=== PATIENT | female | born 1965 | race Caucasian/White ===

== ENCOUNTER 2023-11-21 07:43 | Outpatient (CLI) | payer MEDICARE, SELFPAY ==
--- NOTE | 2023-11-21 07:30 | RT.EKG_ITS ---
APPROVED REPORT Exam: Resting ECG Reason for Exam: afib Patient Location: O HR:112 bpm ECG Measurements Heart Rate 112 AXIS DE 126 P 61 QRSd 131 QRS 1 QT 346 T 146 QTc 473 Conclusion Sinus tachycardia...rate> 99 Probable left atrial enlargement...P >50mS, <-0.10mV V1 Left bundle branch block...QRSd>120, broad/notched R
== END 2023-11-21 07:44 | disposition home or self-care (01) ==
LOC: DI.CARD 07:44
PROVIDERS: PCP Family Medicine; Visit Provider Internal Medicine Cardiovascular Disease
DX: I25.10 Atherosclerotic heart disease of native coronary artery without angina pectoris
CPT/HCPCS: 93010

== ENCOUNTER → 2023-11-21 11:15 | Outpatient (BNVA) | payer MEDICARE, SELFPAY | PROVIDERS: PCP Family Medicine; Referring Provider Family Medicine; Visit Provider Internal Medicine Cardiovascular Disease | DX: I44.7 Left bundle-branch block, unspecified (principal); Z95.2 Presence of prosthetic heart valve; I48.20 Chronic atrial fibrillation, unspecified; I25.10 Atherosclerotic heart disease of native coronary artery without angina pectoris | CPT/HCPCS: 93005; 99203 ==

== ENCOUNTER 2023-11-28 07:08 | Emergency (ER) | payer MEDICARE, SELFPAY ==
[2023-11-28] VITALS (12 sets, daily range): BP systolic 121–150; BP diastolic 29–86; PULSE 81–114; RESP 4–37; TEMP 37.2; O2SAT 86–94
--- NOTE | 2023-11-28 07:00 | DI.RAD_ITS ---
Exam(s) XR PORTABLE CHEST AP EXAM: XR PORTABLE CHEST AP CLINICAL HISTORY: sob. TECHNIQUE: 2D digital imaging was performed. COMPARISON: No exams were available for comparison FINDINGS: Single AP portable view. Mild cardiomegaly and there is an aortic valve TAVR noted. Bilateral pulmonary edema pattern is evident. No large pleural effusions. IMPRESSION: Pulmonary edema. Cardiomegaly. Aortic valve TAVR DATA REPOSITORY: RADIATION DOSE DELIVERED:
--- NOTE | 2023-11-28 07:00 | RT.EKG_ITS ---
APPROVED REPORT Exam: Resting ECG Reason for Exam: SOB Patient Location: E HR:114 bpm ECG Measurements Heart Rate 114 AXIS [place] 129 P 97 QRSd 148 QRS 75 QT 359 T -79 QTc 494 Conclusion Sinus tachycardia...rate> 99 Left atrial enlargement...P, P'>60mS, <-0.15mV V1 IVCD, consider LBBB...QRSd>120, notch/slur R I aVL V5-6 ST elevation secondary to IVCD...Multiple VCG criteria Physician: LBBB, 4-5mm discordant elevation in V2 and 1mm concordant depression in V5 (but not V1-3). Review w/ [facility], does not meet abhia criterion
[2023-11-28] MEDS: methylPREDNISolone SUCC 125 MG VIAL IVP (07:30)
[2023-11-28] MEDS: Albuterol/Ipratropium 3 ML UPD VIAL 6 ML UPD (07:30)
[2023-11-28 07:33] LABS: HCT 34.4 % (36.0-46.0); HGB 11.1 g/dL (11.2-15.7); MCH 30.2 pg (27.0-33.0); MCHC 32.3 % (32.0-36.0); MCV 94 fL (80-95); MPV 11.5 fL (8.0-11.0); Platelet Count 297 10^3/uL (130-400); RBC 3.67 10^6/uL (3.93-5.22); RDW 14.7 % (11.7-14.6); RDW-SD 51.4 fL; WBC 14.67 10^3/uL (4.4-10.8)
--- NOTE | 2023-11-28 07:35 | W.ED.GENAD ---
Discharge Plan Disposition Patient Disposition: Transfer-Acute Inpatient Care Specific Acute Inpt Facility: [facility] Condition: Serious Discharge Details Clinical Impression: Congestive heart failure, Non-ST elevation [place] (NSTEMI), Acute respiratory distress, Acute exacerbation of chronic obstructive pulmonary disease Primary Care Provider: Gaudencio Scales ED Provider: Blaze Randall Home Meds and New Rx's Prescriptions: No Action metoprolol tartrate 25 mg tablet 25 mg PO BID aspirin [Adult Low Dose Aspirin] 81 mg tablet,delayed release (DR/EC) 81 mg PO DAILY Qty: 90 4RF amlodipine 10 mg tablet 10 mg PO DAILY Qty: 90 3RF atorvastatin 40 mg tablet 40 mg PO DAILY Qty: 90 3RF baclofen 10 mg tablet 5 mg PO BID Qty: 90 3RF furosemide 20 mg tablet 20 mg PO DAILY Qty: 90 3RF ondansetron HCl 4 mg tablet 8 mg PO DAILY PRN (Reason: nausea and vomiting) Qty: 90 0RF Eliquis 5 mg tablet 5 mg PO BID levothyroxine 100 mcg tablet 100 mcg PO DAILY famotidine 40 mg tablet 40 mg PO DAILY Hold Instructions: Home Medication placed on hold at Doctor's office Fish Oil 300-500 mg capsule 1 cap PO DAILY Patient Comments: Did not disclose exact type and dose ferrous sulfate 325 mg (65 mg iron) tablet,delayed release (DR/EC) 325 mg PO DAILY Patient Comments: Patient did not disclose exact dosage multivitamin Tablet 1 tab PO DAILY cholecalciferol (vitamin D3) 25 mcg (1,000 unit) capsule 25 mcg PO DAILY isosorbide dinitrate 30 mg tablet 30 mg PO DAILY Qty: 90 3RF ranolazine 500 mg tablet extended release 12 hr 500 mg PO BID Qty: 180 3RF omeprazole 40 mg capsule,delayed release(DR/EC) 40 mg PO DAILY Qty: 60 0RF oxycodone-acetaminophen 10-325 mg tablet 1 tab PO TID MDD 30 mg PRN (Reason: pain) Qty: 84 0RF quetiapine 100 mg tablet 100 mg PO QHS Qty: 90 3RF lamotrigine 100 mg tablet 100 mg PO BID Qty: 180 3RF HPI General Date/Time Provider Initiated Documentation: 11/28/23 07:11. HPI Narrative: 57-year-old female with a past medical history of bipolar disorder, GERD, atrial fibrillation on Eliquis, COPD not oxygen dependent, chronic kidney disease, hypertension, previous coronary artery disease with stents,TAVR, who presents today for evaluation of shortness of breath. Patient states that for the last 2 days she has had mild episodes of spitting up/vomiting. She states she is only been throwing up bile. However starting last night she got notably short of breath. She has taken an occasional inhaler puff, with no improvement of her symptoms. She denies any abdominal pain, but does admit to some back pain between her shoulders. She denies any tearing or ripping sensation. She denies any chest heaviness. She states that few she feels notably short of breath is unable to take a deep breath. She denies any significant cough otherwise aside for the mild occasional cough. She denies any sputum productivity. She denies any fever. She states that this does not feel like her previous heart attack when she had her stents. No other complaints at this time. No other modifying factors. Related Data Home Medications Medication Instructions Recorded Confirmed apixaban 5 mg tablet (Eliquis) 5 mg PO BID 10/03/23 11/28/23 famotidine 40 mg tablet 40 mg PO DAILY 10/03/23 11/28/23 ferrous sulfate 325 mg (65 mg 325 mg PO DAILY 10/03/23 11/28/23 iron) tablet,delayed release levothyroxine 100 mcg tablet 100 mcg PO DAILY 10/03/23 11/28/23 multivitamin 1 tab PO DAILY 10/03/23 11/28/23 omega-3 fatty acids-fish oil 300 1 cap PO DAILY 10/03/23 11/28/23 mg-500 mg capsule (Fish Oil) cholecalciferol (vitamin D3) 25 25 mcg PO DAILY 10/04/23 11/28/23 mcg (1,000 unit) capsule isosorbide dinitrate 30 mg tablet 30 mg PO DAILY #90 tabs 10/04/23 11/28/23 ranolazine 500 mg tablet,extended 500 mg PO BID #180 tabs 10/04/23 11/28/23 release,12 hr amlodipine 10 mg tablet 10 mg PO DAILY #90 tabs 10/27/23 11/28/23 atorvastatin 40 mg tablet 40 mg PO DAILY #90 tabs 10/27/23 11/28/23 baclofen 10 mg tablet 5 mg (1/2 x 10 mg) PO BID #90 tabs 10/27/23 11/28/23 furosemide 20 mg tablet 20 mg PO DAILY #90 tabs 10/27/23 11/28/23 ondansetron HCl 4 mg tablet 8 mg (2 x 4 mg) PO DAILY PRN 10/28/23 11/28/23 nausea and vomiting #90 tabs aspirin 81 mg tablet,delayed 81 mg PO DAILY #90 tabs 11/21/23 11/28/23 release (Adult Low Dose Aspirin) lamotrigine 100 mg tablet 100 mg PO BID #180 tabs 11/21/23 11/28/23 metoprolol tartrate 25 mg tablet 25 mg PO BID 11/21/23 11/28/23 omeprazole 40 mg capsule,delayed 40 mg PO DAILY #60 caps 11/21/23 11/28/23 release oxycodone-acetaminophen 10 mg-325 1 tab PO TID PRN pain #84 tabs 11/21/23 11/28/23 mg tablet quetiapine 100 mg tablet 100 mg PO QHS #90 tabs 11/21/23 11/28/23 Previous Rx's Medication Instructions Recorded isosorbide dinitrate 30 mg tablet 30 mg PO DAILY #90 tabs 10/04/23 ranolazine 500 mg tablet,extended 500 mg PO BID #180 tabs 10/04/23 release,12 hr amlodipine 10 mg tablet 10 mg PO DAILY #90 tabs 10/27/23 atorvastatin 40 mg tablet 40 mg PO DAILY #90 tabs 10/27/23 baclofen 10 mg tablet 5 mg (1/2 x 10 mg) PO BID #90 tabs 10/27/23 furosemide 20 mg tablet 20 mg PO DAILY #90 tabs 10/27/23 ondansetron HCl 4 mg tablet 8 mg (2 x 4 mg) PO DAILY PRN 10/28/23 nausea and vomiting #90 tabs aspirin 81 mg tablet,delayed 81 mg PO DAILY #90 tabs 11/21/23 release (Adult Low Dose Aspirin) lamotrigine 100 mg tablet 100 mg PO BID #180 tabs 11/21/23 omeprazole 40 mg capsule,delayed 40 mg PO DAILY #60 caps 11/21/23 release oxycodone-acetaminophen 10 mg-325 1 tab PO TID PRN pain #84 tabs 11/21/23 mg tablet quetiapine 100 mg tablet 100 mg PO QHS #90 tabs 11/21/23 Allergies Allergy/AdvReac Type Severity Reaction Status Date / Time No Known Allergies Allergy Verified 11/28/23 07:40 General Stated Complaint: RespSymp AYE: 2 Review of Systems All systems reviewed & are unremarkable except as noted in HPI and below Exam Narrative Exam Narrative: 1.Const: Well-nourished, Well-developed, appearing stated age 2.Eyes: PERRL, no conjunctival injection, and symmetrical lids. 3.ENT: Atraumatic external nose and ears. Dry MM. Neck: Symmetric, trachea midline, No thyromegaly. 4.CVS: +S1/S2, No murmurs or gallops. Peripheral pulses 2+ and equal in all extremities. Brisk capillary refill in all extremities. 5.RESP: Labored breathing, 2-3 word sentences, notable wheezes throughout. No rhonchi that I can auscultate. 6.GI: Soft, Nontender/Nondistended, No hepatosplenomegaly. No guarding or rebound. 7.MSK: Normocephalic/Atraumatic, Extremities w/o deformity or ttp No cyanosis or clubbing, Normal movement of all extremities. Trace pitting edema. 8.Skin: Warm, Dry. No rashes or lesions. 9.Neuro: headend technician II-XII grossly intact. Sensation grossly intact, no focal neurologic deficits. 10.Psych: (AAO) x3. Appropriate mood and affect Course Vital Signs Vital signs: Vital Signs Pulse 114 H 11/28/23 07:09 Respiratory Rate 24 11/28/23 07:09 Blood Pressure 146/29 H 11/28/23 07:09 Pulse Oximetry 86 L 11/28/23 07:09 Temperature 37.2 C 11/28/23 07:34 Temperature Source Axillary 11/28/23 07:34 Pulse 113 H 11/28/23 07:30 Respiratory Rate 32 H 11/28/23 07:30 Respiratory Effort Short of Breath, Labored, Accessory Muscle Use 11/28/23 07:31 Blood Pressure 146/29 H 11/28/23 07:09 Blood Pressure Position Sitting 11/28/23 07:09 Pulse Oximetry 94 11/28/23 07:30 Oxygen Delivery Method OxyMask 11/28/23 07:09 Fraction of Inspired Oxygen (FIO2) 45 11/28/23 07:30 Medical Decision Making 57-year-old female with a past medical history of bipolar disorder, GERD, atrial fibrillation on Eliquis, COPD not oxygen dependent, chronic kidney disease, hypertension, previous coronary artery disease with stents,TAVR, who presents today for evaluation of shortness of breath. Patient states that for the last 2 days she has had mild episodes of spitting up/vomiting. She states she is only been throwing up bile. However starting last night she got notably short of breath. She has taken an occasional inhaler puff, with no improvement of her symptoms. She denies any abdominal pain, but does admit to some back pain between her shoulders. She denies any tearing or ripping sensation. She denies any chest heaviness. She states that few she feels notably short of breath is unable to take a deep breath. She denies any significant cough otherwise aside for the mild occasional cough. She denies any sputum productivity. She denies any fever. She states that this does not feel like her previous heart attack when she had her stents. No other complaints at this time. No other modifying factors. Exam demonstrates a notably tachypneic patient, mild to moderate respiratory distress, hypoxic in the 70s to 80s on room air. Diffuse wheezes throughout. Notable concern for COPD exacerbation and acute respiratory distress, however differential also includes cardiac etiology. Volume overload potentially likely based on presentation. PE unlikely given her Eliquis use. She states that she has not missed any doses. Will give breathing treatments, Solu-Medrol, get a chest x-ray, evaluate for concerning etiologies, monitor closely and reassess. 7:30 AM After brief intervention with breathing treatments and 10 L via nasal cannula patient had no improvement of her symptoms. She remained hypoxic in the mid 80s. BiPAP was started, and the patient had notable improvement with that. She is currently 95% on BiPAP at 45% and 10/5. EKG shows left bundle branch block which is not new, however the morphology appears to be atypical compared to her prior. She has [address] elevation in V2, which does not appear to fully meet Sgarbossa's criteria, but is concerning. She has concordant depression in V5, however this is not in the isolated leads of V1 through V3. With this atypical morphology, we will reach out to cardiology for further assessment of the EKG findings. Will continue to manage the patient aggressively. 7:45 AM Discussed the case with [facility] cardiology Dr. Almonte, upon review of the EKG, it is felt that it does not meet Sgarbossa criteria. 8:24 AM Chest x-ray has returned and demonstrates notable pulmonary edema, bedside POCUS was performed and shows notably diminished ejection fraction around 15 to 20%. 20 mg of IV Lasix were administered. Review of prior ejection fraction shows evidence of a 65% EF from April 2023. This appears to demonstrate notable diminishment. Troponin has returned and he is elevated at 6000. proBNP high at 7000. Concern for ACS. Rediscussed the case with [facility], they recommend transfer for intervention. Patient will be given 325 aspirin, 600 of Plavix, and will be started on heparin. Patient now describes very minimal slight right-sided chest discomfort. We will give low-dose nitro. Patient will be transferred for further management. Patient has a notable improvement of respiratory status after BiPAP administration. Oxygenation is still in the mid to high 90s. She feels much better and no longer feels respiratory distress. I have extensively reviewed the treatment plan with the patient. I have addressed all patient concerns at this time. I have also discussed the plan with the admitting physician and they agree with the current assessment and plan and have agreed to assume responsibility for the patient. All parties demonstrate verbal understanding and agreement with our assessment and plan at this time. The documentation in this chart was dictated using [employer] dictation software. Please excuse any dictation errors. At time of transfer the patient was reassessed and continued to demonstrate No signs of acute respiratory distress requiring intubation, hemodynamic instability requiring pressor support, or rapidly declining mental status. FINDINGS: Single AP portable view. Mild cardiomegaly and there is an aortic valve TAVR noted. Bilateral pulmonary edema pattern is evident. No large pleural effusions. IMPRESSION: Pulmonary edema. Cardiomegaly. Aortic valve TAVR Quality:SDOH Health Related Social Needs: No Data to Display Critical Care Time Critical Care Time Critical Care Time: Yes Total Critical Care Time: 75 Attestation: Upon my evaluation, this patient had a high probability of imminent or life-threatening deterioration, which required my direct attention, intervention, and personal management. I have personally provided 75 minutes of critical care time exclusive of time spent on separately billable procedures. Time includes review of laboratory data, radiology results, discussion with consultants, and monitoring for potential decompensation. Interventions were performed as documented. FORMERLY [facility], [facility] All Active Problems (Updated 11/28/23 @ 08:28 by Blaze Randall DO) Acute exacerbation of chronic obstructive pulmonary disease (Acute) Acute respiratory distress (Acute) Non-ST elevation [place] (NSTEMI) (Acute) Congestive heart failure (Chronic) Bipolar 1 disorder (Acute) GERD (gastroesophageal reflux disease) (Chronic) Family history of breast cancer in first degree relative (Chronic) Sister Family history of coronary artery disease in brother (Acute) Ex-smoker for more than 1 year (Acute) Bipolar disorder (Acute) Hypertension (Chronic) Iron deficiency (Acute) Hypothyroidism (Chronic) Gout (Chronic) Atrial fibrillation (Chronic) Peripheral arterial disease (Acute) Coronary artery disease (Chronic) 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 (Acute) Other cervical disc displacement at C5-C6 level (Acute) Cervicalgia (Acute) 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) use of 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 analgesic (Chronic) Atrial fibrillation, chronic (Chronic) Chronic kidney disease, stage 4 (severe) (Chronic) Essential (primary) hypertension (Chronic) Medical History Hodgkin disease Surgical History S/P TAVR (transcatheter aortic valve replacement) Social History Smoking/Tobacco Use Status: Former Tobacco Use tobacco type: cigarettes Tobacco: How many years used: 30 Smoking risk assessment performed?: Yes Alcohol Intake: never Drug use: Never Adopted: No Caregiver/Support person: No Foster care: No Housing: apartment Number of Children: 2 number of grandchildren: 8 Communication Needs: None Education Level: middle school current occupation: Disabled Pets and animals: No Sexually active: No Current gender identity: female What is your relationship status?: How often do you talk on the phone with friends or family?: three or more times per week How often do you get together with friends or relatives?: once per week Do you belong to any clubs or organized social groups?: no Panel score (0-1 are the most socially isolated patients): 1 What type of physical activity do you participate in: walking Duration: 15-30 minutes/day Frequency: 3-4 times per week Josefa/Methodist: Confucianist Special josefa needs: No Seatbelt use: always Helmet use: No (Sometimes - Never) Drive intox or ride w/intox cdl 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
[2023-11-28 07:39] LABS: BE (Venous) -6 mmol/L (-2-3); HCO3 (Venous) 21 mmol/L (23-28); O2 Sat (Venous) 77 %; TCO2 (Venous) 22 mmol/L (24-29); pCO2 (Venous) 40 mmHg (41-51); pH (Venous) 7.32 (7.31-7.41); pO2 (Venous) 45 mmHg
[2023-11-28 07:45] LABS: INR 1.1 (0.9-1.1); Prothrombin Time 10.6 sec (9.1-11.1)
--- NOTE | 2023-11-28 07:45 | RT.EKG_ITS ---
APPROVED REPORT Exam: Resting ECG Reason for Exam: sob Patient Location: E HR:96 bpm ECG Measurements Heart Rate 96 AXIS [place] 157 P 65 QRSd 144 QRS 59 QT 419 T -45 QTc 529 Conclusion Sinus rhythm...normal P axis, V-rate 60- 99 Probable left atrial enlargement...P >50mS, <-0.10mV V1 Left bundle branch block...QRSd>120, broad/notched R ST elevation secondary to IVCD...Multiple VCG criteria Physician:LBBB, no stemi, does not meet sgarbossa
[2023-11-28 07:49] LABS: Absolute Neutrophil Count 11.44 10^3/uL (1.2-6.7)
[2023-11-28 07:50] LABS: Absolute Lymphocyte Count 2.49 10^3/uL (1.2-3.4); Absolute Monocyte Count 0.73 10^3/uL (0.1-0.8); Atypical Lymphocytes % 8; Diff Comment Manual Differential; RBC Morphology Normal
[2023-11-28] MEDS: Furosemide 20 MG/2 ML VIAL IVP (07:51)
[2023-11-28 08:03] LABS: ALT 24 U/L (14-59); AST 48 U/L (15-37); Albumin 3.4 g/dL (3.4-5.0); Alkaline Phosphatase 121 U/L (46-116); Anion Gap 14.1 mmol/L (3-11); BUN 16 mg/dL (7-18); Bilirubin, Total 0.9 mg/dL (0.2-1.0); CO2 22.9 mmol/L (21.0-32.0); CREATININE 1.5 mg/dL (0.55-1.02); Calcium 9.1 mg/dL (8.5-10.1); Chloride 103 mmol/L (98-107); Estimated GFR 39.89 (mL/min/1.73m2); Glucose 156 mg/dL (74-106); Lipase < 10 U/L (16-77); NT-proBNP 7180 pg/mL (<300); Potassium 3.5 mmol/L (3.5-5.1); Sodium 140 mmol/L (136-145); Total Protein 7.7 g/dL (6.4-8.2)
[2023-11-28 08:04] LABS: Troponin I 6159 ng/L (< or =60)
[2023-11-28 08:13] LABS: COVID-19 PCR Negative (Negative); Influenza A PCR Negative (Negative); Influenza B PCR Negative (Negative); RSV PCR Negative (Negative)
[2023-11-28 08:15] LABS: Source Nasopharynx
[2023-11-28] MEDS: Aspirin 81 MG CHEW 324 MG CH (08:19)
[2023-11-28] MEDS: Clopidogrel 300 MG TAB 600 MG PO (08:19)
[2023-11-28] MEDS: Heparin in 0.45% NaCl 25,000 UNIT/250 ML BAG 0.12 UNIT IV (08:25)
[2023-11-28] MEDS: nitroGLYcerin 0.4 MG TAB SL (08:34)
--- NOTE | 2023-11-28 08:50 | DI.VRAD_ITS ---
PROCEDURE INFORMATION: Exam: XR Chest Exam date and time: 11/28/2023 7:38 AM Age: 57 years old Clinical indication: Shortness of breath; Patient HX: SOB TECHNIQUE: Imaging protocol: Radiologic exam of the chest. Views: 1 view. COMPARISON: No relevant prior studies available. FINDINGS: Lungs: Pulmonary vascular congestion. Increased interstitial markings throughout both lungs. More confluent densities at the lung bases bilaterally. Pleural spaces: Possible left pleural effusion. Heart/Mediastinum: Enlarged cardiac silhouette. Vasculature: Arterial calcifications. Bones/joints: Grossly unremarkable. IMPRESSION: Enlarged cardiac silhouette with pulmonary vascular congestion and increased pulmonary markings suggesting pulmonary edema. More confluent bibasilar opacities may represent atelectasis or infection. Follow-up as clinically warranted. Dictated and Authenticated by: Iqra Morris MD. Ordering:TEENA Thakur MD
== END 2023-11-28 09:27 | disposition short-term general hospital (02) ==
PROVIDERS: Emergency Provider Student in an Organized Health Care Education/Training Program; PCP Family Medicine
DX: I21.4 Non-ST elevation (NSTEMI) myocardial infarction (principal); I13.0 Hypertensive heart and chronic kidney disease with heart failure and stage 1 through stage 4 chronic kidney disease, or unspecified chronic kidney disease; I50.9 Heart failure, unspecified; N18.4 Chronic kidney disease, stage 4 (severe); I25.10 Atherosclerotic heart disease of native coronary artery without angina pectoris; R94.31 Abnormal electrocardiogram [ECG] [EKG]; I44.7 Left bundle-branch block, unspecified; R06.03 Acute respiratory distress; J44.1 Chronic obstructive pulmonary disease with (acute) exacerbation; Z95.2 Presence of prosthetic heart valve; Z95.5 Presence of coronary angioplasty implant and graft; Z11.52 Encounter for screening for COVID-19; Z79.82 Long term (current) use of aspirin; Z79.01 Long term (current) use of anticoagulants; I48.91 Unspecified atrial fibrillation
CPT/HCPCS: 80053; 82805; 83690; 87637; 93005; 93308; 94640; 96374; 99285; 71045; 83880; 84484; 85025; 85610; 85730; 93010; J1644; J1941; J2930; J7620

== ENCOUNTER → 2024-01-13 09:57 | Outpatient (BNVA) | payer MEDICARE, SELFPAY | PROVIDERS: PCP Family Medicine; Referring Provider Family Medicine; Visit Provider Internal Medicine Cardiovascular Disease | DX: I48.0 Paroxysmal atrial fibrillation (principal); Z95.5 Presence of coronary angioplasty implant and graft; Z95.2 Presence of prosthetic heart valve | CPT/HCPCS: 99213 ==

== ENCOUNTER → 2024-01-17 03:48 | Outpatient (CLI) | payer MEDICARE, MEDICAID, SELFPAY ==
--- NOTE | 2024-01-17 08:15 | DI.MAMMO_ITS ---
Exam(s) MAMMO SCREENING EXAM: MAMMO SCREENING CLINICAL HISTORY: screening,FAMILY H/O BREAST CA,Z12.39 TECHNIQUE: Bilateral full field digital CC and MLO mammographic images were obtained with 3D tomosyn thesis and utilizing computer aided detection (CAD). COMPARISON: Available for comparison. FINDINGS: Masses/Architectural Distortion: There is a new 1.1 cm nodule in the upper outer quadrant of the left breast. Microcalcifications: No suspicious pleomorphic-type are seen. Skin Thickening/Nipple Retraction: None. IMPRESSION: 1. New 1.1 cm nodule in the upper outer quadrant of the left breast. 2. This should be further evaluated with spot compression view. Ultrasound should also be obtained a t that time. BI-RADS Category 0 - Assessment Incomplete: Need additional imaging evaluation Breast Density - Category B - Scattered areas of fibroglandular density Breast density category C or D implies that the patient has dense breast tissue. Dense breast tissue is very common and is not abnormal but dense breast tissue can make it harder to find cancer on a ma mmogram. Also, dense breast tissue may increase their breast cancer risk. This information about the result of the mammogram report was provided to the patient to raise their awareness. Use this report when you speak with the patient about their risks for breast cancer, which includes their family hist ory. At that time, you may recommend for more screening tests (Ultrasound or MRI) as they might be us eful based on their risk. A negative radiographic report should not delay biopsy if a dominant or clinically suspicious mass is present. Up to ten percent of cancers are not identified on mammography. A negative report may reinforce clinical impression. Adenosis and dense breasts may obscure an underlying neoplasm. False positive reports average 6 to 10%. Patient will receive a letter notifying them of these results.
--- NOTE | 2024-01-17 17:27 | DI.RAD_ITS ---
Exam(s) XR CERVICAL SPINE COMP 4-5V EXAM: XR CERVICAL SPINE COMP 4-5V CLINICAL HISTORY: OTHER CERVICAL DISC DISPLACEMENT, C 6-7,M50.223. TECHNIQUE: 2D digital imaging was performed. COMPARISON: No exams were available for comparison FINDINGS: Five views. There is no evidence of fracture or listhesis. There is gradual flexion of the cervical spine. Ther e is mild disc space narrowing at C6-7 level. No cervical ribs seen. IMPRESSION: Cervical spine appears to be in gradual flexion. Mild-moderate chronic type disc space narrowing evident at the C6-7 level DATA REPOSITORY: RADIATION DOSE DELIVERED:
== END ==
PROVIDERS: PCP Family Medicine; Visit Provider Family Medicine
DX: Z12.31 Encounter for screening mammogram for malignant neoplasm of breast (principal); M50.123 Cervical disc disorder at C6-C7 level with radiculopathy
CPT/HCPCS: 77063; 77067; 72050

== ENCOUNTER 2024-01-31 05:14 | Outpatient (CLI) | payer MEDICARE, MEDICAID, SELFPAY ==
[2024-01-31 12:05] LABS: Abs Immature Grans 0.01 10^3/uL (0.0-0.06); Absolute Basophil Count 0.04 10^3/uL (0.0-0.2); Absolute Eosinophil Count 0.21 10^3/uL (0.0-0.7); Absolute Lymphocyte Count 4.01 10^3/uL (1.2-3.4); Absolute Monocyte Count 0.68 10^3/uL (0.1-0.8); Absolute Neutrophil Count 3.51 10^3/uL (1.2-6.7); Basophils % 0.5 %; Eosinophils % 2.5 %; HCT 35.1 % (36.0-46.0); HGB 11.3 g/dL (11.2-15.7); Immature Grans % 0.1 %; Lymphocytes % 47.4 %; MCH 30.1 pg (27.0-33.0); MCHC 32.2 % (32.0-36.0); MCV 94 fL (80-95); MPV 11.5 fL (8.0-11.0); Neutrophils % 41.5 %; Platelet Count 315 10^3/uL (130-400); RBC 3.75 10^6/uL (3.93-5.22); RDW 14.4 % (11.7-14.6); RDW-SD 49.6 fL; WBC 8.46 10^3/uL (4.4-10.8)
[2024-01-31 12:23] LABS: ALT 33 U/L (14-59); AST 21 U/L (15-37); Albumin 3.2 g/dL (3.4-5.0); Alkaline Phosphatase 121 U/L (46-116); Anion Gap 7.8 mmol/L (3-11); BUN 21 mg/dL (7-18); Bilirubin, Total 0.4 mg/dL (0.2-1.0); CO2 29.2 mmol/L (21.0-32.0); CREATININE 1.7 mg/dL (0.55-1.02); Calcium 8.7 mg/dL (8.5-10.1); Chloride 107 mmol/L (98-107); Estimated GFR 34.12 (mL/min/1.73m2); Glucose 110 mg/dL (74-106); PHOSPHORUS 4.9 mg/dL (2.6-4.7); Potassium 4.6 mmol/L (3.5-5.1); Sodium 144 mmol/L (136-145); TSH (W/Ref FT4) 6.02 uIU/mL (0.36-3.74); Total Protein 6.8 g/dL (6.4-8.2); Uric Acid 6.8 mg/dL (2.6-6.0)
[2024-01-31 12:44] LABS: FREE T4 0.73 ng/dL (0.76-1.46)
== END 2024-01-31 05:15 | disposition home or self-care (01) ==
LOC: LBO 05:15
PROVIDERS: PCP Family Medicine; Referring Provider Family Medicine; Visit Provider Family Medicine
DX: E03.9 Hypothyroidism, unspecified (principal); I25.10 Atherosclerotic heart disease of native coronary artery without angina pectoris; M10.9 Gout, unspecified; N18.4 Chronic kidney disease, stage 4 (severe)
CPT/HCPCS: 36415; 80053; 83735; 84100; 84439; 84443; 84550; 85025

== ENCOUNTER → 2024-02-03 00:20 | Outpatient (CLI) | payer MEDICARE, MEDICAID, SELFPAY ==
--- NOTE | 2024-02-03 | DI.MAMMO_ITS ---
Exam(s) MG MAMMO SCREEN CALL BACK UNI US BREAST LT LIMITED EXAM: MG MAMMO SCREEN CALL BACK UNI and U/S breast LT limited CLINICAL HISTORY: F/U MAMMO, R92.8,NEW 1.1 CM NODULE, UOQ LT BREAST. TECHNIQUE: Craniocaudal and mediolateral oblique Full Field Digital Mammography views of the left br east with Computer Aided Diagnosis followed by Tomosynthesis and left breast ultrasound. COMPARISON: Comparison is made with prior examinations. FINDINGS: Mammography/Tomosynthesis: Masses/Architectural Distortion: The nodular density in the upper-outer quadrant of persists on the a dditional images. Microcalcifictions: No suspicious pleomorphic-type are seen. Skin Thickening/Nipple Retraction: None. Limited left breast US: Echotexture: Normal appearance of the glandular tissue. Shadowing: No suspicious foci. Cyst: None. Solid lesions: There is a spiculated hypoechoic mass at the 1 o'clock position of the left breast 7 c m from the nipple. This corresponds to the mammographic abnormality. Sonographically benign-appeari ng lymph nodes are seen in the left axilla. Ductal dilation: None. IMPRESSION: 1. Findings suspicious for malignancy with a 9 mm mass at of the left breast 7 cm from the nipple. 2. Biopsy is recommended. 3. The findings were discussed with the patient on the date of the examination. Findings were discus sed with Dr. Scales on 02/03/2024. BI-RADS Category 5 - Highly Suggestive of Malignancy: Biopsy recommended Breast Density - Category B - Scattered areas of fibroglandular density Breast density Category C or D implies that the patient has dense breast tissue. Dense breast tissue can make it harder to find cancer on a mammogram. Dense breast tissue is also associated with an incr eased risk of breast cancer. This information about the result of the mammogram report was provided to the patient to raise their awareness. Use this report when you speak with the patient about their risks for breast cancer, which includes their family history. At that time, you may recommend additional screening tests (Ultrasoun d or MRI) as these tests may add significant information. A negative radiographic report should not delay biopsy if a dominant or clinically suspicious mass is present. Up to ten percent of cancers are not identified on mammography. A negative report may reinforce clinical impression. Adenosis and dense breasts may obscure an underlying neoplasm. False positive reports average 6 to 10%. Patient will receive a letter notifying them of these results.
== END ==
PROVIDERS: PCP Family Medicine; Visit Provider Family Medicine
DX: R92.8 Other abnormal and inconclusive findings on diagnostic imaging of breast (principal); Z12.31 Encounter for screening mammogram for malignant neoplasm of breast
CPT/HCPCS: 76642; 77063; 77067

== ENCOUNTER → 2024-02-10 01:03 | Outpatient (CLI) | payer MEDICARE, MEDICAID, SELFPAY ==
--- NOTE | 2024-02-10 | DI.US_ITS ---
Exam(s) US NEEDLE LOCAL BREAST WO RAD EXAM: US NEEDLE LOCAL BREAST WO RAD CLINICAL HISTORY: LT BREAST MASS. Right Breast. Left Breast. TECHNIQUE: Ultrasound was provided for Dr. Grayson Echeverria performing left breast biopsy. . COMPARISON: MG MG MAMMO SCREEN CALL BACK UNI from 02/03/2024 US US BREAST LT LIMITED from 02/03/2024 FINDINGS: The mass is again identified in the 1 o'clock position 6 cm from the nipple. Images show a needle e ntering into the mass. Please see procedure note for details. IMPRESSION: Successful Ultrasound-guided Breast Biopsy.
--- NOTE | 2024-02-10 12:41 | BREAST_PTH ---
PATIENT: Oksana Betancourt LOC: [facility] U#:[id number] AGE/SX: 59/F ROOM: RE02/10/[address]: Grayson Echeverria MD : [id number] BED: DIS: SPEC #: [id number] RECD: 02/10/24 13:19 STATUS: CRISTY REQ #: [id number] DOTTIE: 02/10/24 12:[address]: Grayson Echeverria DEPT: Surgical Specimen RECD BY: Carmel Moore ENTERED: 02/10/24 13:20 SP TYPE: Breast OTHR DR: Gaudencio Scales DO Tissues: 1 - BREAST BX NEEDLE Procedures: GROSS AND MICRO LEVEL 4 [id number] IPEX ESTROGEN/PROGESTERONE RECEPTOR IPEX STAIN Comments:
--- NOTE | 2024-02-10 17:55 | OPPNE_ITS ---
Date of service: 02/10/24 Time of Service: 12:45 Procedure Note Date of procedure: 02/10/24 Procedure: Left breast core needle biopsy Surgeon/Proceduralist/Physician: Grayson Echeverria Procedure Diagnosis: Left breast mass Procedure Indications: Oksana is a 58-year-old woman with a mass identified by ultrasonography in the left breast. Features were suspicious, and she was advised to undergo biopsy for tissue diagnosis Procedure Description: I met Oksaan in the ultrasound suite, and reviewed the indications for the procedure. We talked about the nature of the procedure, and I explained the risks and benefits. She had the opportunity to ask any questions, and I think she was able to understand the nature of the procedure and provide informed consent. Next, the missile tracking technician performed a limited ultrasound of the left breast identifying the lesion previously seen. I then prepped the area adjacent to the probe, and anesthetize the skin and trajectory of the local anesthetic. I then made a small skin incision with an 11 blade scalpel, and introduced a 22 mm Bard core needle biopsy device. Under the real-time guidance of the ultrasound, I advanced the needle up to the periphery of the mass. I then took 3 passes with the biopsy device obtaining 3 good core specimens. A radiopaque clip was then placed into the center of the mass. Some gentle pressure was held over the biopsy site, and a Band-Aid was used to dress the percutaneous access site. We reviewed postprocedural expectations and care of the wound.
== END ==
PROVIDERS: PCP Family Medicine; Visit Provider Surgery
DX: C50.812 Malignant neoplasm of overlapping sites of left female breast (principal); N63.20 Unspecified lump in the left breast, unspecified quadrant
CPT/HCPCS: 19083; 19084; 76942; 88305; 88360

== ENCOUNTER 2024-03-26 22:06 | Emergency (ER) | payer MEDICARE, MEDICAID, SELFPAY ==
[2024-03-26 22:21] VITALS: BP 178/76; PULSE 90; RESP 22; TEMP 37.6; O2SAT 96
--- NOTE | 2024-03-26 22:21 | ED.GENADUL_ITS ---
Discharge Plan Disposition Patient Disposition: Home Condition: Good Discharge Details Clinical Impression: Bleeding Primary Care Provider: Gaudencio Scales ED Provider: Allen Lehman [place] Meds and New Rx's Prescriptions: Continued baclofen 10 mg tablet 5 mg PO BID Qty: 90 3RF ondansetron HCl 4 mg tablet 8 mg PO DAILY PRN (Reason: nausea and vomiting) Qty: 90 0RF furosemide 20 mg tablet 20 mg PO DAILY PRN Rx Instructions: Take as needed for weight gain, SOB, volume overload losartan 25 mg tablet 25 mg PO DAILY Qty: 90 3RF oxycodone-acetaminophen 10-325 mg tablet 1 tab PO Q8H MDD 30 mg PRN (Reason: pain) Qty: 84 0RF oxycodone-acetaminophen 10-325 mg tablet 1 tab PO TID MDD 30 mg PRN (Reason: pain) Qty: 84 0RF naloxone [Narcan] 4 mg/actuation spray,non-aerosol 4 mg intranasal Q2M PRN (Reason: opioid overdose) Qty: 2 0RF Rx Instructions: spray 1 dose into ONE nostril; alternate nostrils w each dose until help arrives famotidine 40 mg tablet 40 mg PO DAILY Hold Instructions: Home Medication placed on hold at Doctor's office Fish Oil 300-500 mg capsule 1 cap PO DAILY Patient Comments: Did not disclose exact type and dose ferrous sulfate 325 mg (65 mg iron) tablet,delayed release (DR/EC) 325 mg PO DAILY Patient Comments: Patient did not disclose exact dosage multivitamin Tablet 1 tab PO DAILY cholecalciferol (vitamin D3) 25 mcg (1,000 unit) capsule 25 mcg PO DAILY quetiapine 100 mg tablet 100 mg PO QHS Qty: 90 3RF Hold Instructions: Changed by [facility] Psychiatry lamotrigine 100 mg tablet 100 mg PO BID Qty: 180 3RF clopidogrel 75 mg tablet 75 mg PO DAILY Patient Comments: Take for 12 months. Stop 11/30/2024 ipratropium-albuterol 0.5 mg-3 mg(2.5 mg base)/3 mL solution for nebulization 3 ml inhalation Q4H PRN metoprolol succinate 50 mg tablet extended release 24 hr 50 mg PO BID nitroglycerin 0.4 mg tablet, sublingual 0.4 mg sublingual Q5M PRN Rx Instructions: do not exceed 3 doses per episode atorvastatin 80 mg tablet 80 mg PO DAILY aspirin [Adult Low Dose Aspirin] 81 mg tablet,delayed release (DR/EC) 81 mg PO DAILY Qty: 90 4RF Rx Instructions: Take ASA for 1 month until 01/01/2024 then stop for 11 months, the restart after Clopidogrel is stopped. PER [facility] Cardiology discharge on 12/03/2023 Eliquis 5 mg tablet 5 mg PO BID Qty: 180 3RF levothyroxine 100 mcg tablet 100 mcg PO DAILY Qty: 90 3RF omeprazole 40 mg capsule,delayed release(DR/EC) See Rx Instructions .ROUTE .COMPLEX Qty: 90 3RF Dose Instruction: TAKE 1 CAPSULE BY MOUTH DAILY Rx Instructions: TAKE 1 CAPSULE BY MOUTH DAILY hydroxyzine HCl 25 mg tablet 25 mg PO TID PRN (Reason: anxiety) Qty: 90 3RF quetiapine 50 mg tablet 150 mg PO QHS Rx Instructions: May take up 200 mg QHS, if needed for sleep. quetiapine 25 mg tablet 12.5 mg PO DAILY PRN (Reason: anxiety) Rx Instructions: May take up to 1 full tablet Discharge Instructions Instructions: Bleeding After Surgery Additional Instructions: You were seen after continued bleeding status post-biopsy earlier today. I have placed an absorbable suture and Surgicel dressing. You may remove the dressing tomorrow. The suture will dissolve over time. Keep your other scheduled appointments. Contact the physician who did the procedure today to notify them of the continued bleeding. Return to ED for any persistent heavy bleeding, increasing pain or swelling in the breast, other concerns. HPI General Mode of arrival: ambulatory . Date/Time Provider Initiated Documentation: 03/26/24 22:21 . Limitations to Documentation: no limitations . Information obtained by: patient . HPI Narrative: Patient presents to ED with bleeding from a biopsy site of the left breast that was done at [facility] earlier today. Patient is on anticoagulation and antiplatelet medication. This was not stopped before the procedure. She has been constantly oozing and bleeding since coming home. She has been applying pressure and using various dressings for hours with continued bleeding. She now presents to ED for evaluation. Related Data Home Medications Medication Instructions Recorded Confirmed famotidine 40 mg tablet 40 mg PO DAILY 10/03/23 03/26/24 ferrous sulfate 325 mg (65 mg 325 mg PO DAILY 10/03/23 03/26/24 iron) tablet,delayed release multivitamin 1 tab PO DAILY 10/03/23 03/26/24 omega-3 fatty acids-fish oil 300 1 cap PO DAILY 10/03/23 03/26/24 mg-500 mg capsule (Fish Oil) cholecalciferol (vitamin D3) 25 25 mcg PO DAILY 10/04/23 03/26/24 mcg (1,000 unit) capsule baclofen 10 mg tablet 5 mg (1/2 x 10 mg) PO BID #90 tabs 10/27/23 03/26/24 ondansetron HCl 4 mg tablet 8 mg (2 x 4 mg) PO DAILY PRN 10/28/23 03/26/24 nausea and vomiting #90 tabs lamotrigine 100 mg tablet 100 mg PO BID #180 tabs 11/21/23 03/26/24 quetiapine 100 mg tablet 100 mg PO QHS #90 tabs 11/21/23 03/26/24 aspirin 81 mg tablet,delayed 81 mg PO DAILY #90 tabs 12/07/23 03/26/24 release (Adult Low Dose Aspirin) atorvastatin 80 mg tablet 80 mg PO DAILY 12/07/23 03/26/24 clopidogrel 75 mg tablet 75 mg PO DAILY 12/07/23 03/26/24 ipratropium 0.5 mg-albuterol 3 mg 3 ml inhalation Q4H PRN 12/07/23 03/26/24 (2.5 mg base)/3 mL nebulization soln metoprolol succinate 50 mg 50 mg PO BID 12/07/23 03/26/24 tablet,extended release 24 hr nitroglycerin 0.4 mg sublingual 0.4 mg sublingual Q5M PRN 12/07/23 03/26/24 tablet furosemide 20 mg tablet 20 mg PO DAILY PRN 12/08/23 03/26/24 losartan 25 mg tablet 25 mg PO DAILY #90 tabs 12/09/23 03/26/24 apixaban 5 mg tablet (Eliquis) 5 mg PO BID #180 tabs 12/27/23 03/26/24 levothyroxine 100 mcg tablet 100 mcg PO DAILY #90 tabs 12/27/23 03/26/24 naloxone 4 mg/actuation nasal 4 mg intranasal Q2M PRN opioid 02/14/24 03/26/24 spray (Narcan) overdose #2 ea oxycodone-acetaminophen 10 mg-325 1 tab PO Q8H PRN pain #84 tabs 02/14/24 03/26/24 mg tablet oxycodone-acetaminophen 10 mg-325 1 tab PO TID PRN pain #84 tabs 02/14/24 03/26/24 mg tablet omeprazole 40 mg capsule,delayed See Rx Instructions .Route 02/16/24 03/26/24 release .COMPLEX #90 caps hydroxyzine HCl 25 mg tablet 25 mg PO TID PRN anxiety #90 tabs 02/24/24 03/26/24 quetiapine 25 mg tablet 12.5 mg PO DAILY PRN anxiety 03/15/24 03/26/24 quetiapine 50 mg tablet 150 mg PO QHS Sleep; anxiety 03/15/24 03/26/24 Previous Rx's Medication Instructions Recorded baclofen 10 mg tablet 5 mg (1/2 x 10 mg) PO BID #90 tabs 10/27/23 ondansetron HCl 4 mg tablet 8 mg (2 x 4 mg) PO DAILY PRN 10/28/23 nausea and vomiting #90 tabs lamotrigine 100 mg tablet 100 mg PO BID #180 tabs 11/21/23 quetiapine 100 mg tablet 100 mg PO QHS #90 tabs 11/21/23 aspirin 81 mg tablet,delayed 81 mg PO DAILY #90 tabs 12/07/23 release (Adult Low Dose Aspirin) losartan 25 mg tablet 25 mg PO DAILY #90 tabs 12/09/23 apixaban 5 mg tablet (Eliquis) 5 mg PO BID #180 tabs 12/27/23 levothyroxine 100 mcg tablet 100 mcg PO DAILY #90 tabs 12/27/23 naloxone 4 mg/actuation nasal 4 mg intranasal Q2M PRN opioid 02/14/24 spray (Narcan) overdose #2 ea oxycodone-acetaminophen 10 mg-325 1 tab PO Q8H PRN pain #84 tabs 02/14/24 mg tablet oxycodone-acetaminophen 10 mg-325 1 tab PO TID PRN pain #84 tabs 02/14/24 mg tablet omeprazole 40 mg capsule,delayed See Rx Instructions .Route 02/16/24 release .COMPLEX #90 caps hydroxyzine HCl 25 mg tablet 25 mg PO TID PRN anxiety #90 tabs 02/24/24 Allergies Allergy/AdvReac Type Severity Reaction Status Date / Time No Known Allergies Allergy Verified 03/26/24 22:24 General AYE: 2 Review of Systems Narrative: Per HPI Exam Narrative Exam Narrative: Const: WDWN in NAD. VS per triage. HEENT: NC/AT. Normal facial exam. Neck: Supple. Trachea midline. Lungs: Normal respiratory effort. Neuro: A+O x 3. Normal speech, mentation, gait. Cranial nerves II - XII grossly intact. No gross motor or sensory deficit. Skin: Small stab incision with bleeding left upper lateral breast area. Procedures Laceration Laceration 1: Site: chest Side (If applicable): left Size (cm): 0.3 Description: linear Depth: simple, single layer Local anesthetic: Lidocaine 1% and with Epi Skin layer closed with: vicryl Size (cm): 5-0 Number of sutures: 1 Technique: simple, interrupted Medical Decision Making Patient presenting to ED with bleeding status post biopsy at [facility] earlier today. She is on anticoagulation and antiplatelet medication. She was told not to stop these. She has been unable to control the bleeding. She has a small stab incision left upper lateral breast. Given the amount of time that she has been applying pressure and trying to control at home we elected to anesthetize the area with 1% lidocaine with epi, placed one 5-0 Vicryl suture for bleeding control. Surgicel dressing was then applied. Bleeding did stop and was controlled. Discharged home with instructions to contact the physician who did the procedure just to make them aware. Otherwise, maintain scheduled appointments as planned. Return precautions provided. 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 (Acute) Other cervical disc displacement at C5-C6 level (Acute) Cervicalgia (Acute) 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) use of opiate analgesic (Chronic) Medical History GERD (gastroesophageal reflux disease) Hypothyroidism Peripheral arterial disease Coronary artery disease Atrial fibrillation, chronic Chronic kidney disease, stage 4 (severe) Essential (primary) hypertension Bipolar 1 disorder Malignant neoplasm of upper-outer quadrant of left breast in female, estrogen receptor negative [facility] Hodgkin disease Surgical History Coronary angioplasty status 11/28/2023 Proximal RCA,LAD LCX lesions at [facility] History of coronary artery stent placement 11/28/2023 Stent placement ostial RCA and 12/02/2023 Stent placement Distal LM at [facility] S/P TAVR (transcatheter aortic valve replacement) Social History Smoking/Tobacco Use Status: Former Tobacco Use tobacco type: cigarettes Tobacco: How many years used: 30 Smoking risk assessment performed?: Yes Alcohol Intake: never Drug use: Never Adopted: No Caregiver/Support person: No Foster care: No Housing: apartment Number of Children: 2 number of grandchildren: 8 Communication Needs: None Education Level: middle school current occupation: Disabled Pets and animals: No Sexually active: No Current gender identity: female What is your relationship status?: How often do you talk on the phone with friends or family?: three or more times per week How often do you get together with friends or relatives?: once per week Do you belong to any clubs or organized social groups?: no Panel score (0-1 are the most socially isolated patients): 1 What type of physical activity do you participate in: walking Duration: 15-30 minutes/day Frequency: 3-4 times per week Josefa/Sabianist: Sabianist Special josefa needs: No Seatbelt use: always Helmet use: No (Sometimes - Never) Drive intox or ride w/intox lokie driver: No
[2024-03-26] MEDS: Gelatin SPONGE 12-7 MM PKT 1 EACH TP (22:32)
[2024-03-26] MEDS: Cellulose,Oxidized 2X3 PKT 1 EACH MC (23:12)
== END 2024-03-26 23:11 | disposition home or self-care (01) ==
PROVIDERS: Emergency Provider Emergency Medicine; PCP Family Medicine
DX: L76.22 Postprocedural hemorrhage of skin and subcutaneous tissue following other procedure (principal); I12.9 Hypertensive chronic kidney disease with stage 1 through stage 4 chronic kidney disease, or unspecified chronic kidney disease; N18.4 Chronic kidney disease, stage 4 (severe); I25.10 Atherosclerotic heart disease of native coronary artery without angina pectoris; Z95.2 Presence of prosthetic heart valve; Z79.01 Long term (current) use of anticoagulants; Z79.82 Long term (current) use of aspirin; Z87.891 Personal history of nicotine dependence
CPT/HCPCS: 12001; 99283

== ENCOUNTER → 2024-03-30 11:22 | Outpatient (BNVA) | payer MEDICARE, MEDICAID, SELFPAY | PROVIDERS: PCP Family Medicine; Visit Provider Internal Medicine Cardiovascular Disease | DX: I25.10 Atherosclerotic heart disease of native coronary artery without angina pectoris (principal); Z95.2 Presence of prosthetic heart valve; I48.0 Paroxysmal atrial fibrillation | CPT/HCPCS: 99213 ==

== ENCOUNTER 2024-05-07 03:12 | Outpatient (RCR) | payer MEDICARE, MEDICAID, SELFPAY ==
[2024-05-07] MEDS: Normal Saline Flush 10 ML SYR IVP (11:00)
[2024-05-07 11:44] LABS: Abs Immature Grans 0.02 10^3/uL (0.0-0.06); Absolute Basophil Count 0.06 10^3/uL (0.0-0.2); Absolute Eosinophil Count 0.05 10^3/uL (0.0-0.7); Absolute Lymphocyte Count 3.75 10^3/uL (1.2-3.4); Absolute Monocyte Count 0.86 10^3/uL (0.1-0.8); Absolute Neutrophil Count 5.99 10^3/uL (1.2-6.7); Basophils % 0.6 %; Eosinophils % 0.5 %; HCT 30.7 % (36.0-46.0); HGB 9.6 g/dL (11.2-15.7); Immature Grans % 0.2 %; Lymphocytes % 34.9 %; MCH 30.3 pg (27.0-33.0); MCHC 31.3 % (32.0-36.0); MCV 97 fL (80-95); MPV 11.3 fL (8.0-11.0); Neutrophils % 55.8 %; Platelet Count 453 10^3/uL (130-400); RBC 3.17 10^6/uL (3.93-5.22); RDW 18.1 % (11.7-14.6); RDW-SD 62.5 fL; WBC 10.73 10^3/uL (4.4-10.8)
[2024-05-07 12:07] LABS: ALT 22 U/L (14-59); AST 20 U/L (15-37); Albumin 3.1 g/dL (3.4-5.0); Alkaline Phosphatase 193 U/L (46-116); Anion Gap 9.7 mmol/L (3-11); BUN 22 mg/dL (7-18); CO2 26.3 mmol/L (21.0-32.0); CREATININE 1.4 mg/dL (0.55-1.02); Calcium 9.5 mg/dL (8.5-10.1); Chloride 106 mmol/L (98-107); Estimated GFR 43.07 (mL/min/1.73m2); FREE T4 1.09 ng/dL (0.76-1.46); Glucose 104 mg/dL (74-106); Potassium 4.6 mmol/L (3.5-5.1); Sodium 142 mmol/L (136-145); TSH (W/Ref FT4) 3.99 uIU/mL (0.36-3.74)
== END 2024-05-19 23:59 | disposition home or self-care (01) ==
LOC: INF 03:12
PROVIDERS: PCP Family Medicine; Visit Provider Physician Assistant Medical
DX: C50.412 Malignant neoplasm of upper-outer quadrant of left female breast (principal); Z79.899 Other long term (current) drug therapy; Z17.1 Estrogen receptor negative status [ER-]; Z45.2 Encounter for adjustment and management of vascular access device
CPT/HCPCS: 36591; 80053; 84439; 84443; 85025

== ENCOUNTER 2024-05-29 01:42 | Outpatient (RCR) | payer MEDICARE, MEDICAID, SELFPAY ==
[2024-05-29] MEDS: Normal Saline Flush 10 ML SYR IVP (08:45)
[2024-05-29 09:25] LABS: Abs Immature Grans 0.03 10^3/uL (0.0-0.06); Absolute Basophil Count 0.04 10^3/uL (0.0-0.2); Absolute Monocyte Count 1.07 10^3/uL (0.1-0.8); Absolute Neutrophil Count 8.27 10^3/uL (1.2-6.7); Basophils % 0.3 %; Eosinophils % 0.8 %; HGB 8.1 g/dL (11.2-15.7); Immature Grans % 0.2 %; Lymphocytes % 23.6 %; MCH 31.6 pg (27.0-33.0); MCHC 32.4 % (32.0-36.0); MCV 98 fL (80-95); MPV 11.8 fL (8.0-11.0); Monocytes % 8.6 %; Neutrophils % 66.5 %; Platelet Count 396 10^3/uL (130-400); RBC 2.56 10^6/uL (3.93-5.22); RDW 19.9 % (11.7-14.6); RDW-SD 69.7 fL; WBC 12.44 10^3/uL (4.4-10.8)
[2024-05-29 09:27] LABS: Absolute Lymphocyte Count 2.94 10^3/uL (1.2-3.4)
[2024-05-29 09:58] LABS: Diff Comment Diff Reviewed; RBC Morphology Normal
[2024-05-29 10:01] LABS: ALT 27 U/L (14-59); AST 35 U/L (15-37); Albumin 2.8 g/dL (3.4-5.0); Alkaline Phosphatase 630 U/L (46-116); Anion Gap 10.9 mmol/L (3-11); BUN 13 mg/dL (7-18); Bilirubin, Total 0.29 mg/dL (0.2-1.0); CO2 25.1 mmol/L (21.0-32.0); CREATININE 1.5 mg/dL (0.55-1.02); Calcium 9.3 mg/dL (8.5-10.1); Chloride 104 mmol/L (98-107); Estimated GFR 39.65 (mL/min/1.73m2); FREE T4 1.18 ng/dL (0.76-1.46); Glucose 123 mg/dL (74-106); Potassium 4.6 mmol/L (3.5-5.1); Sodium 140 mmol/L (136-145); TSH 9.22 uIU/Ml (0.36-3.74); Total Protein 7.3 g/dL (6.4-8.2)
== END 2024-06-18 23:59 | disposition home or self-care (01) ==
LOC: INF 01:42
PROVIDERS: PCP Family Medicine; Visit Provider Physician Assistant Medical
DX: C50.412 Malignant neoplasm of upper-outer quadrant of left female breast (principal); Z17.1 Estrogen receptor negative status [ER-]; Z79.899 Other long term (current) drug therapy
CPT/HCPCS: 36591; 80053; 84439; 84443; 85025

== ENCOUNTER 2024-05-29 13:27 | Inpatient (IN) | payer MEDICARE, MEDICAID, SELFPAY ==
[2024-05-29] VITALS (80 sets, daily range): BP systolic 95–155; BP diastolic 35–91; PULSE 84–132; RESP 3–42; TEMP 36.2; O2SAT 91–98
--- NOTE | 2024-05-29 13:15 | RT.EKG_ITS ---
APPROVED REPORT Exam: Resting ECG Reason for Exam: chest pain Patient Location: E HR:127 bpm ECG Measurements Heart Rate 127 AXIS DC 110 P 100 QRSd 148 QRS 65 QT 356 T 237 QTc 518 Conclusion Sinus tachycardia...rate> 99 IVCD, consider LBBB...QRSd>120, notch/slur R I aVL V5-6 ST elevation secondary to IVCD...Multiple VCG criteria
--- NOTE | 2024-05-29 13:15 | DI.CT_ITS ---
Exam(s) CT CHEST PE CTA EXAM: CT CHEST PE CTA CLINICAL HISTORY: shortness of breath, hx of cancer. TECHNIQUE: Imaging Protocol: Axial CT angiography was performed with multi-slice acquisition and mu lti-planar reconstructions as well as axial, coronal and sagittal MIP reconstructions. CONTRAST MATERIAL: Intravenous: Omnipaque 350 Contrast volume:100 ml COMPARISON: CR,XR XR PORTABLE CHEST AP from 11/28/2023 FINDINGS: Pulmonary Arteries: No evidence of filling defect to suggest pulmonary emboli. Tracheobronchial tree: No mucous plugging. Mediastinum and Freida: No dominant adenopathy or fluid collection. Pulmonary parenchyma: Interlobular septal thickening consistent with pulmonary edema. Alveolar infil trate seen greater in the lung bases. Findings could represent edema and/or pneumonia. No consolida tion or dominant measurable mass. Pleura: Moderate size bilateral pleural effusions. No pneumothorax. Heart: The heart is not dilated. Mitral annular calcifications and coronary artery calcifications are seen. Aorta: Stent in proximal aorta. Thoracic aorta non-dilated. No dissection. Upper abdomen: No acute findings. Bones: Unremarkable for age. Tubes, Catheters, and Lines: None Soft tissues: Unremarkable. IMPRESSION: No evidence of pulmonary embolism. Bilateral pleural effusions. Interlobular septal thickening consistent with pulmonary edema. Bibasi lar alveolar edema versus pneumonia. Findings were called to Dr. Karimi of the emergency department. RADIATION DOSE DELIVERED: 74.14mGy.cm Total DLP DATA REPOSITORY: All CT scans at this facility are submitted to the National Radiology Data Registry (NRDR) Dose Index Registry (DIR) with the [employer] ([employer]). RADIATION OPTIMIZATION: All CT scans at this facility use at least one of these dose optimization te chniques: automated exposure control; mA and/or kV adjustment per patient size (includes targeted exa ms where dose is matched to clinical indication); or iterative reconstruction.
[2024-05-29] MEDS: Levalbuterol 1.25 MG/3 ML UPD VIAL UPD (13:42)
--- NOTE | 2024-05-29 13:46 | ED.GENADUL_ITS ---
Discharge Plan Disposition Condition: Stable Discharge Details Chief Complaint: SOB/SuddenOnset Clinical Impression: CHF exacerbation, COPD exacerbation, Non-ST elevation OK (NSTEMI) Primary Care Provider: Gaudencio Scales ED Provider: Juanito Karimi Magness Meds and New Rx's Prescriptions: No Action baclofen 10 mg tablet 5 mg PO BID Qty: 90 3RF losartan 25 mg tablet 25 mg PO DAILY Qty: 90 3RF naloxone [Narcan] 4 mg/actuation spray,non-aerosol 4 mg intranasal Q2M PRN (Reason: opioid overdose) Qty: 2 0RF Rx Instructions: spray 1 dose into ONE nostril; alternate nostrils w each dose until help arrives oxycodone-acetaminophen 10-325 mg tablet 1 tab PO Q8H MDD 30 mg PRN (Reason: pain) Qty: 84 0RF oxycodone-acetaminophen 10-325 mg tablet 1 tab PO Q8H MDD 30 mg PRN (Reason: pain) Qty: 84 0RF oxycodone-acetaminophen 10-325 mg tablet 1 tab PO Q8H MDD 30 mg PRN (Reason: pain) Qty: 84 0RF famotidine 40 mg tablet 40 mg PO DAILY Fish Oil 300-500 mg capsule 1 cap PO DAILY Patient Comments: Did not disclose exact type and dose ferrous sulfate 325 mg (65 mg iron) tablet,delayed release (DR/EC) 325 mg PO DAILY Patient Comments: Patient did not disclose exact dosage multivitamin Tablet 1 tab PO DAILY cholecalciferol (vitamin D3) 25 mcg (1,000 unit) capsule 25 mcg PO DAILY quetiapine 100 mg tablet 100 mg PO QHS Qty: 90 3RF lamotrigine 100 mg tablet 100 mg PO BID Qty: 180 3RF clopidogrel 75 mg tablet 75 mg PO DAILY Patient Comments: Take for 12 months. Stop 11/30/2024 ipratropium-albuterol 0.5 mg-3 mg(2.5 mg base)/3 mL solution for nebulization 3 ml inhalation Q4H PRN metoprolol succinate 50 mg tablet extended release 24 hr 50 mg PO BID nitroglycerin 0.4 mg tablet, sublingual 0.4 mg sublingual Q5M PRN Rx Instructions: do not exceed 3 doses per episode atorvastatin 80 mg tablet 80 mg PO DAILY aspirin [Adult Low Dose Aspirin] 81 mg tablet,delayed release (DR/EC) 81 mg PO DAILY Qty: 90 4RF Rx Instructions: Take ASA for 1 month until 01/01/2024 then stop for 11 months, the restart after Clopidogrel is stopped. PER [facility] Cardiology discharge on 12/03/2023 Eliquis 5 mg tablet 5 mg PO BID Qty: 180 3RF levothyroxine 100 mcg tablet 100 mcg PO DAILY Qty: 90 3RF omeprazole 40 mg capsule,delayed release(/EC) See Rx Instructions .ROUTE .COMPLEX Qty: 90 3RF Dose Instruction: TAKE 1 CAPSULE BY MOUTH DAILY Rx Instructions: TAKE 1 CAPSULE BY MOUTH DAILY quetiapine 50 mg tablet 150 mg PO QHS Rx Instructions: May take up 200 mg QHS, if needed for sleep. quetiapine 25 mg tablet 12.5 mg PO DAILY PRN (Reason: anxiety) Rx Instructions: May take up to 1 full tablet ondansetron HCl 4 mg tablet 8 mg PO DAILY PRN (Reason: nausea and vomiting) Qty: 90 0RF lidocaine HCl 2 % solution 5 ml PO BID PRN Patient Comments: TAKE 1ML TO 2ML BY MOUTH ONCE DAILY NEEDED FOR PAIN (MUST MIX WITH EQUAL PARTS BENADRYL AND MAALOX) dexamethasone 4 mg tablet 8 mg PO DAILY Patient Comments: TAKE ONE TABLET BY MOUTH EVERY DAY. TAKE ON DAYS 2-4 FOR EACH CHEMOTHERAPY CYCLE HPI General Mode of arrival: EMS . Date/Time Provider Initiated Documentation: 05/29/24 13:28 . Limitations to Documentation: no limitations . Information obtained by: patient . History of Present Illness 58 year old F presents to the emergency department with the chief complaint of dyspnea, described as moderate, and it has been constant. No relieving factors improve symptom(s), No exacerbating factors reported . Patient notes shortness of breath; denies fever/chills. Patient did receive the following treatments prior to arrival, none Related Data Home Medications ?Medication ?Instructions ?Recorded ?Confirmed famotidine 40 mg tablet 40 mg PO DAILY 10/03/23 05/29/24 ferrous sulfate 325 mg (65 mg 325 mg PO DAILY 10/03/23 05/29/24 iron) tablet,delayed release multivitamin 1 tab PO DAILY 10/03/23 05/29/24 omega-3 fatty acids-fish oil 300 1 cap PO DAILY 10/03/23 05/29/24 mg-500 mg capsule (Fish Oil) cholecalciferol (vitamin D3) 25 25 mcg PO DAILY 10/04/23 05/29/24 mcg (1,000 unit) capsule baclofen 10 mg tablet 5 mg (1/2 x 10 mg) PO BID #90 tabs 10/27/23 05/29/24 lamotrigine 100 mg tablet 100 mg PO BID #180 tabs 11/21/23 05/29/24 quetiapine 100 mg tablet 100 mg PO QHS #90 tabs 11/21/23 05/29/24 aspirin 81 mg tablet,delayed 81 mg PO DAILY #90 tabs 12/07/23 05/29/24 release (Adult Low Dose Aspirin) atorvastatin 80 mg tablet 80 mg PO DAILY 12/07/23 05/29/24 clopidogrel 75 mg tablet 75 mg PO DAILY 12/07/23 05/29/24 ipratropium 0.5 mg-albuterol 3 mg 3 ml inhalation Q4H PRN 12/07/23 05/29/24 (2.5 mg base)/3 mL nebulization soln metoprolol succinate 50 mg 50 mg PO BID 12/07/23 05/29/24 tablet,extended release 24 hr nitroglycerin 0.4 mg sublingual 0.4 mg sublingual Q5M PRN 12/07/23 05/29/24 tablet losartan 25 mg tablet 25 mg PO DAILY #90 tabs 12/09/23 05/29/24 apixaban 5 mg tablet (Eliquis) 5 mg PO BID #180 tabs 12/27/23 05/29/24 levothyroxine 100 mcg tablet 100 mcg PO DAILY #90 tabs 12/27/23 05/29/24 naloxone 4 mg/actuation nasal 4 mg intranasal Q2M PRN opioid 02/14/24 05/29/24 spray (Narcan) overdose #2 ea omeprazole 40 mg capsule,delayed See Rx Instructions .Route 02/16/24 05/29/24 release .COMPLEX #90 caps quetiapine 25 mg tablet 12.5 mg PO DAILY PRN anxiety 03/15/24 05/29/24 quetiapine 50 mg tablet 150 mg PO QHS Sleep; anxiety 03/15/24 05/29/24 oxycodone-acetaminophen 10 mg-325 1 tab PO Q8H PRN pain #84 tabs 04/12/24 04/12/24 mg tablet oxycodone-acetaminophen 10 mg-325 1 tab PO Q8H PRN pain #84 tabs 04/12/24 04/12/24 mg tablet oxycodone-acetaminophen 10 mg-325 1 tab PO Q8H PRN pain #84 tabs 04/12/24 05/29/24 mg tablet ondansetron HCl 4 mg tablet 8 mg (2 x 4 mg) PO DAILY PRN 05/22/24 05/29/24 nausea and vomiting #90 tabs dexamethasone 4 mg tablet 8 mg PO DAILY 05/29/24 05/29/24 lidocaine HCl 2 % mucosal solution 5 ml PO BID PRN 05/29/24 05/29/24 Previous Rx's ?Medication ?Instructions ?Recorded baclofen 10 mg tablet 5 mg (1/2 x 10 mg) PO BID #90 tabs 10/27/23 lamotrigine 100 mg tablet 100 mg PO BID #180 tabs 11/21/23 quetiapine 100 mg tablet 100 mg PO QHS #90 tabs 11/21/23 aspirin 81 mg tablet,delayed 81 mg PO DAILY #90 tabs 12/07/23 release (Adult Low Dose Aspirin) losartan 25 mg tablet 25 mg PO DAILY #90 tabs 12/09/23 apixaban 5 mg tablet (Eliquis) 5 mg PO BID #180 tabs 12/27/23 levothyroxine 100 mcg tablet 100 mcg PO DAILY #90 tabs 12/27/23 naloxone 4 mg/actuation nasal 4 mg intranasal Q2M PRN opioid 02/14/24 spray (Narcan) overdose #2 ea omeprazole 40 mg capsule,delayed See Rx Instructions .Route 02/16/24 release .COMPLEX #90 caps oxycodone-acetaminophen 10 mg-325 1 tab PO Q8H PRN pain #84 tabs 04/12/24 mg tablet oxycodone-acetaminophen 10 mg-325 1 tab PO Q8H PRN pain #84 tabs 04/12/24 mg tablet oxycodone-acetaminophen 10 mg-325 1 tab PO Q8H PRN pain #84 tabs 04/12/24 mg tablet ondansetron HCl 4 mg tablet 8 mg (2 x 4 mg) PO DAILY PRN 05/22/24 nausea and vomiting #90 tabs Allergies Allergy/AdvReac Type Severity Reaction Status Date / Time No Known Allergies Allergy Verified 05/29/24 14:11 General Stated Complaint: SOB/SuddenOnset AYE: 2 Review of Systems All systems reviewed & are unremarkable except as noted in HPI and below Constitutional Constitutional: Denies chills, Denies fever(s) and Denies weakness Cardiovascular Cardiovascular: Reports chest pain and Reports dyspnea Respiratory Respiratory: Denies cough and Reports dyspnea Gastrointestinal Gastrointestinal: Denies abdominal pain, Denies nausea and Denies vomiting Musculoskeletal Musculoskeletal: Denies joint swelling Neurologic Neurologic: Denies weakness Exam Const Orientation: alert HENMT Head: normal to inspection Ears: external ears normal General nose exam: external nose normal Mouth: moist mucous membranes Eyes General: appearance normal, both eyes and all related structures Neck Neck: normal visual inspection Resp Effort & Inspection: normal respiratory effort and able to speak in complete sentences Auscultation: crackles and wheezes Cardio Jugular venous pressure: no JVD Rate: regular rate GI Palpation: soft and nontender Skin General skin exam: no rashes or lesions noted Neuro General: patient alert and patient oriented x3 Extrem General: normal to inspection Psych Mental Status: mental status grossly normal Course Vital Signs Vital signs: Vital Signs Pulse 132 H 05/29/24 13:26 Respiratory Rate 36 H 05/29/24 13:26 Pulse Oximetry 92 05/29/24 13:26 Pulse 123 H 05/29/24 13:44 Respiratory Rate 42 H 05/29/24 13:44 Pulse Oximetry 93 05/29/24 13:44 Oxygen Delivery Method Bi-pap 05/29/24 13:42 Oxygen Flow Rate 15 05/29/24 13:26 Fraction of Inspired Oxygen (FIO2) 60 05/29/24 13:44 Medical Decision Making 58-year-old female with a history of breast cancer currently undergoing treatment chemotherapy, bipolar, paroxysmal A-fib coronary artery disease, who comes in from the cancer center with shortness of breath that started abruptly while she was there getting her third infusion, and also some chest tightness. She arrives after getting Benadryl and dexamethasone with the cancer clinic despite not having a rash or other signs of an allergic reaction, she states she has been feeling tired last few days. Denies any cough or fevers. She currently has no chest pain. She is tachypneic and talking in 2-3 word sentences on arrival. She has crackles at the bases bilaterally and wheezing at the apices bilaterally. Has pitting edema up to the mid tibia bilaterally no calf tenderness. Suspect CHF exacerbation I did a bedside ultrasound and she does have bilateral B-lines, could also have a component of COPD exacerbation. Will proceed with IV Lasix and another neb (go tone neb with ems) and iv solumedrol, CBC, CMP, troponin and given her breast cancer history obtain CTA of the chest to evaluate for possible PE. Given work of breathing as well will proceed with bipap initial vbg with pH 7.09 with pco over 60, after time on bipap ph now 7.3. troponin over 1000. Pt is feeling much better and is comfortable on bipap. She is already on asa and plavix as well as apixaban, will discuss with [place] [facility] [place] Patient carlos trial time off bipap as she does feel better pt doing well on 4L NC, still awaiting cards consult. She is on apixiban so have held off on heparin at this time. Still awaitin call back from cardiology, pt stable on 4L NC, pt signed out to oncoming provider pending cardiology consult and potential transfer Differential Diagnosis Differential Diagnosis: COPD, CHF, PE Medical Records Medical records reviewed: Yes I reviewed the patient's medical records. Imaging Data Radiologic Study: Attestation: I personally reviewed and interpreted this imaging study as follows: Imaging: CT Scan Radiologist's impression: Patient Name: Oksana Betancourt Unit #: [id number] Loc: ER Ordering Provider: Juanito Karimi M.D. Status: [facility] ER Primary Care Provider: Gaudencio Scales DO Date of Exam: 05/29/24 Sex: F : 1965 Age: 58 Exam(s) a CT:CT chest PE CTA Exam(s) CT CHEST PE CTA EXAM: CT CHEST PE CTA CLINICAL HISTORY: shortness of breath, hx of cancer. TECHNIQUE: Imaging Protocol: Axial CT angiography was performed with multi- slice acquisition and multi-planar reconstructions as well as axial, coronal and sagittal MIP reconstructions. CONTRAST MATERIAL: Intravenous: Omnipaque 350 Contrast volume:100 ml COMPARISON: CR,XR XR PORTABLE CHEST AP from 11/28/2023 FINDINGS: Pulmonary Arteries: No evidence of filling defect to suggest pulmonary emboli. Tracheobronchial tree: No mucous plugging. Mediastinum and Freida: No dominant adenopathy or fluid collection. Pulmonary parenchyma: Interlobular septal thickening consistent with pulmonary edema. Alveolar infiltrate seen greater in the lung bases. Findings could represent edema and/or pneumonia. No consolidation or dominant measurable mass. Pleura: Moderate size bilateral pleural effusions. No pneumothorax. Heart: The heart is not dilated. Mitral annular calcifications and coronary artery calcifications are seen. Aorta: Stent in proximal aorta. Thoracic aorta non-dilated. No dissection. Upper abdomen: No acute findings. Bones: Unremarkable for age. Tubes, Catheters, and Lines: None Soft tissues: Unremarkable. IMPRESSION: No evidence of pulmonary embolism. Bilateral pleural effusions. Interlobular septal thickening consistent with pulmonary edema. Bibasilar alveolar edema versus pneumonia. Findings were called to Dr. Karimi of the emergency department. Lab Data Lab results reviewed: Yes I reviewed the patient's lab results. ECG Data Attestation: I personally reviewed and interpreted this ECG (s) as follows: Prior ECG tracings: available for review Interpretation: sinus tach, rate of 127 lbbb, no stemi 2nd ekg sinus rate of 96 pr 125 no stemi lbbb Quality:SDOH Health Related Social Needs: No Data to Display PFSH All Active Problems (Updated 05/29/24 @ 16:57 by Juanito Karimi MD) Non-ST elevation OK (NSTEMI) (Acute) COPD exacerbation (Acute) CHF exacerbation (Acute) Bipolar II disorder (Acute) Cancer related pain (Acute) Paroxysmal atrial fibrillation (Acute) Malignant neoplasm of upper-outer quadrant of left breast in female, estrogen receptor negative (Acute 02/10/24) [facility] (Dr Lyn oncology on 02/28/[address] Fulton (surgical oncology) on 03/14/2024 Difficulty coping (Acute 03/13/24) 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; 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 current use of antipsychotic medication (Acute) Nocturnal hypoxia (Acute) Family history of breast cancer in first degree relative (Chronic) Sister Family history of coronary artery disease in brother (Acute) Ex-smoker for more than 1 year (Acute) Iron deficiency (Acute) Gout (Chronic) 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 (Acute) Other cervical disc displacement at C5-C6 level (Acute) Cervicalgia (Acute) nursing home (current) use of opiate analgesic (Chronic) Medical History (Updated 05/29/24 @ 16:57 by Juanito Karimi MD) GERD (gastroesophageal reflux disease) Hypothyroidism Peripheral arterial disease Coronary artery disease Chronic kidney disease, stage 4 (severe) Essential (primary) hypertension Bipolar 1 disorder Hodgkin disease Surgical History S/P breast biopsy, left (03/26/24) [facility] Coronary angioplasty status 11/28/2023 Proximal RCA,LAD LCX lesions at [facility] History of coronary artery stent placement 11/28/2023 Stent placement ostial RCA and 12/02/2023 Stent placement Distal LM at [facility] S/P TAVR (transcatheter aortic valve replacement) Social History Smoking/Tobacco Use Status: Former Tobacco Use tobacco type: cigarettes Tobacco: How many years used: 30 Smoking risk assessment performed?: Yes Alcohol Intake: never Drug use: Never Adopted: No Caregiver/Support person: No Foster care: No Housing: apartment Number of Children: 2 number of grandchildren: 8 Communication Needs: None Education Level: middle school current occupation: Disabled Pets and animals: No Sexually active: No Current gender identity: female What is your relationship status?: How often do you talk on the phone with friends or family?: three or more times per week How often do you get together with friends or relatives?: once per week Do you belong to any clubs or organized social groups?: no Panel score (0-1 are the most socially isolated patients): 1 What type of physical activity do you participate in: walking Duration: 15-30 minutes/day Frequency: 3-4 times per week Josefa/Mormonism: Confucianist Special josefa needs: No Seatbelt use: always Helmet use: No (Sometimes - Never) Drive intox or ride w/intox 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
[2024-05-29 13:51] LABS: BE (Venous) -11 mmol/L (-2-3); HCO3 (Venous) 19 mmol/L (23-28); O2 Sat (Venous) 77 %; TCO2 (Venous) 19 mmol/L (24-29); pO2 (Venous) 58 mmHg
[2024-05-29 13:52] LABS: Abs Immature Grans 0.07 10^3/uL (0.0-0.06); Absolute Eosinophil Count 0.06 10^3/uL (0.0-0.7); Absolute Lymphocyte Count 4.54 10^3/uL (1.2-3.4); Basophils % 0.4 %; Eosinophils % 0.4 %; HCT 27.4 % (36.0-46.0); HGB 8.3 g/dL (11.2-15.7); Immature Grans % 0.5 %; MCH 31.1 pg (27.0-33.0); MCHC 30.3 % (32.0-36.0); MCV 103 fL (80-95); MPV 11.8 fL (8.0-11.0); Neutrophils % 63.7 %; Platelet Count 414 10^3/uL (130-400); RBC 2.67 10^6/uL (3.93-5.22); RDW 20.3 % (11.7-14.6); RDW-SD 75.7 fL
[2024-05-29 13:53] LABS: pCO2 (Venous) 62 mmHg (41-51)
[2024-05-29 13:54] LABS: pH (Venous) 7.09 (7.31-7.41)
[2024-05-29 13:56] LABS: Absolute Basophil Count 0.06 10^3/uL (0.0-0.2); Absolute Monocyte Count 0.43 10^3/uL (0.1-0.8); Absolute Neutrophil Count 9.05 10^3/uL (1.2-6.7)
[2024-05-29 14:09] LABS: Anisocytosis 2+; Diff Comment RBC Morph Reviewed
[2024-05-29] MEDS: Furosemide 40 MG/4 ML VIAL IVP (14:09)
[2024-05-29] MEDS: methylPREDNISolone SUCC 125 MG VIAL IVP (14:10)
[2024-05-29 14:33] LABS: Procalcitonin 0.5 ng/mL
[2024-05-29] MEDS: Normal Saline - Diluent 50 ML VIAL IJ (14:45)
--- NOTE | 2024-05-29 14:45 | RT.EKG_ITS ---
APPROVED REPORT Exam: Resting ECG Reason for Exam: chest pain Patient Location: E HR:96 bpm ECG Measurements Heart Rate 96 AXIS NM 125 P 68 QRSd 143 QRS 56 QT 416 T 178 QTc 527 Conclusion Sinus rhythm...normal P axis, V-rate 60- 99 LVH with secondary repolarization abnormality...multi-LVH criteria, abnrm ST-T ST elevation secondary to LVH...Multiple VCG criteria
[2024-05-29] MEDS: Omnipaque 350 MG/ML 500 ML BTL-Imaging package 100 ML IJ (14:46)
[2024-05-29 14:48] LABS: ALT 30 U/L (14-59); AST 36 U/L (15-37); Albumin 2.6 g/dL (3.4-5.0); Alkaline Phosphatase 658 U/L (46-116); Anion Gap 13.7 mmol/L (3-11); BUN 13 mg/dL (7-18); Bilirubin, Total 0.32 mg/dL (0.2-1.0); CO2 21.3 mmol/L (21.0-32.0); CREATININE 1.6 mg/dL (0.55-1.02); Calcium 8.9 mg/dL (8.5-10.1); Chloride 103 mmol/L (98-107); Estimated GFR 36.69 (mL/min/1.73m2); Glucose 352 mg/dL (74-106); Magnesium 1.8 mg/dL (1.8-2.4); NT-proBNP 10236 pg/mL (<300); Potassium 4.9 mmol/L (3.5-5.1); Sodium 138 mmol/L (136-145); TSH (W/Ref FT4) 5.36 uIU/mL (0.36-3.74); Total Protein 7.1 g/dL (6.4-8.2)
[2024-05-29 14:50] LABS: Troponin I 1108 ng/L (4-51)
[2024-05-29 14:59] LABS: BE (Venous) -3 mmol/L (-2-3); HCO3 (Venous) 24 mmol/L (23-28); O2 Sat (Venous) 74 %; TCO2 (Venous) 23 mmol/L (24-29); pCO2 (Venous) 46 mmHg (41-51); pH (Venous) 7.32 (7.31-7.41); pO2 (Venous) 44 mmHg
[2024-05-29 15:12] LABS: Bilirubin Negative (Negative); Blood Trace-intact (Negative); Clarity Cloudy (Clear); Glucose Negative (Negative); Ketones Negative (Negative); Leukocyte Esterase Moderate (Negative); Nitrite Negative (Negative); Urobilinogen 0.2 mg/dL (Up to 0.2)
[2024-05-29 15:17] LABS: FREE T4 1.07 ng/dL (0.76-1.46)
[2024-05-29 15:19] LABS: Epithelial Cells Few HPF (Negative); RBC 0-2 HPF (0-2); WBC >50 HPF (0-5)
[2024-05-29 15:20] LABS: Bacteria Many HPF (Negative); C & S Indicated? Yes; Casts Negative LPF (Negative); Crystals Negative HPF (Negative); Mucus Negative (Negative)
[2024-05-29 15:25] LABS: Troponin I 963 ng/L (4-51)
[2024-05-29] MEDS: PIPERACILLIN/TAZO 4.5 GM in Normal Saline 100 ML IVPB (15:43)
[2024-05-29 16:10] LABS: COVID-19 PCR Negative (Negative); Influenza A PCR Negative (Negative); Influenza B PCR Negative (Negative); RSV PCR Negative (Negative); Source Nasopharynx
[2024-05-29 18:24] LABS: BE (Venous) 1 mmol/L (-2-3); HCO3 (Venous) 26 mmol/L (23-28); O2 Sat (Venous) 78 %; TCO2 (Venous) 25 mmol/L (24-29); pCO2 (Venous) 43 mmHg (41-51); pH (Venous) 7.39 (7.31-7.41); pO2 (Venous) 44 mmHg
[2024-05-29 19:12] LABS: Troponin I 2036 ng/L (4-51)
[2024-05-29] MEDS: Heparin 5,000 UNITS/ML VIAL 5000 UNITS IV (19:37)
[2024-05-29] MEDS: Heparin in 0.45% NaCl 25,000 UNIT/250 ML BAG 10 UNIT IV (19:39)
--- NOTE | 2024-05-29 19:54 | W.PM.HP.N ---
Date of service: 05/29/24 Time of Service: 19:54 Assessment and Plan Assessment and plan (1) Non-ST elevation SC (NSTEMI): Start date: 05/29/24 Status: Acute Assessment and plan: This is a 58-year-old lady who had an acute onset of shortness of breath and chest now with trending troponins slightly upper on heparin infusion and not short of breath after a dose of Lasix IV 40 mg and on heparin infusion being reloaded with Plavix and aspirin. She has been accepted to [facility] [place]. Genao service on cardiology when bed is available. Will update echocardiogram. She has had previous cardiac events at least twice with the last in spring 2023. She also has a TAVR for aortic stenosis. She is a full code. (2) CHF exacerbation: Start date: 05/29/24 Status: Acute Assessment and plan: Elevated BNP and positive POCUS exam at bedside with Lasix IV given in the ED and to be continued twice daily. Follow-up echocardiogram. Qualifiers: Heart failure type: diastolic Qualified Code(s): I50.33 - Acute on chronic diastolic (congestive) heart failure (3) COPD exacerbation: Start date: 05/29/24 Status: Acute Assessment and plan: Patient was a smoker up to spring 2023 when she had a cardiac event. Now she is off tobacco and does use inhalers. (4) Pneumonia: Start date: 05/29/24 Status: Acute Assessment and plan: Initiated on Zosyn in the ED and this will be continued along with doxycycline as follow-up imaging and respiratory status continues to be monitored. Qualifiers: Laterality: bilateral Lung location: lower lobe of lung Pneumonia type: due to unspecified organism Qualified Code(s): J18.9 - Pneumonia, unspecified organism (5) Hyperglycemia, drug-induced: Start date: 05/29/24 Status: Acute Assessment and plan: Patient has no history of diabetes but recently has had hyperglycemia which may be secondary to steroid use with treatment of breast cancer and insulin resistance chronically with some elevated glucose levels in the past. Patient will have glucometer measurements before meals and at bedtime with moderate dosing of short acting insulin with sliding scale. (6) Paroxysmal atrial fibrillation: Status: Chronic (7) Malignant neoplasm of upper-outer quadrant of left breast in female, estrogen receptor negative: Status: Chronic Assessment and plan: Patient was diagnosed with breast cancer in the left breast in April 2024 and has initiated on chemotherapy on her fourth infusion. She was in the infusion clinic when she became more short of breath with chest pressure and tightness. (8) Cancer related pain: Status: Chronic Assessment and plan: Patient does have chronic pain previous to her diagnosis of breast cancer continues on daily narcotics. Her back is where most of her pain is presently with decreased range of motion. (9) Bipolar II disorder: Status: Chronic Assessment and plan: Patient is on current medical therapy which will be maintained while hospitalized. History of Present Illness History of Present Illness Chief Complaint: Abrupt onset of shortness of breath with chest tightness Narrative: This is a 58-year-old female patient has a history of breast cancer now on chemotherapy in the cancer treatment center when she began to have shortness of breath but with abrupt onset of the chest tightness. She was on her third infusion. She is a full code. She recently was was evaluated at [facility] and did receive stent in the spring 2023. She is on Plavix with stenting recently and is on apixaban for paroxysmal atrial fibrillation. In the ED she was found to have CHF with POCUS revealing B-lines and patient will be fluid overloaded with increased BNP responding to IV Lasix. Her troponin was elevated and trended downward until last measurement now trending upward. Consultation with [facility] did result in acceptance by Dr. Genao for transfer to cardiology service and further evaluation and treatment of CHF the possible recatheterization with recent stenting. With the last troponin being on upward trend, reconsultation with cardiology at [facility] resulted in Dr. Lanier recommending initiation of heparin infusion, holding Eliquis and treating acute coronary syndrome. She was requiring BiPAP initially because of her CHF and CO2 retention with tachypnea but is now off BiPAP after diuresis with respiratory rate normal and repeat VBG reassuring. She has not had recurrent chest pain. She is a full code. Review of Systems Narrative: 13 point review of systems otherwise unrevealing or stable. PFSH All Active Problems (Updated 05/29/24 @ 21:01 by David Soler) Hyperglycemia, drug-induced (Acute) Pneumonia (Acute) Non-ST elevation SC (NSTEMI) (Acute) COPD exacerbation (Acute) CHF exacerbation (Acute) Bipolar II disorder (Chronic) Cancer related pain (Chronic) Paroxysmal atrial fibrillation (Chronic) Malignant neoplasm of upper-outer quadrant of left breast in female, estrogen receptor negative (Chronic 02/10/24) [facility] (Dr Lyn oncology on 02/28/[address] Fulton (surgical oncology) on 03/14/2024 Difficulty coping (Acute 03/13/24) 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; managed by 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 Coronary angioplasty status 11/28/2023 Proximal RCA,LAD LCX lesions at [facility] History of coronary artery stent placement 11/28/2023 Stent placement ostial RCA and 12/02/2023 Stent placement Distal LM at [facility] S/P TAVR (transcatheter aortic valve replacement) Social History Smoking/Tobacco Use Status: Former Tobacco Use tobacco type: cigarettes Tobacco: How many years used: 30 Smoking risk assessment performed?: Yes Alcohol Intake: never Drug use: Never Adopted: No Caregiver/Support person: No Foster care: No Housing: apartment Number of Children: 2 number of grandchildren: 8 Communication Needs: None Education Level: middle school current occupation: Disabled Pets and animals: No Sexually active: No Current gender identity: female What is your relationship status?: How often do you talk on the phone with friends or family?: three or more times per week How often do you get together with friends or relatives?: once per week Do you belong to any clubs or organized social groups?: no Panel score (0-1 are the most socially isolated patients): 1 What type of physical activity do you participate in: walking Duration: 15-30 minutes/day Frequency: 3-4 times per week Josefa/Yazidism: Pentecostalism Special josefa needs: No Seatbelt use: always Helmet use: No (Sometimes - Never) Drive intox or ride w/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 Do you feel safe at home: Yes Do you feel safe in your relationship?: Yes Meds Allergies and Home Medications Allergies Allergy/AdvReac Type Severity Reaction Status Date / Time No Known Allergies Allergy Verified 05/29/24 14:11 Home Medications ?Medication ?Instructions ?Recorded ?Confirmed ?Type famotidine 40 mg tablet 40 mg PO DAILY 10/03/23 05/29/24 History ferrous sulfate 325 mg (65 mg 325 mg PO DAILY 10/03/23 05/29/24 History iron) tablet,delayed release multivitamin 1 tab PO DAILY 10/03/23 05/29/24 History omega-3 fatty acids-fish oil 300 1 cap PO DAILY 10/03/23 05/29/24 History mg-500 mg capsule (Fish Oil) cholecalciferol (vitamin D3) 25 25 mcg PO DAILY 10/04/23 05/29/24 History mcg (1,000 unit) capsule baclofen 10 mg tablet 5 mg (1/2 x 10 mg) PO BID #90 tabs 10/27/23 05/29/24 Rx lamotrigine 100 mg tablet 100 mg PO BID #180 tabs 11/21/23 05/29/24 Rx quetiapine 100 mg tablet 100 mg PO QHS #90 tabs 11/21/23 05/29/24 Rx aspirin 81 mg tablet,delayed 81 mg PO DAILY #90 tabs 12/07/23 05/29/24 Rx release (Adult Low Dose Aspirin) atorvastatin 80 mg tablet 80 mg PO DAILY 12/07/23 05/29/24 History clopidogrel 75 mg tablet 75 mg PO DAILY 12/07/23 05/29/24 History ipratropium 0.5 mg-albuterol 3 mg 3 ml inhalation Q4H PRN 12/07/23 05/29/24 History (2.5 mg base)/3 mL nebulization soln metoprolol succinate 50 mg 50 mg PO BID 12/07/23 05/29/24 History tablet,extended release 24 hr nitroglycerin 0.4 mg sublingual 0.4 mg sublingual Q5M PRN 12/07/23 05/29/24 History tablet losartan 25 mg tablet 25 mg PO DAILY #90 tabs 12/09/23 05/29/24 Rx apixaban 5 mg tablet (Eliquis) 5 mg PO BID #180 tabs 12/27/23 05/29/24 Rx levothyroxine 100 mcg tablet 100 mcg PO DAILY #90 tabs 12/27/23 05/29/24 Rx naloxone 4 mg/actuation nasal 4 mg intranasal Q2M PRN opioid 02/14/24 05/29/24 Rx spray (Narcan) overdose #2 ea omeprazole 40 mg capsule,delayed See Rx Instructions .Route 02/16/24 05/29/24 Rx release .COMPLEX #90 caps quetiapine 25 mg tablet 12.5 mg PO DAILY PRN anxiety 03/15/24 05/29/24 History quetiapine 50 mg tablet 150 mg PO QHS Sleep; anxiety 03/15/24 05/29/24 History oxycodone-acetaminophen 10 mg-325 1 tab PO Q8H PRN pain #84 tabs 04/12/24 04/12/24 Rx mg tablet oxycodone-acetaminophen 10 mg-325 1 tab PO Q8H PRN pain #84 tabs 04/12/24 04/12/24 Rx mg tablet oxycodone-acetaminophen 10 mg-325 1 tab PO Q8H PRN pain #84 tabs 04/12/24 05/29/24 Rx mg tablet ondansetron HCl 4 mg tablet 8 mg (2 x 4 mg) PO DAILY PRN 05/22/24 05/29/24 Rx nausea and vomiting #90 tabs dexamethasone 4 mg tablet 8 mg PO DAILY 05/29/24 05/29/24 History lidocaine HCl 2 % mucosal solution 5 ml PO BID PRN 05/29/24 05/29/24 History Exam Narrative Exam Narrative: General: Obese moderate to severely and in no acute distress lying in bed comfortably with her head down and supine. She is speaking in complete sentences. She is alert and oriented to person, place and time. HEENT: Normocephalic, eyes with pupils equal and react to light symmetrically, extraocular movement intact and sclera anicteric. Oropharynx with moist mucosa. Neck: Supple without JVD. Back: Kyphotic without CVA tenderness. Lungs: Decreased aeration both bases especially over left with coarse crackles in bases without focalizing. No rhonchi. Bronchovesicular breath sounds diffusely with increased expiratory phase but no expiratory wheeze. Breast: Exam deferred. (Patient will have both reduction surgery after chemotherapy for her left breast tumor found on mammogram). Heart: Regular rate and rhythm with click this systolic and murmur auscultated that sternal border without gallop. Abdomen: Obese contour, soft nontender to palpation with no palpable hepatosplenomegaly. Bowel sounds positive all quadrants. Medical exam deferred. Extremities: Obese extremities with nonpitting edema, no cyanosis or clubbing. Fair range of motion except for decreased motion of lower back with loss of lumbar lordosis. Skin: Pale, warm and dry. Neuro: Cranial nerves II through XII intact, no focalizing motor deficits. No tremor. Psych: Flattened affect with depressed mood. No abnormal thought processes. Remote and recent memory grossly intact. Results Imaging Imaging Studies: EXAM: CT CHEST PE CTA CLINICAL HISTORY: shortness of breath, hx of cancer. TECHNIQUE: Imaging Protocol: Axial CT angiography was performed with multi-slice acquisition and multi-planar reconstructions as well as axial, coronal and sagittal MIP reconstructions. CONTRAST MATERIAL: Intravenous: Omnipaque 350 Contrast volume:100 ml COMPARISON: CR,XR XR PORTABLE CHEST AP from 11/28/2023 FINDINGS: Pulmonary Arteries: No evidence of filling defect to suggest pulmonary emboli. Tracheobronchial tree: No mucous plugging. Mediastinum and Freida: No dominant adenopathy or fluid collection. Pulmonary parenchyma: Interlobular septal thickening consistent with pulmonary edema. Alveolar infiltrate seen greater in the lung bases. Findings could represent edema and/or pneumonia. No consolidation or dominant measurable mass. Pleura: Moderate size bilateral pleural effusions. No pneumothorax. Heart: The heart is not dilated. Mitral annular calcifications and coronary artery calcifications are seen. Aorta: Stent in proximal aorta. Thoracic aorta non-dilated. No dissection. Upper abdomen: No acute findings. Bones: Unremarkable for age. Tubes, Catheters, and Lines: None Soft tissues: Unremarkable. IMPRESSION: No evidence of pulmonary embolism. Bilateral pleural effusions. Interlobular septal thickening consistent with pulmonary edema. Bibasilar alveolar edema versus pneumonia. Findings were called to Dr. Karimi of the emergency department. Labs 05/30/24 04:38 05/30/24 04:38 Labs: Laboratory Results - last 24 hr 05/29/24 05/29/24 05/29/24 13:38 14:55 15:05 WBC 14.20 H RBC 2.67 L Hgb 8.3 L Hct 27.4 L MCV 103 H D MCH 31.1 MCHC 30.3 L D RDW 20.3 H Plt Count 414 H MPV 11.8 H Immature Gran % 0.5 Neutrophils % 63.7 Lymphocytes % 32.0 Monocytes % 3.0 Eosinophils % 0.4 Basophils % 0.4 Nucleated RBC % 0.0 Absolute Neutrophils 9.05 H Absolute Lymphocytes 4.54 H Absolute Monocytes 0.43 Absolute Eosinophils 0.06 Absolute Basophils 0.06 RBC Morphology See Below Anisocytosis 2+ VBG pH 7.09 L* 7.32 VBG pCO2 62 H* 46 VBG pO2 58 44 VBG HCO3 19 L 24 VBG Total CO2 19 L 23 L VBG O2 Saturation 77 74 VBG Base Excess -11 L -3 L Sodium 138 Potassium 4.9 Chloride 103 Carbon Dioxide 21.3 Anion Gap 13.7 H BUN 13 Creatinine 1.6 H Est GFR (CKD-EPI 2020) 36.69 Glucose 352 H Calcium 8.9 Magnesium 1.8 Total Bilirubin 0.32 AST 36 ALT 30 Alkaline Phosphatase 658 H Troponin I High Sens 1108 H* 963 H* NT-Pro-B Natriuret Pep 50894 H Total Protein 7.1 Albumin 2.6 L Procalcitonin 0.5 TSH 5.36 H Free T4 1.07 Urine Color Yellow Urine Clarity Cloudy Urine pH 6.0 Ur Specific [place] 1.010 Urine Protein Negative Urine Ketones Negative Urine Blood Trace-intact H Urine Nitrite Negative Urine Bilirubin Negative Urine Urobilinogen 0.2 Ur Leukocyte Esterase Moderate H Urine RBC 0-2 Urine WBC >50 H Ur Epithelial Cells Few Urine Crystals Negative Urine Bacteria Many Urine Casts Negative Urine Mucus Negative Ur Culture Indicated? Yes Urine Glucose Negative COVID-19 Source SARS-CoV-2 (PCR) Influenza Type A (PCR) Influenza Type B (PCR) RSV (PCR) 05/29/24 05/29/24 15:24 18:20 WBC RBC Hgb Hct MCV MCH MCHC RDW Plt Count MPV Immature Gran % Neutrophils % Lymphocytes % Monocytes % Eosinophils % Basophils % Nucleated RBC % Absolute Neutrophils Absolute Lymphocytes Absolute Monocytes Absolute Eosinophils Absolute Basophils RBC Morphology Anisocytosis VBG pH 7.39 VBG pCO2 43 VBG pO2 44 VBG HCO3 26 VBG Total CO2 25 VBG O2 Saturation 78 VBG Base Excess 1 Sodium Potassium Chloride Carbon Dioxide Anion Gap BUN Creatinine Est GFR (CKD-EPI 2020) Glucose Calcium Magnesium Total Bilirubin AST ALT Alkaline Phosphatase Troponin I High Sens 2035 H* NT-Pro-B Natriuret Pep Total Protein Albumin Procalcitonin TSH Free T4 Urine Color Urine Clarity Urine pH Ur Specific [place] Urine Protein Urine Ketones Urine Blood Urine Nitrite Urine Bilirubin Urine Urobilinogen Ur Leukocyte Esterase Urine RBC Urine WBC Ur Epithelial Cells Urine Crystals Urine Bacteria Urine Casts Urine Mucus Ur Culture Indicated? Urine Glucose COVID-19 Source Nasopharynx SARS-CoV-2 (PCR) Negative Influenza Type A (PCR) Negative Influenza Type B (PCR) Negative RSV (PCR) Negative Last Vital Signs Pulse 90 05/29/24 19:31 Resp 24 05/29/24 19:40 BP 123/53 L 05/29/24 19:31 Pulse Ox 92 05/29/24 15:25 Time Spent Time spent with Patient: >75 minutes Time was spent: preparing to see the patient(eg.review tests), obtaining and/or reviewing separately otained hiistory, ordering medications,tests, procedures, referring, communicating with other health healthcare consulting manager, indepentently interpreting results, counseling the patient and care coordination
--- NOTE | 2024-05-29 19:56 | ED.PROG_ITS ---
Date of service: 05/29/24 Time of Service: 17:00 Medical Decision Making In brief, this is a 58-year-old female patient with a past medical history significant for STEMI with stenting spring 2023, COPD, CHF, bipolar, atrial fibrillation on Eliquis, and a history of cancer (breast, followed at [facility]) presenting for shortness of breath and chest pain. Workup included evidence of fluid overload and flash pulmonary edema, responsive to Lasix, as well as an elevated troponin concerning for demand ischemia versus NSTEMI. She had a negative CT pulmonary embolism CT scan. She initially had respiratory acidosis and hypoxic respiratory failure requiring BiPAP, which quickly reversed with diuresis. She was able to be weaned to 4 L/min by nasal cannula, with a subsequent VBG that noted resolution of her hypercarbia and acidosis. Her tachypnea resolved, and she remained without chest pain. On repeat troponin measurement she was initially noted to downtrend from 11 100- 900, but then increased to 2000, and for this reason I started her on a heparin bolus and drip per ACS protocol. I did discuss the patient's case with [facility] cardiology, who has accepted her for admission to their service under the care of of Dr. Wong, but unfortunately there will be no beds available at [facility] until late afternoon tomorrow. For this reason I reached out to our hospitalist service, who is graciously accepted this patient for admission for ongoing management of her heart failure exacerbation and NSTEMI. While under my care the patient remained hemodynamically appropriate, she was transferred from our department without incident. Sherron Griggs MD Medical Records Medical records reviewed: Yes I reviewed the patient's medical records. Lab Data Lab results reviewed: Yes I reviewed the patient's lab results. Quality:[facility] Health Related Social Needs: No Data to Display Sign Out Sign Out Data: Sign Out Comment: Patient with history of coronary artery disease and COPD who is undergoing treatment for breast cancer came in with acute onset shortness of breath and chest tightness. She was given Solu-Medrol and nebulizers for some wheezing in the apices but I crackles on the bases as well. Was found to have B-lines on ultrasound so was given IV Lasix 40 mg and has had over 800 cc of urinary output and improvement in symptoms. Initially required BiPAP and initial venous pH was 7.09 and improved to 7.3. She is currently off BiPAP on 4 L nasal cannula. Her initial troponin was over thousand, second was downtrending in the 900s. She is already on apixaban for A-fib and also is on Plavix and aspirin, had stents placed in spring of this year. Pending consult and potential transfer to cardiology at [facility]. Also do CTA given her breast cancer history which did not show any PEs, did show pleural effusions and question pulm edema versus infiltrate so was given a one-time dose of Zosyn Last updated by Juanito Karimi MD at 05/29/24 16:59 Discharge Plan Disposition Condition: Stable Discharge Details Chief Complaint: SOB/SuddenOnset Clinical Impression: CHF exacerbation, COPD exacerbation, Non-ST elevation [place] (NSTEMI) Primary Care Provider: Gaudencio Scales ED Provider: Sherron Griggs Home Meds and New Rx's Prescriptions: No Action baclofen 10 mg tablet 5 mg PO BID Qty: 90 3RF losartan 25 mg tablet 25 mg PO DAILY Qty: 90 3RF naloxone [Narcan] 4 mg/actuation spray,non-aerosol 4 mg intranasal Q2M PRN (Reason: opioid overdose) Qty: 2 0RF Rx Instructions: spray 1 dose into ONE nostril; alternate nostrils w each dose until help arrives oxycodone-acetaminophen 10-325 mg tablet 1 tab PO Q8H MDD 30 mg PRN (Reason: pain) Qty: 84 0RF oxycodone-acetaminophen 10-325 mg tablet 1 tab PO Q8H MDD 30 mg PRN (Reason: pain) Qty: 84 0RF oxycodone-acetaminophen 10-325 mg tablet 1 tab PO Q8H MDD 30 mg PRN (Reason: pain) Qty: 84 0RF famotidine 40 mg tablet 40 mg PO DAILY Fish Oil 300-500 mg capsule 1 cap PO DAILY Patient Comments: Did not disclose exact type and dose ferrous sulfate 325 mg (65 mg iron) tablet,delayed release (DR/EC) 325 mg PO DAILY Patient Comments: Patient did not disclose exact dosage multivitamin Tablet 1 tab PO DAILY cholecalciferol (vitamin D3) 25 mcg (1,000 unit) capsule 25 mcg PO DAILY quetiapine 100 mg tablet 100 mg PO QHS Qty: 90 3RF lamotrigine 100 mg tablet 100 mg PO BID Qty: 180 3RF clopidogrel 75 mg tablet 75 mg PO DAILY Patient Comments: Take for 12 months. Stop 11/30/2024 ipratropium-albuterol 0.5 mg-3 mg(2.5 mg base)/3 mL solution for nebulization 3 ml inhalation Q4H PRN metoprolol succinate 50 mg tablet extended release 24 hr 50 mg PO BID nitroglycerin 0.4 mg tablet, sublingual 0.4 mg sublingual Q5M PRN Rx Instructions: do not exceed 3 doses per episode atorvastatin 80 mg tablet 80 mg PO DAILY aspirin [Adult Low Dose Aspirin] 81 mg tablet,delayed release (DR/EC) 81 mg PO DAILY Qty: 90 4RF Rx Instructions: Take ASA for 1 month until 01/01/2024 then stop for 11 months, the restart after Clopidogrel is stopped. PER [facility] Cardiology discharge on 12/03/2023 Eliquis 5 mg tablet 5 mg PO BID Qty: 180 3RF levothyroxine 100 mcg tablet 100 mcg PO DAILY Qty: 90 3RF omeprazole 40 mg capsule,delayed release(DR/EC) See Rx Instructions .ROUTE .COMPLEX Qty: 90 3RF Dose Instruction: TAKE 1 CAPSULE BY MOUTH DAILY Rx Instructions: TAKE 1 CAPSULE BY MOUTH DAILY quetiapine 50 mg tablet 150 mg PO QHS Rx Instructions: May take up 200 mg QHS, if needed for sleep. quetiapine 25 mg tablet 12.5 mg PO DAILY PRN (Reason: anxiety) Rx Instructions: May take up to 1 full tablet ondansetron HCl 4 mg tablet 8 mg PO DAILY PRN (Reason: nausea and vomiting) Qty: 90 0RF lidocaine HCl 2 % solution 5 ml PO BID PRN Patient Comments: TAKE 1ML TO 2ML BY MOUTH ONCE DAILY NEEDED FOR PAIN (MUST MIX WITH EQUAL PARTS BENADRYL AND MAALOX) dexamethasone 4 mg tablet 8 mg PO DAILY Patient Comments: TAKE ONE TABLET BY MOUTH EVERY DAY. 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
--- NOTE | 2024-05-29 21:03 | W.PC.ACHO ---
Registration Status: Primary Language: Preferred Language: ED Information & Data Chief Complaint SOB/SuddenOnset 05/29/24 14:03 Chief Complaint SOB/SuddenOnset 05/29/24 13:50 Triage Note CP and SOB started 1315, Dex 05/29/24 13:26 , Benadryl, neb given at [facility] Medical / Surgical History (Last Reviewed 05/29/24 @ 20:00 by David Soler) GERD (gastroesophageal reflux disease) Hypothyroidism Peripheral arterial disease Coronary artery disease Chronic kidney disease, stage 4 (severe) Essential (primary) hypertension Bipolar 1 disorder Hodgkin disease (Last Reviewed 05/29/24 @ 20:00 by David Soler) S/P breast biopsy, left (03/26/24) Coronary angioplasty status History of coronary artery stent placement S/P TAVR (transcatheter aortic valve replacement) Most Recent Vital Signs Pulse 90 05/29/24 20:46 Pulse 92 H 05/29/24 20:50 Respiratory Rate 19 05/29/24 20:50 Respiratory Effort Short of Breath, Labored, Accessory Muscle Use 05/29/24 14:03 Respiratory Depth Shallow 05/29/24 14:03 Respiratory Pattern Tachypnea 05/29/24 14:03 Blood Pressure 125/56 L 05/29/24 20:46 Blood Pressure Mean 80 05/29/24 20:46 Pulse Oximetry 92 05/29/24 15:25 Oxygen Delivery Method Nasal Cannula 05/29/24 15:25 Oxygen Flow Rate 4 05/29/24 15:25 Fraction of Inspired Oxygen (FIO2) 50 05/29/24 14:10 Comment 4 LPM NC 05/29/24 16:01 Allergies No Known Allergies Allergy (Verified 05/29/24 14:11) Active Medications Generic Name Dose Route Start Last Admin Trade Name Freq PRN Reason Stop Dose Admin Heparin Sodium/Sodium Chloride 25,000 unit in 250 mls @ 0 mls/hr 05/29/24 19:15 05/29/24 19:39 IV 110 mls/hr INFUSION COREY 110 mls/hr Administration Protocol As Directed Iohexol 100 ml 05/29/24 15:00 05/29/24 14:46 Omnipaque 350 Mg/Ml 500 Ml Btl-Imaging Package IJ 06/28/24 23:59 100 ml DIRECTED COREY Administration Sodium Chloride 50 ml 05/29/24 14:45 05/29/24 14:45 Normal Saline - Diluent 50 Ml Vial IJ 50 ml .FOR DI USE COREY Administration IV IV Catheter Type [Right Peripheral IV Subclavian] IV Catheter Gauge [Right 18 Subclavian] Diagnostics 05/29/24 05/29/24 05/29/24 Range/Units 18:20 15:24 15:05 WBC (4.4-10.8) 10^3/uL RBC (3.93-5.22) 10^6/uL Hgb (11.2-15.7) g/dL Hct (36.0-46.0) % MCV (80-95) fL MCH (27.0-33.0) pg MCHC (32.0-36.0) % RDW (11.7-14.6) % Plt Count (130-400) 10^3/uL MPV (8.0-11.0) fL Immature Gran % % Neutrophils % % Lymphocytes % % Monocytes % % Eosinophils % % Basophils % % Nucleated RBC % (0.0-0.3) % Absolute Neutrophils (1.2-6.7) 10^3/uL Absolute Lymphocytes (1.2-3.4) 10^3/uL Absolute Monocytes (0.1-0.8) 10^3/uL Absolute Eosinophils (0.0-0.7) 10^3/uL Absolute Basophils (0.0-0.2) 10^3/uL RBC Morphology Anisocytosis VBG pH 7.39 (7.31-7.41) VBG pCO2 43 (41-51) mmHg VBG pO2 44 mmHg VBG HCO3 26 (23-28) mmol/L VBG Total CO2 25 (24-29) mmol/L VBG O2 Saturation 78 % VBG Base Excess 1 (-2-3) mmol/L Sodium (136-145) mmol/L Potassium (3.5-5.1) mmol/L Chloride (98-107) mmol/L Carbon Dioxide (21.0-32.0) mmol/L Anion Gap (3-11) mmol/L BUN (7-18) mg/dL Creatinine (0.55-1.02) mg/dL Est GFR (CKD-EPI 2020) (mL/min/1.73m2) Glucose (74-106) mg/dL Calcium (8.5-10.1) mg/dL Magnesium (1.8-2.4) mg/dL Total Bilirubin (0.2-1.0) mg/dL AST (15-37) U/L ALT (14-59) U/L Alkaline Phosphatase (46-116) U/L Troponin I High Sens 2036 H* (4-51) ng/L NT-Pro-B Natriuret Pep (<300) pg/mL Total Protein (6.4-8.2) g/dL Albumin (3.4-5.0) g/dL Procalcitonin ng/mL TSH (0.36-3.74) uIU/mL Free T4 (0.76-1.46) ng/dL Urine Color Yellow (Yellow) Urine Clarity Cloudy (Clear) Urine pH 6.0 (5-8) Ur Specific [place] 1.010 (1.005-1.025) Urine Protein Negative (Neg-Trace) mg/dL Urine Ketones Negative (Negative) mg/dL Urine Blood Trace-intact H (Negative) Urine Nitrite Negative (Negative) Urine Bilirubin Negative (Negative) Urine Urobilinogen 0.2 (Up to 0.2) mg/dL Ur Leukocyte Esterase Moderate H (Negative) Urine RBC 0-2 (0-2) HPF Urine WBC >50 H (0-5) HPF Ur Epithelial Cells Few (Negative) HPF Urine Crystals Negative (Negative) HPF Urine Bacteria Many (Negative) HPF Urine Casts Negative (Negative) LPF Urine Mucus Negative (Negative) Ur Culture Indicated? Yes Urine Glucose Negative (Negative) mg/dL COVID-19 Source Nasopharynx SARS-CoV-2 (PCR) Negative (Negative) Influenza Type A (PCR) Negative (Negative) Influenza Type B (PCR) Negative (Negative) RSV (PCR) Negative (Negative) 05/29/24 05/29/24 Range/Units 14:55 13:38 WBC 14.20 H (4.4-10.8) 10^3/uL RBC 2.67 L (3.93-5.22) 10^6/uL Hgb 8.3 L (11.2-15.7) g/dL Hct 27.4 L (36.0-46.0) % MCV 103 H D (80-95) fL MCH 31.1 (27.0-33.0) pg MCHC 30.3 L D (32.0-36.0) % RDW 20.3 H (11.7-14.6) % Plt Count 414 H (130-400) 10^3/uL MPV 11.8 H (8.0-11.0) fL Immature Gran % 0.5 % Neutrophils % 63.7 % Lymphocytes % 32.0 % Monocytes % 3.0 % Eosinophils % 0.4 % Basophils % 0.4 % Nucleated RBC % 0.0 (0.0-0.3) % Absolute Neutrophils 9.05 H (1.2-6.7) 10^3/uL Absolute Lymphocytes 4.54 H (1.2-3.4) 10^3/uL Absolute Monocytes 0.43 (0.1-0.8) 10^3/uL Absolute Eosinophils 0.06 (0.0-0.7) 10^3/uL Absolute Basophils 0.06 (0.0-0.2) 10^3/uL RBC Morphology See Below Anisocytosis 2+ VBG pH 7.32 7.09 L* (7.31-7.41) VBG pCO2 46 62 H* (41-51) mmHg VBG pO2 44 58 mmHg VBG HCO3 24 19 L (23-28) mmol/L VBG Total CO2 23 L 19 L (24-29) mmol/L VBG O2 Saturation 74 77 % VBG Base Excess -3 L -11 L (-2-3) mmol/L Sodium 138 (136-145) mmol/L Potassium 4.9 (3.5-5.1) mmol/L Chloride 103 (98-107) mmol/L Carbon Dioxide 21.3 (21.0-32.0) mmol/L Anion Gap 13.7 H (3-11) mmol/L BUN 13 (7-18) mg/dL Creatinine 1.6 H (0.55-1.02) mg/dL Est GFR (CKD-EPI 2020) 36.69 (mL/min/1.73m2) Glucose 352 H (74-106) mg/dL Calcium 8.9 (8.5-10.1) mg/dL Magnesium 1.8 (1.8-2.4) mg/dL Total Bilirubin 0.32 (0.2-1.0) mg/dL AST 36 (15-37) U/L ALT 30 (14-59) U/L Alkaline Phosphatase 658 H (46-116) U/L Troponin I High Sens 963 H* 1108 H* (4-51) ng/L NT-Pro-B Natriuret Pep 96727 H (<300) pg/mL Total Protein 7.1 (6.4-8.2) g/dL Albumin 2.6 L (3.4-5.0) g/dL Procalcitonin 0.5 ng/mL TSH 5.36 H (0.36-3.74) uIU/mL Free T4 1.07 (0.76-1.46) ng/dL Urine Color (Yellow) Urine Clarity (Clear) Urine pH (5-8) Ur Specific [place] (1.005-1.025) Urine Protein (Neg-Trace) mg/dL Urine Ketones (Negative) mg/dL Urine Blood (Negative) Urine Nitrite (Negative) Urine Bilirubin (Negative) Urine Urobilinogen (Up to 0.2) mg/dL Ur Leukocyte Esterase (Negative) Urine RBC (0-2) HPF Urine WBC (0-5) HPF Ur Epithelial Cells (Negative) HPF Urine Crystals (Negative) HPF Urine Bacteria (Negative) HPF Urine Casts (Negative) LPF Urine Mucus (Negative) Ur Culture Indicated? Urine Glucose (Negative) mg/dL COVID-19 Source SARS-CoV-2 (PCR) (Negative) Influenza Type A (PCR) (Negative) Influenza Type B (PCR) (Negative) RSV (PCR) (Negative) 05/29/24 15:20 Blood Culture - Pending Blood 05/29/24 15:05 Urine Culture - Pending Urine - Reflex from Ua 05/29/24 15:04 Blood Culture - Pending Blood Intake and Output - 24 Hour Total 05/29/24 13:16 thru 05/29/24 18:26 Intake Total 100 Output Total 1050 Balance -950 Weight 106.2 kg Intake: IV 100 Output: Urine 1050 Falls Risk Assessment History of Falls No History 05/29/24 14:03 Contributing Factors Impairments 05/29/24 14:03 Ambulatory Aids Uses ambulatory device + 05/29/24 14:03 Tubes/Lines With any additional score 05/29/24 14:03 Gait Evaluation W/any additional score 05/29/24 14:03 Cognition No cognitive impairment 05/29/24 14:03 Fall Total Score 73 05/29/24 14:03 Level of Risk High Risk 05/29/24 14:03 Problems (Last Reviewed 05/29/24 @ 20:00 by David Soler) Pneumonia (Acute) Non-ST elevation PR (NSTEMI) (Acute) COPD exacerbation (Acute) CHF exacerbation (Acute) Bipolar II disorder (Chronic) Cancer related pain (Chronic) Paroxysmal atrial fibrillation (Chronic) Malignant neoplasm of upper-outer quadrant of left breast in female, estrogen receptor negative (Chronic 02/10/24) v v v v v v v v v Sending and/or Receiving Nurses: Please use comment section below to note any information pertinent to the patient hand-off not included above. Information / Comments: SaO2 93-96% 4LNC -- didn't capture. Baseline Coags were not done Report received from:
--- NOTE | 2024-05-29 21:07 | NUR.NOTE ---
Nursing Note: Total output in ED is 3075
[2024-05-29] MEDS: Normal Saline Flush 10 ML SYR IVP (23:24)
[2024-05-29 23:30] LABS: Troponin I 3499 ng/L (4-51)
[2024-05-29] MEDS: QUEtiapine 50 MG TAB 150 MG PO (23:42)
[2024-05-29] MEDS: Atorvastatin 40 MG TAB 80 MG PO (23:43)
[2024-05-29] MEDS: lamoTRIgine 100 MG TAB PO (23:43)
[2024-05-29] MEDS: Metoprolol 25 MG TAB PO (23:43)
[2024-05-29] MEDS: Baclofen 10 MG TAB 5 MG PO (23:43)
[2024-05-29] MEDS: Normal Saline 10 ML VIAL IJ (23:44)
[2024-05-29] MEDS: methylPREDNISolone SUCC 40 MG VIAL 60 MG IVP (23:44)
[2024-05-29] MEDS: oxyCODONE 5 mg/Acetaminophen 325 mg TAB 1 TAB PO (23:57)
[2024-05-29] MEDS: Pantoprazole 40 MG TABCR PO (23:58)
[2024-05-30] VITALS (38 sets, daily range): BP systolic 95–147; BP diastolic 48–133; PULSE 70–132; RESP 3–31; TEMP 35.8–36.2; O2SAT 85–100
[2024-05-30] MEDS: Albuterol/Ipratropium 3 ML UPD VIAL UPD ×4 (00:10→18:20)
[2024-05-30] MEDS: oxyCODONE 5 MG TAB PO ×2 (00:13→09:02)
[2024-05-30] MEDS: PIPERACILLIN/TAZO 3.375 GM in Normal Saline 50 ML IVPB ×5 (00:25→23:56)
[2024-05-30] MEDS: DOXYCYCLINE 100 MG in Normal Saline 100 ML IVPB (01:00)
[2024-05-30 02:08] LABS: Troponin I 3676 ng/L (4-51)
[2024-05-30 02:28] LABS: PTT Activated > 155.0 sec (23.6-32.8)
[2024-05-30 04:45] LABS: HCT 23.4 % (36.0-46.0); MCH 31.4 pg (27.0-33.0); MCHC 32.9 % (32.0-36.0); MCV 96 fL (80-95); MPV 11.7 fL (8.0-11.0); Platelet Count 406 10^3/uL (130-400); RBC 2.45 10^6/uL (3.93-5.22); RDW-SD 67.6 fL; WBC 6.82 10^3/uL (4.4-10.8)
[2024-05-30 04:58] LABS: PTT Activated 69.7 sec (23.6-32.8)
[2024-05-30 05:08] LABS: ALT 29 U/L (14-59); AST 40 U/L (15-37); Albumin 2.4 g/dL (3.4-5.0); Alkaline Phosphatase 580 U/L (46-116); Anion Gap 10.7 mmol/L (3-11); BUN 17 mg/dL (7-18); Bilirubin, Total 0.36 mg/dL (0.2-1.0); CO2 27.3 mmol/L (21.0-32.0); CREATININE 1.4 mg/dL (0.55-1.02); Calcium 8.4 mg/dL (8.5-10.1); Chloride 103 mmol/L (98-107); Estimated GFR 43.07 (mL/min/1.73m2); Glucose 138 mg/dL (74-106); Potassium 4.1 mmol/L (3.5-5.1); Sodium 141 mmol/L (136-145); Total Protein 6.7 g/dL (6.4-8.2)
[2024-05-30 05:14] LABS: Troponin I 3969 ng/L (4-51)
[2024-05-30 05:18] LABS: HGB 7.7 g/dL (11.2-15.7); RDW 19.9 % (11.7-14.6)
[2024-05-30] MEDS: Levothyroxine 100 MCG TAB PO (05:28)
[2024-05-30] MEDS: Pantoprazole 40 MG TABCR PO (07:03)
--- NOTE | 2024-05-30 08:35 | INITIAL_ITS ---
Date of service: 05/30/24 Time of Service: 08:35 Care Management Initial Assmt Initial Assessment Reason for Hospitalization: Non-STEMI Functional Status/Living Situation Patient Presentation: Harman was lying in bed in the ICU when CM met with her. She was pleasant in interaction and agreeable to conversation. harman was admitted with an NSTEMI. She has been accepted in transfer to [facility] but there are no beds available today. Harman is also undergoing chemotherapy for breast cancer. She was receiving her fourth dose yesterday when she began to have chest pain and shortness of breath. Harman stated that she is feeling much better today. Her pain is better and her troponins are starting to come down after reaching a high of 3969 early this morning. harman does not have advanced directives and was provided with a blasnk copy by CM at her request. CM will assist with completion of the documents if needed. Town of Residence: [facility] Resides with: Alone Significant Other/Family: Out of area (son lives in [place] and daughter lives in [place]) Employment Status: Disabled (for 12 years) Instrumental Activities of Daily Living (ADLs): Independent Activities/Hobbies/SocialSupport: receives Meals on Wheels Medications Medication Management: No Issues/Barriers identified Advance Directives Advance Directives: Do you have an Advance Directive: N 08/30/23 10:20 AD On File at [facility]: N 08/30/23 10:20 Date Asked 05/25/24 05/25/24 13:48 AD Date Reviewed COLST On File at [facility] COLST Date Scanned Comment: given a copy by CM Code Status Resuscitation Status Full Code Portal Pt does not currently have a portal and education provided: No Care Team Visit Care Team Role Provider Type Gaudencio Scales DO Primary Care Provider OSTEOPATHIC DOCTOR Sherron Griggs MD Emergency Provider [facility] STAFF PHYSICIAN David Soler Admit Provider [facility] STAFF PHYSICIAN Attending Provider Discharge Potential Discharge Needs: Other (awaiting transfer to [facility]) Anticipated Barriers to Discharge: Bed availability Patient/Family Education Needs: Review discharge instructions, discuss Ask Me Three Transportation: EMS Plan: Harman was admitted with an NSmitted with an NSTEMI. She had a similar episode in the spring at which time she went to [facility] and had a stent placed. She has been accepted in transfer by , [facility] C[facility]diology. CTEMI. She had a similar episode in the spring at which time she went to [facility] and had a stent placed. She has been accepted in transfer by , [facility] Cardiology and is waiting for a bed. CM will follow and support discharge needs. PFSH All Active Problems (Updated 05/30/24 @ 10:33 by Juanpablo Porter MD) Macrocytic anemia (Acute) DVT prophylaxis (Acute) Hyperglycemia, drug-induced (Acute) Pneumonia (Acute) Non-ST elevation IN (NSTEMI) (Acute) COPD exacerbation (Acute) CHF exacerbation (Acute) Bipolar II disorder (Chronic) Cancer related pain (Chronic) Paroxysmal atrial fibrillation (Chronic) Malignant neoplasm of upper-outer quadrant of left breast in female, estrogen receptor negative (Chronic 02/10/24) [facility] (Dr Lyn oncology on 02/28/[address] Fulton (surgical oncology) on 03/14/2024 Difficulty coping (Acute 03/13/24) 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; managed by [facility] custodial current use of antipsychotic medication (Acute) Nocturnal hypoxia (Acute) Family history of breast cancer in first degree relative (Chronic) Sister Family history of coronary artery disease in brother (Acute) Ex-smoker for more than 1 year (Acute) Iron deficiency (Acute) Gout (Chronic) 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 (Acute) Other cervical disc displacement at C5-C6 level (Acute) Cervicalgia (Acute) custodial (current) use of opiate analgesic (Chronic) Medical History GERD (gastroesophageal reflux disease) Hypothyroidism Peripheral arterial disease Coronary artery disease Chronic kidney disease, stage 4 (severe) Essential (primary) hypertension Bipolar 1 disorder Hodgkin disease Surgical History S/P breast biopsy, left (03/26/24) [facility] Coronary angioplasty status 11/28/2023 Proximal RCA,LAD LCX lesions at [facility] History of coronary artery stent placement 11/28/2023 Stent placement ostial RCA and 12/02/2023 Stent placement Distal LM at [facility] S/P TAVR (transcatheter aortic valve replacement) Social History Smoking/Tobacco Use Status: Former Tobacco Use tobacco type: cigarettes Tobacco: How many years used: 30 Smoking risk assessment performed?: Yes Alcohol Intake: never Drug use: Never Adopted: No Caregiver/Support person: No Foster care: No Housing: apartment Number of Children: 2 number of grandchildren: 8 Communication Needs: None Education Level: middle school current occupation: Disabled Pets and animals: No Sexually active: No Current gender identity: female What is your relationship status?: How often do you talk on the phone with friends or family?: three or more times per week How often do you get together with friends or relatives?: once per week Do you belong to any clubs or organized social groups?: no Panel score (0-1 are the most socially isolated patients): 1 What type of physical activity do you participate in: walking Duration: 15-30 minutes/day Frequency: 3-4 times per week Josefa/Orthodox: [employer] Special josefa needs: No Seatbelt use: always Helmet use: No (Sometimes - Never) Drive intox or ride w/intox courtesy van driver: No Do you feel safe at home: Yes Do you feel safe in your relationship?: Yes SDOH(Care Management) Screening Will the Patient Participate in the Screening?: Yes Do you worry about having a steady place to live?: no Problems where you live: no known problems In the past 12 months, have you had to go without electric, gas, oil or water in your home?: no Have you or anyone in your house had to go without enough food to eat?: no Has lack of transportation kept you from medical appointments or from doing things needed for daily living?: no Has anyone in your support network made you feel unsafe for any reason?: no
[2024-05-30] MEDS: Insulin Aspart 300 UNITS/3 ML PEN SC ×4 (08:36→22:15)
[2024-05-30] MEDS: Furosemide 40 MG/4 ML VIAL IVP ×2 (08:37→17:52)
[2024-05-30] MEDS: methylPREDNISolone SUCC 40 MG VIAL 60 MG IVP (08:38)
[2024-05-30] MEDS: Baclofen 10 MG TAB 5 MG PO ×2 (08:40→20:47)
[2024-05-30] MEDS: Omega-3 Fatty Acids 1000 MG CAP PO (08:41)
[2024-05-30] MEDS: Ferrous Sulfate 325 MG TAB PO (08:42)
[2024-05-30] MEDS: Multivitamin TAB 1 TAB PO (08:42)
[2024-05-30] MEDS: Cholecalciferol (Vitamin D3) 1,000 UNIT TAB 1000 UNITS PO (08:42)
[2024-05-30] MEDS: lamoTRIgine 100 MG TAB PO ×2 (08:42→20:46)
[2024-05-30] MEDS: Losartan 25 MG TAB PO (08:43)
[2024-05-30] MEDS: Normal Saline Flush 10 ML SYR IVP ×2 (08:43→23:54)
[2024-05-30] MEDS: Metoprolol 25 MG TAB PO ×3 (08:43→23:54)
[2024-05-30] MEDS: Aspirin E.C. 81 MG TABEC PO (08:44)
[2024-05-30 09:16] LABS: PTT Activated 141.3 sec (23.6-32.8)
[2024-05-30] MEDS: Clopidogrel 75 MG TAB PO (09:34)
--- NOTE | 2024-05-30 10:10 | PGE_ITS ---
Date of Service Date of service: 05/30/24 Time of Service: 10:10 Assessment and Plan Assessment and plan (1) Non-ST elevation UT (NSTEMI): Start date: 05/29/24 Status: Acute Assessment and plan: Patient with history of known coronary artery disease presented with acute onset dyspnea found to be in acute CHF and Elevated troponins troponin levels remain elevated but seem to be plateauing at around 3900. ECG on admission shows sinus rhythm with LVH with repolarization ST abnormalities however this also could be consistent with ischemia. She had ST depression in limb leads I and aVL as well as V5 through V6. And she has loss of R waves in the anterior precordial leads along with some J-point elevation. She is currently pain-free and dyspnea has improved with diuresis. I will repeat her EKG and get a formal echocardiogram this morning looking for regional wall motion abnormalities. Continue dual antiplatelet therapy and heparin. If she develops worsening dyspnea or chest discomfort we will contact [facility] [place] to see if we can move up her transfer. She remains hemodynamically stable we will plan for transfer to Dr. Genao once a bed becomes available. Critical care time spent interviewing and examining the patient, reviewing studies, discussing case with patient's nurse and consulting physicians was 60 minutes (2) CHF exacerbation: Start date: 05/29/24 Status: Acute Assessment and plan: Continue Lasix as she still appears to be in some volume excess based on her lung exam and her POCUS of her lungs. Will obtain formal echocardiogram. Qualifiers: Heart failure type: diastolic Qualified Code(s): I50.33 - Acute on chronic diastolic (congestive) heart failure (3) COPD exacerbation: Start date: 05/29/24 Status: Acute Assessment and plan: Patient was a smoker up to spring 2023 when she had a cardiac event. Now she is off tobacco and does use inhalers. Not clear that this is a COPD exacerbation I think her primary respiratory problems or CHF plus or minus pneumonia superimposed on COPD. (4) Macrocytic anemia: Status: Acute Assessment and plan: Of note her hemoglobin has hovered around 8 g during this hospitalization where as it had been 9.6 g 3 weeks ago and was normal 4 months ago. Presumably the anemia caused by her chemotherapy although of note her platelet count is within normal limits. She carries a diagnosis of iron deficiency anemia however I see no recent labs for iron studies or B12 or folate levels. She is currently on pantoprazole for GI protection. She is getting this intravenously we will switch that to oral to reduce the IV fluid she is receiving. I will also switch her methylprednisolone from IV to oral steroids. We will check stool for occult blood and obtain iron levels and B12 and folate levels. (5) Pneumonia: Start date: 05/29/24 Status: Acute Assessment and plan: Clinically did not present like a pneumonia i.e. no fever or rigors and it sounds like her sputum production was minimal and more like her usual COPD cough. However limited ultrasound of her lungs does suggest that there may be some incipient consolidation in the right lower lobe with subpleural consolidation in addition to her CHF. However this could also just be atelectasis. Of note she did not have a leukocytosis on admission and her procalcitonin however was indeterminate at 0.5. Given her immunocompromise state from her breast cancer treatment and he would be prudent to continue with antibiotic coverage for community-acquired pneumonia until her picture becomes more clear. Thank once she has been adequately diuresed I would recommend reimaging her lungs either with ultrasound or chest x-ray although ultrasound is more sensitive for picking up pneumonia. Qualifiers: Pneumonia type: due to unspecified organism Laterality: bilateral Lung location: lower lobe of lung Qualified Code(s): J18.9 - Pneumonia, unspecified organism (6) Hyperglycemia, drug-induced: Start date: 05/29/24 Status: Acute Assessment and plan: Patient has no history of diabetes but recently has had hyperglycemia which may be secondary to steroid use with treatment of breast cancer and insulin resistance chronically with some elevated glucose levels in the past. Patient will have glucometer measurements before meals and at bedtime with moderate dosing of short acting insulin with sliding scale. (7) Paroxysmal atrial fibrillation: Status: Chronic Assessment and plan: Currently in sinus rhythm (8) Malignant neoplasm of upper-outer quadrant of left breast in female, estrogen receptor negative: Status: Chronic Assessment and plan: Patient was diagnosed with breast cancer in the left breast in April 2024 and has initiated on chemotherapy on her fourth infusion. She was in the infusion clinic when she became more short of breath with chest pressure and tightness. (9) Cancer related pain: Status: Chronic Assessment and plan: Patient does have chronic pain previous to her diagnosis of breast cancer continues on daily narcotics. Her back is where most of her pain is presently with decreased range of motion. (10) Bipolar II disorder: Status: Chronic Assessment and plan: Patient is on current medical therapy which will be maintained while hospitalized. (11) DVT prophylaxis: Status: Acute Assessment and plan: Currently on heparin drip for NSTEMI Subjective Subjective Interval history since last seen: 58 yr old female w/ breast CA currently undergoing chemotherapy, hx of CAD w/ 7 prior stents, last heart cath in November 2023, hx of TAVR who presented w/ acute dyspnea at rest along w/ tightness in her back. She ruled in for NSTEMI and was found to have CHF and questionable pneumonia. She admits to recent cough, sputum mostly white w/ some yellow tinge but no fevers or rigors. she was begun on Zosyn and doxycycline and corticosteroids for her pneumonia and DAPT and heparin for her NSTEMI. She also has COPD. For her CHF she was given lasix 40 mg IVP w/ good diuresis net negative 1400 mL last night. [facility] [place] cardiology was called last night for her NSTEMI and she has been accepted to service of Dr. Genao, pending bed availability. This morning she says that she has no chest pain. She does have chronic back pain d/t DJD and takes percocet for her back pains. Exam Narrative Exam Narrative: Oksana is sitting up in bed no acute distress. Alert and oriented x 3 Currently pain-free Neck supple no JVD no HJR Lungs with bibasilar rales no rhonchi or wheezing Heart is regular rate and rhythm no appreciable rub she does have a murmur along the aortic outflow tract consistent with a bioprosthetic aortic valve Abdomen obese soft nontender Extremities no pitting edema and no cyanosis Objective Last Vital Signs Temp 35.8 C L 05/30/24 04:25 Pulse 81 05/30/24 08:01 Resp 15 05/30/24 08:01 BP 106/56 L 05/30/24 08:01 Pulse Ox 97 05/30/24 08:01 Laboratory Results - last 24 hr 05/29/24 05/29/24 05/29/24 13:38 14:55 15:05 WBC 14.20 H RBC 2.67 L Hgb 8.3 L Hct 27.4 L MCV 103 H D MCH 31.1 MCHC 30.3 L D RDW 20.3 H Plt Count 414 H MPV 11.8 H Immature Gran % 0.5 Neutrophils % 63.7 Lymphocytes % 32.0 Monocytes % 3.0 Eosinophils % 0.4 Basophils % 0.4 Nucleated RBC % 0.0 Absolute Neutrophils 9.05 H Absolute Lymphocytes 4.54 H Absolute Monocytes 0.43 Absolute Eosinophils 0.06 Absolute Basophils 0.06 RBC Morphology See Below Anisocytosis 2+ APTT VBG pH 7.09 L* 7.32 VBG pCO2 62 H* 46 VBG pO2 58 44 VBG HCO3 19 L 24 VBG Total CO2 19 L 23 L VBG O2 Saturation 77 74 VBG Base Excess -11 L -3 L Sodium 138 Potassium 4.9 Chloride 103 Carbon Dioxide 21.3 Anion Gap 13.7 H BUN 13 Creatinine 1.6 H Est GFR (CKD-EPI 2020) 36.69 Glucose 352 H Calcium 8.9 Magnesium 1.8 Total Bilirubin 0.32 AST 36 ALT 30 Alkaline Phosphatase 658 H Troponin I High Sens 1108 H* 963 H* NT-Pro-B Natriuret Pep 56173 H Total Protein 7.1 Albumin 2.6 L Procalcitonin 0.5 TSH 5.36 H Free T4 1.07 Urine Color Yellow Urine Clarity Cloudy Urine pH 6.0 Ur Specific [place] 1.010 Urine Protein Negative Urine Ketones Negative Urine Blood Trace-intact H Urine Nitrite Negative Urine Bilirubin Negative Urine Urobilinogen 0.2 Ur Leukocyte Esterase Moderate H Urine RBC 0-2 Urine WBC >50 H Ur Epithelial Cells Few Urine Crystals Negative Urine Bacteria Many Urine Casts Negative Urine Mucus Negative Ur Culture Indicated? Yes Urine Glucose Negative COVID-19 Source SARS-CoV-2 (PCR) Influenza Type A (PCR) Influenza Type B (PCR) RSV (PCR) 05/29/24 05/29/24 05/29/24 15:24 18:20 23:04 WBC RBC Hgb Hct MCV MCH MCHC RDW Plt Count MPV Immature Gran % Neutrophils % Lymphocytes % Monocytes % Eosinophils % Basophils % Nucleated RBC % Absolute Neutrophils Absolute Lymphocytes Absolute Monocytes Absolute Eosinophils Absolute Basophils RBC Morphology Anisocytosis APTT VBG pH 7.39 VBG pCO2 43 VBG pO2 44 VBG HCO3 26 VBG Total CO2 25 VBG O2 Saturation 78 VBG Base Excess 1 Sodium Potassium Chloride Carbon Dioxide Anion Gap BUN Creatinine Est GFR (CKD-EPI 2020) Glucose Calcium Magnesium Total Bilirubin AST ALT Alkaline Phosphatase Troponin I High Sens 2036 H* 3499 H* NT-Pro-B Natriuret Pep Total Protein Albumin Procalcitonin TSH Free T4 Urine Color Urine Clarity Urine pH Ur Specific [place] Urine Protein Urine Ketones Urine Blood Urine Nitrite Urine Bilirubin Urine Urobilinogen Ur Leukocyte Esterase Urine RBC Urine WBC Ur Epithelial Cells Urine Crystals Urine Bacteria Urine Casts Urine Mucus Ur Culture Indicated? Urine Glucose COVID-19 Source Nasopharynx SARS-CoV-2 (PCR) Negative Influenza Type A (PCR) Negative Influenza Type B (PCR) Negative RSV (PCR) Negative 05/30/24 05/30/24 05/30/24 01:37 04:38 08:04 WBC 6.82 RBC 2.45 L Hgb 7.7 L Hct 23.4 L MCV 96 H D MCH 31.4 MCHC 32.9 D RDW 19.9 H Plt Count 406 H MPV 11.7 H Immature Gran % Neutrophils % Lymphocytes % Monocytes % Eosinophils % Basophils % Nucleated RBC % Absolute Neutrophils Absolute Lymphocytes Absolute Monocytes Absolute Eosinophils Absolute Basophils RBC Morphology Anisocytosis APTT > 155.0 H* 69.7 H 141.3 H* VBG pH VBG pCO2 VBG pO2 VBG HCO3 VBG Total CO2 VBG O2 Saturation VBG Base Excess Sodium 141 Potassium 4.1 Chloride 103 Carbon Dioxide 27.3 Anion Gap 10.7 BUN 17 Creatinine 1.4 H Est GFR (CKD-EPI 2020) 43.07 Glucose 138 H Calcium 8.4 L Magnesium Total Bilirubin 0.36 AST 40 H ALT 29 Alkaline Phosphatase 580 H Troponin I High Sens 3676 H* 3969 H* NT-Pro-B Natriuret Pep Total Protein 6.7 Albumin 2.4 L Procalcitonin TSH Free T4 Urine Color Urine Clarity Urine pH Ur Specific [place] Urine Protein Urine Ketones Urine Blood Urine Nitrite Urine Bilirubin Urine Urobilinogen Ur Leukocyte Esterase Urine RBC Urine WBC Ur Epithelial Cells Urine Crystals Urine Bacteria Urine Casts Urine Mucus Ur Culture Indicated? Urine Glucose COVID-19 Source SARS-CoV-2 (PCR) Influenza Type A (PCR) Influenza Type B (PCR) RSV (PCR) Reviewed Pertinent PMH: Yes Objective Narrative Objective Narrative: Bedside [id number] ultrasound of her lungs reveals bilateral B-lines pattern in the lower lung sandoval however in the right lower lung field there appears to be subpleural consolidation as well as effusion upper lung sandoval show an A-line pattern. Limited bedside echo shows normal LV systolic function in the subxiphoid and the parasternal short axis view. Formal echocardiogram will be performed by the federal appellate law clerk Time Spent with Patient Time Spent with Patient: >50 minutes Time was spent: preparing to see the patient(eg.review tests), obtaining and/or reviewing separately otained hiistory, ordering medications,tests, procedures, referring, communicating with other health hearing care professional, indepentently interpreting results, counseling the patient and care coordination
--- NOTE | 2024-05-30 10:15 | RT.EKG_ITS ---
APPROVED REPORT Exam: Resting ECG Reason for Exam: NSTEMI Patient Location: I HR:89 bpm ECG Measurements Heart Rate 89 AXIS WV 143 P 80 QRSd 139 QRS 20 QT 383 T 196 QTc 467 Conclusion Sinus rhythm...normal P axis, V-rate 50- 99 Left bundle branch block...QRSd>120, broad/notched R
[2024-05-30 10:38] LABS: Lab Add On Test DONE
[2024-05-30] MEDS: Furosemide 20 MG/2 ML VIAL IVP (10:43)
[2024-05-30] MEDS: oxyCODONE 5 MG TAB 10 MG PO ×2 (10:44→20:43)
[2024-05-30 10:46] LABS: Troponin I 3643 ng/L (4-51)
[2024-05-30 10:50] LABS: Magnesium 1.5 mg/dL (1.8-2.4)
[2024-05-30 11:04] LABS: Lab Add On Test DONE
--- NOTE | 2024-05-30 11:17 | PHACLINREV_ITS ---
Pharmacy Admission Review Admission Clinical Review Admission Pharmacy Review: Macrocytic anemia (Acute) DVT prophylaxis (Acute) Hyperglycemia, drug-induced (Acute) Pneumonia (Acute) Non-ST elevation HI (NSTEMI) (Acute) COPD exacerbation (Acute) CHF exacerbation (Acute) No Known Allergies Allergy (Verified 05/29/24 14:11) Resuscitation Status Full Code Height 5 ft 5 in Weight 106.2 kg Comments Comments/Follow Ups: Accepted for transfer to [facility] [place] Pharmacy Admission Review Renal Dosing Renal Dosing: BUN 17 mg/dL (7-18) 05/30/24 04:38 Creatinine 1.4 mg/dL (0.55-1.02) H 05/30/24 04:38 Medications needing adjustments: Reviewed (CrCl 51.68 mL/min, SCr decreased from 1.6) List of meds needing interventions: Current medications are okay Anticoagulation Anticoagulation: Hgb 7.7 g/dL (11.2-15.7) L 05/30/24 04:38 Hct 23.4 % (36.0-46.0) L 05/30/24 04:38 Plt Count 406 10^3/uL (130-400) H 05/30/24 04:38 Creatinine 1.4 mg/dL (0.55-1.02) H 05/30/24 04:38 Therapeutic Anticoagulation: Intervened (aPTT at 0804 was 141.3, I noticed that the infusion had not been paused per protocol of aPTT > 105. I called nursing to make sure they were aware of the recent level, infusion was paused at 1102 for 1 hour and then will decrease by 3mL/hr per protocol) Medications: Heparin (infusion) Opiate Usage Evaluate Pain Scale/Pains Meds: Intervened (Patient had q8h PRN order for oxycodone and Percocet. Reached out to provider who asked that the Percocet order be discontinued.) Scheduled Bowel Reg ordered if on Opiates?: No (PRN docusate/Miralax) Relevant Labs Relevant Labs: Sodium 141 mmol/L (136-145) 05/30/24 04:38 Potassium 4.1 mmol/L (3.5-5.1) 05/30/24 04:38 Chloride 103 mmol/L (98-107) 05/30/24 04:38 Magnesium 1.5 mg/dL (1.8-2.4) L 05/30/24 10:18 Electrolytes, C-Reactive P, ESR: Reviewed (Mg 1.5) DM Control DM Control: Glucose 138 mg/dL (74-106) H 05/30/24 04:38 Finger Stick Blood Glucose 164 0836 Finger Stick Blood Glucose 164 0817 Finger Stick Blood Glucose 164 0817 DM Control: Reviewed Insulin Dosing, Diabetic Medication: Has order for SS insulin Cardiac Review Cardiac Review: NT-Pro-B Natriuret Pep 21512 pg/mL (<300) H 05/29/24 13:38 Blood Pressure 112/49 1017 Troponin Date Time Blood Pressure 106/56 0801 1108 05/29/24 1338 Blood Pressure 105/50 0601 963 05/29/24 1455 Blood Pressure 116/48 0401 2036 05/29/24 1820 Blood Pressure 109/48 0202 3499 05/29/24 2304 Blood Pressure 140/66 0001 3676 05/30/24 0137 3969 05/30/24 0438 3643 05/30/24 1018 BP, HR, EF%: Reviewed (HR WNL, most recent troponin level was decreased) List meds needing interventions: Has order for furosemide IVP BID and losartan 25mg daily QTc Review QTc: Reviewed (527 from 05/29/24) List meds needing interventions: Current medications are okay IV to PO Switch IV Medications: Reviewed (furosemide and Zosyn) Home Meds Home Med List reviewed: Intervened Relevent Home Meds Not ordered & why?: Eliquis (on hold per H+P), dexamethasone (taken prior to chemotherapy), famotidine, magic mouthwash (PRN), Narcan (PRN), omeprazole (has order for pantoprazole) and ondansetron (elevated QTc) Patient recently filled citalopram but is not on home med list. Called nursing who is checking with the patient. Waiting to hear back. Current Meds Current Medication Order Review: Intervened Comments: Aspirin order was pended by overnight pharmacy due to a comment on home med list about it having been discontinued by [facility] [place]. Spoke with provider t his morning who did want the patient on it. I then verified the order. Pharmacy Antibiotic Review Relevant Labs: Relevant Labs 05/29/24 13:38 Procalcitonin 0.5 WBC 6.82 10^3/uL (4.4-10.8) 05/30/24 04:38 Procalcitonin 0.5 ng/mL 05/29/24 13:38 Temperature 35.8 C Temperature 36.2 C Microbiology 05/29/24 15:05 Urine Culture - Preliminary Urine - Reflex from Ua Gram Negative [facility] Antibiotic Activity: C/S review and IV to PO (doxycycline) Comments: Patient is on doxycycline PO and Zosyn, day 1, for suspected pneumonia. Patient has received 1 dose of IV doxycycline and order as then changed to PO. Blood cultures pending. WBC decreased from 14.2. Comments Comments/Follow Ups: Accepted for transfer to [facility] [place]
[2024-05-30 11:18] LABS: Iron 43 ug/dL (50-170); Total Iron Binding Capacity 173 ug/dL (250-450); Transferrin Sat 25 % (15-50)
[2024-05-30 11:45] LABS: Folate 10.8 ng/mL (8.6-20.0)
[2024-05-30 11:47] LABS: Vitamin B12 > 2000 pg/mL (193-986)
[2024-05-30] MEDS: Normal Saline 50 ML (12:03)
[2024-05-30 14:47] LABS: PTT Activated 95.5 sec (23.6-32.8)
--- NOTE | 2024-05-30 16:40 | CHAPLAIN ---
I had a brief visit with Oksana. She was hoping to nap. I explained my role and offered support.
[2024-05-30 17:47] LABS: PTT Activated 71.5 sec (23.6-32.8)
[2024-05-30] MEDS: MAGNESIUM SULFATE 2 GM/50 ML BAG IVINF (20:44)
[2024-05-30] MEDS: Doxycycline Hyclate 100 MG CAP PO (20:45)
[2024-05-30] MEDS: Atorvastatin 40 MG TAB 80 MG PO (20:45)
[2024-05-30] MEDS: Magnesium Gluconate 500 MG TAB PO (20:45)
[2024-05-30] MEDS: QUEtiapine 50 MG TAB 150 MG PO (20:46)
[2024-05-30 23:52] LABS: PTT Activated 45.7 sec (23.6-32.8)
[2024-05-31] VITALS (34 sets, daily range): BP systolic 96–124; BP diastolic 50–64; PULSE 64–104; RESP 2–28; O2SAT 93–97
[2024-05-31] MEDS: Heparin in 0.45% NaCl 25,000 UNIT/250 ML BAG 7 UNIT IV (00:31)
[2024-05-31] MEDS: PIPERACILLIN/TAZO 3.375 GM in Normal Saline 50 ML IVPB ×2 (06:00→11:44)
[2024-05-31] MEDS: Normal Saline Flush 10 ML SYR IVP ×3 (06:00→20:03)
[2024-05-31] MEDS: Albuterol/Ipratropium 3 ML UPD VIAL UPD ×3 (06:00→17:35)
[2024-05-31] MEDS: oxyCODONE 5 MG TAB 10 MG PO ×3 (06:00→20:41)
[2024-05-31] MEDS: Levothyroxine 100 MCG TAB PO (06:00)
[2024-05-31 09:01] LABS: Anion Gap 8.5 mmol/L (3-11); BUN 30 mg/dL (7-18); CO2 30.5 mmol/L (21.0-32.0); CREATININE 1.7 mg/dL (0.55-1.02); Calcium 8.4 mg/dL (8.5-10.1); Chloride 103 mmol/L (98-107); Estimated GFR 34.12 (mL/min/1.73m2); Glucose 139 mg/dL (74-106); Magnesium 2.2 mg/dL (1.8-2.4); Potassium 3.9 mmol/L (3.5-5.1); Sodium 142 mmol/L (136-145)
--- NOTE | 2024-05-31 09:32 | PDOC.CMPRO ---
Date of service: 05/31/24 Time of Service: 09:32 Care Management Progress Note Progress Note Text Progress Note Text: Oksana was sitting up in bed when CM met with her. She stated that she no longer has chest pain and her troponins have started to come down. Oksana does have chronic back pain which is being managed with PRN Oxycodone. [facility] [place] for transfer Tuesday, however there is still no bed available. CM will follow. Discharge Potential Discharge Needs: Other (transfer to [facility] [place]) Anticipated Barriers to Discharge: Bed availability Transportation: EMS Plan: Oksana was admitted with an NSTEMI. She had a similar episode in the spring at which time she went to [facility] [place] and had a stent placed. She has been accepted in transfer by , [facility] [place] [facility] and is waiting for a bed. CM will follow and support discharge needs. SDOH(Care Management) Screening Will the Patient Participate in the Screening?: Yes Do you worry about having a steady place to live?: no Problems where you live: no known problems In the past 12 months, have you had to go without electric, gas, oil or water in your home?: no Have you or anyone in your house had to go without enough food to eat?: no Has lack of transportation kept you from medical appointments or from doing things needed for daily living?: no Has anyone in your support network made you feel unsafe for any reason?: no
[2024-05-31] MEDS: Furosemide 40 MG/4 ML VIAL IVP ×2 (09:36→16:15)
[2024-05-31] MEDS: Multivitamin TAB 1 TAB PO (09:37)
[2024-05-31] MEDS: Clopidogrel 75 MG TAB PO (09:37)
[2024-05-31] MEDS: Losartan 25 MG TAB PO (09:37)
[2024-05-31] MEDS: lamoTRIgine 100 MG TAB PO ×2 (09:37→19:59)
[2024-05-31] MEDS: Aspirin E.C. 81 MG TABEC PO (09:37)
[2024-05-31] MEDS: predniSONE 20 MG TAB 40 MG PO (09:37)
[2024-05-31] MEDS: Cholecalciferol (Vitamin D3) 1,000 UNIT TAB 1000 UNITS PO (09:37)
[2024-05-31] MEDS: Omega-3 Fatty Acids 1000 MG CAP PO (09:37)
[2024-05-31] MEDS: Metoprolol 25 MG TAB PO ×2 (09:37→16:15)
[2024-05-31] MEDS: Doxycycline Hyclate 100 MG CAP PO ×2 (09:37→20:00)
[2024-05-31] MEDS: Magnesium Gluconate 500 MG TAB PO ×2 (09:37→20:01)
[2024-05-31] MEDS: Baclofen 10 MG TAB 5 MG PO ×2 (09:38→20:01)
[2024-05-31] MEDS: Ferrous Sulfate 325 MG TAB PO (09:38)
[2024-05-31] MEDS: Pantoprazole 40 MG TABCR PO (09:38)
[2024-05-31 10:21] LABS: Absolute Basophil Count 0.01 10^3/uL (0.0-0.2); Absolute Monocyte Count 0.44 10^3/uL (0.1-0.8); Absolute Neutrophil Count 9.04 10^3/uL (1.2-6.7); Basophils % 0.1 %; HCT 23.9 % (36.0-46.0); HGB 7.8 g/dL (11.2-15.7); Immature Grans % 0.9 %; Lymphocytes % 11.4 %; MCH 31.2 pg (27.0-33.0); MCHC 32.6 % (32.0-36.0); MCV 96 fL (80-95); MPV 12.8 fL (8.0-11.0); Monocytes % 4.1 %; Neutrophils % 83.5 %; Platelet Count 476 10^3/uL (130-400); RDW 19.9 % (11.7-14.6); WBC 10.83 10^3/uL (4.4-10.8)
--- NOTE | 2024-05-31 10:42 | DSE_ITS ---
Date of service: 05/31/24 Time of Service: 10:43 DS: Diagnosis Discharge Diagnosis (1) Non-ST elevation NM (NSTEMI): Status: Acute Asessment and Plan: Patient with symptoms of chest tightness and dyspnea and was found to have elevated troponin I level of 1108 and peaked at 3969. Patient was treated with systemic heparin drip at her apixaban was placed on hold. She was found to be in acute congestive heart failure and received IV Lasix with improvement in her symptoms of dyspnea. Patient had no further chest pain throughout her hospital stay. Initial EKG showed sinus tachycardia with a incomplete left bundle branch block with diffusely peaked T waves across the precordial leads along with upward sloping ST segments and some reciprocal ST depression in the lateral leads. EKG changes improve with resolution of her chest pain and dyspnea. She was placed on dual antiplatelet therapy with Plavix and aspirin along with systemic heparin per recommendations from [facility] cardiology. Patient was accepted to the service of Dr. Wong. No beds were available on the day of her admission nor were any beds available at [facility] the following morning. She was then transferred on 05/31/2024 in hemodynamically stable condition. Echocardiogram was performed and showed some mild hypokinesis with an LVEF of 50 to 55%. With normal RV size and function. Her bioprosthetic TAVR to be well-seated with normal function. She was found to have mild to moderate mitral regurgitation. (2) CHF exacerbation: Status: Acute Asessment and Plan: Treated with IV diuretics with improvement in her symptoms. (3) COPD exacerbation: Status: Acute Asessment and Plan: Initially treated with IV Solu-Medrol then switched to oral prednisone. Treated with bronchodilators. Patient was also empirically treated for possible pneumonia with Zosyn and doxycycline which were then switched to oral cefpodoxime to treat her UTI as well as her COPD exacerbation (4) UTI due to Klebsiella species: Status: Acute Asessment and Plan: Negative blood cultures but positive urine culture for Klebsiella initially treated with IV Zosyn and then switched to oral cefpodoxime (5) Macrocytic anemia: Status: Acute Asessment and Plan: Stable hemogram with a hemoglobin varying between 7.7 g and 8.3 g. Patient did not exhibit any signs of acute bleeding. B12 folate levels were found to be nor mal (6) Pneumonia: Status: Ruled-out (7) Hyperglycemia, drug-induced: Status: Acute Asessment and Plan: Treated with sliding scale insulin (8) Paroxysmal atrial fibrillation: Status: Chronic Asessment and Plan: Patient remained in sinus rhythm throughout her hospital course. She was kept on her metoprolol. (9) Malignant neoplasm of upper-outer quadrant of left breast in female, estrogen receptor negative: Status: Chronic (10) Cancer related pain: Status: Chronic (11) Bipolar II disorder: Status: Chronic Asessment and Plan: Patient was kept on her home medications of Seroquel and lamotrigine Discharge Plan Disposition Patient Disposition: Transfer-Acute Inpatient Care Specific Acute Inpt Facility: [facility] Condition: Stable Discharge Details Reason For Visit: Non-STEMI, Exacerbation CHF, Exacerbation COPD Admit Date/Time: 05/29/24 20:29 Admit Provider: David Soler Attending Provider: David Soler Primary Care Provider: Gaudencio Scales [facility] Hospital Course Hospital Course: 58-year-old female with history of breast cancer currently undergoing chemotherapy, bipolar disorder, PAF, coronary artery disease with previous PCI earlier this year presents from cancer center with acute dyspnea while receiving her third infusion associated with some chest tightness. Patient was treated with Benadryl and dexamethasone although she had no other signs or symptoms of an acute allergic reaction such as rash or angioedema. Patient had some recent mild cough productive of white-yellow sputum no hemoptysis. In addition to her atrial fibrillation coronary artery disease and breast cancer she also has COPD. Evaluation emergency department included routine labs including CBC CMP proBNP and serial high-sensitivity troponin I levels. As well as EKG chest CT. Labs were remarkable for a leukocytosis of 14,200 and anemia with hemoglobin 8.3 g hematocrit 27% with macrocytic changes. Troponin high levels were elevated consistent with NSTEMI with her initial troponin I level being 1108 ng/L with subsequent readings of 963 2 hours later and then later on the evening of admission with further elevations of 2036, 3499 and the following morning peak ing at 3969 before starting to decline down to 3643. Her proBNP was elevated at 10,236. ECG on arrival demonstrates sinus tachycardia rate of 127 bpm with an incomplete left bundle branch block pattern with diffusely peaked T waves across the precordial leads and upward sloping ST segments. Subsequent ECG 1-1/2 hours after the initial ECG showed her rate was down to 96 bpm sinus rhythm with LVH with repolarization ST abnormalities. Specifically there was poor R waves across the anterior precordial leads V1 through V4 still with some peaked T waves, ST segments were not quite as sharply slow but still some J-point elevation there is some reciprocal T wave inversions in [address] Also there is ST depression in V5 and V6. With the abrupt rise in her troponin levels [facility] cardiology was consulted and they recommended withholding her apixaban that she been on for her PAF. They did recommend initiation of heparin and dual antiplatelet therapy. Patient was accepted to the service of , however due to lack of bed availability she was hospitalized at [facility] overnight. Her dyspnea improved with IV Lasix she had no further chest pain. Chest CT was read as showing no pulmonary embolism but bilateral pleural effusions and bibasilar alveolar edema versus pneumonia along with interlobular septal thickening consistent with pulmonary edema. Nevertheless patient was started on IV antibiotics including doxycycline and Zosyn for possible concomitant pneumonia. However the patient never spiked any fevers and her white cell count came down overnight. Procalcitonin level was checked on admission was indeterminate at 0.5. She was kept on IV antibiotics and then later switched to oral antibiotics. Her IV Solu-Medrol was switched to oral prednisone. She was maintained on IV furosemide and heparin and dual antiplatelet therapy including Plavix and aspirin. The following morning on 05/30/2024 [facility] cardiology called for update. They were advised the patient was hemodynamically stable having no further chest pain and marked improvement in her dyspnea with treatment of her CHF. An echocardiogram was performed on 05/30/2024 and demonstrated normal LV size with low normal sys tolic function with an LVEF of 50 to 55% with septal motion abnormality consistent with IVCD. RV was of normal size and normal systolic function. Atria were normal in size and bioprosthetic aortic valve was in well-seated position with normal function. She was found to have mild to moderate mitral regurgitation. Patient was found to be anemic on admission with a hemoglobin 8.3 g which dropped down to 7.7 g but there was no evidence of active bleeding. Her leukocytosis resolved and came down to 6820. Patient remained hemodynamically stable and was transferred to [facility] cardiology on 05/31/20[address] to the service of Dr. Wong. Patient was also found to have UTI, growing Klebsiella but no bacteremia. She was treated w/ Zosyn and doxycycline empirically for pneumonia but in retrospect, her infilatrates may just be from her CHF, although her lung POCUS did show some RLL subpleural consolidation. She was switched from iv zosyn to oral cefpodoxime. Home Meds and New Rx's Prescriptions: No Action baclofen 10 mg tablet 5 mg PO BID Qty: 90 3RF losartan 25 mg tablet 25 mg PO DAILY Qty: 90 3RF naloxone [Narcan] 4 mg/actuation spray,non-aerosol 4 mg intranasal Q2M PRN (Reason: opioid overdose) Qty: 2 0RF Rx Instructions: spray 1 dose into ONE nostril; alternate nostrils w each dose until help arrives oxycodone-acetaminophen 10-325 mg tablet 1 tab PO Q8H MDD 30 mg PRN (Reason: pain) Qty: 84 0RF famotidine 40 mg tablet 40 mg PO DAILY Fish Oil 300-500 mg capsule 1 cap PO DAILY Patient Comments: Did not disclose exact type and dose ferrous sulfate 325 mg (65 mg iron) tablet,delayed release (DR/EC) 325 mg PO DAILY Patient Comments: Patient did not disclose exact dosage multivitamin Tablet 1 tab PO DAILY cholecalciferol (vitamin D3) 25 mcg (1,000 unit) capsule 25 mcg PO DAILY quetiapine 100 mg tablet 100 mg PO QHS Qty: 90 3RF lamotrigine 100 mg tablet 100 mg PO BID Qty: 180 3RF clopidogrel 75 mg tablet 75 mg PO DAILY Patient Comments: Take for 12 months. Stop 11/30/2024 ipratropium-albuterol 0.5 mg-3 mg(2.5 mg base)/3 mL solution for nebulization 3 ml inhalation Q4H PRN metoprolol succinate 50 mg tablet extended release 24 hr 50 mg PO BID nitroglycerin 0.4 mg tablet, sublingual 0.4 mg sublingual Q5M PRN Rx Instructions: do not exceed 3 doses per episode atorvastatin 80 mg tablet 80 mg PO DAILY aspirin [Adult Low Dose Aspirin] 81 mg tablet,delayed release (DR/EC) 81 mg PO DAILY Qty: 90 4RF Rx Instructions: Take ASA for 1 month until 01/01/2024 then stop for 11 months, the restart after Clopidogrel is stopped. PER [facility] Cardiology discharge on 12/03/2023 Eliquis 5 mg tablet 5 mg PO BID Qty: 180 3RF levothyroxine 100 mcg tablet 100 mcg PO DAILY Qty: 90 3RF omeprazole 40 mg capsule,delayed release(DR/EC) See Rx Instructions .ROUTE .COMPLEX Qty: 90 3RF Dose Instruction: TAKE 1 CAPSULE BY MOUTH DAILY Rx Instructions: TAKE 1 CAPSULE BY MOUTH DAILY quetiapine 50 mg tablet 150 mg PO QHS Rx Instructions: May take up 200 mg QHS, if needed for sleep. quetiapine 25 mg tablet 12.5 mg PO DAILY PRN (Reason: anxiety) Rx Instructions: May take up to 1 full tablet ondansetron HCl 4 mg tablet 8 mg PO DAILY PRN (Reason: nausea and vomiting) Qty: 90 0RF lidocaine HCl 2 % solution 5 ml PO BID PRN Patient Comments: TAKE 1ML TO 2ML BY MOUTH ONCE DAILY NEEDED FOR PAIN (MUST MIX WITH EQUAL PARTS BENADRYL AND MAALOX) dexamethasone 4 mg tablet 8 mg PO DAILY Patient Comments: TAKE ONE TABLET BY MOUTH EVERY DAY. 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 Discharge Instructions Instructions: Heart attack Activity:: Activity as Tolerated Equipment/Supplies:: No Equipment Needed Diet:: Low Sodium DS: Summary Time Spent with Patient providing and/or coordinating discharge services: Greater than 30 minutes Specific discharge activities: Interview/exam of patient, educating patient and/or family about need for transfer and alternative treatment options, coordination of transfer w/ receiving facility and discussion of case w/ accepting provider(s), completion of transfer orders and discharge summary Status at Discharge Functional status at discharge: independent ambulation Overall status at discharge: patient is progressing back to baseline Mental Status: mental status grossly normal Speech and Movement: speech and movement normal Mood: congruent mood Affect: normal affect Quality:SDOH Health Related Social Needs: No Data to Display Exam Narrative Exam Narrative: Oksana is sitting up in bed no acute distress alert and orient x 3 Lungs are clear to auscultation today. Heart is regular rate and rhythm with soft systolic murmur along the aortic outflow tract consistent with her TAVR Abdomen is obese soft and nontender Lower extremities without pitting edema Psych Mental Status: mental status grossly normal Speech and Movement: speech and movement normal Mood: congruent mood Affect: normal affect DS: Data Vitals/I&O Vitals and I&O: Vital Signs Temperature 35.8 C L 09/11/24 04:25 Temperature Source Temporal Artery Scan 05/30/24 04:25 Pulse 90 05/31/24 02:02 Pulse 92 H 05/31/24 02:02 Respiratory Rate 17 05/31/24 02:02 Respiratory Effort Short of Breath, Incrsd Work of Breathing 05/29/24 21:40 Respiratory Depth Shallow 05/29/24 21:40 Respiratory Pattern Normal 05/29/24 21:40 Blood Pressure 100/64 05/31/24 02:02 Blood Pressure Mean 76 05/31/24 02:02 Blood Pressure Position Supine 05/29/24 21:40 Pulse Oximetry 94 05/30/24 18:20 Oxygen Delivery Method Room Air 05/30/24 18:20 Oxygen Flow Rate 0 05/30/24 18:20 Fraction of Inspired Oxygen (FIO2) 50 05/29/24 14:10 Pain Level 5 05/30/24 09:02 Comment 4 LPM NC 05/29/24 16:01 Intake & Output 05/30/24 05/30/24 05/31/24 11:59 23:59 11:59 Intake Total 505.166 / 639.383 134.217 / 639.383 83.516 / 83.516 Output Total 425 / 3325 2900 / 3325 1700 / 1700 Balance 80.166 / -2685.617 -2765.783 / -2685.617 -1616.484 / -1616.484 Intake: IV 325.166 / 459.383 134.217 / 459.383 83.516 / 83.516 Oral 180 / 180 Output: Urine 425 / 3325 2900 / 3325 1700 / 1700 Other: Urine Color Yellow Pale Yellow Urine Appearance Clear Clear Clear Urine Odor Strong None Comment external female cath , change at 09:23 Voiding Methods Bedside Commode Data Completed and Pending Labs on day of discharge: Labs from last 24 hours 05/31/24 05/31/24 05/30/24 06:00 05:35 23:15 WBC Pending RBC Pending Hgb Pending Hct Pending MCV Pending MCH Pending MCHC Pending RDW Pending Plt Count Pending MPV Pending Immature Gran % Pending Neutrophils % Pending Lymphocytes % Pending Monocytes % Pending Eosinophils % Pending Basophils % Pending Absolute Neutrophils Pending Absolute Lymphocytes Pending Absolute Monocytes Pending Absolute Eosinophils Pending Absolute Basophils Pending APTT Pending 45.7 H Sodium Pending Potassium Pending Chloride Pending Carbon Dioxide Pending Anion Gap Pending BUN Pending Creatinine Pending Est GFR (CKD-EPI 2020) Pending Glucose Pending Calcium Pending Magnesium Pending Iron TIBC Transferrin % Sat Troponin I High Sens Vitamin B12 Folate Add-On Test Request 05/30/24 05/30/24 05/30/24 17:10 13:25 10:18 WBC RBC Hgb Hct MCV MCH MCHC RDW Plt Count MPV Immature Gran % Neutrophils % Lymphocytes % Monocytes % Eosinophils % Basophils % Absolute Neutrophils Absolute Lymphocytes Absolute Monocytes Absolute Eosinophils Absolute Basophils APTT 71.5 H 95.5 H* Sodium Potassium Chloride Carbon Dioxide Anion Gap BUN Creatinine Est GFR (CKD-EPI 2020) Glucose Calcium Magnesium 1.5 L Iron TIBC Transferrin % Sat Troponin I High Sens 3643 H* Vitamin B12 Folate Add-On Test Request 05/30/24 04:38 WBC RBC Hgb Hct MCV MCH MCHC RDW Plt Count MPV Immature Gran % Neutrophils % Lymphocytes % Monocytes % Eosinophils % Basophils % Absolute Neutrophils Absolute Lymphocytes Absolute Monocytes Absolute Eosinophils Absolute Basophils APTT Sodium Potassium Chloride Carbon Dioxide Anion Gap BUN Creatinine Est GFR (CKD-EPI 2020) Glucose Calcium Magnesium Iron 43 L TIBC 173 L Transferrin % Sat 25 Troponin I High Sens Vitamin B12 > 2000 H Folate 10.8 Add-On Test Request DONE Preliminary micro results at discharge 05/29/24 15:20 Blood Culture - Preliminary Blood NO GROWTH 24 HOURS 05/29/24 15:04 Blood Culture - Preliminary Blood NO GROWTH 24 HOURS PFSH All Active Problems (Updated 05/31/24 @ 12:05 by Juanpablo Porter MD) UTI due to Klebsiella species (Acute) Macrocytic anemia (Acute) DVT prophylaxis (Acute) Hyperglycemia, drug-induced (Acute) Non-ST elevation NM (NSTEMI) (Acute) COPD exacerbation (Acute) CHF exacerbation (Acute) Bipolar II disorder (Chronic) Cancer related pain (Chronic) Paroxysmal atrial fibrillation (Chronic) Malignant neoplasm of upper-outer quadrant of left breast in female, estrogen receptor negative (Chronic 02/10/24) [facility] (Dr Lyn oncology on 02/28/[address] Fulton (surgical oncology) on 03/14/2024 Difficulty coping (Acute 03/13/24) 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; managed by [facility] custodial current use of antipsychotic medication (Acute) Nocturnal hypoxia (Acute) Family history of breast cancer in first degree relative (Chronic) Sister Family history of coronary artery disease in brother (Acute) Ex-smoker for more than 1 year (Acute) Iron deficiency (Acute) Gout (Chronic) 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 (Acute) Other cervical disc displacement at C5-C6 level (Acute) Cervicalgia (Acute) 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) Medical History GERD (gastroesophageal reflux disease) Hypothyroidism Peripheral arterial disease Coronary artery disease Chronic kidney disease, stage 4 (severe) Essential (primary) hypertension Bipolar 1 disorder Hodgkin disease Surgical History S/P breast biopsy, left (03/26/24) [facility] Coronary angioplasty status 11/28/2023 Proximal RCA,LAD LCX lesions at [facility] History of coronary artery stent placement 11/28/2023 Stent placement ostial RCA and 12/02/2023 Stent placement Distal LM at [facility] S/P TAVR (transcatheter aortic valve replacement) Social History Smoking/Tobacco Use Status: Former Tobacco Use tobacco type: cigarettes Tobacco: How many years used: 30 Smoking risk assessment performed?: Yes Alcohol Intake: never Drug use: Never Adopted: No Caregiver/Support person: No Foster care: No Housing: apartment Number of Children: 2 number of grandchildren: 8 Communication Needs: None Education Level: middle school current occupation: Disabled Pets and animals: No Sexually active: No Current gender identity: female What is your relationship status?: How often do you talk on the phone with friends or family?: three or more times per week How often do you get together with friends or relatives?: once per week Do you belong to any clubs or organized social groups?: no Panel score (0-1 are the most socially isolated patients): 1 What type of physical activity do you participate in: walking Duration: 15-30 minutes/day Frequency: 3-4 times per week Josefa/Yazidism: Adventism Special josefa needs: No Seatbelt use: always Helmet use: No (Sometimes - Never) Drive intox or ride w/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
[2024-05-31 11:40] LABS: Absolute Lymphocyte Count 1.23 10^3/uL (1.2-3.4)
[2024-05-31 11:41] LABS: Diff Comment Agrees w/ Instrument; RBC Morphology Normal
[2024-05-31 11:42] LABS: PTT Activated 72.4 sec (23.6-32.8)
[2024-05-31] MEDS: Insulin Aspart 300 UNITS/3 ML PEN SC (16:58)
[2024-05-31] MEDS: Atorvastatin 40 MG TAB 80 MG PO (20:00)
[2024-05-31] MEDS: QUEtiapine 50 MG TAB 150 MG PO (20:02)
[2024-05-31 21:33] LABS: PTT Activated 85.8 sec (23.6-32.8)
[2024-05-31 23:25] LABS: Legionella Ag Detection Urine Negative (Negative)
[2024-06-01 17:48] LABS: Troponin T, 5th gen, P 313 ng/L (<=10)
[2024-06-03 17:05] LABS: Streptococcus Pneumoniae Ag, U Negative (Negative)
== END 2024-05-31 22:00 | disposition short-term general hospital (02) | DRG 280 ==
LOC: ER 17:01 → ICU 05-30 00:40
PROVIDERS: Emergency Medicine; Internal Medicine; Admitting Provider Family Medicine; Emergency Provider Emergency Medicine; PCP Family Medicine; Visit Provider Family Medicine
DX: I21.4 Non-ST elevation (NSTEMI) myocardial infarction (principal); I50.33 Acute on chronic diastolic (congestive) heart failure; J18.9 Pneumonia, unspecified organism; J44.0 Chronic obstructive pulmonary disease with (acute) lower respiratory infection; J44.1 Chronic obstructive pulmonary disease with (acute) exacerbation; F31.81 Bipolar II disorder; N39.0 Urinary tract infection, site not specified; I13.0 Hypertensive heart and chronic kidney disease with heart failure and stage 1 through stage 4 chronic kidney disease, or unspecified chronic kidney disease; D84.821 Immunodeficiency due to drugs; I48.0 Paroxysmal atrial fibrillation; Z87.891 Personal history of nicotine dependence; R73.9 Hyperglycemia, unspecified; Z17.1 Estrogen receptor negative status [ER-]; G89.3 Neoplasm related pain (acute) (chronic); D53.9 Nutritional anemia, unspecified; B96.89 Other specified bacterial agents as the cause of diseases classified elsewhere; C50.412 Malignant neoplasm of upper-outer quadrant of left female breast; T38.0X5A Adverse effect of glucocorticoids and synthetic analogues, initial encounter; Z79.891 Long term (current) use of opiate analgesic; E61.1 Iron deficiency; Z82.49 Family history of ischemic heart disease and other diseases of the circulatory system; M1A.9XX0 Chronic gout, unspecified, without tophus (tophi); K21.9 Gastro-esophageal reflux disease without esophagitis; E03.9 Hypothyroidism, unspecified; I73.9 Peripheral vascular disease, unspecified; I25.10 Atherosclerotic heart disease of native coronary artery without angina pectoris; Z95.5 Presence of coronary angioplasty implant and graft; Z85.71 Personal history of Hodgkin lymphoma; Z95.3 Presence of xenogenic heart valve; I34.0 Nonrheumatic mitral (valve) insufficiency; Z79.899 Other long term (current) drug therapy
CPT/HCPCS: 00123; 36415; 36592; 71275; 76604; 80048; 80053; 82805; 84145; 84484; 85027; 87040; 87077; 87449; 87637; 93005; 93308; 94640; 96365; 96366; 96367; 96375; 99285; 81003; 81015; 82607; 82746; 83540; 83550; 83735; 83880; 84439; 84443; 85025; 85730; 87086; 87186; 87899; 93010; 93306; 99223; 99233; 99239; J1644; J1815; J1940; J1941; J2543; J2919; J3475; J7512; J7614; J7620

== ENCOUNTER 2024-07-08 13:34 | Emergency (ER) | payer MEDICARE, MEDICAID, SELFPAY ==
[2024-07-08 13:36] VITALS: BP 98/62; PULSE 104; RESP 10; TEMP 36.6; O2SAT 95
--- NOTE | 2024-07-08 14:15 | DI.RAD_ITS ---
Exam(s) XR CHEST 2V PA LATERAL EXAM: XR CHEST 2V PA LATERAL CLINICAL HISTORY: hx breast ca, nause vomiting. TECHNIQUE: 2D digital imaging was performed. COMPARISON: CR,XR XR PORTABLE CHEST AP from 11/28/2023 FINDINGS: 2 views: Aortic valve TAVR is again noted. There is a right sided Port-A-Cath. Distal tip is in satisfactory position in the lower SVC. Heart size is normal. The mediastinum is not widened. Lungs are clear. No infiltrates nor pleural effusions. No ominous pulmonary nodules. Left-sided coronary artery stent is noted. IMPRESSION: No acute pulmonary findings.Aortic valve TAVR. Normal heart size. DATA REPOSITORY: RADIATION DOSE DELIVERED:
--- NOTE | 2024-07-08 14:15 | DI.CT_ITS ---
Exam(s) CT HEAD WO EXAM: CT HEAD WO CLINICAL HISTORY: breast ca, vomiting. TECHNIQUE: Imaging Protocol: Axial computed tomography images with coronal and sagittal reformatted images were created and reviewed COMPARISON: No exams were available for comparison FINDINGS: There are no skull fractures. No significant lytic nor blastic lesions in the skull. There is no fl uid in the visualized paranasal sinuses. There is no evidence of intracranial hemorrhage, mass effect, or shift of midline structures. There are no extra-axial fluid collections. The ventricles are not enlarged or shifted and there is no blo od within the ventricular system nor within the basal cisterns. There is symmetrical calcification in both basal ganglia. There is also an independent 2-3 mm calcif ication in the left frontal lobe without an associated mass evident. There is some asymmetry in the size of the lateral ventricles, right larger than left. This probably developmental. No significant asymmetry in the cortical sulci over the convexities. IMPRESSION: No acute intracranial findings on this noninfused CT scan of the brain. Other findings as above. RADIATION DOSE DELIVERED: 922.45mGy.cm Total DLP DATA REPOSITORY: All CT scans at this facility are submitted to the National Radiology Data Registry (NRDR) Dose Index Registry (DIR) with the [employer] (ACR). RADIATION OPTIMIZATION: All CT scans at this facility use at least one of these dose optimization te chniques: automated exposure control; mA and/or kV adjustment per patient size (includes targeted exa ms where dose is matched to clinical indication); or iterative reconstruction.
--- NOTE | 2024-07-08 14:29 | W.ED.GENAD ---
Discharge Plan Disposition Patient Disposition: Transfer-Acute Inpatient Care Specific Acute Inpt Facility: [facility] Condition: Stable Discharge Details Chief Complaint: Nausea/Vomit/Diar Clinical Impression: Transaminitis, Hyperbilirubinemia, Abdominal pain, JOHN (acute kidney injury) Primary Care Provider: Gaudencio Scales ED Provider: Zachary Peralta Home Meds and New Rx's Prescriptions: No Action baclofen 10 mg tablet 5 mg PO BID Qty: 90 3RF naloxone [Narcan] 4 mg/actuation spray,non-aerosol 4 mg intranasal Q2M PRN (Reason: opioid overdose) Qty: 2 0RF Rx Instructions: spray 1 dose into ONE nostril; alternate nostrils w each dose until help arrives oxycodone-acetaminophen 10-325 mg tablet 1 tab PO Q8H MDD 30 mg PRN (Reason: pain) Qty: 84 0RF famotidine 40 mg tablet 40 mg PO DAILY Fish Oil 300-500 mg capsule 1 cap PO DAILY Patient Comments: Did not disclose exact type and dose ferrous sulfate 325 mg (65 mg iron) tablet,delayed release (DR/EC) 325 mg PO DAILY Patient Comments: Patient did not disclose exact dosage multivitamin Tablet 1 tab PO DAILY cholecalciferol (vitamin D3) 25 mcg (1,000 unit) capsule 25 mcg PO DAILY quetiapine 100 mg tablet 100 mg PO QHS Qty: 90 3RF lamotrigine 100 mg tablet 100 mg PO BID Qty: 180 3RF clopidogrel 75 mg tablet 75 mg PO DAILY Patient Comments: Take for 12 months. Stop 11/30/2024 ipratropium-albuterol 0.5 mg-3 mg(2.5 mg base)/3 mL solution for nebulization 3 ml inhalation Q4H PRN metoprolol succinate 50 mg tablet extended release 24 hr 50 mg PO BID nitroglycerin 0.4 mg tablet, sublingual 0.4 mg sublingual Q5M PRN Rx Instructions: do not exceed 3 doses per episode atorvastatin 80 mg tablet 80 mg PO DAILY Eliquis 5 mg tablet 5 mg PO BID Qty: 180 3RF levothyroxine 100 mcg tablet 100 mcg PO DAILY Qty: 90 3RF omeprazole 40 mg capsule,delayed release(DR/EC) See Rx Instructions .ROUTE .COMPLEX Qty: 90 3RF Dose Instruction: TAKE 1 CAPSULE BY MOUTH DAILY Rx Instructions: TAKE 1 CAPSULE BY MOUTH DAILY quetiapine 50 mg tablet 150 mg PO QHS Rx Instructions: May take up 200 mg QHS, if needed for sleep. quetiapine 25 mg tablet 12.5 mg PO DAILY PRN (Reason: anxiety) Rx Instructions: May take up to 1 full tablet torsemide 20 mg tablet 20 mg PO DAILY ondansetron HCl 4 mg tablet 8 mg PO Q6H PRN (Reason: nausea and vomiting) Qty: 90 3RF lidocaine HCl 2 % solution 5 ml PO BID PRN Patient Comments: TAKE 1ML TO 2ML BY MOUTH ONCE DAILY NEEDED FOR PAIN (MUST MIX WITH EQUAL PARTS BENADRYL AND MAALOX) dexamethasone 4 mg tablet 8 mg PO DAILY Patient Comments: TAKE ONE TABLET BY MOUTH EVERY DAY. TAKE ON DAYS 2-4 FOR EACH CHEMOTHERAPY CYCLE HPI General Date/Time Provider Initiated Documentation: 07/08/24 13:58. HPI Narrative: 58-year-old female history of active breast cancer has not been on chemotherapy for several weeks, scheduled for mastectomy in upcoming weeks, presents with intractable nausea and vomiting and fatigue over the last couple of days. Denies abdominal pain or lower GI symptoms. Related Data Home Medications ?Medication ?Instructions ?Recorded ?Confirmed famotidine 40 mg tablet 40 mg PO DAILY 10/03/23 07/08/24 ferrous sulfate 325 mg (65 mg 325 mg PO DAILY 10/03/23 07/08/24 iron) tablet,delayed release multivitamin 1 tab PO DAILY 10/03/23 07/08/24 omega-3 fatty acids-fish oil 300 1 cap PO DAILY 10/03/23 07/08/24 mg-500 mg capsule (Fish Oil) cholecalciferol (vitamin D3) 25 25 mcg PO DAILY 10/04/23 07/08/24 mcg (1,000 unit) capsule baclofen 10 mg tablet 5 mg (1/2 x 10 mg) PO BID #90 tabs 10/27/23 07/08/24 lamotrigine 100 mg tablet 100 mg PO BID #180 tabs 11/21/23 07/08/24 quetiapine 100 mg tablet 100 mg PO QHS #90 tabs 11/21/23 07/08/24 atorvastatin 80 mg tablet 80 mg PO DAILY 12/07/23 07/08/24 clopidogrel 75 mg tablet 75 mg PO DAILY 12/07/23 07/08/24 ipratropium 0.5 mg-albuterol 3 mg 3 ml inhalation Q4H PRN 12/07/23 07/08/24 (2.5 mg base)/3 mL nebulization soln metoprolol succinate 50 mg 50 mg PO BID 12/07/23 07/08/24 tablet,extended release 24 hr nitroglycerin 0.4 mg sublingual 0.4 mg sublingual Q5M PRN 12/07/23 07/08/24 tablet apixaban 5 mg tablet (Eliquis) 5 mg PO BID #180 tabs 12/27/23 07/08/24 levothyroxine 100 mcg tablet 100 mcg PO DAILY #90 tabs 12/27/23 07/08/24 naloxone 4 mg/actuation nasal 4 mg intranasal Q2M PRN opioid 02/14/24 07/08/24 spray (Narcan) overdose #2 ea omeprazole 40 mg capsule,delayed See Rx Instructions .Route 02/16/24 07/08/24 release .COMPLEX #90 caps quetiapine 25 mg tablet 12.5 mg PO DAILY PRN anxiety 03/15/24 07/08/24 quetiapine 50 mg tablet 150 mg PO QHS Sleep; anxiety 03/15/24 07/08/24 dexamethasone 4 mg tablet 8 mg PO DAILY 05/29/24 07/08/24 lidocaine HCl 2 % mucosal solution 5 ml PO BID PRN 05/29/24 07/08/24 torsemide 20 mg tablet 20 mg PO DAILY 06/05/24 07/08/24 oxycodone-acetaminophen 10 mg-325 1 tab PO Q8H PRN pain #84 tabs 07/05/24 07/08/24 mg tablet ondansetron HCl 4 mg tablet 8 mg (2 x 4 mg) PO Q6H PRN nausea 07/06/24 07/08/24 and vomiting #90 tabs Previous Rx's ?Medication ?Instructions ?Recorded baclofen 10 mg tablet 5 mg (1/2 x 10 mg) PO BID #90 tabs 10/27/23 lamotrigine 100 mg tablet 100 mg PO BID #180 tabs 11/21/23 quetiapine 100 mg tablet 100 mg PO QHS #90 tabs 11/21/23 apixaban 5 mg tablet (Eliquis) 5 mg PO BID #180 tabs 12/27/23 levothyroxine 100 mcg tablet 100 mcg PO DAILY #90 tabs 12/27/23 naloxone 4 mg/actuation nasal 4 mg intranasal Q2M PRN opioid 02/14/24 spray (Narcan) overdose #2 ea omeprazole 40 mg capsule,delayed See Rx Instructions .Route 02/16/24 release .COMPLEX #90 caps oxycodone-acetaminophen 10 mg-325 1 tab PO Q8H PRN pain #84 tabs 07/05/24 mg tablet ondansetron HCl 4 mg tablet 8 mg (2 x 4 mg) PO Q6H PRN nausea 07/06/24 and vomiting #90 tabs Allergies Allergy/AdvReac Type Severity Reaction Status Date / Time No Known Allergies Allergy Verified 07/08/24 13:42 General Stated Complaint: Nausea/Vomit/Diar AYE: 3 Exam Narrative Exam Narrative: Alert interactive Dry oromucosa Pale conjunctiva Speaking full sentences no respiratory distress lungs clear bilaterally no wheeze rales or rhonchi Abdomen soft nontender nondistended Normal heart sounds no murmurs rubs or gallops, mildly tachycardic Alert cranial nerves II through XII intact 5-5 strength upper and lower extremities bilaterally no ataxia, normal speech No peripheral edema noted Course Vital Signs Vital signs: Vital Signs Temperature 36.6 C 07/08/24 13:36 Pulse 104 H 07/08/24 13:36 Respiratory Rate 10 L 07/08/24 13:36 Blood Pressure 98/62 L 07/08/24 13:36 Pulse Oximetry 95 07/08/24 13:36 Temperature 36.6 C 07/08/24 13:36 Temperature Source Oral 07/08/24 13:36 Pulse 104 H 07/08/24 13:36 Respiratory Rate 10 L 07/08/24 13:36 Blood Pressure 98/62 L 07/08/24 13:36 Blood Pressure Position Sitting 07/08/24 13:36 Pulse Oximetry 95 07/08/24 13:36 Oxygen Delivery Method Room Air 07/08/24 13:36 Oxygen Flow Rate 0 07/08/24 13:36 Pain Level 0 07/08/24 13:36 Medical Decision Making 58-year-old female history of breast cancer, no longer being treated with chemotherapy is scheduled for mastectomy in the upcoming weeks, presents with intractable nausea and vomiting over the last couple of days, dry oral mucosa. Conjunctiva, no to be tachycardic and hypotensive, abdomen soft nontender nondistended no peripheral edema, no chest pain or shortness of breath lungs clear bilaterally, consider dehydration in the setting of vomiting, consider viral enteritis versus gastritis versus foodborne illness versus colitis versus must consider cholecystitis biliary colic versus UTI must consider COVID flu lower suspicion for atypical ACS PE or aortic pathology, although no neurologic dermatology intractable vomiting and cancer patient must consider mets to the brain with intracranial edema, obtain screening labs fluid hydration imaging of brain and abdomen urinalysis close reassessment 21: 18 labs concerning for obstructive biliary process consider biliary stone versus stricture, have reached out to GI team who thinks is reasonable for her to be transferred for further GI evaluation however will need approval by hospitalist team, waiting to hear back 23: 15 in-house over read of the read CT abdomen pelvis suggesting assessing peripheral pulses given incidental vascular finding on study, patient has equal strong proximal and peripheral pulses in lower extremities; resting her to be hemodynamically stable. Patient is been accepted by internal medicine Dr. Patel at [facility]. Quality:SDOH Health Related Social Needs: No Data to Display PFSH All Active Problems (Updated 07/08/24 @ 22:18 by Zachary Peralta MD) JOHN (acute kidney injury) (Acute) Abdominal pain (Acute) Hyperbilirubinemia (Acute) Transaminitis (Acute) Nonrheumatic aortic (valve) stenosis (Acute) Cardiomyopathy, ischemic (Acute) Arteriosclerotic cardiovascular disease (ASCVD) (Acute) Infusion reaction (Acute) Triple negative breast cancer (Acute 02/10/24) UTI due to Klebsiella species (Acute) Macrocytic anemia (Acute) Hyperglycemia, drug-induced (Acute) Non-ST elevation RI (NSTEMI) (Acute) COPD exacerbation (Acute) CHF exacerbation (Acute) Bipolar II disorder (Chronic) Cancer related pain (Chronic) Paroxysmal atrial fibrillation (Chronic) Malignant neoplasm of upper-outer quadrant of left breast in female, estrogen receptor negative (Chronic 02/10/24[place] [facility] [place] [facility]/28/[address] Fulton (surgical oncology) on 03/14/2024 Difficulty coping (Acute 03/13/24) 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; 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 medication (Acute) Nocturnal hypoxia (Acute) Family history of breast cancer in first degree relative (Chronic) Sister Family history of coronary artery disease in brother (Acute) Ex-smoker for more than 1 year (Acute) Iron deficiency (Acute) Gout (Chronic) 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 (Acute) Other cervical disc displacement at C5-C6 level (Acute) Cervicalgia (Acute) retirement (current) use of opiate analgesic (Chronic) Medical History GERD (gastroesophageal reflux disease) Hypothyroidism Peripheral arterial disease Coronary artery disease Chronic kidney disease, stage 4 (severe) Essential (primary) hypertension Bipolar 1 disorder Hodgkin disease Surgical History S/P breast biopsy, left (03/26/24) [facility]ary angioplasty status 11/28/2023 Proximal RCA,LAD LCX lesions [place] [facility] History of coronary artery stent placement 11/28/2023 Stent placement ostial RCA and 12/02/2023 Stent placement Distal LM [place] [facility] S/P TAVR (transcatheter aortic valve replacement) Social History Smoking/Tobacco Use Status: Former Tobacco Use tobacco type: cigarettes Tobacco: How many years used: 30 Smoking risk assessment performed?: Yes Alcohol Intake: never Drug use: Never Substance use type: does not use Adopted: No Caregiver/Support person: No Foster care: No Housing: apartment Number of Children: 2 number of grandchildren: 8 Communication Needs: None Education Level: middle school current occupation: Disabled Pets and animals: No Sexually active: No Current gender identity: female What is your relationship status?: How often do you talk on the phone with friends or family?: three or more times per week How often do you get together with friends or relatives?: once per week Do you belong to any clubs or organized social groups?: no Panel score (0-1 are the most socially isolated patients): 1 What type of physical activity do you participate in: walking Duration: 15-30 minutes/day Frequency: 3-4 times per week Josefa/Adventist: Christianity Special josefa needs: No Seatbelt use: always Helmet use: No (Sometimes - Never) Drive intox or ride w/intox security patrol driver: No Do you feel safe at home: Yes Do you feel safe in your relationship?: Yes
[2024-07-08 15:13] LABS: BE (Venous) 2 mmol/L (-2-3); HCO3 (Venous) 27 mmol/L (23-28); O2 Sat (Venous) 32 %; TCO2 (Venous) 26 mmol/L (24-29); pCO2 (Venous) 45 mmHg (41-51); pH (Venous) 7.38 (7.31-7.41); pO2 (Venous) 23 mmHg
[2024-07-08 15:19] LABS: Abs Immature Grans 0.04 10^3/uL (0.0-0.06); Absolute Basophil Count 0.05 10^3/uL (0.0-0.2); Absolute Eosinophil Count 0.08 10^3/uL (0.0-0.7); Absolute Lymphocyte Count 2.74 10^3/uL (1.2-3.4); Absolute Monocyte Count 0.73 10^3/uL (0.1-0.8); Absolute Neutrophil Count 6.47 10^3/uL (1.2-6.7); Basophils % 0.5 %; Eosinophils % 0.8 %; HCT 28.5 % (36.0-46.0); HGB 9.2 g/dL (11.2-15.7); Immature Grans % 0.4 %; Lymphocytes % 27.1 %; MCH 30.2 pg (27.0-33.0); MCHC 32.3 % (32.0-36.0); MCV 93 fL (80-95); MPV 11.6 fL (8.0-11.0); Monocytes % 7.2 %; Platelet Count 518 10^3/uL (130-400); RBC 3.05 10^6/uL (3.93-5.22); RDW 19.5 % (11.7-14.6); RDW-SD 65.3 fL; WBC 10.11 10^3/uL (4.4-10.8)
[2024-07-08] MEDS: Normal Saline 1,000 ML 1000 ML IV ×2 (15:21→17:16)
[2024-07-08 15:25] LABS: COVID-19 PCR Negative (Negative); Influenza A PCR Negative (Negative); Influenza B PCR Negative (Negative); RSV PCR Negative (Negative)
[2024-07-08 15:33] LABS: INR 1.1 (0.9-1.1); Prothrombin Time 11.4 sec (9.1-11.1)
[2024-07-08 15:33] LABS: Source NASOPHARYNX
[2024-07-08 15:48] LABS: ALT 93 U/L (14-59); AST 172 U/L (15-37); Albumin 2.8 g/dL (3.4-5.0); Anion Gap 17.7 mmol/L (3-11); BUN 43 mg/dL (7-18); Bilirubin, Total 1.62 mg/dL (0.2-1.0); CO2 26.3 mmol/L (21.0-32.0); Calcium 10.2 mg/dL (8.5-10.1); Chloride 98 mmol/L (98-107); Estimated GFR 7.99 (mL/min/1.73m2); Glucose 111 mg/dL (74-106); Lipase 31 U/L (16-77); Magnesium 2.5 mg/dL (1.8-2.4); Potassium 3.7 mmol/L (3.5-5.1); Sodium 142 mmol/L (136-145); TSH (W/Ref FT4) 1.34 uIU/mL (0.36-3.74); Total Protein 9.6 g/dL (6.4-8.2)
[2024-07-08 15:50] LABS: PTT Activated 39.7 sec (23.6-32.8)
--- NOTE | 2024-07-08 16:00 | DI.CT_ITS ---
Exam(s) CT ABDOMEN PELVIS WO EXAM: CT ABDOMEN PELVIS WO CLINICAL HISTORY: nausea vomiting. TECHNIQUE: Imaging Protocol: Axial computed tomography images with coronal and sagittal reformatted images were created and reviewed CONTRAST MATERIAL: Intravenous: none Oral: None COMPARISON: CT CT CHEST PE CTA from 05/29/2024 FINDINGS: VISUALIZED LUNG BASES: No nodules nor pleural effusions evident. This patient has an aortic valve TA VR, as evident on chest x-ray from today. ABDOMEN: There is no ascites. LIVER: There are no obvious focal hepatic lesions evident of this noninfused study. GALLBLADDER/BILIARY: The gallbladder surgically absent. CBD diameter is slightly prominent commensur ate with post cholecystectomy status. PANCREAS: No evidence of pancreatic mass nor dilatation of the pancreatic duct. SPLEEN: Spleen is not present, possibly surgically absent although there are no clips seen. ADRENALS: Small nodules in both adrenal glands noted, both measuring approximately 1.2 x 1.0 cm. KIDNEYS:Left kidney unremarkable. Right kidney is mildly atrophic and contains a tiny punctate nonob structive lower pole calyx calculus. No hydronephrosis nor hydroureter on either side. No solid mary al masses. Urinary bladder appears unremarkable.. ABDOMINAL AORTA: Abdominal aorta is heavily calcified but not enlarged. The iliac arteries are not e nlarged. There is some mild streaking around the origin of the right common iliac artery, possibly s ignificant.. LYMPH NODES: There is no retroperitoneal nor paraaortic adenopathy. ABDOMINAL WALL: No evidence of significant anterior abdominal wall nor inguinal hernia. GI: There is no evidence of bowel obstruction, free air, nor abscess. PELVIS: LYMPH NODES: There is no intrapelvic nor inguinal adenopathy. GI: No evidence of appendicitis.Redundant sigmoid but without significant sigmoid diverticular diseas e. URINARY BLADDER: No calculi nor obvious masses evident REPRODUCTIVE: Uterus is surgically absent. There are no abnormal adnexal masses nor free fluid in th e pelvis. OSSEOUS: Nonacute appearing compression fracture of L5 vertebral body which appears to contain some v ertebroplasty cement. No other fractures. No listhesis. No significant osseous lesions. IMPRESSION: 1. The gallbladder is surgically absent. CBD diameter is slightly prominent, most probably commensur ate with post cholecystectomy status. No evidence of appendicitis nor diverticulitis. 2. Small bilateral adrenal nodules noted. These are slightly denser than typical benign adenomas. S hould undergo follow-up MRI with adrenal mass protocol in and out of phase imaging 3. The abdominal aorta is heavily calcified but not enlarged. The left common iliac artery is heavil y calcified proximally but not enlarged. There is significantly less calcification in the right comm on iliac artery. However, there is mild haziness around the origin of the right common iliac artery. Sometimes this can be seen as an indirect sign accompanying intraluminal thrombus. Please note dakota t this is a noninfused study and therefore the internal lumen of the artery cannot be assessed. Isra elation with groin pulses recommended. RADIATION DOSE DELIVERED: 1,184.32mGy.cm Total DLP DATA REPOSITORY: All CT scans at this facility are submitted to the National Radiology Data Registry (NRDR) Dose Index Registry (DIR) with the [employer] ([employer]). RADIATION OPTIMIZATION: All CT scans at this facility use at least one of these dose optimization te chniques: automated exposure control; mA and/or kV adjustment per patient size (includes targeted exa ms where dose is matched to clinical indication); or iterative reconstruction.
[2024-07-08 16:03] LABS: CREATININE 5.7 mg/dL (0.55-1.02)
[2024-07-08 16:33] LABS: Alkaline Phosphatase 4732 U/L (46-116)
[2024-07-08 16:46] LABS: Bilirubin Small (Negative); Blood Moderate (Negative); Clarity Cloudy (Clear); Glucose Negative (Negative); Ketones Negative (Negative); Leukocyte Esterase Small (Negative); Nitrite Negative (Negative); Specific Gravity >= 1.030 (1.005-1.025); pH 5.5 (5-8)
[2024-07-08 16:56] LABS: Epithelial Cells Many HPF (Negative); Other Cells Rare Transitional (Negative); WBC >50 HPF (0-5)
[2024-07-08 16:57] LABS: Bacteria Many HPF (Negative); C & S Indicated? No/Sq. Contamination; Casts 3-5 Coarse Granular LPF (Negative); Crystals Negative HPF (Negative); Mucus Negative (Negative)
[2024-07-08 17:30] VITALS: BP 130/42; PULSE 76; RESP 14; TEMP 36.6; O2SAT 96
--- NOTE | 2024-07-08 18:12 | DI.VRAD_ITS ---
PROCEDURE INFORMATION: Exam: CT Head Without Contrast Exam date and time: 07/08/2024 4:45 PM Age: 58 years old Clinical indication: Other: Breast CA, vomitting TECHNIQUE: Imaging protocol: Computed tomography of the head without contrast. Radiation optimization: All CT scans at this facility use at least one of these dose optimization techniques: automated exposure control; mA and/or kV adjustment per patient size (includes targeted exams where dose is matched to clinical indication); or iterative reconstruction. COMPARISON: CR XR CERVICAL SPINE COMP 4-5V 01/17/2024 5:18 PM FINDINGS: Brain: Normal. No hemorrhage. Unremarkable white matter. No mass effect. Cerebral ventricles: No ventriculomegaly. Paranasal sinuses: Visualized sinuses are unremarkable. No fluid levels. Mastoid air cells: Visualized mastoid air cells are well aerated. Bones: Unremarkable. No acute fracture. Soft tissues: Unremarkable. IMPRESSION: No evidence for acute intracranial abnormality. Dictated and Authenticated by: Elsa Braun MD. Ordering:LUKE Sharma MD
[2024-07-08 18:19] VITALS: BP 141/49; PULSE 83; RESP 16; TEMP 26.6; O2SAT 99
--- NOTE | 2024-07-08 18:58 | DI.VRAD_ITS ---
Addendum created by Margarita Corral MD on 07/08/2024 7:42:44 PM EDT: THIS REPORT CONTAINS FINDINGS THAT MAY BE CRITICAL TO PATIENT CARE. The findings were verbally communicated via telephone conference with Zachary Peralta at 7:42 PM EDT on 07/08/2024. The findings were acknowledged and understood. A bone scan/oncology consult could be considered. Initial report created on 07/08/2024 6:57:57 PM EDT: PROCEDURE INFORMATION: Exam: XR Chest Exam date and time: 07/08/2024 4:55 PM Age: 58 years old Clinical indication: Other: HX breast CA, nause vomiting TECHNIQUE: Imaging protocol: Radiologic exam of the chest. Views: 2 views. COMPARISON: CT CHEST PE CTA 05/29/2024 2:11 PM FINDINGS: Tubes, catheters and devices: There is a right-sided port with tip overlying the SVC. Vascular stents overlie the cardiac shadow. Lungs: There is a mild interstitial pattern to the chest. This can be seen chronically or with pulmonary edema/atypical infection. Clinical correlation recommended. Pleural spaces: No pneumothorax. Heart/Mediastinum: No cardiomegaly. The cardiomediastinal contours are unchanged. There is persistent asymmetric prominence to the right hilum. Vasculature: There are vascular calcifications. Bones/joints: There is sclerosis to the mid aspect of the left clavicle. A bony metastatic focus is not excluded. IMPRESSION: 1.There is a mild interstitial pattern to the chest. This can be seen chronically or with pulmonary edema/atypical infection. Clinical correlation recommended. 2. There is sclerosis to the mid aspect of the left clavicle. A bony metastatic focus is not excluded. 3. Other findings/details as above. If symptoms remain concerning, CT scan recommended. Dictated and Authenticated by: Margarita Corral MD. Ordering:P.DISST Fabian Sharma MD
--- NOTE | 2024-07-08 19:25 | DI.VRAD_ITS ---
Addendum created by Margarita Corral MD on 07/08/2024 7:42:22 PM EDT: THIS REPORT CONTAINS FINDINGS THAT MAY BE CRITICAL TO PATIENT CARE. The findings were verbally communicated via telephone conference with Zachary Peralta at 7:38 PM EDT on 07/08/2024. The findings were acknowledged and understood. Per the ordering clinician, the patient has right upper quadrant pain and elevated lab values concerning for an obstructive process related to the biliary tree, such as a stone or stricture. He is involving GI. An MRCP could also be considered. It should be noted that impression #7 should read Nonspecific 5 mm left pulmonary nodule, unchanged from prior examination. Comparison with older imaging studies, if available, would be beneficial. Initial report created on 07/08/2024 7:24:55 PM EDT: PROCEDURE INFORMATION: Exam: CT Abdomen And Pelvis Without Contrast Exam date and time: 07/08/2024 4:48 PM Age: 58 years old Clinical indication: Other: Nausea, vomitting, HX breast CA, TECHNIQUE: Imaging protocol: Computed tomography of the abdomen and pelvis without contrast. Radiation optimization: All CT scans at this facility use at least one of these dose optimization techniques: automated exposure control; mA and/or kV adjustment per patient size (includes targeted exams where dose is matched to clinical indication); or iterative reconstruction. COMPARISON: CT CHEST PE CTA 05/29/2024 2:11 PM FINDINGS: Limitations: Evaluation of the intra-abdominal organs and vasculature is limited secondary to the lack of IV contrast. Evaluation of the bowel is limited secondary to the lack of oral contrast. Lungs: Evaluation of the lower lungs is limited secondary to respiratory motion. There are scattered areas of atelectasis versus scarring. Series 2, image 26 demonstrates a nonspecific 5 mm left pulmonary nodule, unchanged from prior exam. Esophagus: There is gas in the distal esophagus which can be seen with reflux. There is some wall prominence to the distal esophagus which can be seen with inflammation. Liver: Grossly homogeneous. Gallbladder and biliary ducts: Cholecystectomy. The common bile duct is measuring dilated. This may be secondary to the patient's cholecystectomy status. However, correlation with lab values suggested. Pancreas: Normal. No ductal dilation. Spleen: Normal. No splenomegaly. Adrenal glands: There is a 1.8 cm nodular region in the right adrenal gland measuring 14 Hounsfield units, not fulfilling the criteria for an adenoma. There is a nodular region in the left adrenal gland measuring 1.6 cm and 21 Hounsfield units, not fulfilling the criteria for an adenoma. Kidneys and ureters: No hydronephrosis. The left kidney is atrophic. Stomach and bowel: No obstruction. Moderate amount of stool in the colon which can be seen with constipation. There is hyperdensity in the terminal ileum which may be related to ingested products but should be correlated with any concern for blood products. Appendix: No evidence of appendicitis. Intraperitoneal space: Unremarkable. No free air. No significant fluid collection. Vasculature: There are vascular calcifications. Lymph nodes: Unremarkable. No enlarged lymph nodes. Urinary bladder: Urinary bladder wall prominence. This can be seen with infection or underdistention. Reproductive: Hysterectomy changes. Bones/joints: Skeletal degenerative changes. There is a compression deformity involving vertebral body L5 with some associated hyperdensity suggestive of vertebroplasty. Soft tissues: Unremarkable. IMPRESSION: 1. Limitations as discussed above. 2. Gas in the distal esophagus which can be seen with reflux. There is some wall prominence to the distal esophagus which can be seen with inflammation/esophagitis. 3. The common bile duct is measuring dilated. This may be secondary to the patient's cholecystectomy status. However, correlation with lab values suggested. 4. Moderate amount of stool in the colon which can be seen with constipation. There is hyperdensity in the terminal ileum which may be related to ingested products but should be correlated with any concern for blood products. 5. Urinary bladder wall prominence. This can be seen with infection or underdistention. 6. Lesions in the adrenal glands which do not fulfill the criteria for adenomas. An adrenal mass protocol MRI is recommended for further evaluation. 7. 2. Nonspecific 5 mm left pulmonary nodule, unchanged from prior examination. Comparison with older imaging studies, if available, would be beneficial. Dictated and Authenticated by: Margarita Corral MD. Ordering:LUKE Sharma MD
[2024-07-08 19:59] VITALS: BP 144/52; PULSE 83; RESP 15; TEMP 36.7; O2SAT 99
[2024-07-08 21:23] VITALS: BP 145/56; PULSE 80; RESP 14; TEMP 36; O2SAT 98
[2024-07-08 23:20] VITALS: BP 145/58; PULSE 81; RESP 16; O2SAT 98
[2024-07-08] MEDS: Ondansetron 4 MG/2 ML VIAL IVP (23:20)
== END 2024-07-08 23:32 | disposition short-term general hospital (02) ==
PROVIDERS: Emergency Provider Emergency Medicine; PCP Family Medicine
DX: R11.2 Nausea with vomiting, unspecified (principal); R74.01 Elevation of levels of liver transaminase levels; E80.6 Other disorders of bilirubin metabolism; N17.9 Acute kidney failure, unspecified; R93.7 Abnormal findings on diagnostic imaging of other parts of musculoskeletal system; C50.919 Malignant neoplasm of unspecified site of unspecified female breast; I48.0 Paroxysmal atrial fibrillation; I12.9 Hypertensive chronic kidney disease with stage 1 through stage 4 chronic kidney disease, or unspecified chronic kidney disease; N18.4 Chronic kidney disease, stage 4 (severe); I25.10 Atherosclerotic heart disease of native coronary artery without angina pectoris; Z95.2 Presence of prosthetic heart valve; Z95.5 Presence of coronary angioplasty implant and graft; Z90.49 Acquired absence of other specified parts of digestive tract; Z90.710 Acquired absence of both cervix and uterus; Z79.01 Long term (current) use of anticoagulants; Z79.02 Long term (current) use of antithrombotics/antiplatelets; Z79.899 Other long term (current) drug therapy; Z87.891 Personal history of nicotine dependence
CPT/HCPCS: 80053; 82805; 82962; 83690; 86850; 86900; 86901; 87040; 87637; 96361; 96374; 99285; 70450; 71046; 74176; 81003; 81015; 83735; 84443; 85025; 85610; 85730; J2405

== ENCOUNTER 2024-07-27 12:36 | Outpatient (REF) | payer MEDICARE, MEDICAID, SELFPAY ==
--- OUTSIDE RECORDS SUMMARY | 2024-07-27 12:42 | XMS_ITS | Encounter Summary ---
Author Organization Counts Include [facility] Address [facility] [place] [address] Care Team Providers Care Nurses' Association Counselor Name Role Phone Gaudencio Scales Antoine VERGARA Primary Care Provider [phone] Encounter Details Date Type Department Care Team (Latest Contact Info) Description 07/23/2024 Travel Social History Tobacco Use Types Packs/Day Years Used Date Smoking Tobacco: Former Cigarettes 1 40 0 11/17/1981 - 11/17/2021 Passive Smoke Exposure: Past Smokeless Tobacco: Never Comments:Denies vaping Alcohol Use Standard Drinks/Week Comments Not Currently 0 (1 standard drink = 0.6 oz pur e alcohol) B1300 Health Literacy Answer Date Recor ded How often do you need to hav e someone help you when you read instructions, pamphlets, or other written material from your doctor or pharmacy? Rarely 05/29/2024 [facility] Utilities Answer Date Recorded In the past 12 months has th e electric, gas, oil, or water company threatened to shut off services in your home? No 07/09/2024 Overall Financial Resource Strain (CARDIA) Answe r Date Recorded How hard is it for you to pa y for the very basics like food, housing, medical care, and heating? Not very hard 05/29/2024 Hunger Vital Sign Answer Date Recorded Within the past 12 months, y ou worried that your food would run out before you got the money to buy more. Never true 07/09/20 24 Within the past 12 months, t he food you bought just didn't last and you didn't have money to get more. Never true 07/09/2024 PRAPARE - Transportation Answer Date Re corded In the past 12 months, has l ack of transportation kept you from medical appointments or from getting medications? No 06/20 In the past 12 months, has l ack of transportation kept you from meetings, work, or from getting things needed for daily living? No 07/09/2024 Housing Stability Vital Sign Answer Jeferson e Recorded In the last 12 months, was t here a time when you were not able to pay the mortgage or rent on time? No 11/29/2023 In the last 12 months, how many places have you lived? 2 11/29/2023 In the last 12 months, was t here a time when you did not have a steady place to sleep or slept in a intermediate (including now)? No 11/29/2023 Housing Stability Vital Sign Answer Jeferson e Recorded In the last 12 months, was t here a time when you were not able to pay the mortgage or rent on time? No 07/09/2024 In the past 12 months, how m any times have you moved where you were living? 1 07/09/2024 At any time in the past 12 m [facility], were you homeless or living in a intermediate (including now)? No 07/09/2024 IPV Inpatient Questions Answer Date Recorded Does Anyone Try to Keep You From Having Contact with Others or Doing Things Outside Your Home? no 07/09/2024 Feels Threatened by Someone no 06/20 Feels Unsafe at Home or Work/School no 07/09/2024 Physical Signs of Abuse Present no 07/09/2024 Sex and Gender Information Value Date Recorded Sex Assigned at Not on file Gender Identity Not on file Sexual Orientation Not on file documented as of this encounter Plan of Treatment Upcoming Encounters Date Type Department Care Team (Latest Contact Info) Description 07/30/2024 8:40 AM EST Hospital [place] [address] Jr Fulton MD [facility] [place] [address] 07/30/2024 8:45 AM EST [place] [phone] Jr Fulton MD [facility] [place] [address] 07/30/2024 9:20 AM EST Hospital Encounter Mammography at [place] [address] Jr Fulton MD [facility] [place] [address] 07/30/2024 10:51 AM EST Hospital Encounter [place]patient [place] [address] Jr Fulton MD [facility] [place] [address] 07/30/2024 10:51 AM EST Anesthesia Event Outpatient Surgery Center [place] [address] Megan Orona APRN [place] [address] 07/30/2024 10:51 AM EST - 07/30/2024 1:11 PM EST Surgery Outpatient Surgery Center [address] Jr Fulton MD [facility] [place] [address] MASTECTOMY PARTIAL (WRVU 10.13) 08/22/2024 2:00 PM EST Office Visit General Surgery at [place] [address] Cindy Pierce APRN [facility] [place] [address] 08/22/2024 3:00 PM EST Office Visit Hematology and Oncology at [place] [phone] Soo Lyn MD [facility] [place] [address] 08/27/2024 9:30 AM EST Scheduled View Only Radiation Oncology at [address] [phone] Rad Nurse Josr 08/27/2024 10:00 AM EST Office Visit Radiation Oncology at [address] [phone] Paradise Prado MD [facility] [place] [address] 2024 1:00 PM EDT Office Visit Cardiology at [address] [address] Ham Montenegro MD [facility] [place] [address] Scheduled Procedures Name Priority Associated Diagnoses Date/Ti me MASTECTOMY PARTIAL (WRVU 10.13) Yes BREAST CANCER 07/30/2024 10:51 AM EST BIOPSY OR EXCISION OF LYMPH NODE(S), OPEN, DEEP AXILLARY NODE(S) (WRVU 6.43) Yes BREAST CANCER 07/30/2024 10:51 AM EST INTRAOPERATIVE ID (MAPPING) SENTINEL LYMPH NODE,INCLUDES INJECTION (WRVU 2.5) Yes BREAST CANCER 07/30/2024 10:51 AM EST MODIFIER WITH NEEDLE LOC., LESION #1 Yes BREAST CANCER 07/30/2024 10:51 AM EST MODIFIER WITH NEEDLE LOC.,LESION #2 Yes BREAST CANCER 07/30/2024 10:51 AM EST MODIFIER SENTINEL NODE EXCISION Yes BREAST CANCER 07/30/2024 10:51 AM EST EXCISION LESION, BREAST W/ PREOP.MARKER (NEEDLE LOC.) (WRVU 6.69) Yes BREAST CANCER 07/30/2024 10:51 AM EST documented as of this encounter Visit Diagnoses Not on filedocumented in this encounter Care Teams Nurses' Association Counselor Relationship Specialty Start Date End Date Gaudencio Scales DO [address] [place] [address] PCP - General Family Medicine 11/28/23 documented as of this encounter
--- OUTSIDE RECORDS SUMMARY | 2024-07-27 12:42 | XMS_ITS | Encounter Summary ---
Author Organization [facility] Address [facility] [place] [address] Care Team Providers Care Branch Account Manager Name Role Phone Gaudencio Scales Primary Care Provider [phone] Encounter Details Date Type Department Care Team (Late st Contact Info) Description 07/17/2024 Notes Only General Surgery [facility] [place] [address] Jr Fulton MD [facility] [address] [place] [address] Social History Tobacco Use Types Packs/Day Years [...] from your doctor or pharmacy? Rarely 05/29/[address] [facility] Utilities Answer Date Recorded In the past 12 months has [employer], gas, oil, or water [employer] threatened to shut off services in your [...] any time in the past 12 m [facility], were you homeless or living in a [...] on file documented as of this encounter Progress Notes * Jr Fulton MD - 07/17/2024 8:52 AM EDT I called Oksana this morning to discuss treatment with her. She was admitted to the hospital for the past several days and was treated with antibiotics for an Enterococcus UTI and for an acute kidney injury. Her creatinine was back down to the 1.6 range and she was discharged yesterday. There is also a problem with an elevated alkaline phosphatase (1999) and she had an extensive workup to try to understand whether there was a bile duct obstruction. The cause of the elevated alkalinephosphatase is still unclear, but no bile duct obstruction was seen. She was also noted to have a sclerotic focus on her clavicle and so the possibility of a bone metastasis was brought up and we requested that a PET CT scan be done before she was discharged but that was not done: it is scheduled for August 06. We cancelled her surgery because of her hospitalization and are having difficulty re-scheduling herfor surgery: bilateral mastectomy and targeted and sentinel node excision. I think it would be easier and safer for her given her other comorbidities if we were to do a partial mastectomy sentinel node and targeted node excision rather than a full bilateral mastectomy. We could always do a bilateral mastectomy at some time in the future if she wants to do that for risk reduction when she is healthier. She also had an GA in November 2023 and is on Eliquis and Plavix. At this point she like to just proceed with a wire localized left partial mastectomy and wire localization of the node that was biopsy positive for cancer prior to neoadjuvant chemotherapy and do a sentinel node excision with technetium and blue dye. She knows to stop the clopidogrel 5 days prior to surgery and apixaban 2 days prior to surgery. Will do her as a same-day surgery case. documented in this encounter Plan of Treatment Upcoming Encounters Date Type Department Care Team (Latest Contact Info) Description 07/30/2024 8:40 AM EST Hospital En[place] [address] Jr Fulton MD [facility] [place] [address] 07/30/2024 8:45 AM EST Appointment [place] [address] Jr Fulton MD [facility] [place] [address] 07/30/2024 9:20 AM EST Hospital Encounter Mammography at [place] [address] Jr Fulton MD [facility] [place] [address] 07/30/2024 10:51 AM EST Hospital Encounter Outpatient Surgery Center [place] [address] Jr Fulton MD [facility] [place] [address] 07/30/2024 10:51 AM EST Anesthesia Event Out[facility] [place] [address] Megan Oron[place] [address] 07/30/2024 10:51 AM EST - 07/30/2024 1:11 PM EST Surgery Outpatient Surgery [facility] [place] [address] Jr Fulton MD [facility] [place] [address] MASTECTOMY PARTIAL (WRVU 10.13) 08/22/2024 2:00 PM EST Office Visit General Surgery at [place] [address] Cindy Pierce APRN [facility] [place] [address] 08/22/2024 3:00 PM EST Office Visit Hematology and Oncology at [address] Soo Lyn MD [facility] [place] [address] 08/27/2024 9:30 AM EST Scheduled View Only Radiation Oncology at [address] [phone] Rad NurseSt Ovalles 08/27/2024 10:00 AM EST Office Visit Radiation Oncology at [address] [phone] Paradise Prado MD [facility] [place] [address] 2024 1:00 PM EDT Office Visit Cardiology at [address] [phone] Ham Montenegro MD [facility] [place] [address] Scheduled Procedures Name Priority Associated Diagnoses Date/Ti [...] on filedocumented in this encounter Care Teams Branch Account Manager Relationship Specialty Start Date End Date Gaudencio Scales DO [address] [place] [address] PCP - General Family Medicine 11/28/23 documented as of this encounter
--- OUTSIDE RECORDS SUMMARY | 2024-07-27 12:42 | XMS_ITS | Encounter Summary ---
Author Organization [facility] Address [facility] [place] [address] Care Team Providers Care Locum Tenens Hospitalist Name Role Phone Gaudencio Scales Antoine VERGARA Primary Care Provider [phone] Reason for Visit * Diagnostic Test (Routine) - Closed Specialty Diagnoses / Procedures Referred By Radha carr Referred To Contact Radiology Diagnoses Malignant neoplasm of upper-outer quadrant of left breast in female, estrogen receptor negative Procedures NM PET CT Skull Base to Mid-thigh Sandra Ken MD [facility] [place] [address] [place] [address] Referral ID Status Reason Start Date Expiration Date V isits Requested Visits Authorized [id number] Closed Specialty Service Requested 07/13/2024 01/11/2026 1 1 Encounter Details Date Type Department Care Team (Latest Contact Info) Description 07/23/2024 10:47 AM EST - 07/23/2024 11:59 PM [facility] Hospital Encounter [place] [address] Sandra Ken MD [facility] [place] [address] Arrived Discharge Disposition: Home Social History Tobacco Use Types Packs/Day Years [...] from your doctor or pharmacy? Rarely 05/29/2024 [facility] Utilities Answer Date Recorded In the past [...] place to sleep or slept in a correction (including now)? No 11/29/2023 Housing Stability Vital Sign Answer Jeferson e Recorded In the last 12 months, was t here a time when you were not able to pay the mortgage or rent on time? No 07/09/2024 In the past 12 months, how m any times have you moved where you were living? 1 07/09/2024 At any time in the past 12 m [facility], were you homeless or living in a correction (including now)? No 07/09/2024 IPV Inpatient Questions [...] on file documented as of this encounter Medications at Time of Discharge Medication Sig Dispensed Refills Start Date End Date torsemide (Demadex) 20 mg tablet Take 1 tablet by mouth every other day. If you gain 2lbs in one day, take daily 07/16/2024 senna-docusate (Pericolace) 8.6-50 mg Tablet Take 2 tablets by mouth 2 times daily as needed for Constipation. 30 tablet 3 07/16/2024 ursodioL (Actigall) 300 mg capsule Take 1 capsule by mouth 2 times daily (with meals). 60 tablet 07/16/2024 fish oil-omega-3 fatty acids (Fish Oil) 1,000 mg capsule Take 2 g by mouth daily. diphenhydrAMINE/alumin um-magnesium hydroxide with simethicone/lidocaine (BMX) (6.67 mg-0.83 mg-13.33 mg-1.33 mg/mL) oral liquidIndications:Marlyn gnant neoplasm of upper-outer quadrant of left breast in female, estrogen receptor negative,Medication management Take 20-30 mLs by mouth every 4 hours as needed. 240 mL 3 05/11/2024 lidocaine (Xylocaine) 2 % SolutionIndications:Ma lignant neoplasm of upper-outer quadrant of left breast in female, estrogen receptor negative,Medication management Take 1-2 mLs by mouth as needed for Pain (Please addiction counselor patient on equal parts benadryl and Maalox.). 100 mL 1 05/11/2024 QUEtiapine (Seroquel) 50 mg tablet TAKE ONE TABLET BY MOUTH EVERY NIGHT IN ADDITION TO 100MG TABLET. MAY TAKE UP TO 200MG AT BEDTIME IF NEEDED FOR SLEEP 60 tablet 04/30/2024 diclofenac (Voltaren) 1 % GelIndications:Maligna nt neoplasm of upper-outer quadrant of left breast in female, estrogen receptor negative,Medication management Apply 2 g topically 2 times daily. 200 g 1 04/25/2024 multivitamin (THERAGRAN) Tablet Take 1 tablet by mouth daily. iron,carb/vit C/vit B12/folic (IRON 100 PLUS ORAL) Take by mouth. atorvastatin (Lipitor) 80 mg tablet Take 1 tablet by mouth Daily at Noon. 90 tablet 3 12/04/2023 clopidogreL (Plavix) 75 mg tablet Take 1 tablet by mouth daily. 90 tablet 3 12/04/2023 nitroGLYcerin (Nitrostat) 0.[address] 1 tablet under the tongue every 5 minutes as needed for Chest pain. 90 tablet 12 12/04/2023 ipratropium-albuteroL (Duoneb) 0.5 mg-3 mg(2.5 mg base)/3 mL Solution for Nebulization Take 0.5 mg by nebulization every 4 hours. 1 each 4 12/04/2023 metoprolol succinate XL (Toprol-XL) 50 mg ER 24 hr tablet Take 1 tablet by mouth 2 times daily. 30 tablet 12 12/04/2023 apixaban (Eliquis) 5 mg tablet Take 5 mg by mouth 2 times daily. lamoTRIgine (LaMICtal) 100 mg tablet Take 1 tablet by mouth 2 times daily. 11/21/2023 oxyCODONE-acetaminophe n (Percocet) 10-325 mg tablet Take 1 tablet by mouth every 8 hours as needed. 11/21/2023 QUEtiapine (SEROquel) 100 mg tablet Take 100 mg by mouth nightly. 11/21/2023 levothyroxine (Synthroid) 100 mcg tablet Take 100 mcg by mouth. 01/12/2006 omeprazole (PRILOSEC) 20 mg capsule 20M Capsule(s), PO, Once daily 01/12/2006 ondansetron (Zofran) 8 mg tablet Take 1 tablet by mouth every 8 hours as needed for Nausea. 60 tablet 05/11/2024 07/25/2024 documented as of this encounter Plan of Treatment Upcoming Encounters Date Type Department Care Team (Latest Contact Info) Description 07/30/2024 8:40 AM EST Hospital En[place] [phone] Jr Fulton MD [facility] [place] [address] 07/30/2024 8:45 AM EST Appointment Mammography at [address] Jr Fulton MD [facility] [place] [address] 07/30/2024 9:20 AM EST Hospital Encounter Mammography at [address] Jr Fulton MD [facility] [place] [address] 07/30/2024 10:51 AM EST Hospital Encounter Outpatient Surgery Center [address] Jr Fulton MD [facility] [place] [address] 07/30/2024 10:51 AM EST Anesthesia Event Outpatient Surgery Center [place] [address] Megan Oron[place] [address] 07/30/2024 10:51 AM EST - 07/30/2024 1:11 PM EST Surgery Outpatient Surgery Center [place] [phone] Jr Fulton MD [facility] [place] [address] MASTECTOMY PARTIAL (WRVU 10.13) 08/22/2024 2:00 PM EST Office Visit General Surgery at [address] Cindy Pierce APRN [facility] [place] [address] 08/22/2024 3:00 PM EST Office Visit Hematology [place] [phone] Soo Lyn MD [facility] [place] [address] 08/27/2024 9:30 AM EST Scheduled View Only Radiation Oncology at [address] [phone] Rad Nurse, [facility] 08/27/2024 10:00 AM EST Office Visit Radiation Oncology at [address] [phone] Paradise Prado MD [facility] [place] [address] 2024 1:00 PM EDT Office Visit Cardiology at [address] [place] [address] Ham Montenegro MD [facility] [place] [address] Scheduled Procedures Name Priority Associated Diagnoses Date/Ti [...] AM EST documented as of this encounter Procedures Procedure Name Priority Date/Time Associated Diagnosis Comments NM PET CT SKULL BASE TO MID-THIGH ([facility]) Routine 07/23/2024 12:17 PM EST Malignant neoplasm of upper-outer quadrant of left breast in female, estrogen receptor negative POC, GLUCOSE Routine 07/23/2024 10:55 AM EST documented in this encounter Results * POC, GLUCOSE (07/23/2024 10:55 AM EST) Glucometer, POC 108 65 - 199 mg/dL 07/23/2024 10:55 AM EST [facility] Comment:Supplemental ranges: <140 mg/dL before meals <180 mg/dL all other times of the day. Blood CAPILLARY BLOOD / Unknown 07/23/2024 10:55 AM EST 07/23/2024 10:56 AM EST Sandra Ken MD POINT OF CARE TEST O RDERABLES [facility] [place] [phone] documented in this encounter Visit Diagnoses Not on filedocumented in this encounter Administered Medications Inactive Administered Medications - up to 3 most recent administrations Medication Order MAR Action Action Date Dose Rate Site ALPRAZolam (Xanax) tablet 0.5 mg 0.5 mg, Oral, ONCE, 1 dose, On 07/23/24 at 1130, Radiology Protocol Medication, Routine Given 07/23/2024 11:30 AM EST 0.5 mg documented in this encounter Care Teams Locum Tenens Hospitalist Relationship Specialty Start Date End Date Gaudencio Scales DO [address] [place] [address] PCP - General Family Medicine 11/28/23 documented as of this encounter
--- OUTSIDE RECORDS SUMMARY | 2024-07-27 12:42 | XMS_ITS | Encounter Summary ---
Author Organization [facility] Address [facility] [place] [address] Care Team Providers Care Hotel Administrative Assistant Name Role Phone Gaudencio Scales Primary Care Provider [phone] Reason for Visit * Reason Onset Date Comments Medication Refill 07/25/2024 Encounter Details Date Type Department Care Team (Late st Contact Info) Description 07/25/2024 Refill Hematology [place] [phone] Soo Lyn MD [facility] [place] [address] Social History Tobacco Use Types Packs/Day Years [...] from your doctor or pharmacy? Rarely 05/29/2024 [facility] Utilities Answer Date Recorded In the past 12 months has [facility], gas, oil, or water company threatened to [...] place to sleep or slept in a chcf (including now)? No 11/29/2023 Housing Stability Vital [...] were you homeless or living in a chcf (including now)? No 07/09/2024 IPV Inpatient Questions [...] on file documented as of this encounter Miscellaneous Notes * Telephone Encounter - Paradise Contreras PA - 07/25/2024 1:42 PM EST Reviewed pt hx and recent notes, approved, please ensure proper f/u visits. Thank you for your time and help, BEE Smart-C * Telephone Encounter - Pita Yates RN - 07/25/2024 1:32 PM EST Received request via Patient for refill of Zofran. Per review of medical record, refill appears to be appropriate. Last prescribed 04/2024 Next appointment 08/[address] Lyn Script prepared and sent to provider for review, signature and escribe. documented in this encounter Plan of Treatment Upcoming Encounters Date Type Department Care Team (Latest Contact Info) Description 07/30/2024 8:40 AM EST Hospital Encounter Mammography at [place] [address] Jr Fulton MD [facility] [place] [address] 07/30/2024 8:45 AM EST Appointment Mammography at [place] [address] Jr Fulton MD [facility] [place] [address] 07/30/2024 9:20 AM EST Hospital Encounter Mammography at [address] Jr Fulton MD [facility] [place] [address] 07/30/2024 10:51 AM EST Hospital Encounter Outpatient Surgery Center [place] [phone] Jr Fulton MD [facility] [place] [address] 07/30/2024 10:51 AM EST Anesthesia Event [place] [address] Megan Oron[place] [address] 07/30/2024 10:51 AM EST - 07/30/2024 1:11 PM EST Surgery Outpatient Surgery [facility] [place] [phone] Jr Fulton MD [facility] [place] [address] MASTECTOMY PARTIAL (WRVU 10.13) 08/22/2024 2:00 PM EST Office Visit General Surgery at [place] [phone] Cindy Pierce APRN [facility] [place] [address] 08/22/2024 3:00 PM EST Office Visit Hematology [place] [address] Soo Lyn MD [facility] [place] [address] 08/27/2024 9:30 AM EST Scheduled View Only Radiation Oncology at [address] [phone] St Josr [place] 08/27/2024 10:00 AM EST Office Visit Radiation Oncology at [address] [phone] Paradise Prado MD [facility] [place] [address] 2024 1:00 PM EDT Office Visit Cardiology at [address] [place] [address] Ham Montenegro MD [facility] [place] [address] Scheduled Procedures Name Priority Associated Diagnoses Date/Ti [...] on filedocumented in this encounter Care Teams Hotel Administrative Assistant Relationship Specialty Start Date End Date Gaudencio Scales DO [address] [place] [id number] PCP - General Family Medicine 11/28/23 documented as of this encounter
--- OUTSIDE RECORDS SUMMARY | 2024-07-27 12:42 | XMS_ITS | Encounter Summary ---
Author Organization [facility] Address [facility] [place] [address] Care Team Providers Care Urban Redevelopment Specialist Name Role Phone Gaudencio Scales Antoine VERGARA Primary Care Provider [phone] Encounter Details Date Type Department Care Team (Late st Contact Info) Description 07/24/2024 11:59 PM EST Anesthesia [place] [address] Megan Oron[place] [address] Anesthesia Record Procedure Summary Procedure Name Responsible Anesthesiologist Anesthesia Start Time Anesthesia Stop Time TELEPHONE OFFICE VISIT Events No events on file. Meds * Agents No agents on file. * Blood No blood administrations on file. Lines, Drains, and Airways No LDAs on file. documented in this encounter Social History Tobacco Use Types Packs/Day Years [...] or pharmacy? Rarely 05/29/[address] [facility] Utilities Answer Date Recorded In the past [...] place to sleep or slept in a skilled nursing (including now)? No 11/29/2023 Housing Stability Vital Sign Answer Jeferson e Recorded In the last 12 months, was t here a time when you were not able to pay the mortgage or rent on time? No 07/09/2024 In the past 12 months, how m any times have you moved where you were living? 1 07/09/2024 At any time in the past 12 m [facility], were you homeless or living in a skilled nursing (including now)? No 07/09/2024 IPV Inpatient Questions [...] (Latest Contact Info) Description 07/30/2024 8:40 AM [facility] Hospital Encounter Mammography at [place] [phone] Jr Fulton MD [facility] [place] [address] 07/30/2024 8:45 AM EST Appointment Mammography at [place] [address] Jr Fulton MD [facility] [place] [address] 07/30/2024 9:20 AM EST Hospital Encounter Mammography at [place] [address] Jr Fulton MD [facility] [address] [place] [address] 07/30/2024 10:51 AM EST Hospital Encounter [facility] [place] [address] Jr Fulton MD [facility] [place] [address] 07/30/2024 10:51 AM EST Anesthesia Event [facility] [place] [address] Megan Orona [place] [address] 07/30/2024 10:51 AM EST - 07/30/2024 1:11 PM EST Surgery [facility] [place] [address] Jr Fulton MD [facility] [address] [place] [address] MASTECTOMY PARTIAL (WRVU 10.13) 08/22/2024 2:00 PM EST Office Visit General Surgery at [address] Cindy Pierce APRN [facility] [address] 08/22/2024 3:00 PM EST Office Visit Hematology [place] [address] Soo Lyn MD [facility] [place] [address] 08/27/2024 9:30 AM EST Scheduled View Only Radiation Oncology at [address] [phone] [address] [place] 08/27/2024 10:00 AM EST Office Visit Radiation Oncology at [address] [phone] Paradise Prado MD [facility] [place] [address] 2024 1:00 PM EDT Office Visit Cardiology at [address] [place] [address] Ham Montenegro MD [facility] [place] [address] Scheduled Procedures Name Priority Associated Diagnoses Date/Ti [...] on filedocumented in this encounter Care Teams Urban Redevelopment Specialist Relationship Specialty Start Date End Date Gaudencio Scales DO [address] [place] [address] PCP - General Family Medicine 11/28/23 documented as of this encounter
--- OUTSIDE RECORDS SUMMARY | 2024-07-27 12:42 | XMS_ITS | Encounter Summary ---
Author Organization [facility] Address [facility] [place] [address] Care Team Providers Care Choir Accompanist Name Role Phone Gaudencio Scales DO Primary Care Provider [phone] Encounter Details Date Type Department Care Team (Late st Contact Info) Description 07/24/2024 11:00 AM EST TH Visit (TeleHealth) Same Day at [facility] [place] [phone] Social History Tobacco Use Types Packs/Day Years [...] from your doctor or pharmacy? Rarely 05/29/2024 [facility] Utilities Answer Date Recorded In the [...] any time in the past [address] [facility], were you homeless or living in [...] 8:40 AM EST Hospital [place] [address] Jr Fulton MD [facility] [place] [address] 07/30/2024 8:45 AM EST [place] [address] Jr Fulton MD [facility] [place] [address] 07/30/2024 9:20 AM EST Hospital Encounter Mammography at [address] Jr Fulton MD [facility] [place] [address] 07/30/2024 10:51 AM EST Hospital Encounter [facility] [place] [address] Jr Fulton MD [facility] [place] [address] 07/30/2024 10:51 AM EST Anesthesia Event [facility] [place] [address] Megan [place] [address] 07/30/2024 10:51 AM EST - 07/30/2024 1:11 PM EST Surgery [facility] [place] [address] Jr Fulton MD [facility] [place] [address] MASTECTOMY PARTIAL (WRVU 10.13) 08/22/2024 2:00 PM EST Office Visit General Surgery at [place] [address] Cindy Pierce APRN [facility] [place] [address] 08/22/2024 3:00 PM EST Office Visit Hematology and Oncology at [place] [address] Soo Lyn MD [facility] [place] [address] 08/27/2024 9:30 AM EST Scheduled View Only Radiation Oncology at [address] [phone] [address] [place] 08/27/2024 10:00 AM EST Office Visit Radiation Oncology at [address] [phone] Paradise Prado MD [facility] [place] [address] 2024 1:00 PM EDT Office Visit Cardiology at [address] [place] [phone] Ham Montenegro MD [facility] [place] [address] Scheduled Procedures Name Priority Associated Diagnoses Date/Ti [...] on filedocumented in this encounter Care Teams Choir Accompanist Relationship Specialty Start Date End Date Gaudencio Scales, [address] [place] [address] PCP - General Family Medicine 11/28/23 documented as of this encounter
--- OUTSIDE RECORDS SUMMARY | 2024-07-27 12:42 | XMS_ITS | Clinical Summary ---
Author Organization [facility] Address [facility] [place] [address] Care Team Providers Care Environmental Technician Name Role Phone RachelGaudencio mendiola DO Primary Care Provider [phone] Allergies No known active allergies Medications Medication Sig Dispensed Refills Start Date End Date Status levothyroxine (Synthroid) 100 mcg tablet Take 100 mcg by mouth. 01/12/2006 Active omeprazole (PRILOSEC) 20 mg capsule 20M Capsule(s), PO, Once daily 01/12/2006 Active apixaban (Eliquis) 5 mg tablet Take 5 mg by mouth 2 times daily. Active lamoTRIgine (LaMICtal) 100 mg tablet Take 1 tablet by mouth 2 times daily. 11/21/2023 Active oxyCODONE-acetamino phen (Percocet) 10-325 mg tablet Take 1 tablet by mouth every 8 hours as needed. 11/21/2023 Active QUEtiapine (SEROquel) 100 mg tablet Take 100 mg by mouth nightly. 11/21/2023 Active atorvastatin (Lipitor) 80 mg tablet Take 1 tablet by mouth Daily at Noon. 90 tablet 3 12/04/2023 Active clopidogreL (Plavix) 75 mg tablet Take 1 tablet by mouth daily. 90 tablet 3 12/04/2023 Active nitroGLYcerin (Nitrostat) 0.[address] 1 tablet under the tongue every 5 minutes as needed for Chest pain. 90 tablet 12 12/04/2023 Active ipratropium-albuter oL (Duoneb) 0.5 mg-3 mg(2.5 mg base)/3 mL Solution for Nebulization Take 0.5 mg by nebulization every 4 hours. 1 each 4 12/04/2023 Active metoprolol succinate XL (Toprol-XL) 50 mg ER 24 hr tablet Take 1 tablet by mouth 2 times daily. 30 tablet 12 12/04/2023 Active multivitamin (THERAGRAN) Tablet Take 1 tablet by mouth daily. Active iron,carb/vit C/vit B12/folic (IRON 100 PLUS ORAL) Take by mouth. Active diclofenac (Voltaren) 1 % GelIndications:Marlyn gnant neoplasm of upper-outer quadrant of left breast in female, estrogen receptor negative,Medication management Apply 2 g topically 2 times daily. 200 g 1 04/25/2024 Active QUEtiapine (Seroquel) 50 mg tablet TAKE ONE TABLET BY MOUTH EVERY NIGHT IN ADDITION TO 100MG TABLET. MAY TAKE UP TO 200MG AT BEDTIME IF NEEDED FOR SLEEP 60 tablet 04/30/2024 Active diphenhydrAMINE/alu minum-magnesium hydroxide with simethicone/lidocai ne (BMX) (6.67 mg-0.83 mg-13.33 mg-1.33 mg/mL) oral liquidIndications:M alignant neoplasm of upper-outer quadrant of left breast in female, estrogen receptor negative,Medication management Take 20-30 mLs by mouth every 4 hours as needed. 240 mL 3 05/11/2024 Active lidocaine (Xylocaine) 2 % SolutionIndications :Malignant neoplasm of upper-outer quadrant of left breast in female, estrogen receptor negative,Medication management Take 1-2 mLs by mouth as needed for Pain (Please crisis intervention counselor patient on equal parts benadryl and Maalox.). 100 mL 1 05/11/2024 Active fish oil-omega-3 fatty acids (Fish Oil) 1,000 mg capsule Take 2 g by mouth daily. Active torsemide (Demadex) 20 mg tablet Take 1 tablet by mouth every other day. If you gain 2lbs in one day, take daily 07/16/2024 Active senna-docusate (Pericolace) 8.6-50 mg Tablet Take 2 tablets by mouth 2 times daily as needed for Constipation. 30 tablet 3 07/16/2024 Active ursodioL (Actigall) 300 mg capsule Take 1 capsule by mouth 2 times daily (with meals). 60 tablet 07/16/2024 Active ondansetron (Zofran) 8 mg tablet Take 1 tablet by mouth every 8 hours as needed for Nausea. 60 tablet 07/25/2024 Active Active Problems Problem Noted Date Diagnosed Date Severe protein-calorie malnutrition 07/10/2024 Overview (07/10/2024): Identified: less than or equal to 50% of estimated energy requirement for greater than or equal to 5 days, greater than 7.5% weight loss in 3 months, and Mild Lean Muscle Loss is consistent with Severe protein-calorie malnutrition in the setting of acute illness or injury (Navjot et al, JPEN J Parenteral Enteral Nutr. 2011; 36(3): 273-83) Abdominal pain 07/09/2024 Bilious vomiting with nausea 07/09/2024 Gastroesophageal reflux 07/09/2024 Hypothyroidism 07/09/2024 Elevated alkaline phosphatase level 07/09/2024 JONATHAN (acute kidney injury) 07/09/2024 ASCVD (arteriosclerotic cardiovascular disease) 07/02/2024 Overview (07/02/2024): Cardiac Catheterization: (11/2023) RIGHT dominance Indication: NSTE-ACS LVEDP 16 Artery Lesion Intervention LM Distal 80 3.5 x 12 [place] LAD Os 80 POBA LCx Stent patent Os 75 POBA RCA Os 90 (ISR) Prox 90 (ISR) 3.5 x 22 [place] POBA NB: RCA intervened on first day, left system on another in a staged fashion Assessment & Plan (07/02/2024 4:10 PM EDT): No angina per history. Based on position of the disease, I would suspect that the history of mantle field radiation played a large role in its development - Anti-Thrombosis: plavix 75, eliquis. - Anti- Lipemic: lipitor 80 - Anti- Anginals: GTN PRN, toprol 50 bid Cardiomyopathy, ischemic 07/02/2024 Overview (07/02/2024): 05/2024 TTE: EF 57%. Septal HK. RV nl Assessment & Plan (07/02/2024 4:10 PM EDT): No failure by history nor exam. - Diuresis: torsemide 20 - Cardioprotection: - Beta Blockade: toprol - RAASi: d/c losartan; low BP - MC Blockade: not indicated - SGLT2i: not indicated - Devices: not indicated Nonrheumatic aortic valve stenosis 07/02/2024 Overview (07/02/2024): 2021: s/p DARSHANA (Evolut) 05/2024 TTE: MG 2 mmHg, no regurgitation Assessment & Plan (07/02/2024 4:11 PM EDT): No issues per history nor exam. - plavix, eliquis - Because the valve is not mechanical, VKA is not required for this indication - Anti-biotic prophylaxis required as directed against expected bacterial rajiv of at-risk procedures. PAF (paroxysmal atrial fibrillation) 07/02/2024 Assessment & Plan (07/02/2024 4:11 PM EDT): No recent episodes - Strategy: paroxysmal rate. Continue toprol - OAC: eliquis 5 bid - Reversible Causes: none identified Malignant neoplasm of upper- outer quadrant of left breast in female, estrogen receptor negative 02/22/2024 Overview (02/22/2024): 02/10/24 bx [facility]: ER-/WY-/HER2 negative left breast IDC, grade 3, and DCIS grade 3. 01/17/24 mammogram [facility]: 1.1 cm left breast UOQ. Resolved Problems Problem Noted Date Diagnosed Date Resolved Date Acute on chronic systolic an d diastolic heart failure, NYHA class 2 05/31/2024 07/02/2024 Medication management 04/27/20242023 NSTEMI (non-ST elevated myoc ardial infarction) 11/28/2023 07/02/2024 Encounters Date Type Department Care Team Description 07/26/2024 Telephone [place] [address] Jr Fulton MD 07/25/2024 Refill Hematology [place] [address] Soo Lyn MD 07/24/2024 11:59 PM EST Anesthesia [place] [address] Megan Orona APRN 07/24/2024 11:00 AM EST TH Visit (TeleHealth) [place] [address] 07/23/2024 10:47 AM EST - 07/23/2024 11:59 PM EST Hospital Encounter [place] [address] Sandra Ken MD Arrived Discharge Disposition: Home 07/23/2024 10:47 AM EST - 07/23/2024 11:59 PM EST Hospital Encounter [place] [address] Sandra Ken MD Malignant neoplasm of upper-outer quadrant of left breast in female, estrogen receptor negative Discharge Disposition: Home 07/23/2024 Travel 07/17/2024 Orders [place] [address] Jr Fulton MD Malignant neoplasm of left breast in female, estrogen receptor negative, unspecified site of breast 07/17/2024 Notes [place] [address] Jr Fulton MD 07/11/2024 3:40 PM EDT Anesthesia Event [place] [address] Ignacia Maria MD 07/11/2024 3:35 PM EDT - 07/11/2024 4:35 PM EDT Surgery [place] [address] Davie Swenson MD UPPER EUS- ENDOSCOPIC ULTRASOUND (WRVU 3.47) 07/11/2024 3:15 PM EDT Ancillary Procedure [place] [address] 07/09/2024 12:45 AM EDT - 07/16/2024 3:33 PM EDT Hospital Encounter Hematology/Oncol ogy Unit Level 1 Wing D at [place] [phone] Srikanth Patel MD Tonzi, Erin M, MD Congiusta, Francesco G, MD JONATHAN (acute kidney injury); Malignant neoplasm of upper-outer quadrant of left breast in female, estrogen receptor negative; Cardiomyopathy, ischemic; Elevated alkaline phosphatase level; Bilious vomiting with nausea; Right upper quadrant abdominal pain Discharge Disposition: Home with VNA 07/09/2024 Travel 07/08/2024 9:00 PM EDT Ancillary Procedure Radiology Library [place] [address] Gaudencio Scales, DO 07/08/2024 8:55 PM EDT Ancillary Procedure Radiology Library [place] [address] Gaudencio Scales, DO 07/08/2024 8:50 PM EDT Ancillary Procedure Radiology Library [place] [address] Gaudencio Scales, DO 07/08/2024 Tele[place] [address] Tom Moise MD 07/02/2024 3:20 PM EDT Office Visit Cardiology at [address] [phone] Ham Montenegro MD ASCVD (arteriosclerotic cardiovascular disease); Cardiomyopathy, ischemic; Nonrheumatic aortic valve stenosis; PAF (paroxysmal atrial fibrillation) 07/02/2024 Travel 06/25/2024 Refill Psychiatry and Behavioral Health at [place] [phone], DIRECTOR OF SUPPLY CHAIN 06/22/2024 Telephone General Surgery at [place] [phone] Jr Fulton MD 06/20/2024 11:59 PM EDT Anesthesia [place] [address] Indra Gay MD 06/20/2024 3:00 PM EDT TH Visit (TeleHealth) [place] [address] 06/19/2024 Refill Psychiatry and [place] [address], DIRECTOR OF SUPPLY CHAIN 06/17/2024 11:59 PM EDT Anesthesia Event [place] [address] Megan Orona APRN 06/14/2024 Orders Only Hematology [place] [address] Tresa Zapata 06/12/2024 1:00 PM EDT Office [place] [address] Jr Fulton MD Malignant neoplasm of left breast in female, estrogen receptor negative, unspecified site of breast 06/12/2024 Orders [place] [address] Jr Fulton MD Malignant neoplasm of left breast in female, estrogen receptor negative, unspecified site of breast 06/12/2024 Telephone Radiation Oncology at [address] [address] Enriqueta Christopher 06/12/2024 Travel 06/11/2024 Travel 06/07/2024 Telephone Hematology [place] [address] Nichol Perez, RN Follow-up 06/06/2024 11:30 AM EDT TH Visit (TeleHealth) Hematology [place] [address] Fernando Clarke, [facility] Malignant neoplasm of upper-outer quadrant of left breast in female, estrogen receptor negative 06/06/2024 Multidisciplinary Ca re Committee Hematology [place] [address] Evita Sepulveda MD 06/04/2024 Telephone Cardiology at [address] [place] [phone] Renae Figueroa, RN 06/01/2024 10:00 AM EDT TH Visit (TeleHealth) Hematology [place] [address] Chelo Chan, [facility] Malignant neoplasm of upper-outer quadrant of left breast in female, estrogen receptor negative 05/31/2024 11:16 PM EDT - 06/05/2024 4:30 PM EDT Hospital Encounter Heart and Vascular Unit Level 4 [place] [phone] Rogelio Wong MD Kussaga, Frank M, MD Ramachandra, Nayana, MD Acute on chronic systolic and diastolic heart failure, NYHA class 2; NSTEMI (non-ST elevated myocardial infarction); Malignant neoplasm of upper-outer quadrant of left breast in female, estrogen receptor negative Discharge Disposition: Home with VNA 05/30/2024 12:13 PM EDT - 05/30/2024 11:59 PM EDT Hospital Encounter Mobile [place] [address] Travis Oliva MD CHF (congestive heart failure), NYHA class I, unspecified failure chronicity, combined Discharge Disposition: Home 05/29/2024 5:50 PM EDT Ancillary Procedure Radiology Library [place] [phone] Gaudencio Scales DO 05/29/2024 10:30 AM EDT Infusion Hematology Oncology at [address] [phone] Malignant neoplasm of upper-outer quadrant of left breast in female, estrogen receptor negative (Primary Dx) 05/29/2024 9:30 AM EDT Office Visit Hematology/Oncol ogy at [address] [address] Roseanna Santacruz MD Perreault, Alexandra H, VERNELL Infusion reaction, initial encounter; Malignant neoplasm of upper-outer quadrant of left breast in female, estrogen receptor negative; Triple negative breast cancer 05/29/2024 Telephone [place] [address] Lukas Lanier MD 05/29/2024 External Results Transfer [place] [phone] 05/29/2024 Notes Only Hematology/Oncol ogy at [address] [address] Noelle Cervantes, [employer]IVER 05/29/2024 Travel 05/11/2024 10:00 AM EDT TH Visit (TeleHealth) Hematology and Oncology at [place] [phone] Octavio Guzman, [facility] Malignant neoplasm of upper-outer quadrant of left breast in female, estrogen receptor negative 05/11/2024 Telephone Hematology [place] [address] Zoraida Vasquez, integrity analyst Management 05/11/2024 Orders Only Hematology and Oncology at [place] [phone] Paradise Contreras, BEE Malignant neoplasm of upper-outer quadrant of left breast in female, estrogen receptor negative; Medication management 05/08/2024 9:00 AM EDT Infusion Hematology Oncology at [address] [address] Malignant neoplasm of upper-outer quadrant of left breast in female, estrogen receptor negative 05/08/2024 Notes Only Hematology/Oncol ogy at [address] [address] Noelle Cervantes, [employer] TRUCK [employer]IVER 05/08/2024 Travel 05/08/2024 Notes Only Hematology [place] [address] [place] Contreras PA 05/04/2024 Telephone Hematology and Oncology at [place] [phone] Loren Srinivasan, [facility] Results 05/01/2024 Travel from Last 3 Months Immunizations Name Administration Dates Next Due Influenza Vaccine, Whole 08/03/2005 Pneumococcal 23-Valent Polysaccharide (Pneumovax 23) 11/08/2006 Family History Medical History Relation Comments Asthma Brother Skin Cancer Father Cancer Maternal Grandmother suspected, unsure primary Cancer Maternal Uncle suspected, unsur e primary Hypertension Mother Cancer Paternal Grandmother unsure prim iron Breast Cancer Paternal Half-Sister of joel samir at age 46 Ovarian Cancer Neg Hx Relation Status Comments Brother Father Maternal Grandmother Maternal Uncle Mother Paternal Grandmother Paternal Half-Sister Social History Tobacco Use Types Packs/Day Years [...] from your doctor or pharmacy? Rarely 05/29/2024 [facility] Utilities Answer Date Recorded In [...] any time in the past 12 m [facility], were you homeless or living in a skilled nursing (including now)? No 07/09/2024 [facility] IPV Inpatient Questions Answer Date Recorded Does [...] on file Sexual Orientation Not on file Last Filed Vital Signs Vital Sign Reading Time Taken Comments Blood Pressure 142/63 07/16/2024 7:44 AM EDT Pulse 67 07/16/2024 7:44 AM EDT Temperature 36.5 ??C (97.7 ??F) 07/16/2024 7:44 AM ED T Respiratory Rate 18 07/16/2024 7:44 AM EDT Oxygen Saturation 100% 07/16/2024 7:44 AM EDT Inhaled Oxygen Concentration - - Weight 92.8 kg (204 lb 9.4 oz) 07/16/2024 4:19 A M EDT Height 161 cm (5' 3.39) 07/16/2024 4:19 AM EDT Body Mass Index 35.8 07/16/2024 4:19 AM EDT Plan of Treatment Upcoming Encounters Date Type Department Care Team (Latest Contact Info) Description 07/30/2024 8:40 AM EST Hospital Encounter Mammography at [place] [phone] Jr Fulton MD [facility] [address] [place] [address] 07/30/2024 8:45 AM EST Appointment Mammography at [address] Jr Fulton MD [facility] [address] [place] [address] 07/30/2024 9:20 AM EST Hospital Encounter Mammography at [place] [phone] Jr Fulton MD [facility] [address] [place] [address] 07/30/2024 10:51 AM EST Hospital Encounter Outpatient Surgery Center [place] [phone] Jr Fulton MD [facility] [address] [place] [address] 07/30/2024 10:51 AM EST Anesthesia Event Outpatient Surgery Center [place] [phone] Megan Orona [place] [address] 07/30/2024 10:51 AM EST - 07/30/2024 1:11 PM EST Surgery [place] [address] Jr Fulton MD [facility] [place] [address] MASTECTOMY PARTIAL (WRVU 10.13) 08/22/2024 2:00 PM EST Office Visit [place] [phone] Cindy Pierce APRN [facility] [place] [address] 08/22/2024 3:00 PM EST Office Visit Hematology [place] [phone] Soo Lyn MD [facility] [place] [address] 08/27/2024 9:30 AM EST Scheduled View Only Radiation Oncology at [address] [phone] Rad Nurse, [facility] 08/27/2024 10:00 AM EST Office Visit Radiation Oncology at [address] [phone] [place] Prado MD [facility] [place] [address] 2024 1:00 PM EDT Office Visit Cardiology at [address] [place] [address] Ham Montenegro MD [facility] [place] [address] Scheduled Procedures Name Priority Associated Diagnoses Date/Ti [...] Yes BREAST CANCER 07/30/2024 10:51 AM EST Health Maintenance Due Date Last Done Comments CT Colonography 1963 Colonoscopy 1963 Colorectal Cancer Screening 1963 FIT DNA 1963 FIT 1963 Sigmoidoscopy (10 year) with FIT yearly 1963 Sigmoidoscopy 1963 HIV screen 12/02/1981 Hepatitis C Screening 12/02/1981 Tetanus/Diphtheria/Pertussis Vaccines (1 - Tdap) 12/02/1982 HPV test 12/02/1993 PAP Smear 12/02/1993 Breast Cancer Share Decision Needed 2003 Breast Cancer screening 2003 Pneumococcal Vaccine: At-Ris k 5-64yrs (2 of 2 - PCV) 11/08/2007 11/08/2006 Zoster vaccine (1 of 2) 12/02/2013 Covid-19 Vaccine ( - 2023-2 5 season) 2024 Influenza (Flu) vaccine (1 o f 1 - Influenza standard series) 05/20/2024 08/03/2005 Diabetes Screening (HgbA1C o r Glucose) 07/16/2027 07/16/2024, 07/15/2024, 07/14/2024, Additional history exists Medical Devices Implanted Type Area Green Chain Offbearer Device Identifier Shelf Expiration Date Model / Serial / Lot Breast Clip-03/26/2024 Implanted:Qty : 1 on 03/26/2024 by Ana Weber MD Breast Clip Left: Breast Bard - 0614 [employer] ULTRACOR BREAST TISSUE MARKER / / [id number] Description:[employer] Port Infusion 8fr Cath Power Injectable Lp 1lum Ct Ti ([id number])-[id number]/23 Implanted:Qty : 1 on 03/23/2024 by Cely Schmitt PA IMPLANTS Right: Chest Wall [employer] - CR BARD 11/16/2025 [id number] / / [id number] Procedures Procedure Name Priority Date/Time Associated Diagnosis Comments NM PET CT SKULL BASE TO MID-THIGH ([facility]) Routine 07/23/2024 12:17 PM EST Malignant neoplasm of upper-outer quadrant of left breast in female, estrogen receptor negative POC, GLUCOSE Routine 07/23/2024 10:55 AM EST SCAN, PERIPHERAL BLOOD Routine 4:36 AM EDT COMPREHENSIVE METABOLIC PANEL Routine 4:36 AM EDT CBC (WITH DIFF) Routine 07/16/2024 4:36 AM EDT COMPREHENSIVE METABOLIC PANEL Routine 3:23 AM EDT CBC (WITH DIFF) Routine 07/15/2024 3:23 AM EDT VANCOMYCIN LEVEL, RANDOM Timed 024 11:04 AM EDT COMPREHENSIVE METABOLIC PANEL Routine 12:18 AM EDT CBC (WITH DIFF) Routine 07/14/2024 12:18 AM EDT PHOSPHORUS Routine 07/14/2024 12:18 AM EDT VANCOMYCIN LEVEL, RANDOM Timed 024 4:07 PM EDT IMMUNOGLOBULINS, QUANTITATIVE Routine 12:07 PM EDT IMMUNOFIXATION ELECTROPHORESIS, SERUM Routine 07/13/2024 12:07 PM EDT IGG 4 Routine 07/13/2024 12:07 PM EDT PROTEIN, TOTAL ELECTROPHORES IS (PERFROMABLE) Routine 07/13/2024 12:07 PM EDT PEP, SERUM (PERFORMABLE) Routine 024 12:07 PM EDT IMMUNOGLOBULIN FREE LIGHT CHAINS, SERUM Routine 07/13/2024 12:07 PM EDT PROTEIN ELECTROPHORESIS, SERUM Routine 1 12:07 PM EDT C4 COMPLEMENT Routine 07/13/2024 12:07 PM EDT C3 COMPLEMENT Routine 07/13/2024 12:07 PM EDT PROTEIN, URINE ELECTROPHORES IS (PERFORMABLE) Routine 07/13/2024 11:47 AM EDT PEP, URINE RANDOM (PERFORMABLE) Routine 07/13/2024 11:47 AM EDT URINALYSIS DIPSTICK Routine 07/13/2024 11:47 AM EDT PROTEIN ELECTROPHORESIS, URINE, RANDOM Routine 07/13/2024 11:47 AM EDT PROTEIN/CREATININE RATIO, URINE Routine 07/13/2024 11:47 AM EDT U ALBUMIN/CRE RATIO Routine 07/13/2024 11:47 AM EDT COMPREHENSIVE METABOLIC PANEL Routine 4:10 AM EDT CBC (WITH DIFF) Routine 07/13/2024 4:10 AM EDT VANCOMYCIN LEVEL, RANDOM Timed 024 4:10 AM EDT PHOSPHORUS Routine 07/13/2024 4:10 AM EDT SCAN, PERIPHERAL BLOOD Routine 8:34 AM EDT CBC (WITH DIFF) Routine 07/12/2024 8:34 AM EDT COMPREHENSIVE METABOLIC PANEL Routine 4:10 AM EDT VANCOMYCIN LEVEL, RANDOM Timed 024 4:10 AM EDT PHOSPHORUS Routine 07/12/2024 4:10 AM EDT Endoscopic Us Exam, Esoph ([id number]) 07/11/2024 3:40 PM EDT Elevated LFT's UPPER EUS-ENDOSCOPIC ULTRASOUND Routine 07/11/2024 2:58 PM EDT VANCOMYCIN LEVEL, RANDOM Timed 9:20 AM EDT SCAN DOC: TELEMETRY STRIPS 07/11 7:36 AM EDT COMPREHENSIVE METABOLIC PANEL Routine 4:08 AM EDT CBC (WITH DIFF) Routine 07/11/2024 4:08 AM EDT HC PARTIAL THROMBOPLASTIN TIME Routine 1 4:08 AM EDT PROTHROMBIN TIME Routine 07/11/2024 4:08 AM EDT PHOSPHORUS Routine 07/11/2024 4:08 AM EDT SCAN DOC: TELEMETRY STRIPS 07/10 7:37 PM EDT LIVER/KIDNEY MICROSOME TYPE 1 ANTIBODY Add-On 07/10/2024 9:30 AM EDT SMOOTH MUSCLE ANTIBODY Routine 9:30 AM EDT MITOCHONDRIAL ANTIBODY, M2 Routine 07/10 9:30 AM EDT COMPREHENSIVE METABOLIC PANEL Routine 5:26 AM EDT CBC (WITH DIFF) Routine 07/10/2024 5:26 AM EDT PHOSPHORUS Routine 07/10/2024 2:15 AM EDT MRI CHOLANGIOPANCREATOGRAPHY Routine 10:28 PM EDT SCAN DOC: TELEMETRY STRIPS 07/09 7:52 PM EDT BASIC METABOLIC PANEL Routine 07/09/2024 4:10 PM EDT US ABDOMEN LIMITED Routine 07/09/2024 11:16 AM EDT US RETROPERITONEAL COMPLETE Routine 06/20 10:53 AM EDT URINALYSIS BEAKER MICROSCPIC REFLEX EXAM (MH/MELANIE) Routine 07/09/2024 9:25 AM EDT URINALYSIS MICROSCOPIC WITH REFLEX TO CULTURE Routine 07/09/2024 9:25 AM EDT UREA NITROGEN, URINE, RANDOM Routine 9:25 AM EDT CREATININE, URINE, RANDOM Routine 2023 9:25 AM EDT URINALYSIS WITH REFLEX CULTURE Routine 1 9:25 AM EDT URINE CULTURE Routine 07/09/2024 9:25 AM EDT SCAN DOC: TELEMETRY STRIPS 07/09 7:40 AM EDT GAMMA GT Routine 07/09/2024 5:02 AM EDT COMPREHENSIVE METABOLIC PANEL Routine 5:02 AM EDT CBC (WITH DIFF) Routine 07/09/2024 5:02 AM EDT SCAN DOC: TELEMETRY STRIPS 07/09 4:08 AM EDT FILM LIBRARY STORAGE ONLY CT HEAD Routine 07/08/2024 8:45 PM EDT FILM LIBRARY STORAGE ONLY CT ABDOMEN AND PELVIS Routine 07/08/2024 8:45 PM EDT FILM LIBRARY STORAGE ONLY DX CHEST Routine 07/08/2024 8:45 PM EDT SCAN DOC: TELEMETRY STRIPS 06/05 7:31 AM EDT CBC (WITH DIFF) Routine 06/05/2024 2:10 AM EDT BASIC METABOLIC PANEL Routine 06/05/2024 2:10 AM EDT MAGNESIUM Routine 06/05/2024 2:10 AM EDT SCAN DOC: TELEMETRY STRIPS 06/04 8:46 PM EDT PRO-BRAIN NATRIURETIC PEPTIDE Routine 9:38 AM EDT CBC (WITH DIFF) Routine 06/04/2024 9:38 AM EDT BASIC METABOLIC PANEL Routine 06/04/2024 9:38 AM EDT MAGNESIUM Routine 06/04/2024 9:38 AM EDT SCAN DOC: TELEMETRY STRIPS 06/04 8:39 AM EDT SCAN DOC: TELEMETRY STRIPS 06/04 8:13 AM EDT SCAN DOC: TELEMETRY STRIPS 06/03 10:54 PM EDT SCAN DOC: TELEMETRY STRIPS 06/03 7:45 AM EDT SCAN DOC: TELEMETRY STRIPS 06/03 7:31 AM EDT SCAN DOC: TELEMETRY STRIPS 06/02 11:11 PM EDT SCAN DOC: TELEMETRY STRIPS 06/02 9:30 PM EDT EKG 12-LEAD Routine 06/02/2024 4:08 PM EDT Acute on chronic systolic and diastolic heart failure, NYHA class 2 HEPARIN (UNFRACTIONATED) LEVEL Timed 0 06/02/2024 8:24 AM EDT SCAN DOC: TELEMETRY STRIPS 06/02 7:39 AM EDT SCAN DOC: TELEMETRY STRIPS 06/02 7:25 AM EDT SCAN DOC: TELEMETRY STRIPS 06/02 7:23 AM EDT SCAN DOC: TELEMETRY STRIPS 06/02 3:49 AM EDT BASIC METABOLIC PANEL Routine 06/02/2024 1:26 AM EDT CBC (WITH DIFF) Routine 06/02/2024 1:26 AM EDT HEPARIN (UNFRACTIONATED) LEVEL Timed 0 06/02/2024 1:25 AM EDT SCAN DOC: TELEMETRY STRIPS 06/01 7:12 PM EDT HEPARIN (UNFRACTIONATED) LEVEL Timed 0 06/01/2024 5:13 PM EDT TROPONIN - SINGLE STAT 06/01/2024 11:25 AM EDT HEPARIN (UNFRACTIONATED) LEVEL Timed 0 06/01/2024 11:25 AM EDT ECHO LMTD W CONTRAST W LMTD SPEC DOPP COLOR DOPP Routine 06/01/2024 9:06 AM EDT Acute on chronic systolic and diastolic heart failure, NYHA class 2 SCAN DOC: TELEMETRY STRIPS 06/01 8:19 AM EDT SCAN DOC: TELEMETRY STRIPS 06/01 7:37 AM EDT SCAN DOC: TELEMETRY STRIPS 06/01 7:28 AM EDT URINALYSIS MICROSCOPIC WITH REFLEX TO CULTURE Routine 06/01/2024 4:11 AM EDT URINALYSIS WITH REFLEX CULTURE Routine 0 06/01/2024 4:11 AM EDT URINE CULTURE Routine 06/01/2024 4:11 AM EDT TROPONIN - SINGLE STAT 06/01/2024 1:4 4 AM EDT LIPID PANEL (REFLEX DIRECT LDL) Routine 06/01/2024 1:44 AM EDT PROTHROMBIN TIME Routine 06/01/2024 1:44 AM EDT HEPATIC FUNCTION PANEL Routine 1:44 AM EDT TSH Routine 06/01/2024 1:44 AM EDT PRO-BRAIN NATRIURETIC PEPTIDE Routine 1:44 AM EDT BASIC METABOLIC PANEL Routine 06/01/2024 1:44 AM EDT CBC (WITH DIFF) Routine 06/01/2024 1:44 AM EDT XR CHEST ONE VIEW STAT 06/01/2024 1:3 6 AM EDT EKG 12-LEAD STAT 06/01/2024 12:47 AM EDT Acute on chronic systolic and diastolic heart failure, NYHA class 2 POC, GLUCOSE Routine 05/31/2024 11:57 PM EDT SCAN DOC: TELEMETRY STRIPS 05/31 11:35 PM EDT ECHO COMPLETE Routine 05/30/2024 12:59 PM EDT CHF (congestive heart failure), NYHA class I, unspecified failure chronicity, combined FILM LIBRARY STORAGE ONLY CT CHEST Routine 05/29/2024 5:47 PM EDT [facility] EXTERNAL CARDIOLOGY RESULT Routine 05/29/2024 3:55 PM EDT LAB SCAN 05/29/2024 12:00 AM EDT EXTERNAL CHEMISTRY LAB RESULTS Routine 0 05/07/2024 10:37 AM EDT EXTERNAL HEMATOLOGY LAB RESULTS Routine 05/07/2024 10:37 AM EDT LAB SCAN 05/07/2024 12:00 AM EDT from Last 3 Months Results * (ABNORMAL) NM PET CT Skull Base to Mid-thigh (07/23/2024 12:17 PM EST) Pathologist [employer] WORKSTATION ID [id number] RAD Anatomical Region Laterality Modality Positron Emissio n Tomography (PET) Impressions 07/26/2024 10:01 AM EST 1. ??The patient's primary breast carcinoma is not readily identified on the study. No FDG-avid sclerotic lesion in either clavicle. 2. ??A few avid lymph nodes in the abdomen and pelvis, such as right external iliac station and portacaval station, which are indeterminate. These may be reactive, metastatic disease is considered less likely. Recommend attention on follow-up. 3. ??Focal uptake in the distal esophagus may be inflammatory, neoplasm not excluded. If indicated, upper endoscopy can be considered. Alternatively, short-term follow-up FDG PET/CT can be considered. 4. ??A focal nodularity in the superior segment of the left lower lobe measuring 1.1 cm, persistent since at least November 2023, this may be a site of scarring. Continued attention on follow-up recommended. 5. ??Unexpected finding: FDG avidity in the right thyroid with associated small calcifications, for which follow-up with ultrasound should be considered to further assess. Thank you for letting us participate in the care of this patient. ??If you are a health care provider and have any questions regarding this report, please contact the number below. ??For patients who have questions please contact the health inpatient care manager rn that requested your imaging first. ? 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 The noncontrast CT was used for anatomic localization and photon attenuation correction of the PET scan. Blood glucose level: 108 (mg/dL) FDG dose: 13.9 mCi COMPARISON: MRCP 07/09/2024. CT of the chest 11/29/2023. FINDINGS: HEAD AND NECK: BRAIN AND EXTRA-AXIAL SPACES (WHERE INCLUDED): No abnormal uptake. ORBITS (WHERE INCLUDED): No abnormal uptake. PARANASAL SINUSES (WHERE INCLUDED): No abnormal uptake. MASTOIDS (WHERE INCLUDED): No abnormal uptake. AERODIGESTIVE TRACT: No abnormal uptake. SALIVARY GLANDS: No abnormal uptake. THYROID: FDG avidity in the right thyroid associated with calcifications, for which ultrasound is recommended to exclude underlying nodule. VASCULATURE: No abnormal uptake. Vascular calcifications in bilateral carotid bulbs. LYMPH NODES: No abnormal uptake. THORAX: LUNGS: No abnormal uptake. A nodule in the medial superior segment of the right lower lobe measuring 1.1 cm (image 79). A few small nodules such as left lower lobe (image 90), nonspecific. Paramedian curvilinear opacity in bilateral lung apices, likely scarring. PLEURA: No abnormal uptake. AIRWAYS: No abnormal uptake. MEDIASTINUM: Focal uptake in the GE junction is nonspecific, may represent inflammation or mass.. HEART AND VASCULATURE: No abnormal uptake. A right IJ chest port, tip in the right atrium. Multivessel coronary artery calcifications. Status post aortic valvular replacement. Moderate vascular calcifications of the aortic arch and great vessels. LYMPH NODES: No abnormal uptake. BREASTS/CHEST WALL: The patient's primary left breast carcinoma is not readily identified on this study. A small metallic density/calcific density is present in the left upper outer breast, which probably corresponds with biopsy marker clip. ABDOMEN AND PELVIS: LIVER: No abnormal uptake. BILIARY SYSTEM: No abnormal uptake. PANCREAS: No abnormal uptake. SPLEEN: No abnormal uptake. ADRENALS: No abnormal uptake. KIDNEYS AND URETERS: No abnormal uptake. Moderate right renal atrophy. URINARY BLADDER: No abnormal uptake. REPRODUCTIVE: No abnormal uptake. GI: No abnormal uptake. OMENTUM, MESENTERY, PERITONEUM, RETROPERITONEUM: No abnormal uptake. VASCULATURE: No abnormal uptake. Moderate vascular calcifications in the aorta and branch vessels. LYMPH NODES: FDG avid subcentimeter lymph node in the right external iliac chain measuring SUV max 6.0 (image 207). FDG avidity in the portacaval station, measuring SUV max 6.2 (image 124). MUSCULOSKELETAL: No abnormal uptake. Cement placement in L5 vertebral body. Mild fracture of the superior endplate of L5 appearing chronic. Resulting Agency Comment Unexpected Finding Procedure Note Errol Méndez MD - 07/26/2024 EXAMINATION: NM PET CT STANDARD SKULL BASE TO MID-THIGH CLINICAL HISTORY: 58F with sclerotic lesion of clavicle in setting ofbiopsy proven TNBC C50.412, Malignant neoplasm of upper-outer quadrant of left female breast- Z17.1, Estrogen receptor negative status (ER-) TECHNIQUE: Following IV injection of 76-elxukb-3-deoxyglucose (FDG) astandard uptake of approximately 60 minutes, a noncontrast CT scan followed by aPET scan were acquired from the base of the skull to mid thighs. The noncontrast CTwas used for anatomic localization and photon attenuation correction of thePET scan. Blood glucose level: 108 (mg/dL) FDG dose: 13.9 mCi COMPARISON: MRCP 07/09/2024. CT of the chest 11/29/2023. FINDINGS: HEAD AND NECK: BRAIN AND EXTRA-AXIAL SPACES (WHERE INCLUDED): No abnormal uptake. ORBITS (WHERE INCLUDED): No abnormal uptake. PARANASAL SINUSES (WHERE INCLUDED): No abnormal uptake. MASTOIDS (WHERE INCLUDED): No abnormal uptake. AERODIGESTIVE TRACT: No abnormal uptake. SALIVARY GLANDS: No abnormal uptake. THYROID: FDG avidity in the right thyroid associated with calcifications,for which ultrasound is recommended to exclude underlying nodule. VASCULATURE: No abnormal uptake. Vascular calcifications in bilateralcarotid bulbs. LYMPH NODES: No abnormal uptake. THORAX: LUNGS: No abnormal uptake. A nodule in the medial superior segment of theright lower lobe measuring 1.1 cm (image 79). A few small nodules such as leftlower lobe (image 90), nonspecific. Paramedian curvilinear opacity in bilaterallung apices, likely scarring. PLEURA: No abnormal uptake. AIRWAYS: No abnormal uptake. MEDIASTINUM: Focal uptake in the GE junction is nonspecific, mayrepresent inflammation or mass.. HEART AND VASCULATURE: No abnormal uptake. A right IJ chest port, tip inthe right atrium. Multivessel coronary artery calcifications. Status postaortic valvular replacement. Moderate vascular calcifications of the aortic archand great vessels. LYMPH NODES: No abnormal uptake. BREASTS/CHEST WALL: The patient's primary left breast carcinoma is notreadily identified on this study. A small metallic density/calcific density ispresent in the left upper outer breast, which probably corresponds with biopsymarker clip. ABDOMEN AND PELVIS: LIVER: No abnormal uptake. BILIARY SYSTEM: No abnormal uptake. PANCREAS: No abnormal uptake. SPLEEN: No abnormal uptake. ADRENALS: No abnormal uptake. KIDNEYS AND URETERS: No abnormal uptake. Moderate right renal atrophy. URINARY BLADDER: No abnormal uptake. REPRODUCTIVE: No abnormal uptake. GI: No abnormal uptake. OMENTUM, MESENTERY, PERITONEUM, RETROPERITONEUM: No abnormal uptake. VASCULATURE: No abnormal uptake. Moderate vascular calcifications in theaorta and branch vessels. LYMPH NODES: FDG avid subcentimeter lymph node in the right external iliacchain measuring SUV max 6.0 (image 207). FDG avidity in the portacavalstation, measuring SUV max 6.2 (image 124). MUSCULOSKELETAL: No abnormal uptake. Cement placement in L5 vertebral body. Mild fractureof the superior endplate of L5 appearing chronic. IMPRESSION 1. The patient's primary breast carcinoma is not readily identified onthe study. No FDG-avid sclerotic lesion in either clavicle. 2. A few avid lymph nodes in the abdomen and pelvis, such as rightexternal iliac station and portacaval station, which are indeterminate. These maybe reactive, metastatic disease is considered less likely. Recommendattention on follow-up. 3. Focal uptake in the distal esophagus may be inflammatory, neoplasmnot excluded. If indicated, upper endoscopy can be considered.Alternatively, short-term follow-up FDG PET/CT can be considered. 4. A focal nodularity in the superior segment of the left lower lobemeasuring 1.1 cm, persistent since at least November 2023, this may be a site ofscarring. Continued attention on follow-up recommended. 5. Unexpected finding: FDG avidity in the right thyroid with associatedsmall calcifications, for which follow-up with ultrasound should be consideredto further assess. Thank you for letting us participate in the care of this patient. If youare a health care provider and have any questions regarding this report,please contact the number below. For patients who have questions please contactthe health inpatient care manager rn that requested your imaging first. Electronically signed by: Errol Méndez [facility] ([phone]),at 07/26/2024 10:01 AM Sandra Ken MD IMG PET ORDERABLES * POC, GLUCOSE (07/23/2024 10:55 AM EST) Only the most recent of2 resultswithin the time period is included. Glucometer, POC 108 65 - 199 mg/dL 07/23/2024 10:55 AM EST [facility] Comment:Supplemental ranges: <140 mg/dL before meals <180 mg/dL all other times of the day. Blood CAPILLARY BLOOD / Unknown 07/23/2024 10:55 AM EST 07/23/2024 10:56 AM EST Sandra Ken MD POINT OF CARE TEST O RDERABLES Performing Organization Address City/[facility]/ZIP Co de Phone Number [facility] [place] [address] * Scan, Peripheral Blood (07/16/2024 4:36 AM EDT) Only the most recent of2 resultswithin the time period is included. [facility] RBC Morphology Abnormal 07/16/2024 5:41 AM EDT [facility] Platelet Estimate Normal Normal 07/16/2024 5:41 AM EDT [facility] Ovalocytes 1-5 /HPF 07/16/2024 5:41 AM EDT [facility] Target Cell 6-10 /HPF 07/16/2024 5:41 AM EDT [facility] Henry cells 1-5 /HPF 07/16/2024 5:41 AM EDT [facility] HJB Present 07/16/2024 5:41 AM EDT [facility] Plat, Giant <1 /HPF 07/16/2024 5:41 AM EDT [facility] Blood VENOUS BLOOD SPECIMEN / Unknown IP Care Team Draw / Unknown 07/16/2024 4:36 AM EDT 07/16/2024 4:46 AM EDT Elda Gaxiola MD HEMATOLOGY ORDERABLE S [facility] [place] [address] * (ABNORMAL) CBC (with Diff) (07/16/2024 4:36 AM EDT) Only the most recent of12 resultswithin the time period is included. White Blood Cell 9.36 4.00 - 9.50 x10(3)/mc L 07/16/2024 5:41 AM [facility] Red Blood Cell 2.92(L) 4.00 - 5.21 x10(6)/mc L 07/16/2024 5:41 AM [facility] Hemoglobin 8.8(L) 11.7 - 15.5 g/dL 07/16/2024 5:41 AM [facility] Hematocrit 27.1(L) 35.7 - 45.8 % 07/16/2024 5:41 AM [facility] Mean Cell Volume 92.8 82.6 - 94.4 fL 07/16/2024 5:41 AM [facility] Mean Cell Hemoglobin 30.1 27.1 - 32.0 pg 07/16/2024 5:41 AM [facility] Mean Cell Hemoglobin Concentration 32.5 31.7 - 35.0 g/dL 07/16/2024 5:41 AM [facility] Platelet 325 145 - 357 x10(3)/mc L 07/16/2024 5:41 AM [facility] Mean Platelet Volume 12.9 7.6 - 12.9 fL 07/16/2024 5:41 AM [facility] RDW Standard Deviation 69.4(H) 37.0 - 46.0 fL 07/16/2024 5:41 AM [facility] RDW coefficient of variation 20.4(H) 11.5 - 14.1 % 07/16/2024 5:41 AM [facility] NRBC% auto 0.0 % 07/16/2024 5:41 AM [facility] NRBC Absolute <0.01 <0.01 x10(3)/mc L 07/16/2024 5:41 AM [facility] Neutrophil % 46.0 % 07/16/2024 5:41 AM [facility] Comment:This is an appended report. These results have been appended to a previously preliminary verified report. Neutrophil Absolute (ANC) - Automated 4.30 1.70 - 6.10 x10(3)/mc L 07/16/2024 5:41 AM [facility] Comment:This is an appended report. These results have been appended to a previously preliminary verified report. Lymph % 38.5 % 07/16/2024 5:41 AM [facility] Comment:This is an appended report. These results have been appended to a previously preliminary verified report. Lymph Absolute 3.60(H) 0.90 - 3.20 x10(3)/mc L 07/16/2024 5:41 AM [facility] Comment:This is an appended report. These results have been appended to a previously preliminary verified report. Monocyte % 8.2 % 07/16/2024 5:41 AM [facility] Comment:This is an appended report. These results have been appended to a previously preliminary verified report. Monocyte Absolute 0.77 0.30 - 0.90 x10(3)/mc L 07/16/2024 5:41 AM [facility] Comment:This is an appended report. These results have been appended to a previously preliminary verified report. Eos % 6.6 % 07/16/2024 5:41 AM [facility] Comment:This is an appended report. These results have been appended to a previously preliminary verified report. Eos Absolute 0.62(H) 0.00 - 0.40 x10(3)/mc L 07/16/2024 5:41 AM [facility] Comment:This is an appended report. These results have been appended to a previously preliminary verified report. Basophil % 0.5 % 07/16/2024 5:41 AM [facility] Comment:This is an appended report. These results have been appended to a previously preliminary verified report. Baso Absolute 0.05 0.00 - 0.10 x10(3)/mc L 07/16/2024 5:41 AM EDT [facility] Comment:This is an appended report. These results have been appended to a previously preliminary verified report. Immature Gran % 0.2 % 5:41 AM EDT [facility] Comment:This is an appended report. These results have been appended to a previously preliminary verified report. Immature Gran Absolute <0.04 0.00 - 0.04 x10(3)/mc L 07/16/2024 5:41 AM EDT [facility] Comment:This is an appended report. These results have been appended to a previously preliminary verified report. Blood VENOUS BLOOD SPECIMEN / Unknown IP Care Team Draw / Unknown 07/16/2024 4:36 AM EDT 07/16/2024 4:46 AM EDT Elda Gaxiola MD HEMATOLOGY ORDERABLE S [facility] [place] [id number] * (ABNORMAL) Comprehensive metabolic panel (07/16/2024 4:36 AM EDT) Only the most recent of8 resultswithin the time period is included. Glucose 100 65 - 199 mg/dL 07/16/2024 5:29 AM EDT [facility] Comment:Glucose Concentratio n >=200 mg/dL plus symptoms is consistent with Diabetes Mellitus. Blood Urea Nitrogen 22(H) 8 - 18 mg/dL 07/16/2024 5:29 AM EDT [facility] Creatinine 1.65(H) 0.70 - 1.20 mg/dL 07/16/2024 5:29 AM EDT [facility] Sodium 140 135 - 145 mMol/L 07/16/2024 5:29 AM EDT [facility] Potassium 4.3 3.5 - 5.0 mMol/L 07/16/2024 5:29 AM EDT [facility] Chloride 101 98 - 107 mMol/L 07/16/2024 5:29 AM [facility] Carbon Dioxide 26 22 - 31 mMol/L 07/16/2024 5:29 AM [facility] Anion Gap 13 5 - 15 mMol/L 07/16/2024 5:29 AM [facility] Calcium 10.0 8.5 - 10.5 mg/dL 07/16/2024 5:29 AM [facility] Protein, Total 8.4(H) 6.1 - 8.0 g/dL 07/16/2024 5:29 AM [facility] Albumin 3.4 3.2 - 5.2 g/dL 07/16/2024 5:29 AM [facility] Aspartate Aminotransferase 207(H) <=30 unit/L 07/16/2024 5:29 AM [facility] Alanine Aminotransferase 99(H) 0 - 30 unit/L 07/16/2024 5:29 AM [facility] Alkaline Phosphatase 2,834(H) 35 - 105 unit/L 07/16/2024 5:29 AM [facility] Bilirubin, Total 1.4(H) <=1.3 mg/dL 07/16/2024 5:29 AM [facility] Est Glomerular Filtration Rate - Female 35 mL/min/1. 73 m?? 07/16/2024 5:29 AM [facility] Comment: This patient's estimated GFR was calculated using the 2020 CKD-EPI equation. The estimated GFR can vary from the measured GFR by up to 30% in the absence of rapidly changing kidney function. Assessment of the estimated GFR is not appropriate when creatinine concentrations are rapidly changing. For clinical situations in which a more precise estimate of GFR is necessary, consider alternative methods of GFR estimation such as a 24-hour urine creatinine clearance. Assignment of CKD stage 1 - 5 for patients with an eGFR near the transition point between stages may be based on clinical assessment of muscle mass and symptoms in addition to eGFR. Link: eGFR Calculator [employer] Blood VENOUS BLOOD SPECIMEN / Unknown IP Care Team Draw / Unknown 07/16/2024 4:36 AM EDT 07/16/2024 4:46 AM EDT Srikanth Patel MD CHEMISTRY ORDERABLES [facility] [place] [address] * Vancomycin Level, Random (07/14/2024 11:04 AM EDT) Only the most recent of5 resultswithin the time period is included. Vancomycin, Random 17.4 mg/L 2023 11:42 AM EDT [facility] Comment:This level is for de termination of the patient's vancomycin wrev-klaah-idi-curve (AUC) value. Contact the inpatient pharmacy for interpretation. Blood VENOUS BLOOD SPECIMEN / Unknown IP Care Team Draw / Unknown 07/14/2024 11:04 AM EDT 07/14/2024 11:10 AM EDT Elda Gaxiola MD CHEMISTRY ORDERABLES [facility] [place] [address] * Phosphorus (07/14/2024 12:18 AM EDT) Only the most recent of5 resultswithin the time period is included. Phosphorus 3.0 2.5 - 4.5 mg/dL 07/14/2024 1:00 AM EDT [facility] Blood VENOUS BLOOD SPECIMEN / Unknown IP Care Team Draw / Unknown 07/14/2024 12:18 AM EDT 07/14/2024 12:30 AM EDT Elda Gaxiola MD CHEMISTRY ORDERABLES [facility] [place] [address] * Protein, Serum Electrophoresis (07/13/2024 12:07 PM EDT) Blood VENOUS BLOOD SPECIMEN / Unknown IP Care Team Draw / Unknown 07/13/2024 12:07 PM EDT 07/13/2024 12:28 PM EDT Elda Gaxiola MD URINE ORDERABLES [facility] [place] [address] * (ABNORMAL) PEP, Serum (07/13/2024 12:07 PM EDT) Protein, Total 7.3 6.1 - 8.0 g/dL 07/17/2024 9:57 AM EDT [facility] Albumin Electrophoresis 2.96(L) 3.20 - 5.20 g/dL 07/17/2024 9:57 AM EDT [facility] Alpha 1 Globulin 0.43(H) 0.10 - 0.30 g/dL 07/17/2024 9:57 AM EDT [facility] Alpha 2 Globulin 1.56(H) 0.40 - 0.90 g/dL 07/17/2024 9:57 AM EDT [facility] Beta Globulin 0.83 0.50 - 1.00 g/dL 07/17/2024 9:57 AM EDT [facility] Gamma Globulin 1.51(H) 0.50 - 1.30 g/dL 07/17/2024 9:57 AM EDT [facility] M1 Band 07/17/2024 9:57 AM EDT [facility] Comment:Serum protein electr ophoresis shows a band that is a possible paraprotein. Immunofixation and quantitative immunoglobulin testing will be performed on this sample to verify that it is a monoclonal immunoglobulin. Blood VENOUS BLOOD SPECIMEN / Unknown IP Care Team Draw / Unknown 07/13/2024 12:07 PM EDT 07/13/2024 12:28 PM EDT Elda Gaxiola MD URINE ORDERABLES [facility] [place] [address] * (ABNORMAL) Free Light Chains, Serum (07/13/2024 12:07 PM EDT) [facility] [place] Free Light Chain 12.70(H) 0.72 - 2.75 mg/dL 07/13/2024 1:38 PM EDT [facility] Lambda Free Light Chain 7.89(H) 0.57 - 2.15 mg/dL 07/13/2024 1:38 PM EDT [facility] [place]/Lambda FLC Ratio 1.6096 0.4000 - 2.5800 07/13/2024 1:38 PM EDT [facility] Blood VENOUS BLOOD SPECIMEN / Unknown IP Care Team Draw / Unknown 07/13/2024 12:07 PM EDT 07/13/2024 12:28 PM EDT Elda Gaxiola MD CHEMISTRY ORDERABLES [facility] [place] [address] * (ABNORMAL) Immunoglobulins, Quantitative (07/13/2024 12:07 PM EDT) [facility] IgG 1,460 700 - 1,600 mg/dL 07/17/2024 12:27 PM EDT [facility] IgA 492(H) 70 - 400 mg/dL 07/17/2024 12:27 PM EDT [facility] IgM 133 40 - 230 mg/dL 07/17/2024 12:27 PM EDT [facility] Blood VENOUS BLOOD SPECIMEN / Unknown IP Care Team Draw / Unknown 07/13/2024 12:07 PM EDT 07/13/2024 12:28 PM EDT Elda Gaxiola MD CHEMISTRY ORDERABLES [facility] [place] [address] * Immunofixation Electrophoresis, Serum (07/13/2024 12:07 PM EDT) Immunofixation Interpretation, Serum IgG lambda restriction seen. Clinical significance of this finding is not clear. Suggest repeat study in 6-12 months. 07/18/2024 4:37 PM EDT [facility] Signing Pathologist JIMENEZ ROTHMAN MD 07/18/2024 4:37 PM EDT [facility] Blood VENOUS BLOOD SPECIMEN / Unknown IP Care Team Draw / Unknown 07/13/2024 12:07 PM EDT 07/13/2024 12:28 PM EDT Edla Gaxiola MD CHEMISTRY ORDERABLES Performing Organization Address City/[facility]/ZIP Co de Phone Number [facility] [address] * (ABNORMAL) IgG 4 (07/13/2024 12:07 PM EDT) IgG 4 125.8(H) 3.9 - 86.4 mg/dL 07/17/2024 9:07 AM EDT [facility] Blood VENOUS BLOOD SPECIMEN / Unknown IP Care Team Draw / Unknown 07/13/2024 12:07 PM EDT 07/13/2024 12:28 PM EDT Elda Gaxiola MD IMMUNOLOGY ORDERABLE S [facility] [address] * C3 Complement (07/13/2024 12:07 PM EDT) Complement C3 149 90 - 180 mg/dL 07/13/2024 1:01 PM EDT [facility] Blood VENOUS BLOOD SPECIMEN / Unknown IP Care Team Draw / Unknown 07/13/2024 12:07 PM EDT 07/13/2024 12:28 PM EDT Elda Gaxiola MD CHEMISTRY ORDERABLES Performing Organization Address City/[facility]/ZIP Co de Phone Number [facility] [address] * (ABNORMAL) C4 Complement (07/13/2024 12:07 PM EDT) Complement C4 73(H) 10 - 40 mg/dL 07/13/2024 1:01 PM EDT [facility] Blood VENOUS BLOOD SPECIMEN / Unknown IP Care Team Draw / Unknown 07/13/2024 12:07 PM EDT 07/13/2024 12:28 PM EDT Elda Gaxiola MD CHEMISTRY ORDERABLES Performing Organization Address [facility]/ZIP Co de Phone Number [facility] [place] [address] * Protein, Urine Electrophoresis (07/13/2024 11:47 AM EDT) Urine URINE SPECIMEN / Unknown Non Blood Collection / Unknown 07/13/2024 11:47 AM EDT 07/13/2024 3:51 PM EDT Elda Gaxiola MD URINE ORDERABLES Performing Organization Address City/[facility]/ZIP Co de Phone Number [facility] [place] [address] * (ABNORMAL) PEP, Urine Random (07/13/2024 11:47 AM EDT) Albumin, Urine Electrophoresis 23 % total 07/18/2024 2:08 PM EDT [facility] Globulin, Random Urine 77 % total 07/18/2024 2:08 PM EDT [facility] M1 Band, Urine 07/18/2024 2:08 PM EDT [facility] Comment:There is no evidence of clonal free light chains in this patient's urine sample. Protein, Urine 38(H) 0 - 12 mg/dL 07/18/2024 2:08 PM EDT [facility] Urine URINE SPECIMEN / Unknown Non Blood Collection / Unknown 07/13/2024 11:47 AM EDT 07/13/2024 3:51 PM EDT Elda Gaxiola MD URINE ORDERABLES [facility] [place] [address] * (ABNORMAL) Protein/Creatinine Ratio, urine (07/13/2024 11:47 AM EDT) Protein, Urine 38(H) 0 - 12 mg/dL 07/13/2024 4:59 PM EDT [facility] Creatinine, Urine 39 mg/dL 07/13/2024 4:59 PM EDT [facility] Protein / Creatinine Ratio, Urine 1.0 ratio 07/13/2024 4:59 PM EDT [facility] Urine URINE SPECIMEN / Unknown Non Blood Collection / Unknown 07/13/2024 11:47 AM EDT 07/13/2024 3:51 PM EDT Elda Gaxiola MD URINE ORDERABLES Performing Organization Address City/[facility]/ZIP Co de Phone Number [facility] [place] [address] * (ABNORMAL) U Albumin/Cre Ratio (07/13/2024 11:47 AM EDT) Albumin, Urine 46.2 mg/L 07/13/2024 4:59 PM EDT [facility] Creatinine, Urine 39 mg/dL 024 4:59 PM EDT [facility] Albumin / Creatinine Ratio, Urine 118(H) 0 - 29 mcg/mg Cr 07/13/2024 4:59 PM EDT [facility] Comment: Reference Ranges: ?? <30 mcg/mg: Normal ?? 30-300 mcg/mg: Moderately increased albuminuria.* ?? >300 mcg/mg: Severely increased albuminuria. ?? * ACEI or ARB recommended if diabetic; suggested if BP>130/80 without diabetes ?? ACEI or ARB strongly recommended if diabetic; recommended if BP>130/80 without diabetes ??Two of three specimens collected within a 3 to 6 month period should be abnormal before considering a patient to have albuminuria. Transient causes: exercise, fever, infection, CHF, marked hyperglycemia or hypertension. Persistent albuminuria indicates CKD and is an independent risk factor for ASCVD. ??ADA Standards of Medical Care in Diabetes-2016; KDIGO: Kidney International Supplements (2012) 2 ??[phone] Urine URINE SPECIMEN / Unknown Non Blood Collection / Unknown 07/13/2024 11:47 AM EDT 07/13/2024 3:51 PM EDT Elda Gaxiola MD URINE ORDERABLES [facility] [place] [address] * (ABNORMAL) Urinalysis Dipstick (07/13/2024 11:47 AM EDT) Glucose, Urine Dipstick Negative Negative 07/13/2024 4:03 PM EDT [facility] Protein, Urine Dipstick 30 mg/dL(A) Negative 07/13/2024 4:03 PM EDT [facility] Bilirubin, Urine Dipstick Negative Negative 07/13/2024 4:03 PM EDT [facility] Comment:Clinical correlation required for positive Urine Bilirubin results as false positive may occur with some drugs and drug related products. If a false positive is suspected a serum total bilirubin should be considered if clinically indicated. Urobilinogen, Urine Dipstick Normal Normal, 0.2 mg/dL, 1.0 mg/dL 07/13/2024 4:03 PM EDT [facility] pH, Urine (dipstick) 8.0 5.0 - 8.0 07/13/2024 4:03 PM EDT [facility] Blood, Urine Dipstick Negative Negative 07/13/2024 4:03 PM EDT [facility] Ketone, Urine Dipstick Negative Negative 07/13/2024 4:03 PM EDT [facility] Nitrite, Urine Dipstick Negative Negative 07/13/2024 4:03 PM EDT [facility] Leukocytes, Urine Dipstick Negative Negative 07/13/2024 4:03 PM EDT [facility] Specific [place] Urine Automated 1.011 1.005 - 1.030 07/13/2024 4:03 PM EDT [facility] Appearance, Urine Dipstick Clear Clear 07/13/2024 4:03 PM EDT [facility] Color, Urine Dipstick Yellow Yellow, Dark Yellow 07/13/2024 4:03 PM EDT [facility] CULTURE ADDED? 07/13/2024 4:03 PM EDT [facility] Urine URINE SPECIMEN OBTAINED BY CLEAN CATCH PROCEDURE / Unknown Non Blood Collection / Unknown 07/13/2024 11:47 AM EDT 07/13/2024 3:51 PM EDT Elda Gaxiola MD URINE ORDERABLES [facility] [place] [address] * UPPER EUS-ENDOSCOPIC ULTRASOUND (07/11/2024 2:58 PM EDT) UPPER ENDOSCOPIC ULTRASOUND [facility] Endoscopy Procedure Date: 07/11/2024 2:58 PM ? Patient Name: Oksana Betancourt ? Date of : 1965 ? Age: 58 ? Order #: [id number] ? Instrument Name: [id number] ? Procedure: ? Upper EUS Indications: ? Elevated liver enzymes Providers: ? Davie Swenson, Skylar Arceo, ? Ivno Ayers, [place] Referring MD: ? Medicines: ? Propofol per Anesthesia Complications: ? No immediate complications. Procedure: ? Pre-Anesthesia Assessment: ? - Prior to the procedure, a History ? and Physical was performed, and ? patient medications and allergies ? were reviewed. The patient is ? competent. The risks and benefits ? of the procedure and the sedation ? options and risks were discussed ? with the patient. All questions ? were answered and informed consent ? was obtained. Patient ? identification and proposed ? procedure were verified by the ? physician in the pre-procedure ? area. Mental Status Examination: ? alert and oriented. Airway ? Examination: normal oropharyngeal ? airway and neck mobility. ? Respiratory Examination: clear to ? auscultation. CV Examination: ? normal. Prophylactic Antibiotics: ? The patient does not require ? prophylactic antibiotics. Prior ? Anticoagulants: The patient has ? taken no anticoagulant or ? antiplatelet agents. ASA Grade ? Assessment: III - A patient with ? severe systemic disease. After ? reviewing the risks and benefits, ? the patient was deemed in ? satisfactory condition to undergo ? the procedure. The anesthesia plan ? was to use monitored anesthesia ? care (MAC). Immediately prior to ? administration of medications, the ? patient was re-assessed for ? adequacy to receive sedatives. The ? heart rate, respiratory rate, ? oxygen saturations, blood pressure, ? adequacy of pulmonary ventilation, ? and response to care were monitored ? throughout the procedure. The ? physical status of the patient was ? re-assessed after the procedure. ? The procedure, indications, ? benefits, risks and alternatives ? were explained to the patient. ? Specifically discussed were ? potential complications including, ? but not limited to, bleeding, ? perforation, infection, missing a ? cancer, and adverse medication ? reactions.The Endoscope was ? introduced through the and advanced ? to the. The patient tolerated the ? procedure well. ? Findings: ? ENDOSCOPIC FINDING: : ? No gross lesions were noted in the entire esophagus. ? No gross lesions were noted in the entire examined ? stomach. ? The examined duodenum was normal. ? ENDOSONOGRAPHIC FINDING: : ? There was no sign of significant endosonographic ? abnormality in the common bile duct. The maximum ? diameter of the duct was 8 mm. ? There was no sign of significant endosonographic ? abnormality in the pancreatic head, pancreatic body, ? pancreatic tail and main pancreatic duct. The ? pancreatic duct measured up to 2 mm in diameter. ? Moderate Sedation: ? Not applicable - See Anesthesia documentation Impression: ?- No gross lesions in the entire ? esophagus. ? - No gross lesions in the entire ? stomach. ? - Normal examined duodenum. ? - There was no sign of significant ? pathology in the common bile duct. ? - There was no sign of significant ? pathology in the pancreatic head, ? pancreatic body, pancreatic tail ? and main pancreatic duct. ? - No specimens collected. Recommendation: ?- Return patient to [facility] ? for ongoing care. ? - Resume previous diet. ? - Observe patient's clinical course. ? Attending Participation: ? I personally performed the entire procedure. ? Davie Swenson, 07/11/2024 4:15:39 PM Number of Addenda: 0 Note Initiated On: 07/11/2024 2:58 PM PROVATION 07/11/2024 2:58 PM EDT Unknown GENERAL SURGICAL ORD ERABLES PROVATION * Scan Doc: Telemetry Strips (07/11/2024 7:36 AM EDT) Only the most recent of23 resultswithin the time period is included. Narrative 07/11/2024 7:36 AM EDT Ordered by an unspecified provider. Scanning Provider MEDIA MGR SCAN EXT O RDR/RSLT * APTT (07/11/2024 4:08 AM EDT) Partial Thromboplastin Time 28 25 - 37 sec 07/11/2024 4:35 AM EDT [facility] Comment: The PTT is NOT appropriate for heparin monitoring. Use the Anti-Xa level for heparin monitoring (HEP UFH) or LMWH monitoring (HEP LMW). A PTT less than 37 seconds generally indicates adequate hemostasis. Blood VENOUS BLOOD SPECIMEN / Unknown IP Care Team Draw / Unknown 07/11/2024 4:08 AM EDT 07/11/2024 4:16 AM EDT Elda Gaxiola MD HEMATOLOGY ORDERABLE S Performing Organization Address City/[facility]/ZIP Co de Phone Number [facility] [address] * (ABNORMAL) Prothrombin Time (07/11/2024 4:08 AM EDT) Only the most recent of2 resultswithin the time period is included. Prothrombin Time 12.7(H) 9.4 - 12.5 sec 07/11/2024 4:35 AM EDT [facility] International Normalization Ratio 1.1 <=4.9 07/11/2024 4:35 AM EDT [facility] Comment: An INR < 2.0 indicates adequate procoagulant activity for hemostasis in most patients without underlying bleeding disorders, though the INR may not adequately reflect hemostatic capacity in patients with liver disease and synthetic impairment. The recommended target INR range for therapeutic anticoagulation is 2.0 - 3.0 for most applications, though lower and higher ranges may be appropriate depending on clinical circumstances. Blood VENOUS BLOOD SPECIMEN / Unknown IP Care Team Draw / Unknown 07/11/2024 4:08 AM EDT 07/11/2024 4:16 AM EDT Elda Gaxiola MD HEMATOLOGY ORDERABLE S Performing Organization Address City/[facility]/ZIP Co de Phone Number [facility] [address] * Liver/Kidney Microsome Type 1 Antibody (07/10/2024 9:30 AM EDT) Denise/Kid Mirco1 May <5.0 <=20.0 (Negative) U 07/14/2024 12:47 PM EDT [facility] Comment: Blood VENOUS BLOOD SPECIMEN / Unknown IP Care Team Draw / Unknown 07/10/2024 9:30 AM EDT 07/10/2024 9:38 AM EDT Narrative [facility] 07/14/2024 12:47 PM EDT Test Performed by: [place] [address] Photo Journalist: Cindy Payne Ph.D.; CLIA# [id number] Elda Gaxiola MD LAB SEND OUT ORDERAB LES Performing Organization Address [facility] de Phone Number [facility] [address] * Mitochondrial Antibody, M2 (07/10/2024 9:30 AM EDT) Mitochon Ab May <0.1 <0.1 (Negative) U 07/12/2024 5:50 PM EDT [facility] Comment: Blood VENOUS BLOOD SPECIMEN / Unknown IP Care Team Draw / Unknown 07/10/2024 9:30 AM EDT 07/10/2024 9:38 AM EDT Narrative [facility] - 07/12/2024 5:50 PM EDT Test Performed by: [place] [address] Photo Journalist: Cindy Payne Ph.D.; CLIA# [id number] Elda Gaxiola MD LAB SEND OUT ORDERAB LES Performing Organization Address City/[facility]/ZIP Co de Phone Number [facility] [address] * Smooth Muscle Antibody (07/10/2024 9:30 AM EDT) Sm Muscle Ab May Negative Negative 07/12/20 2:33 PM EDT [facility] Comment: Negative: No further testing will be performed ADDITIONAL INFORMATION This test was developed and its performance characteristics determined by [facility] in a manner consistent with CLIA requirements. This test has not been cleared or approved by the U.S. Food and Drug Administration. Blood VENOUS BLOOD SPECIMEN / Unknown IP Care Team Draw / Unknown 07/10/2024 9:30 AM EDT 07/10/2024 9:38 AM EDT Narrative [facility] - 07/12/2024 2:33 PM EDT Test Performed by: [facility] [address] [place] [address] Photo Journalist: Cindy Payne Ph.D.; CLIA# [id number] Elda Gaxiola MD LAB SEND OUT ORDERAB LES Performing Organization Address City/State/[facility] Co de Phone Number [facility] [address] * MRI Cholangiopancreatography WO Contrast (07/09/2024 10:28 PM EDT) [employer] WORKSTATION ID [id number] DH RAD Anatomical Region Laterality Modality Magnetic Resonan ce Impressions 07/10/2024 6:36 AM EDT Bile duct ectasia with CBD measuring up to [address] evident choledocholithiasis. Thank you for letting us participate in the care of this patient. ??If you are a health care provider and have any questions regarding this report, please contact the number below. ??For patients who have questions please contact the health inpatient care manager rn that requested your imaging first. ? Electronically signed by: Kristine Doyle MD, [facility] ([phone]), at 07/10/2024 6:36 AM Narrative 07/10/2024 6:36 AM EDT EXAMINATION: MRI CHOLANGIOPANCREATOGRAPHY WO CONTRAST CLINICAL HISTORY: CBD dilation, RUQ pain TECHNIQUE: Noncontrast MRCP was performed. 3D MIPS were created. COMPARISON: Abdominal ultrasound, July 09, 2024 CT abdomen pelvis, July 08, 2024 FINDINGS: Liver: Normal size and T2 signal intensity. Bile ducts: The intrahepatic ducts are mildly prominent centrally are normal in contour. CBD ectasia measuring up to 12 mm with gradual tapering distally. Normal choledocholithiasis or evidence of other obstruction. Gallbladder: Absent. Pancreas: Normal T2 signal intensity. No peripancreatic inflammation. Pancreatic duct: Normal caliber and configuration. Spleen: Absent. Adrenal glands: Subcentimeter bilateral adrenal nodules. Kidneys: Atrophic right kidney with simple upper pole cyst and trace perinephric fluid. Left upper pole renal scarring. Trace left perinephric fluid as well. No hydronephrosis. Bowel and mesentery: No abnormal bowel dilation or wall thickening. No free or loculated fluid. Lymph nodes: No enlarged nodes. Lower chest: No pleural effusion. Body wall: Paraspinal muscle atrophy with fatty replacement. Marrow signal: L1 vertebral body hemangioma. Chronic L5 compression deformity with kyphoplasty changes. Procedure Note Kristine Doyle MD - 07/10/2024 EXAMINATION: MRI CHOLANGIOPANCREATOGRAPHY WO CONTRAST CLINICAL HISTORY: CBD dilation, RUQ pain TECHNIQUE: Noncontrast MRCP was performed. 3D MIPS were created. COMPARISON: Abdominal ultrasound, July 09, 2024 CT abdomen pelvis, July 08, 2024 FINDINGS: Liver: Normal size and T2 signal intensity. Bile ducts: The intrahepatic ducts are mildly prominent centrally arenormal in contour. CBD ectasia measuring up to 12 mm with gradual taperingdistally. Normal choledocholithiasis or evidence of other obstruction. Gallbladder: Absent. Pancreas: Normal T2 signal intensity. No peripancreatic inflammation. Pancreatic duct: Normal caliber and configuration. Spleen: Absent. Adrenal glands: Subcentimeter bilateral adrenal nodules. Kidneys: Atrophic right kidney with simple upper pole cyst and traceperinephric fluid. Left upper pole renal scarring. Trace left perinephric fluid aswell. No hydronephrosis. Bowel and mesentery: No abnormal bowel dilation or wall thickening. Nofree or loculated fluid. Lymph nodes: No enlarged nodes. Lower chest: No pleural effusion. Body wall: Paraspinal muscle atrophy with fatty replacement. Marrow signal: L1 vertebral body hemangioma. Chronic L5 compressiondeformity with kyphoplasty changes. IMPRESSION Bile duct ectasia with CBD measuring up to [address] evident choledocholithiasis. Thank you for letting us participate in the care of this patient. If youare a health care provider and have any questions regarding this report,please contact the number below. For patients who have questions please contactthe health inpatient care manager rn that requested your imaging first. Electronically signed by: Kristine Doyle MD, [facility]([phone]), at 07/10/2024 6:36 AM Elda Gaxiola MD IMG MRI ORDERABLES * (ABNORMAL) Basic Metabolic Panel (07/09/2024 4:10 PM EDT) Only the most recent of5 resultswithin the time period is included. Glucose 61(L) 65 - 199 mg/dL 07/09/2024 4:48 PM EDT [facility] Comment:Glucose Concentratio n >=200 mg/dL plus symptoms is consistent with Diabetes Mellitus. Blood Urea Nitrogen 39(H) 8 - 18 mg/dL 07/09/2024 4:48 PM EDT [facility] Creatinine 3.37(H) 0.70 - 1.20 mg/dL 07/09/2024 4:48 PM EDT [facility] Sodium 142 135 - 145 mMol/L 07/09/2024 4:48 PM EDT [facility] Potassium 3.7 3.5 - 5.0 mMol/L 07/09/2024 4:48 PM EDT [facility] Chloride 100 98 - 107 mMol/L 07/09/2024 4:48 PM EDT [facility] Carbon Dioxide 23 22 - 31 mMol/L 07/09/2024 4:48 PM EDT [facility] Anion Gap 19(H) 5 - 15 mMol/L 07/09/2024 4:48 PM EDT [facility] Calcium 9.6 8.5 - 10.5 mg/dL 07/09/2024 4:48 PM EDT [facility] Est Glomerular Filtration Rate - Female 15 mL/min/1. 73 m?? 07/09/2024 4:48 PM EDT [facility] Comment: This patient's estimated GFR was calculated using the 2020 CKD-EPI equation. The estimated GFR can vary from the measured GFR by up to 30% in the absence of rapidly changing kidney function. Assessment of the estimated GFR is not appropriate when creatinine concentrations are rapidly changing. For clinical situations in which a more precise estimate of GFR is necessary, consider alternative methods of GFR estimation such as a 24-hour urine creatinine clearance. Assignment of CKD stage 1 - 5 for patients with an eGFR near the transition point between stages may be based on clinical assessment of muscle mass and symptoms in addition to eGFR. Link: eGFR Calculator [employer] Blood VENOUS BLOOD SPECIMEN / Unknown IP Care Team Draw / Unknown 07/09/2024 4:10 PM EDT 07/09/2024 4:17 PM EDT Elda Gaxiola MD CHEMISTRY ORDERABLES [facility] [address] * US Abdomen Limited (07/09/2024 11:16 AM EDT) WORKSTATION ID [id number] RAD Anatomical Region Laterality Modality Abdomen Ultrasound 07/09/2024 11:1 3 AM EDT Impressions 07/09/2024 11:53 AM EDT 1. ??Normal hepatic parenchymal echogenicity and contour. No focal hepatic lesion. 2. ??Normal directionality of portal venous flow. 3. ??Status post cholecystectomy. 4. ??Common bile duct measures 1 cm, a normal and nonspecific in finding in a setting cholecystectomy. No evidence of obstruction or choledocholithiasis. 5. ??Atrophic right kidney. I have personally reviewed the image(s) and the resident's interpretation and agree with the findings, Travis Alvarado MD at 07/09/2024 11:45 AM Electronically signed by: Travis Alvarado MD, [facility] ([phone]), at 07/09/2024 11:45 AM Thank you for letting us participate in the care of this patient. If you are a health care provider and have any questions regarding this report, please contact the number above. For patients who have questions, please contact the health inpatient care manager rn that requested your imaging first. ? Travis Alvarado, Staff Physician Electronically Signed Final Report ?? 07/09/2024 11:53 am Narrative 07/09/2024 11:53 AM EDT Abdominal ? (Signed Final 07/09/2024 11:53 am) PATIENT INFO: ID #: ? [id number] ?: ??[birth year] (58 yrs)(F) Name: ? OKSANA Schultz MEENU ? Visit Date: 07/09/2024 11:13 am PERFORMED BY: Attending: ?Jenny TINSLEY, Travis Blake Resident: ? Wilmar Shields MD Performed By: ? Breanne Reyna RDMS Referred By: ?ELDA GAXIOLA Location: ? [place] SERVICE(S) PROVIDED: UABDLIM - Abdominal Limited Survey Single ? [id number] Organ or Quadrant - [id number] INDICATIONS: transaminitis and ruq pain eval for biliary obstruction, portal vein thrombus ------ LIVER: ------ Right Lobe Length: ?? 14.2 ?? cm Echogenicity/Echotexture: ?? Normal GALLBLADDER: Focal Tenderness: ?Negative sonographic Thurston's sign Comment: ?Cholecystectomy BILIARY TRACT: Intrahepatic Ducts: ?? Normal Extrahepatic Ducts: ?? Normal Common Duct Size: ? 9.7 ? mm --------- PANCREAS: --------- Head: ?Poorly visualized due to ?Size: ?overlying bowel Tail: ?Poorly visualized due to ?Size: ?overlying bowel Body: ?Poorly visualized due to ?Size: ?overlying bowel RIGHT KIDNEY: Size (cm) ?L: ??7.5 Cortical Thickness: ?Cortical thinning Cortical Echogenicity: ?? Echogenic Hydronephrosis: ?No sonographic evidence Comment: ?Atrophic ---- IVC: ---- Normal in caliber where visualized. Procedure Note Travis Alvarado MD - 07/09/2024 Abdominal (Signed Final 07/09/2024 11:53 am) PATIENT INFO: ID #: [id number] : [birth year] (58 yrs)(F) Name: OKSANA BETANCOURT Visit Date: 07/09/2024 11:13 am PERFORMED BY: Attending: Travis Alvarado MD Resident: Wilamr Shields MD Performed By: Breanne Reyna RDMS Referred By: ELDA GAXIOLA Location: [place] SERVICE(S) PROVIDED: UABDLIM - Abdominal Limited Survey Single [id number] Organ or Quadrant - [id number] INDICATIONS: transaminitis and ruq pain eval for biliary obstruction, portal vein thrombus ------ LIVER: ------ Right Lobe Length: 14.2 cm Echogenicity/Echotexture: Normal GALLBLADDER: Focal Tenderness: Negative sonographic Thurston's sign Comment: Cholecystectomy BILIARY TRACT: Intrahepatic Ducts: Normal Extrahepatic Ducts: Normal Common Duct Size: 9.7 mm --------- PANCREAS: --------- Head: Poorly visualized due to Size: overlying bowel Tail: Poorly visualized due to Size: overlying bowel Body: Poorly visualized due to Size: overlying bowel RIGHT KIDNEY: Size (cm) L: 7.5 Cortical Thickness: Cortical thinning Cortical Echogenicity: Echogenic Hydronephrosis: No sonographic evidence Comment: Atrophic ---- IVC: ---- Normal in caliber where visualized. IMPRESSION 1. Normal hepatic parenchymal echogenicity and contour. No focal hepatic lesion. 2. Normal directionality of portal venous flow. 3. Status post cholecystectomy. 4. Common bile duct measures 1 cm, a normal and nonspecific in finding in a setting cholecystectomy. No evidence of obstruction or choledocholithiasis. 5. Atrophic right kidney. I have personally reviewed the image(s) and the resident's interpretation and agree with the findings, Travis Alvarado MD at 07/09/2024 11:45 AM Electronically signed by: Travis Alvarado MD, [facility] ([phone]), at 07/09/2024 11:45 AM Thank you for letting us participate in the care of this patient. If you are a health care provider and have any questions regarding this report, please contact the number above. For patients who have questions, please contact the health inpatient care manager rn that requested your imaging first. Travis Alvarado, Staff Physician Electronically Signed Final Report 07/09/2024 11:53 am Elda Gaxiola MD IMG US GEN ORDERABLE S * US Retroperitoneal Complete (07/09/2024 10:53 AM EDT) WORKSTATION ID [id number] RAD Anatomical Region Laterality Modality Abdomen Ultrasound 07/09/2024 10:5 1 AM EDT Impressions 07/09/2024 11:17 AM EDT 1. ??Slightly limited exam with no evidence of hydronephrosis or nephrolithiasis. 2. ??Stable mild right renal atrophy. I have personally reviewed the image(s) and the resident's interpretation and agree with the findings, Travis Alvarado MD at 07/09/2024 11:07 AM Thank you for letting us participate in the care of this patient. If you are a health care provider and have any questions regarding this report, please contact the number above. For patients who have questions, please contact the health inpatient care manager rn that requested your imaging first. ? Travis Alvarado, Staff Physician Electronically Signed Final Report ?? 07/09/2024 11:16 am Narrative 07/09/2024 11:17 AM EDT Renal ? (Signed Final 07/09/2024 11:16 am) PATIENT INFO: ID #: ? [id number] ?: ??[birth year] (58 yrs)(F) Name: ? OKSANA Schultz MEENU ? Visit Date: 07/09/2024 10:51 am PERFORMED BY: Attending: ?Jenny TINSLEY, Travis Blake Resident: ? Cornelius TINSLEY, Wilmar Kovacs Performed By: ? Breanne Reyna RDMS Referred By: ?ELDA GAXIOLA Location: ? [place] SERVICE(S) PROVIDED: URETRO - Retroperitoneal Complete - [id number] ? [id number] INDICATIONS: new jonathan, assess for obstruction COMPARISON: CT 07-08-24 RIGHT KIDNEY: Size (cm) ?L: ??5.9 Cortical Thickness: ?Cortical thinning Cortical Echogenicity: ?? Echogenic Hydronephrosis: ?No sonographic evidence Comment: ?Mildly atrophic LEFT KIDNEY: Size (cm) ?L: ??12.4 Cortical Thickness: ?Normal Cortical Echogenicity: ?? Normal Hydronephrosis: ?No sonographic evidence URINARY BLADDER: Pre-void (cm) ? L: ??5.7 ? AP: ??7.4 ? TV: ??8.5 Vol (ml): ?187.7 Comment: ?Partially distended, normal contour. Procedure Note Travis Alvarado MD - 07/09/2024 Renal (Signed Final 07/09/2024 11:16 am) PATIENT INFO: ID #: [id number] : [birth year] (58 yrs)(F) Name: OKSANA BETANCOURT Visit Date: 07/09/2024 10:51 am PERFORMED BY: Attending: Travis Alvarado MD Resident: Wilmar Shields MD Performed By: Breanne Reyna RDMS Referred By: ELDA GAXIOLA Location: [place] SERVICE(S) PROVIDED: URETRO - Retroperitoneal Complete - [id number] INDICATIONS: new jonathan, assess for obstruction COMPARISON: CT 07-08-24 RIGHT KIDNEY: Size (cm) L: 5.9 Cortical Thickness: Cortical thinning Cortical Echogenicity: Echogenic Hydronephrosis: No sonographic evidence Comment: Mildly atrophic LEFT KIDNEY: Size (cm) L: 12.4 Cortical Thickness: Normal Cortical Echogenicity: Normal Hydronephrosis: No sonographic evidence URINARY BLADDER: Pre-void (cm) L: 5.7 AP: 7.4 TV: 8.5 Vol (ml): 187.7 Comment: Partially distended, normal contour. IMPRESSION 1. Slightly limited exam with no evidence of hydronephrosis or nephrolithiasis. 2. Stable mild right renal atrophy. I have personally reviewed the image(s) and the resident's interpretation and agree with the findings, Travis Alvarado MD at 07/09/2024 11:07 AM Thank you for letting us participate in the care of this patient. If you are a health care provider and have any questions regarding this report, please contact the number above. For patients who have questions, please contact the health inpatient care manager rn that requested your imaging first. Travis Alvarado, Staff Physician Electronically Signed Final Report 07/09/2024 11:16 am Elda Gaxiola MD [facility] GEN ORDERABLE S * (ABNORMAL) Urinalysis Microscopic Reflex to Culture (07/09/2024 9:25 AM EDT) Bacteria, Urine Many(A) None /HPF 10:56 AM EDT [facility] RBC, Urine 0 0 - 4 /HPF 07/09/2024 10:56 AM EDT [facility] WBC, Urine 41(H) 0 - 5 /HPF 07/09/2024 10:56 AM EDT [facility] Squamous Epithelial Cells, Urine 1 0 - 5 /HPF 07/09/2024 10:56 AM EDT [facility] Hyaline Casts, Urine 1 0 - 2 /LPF 07/09/2024 10:56 AM EDT [facility] Granular Casts, Urine 2(H) <=0 /LPF 07/09/2024 10:56 AM EDT [facility] Comment 07/09/2024 10:56 AM EDT [facility] Comment:Interpret results wi th caution, microscopic results are from a suboptimal specimen. CULTURE ADDED? 07/09/2024 10:56 AM EDT [facility] Comment:Yes Urine URINE SPECIMEN OBTAINED BY CLEAN CATCH PROCEDURE / Unknown Non Blood Collection / Unknown 07/09/2024 9:25 AM EDT 07/09/2024 10:04 AM EDT Elda Gaxiola MD URINE ORDERABLES [facility] [place] [address] * Urinalysis Microscopic with Reflex to Culture (07/09/2024 9:25 AM EDT) Only the most recent of2 resultswithin the time period is included. CULTURE ADDED? 07/09/2024 10:56 AM EDT [facility] Urine URINE SPECIMEN OBTAINED BY CLEAN CATCH PROCEDURE / Unknown Non Blood Collection / Unknown 07/09/2024 9:25 AM EDT 07/09/2024 10:04 AM EDT Elda Gaxiola MD URINE ORDERABLES [facility] [place] [address] * Urea nitrogen, urine, random (07/09/2024 9:25 AM EDT) Urea Nitrogen, Urine 661 mg/dL 07/09/2024 11:01 AM EDT [facility] Urine URINE SPECIMEN / Unknown Non Blood Collection / Unknown 07/09/2024 9:25 AM EDT 07/09/2024 10:04 AM EDT Elda Gaxiola MD URINE ORDERABLES Performing Organization Address City/[facility]/ZIP Co de Phone Number [facility] [place] [address] * Creatinine, urine, random (07/09/2024 9:25 AM EDT) Creatinine, Urine 168 mg/dL 07/09/2024 11:01 AM EDT [facility] Urine URINE SPECIMEN / Unknown Non Blood Collection / Unknown 07/09/2024 9:25 AM EDT 07/09/2024 10:04 AM EDT Elda Gaxiola MD URINE ORDERABLES Performing Organization Address City/[facility]/ZIP Co de Phone Number [facility] [place] [address] * (ABNORMAL) Urinalysis with reflex Culture (07/09/2024 9:25 AM EDT) Only the most recent of2 resultswithin the time period is included. Glucose, Urine Dipstick Negative Negative 07/09/2024 10:56 AM [facility] Protein, Urine Dipstick 100 mg/dL(A) Negative 07/09/2024 10:56 AM [facility] Bilirubin, Urine Dipstick Negative Negative 07/09/2024 10:56 AM [facility] Comment:Clinical correlation required for positive Urine Bilirubin results as false positive may occur with some drugs and drug related products. If a false positive is suspected a serum total bilirubin should be considered if clinically indicated. Urobilinogen, Urine Dipstick Normal Normal, 0.2 mg/dL, 1.0 mg/dL 07/09/2024 10:56 AM [facility] pH, Urine (dipstick) 5.5 5.0 - 8.0 07/09/2024 10:56 AM [facility] Blood, Urine Dipstick Trace(A) Negative 07/09/2024 10:56 AM [facility] Ketone, Urine Dipstick Trace(A) Negative 07/09/2024 10:56 AM [facility] Nitrite, Urine Dipstick Negative Negative 07/09/2024 10:56 AM [facility] Leukocytes, Urine Dipstick Small(A) Negative 07/09/2024 10:56 AM [facility] Specific [place] Urine Automated 1.019 1.005 - 1.030 07/09/2024 10:56 AM [facility] Appearance, Urine Dipstick Clear Clear 07/09/2024 10:56 AM [facility] Color, Urine Dipstick Dark Yellow Yellow, Dark Yellow 07/09/2024 10:56 AM [facility] CULTURE ADDED? 07/09/2024 10:56 AM [facility] Comment:Yes Urine URINE SPECIMEN OBTAINED BY CLEAN CATCH PROCEDURE / Unknown Non Blood Collection / Unknown 07/09/2024 9:25 AM EDT 07/09/2024 10:04 AM EDT Elda Gaxiola MD URINE ORDERABLES Performing Organization Address City/[facility]/ZIP Co de Phone Number [facility] [address] * (ABNORMAL) Urine culture (07/09/2024 9:25 AM EDT) Only the most recent of2 resultswithin the time period is included. Urine Culture Greater than 100,000 cfu/ml Enterococcus faecium(A) VITEK 2 METHOD 07/11/2024 6:26 AM EDT [facility] Urine URINE SPECIMEN OBTAINED BY CLEAN CATCH PROCEDURE / Unknown Non Blood Collection / Unknown 07/09/2024 9:25 AM EDT 07/09/2024 10:04 AM EDT Narrative Organism Antibiotic Method Susceptibility Enterococcus faecium Ampicillin VITEK 2 METHOD >=32.0 ug/ml: Resistant Enterococcus faecium Ciprofloxacin VITEK 2 METHOD >=8.0 ug/ml: Resistant Enterococcus faecium Levofloxacin VITEK 2 METHOD >=8.0 ug/ml: Resistant Enterococcus faecium Nitrofurantoin VITEK 2 METHOD 64.0 ug/ml: Intermediate Enterococcus faecium Penicillin VITEK 2 METHOD >=64.0 ug/ml: Resistant Enterococcus faecium Tetracycline VITEK 2 METHOD >=16.0 ug/ml: Resistant Enterococcus faecium Vancomycin VITEK 2 METHOD <=0.5 ug/ml: Susceptible Elda Gaxiola MD MICROBIOLOGY - GENER AL ORDERABLES [facility] [place] [address] * (ABNORMAL) Gamma GT (07/09/2024 5:02 AM EDT) Gamma Glutamyl Transferase 2,038(H) 5 - 36 unit/L 07/09/2024 5:59 AM EDT [facility] Blood VENOUS BLOOD SPECIMEN / Unknown IP Care Team Draw / Unknown 07/09/2024 5:02 AM EDT 07/09/2024 5:14 AM EDT Srikanth Patel MD CHEMISTRY ORDERABLES Performing Organization Address [facility] Co de Phone Number [facility] [place] [address] * Film Library- Storage Only CT Head (07/08/2024 8:45 PM EDT) Narrative [facility] 07/08/2024 8:45 PM EDT This exam is auto-finalizing. It's purpose is for storage only. Gaudencio Scales DO IMG FILM LIBRARY ORD ERABLES Performing Organization Address [facility] de Phone Number [place], [place] * Film Library- Storage Only CT Abdomen & Pelvis (07/08/2024 8:45 PM EDT) Narrative [facility] 07/08/2024 8:45 PM EDT This exam is auto-finalizing. It's purpose is for storage only. Gaudencio Scales DO [facility] FILM LIBRARY ORD ERABLES Performing Organization Address [facility] de Phone Number [place], [place] * Film Library- Storage Only DX Chest (07/08/2024 8:45 PM EDT) Narrative [facility] 07/08/2024 8:45 PM EDT This exam is auto-finalizing. It's purpose is for storage only. Gaudencio Scales DO [facility] FILM LIBRARY ORD ERABLES Performing Organization Address [facility] de Phone Number [place], [place] * Magnesium (06/05/2024 2:10 AM EDT) Only the most recent of2 resultswithin the time period is included. Magnesium 0.87 0.69 - 1.07 mMol/L 06/05/2024 2:50 AM EDT [facility] Blood VENOUS BLOOD SPECIMEN / Unknown IP Care Team Draw / Unknown 06/05/2024 2:10 AM EDT 06/05/2024 2:17 AM EDT Arlin Jackson MD CHEMISTRY ORDERABL ES Performing Organization Address City/[facility]/ZIP Co de Phone Number [facility] [address] * (ABNORMAL) pro-Brain Natriuretic Peptide (06/04/2024 9:38 AM EDT) Only the most recent of2 resultswithin the time period is included. NT-proBNP 2,189(H) <=124 pg/mL 06/04/2024 10:34 AM EDT [facility] Blood VENOUS BLOOD SPECIMEN / Unknown IP Care Team Draw / Unknown 06/04/2024 9:38 AM EDT 06/04/2024 9:55 AM EDT Arlin Jackson MD CHEMISTRY ORDERABL ES Performing Organization Address [facility] Co de Phone Number [facility] [address] * EKG 12 Lead (06/02/2024 4:08 PM EDT) Only the most recent of2 resultswithin the time period is included. Ventricular rate 112 BPM MUSE SYSTEM Atrial Rate 112 BPM MUSE SYSTEM P-R Interval 126 ms MUSE SYSTEM QRS Duration 130 ms MUSE SYSTEM Q-T Interval 372 ms MUSE SYSTEM QTC Calculated (Bezet) 507 ms MUSE SYSTEM Calculated P [place] 62 degrees MUSE SYSTEM Calculated R [place] 10 degrees MUSE SYSTEM Calculated T [place] 171 degrees MUSE SYSTEM INTERPRETATION Sinus tachycardia Left bundle branch block Abnormal ECG When compared with ECG of 01-JUN-2024 00:47, No significant change was found Confirmed by MD Lyle, Travis ([id number]) on 06/04/2024 6:24:01 AM MUSE SYSTEM 06/02/2024 4:08 PM EDT 06/04/2024 6:24 AM EDT Ady Perkins MD ECG ORDERABLES Performing Organization Address City/[facility] Co de Phone Number MUSE SYSTEM * Heparin (unfractionated) Level (06/02/2024 8:24 AM EDT) Only the most recent of4 resultswithin the time period is included. Pathologist [facility] UF Heparin 0.58 IU/mL 06/02/2024 8:58 AM EDT [facility] Comment: Heparin (anti-Xa) levels should be determined in a plasma sample that has been drawn 6 hours after a dose change to approximate steady-state for continuous heparin infusions. Indication specific Heparin (anti-Xa) levels based on order set selection: Acute DVT or PE prevention: ? 0.3-0.7 IU/mL Thrombosis Prevention (e.g. atrial fibrillation, jasper-procedural bridging, mechanical valves): ? 0.3-0.7 IU/mL Acute Coronary Syndrome: ? 0.3-0.7 IU/mL Stroke Indications: ? 0.3-0.5 IU/mL Ultra-low intensity (select indications in cardiac surgery): ? 0.1-0.3 IU/mL Blood VENOUS BLOOD SPECIMEN / Unknown IP Care Team Draw / Unknown 06/02/2024 8:24 AM EDT 06/02/2024 8:33 AM EDT Ham Haque MD HEMATOLOGY ORDERABLE S [facility] [address] * (ABNORMAL) Troponin - Single (06/01/2024 11:25 AM EDT) Only the most recent of2 resultswithin the time period is included. [facility] Troponin-T, High Sensitivity 400(H) <=14 ng/L 06/01/2024 12:04 PM EDT [facility] Comment: This patient's troponin T concentration was determined using the Haris 5th Generation troponin T assay. According to the fourth universal definition of myocardial infarction, the term acute myocardial infarction should be used when there is acute myocardial injury with clinical evidence of acute myocardial ischemia and with detection of a rise and/or fall of cardiac troponin values with at least one value above the 99th percentile and at least one of the following: - Symptoms of myocardial ischemia; - New ischemic ECG changes; - Development of pathological Q waves; - Imaging evidence of new loss of viable myocardium or new regional wall motion ?? abnormality in a pattern consistent with an ischemic etiology; - Identification of a coronary thrombus by angiography or autopsy (not for type 2 or 3 ?? MIs) Serial measurement of troponin and the change in troponin concentration over time (delta) is crucial for the diagnosis of acute myocardial infarction. Guidance on the interpretation of the new 5th Generation Troponin T values and the delta troponin value can be found in the [facility] Test Catalog Troponin - https://one-.testcatalog.org/catalogs/565/files/32223 Reference: Fourth [place] Definition of Myocardial Infarction. Journal of the [place] College [employer] 2018;72:9093-4617 Blood VENOUS BLOOD SPECIMEN / Unknown IP Care Team Draw / Unknown 06/01/2024 11:25 AM EDT 06/01/2024 11:32 AM EDT Ady Perkins MD CHEMISTRY ORDERABLES Performing Organization Address City/State/[facility] Co de Phone Number [facility] [address] [place] [phone] * ECHO LMTD W CONTRAST W LMTD SPEC DOPP COLOR DOPP (06/01/2024 9:06 AM EDT) EF 57 HEARTLAB SYSTEM Anatomical Region Laterality Modality Cardiac Other 06/01/2024 7:13 AM EDT Narrative 06/01/2024 11:08 AM EDT [address] [place] [address] ? Echocardiogram Report Name: OKSANA BETANCOURT ? Study Date: 06/01/2024 07:13 AMBP: 128/59 mmHg ? Patient Location: ^489^A : 1965 ? Height: 165 cm ? Account: [id number] Age: 58 yrs ? Weight: 98 kg Gender: Female ?BSA: 2.0 m2 Ordering Physician: HAM HAQUE Referring Physician: MICHAEL ABEL Performed By: VICKY Anderson Reason For Study: Acute on Chronic systolic and diastolic heart failure Interpreting Fellow: Ambrose Rodriguez. Exam Location: [facility]. Interpretation Summary -Left ventricle is of normal size, wall thickness, and systolic function with an ejection fraction of 57% by Guzman's biplane. There are is regional tardykinesis as ascribed. -Right ventricle is of normal size and systolic function. -Normal bi-atrial size. -There is a bioprosthetic valve in the aortic position, known to be a TAVR implanted in 2021. It appears well seated with normal function. MG of 2 mmHg. -Compared to recent priors, there has been an oscillating degree of inferior/septal hypokinesis, which may be due to conduction delay or history of ASCVD. Overall, it appears not significantly changed between the studies. Procedure Limited - 74274. Color Doppler - 49903. Doppler - 83708. Image enhancement Optison was used for left ventricular opacification. Suboptimal quality. Left Ventricle Left ventricle is of normal size. Wall thickness is normal. Left ventricular systolic function is normal. The left ventricular ejection fraction is 57% by Guzman's biplane. There are segmental wall motion abnormalities. Right Ventricle The right ventricle is of normal size. Right ventricular systolic function is normal. Left Atrium The left atrium is normal. No abnormality of the interatrial septum is identified. Right Atrium The right atrium is normal. Aortic Valve There is a transcatheter valve in the aortic position. The peak gradient across the prosthesis is 5.1 mmHg . The mean gradient across the prosthesis is 2.2 mmHg . There appears to be no paravalvular regurgitation. There appears to be no intravalvular regurgitation. Mitral Valve The mitral valve is structurally normal. The mitral valve leaflets are thickened. There is calcification of the posterior leaflet of the mitral valve. There is mild mitral regurgitation. Tricuspid Valve The tricuspid valve is structurally and functionally normal. There is trace tricuspid regurgitation. Pulmonic Valve The pulmonic valve appears to be structurally and functionally normal. There is no pulmonic valve regurgitation. Great Arteries The diameter at the level of the sinuses of Valsalva is 1.9 cm. The maximum diameter of the proximal ascending aorta is 2.4 cm. No abnormalities of the pulmonary artery are identified. Venous Inferior vena cava is normal in size. Inferior vena cava collapse greater than 50% with respiration. Pericardium/Pleural The pericardium appears normal. Hemodynamics Left ventricular diastolic function is abnormal. There is Grade II LV diastolic dysfunction (abnormal relaxation with elevated left ventricular filling pressure). Ejection Fraction ?2D Measurements ? Volumes EF(MOD-bp): 57.5 % ?IVSd: 1.1 cm ? LAV(MOD- bp) Indexed: ?LVIDd: 3.8 cm ?LVIDs: 2.7 cm ?34.5 ml/m2 ?LVPWd: 1.1 cm ?RA A4Cs_phl: 14.7 cm2 ?RWT: 0.60 {ratio} ?EDV(MOD-bp) Indexed: ?LV mass(C)d: 138.7 grams ? 82.1 ml/m2 ?LV mass(C)dI: 67.9 grams/m2 ?ESV(MOD- bp) Indexed: ?Ao root diam: 1.9 cm ? 34.9 ml/m2 ?Ao root diam index: 0.94 ? SV(LVOT): 36.9 ml ?asc Aorta Diam: 2.4 cm ?LVOT diam: 1.7 cm ?SI(LVOT): 18.1 ml/m2 ?TAPSE_phl: 1.8 cm Doppler LV V1 VTI: 16.0 cm Ao V2 VTI: 19.7 cm Ao Max: 112.4 cm/sec Ao valve max: 5.1 mmHg Ao valve mean: 2.2 mmHg MV E max paula: 110.9 cm/sec MV A max paula: 125.3 cm/sec MV E/A: 0.88 Lat Peak E' Paula: 5.9 cm/sec E/e' (lat): 18.7 Med Peak E' Paula: 4.1 cm/sec E/e' (med): 27.3 E/e' Average: 23.0 NICO(I,D): 1.9 cm2 Dimensionless index Aov: 0.81 I ?WMSI = 1.38 ? % Normal = 63 ?Segments ??Size X - Cannot ?2 - ?4 - ?1-2 ? small Interpret ?1 - Normal ?? Hypokinetic 3 - Akinetic Dyskinetic ?? 3-5 ? moderate 5 - ? 6-14 ?large Aneurysmal ?15-16 ?? diffuse Procedure Note Ham Montenegro MD - 06/01/2024 [address] [place] [id number] Echocardiogram Report Name: OKSANA BETANCOURT Study Date: 407:13 AMBP: 128/59 mmHg [facility] 1965 Height: 165 cm Account: [id number] Age: 58 yrs Weight: 98 kg Gender: Female BSA: 2.0 m2 Ordering Physician: HAM HAQUE Referring Physician: MICHAEL ABEL Performed By: VICKY Anderson Reason For Study: Acute on Chronic systolic and diastolic heart failure Interpreting Fellow: Ambrose Rodriguez. Exam Location: [facility]. Interpretation Summary -Left ventricle is of normal size, wall thickness, and systolic functionwith an ejection fraction of 57% by Guzman's biplane. There are is regionaltardykinesis as ascribed. -Right ventricle is of normal size and systolic function. -Normal bi-atrial size. -There is a bioprosthetic valve in the aortic position, known to be aTAVR implanted in 2021. It appears well seated with normal function. MG of 2mmHg. -Compared to recent priors, there has been an oscillating degree of inferior/septal hypokinesis, which may be due to conduction delay orhistory of ASCVD. Overall, it appears not significantly changed between thestudies. Procedure Limited - 49922. Color Doppler - 54326. Doppler - 51549. Image enhancementOptison was used for left ventricular opacification. Suboptimal quality. Left Ventricle Left ventricle is of normal size. Wall thickness is normal. Leftventricular systolic function is normal. The left ventricular ejection fraction is 57%by Guzman's biplane. There are segmental wall motion abnormalities. Right Ventricle The right ventricle is of normal size. Right ventricular systolic functionis normal. Left Atrium The left atrium is normal. No abnormality of the interatrial septum isidentified. Right Atrium The right atrium is normal. Aortic Valve There is a transcatheter valve in the aortic position. The peak gradientacross the prosthesis is 5.1 mmHg . The mean gradient across the prosthesis is2.2 mmHg . There appears to be no paravalvular regurgitation. There appears to evaristo intravalvular regurgitation. Mitral Valve The mitral valve is structurally normal. The mitral valve leaflets arethickened. There is calcification of the posterior leaflet of the mitral valve. Thereis mild mitral regurgitation. Tricuspid Valve The tricuspid valve is structurally and functionally normal. There istrace tricuspid regurgitation. Pulmonic Valve The pulmonic valve appears to be structurally and functionally normal.There is no pulmonic valve regurgitation. Great Arteries The diameter at the level of the sinuses of Valsalva is 1.9 cm. Themaximum diameter of the proximal ascending aorta is 2.4 cm. No abnormalities ofthe pulmonary artery are identified. Venous Inferior vena cava is normal in size. Inferior vena cava collapse greaterthan 50% with respiration. Pericardium/Pleural The pericardium appears normal. Hemodynamics Left ventricular diastolic function is abnormal. There is Grade II LVdiastolic dysfunction (abnormal relaxation with elevated left ventricular fillingpressure). Ejection Fraction 2D Measurements Volumes EF(MOD-bp): 57.5 % IVSd: 1.1 cm LAV(MOD-bp)Indexed: LVIDd: 3.8 cm LVIDs: 2.7 cm 34.5 ml/m2 LVPWd: 1.1 cm RA A4Cs_phl: 14.7cm2 RWT: 0.60 {ratio} EDV(MOD-bp)Indexed: LV mass(C)d: 138.7 grams 82.1 ml/m2 LV mass(C)dI: 67.9 grams/m2 ESV(MOD-bp)Indexed: Ao root diam: 1.9 cm 34.9 ml/m2 Ao root diam index: 0.94 SV(LVOT): 36.9ml asc Aorta Diam: 2.4 cm LVOT diam: 1.7 cm SI(LVOT): 18.1ml/m2 TAPSE_phl: 1.8 cm Doppler LV V1 VTI: 16.0 cm Ao V2 VTI: 19.7 cm Ao Max: 112.4 cm/sec Ao valve max: 5.1 mmHg Ao valve mean: 2.2 mmHg MV E max paula: 110.9 cm/sec MV A max paula: 125.3 cm/sec MV E/A: 0.88 Lat Peak E' Paula: 5.9 cm/sec E/e' (lat): 18.7 Med Peak E' Paula: 4.1 cm/sec E/e' (med): 27.3 E/e' Average: 23.0 NICO(I,D): 1.9 cm2 Dimensionless index Aov: 0.81 I WMSI = 1.38 % Normal = 63 SegmentsSize X - Cannot 2 - 4 - 1-2small Interpret 1 - Normal Hypokinetic 3 - Akinetic Dyskinetic 3-5moderate 5 - 6-14large Aneurysmal 15-16diffuse Ham Haque MD ECHO ORDERABLES * TSH (06/01/2024 1:44 AM EDT) [facility] Thyroid Stimulating Hormone 0.60 0.27 - 4.20 mcIU/mL 06/01/2024 2:33 AM EDT [facility] Comment: Reference Interval (mcIU/mL): ?? Females: ? First Trimester: 0.23-3.88 ? Second Trimester: 0.22-3.90 ? Third Trimester: 0.44-4.66 Blood VENOUS BLOOD SPECIMEN / Unknown IP Care Team Draw / Unknown 06/01/2024 1:44 AM EDT 06/01/2024 1:56 AM EDT Ham Haque MD CHEMISTRY ORDERABLES [facility] [place] [address] * (ABNORMAL) Hepatic Function Panel (06/01/2024 1:44 AM EDT) [facility] Albumin 3.8 3.2 - 5.2 g/dL 06/01/2024 2:33 AM EDT [facility] Aspartate Aminotransferase 31(H) <=30 unit/L 06/01/2024 2:33 AM EDT [facility] Alanine Aminotransferase 24 0 - 30 unit/L 06/01/2024 2:33 AM EDT [facility] Alkaline Phosphatase 542(H) 35 - 105 unit/L 06/01/2024 2:33 AM EDT [facility] Bilirubin, Total 0.2 <=1.3 mg/dL 06/01/2024 2:33 AM EDT [facility] Bilirubin, Direct <0.2 0.0 - 0.3 mg/dL 06/01/2024 2:33 AM [facility] Protein, Total 7.1 6.1 - 8.0 g/dL 06/01/2024 2:33 AM [facility] Blood VENOUS BLOOD SPECIMEN / Unknown IP Care Team Draw / Unknown 06/01/2024 1:44 AM EDT 06/01/2024 1:56 AM EDT Ham Haque MD CHEMISTRY ORDERABLES [facility] [place] [address] * Lipid Panel (Reflex Direct LDL) (06/01/2024 1:44 AM EDT) Cholesterol, Total 158 mg/dL 06/01/2024 2:33 AM [facility] Comment: Desirable: < 200 mg/dL Borderline High: 200 - 239 mg/dL High: > or = 240 mg/dL Triglyceride 208 mg/dL 06/01/2024 2:33 AM [facility] Comment: Normal: <150 mg/dL Borderline High: 150-199 mg/dL High: 200-499 mg/dL Very High: > or =500 mg/dL HDL Cholesterol 42 mg/dL 4 2:33 AM [facility] Comment:Female: High Risk: < 50 mg/dL LDL Cholesterol 81 mg/dL 4 2:33 AM [facility] Comment: Desirable: <100 mg/dL Above Desirable: 100-129 mg/dL Borderline High: 130-159 mg/dL High: 160-189 mg/dL Very High: > or =190 mg/dL Note: LDL calculation updated to the NIH LDL formula as of 04/22/2024 Non-HDL Cholesterol 116 mg/dL 06/01/2024 2:33 AM [facility] Comment: Desirable: <130 mg/dL Above Desirable: 130-159 mg/dL Borderline High: 160-189 mg/dL High: 190-219 mg/dL Very High: > or = 220 mg/dL Blood VENOUS BLOOD SPECIMEN / Unknown IP Care Team Draw / Unknown 06/01/2024 1:44 AM EDT 06/01/2024 1:56 AM EDT [facility] - 06/01/2024 2:33 AM EDT It is important to review the results of your lipid panel with your health care provider. You can compare your lipid results to the ranges below and whether they are in the desirable range. These ranges are only meant to be used for people without known cardiac disease, history of stroke, or peripheral vascular disease (blockages in the leg arteries or diabetes). If you have one of these conditions, your desirable LDL-C (bad cholesterol) will likely be even lower. ?? ACC/AHA Guidelines (most recently Lay et al. JACC 06/22/22): * For individuals with atherosclerotic cardiovascular disease (ASCVD) or LDL >=190 mg/dL, use a high-intensity statin(40-80 mg atorvastatin or 20-40 mg rosuvastatin with goal >=50% LDL reduction) * For individuals with diabetes, age 40-75 without ASCVD, moderate-intensity statin (goal 30-49% LDL reduction); consider high intensity statin for those with increased risk. * For adults without diabetes or ASCVD, aged 40-75 with LDL 70-189 mg/dL, estimate 10 year ASCVD risk with smartphrase ??.ASCVDRISK ??or Dynamed Decisions. If 10 year risk is 7.5%-19.9% (intermediate risk), consider moderate intensity statin based on risk enhancers and patient preference. Consider coronary artery calcium test (CT)if there is concern regarding the benefit of a statin. If ten year risk is >=20%, initiate high-intensity statin. * Evaluate for secondary causes of Triglycerides >500 mg/dL or LDL >190 mg/dL. * Lifestyle modification is a critical component of ASCVD risk reduction. * If not reaching LDL goals on maximally tolerated statin, consider ezetimibe and/or a PCSK9 inhibitor: ?* Target for primary prevention: LDL<100 ?* Target for those with ASCVD or diabetes and 10-year risk >=20%: LDL<70 ?* Target for those with very high risk ASCVD: LDL<55 (Very high risk being the presence of 2 or more of: recent acute coronary syndrome, past ? myocardial infarction, ischemic stroke, symptomatic peripheral artery disease) Ham Haque MD CHEMISTRY ORDERABLES [facility] [place] [address] * XR Chest One View (06/01/2024 1:36 AM EDT) WORKSTATION ID [id number] RAD Anatomical Region Laterality Modality Chest N/A Digital Radiogra phy Impressions 06/01/2024 2:22 AM EDT No acute finding. Thank you for letting us participate in the care of this patient. ??If you are a health care provider and have any questions regarding this report, please contact the number below. ??For patients who have questions please contact the health inpatient care manager rn that requested your imaging first. ? Narrative 06/01/2024 2:22 AM EDT EXAMINATION: XR CHEST ONE VIEW CLINICAL HISTORY: acute SOB on 05/31/2024 in patient s/p chemo (pembrolizumab, docetaxel, and carboplatin on 05/29/2024. TECHNIQUE: 1 view of the chest COMPARISON: CT 11/29/2023 and radiograph 11/28/2023 FINDINGS: The lungs are clear. The amado and cardiomediastinal silhouette are without acute finding. Unchanged appearance of aortic valve. Unchanged right-sided chest port. No pleural collection or pneumothorax. Review of bone windows is unremarkable. Procedure Note Gisela Castro MD - 06/01/2024 EXAMINATION: XR CHEST ONE VIEW CLINICAL HISTORY: acute SOB on 05/31/2024 in patient s/p chemo(pembrolizumab, docetaxel, and carboplatin on 05/29/2024. TECHNIQUE: 1 view of the chest COMPARISON: CT 11/29/2023 and radiograph 11/28/2023 FINDINGS: The lungs are clear. The amado and cardiomediastinal silhouette are withoutacute finding. Unchanged appearance of aortic valve. Unchanged right-sided chestport. No pleural collection or pneumothorax. Review of bone windows is unremarkable. IMPRESSION No acute finding. Thank you for letting us participate in the care of this patient. If youare a health care provider and have any questions regarding this report,please contact the number below. For patients who have questions please contactthe health inpatient care manager rn that requested your imaging first. Electronically signed by: Gisela Castro MD, [facility]([phone]), at 06/01/2024 2:22 AM Ham Haque MD IMG DX ORDERABLES * ECHO COMPLETE (05/30/2024 12:59 PM EDT) EF 50 HEARTLAB SYSTEM Anatomical Region Laterality Modality Other 05/30/2024 9:45 AM EDT Narrative 05/30/2024 1:54 PM EDT [address] [place] [address] ? Echocardiogram Report Name: OKSANA BETANCOURT ? Study Date: 05/30/2024 09:45 AMBP: 106/56 mmHg : 1965 ? Account: [id number] Age: 58 yrs Gender: Female Ordering Physician: TRAVIS OLIVA Referring Physician: TRAVIS OLIVA Performed By: JERAMIE Reason For Study: CHF, COPD, Breast CA, Chemotherapy[facility] Location: [facility]. Interpretation Summary The left ventricle is normal in size with low normal systolic function. LVEF is 50-55% by visual estimation. The right ventricle is normal in size and function. PASP estimated at 31 mmHg. The atria are normal in size. There is a bioprosthetic visualized in the aortic position, known to be a TAVR implanted in 2021. It appears well seated with normal function. There is cxoy-vo-siakkmsm mitral regurgitation. See body of report for additional details. LV function is similar to recent prior study dated 03/06/24. Prosthetic aortic gradients are slightly less (10/6 from 15/8 mmHg) and mitral regurgitation appears slightly increased. Procedure Complete-[id number]. Suboptimal quality. This study is limited because of body habitus. This study is limited because the patient was unable to turn. There is normal sinus rhythm. Left Ventricle Left ventricle is of normal size. Wall thickness is normal. Left ventricular ejection fraction is estimated visually at 50-55%. Septal motion is consistent with an intraventricular conduction delay. Right Ventricle The right ventricle is of normal size. Right ventricular systolic function is normal. Left Atrium The left atrium is normal. No abnormality of the interatrial septum is identified. Right Atrium The right atrium is normal. Aortic Valve There is a transcatheter valve in the aortic position. The date or year of insertion is 2021. There appears to be no intravalvular regurgitation. The peak gradient across the prosthesis is 9.5 mmHg . The mean gradient across the prosthesis is 5.8 mmHg . Mitral Valve There is mitral annular calcification. The mitral valve leaflets are thickened. There is mild to moderate mitral regurgitation. Tricuspid Valve The tricuspid valve is structurally normal. There is trace tricuspid regurgitation. Great Arteries The diameter at the level of the sinuses of Valsalva is 1.9 cm. The maximum diameter of the proximal ascending aorta is 2.0 cm. Venous Inferior vena cava is normal in size. Inferior vena cava collapse greater than 50% with respiration. Pericardium/Pleural There is no pericardial effusion. Hemodynamics The peak right ventricular systolic pressure is 31.4 mmHg . The estimated right atrial pressure is 3mmHg. ? 2D Measurements ? Volumes ?IVSd: 1.00 cm ?LA Volume Index: ?LVIDd: 4.5 cm ?27.8 ml/m2 ?LVIDs: 3.6 cm ?SV(LVOT): 54.7 ml ?LVPWd: 1.0 cm ?LV Stroke Volume: 54.7 ml ?RWT: 0.45 {ratio} ?LV mass(C)d: 156.4 grams ?Ao root diam: 1.9 cm ?asc Aorta Diam: 2.0 cm ?LVOT diam: 1.9 cm ?TAPSE_phl: 1.7 cm Doppler ?3D/Strain/TomTec LV V1 VTI: 20.3 cm ?LV GLS (S3P): -8.5 % LVOT max Velocity: 91.9 cm/sec Ao V2 VTI: 34.4 cm Ao Max: 153.9 cm/sec Ao valve max: 9.5 mmHg Ao valve mean: 5.8 mmHg MV E max paula: 142.4 cm/sec MV A max paula: 161.5 cm/sec MV E/A: 0.88 MV dec time: 0.21 sec MV mean P.2 mmHg Lat Peak E' Paula: 9.6 cm/sec E/e' (lat): 14.8 NICO(I,D): 1.6 cm2 Dimensionless index Aov: 0.59 TR max paula: 266.6 cm/sec RVSP(TR): 31.4 mmHg I ?WMSI = 1.00 ? % Normal = 100 ?Segments ??Size X - Cannot ?2 - ?4 - ?1-2 ? small Interpret ?1 - Normal ?? Hypokinetic 3 - Akinetic Dyskinetic ?? 3-5 ? moderate 5 - ? 6-14 ?large Aneurysmal ?15-16 ?? diffuse Procedure Note Gillian Godoy MD - 05/30/2024 [address] [place] [id number] Echocardiogram Report Name: OKSANA BETANCOURT Study Date:05/30/2024 09:45 AMBP: 106/56 mmHg : 1965 Account: [id number] Age: 58 yrs Gender: Female Ordering Physician: TRAVIS OLIVA Referring Physician: TRAVIS OLIVA Performed By: JERAMIE Reason For Study: CHF, COPD, Breast CA, Chemotherapy, HX TAVR ([place] 2years ago) Exam Location: [facility]. Interpretation Summary The left ventricle is normal in size with low normal systolic function.LVEF is 50-55% by visual estimation. The right ventricle is normal in size and function. PASP estimated at 31mmHg. The atria are normal in size. There is a bioprosthetic visualized in the aortic position, known to be aTAVR implanted in 2021. It appears well seated with normal function. There is tkyu-ud-znllsjfl mitral regurgitation. See body of report for additional details. LV function is similar torecent prior study dated 03/06/24. Prosthetic aortic gradients are slightly less (10/6from 15/8 mmHg) and mitral regurgitation appears slightly increased. Procedure Complete-[id number]. Suboptimal quality. This study is limited because of bodyhabitus. This study is limited because the patient was unable to turn. There isnormal sinus rhythm. Left Ventricle Left ventricle is of normal size. Wall thickness is normal. Leftventricular ejection fraction is estimated visually at 50-55%. Septal motion isconsistent with an intraventricular conduction delay. Right Ventricle The right ventricle is of normal size. Right ventricular systolic functionis normal. Left Atrium The left atrium is normal. No abnormality of the interatrial septum isidentified. Right Atrium The right atrium is normal. Aortic Valve There is a transcatheter valve in the aortic position. The date or yearof insertion is 2021. There appears to be no intravalvular regurgitation. Thepeak gradient across the prosthesis is 9.5 mmHg . The mean gradient acrossthe prosthesis is 5.8 mmHg . Mitral Valve There is mitral annular calcification. The mitral valve leaflets arethickened. There is mild to moderate mitral regurgitation. Tricuspid Valve The tricuspid valve is structurally normal. There is trace tricuspid regurgitation. Great Arteries The diameter at the level of the sinuses of Valsalva is 1.9 cm. Themaximum diameter of the proximal ascending aorta is 2.0 cm. Venous Inferior vena cava is normal in size. Inferior vena cava collapse greaterthan 50% with respiration. Pericardium/Pleural There is no pericardial effusion. Hemodynamics The peak right ventricular systolic pressure is 31.4 mmHg . The estimatedright atrial pressure is 3mmHg. 2D Measurements Volumes IVSd: 1.00 cm LA VolumeIndex: LVIDd: 4.5 cm 27.8 ml/m2 LVIDs: 3.6 cm SV(LVOT): 54.7ml LVPWd: 1.0 cm LV Stroke Volume:54.7 ml RWT: 0.45 {ratio} LV mass(C)d: 156.4 grams Ao root diam: 1.9 cm asc Aorta Diam: 2.0 cm LVOT diam: 1.9 cm TAPSE_phl: 1.7 cm Doppler 3D/Strain/TomTec LV V1 VTI: 20.3 cm LV GLS (S3P): -8.5 % LVOT max Velocity: 91.9 cm/sec Ao V2 VTI: 34.4 cm Ao Max: 153.9 cm/sec Ao valve max: 9.5 mmHg Ao valve mean: 5.8 mmHg MV E max paula: 142.4 cm/sec MV A max paula: 161.5 cm/sec MV E/A: 0.88 MV dec time: 0.21 sec MV mean P.2 mmHg Lat Peak E' Paula: 9.6 cm/sec E/e' (lat): 14.8 NICO(I,D): 1.6 cm2 Dimensionless index Aov: 0.59 TR max paula: 266.6 cm/sec RVSP(TR): 31.4 mmHg I WMSI = 1.00 % Normal = 100 SegmentsSize X - Cannot 2 - 4 - 1-2small Interpret 1 - Normal Hypokinetic 3 - Akinetic Dyskinetic 3-5moderate 5 - 6-14large Aneurysmal 15-16diffuse Travis Oliva MD ECHO ORDERABLES * Film Library- Storage Only CT Chest (05/29/2024 5:47 PM EDT) Narrative [facility] - 05/29/2024 5:47 PM EDT This exam is auto-finalizing. It's purpose is for storage only. Gaudencio Scales DO G FILM LIBRARY ORD ERABLES [place], [place] * External Cardiology Result (05/29/2024 3:55 PM EDT) Anatomical Region Laterality Modality Other Historical Provider EXTERNAL CARDIOLO GY RESULT * Scan Doc: Lab (05/29/2024 12:00 AM EDT) Only the most recent of2 resultswithin the time period is included. Narrative 05/29/2024 12:00 AM EDT Ordered by an unspecified provider. Scanning Provider MEDIA MGR SCAN EXT O RDR/RSLT * (ABNORMAL) External Hematology Lab Results (05/07/2024 10:37 AM EDT) WBC - External 10.73 EXTER NAL FACILITY RBC - External 3.17 EXTER NAL FACILITY Hemoglobin - External 9.6(L) EXTERNAL FACILITY Hematocrit - External 30.7(L) EXTERNAL FACILITY Platelets - External 453 EXTERNAL FACILITY Neutr ABS (ANC) - External 5.99 EXTERNAL FACILITY 05/07/2024 10:3 7 AM EDT Historical Provider EXTERNAL LAB ORDSamir GUTIERREZ EXTERNAL FACILITY * (ABNORMAL) External Chemistry Lab Results (05/07/2024 10:37 AM EDT) Blood Urea Nitrogen - External 22(H) EXTERNAL FACILITY Creatinine - External 1.4(H) EXTERNAL FACILITY Sodium - External 142 EXTERNAL FACILITY Potassium - External 4.6 EXTERNAL FACILITY Chloride - External 106 EXTERNAL FACILITY CO2 - External 26.3 EXTER NAL FACILITY Anion Gap - External 9.7 EXTERNAL FACILITY Calcium - External 9.5 EXTERNAL FACILITY Protein, Total - External 7 EXTERNAL FACILITY Albumin - External 3.1(L) EXTERNAL FACILITY AST (SGOT) - External 20 EXTERNAL FACILITY ALT (SGPT) - External 22 EXTERNAL FACILITY Alk Phos - External 193(H) EXTERNAL FACILITY 05/07/2024 10:3 7 AM EDT Historical Provider EXTERNAL LAB ORDSamir GUTIERREZ EXTERNAL FACILITY from Last 3 Months Advance Directives Documents on File Type Date Recorded Patient Adhesive Primer Expl anation Advance Directives and Living Will 07/11/2024 9:56 AM Lizeth Menard (sist er in law) * Attempt Cardiopulmonary Resuscitation - Inpatient (Latest Code Status on File) Date Activated Date Inactivated Comments 07/09/2024 2:04 AM 07/16/2024 5:38 PM Question Answer Comments Code Status decision made by: Patient Content of discussion: Discussed possibl e CPR and intubation in case of cardiopulmonary arrest with patient. Understood explanations and agrees to full code status * Attempt Cardiopulmonary Resuscitation - Inpatient Date Activated Date Inactivated Comments 06/01/2024 12:06 AM 06/05/2024 6:36 PM Question Answer Comments Code Status decision made by: Patient Content of discussion: FULL CODE; ACLS as requir ed * Attempt Cardiopulmonary Resuscitation - Inpatient Date Activated Date Inactivated Comments 05/31/2024 11:59 PM 06/01/2024 12:06 AM Question Answer Comments Code Status decision made by: Patient Content of discussion: FULL CODE; ACLS as requir ed * Attempt Cardiopulmonary Resuscitation - Inpatient Date Activated Date Inactivated Comments 03/23/2024 1:11 PM 03/24/2024 4:34 AM Question Answer Comments Code Status decision made by: Patient Content of discussion: Full code * Attempt Cardiopulmonary Resuscitation - Inpatient Date Activated Date Inactivated Comments 11/28/2023 10:16 AM 12/04/2023 4:25 PM Question Answer Comments Code Status decision made by: Patient Care Teams Environmental Technician Relationship Specialty Start Date End Date Gaudencio Scales DO [address] [place] [address] PCP - General Family Medicine 11/28/23
--- OUTSIDE RECORDS SUMMARY | 2024-07-27 12:42 | XMS_ITS | Encounter Summary ---
Author Organization [facility] Address [facility] [place] [address] Care Team Providers Care Sheep And Wheat Farmer Name Role Phone Gaudencio Scales Primary Care Provider [phone] Encounter Details Date Type Department Care Team (Late st Contact Info) Description 07/17/2024 Orders Only General Surgery at [facility] [place] [address] Jr Fulton MD [facility] [address] [place] [address] Malignant neoplasm of left breast in female, estrogen receptor negative, unspecified site of breast Social History Tobacco Use Types Packs/Day Years [...] from your doctor or pharmacy? Rarely 05/29/2024 [facility] Utilities Answer Date Recorded In the past 12 months has [employer] electric, gas, oil, or water company threatened [...] place to sleep or slept in a senior living (including now)? No 11/29/2023 Housing Stability Vital Sign Answer Jeferson e Recorded In the last 12 months, was t here a time when you were not able to pay the mortgage or rent on time? No 07/09/2024 In the past 12 months, how m any times have you moved where you were living? 1 07/09/2024 At [facility] the [facility] were you homeless or living in a senior living (including now)? No 07/09/2024 IPV Inpatient Questions [...] 8:40 AM EST Hospital Encounter Mammography at [facility] [place] [address] Jr Fulton MD [facility] [address] [place] [address] 07/30/2024 8:45 AM EST Appointment Mammography at [address] Jr Fulton MD [facility] [place] [address] 07/30/2024 9:20 AM EST Hospital Encounter Mammography at [address] Jr Fulton MD [facility] [place] [address] 07/30/2024 10:51 AM EST Hospital Encounter [facility] [place] [address] Jr Fulton MD [facility] [place] [address] 07/30/2024 10:51 AM EST Anesthesia Event [facility] [place] [address] Megan Orona [place] [address] 07/30/2024 10:51 AM EST - 07/30/2024 1:11 PM EST Surgery Outpatient [facility] [address] Jr Fulton MD [facility] [place] [address] MASTECTOMY PARTIAL (WRVU 10.13) 08/22/2024 2:00 PM EST Office Visit General Surgery at [address] Cindy Pierce APRN [facility] [place] [address] 08/22/2024 3:00 PM EST Office Visit Hematology [place] [address] Soo Lyn MD [facility] [place] [place] [address] 08/27/2024 9:30 AM EST Scheduled View Only Radiation Oncology at [address] [phone] Rad Nurse, [facility] 08/27/2024 10:00 AM EST Office Visit Radiation Oncology at [address] [phone] Paradise Prado MD [facility] [place] [address] 2024 1:00 PM EDT Office Visit Cardiology at [address] [place] [address] Ham Montenegro MD [facility] [place] [address] Scheduled Orders Name Type Priority Associated Diagnoses Orde r Schedule Mammo Needle Localization Left Imaging Routine Malignant neoplasm of left breast in female, estrogen receptor negative, unspecified site of breast Expected: 07/30/2024, Expires: 01/15/2026 Mammo Needle Localization Left Imaging Routine Malignant neoplasm of left breast in female, estrogen receptor negative, unspecified site of breast Expected: 07/30/2024, Expires: 01/15/2026 Mammo Specimen Left Imaging Routine Malignant neoplasm of left breast in female, estrogen receptor negative, unspecified site of breast Expected: 07/30/2024, Expires: 01/15/2026 Mammo Specimen Left Imaging Routine Malignant neoplasm of left breast in female, estrogen receptor negative, unspecified site of breast Expected: 07/30/2024, Expires: 01/15/2026 Mammo [place] Node Injection Imaging Routine Malignant neoplasm of left breast in female, estrogen receptor negative, unspecified site of breast Expected: 07/30/2024, Expires: 01/15/2026 Scheduled Procedures Name Priority Associated Diagnoses Date/Ti [...] documented as of this encounter Visit Diagnoses Diagnosis Malignant neoplasm of left breast in female, estrogen receptor negative, unspecified site of breast documented in this encounter Care Teams Sheep And Wheat Farmer Relationship Specialty Start Date End Date Gaudencio Scales DO [address] [place] [id number] PCP - General Family Medicine 11/28/23 documented as of this encounter
--- OUTSIDE RECORDS SUMMARY | 2024-07-27 12:42 | XMS_ITS ---
Author Organization [facility] Address [facility] [place] [address] Care Team Providers Care Marine Tower Operator Name Role Phone Gaudencio Scales Primary Care Provider [phone] Active Problems Problem Noted Date Diagnosed Date [...] et al, JPEN J Parenteral Enteral Nutr. 2012 January; 36(3): 273-83) Abdominal pain 07/09/2024 Bilious vomiting with nausea 07/09/2024 Gastroesophageal reflux 07/09/2024 Hypothyroidism 07/09/2024 Elevated alkaline phosphatase level 07/09/2024 JOHN (acute kidney injury) 07/09/2024 ASCVD (arteriosclerotic cardiovascular disease) 07/02/2024 Overview (07/02/2024): Cardiac Catheterization: (11/2023) RIGHT dominance Indication: NSTE-ACS LVEDP 16 Artery Lesion Intervention LM Distal 80 3.5 x 12 [facility] LAD Os 80 POBA LCx Stent patent Os 75 POBA RCA Os 90 (ISR) Prox 90 (ISR) 3.5 x 22 [place] POBA NB: RCA intervened on first day, [...] negative 02/22/2024 Overview (02/22/2024): 02/10/24 bx [facility]: ER-/WA-/HER2 negative left breast IDC, grade 3, and DCIS grade 3. 01/17/24 mammogram [facility]: 1.1 cm left breast UOQ. Current Oncology Plans [facility] HEAD AND NECK CANCER - CARBOplatin / DOCEtaxeL / PEMBROLIZUMAB* Plan Start Date:03/28/2024 Plan Provider:Soo Lyn MD Linked Problems Malignant neoplasm of upper- outer quadrant of left breast in female, estrogen receptor negative Treatment Medications Current Day (Day 1 , Cycle 5 - Planned for 06/19/2024) Next Day (Day 1, Cycle 6 - Planned for 07/10/2024) CARBOplatin (Paraplatin) in 150 mL infusionDOCEtaxeL (Taxotere) in sodium chloride 0.9% 250 mL infusionDOCEtaxeL (Taxotere) Solutionpembrolizumab (Keytruda) in sodium chloride 0.9% 100 mL infusionpembrolizumab (Keytruda) Recon Soln CARBOplatin (Paraplatin) 494 mg in dextrose 5% 299.4 mL infusionDOCEtaxeL (Taxotere) 160 mg in sodium chloride 0.9% Non-PVC 258 mL infusionpembrolizumab (Keytruda) 200 mg in sodium chloride 0.9% 108 mL infusion CARBOplatin (Paraplatin) 494 mg in dextrose 5% 299.4 mL infusionDOCEtaxeL (Taxotere) 160 mg in sodium chloride 0.9% Non-PVC 258 mL infusionpembrolizumab (Keytruda) 200 mg in sodium chloride 0.9% 108 mL infusion Past Plans No past plan information found. Radiation Treatments * No radiation treatments are documented for this patient in [facility]. Treatments may have been administered in another system. Resolved Problems Problem Noted Date Diagnosed Date Resolved Date Acute on chronic systolic an d diastolic heart failure, NYHA class 2 05/31/2024 07/02/2024 Medication management 04/27/20242023 NSTEMI (non-ST elevated myoc ardial infarction) 11/28/2023 07/02/2024
--- OUTSIDE RECORDS SUMMARY | 2024-07-27 12:42 | XMS_ITS | Encounter Summary ---
Author Organization [facility] Address [facility] [place] [address] Care Team Providers Care Career Services Representative Name Role Phone Gaudencio Scales Antoine VERGARA Primary Care Provider [phone] Encounter Details Date Type Department Care Team (Late st Contact Info) Description 07/26/2024 Telephone General Surgery at [facility] [place] [phone] Jr Fulton MD [facility] [address] [place] [address] Social History Tobacco Use Types Packs/Day Years [...] from your doctor or pharmacy? Rarely 05/29/2024 [facility] Utilities Answer Date Recorded In the past 12 months has [employer], gas, oil, or water [employer] threatened to shut off services in your [...] any time in the past 12 m [facility], were you homeless or living [...] encounter Miscellaneous Notes * Telephone Encounter - Jr Fulton MD - 07/26/2024 11:53 AM EST I called Oksana today and informed her that the recent PET CT did not show any metastases in her clavicle. It did not show any other definite distant mets. Will plan to go ahead with wire loc partial mastectomy, wire loc left axillary node excision and sentinel node excision on Tuesday She is holding her anti-coagulants. documented in this encounter Plan of Treatment Upcoming Encounters Date Type Department Care Team (Latest Contact Info) Description 07/30/2024 8:40 AM EST Hospital Encounter Mammography at [place] [phone] Jr Fulton MD [facility] [place] [address] 07/30/2024 8:45 AM EST Appointment Mammography at [place] [phone] Jr Fulton MD [facility] [place] [address] 07/30/2024 9:20 AM EST Hospital Encounter Mammography at [place] [phone] Jr Fulton MD [facility] [place] [address] 07/30/2024 10:51 AM EST Hospital Encounter Outpatient [place] [phone] Jr Fulton MD [facility] [place] [address] 07/30/2024 10:51 AM EST Anesthesia Event [facility]patient [place] [address] Megan Orona [place] [address] 07/30/2024 10:51 AM EST - 07/30/2024 1:11 PM EST Surgery [facility] [place] [phone] Jr Fulton MD [facility] [place] [address] MASTECTOMY PARTIAL (WRVU 10.13) 08/22/2024 2:00 PM EST Office Visit General Surgery at [place] [phone] Cindy Pierce APRN [facility] [place] [address] 08/22/2024 3:00 PM EST Office Visit Hematology [place] [phone] Soo Lyn MD [facility] [place] [address] 08/27/2024 9:30 AM EST Scheduled View Only Radiation Oncology at [address] [phone] [address] Ovalles 08/27/2024 10:00 AM EST Office Visit Radiation Oncology at [address] [phone] Paradise Prado MD [facility] [place] [address] 2024 1:00 PM EDT Office Visit Cardiology at [address] [place] [phone] Ham Montenegro MD [facility] [place] [address] Scheduled Procedures Name Priority Associated Diagnoses Date/Ti [...] on filedocumented in this encounter Care Teams Career Services Representative Relationship Specialty Start Date End Date Gaudencio Scales DO [address] [facility] [place] [address] PCP - General Family Medicine 11/28/23 documented as of this encounter
--- OUTSIDE RECORDS SUMMARY | 2024-07-27 12:42 | XMS_ITS | Encounter Summary ---
Author Organization [facility] Address [facility] [place] [address] Care Team Providers Care Manager Analytical Name Role Phone Loyda Gaudencio Antoine VERGARA Primary Care Provider Reason for Referral * Diagnostic Test (Routine) - Closed Specialty Diagnoses / Procedures Referred By Contac t Referred To Contact Radiology Diagnoses Malignant neoplasm of upper-outer quadrant of left breast in female, estrogen receptor negative Procedures NM PET CT Skull Base to Mid-thigh Sandra Ken MD [facility] [place] [address] [place] [address] Referral ID Status Reason Start Date Expiration Date V isits Requested Visits Authorized [id number] Closed Specialty Service Requested 07/13/2024 01/11/2026 1 1 Reason for Visit * Diagnostic Test (Routine) - Closed Specialty Diagnoses / Procedures Referred By Contac t Referred To Contact Radiology Diagnoses Malignant neoplasm of upper-outer quadrant of left breast in female, estrogen receptor negative Procedures NM PET CT Skull Base to Mid-thigh Sandra Ken MD [facility] [place] [address] [place] [address] Referral ID Status Reason Start Date Expiration Date V isits Requested Visits Authorized [id number] Closed Specialty Service Requested 07/13/2024 01/11/2026 1 1 Encounter Details Date Type Department Care Team (Latest Contact Info) Description 07/23/2024 10:47 AM EST - 07/23/2024 11:59 PM [facility] Hospital Encounter Nuclear Medicine at [facility] [place] [address] Sandra Ken MD [facility] [place] [address] Malignant neoplasm of upper-outer quadrant of left breast in female, estrogen receptor negative Discharge Disposition: Home Social History Tobacco Use [...] from your doctor or pharmacy? Rarely 05/29/2024 [facility] Utilities Answer Date Recorded In the past 12 months has e electric, gas, oil, or water company [...] place to sleep or slept in a fdc (including now)? No 11/29/2023 Housing Stability Vital Sign Answer Jeferson e Recorded In the last 12 months, was t here a time when you were not able to pay the mortgage or rent on time? No 07/09/2024 In the past 12 months, how m any times have you moved where you were living? 1 07/09/2024 At any time in the past [address] [facility], were you homeless or living in a fdc (including now)? No 07/09/2024 IPV Inpatient Questions [...] by mouth as needed for Pain (Please general counselor patient on equal parts benadryl and [...] 8:40 AM EST Hospital Encounter Mammography at [place] [phone] Jr Fulton MD [facility] [place] [address] 07/30/2024 8:45 AM EST Appointment Mammography at [place] [phone] Jr Fulton MD [facility] [address] [place] [address] 07/30/2024 9:20 AM EST Hospital [place] [phone] Jr Fulton MD [facility] [place] [address] 07/30/2024 10:51 AM EST Hospital Encounter Outpatient [place] [phone] Jr Fulton MD [facility] [place] [address] 07/30/2024 10:51 AM EST Anesthesia Event Outpatient [place] [phone] Megan [place] [address] 07/30/2024 10:51 AM EST - 07/30/2024 1:11 PM EST Surgery Outpatient Surgery Center [place] [phone] Jr Fulton MD [facility] [place] [address] MASTECTOMY PARTIAL (WRVU 10.13) 08/22/2024 2:00 PM EST Office Visit General Surgery at [place] [phone] Cindy Pierce APRN [facility] [address] 08/22/2024 3:00 PM EST Office Visit Hematology and Oncology at [place] [phone] Soo Lyn MD [facility] [place] [address] 08/27/2024 9:30 AM EST Scheduled View Only Radiation Oncology at [address] [phone] [place] 08/27/2024 10:00 AM EST Office Visit Radiation Oncology at [address] [phone] Paradise Prado MD [facility] [place] [address] 2024 1:00 PM EDT Office Visit Cardiology at [address] [place] [phone] Ham Montenegro MD [facility] [address] Scheduled Procedures Name Priority Associated Diagnoses Date/Ti [...] left breast in female, estrogen receptor negative documented in this encounter Results * (ABNORMAL) NM PET CT Skull Base to Mid-thigh (07/23/2024 12:17 PM EST) WORKSTATION ID [id number] RAD Anatomical Region Laterality Modality Positron Emissio [...] who have questions please contact the health medicare interviewer that requested your imaging first. ? Narrative 07/26/2024 10:01 AM EST EXAMINATION: NM PET CT STANDARD SKULL BASE TO MID-THIGH CLINICAL HISTORY: 58F with sclerotic lesion of clavicle in setting of biopsy proven TNBC C50.412, Malignant neoplasm of upper-outer quadrant of left female breast - Z17.1, Estrogen receptor negative status (ER-) TECHNIQUE: Following IV injection of 83-gyntst-2-deoxyglucose (FDG) a standard uptake of approximately 60 [...] status (ER-) TECHNIQUE: Following IV injection of 85-lpnjkk-2-deoxyglucose (FDG) astandard uptake of approximately 60 minutes, [...] patients who have questions please contactthe health medicare interviewer that requested your imaging first. Electronically signed by: Errol Méndez [facility] ([phone]),at 07/26/2024 10:01 AM Sandra Ken MD IMG PET ORDERABLES documented in this encounter Visit Diagnoses Diagnosis Malignant neoplasm of upper-outer quadrant of left breast in female, estrogen receptor negative documented in this encounter Administered Medications Inactive Administered Medications - up to 3 most recent administrations Medication Order MAR Action Action Date Dose Rate Site fludeoxyglucose (F-18) FDG injection 0-20 mCi 0-20 mCi, Intravenous, ONCE PRN, 1 dose, Starting on Tue07/23/24 at 1115, Until Tue07/23/24 at 1100, Per Protocol, Radiology Contrast, Routine Given 07/23/2024 11:00 AM EST 13.9 mCi Right Arm documented in this encounter Care Teams Manager Analytical Relationship Specialty Start Date End Date Gaudencio cSales DO [address] [place] [address] PCP - General Family Medicine 11/28/23 documented as of this encounter
--- OUTSIDE RECORDS SUMMARY | 2024-07-27 12:43 | XMS_ITS | Encounter Summary ---
[place] [address] Care Team Providers Care Client Development Director Name Role Phone Gaudencio Scales DO Primary Care Provider [phone] Reason for Visit * Auth/Cert (Routine) Specialty Diagnoses / Procedures Referred By Radha carr Referred To Contact Diagnoses Abdominal pain Obstructive biliary process Procedures [facility] [address] [facility] Referral ID Status Reason Start Date Expiration Date Visits Re quested Visits Authorized [id number] 1 1 Encounter Details Date Type Department Care Team (Late st Contact Info) Description 07/11/2024 3:15 PM EDT Ancillary [place] [address] Social History Tobacco Use Types Packs/Day Years [...] from your doctor or pharmacy? Rarely 05/29/2024 [facility] Utilities Answer Date Recorded In the [...] place to sleep or slept in a custodial (including now)? No 11/29/2023 Housing Stability Vital Sign Answer Jeferson e Recorded In the last 12 months, was t here a time when you were not able to pay the mortgage or rent on time? No 07/09/2024 In the past 12 months, how m any times have you moved where you were living? 1 07/09/2024 At any time in the past 12 m [facility], were you homeless or living in a custodial (including now)? No 07/09/2024 IPV Inpatient Questions [...] 8:40 AM EST Hospital Encounter Mammography at [place] [address] Jr Fulton MD [facility] [place] [address] 07/30/2024 8:45 AM EST Appointment Mammography at [place] [address] Jr Fulton MD [facility] [place] [address] 07/30/2024 9:20 AM EST Hospital Encounter Mammography at [place] [address] Jr Fulton MD [facility] [address] [place] [address] 07/30/2024 10:51 AM EST Hospital Encounter Outpatient Surgery Center [place] [address] Jr Fulton MD [facility] [address] [place] [address] 07/30/2024 10:51 AM EST Anesthesia Event [facility] [place] [address] Megan Orona [place] [address] 07/30/2024 10:51 AM EST - 07/30/2024 1:11 PM EST Surgery Outpatient Surgery [facility] [place] [phone] Jr Fulton MD [facility] [place] [address] MASTECTOMY PARTIAL (WRVU 10.13) 08/22/2024 2:00 PM EST Office [place] [address] Cindy Pierce APRN [facility] [place] [address] 08/22/2024 3:00 PM EST Office Visit Hematology [place] [phone] Soo Lyn MD [facility] [place] [address] 08/27/2024 9:30 AM EST Scheduled View Only Radiation Oncology at [address] [phone] [address] [place]valles 08/27/2024 10:00 AM EST Office Visit Radiation Oncology at [address] [phone] Paradise Prado MD [facility] [place] [address] 2024 1:00 PM EDT Office Visit Cardiology at [address] [phone] Ham Montenegro MD [facility] [place] [address] Scheduled Procedures Name Priority Associated Diagnoses Date/Ti [...] Procedure Name Priority Date/Time Associated Diagnosis Comments UPPER EUS-ENDOSCOPIC ULTRASOUND Routine 07/11/2024 2:58 PM EDT documented in this encounter Results * UPPER EUS-ENDOSCOPIC ULTRASOUND (07/11/2024 2:58 PM EDT) UPPER ENDOSCOPIC ULTRASOUND [facility] Endoscopy Procedure Date: 07/11/2024 2:58 PM ? Patient Name: Oksana Betancourt ? Date of : 1965 ? Age: 58 ? Order #: [id number] ? Instrument Name: [id number] ? Procedure: ? Upper EUS Indications: ? Elevated liver enzymes Providers: ? Davie Swenson, Skylar Arceo, ? Ivon Ayers, Creative Intern Referring MD: ? Medicines: ? Propofol per [...] EDT Unknown GENERAL SURGICAL ORD ERABLES [employer]ATION documented in this encounter Visit Diagnoses Not on filedocumented in this encounter Care Teams Client Development Director Relationship Specialty Start Date End Date Gaudencio Scales DO [address] [place] [address] PCP - General Family Medicine 11/28/23 documented as of this encounter
--- OUTSIDE RECORDS SUMMARY | 2024-07-27 12:43 | XMS_ITS | Encounter Summary ---
Author Organization [facility] [place] [address] Care Team Providers Care Golf Course Designer Name Role Phone Gaudencio Scales Antoine VERGARA Primary Care Provider [phone] Reason for Visit * Auth/Cert (Routine) Specialty Diagnoses / Procedures Referred By Radha carr Referred To Contact Diagnoses Abdominal pain Obstructive biliary process Procedures EMERGENCY YUNIELI [place] [address] [place] Referral ID Status Reason Start Date Expiration Date Visits Re quested Visits Authorized [id number] 1 1 Encounter Details Date Type Department Care Team (Late st Contact Info) Description 07/11/2024 3:40 PM EDT Anesthesia [place] [address] Ignacia Maria MD [facility] DR ANESTHESIOLOGY [place] [address] Anesthesia Record Procedure Summary Procedure Name Responsible Anesthesiologist Anesthesia Start Time Anesthesia Stop Time UPPER EUS- ENDOSCOPIC ULTRASOUND (WRVU 3.47) (Trunk) Ignacia Maria MD 07/11/24 1540 07/11/24 1559 Events Date Time Event Comment 07/11/2024 1540 AN Verify 1540 Start 1540 An Start Data 1545 An Induction 1545 Anesthesia Ready 1559 an stop data 1559 Recovery or ICU Handoff Keyla ent care was transferred to the destination unit staff after review of the patient's medical history, current anesthetic/surgical status and plan, according to the Provider Handoff Checklist. 1559 Stop 1739 Meds Name Total lidocaine IV 60 mg propofoL 150 mg propofol INF 129.6 mg lactated ringers infusion 100 mL * Agents Name O2 Auxiliary Flowmeter 1 * Blood No blood administrations on file. Lines, Drains, and Airways Type Details Placement Removal Incision 03/23/24; 1423; Righ t; neck; non-laparascopic puncture (IJ access for mediport placement) 03/23/24 1423 by Grisel Christopher RN Incision 03/23/24; 1430; Righ t, upper; chest; horizontal (From mediport insertion) 03/23/24 1430 by Grisel Christopher RN Implanted Port 03/23/24; 1443; Sing le Lumen; power injectable port; infraclavicular fossa, right; superior vena cava; placement verified by x-ray; BEE Sánchez; Vaccess CT PORT LOT # [id number] 03/23/24 1443 by Grisel Christopher RN PIV 07/09/24; 0000; 20 g auge; median cubital vein (antecubital fossa), left; Outside hospital; no longer indicated, removed per policy/procedure, catheter/device intact; 07/16/24; 1440 07/09/24 0000 by Lio Wiley RN 07/16/24 1440 by Tammi Grimaldo RN PIV 07/11/24; 1455; 22 g auge; median cubital vein (antecubital fossa), right; J Rodriguez; distraction; no longer indicated, lumen/catheter not patent, removed per policy/procedure, catheter/device intact; 07/12/24; 0930 07/11/24 1455 by Tresa Rodriguez, RN 07/12/24 0930 by Kimberlee Richardson, RN documented in this encounter Social History Tobacco [...] from your doctor or pharmacy? Rarely 05/29/2024 [facility] Utilities Answer Date Recorded In the past [...] place to sleep or slept in a alf (including now)? No 11/29/2023 Housing Stability Vital Sign Answer Jeferson e Recorded In the last 12 months, was t here a time when you were not able to pay the mortgage or rent on time? No 07/09/2024 In the past 12 months, how m any times have you moved where you were living? 1 07/09/2024 At any time in the past 12 m [facility], were you homeless or living in a alf (including now)? No 07/09/2024 IPV Inpatient Questions [...] on file documented as of this encounter OR Notes * Anesthesia Postprocedure Evaluation - Ignacia Maria MD - 07/11/2024 5:39 PM EDT Department of Anesthesiology Post-procedure Note Patient: Oksana Betancourt Procedure Summary Date: 07/11/24 Room / Location: [facility] ENDO 3 / [facility] ENDOSCOPY Anesthesia Start: 1540 Anesthesia Stop: 1559 Procedure: UPPER EUS- ENDOSCOPIC ULTRASOUND (WRVU 3.47) (Trunk) Diagnosis: (Elevated LFT's) Surgeons: Davie Swenson MD Responsible Provider: Ignacia Maria MD Anesthesia Type: MAC ASA Status: 3 All Anesthesia Providers: Anesthesiologist: Ignacia Maria MD WORKERS COMPENSATION PARALEGAL: Dez Mason CRNA Vitals Value Taken Time BP 138/65 07/11/24 1700 Temp Pulse 56 07/11/24 1602 Resp 16 07/11/24 1700 SpO2 100 % 07/11/24 1716 Pain Level 0 07/11/24 1700 Vitals shown include unfiled device data. Patient Location: PACU/[facility] Level of Consciousness: Awake and Alert Pain Management: Satisfactory Analgesia PONV: None Cardiovascular Status: At Baseline and Hemodynamically Stable Respiratory Status: At Baseline and Room Air Postoperative Fluid Status: Intravascular EUvolemia Possible Anesthetic Complications: NONE apparent at time of evaluation Final Primary Anesthesia Type: MAC (The anesthetic type performed was the same as planned.) Comments: Ignacia Maria MD * Anesthesia Preprocedure Evaluation - Ignacia Maria MD - 07/11/2024 5:33 PM EDT Pre-Anesthesia Evaluation for: Oksana Betancourt a 58 y.o. female. Procedure(s): UPPER EUS- ENDOSCOPIC ULTRASOUND (WRVU 3.47) Patient Active Problem List Diagnosis Date Noted Severe protein-calorie malnutrition 07/10/2024 *Abdominal pain 07/09/2024 Bilious vomiting with nausea 07/09/2024 Gastroesophageal reflux 07/09/2024 Hypothyroidism 07/09/2024 Elevated alkaline phosphatase level 07/09/2024 JOHN (acute kidney injury) 07/09/2024 ASCVD (arteriosclerotic cardiovascular disease) 07/02/2024 Cardiomyopathy, ischemic 07/02/2024 Nonrheumatic aortic valve stenosis 07/02/2024 PAF (paroxysmal atrial fibrillation) 07/02/2024 Malignant neoplasm of upper-outer quadrant of left breast in female, estrogen receptor negative 02/22/2024 Past Medical History: Diagnosis Date CAD (coronary artery disease) Cancer COPD (chronic obstructive pulmonary disease) GERD (gastroesophageal reflux disease) Paroxysmal A-fib Past Surgical History: Procedure Laterality Date SECTION CHOLECYSTECTOMY HYSTERECTOMY IR MEDIPORT PLACEMENT 03/23/2024 IR Mediport Placement 03/23/2024 Cely Schmitt PA [facility] INTERVENTIONL RAD MAMMO US BIOPSY LEFT Left 03/26/2024 Mammo Us Biopsy Left 03/26/2024 Ana Weber MD [facility] RAD MAMMOGRAPHY SPLENECTOMY Social History Tobacco Use Smoking status: Former Current packs/day: 0.00 Average packs/day: 1 pack/day for 40.0 years (40.0 ttl pk-yrs) Types: Cigarettes Start date: 11/17/1981 Quit date: 11/17/2021 Years since quittin.6 Passive exposure: Past Smokeless tobacco: Never Tobacco comments: Denies vaping Substance Use Topics Alcohol use: Not Currently Social History Substance and Sexual Activity Drug Use Never No Known Allergies Medications: MAR and/or home medications have been reviewed. Physical Exam: Preprocedure Vitals Current as of 07/11/24 1540 BP: 131/59 Pulse: 67 Resp: 18 SpO2: 99 Temp: 36.1 ??C (97 ??F) Height: 166.4 cm (5' 5.5) (07/09/24) Weight: 92.6 kg (204 lb 3.2 oz) (07/09/24) BMI: 33.46 IBW: 58.2 kg (128 lb 4.1 oz) Last edited 07/11/24 1427 by CHANI Currently displaying vitals information from multiple entries within 180 minutes of most recent vitals. Airway Assessment: Mallampati: II TM distance: >3 FB Neck ROM: limited Cardiovascular Assessment: Rhythm: irregular Rate: normal Pulmonary Assessment: (+) wheezes Dental Assessment: Misc Assessment: IV access: Peripheral line Last Filed Perioperative Cognitive Screening None Anesthesia Plan: ASA 3 MAC, with a(n) intravenous induction 58F admitted for n/v/ and RUQ pain requiring EGD EUS. HOspital course c/b JOHN w/ UTI. PMH: -CAD: s/p CRIS x7, Pt denies any chest pain since last stents placement 2 years ago. - s/p TAVR, -PAF on Eliquis -Hodgkin's lymphoma in her 20s s/p mantle radiation therapy -breast cancer planned for upcoming prophylactic bilateral mastectomy -Cervical stenosis s/p fusion with limited neck ROM Echo 05/2024: -Left ventricle is of normal size, wall [...] appears not significantly changed between the studies. NPO appropriate. Anes hx: denies any complications Plan for MAC Region - Other Informed Consent: Anesthetic plan and risks discussed with patient. Plan discussed with WORKERS COMPENSATION PARALEGAL. Anesthesia Screening documented in this encounter Plan of Treatment Upcoming Encounters Date Type Department Care Team (Latest Contact Info) Description 07/30/2024 8:40 AM EST Hospital En[place] [address] Jr Fulton MD [facility] [place] [address] 07/30/2024 8:45 AM EST Appointment Mammography at [place] [address] Jr Fulton MD [facility] [place] [address] 07/30/2024 9:20 AM EST Hospital Encounter Mammography at [address] Jr Fulton MD [facility] [place] [address] 07/30/2024 10:51 AM EST Hospital Encounter Outpatient [place] [address] Jr Fulton MD [facility] [place] [address] 07/30/2024 10:51 AM EST Anesthesia Event Outpatient Surgery Center [place] [address] Megan [place]ron[place] [address] 07/30/2024 10:51 AM EST - 07/30/2024 1:11 PM EST Surgery Outpatient [facility] Center [address] Jr Fulton MD [facility] [place] [address] MASTECTOMY PARTIAL (WRVU 10.13) 08/22/2024 2:00 PM EST Office [place] [address] Cindy Pierce APRN [facility] [place] [address] 08/22/2024 3:00 PM EST Office Visit Hematology [place] [address] Soo Lyn MD [facility] DR MEDICAL [place] [address] 08/27/2024 9:30 AM EST Scheduled View Only Radiation Oncology at [address] [address] Rad Nurse, [facility] 08/27/2024 10:00 AM EST Office Visit Radiation Oncology at [address] [address] Paradise Prado MD [facility] DR [place]IATION [place] [address] 2024 1:00 PM EDT Office Visit Cardiology at [address] [place] [address] Ham Montenegro MD [facility] [place] [address] Scheduled Procedures Name Priority Associated Diagnoses Date/Ti [...] MAR Action Action Date Dose Rate Site lactated ringers infusion 100 mL/hr, Intravenous, CONTINUOUS, Starting on Tue07/11/24 at 1445, Until Tue07/11/24 at 1647, Endoscopy (Day of Procedure) Restarted 07/11/2024 3:40 PM EDT New Bag 07/11/2024 2:56 PM EDT 100 mL/hr 100 mL/hr lidocaine (pf) (Xylocaine) (20 mg/mL) 2% injection syringe Intravenous, PRN, Starting on Tue07/11/24 at 1545, Until Tue07/11/24 at 1559, Anesthesia Intra-op, Routine Given 07/11/2024 3:45 PM EDT 60 mg propofoL (Diprivan) (10 mg/mL) infusion Intravenous, CONTINUOUS PRN, Starting on Tue07/11/24 at 1545, Until Tue07/11/24 at 1559, Anesthesia Intra-op, Routine New Bag 07/11/2024 3:45 PM EDT 150 mcg/kg/min 64.8 mL/hr propofoL (Diprivan) 10 mg/mL bolus injection (Anesthesia) Intravenous, PRN, Starting on Tue07/11/24 at 1545, Until Tue07/11/24 at 1559, Anesthesia Intra-op Given 07/11/2024 3:48 PM EDT 50 mg Given 07/11/2024 3:45 PM EDT 100 mg documented in this encounter Care Teams Golf Course Designer Relationship Specialty Start Date End Date Gaudencio Scales DO [address] [facility] [place] [address] PCP - General Family Medicine 11/28/23 documented as of this encounter
--- OUTSIDE RECORDS SUMMARY | 2024-07-27 12:43 | XMS_ITS | Encounter Summary ---
[facility] [place] [address] Care Team Providers Care Resistor Tester Name Role Phone Gaudencio Scales Primary Care Provider [phone] Encounter Details Date Type Department Care Team (Late st Contact Info) Description 07/12/2024 11:59 PM EDT Anesthesia Event [place] [phone] Megan Orona APR[place] [address] Anesthesia Record Procedure Summary Procedure Name Responsible Anesthesiologist Anesthesia Start Time Anesthesia Stop Time MASTECTOMY, SIMPLE, COMPLETE-QUE (WRVU 15) (Bilateral: Breast) Events No events on file. Meds * [...] BEE Sánchez; Vaccess CT PORT LOT # [id number] 03/23/24 1443 by Grisel Christopher RN documented in this encounter Social History [...] from your doctor or pharmacy? Rarely 05/29/2024 [facility] Utilities Answer Date Recorded In [...] any time in the past 12 m [facility], were you homeless or living in a [...] of this encounter OR Notes * Anesthesia Preprocedure Evaluation - Megan Orona APRN - 06/20/2024 3:36 PM EDT Pre-Anesthesia Evaluation for: Oksana Betancourt a 58 y.o. female. Procedure(s): MASTECTOMY, SIMPLE, COMPLETE-QUE (WRVU 15) BIOPSY OR EXCISION OF LYMPH NODE(S), OPEN, DEEP AXILLARY NODE(S) (WRVU 6.43) INTRAOPERATIVE ID (MAPPING) SENTINEL LYMPH NODE,INCLUDES INJECTION (WRVU 2.5) EXCISION LESION, BREAST W/ PREOP.MARKER (NEEDLE LOC.) (WRVU 6.69) MODIFIER WITH NEEDLE LOC., LESION #1 Patient Active Problem List Diagnosis Date Noted Acute on chronic systolic and diastolic heart failure, NYHA class 2 05/31/2024 Medication management 04/27/2024 Malignant neoplasm of upper-outer quadrant of left breast in female, estrogen receptor negative 02/22/2024 NSTEMI (non-ST elevated myocardial infarction) 11/28/2023 No past medical history on file. Past Surgical History: Procedure Laterality Date IR MEDIPORT PLACEMENT 03/23/2024 IR Mediport Placement 03/23/2024 Cely Schmitt PA [facility] INTERVENTIONL RAD MAMMO US BIOPSY LEFT Left 03/26/2024 Mammo Us Biopsy Left 03/26/2024 Ana Weber MD [facility] RAD MAMMOGRAPHY Social History Tobacco Use Smoking status: Former Current packs/day: 0.00 Average packs/day: 1 pack/day for 40.0 years (40.0 ttl pk-yrs) Types: Cigarettes Start date: 11/17/1981 Quit date: 11/17/2021 Years since quittin.5 Smokeless tobacco: Never Substance Use Topics Alcohol use: Not Currently Social History Substance and Sexual Activity Drug Use Never No Known Allergies Medications: MAR and/or home medications have been reviewed. Physical Exam: Preprocedure Vitals Current as of 06/20/24 1536 No BP, pulse, respiration, SpO2, or temperature recorded. Height: Weight: BMI: IBW: Anesthesia Physical Exam Last Filed Perioperative Cognitive Screening None Anesthesia Plan Anesthesia Screening Note: Date and Time of Entry: 06/20/2024 3:36 PM Entered By: Megan Orona APRN Reason for Evaluation: Surgeon Request Other Reason: Cardiac history Screening Visit Type: Telephone Call Additional/Outside Records Requested? Did not request medical information from outside organization. Findings, Assessment and Plan: 58 y.o. female BMI 37 presenting for pre- anesthesia telephone consultation prior to bilateral mastectomy with Dr. Fulton 07/12/24. MEDICAL HISTORY: #left breast cancer s/p chemotherapy #CAD s/p PCI 2021, NSTEMI 11/2023 s/p angioplasty of ostial LAD and LCX lesion, stent insertion of distal LM lesion: plavix (has never used her nitroglycerin) #HFpEF: TTE 05/2024 EF 57%, torsemide daily #paroxysmal atrial fibrillation: metoprolol, eliquis #severe aortic stenosis s/p TAVR 2021 #HLD: atorvastatin #COPD: reports breathing has been stable since she was discharged from the hospital, no albuterol use in the last week #hypothyroidism: levothyroxine #GERD: well controlled on omeprazole #chronic neck pain: Percocet 10-325mg two to three times daily #bipolar disorder: Lamictal #CKD stage 3 #chronic anemia #Hodgkins lymphoma s/p XRT, s/p resection left neck base and splenectomy Oksana was hospitalized in May after developing SOB during chemotherapy infusion. Treated foracute on chronic CHF, diuresed and discharged 06/05/24. Per discharge summary, interventional cardiology was contacted and okay with patient holding DAPT now that she is 6 months out from PCI. Per note from Dr. Fulton dated 06/12/24, patient's rehanger Dr. Hargrove was contacted and also felt it was reasonable to hold clopidogrel and apixaban for surgery. Activity limited by fatigue. Able to walk short distances, go grocery shopping. Denies chest pain, palpitations, SOB, orthopnea, dizziness or syncope. States she has been weighing herself daily and weights have been stable (213lb). Denies LE edema. Has cardiology follow up 07/02/24. Social History: Tobacco Use: Former smoker, quit 2022, smoked 1ppd for 40 years Alcohol: Denies SURGICAL HISTORY: splenectomy, hysterectomy, neck surgery, cholecystectomy, left ankle surgery ANESTHETIC HISTORY: PONV 30+ years ago, none since Labs reviewed - 06/05/24 Hgb 9.0, platelet 686, creatinine 1.77, K 3.9 Cardiac catheterization 12/02/23 Conclusions: * Obstructive disease of the LM, LAD and LCX * Successful angioplasty of the ostial LAD lesion * Successful stent insertion of the distal LM lesion * Successful angioplasty of the ostial LCX lesion * See Dual Antiplatelet (DAPT) Recommendations above 06/01/24 TTE Interpretation Summary -Left ventricle is of normal [...] appears not significantly changed between the studies. Overall: Oksana Betancourt is a 58 y.o. with left breast cancer scheduled for pre-anesthesia telephone call prior to bilateral mastectomy with Dr. Fulton 07/12/24. PMH includes CAD s/p PCI most recently 11/2023, HFpEF, paroxysmal atrial fibrillation, severe aortic stenosis s/p TAVR, HLD, COPD, hypothyroidism, GERD, chronic neck pain, bipolar disorder, CKD stage 3, chronic anemia and Hodgkins lymphoma. Oksana's activity is limited due to fatigue. We discussed her comorbidities place her at elevatedrisk of complications including the risk of a major adverse cardiovascular event. She reports sincedischarge her weights have been stable and she denies concerning cardiopulmonary symptoms which is r eassuring. No additional testing recommended at this time. Cardiology is okay with Oksana stopping her plavix and eliquis prior to surgery. Breathing has been stable since hospital discharge. She wasadvised to bring her inhaler in with her on day of surgery. We discussed the risks and benefits of anesthesia. All questions answered to the patient's satisfaction. Megan Orona APRN 06/20/24 documented in this encounter Plan of Treatment Upcoming Encounters Date Type Department Care Team (Latest Contact Info) Description 07/30/2024 8:40 AM EST Hospital Encounter Mammography at [place] [phone] Jr Fulton MD [facility] [address] [place] [address] 07/30/2024 8:45 AM EST [place] [phone] Jr Fulton MD [facility] [place] [address] 07/30/2024 9:20 AM EST Hospital [place] [phone] Jr Fulton MD [facility] [place] [address] 07/30/2024 10:51 AM EST Hospital Encounter Outpatient [place] [address] Jr Fulton MD [facility] [place] [address] 07/30/2024 10:51 AM EST Anesthesia Event Outpatient [place] [phone] Megan Oron[place] [address] 07/30/2024 10:51 AM EST - 07/30/2024 1:11 PM EST Surgery [place] [address] Jr Fulton MD [facility] [place] [address] MASTECTOMY PARTIAL (WRVU 10.13) 08/22/2024 2:00 PM EST Office Visit General Surgery at [address] Cindy Pierce APRN [facility] [place] [address] 08/22/2024 3:00 PM EST Office Visit Hematology and Oncology at [place] [phone] Soo Lyn MD [facility] [place] [address] 08/27/2024 9:30 AM EST Scheduled View Only Radiation Oncology at [address] [address] [address] [facility] [place] 08/27/2024 10:00 AM EST Office Visit Radiation Oncology at [address] [address] Paradise Prado MD [facility] [place] [address] 2024 1:00 PM EDT Office Visit Cardiology at [address] [place] [phone] Ham Montenegro MD [facility] [place] [address] Scheduled Procedures Name Priority Associated Diagnoses Date/Ti [...] on filedocumented in this encounter Care Teams Resistor Tester Relationship Specialty Start Date End Date Gaudencio Scales DO [address] [place] [address] PCP - General Family Medicine 11/28/23 documented as of this encounter
--- OUTSIDE RECORDS SUMMARY | 2024-07-27 12:43 | XMS_ITS | Encounter Summary ---
Author Organization [facility] Address [facility] [place] [address] Care Team Providers Care Dry Heat Room Attendant Name Role Phone Loyda Gaudencio Antoine VERGARA Primary Care Provider [phone] Reason for Referral * Consultation (Routine) - Authorized Specialty Diagnoses / Procedures Referred By Contac t Referred To Contact Hematology and Oncology Diagnoses Malignant neoplasm of upper-outer quadrant of left breast in female, estrogen receptor negative Elevated alkaline phosphatase [place] [address] [facility] Hem Onc [address] [place] [address] Referral ID Status Reason Start Date Expiration Date Visits Requested Visits Authorized [id number] Authorized Consult, Test & Treat 07/16/2024 07/16/2025 1 1 * Consultation (Routine) - Authorized Specialty Diagnoses / Procedures Referred By Contac t Referred To Contact Gastroenterology Diagnoses Elevated alkaline phosphatase level Bilious vomiting with nausea Right upper quadrant abdominal [place] [address] [facility] Gastro [address] [place] [address] Referral ID Status Reason Start Date Expiration Date Visits Requested Visits Authorized [id number] Authorized Consult, Test & Treat 07/16/2024 07/16/2025 1 1 * Diagnostic Test (Routine) - Closed Specialty Diagnoses / Procedures Referred By Radha t Referred To Contact Radiology Diagnoses Malignant neoplasm of upper-outer quadrant of left breast in female, estrogen receptor negative Procedures NM PET CT Skull Base to Mid-thigh Sandra Ken MD [facility] [place] [address] [facility] [place] [address] Referral ID Status Reason Start Date Expiration Date V isits Requested Visits Authorized [id number] Closed Specialty Service Requested 07/13/2024 01/11/2026 1 1 * Home Health Care (Routine) - Authorized Specialty Diagnoses / Procedures Referred By Radha t Referred To Contact Diagnoses Malignant neoplasm of upper-outer quadrant of left breast in female, estrogen receptor negative Cardiomyopathy, ischemic Hepatic cirrhosis, unspecified hepatic cirrhosis type, unspecified whether ascites [place] [address] Referral ID Status Reason Start Date Expiration Date Visits Requested Visits Authorized [id number] Authorized Consult, Test & Treat 07/16/2024 01/12/2025 999 999 Reason for Visit * Auth/Cert (Routine) Specialty Diagnoses / Procedures Referred By Radha t Referred To Contact Diagnoses Abdominal pain Obstructive biliary process Procedures EMERGENCY [facility] [address] [facility] Referral ID Status Reason Start Date Expiration Date Visits Re quested Visits Authorized [id number] 1 1 Encounter Details Date Type Department Care Team (Late st Contact Info) Description 07/09/2024 12:45 AM EDT - 07/16/2024 3:33 PM EDT Hospital Encounter Hematology/Oncolog y Unit Level [address] [place] [id number] [place] [address] [place] [address] [place] [address] JONATHAN (acute kidney injury); Malignant neoplasm of upper-outer quadrant of left breast in female, estrogen receptor negative; Cardiomyopathy, ischemic; Elevated alkaline phosphatase level; Bilious vomiting with nausea; Right upper quadrant abdominal pain Discharge Disposition: Home with [facility] Social History Tobacco Use Types Packs/Day Years [...] doctor or pharmacy? Rarely 05/29/2024 [facility] Utilities Answer Date Recorded In the past 12 months has e [employer], gas, oil, or water [employer] threatened to shut off services in your [...] place to sleep or slept in a snf (including now)? No 11/29/2023 Housing Stability Vital [...] were you homeless or living in a snf (including now)? No 07/09/2024 [facility] IPV Inpatient [...] on file documented as of this encounter Last Filed Vital Signs Vital Sign Reading [...] Mass Index 35.8 07/16/2024 4:19 AM EDT documented in this encounter Discharge Summaries * Charles Berry MD - 07/16/2024 2:21 PM EDT Images from the original note were not included. Discharge Summary Patient Name: Oksana Betancourt Patient Age: 58 y.o. Language: Djiboutian Race: Choose not to Disclose Ethnicity: Choose not to Disclose Admit date: 07/09/2024 Discharge date and time: 07/16/2024 2:37 PM Attending Physician: Charles Berry MD Discharge Physician: Charles Berry MD Follow-up Recommendations for Providers: -Will require outpatient imaging of sclerotic clavicular lesion with PET-CT, as well as MRI adrenalmass protocol in & out of phase imaging for workup of small bilateral adrenal masses -Continue Ursodiol 300 mg BID with goal to uptitrate to 13-15 mg/kg total daily dose. Follow up ALPwhile on ursodiol. -Outpatient follow-up with: Oncology, Gastroenterology, Surgery Inpatient Provider Contact Information: For questions regarding this document or issues relating to this hospitalization on the Medical Service, please contact your inpatient physician through the [facility] [place] [employer] . Issues afterhours and on weekends will be handled by the Hospitalist staff on-call. Discharge Diagnoses (Hospital Problems) and Secondary Diagnoses (Chronic Problems): Active Hospital Problems Diagnosis Abdominal pain Severe protein-calorie malnutrition Bilious vomiting with nausea Gastroesophageal reflux Hypothyroidism Elevated alkaline phosphatase level JONATHAN (acute kidney injury) Cardiomyopathy, ischemic PAF (paroxysmal atrial fibrillation) ASCVD (arteriosclerotic cardiovascular disease) Nonrheumatic aortic valve stenosis Resolved Hospital Problems No resolved problems to display. Active Non-Hospital Problems Diagnosis Malignant neoplasm of upper-outer quadrant of left breast in female, estrogen receptor negative Operations/Major Procedures: Operations: Procedure(s): UPPER EUS- ENDOSCOPIC ULTRASOUND (WRVU 3.47) 07/11/2024 Other Major Procedures: NA History of Presentation: 58-year-old female with past medical history of triple-negative breast cancer with known mets to 1 axillary lymph node planned for prophylactic bilateral mastectomy, Hodgkin's lymphoma in her 20s s/pmantle radiation therapy, CAD s/p CRIS x7, aortic valve stenosis s/p replacement, hypothyroidism, and PAF on Eliquis, who presented as transfer from OSH with nausea, vomiting and RUQ pain. Patient transferred for GI evaluation and treatment of possible obstructive biliary process and JONATHAN. She reported nausea that on 07/04. Stated she had been unable to eat or drink anything since symptom onset andon 07/07, she developed RUQ pain. She described the pain as waxing and waning, nagging in qualityand rated it a 5/10 in intensity . Associated sxms included emesis ~ 10 times and fatigue. She denied diarrhea, constipation, fevers, chills hematemesis, or coffee ground emesis Hospital Course By Problem List: 58 y.o. female with PMH significant for ASCVD s/p CRIS x7, AV stenosis s/p replacement, hypothyroidism, PAF on Eliquis, hx of Hodgkin's lymphoma in her 20s s/p mantle radiation therapy, and triple negative breast cancer with known met to [address] planned for upcoming prophylactic bilateral mastectomy admitted for evaluation of RUQ pain and elevated alkaline phosphatase/GGT. Completed treatment for E. Faecium UTI. Had JONATHAN that resolved with IVF and holding torsemide. #RUQ pain #Elevated alk phos/GGT On admission, Alk phos 2558, GGT 2038. RUQUS showed CBD measuring 1 cm, no evidence of obstruction or choledocholithiasis, atrophic right kidney. MRCP with bile duct ectasia with CBD measuring up to [address] evident choledocholithiasis. EUS without significant pathology. Autoimmune labs with neg ative antimitochondrial antibody, anti-smooth muscle antibody, anti-liver/kidney microsome type 1 antibody. Patient had persistent elevations in Alk phos so was started on Ursodiol 300 mg BID. IgG4 pending. -GI follow up #JONATHAN-resolved #E faecium UTI, simple cystitis-resolved Creatinine at OSH 5.7 > 1.65 on discharge. Nephrology consulted and suspected ATN secondary to dehydration/vomiting. Retroperitoneal ultrasound without hydronephrosis. Patient completed 5 days of Vancomycin IV for E. Faecium UTI. #ASCVD with h/o W[place] and PCI #Non-rheumatic aortic valve stenosis - S/p Edd 2021 #Ischemic cardiomyopathy Continued plavix. Torsemide restarted once JONATHAN resolved. Suggest continuing every other day. Instructed to take daily if weight increases 2lbs in one day. #Bipolar disorder Continued lamictal, seroquel #Hypothyroidism Continued home synthroid #GERD Continued home PPI #PAF Home Apixaban resumed following EUS. Continued home metoprolol. #Malignant neoplasm of upper-outer quadrant of left breast in female, estrogen receptor negative - Follows with Dr. Prater #Sclerosis of mid left clavicle on CXR #Small bilateral adrenal nodules Oncology recommended follow-up of sclerotic lesion with PET/CT in outpatient setting. Also recommended MRI adrenal mass protocol in and out of phase imaging outpatient for workup of small bilateral adrenal nodules. Bilateral mastectomy with Dr. Fulton was rescheduled. Vital Signs at Discharge: BP: 142/63, Heart Rate: 67, Temp: 36.5 ??C (97.7 ??F), Resp: 18, BMI (Calculated): 35.8 Height: 161 cm (5' 3.39) (07/16/24418) Weight: 92.8 kg (204 lb 9.4 oz) (07/16/24418) Functional and Cognitive Status: Normal Important Studies and Lab Data: Labs: Recent Labs 07/16/2443507/15/2432207/14/24 0018 WBC 9.36 8.05 8.50 HGB 8.8* 8.4* 8.4* PLATELET 325 317 306 Recent Labs 07/16/2443507/15/2432207/14/24 0018 NA 140 139 138 K 4.3 3.9 3.7 CL 101 98 96* CO2 26 26 30 BUN 22* 22* 24* CREATININE 1.65* 1.80* 2.09* Recent Labs 07/16/24 0436 07/15/24 0323 07/14/24 0018 07/13/24 0410 07/12/24 0410 CALCIUM 10.0 9.6 9.3 9.5 8.9 PHOS -- -- 3.0 3.0 2.8 Recent Labs 07/16/24 0436 07/15/24 0323 07/14/24 0018 AST 207* 201* 202* ALT 99* 93* 89* ALKPHOS 2,834* 2,850* 2,893* BILITOT 1.4* 1.3 1.2 No results for input(s): TROPONINT, CK in the last 168 hours. No results for input(s): PHART, DEY9NRS, PO2ART, JOK2CZU in the last 168 hours. Pending Studies and Lab Data: SPEP, IgG4 Discharge Conditions/Prognosis: Hemodynamically stable, on room air, not in any pain Discharge to: Home Updated Allergies/ADRs: No Known Allergies Immunizations Given this Hospitalization: Immunization History Administered Date(s) Administered Influenza Vaccine, Whole 08/03/2005 Pneumococcal 23-Valent Polysaccharide (Pneumovax 23) 11/08/2006 Discharge Medications: Your Medications New Medications Dose Details senna-docusate 8.6-50 mg Tablet Commonly known as: Pericolace Take 2 tablets by mouth 2 times daily as needed for Constipation. 2 tablet Quantity: 30 tablet Refills: 3 ursodioL 300 mg capsule Commonly known as: Actigall Take 1 capsule by mouth 2 times daily (with meals). 300 mg Quantity: 60 tablet Refills: 0 Continued medications with new dosing Dose Details torsemide 20 mg tablet Commonly known as: Demadex Take 1 tablet by mouth every other day. If you gain 2lbs in one day, take daily What changed: when to take this additional instructions 20 mg Refills: 0 Continued medications, unchanged Dose Details atorvastatin 80 mg tablet Commonly known as: Lipitor Take 1 tablet by mouth Daily at Noon. 80 mg Quantity: 90 tablet Refills: 3 clopidogreL 75 mg tablet Commonly known as: Plavix Take 1 tablet by mouth daily. 75 mg Quantity: 90 tablet Refills: 3 diclofenac 1 % Gel Commonly known as: Voltaren Apply 2 g topically 2 times daily. 2 g Quantity: 200 g Refills: 1 Eliquis 5 mg tablet Take 5 mg by mouth 2 times daily. Generic drug: apixaban 5 mg Refills: 0 fish oil-omega-3 fatty acids 1,000 mg capsule Commonly known as: Fish Oil Take 2 g by mouth daily. 2 g Refills: 0 ipratropium-albuteroL 0.5 mg-3 mg(2.5 mg base)/3 mL Solution for Nebulization Commonly known as: Duoneb Take 0.5 mg by nebulization every 4 hours. 3 mL Quantity: 1 each Refills: 4 IRON 100 PLUS ORAL Take by mouth. Refills: 0 lamoTRIgine 100 mg tablet Commonly known as: LaMICtal Take 1 tablet by mouth 2 times daily. 1 tablet Refills: 0 levothyroxine 100 mcg tablet Commonly known as: Synthroid Take 100 mcg by mouth. 100 mcg Refills: 0 lidocaine 2 % Solution Commonly known as: Xylocaine Take 1-2 mLs by mouth as needed for Pain (Please drapery counselor patient on equal parts benadryl and Maalox.). 1-2 mL Quantity: 100 mL Refills: 1 zzsjetzqs-lfgubxxve-au-mag-sim [phone] mg/30 mL Suspension Take 20-30 mLs by mouth every 4 hours as needed. 20-30 mL Quantity: 240 mL Refills: 3 metoprolol succinate XL 50 mg ER 24 hr tablet Commonly known as: Toprol-XL Take 1 tablet by mouth 2 times daily. 50 mg Quantity: 30 tablet Refills: 12 multivitamin Tablet Commonly known as: THERAGRAN Take 1 tablet by mouth daily. 1 tablet Refills: 0 nitroGLYcerin 0.4 mg sublingual tablet Commonly known as: Nitrostat Place 1 tablet under the tongue every 5 minutes as needed for Chest pain. 0.4 mg Quantity: 90 tablet Refills: [address] capsule Commonly known as: PriLOSEC 20M Capsule(s), PO, Once daily Refills: 0 ondansetron 8 mg tablet Commonly known as: Zofran Take 1 tablet by mouth every 8 hours as needed for Nausea. 8 mg Quantity: 60 tablet Refills: 0 oxyCODONE-acetaminophen 10-325 mg tablet Commonly known as: Percocet Take 1 tablet by mouth every 8 hours as needed. 1 tablet Refills: 0 * QUEtiapine 100 mg tablet Commonly known as: Seroquel Take 100 mg by mouth nightly. 100 mg Refills: 0 * QUEtiapine 50 mg tablet Commonly known as: Seroquel TAKE ONE TABLET BY MOUTH EVERY NIGHT IN ADDITION TO 100MG TABLET. MAY TAKE UP TO 200MG AT BEDTIME IF NEEDED FOR SLEEP Quantity: 60 tablet Refills: 0 * This list has 2 medication(s) that are the same as other medications prescribed for you. Read thedirections carefully, and ask your doctor or other care provider to review them with you. STOPPED Medications baclofen 10 mg tablet Commonly known as: Lioresal Smoking Status at Discharge: Social History Tobacco Use Smoking Status Former Current packs/day: 0.00 Average packs/day: 1 pack/day for 40.0 years (40.0 ttl pk-yrs) Types: Cigarettes Start date: 11/17/1981 Quit date: 11/17/2021 Years since quittin.6 Passive exposure: Past Smokeless Tobacco Never Tobacco Comments Denies vaping Instructions Given to Patient at Discharge: Patient Instructions Patient Instructions on Discharge to Home Why you were hospitalized - You were admitted to [facility] on 07/09/24 for abdominal pain, nausea, and vomiting that was concerning for a possible obstruction in your abdomen. An ultrasound of your right upper abdomen did not show any gallstones that could be causing a blockage. You had an MRCP, a special type of MRI that looks at the biliary and pancreatic systems, which also did not show any blockages. An endoscopic ultrasound (EUS) did not show any acute findings inyour GI tract or nearby organs. Your alkaline phosphatase, an enzyme found in many parts of your body, including liver, bones, kidneys, and digestive system, remained elevated despite negative imaging. Therefore, you were started on Ursodiol. On admission, you were found to have a urinary tract infection. This was treated with 5 days of intravenous Vancomycin. You were seen by Hematology/Oncology, who recommend you follow with them outpatient for additional imaging given your history of cancer. You were also seen by Nephrology to monitor your kidney function and ensure your kidneys recovered appropriately. Your surgeons were informed of your admission and they rescheduled your bilateral mastectomy until you were more stable for surgery. Call your doctor or seek medical attention if you develop the following - chest pain, shortness of breath, passing out, feeling dizzy upon standing, passing out, diarrhea, constipation lasting longerthan 2 days, fevers (temperature over 100.3), chills, abdominal pain, vomiting, difficulty or discomfort when urinating, bloody or black bowel movements, or any other acute or concerning symptom. Activity level - as tolerated Diet - as tolerated Driving - no restrictions Shower/Bath - no restrictions Wound Care - NA Home Oxygen Therapy - NA Medication Changes - New Medications: Ursodiol 300 mg by mouth two times daily Stop these Medications: Medications with new dose: Other Important Instructions: Follow-up with your PCP upon discharge Follow-up with Hematology/Oncology for additional outpatient imaging Follow-up with Gastroenterology Follow-up with your surgeon, Dr. Fulton Follow-up Appointments Future Appointments Date Time Provider Department Center 07/26/2024 2:00 PM Nicole Llanes OT OT [facility] [place] [place] 07/30/2024 3:40 PM Ham Montenegro MD [facility] Cardio [facility] 08/06/2024 8:30 AM [facility] NM PET HOLD MH Nuc Med [facility] Rad 08/06/2024 9:30 AM [facility] NM PET 1 MH Nuc Med [facility] Rad 2024 1:00 PM Ham Montenegro MD [facility] Your Inpatient Medical Team at [facility] [place] [place] Name(s) of your inpatient provider(s): MD Charles Daniels MD For questions regarding issues relating to your hospitalization on the Hospital Medicine Service, please contact your inpatient physician through the [facility] [place] [place] [employer] [phone]. Issues after hours and on weekends will be handled by the Hospitalist staff on-call. Your Primary Care Provider Gaudencio Scales DO [phone] General Instructions Endoscopic Ultrasound (Oral): What to Expect At Home Your Recovery After you have an endoscopic ultrasound--a test to look for problems in the stomach, liver, gallbladder, and other organs--you will stay at the hospital or clinic for 1 to 2 hours. This will allow the medicine to wear off. You will be able to go home after your doctor or nurse checks to make sure you are not having any problems. You may have a sore throat for a day or two after the test. This care sheet gives you a general idea about what to expect after the test. How can you care for yourself at home? Activity Rest when you feel tired. You can do your normal activities when it feels okay to do so. Diet Follow your doctor's directions for eating. Unless your doctor has told you not to, drink plenty of fluids. Do not drink alcohol. Medicines Your doctor will tell you if and when you can restart your medicines. He or she will also give you instructions about taking any new medicines. If you take blood thinners, such as warfarin (Coumadin), clopidogrel (Plavix), or aspirin, be sure to talk to your doctor. He or she will tell you if and when to start taking those medicines again. Make sure that you understand exactly what your doctor wants you to do. If a biopsy was done during the test, your doctor may tell you not to take aspirin or other anti-inflammatory medicines for a few days. These include ibuprofen (Advil, Motrin) and naproxen (Aleve). If you have a sore throat the day after the procedure, use an fwwo-wiu-tgorupg spray to numb your throat. Sucking on throat lozenges and gargling with warm salt water may also help relieve your symptoms. Other instructions For your safety, do not drive or operate machinery until the medicine wears off and you can think clearly. Your doctor may tell you not to drive or operate machinery until the day after your test. Do not sign legal documents or make major decisions until the medicine wears off and you can think clearly. The anesthesia can make it hard for you to fully understand what you are agreeing to. Additional Information for Sedation Patients For patients who received sedation: You may have received medications before and/or during your procedure which effects your judgement and reaction time. Do not drive, operate machinery, drink alcoholic beverages or make important decisions for 24 hours. Be careful on stairs as you may be unsteady on your feet. You may eat a regular diet as tolerated. Do not smoke if you are alone. IV site: Slight redness or tenderness is normal, you can use a warm compress if you would like. If tenderness and/or redness increase or if foul drainage occurs, please contact your Doctor. Please call [phone] before 8pm Mon-Fri with problems, questions or concerns. If you call after 8pm or on weekends, call the Hospital at [phone] and ask to speak to the [employer] hotel front desk clerk and the scoring machine operator will contact that person for you. When should you call for help? Call 911 anytime you think you may need emergency care. For example, call if: You passed out (lost consciousness). You pass maroon or bloody stools. You have trouble breathing. Call your doctor now or seek immediate medical care if: You have pain that does not get better after you take pain medicine. You are sick to your stomach or cannot drink fluids. You have new or worse belly pain. You have blood in your stools. You have a fever. You cannot pass stools or gas. Watch closely for changes in your health, and be sure to contact your doctor if you have any problems. Where can you learn more? [facility] View your After Visit Summary and more online at [email or web address] If you would like to provide feedback about your hospital experience, please call the Office of Patient and Family Relations at . If you have received this After Visit Summary in error, please immediately return it in person to the department, or notify the [facility] Privacy Office by calling toll free at between the hours of 8AM and 5PM to arrange for our retrieval of the documents at no cost to you. Content Version: 12.2 ?? [id number] [employer]. Care instructions adapted under license by [facility]. If you have questions about a medical condition or this instruction, always ask your healthcare professional. [employer] disclaims any warranty or liability for your use of this information. Future Appointments and Orders Future Appointments and Orders Future Appointments Provider Department Dept Phone 07/30/2024 3:40 PM Ham Montenegro MD Cardiology at [place] Arrive at: [facility] [address] [phone] 08/06/2024 8:30 AM [facility] NM PET HOLD Nuclear Medicine at [facility] Arrive at: [address] [employer] [address] Area [phone] 08/06/2024 9:30 AM [facility] NM PET 1 Nuclear Medicine at [facility] Arrive at: [address] [address] Area [phone] 2024 1:00 PM Ham Montenegro MD Cardiology at [place] Arrive at: [facility] [address] [phone] Future Orders Complete By Expires NM PET CT Skull Base to Mid-thigh [NO CPT CODE Custom] 07/20/2024 (Approximate) 01/19/2025 Process Instructions: Scheduling Instructions: Comments: Questions: Where will study be performed?: [facility] Radiology To be scheduled: Ordering department to coordinate scheduling Reason for exam and clinical history: 58F with sclerotic lesion of clavicle in setting of biopsy proven TNBC Site of suspected/known cancer being imaged if not listed in the clinical information/parra questionssection: Is this for initial or subsequent treatment?: Initial (diagnosis/staging) Stat read required?: Does patient require sedation?: Initial treatment or subsequent treatment?: Referral to Gastroenterology [REF25 Custom] As directed Process Instructions: If requesting a colonoscopy please use [id number] REFERRAL TO COLONOSCOPY PROCEDURE. This referral request is for evaluation and treatment of gastrointestinal health concerns. Scheduling Instructions: Questions: My question or request is: On ursodiol for recent hospitalization for RUQ pain and elevated ALP. recheck ALP and follow. Referral to Hematology and Oncology [REF33 Custom] As directed Process Instructions: If no progress note charted, please enter Clinical details in comments. Scheduling Instructions: Questions: Referring to Hemophilia/thrombosis Clinic?: My question or request is: post hospitalization follow up. Needs MRI adrenal and PET scan. Mastectomy on hold pending results. Referral to Home Health [REF34 Custom] As directed Process Instructions: If no progress note charted, please enter Clinical details in comments. Scheduling Instructions: Comments: Please evaluate Oksana Betancourt for admission to Home Health. [address] [place] [phone] (home) Date of : 1965 Outpatient Person to contact: Patient Patient is aware of referral: yes Referring Provider Call-back Physician to follow (the person listed here will be responsible for signing ongoing orders): PCP Requested Start of Care Date: Within 2-3 days Special Instructions: RN PT I attest that I or another qualified licensed provider saw Oksana Betancourt 90 days prior to or 30 days post admission and this face to face encounter meets the necessary Home Health requirements. The face to face encounter occurred on 07/09/24. In discussion with the attending physician, it is certified that the clinical findings support thatthis patient is homebound because absences from home require considerable and taxing effort due to:Medically contraindicated due to immunosuppression and increased risk of infection. DOCUMENTATION FOR VNA SERVICES (INCLUDING THOSE PATIENTS WITH MEDICARE COVERAGE REQUIRING HOME VNA SERVICES AND/OR HOSPICE SERVICES) PATIENT'S LOCATION: Oksana Betancourt [address] [place] [phone] (home) Cell: Telephone Information: Corporate Human Resources Manager's Name: Oksana In discussion with the attending physician, it is certified that this patient is under their care and that they, or a Nurse Practitioner, Clinical Nurse specialist or Physician Sales Enablement Lead who is working directly with them, had a face to face encounter that meets the physician face to face encounter requirements with this patient on 07/09/24 The encounter with the patient was in whole, or in part, for the following medical condition, whichis the primary reason for home health care services: cirrhosis, fluid overload, cancer In discussion with the provider, it is certified that, based on their findings, the following services are medically necessary for home health services. To provide the following care/treatments with the clinical findings supporting the need for services as follows: HOME CARE ORDERS: RN ORDERS: Assess vital signs, cardiopulmonary status, nutrition, hydration, elimination -Additional Orders: Monitor medication effectiveness and management and Reinforce education regarding health issues PT ORDERS: Continue rehab for endurance, gait stability and strength with mobility and transfers. Home safety evaluation. Home exercise program if appropriate. OT ORDERS: Assess and continue rehab for managing ADLs. Home Health Aide: Assist with personal care activities, ie. dressing/bathing HOME HEALTH CARE AGENCY: [facility]. [address] [place] [id number] START OF CARE: within 24-48 hours of discharge In discussion with the attending physician, it is certified that the clinical findings support thatthis patient is homebound because absences from home require considerable and taxing effort due to:Medically contraindicated due to immunosuppression and increased risk of infection. Please note that any additional orders needs or changes will need to be obtained from this patient's PCP: DO Jagdeep NavaY [address] / [facility] [id number] . All VNA agencies which cover the area of patient's residence have been reviewed, either verbally or in writing, and patient/family have chosen the home health care agency noted. Questions: Disciplines Requested: Physical Therapy Nursing Discharge References/Attachments None documented in this encounter Discharge Instructions * Discharge Instructions* Tresa Rodriguez RN - 07/11/2024 4:02 PM EDT Endoscopic Ultrasound (Oral): What to Expect At Home Your Recovery After you have an endoscopic ultrasound--a test to look for problems in the stomach, liver, gallbladder, and other organs--you will stay at the hospital or clinic for 1 to 2 hours. This will allow the medicine to wear off. You will be able to go home after your doctor or nurse checks to make sure you are not having any problems. You may have a sore throat for a day or two after the test. This care sheet gives you a general idea about what to expect after the test. How can you care for yourself at home? Activity Rest when you feel tired. You can do your normal activities when it feels okay to do so. Diet Follow your doctor's directions for eating. Unless your doctor has told you not to, drink plenty of fluids. Do not drink alcohol. Medicines Your doctor will tell you if and when you can restart your medicines. He or she will also give you instructions about taking any new medicines. If you take blood thinners, such as warfarin (Coumadin), clopidogrel (Plavix), or aspirin, be sure to talk to your doctor. He or she will tell you if and when to start taking those medicines again. Make sure that you understand exactly what your doctor wants you to do. If a biopsy was done during the test, your doctor may tell you not to take aspirin or other anti-inflammatory medicines for a few days. These include ibuprofen (Advil, Motrin) and naproxen (Aleve). If you have a sore throat the day after the procedure, use an ednz-qia-czhqrkf spray to numb your throat. Sucking on throat lozenges and gargling with warm salt water may also help relieve your symptoms. Other instructions For your safety, do not drive or operate machinery until the medicine wears off and you can think clearly. Your doctor may tell you not to drive or operate machinery until the day after your test. Do not sign legal documents or make major decisions until the medicine wears off and you can think clearly. The anesthesia can make it hard for you to fully understand what you are agreeing to. Additional Information for Sedation Patients For patients who received sedation: You may have received medications before and/or during your procedure which effects your judgement and reaction time. Do not drive, operate machinery, drink alcoholic beverages or make important decisions for 24 hours. Be careful on stairs as you may be unsteady on your feet. You may eat a regular diet as tolerated. Do not smoke if you are alone. IV site: Slight redness or tenderness is normal, you can use a warm compress if you would like. If tenderness and/or redness increase or if foul drainage occurs, please contact your Doctor. Please call [phone] before 8pm Mon-Fri with problems, questions or concerns. If you call after 8pm or on weekends, call the Hospital at [phone] and ask to speak to the [employer] hotel front desk clerk and the scoring machine operator will contact that person for you. When should you call for help? Call [phone] anytime you think you may need emergency care. For example, call if: You passed out (lost consciousness). You pass maroon or bloody stools. You have trouble breathing. Call your doctor now or seek immediate medical care if: You have pain that does not get better after you take pain medicine. You are sick to your stomach or cannot drink fluids. You have new or worse belly pain. You have blood in your stools. You have a fever. You cannot pass stools or gas. Watch closely for changes in your health, and be sure to contact your doctor if you have any problems. Where can you learn more? [facility] View your After Visit Summary and more online at [email or web address] If you would like to provide feedback about your hospital experience, please call the Office of Patient and Family Relations at . If you have received this After Visit Summary in error, please immediately return it in person to the department, or notify the [facility] Privacy Office by calling toll free at between the hours of 8AM and 5PM to arrange for our retrieval of the documents at no cost to you. Content Version: 12.2 ?? [id number] [employer]. Care instructions adapted under license by [facility]. If you have questions about a medical condition or this instruction, always ask your healthcare professional. [employer] disclaims any warranty or liability for your use of this information. * Patient Instructions* Leidy Fong - 07/14/2024 3:06 PM EDT Patient Instructions on Discharge to Home Why you were hospitalized - You were admitted to [facility] on 07/09/24 for abdominal pain, nausea, and vomiting that was concerning for a possible obstruction in your abdomen. An ultrasound of your right upper abdomen did not show any gallstones that could be causing a blockage. You had an MRCP, a special type of MRI that looks at the biliary and pancreatic systems, which also did not show any blockages. An endoscopic ultrasound (EUS) did not show any acute findings inyour GI tract or nearby organs. Your alkaline phosphatase, an enzyme found in many parts of your body, including liver, bones, kidneys, and digestive system, remained elevated despite negative imaging. Therefore, you were started on Ursodiol. On admission, you were found to have a urinary tract infection. This was treated with 5 days of intravenous Vancomycin. You were seen by Hematology/Oncology, who recommend you follow with them outpatient for additional imaging given your history of cancer. You were also seen by Nephrology to monitor your kidney function and ensure your kidneys recovered appropriately. Your surgeons were informed of your admission and they rescheduled your bilateral mastectomy until you were more stable for surgery. Call your doctor or seek medical attention if you develop the following - chest pain, shortness of breath, passing out, feeling dizzy upon standing, passing out, diarrhea, constipation lasting longerthan 2 days, fevers (temperature over 100.3), chills, abdominal pain, vomiting, difficulty or discomfort when urinating, bloody or black bowel movements, or any other acute or concerning symptom. Activity level - as tolerated Diet - as tolerated Driving - no restrictions Shower/Bath - no restrictions Wound Care - NA Home Oxygen Therapy - NA Medication Changes - New Medications: Ursodiol 300 mg by mouth two times daily Stop these Medications: Medications with new dose: Other Important Instructions: Follow-up with your PCP upon discharge Follow-up with Hematology/Oncology for additional outpatient imaging Follow-up with Gastroenterology Follow-up with your surgeon, Dr. Fulton Follow-up Appointments Future Appointments Date Time Provider Department Center 07/26/2024 2:00 PM Nicole Llanes, OT OT [facility] [place] [place] 07/30/2024 3:40 PM Ham Montenegro MD [facility] 08/06/2024 8:30 AM [facility] NM PET HOLD MH Nuc Med [facility] Rad 08/06/2024 9:30 AM [facility] NM PET 1 MH Nuc Med [facility] Rad 2024 1:00 PM Ham Montenegro MD [facility] Your Inpatient Medical Team at [facility] [place] [place] Name(s) of your inpatient provider(s): MD Charles Daniels MD For questions regarding issues relating to your hospitalization on the Hospital Medicine Service, please contact your inpatient physician through the [facility] [place] [place] [employer] [phone]. Issues after hours and on weekends will be handled by the Hospitalist staff on-call. Your Primary Care Provider Gaudencio Scales DO [phone] documented in this encounter Medications at Time of Discharge [...] by mouth as needed for Pain (Please drapery counselor patient on equal parts benadryl and [...] 05/11/2024 07/25/2024 documented as of this encounter Progress Notes * Tammi Grimaldo RN - 07/16/2024 3:32 PM EDT Illness Severity Stable Patient Summary Reason for admission: Abdominal pain, N/V Relevant PMH: Breast cancer on chemo, CAD s/p CRIS x 7, CHF, aortic valve stenosis s/p replacement, hypothyroidism, paroxysmal A-fib on Eliquis Significant 24 hour events: 07/15 PM: A&Ox4. VSS on RA. Endorsing 7/10 neck pain, heat packs and PRN oxy given x1 with goodeffect. No BM yet, declined PRN bowel meds. Mild nausea, declined Zofran. Resting between care. 07/16 AM: Pt A&O*4. VSS on RA. PRN oxycodone given x1 for 7/10 neck/back pain. Voiding adequately. Large BM this shift. Denies nausea or SOB this shift. Discharge orders placed and ride arranged for patient. Port de-accessed and PIV removed. AVS and verbal discharge instruction given to patient. Pt left unit in stable condition via wheelchair with [facility] at 1453. Most recent weight: Weight: 92.8 kg (204 lb 9.4 oz) (07/16/24 0734) Neuro: WDL CV: WDL Telemetry: No Neurovasc: .WDL except, edema VTE Prophylaxis: anticoagulant therapy (eliquis) Pulmonary: WDL O2 Device: None (Room air) GI: WDL LBM: 07/16/24 : WDL Bladder Scan/SC: Q shift Musculoskeletal: .WDL except, mobility Pain/Location: 2 (07/16/241309) / neck (07/15/241956) Mobility Plan: IND/SBA Bed alarm sensitivity: refused Skin: .WDL except, characteristics Psych/Social: * Charles Berry MD - 07/16/2024 2:31 PM EDT Hospital Medicine - Attending Day of Discharge Documentation Discharge diagnosis Active Hospital Problems Diagnosis Abdominal pain Severe protein-calorie malnutrition Bilious vomiting with nausea Gastroesophageal reflux Hypothyroidism Elevated alkaline phosphatase level JONATHAN (acute kidney injury) Cardiomyopathy, ischemic PAF (paroxysmal atrial fibrillation) ASCVD (arteriosclerotic cardiovascular disease) Nonrheumatic aortic valve stenosis Resolved Hospital Problems No resolved problems to display. Secondary Issues Active Non-Hospital Problems Diagnosis Malignant neoplasm of upper-outer quadrant of left breast in female, estrogen receptor negative I have personally seen and examined the patient and they are ready for discharge. Select the appropriate statement that describes your involvement and care and omit the other: I spent >30 minutes (Day of Discharge Code 95636) involved in the final examination of the patient, discussion of the hospital stay, instructions for continuing care to all relevant caregivers, and preparation of discharge records, prescriptions and referral forms. Plans Discharge to home Follow-up scheduled with GI, ONC, Gen surgery Please see the Discharge Summary for complete details of any medication changes and additional plans. * Ehsan Manley RN - 07/16/2024 11:06 AM EDT Images from the original note were not included. During VAS Purposeful Rounding, an assessment of your patient's venous access was performed fby theVascular Access Service. The following tasks were performed if needed and communicated to the bedside RN Choose all that apply: [x] PIV(s) checked for patency if daily need for flush needs to be performed [x] CVAD was checked for patency if daily flush needs to be performed [x] IV tubing clamped or capped if needed [x] Visual inspection of your patient's central line dressing integrity [x] Review of indications for vascular access [x] A photo was taken of your patient's central line [x] Visual inspection of your patient's IV dressing integrity [] Other While rounding an intervention was needed and communicated to the bedside RN Choose all that apply: [] Nonocclusive IV dressing addressed [] Nonocclusive CVAD dressing (please identify type of line) [] Infusion site leaking [] IV not patent and removed [] IV not indicated [] IV placed [] IV restarted [] Implanted Port, PICC or ML dressing changed if needed (either PRN or weekly) [] Other * Ligia Lopez RN - 07/16/2024 7:23 AM EDT Patient Summary Reason for admission: Abdominal pain, N/V Relevant PMH: Breast cancer on chemo, CAD s/p CRIS x 7, CHF, aortic valve stenosis s/p replacement, hypothyroidism, paroxysmal A-fib on Eliquis Significant 24 hour events: 07/15 PM: A&Ox4. VSS on RA. Endorsing 03/28 neck pain, heat packs and PRN oxy given x1 with goodeffect. No BM yet, declined PRN bowel meds. Mild nausea, declined Zofran. Resting between care. Most recent weight: Weight: 92.8 kg (204 lb 9.4 oz) (07/16/24 2294) Action List Trend LFTs PRN MoM Discharge Plan: Monday 07/16 * Tammi Grimaldo RN - 07/15/2024 6:42 PM EDT Illness Severity Stable Patient Summary Reason for admission: Abdominal pain, N/V Relevant PMH: Breast cancer on chemo, CAD s/p CRIS x 7, CHF, aortic valve stenosis s/p replacement, hypothyroidism, paroxysmal A-fib on Eliquis Significant 24 hour events: 07/14 AM: A&Ox4. VSS on RA. OOB to bathroom independently. Pt c/o 6/10 neck pain PRN oxycodone 10mg given x1. Voiding adequate amt concentrated urine spontaneously, sample sent to nephrology per order. Endorses constipation, had previously declined scheduled miralax but accepted it today along with scheduled Pericolace, no BM yet. Resting between care. 07/14PM: VSS on RA with 7/10 pain. Pt still not having BM despite bowel medications. Scheduled medications given, no complaints or concerns at this time. 07/15 AM: Pt A&*O*4. VSS on RA. 6/10 pain to neck/back. PRN oxycodone given x1. Voiding adequately. No BM this shift. PRN milk of magnesium given without response. Pt declining suppository and enema. Magnesium citrate ordered and administered. Pt vomited 30 min after receiving dose. Zofran administered. Most recent weight: Weight: 93 kg (205 lb) (07/15/24 0443) Neuro: WDL CV: WDL Telemetry: No Neurovasc: .WDL except VTE Prophylaxis: anticoagulant therapy (eliquis) Pulmonary: WDL O2 Device: None (Room air) GI: .WDL except, GI symptoms LBM: 07/11/24 : WDL Bladder Scan/SC: Q shift Musculoskeletal: .WDL except Pain/Location: 3 (07/15/24 1345) / neck, abdomen (07/14/24 0827) Mobility Plan: IND/SBA Bed alarm sensitivity: refused Skin: .WDL except Psych/Social: Action List Trend LFTs IV vanco (last dose tonight) Arrange for transportation tomorrow PRN MoM Discharge Plan: Tomorrow * Charles Berry MD - 07/15/2024 11:06 AM EDT Images from the original note were not included. Hospital Medicine Progress Note Patient info: Name: Oksana Betancourt : 1965 PCP: Gaudencio Scales DO PCP phone number: [phone] Date of Admission: 07/09/2024 ( Hospital Day 6 days ) Attending:Charles Berry MD ID: Oksana Betancourt is a 58 y.o. female with PMH significant for ASCVD s/p CRIS x7, AV stenosis s/preplacement, hypothyroidism, PAF on Eliquis, hx of Hodgkin's lymphoma in her 20s s/p mantle radiation therapy, and triple negative breast cancer with known met to [address] planned for upcoming prophylactic bilateral mastectomy presenting as a transfer from [facility] where she presented with nausea,vomiting, and RUQ pain. 24 Hour Events/Subjective: -NAEO -last BM 3 days ago. Will try enema if prn not working today -RUQ pain 10/29 today, was 03/28 prior. States improving. -Nausea + today. Says she vomited this AM. -Asking to reschedule PET and surgery timing. -completed vancomycin -cw Ursodiol, tolerating well. May take a long time for ALP to decrease. -creatinine improving with holding torsemide. -Patient denied any chest pain, palpitations, shortness of breath, cough, diarrhea, dysuria, numbness or tingling. Objective: Vitals Last value Range last 24 hrs Temperature Temp: 36.7 ??C (98.1 ??F) Temp: [36.7 ??C (98.1 ??F)-37.1 ??C (98.7 ??F)] Heart Rate Heart Rate: 89 Heart Rate: [89] Blood Pressure BP: 140/61 BP: (140-142)/(61-62) Art Line BP BP (Arterial Line): -- MAP (NBP): [87 mmHg-88 mmHg] Respiratory Rate Resp: 18 Resp: [16-18] SpO2 SpO2: 96 % SpO2: [93 %-96 %] Oxygen Delivery Oxygen Therapy O2 Device: None (Room air) O2 Flow Rate (L/min): 3 L/min Reason for Oxygen: Patient currently on room air Intake/Output Summary (Last 24 hours) at 07/15/2024 1106 Last data filed at 07/15/2024 0944 Gross per 24 hour Intake 640 ml Output 1550 ml Net -910 ml Last Bowel Movement: 07/11/24 Patient Vitals for the past 168 hrs: Weight 07/15/24 0443 93 kg (205 lb) 07/09/24 0100 92.6 kg (204 lb 3.2 oz) Admit wt: 92.62 kg Physical Exam: Gen: in bed in NAD; alert, oriented, conversant HEENT: anicteric, EOMI intact CV: RRR, no murmurs/rubs/gallops Resp: CTAB, no crackles/wheezes/ronchi, normal work of breathing Abd: normal bowel sounds, soft, non-tender, no rebound or guarding Ext: 2+ distal pulses, no pedal edema Neuro: no focal deficits noted, moves all extremities spontaneously Skin: no rashes, lesions, or ulcerations noted Lines/Drains/Airways Lines: Implanted Port 03/23/24 1443 Single Lumen infraclavicular fossa, right (Active) Port Accessed Date 05/29/24 05/29/24 1030 Port Accessed Time 0704/17/24 0700 Access Needle 19 gauge;3/4 in length 04/17/24 0700 Pain Prevention intradermal injection 04/17/24 0700 Indication/Daily Review of Necessity Medications known to cause phlebitis (vasopressors, concentrated electrolytes, TPN, chemotherapy) 05/29/24 1030 Site Preparation/Maintenance dressing: dry and intact 05/29/24 1154 Lumen Patency/Care flushed without difficulty;blood return present 05/29/24 1154 Phlebitis 0-->no symptoms 05/29/24 1154 Infiltration 0-->no symptoms 05/29/24 1154 Site Signs/Symptoms no redness;no swelling;no warmth;no pain 03/28/24 0726 Vascular Access Port Interventions blood specimen obtained and sent to lab 04/17/24 0700 Port De-access Date 05/08/24 05/08/24 1230 Port De-Access Time 1408 04/17/24 1408 Port De-Access Indication infusion complete 05/08/24 1230 PIV 07/09/24 0000 20 gauge median cubital vein (antecubital fossa), left (Active) Indication/Daily Review of Necessity medication therapy intermittent;fluid therapy continuous 07/09/24 0900 Site Preparation/Maintenance dressing: dry and intact 07/09/24 1000 Securement catheter stabilization device, secured with 07/09/24 0900 Patency/Maintenance flushed without difficulty;alcohol impregnated cap applied 07/09/24 1000 Phlebitis 0-->no symptoms 07/09/24 1000 Infiltration 0-->no symptoms 07/09/24 1000 Labs: Recent Labs 07/15/2432207/14/248 07/13/24 0410 07/12/24 0834 07/11/24 0408 WBC 8.05 8.50 10.72* 9.66* 11.57* HGB 8.4* 8.4* 8.6* 8.6* 8.2* HCT 26.3* 25.6* 26.6* 27.3* 25.2* PLATELET 317 306 322 324 375* MCV 92.3 92.1 91.7 95.5* 92.6 Recent Labs 07/15/2432207/14/248 07/13/240 07/12/24 0410 07/11/24 0408 07/10/24 0526 07/10/24 0215 NA 139 138 141 143 142 < > -- CL 98 96* 99 102 102 < > -- CO2 26 30 29 28 25 < > -- K 3.9 3.7 3.6 3.2* 3.6 < > -- PHOS -- 3.0 3.0 2.8 2.8 -- 3.7 CALCIUM 9.6 9.3 9.5 8.9 8.9 < > -- BUN 22* 24* 21* 23* 35* < > -- CREATININE 1.80* 2.09* 2.38* 2.16* 2.84* < > -- < > = values in this interval not displayed. LFTs Recent Labs 07/15/2432207/14/248 07/13/240 07/12/24 0410 07/11/24 0408 PROT 8.2* 7.9 8.0 7.1 7.9 ALBUMIN 3.1* 3.2 3.1* 2.8* 3.0* AST 201* 202* 187* 146* 145* ALT 93* 89* 80* 65* 67* ALKPHOS 2,850* 2,893* 2,911* 2,359* 2,593* BILITOT 1.3 1.2 1.3 1.2 1.2 Endocrine Recent Labs 06/01/24 0144 04/17/24 0729 03/28/24 0724 11/28/23 1110 TSH 0.60 3.58 3.34 0.51 Microbiology: Microbiology Results (Last 30 days) Procedure Component Value Units Date/Time Urine culture [[id number]] (Abnormal) (Susceptibility) Collected: 07/09/24 09 Lab Status: Final result Specimen: Urine, Clean Catch Updated: 07/11/24 06 Urine Culture Greater than 100,000 cfu/ml Enterococcus faecium Susceptibility Enterococcus faecium VITEK 2 METHOD Ampicillin Resistant Ciprofloxacin Resistant Levofloxacin Resistant Nitrofurantoin Intermediate Penicillin Resistant Tetracycline Resistant Vancomycin Susceptible Imaging: Results for orders placed or performed during the hospital encounter of 07/09/24 US Retroperitoneal Complete (Exam End: 07/09/2024 10:53 AM) Result Value WORKSTATION ID [id number] Impression 1. Slightly limited exam with no evidence of hydronephrosis or nephrolithiasis. 2. Stable mild right renal atrophy. I have personally reviewed the image(s) and the resident's interpretation and agree with the findings, David Alvarado MD at 07/09/2024 11:07 AM Thank you for letting us participate in the care of this patient. If you are a health care provider and have any questions regarding this report, please contact the number above. For patients who have questions, please contact the health primary care coordinator that requested your imaging first. David Alvarado, Staff Physician Electronically Signed Final Report 07/09/2024 11:16 am US Abdomen Limited (Exam End: 07/09/2024 11:16 AM) Result Value WORKSTATION ID [id number] Impression 1. Normal hepatic parenchymal echogenicity and contour. [...] resident's interpretation and agree with the findings, David Alvarado MD at 07/09/2024 11:45 AM Thank you for letting us participate in the care of this patient. If you are a health care provider and have any questions regarding this report, please contact the number above. For patients who have questions, please contact the health primary care coordinator that requested your imaging first. David Alvarado, Staff Physician Electronically Signed Final Report 07/09/2024 11:53 am MRI Cholangiopancreatography WO Contrast (Exam End: 07/09/2024 10:28 PM) Result Value WORKSTATION ID [id number] Impression Bile duct ectasia with CBD measuring up to [address] evident choledocholithiasis. Thank you for letting us participate in the care of this patient. If you are a health care provider and have any questions regarding this report, please contact the number below. For patients who have questions please contact the health primary care coordinator that requested your imaging first. imaging reports: CTH: no acute intracranial abnormality CXR: mild interstitial pattern to the chest. Pulm edema vs. Atypical infection. Sclerosis to mid left clavicle. CT AP w/o: gas in the distal esophagus which can be seen with reflux. There is some wall prominenceto the distal esophagus which can be seen with inflammation/esophagitis. CBD is measuring dilated. This may be secondary to the patient's cholecystectomy status, however, correlation with lab values s uggested. Moderate amount of stool in the colon which can be seen with constipation. There is hyperdensity in the TI, which may be related to ingested products but should be correlated with any concern for blood products. Urinary bladder wall prominence. This can be seen with infection or underdistention. Lesions in the adrenal gland which do not fulfill criteria for adenomas. An adrenal mass protocol MRI is recommended for further evaluation. Nonspecifict 5 mm left pulmonary nodule, unchanged from prior examination. Comparison with older imaging studies, if available, would be beneficial. Medications Scheduled Meds: ursodioL 300 mg Oral BID WC apixaban 5 mg Oral BID multivitamin with minerals 1 tablet Oral Daily atorvastatin 80 mg Oral Daily at Noon clopidogreL 75 mg Oral Daily lamoTRIgine 100 mg Oral BID levothyroxine 100 mcg Oral QAM metoprolol succinate XL 50 mg Oral BID pantoprazole EC 40 mg Oral Daily QUEtiapine 150 mg Oral Nightly sodium chloride 0.9 % (flush) 5 mL Intravenous BID baclofen 5 mg Oral BID white petrolatum-mineral oiL Topical (Top) Daily senna-docusate 2 tablet Oral BID polyethylene glycoL (MIRALAX) oral powder 17 g Oral Daily PRN Meds:ipratropium-albuteroL, bisacodyL, ondansetron, magnesium hydroxide, sodium chloride 0.9 % (flush), lidocaine, melatonin, naloxone, oxyCODONE OR oxyCODONE, oxyCODONE, acetaminophen Assessment & Plan: Oksana Betancourt is a 58 y.o. female with PMH significant for ASCVD s/p CRIS x7, AV stenosis s/p replacement, hypothyroidism, PAF on Eliquis, hx of Hodgkin's lymphoma in her 20s s/p mantle radiation therapy, and triple negative breast cancer with known met to [address] planned for upcoming prophylactic bilateral mastectomy presenting as a transfer from [facility] where she presented with nausea, vomiting, and RUQ pain. Labs at OSH remarkable for T bili 1.62, AST 172, ALT 93, alk phos 4732 with moderately dilated CBD on CT AP, overall concerning for obstructive biliary process. Right upper quadrant ultrasound was performed here which showed CBD 1 cm, likely normal and nonspecific in the settingof prior cholecystectomy. GGT was also noted to be elevated to 2038 prompting further evaluation with MRCP as recommended by GI. MRCP showed bile duct ectasia with CBD showing up to 11 mm no evidenceof choledocholithiasis. EUS without significant pathology in the CBD or pancreas to explain alk phos/GGT elevation. There are cases of pembrolizumab induced cholestatic injury - discussed with GI whoare recommending ursodiol and obtaining IgG4 level. Role of glucocorticoids unclear so will hold off for the time being. Patient was also noted to have sclerosis to mid left clavicle on CXR at OSH. Bony mets could help to explain elevation in alk phos. Oncology has been consulted for guidance on imaging preference especially in the setting of planned upcoming mastectomy as this could record changer. Plan for further work up outpatient. Hospitalization has been relayed to surgical team and mastectomy cancelled for the time being. Working with onc on arranging PET/CT prior to mastectomy now planned for 07/30/24. OSH labs also remarkable for acute JONATHAN with BUN 43, creatinine 5.7. UA concerning for infection andpatient was started on IV Zosyn. Patient was also noted to be retaining urine on bladder ultrasoundand required straight catheterization x 1. Retroperitoneal ultrasound showed no evidence of hydronep hrosis. Creatinine improving with fluid resuscitation and treatment of UTI. Will continue to BladderScan periodically to ensure she is not retaining. Urine culture resulted with greater than 100,000 CFU per mL E faecium. Antibiotics transitioned to Vancomycin with urine cx showing susceptibility. Anticipate 5 day treatment course for simple cystitis. 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 Started on ursodiol. #RUQ pain #Elevated alk phos/GGT #Concern for checkpoint inhibitor -S/p cholecystectomy -GI consulted: -RUQUS: CBD 1 cm -MRCP: bile duct ectasia with CBD 11mm, no evidence of cholelithiasis -Mitochondrial antibody negative -smooth muscle antibody negative -Pending: liver/kidney microsome type 1 antibody, IgG4 -Zofran PRN -EUS: no significant pathology - start urosodiol 300mg BID. ---> goal will be to eventually uptitrate to 13-15mg/kg TDD #JONATHAN 2/2 ATN #E faecium UTI, simple cystitis #Urinary retention -Creatinine 5.7 at OSH -S/p IVF resuscitation with improvement -S/p IV Zosyn -RP US: no hydronephrosis -S/p straight cath x1 for retention likely 2/2 UTI -Bladder scan qshift or if changes in UO -SPEP pending, UPEP abnormal dw onc, wnl, no concern for MM. -Completed Vancomycin (07/10 -07/14) -Treatment for ATN is supportive: limit ongoing insults -If able to send a 15 cc sample to the nephrology, 97-1 by tube system we can examine under the microscope -Hold torsemide as she has evidence of hypovolemia (lightheaded, dizzy, HCO3 contraction 23-->29, net negative, dry exam) -Please avoid NSAIDs, IV contrast, nephrotoxins -Keep MAP >65 as able to -Renally dose medications as appropriate #ASCVD with h/o [place] and PCI #Non-rheumatic aortic valve stenosis - S/p Edd 2021 #Ischemic cardiomyopathy -Follows with Dr. Montenegro -C/w statin -C/w plavix -Hold torsemide #Bipolar disorder -C/w lamictal, seroquel #Hypothyroidism -C/w home synthroid #GERD -C/w home PPI #PAF -Resume home apixaban -C/w home metoprolol #Malignant neoplasm of upper-outer quadrant of left breast in female, estrogen receptor negative - Follows with Dr. Prater #Sclerosis of mid left clavicle on CXR #Small bilateral adrenal nodules -Hold home percocet -C/w home baclofen -Oxycodone scale, PRN tylenol -Onc consulted, follow up sclerotic lesion outpatient. -MRI adrenal mass protocol in & out of phase imaging outpatient for work up of small bilateral adrenal nodules -Gen surg notified of admission; mastectomy delayed for time being #Severe protein calorie malnutrition -Daily MVT #Routine Diet: Regular diet DVT Prophylaxis: DOAC SCD GI Prophylaxis: PPI Code Status: Attempt Cardiopulmonary Resuscitation - Inpatient Dispo: Pending clinical course Charles Berry MD [facility] Medicine 07/15/24 11:06 AM IPI Certification I certify that I am a [facility] credentialed attending provider with admitting privileges and that the patient meets or has met medical necessity to require an inpatient IPI level of care meeting a minimumof two midnights or is on the [facility] inpatient only procedure list (status C) due to: acute kidney injury necessitating close monitoring of fluid balance such as intravenous fluids and/or titration of medication to achieve optimal effect and minimize the chance of immediate or severe side effects and E. Faecium UTI requiring IV Vancomycin due to antibiotic resistance pattern. * Gaudencio Emerson MD - 07/15/2024 9:27 AM EDT Hypertension/Nephrology Inpatient Follow-up Oksana Betancourt [id number] 1965 ID: 58 y.o. old female seen for JONATHAN. Interval History: Uneventful night. No complaints this AM. NAD, normal respiratory effort, no edema. VSS, Cr continues to improve with stable electrolytes and volume status. BP stable. Avoid NSAIDS. Will sign off. Please call if we can be of further assistance. * Valeri Bah RN - 07/14/2024 6:55 PM EDT Patient Summary Reason for admission: Abdominal pain, N/V Relevant PMH: Breast cancer on chemo, CAD s/p CRIS x 7, CHF, aortic valve stenosis s/p replacement, hypothyroidism, paroxysmal A-fib on Eliquis Significant 24 hour events: 07/14 AM: A&Ox4. VSS on RA. OOB to bathroom independently. Pt c/o 02/26 neck pain PRN oxycodone 10mg given x1. Voiding adequate amt concentrated urine spontaneously, sample sent to nephrology per order. Endorses constipation, had previously declined scheduled miralax but accepted it today along with scheduled Pericolace, no BM yet. Resting between care. Action List Trend LFTs IV vanco (last dose tonight) Arrange for transportation tomorrow PRN MoM * Gaudencio Emerson MD - 07/14/2024 2:48 PM EDT Hypertension/Nephrology Inpatient Follow-up Oksana Betancourt [id number] 1965 ID: 58 y.o. old female seen for JONATHAN. Interval History: Uneventful night. NAD, normal respiratory effort, no edema. VSS, Cr improved today. Continue to hold diuretics. Course consistent with ATN. * Charles Berry MD - 07/14/2024 11:17 AM EDT Images from the original note were not included. Hospital Medicine Progress Note Patient info: Name: Oksana Betancourt : 1965 PCP: Gaudencio Scales DO PCP phone number: [phone] Date of Admission: 07/09/2024 ( Hospital Day 5 days ) Attending:Charles Berry MD ID: Oksana Betancourt is a 58 y.o. female with PMH significant for ASCVD s/p CRIS x7, AV stenosis s/preplacement, hypothyroidism, PAF on Eliquis, hx of Hodgkin's lymphoma in her 20s s/p mantle radiation therapy, and triple negative breast cancer with known met to [address] planned for upcoming prophylactic bilateral mastectomy presenting as a transfer from [facility] where she presented with nausea,vomiting, and RUQ pain. 24 Hour Events/Subjective: -NAEO -last BM 2 days ago. Will try prns and follow -RUQ pain 2/10 today, was 7/10 prior. States improving. -Nausea resolved -Start Ursodiol per GI. -nephro consult reviewed. Increased [place] and [place] FLC noted, will dw onc. -creatinine improved with holding torsemide. -Patient denied any chest pain, palpitations, shortness of breath, cough, diarrhea, dysuria, numbness or tingling. Objective: Vitals Last value Range last 24 hrs Temperature Temp: 36.6 ??C (97.9 ??F) Temp: [36.6 ??C (97.9 ??F)] Heart Rate Heart Rate: 88 Heart Rate: [88] Blood Pressure BP: 135/65 BP: (124-135)/(60-70) Art Line BP BP (Arterial Line): -- MAP (NBP): [81 mmHg-91 mmHg] Respiratory Rate Resp: 19 Resp: [16-19] SpO2 SpO2: 94 % SpO2: [94 %-97 %] Oxygen Delivery Oxygen Therapy O2 Device: None (Room air) O2 Flow Rate (L/min): 3 L/min Reason for Oxygen: Patient currently on room air Intake/Output Summary (Last 24 hours) at 07/14/2024 1117 Last data filed at 07/13/20242032 Gross per 24 hour Intake -- Output 1300 ml Net -1300 ml Last Bowel Movement: 07/11/24 Patient Vitals for the past 168 hrs: Weight 07/09/24 0100 92.6 kg (204 lb 3.2 oz) Admit wt: 92.62 kg Physical Exam: Gen: in bed in NAD; alert, oriented, conversant HEENT: anicteric, EOMI intact CV: RRR, no murmurs/rubs/gallops Resp: CTAB, no crackles/wheezes/ronchi, normal work of breathing Abd: normal bowel sounds, soft, non-tender, no rebound or guarding Ext: 2+ distal pulses, no pedal edema Neuro: no focal deficits noted, moves all extremities spontaneously Skin: no rashes, lesions, or ulcerations noted Lines/Drains/Airways Lines: Implanted Port 03/23/24 1443 Single Lumen infraclavicular fossa, right (Active) Port Accessed Date 05/29/24 05/29/24 1030 Port Accessed Time 72904/17/24 0700 Access Needle 19 gauge;3/4 in length 04/17/24 07 Pain Prevention intradermal injection 04/17/24 0700 Indication/Daily Review of Necessity Medications known to cause phlebitis (vasopressors, concentrated electrolytes, TPN, chemotherapy) 05/29/24 1030 Site Preparation/Maintenance dressing: dry and intact 05/29/24 1154 Lumen Patency/Care flushed without difficulty;blood return present 05/29/24 1154 Phlebitis 0-->no symptoms 05/29/24 1154 Infiltration 0-->no symptoms 05/29/24 1154 Site Signs/Symptoms no redness;no swelling;no warmth;no pain 03/28/24 0726 Vascular Access Port Interventions blood specimen obtained and sent to lab 04/17/24 0700 Port De-access Date 05/08/24 05/08/24 1230 Port De-Access Time 1408 04/17/24 1408 Port De-Access Indication infusion complete 05/08/24 1230 PIV 07/09/24 0000 20 gauge median cubital vein (antecubital fossa), left (Active) Indication/Daily Review of Necessity medication therapy intermittent;fluid therapy continuous 07/09/24 09 Site Preparation/Maintenance dressing: dry and intact 07/09/24 1000 Securement catheter stabilization device, secured with 07/09/24899 Patency/Maintenance flushed without difficulty;alcohol impregnated cap applied 07/09/24 1000 Phlebitis 0-->no symptoms 07/09/24 1000 Infiltration 0-->no symptoms 07/09/24 1000 Labs: Recent Labs 07/14/241707/13/240 07/12/24 0834 07/11/24 0408 07/10/24 0526 WBC 8.50 10.72* 9.66* 11.57* 10.15* HGB 8.4* 8.6* 8.6* 8.2* 8.1* HCT 25.6* 26.6* 27.3* 25.2* 24.5* PLATELET 306 322 324 375* 412* MCV 92.1 91.7 95.5* 92.6 92.1 Recent Labs 07/14/241707/13/240 07/12/240 07/11/24 0408 07/10/24 0526 07/10/24 0215 NA 138 141 143 142 142 -- CL 96* 99 102 102 102 -- CO2 30 29 28 25 25 -- K 3.7 3.6 3.2* 3.6 3.7 -- PHOS 3.0 3.0 2.8 2.8 -- 3.7 CALCIUM 9.3 9.5 8.9 8.9 9.0 -- BUN 24* 21* 23* 35* 39* -- CREATININE 2.09* 2.38* 2.16* 2.84* 3.12* -- LFTs Recent Labs 07/14/241707/13/240 07/12/240 07/11/24 0408 07/10/24 0526 PROT 7.9 8.0 7.1 7.9 7.5 ALBUMIN 3.2 3.1* 2.8* 3.0* 3.2 AST 202* 187* 146* 145* 124* ALT 89* 80* 65* 67* 58* ALKPHOS 2,893* 2,911* 2,359* 2,593* 2,487* BILITOT 1.2 1.3 1.2 1.2 1.2 Endocrine Recent Labs 06/01/24 0144 04/17/24 0729 03/28/24 0724 11/28/23 1110 TSH 0.60 3.58 3.34 0.51 Microbiology: Microbiology Results (Last 30 days) Procedure Component Value Units Date/Time Urine culture [[id number]] (Abnormal) (Susceptibility) Collected: 07/09/24 09 Lab Status: Final result Specimen: Urine, Clean Catch Updated: 07/11/24625 Urine Culture Greater than 100,000 cfu/ml Enterococcus faecium Susceptibility Enterococcus faecium VITEK 2 METHOD Ampicillin Resistant Ciprofloxacin Resistant Levofloxacin Resistant Nitrofurantoin Intermediate Penicillin Resistant Tetracycline Resistant Vancomycin Susceptible Imaging: Results for orders placed or performed during the hospital encounter of 07/09/24 US Retroperitoneal Complete (Exam End: 07/09/2024 10:53 AM) Result Value WORKSTATION ID [id number] Impression 1. Slightly limited exam with no evidence of hydronephrosis or nephrolithiasis. 2. Stable mild right renal atrophy. I have personally reviewed the image(s) and the resident's interpretation and agree with the findings, David Alvarado MD at 07/09/2024 11:07 AM Thank you for letting us participate in the care of this patient. If you are a health care provider and have any questions regarding this report, please contact the number above. For patients who have questions, please contact the health primary care coordinator that requested your imaging first. David Alvarado, Staff Physician Electronically Signed Final Report 07/09/2024 11:16 am US Abdomen Limited (Exam End: 07/09/2024 11:16 AM) Result Value WORKSTATION ID [id number] Impression 1. Normal hepatic parenchymal echogenicity and contour. [...] resident's interpretation and agree with the findings, David Alvarado MD at 07/09/2024 11:45 AM Thank you for letting us participate in the care of this patient. If you are a health care provider and have any questions regarding this report, please contact the number above. For patients who have questions, please contact the health primary care coordinator that requested your imaging first. David Alvarado, Staff Physician Electronically Signed Final Report 07/09/2024 11:53 am MRI Cholangiopancreatography WO Contrast (Exam End: 07/09/2024 10:28 PM) Result Value WORKSTATION ID [id number] Impression Bile duct ectasia with CBD measuring up to [address] evident choledocholithiasis. Thank you for letting us participate in the care of this patient. If you are a health care provider and have any questions regarding this report, please contact the number below. For patients who have questions please contact the health primary care coordinator that requested your imaging first. imaging reports: CTH: no acute intracranial abnormality CXR: mild interstitial pattern to the chest. Pulm edema vs. Atypical infection. Sclerosis to mid left clavicle. CT AP w/o: gas in the distal esophagus which can be seen with reflux. There is some wall prominenceto the distal esophagus which can be seen with inflammation/esophagitis. CBD is measuring dilated. This may be secondary to the patient's cholecystectomy status, however, correlation with lab values s uggested. Moderate amount of stool in the colon which can be seen with constipation. There is hyperdensity in the TI, which may be related to ingested products but should be correlated with any concern for blood products. Urinary bladder wall prominence. This can be seen with infection or underdistention. Lesions in the adrenal gland which do not fulfill criteria for adenomas. An adrenal mass protocol MRI is recommended for further evaluation. Nonspecifict 5 mm left pulmonary nodule, unchanged from prior examination. Comparison with older imaging studies, if available, would be beneficial. Medications Scheduled Meds: ursodioL 300 mg Oral BID WC apixaban 5 mg Oral BID multivitamin with minerals 1 tablet Oral Daily atorvastatin 80 mg Oral Daily at Noon clopidogreL 75 mg Oral Daily lamoTRIgine 100 mg Oral BID levothyroxine 100 mcg Oral QAM metoprolol succinate XL 50 mg Oral BID pantoprazole EC 40 mg Oral Daily QUEtiapine 150 mg Oral Nightly sodium chloride 0.9 % (flush) 5 mL Intravenous BID baclofen 5 mg Oral BID white petrolatum-mineral oiL Topical (Top) Daily senna-docusate 2 tablet Oral BID polyethylene glycoL (MIRALAX) oral powder 17 g Oral Daily PRN Meds:ipratropium-albuteroL, vancomycin- intermittent dosing per levels, bisacodyL, ondansetron,magnesium hydroxide, sodium chloride 0.9 % (flush), lidocaine, melatonin, naloxone, oxyCODONE OR oxyCODONE, oxyCODONE, acetaminophen Assessment & Plan: Oksana Betancourt is a 58 y.o. female with PMH significant for ASCVD s/p CRIS x7, AV stenosis s/p replacement, hypothyroidism, PAF on Eliquis, hx of Hodgkin's lymphoma in her 20s s/p mantle radiation therapy, and triple negative breast cancer with known met to [address] planned for upcoming prophylactic bilateral mastectomy presenting as a transfer from [facility] where she presented with nausea, vomiting, and RUQ pain. Labs at OSH remarkable for T bili 1.62, AST 172, ALT 93, alk phos 4732 with moderately dilated CBD on CT AP, overall concerning for obstructive biliary process. Right upper quadrant ultrasound was performed here which showed CBD 1 cm, likely normal and nonspecific in the settingof prior cholecystectomy. GGT was also noted to be elevated to 2038 prompting further evaluation with MRCP as recommended by GI. MRCP showed bile duct ectasia with CBD showing up to 11 mm no evidenceof choledocholithiasis. EUS without significant pathology in the CBD or pancreas to explain alk phos/GGT elevation. There are cases of pembrolizumab induced cholestatic injury - discussed with GI whoare recommending ursodiol and obtaining IgG4 level. Role of glucocorticoids unclear so will hold off for the time being. Patient was also noted to have sclerosis to mid left clavicle on CXR at OSH. Bony mets could help to explain elevation in alk phos. Oncology has been consulted for guidance on imaging preference especially in the setting of planned upcoming mastectomy as this could record changer. Plan for further work up outpatient. Hospitalization has been relayed to surgical team and mastectomy cancelled for the time being. Working with onc on arranging PET/CT prior to mastectomy now planned for 07/30/24. OSH labs also remarkable for acute JONATHAN with BUN 43, creatinine 5.7. UA concerning for infection andpatient was started on IV Zosyn. Patient was also noted to be retaining urine on bladder ultrasoundand required straight catheterization x 1. Retroperitoneal ultrasound showed no evidence of hydronep hrosis. Creatinine improving with fluid resuscitation and treatment of UTI. Will continue to BladderScan periodically to ensure she is not retaining. Urine culture resulted with greater than 100,000 CFU per mL E faecium. Antibiotics transitioned to Vancomycin with urine cx showing susceptibility. Anticipate 5 day treatment course for simple cystitis. 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 Started on ursodiol. #RUQ pain #Elevated alk phos/GGT #Concern for checkpoint inhibitor -S/p cholecystectomy -GI consulted -RUQUS: CBD 1 cm -MRCP: bile duct ectasia with CBD 11mm, no evidence of cholelithiasis -Mitochondrial antibody and smooth muscle antibody negative -Pending: liver/kidney microsome type 1 antibody, IgG4 -Zofran PRN -EUS: no significant pathology -follow up IgG4 - start urosodiol 300mg BID. ---> goal will be to eventually uptitrate to 13-15mg/kg TDD #JONATHAN #E faecium UTI, simple cystitis #Urinary retention -Creatinine 5.7 at OSH -S/p IVF resuscitation with improvement -S/p IV Zosyn -RP US: no hydronephrosis -S/p straight cath x1 for retention likely 2/2 UTI -Bladder scan qshift or if changes in UO -SPEP pending, UPEP abnormal dw onc, wnl, no concern for MM. -Completed Vancomycin (07/10 -07/14) -Likely resolving ATN. -Treatment for ATN is supportive: limit ongoing insults -If able to send a 15 cc sample to the nephrology, 97-1 by tube system we can examine under the microscope -Hold torsemide as she has evidence of hypovolemia (lightheaded, dizzy, HCO3 contraction 23-->29, net negative, dry exam) -Please avoid NSAIDs, IV contrast, nephrotoxins -Keep MAP >65 as able to -Renally dose medications as appropriate #ASCVD with h/o [place] and PCI #Non-rheumatic aortic valve stenosis - S/p Edd 2021 #Ischemic cardiomyopathy -Follows with Dr. Montenegro -C/w statin -C/w plavix -Hold torsemide #Bipolar disorder -C/w lamictal, seroquel #Hypothyroidism -C/w home synthroid #GERD -C/w home PPI #PAF -Resume home apixaban -C/w home metoprolol #Malignant neoplasm of upper-outer quadrant of left breast in female, estrogen receptor negative - Follows with Dr. Prater #Sclerosis of mid left clavicle on CXR #Small bilateral adrenal nodules -Hold home percocet -C/w home baclofen -Oxycodone scale, PRN tylenol -Onc consulted, follow up sclerotic lesion outpatient. -MRI adrenal mass protocol in & out of phase imaging outpatient for work up of small bilateral adrenal nodules -Gen surg notified of admission; mastectomy delayed for time being #Severe protein calorie malnutrition -Daily MVT #Routine Diet: Regular diet DVT Prophylaxis: DOAC SCD GI Prophylaxis: PPI Code Status: Attempt Cardiopulmonary Resuscitation - Inpatient Dispo: Pending clinical course Charles Berry MD [facility] Medicine 07/14/24 11:17 AM IPI Certification I certify that I am a D-H credentialed attending provider with admitting privileges and that the patient meets or has met medical necessity to require an inpatient IPI level of care meeting a minimumof two midnights or is on the [facility] inpatient only procedure list (status C) due to: acute kidney injury necessitating close monitoring of fluid balance such as intravenous fluids and/or titration of medication to achieve optimal effect and minimize the chance of immediate or severe side effects and E. Faecium UTI requiring IV Vancomycin due to antibiotic resistance pattern. * Jessenia Arauz RN - 07/13/2024 6:30 PM EDT Patient Summary Reason for admission: Abdominal pain, N/V Relevant PMH: Breast cancer on chemo, CAD s/p CRIS x 7, CHF, aortic valve stenosis s/p replacement, hypothyroidism, paroxysmal A-fib on Eliquis Significant 24 hour events: 07/13 AM: A&Ox4. VSS on RA. OOB to bathroom independently. Pt c/o 02/26 neck pain PRN oxycodone 10mg given x2. Pt experienced nausea, PRN Zofran 4mg with good effect. Pt sleeping in between care. Poor appetite due to nausea. Walked around today with mobility tech. Action List Trend LFTs IV vanco Discharge Plan: 07/14 * Mary Rausch MD - 07/13/2024 6:14 PM EDT Deep breath GASTROENTEROLOGY & HEPATOLOGY CONSULTATION INPATIENT PROGRESS NOTE ID: Oksana Betancourt is a 58 y.o. female with PMH of breast cancer on chemo, CAD s/p CRIS x 7, CHF, aortic valve stenosis s/p replacement, hypothyroidism, paroxysmal A-fib on Eliquis [facility] with abdominal pain, nausea and vomiting. GI is being consulted for abnormal LFTs andimaging. Re- engaged today to see if would benefit from steroids/ biopsy. Interval History: -MRCP demonstrates CBD dilation to 11 mm, no choledocholithiasis - EUS normal -ASMA, AMA negative -HD stable, afebrile - ALP continued to be elevated 2359-->2911. AST 146-->187, ALT 65-->80 Tbili 1.3 Active Hospital Problem List Patient Active Problem List Diagnosis Code Malignant neoplasm of upper-outer quadrant of left breast in female, estrogen receptor negative C50.412, Z17.1 ASCVD (arteriosclerotic cardiovascular disease) I25.10 Cardiomyopathy, ischemic I25.5 Nonrheumatic aortic valve stenosis I35.0 PAF (paroxysmal atrial fibrillation) I48.0 Abdominal pain R10.9 Bilious vomiting with nausea R11.14 Gastroesophageal reflux K21.9 Hypothyroidism E03.9 Elevated alkaline phosphatase level R74.8 JONATHAN (acute kidney injury) N17.9 Severe protein-calorie malnutrition E43 Scheduled Meds: ursodioL 300 mg Oral BID WC vancomycin 500 mg Intravenous Once apixaban 5 mg Oral BID multivitamin with minerals 1 tablet Oral Daily atorvastatin 80 mg Oral Daily at Noon clopidogreL 75 mg Oral Daily lamoTRIgine 100 mg Oral BID levothyroxine 100 mcg Oral QAM metoprolol succinate XL 50 mg Oral BID pantoprazole EC 40 mg Oral Daily QUEtiapine 150 mg Oral Nightly sodium chloride 0.9 % (flush) 5 mL Intravenous BID baclofen 5 mg Oral BID white petrolatum-mineral oiL Topical (Top) Daily senna-docusate 2 tablet Oral BID polyethylene glycoL (MIRALAX) oral powder 17 g Oral Daily Continuous Infusions: PRN Meds:.ipratropium-albuteroL, vancomycin- intermittent dosing per levels, bisacodyL, ondansetron, magnesium hydroxide, sodium chloride 0.9 % (flush), lidocaine, melatonin, naloxone, oxyCODONE OR oxyCODONE, oxyCODONE, acetaminophen Physical Examination Vitals: 07/12/24 2045 07/13/24 0415 07/13/24 0804 07/13/24 1300 BP: 161/71 157/70 136/69 133/70 BP Location (NBP): Right arm Right arm Right arm Right arm Patient Position: Lying Lying Sitting Sitting Pulse: 87 Resp: 18 18 18 16 Temp: 36.7 ??C (98.1 ??F) 36.9 ??C (98.4 ??F) 36.8 ??C (98.2 ??F) 36.6 ??C (97.9 ??F) TempSrc: Oral Oral Oral Oral SpO2: 95% 97% 95% 97% Weight: Height: PHYSICAL EXAM GENERAL: No acute distress, alert and oriented HEENT: AT/NC, sclerae anicteric, moist mucous membranes ABDOMEN: Soft, normoactive bowel sounds, non-tender, non-distended EXT: Warm, no edema SKIN: No jaundice Pertinent Recent labs CBC Lab Results Component Value Date White Blood Cell 10.72 (H) 07/13/2024 Hemoglobin 8.6 (L) 07/13/2024 Hematocrit 26.6 (L) 07/13/2024 Platelet 322 07/13/2024 Lab Results Component Value Date Sodium 141 07/13/2024 Potassium 3.6 07/13/2024 Chloride 99 07/13/2024 Carbon Dioxide 29 07/13/2024 Blood Urea Nitrogen 21 (H) 07/13/2024 Creatinine 2.38 (H) 07/13/2024 Glucose 114 07/13/2024 LFT's Lab Results Component Value Date Alkaline Phosphatase 2,911 (H) 07/13/2024 Aspartate Aminotransferase 187 (H) 07/13/2024 Albumin 3.1 (L) 07/13/2024 Bilirubin, Total 1.3 07/13/2024 Alanine Aminotransferase 80 (H) 07/13/2024 Protein, Total 8.0 07/13/2024 Pertinent Endoscopic Procedures/Reports: Reviewed Pertinent Recent Imaging: Reviewed Impression: Oksana Betancourt is a 58 y.o. female with PMH of breast cancer on chemo, CAD s/p CRIS x 7, CHF, aortic valve stenosis s/p replacement, hypothyroidism, paroxysmal A-fib on Eliquis who presents from [facility] on 07/08 with abdominal pain, nausea and vomiting. GI is being consulted for abnormal LFTs and imaging. It is very uncommon for biliary pathologies to lead to alk phos in the thousands. Additionally, MRCP performed overnight demonstrates CBD dilation to 11 mm but there was no evidence of choledocholithiasis. EUS completed earlier this week for evaluation of ampullary stone versus microlithiasis that was unremarkable. 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 Discussed that the soft review the literature and start patient on ursodiol, 300 mg twice daily. If patient tolerates can eventually be uptitrated to 13-15 mg/kg total daily dose (goal dose). From our standpoint, would not recommend liver biopsy or startingsteroids at this time. Would recommend however adding in the IgG4 level. RECOMMENDATIONS: -Trend LFTs -obtain IgG4. - start urosodiol 300mg BID. ---> goal will be to eventually uptitrate to 13-15mg/kg TDD This case was discussed with Dr. Heller. Recommendations were discussed with primary team. Mary Rausch MD Fellow in Gastroenterology and Hepatology 07/13/2024 Associated attestation - Juanito Heller MD - 07/13/2024 6:51 PM EDT Attending attestation: I interviewed and examined the patient with Dr. Rausch on rounds. I confirm the history and parra physical findings outlined in this note. The assessment and plan were formulated in discussion with me at the time of this encounter, and I agree with them as documented. Juanito Heller MD Section of Gastroenterology [facility] * Elda Gaxiola MD - 07/13/2024 3:45 PM EDT Images from the original note were not included. Hospital Medicine Progress Note Patient info: Name: Oksana Betancorut : 1965 PCP: Gaudencio Scales DO PCP phone number: [phone] Date of Admission: 07/09/2024 ( Hospital Day 4 days ) Attending:Elda Gaxiola MD ID: Oksana Betancourt is a 58 y.o. female with PMH significant for ASCVD s/p CRIS x7, AV stenosis s/preplacement, hypothyroidism, PAF on Eliquis, hx of Hodgkin's lymphoma in her 20s s/p mantle radiation therapy, and triple negative breast cancer with known met to [address] planned for upcoming prophylactic bilateral mastectomy presenting as a transfer from [facility] where she presented with nausea,vomiting, and RUQ pain. 24 Hour Events/Subjective: -NAEO -Patient seen and evaluated at bedside this AM. No acute complaints, just wondering about discharge. No abd pain this AM. -Patient denied any chest pain, palpitations, shortness of breath, cough, diarrhea, dysuria, numbness or tingling. Objective: Vitals Last value Range last 24 hrs Temperature Temp: 36.6 ??C (97.9 ??F) Temp: [36.6 ??C (97.9 ??F)-36.9 ??C (98.4 ??F)] Heart Rate Heart Rate: 87 Heart Rate: [85-87] Blood Pressure BP: 133/70 BP: (133-161)/(69-71) Art Line BP BP (Arterial Line): -- MAP (NBP): [91 mmHg-101 mmHg] Respiratory Rate Resp: 16 Resp: [16-18] SpO2 SpO2: 97 % SpO2: [95 %-97 %] Oxygen Delivery Oxygen Therapy O2 Device: None (Room air) O2 Flow Rate (L/min): 3 L/min Reason for Oxygen: Patient currently on room air Intake/Output Summary (Last 24 hours) at 07/13/2024 1545 Last data filed at 07/13/2024 1523 Gross per 24 hour Intake 500 ml Output 1625 ml Net -1125 ml Last Bowel Movement: 07/11/24 Patient Vitals for the past 168 hrs: Weight 07/09/24 0100 92.6 kg (204 lb 3.2 oz) Admit wt: 92.62 kg Physical Exam: Gen: in bed in NAD; alert, oriented, conversant HEENT: anicteric, EOMI intact CV: RRR, no murmurs/rubs/gallops Resp: CTAB, no crackles/wheezes/ronchi, normal work of breathing Abd: normal bowel sounds, soft, non-tender, no rebound or guarding Ext: 2+ distal pulses, no pedal edema Neuro: no focal deficits noted, moves all extremities spontaneously Skin: no rashes, lesions, or ulcerations noted Lines/Drains/Airways Lines: Implanted Port 03/23/24 1443 Single Lumen infraclavicular fossa, right (Active) Port Accessed Date 05/29/24 05/29/24 1030 Port Accessed Time 72904/17/24 0700 Access Needle 19 gauge;3/4 in length 04/17/24 0700 Pain Prevention intradermal injection 04/17/24 0700 Indication/Daily Review of Necessity Medications known to cause phlebitis (vasopressors, concentrated electrolytes, TPN, chemotherapy) 05/29/24 1030 Site Preparation/Maintenance dressing: dry and intact 05/29/24 1154 Lumen Patency/Care flushed without difficulty;blood return present 05/29/24 1154 Phlebitis 0-->no symptoms 05/29/24 1154 Infiltration 0-->no symptoms 05/29/24 1154 Site Signs/Symptoms no redness;no swelling;no warmth;no pain 03/28/24 0726 Vascular Access Port Interventions blood specimen obtained and sent to lab 04/17/24 07 Port De-access Date 05/08/24 05/08/24 1230 Port De-Access Time 1408 04/17/24 1408 Port De-Access Indication infusion complete 05/08/24 1230 PIV 07/09/24 0000 20 gauge median cubital vein (antecubital fossa), left (Active) Indication/Daily Review of Necessity medication therapy intermittent;fluid therapy continuous 07/09/24 09 Site Preparation/Maintenance dressing: dry and intact 07/09/24 1000 Securement catheter stabilization device, secured with 07/09/24899 Patency/Maintenance flushed without difficulty;alcohol impregnated cap applied 07/09/24 1000 Phlebitis 0-->no symptoms 07/09/24 1000 Infiltration 0-->no symptoms 07/09/24 1000 Labs: Recent Labs 07/13/24 0410 07/12/24 0834 07/11/24 0408 07/10/24 0526 07/09/24 0502 WBC 10.72* 9.66* 11.57* 10.15* 9.89* HGB 8.6* 8.6* 8.2* 8.1* 8.0* HCT 26.6* 27.3* 25.2* 24.5* 24.8* PLATELET 322 324 375* 412* 441* MCV 91.7 95.5* 92.6 92.1 94.7* Recent Labs 07/13/24 0410 07/12/24 0410 07/11/24 0408 07/10/24 0526 07/10/24 0215 07/09/24 1610 NA 141 143 142 142 -- 142 CL 99 102 102 102 -- 100 CO2 29 28 25 25 -- 23 K 3.6 3.2* 3.6 3.7 -- 3.7 PHOS 3.0 2.8 2.8 -- 3.7 -- CALCIUM 9.5 8.9 8.9 9.0 -- 9.6 BUN 21* 23* 35* 39* -- 39* CREATININE 2.38* 2.16* 2.84* 3.12* -- 3.37* LFTs Recent Labs 07/13/24 0410 07/12/24 0410 07/11/24 0408 07/10/24 0526 07/09/24 0502 PROT 8.0 7.1 7.9 7.5 7.6 ALBUMIN 3.1* 2.8* 3.0* 3.2 3.1* AST 187* 146* 145* 124* 124* ALT 80* 65* 67* 58* 61* ALKPHOS 2,911* 2,359* 2,593* 2,487* 2,558* BILITOT 1.3 1.2 1.2 1.2 1.2 Endocrine Recent Labs 06/01/24 0144 04/17/24 0729 03/28/24 0724 11/28/23 1110 TSH 0.60 3.58 3.34 0.51 Microbiology: Microbiology Results (Last 30 days) Procedure Component Value Units Date/Time Urine culture [[id number]] (Abnormal) (Susceptibility) Collected: 07/09/24924 Lab Status: Final result Specimen: Urine, Clean Catch Updated: 07/11/24625 Urine Culture Greater than 100,000 cfu/ml Enterococcus faecium Susceptibility Enterococcus faecium VITEK 2 METHOD Ampicillin Resistant Ciprofloxacin Resistant Levofloxacin Resistant Nitrofurantoin Intermediate Penicillin Resistant Tetracycline Resistant Vancomycin Susceptible Imaging: Results for orders placed or performed during the hospital encounter of 07/09/24 US Retroperitoneal Complete (Exam End: 07/09/2024 10:53 AM) Result Value WORKSTATION ID [id number] Impression 1. Slightly limited exam with no evidence of hydronephrosis or nephrolithiasis. 2. Stable mild right renal atrophy. I have personally reviewed the image(s) and the resident's interpretation and agree with the findings, David Alvarado MD at 07/09/2024 11:07 AM Thank you for letting us participate in the care of this patient. If you are a health care provider and have any questions regarding this report, please contact the number above. For patients who have questions, please contact the health primary care coordinator that requested your imaging first. David Alvarado, Staff Physician Electronically Signed Final Report 07/09/2024 11:16 am US Abdomen Limited (Exam End: 07/09/2024 11:16 AM) Result Value WORKSTATION ID [id number] Impression 1. Normal hepatic parenchymal echogenicity and contour. [...] resident's interpretation and agree with the findings, David Alvarado MD at 07/09/2024 11:45 AM Thank you for letting us participate in the care of this patient. If you are a health care provider and have any questions regarding this report, please contact the number above. For patients who have questions, please contact the health primary care coordinator that requested your imaging first. David Alvarado, Staff Physician Electronically Signed Final Report 07/09/2024 11:53 am MRI Cholangiopancreatography WO Contrast (Exam End: 07/09/2024 10:28 PM) Result Value WORKSTATION ID [id number] Impression Bile duct ectasia with CBD measuring up to [address] evident choledocholithiasis. Thank you for letting us participate in the care of this patient. If you are a health care provider and have any questions regarding this report, please contact the number below. For patients who have questions please contact the health primary care coordinator that requested your imaging first. imaging reports: CTH: no acute intracranial abnormality CXR: mild interstitial pattern to the chest. Pulm edema vs. Atypical infection. Sclerosis to mid left clavicle. CT AP w/o: gas in the distal esophagus which can be seen with reflux. There is some wall prominenceto the distal esophagus which can be seen with inflammation/esophagitis. CBD is measuring dilated. This may be secondary to the patient's cholecystectomy status, however, correlation with lab values s uggested. Moderate amount of stool in the colon which can be seen with constipation. There is hyperdensity in the TI, which may be related to ingested products but should be correlated with any concern for blood products. Urinary bladder wall prominence. This can be seen with infection or underdistention. Lesions in the adrenal gland which do not fulfill criteria for adenomas. An adrenal mass protocol MRI is recommended for further evaluation. Nonspecifict 5 mm left pulmonary nodule, unchanged from prior examination. Comparison with older imaging studies, if available, would be beneficial. Medications Scheduled Meds: apixaban 5 mg Oral BID multivitamin with minerals 1 tablet Oral Daily atorvastatin 80 mg Oral Daily at Noon clopidogreL 75 mg Oral Daily lamoTRIgine 100 mg Oral BID levothyroxine 100 mcg Oral QAM metoprolol succinate XL 50 mg Oral BID pantoprazole EC 40 mg Oral Daily QUEtiapine 150 mg Oral Nightly torsemide 20 mg Oral Daily sodium chloride 0.9 % (flush) 5 mL Intravenous BID baclofen 5 mg Oral BID white petrolatum-mineral oiL Topical (Top) Daily senna-docusate 2 tablet Oral BID polyethylene glycoL (MIRALAX) oral powder 17 g Oral Daily PRN Meds:ipratropium-albuteroL, vancomycin- intermittent dosing per levels, bisacodyL, ondansetron,magnesium hydroxide, sodium chloride 0.9 % (flush), lidocaine, melatonin, naloxone, oxyCODONE OR oxyCODONE, oxyCODONE, acetaminophen Assessment & Plan: Oksana Betancourt is a 58 y.o. female with PMH significant for ASCVD s/p CRIS x7, AV stenosis s/p replacement, hypothyroidism, PAF on Eliquis, hx of Hodgkin's lymphoma in her 20s s/p mantle radiation therapy, and triple negative breast cancer with known met to [address] planned for upcoming prophylactic bilateral mastectomy presenting as a transfer from [facility] where she presented with nausea, vomiting, and RUQ pain. Labs at OSH remarkable for T bili 1.62, AST 172, ALT 93, alk phos 4732 with moderately dilated CBD on CT AP, overall concerning for obstructive biliary process. Right upper quadrant ultrasound was performed here which showed CBD 1 cm, likely normal and nonspecific in the settingof prior cholecystectomy. GGT was also noted to be elevated to 2037 prompting further evaluation with MRCP as recommended by GI. MRCP showed bile duct ectasia with CBD showing up to 11 mm no evidenceof choledocholithiasis. EUS without significant pathology in the CBD or pancreas to explain alk phos/GGT elevation. There are cases of pembrolizumab induced cholestatic injury - discussed with GI whoare recommending ursodiol and obtaining IgG4 level. Role of glucocorticoids unclear so will hold off for the time being. Patient was also noted to have sclerosis to mid left clavicle on CXR at OSH. Bony mets could help to explain elevation in alk phos. Oncology has been consulted for guidance on imaging preference especially in the setting of planned upcoming mastectomy as this could record changer. Plan for further work up outpatient. Hospitalization has been relayed to surgical team and mastectomy cancelled for the time being. Working with onc on arranging PET/CT prior to mastectomy now planned for 07/30/24. OSH labs also remarkable for acute JONATHAN with BUN 43, creatinine 5.7. UA concerning for infection andpatient was started on IV Zosyn. Patient was also noted to be retaining urine on bladder ultrasoundand required straight catheterization x 1. Retroperitoneal ultrasound showed no evidence of hydronep hrosis. Creatinine improving with fluid resuscitation and treatment of UTI. Will continue to BladderScan periodically to ensure she is not retaining. Urine culture resulted with greater than 100,000 CFU per mL E faecium. Antibiotics transitioned to Vancomycin with urine cx showing susceptibility. Anticipate 5 day treatment course for simple cystitis. #RUQ pain #Elevated alk phos/GGT #Concern for checkpoint inhibitor -S/p cholecystectomy -GI consulted -RUQUS: CBD 1 cm -MRCP: bile duct ectasia with CBD 11mm, no evidence of cholelithiasis -Mitochondrial antibody and smooth muscle antibody negative -Pending: liver/kidney microsome type 1 antibody, IgG4 -Zofran PRN -EUS: no significant pathology -Start ursodiol 300 mg BID #JONATHAN #E faecium UTI, simple cystitis #Urinary retention -Creatinine 5.7 at OSH -S/p IVF resuscitation with improvement -S/p IV Zosyn -RP US: no hydronephrosis -S/p straight cath x1 for retention likely 2/2 UTI -Bladder scan qshift or if changes in UO -Nephro consulted due to plateau in Cr -Pending: SPEP, UPEP, urine albumin/cr, urine protein/cr -C/w Vancomycin (07/10 -07/14) #ASCVD with h/o [place] and PCI #Non-rheumatic aortic valve stenosis - S/p Edd 2021 #Ischemic cardiomyopathy -Follows with Dr. Montenegro -C/w statin -C/w plavix -Hold torsemide #Bipolar disorder -C/w lamictal, seroquel #Hypothyroidism -C/w home synthroid #GERD -C/w home PPI #PAF -Resume home apixaban -C/w home metoprolol #Malignant neoplasm of upper-outer quadrant of left breast in female, estrogen receptor negative - Follows with Dr. Prater #Sclerosis of mid left clavicle on CXR #Small bilateral adrenal nodules -Hold home percocet -C/w home baclofen -Oxycodone scale, PRN tylenol -Onc consulted, follow up sclerotic lesion outpatient -MRI adrenal mass protocol in & out of phase imaging outpatient for work up of small bilateral adrenal nodules -Gen surg notified of admission; mastectomy delayed for time being #Severe protein calorie malnutrition -Daily MVT #Routine Diet: Regular diet DVT Prophylaxis: DOAC SCD GI Prophylaxis: PPI Code Status: Attempt Cardiopulmonary Resuscitation - Inpatient Dispo: Pending clinical course Elda Gaxiola MD [facility] Medicine 07/13/24 3:45 PM IPI Certification I certify that I am a D-H credentialed attending provider with admitting privileges and that the patient meets or has met medical necessity to require an inpatient IPI level of care meeting a minimumof two midnights or is on the CMS inpatient only procedure list (status C) due to: acute kidney injury necessitating close monitoring of fluid balance such as intravenous fluids and/or titration of medication to achieve optimal effect and minimize the chance of immediate or severe side effects and E. Faecium UTI requiring IV Vancomycin due to antibiotic resistance pattern. * Leidy Fong - 07/13/2024 8:13 AM EDT Images from the original note were not included. [facility] Medicine Progress Note Patient info: Name: Oksana Betancourt : 1965 PCP: Gaudencio Scales DO PCP phone number: [phone] Date of Admission: 07/09/2024 ( Hospital Day 4 days ) Attending:Elda Gaxiola MD ID: Oksana Betancourt is a 58 y.o. female with PMH significant for ASCVD s/p CRIS x7, AV stenosis s/preplacement, hypothyroidism, PAF on Eliquis, hx of Hodgkin's lymphoma in her 20s s/p mantle radiation therapy, and triple negative breast cancer with known met to [address] planned for upcoming prophylactic bilateral mastectomy presenting as a transfer from [facility] where she presented with nausea,vomiting, and RUQ pain. 24 Hour Events/Subjective: -NAEO -She states that abdominal pain and nausea has improved -Having bowel movements -She is eating and tolerating diet -Patient denied any chest pain, palpitations, shortness of breath, cough, diarrhea, dysuria, numbness or tingling. Objective: Vitals Last value Range last 24 hrs Temperature Temp: 36.8 ??C (98.2 ??F) Temp: [36.6 ??C (97.9 ??F)-37 ??C (98.6 ??F)] Heart Rate Heart Rate: 87 Heart Rate: [85-87] Blood Pressure BP: 136/69 BP: (136-161)/(61-71) Art Line BP BP (Arterial Line): -- MAP (NBP): [90 mmHg-101 mmHg] Respiratory Rate Resp: 18 Resp: [16-18] SpO2 SpO2: 95 % SpO2: [94 %-97 %] Oxygen Delivery Oxygen Therapy O2 Device: None (Room air) O2 Flow Rate (L/min): 3 L/min Reason for Oxygen: Patient currently on room air Intake/Output Summary (Last 24 hours) at 07/13/2024 0814 Last data filed at 07/13/2024 0400 Gross per 24 hour Intake 500 ml Output 1600 ml Net -1100 ml Last Bowel Movement: 07/11/24 Patient Vitals for the past 168 hrs: Weight 07/09/24 0100 92.6 kg (204 lb 3.2 oz) Admit wt: 92.62 kg Physical Exam: Gen: in bed in NAD; alert, oriented, conversant HEENT: anicteric, EOMI intact CV: RRR, no murmurs/rubs/gallops Resp: CTAB, no crackles/wheezes/ronchi, normal work of breathing Abd: normal bowel sounds, soft, mildly TTP RUQ, no rebound or guarding Ext: 2+ distal pulses, no pedal edema Neuro: no focal deficits noted, moves all extremities spontaneously Skin: no rashes, lesions, or ulcerations noted Lines/Drains/Airways Lines: Implanted Port 03/23/24 1443 Single Lumen infraclavicular fossa, right (Active) Port Accessed Date 05/29/24 05/29/24 1030 Port Accessed Time 72904/17/24 0700 Access Needle 19 gauge;3/4 in length 04/17/24 07 Pain Prevention intradermal injection 04/17/24 07 Indication/Daily Review of Necessity Medications known to cause phlebitis (vasopressors, concentrated electrolytes, TPN, chemotherapy) 05/29/24 1030 Site Preparation/Maintenance dressing: dry and intact 05/29/24 1154 Lumen Patency/Care flushed without difficulty;blood return present 05/29/24 1154 Phlebitis 0-->no symptoms 05/29/24 1154 Infiltration 0-->no symptoms 05/29/24 1154 Site Signs/Symptoms no redness;no swelling;no warmth;no pain 03/28/24 0726 Vascular Access Port Interventions blood specimen obtained and sent to lab 04/17/24 07 Port De-access Date 05/08/24 05/08/24 1230 Port De-Access Time 1408 04/17/24 1408 Port De-Access Indication infusion complete 05/08/24 1230 PIV 07/09/24 0000 20 gauge median cubital vein (antecubital fossa), left (Active) Indication/Daily Review of Necessity medication therapy intermittent;fluid therapy continuous 07/09/24 09 Site Preparation/Maintenance dressing: dry and intact 07/09/24 1000 Securement catheter stabilization device, secured with 07/09/24 09 Patency/Maintenance flushed without difficulty;alcohol impregnated cap applied 07/09/24 1000 Phlebitis 0-->no symptoms 07/09/24 1000 Infiltration 0-->no symptoms 07/09/24 1000 Labs: Recent Labs 07/13/240 07/12/24 0834 07/11/24 0408 07/10/24 0526 07/09/24 0502 WBC 10.72* 9.66* 11.57* 10.15* 9.89* HGB 8.6* 8.6* 8.2* 8.1* 8.0* HCT 26.6* 27.3* 25.2* 24.5* 24.8* PLATELET 322 324 375* 412* 441* MCV 91.7 95.5* 92.6 92.1 94.7* Recent Labs 07/13/240 07/12/240 07/11/24 0408 07/10/24 0526 07/10/24 0215 07/09/24 1610 NA 141 143 142 142 -- 142 CL 99 102 102 102 -- 100 CO2 29 28 25 25 -- 23 K 3.6 3.2* 3.6 3.7 -- 3.7 PHOS 3.0 2.8 2.8 -- 3.7 -- CALCIUM 9.5 8.9 8.9 9.0 -- 9.6 BUN 21* 23* 35* 39* -- 39* CREATININE 2.38* 2.16* 2.84* 3.12* -- 3.37* LFTs Recent Labs 07/13/240 07/12/24 0410 07/11/24 0408 07/10/24 0526 07/09/24 0502 PROT 8.0 7.1 7.9 7.5 7.6 ALBUMIN 3.1* 2.8* 3.0* 3.2 3.1* AST 187* 146* 145* 124* 124* ALT 80* 65* 67* 58* 61* ALKPHOS 2,911* 2,359* 2,593* 2,487* 2,558* BILITOT 1.3 1.2 1.2 1.2 1.2 Endocrine Recent Labs 06/01/24 0144 04/17/24 0729 03/28/24 0724 11/28/23 1110 TSH 0.60 3.58 3.34 0.51 Microbiology: Microbiology Results (Last 30 days) Procedure Component Value Units Date/Time Urine culture [[id number]] (Abnormal) (Susceptibility) Collected: 07/09/24924 Lab Status: Final result Specimen: Urine, Clean Catch Updated: 07/11/24625 Urine Culture Greater than 100,000 cfu/ml Enterococcus faecium Susceptibility Enterococcus faecium VITEK 2 METHOD Ampicillin Resistant Ciprofloxacin Resistant Levofloxacin Resistant Nitrofurantoin Intermediate Penicillin Resistant Tetracycline Resistant Vancomycin Susceptible Imaging: Results for orders placed or performed during the hospital encounter of 07/09/24 US Retroperitoneal Complete (Exam End: 07/09/2024 10:53 AM) Result Value WORKSTATION ID [id number] Impression 1. Slightly limited exam with no evidence of hydronephrosis or nephrolithiasis. 2. Stable mild right renal atrophy. I have personally reviewed the image(s) and the resident's interpretation and agree with the findings, David Alvarado MD at 07/09/2024 11:07 AM Thank you for letting us participate in the care of this patient. If you are a health care provider and have any questions regarding this report, please contact the number above. For patients who have questions, please contact the health primary care coordinator that requested your imaging first. David Alvarado, Staff Physician Electronically Signed Final Report 07/09/2024 11:16 am US Abdomen Limited (Exam End: 07/09/2024 11:16 AM) Result Value WORKSTATION ID [id number] Impression 1. Normal hepatic parenchymal echogenicity and contour. [...] resident's interpretation and agree with the findings, David Alvarado MD at 07/09/2024 11:45 AM Thank you for letting us participate in the care of this patient. If you are a health care provider and have any questions regarding this report, please contact the number above. For patients who have questions, please contact the health primary care coordinator that requested your imaging first. David Alvarado, Staff Physician Electronically Signed Final Report 07/09/2024 11:53 am MRI Cholangiopancreatography WO Contrast (Exam End: 07/09/2024 10:28 PM) Result Value WORKSTATION ID [id number] Impression Bile duct ectasia with CBD measuring up to [address] evident choledocholithiasis. Thank you for letting us participate in the care of this patient. If you are a health care provider and have any questions regarding this report, please contact the number below. For patients who have questions please contact the health primary care coordinator that requested your imaging first. imaging reports: CTH: no acute intracranial abnormality CXR: mild interstitial pattern to the chest. Pulm edema vs. Atypical infection. Sclerosis to mid left clavicle. CT AP w/o: gas in the distal esophagus which can be seen with reflux. There is some wall prominenceto the distal esophagus which can be seen with inflammation/esophagitis. CBD is measuring dilated. This may be secondary to the patient's cholecystectomy status, however, correlation with lab values s uggested. Moderate amount of stool in the colon which can be seen with constipation. There is hyperdensity in the TI, which may be related to ingested products but should be correlated with any concern for blood products. Urinary bladder wall prominence. This can be seen with infection or underdistention. Lesions in the adrenal gland which do not fulfill criteria for adenomas. An adrenal mass protocol MRI is recommended for further evaluation. Nonspecifict 5 mm left pulmonary nodule, unchanged from prior examination. Comparison with older imaging studies, if available, would be beneficial. Medications Scheduled Meds: apixaban 5 mg Oral BID multivitamin with minerals 1 tablet Oral Daily atorvastatin 80 mg Oral Daily at Noon clopidogreL 75 mg Oral Daily lamoTRIgine 100 mg Oral BID levothyroxine 100 mcg Oral QAM metoprolol succinate XL 50 mg Oral BID pantoprazole EC 40 mg Oral Daily QUEtiapine 150 mg Oral Nightly torsemide 20 mg Oral Daily sodium chloride 0.9 % (flush) 5 mL Intravenous BID baclofen 5 mg Oral BID white petrolatum-mineral oiL Topical (Top) Daily senna-docusate 2 tablet Oral BID polyethylene glycoL (MIRALAX) oral powder 17 g Oral Daily PRN Meds:ipratropium-albuteroL, vancomycin- intermittent dosing per levels, bisacodyL, ondansetron,magnesium hydroxide, sodium chloride 0.9 % (flush), lidocaine, melatonin, naloxone, oxyCODONE OR oxyCODONE, oxyCODONE, acetaminophen Assessment & Plan: Oksana Betancourt is a 58 y.o. female with PMH significant for ASCVD s/p CRIS x7, AV stenosis s/p replacement, hypothyroidism, PAF on Eliquis, hx of Hodgkin's lymphoma in her 20s s/p mantle radiation therapy, and triple negative breast cancer with known met to [address] planned for upcoming prophylactic bilateral mastectomy presenting as a transfer from [facility] where she presented with nausea, vomiting, and RUQ pain. Labs at OSH remarkable for T bili 1.62, AST 172, ALT 93, alk phos 4732 with moderately dilated CBD on CT AP, overall concerning for obstructive biliary process. Right upper quadrant ultrasound was performed here which showed CBD 1 cm, likely normal and nonspecific in the settingof prior cholecystectomy. GGT was also noted to be elevated to 2038 prompting further evaluation with MRCP as recommended by GI. MRCP showed bile duct ectasia with CBD showing up to 11 mm no evidenceof choledocholithiasis. EUS with no lesions in esophagus or stomach, no significant CBD or pancreatic pathology. Alk phos has remained elevated on admission without clear etiology with current workup. Heme/onc recommends considering Pembrolizumab-induced cholangiopathy on differential. If suspicious for this diagnosis and no improvement in Alk phos levels, they recommend starting Prednisolone 1mg/kg. Will discuss with GI as well. Patient was also noted to have sclerosis to mid left clavicle on CXR at OSH. Bony mets could help to explain elevation in alk phos. Oncology has been consulted for guidance on imaging preference especially in the setting of planned upcoming mastectomy as this could record changer. Hospitalization has been relayed to surgical team and mastectomy cancelled for the time being. Oncology recommendsno further inpatient workup of possible bony metastasis. OSH labs also remarkable for acute JONATHAN with BUN 43, creatinine 5.7. UA concerning for infection andpatient was started on IV Zosyn. Patient was also noted to be retaining urine on bladder ultrasoundand required straight catheterization x 1. Retroperitoneal ultrasound showed no evidence of hydronep hrosis. Creatinine improving with fluid resuscitation and treatment of UTI. Will continue to BladderScan periodically to ensure she is not retaining. Urine culture resulted with greater than 100,000 CFU per mL E faecium. Antibiotics transitioned to Vancomycin with urine cx showing susceptibility. Anticipate 5 day treatment course for simple cystitis. #RUQ pain #Elevated alk phos/GGT -Alk phos 2558 on admission >> 2911 today -S/p cholecystectomy -GI following -RUQUS: CBD 1 cm -MRCP: bile duct ectasia with CBD 11mm, no evidence of cholelithiasis -EUS: no lesions in esophagus or stomach, no significant CBD or pancreatic pathology -Pending: liver/kidney microsome type 1 antibody -AMA, Anti-Sm negative -Zofran PRN -Consider Pembrolizumab-induced cholangiopathy #JONATHAN #E faecium UTI, simple cystitis #Urinary retention -Creatinine 5.7 at OSH >> 2.38 today -Nephrology consult -S/p IVF resuscitation with improvement -S/p IV Zosyn -RP US: no hydronephrosis -S/p straight cath x1 for retention likely 2/2 UTI -Bladder scan qshift or if changes in UO -CTM, if improvement plateaus will involve nephro -C/w Vancomycin (07/10-07/14) #ASCVD with h/o [place] and PCI #Non-rheumatic aortic valve stenosis - S/p Edd 2021 #Ischemic cardiomyopathy -Follows with Dr. Montenegro -C/w statin -C/w plavix -C/w torsemide #Bipolar disorder -C/w lamictal, seroquel #Hypothyroidism -C/w home synthroid #GERD -C/w home PPI #PAF -Hold home Eliquis, can resume post procedurally -C/w home metoprolol #Malignant neoplasm of upper-outer quadrant of left breast in female, estrogen receptor negative - Follows with Dr. Prater #Sclerosis of mid left clavicle on CXR -Hold home percocet -C/w home baclofen -Oxycodone scale, PRN tylenol -Onc consulted - no further inpatient workup -MRI adrenal mass protocol in & out of phase imaging outpatient for work up of small bilateral adrenal nodules -Gen surg notified of admission; mastectomy delayed for time being #Routine Diet: Regular diet DVT Prophylaxis: DOAC SCD GI Prophylaxis: PPI Code Status: Attempt Cardiopulmonary Resuscitation - Inpatient Dispo: Pending clinical course [facility] 07/13/24 8:14 AM * Valeri Bah RN - 07/12/2024 6:55 PM EDT Patient Summary Reason for admission: Abdominal pain, N/V Relevant PMH: Breast cancer on chemo, CAD s/p CRIS x 7, CHF, aortic valve stenosis s/p replacement, hypothyroidism, paroxysmal A-fib on Eliquis Significant 24 hour events: 07/12 AM: A&Ox4, VSS on RA. Voiding spontaneously w/out difficulty, up to toilet. Mediport accessed today per pt preference, R PIV removed per policy d/t inability to flush. No c/o nausea or abdominal pain. Endorses neck pain managed with home pain regimen. Action List Trend LFTs IV vanco Discharge 07/14? * Amanda Wall RD - 07/12/2024 4:43 PM EDT Nutrition Progress Note Oksana Betancourt is a 58 y.o. female presenting with abdominal pain, nausea and vomiting. Chronic medical conditions include breast cancer, CAD s/p CRIS x7, aortic valve stenosis s.p replacement, hypothyroidism, and PAF on Eliquis. 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 States she has been unable to eat or drink anything since symptom onset and on 07/07 she developed RUQ pain. She describes the pain as that waxing and waning, nagging in quality and rates it a 5/10 in intensity . Associated sxms include emesis ~ 10 times and fatigue. Denies diarrhea, constipation, fevers , chills hematemesis, or coffee ground emesis. Interval History No data found. Reason for Assessment: Follow-up Nutrition Recommendations: Regular Diet High Protein Snack List provided Encourage double proteins Assistance with meal ordering appreciated Record % PO intake Continue daily multivitamin Monitor and replete lytes as indicated - 40 mEq KCL given today Monitor BM Twice weekly weights to trend - standing scale as able Severe protein calorie malnutrition identified as outlined below. Current Nutrition Regimen: Active Orders Diet Regular diet Frequency: Effective Now Number of Occurrences: Until Specified Assessment: Lab Results Component Value Date NA 143 07/12/2024 NA 142 04/17/2024 K 3.2 (L) 07/12/2024 K 4.5 04/17/2024 CL 102 07/12/2024 CL 106 04/17/2024 CO2 28 07/12/2024 CO2 25 04/17/2024 BUN 23 (H) 07/12/2024 BUN 21 (H) 04/17/2024 CREATININE 2.16 (H) 07/12/2024 CREATININE 1.36 (H) 04/17/2024 ESTGFR 45 (L) 04/17/2024 MAGNESIUM 0.87 06/05/2024 MAGNESIUM 0.99 12/04/2023 CALCIUM 8.9 07/12/2024 CALCIUM 9.3 04/17/2024 PHOS 2.8 07/12/2024 PHOS 5.2 (H) 12/04/2023 AST 146 (H) 07/12/2024 AST 18 04/17/2024 ALT 65 (H) 07/12/2024 ALT 16 04/17/2024 ALKPHOS 2,359 (H) 07/12/2024 ALKPHOS 145 (H) 04/17/2024 BILITOT 1.2 07/12/2024 BILITOT 0.2 04/17/2024 BILIDIR <0.2 06/01/2024 BILIDIR 0.2 11/28/2023 TRIG 208 06/01/2024 TRIG 93 11/29/2023 HA1C 5.3 11/29/2023 No results found for: POCGLU Patient Lines/Drains/Airways Status Active Nutritional LDAs Name Placement date Placement time Site Days PIV 07/09/24 0000 20 gauge median cubital vein (antecubital fossa), left 07/09/24 0000 -- 3 Implanted Port 03/23/24 1443 Single Lumen infraclavicular fossa, right 03/23/24 1443 -- 111 Oxygen Therapy / Airway Device: None (Room air) Shift Pressure Injury Prevention Occiput: No Injury Thoracic Spine: No Injury Sacral: No Injury Ischial - left: No Injury Ischial - right: No Injury Heel - left: No Injury Heel - right: No Injury Elbow - left: No Injury Elbow - right: No Injury Device Sites: O2 sat monitor, IV sites Last Bowel Movement: 07/11/24 Intake/Output Summary (Last 24 hours) at 07/12/2024 1643 Last data filed at 07/12/2024 1216 Gross per 24 hour Intake 3600 ml Output 2100 ml Net 1500 ml Relevant medications: levothyroxine, metoprolol succinate, Thera M, Protonix, Miralax, Pericolace, torsemide, 40mEq KCL (given 07/12) Anthropometrics: Admit Weight: 92.62 kg Estimated body mass index is 33.46 kg/m?? as calculated from the following: Height as of this encounter: 166.4 cm (5' 5.5). Weight as of this encounter: 92.6 kg (204 lb 3.2 oz). Sterling Body Weight (IBW) (kg): 57.95 Weight Loss: unintentional Duration of Weight Loss: 3 Months Weight Lost: 13.6kg % of Weight Lost: 12.8% Wt Readings from Last 10 Encounters: 07/09/24 92.6 kg (204 lb 3.2 oz) 07/02/24 94.3 kg (208 lb) 06/12/24 99.1 kg (218 lb 8 oz) 06/05/24 96 kg (211 lb 11.2 oz) 05/29/24 102.5 kg (226 lb) 05/08/24 104.1 kg (229 lb 6.4 oz) 04/17/24 106.2 kg (234 lb 2.1 oz) 03/28/24 105.7 kg (233 lb 0.4 oz) 03/14/24 106.2 kg (234 lb 2.1 oz) 02/28/24 110.7 kg (244 lb 0.8 oz) Patient Vitals for the past 168 hrs: Weight 07/09/24 0100 92.6 kg (204 lb 3.2 oz) Weight Source: Reported Estimated / Assessed Needs: Fluid Requirements: Estimated Fluid Requirement Method: Weight Based Method Weight Based Method: 30 Weight Based Calculation: 2778 mL Kcal / K - 2315 Kcal (20 Kcal/Kg - 25 Kcal/Kg) Estimated Protein Needs: 70 g - 87 g (1.2 g/Kg - 1.5 g/Kg) Nutrition intake and intake history / interview: 07/12: Met with Oksana at bedside for follow up. She reports no nausea or emesis today, which is a huge improvement. She reports that her appetite is getting better, but has been NPO frequently this week. She notes that she ate 100% of breakfast today (604kcal and 39g protein). She dislikes CIB andasked service writer to remove. [employer] encouraged adequate protein intake, reviewed protein sources, and provided high protein snack list. Oksana declined snacks at this time, but will work on protein intake. 07/10: Nutrition consulted for malnutrition evaluation, service writer met with Oksana at bedside. Oksana reports nausea and emesis since 07/04 (emesis 10x/day). She has been unable to tolerate po intake until yesterday, when she was able to eat pudding, fruit, and a baked potato at dinner, she reports this is the most she has eaten since 07/04 (<50% EER x 5 days). She also notes nausea since start of chemotherapy ~3 months ago. She has been eating less during this time and weight has gone down, nowwith 13.6kg lost since 04/17/24, 12.8% weight loss in 3 months is clinically significant. NFPE findings show mild lean muscle wasting. She denies difficulty chewing and swallowing. NKFA. She takes a daily multivitamin, fish oil, and iron at home. Now that she is able to tolerate PO intake, we discussed ONS, she dislikes Ensure/Boost, but is agreeable to trial of chocolate CIB 1x/day. No data found. Nutrition Focused Physical Exam: Performed (07/10/24 by HD) . Subcutaneous Fat Loss Orbital region: None present Upper arm region (triceps/biceps): None present Thoracic and Lumbar regions (ribs, lower back, and maxillary line): None present Lean Muscle Loss Sikhism region (temporalis muscle): Mild Clavicle bone region (pectoralis major): Mild Dorsal hand (interosseous muscle): None present Shoulder (deltoid): Mild Scapular bone region (latissimus dorsi, trapezius muscles): Not assessed Thigh region (quadriceps muscle): None present Posterior calf region (gastrocnemius muscle): None present Fluid Accumulation Fluid Accumulation: Not assessed Malnutrition Diagnosis: Identified: less than or equal to 50% of estimated energy requirement for greater than or equal to 5 days, greater than 7.5% weight loss in 3 months, and Mild Lean Muscle Loss is consistent with Severe protein-calorie malnutrition in the setting of acute illness or injury (Navjot witt al, JPEN J Parenteral Enteral Nutr. 2011; 36(3): 273-83) Nutrition to continue to follow up while inpatient Amanda Tadeo, MS, RDN, LD Clinical Nutrition * Stacia Bhat, PT - 07/12/2024 3:19 PM EDT Document Type: contact Total Minutes, Physical Therapy: 0 Reason: Pt chart reviewed and met with pt today to discuss any IP PT needs. Pt reports that she is independent in room with no PT concerns for a discharge home once medically ready. Pt reports she has good support if needed, brother lives in same apartment complex Pt previously independent at home with no AD, receives home nursing 2x/week for medications and vitals. Encouraged pt to continue OOB to bathroom and ambulating on unit with mobility tech or nursing staff to maintain endurance and strength. Will continue to monitor for any PT needs that may arise prior to discharge. Pager: [phone] Stacia Bhat, PT Date: 07/12/24 Physical Therapy Rehabilitation Department * Elda Gaxiola MD - 07/12/2024 1:59 PM EDT Images from the original note were not included. Hospital Medicine Progress Note Patient info: Name: Oksana Betancourt : 1965 PCP: Gaudencio Scales DO PCP phone number: [phone] Date of Admission: 07/09/2024 ( Hospital Day 3 days ) Attending:Elda Gaxiola MD ID: Oksana Betancourt is a 58 y.o. female with PMH significant for ASCVD s/p CRIS x7, AV stenosis s/preplacement, hypothyroidism, PAF on Eliquis, hx of Hodgkin's lymphoma in her 20s s/p mantle radiation therapy, and triple negative breast cancer with known met to [address] planned for upcoming prophylactic bilateral mastectomy presenting as a transfer from [facility] where she presented with nausea,vomiting, and RUQ pain. 24 Hour Events/Subjective: -NAEO -Patient states that abdominal pain/nausea is not bothering her this AM. She denies urinary symptoms, eating well, having bowel movements. -Patient denied any chest pain, palpitations, shortness of breath, cough, diarrhea, dysuria, numbness or tingling. Objective: Vitals Last value Range last 24 hrs Temperature Temp: 36.7 ??C (98.1 ??F) Temp: [36.1 ??C (97 ??F)-36.9 ??C (98.4 ??F)] Heart Rate Heart Rate: 56 Heart Rate: [56-67] Blood Pressure BP: 165/68 BP: (102-165)/(43-68) Art Line BP BP (Arterial Line): -- MAP (NBP): [71 mmHg-92 mmHg] Respiratory Rate Resp: 16 Resp: [16-18] SpO2 SpO2: 100 % SpO2: [92 %-100 %] Oxygen Delivery Oxygen Therapy O2 Device: None (Room air) O2 Flow Rate (L/min): 3 L/min Reason for Oxygen: Patient currently on room air Intake/Output Summary (Last 24 hours) at 07/12/2024 1359 Last data filed at 07/12/2024 1216 Gross per 24 hour Intake 3700 ml Output 2750 ml Net 950 ml Last Bowel Movement: 07/11/24 Patient Vitals for the past 168 hrs: Weight 07/09/24 0100 92.6 kg (204 lb 3.2 oz) Admit wt: 92.62 kg Physical Exam: Gen: in bed in NAD; alert, oriented, conversant HEENT: anicteric, EOMI intact CV: RRR, no murmurs/rubs/gallops Resp: CTAB, no crackles/wheezes/ronchi, normal work of breathing Abd: normal bowel sounds, soft, non-tender, no rebound or guarding Ext: 2+ distal pulses, no pedal edema Neuro: no focal deficits noted, moves all extremities spontaneously Skin: no rashes, lesions, or ulcerations noted Lines/Drains/Airways Lines: Implanted Port 03/23/24 1443 Single Lumen infraclavicular fossa, right (Active) Port Accessed Date 05/29/24 05/29/24 1030 Port Accessed Time 0730 04/17/24 0700 Access Needle 19 gauge;3/4 in length 04/17/24 0700 Pain Prevention intradermal injection 04/17/24 07 Indication/Daily Review of Necessity Medications known to cause phlebitis (vasopressors, concentrated electrolytes, TPN, chemotherapy) 05/29/24 1030 Site Preparation/Maintenance dressing: dry and intact 05/29/24 1154 Lumen Patency/Care flushed without difficulty;blood return present 05/29/24 1154 Phlebitis 0-->no symptoms 05/29/24 1154 Infiltration 0-->no symptoms 05/29/24 1154 Site Signs/Symptoms no redness;no swelling;no warmth;no pain 03/28/24 0726 Vascular Access Port Interventions blood specimen obtained and sent to lab 04/17/24 0700 Port De-access Date 05/08/24 05/08/24 1230 Port De-Access Time 1408 04/17/24 1408 Port De-Access Indication infusion complete 05/08/24 1230 PIV 07/09/24 0000 20 gauge median cubital vein (antecubital fossa), left (Active) Indication/Daily Review of Necessity medication therapy intermittent;fluid therapy continuous 07/09/24 0900 Site Preparation/Maintenance dressing: dry and intact 07/09/24 1000 Securement catheter stabilization device, secured with 07/09/24 0900 Patency/Maintenance flushed without difficulty;alcohol impregnated cap applied 07/09/24 1000 Phlebitis 0-->no symptoms 07/09/24 1000 Infiltration 0-->no symptoms 07/09/24 1000 Labs: Recent Labs 07/12/24 0834 07/11/24 0408 07/10/24 0526 07/09/24 0502 WBC 9.66* 11.57* 10.15* 9.89* HGB 8.6* 8.2* 8.1* 8.0* HCT 27.3* 25.2* 24.5* 24.8* PLATELET 324 375* 412* 441* MCV 95.5* 92.6 92.1 94.7* Recent Labs 07/12/24 0410 07/11/24 0408 07/10/24 0526 07/10/24 0215 07/09/24 1610 07/09/24 0502 NA 143 142 142 -- 142 142 CL 102 102 102 -- 100 103 CO2 28 25 25 -- 23 23 K 3.2* 3.6 3.7 -- 3.7 3.8 PHOS 2.8 2.8 -- 3.7 -- -- CALCIUM 8.9 8.9 9.0 -- 9.6 9.2 BUN 23* 35* 39* -- 39* 37* CREATININE 2.16* 2.84* 3.12* -- 3.37* 4.07* LFTs Recent Labs 07/12/24 0410 07/11/24 0408 07/10/24 0526 07/09/24 0502 PROT 7.1 7.9 7.5 7.6 ALBUMIN 2.8* 3.0* 3.2 3.1* AST 146* 145* 124* 124* ALT 65* 67* 58* 61* ALKPHOS 2,359* 2,593* 2,487* 2,558* BILITOT 1.2 1.2 1.2 1.2 Endocrine Recent Labs 06/01/24 0144 04/17/24 0729 03/28/24 0724 11/28/23 1110 TSH 0.60 3.58 3.34 0.51 Microbiology: Microbiology Results (Last 30 days) Procedure Component Value Units Date/Time Urine culture [[id number]] (Abnormal) (Susceptibility) Collected: 07/09/2401 Lab Status: Final result Specimen: Urine, Clean Catch Updated: 07/11/24 06 Urine Culture Greater than 100,000 cfu/ml Enterococcus faecium Susceptibility Enterococcus faecium VITEK 2 METHOD Ampicillin Resistant Ciprofloxacin Resistant Levofloxacin Resistant Nitrofurantoin Intermediate Penicillin Resistant Tetracycline Resistant Vancomycin Susceptible Imaging: Results for orders placed or performed during the hospital encounter of 07/09/24 US Retroperitoneal Complete (Exam End: 07/09/2024 10:53 AM) Result Value WORKSTATION ID [id number] Impression 1. Slightly limited exam with no evidence of hydronephrosis or nephrolithiasis. 2. Stable mild right renal atrophy. I have personally reviewed the image(s) and the resident's interpretation and agree with the findings, David Alvarado MD at 07/09/2024 11:07 AM Thank you for letting us participate in the care of this patient. If you are a health care provider and have any questions regarding this report, please contact the number above. For patients who have questions, please contact the health primary care coordinator that requested your imaging first. David Alvarado, Staff Physician Electronically Signed Final Report 07/09/2024 11:16 am US Abdomen Limited (Exam End: 07/09/2024 11:16 AM) Result Value WORKSTATION ID [id number] Impression 1. Normal hepatic parenchymal echogenicity and contour. [...] resident's interpretation and agree with the findings, David Alvaardo MD at 07/09/2024 11:45 AM Thank you for letting us participate in the care of this patient. If you are a health care provider and have any questions regarding this report, please contact the number above. For patients who have questions, please contact the health primary care coordinator that requested your imaging first. David Alvarado, Staff Physician Electronically Signed Final Report 07/09/2024 11:53 am MRI Cholangiopancreatography WO Contrast (Exam End: 07/09/2024 10:28 PM) Result Value WORKSTATION ID [id number] Impression Bile duct ectasia with CBD measuring up to [address] evident choledocholithiasis. Thank you for letting us participate in the care of this patient. If you are a health care provider and have any questions regarding this report, please contact the number below. For patients who have questions please contact the health primary care coordinator that requested your imaging first. imaging reports: CTH: no acute intracranial abnormality CXR: mild interstitial pattern to the chest. Pulm edema vs. Atypical infection. Sclerosis to mid left clavicle. CT AP w/o: gas in the distal esophagus which can be seen with reflux. There is some wall prominenceto the distal esophagus which can be seen with inflammation/esophagitis. CBD is measuring dilated. This may be secondary to the patient's cholecystectomy status, however, correlation with lab values s uggested. Moderate amount of stool in the colon which can be seen with constipation. There is hyperdensity in the TI, which may be related to ingested products but should be correlated with any concern for blood products. Urinary bladder wall prominence. This can be seen with infection or underdistention. Lesions in the adrenal gland which do not fulfill criteria for adenomas. An adrenal mass protocol MRI is recommended for further evaluation. Nonspecifict 5 mm left pulmonary nodule, unchanged from prior examination. Comparison with older imaging studies, if available, would be beneficial. Medications Scheduled Meds: apixaban 5 mg Oral BID lidocaine 6 mL Topical (Top) Once multivitamin with minerals 1 tablet Oral Daily atorvastatin 80 mg Oral Daily at Noon clopidogreL 75 mg Oral Daily lamoTRIgine 100 mg Oral BID levothyroxine 100 mcg Oral QAM metoprolol succinate XL 50 mg Oral BID pantoprazole EC 40 mg Oral Daily QUEtiapine 150 mg Oral Nightly torsemide 20 mg Oral Daily sodium chloride 0.9 % (flush) 5 mL Intravenous BID baclofen 5 mg Oral BID white petrolatum-mineral oiL Topical (Top) Daily senna-docusate 2 tablet Oral BID polyethylene glycoL (MIRALAX) oral powder 17 g Oral Daily PRN Meds:ipratropium-albuteroL, vancomycin- intermittent dosing per levels, bisacodyL, ondansetron,magnesium hydroxide, sodium chloride 0.9 % (flush), lidocaine, melatonin, naloxone, oxyCODONE OR oxyCODONE, oxyCODONE, acetaminophen Assessment & Plan: Oksana Betancourt is a 58 y.o. female with PMH significant for ASCVD s/p CRIS x7, AV stenosis s/p replacement, hypothyroidism, PAF on Eliquis, hx of Hodgkin's lymphoma in her 20s s/p mantle radiation therapy, and triple negative breast cancer with known met to [address] planned for upcoming prophylactic bilateral mastectomy presenting as a transfer from [facility] where she presented with nausea, vomiting, and RUQ pain. Labs at OSH remarkable for T bili 1.62, AST 172, ALT 93, alk phos 4732 with moderately dilated CBD on CT AP, overall concerning for obstructive biliary process. Right upper quadrant ultrasound was performed here which showed CBD 1 cm, likely normal and nonspecific in the settingof prior cholecystectomy. GGT was also noted to be elevated to 2038 prompting further evaluation with MRCP as recommended by GI. MRCP showed bile duct ectasia with CBD showing up to 11 mm no evidenceof choledocholithiasis. EUS without significant pathology in the CBD or pancreas to explain alk phos/GGT elevation. Patient was also noted to have sclerosis to mid left clavicle on CXR at OSH. Bony mets could help to explain elevation in alk phos. Oncology has been consulted for guidance on imaging preference especially in the setting of planned upcoming mastectomy as this could record changer. Plan for further work up outpatient. Hospitalization has been relayed to surgical team and mastectomy cancelled for the time being. OSH labs also remarkable for acute JONATHAN with BUN 43, creatinine 5.7. UA concerning for infection andpatient was started on IV Zosyn. Patient was also noted to be retaining urine on bladder ultrasoundand required straight catheterization x 1. Retroperitoneal ultrasound showed no evidence of hydronep hrosis. Creatinine improving with fluid resuscitation and treatment of UTI. Will continue to BladderScan periodically to ensure she is not retaining. Urine culture resulted with greater than 100,000 CFU per mL E faecium. Antibiotics transitioned to Vancomycin with urine cx showing susceptibility. Anticipate 5 day treatment course for simple cystitis. #RUQ pain #Elevated alk phos/GGT -S/p cholecystectomy -GI consulted -RUQUS: CBD 1 cm -MRCP: bile duct ectasia with CBD 11mm, no evidence of cholelithiasis -Pending: mitochondrial antibody, smooth muscle antibody, liver/kidney microsome type 1 antibody -Zofran PRN -EUS: no significant pathology #JONATHAN #E faecium UTI, simple cystitis #Urinary retention -Creatinine 5.7 at OSH -S/p IVF resuscitation with improvement -S/p IV Zosyn -RP US: no hydronephrosis -S/p straight cath x1 for retention likely 2/2 UTI -Bladder scan qshift or if changes in UO -CTM, if improvement plateaus will involve nephro -C/w Vancomycin (07/10 -07/14) #ASCVD with h/o [place] and PCI #Non-rheumatic aortic valve stenosis - S/p Edd 2021 #Ischemic cardiomyopathy -Follows with Dr. Montenegro -C/w statin -C/w plavix -C/w torsemide #Bipolar disorder -C/w lamictal, seroquel #Hypothyroidism -C/w home synthroid #GERD -C/w home PPI #PAF -Resume home apixaban -C/w home metoprolol #Malignant neoplasm of upper-outer quadrant of left breast in female, estrogen receptor negative - Follows with Dr. Prater #Sclerosis of mid left clavicle on CXR #Small bilateral adrenal nodules -Hold home percocet -C/w home baclofen -Oxycodone scale, PRN tylenol -Onc consulted, follow up sclerotic lesion outpatient -MRI adrenal mass protocol in & out of phase imaging outpatient for work up of small bilateral adrenal nodules -Gen surg notified of admission; mastectomy delayed for time being #Routine Diet: Regular diet DVT Prophylaxis: DOAC SCD GI Prophylaxis: PPI Code Status: Attempt Cardiopulmonary Resuscitation - Inpatient Dispo: Pending clinical course Elad Gaxiola MD [facility] Medicine 07/12/24 1:59 PM IPI Certification I certify that I am a [facility] credentialed attending provider with admitting privileges and that the patient meets or has met medical necessity to require an inpatient IPI level of care meeting a minimumof two midnights or is on the [facility] inpatient only procedure list (status C) due to: acute kidney injury necessitating close monitoring of fluid balance such as intravenous fluids and/or titration of medication to achieve optimal effect and minimize the chance of immediate or severe side effects and E. Faecium UTI requiring IV Vancomycin due to antibiotic resistance pattern. * Leidy Fong - 07/12/2024 7:29 AM EDT Images from the original note were not included. [facility] Medicine Progress Note Patient info: Name: Oksana Betancourt : 1965 PCP: Gaudencio Scales DO PCP phone number: [phone] Date of Admission: 07/09/2024 ( Hospital Day 3 days ) Attending:Elda Gaxiola MD ID: Oksana Betancourt is a 58 y.o. female with PMH significant for ASCVD s/p CRIS x7, AV stenosis s/preplacement, hypothyroidism, PAF on Eliquis, hx of Hodgkin's lymphoma in her 20s s/p mantle radiation therapy, and triple negative breast cancer with known met to [address] planned for upcoming prophylactic bilateral mastectomy presenting as a transfer from [facility] where she presented with nausea,vomiting, and RUQ pain. 24 Hour Events/Subjective: -NAEO -She states that abdominal pain is mild and denies nausea this AM. States that symptoms improved somewhat with BM this AM. -She is eating and tolerating diet -Patient denied any chest pain, palpitations, shortness of breath, cough, diarrhea, dysuria, numbness or tingling. Objective: Vitals Last value Range last 24 hrs Temperature Temp: 36.7 ??C (98.1 ??F) Temp: [36.1 ??C (97 ??F)-36.9 ??C (98.4 ??F)] Heart Rate Heart Rate: 56 Heart Rate: [56-67] Blood Pressure BP: 165/68 BP: (102-165)/(43-68) Art Line BP BP (Arterial Line): -- MAP (NBP): [71 mmHg-92 mmHg] Respiratory Rate Resp: 16 Resp: [16-18] SpO2 SpO2: 100 % SpO2: [92 %-100 %] Oxygen Delivery Oxygen Therapy O2 Device: None (Room air) O2 Flow Rate (L/min): 3 L/min Reason for Oxygen: Patient currently on room air Intake/Output Summary (Last 24 hours) at 07/12/2024 07 Last data filed at 07/12/2024 07 Gross per 24 hour Intake 3700 ml Output 2100 ml Net 1600 ml Last Bowel Movement: 07/11/24 Patient Vitals for the past 168 hrs: Weight 07/09/24 0100 92.6 kg (204 lb 3.2 oz) Admit wt: 92.62 kg Physical Exam: Gen: in bed in NAD; alert, oriented, conversant HEENT: anicteric, EOMI intact CV: RRR, no murmurs/rubs/gallops Resp: CTAB, no crackles/wheezes/ronchi, normal work of breathing Abd: normal bowel sounds, soft, mildly TTP RUQ, no rebound or guarding Ext: 2+ distal pulses, no pedal edema Neuro: no focal deficits noted, moves all extremities spontaneously Skin: no rashes, lesions, or ulcerations noted Lines/Drains/Airways Lines: Implanted Port 03/23/24 1443 Single Lumen infraclavicular fossa, right (Active) Port Accessed Date 05/29/24 05/29/24 1030 Port Accessed Time 72904/17/24 07 Access Needle 19 gauge;3/4 in length 04/17/24 07 Pain Prevention intradermal injection 04/17/24 0700 Indication/Daily Review of Necessity Medications known to cause phlebitis (vasopressors, concentrated electrolytes, TPN, chemotherapy) 05/29/24 1030 Site Preparation/Maintenance dressing: dry and intact 05/29/24 1154 Lumen Patency/Care flushed without difficulty;blood return present 05/29/24 1154 Phlebitis 0-->no symptoms 05/29/24 1154 Infiltration 0-->no symptoms 05/29/24 1154 Site Signs/Symptoms no redness;no swelling;no warmth;no pain 03/28/24 0726 Vascular Access Port Interventions blood specimen obtained and sent to lab 04/17/24 07 Port De-access Date 05/08/24 05/08/24 1230 Port De-Access Time 1408 04/17/24 1408 Port De-Access Indication infusion complete 05/08/24 1230 PIV 07/09/24 0000 20 gauge median cubital vein (antecubital fossa), left (Active) Indication/Daily Review of Necessity medication therapy intermittent;fluid therapy continuous 07/09/24 09 Site Preparation/Maintenance dressing: dry and intact 07/09/24 1000 Securement catheter stabilization device, secured with 07/09/24899 Patency/Maintenance flushed without difficulty;alcohol impregnated cap applied 07/09/24 1000 Phlebitis 0-->no symptoms 07/09/24 1000 Infiltration 0-->no symptoms 07/09/24 1000 Labs: Recent Labs 07/12/24 0834 07/11/24 0408 07/10/24 0526 07/09/24 0502 WBC 9.66* 11.57* 10.15* 9.89* HGB 8.6* 8.2* 8.1* 8.0* HCT 27.3* 25.2* 24.5* 24.8* PLATELET 324 375* 412* 441* MCV 95.5* 92.6 92.1 94.7* Recent Labs 07/12/24 0410 07/11/24 0408 07/10/24 0526 07/10/24 0215 07/09/24 1610 07/09/24 0502 NA 143 142 142 -- 142 142 CL 102 102 102 -- 100 103 CO2 28 25 25 -- 23 23 K 3.2* 3.6 3.7 -- 3.7 3.8 PHOS 2.8 2.8 -- 3.7 -- -- CALCIUM 8.9 8.9 9.0 -- 9.6 9.2 BUN 23* 35* 39* -- 39* 37* CREATININE 2.16* 2.84* 3.12* -- 3.37* 4.07* LFTs Recent Labs 07/12/24 0410 07/11/24 0408 07/10/24 0526 07/09/24 0502 PROT 7.1 7.9 7.5 7.6 ALBUMIN 2.8* 3.0* 3.2 3.1* AST 146* 145* 124* 124* ALT 65* 67* 58* 61* ALKPHOS 2,359* 2,593* 2,487* 2,558* BILITOT 1.2 1.2 1.2 1.2 Endocrine Recent Labs 06/01/24 0144 04/17/24 0729 03/28/24 0724 11/28/23 1110 TSH 0.60 3.58 3.34 0.51 Microbiology: Microbiology Results (Last 30 days) Procedure Component Value Units Date/Time Urine culture [[id number]] (Abnormal) (Susceptibility) Collected: 07/09/24924 Lab Status: Final result Specimen: Urine, Clean Catch Updated: 07/11/24625 Urine Culture Greater than 100,000 cfu/ml Enterococcus faecium Susceptibility Enterococcus faecium VITEK 2 METHOD Ampicillin Resistant Ciprofloxacin Resistant Levofloxacin Resistant Nitrofurantoin Intermediate Penicillin Resistant Tetracycline Resistant Vancomycin Susceptible Imaging: Results for orders placed or performed during the hospital encounter of 07/09/24 US Retroperitoneal Complete (Exam End: 07/09/2024 10:53 AM) Result Value WORKSTATION ID [id number] Impression 1. Slightly limited exam with no evidence of hydronephrosis or nephrolithiasis. 2. Stable mild right renal atrophy. I have personally reviewed the image(s) and the resident's interpretation and agree with the findings, David Alvarado MD at 07/09/2024 11:07 AM Thank you for letting us participate in the care of this patient. If you are a health care provider and have any questions regarding this report, please contact the number above. For patients who have questions, please contact the health primary care coordinator that requested your imaging first. David Alvarado, Staff Physician Electronically Signed Final Report 07/09/2024 11:16 am US Abdomen Limited (Exam End: 07/09/2024 11:16 AM) Result Value WORKSTATION ID [id number] Impression 1. Normal hepatic parenchymal echogenicity and contour. [...] resident's interpretation and agree with the findings, David Alvarado MD at 07/09/2024 11:45 AM Thank you for letting us participate in the care of this patient. If you are a health care provider and have any questions regarding this report, please contact the number above. For patients who have questions, please contact the health primary care coordinator that requested your imaging first. David Alvarado, Staff Physician Electronically Signed Final Report 07/09/2024 11:53 am MRI Cholangiopancreatography WO Contrast (Exam End: 07/09/2024 10:28 PM) Result Value WORKSTATION ID [id number] Impression Bile duct ectasia with CBD measuring up to [address] evident choledocholithiasis. Thank you for letting us participate in the care of this patient. If you are a health care provider and have any questions regarding this report, please contact the number below. For patients who have questions please contact the health primary care coordinator that requested your imaging first. imaging reports: CTH: no acute intracranial abnormality CXR: mild interstitial pattern to the chest. Pulm edema vs. Atypical infection. Sclerosis to mid left clavicle. CT AP w/o: gas in the distal esophagus which can be seen with reflux. There is some wall prominenceto the distal esophagus which can be seen with inflammation/esophagitis. CBD is measuring dilated. This may be secondary to the patient's cholecystectomy status, however, correlation with lab values s uggested. Moderate amount of stool in the colon which can be seen with constipation. There is hyperdensity in the TI, which may be related to ingested products but should be correlated with any concern for blood products. Urinary bladder wall prominence. This can be seen with infection or underdistention. Lesions in the adrenal gland which do not fulfill criteria for adenomas. An adrenal mass protocol MRI is recommended for further evaluation. Nonspecifict 5 mm left pulmonary nodule, unchanged from prior examination. Comparison with older imaging studies, if available, would be beneficial. Medications Scheduled Meds: vancomycin 750 mg Intravenous Once multivitamin with minerals 1 tablet Oral Daily atorvastatin 80 mg Oral Daily at Noon clopidogreL 75 mg Oral Daily lamoTRIgine 100 mg Oral BID levothyroxine 100 mcg Oral QAM metoprolol succinate XL 50 mg Oral BID pantoprazole EC 40 mg Oral Daily QUEtiapine 150 mg Oral Nightly torsemide 20 mg Oral Daily sodium chloride 0.9 % (flush) 5 mL Intravenous BID baclofen 5 mg Oral BID white petrolatum-mineral oiL Topical (Top) Daily senna-docusate 2 tablet Oral BID polyethylene glycoL (MIRALAX) oral powder 17 g Oral Daily PRN Meds:vancomycin- intermittent dosing per levels, bisacodyL, ondansetron, magnesium hydroxide, sodium chloride 0.9 % (flush), lidocaine, melatonin, naloxone, oxyCODONE OR oxyCODONE, oxyCODONE,acetaminophen Assessment & Plan: Oksana Betancourt is a 58 y.o. female with PMH significant for ASCVD s/p CRIS x7, AV stenosis s/p replacement, hypothyroidism, PAF on Eliquis, hx of Hodgkin's lymphoma in her 20s s/p mantle radiation therapy, and triple negative breast cancer with known met to [address] planned for upcoming prophylactic bilateral mastectomy presenting as a transfer from [facility] where she presented with nausea, vomiting, and RUQ pain. Labs at OSH remarkable for T bili 1.62, AST 172, ALT 93, alk phos 4732 with moderately dilated CBD on CT AP, overall concerning for obstructive biliary process. Right upper quadrant ultrasound was performed here which showed CBD 1 cm, likely normal and nonspecific in the settingof prior cholecystectomy. GGT was also noted to be elevated to 2038 prompting further evaluation with MRCP as recommended by GI. MRCP showed bile duct ectasia with CBD showing up to 11 mm no evidenceof choledocholithiasis. EUS with no lesions in esophagus or stomach, no significant CBD or pancreatic pathology. Patient was also noted to have sclerosis to mid left clavicle on CXR at OSH. Bony mets could help to explain elevation in alk phos. Oncology has been consulted for guidance on imaging preference especially in the setting of planned upcoming mastectomy as this could record changer. Hospitalization has been relayed to surgical team and mastectomy cancelled for the time being. Oncology recommendsno further inpatient workup of possible bony metastasis. OSH labs also remarkable for acute JONATHAN with BUN 43, creatinine 5.7. UA concerning for infection andpatient was started on IV Zosyn. Patient was also noted to be retaining urine on bladder ultrasoundand required straight catheterization x 1. Retroperitoneal ultrasound showed no evidence of hydronep hrosis. Creatinine improving with fluid resuscitation and treatment of UTI. Will continue to BladderScan periodically to ensure she is not retaining. Urine culture resulted with greater than 100,000 CFU per mL E faecium. Antibiotics transitioned to Vancomycin with urine cx showing susceptibility. Anticipate 5 day treatment course for simple cystitis. #RUQ pain #Elevated alk phos/GGT -S/p cholecystectomy -GI consulted -RUQUS: CBD 1 cm -MRCP: bile duct ectasia with CBD 11mm, no evidence of cholelithiasis -EUS: no lesions in esophagus or stomach, no significant CBD or pancreatic pathology -Pending: mitochondrial antibody, smooth muscle antibody, liver/kidney microsome type 1 antibody -Zofran PRN #JONATHAN #E faecium UTI, simple cystitis #Urinary retention -Creatinine 5.7 at OSH >> 2.16 today -S/p IVF resuscitation with improvement -S/p IV Zosyn -RP US: no hydronephrosis -S/p straight cath x1 for retention likely 2/2 UTI -Bladder scan qshift or if changes in UO -CTM, if improvement plateaus will involve nephro -C/w Vancomycin to complete 5 day course #ASCVD with h/o [place] and PCI #Non-rheumatic aortic valve stenosis - S/p Edd 2021 #Ischemic cardiomyopathy -Follows with Dr. Montenegro -C/w statin -C/w plavix -C/w torsemide #Bipolar disorder -C/w lamictal, seroquel #Hypothyroidism -C/w home synthroid #GERD -C/w home PPI #PAF -Hold home Eliquis, can resume post procedurally -C/w home metoprolol #Malignant neoplasm of upper-outer quadrant of left breast in female, estrogen receptor negative - Follows with Dr. Prater #Sclerosis of mid left clavicle on CXR -Hold home percocet -C/w home baclofen -Oxycodone scale, PRN tylenol -Onc consulted - no further inpatient workup -Gen surg notified of admission; mastectomy delayed for time being #Routine Diet: Regular diet DVT Prophylaxis: DOAC SCD GI Prophylaxis: PPI Code Status: Attempt Cardiopulmonary Resuscitation - Inpatient Dispo: Pending clinical course [facility] Medicine 07/12/24 7:29 AM * Elda Clinton RN - 07/11/2024 7:49 PM EDT Illness Severity Stable Patient Summary Reason for admission: Abdominal pain, N/V Relevant PMH: Breast cancer on chemo, CAD s/p CRIS x 7, CHF, aortic valve stenosis s/p replacement, hypothyroidism, paroxysmal A-fib on Eliquis Significant 24 hour events: 07/11 AM: A&Ox4, VSS on RA. Tele d/c, SB with L BBB prior to d/c. Off unit to endo for EUS, seeprocedure note. IV vanco per NOV. Bladder scan qshift. PRN oxy x1. Pt resting between nursing care. Action List Trend LFTs IV vanco * Stacia Bhat, PT - 07/11/2024 2:58 PM EDT Document Type: contact Total Minutes, Physical Therapy: 0 Reason: Pt chart reviewed, pt currently off floor getting endoscopy. Will follow up tomorrow for PT evaluation as appropriate. Pager: [phone] Stcaia Bhat, PT Date: 07/11/24 Physical Therapy Rehabilitation Department * Elda Gaxiola MD - 07/11/2024 1:49 PM EDT Images from the original note were not included. Hospital Medicine Progress Note Patient info: Name: Oksana Betancourt : 1965 PCP: Gaudencio Scales DO PCP phone number: [phone] Date of Admission: 07/09/2024 ( Hospital Day 2 days ) Attending:Elda Gaxiola MD ID: Oksana Betancourt is a 58 y.o. female with PMH significant for ASCVD s/p CRIS x7, AV stenosis s/preplacement, hypothyroidism, PAF on Eliquis, hx of Hodgkin's lymphoma in her 20s s/p mantle radiation therapy, and triple negative breast cancer with known met to [address] planned for upcoming prophylactic bilateral mastectomy presenting as a transfer from [facility] where she presented with nausea,vomiting, and RUQ pain. 24 Hour Events/Subjective: -NAEO -Patient is tearful and anxious this AM. She states that abdominal pain is mild and denies nausea this AM. States that symptoms improved somewhat with BM this AM. -Patient denied any chest pain, palpitations, shortness of breath, cough, diarrhea, dysuria, numbness or tingling. Objective: Vitals Last value Range last 24 hrs Temperature Temp: 36.7 ??C (98.1 ??F) Temp: [36.3 ??C (97.3 ??F)-37.4 ??C (99.3 ??F)] Heart Rate Heart Rate: 61 Heart Rate: [61-73] Blood Pressure BP: 121/58 BP: (93-122)/(44-78) Art Line BP BP (Arterial Line): -- MAP (NBP): [60 mmHg-91 mmHg] Respiratory Rate Resp: 18 Resp: [16-20] SpO2 SpO2: 100 % SpO2: [91 %-100 %] Oxygen Delivery Oxygen Therapy O2 Device: None (Room air) Intake/Output Summary (Last 24 hours) at 07/11/2024 1349 Last data filed at 07/11/2024 0759 Gross per 24 hour Intake 775 ml Output 1050 ml Net -275 ml Last Bowel Movement: 07/11/24 Patient Vitals for the past 168 hrs: Weight 07/09/24 0100 92.6 kg (204 lb 3.2 oz) Admit wt: 92.62 kg Physical Exam: Gen: in bed in NAD; alert, oriented, conversant HEENT: anicteric, EOMI intact CV: RRR, no murmurs/rubs/gallops Resp: CTAB, no crackles/wheezes/ronchi, normal work of breathing Abd: normal bowel sounds, soft, mildly TTP RUQ, no rebound or guarding Ext: 2+ distal pulses, no pedal edema Neuro: no focal deficits noted, moves all extremities spontaneously Skin: no rashes, lesions, or ulcerations noted Lines/Drains/Airways Lines: Implanted Port 03/23/24 1443 Single Lumen infraclavicular fossa, right (Active) Port Accessed Date 05/29/24 05/29/24 1030 Port Accessed Time 0704/17/24 0700 Access Needle 19 gauge;3/4 in length 04/17/24 07 Pain Prevention intradermal injection 04/17/24 07 Indication/Daily Review of Necessity Medications known to cause phlebitis (vasopressors, concentrated electrolytes, TPN, chemotherapy) 05/29/24 1030 Site Preparation/Maintenance dressing: dry and intact 05/29/24 1154 Lumen Patency/Care flushed without difficulty;blood return present 05/29/24 1154 Phlebitis 0-->no symptoms 05/29/24 1154 Infiltration 0-->no symptoms 05/29/24 1154 Site Signs/Symptoms no redness;no swelling;no warmth;no pain 03/28/24 0726 Vascular Access Port Interventions blood specimen obtained and sent to lab 04/17/24 07 Port De-access Date 05/08/24 05/08/24 1230 Port De-Access Time 1408 04/17/24 1408 Port De-Access Indication infusion complete 05/08/24 1230 PIV 07/09/24 0000 20 gauge median cubital vein (antecubital fossa), left (Active) Indication/Daily Review of Necessity medication therapy intermittent;fluid therapy continuous 07/09/24 09 Site Preparation/Maintenance dressing: dry and intact 07/09/24 1000 Securement catheter stabilization device, secured with 07/09/24 09 Patency/Maintenance flushed without difficulty;alcohol impregnated cap applied 07/09/24 1000 Phlebitis 0-->no symptoms 07/09/24 1000 Infiltration 0-->no symptoms 07/09/24 1000 Labs: Recent Labs 07/11/24 0408 07/10/24 0526 07/09/24 0502 WBC 11.57* 10.15* 9.89* HGB 8.2* 8.1* 8.0* HCT 25.2* 24.5* 24.8* PLATELET 375* 412* 441* MCV 92.6 92.1 94.7* Recent Labs 07/11/24 0408 07/10/24 0526 07/10/24 0215 07/09/24 1610 07/09/24 0502 NA 142 142 -- 142 142 CL 102 102 -- 100 103 CO2 25 -- K 3.6 3.7 -- 3.7 3.8 PHOS 2.8 -- 3.7 -- -- CALCIUM 8.9 9.0 -- 9.6 9.2 BUN 35* 39* -- 39* 37* CREATININE 2.84* 3.12* -- 3.37* 4.07* LFTs Recent Labs 07/11/24 0408 07/10/24 0526 07/09/24 0502 PROT 7.9 7.5 7.6 ALBUMIN 3.0* 3.2 3.1* AST 145* 124* 124* ALT 67* 58* 61* ALKPHOS 2,593* 2,487* 2,558* BILITOT 1.2 1.2 1.2 Endocrine Recent Labs 06/01/24 0144 04/17/24 0729 03/28/24 0724 11/28/23 1110 TSH 0.60 3.58 3.34 0.51 Microbiology: Microbiology Results (Last 30 days) Procedure Component Value Units Date/Time Urine culture [[id number]] (Abnormal) (Susceptibility) Collected: 07/09/24924 Lab Status: Final result Specimen: Urine, Clean Catch Updated: 07/11/24625 Urine Culture Greater than 100,000 cfu/ml Enterococcus faecium Susceptibility Enterococcus faecium VITEK 2 METHOD Ampicillin Resistant Ciprofloxacin Resistant Levofloxacin Resistant Nitrofurantoin Intermediate Penicillin Resistant Tetracycline Resistant Vancomycin Susceptible Imaging: Results for orders placed or performed during the hospital encounter of 07/09/24 US Retroperitoneal Complete (Exam End: 07/09/2024 10:53 AM) Result Value WORKSTATION ID [id number] Impression 1. Slightly limited exam with no evidence of hydronephrosis or nephrolithiasis. 2. Stable mild right renal atrophy. I have personally reviewed the image(s) and the resident's interpretation and agree with the findings, David Alvarado MD at 07/09/2024 11:07 AM Thank you for letting us participate in the care of this patient. If you are a health care provider and have any questions regarding this report, please contact the number above. For patients who have questions, please contact the health primary care coordinator that requested your imaging first. David Alvarado, Staff Physician Electronically Signed Final Report 07/09/2024 11:16 am US Abdomen Limited (Exam End: 07/09/2024 11:16 AM) Result Value WORKSTATION ID [id number] Impression 1. Normal hepatic parenchymal echogenicity and contour. [...] resident's interpretation and agree with the findings, David Alvarado MD at 07/09/2024 11:45 AM Thank you for letting us participate in the care of this patient. If you are a health care provider and have any questions regarding this report, please contact the number above. For patients who have questions, please contact the health primary care coordinator that requested your imaging first. David Alvarado, Staff Physician Electronically Signed Final Report 07/09/2024 11:53 am MRI Cholangiopancreatography WO Contrast (Exam End: 07/09/2024 10:28 PM) Result Value WORKSTATION ID [id number] Impression Bile duct ectasia with CBD measuring up to [address] evident choledocholithiasis. Thank you for letting us participate in the care of this patient. If you are a health care provider and have any questions regarding this report, please contact the number below. For patients who have questions please contact the health primary care coordinator that requested your imaging first. imaging reports: CTH: no acute intracranial abnormality CXR: mild interstitial pattern to the chest. Pulm edema vs. Atypical infection. Sclerosis to mid left clavicle. CT AP w/o: gas in the distal esophagus which can be seen with reflux. There is some wall prominenceto the distal esophagus which can be seen with inflammation/esophagitis. CBD is measuring dilated. This may be secondary to the patient's cholecystectomy status, however, correlation with lab values s uggested. Moderate amount of stool in the colon which can be seen with constipation. There is hyperdensity in the TI, which may be related to ingested products but should be correlated with any concern for blood products. Urinary bladder wall prominence. This can be seen with infection or underdistention. Lesions in the adrenal gland which do not fulfill criteria for adenomas. An adrenal mass protocol MRI is recommended for further evaluation. Nonspecifict 5 mm left pulmonary nodule, unchanged from prior examination. Comparison with older imaging studies, if available, would be beneficial. Medications Scheduled Meds: multivitamin with minerals 1 tablet Oral Daily atorvastatin 80 mg Oral Daily at Noon clopidogreL 75 mg Oral Daily lamoTRIgine 100 mg Oral BID levothyroxine 100 mcg Oral QAM metoprolol succinate XL 50 mg Oral BID pantoprazole EC 40 mg Oral Daily QUEtiapine 150 mg Oral Nightly torsemide 20 mg Oral Daily sodium chloride 0.9 % (flush) 5 mL Intravenous BID baclofen 5 mg Oral BID white petrolatum-mineral oiL Topical (Top) Daily senna-docusate 2 tablet Oral BID polyethylene glycoL (MIRALAX) oral powder 17 g Oral Daily PRN Meds:bisacodyL, ondansetron, magnesium hydroxide, sodium chloride 0.9 % (flush), lidocaine, melatonin, naloxone, oxyCODONE OR oxyCODONE, oxyCODONE, acetaminophen Assessment & Plan: Oksana Betancourt is a 58 y.o. female with PMH significant for ASCVD s/p CRIS x7, AV stenosis s/p replacement, hypothyroidism, PAF on Eliquis, hx of Hodgkin's lymphoma in her 20s s/p mantle radiation therapy, and triple negative breast cancer with known met to [address] planned for upcoming prophylactic bilateral mastectomy presenting as a transfer from [facility] where she presented with nausea, vomiting, and RUQ pain. Labs at OSH remarkable for T bili 1.62, AST 172, ALT 93, alk phos 4732 with moderately dilated CBD on CT AP, overall concerning for obstructive biliary process. Right upper quadrant ultrasound was performed here which showed CBD 1 cm, likely normal and nonspecific in the settingof prior cholecystectomy. GGT was also noted to be elevated to 2038 prompting further evaluation with MRCP as recommended by GI. MRCP showed bile duct ectasia with CBD showing up to 11 mm no evidenceof choledocholithiasis. GI planning for EUS to evaluate further given lab abnormalities. Patient was also noted to have sclerosis to mid left clavicle on CXR at OSH. Bony mets could help to explain elevation in alk phos. Oncology has been consulted for guidance on imaging preference especially in the setting of planned upcoming mastectomy as this could record changer. Hospitalization has been relayed to surgical team and mastectomy cancelled for the time being. Further imaging pending optimization of renal function. OSH labs also remarkable for acute JONATHAN with BUN 43, creatinine 5.7. UA concerning for infection andpatient was started on IV Zosyn. Patient was also noted to be retaining urine on bladder ultrasoundand required straight catheterization x 1. Retroperitoneal ultrasound showed no evidence of hydronep hrosis. Creatinine improving with fluid resuscitation and treatment of UTI. Will continue to BladderScan periodically to ensure she is not retaining. Urine culture resulted with greater than 100,000 CFU per mL E faecium. Antibiotics transitioned to Vancomycin with urine cx showing susceptibility. Anticipate 5 day treatment course for simple cystitis. #RUQ pain #Elevated alk phos/GGT -S/p cholecystectomy -GI consulted -RUQUS: CBD 1 cm -MRCP: bile duct ectasia with CBD 11mm, no evidence of cholelithiasis -Pending: mitochondrial antibody, smooth muscle antibody, liver/kidney microsome type 1 antibody -Zofran PRN -Plan for EUS today #JONATHAN #E faecium UTI, simple cystitis #Urinary retention -Creatinine 5.7 at OSH -S/p IVF resuscitation with improvement -S/p IV Zosyn -RP US: no hydronephrosis -S/p straight cath x1 for retention likely 2/2 UTI -Bladder scan qshift or if changes in UO -CTM, if improvement plateaus will involve nephro -C/w Vancomycin #ASCVD with h/o [place] and PCI #Non-rheumatic aortic valve stenosis - S/p Edd 2021 #Ischemic cardiomyopathy -Follows with Dr. Montenegro -C/w statin -C/w plavix -C/w torsemide #Bipolar disorder -C/w lamictal, seroquel #Hypothyroidism -C/w home synthroid #GERD -C/w home PPI #PAF -Hold home Eliquis, can resume post procedurally -C/w home metoprolol #Malignant neoplasm of upper-outer quadrant of left breast in female, estrogen receptor negative - Follows with Dr. Prater #Sclerosis of mid left clavicle on CXR -Hold home percocet -C/w home baclofen -Oxycodone scale, PRN tylenol -Onc consulted -Gen surg notified of admission; mastectomy delayed for time being #Routine Diet: NPO diet (Give Meds) DVT Prophylaxis: DOAC SCD GI Prophylaxis: PPI Code Status: Attempt Cardiopulmonary Resuscitation - Inpatient Dispo: Pending clinical course Elda Gaxiola MD [facility] Medicine 07/11/24 1:49 PM IPI Certification I certify that I am a [facility] credentialed attending provider with admitting privileges and that the patient meets or has met medical necessity to require an inpatient IPI level of care meeting a minimumof two midnights or is on the [facility] inpatient only procedure list (status C) due to: acute kidney injury necessitating close monitoring of fluid balance such as intravenous fluids and/or titration of medication to achieve optimal effect and minimize the chance of immediate or severe side effects * Leidy Fong - 07/11/2024 7:39 AM EDT Images from the original note were not included. Hospital Medicine Progress Note Patient info: Name: Oksana Betancourt : 1965 PCP: Gaudencio Scales DO PCP phone number: [phone] Date of Admission: 07/09/2024 ( Hospital Day 2 days ) Attending:Elda Gaxiola MD ID: Oksana Betancourt is a 58 y.o. female with PMH significant for ASCVD s/p CRIS x7, AV stenosis s/preplacement, hypothyroidism, PAF on Eliquis, hx of Hodgkin's lymphoma in her 20s s/p mantle radiation therapy, and triple negative breast cancer with known met to [address] planned for upcoming prophylactic bilateral mastectomy presenting as a transfer from [facility] where she presented with nausea,vomiting, and RUQ pain. 24 Hour Events/Subjective: -NAEO, NPO since midnight for EUS today -Patient reports mild RUQ pain. She does report 1 BM this morning that was painful. She denies fevers, chills, urinary sx. -Patient denied any chest pain, palpitations, shortness of breath, cough, diarrhea, dysuria, numbness or tingling. Objective: Vitals Last value Range last 24 hrs Temperature Temp: 37 ??C (98.6 ??F) Temp: [36.3 ??C (97.3 ??F)-37.4 ??C (99.3 ??F)] Heart Rate Heart Rate: 61 Heart Rate: [61-73] Blood Pressure BP: 117/78 BP: (93-132)/(44-78) Art Line BP BP (Arterial Line): -- MAP (NBP): [60 mmHg-91 mmHg] Respiratory Rate Resp: 20 Resp: [16-20] SpO2 SpO2: 98 % SpO2: [91 %-100 %] Oxygen Delivery Oxygen Therapy O2 Device: None (Room air) Intake/Output Summary (Last 24 hours) at 07/11/2024 0739 Last data filed at 07/11/2024 0022 Gross per 24 hour Intake 1032.5 ml Output 800 ml Net 232.5 ml Last Bowel Movement: 07/11/24 Patient Vitals for the past 168 hrs: Weight 07/09/24 0100 92.6 kg (204 lb 3.2 oz) Admit wt: 92.62 kg Physical Exam: Gen: in bed in NAD; alert, oriented, conversant HEENT: anicteric, EOMI intact CV: RRR, no murmurs/rubs/gallops Resp: CTAB, no crackles/wheezes/ronchi, normal work of breathing Abd: normal bowel sounds, soft, mildly TTP RUQ, no rebound or guarding Ext: 2+ distal pulses, no pedal edema Neuro: no focal deficits noted, moves all extremities spontaneously Skin: no rashes, lesions, or ulcerations noted Lines/Drains/Airways Lines: Implanted Port 03/23/24 1443 Single Lumen infraclavicular fossa, right (Active) Port Accessed Date 05/29/24 05/29/24 1030 Port Accessed Time 72904/17/24 0700 Access Needle 19 gauge;3/4 in length 04/17/24 07 Pain Prevention intradermal injection 04/17/24 07 Indication/Daily Review of Necessity Medications known to cause phlebitis (vasopressors, concentrated electrolytes, TPN, chemotherapy) 05/29/24 1030 Site Preparation/Maintenance dressing: dry and intact 05/29/24 1154 Lumen Patency/Care flushed without difficulty;blood return present 05/29/24 1154 Phlebitis 0-->no symptoms 05/29/24 1154 Infiltration 0-->no symptoms 05/29/24 1154 Site Signs/Symptoms no redness;no swelling;no warmth;no pain 03/28/24 0726 Vascular Access Port Interventions blood specimen obtained and sent to lab 04/17/24 07 Port De-access Date 05/08/24 05/08/24 1230 Port De-Access Time 1408 04/17/24 1408 Port De-Access Indication infusion complete 05/08/24 1230 PIV 07/09/24 0000 20 gauge median cubital vein (antecubital fossa), left (Active) Indication/Daily Review of Necessity medication therapy intermittent;fluid therapy continuous 07/09/24 09 Site Preparation/Maintenance dressing: dry and intact 07/09/24 1000 Securement catheter stabilization device, secured with 07/09/24 09 Patency/Maintenance flushed without difficulty;alcohol impregnated cap applied 07/09/24 1000 Phlebitis 0-->no symptoms 07/09/24 1000 Infiltration 0-->no symptoms 07/09/24 1000 Labs: Recent Labs 07/11/24 0408 07/10/24 0526 07/09/24 0502 WBC 11.57* 10.15* 9.89* HGB 8.2* 8.1* 8.0* HCT 25.2* 24.5* 24.8* PLATELET 375* 412* 441* MCV 92.6 92.1 94.7* Recent Labs 07/11/24 0408 07/10/24 0526 07/10/24 0215 07/09/24 1610 07/09/24 0502 NA 142 142 -- 142 142 CL 102 102 -- 100 103 CO2 25 25 -- K 3.6 3.7 -- 3.7 3.8 PHOS 2.8 -- 3.7 -- -- CALCIUM 8.9 9.0 -- 9.6 9.2 BUN 35* 39* -- 39* 37* CREATININE 2.84* 3.12* -- 3.37* 4.07* LFTs Recent Labs 07/11/24 0408 07/10/24 0526 07/09/24 0502 PROT 7.9 7.5 7.6 ALBUMIN 3.0* 3.2 3.1* AST 145* 124* 124* ALT 67* 58* 61* ALKPHOS 2,593* 2,487* 2,558* BILITOT 1.2 1.2 1.2 Endocrine Recent Labs 06/01/24 0144 04/17/24 0729 03/28/24 0724 11/28/23 1110 TSH 0.60 3.58 3.34 0.51 Microbiology: Microbiology Results (Last 30 days) Procedure Component Value Units Date/Time Urine culture [[id number]] (Abnormal) (Susceptibility) Collected: 07/09/24924 Lab Status: Final result Specimen: Urine, Clean Catch Updated: 07/11/24625 Urine Culture Greater than 100,000 cfu/ml Enterococcus faecium Susceptibility Enterococcus faecium VITEK 2 METHOD Ampicillin Resistant Ciprofloxacin Resistant Levofloxacin Resistant Nitrofurantoin Intermediate Penicillin Resistant Tetracycline Resistant Vancomycin Susceptible Imaging: Results for orders placed or performed during the hospital encounter of 07/09/24 US Retroperitoneal Complete (Exam End: 07/09/2024 10:53 AM) Result Value WORKSTATION ID [id number] Impression 1. Slightly limited exam with no evidence of hydronephrosis or nephrolithiasis. 2. Stable mild right renal atrophy. I have personally reviewed the image(s) and the resident's interpretation and agree with the findings, David Alvarado MD at 07/09/2024 11:07 AM Thank you for letting us participate in the care of this patient. If you are a health care provider and have any questions regarding this report, please contact the number above. For patients who have questions, please contact the health primary care coordinator that requested your imaging first. David Alvarado, Staff Physician Electronically Signed Final Report 07/09/2024 11:16 am US Abdomen Limited (Exam End: 07/09/2024 11:16 AM) Result Value WORKSTATION ID [id number] Impression 1. Normal hepatic parenchymal echogenicity and contour. [...] resident's interpretation and agree with the findings, David Alvarado MD at 07/09/2024 11:45 AM Thank you for letting us participate in the care of this patient. If you are a health care provider and have any questions regarding this report, please contact the number above. For patients who have questions, please contact the health primary care coordinator that requested your imaging first. David Alvarado, Staff Physician Electronically Signed Final Report 07/09/2024 11:53 am MRI Cholangiopancreatography WO Contrast (Exam End: 07/09/2024 10:28 PM) Result Value WORKSTATION ID [id number] Impression Bile duct ectasia with CBD measuring up to [address] evident choledocholithiasis. Thank you for letting us participate in the care of this patient. If you are a health care provider and have any questions regarding this report, please contact the number below. For patients who have questions please contact the health primary care coordinator that requested your imaging first. imaging reports: CTH: no acute intracranial abnormality CXR: mild interstitial pattern to the chest. Pulm edema vs. Atypical infection. Sclerosis to mid left clavicle. CT AP w/o: gas in the distal esophagus which can be seen with reflux. There is some wall prominenceto the distal esophagus which can be seen with inflammation/esophagitis. CBD is measuring dilated. This may be secondary to the patient's cholecystectomy status, however, correlation with lab values s uggested. Moderate amount of stool in the colon which can be seen with constipation. There is hyperdensity in the TI, which may be related to ingested products but should be correlated with any concern for blood products. Urinary bladder wall prominence. This can be seen with infection or underdistention. Lesions in the adrenal gland which do not fulfill criteria for adenomas. An adrenal mass protocol MRI is recommended for further evaluation. Nonspecifict 5 mm left pulmonary nodule, unchanged from prior examination. Comparison with older imaging studies, if available, would be beneficial. Medications Scheduled Meds: multivitamin with minerals 1 tablet Oral Daily atorvastatin 80 mg Oral Daily at Noon clopidogreL 75 mg Oral Daily lamoTRIgine 100 mg Oral BID levothyroxine 100 mcg Oral QAM metoprolol succinate XL 50 mg Oral BID pantoprazole EC 40 mg Oral Daily QUEtiapine 150 mg Oral Nightly torsemide 20 mg Oral Daily sodium chloride 0.9 % (flush) 5 mL Intravenous BID baclofen 5 mg Oral BID white petrolatum-mineral oiL Topical (Top) Daily senna-docusate 2 tablet Oral BID polyethylene glycoL (MIRALAX) oral powder 17 g Oral Daily PRN Meds:bisacodyL, ondansetron, magnesium hydroxide, sodium chloride 0.9 % (flush), lidocaine, melatonin, naloxone, oxyCODONE OR oxyCODONE, oxyCODONE, acetaminophen Assessment & Plan: Oksana Betancourt is a 58 y.o. female with PMH significant for ASCVD s/p CRIS x7, AV stenosis s/p replacement, hypothyroidism, PAF on Eliquis, hx of Hodgkin's lymphoma in her 20s s/p mantle radiation therapy, and triple negative breast cancer with known met to [address] planned for upcoming prophylactic bilateral mastectomy presenting as a transfer from [facility] where she presented with nausea, vomiting, and RUQ pain. Labs at OSH remarkable for T bili 1.62, AST 172, ALT 93, alk phos 4732 with moderately dilated CBD on CT AP, overall concerning for obstructive biliary process. Right upper quadrant ultrasound was performed here which showed CBD 1 cm, likely normal and nonspecific in the settingof prior cholecystectomy. GGT was also noted to be elevated to 2038 prompting further evaluation with MRCP as recommended by GI. MRCP showed bile duct ectasia with CBD showing up to 11 mm no evidenceof choledocholithiasis. GI planning for EUS to evaluate further given lab abnormalities. Patient was also noted to have sclerosis to mid left clavicle on CXR at OSH. Bony mets could help to explain elevation in alk phos. Oncology has been consulted for guidance on imaging preference especially in the setting of planned upcoming mastectomy as this could record changer. OSH labs also remarkable for acute JONATHAN with BUN 43, creatinine 5.7. UA concerning for infection andpatient was started on IV Zosyn. Patient was also noted to be retaining urine on bladder ultrasoundand required straight catheterization x 1. Retroperitoneal ultrasound showed no evidence of hydronep hrosis. Creatinine improving with fluid resuscitation and treatment of UTI. Will continue to BladderScan periodically to ensure she is not retaining. Urine culture resulted with greater than 100,000 CFU per mL E faecium, susceptible to Vancomycin. Antibiotics transitioned to Vanc, plan for 5-7 daystotal of treatment. Surgical oncology informed regarding current inpatient workup and postponement of scheduled bilateral mastectomy. #RUQ pain #Elevated alk phos/GGT -S/p cholecystectomy -GI following -RUQUS: CBD 1 cm -MRCP: bile duct ectasia with CBD 11mm, no evidence of cholelithiasis -Pending: mitochondrial antibody, smooth muscle antibody, liver/kidney microsome type 1 antibody -Zofran PRN -EUS today #JONATHAN #E faecium UTI #Urinary retention -Creatinine 5.7 at OSH -S/p IVF resuscitation with improvement -S/p IV Zosyn -RP US: no hydronephrosis -S/p straight cath x1 for retention likely 2/2 UTI -Bladder scan qshift or if changes in UO -CTM, if improvement plateaus will involve nephro -C/w Vanc with assistance from Pharmacy #ASCVD with h/o [place] and PCI #Non-rheumatic aortic valve stenosis - S/p Edd 2021 #Ischemic cardiomyopathy -Follows with Dr. Montenegro -C/w statin -C/w plavix -C/w torsemide #Bipolar disorder -C/w lamictal, seroquel #Hypothyroidism - -C/w home synthroid #GERD -C/w home PPI #PAF -Hold home Eliquis, can resume post procedurally -C/w home metoprolol #Malignant neoplasm of upper-outer quadrant of left breast in female, estrogen receptor negative - Follows with Dr. Prater #Sclerosis of mid left clavicle on CXR -Hold home percocet -C/w home baclofen -Oxycodone scale, PRN tylenol -Onc consulted -Consider repeat CT for staging of L sclerotic clavicular lesion #Routine Diet: NPO diet (Give Meds) DVT Prophylaxis: DOAC SCD GI Prophylaxis: PPI Code Status: Attempt Cardiopulmonary Resuscitation - Inpatient Dispo: Pending clinical course [facility] Medicine 07/11/24 7:39 AM * Miriam Lambert RN - 07/11/2024 6:32 AM EDT Illness Severity Stable Patient Summary Reason for admission: Abdominal pain, N/V Relevant PMH: Breast cancer on chemo, CAD s/p CRIS x 7, CHF, aortic valve stenosis s/p replacement, hypothyroidism, paroxysmal A-fib on Eliquis Significant 24 hour events: 07/10 AM: A&Ox4. VSS on RA. Denies SOB. Pt complained of nausea - zofran given with good effect. IV Zosyn given per NOV. RUQ pain endorsed and 10mg of oxy given at 1117 with good effect. Tele continued with NRS and left BBB. Senna, miralax, suppository, and milk of mag given per pt request withno effect. Held plavix for possible MRCP today per MD order. Bladder scan completed per order see chart. NPO at midnight for EUS tomorrow. Pt rested between care. 07/10 PM: Pt A+Ox4, VSS on RA. Tele continued, remains in NSR w/ L BBB. Denies nausea and SOB. Endorsed 7/10 RUQ abdominal pain, PRN 10mg oxycodone given x2 with good effect each time. IV Vanco infused per NOV. Voiding adequate amounts, pt up independently to Br, bladder scanned per orders, see flowsheet. Pt had BMx3 overnight (after senna, miralax, suppository, and milk of mag given on day shift), last BM blood-streaked (pt reported lots of straining to have Bms), MD notified. Kept NPO after midnight for possible EUS today. Pt resting/sleeping between care. Action List NPO for EUS Trend LFTs IV vanco Vanc level 07/11 @0900 * Jayashree Hawthorne RN - 07/10/2024 6:56 PM EDT Patient Summary Reason for admission: Abdominal pain, N/V Relevant PMH: Breast cancer on chemo, CAD s/p CRIS x 7, CHF, aortic valve stenosis s/p replacement, hypothyroidism, paroxysmal A-fib on Eliquis Significant 24 hour events: 07/10 AM: A&Ox4. VSS on RA. Denies SOB. Pt complained of nausea - zofran given with good effect. IV Zosyn given per NOV. RUQ pain endorsed and 10mg of oxy given at 1117 with good effect. Tele continued with NRS and left BBB. Senna, miralax, suppository, and milk of mag given per pt request withno effect. Held plavix for possible MRCP today per MD order. Bladder scan completed per order see chart. NPO at midnight for EUS tomorrow. Pt rested between care. Chemo plan & supportive medication: Baseline Weight: Most recent weight: Weight: 92.6 kg (204 lb 3.2 oz) (07/09/24 0100) * Elda Gaxiola MD - 07/10/2024 3:26 PM EDT Images from the original note were not included. Hospital Medicine Progress Note Patient info: Name: Oksana Betancourt : 1965 PCP: Gaudencio Scales DO PCP phone number: [phone] Date of Admission: 07/09/2024 ( Hospital Day 1 day ) Attending:Elda Gaxiola MD ID: Oksana Betancourt is a 58 y.o. female with PMH significant for ASCVD s/p CRIS x7, AV stenosis s/preplacement, hypothyroidism, PAF on Eliquis, hx of Hodgkin's lymphoma in her 20s s/p mantle radiation therapy, and triple negative breast cancer with known met to [address] planned for upcoming prophylactic bilateral mastectomy presenting as a transfer from [facility] where she presented with nausea,vomiting, and RUQ pain. 24 Hour Events/Subjective: -NAEO -Patient reports nausea and mild RUQ pain, but is starting to feel hungry. She also states that shehas not had a BM in several days. She denies fevers, chills, urinary sx. -Patient denied any chest pain, palpitations, shortness of breath, cough, diarrhea, dysuria, numbness or tingling. Objective: Vitals Last value Range last 24 hrs Temperature Temp: 37 ??C (98.6 ??F) Temp: [36.8 ??C (98.2 ??F)-37.4 ??C (99.3 ??F)] Heart Rate Heart Rate: 66 Heart Rate: [62-81] Blood Pressure BP: 130/53 BP: (100-145)/(49-56) Art Line BP BP (Arterial Line): -- MAP (NBP): [66 mmHg-86 mmHg] Respiratory Rate Resp: 16 Resp: [16-18] SpO2 SpO2: 98 % SpO2: [97 %-100 %] Oxygen Delivery Oxygen Therapy O2 Device: None (Room air) Intake/Output Summary (Last 24 hours) at 07/10/2024 1527 Last data filed at 07/10/2024 1400 Gross per 24 hour Intake 557.5 ml Output 1500 ml Net -942.5 ml Last Bowel Movement: (BI ANALYST- pt believes 07/06-) Patient Vitals for the past 168 hrs: Weight 07/09/24 0100 92.6 kg (204 lb 3.2 oz) Admit wt: 92.62 kg Physical Exam: Gen: in bed in NAD; alert, oriented, conversant HEENT: anicteric, EOMI intact CV: RRR, no murmurs/rubs/gallops Resp: CTAB, no crackles/wheezes/ronchi, normal work of breathing Abd: normal bowel sounds, soft, mildly TTP RUQ, no rebound or guarding Ext: 2+ distal pulses, no pedal edema Neuro: no focal deficits noted, moves all extremities spontaneously Skin: no rashes, lesions, or ulcerations noted Lines/Drains/Airways Lines: Implanted Port 03/23/24 1443 Single Lumen infraclavicular fossa, right (Active) Port Accessed Date 05/29/24 05/29/24 1030 Port Accessed Time 0704/17/24 07 Access Needle 19 gauge;3/4 in length 04/17/24 07 Pain Prevention intradermal injection 04/17/24 0700 Indication/Daily Review of Necessity Medications known to cause phlebitis (vasopressors, concentrated electrolytes, TPN, chemotherapy) 05/29/24 1030 Site Preparation/Maintenance dressing: dry and intact 05/29/24 1154 Lumen Patency/Care flushed without difficulty;blood return present 05/29/24 1154 Phlebitis 0-->no symptoms 05/29/24 1154 Infiltration 0-->no symptoms 05/29/24 1154 Site Signs/Symptoms no redness;no swelling;no warmth;no pain 03/28/24 0726 Vascular Access Port Interventions blood specimen obtained and sent to lab 04/17/24 0700 Port De-access Date 05/08/24 05/08/24 1230 Port De-Access Time 1408 04/17/24 1408 Port De-Access Indication infusion complete 05/08/24 1230 PIV 07/09/24 0000 20 gauge median cubital vein (antecubital fossa), left (Active) Indication/Daily Review of Necessity medication therapy intermittent;fluid therapy continuous 07/09/24 0900 Site Preparation/Maintenance dressing: dry and intact 07/09/24 1000 Securement catheter stabilization device, secured with 07/09/24 0900 Patency/Maintenance flushed without difficulty;alcohol impregnated cap applied 07/09/24 1000 Phlebitis 0-->no symptoms 07/09/24 1000 Infiltration 0-->no symptoms 07/09/24 1000 Labs: Recent Labs 07/10/24 0526 07/09/24 0502 WBC 10.15* 9.89* HGB 8.1* 8.0* HCT 24.5* 24.8* PLATELET 412* 441* MCV 92.1 94.7* Recent Labs 07/10/24 0526 07/10/24 0215 07/09/24 1610 07/09/24 0502 NA 142 -- 142 142 CL 102 -- 100 103 CO2 25 -- 23 23 K 3.7 -- 3.7 3.8 PHOS -- 3.7 -- -- CALCIUM 9.0 -- 9.6 9.2 BUN 39* -- 39* 37* CREATININE 3.12* -- 3.37* 4.07* LFTs Recent Labs 07/10/24 0526 07/09/24 0502 PROT 7.5 7.6 ALBUMIN 3.2 3.1* AST 124* 124* ALT 58* 61* ALKPHOS 2,487* 2,558* BILITOT 1.2 1.2 Endocrine Recent Labs 06/01/24 0144 04/17/24 0729 03/28/24 0724 11/28/23 1110 TSH 0.60 3.58 3.34 0.51 Microbiology: Microbiology Results (Last 30 days) Procedure Component Value Units Date/Time Urine culture [[id number]] (Abnormal) Collected: 07/09/24924 Lab Status: Preliminary result Specimen: Urine, Clean Catch Updated: 07/10/24 1119 Urine Culture Greater than 100,000 cfu/ml Enterococcus faecium Imaging: Results for orders placed or performed during the hospital encounter of 07/09/24 US Retroperitoneal Complete (Exam End: 07/09/2024 10:53 AM) Result Value WORKSTATION ID [id number] Impression 1. Slightly limited exam with no evidence of hydronephrosis or nephrolithiasis. 2. Stable mild right renal atrophy. I have personally reviewed the image(s) and the resident's interpretation and agree with the findings, David Alvarado MD at 07/09/2024 11:07 AM Thank you for letting us participate in the care of this patient. If you are a health care provider and have any questions regarding this report, please contact the number above. For patients who have questions, please contact the health primary care coordinator that requested your imaging first. David Alvarado, Staff Physician Electronically Signed Final Report 07/09/2024 11:16 am US Abdomen Limited (Exam End: 07/09/2024 11:16 AM) Result Value WORKSTATION ID [id number] Impression 1. Normal hepatic parenchymal echogenicity and contour. [...] resident's interpretation and agree with the findings, David Alvarado MD at 07/09/2024 11:45 AM Thank you for letting us participate in the care of this patient. If you are a health care provider and have any questions regarding this report, please contact the number above. For patients who have questions, please contact the health primary care coordinator that requested your imaging first. David Alvarado, Staff Physician Electronically Signed Final Report 07/09/2024 11:53 am MRI Cholangiopancreatography WO Contrast (Exam End: 07/09/2024 10:28 PM) Result Value WORKSTATION ID [id number] Impression Bile duct ectasia with CBD measuring up to [address] evident choledocholithiasis. Thank you for letting us participate in the care of this patient. If you are a health care provider and have any questions regarding this report, please contact the number below. For patients who have questions please contact the health primary care coordinator that requested your imaging first. imaging reports: CTH: no acute intracranial abnormality CXR: mild interstitial pattern to the chest. Pulm edema vs. Atypical infection. Sclerosis to mid left clavicle. CT AP w/o: gas in the distal esophagus which can be seen with reflux. There is some wall prominenceto the distal esophagus which can be seen with inflammation/esophagitis. CBD is measuring dilated. This may be secondary to the patient's cholecystectomy status, however, correlation with lab values s uggested. Moderate amount of stool in the colon which can be seen with constipation. There is hyperdensity in the TI, which may be related to ingested products but should be correlated with any concern for blood products. Urinary bladder wall prominence. This can be seen with infection or underdistention. Lesions in the adrenal gland which do not fulfill criteria for adenomas. An adrenal mass protocol MRI is recommended for further evaluation. Nonspecifict 5 mm left pulmonary nodule, unchanged from prior examination. Comparison with older imaging studies, if available, would be beneficial. Medications Scheduled Meds: multivitamin with minerals 1 tablet Oral Daily atorvastatin 80 mg Oral Daily at Noon clopidogreL 75 mg Oral Daily lamoTRIgine 100 mg Oral BID levothyroxine 100 mcg Oral QAM metoprolol succinate XL 50 mg Oral BID pantoprazole EC 40 mg Oral Daily QUEtiapine 150 mg Oral Nightly torsemide 20 mg Oral Daily sodium chloride 0.9 % (flush) 5 mL Intravenous BID baclofen 5 mg Oral BID white petrolatum-mineral oiL Topical (Top) Daily senna-docusate 2 tablet Oral BID polyethylene glycoL (MIRALAX) oral powder 17 g Oral Daily piperacillin-tazobactam 3.375 g Intravenous Q8H PRN Meds:bisacodyL, ondansetron, sodium chloride 0.9 % (flush), lidocaine, melatonin, naloxone, oxyCODONE OR oxyCODONE, oxyCODONE, acetaminophen Assessment & Plan: Oksana Betancourt is a 58 y.o. female with PMH significant for ASCVD s/p CRIS x7, AV stenosis s/p replacement, hypothyroidism, PAF on Eliquis, hx of Hodgkin's lymphoma in her 20s s/p mantle radiation therapy, and triple negative breast cancer with known met to [address] planned for upcoming prophylactic bilateral mastectomy presenting as a transfer from [facility] where she presented with nausea, vomiting, and RUQ pain. Labs at OSH remarkable for T bili 1.62, AST 172, ALT 93, alk phos 4732 with moderately dilated CBD on CT AP, overall concerning for obstructive biliary process. Right upper quadrant ultrasound was performed here which showed CBD 1 cm, likely normal and nonspecific in the settingof prior cholecystectomy. GGT was also noted to be elevated to 2038 prompting further evaluation with MRCP as recommended by GI. MRCP showed bile duct ectasia with CBD showing up to 11 mm no evidenceof choledocholithiasis. GI planning for EUS to evaluate further given lab abnormalities. Patient was also noted to have sclerosis to mid left clavicle on CXR at OSH. Bony mets could help to explain elevation in alk phos. Oncology has been consulted for guidance on imaging preference especially in the setting of planned upcoming mastectomy as this could record changer. OSH labs also remarkable for acute JONATHAN with BUN 43, creatinine 5.7. UA concerning for infection andpatient was started on IV Zosyn. Patient was also noted to be retaining urine on bladder ultrasoundand required straight catheterization x 1. Retroperitoneal ultrasound showed no evidence of hydronep hrosis. Creatinine improving with fluid resuscitation and treatment of UTI. Will continue to BladderScan periodically to ensure she is not retaining. Urine culture resulted with greater than 100,000 CFU per mL E faecium. Antibiotics transition to ampicillin and ID consulted given high percentage ofVRE associated with this organism. Will ultimately tailor antibiotics to susceptibilities. #RUQ pain #Elevated alk phos/GGT -S/p cholecystectomy -GI consulted -RUQUS: CBD 1 cm -MRCP: bile duct ectasia with CBD 11mm, no evidence of cholelithiasis -Pending: mitochondrial antibody, smooth muscle antibody, liver/kidney microsome type 1 antibody -Zofran PRN -NPO midnight for possible EUS #JONATHAN #E faecium UTI #Urinary retention -Creatinine 5.7 at OSH -S/p IVF resuscitation with improvement -S/p IV Zosyn -RP US: no hydronephrosis -S/p straight cath x1 for retention likely 2/2 UTI -Bladder scan qshift or if changes in UO -CTM, if improvement plateaus will involve nephro -C/w Ampicillin -ID consulted #ASCVD with h/o [place] and PCI #Non-rheumatic aortic valve stenosis - S/p Edd 2021 #Ischemic cardiomyopathy -Follows with Dr. Montenegro -C/w statin -C/w plavix -C/w torsemide #Bipolar disorder -C/w lamictal, seroquel #Hypothyroidism - -C/w home synthroid #GERD -C/w home PPI #PAF -Hold home Eliquis, can resume post procedurally -C/w home metoprolol #Malignant neoplasm of upper-outer quadrant of left breast in female, estrogen receptor negative - Follows with Dr. Prater #Sclerosis of mid left clavicle on CXR -Hold home percocet -C/w home baclofen -Oxycodone scale, PRN tylenol -Onc consulted #Routine Diet: Regular diet NPO diet (Give Meds) DVT Prophylaxis: DOAC SCD GI Prophylaxis: PPI Code Status: Attempt Cardiopulmonary Resuscitation - Inpatient Dispo: Pending clinical course Elda Gaxiola MD [facility] Medicine 07/10/24 3:27 PM IPI Certification I certify that I am a [facility] credentialed attending provider with admitting privileges and that the patient meets or has met medical necessity to require an inpatient IPI level of care meeting a minimumof two midnights or is on the [facility] inpatient only procedure list (status C) due to: acute kidney injury necessitating close monitoring of fluid balance such as intravenous fluids and/or titration of medication to achieve optimal effect and minimize the chance of immediate or severe side effects * Amanda Wall, RD - 07/10/2024 11:17 AM EDT Nutrition Consult Note Oksana Betancourt is a 58 y.o. female presenting with abdominal pain, nausea and vomiting. Chronic medical conditions include breast cancer, CAD s/p CRIS x7, aortic valve stenosis s.p replacement, hypothyroidism, and PAF on Eliquis. 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 States she has been unable to eat or drink anything since symptom onset and on 07/07 she developed RUQ pain. She describes the pain as that waxing and waning, nagging in quality and rates it a 5/10 in intensity . Associated sxms include emesis ~ 10 times and fatigue. Denies diarrhea, constipation, fevers , chills hematemesis, or coffee ground emesis. Interval History No data found. Reason for Assessment: Consult, Malnutrition Evaluation Nutrition Recommendations: Regular Diet Chocolate CIB 1x/day (346kcal and 14g protein) Assistance with meal ordering appreciated Record % PO intake Suggest daily multivitamin - pended Monitor and replete lytes as indicated Monitor BM Twice weekly weights to trend - standing scale as able Severe protein calorie malnutrition identified as outlined below. I was able to discuss plan with provider Medicine 2500 Current Nutrition Regimen: Active Orders Diet Regular diet Frequency: Effective Now Number of Occurrences: Until Specified Assessment: Lab Results Component Value Date NA 142 07/10/2024 NA 142 04/17/2024 K 3.7 07/10/2024 K 4.5 04/17/2024 CL 102 07/10/2024 CL 106 04/17/2024 CO2 25 07/10/2024 CO2 25 04/17/2024 BUN 39 (H) 07/10/2024 BUN 21 (H) 04/17/2024 CREATININE 3.12 (H) 07/10/2024 CREATININE 1.36 (H) 04/17/2024 ESTGFR 45 (L) 04/17/2024 MAGNESIUM 0.87 06/05/2024 MAGNESIUM 0.99 12/04/2023 CALCIUM 9.0 07/10/2024 CALCIUM 9.3 04/17/2024 PHOS 3.7 07/10/2024 PHOS 5.2 (H) 12/04/2023 AST 124 (H) 07/10/2024 AST 18 04/17/2024 ALT 58 (H) 07/10/2024 ALT 16 04/17/2024 ALKPHOS 2,487 (H) 07/10/2024 ALKPHOS 145 (H) 04/17/2024 BILITOT 1.2 07/10/2024 BILITOT 0.2 04/17/2024 BILIDIR <0.2 06/01/2024 BILIDIR 0.2 11/28/2023 TRIG 208 06/01/2024 TRIG 93 11/29/2023 HA1C 5.3 11/29/2023 No results found for: POCGLU Patient Lines/Drains/Airways Status Active Nutritional LDAs Name Placement date Placement time Site Days PIV 07/09/24 0000 20 gauge median cubital vein (antecubital fossa), left 07/09/24 0000 -- 1 Implanted Port 03/23/24 1443 Single Lumen infraclavicular fossa, right 03/23/24 1443 -- 109 Oxygen Therapy / Airway Device: None (Room air) Shift Pressure Injury Prevention Occiput: No Injury Thoracic Spine: No Injury Sacral: No Injury Ischial - left: No Injury Ischial - right: No Injury Heel - left: No Injury Heel - right: No Injury Elbow - left: No Injury Elbow - right: No Injury Device Sites: O2 sat monitor, IV sites Last Bowel Movement: (BI ANALYST- pt believes 07/06-) Intake/Output Summary (Last 24 hours) at 07/10/2024 1120 Last data filed at 07/10/2024 0928 Gross per 24 hour Intake 457.5 ml Output 1200 ml Net -742.5 ml Relevant medications: levothyroxine, metoprolol succinate, Protonix, Miralax, Pericolace, tosemide Anthropometrics: Admit Weight: 92.62 kg Estimated body mass index is 33.46 kg/m?? as calculated from the following: Height as of this encounter: 166.4 cm (5' 5.5). Weight as of this encounter: 92.6 kg (204 lb 3.2 oz). [place] Body Weight (IBW) (kg): 57.95 Weight Loss: unintentional Duration of Weight Loss: 3 Months Weight Lost: 13.6kg % of Weight Lost: 12.8% Wt Readings from Last 10 Encounters: 07/09/24 92.6 kg (204 lb 3.2 oz) 07/02/24 94.3 kg (208 lb) 06/12/24 99.1 kg (218 lb 8 oz) 06/05/24 96 kg (211 lb 11.2 oz) 05/29/24 102.5 kg (226 lb) 05/08/24 104.1 kg (229 lb 6.4 oz) 04/17/24 106.2 kg (234 lb 2.1 oz) 03/28/24 105.7 kg (233 lb 0.4 oz) 03/14/24 106.2 kg (234 lb 2.1 oz) 02/28/24 110.7 kg (244 lb 0.8 oz) Patient Vitals for the past 168 hrs: Weight 07/09/24 0100 92.6 kg (204 lb 3.2 oz) Weight Source: Reported Estimated / Assessed Needs: Fluid Requirements: Estimated Fluid Requirement Method: Weight Based Method Weight Based Method: 30 Weight Based Calculation: 2778 mL Kcal / K - 2315 Kcal (20 Kcal/Kg - 25 Kcal/Kg) Estimated Protein Needs: 70 g - 87 g (1.2 g/Kg - 1.5 g/Kg) Nutrition intake and intake history / interview: 07/10: Nutrition consulted for malnutrition evaluation, service writer met with Oksana at bedside. Oksana reports nausea and emesis since 07/04 (emesis 10x/day). She has been unable to tolerate po intake until yesterday, when she was able to eat pudding, fruit, and a baked potato at dinner, she reports this is the most she has eaten since 07/04 (<50% EER x 5 days). She also notes nausea since start of chemotherapy ~3 months ago. She has been eating less during this time and weight has gone down, nowwith 13.6kg lost since 04/17/24, 12.8% weight loss in 3 months is clinically significant. NFPE findings show mild lean muscle wasting. She denies difficulty chewing and swallowing. NKFA. She takes a daily multivitamin, fish oil, and iron at home. Now that she is able to tolerate PO intake, we discussed ONS, she dislikes Ensure/Boost, but is agreeable to trial of chocolate CIB 1x/day. No data found. Nutrition Focused Physical Exam: Performed (07/10/24 by HD) . Subcutaneous Fat Loss Orbital region: None present Upper arm region (triceps/biceps): None present Thoracic and Lumbar regions (ribs, lower back, and maxillary line): None present Lean Muscle Loss Sikhism region (temporalis muscle): Mild Clavicle bone region (pectoralis major): Mild Dorsal hand (interosseous muscle): None present Shoulder (deltoid): Mild Scapular bone region (latissimus dorsi, trapezius muscles): Not assessed Thigh region (quadriceps muscle): None present Posterior calf region (gastrocnemius muscle): None present Fluid Accumulation Fluid Accumulation: Not assessed Malnutrition Diagnosis: Identified: less than or equal to 50% of estimated energy requirement for greater than or equal to 5 days, greater than 7.5% weight loss in 3 months, and Mild Lean Muscle Loss is consistent with Severe protein-calorie malnutrition in the setting of acute illness or injury (Esme, JPEN J Parenteral Enteral Nutr. 2011; 36(3): 273-83) Nutrition to continue to follow up while inpatient Amanda Tadeo, MS, RDN, LD Clinical Nutrition * Stacia Bhat, PT - 07/10/2024 9:30 AM EDT Document Type: contact Total Minutes, Physical Therapy: 0 Reason: Pt chart reviewed and discussed with RN plan for today. Pt pending MRCP today, currently NPO. Will continue to follow for PT evaluation at appropriate and able. Pager: [phone] Stacia Bhat, PT Date: 07/10/24 Physical Therapy Rehabilitation Department * Mildred Ruiz RN - 07/10/2024 9:26 AM EDT During VAS Purposeful Rounding, an assessment of your patient's venous access was performed fby theVascular Access Service. The following tasks were performed if needed and communicated to the bedside RN Choose all that apply: [] PIV(s) checked for patency if daily need for flush needs to be performed [] CVAD was checked for patency if daily flush needs to be performed [] IV tubing clamped or capped if needed [] Visual inspection of your patient's central line dressing integrity [x] Review of indications for vascular access [] A photo was taken of your patient's central line [x] Visual inspection of your patient's IV dressing integrity [] Other - patient has right mediport, currently not accessed. While rounding an intervention was needed and communicated to the bedside RN Choose all that apply: [] Nonocclusive IV dressing addressed [] Nonocclusive CVAD dressing (please identify type of line) [] Infusion site leaking [] IV not patent and removed [] IV not indicated [] IV placed [] IV restarted [] Implanted Port, PICC or ML dressing changed if needed (either PRN or weekly) [] Other * Ajit Leidy S - 07/10/2024 9:[address] [facility] Medicine Progress Note Patient info: Name: Oksana Betancourt : 1965 PCP: Gaudencio Scalse DO PCP phone number: [phone] Date of Admission: 07/09/2024 ( Hospital Day 1 day ) Attending:Elda Gaxiola MD ID: Oksana Betancourt is a 58 y.o. female with PMHx breast cancer on chemotherapy, CAD s/p CRIS x 7, aortic valve stenosis s/p replacement, hypothyroidism, and Afib (on Eliquis) who is currently admitted to hospital medicine for abdominal pain. 24 Hour Events/Subjective: -NAEO -Patient was assessed at bedside this AM. She endorses RUQ that is crampy in nature. --Patient denied any fever, chills, chest pain, palpitations, shortness of breath, cough, nausea, vomiting, or dysuria --Last Bowel Movement: (BI ANALYST- pt believes 07/06-) Objective: Vitals Last value Range last 24 hrs Temperature Temp: 37 ??C (98.6 ??F) Temp: [36.8 ??C (98.2 ??F)-37.4 ??C (99.3 ??F)] Heart Rate Heart Rate: 62 Heart Rate: [62-81] Blood Pressure BP: 132/51 BP: (100-145)/(49-56) Art Line BP BP (Arterial Line): -- MAP (NBP): [66 mmHg-86 mmHg] Respiratory Rate Resp: 16 Resp: [16-18] SpO2 SpO2: 98 % SpO2: [97 %-100 %] Oxygen Delivery Oxygen Therapy O2 Device: None (Room air) Intake/Output Summary (Last 24 hours) at 07/10/2024 0910 Last data filed at 07/10/2024 0828 Gross per 24 hour Intake 400 ml Output 1200 ml Net -800 ml Patient Vitals for the past 168 hrs: Weight 07/09/24 0100 92.6 kg (204 lb 3.2 oz) Admit wt: 92.62 kg Physical Exam: Gen: in bed in NAD; alert, oriented, conversant HEENT: anicteric, EOMI intact, CV: RRR, no murmurs/rubs/gallops Resp: CTAB, no crackles/wheezes/ronchi, normal work of breathing Abd: tenderness to palpation RUQ, normal bowel sounds, soft, no rebound or guarding Ext: 2+ distal pulses, no pedal edema Neuro: no focal deficits noted, moves all extremities spontaneously Skin: no rashes, lesions, or ulcerations noted Lines/Drains/Airways Lines: Implanted Port 03/23/24 1443 Single Lumen infraclavicular fossa, right (Active) Port Accessed Date 05/29/24 05/29/24 1030 Port Accessed Time 72904/17/24 0700 Access Needle 19 gauge;3/4 in length 04/17/24 0700 Pain Prevention intradermal injection 04/17/24 0700 Indication/Daily Review of Necessity Medications known to cause phlebitis (vasopressors, concentrated electrolytes, TPN, chemotherapy) 05/29/24 1030 Site Preparation/Maintenance dressing: dry and intact 05/29/24 115 Lumen Patency/Care flushed without difficulty;blood return present 05/29/24 115 Phlebitis 0-->no symptoms 05/29/24 115 Infiltration 0-->no symptoms 05/29/24 115 Site Signs/Symptoms no redness;no swelling;no warmth;no pain 03/28/24 07 Vascular Access Port Interventions blood specimen obtained and sent to lab 04/17/24 0700 Port De-access Date 05/08/24 05/08/24 1230 Port De-Access Time 1408 04/17/24 1408 Port De-Access Indication infusion complete 05/08/24 1230 PIV 07/09/24 0000 20 gauge median cubital vein (antecubital fossa), left (Active) Indication/Daily Review of Necessity medication therapy intermittent 07/09/242022 Site Preparation/Maintenance dressing: dry and intact 07/10/24529 Securement catheter stabilization device, secured with 07/09/242022 Patency/Maintenance flushed without difficulty;infusing 07/10/24529 Phlebitis 0-->no symptoms 07/10/24529 Infiltration 0-->no symptoms 07/10/24529 Labs: Recent Labs 07/10/24 0507/09/24 0502 WBC 10.15* 9.89* HGB 8.1* 8.0* HCT 24.5* 24.8* PLATELET 412* 441* MCV 92.1 94.7* Recent Labs 07/10/24 0526 07/10/24 0215 07/09/24 1610 07/09/24 0502 NA 142 -- 142 142 CL 102 -- 100 103 CO2 25 -- 23 23 K 3.7 -- 3.7 3.8 PHOS -- 3.7 -- -- CALCIUM 9.0 -- 9.6 9.2 BUN 39* -- 39* 37* CREATININE 3.12* -- 3.37* 4.07* LFTs Recent Labs 07/10/24 0526 07/09/24 0502 PROT 7.5 7.6 ALBUMIN 3.2 3.1* AST 124* 124* ALT 58* 61* ALKPHOS 2,487* 2,558* BILITOT 1.2 1.2 Endocrine Recent Labs 06/01/24 0144 04/17/24 0729 03/28/24 0711/28/23 1110 TSH 0.60 3.58 3.34 0.51 Microbiology: Microbiology Results (Last 30 days) No results found for the last 720 hours. Imaging: Results for orders placed or performed during the hospital encounter of 07/09/24 US Retroperitoneal Complete (Exam End: 07/09/2024 10:53 AM) Result Value WORKSTATION ID [id number] Impression 1. Slightly limited exam with no evidence of hydronephrosis or nephrolithiasis. 2. Stable mild right renal atrophy. I have personally reviewed the image(s) and the resident's interpretation and agree with the findings, David Alvarado MD at 07/09/2024 11:07 AM Thank you for letting us participate in the care of this patient. If you are a health care provider and have any questions regarding this report, please contact the number above. For patients who have questions, please contact the health primary care coordinator that requested your imaging first. David Alvarado, Staff Physician Electronically Signed Final Report 07/09/2024 11:16 am US Abdomen Limited (Exam End: 07/09/2024 11:16 AM) Result Value WORKSTATION ID [id number] Impression 1. Normal hepatic parenchymal echogenicity and contour. [...] resident's interpretation and agree with the findings, David Alvarado MD at 07/09/2024 11:45 AM Thank you for letting us participate in the care of this patient. If you are a health care provider and have any questions regarding this report, please contact the number above. For patients who have questions, please contact the health primary care coordinator that requested your imaging first. David Alvarado, Staff Physician Electronically Signed Final Report 07/09/2024 11:53 am MRI Cholangiopancreatography WO Contrast (Exam End: 07/09/2024 10:28 PM) Result Value WORKSTATION ID [id number] Impression Bile duct ectasia with CBD measuring up to [address] evident choledocholithiasis. Thank you for letting us participate in the care of this patient. If you are a health care provider and have any questions regarding this report, please contact the number below. For patients who have questions please contact the health primary care coordinator that requested your imaging first. Medications Scheduled Meds: atorvastatin 80 mg Oral Daily at Noon clopidogreL 75 mg Oral Daily lamoTRIgine 100 mg Oral BID levothyroxine 100 mcg Oral QAM metoprolol succinate XL 50 mg Oral BID pantoprazole EC 40 mg Oral Daily QUEtiapine 150 mg Oral Nightly torsemide 20 mg Oral Daily sodium chloride 0.9 % (flush) 5 mL Intravenous BID baclofen 5 mg Oral BID white petrolatum-mineral oiL Topical (Top) Daily senna-docusate 2 tablet Oral BID polyethylene glycoL (MIRALAX) oral powder 17 g Oral Daily piperacillin-tazobactam 3.375 g Intravenous Q8H Continuous Infusions: PRN Meds:sodium chloride 0.9 % (flush), lidocaine, melatonin, naloxone, oxyCODONE OR oxyCODONE,oxyCODONE, acetaminophen Assessment & Plan: Oksana Betancourt is a 58 y.o. female with PMHx breast cancer on chemotherapy, CAD s/p CRIS x 7, aortic valve stenosis s/p replacement, hypothyroidism, and Afib (on Eliquis) who is currently admitted to hospital medicine for abdominal pain. She was seen at [facility] on 07/08 and transferred to [facility] [place] [place] for GI evaluation and treatment of possible obstructive biliary process and JONATHAN. Cr on 07/08 was 5.7. Her urinalysis on admission showed leukocyte esterase, pyuria, and bacteruria, which is being treated with Zosyn while cultures are pending. #RUQ pain --s/p cholecystectomy -CT A/P at OSH with dilated CBD suggestive of obstructive biliary process -Abdominal US: CBD 1 cm, normal in setting of cholecystectomy, no evidence of obstruction or choledocholithiasis -MRCP: bile duct ectasia with CBD measuring 11mm, no evidence of choledocholithiasis -Continue Zofran PRN -GI Following, considering EUS # Elevated liver enzymes --Alk phos 2487, AST 124, ALT 58, GGT 8 -Trend LFTs -AMA and anti-smooth muscle antibody sent to rule out autoimmune etiologies -GI following, appreciate recs #JONATHAN --improving, Cr 5.7 >> 3.12 today -Likely in setting of UTI -Renal US: no evidence of hydronephrosis or nephrolithiasis, mild right renal atrophy -Bladder scan #UTI -Urine culture pending -C/w Zosyn, renally dosed #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 Prater -Has mastectomy scheduled for 07/12 -CXR from OSH with sclerotic lesion left clavicle -Heme/Onc consulted for work-up of possible metastasis -Continue pain control Chronic conditions #ASCVD w/ h/o [place] and PCI -Continue Statin, Plavix #Afib -Holding Eliquis -Continue Metoprolol #Ischemic cardiomyopathy -Continue torsemide #Hypothyroidism -Continue Synthroid #Aortic valve stenosis -s/p Edd 2021 -Continue Plavix #GERD -Continue PPI #Routine Diet: Regular diet DVT Prophylaxis: DOAC SCD Code Status: Attempt Cardiopulmonary Resuscitation - Inpatient Dispo: Pending clinical course [facility] Internal Medicine, [facility] Medicine, #[id number] 07/10/24 9:10 AM * Cely Menchaca MD - 07/10/2024 6:50 AM EDT Deep breath GASTROENTEROLOGY & HEPATOLOGY CONSULTATION INPATIENT PROGRESS NOTE ID: Oksana Betancourt is a 58 y.o. female with PMH of breast cancer on chemo, CAD s/p CRIS x 7, CHF, aortic valve stenosis s/p replacement, hypothyroidism, paroxysmal A-fib on Eliquis [facility] pain, nausea and vomiting. GI is being consulted for abnormal LFTs andimaging. Interval History: -MRCP performed overnight demonstrates CBD dilation to 11 mm, no choledocholithiasis -HD stable, afebrile -Continues on Zosyn for UTI -LFTs notable for alk phos 2487 from 2558, AST stable at 124, ALT 58, T. bili 1.2 -This morning, patient reporting reporting ongoing abdominal pain, unchanged from yesterday. Active Hospital Problem List Patient Active Problem List Diagnosis Code Malignant neoplasm of upper-outer quadrant of left breast in female, estrogen receptor negative C50.412, Z17.1 ASCVD (arteriosclerotic cardiovascular disease) I25.10 Cardiomyopathy, ischemic I25.5 Nonrheumatic aortic valve stenosis I35.0 PAF (paroxysmal atrial fibrillation) I48.0 Abdominal pain R10.9 Bilious vomiting with nausea R11.14 Gastroesophageal reflux K21.9 Hypothyroidism E03.9 Elevated alkaline phosphatase level R74.8 JONATHAN (acute kidney injury) N17.9 Scheduled Meds: atorvastatin 80 mg Oral Daily at Noon clopidogreL 75 mg Oral Daily lamoTRIgine 100 mg Oral BID levothyroxine 100 mcg Oral QAM metoprolol succinate XL 50 mg Oral BID pantoprazole EC 40 mg Oral Daily QUEtiapine 150 mg Oral Nightly torsemide 20 mg Oral Daily sodium chloride 0.9 % (flush) 5 mL Intravenous BID baclofen 5 mg Oral BID white petrolatum-mineral oiL Topical (Top) Daily senna-docusate 2 tablet Oral BID polyethylene glycoL (MIRALAX) oral powder 17 g Oral Daily piperacillin-tazobactam 3.375 g Intravenous Q8H Continuous Infusions: PRN Meds:.sodium chloride 0.9 % (flush), lidocaine, melatonin, naloxone, oxyCODONE OR oxyCODONE, oxyCODONE, acetaminophen Physical Examination Vitals: 07/10/24 0018 07/10/24 0030 07/10/24 0319 07/10/24 0341 BP: 100/49 109/49 BP Location (NBP): Right arm Right arm Patient Position: Sitting Sitting Pulse: 74 62 Resp: 16 Temp: 37 ??C (98.6 ??F) 37.4 ??C (99.3 ??F) TempSrc: Oral Oral SpO2: 100% 99% Weight: Height: PHYSICAL EXAM GENERAL: No acute distress, alert and oriented HEENT: AT/NC, sclerae anicteric, moist mucous membranes ABDOMEN: Soft, normoactive bowel sounds, non-tender, non-distended EXT: Warm, no edema SKIN: No jaundice Pertinent Recent labs CBC Lab Results Component Value Date White Blood Cell 10.15 (H) 07/10/2024 Hemoglobin 8.1 (L) 07/10/2024 Hematocrit 24.5 (L) 07/10/2024 Platelet 412 (H) 07/10/2024 Lab Results Component Value Date Sodium 142 07/10/2024 Potassium 3.7 07/10/2024 Chloride 102 07/10/2024 Carbon Dioxide 25 07/10/2024 Blood Urea Nitrogen 39 (H) 07/10/2024 Creatinine 3.12 (H) 07/10/2024 Glucose 100 07/10/2024 LFT's Lab Results Component Value Date Alkaline Phosphatase 2,487 (H) 07/10/2024 Aspartate Aminotransferase 124 (H) 07/10/2024 Albumin 3.2 07/10/2024 Bilirubin, Total 1.2 07/10/2024 Alanine Aminotransferase 58 (H) 07/10/2024 Protein, Total 7.5 07/10/2024 Pertinent Endoscopic Procedures/Reports: Reviewed Pertinent Recent Imaging: Reviewed Impression: Oksana Betancourt is a 58 y.o. female with PMH of breast cancer on chemo, CAD s/p CRIS x 7, CHF, aortic valve stenosis s/p replacement, hypothyroidism, paroxysmal A-fib on Eliquis who presents from [facility] on 07/08 with abdominal pain, nausea and vomiting. GI is being consulted for abnormal LFTs and imaging. It is very uncommon for biliary pathologies to lead to alk phos in the thousands. Additionally, MRCP performed overnight demonstrates CBD dilation to 11 mm but there was no evidence of choledocholithiasis. Case was discussed with our advanced endoscopy team, and recommendation was for EUS for further evaluation of ampullary stone versus microlithiasis. Timing TBD, likely Tue/ pending availability. If endoscopic evaluation is unremarkable, it is possible her CBD dilation to 1 cm is a normal variant in the setting of her cholecystectomy. Additionally, given evidence of her sclerotic bone findingon imaging, is likely her elevated alk phos is also in the setting of bone metabolism. Additionally, would not anticipate an alk phos this elevated for isolated bili obstruction alone. Please consider obtaining a fractionated alkaline phosphatase to evaluate this further. RECOMMENDATIONS: -Trend LFTs -Follow-up ASMA, AMA, anti-LKM -N.p.o. past midnight for tentative EUS tomorrow vs This case was discussed with Dr. Heller. Recommendations were discussed with primary team. Cely Menchaca M.D. Fellow in Gastroenterology and Hepatology Pager #[phone] 07/10/2024 Associated attestation - Juanito Heller MD - 07/10/2024 2:31 PM EDT Attending attestation: I interviewed and examined the patient with Dr. Menchaca on rounds. I confirm the history and keyphysical findings outlined in this note. The assessment and plan were formulated in discussion withme at the time of this encounter, and I agree with them as documented. Juanito Heller MD Section of Gastroenterology [facility] * Miriam Lambert RN - 07/10/2024 6:11 AM EDT Illness Severity Stable Patient Summary Reason for admission: Abdominal pain, N/V Relevant PMH: Breast cancer on chemo, CAD s/p CRIS x 7, CHF, aortic valve stenosis s/p replacement, hypothyroidism, paroxysmal A-fib on Eliquis Significant 24 hour events: 07/09 PM: Pt A+Ox4, VSS on RA. Tele continued, remains in NSR w/ L bundle branch block. Denies nausea and SOB. Endorsed 01/26 LRUQ abdominal pain, PRN 5mg oxycodone given x1 with good effect. Pt off-unit for Cholangiopancreatography MRI, see results review. IV Zosyn infused per NOV. Voiding adequateamounts, pt up independently to Br. Kept NPO after midnight for possible MRCP today. Pt resting/sleeping between care. Action List NPO for possible MRCP Trend LFTs Endoscopic US? * Stacia Bhat, PT - 07/09/2024 2:41 PM EDT Document Type: contact Total Minutes, Physical Therapy: 0 Reason: PT consult received and pt chart reviewed. Pt reports she is near her baseline. Defers working withPT today for evaluation, however would like PT to check back in tomorrow due to fatigue. PT to follow up for evaluation tomorrow as appropriate. Pager: [phone] Stacia Bhat, PT Date: 07/09/24 Physical Therapy Rehabilitation Department * Amelia Rowland V, OT - 07/09/2024 9:36 AM EDT Occupational Therapy Evaluation Patient profile: Oksana Betancourt is a 58 y.o. female admitted on 07/09/2024 with abdominal pain, nausea and vomiting. Chronic medical conditions include breast cancer, CAD s/p CRIS x7, aortic valve stenosis s.p replacement, hypothyroidism, and PAF on Eliquis. She was seen at [facility] on 07/08 and transferred to [facility] [place] [place] for GI evaluation and treatment of possible obstructive biliary process and JONATHAN. She currently c/o nausea that began 4 days ago, 07/04. States she has been unable to eat or drink anything since symptom onset and on 07/07 she developed RUQ pain. She describes the pain as that waxing and waning, nagging in quality and rates it a 5/10 in intensity. Associated sxms include emesis ~ 10 times and fatigue. Refer to chart for further medical details. Past Medical History: Diagnosis Date CAD (coronary artery disease) Cancer COPD (chronic obstructive pulmonary disease) GERD (gastroesophageal reflux disease) Paroxysmal A-fib Past Surgical History: Procedure Laterality Date SECTION CHOLECYSTECTOMY HYSTERECTOMY IR MEDIPORT PLACEMENT 03/23/2024 IR Mediport Placement 03/23/2024 Cely Schmtit PA [facility] INTERVENTIONL RAD MAMMO US BIOPSY LEFT Left 03/26/2024 Mammo Us Biopsy Left 03/26/2024 Ana Weber MD [facility] RAD MAMMOGRAPHY SPLENECTOMY Social History: Patient lives in an independent custodial facility. Her brother lives closeby. Home Setup: no stairs, tub shower, grab bars near the shower. No shower chair. Baseline ADL/Mobility: IND with all ADL/IADL tasks, no device used. Pt receives home health [id number] a week, nurse assists with medications, taking vitals, etc. DME: none Precautions/Special Considerations: fall risk Activity Orders: Activity as tolerated Subjective: I dont have any problems with doing dressing or bathing Objective: Seen today for OT evaluation. RN cleared session. Pt is on sips and chips diet today pending imaging. Cognitive Status/Behavior: Behavior / Mood: alert and cooperative, pleasant Alert and oriented. Follows commands WNL Attention: WFL Safety awareness: WFL and good safety precautions Vision & Perception: corrective lenses multimedia coordinator, though pt was not wearing them today. Communication: WFL Hearing: WFL Range of motion, strength, coordination: Bilateral UEs are within functional limitations per gross and fine motor observation. Some generalized weakness observed and reported, but pt able to perform ADL and mobility tasks WFL. Activities of Daily Living: Self-feeding: IND Grooming: IND standing at sinkside to complete oral hygiene and wash face. Dressing: UB: IND LB: IND, seated EOB Footwear: IND to don/doff lead c developer socks. Bathing: IND for UB sponge bath. Toileting: Transfer: IND Hygiene: IND, some incontinence, pt currently straight catheterizing. [facility] AM-PAC 6 Clicks Daily Activity Inpatient Short Form How much help from another person does the patient currently need... 1. Putting on and taking off regular lower body clothing? 4 - None 2. Bathing (including washing, rinsing, drying)? 4 - None 3. Toileting, which includes using toilet, bedpan or urinal? 4 - None 4. Putting on and taking off regular upper body clothing? 4 - None 5. Taking care of personal grooming such as brushing teeth? 4 - None 6. Eating meals? 4 - None Raw Score: 24 Standardized Score: 57.54 CMS 0-100% Score: 0% Functional Mobility: Supine to sit: IND Sit to stand: IND from EOB Ambulation: IND with no device in room, no LOB noted Stand to sit: IND Sit to supine: IND Balance: Static seated balance: Independent Dynamic seated balance: Independent Static standing balance: Independent Dynamic standing balance: Independent Vitals: VSS throughout session At Rest SpO2 99% Heart Rate 76 Blood Pressure 146/58 Pain: no reports of pain throughout session. Skin: appears WFL Education: Safety during ADL's and functional mobility and Increased participation in self-care andADL's within hospital environment Patient status, treatment, and mobility recommendations discussed with nursing. Assessment: Pt has been seen for occupational therapy evaluation. Oksana Betancourt presents with the following performance skill deficits and client factors: decreased activity tolerance and limited endurance. Pt demonstrates the ability to utilize toilet with SBA/IND, no device used for ambulation. Able to perform LB dressing of underwear seated EOB with IND. Performed sinkside ADLs standing at sink with no LOB, good endurance for self-cares. Bed mobility and ambulation with SBA, no safety deficits observed. Pt has support from her brother who lives nearby, able to provide checkins. Pt has 2x/week nursing assistance for med management and vitals, anticipate this service to continue. Anticipate that pt will return home with assistance once medically ready. Do not anticipate further OT needs while hospitalized, but OT will continue to monitor if there is a change in functional status. Equipment Needs Upon Discharge (OT): None Consult Recommendations: No other consults recommended at this time Anticipated Discharge Disposition (OT): home Activity Recommendations: Ambulate as tolerated with SBA, IND within room Encourage participation in ADL's by providing set up assist on tray table and physical assist only as needed Encourage ind with dressing tasks while seated EOB. Plan: OT: Therapy Frequency (OT): Monitor Total Minutes, Occupational Therapy: 18 (([id number] oexu)) OT Evaluation Code Rationale: Diagnosis & Pertinent Co-Morbidities affecting Plan of Care: see PMHx Occupational Profile & Client History: Brief Expanded Extensive X Assessment of Occupational Performance: 1-3 performance deficits X 3-5 performance deficits 5 + performance deficits Clinical Decision Making: Low Moderate High X Clinical decision making of moderate complexity using standardized patient assessment instrument and measurable assessment of functional outcome. Pager: [phone] Amelia Rowland OT 07/09/2024 Occupational Therapy Rehabilitation Department documented in this encounter H&P Notes * Davie Swenson MD - 07/11/2024 3:13 PM EDT Procedure: eus +/- ercp Indication: abnoaml imaging and lfts History of Present Illness: Oksana Betancourt is a 58 y.o. woman with abnormal imaging and lfts herefor eus +/- ercp Patient Active Problem List Diagnosis Code Malignant neoplasm of upper-outer quadrant of left breast in female, estrogen receptor negative C50.412, Z17.1 ASCVD (arteriosclerotic cardiovascular disease) I25.10 Cardiomyopathy, ischemic I25.5 Nonrheumatic aortic valve stenosis I35.0 PAF (paroxysmal atrial fibrillation) I48.0 Abdominal pain R10.9 Bilious vomiting with nausea R11.14 Gastroesophageal reflux K21.9 Hypothyroidism E03.9 Elevated alkaline phosphatase level R74.8 JONATHAN (acute kidney injury) N17.9 Severe protein-calorie malnutrition E43 Medications: Reviewed in EDH No Known Allergies Social History/Family History: Reviewed in EDH. No changes Exam: Patient Vitals for the past 24 hrs: Temp Heart Rate From SP02 Pulse Resp BP SpO2 O2 Device 07/10/24 1636 37.4 ??C (99.3 ??F) 77 bpm -- 16 93/44 91 % RA 07/10/24 1715 -- (!) 108 bpm -- -- -- 100 % -- 07/10/24 1933 -- -- 73 -- -- -- -- 07/10/24 2006 36.3 ??C (97.3 ??F) 75 bpm -- 16 122/58 95 % RA 07/11/24 0022 -- 73 bpm -- 16 115/78 98 % RA 07/11/24 0342 -- -- 61 -- -- -- -- 07/11/24 0419 37 ??C (98.6 ??F) 69 bpm -- 20 117/78 98 % RA 07/11/24 0755 36.9 ??C (98.4 ??F) 72 bpm -- 18 108/61 99 % RA 07/11/24 1134 36.7 ??C (98.1 ??F) 68 bpm -- 18 121/58 100 % RA 07/11/24 1357 -- -- -- -- -- -- RA 07/11/24 1427 36.1 ??C (97 ??F) -- 67 -- 131/59 99 % RA Axox3, nad Anicteric, MMM CTAB RRR, no m/r/g abd soft nt nd +bs Assessment and Plan: Proceed with ERCP: EUS: ASA Grade: ASA 3 - Patient with moderate systemic disease with functional limitations Mallampati score:III (soft palate, base of uvula visible) Sedation plan: MAC/GETA Risks and benefits of the procedure were discussed with the patient. Consent has been signed. Davie Swenson MD * Srikanth Patel MD - 07/09/2024 1:25 AM EDT Images from the original note were not included. Hospital Medicine Admission History & Physical Patient Name: Oksana Betancourt Primary Care Provider: Gaudencio Scales DO Admission Date: 07/09/2024 Date of Service 07/09/2024 CHIEF COMPLAINT Abdominal pain, nausea and vomiting HISTORY OF PRESENT ILLNESS Oksana Betancourt is a 58 y.o. female presenting with abdominal pain, nausea and vomiting.Chronic medical conditions include breast cancer, CAD s/p CRIS x7, aortic valve stenosis s.p replacement, hypothyroidism, and PAF on Eliquis. She was seen at [facility] on 07/08 and transferred to [facility] [place] [place] for GI evaluation and treatment of possible obstructive biliary process and JONATHAN. She currently c/o nausea that began 4 days ago, 07/04. States she has been unable to eat or drink anything since symptom onset and on 07/07 she developed RUQ pain. She describes the pain asthat waxing and waning, nagging in quality and rates it a 5/10 in intensity . Associated sxms include emesis ~ 10 times and fatigue. Denies diarrhea, constipation, fevers , chills hematemesis, or coffee ground emesis. PREVIOUS HISTORY ALLERGIES: No Known Allergies MEDICAL/SURGICAL HISTORY: Patient Active Problem List Diagnosis Date Noted Abdominal pain 07/09/2024 Bilious vomiting with nausea 07/09/2024 Gastroesophageal reflux 07/09/2024 Hypothyroidism 07/09/2024 Elevated alkaline phosphatase level 07/09/2024 JONATHAN (acute kidney injury) 07/09/2024 ASCVD (arteriosclerotic cardiovascular disease) 07/02/2024 Cardiomyopathy, ischemic 07/02/2024 Nonrheumatic aortic valve stenosis 07/02/2024 PAF (paroxysmal atrial fibrillation) 07/02/2024 Malignant neoplasm of upper-outer quadrant of left breast in female, estrogen receptor negative 02/22/2024 Past Surgical History: Procedure Laterality Date SECTION CHOLECYSTECTOMY HYSTERECTOMY IR MEDIPORT PLACEMENT 03/23/2024 IR Mediport Placement 03/23/2024 Cely Schmitt PA [facility] INTERVENTIONL RAD MAMMO US BIOPSY LEFT Left 03/26/2024 Mammo Us Biopsy Left 03/26/2024 Ana Weber MD [facility] RAD MAMMOGRAPHY SPLENECTOMY Family History: Family History Problem Relation Age of Onset Hypertension Mother Skin Cancer Father Asthma Brother Cancer Maternal Uncle suspected, unsure primary Cancer Maternal Grandmother suspected, unsure primary Cancer Paternal Grandmother unsure primary Breast Cancer Paternal Half-Sister 46 of same at age 46 Ovarian Cancer Neg Hx family history includes Asthma in her brother; Breast Cancer (age of onset: 46) in her paternal half-sister; Cancer in her maternal grandmother, maternal uncle, and paternal grandmother; Hypertensionin her mother; Skin Cancer in her father. Social History: Social History Social History Narrative Not on file reports that she quit smoking about 2 years ago. Her smoking use included cigarettes. She started smoking about 42 years ago. She has a 40 pack-year smoking history. She has been exposed to tobacco smoke. She has never used smokeless tobacco. She reports that she does not currently use alcohol. She reports that she does not use drugs. OME MEDICATIONS Medications Prior to Admission Medication Sig Dispense Refill Last Dose fish oil-omega-3 fatty acids (Fish Oil) 1,000 mg capsule Take 2 g by mouth daily. 07/08/2024 torsemide (Demadex) 20 mg tablet Take 1 tablet by mouth daily. 30 tablet 3 07/08/2024 ondansetron (Zofran) 8 mg tablet Take 1 tablet by mouth every 8 hours as needed for Nausea. 60 tablet 0 07/08/2024 diclofenac (Voltaren) 1 % Gel Apply 2 g topically 2 times daily. 200 g 1 Past Week multivitamin (THERAGRAN) Tablet Take 1 tablet by mouth daily. 07/08/2024 iron,carb/vit C/vit B12/folic (IRON 100 PLUS ORAL) Take by mouth. 07/08/2024 atorvastatin (Lipitor) 80 mg tablet Take 1 tablet by mouth Daily at Noon. 90 tablet 3 07/08/2024 clopidogreL (Plavix) 75 mg tablet Take 1 tablet by mouth daily. 90 tablet 3 Past Week ipratropium-albuteroL (Duoneb) 0.5 mg-3 mg(2.5 mg base)/3 mL Solution for Nebulization Take 0.5 mg by nebulization every 4 hours. 1 each 4 Past Week metoprolol succinate XL (Toprol-XL) 50 mg ER 24 hr tablet Take 1 tablet by mouth 2 times daily. 30 tablet 12 07/08/2024 apixaban (Eliquis) 5 mg tablet Take 5 mg by mouth 2 times daily. 07/08/2024 baclofen (Lioresal) 10 mg tablet Take 0.5 tablets by mouth 2 times daily. 07/08/2024 lamoTRIgine (LaMICtal) 100 mg tablet Take 1 tablet by mouth 2 times daily. 07/08/2024 oxyCODONE-acetaminophen (Percocet) 10-325 mg tablet Take 1 tablet by mouth every 8 hours as needed.07/08/2024 QUEtiapine (SEROquel) 100 mg tablet Take 100 mg by mouth nightly. 07/07/2024 levothyroxine (Synthroid) 100 mcg tablet Take 100 mcg by mouth. 07/08/2024 diphenhydrAMINE/aluminum-magnesium hydroxide with simethicone/lidocaine (BMX) (6.67 mg-0.83 mg-13.33 mg-1.33 mg/mL) oral liquid Take 20-30 mLs by mouth every 4 hours as needed. 240 mL 3 07/07/2024 lidocaine (Xylocaine) 2 % Solution Take 1-2 mLs by mouth as needed for Pain (Please drapery counselor patienton equal parts benadryl and Maalox.). 100 mL 1 Unknown QUEtiapine (Seroquel) 50 mg tablet TAKE ONE TABLET BY MOUTH EVERY NIGHT IN ADDITION TO 100MG TABLET. MAY TAKE UP TO 200MG AT BEDTIME IF NEEDED FOR SLEEP 60 tablet 0 07/07/2024 nitroGLYcerin (Nitrostat) 0.[address] 1 tablet under the tongue every 5 minutes as needed for Chest pain. 90 tablet 12 More than a month omeprazole (PRILOSEC) 20 mg capsule 20M Capsule(s), PO, Once daily 07/07/2024 CURRENT INPATIENT MEDICATIONS atorvastatin 80 mg Oral Daily at Noon clopidogreL 75 mg Oral Daily lamoTRIgine 100 mg Oral BID levothyroxine 100 mcg Oral QAM metoprolol succinate XL 50 mg Oral BID pantoprazole EC 40 mg Oral Daily QUEtiapine 150 mg Oral Nightly torsemide 20 mg Oral Daily sodium chloride 0.9 % (flush) 5 mL Intravenous BID baclofen 5 mg Oral BID white petrolatum-mineral oiL Topical (Top) Daily REVIEW OF SYSTEMS Constitutional: Positive for fatigue. Negative for fevers/chills Eyes: Negative for blurry vision, double vision Ears/Nose/Mouth/ Throat: Negative for sore throat, congestion Cardiovascular: Negative for chest pain, palpitations, lower extremity swelling Respiratory: Negative for cough, shortness of breath Gastrointestinal: Positive for abdominal pain, nausea, and emesis. Negative constipation and diarrhea Genitourinary: Negative for dysuria, vaginal discharge Musculoskeletal: Negative for back, joint pain Skin: Negative for rash, itchiness Neurological: Negative for focal neurodeficit, neuropathy PHYSICAL EXAMINATION Vitals: Temp: 36.9 ??C (98.4 ??F) BP: 146/57 Heart Rate: 77 Resp: 16 SpO2: 96 % General: Appears chronically ill. The patient is lying in bed, in no acute distress, able to speak in full sentences, appropriately engaging conversation HEENT: Atraumatic, symmetric face, no scleral icterus or inflammation Cardiovascular: RRR. Systolic murmur loudest at RUSB. No rubs or gallops. Pulm: Breathing is unlabored, breath sounds are clear to auscultation Abd: BS normal. Soft, moderate tenderness to palpation of RUQ. no guarding or rebound. Extremities: Able to move all extremities, no pedal edema bilat Neuro: Conversant, alert and oriented x4, no facial asymmetry, grossly no focal deficits Psych: Normal mood and affect Skin: Warm and dry LABS No results for input(s): WBC, HGB, HCT, PLATELET in the last 168 hours. No results for input(s): NA, K, CL, CO2, BUN, CREATININE in the last 168 hours. No results for input(s): AST, ALT, ALKPHOS, BILITOT, BILIDIR in the last 168 hours. No results for input(s): CALCIUM, MAGNESIUM, PHOS in the last 168 hours. No results for input(s): INR, PT, PTT in the last 168 hours. No results for input(s): CK, TROPONINT in the last 168 hours. No results for input(s): POCGLU in the last 168 hours. IMAGING EKG: N/A No results found for this visit on 07/09/24. ASSESSMENT/PLAN RUQ pain Nausea & vomiting - S/p cholecystectomy. CT A/P at outside facility with dilated CBDsuggestive of obstructive biliary process. IP GI planning for MRCP vs abd US in AM. If fever or hypotension worsens treat for cholangitis. Monitor fever curve IP GI following Start Zofran PO/IV prn Diet NPO @ midnight DVT prophylaxis: Hold relief captain apixaban, SCDs Diet: NPO sips with meds @ midnight Elevated alk phos - Alk phos 4,700 Check ggt CMP in AM, trend ASCVD with h/o [place] and PCI - Follows with Dr. Montenegro Continue relief captain statin, plavix Ischemic cardiomyopathy Continue relief captain torsemide Non-rheumatic aortic valve stenosis - S/p Edd 2021 Continue relief captain plavix as above Bipolar disorder Continue relief captain lamictal, seroquel JONATHAN - Crea: 5.7, BUN 43 on 07/08. 2 to decreased PO intake Renally dose medication Start IV fluid resuscitation Trend renal indices Hypothyroidism - Continue relief captain synthroid GERD Continue relief captain PPI PAF - Hold relief captain Eliquis Continue relief captain metoprolol Malignant neoplasm of upper-outer quadrant of left breast in female, estrogen receptor negative - Follows with Dr. Prater Hold relief captain percocet Continue relief captain baclofen Pain control: Start Tylenol, oxycodone Diet: Sips and Chips (Give Meds) Current DVT: DOAC SCD, SCD Code status: Attempt Cardiopulmonary Resuscitation - Inpatient Disposition: TBD Extended Emergency Contact Information Primary Emergency Contact: Lizeth Menard [place], [place] [id number] [place] [address] of [employer] Relation: Brother/Rfvfzu-ul-zhu Srikanth Patel MD, Hospital Medicine Pager: [phone] 07/09/2024 documented in this encounter Miscellaneous Notes * Care Management - Amalia Lloyd - 07/16/2024 1:37 PM EDTSummary: Discharge Ride Weights And Measures Sealer scheduled a medicaid discharge ride with [facility] ([phone]). It Infrastructure Manager will picking tech patient at 3:00pm at entrance #2. It Infrastructure Manager's name is Chelsea and she drives a blue/fuentes [employer] Outback. * Consult Note - Bessie William RPH - 07/15/2024 9:45 AM EDT The pharmacist-managed vancomycin consult service will sign-off and vancomycin therapy, if it is emmanuelle continued, must be ordered by the responsible prescriber. Pharmacists??? therapeutic drug monitoring will continue for patients receiving vancomycin. Should specific assistance be needed regarding re-initation or continuation of vancomycin therapy, please page the care area pharmacist with any questions you may have. Alternately, during off-hours you may call [phone] to contact a pharmacist. * Consult Note - Truman Mayer MD - 07/13/2024 4:50 PM EDT Nephrology Consult Note Oksana Betancourt [id number] 1965 ID: [id number] YO F with history of CAD s/p CRIS x7, AV stenosis s/p AVR HFpEF, hypothyroidism, PAF on Eliquis, hx of Hodgkin's lymphoma in her 20s s/p mantle radiation therapy, and triple negative breast cancer with known met to axillary LN planning bilateral mastectomy (Dx 02/10/24, s/p 4 cycles of markus-adjuvant Djhke-wkby-hpwglkhydfyon) who is admitted with severe nausea, vomiting, and abdominal pain. Nephrology is consulted for JONATHAN. History of Present Illness: She was admitted 07/09 for nausea, vomiting, RUQ. She has known cholecystectomy. Labs at OSH remarkable for T bili 1.62, AST 172, ALT 93, alk phos 4732 with moderately dilated CBD on CT AP, overall concerning for obstructive biliary process. She had US done here showing dilated bile duct. An MRCP was done and showed bile duct ectasia with CBD 11 mm no obstruction. EUS without pathology. She does have evidence of clavicular sclerosis raising suspicion for bone metastasis. There is a PET scan planned. She has also been started on antibiotics for E. Faecium that grew at the OSH, currently on vancomycin but was on Zosyn. She has a baseline sCr of 1.2, was at the OSH with sCr 5.7. Noted to be relatively stable at the [facility]. She had no obstruction when looked. She now has a serum creatinine of 2.3. She had renal US here that showed a right-sided kidney of 5.9 cm and left of about 12. On my look of a CT it looks larger than 6.0 cm. She does have diffuse aortic calcifications. Her UA here is pretty unremarkable today, 30 protein SG 1.011. Prior had WBC. She endorses lightheadedness, dizziness, and says she was having5+ bouts of emesis daily for about 7 days. She did not take in orals very well at home. Continued to take her ARB and her torsemide 20. She has been getting torsemide 20 mg here and is currently net n egative 1.8L. Her CBC recently also shows some eosinophilia. Review of Systems: Full ROS performed. All positive symptoms noted in HPI. Past Medical and Surgical History: Past Medical History: Diagnosis Date CAD (coronary artery disease) Cancer COPD (chronic obstructive pulmonary disease) GERD (gastroesophageal reflux disease) Paroxysmal A-fib Past Surgical History: Procedure Laterality Date SECTION CHOLECYSTECTOMY HYSTERECTOMY IR MEDIPORT PLACEMENT 03/23/2024 IR Mediport Placement 03/23/2024 Cely Schmitt PA [facility] INTERVENTIONL RAD MAMMO US BIOPSY LEFT Left 03/26/2024 Mammo Us Biopsy Left 03/26/2024 Ana Weber MD [facility] RAD MAMMOGRAPHY PRO ENDOSCOPIC US EXAM, ESOPH N/A 07/11/2024 UPPER EUS- ENDOSCOPIC ULTRASOUND (WRVU 3.47) performed by Davie Swenson MD at [facility] ENDOSCOPY SPLENECTOMY Family History: Family History Problem Relation Age of Onset Hypertension Mother Skin Cancer Father Asthma Brother Cancer Maternal Uncle suspected, unsure primary Cancer Maternal Grandmother suspected, unsure primary Cancer Paternal Grandmother unsure primary Breast Cancer Paternal Half-Sister 46 of same at age 46 Ovarian Cancer Neg Hx Social History: Social History Socioeconomic History Marital status: Spouse name: Not on file Number of children: Not on file Years of education: Not on file Highest education level: Not on file Occupational History Not on file Tobacco Use Smoking status: Former Current packs/day: 0.00 Average packs/day: 1 pack/day for 40.0 years (40.0 ttl pk-yrs) Types: Cigarettes Start date: 11/17/1981 Quit date: 11/17/2021 Years since quittin.6 Passive exposure: Past Smokeless tobacco: Never Tobacco comments: Denies vaping Vaping Use Vaping status: Never Used Substance and Sexual Activity Alcohol use: Not Currently Drug use: Never Sexual activity: Defer Other Topics Concern Not on file Social History Narrative Not on file Social Determinants of Health Financial Resource Strain: Low Risk (05/29/2024) Overall Financial Resource Strain (CARDIA) Difficulty of Paying Living Expenses: Not very hard Recent Concern: Financial Resource Strain - Medium Risk (03/14/2024) Overall Financial Resource Strain (CARDIA) Difficulty of Paying Living Expenses: Somewhat hard Food Insecurity: No Food Insecurity (07/09/2024) Hunger Vital Sign Worried About Running Out of Food in the Last Year: Never true Ran Out of Food in the Last Year: Never true Transportation Needs: No Transportation Needs (07/09/2024) PRAPARE - Transportation Lack of Transportation (Medical): No Lack of Transportation (Non-Medical): No Physical Activity: Not on file Intimate Partner Violence: Not At Risk (07/09/2024) DH IPV Inpatient Questions Prevent Contact with Others: no Feels Threatened by Someone: no Feels Unsafe at Home: no Physical Signs of Abuse Present: no Housing Stability: Low Risk (07/09/2024) Housing Stability Vital Sign Unable to Pay for Housing in the Last Year: No Number of Times Moved in the Last Year: 1 Homeless in the Last Year: No Physical Examination: Last value 24 Hour Temperature Range Temp: [36.6 ??C (97.9 ??F)-36.9 ??C (98.4 ??F)] 12 Hour Heart Rate Range Heart Rate: [87] 24 Hour Blood Pressure Range BP: (133-161)/(69-71) Respiratory Rate Resp: 16 SpO2 SpO2: 97 % Body mass index is 33.46 kg/m??. General: No acute distress, comfortable HEENT: Eyes anicteric and not injected. Tongue moist. Hat cap on. Cardiac: Normal rate, and regular rhythm. S1S2 appreciated. No murmurs. JVD is not present. Warm and well perfused. Chest: Good effort and aeration. Clear to auscultation bilaterally without crackles or wheezes. Abdomen: BS present. Soft. Mild tenderness midline. Extremities: Warm, well perfused. No peripheral edema. Capillary refill is normal Skin: No abnormalities noted. Skin turgor expected for age. Neurologic: No asterixis. Alert and oriented x 4. Follows all requests. ursodioL 300 mg Oral BID WC apixaban 5 mg Oral BID multivitamin with minerals 1 tablet Oral Daily atorvastatin 80 mg Oral Daily at Noon clopidogreL 75 mg Oral Daily lamoTRIgine 100 mg Oral BID levothyroxine 100 mcg Oral QAM metoprolol succinate XL 50 mg Oral BID pantoprazole EC 40 mg Oral Daily QUEtiapine 150 mg Oral Nightly torsemide 20 mg Oral Daily sodium chloride 0.9 % (flush) 5 mL Intravenous BID baclofen 5 mg Oral BID white petrolatum-mineral oiL Topical (Top) Daily senna-docusate 2 tablet Oral BID polyethylene glycoL (MIRALAX) oral powder 17 g Oral Daily Lab Results Component Value Date CREATININE 2.38 (H) 07/13/2024 CREATININE 2.16 (H) 07/12/2024 CREATININE 2.84 (H) 07/11/2024 CREATININE 3.12 (H) 07/10/2024 CREATININE 3.37 (H) 07/09/2024 CREATININE 1.36 (H) 04/17/2024 CREATININE 2.08 (H) 03/28/2024 CREATININE 1.66 (H) 03/06/2024 CREATININE 1.36 (H) 12/04/2023 CREATININE 1.26 (H) 2023 ESTGFR 45 (L) 04/17/2024 ESTGFR 27 (L) 03/28/2024 ESTGFR 35 (L) 03/06/2024 ESTGFR 45 (L) 12/04/2023 ESTGFR 49 (L) 2023 NA 141 07/13/2024 NA 143 07/12/2024 NA 142 07/11/2024 NA 142 04/17/2024 NA 139 03/28/2024 NA 140 03/06/2024 K 3.6 07/13/2024 K 3.2 (L) 07/12/2024 K 3.6 07/11/2024 K 4.5 04/17/2024 K 4.5 03/28/2024 K 4.5 03/06/2024 CO2 29 07/13/2024 CO2 28 07/12/2024 CO2 25 07/11/2024 CO2 25 04/17/2024 CO2 21 (L) 03/28/2024 CO2 24 03/06/2024 Lab Results Component Value Date CALCIUM 9.5 07/13/2024 CALCIUM 8.9 07/12/2024 CALCIUM 8.9 07/11/2024 CALCIUM 9.3 04/17/2024 CALCIUM 9.5 03/28/2024 CALCIUM 9.7 03/06/2024 PHOS 3.0 07/13/2024 PHOS 2.8 07/12/2024 PHOS 2.8 07/11/2024 PHOS 5.2 (H) 12/04/2023 PHOS 4.5 2023 PHOS 4.1 12/02/2023 FREET4 1.24 04/17/2024 TSH 0.60 06/01/2024 TSH 3.58 04/17/2024 Lab Results Component Value Date HGB 8.6 (L) 07/13/2024 HGB 8.6 (L) 07/12/2024 HGB 8.2 (L) 07/11/2024 HGB 10.7 (L) 04/17/2024 HGB 12.7 03/28/2024 HGB 12.5 03/06/2024 Lab Results Component Value Date ALBUMIN 3.1 (L) 07/13/2024 ALBUMIN 2.8 (L) 07/12/2024 ALBUMIN 3.0 (L) 07/11/2024 ALBUMIN 3.8 04/17/2024 ALBUMIN 4.1 03/28/2024 ALBUMIN 4.3 03/06/2024 Imaging: RIGHT KIDNEY: Size (cm) L: 5.9 Cortical [...] nephrolithiasis. 2. Stable mild right renal atrophy. Assessment & Plan: Oksana Betancourt is a 58 YO F with history of CAD s/p CRIS x7, AV stenosis s/p AVR HFpEF, hypothyroidism, PAF on Eliquis, hx of Hodgkin's lymphoma in her 20s s/p mantle radiation therapy, and triple negative breast cancer with known met to axillary LN planning bilateral mastectomy (Dx 02/10/24, s/p 4cycles of markus- adjuvant Ucgtf-mhaz-soqhgstprjazd) who is admitted with severe nausea, vomiting, and abdominal pain. Nephrology is consulted for JONATHAN. # Non-oliguric JONATHAN on CKD G3a with right atrophied kidney Likely secondary to ATN as a result of 7 days of vomiting while on ARB, torsemide, and potentially superimposed by some hypovolemia with ongoing torsemide with lightheadedness/dizziness all on top ofa unilateral kidney (with R 5.9 cm). I have also considered ICI-toxicity as her recent CBC has some eosinophilia and the vast majority of ICI toxicity is via AIN. Otherwise I have considered pre-renal causes like calcium, rhabdo, CNI, contrast, hypervolemia which seem less likely. Intra-renally shelikely has ATN, maybe AIN, but unlikely a de-ellie GN or TMA. Post-renally has been largely excluded. -Baseline sCr: 1.2, admit 5.4-->2.3 -Urinary studies: UA 021 1.019, 100 pro, trace blood, 41 WBC, many bacteria. Waiting to spin. UPCR is 1.0 and UACR is 100. -Serologies: C3, C4 normal. K:L ratio normal. SPEP, UPEP pending. -Imaging: Renal US with R kidney 5.9 cm, left is ~12 no hydro. Has aortic calcifications. Recommendations: -Currently no indication for renal replacement therapy -Likely resolving ATN. -Treatment for ATN is supportive: limit ongoing insults -If able to send a 15 cc sample to the nephrology, -1 by tube system we can examine under the microscope -Hold torsemide as she has evidence of hypovolemia (lightheaded, dizzy, HCO3 contraction 23-->29, net negative, dry exam) -Please avoid NSAIDs, IV contrast, nephrotoxins -Keep MAP >65 as able to -Renally dose medications as appropriate This case was staffed with Dr. Hemphill Thank you for involving us in the care of this patient. Nephrology will continue to follow. Please contact me at phone: [phone] or pager: [phone] with any questions. Truman Mayer MD Nephrology & Hypertension Fellow * Consult Note - Fernando Clarke RPH - 07/13/2024 7:24 AM EDT Vancomycin Note. On intermittent dosing (~750 mg per levels). Day 4/5 of vanc Level this AM 22.5 Goal 15-20 Will repeat level this afternoon at 1500. Then likely will repeat 500 mg x 1 dose later today if appropriate. Fernando Clakre RPH Pager: [phone] * Care Management - Key Babin RN - 07/12/2024 2:29 PM EDT OFFICE OF CARE MANAGEMENT PROGRESS NOTE LOS: Hospital Day 3 days Chart reviewed, care reviewed with primary team and at interdisciplinary rounds. Patient continues to meet inpatient level of care related to: nausea, vomiting, and RUQ pain Medical Decision Maker: Self Financial Decision Maker: Self Functional status prior to admission: Independent Home Environment: Others in the home: alone (states he brother lives in same [facility] [address] apartments from or). Current Living Arrangements: home/apartment/condo. Accessibility Concerns: 0 CARMINE. Current Functional Ability: Independent DME used at home: grab bar - tub/shower, grab bar - toilet DME Needed at Discharge: No Patient is insured through: Primary Insurance: [employer] MANAGED MEDICARE Payor: [employer] MANAGED MEDICARE / Plan: AARP RPPO MANAGED MEDICARE COMPLETE / Product Type: *No Product type* / Secondary Insurance: MEDICAID [place] Last Physical Therapy Recommendation: with Last Occupational Therapy Recommendation: home with None Plan for discharge is: Home w/ Services Outpatient Agency/Support Group Needs: Homecare agency Home Health Services: Physical Therapy, Medication checks, Registered Nurse Agency Referrals: [facility]. [address] [place] [id number] Transportation: family or friend will provide Barriers to discharge: Global: None Plan going forward: Awaiting PT evaluation. Oncology consult: no further workup at this time, evaluate lab values, VS, pain, and PO intake and tolerance. Anticipated Date of Discharge: 07/14/2024 Key Babin RN [phone] Pager [phone] * Consult Note - Fernando Clarke, [facility] - 07/12/2024 7:11 AM EDT Clinical Pharmacist Note-Vanc Oksana Betancourt [id number] 1965 Oksana Betancourt is a 58 y.o. female is being monitored due to antibiotic therapy which includes intravenous vancomycin. Regimen: Vancomycin per levels (s/p loaf 1500 mg gave 750 mg yesterday) Indication: treatment of e. faecium UTI Initiation Date:07/10/24 Day of Therapy: 3 (tentative of 5 total) Targeted Goal Range: 15 - 20 mcg/mL Pharmacokinetic information: Wt Readings from Last 1 Encounters: 07/09/24 92.6 kg (204 lb 3.2 oz) Ht Readings from Last 1 Encounters: 07/09/24 166.4 cm (5' 5.5) Labs: Vancomycin: No results found for: VANCOTR Creatinine clearance: Creatinine (mg/dL) Date Value 07/12/2024 2.16 (H) 04/17/2024 1.36 (H) Recommendations: Continue per level dosing. Level this AM slightly over 20 but dose last night given around 1800. Repeat 750 mg dose now and repeat level tomorrow AM ordered. Fernando Clarke [facility] Pager [phone] * Plan of Care - Fernando Hazel RN - 07/12/2024 6:08 AM EDT Illness Severity Stable Patient Summary Reason for admission: Abdominal pain, N/V Relevant PMH: Breast cancer on chemo, CAD s/p CRIS x 7, CHF, aortic valve stenosis s/p replacement, hypothyroidism, paroxysmal A-fib on Eliquis Significant 24 hour events: 07/12 AM: Pt A&O x4, VSS, on RA. Up IND to bathroom, good UOP overnight W/ 1xBM. Pt resting / sleeping between cares and overnight. Pt endorsing ABD pain this morning PRN pain medication given. Action List Trend LFTs IV vanco * Op Note - Davie Swenson MD - 07/11/2024 3:47 PM EDT DH Operative Note Patient Name: Oksana Betancourt : [id number] MR#: [id number] Case Date: 07/11/2024 Surgeon: Surgeons and Role: * Davie Swenson MD - Primary Procedure(s): UPPER EUS- ENDOSCOPIC ULTRASOUND (WRVU 3.47) Please see Provation report for details. * Consult Note - Jr Fulton MD - 07/11/2024 2:46 PM EDT Images from the original note were not included. [facility] Department of Surgery, Surgical Oncology Inpatient Consult Note Consulting Physician: SRIKANTH PATEL ERIN M Reason for Consult: Triple Negative Breast Cancer HPI: Oksana Betancourt is a 58 y.o. female with history of CAD status post CRIS x 7 (Plavix), CHF, aortic valve stenosis status post replacement, hypothyroidism, bipolar disorder, Hodgkin's lymphoma s/p mantle radiation therapy and splenectomy, paroxysmal A-fib on Eliquis and triple negative breast cancer with a positive node. She underwent neoadjuvant chemotherapy with carboplatin/Docetaxel plus pembrolizumab. She was scheduled to undergo a bilateral mastectomy on 07/12 prior to which she will hold her clopidogrel and apixaban. Unfortunately, she presented to [facility] with right upper abdominal pain, nausea, and vomiting on 07/08and was transferred to [facility] [place] [place] and admitted on 07/09 with a possible obstructive biliary process and JONATHAN. Her admission labs were notable for a creatinine of 5.7 and an alk phos of 4700. Here, she was found to have E. coli bacteriuria, and she was started on antibiotics. A right upper quadrant ultrasound showed CBD dilation to 1 cm and a subsequent MRCP showed dilation to 1.1 cm but no signs of choledocholithiasis. She is scheduled to undergo an EUS today for further evaluation of an ampullary stone versus microlithiasis per GI, though there is some uncertainty as to whether or not the alk phos elevation reflects an entirely biliary process versus some bone involvement. Of note, sclerosis of her left clavicle was noted on chest x-ray at [facility], and oncology has been consulted for guidance on optimal imaging given her JONATHAN. Today, she feels well and is hungry as she is n.p.o. for her EUS. Her abdominal pain has improved, and she has not had any additional episodes of nausea or vomiting since admission. She is disappointed to hear that we will not be able to proceed with the surgery tomorrow, but understands that it isfor her safety. She is anxious to have the surgery done as soon as possible. She denies any chest pain, shortness of breath, fevers, or chills. Past Medical / Surgical History: Past Medical History: Diagnosis Date CAD (coronary artery disease) Cancer COPD (chronic obstructive pulmonary disease) GERD (gastroesophageal reflux disease) Paroxysmal A-fib Past Surgical History: Procedure Laterality Date SECTION CHOLECYSTECTOMY HYSTERECTOMY IR MEDIPORT PLACEMENT 03/23/2024 IR Mediport Placement 03/23/2024 Cely Schmitt PA [facility] INTERVENTIONL RAD MAMMO US BIOPSY LEFT Left 03/26/2024 Mammo Us Biopsy Left 03/26/2024 Ana Weber MD [facility] RAD MAMMOGRAPHY SPLENECTOMY Medications: No current facility-administered medications on file prior to encounter. Current Outpatient Medications on File Prior to Encounter Medication Sig Dispense Refill fish oil-omega-3 fatty acids (Fish Oil) 1,000 mg capsule Take 2 g by mouth daily. torsemide (Demadex) 20 mg tablet Take 1 tablet by mouth daily. 30 tablet 3 ondansetron (Zofran) 8 mg tablet Take 1 tablet by mouth every 8 hours as needed for Nausea. 60 tablet 0 diclofenac (Voltaren) 1 % Gel Apply 2 g topically 2 times daily. 200 g 1 multivitamin (THERAGRAN) Tablet Take 1 tablet by mouth daily. iron,carb/vit C/vit B12/folic (IRON 100 PLUS ORAL) Take by mouth. atorvastatin (Lipitor) 80 mg tablet Take 1 tablet by mouth Daily at Noon. 90 tablet 3 clopidogreL (Plavix) 75 mg tablet Take 1 tablet by mouth daily. 90 tablet 3 ipratropium-albuteroL (Duoneb) 0.5 mg-3 mg(2.5 mg base)/3 mL Solution for Nebulization Take 0.5 mg by nebulization every 4 hours. 1 each 4 metoprolol succinate XL (Toprol-XL) 50 mg ER 24 hr tablet Take 1 tablet by mouth 2 times daily. 30 tablet 12 apixaban (Eliquis) 5 mg tablet Take 5 mg by mouth 2 times daily. baclofen (Lioresal) 10 mg tablet Take 0.5 tablets by mouth 2 times daily. lamoTRIgine (LaMICtal) 100 mg tablet Take 1 tablet by mouth 2 times daily. oxyCODONE-acetaminophen (Percocet) 10-325 mg tablet Take 1 tablet by mouth every 8 hours as needed. QUEtiapine (SEROquel) 100 mg tablet Take 100 mg by mouth nightly. levothyroxine (Synthroid) 100 mcg tablet Take 100 mcg by mouth. diphenhydrAMINE/aluminum-magnesium hydroxide with simethicone/lidocaine (BMX) (6.67 mg-0.83 mg-13.33 mg-1.33 mg/mL) oral liquid Take 20-30 mLs by mouth every 4 hours as needed. 240 mL 3 lidocaine (Xylocaine) 2 % Solution Take 1-2 mLs by mouth as needed for Pain (Please drapery counselor patienton equal parts benadryl and Maalox.). 100 mL 1 QUEtiapine (Seroquel) 50 mg tablet TAKE ONE TABLET BY MOUTH EVERY NIGHT IN ADDITION TO 100MG TABLET. MAY TAKE UP TO 200MG AT BEDTIME IF NEEDED FOR SLEEP 60 tablet 0 nitroGLYcerin (Nitrostat) 0.[address] 1 tablet under the tongue every 5 minutes as needed for Chest pain. 90 tablet 12 omeprazole (PRILOSEC) 20 mg capsule 20M Capsule(s), PO, Once daily Allergies: No Known Allergies Physical Exam: Last value Range last 24 hrs Temperature Temp: 36.1 ??C (97 ??F) Temp: [36.1 ??C (97 ??F)-37.4 ??C (99.3 ??F)] Heart Rate Heart Rate: 67 Heart Rate: [61-73] Blood Pressure BP: 131/59 BP: (93-131)/(44-78) Respiratory Rate Resp: 18 Resp: [16-20] SpO2 SpO2: 99 % SpO2: [91 %-100 %] Art BP BP (Arterial Line): -- I/O last 3 completed shifts: In: 1332.5 [P.O.:620; I.V.:595; IV Piggyback:117.5] Out: 1100 [Urine:1100] I/O this shift: In: - Out: 1100 [Urine:1100] Gen: NAD, alert & oriented x3, pleasant, conversant HEENT: EOMI, no scleral icterus, MMM and pink Neck: Supple, trachea midline, no LAD CV: Regular rate on monitor Pulm: breathing comfortably on room air GI: Non-distended, soft, non-tender Ext: no edema Neuro: No focal deficits, sensation intact to crude touch Labs: Last wbc, hgb, hct plt Recent Labs 07/11/24 0408 WBC 11.57* HGB 8.2* HCT 25.2* Last 3 Lytes Recent Labs 07/11/24 0408 07/10/24 0526 07/09/24 1610 NA 142 142 142 K 3.6 3.7 3.7 CL 102 102 100 CO2 25 25 23 BUN 35* 39* 39* CREATININE 2.84* 3.12* 3.37* Last Ca, Mg, Phos Recent Labs 07/11/24 0408 CALCIUM 8.9 PHOS 2.8 Microbiology: Microbiology Results (last 7 days) Procedure Component Value - Date/Time Urine culture [[id number]] (Abnormal) (Susceptibility) Collected: 07/09/24924 Lab Status: Final result Specimen: Urine, Clean Catch Updated: 07/11/24625 Urine Culture Greater than 100,000 cfu/ml Enterococcus faecium Susceptibility Enterococcus faecium VITEK 2 METHOD Ampicillin Resistant Ciprofloxacin Resistant Levofloxacin Resistant Nitrofurantoin Intermediate Penicillin Resistant Tetracycline Resistant Vancomycin Susceptible Imagin/21 MRCP: Bile duct ectasia with CBD measuring up to [address] evident choledocholithiasis. 07/09 U/S: 1. Normal hepatic parenchymal echogenicity and contour. No focal hepatic lesion. 2. Normal directionality of portal venous flow. 3. Status post cholecystectomy. 4. Common bile duct measures 1 cm, a normal and nonspecific in finding in a setting cholecystectomy. No evidence of obstruction or choledocholithiasis. 5. Atrophic right kidney. Assessment / Plan: Oksana Betancourt is a 58 y.o. female with history of CAD status post CRIS x 7 (Plavix), CHF, aortic valve stenosis status post replacement, hypothyroidism, bipolar disorder, Hodgkin's lymphoma s/p mantle radiation therapy and splenectomy, paroxysmal A-fib on Eliquis and triple nega tive breast cancer with a positive node. She is admitted for JONATHAN (most recent creatinine 2.8), E. coli bacteriuria, and elevated alk phos with possible biliary versus bone source. Additionally, she did receive Plavix on 07/11. In this setting, we would not proceed with her scheduled bilateral mastectomy for tomorrow, 07/12. Recommendations: - No plans for OR tomorrow, case canceled - Management of active medical problems per medicine/GI teams - Malignancy workup/imaging per primary team/oncology given new sclerosis reported on CXR, in the setting of her JONATHAN - Will discuss operative planning and timing after she recovers from her current illness and diagnostics complete All plans were discussed with the attending surgeon Jr Fulton MD. Signed: Lukas Shore MD [facility] Surgical Oncology Service Team Pager #[phone] 07/11/24 2:46 PM Thank you for this consult. If you have any questions regarding this consult, please page #[phone]. 07/11/24 Surgery staff I examined Oksana this afternoon and agree with this note and plan as documented by Dr. Shore. Fortunately her EUS does not appear to have shown any obstructive biliary process. Her bilateral mastectomy and targeted and sentinel node excision planned for tomorrow has been canceled. Will have to get her renal function back to normal, get her urinary tract infection resolved and also understand why her alkaline phosphatase is so high. If imaging with either a PET/CT or bone scan (choice of imaging to be determined by medical oncology and her medical team) determines that she has metastatic disease to the bone then we would not reschedule the mastectomies. If she does not havemetastatic disease we will reschedule her for mastectomies once her urinary tract infection has been cleared and renal function has resolved. * Care Management - Amalia Lloyd - 07/11/2024 9:55 AM EDTSummary: Advance Directive Patient completed Advance Directive with Weights And Measures Sealer. Lizeth Menard ([id number]) named primary agent. Juanito Rowland (son) named secondary agent. * Consult Note - Duy Blackwood MD - 07/11/2024 8:24 AM EDT Images from the original note were not included. [facility] [place] [address] MEDICAL ONCOLOGY CONSULT REASON FOR CONSULT: Sclerotic clavicle lesion in setting of triple negative breast cancer SERVICE/MD REQUESTING CONSULT: Hospital Medicine SOURCE: history was obtained from an extensive chart review and from the patient ASSESSMENT & RECOMMENDATIONS: It is unclear what Oksana's sclerotic left clavicular lesion represents. Generally speaking, bone lesions from breast cancer do tend to be osteolytic, however Oksana's feature of an sclerotic lesion does not rule out malignancy as the source. She did express having a biopsy on her left clavicle when she was being worked up for her lymphoma in her 20s; it is possible that this may be related to the appearance of the sclerotic lesion on imaging. Further, Oksana has been completely asymptomatic inher clavicle or any other bony site, making metastatic disease to her bones less likely. While her alk phos is quite high, her GGT is also elevated suggestive of a GI source. As Oksana's surgery has now been canceled, would recommend holding on further workup for the clavicular lesion at this time. In addition to the sclerotic clavicular lesion, Oksana did demonstrate small bilateral adrenal nodules that we would recommend following up with MRI studies (MRI w/ adrenal mass protocol in and out of phase imaging). Recommendations, please consider: Will follow up sclerotic clavicular lesion as outpatient MRI adrenal mass protocol in & out of phase imaging Thank you for involving us in the patient's care. [x] We will continue to follow the patient???s care throughout the hospitalization, though this maybe intermittent as new results and data become available. [] We will be available only as needed. From 8:00 AM to 5:00 PM, please contact the ONCOLOGY fellow. For urgent queries between 5:00 PM and 8:00 AM the following day, reach out to the Hem/Onc FellowNight/Wknd. HISTORY OF PRESENT ILLNESS: Oksana Betancourt is a 58 year old female with a past medical history of triple negative breast cancers/p 4 cycles of neoadjuvant carboplatin, paclitaxel, and pembrolizumab with planned bilateral mastectomy, triple vessel disease s/p 7 stents, ischemic cardiomyopathy (EF 44%), s/p TAVR?, pAF on apixaban, and Hodgkin lymphoma treated w/ mantle radiation therapy in her 20s who is admitted for intractable nausea and vomiting, suspected cholestatic hepatitis, and JONATHAN suspected 2/2 hypovolemia. Oncology has been consulted regarding incidental finding of a sclerotic lesion in her right clavicle. Oksnaa underwent CXR at OSH prior to transfer here for workup of her nonspecific abdominal pain, which demonstrated sclerosis to the mid-aspect of the left clavicle. She additionally underwent a CTabdomen and pelvis without contrast at the OSH which demonstrated no osseous lesions, but did note small bilateral adrenal nodules that are slightly denser than typical benign adenomas, with recommendation for follow up MRI w/ adrenal mass protocol in and out of phase imaging. Oksana denies having any symptoms, including pain, in her clavicle or any other bone. She did express that she got a biopsy done on her left clavicle when she was being worked up for her Hodgkin lymphoma in her 20s. ONCOLOGY HX: Breast cancer: 03/26/2024: Left breast lesion #2 biopsy was performed. Isolated focus of metastatic deposit of <1mm 03/28/2024: Cycle 1 day 1 of carboplatin/docetaxel and pembrolizumab. Carboplatin dose reduced to 4.5 AUC due to JONATHAN. 04/17/2024: Cycle 2 day 1 of carboplatin/docetaxel and pembrolizumab. Carboplatin dose increased to 5 AUC due to improvement tin renal functions. 05/29/24: Cycle 4 day 1 of carboplatin/docetaxel and pembrolizumab. Hodgkin lymphoma: Remote hx in 20s s/p mantle radiation therapy PMHX/PSHX: Breast cancer Hx of Hodgkin lymphoma HFrEF (ischemic) CAD s/p 7 stents S/p cholecystectomy s/p tavr pAF on DOAC MEDS: Scheduled Meds: multivitamin with minerals 1 tablet Oral Daily atorvastatin 80 mg Oral Daily at Noon clopidogreL 75 mg Oral Daily lamoTRIgine 100 mg Oral BID levothyroxine 100 mcg Oral QAM metoprolol succinate XL 50 mg Oral BID pantoprazole EC 40 mg Oral Daily QUEtiapine 150 mg Oral Nightly torsemide 20 mg Oral Daily sodium chloride 0.9 % (flush) 5 mL Intravenous BID baclofen 5 mg Oral BID white petrolatum-mineral oiL Topical (Top) Daily senna-docusate 2 tablet Oral BID polyethylene glycoL (MIRALAX) oral powder 17 g Oral Daily Continuous Infusions: PRN Meds:.bisacodyL, ondansetron, magnesium hydroxide, sodium chloride 0.9 % (flush), lidocaine, melatonin, naloxone, oxyCODONE OR oxyCODONE, oxyCODONE, acetaminophen ALLERGIES: No Known Allergies FAMILY HISTORY: Family History Problem Relation Age of Onset Hypertension Mother Skin Cancer Father Asthma Brother Cancer Maternal Uncle suspected, unsure primary Cancer Maternal Grandmother suspected, unsure primary Cancer Paternal Grandmother unsure primary Breast Cancer Paternal Half-Sister 46 of same at age 46 Ovarian Cancer Neg Hx SOCIAL HISTORY: Social History Socioeconomic History Marital status: Spouse name: Not on file Number of children: Not on file Years of education: Not on file Highest education level: Not on file Occupational History Not on file Tobacco Use Smoking status: Former Current packs/day: 0.00 Average packs/day: 1 pack/day for 40.0 years (40.0 ttl pk-yrs) Types: Cigarettes Start date: 11/17/1981 Quit date: 11/17/2021 Years since quittin.6 Passive exposure: Past Smokeless tobacco: Never Vaping Use Vaping status: Never Used Substance and Sexual Activity Alcohol use: Not Currently Drug use: Never Sexual activity: Defer Other Topics Concern Not on file Social History Narrative Not on file Social Determinants of Health Financial Resource Strain: Low Risk (05/29/2024) Overall Financial Resource Strain (CARDIA) Difficulty of Paying Living Expenses: Not very hard Recent Concern: Financial Resource Strain - Medium Risk (03/14/2024) Overall Financial Resource Strain (CARDIA) Difficulty of Paying Living Expenses: Somewhat hard Food Insecurity: No Food Insecurity (07/09/2024) Hunger Vital Sign Worried About Running Out of Food in the Last Year: Never true Ran Out of Food in the Last Year: Never true Transportation Needs: No Transportation Needs (07/09/2024) PRAPARE - Transportation Lack of Transportation (Medical): No Lack of Transportation (Non-Medical): No Physical Activity: Not on file Intimate Partner Violence: Not At Risk (07/09/2024) IPV Inpatient Questions Prevent Contact with Others: no Feels Threatened by Someone: no Feels Unsafe at Home: no Physical Signs of Abuse Present: no Housing Stability: Low Risk (07/09/2024) Housing Stability Vital Sign Unable to Pay for Housing in the Last Year: No Number of Times Moved in the Last Year: 1 Homeless in the Last Year: No PHYSICAL EXAM: Patient Vitals for the past 8 hrs: BP Temp Temp src Pulse Resp SpO2 07/11/24 0755 108/61 36.9 ??C (98.4 ??F) Oral -- 18 99 % 07/11/24 0419 117/78 37 ??C (98.6 ??F) Oral -- 20 98 % 07/11/24 0342 -- -- -- 61 -- -- Body surface area is 2.07 meters squared. Body surface area is 2.07 meters squared. GENERAL: Oksana Betancourt appears well and is in no acute distress. ENT: Oral pharynx clear. CARDIAC: Regular rate and rhythm. LUNGS: CTABL, no wheezing, no crackles ABDOMEN: Soft and non-tender without hepatosplenomegaly or masses. BONE: No tenderness present at bilateral clavicles or along spine. EXTREMITIES: No cyanosis, clubbing, edema or calf tenderness. SKIN: Presence of scar on left clavicle. NEUROLOGICAL: Alert and oriented to person, place and time. LABORATORY / PATHOLOGY STUDIES: Recent Results (from the past 72 hour(s)) CBC (with Diff) Result Value Ref Range White Blood Cell 9.89 (H) 4.00 - 9.50 x10(3)/mcL Red Blood Cell 2.62 (L) 4.00 - 5.21 x10(6)/mcL Hemoglobin 8.0 (L) 11.7 - 15.5 g/dL Hematocrit 24.8 (L) 35.7 - 45.8 % Mean Cell Volume 94.7 (H) 82.6 - 94.4 fL Mean Cell Hemoglobin 30.5 27.1 - 32.0 pg Mean Cell Hemoglobin Concentration 32.3 31.7 - 35.0 g/dL Platelet 441 (H) 145 - 357 x10(3)/mcL Mean Platelet Volume 11.9 7.6 - 12.9 fL RDW Standard Deviation 68.9 (H) 37.0 - 46.0 fL RDW coefficient of variation 20.2 (H) 11.5 - 14.1 % NRBC% auto 0.0 % NRBC Absolute <0.01 <0.01 x10(3)/mcL Neutrophil % 54.2 % Neutrophil Absolute (ANC) - Automated 5.36 1.70 - 6.10 x10(3)/mcL Lymph % 33.9 % Lymph Absolute 3.35 (H) 0.90 - 3.20 x10(3)/mcL Monocyte % 10.7 % Monocyte Absolute 1.06 (H) 0.30 - 0.90 x10(3)/mcL Eos % 0.6 % Eos Absolute 0.06 0.00 - 0.40 x10(3)/mcL Basophil % 0.3 % Baso Absolute <0.04 0.00 - 0.10 x10(3)/mcL Immature Gran % 0.3 % Immature Gran Absolute <0.04 0.00 - 0.04 x10(3)/mcL Comprehensive metabolic panel Result Value Ref Range Glucose 72 65 - 199 mg/dL Blood Urea Nitrogen 37 (H) 8 - 18 mg/dL Creatinine 4.07 (H) 0.70 - 1.20 mg/dL Sodium 142 135 - 145 mMol/L Potassium 3.8 3.5 - 5.0 mMol/L Chloride 103 98 - 107 mMol/L Carbon Dioxide 23 22 - 31 mMol/L Anion Gap 16 (H) 5 - 15 mMol/L Calcium 9.2 8.5 - 10.5 mg/dL Protein, Total 7.6 6.1 - 8.0 g/dL Albumin 3.1 (L) 3.2 - 5.2 g/dL Aspartate Aminotransferase 124 (H) <=30 unit/L Alanine Aminotransferase 61 (H) 0 - 30 unit/L Alkaline Phosphatase 2,558 (H) 35 - 105 unit/L Bilirubin, Total 1.2 <=1.3 mg/dL Est Glomerular Filtration Rate - Female 12 mL/min/1.73 m?? Gamma GT Result Value Ref Range Gamma Glutamyl Transferase 2,038 (H) 5 - 36 unit/L Urinalysis with reflex Culture Specimen: Urine, Clean Catch Result Value Ref Range Glucose, Urine Dipstick Negative Negative Protein, Urine Dipstick 100 mg/dL (A) Negative Bilirubin, Urine Dipstick Negative Negative Urobilinogen, Urine Dipstick Normal Normal, 0.2 mg/dL, 1.0 mg/dL pH, Urine (dipstick) 5.5 5.0 - 8.0 Blood, Urine Dipstick Trace (A) Negative Ketone, Urine Dipstick Trace (A) Negative Nitrite, Urine Dipstick Negative Negative Leukocytes, Urine Dipstick Small (A) Negative Specific Britt Urine Automated 1.019 1.005 - 1.030 Appearance, Urine Dipstick Clear Clear Color, Urine Dipstick Dark Yellow Yellow, Dark Yellow CULTURE ADDED? Creatinine, urine, random Result Value Ref Range Creatinine, Urine 168 mg/dL Urea nitrogen, urine, random Result Value Ref Range Urea Nitrogen, Urine 661 mg/dL Urinalysis Microscopic with Reflex to Culture Specimen: Urine, Clean Catch Result Value Ref Range CULTURE ADDED? Urinalysis Microscopic Reflex to Culture Result Value Ref Range Bacteria, Urine Many (A) None /HPF RBC, Urine 0 0 - 4 /HPF WBC, Urine 41 (H) 0 - 5 /HPF Squamous Epithelial Cells, Urine 1 0 - 5 /HPF Hyaline Casts, Urine 1 0 - 2 /LPF Granular Casts, Urine 2 (H) <=0 /LPF Comment CULTURE ADDED? Urine culture Specimen: Urine, Clean Catch Result Value Ref Range Urine Culture Greater than 100,000 cfu/ml Enterococcus faecium (A) Susceptibility Enterococcus faecium - VITEK 2 METHOD Ampicillin Resistant ug/ml Ciprofloxacin Resistant ug/ml Levofloxacin Resistant ug/ml Nitrofurantoin Intermediate ug/ml Penicillin Resistant ug/ml Tetracycline Resistant ug/ml Vancomycin Susceptible ug/ml US Retroperitoneal Complete Result Value Ref Range WORKSTATION ID [id number] US Abdomen Limited Result Value Ref Range WORKSTATION ID [id number] Basic Metabolic Panel Result Value Ref Range Glucose 61 (L) 65 - 199 mg/dL Blood Urea Nitrogen 39 (H) 8 - 18 mg/dL Creatinine 3.37 (H) 0.70 - 1.20 mg/dL Sodium 142 135 - 145 mMol/L Potassium 3.7 3.5 - 5.0 mMol/L Chloride 100 98 - 107 mMol/L Carbon Dioxide 23 22 - 31 mMol/L Anion Gap 19 (H) 5 - 15 mMol/L Calcium 9.6 8.5 - 10.5 mg/dL Est Glomerular Filtration Rate - Female 15 mL/min/1.73 m?? MRI Cholangiopancreatography WO Contrast Result Value Ref Range WORKSTATION ID [id number] Phosphorus Result Value Ref Range Phosphorus 3.7 2.5 - 4.5 mg/dL CBC (with Diff) Result Value Ref Range White Blood Cell 10.15 (H) 4.00 - 9.50 x10(3)/mcL Red Blood Cell 2.66 (L) 4.00 - 5.21 x10(6)/mcL Hemoglobin 8.1 (L) 11.7 - 15.5 g/dL Hematocrit 24.5 (L) 35.7 - 45.8 % Mean Cell Volume 92.1 82.6 - 94.4 fL Mean Cell Hemoglobin 30.5 27.1 - 32.0 pg Mean Cell Hemoglobin Concentration 33.1 31.7 - 35.0 g/dL Platelet 412 (H) 145 - 357 x10(3)/mcL Mean Platelet Volume 11.9 7.6 - 12.9 fL RDW Standard Deviation 66.4 (H) 37.0 - 46.0 fL RDW coefficient of variation 19.6 (H) 11.5 - 14.1 % NRBC% auto 0.0 % NRBC Absolute <0.01 <0.01 x10(3)/mcL Neutrophil % 61.7 % Neutrophil Absolute (ANC) - Automated 6.26 (H) 1.70 - 6.10 x10(3)/mcL Lymph % 25.7 % Lymph Absolute 2.61 0.90 - 3.20 x10(3)/mcL Monocyte % 10.7 % Monocyte Absolute 1.09 (H) 0.30 - 0.90 x10(3)/mcL Eos % 1.3 % Eos Absolute 0.13 0.00 - 0.40 x10(3)/mcL Basophil % 0.3 % Baso Absolute <0.04 0.00 - 0.10 x10(3)/mcL Immature Gran % 0.3 % Immature Gran Absolute <0.04 0.00 - 0.04 x10(3)/mcL Comprehensive metabolic panel Result Value Ref Range Glucose 100 65 - 199 mg/dL Blood Urea Nitrogen 39 (H) 8 - 18 mg/dL Creatinine 3.12 (H) 0.70 - 1.20 mg/dL Sodium 142 135 - 145 mMol/L Potassium 3.7 3.5 - 5.0 mMol/L Chloride 102 98 - 107 mMol/L Carbon Dioxide 25 22 - 31 mMol/L Anion Gap 15 5 - 15 mMol/L Calcium 9.0 8.5 - 10.5 mg/dL Protein, Total 7.5 6.1 - 8.0 g/dL Albumin 3.2 3.2 - 5.2 g/dL Aspartate Aminotransferase 124 (H) <=30 unit/L Alanine Aminotransferase 58 (H) 0 - 30 unit/L Alkaline Phosphatase 2,487 (H) 35 - 105 unit/L Bilirubin, Total 1.2 <=1.3 mg/dL Est Glomerular Filtration Rate - Female 16 mL/min/1.73 m?? Phosphorus Result Value Ref Range Phosphorus 2.8 2.5 - 4.5 mg/dL Prothrombin Time Result Value Ref Range Prothrombin Time 12.7 (H) 9.4 - 12.5 sec International Normalization Ratio 1.1 <=4.9 APTT Result Value Ref Range Partial Thromboplastin Time 28 25 - 37 sec CBC (with Diff) Result Value Ref Range White Blood Cell 11.57 (H) 4.00 - 9.50 x10(3)/mcL Red Blood Cell 2.72 (L) 4.00 - 5.21 x10(6)/mcL Hemoglobin 8.2 (L) 11.7 - 15.5 g/dL Hematocrit 25.2 (L) 35.7 - 45.8 % Mean Cell Volume 92.6 82.6 - 94.4 fL Mean Cell Hemoglobin 30.1 27.1 - 32.0 pg Mean Cell Hemoglobin Concentration 32.5 31.7 - 35.0 g/dL Platelet 375 (H) 145 - 357 x10(3)/mcL Mean Platelet Volume 12.2 7.6 - 12.9 fL RDW Standard Deviation 66.6 (H) 37.0 - 46.0 fL RDW coefficient of variation 19.8 (H) 11.5 - 14.1 % NRBC% auto 0.0 % NRBC Absolute <0.01 <0.01 x10(3)/mcL Neutrophil % 64.6 % Neutrophil Absolute (ANC) - Automated 7.47 (H) 1.70 - 6.10 x10(3)/mcL Lymph % 22.6 % Lymph Absolute 2.62 0.90 - 3.20 x10(3)/mcL Monocyte % 9.6 % Monocyte Absolute 1.11 (H) 0.30 - 0.90 x10(3)/mcL Eos % 2.7 % Eos Absolute 0.31 0.00 - 0.40 x10(3)/mcL Basophil % 0.2 % Baso Absolute <0.04 0.00 - 0.10 x10(3)/mcL Immature Gran % 0.3 % Immature Gran Absolute 0.04 0.00 - 0.04 x10(3)/mcL Comprehensive metabolic panel Result Value Ref Range Glucose 114 65 - 199 mg/dL Blood Urea Nitrogen 35 (H) 8 - 18 mg/dL Creatinine 2.84 (H) 0.70 - 1.20 mg/dL Sodium 142 135 - 145 mMol/L Potassium 3.6 3.5 - 5.0 mMol/L Chloride 102 98 - 107 mMol/L Carbon Dioxide 25 22 - 31 mMol/L Anion Gap 15 5 - 15 mMol/L Calcium 8.9 8.5 - 10.5 mg/dL Protein, Total 7.9 6.1 - 8.0 g/dL Albumin 3.0 (L) 3.2 - 5.2 g/dL Aspartate Aminotransferase 145 (H) <=30 unit/L Alanine Aminotransferase 67 (H) 0 - 30 unit/L Alkaline Phosphatase 2,593 (H) 35 - 105 unit/L Bilirubin, Total 1.2 <=1.3 mg/dL Est Glomerular Filtration Rate - Female 18 mL/min/1.73 m?? RADIOLOGY STUDIES REVIEWED: MRI Cholangiopancreatography WO Contrast Result Date: 07/10/2024 Bile duct ectasia with CBD measuring up to [address] evident choledocholithiasis. Thank you for letting us participate in the care of this patient. If you are a health care provider and have any questions regarding this report, please contact the number below. For patients who have questions please contact the health primary care coordinator that requested your imaging first. Abdomen Limited Result Date: 07/09/2024 1. Normal hepatic parenchymal echogenicity and contour. [...] resident's interpretation and agree with the findings, David Alvarado MD at 07/09/2024 11:45 AM Thank you for letting us participate in the care of this patient. If you are a health care provider and have any questions regarding this report, please contact the number above. For patients who have questions, please contact the health primary care coordinator that requested your imaging first. David Torre, Staff Physician Electronically Signed Final Report 07/09/2024 11:53 am US Retroperitoneal Complete Result Date: 07/09/2024 1. Slightly limited exam with no evidence of hydronephrosis or nephrolithiasis. 2. Stable mild right renal atrophy. I have personally reviewed the image(s) and the resident's interpretation and agree with the findings, David Alvarado MD at 07/09/2024 11:07 AM Thank you for letting us participate in the care of this patient. If you are a health care provider and have any questionsregarding this report, please contact the number above. For patients who have questions, please contact the health primary care coordinator that requested your imaging first. David Alvarado, Staff Physicia n Electronically Signed Final Report 07/09/2024 11:16 am Patient was seen and discussed with medical oncology attending Dr. Ken. Duy Blackwood MD Hematology/Oncology Fellow PGY4 07/11/24, 8:25 AM Associated attestation - Sandra Ken MD - 07/12/2024 10:12 PM EDT Attestation: Attending Attestation and Certification Please see Duy Blackwood MD's note for details of the patient history of presentation and data. Ihave discussed, reviewed and agree with the documented History, Physical findings, Assessment and Plan of care. I have examined the patient myself and personally reviewed all studies. Oksana Betancourt is a 58 y.o. female patient with multifocal node positive triple negative LEFT breast cancer originally diagnosed on 02/10/2024, s/p neoadjuvant [id number] x 4 and planning for bilateral mastectomy. She is currently admitted with intractable nausea and vomiting, RUQ pain thought to be due to obstructive biliary process; although workup with MRCP and EUS did not show evidence of obstruction. Her alk phos is significantly elevated and there is a sclerotic lesion seen at her mid left clavicle on CXR at OSH, so bony metastasis is considered on the differential. However I think this is unlikely, because with elevated GGT this is consistent with biliary source, and she hada CT A/P that showed no other bony disease, albeit there are limitations to this study.. she would need to have a fairly large bony disease burden to warrant such an elevated alk phos.. to the extentthat I don't think we would have missed such a disease burden on the CT. Also, bony mets would not explain her presenting symptoms of n/v and RUQ pain. She had a biopsy of that clavicle when she was diagnosed with Hodgkin's... there remains a large incision site in the area of abnormality... so theabnormality could be explained based on the previous biopsy. Also, she has no pain on palpation of that site, which would be unusual for a bony metastasis. I personally reviewed the CXR from June, May and back to November 2023 and the same abnormality is noted in the clavicle and unchanged hattie eye.. though it may be helpful to have a radiologist review and weigh in as well. I discussed this all with Oksana and offered reassurance. I told her I would discuss these findingswith her primary oncology team (Dr. Lyn, Dr. Fulton) and decide on next steps. I let her know thatwe would likely order a nuclear imaging study, either bone scan or PET/CT, favoring the latter given the shortage of Tc99m, and not wishing to delay her surgery any further. In terms of the etiology of her elevated alk phos - one could consider pembrolizumab induced cholangiopathy. This is rare... see isolated case reports (1, 2). However in those cases there were disproportionately high levels of alk phos and GGT compared with ALT and AST levels.. which is consistent with this case. Steroids did not appear to be very helpful, however effects resolved after discontinuation of the drug. One could consider steroids with prednisone 1 mg/ kg daily if her condition is not improving and other etiologies are thought to be less likely. Again, it may not lead to much improvement and will need to carefully consider risk/benefit in setting of infection. 1) Santos witt al, PMID [id number] 2) Quinton, PMID [id number] Recs: - consider radiology review of previous imaging studies (including CXR November 2023) to assess changein sclerotic lesion over time - please check CA 15-3 - consider prednisone 1mg/kg daily for pembro-induced cholangiopathy if her condition is worsening or not improving in next 1-2 days - agree with MRI for adrenal nodules - we will arrange f/up outpatient for additional imaging - rest of care per primary team; much appreciated Una Ken MD Medical Oncology [facility] [place] Fleet Service ManagerBiology Internship, [facility] * Consult Note - Alex Owens [facility] - 07/10/2024 6:26 PM EDT Clinical Pharmacist Note - VancFD Oksana Betancourt [id number] Oksana Betancourt is a 58 y.o. female who is starting antibiotic therapy which includes intravenous vancomycin. Based on a review of the patient???s chart and/or conversation with the patient???s providers vancomycin is being used for treatment of urinary infection with enterococcus faecium with a targeted goal of 10 - 20 mcg/mL. The following Pharmacokinetic data has been evaluated: Wt Readings from Last 1 Encounters: 07/09/24 92.6 kg (204 lb 3.2 oz) Ht Readings from Last 1 Encounters: 07/09/24 166.4 cm (5' 5.5) Labs: Creatinine clearance: Creatinine (mg/dL) Date Value 07/10/2024 3.12 (H) 04/17/2024 1.36 (H) Dosing recommendations: Based on this information, vancomycin therapy will be initiated with a one-time dose of 1500 mg to be given at 1900 (time) on 07/10/24 . A full dosing regimen will be ordered upon complete pharmacist consultation to follow. We will continue to monitor the patient as long as she remains on vancomycin therapy. Thank you forthis consult and please page the care area pharmacist with any questions you may have. Alternately,during off-hours (9p-) you may call [phone] to contact a pharmacist. ALEX OWENS RPH * Plan of Care - Linus Hernandez RN - 07/09/2024 2:32 PM EDT Problem: Adult Inpatient Plan of Care Goal: Plan of Care Review Outcome: Ongoing (Interventions Implemented as Appropriate) Goal: Patient-Specific Goal (Individualized) Outcome: Ongoing (Interventions Implemented as Appropriate) Goal: Absence of Hospital-Acquired Illness or Injury Outcome: Ongoing (Interventions Implemented as Appropriate) Goal: Optimal Comfort and Wellbeing Outcome: Ongoing (Interventions Implemented as Appropriate) Goal: Readiness for Transition of Care Outcome: Ongoing (Interventions Implemented as Appropriate) Problem: Nausea and Vomiting Goal: Fluid and Electrolyte Balance Outcome: Ongoing (Interventions Implemented as Appropriate) * Consult Note - Cely Menchaca MD - 07/09/2024 1:35 PM EDT GASTROENTEROLOGY & HEPATOLOGY CONSULTATION Initial Consult Note Requesting Provider: Elda Gaxiola MD REASON FOR CONSULTATION Abnormal LFTs HISTORY OF PRESENT ILLNESS Oksana Betancourt is a 58 y.o. female with PMH of breast cancer on chemo, CAD s/p CRIS x 7, CHF, aortic valve stenosis s/p replacement, hypothyroidism, paroxysmal A-fib on Eliquis who presents from [facility] on 07/08 with abdominal pain, nausea and vomiting. GI is being consulted for abnormal LFTs and imaging. On presentation, patient was reporting 4 days of nausea, stating if she had not been unable to eat or drink anything since symptoms started. She also is reporting associated right upper quadrant painthat waxes and wanes and was a nagging quality. Also reported 10 episodes of NBNB emesis. Denies any diarrhea, fevers, chills, constipation. Denies any melena, hematochezia or hematemesis. Today she reports improvement in symptoms today. Work was notable for UTI, and was started on Zosyn. Labs today notable for downtrending creatinine from 5 on admission to 3.3 today. LFTs notable for alk phos 2558, T. bili 1.2, AST 124, ALT 61, GGT 2038. RUQ US today demonstrated normal liver parenchyma, no choledocholithiasis, and CBD dilation to 1 cm. Of note, patient was planned for mastectomy this for her breast cancer. ROS: 10 systems reviewed and positive for those in HPI, otherwise negative PAST MEDICAL/SURGICAL HISTORY: Past Medical History: Diagnosis Date CAD (coronary artery disease) Cancer COPD (chronic obstructive pulmonary disease) GERD (gastroesophageal reflux disease) Paroxysmal A-fib MEDICATIONS atorvastatin 80 mg Oral Daily at Noon clopidogreL 75 mg Oral Daily lamoTRIgine 100 mg Oral BID levothyroxine 100 mcg Oral QAM metoprolol succinate XL 50 mg Oral BID pantoprazole EC 40 mg Oral Daily QUEtiapine 150 mg Oral Nightly torsemide 20 mg Oral Daily sodium chloride 0.9 % (flush) 5 mL Intravenous BID baclofen 5 mg Oral BID white petrolatum-mineral oiL Topical (Top) Daily senna-docusate 2 tablet Oral BID polyethylene glycoL (MIRALAX) oral powder 17 g Oral Daily piperacillin-tazobactam 3.375 g Intravenous Q8H sodium chloride 0.9 % (flush), lidocaine, melatonin, naloxone, oxyCODONE OR oxyCODONE, oxyCODONE, acetaminophen ALLERGIES No Known Allergies SOCIAL HISTORY Social History Socioeconomic History Marital status: Spouse name: Not on file Number of children: Not on file Years of education: Not on file Highest education level: Not on file Occupational History Not on file Tobacco Use Smoking status: Former Current packs/day: 0.00 Average packs/day: 1 pack/day for 40.0 years (40.0 ttl pk-yrs) Types: Cigarettes Start date: 11/17/1981 Quit date: 11/17/2021 Years since quittin.6 Passive exposure: Past Smokeless tobacco: Never Vaping Use Vaping status: Never Used Substance and Sexual Activity Alcohol use: Not Currently Drug use: Never Sexual activity: Defer Other Topics Concern Not on file Social History Narrative Not on file Social Determinants of Health Financial Resource Strain: Low Risk (05/29/2024) Overall Financial Resource Strain (CARDIA) Difficulty of Paying Living Expenses: Not very hard Recent Concern: Financial Resource Strain - Medium Risk (03/14/2024) Overall Financial Resource Strain (CARDIA) Difficulty of Paying Living Expenses: Somewhat hard Food Insecurity: No Food Insecurity (07/09/2024) Hunger Vital Sign Worried About Running Out of Food in the Last Year: Never true Ran Out of Food in the Last Year: Never true Transportation Needs: No Transportation Needs (07/09/2024) PRAPARE - Transportation Lack of Transportation (Medical): No Lack of Transportation (Non-Medical): No Physical Activity: Not on file Intimate Partner Violence: Not At Risk (07/09/2024) DH IPV Inpatient Questions Prevent Contact with Others: no Feels Threatened by Someone: no Feels Unsafe at Home: no Physical Signs of Abuse Present: no Housing Stability: Low Risk (07/09/2024) Housing Stability Vital Sign Unable to Pay for Housing in the Last Year: No Number of Times Moved in the Last Year: 1 Homeless in the Last Year: No FAMILY HISTORY Family History Problem Relation Age of Onset Hypertension Mother Skin Cancer Father Asthma Brother Cancer Maternal Uncle suspected, unsure primary Cancer Maternal Grandmother suspected, unsure primary Cancer Paternal Grandmother unsure primary Breast Cancer Paternal Half-Sister 46 of same at age 46 Ovarian Cancer Neg Hx Vitals: 07/09/24 0333 07/09/24 0353 07/09/24 0753 07/09/24 0904 BP: 146/57 147/58 BP Location (NBP): Right arm Right arm Patient Position: Lying Lying Pulse: 77 84 76 Resp: 16 16 Temp: 36.9 ??C (98.4 ??F) 36.3 ??C (97.3 ??F) TempSrc: Oral Oral SpO2: 96% 97% Weight: Height: PHYSICAL EXAM GENERAL: No acute distress, alert and oriented HEENT: AT/NC, sclerae anicteric, moist mucous membranes CHEST: CTA CARDIAC: RRR, normal S1/S2, no appreciable murmurs ABDOMEN: Soft, normoactive bowel sounds, non-tender, non-distended EXT: Warm, no edema NEURO: Grossly intact, moves all extremities, no asterixis SKIN: No jaundice LABS: Lab Results Component Value Date Sodium 142 07/09/2024 Potassium 3.8 07/09/2024 Chloride 103 07/09/2024 Carbon Dioxide 23 07/09/2024 Blood Urea Nitrogen 37 (H) 07/09/2024 Creatinine 4.07 (H) 07/09/2024 Glucose 72 07/09/2024 CBC Lab Results Component Value Date White Blood Cell 9.89 (H) 07/09/2024 Hemoglobin 8.0 (L) 07/09/2024 Hematocrit 24.8 (L) 07/09/2024 Platelet 441 (H) 07/09/2024 LFT's Lab Results Component Value Date Alkaline Phosphatase 2,558 (H) 07/09/2024 Aspartate Aminotransferase 124 (H) 07/09/2024 Albumin 3.1 (L) 07/09/2024 Bilirubin, Total 1.2 07/09/2024 Alanine Aminotransferase 61 (H) 07/09/2024 Protein, Total 7.6 07/09/2024 IMAGING: Reviewed in e[facility] ENDOSCOPY: Reviewed in [facility] IMPRESSION: Oksana Betancourt is a 58 y.o. female with PMH of breast cancer on chemo, CAD s/p CRIS x 7, CHF, aortic valve stenosis s/p replacement, hypothyroidism, paroxysmal A-fib on Eliquis who presents from [facility] on 07/08 with abdominal pain, nausea and vomiting. GI is being consulted for abnormal LFTs and imaging. LFTs are downtrending and RUQ US is negative for choledocholithiasis. It is possible her CBD dilation to 1 cm is a normal variant in the setting of her cholecystectomy, although given elevated LFTs, suspicion remains high for a biliary pathology. We recommend MRCP for further evaluation. Will also discuss case with our advanced endoscopy team to determine if EUS is warranted pending MRCP findings. Differential includes drug-induced liver injury although timeline does not line up with her most recent dose of chemotherapy (which was 6 weeks ago). Although unlikely given her acute onset, would recommend sending AMA and anti-smooth muscle antibody to rule out autoimmune etiologies. RECOMMENDATIONS: -Trend LFTs -Obtain ASMA, AMA -Recommend MRCP -Will discuss with advanced team to determine if EUS is warranted The plan as outlined above was discussed with Dr. Heller. Recommendations were discussed with primary team. Cely Menchaca M.D. Fellow in Gastroenterology and Hepatology Pager #[phone] 07/09/2024 Associated attestation - Juanito Heller MD - 07/09/2024 8:17 PM EDT Attending attestation: I interviewed and examined the patient with Dr. Menchaca on rounds. I confirm the history and keyphysical findings outlined in this note. The assessment and plan were formulated in discussion withme at the time of this encounter, and I agree with them as documented. MRCP planned for this evening. Trend LFTs. Further recommendations to follow, consider EUS if MRCP negative. Juanito Heller MD Section of Gastroenterology [facility] * Initial Assessments - Key Babin RN - 07/09/2024 10:19 AM EDT Office of Care Management Initial Assessment Key Babin RN reviewed record and discussed patient with Care Team. Source of Information: Team, bedside nurse, medical record, and Patient CM Introduced self/reviewed role; services accepted. Admitted From: Transfer from another hospital Location: [facility] Reason for Hospitalization: nausea/vomiting Past medical History: Past Medical History: Diagnosis Date CAD (coronary artery disease) Cancer COPD (chronic obstructive pulmonary disease) GERD (gastroesophageal reflux disease) Paroxysmal A-fib Hospitalizations Within the Past 30 Days: no previous admission in last 30 days Current Decision-Making Capacity: Self If AD's have not been completed the following surrogate would be surrogate decision maker per [place] surrogate decision making law. (Only good for 180 days) Any patient receiving care in [place] must abide by [place] law. The hierarchy for surrogate decision making is: (a) Patient???s spouse or civil union partner unless there is a divorce proceeding, separation agreement, or restraining order limiting that person???s relationship with the patient. (b) Any adult son or daughter of the patient. (c) Either parent of the patient. (d) Any adult brother or sister of the patient. (e) Any adult grandchild of the patient. (f) Any grandparent of the patient. (g) Any adult aunt, uncle, niece, or nephew of the patient. (h) A close friend of the patient. (i) The agent with financial power of personal injury attorney or a conservator appointed in accordance with RSA 464-A. (j) The guardian of the patient???s estate. Advance Care Planning: Attempt Cardiopulmonary Resuscitation - Inpatient <no information> -Advanced Directive: No, need to discuss (Referral made to AD RS) Current Coping/Education/Information Needs: Current Functional Ability: Assistive Person Functional Status Prior to Admission: Independent Prior ADLs & IADLs: Assistance Needed with ADLs & IADLs Driving: Family / Friends Provide Rides Home Environment: Others in the home: alone (states he brother lives in same [facility] [address] from me). Current Living Arrangements: home/apartment/condo. Accessibility Concerns:0 CARMINE. In the last 12 months, was there a time when you were not able to pay the mortgage or rent on time?: No At any time in the past 12 months, were you homeless or living in a snf (including now)?: No In the past 12 months has the [employer], gas, oil, or water [employer] threatened to shut off services in your home?: No Within the past 12 months, you worried that your food would run out before you got the money to buymore.: Never true Within the past 12 months, the food you bought just didn't last and you didn't have money to get more.: Never true Resource / Environmental Concerns: Resource/Environmental Concerns: none In the past 12 months, has lack of transportation kept you from medical appointments or from getting medications?: No In the past 12 months, has lack of transportation kept you from meetings, work, or from getting things needed for daily living?: No Current DME: grab bar - tub/shower, grab bar - toilet Home Address confirmed as: [address] [place] [address] [address] [facility] [address] Social & Family Supports: Brother. All names listed below confirmed with patient as current andcorrect Extended Emergency Contact Information Primary Emergency Contact: [place] [address] [place] Relation: Brother/Fwyasr-tr-uze Current Care Provided by: self Provides Primary Care For: no one Caregiver if needed: none Quality of Family relationships: helpful, supportive Community Resources being provided currently: homecare agency Behavioral Health History: Denies Substance Use/Abuse confirmed: Social History Tobacco Use Smoking Status Former Current packs/day: 0.00 Average packs/day: 1 pack/day for 40.0 years (40.0 ttl pk-yrs) Types: Cigarettes Start date: 11/17/1981 Quit date: 11/17/2021 Years since quittin.6 Passive exposure: Past Smokeless Tobacco Never In the past year have you used an illegal drug or used a prescription medication for non-medical reasons?: No 0 No problems reported 1-2 Low level 3-5 Moderate level 6-8 Substantial level 9- 10 Severe level In the past year have you had 4 or more drinks a day containing alcohol?: No 0 to 7 points: Low risk 8 to 15 points: Medium risk 16 to 19 points: High risk 20 to 40 points: Addiction likely Other Pertinent/Service Specific Information: Patient states she is on service with [facility] for BP checks and PT. Health/Prescription Coverage: Primary Insurance: [employer] MANAGED MEDICARE Payor: [employer] MEDICARE / Plan: [facility] MANAGED MEDICARE COMPLETE / Product Type: *No Product type* / Secondary Insurance: MEDICAID [place] ONLY if patient has Medicare A&B - Does this patient have secondary insurance?: Yes ; Prescription Coverage: Yes Preferred Pharmacy: [facility] [address] [address] [place] Status: Patient is a : No Primary Care Provider confirmed: Gaudencio Scales DO [phone] Patient/Caregiver Goals of Treatment: Potential Needs for Transition of Care: home health care Agency Referrals: I have met with the patient to: discuss discharge planning needs. provide the [facility] [place], Office of Care Management letter from the [employer] Specialist pertaining to rehab referrals. provide a letter describing our affiliations within the [facility] and educate about their right to choose where referrals are sent. provide a list of Home Health Agencies / Durable Medical Equipment vendors which serve their preferred geographic area. provided patient with [facility] Star Quality Rating handout. They have requested referrals to: [facility] Care Agency [facility]. [address] [place] [id number] Note routed to a Weights And Measures Sealer who will communicate referrals to facilities and provide any required information. Transportation: no concerns Transportation Anticipated: family or friend will provide Concerns to be Addressed: no discharge needs identified, denies needs/concerns at this time Assessment: Patient is admitted to Hospital Medicine service presenting with abdominal pain, nauseaand vomiting with Chronic medical conditions include breast cancer, CAD s/p CRIS x7, aortic valve stenosis s.p replacement, hypothyroidism, and PAF on Eliquis per Dr Patel' note 07/09/24. Plan going forward: GI consult, plan for MRCP US, evaluate lab values, VS, and PO Intake and tolerance. Heme/onc consult. Care Management team will continue to follow and assist with discharge planing and coordination of care as indicated. Key Babin RN [phone] Pager [phone] * Plan of Care - Lio Wiley RN - 07/09/2024 1:08 AM EDT Problem: Adult Inpatient Plan of Care Goal: Plan of Care Review Outcome: Ongoing (Interventions Implemented as Appropriate) Goal: Patient-Specific Goal (Individualized) Outcome: Ongoing (Interventions Implemented as Appropriate) Goal: Absence of Hospital-Acquired Illness or Injury Outcome: Ongoing (Interventions Implemented as Appropriate) Goal: Optimal Comfort and Wellbeing Outcome: Ongoing (Interventions Implemented as Appropriate) Goal: Readiness for Transition of Care Outcome: Ongoing (Interventions Implemented as Appropriate) Problem: Nausea and Vomiting Goal: Fluid and Electrolyte Balance Outcome: Ongoing (Interventions Implemented as Appropriate) documented in this encounter Plan of Treatment Upcoming Encounters Date Type Department Care Team (Latest Contact Info) Description 07/30/2024 8:40 AM EST Hospital [place] [address] Jr Fulton MD [facility] [place] [address] 07/30/2024 8:45 AM EST [place] [address] Jr Fulton MD [facility] [place] [address] 07/30/2024 9:20 AM EST Hospital Encounter Mammography at [address] Jr Fulton MD [facility] [place] [address] 07/30/2024 10:51 AM EST Hospital Encounter Outpatient [facility] [place] [phone] Jr Fulton MD [facility] [place] [address] 07/30/2024 10:51 AM EST Anesthesia Event Outpatient [facility] [place] [phone] Megan Orona [place] [address] 07/30/2024 10:51 AM EST - 07/30/2024 1:11 PM EST Surgery Outpatient [facility] [place] [phone] Jr Fulton MD [facility] [place] [address] MASTECTOMY PARTIAL (WRVU 10.13) 08/22/2024 2:00 PM EST Office Visit General Surgery at [address] Cindy Pierce APRN [facility] GENERAL SURGERY [place] [phone] 08/22/2024 3:00 PM EST Office Visit H[place]ology [place] [address] Soo Lyn MD [facility] [place] [address] 08/27/2024 9:30 AM EST Scheduled View Only Radiation Oncology at [address] [phone] Rad NurseSt [place] 08/27/2024 10:00 AM EST Office Visit Radiation Oncology at [address] [phone] Paradise Prado MD [facility] [place] [address] 2024 1:00 PM EDT Office Visit Cardiology at [address] [place] [phone] Ham Montenegro MD [facility] [place] [address] Pending Results Name Type Priority Associated Diagnoses Date /Time XR ERCP Imaging Storage Only Routine 06/20 3:13 PM EDT Scheduled Orders Name Type Priority Associated Diagnoses Orde r Schedule XR ERCP Imaging Storage Only Routine Once PRN (for Radiant use) for 1 Occurrences starting 07/11/2024 until 07/11/2024 Scheduled Procedures Name Priority Associated Diagnoses Date/Ti [...] Yes BREAST CANCER 07/30/2024 10:51 AM EST Scheduled Referrals Name Type Priority Associated Diagnoses Order Schedule Referral to Home Health Outpatient Referral Routine Malignant neoplasm of upper-outer quadrant of left breast in female, estrogen receptor negative Cardiomyopathy, ischemic Ordered: 07/16/2024 Referral to Gastroenterology Outpatient Referral Routine Elevated alkaline phosphatase level Bilious vomiting with nausea Right upper quadrant abdominal pain Ordered: 07/16/2024 Referral to Hematology and Oncology Outpatient Referral Routine Malignant neoplasm of upper-outer quadrant of left breast in female, estrogen receptor negative Elevated alkaline phosphatase level Ordered: 07/16/2024 documented as of this encounter Procedures Procedure Name Priority Date/Time Associated Diagnosis Comments SCAN, PERIPHERAL BLOOD Routine 4:36 AM EDT CBC (WITH DIFF) Routine 07/16/2024 4:36 AM EDT COMPREHENSIVE METABOLIC PANEL Routine 4:36 AM EDT CBC (WITH DIFF) Routine 07/15/2024 3:23 AM EDT COMPREHENSIVE METABOLIC PANEL Routine 3:23 AM EDT VANCOMYCIN LEVEL, RANDOM Timed 024 11:04 AM EDT CBC (WITH DIFF) Routine 07/14/2024 12:18 AM EDT PHOSPHORUS Routine 07/14/2024 12:18 AM EDT COMPREHENSIVE METABOLIC PANEL Routine 12:18 AM EDT VANCOMYCIN LEVEL, RANDOM Timed 10/25/2 024 4:07 PM EDT PROTEIN, TOTAL ELECTROPHORES IS (PERFROMABLE) Routine 07/13/2024 12:07 PM EDT PEP, SERUM (PERFORMABLE) Routine 024 12:07 PM EDT IMMUNOGLOBULIN FREE LIGHT CHAINS, SERUM Routine 07/13/2024 12:07 PM EDT IMMUNOGLOBULINS, QUANTITATIVE Routine 12:07 PM EDT IMMUNOFIXATION ELECTROPHORESIS, SERUM Routine 07/13/2024 12:07 PM EDT IGG 4 Routine 07/13/2024 12:07 PM EDT C3 COMPLEMENT Routine 07/13/2024 12:07 PM EDT C4 COMPLEMENT Routine 07/13/2024 12:07 PM EDT PROTEIN ELECTROPHORESIS, SERUM Routine 1 12:07 PM EDT PROTEIN, URINE ELECTROPHORES IS (PERFORMABLE) Routine 07/13/2024 11:47 AM EDT PEP, URINE RANDOM (PERFORMABLE) Routine 07/13/2024 11:47 AM EDT PROTEIN/CREATININE RATIO, URINE Routine 07/13/2024 11:47 AM EDT U ALBUMIN/CRE RATIO Routine 07/13/2024 11:47 AM EDT PROTEIN ELECTROPHORESIS, URINE, RANDOM Routine 07/13/2024 11:47 AM EDT URINALYSIS DIPSTICK Routine 07/13/2024 11:47 AM EDT VANCOMYCIN LEVEL, RANDOM Timed 024 4:10 AM EDT CBC (WITH DIFF) Routine 07/13/2024 4:10 AM EDT PHOSPHORUS Routine 07/13/2024 4:10 AM EDT COMPREHENSIVE METABOLIC PANEL Routine 4:10 AM EDT SCAN, PERIPHERAL BLOOD Routine 8:34 AM EDT CBC (WITH DIFF) Routine 07/12/2024 8:34 AM EDT VANCOMYCIN LEVEL, RANDOM Timed 024 4:10 AM EDT PHOSPHORUS Routine 07/12/2024 4:10 AM EDT COMPREHENSIVE METABOLIC PANEL Routine 4:10 AM EDT Endoscopic Us Exam, Esoph ([id number]) 07/11/2024 3:40 PM EDT Elevated LFT's VANCOMYCIN LEVEL, RANDOM Timed 024 9:20 AM EDT HC PARTIAL THROMBOPLASTIN TIME Routine 1 4:08 AM EDT PROTHROMBIN TIME Routine 07/11/2024 4:08 AM EDT CBC (WITH DIFF) Routine 07/11/2024 4:08 AM EDT PHOSPHORUS Routine 07/11/2024 4:08 AM EDT COMPREHENSIVE METABOLIC PANEL Routine 4:08 AM EDT LIVER/KIDNEY MICROSOME TYPE 1 ANTIBODY Add-On 07/10/2024 9:30 AM EDT MITOCHONDRIAL ANTIBODY, M2 Routine 07/10 9:30 AM EDT SMOOTH MUSCLE ANTIBODY Routine 9:30 AM EDT CBC (WITH DIFF) Routine 07/10/2024 5:26 AM EDT COMPREHENSIVE METABOLIC PANEL Routine 5:26 AM EDT PHOSPHORUS Routine 07/10/2024 2:15 AM EDT MRI CHOLANGIOPANCREATOGRAPHY Routine 10:28 PM EDT BASIC METABOLIC PANEL Routine 07/09/2024 4:10 PM EDT US ABDOMEN LIMITED Routine 07/09/2024 11:16 AM EDT US RETROPERITONEAL COMPLETE Routine 06/20 10:53 AM EDT URINALYSIS BEAKER MICROSCPIC REFLEX EXAM ([facility]) Routine 07/09/2024 9:25 AM EDT URINALYSIS MICROSCOPIC WITH REFLEX TO CULTURE Routine 07/09/2024 9:25 AM EDT UREA NITROGEN, URINE, RANDOM Routine 9:25 AM EDT CREATININE, URINE, RANDOM Routine 2023 9:25 AM EDT URINALYSIS WITH REFLEX CULTURE Routine 1 9:25 AM EDT URINE CULTURE Routine 07/09/2024 9:25 AM EDT CBC (WITH DIFF) Routine 07/09/2024 5:02 AM EDT GAMMA GT Routine 07/09/2024 5:02 AM EDT COMPREHENSIVE METABOLIC PANEL Routine 5:02 AM EDT documented in this encounter Results * (ABNORMAL) NM PET CT Skull Base to Mid-thigh (07/23/2024 12:17 PM EST) WORKSTATION ID [id number] RAD Anatomical Region Laterality Modality Positron Emissio [...] who have questions please contact the health primary care coordinator that requested your imaging first. ? 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 Electronically signed by: Errol Méndez [facility] ([phone]),at 07/26/2024 10:01 AM Sandra Ken MD IMG PET ORDERABLES * Scan, Peripheral Blood (07/16/2024 4:36 AM EDT) RBC Morphology Abnormal 07/16/2024 5:41 AM EDT [facility] Platelet Estimate Normal Normal 07/16/2024 5:41 AM EDT [facility] Ovalocytes 1-5 /HPF 07/16/2024 5:41 AM EDT [facility] Target Cell 6-10 /HPF 07/16/2024 5:41 AM EDT [facility] Henry cells 1-5 /HPF 07/16/2024 5:41 AM EDT [facility] HJB Present 07/16/2024 5:41 AM EDT [facility] Plat, Giant <1 /HPF 07/16/2024 5:41 AM EDT [facility] Blood VENOUS BLOOD SPECIMEN / Unknown IP Care Team Draw / Unknown 07/16/2024 4:36 AM EDT 07/16/2024 4:46 AM EDT Elda Gaxiola MD HEMATOLOGY ORDERABLE S [facility] [place] [address] * (ABNORMAL) Comprehensive metabolic panel (07/16/2024 4:36 AM EDT) Glucose 100 65 - 199 mg/dL 07/16/2024 5:29 AM EDT [facility] Comment:Glucose Concentratio n >=200 mg/dL plus symptoms is consistent with Diabetes Mellitus. Blood Urea Nitrogen 22(H) 8 - 18 mg/dL 07/16/2024 5:29 AM [facility] Creatinine 1.65(H) 0.70 - 1.20 mg/dL 07/16/2024 5:29 AM [facility] Sodium 140 135 - 145 mMol/L 07/16/2024 5:29 AM [facility] Potassium 4.3 3.5 - 5.0 mMol/L 07/16/2024 5:29 AM [facility] Chloride 101 98 - 107 mMol/L 07/16/2024 5:29 AM [facility] Carbon Dioxide 26 22 - 31 mMol/L 07/16/2024 5:29 AM [facility] Anion Gap 13 5 - 15 mMol/L 07/16/2024 5:29 AM [facility] Calcium 10.0 8.5 - 10.5 mg/dL 07/16/2024 5:29 AM [facility] Protein, Total 8.4(H) 6.1 - 8.0 g/dL 07/16/2024 5:29 AM [facility] Albumin 3.4 3.2 - 5.2 g/dL 07/16/2024 5:29 AM [facility] Aspartate Aminotransferase 207(H) <=30 unit/L 07/16/2024 5:29 AM [facility] Alanine Aminotransferase 99(H) 0 - 30 unit/L 07/16/2024 5:29 AM [facility] Alkaline Phosphatase 2,834(H) 35 - 105 unit/L 07/16/2024 5:29 AM [facility] Bilirubin, Total 1.4(H) <=1.3 mg/dL 07/16/2024 5:29 AM [facility] Est Glomerular Filtration Rate - Female 35 mL/min/1. 73 m?? 07/16/2024 5:29 AM EDT [facility] Comment: This patient's estimated GFR [...] AM EDT Srikanth Patel MD CHEMISTRY ORDERABLES [facility] [place] [address] * (ABNORMAL) CBC (with Diff) (07/16/2024 4:36 AM EDT) White Blood Cell 9.36 4.00 - 9.50 x10(3)/mc L 07/16/2024 5:41 AM EDT [facility] Red Blood Cell 2.92(L) 4.00 - 5.21 x10(6)/mc L 07/16/2024 5:41 AM EDT [facility] Hemoglobin 8.8(L) 11.7 - 15.5 g/dL 07/16/2024 5:41 AM T [facility] Hematocrit 27.1(L) 35.7 - 45.8 % 07/16/2024 5:41 AM EDT [facility] Mean Cell Volume 92.8 82.6 - 94.4 fL 07/16/2024 5:41 AM T [facility] Mean Cell Hemoglobin 30.1 27.1 - 32.0 pg 07/16/2024 5:41 AM EDT [facility] Mean Cell Hemoglobin Concentration 32.5 31.7 - 35.0 g/dL 07/16/2024 5:41 AM [facility] Platelet 325 145 - 357 x10(3)/mc L 07/16/2024 5:41 AM [facility] Mean Platelet Volume 12.9 7.6 - 12.9 fL 07/16/2024 5:41 AM [facility] RDW Standard Deviation 69.4(H) 37.0 - 46.0 fL 07/16/2024 5:41 AM [facility] RDW coefficient of variation 20.4(H) 11.5 - 14.1 % 07/16/2024 5:41 AM [facility] NRBC% auto 0.0 % 07/16/2024 5:41 AM [facility] NRBC Absolute <0.01 <0.01 x10(3)/mc L 07/16/2024 5:41 AM [facility] Neutrophil % 46.0 % 07/16/2024 5:41 AM [facility] Comment:This is an appended report. These results have been appended to a previously preliminary verified report. Neutrophil Absolute (ANC) - Automated 4.30 1.70 - 6.10 x10(3)/mc L 07/16/2024 5:41 AM [facility] Comment:This is an appended report. These results have been appended to a previously preliminary verified report. Lymph % 38.5 % 07/16/2024 5:41 AM [facility] Comment:This is an appended report. These results have been appended to a previously preliminary verified report. Lymph Absolute 3.60(H) 0.90 - 3.20 x10(3)/mc L 07/16/2024 5:41 AM [facility] Comment:This is an appended report. These results have been appended to a previously preliminary verified report. Monocyte % 8.2 % 07/16/2024 5:41 AM [facility] Comment:This is an appended report. These results have been appended to a previously preliminary verified report. Monocyte Absolute 0.77 0.30 - 0.90 x10(3)/mc L 07/16/2024 5:41 AM EDT [facility] Comment:This is an appended report. These results have been appended to a previously preliminary verified report. Eos % 6.6 % 07/16/2024 5:41 AM EDT [facility] Comment:This is an appended report. These results have been appended to a previously preliminary verified report. Eos Absolute 0.62(H) 0.00 - 0.40 x10(3)/mc L 07/16/2024 5:41 AM EDT [facility] Comment:This is an appended report. These results have been appended to a previously preliminary verified report. Basophil % 0.5 % 07/16/2024 5:41 AM EDT [facility] Comment:This is an appended report. These results have been appended to a previously preliminary verified report. Baso Absolute 0.05 0.00 - 0.10 x10(3)/mc L 07/16/2024 5:41 AM EDT [facility] Comment:This is an appended report. These results have been appended to a previously preliminary verified report. Immature Gran % 0.2 % 5:41 AM EDT [facility] Comment:This is an appended report. These results have been appended to a previously preliminary verified report. Immature Gran Absolute <0.04 0.00 - 0.04 x10(3)/mc L 07/16/2024 5:41 AM EDT [facility] Comment:This is an appended report. These results have been appended to a previously preliminary verified report. Blood VENOUS BLOOD SPECIMEN / Unknown IP Care Team Draw / Unknown 07/16/2024 4:36 AM EDT 07/16/2024 4:46 AM EDT Elda Gaxiola MD HEMATOLOGY ORDERABLE S [facility] [place] [address] * (ABNORMAL) Comprehensive metabolic panel (07/15/2024 3:23 AM EDT) Glucose 112 65 - 199 mg/dL 07/15/2024 4:31 AM EDT [facility] Comment:Glucose Concentratio n >=200 mg/dL plus symptoms is consistent with Diabetes Mellitus. Blood Urea Nitrogen 22(H) 8 - 18 mg/dL 07/15/2024 4:31 AM EDT [facility] Creatinine 1.80(H) 0.70 - 1.20 mg/dL 07/15/2024 4:31 AM [facility] Sodium 139 135 - 145 mMol/L [facility] Potassium 3.9 3.5 - 5.0 mMol/L 07/15/2024 4:31 AM [facility] Chloride 98 98 - 107 mMol/L 07/15/2024 4:31 AM [facility] Carbon Dioxide 26 22 - 31 mMol/L 07/15/2024 4:31 AM [facility] Anion Gap 15 5 - 15 mMol/L 07/15/2024 4:31 AM [facility] Calcium 9.6 8.5 - 10.5 mg/dL 07/15/2024 4:31 AM [facility] Protein, Total 8.2(H) 6.1 - 8.0 g/dL 07/15/2024 4:31 AM [facility] Albumin 3.1(L) 3.2 - 5.2 g/dL 07/15/2024 4:31 AM [facility] Aspartate Aminotransferase 201(H) <=30 unit/L 07/[facility]2024 4[facility] Alanine Aminotransferase 93(H) 0 - 30 unit/L 07/15/2024 4:31 [facility] Alkaline Phosphatase 2,850(H) 35 - 105 unit/L 07/15/2024 4:31 AM EDT [facility] Bilirubin, Total 1.3 <=1.3 mg/dL 07/15/2024 4:31 AM EDT [facility] Est Glomerular Filtration Rate - Female 32 mL/min/1. 73 m?? 07/15/2024 4:31 AM EDT [facility] Comment: This patient's estimated GFR [...] Unknown IP Care Team Draw / Unknown 07/15/2024 3:23 AM EDT 07/15/2024 3:42 AM EDT Srikanth Patel MD CHEMISTRY ORDERABLES [facility] [place] [address] * (ABNORMAL) CBC (with Diff) (07/15/2024 3:23 AM EDT) White Blood Cell 8.05 4.00 - 9.50 x10(3)/mc L 07/15/2024 3:55 AM EDT [facility] Red Blood Cell 2.85(L) 4.00 - 5.21 x10(6)/mc L 07/15/2024 3:55 AM EDT [facility] Hemoglobin 8.4(L) 11.7 - 15.5 g/dL 07/15/2024 3:55 AM EDT [facility] Hematocrit 26.3(L) 35.7 - 45.8 % 07/15/2024 3:55 AM [facility] Mean Cell Volume 92.3 82.6 - 94.4 fL 07/15/2024 3:55 AM [facility] Mean Cell Hemoglobin 29.5 27.1 - 32.0 pg 07/15/2024 3:55 AM [facility] Mean Cell Hemoglobin Concentration 31.9 31.7 - 35.0 g/dL 07/15/2024 3:55 AM [facility] Platelet 317 145 - 357 x10(3)/mc L 07/15/2024 3:55 AM [facility] Mean Platelet Volume 12.8 7.6 - 12.9 fL 07/15/2024 3:55 AM [facility] RDW Standard Deviation 69.7(H) 37.0 - 46.0 fL 07/15/2024 3:55 AM [facility] RDW coefficient of variation 20.8(H) 11.5 - 14.1 % 07/15/2024 3:55 AM [facility] NRBC% auto 0.0 % 07/15/2024 3:55 AM [facility] NRBC Absolute <0.01 <0.01 x10(3)/mc L 07/15/2024 3:55 AM [facility] Neutrophil % 43.7 % 07/15/2024 3:55 AM [facility] Neutrophil Absolute (ANC) - Automated 3.52 1.70 - 6.10 x10(3)/mc L 07/15/2024 3:55 AM [facility] Lymph % 39.5 % 07/15/2024 3:55 AM [facility] Lymph Absolute 3.18 0.90 - 3.20 x10(3)/mc L 07/15/2024 3:55 AM [facility] Monocyte % 8.1 % 07/15/2024 3:55 AM [facility] Monocyte Absolute 0.65 0.30 - 0.90 x10(3)/mc L 07/15/2024 3:55 AM EDT [facility] Eos % 8.0 % 07/15/2024 3:55 AM EDT [facility] Eos Absolute 0.64(H) 0.00 - 0.40 x10(3)/mc L 07/15/2024 3:55 AM EDT [facility] Basophil % 0.5 % 07/15/2024 3:55 AM EDT [facility] Baso Absolute 0.04 0.00 - 0.10 x10(3)/mc L 07/15/2024 3:55 AM EDT [facility] Immature Gran % 0.2 % 3:55 AM EDT [facility] Immature Gran Absolute <0.04 0.00 - 0.04 x10(3)/mc L 07/15/2024 3:55 AM EDT [facility] Blood VENOUS BLOOD SPECIMEN / Unknown IP Care Team Draw / Unknown 07/15/2024 3:23 AM EDT 07/15/2024 3:42 AM EDT Elda Gaxiola MD HEMATOLOGY ORDERABLE S [facility] [place] [address] * Vancomycin Level, Random (07/14/2024 11:04 AM EDT) Vancomycin, Random 17.4 mg/L 2023 11:42 AM EDT [facility] Comment:This level is for de termination of the patient's vancomycin siva-czydn-uhb-curve (AUC) value. Contact the inpatient pharmacy for interpretation. Blood VENOUS BLOOD SPECIMEN / Unknown IP Care Team Draw / Unknown 07/14/2024 11:04 AM EDT 07/14/2024 11:10 AM EDT Elda Gaxiola MD CHEMISTRY ORDERABLES [facility] [place] [address] * (ABNORMAL) Comprehensive metabolic panel (07/14/2024 12:18 AM EDT) Glucose 119 65 - 199 mg/dL [facility]24 [facility] Comment:Glucose Concentratio n >=200 mg/dL plus symptoms is consistent with Diabetes Mellitus. Blood Urea Nitrogen 24(H) 8 - 18 mg/dL 07/14/2024 1:19 AM [facility] Creatinine 2.09(H) 0.70 - 1.20 mg/dL 07/14/2024 1:19 AM [facility] Sodium 138 135 - 145 mMol/L 07/14/2024 1:19 AM [facility] Potassium 3.7 3.5 - 5.0 mMol/L 07/14/2024 1:19 AM [facility] Chloride 96(L) 98 - 107 mMol/L 07/14/2024 1:19 AM [facility] Carbon Dioxide 30 22 - 31 mMol/L 07/14/2024 1:19 AM [facility] Anion Gap 12 5 - 15 mMol/L 07/14/2024 1:19 AM [facility] Calcium 9.3 8.5 - 10.5 mg/dL 07/14/2024 1:19 AM [facility] Protein, Total 7.9 6.1 - 8.0 g/dL 07/14/2024 1:19 AM [facility] Albumin 3.2 3.2 - 5.2 g/dL 07/14/2024 1:19 AM [facility] Aspartate Aminotransferase 202(H) <=30 unit/L 07/14/2024 1:19 AM [facility] Alanine Aminotransferase 89(H) 0 - 30 unit/L 07/14/2024 1:19 AM [facility] Alkaline Phosphatase 2,893(H) 35 - 105 unit/L 07/14/2024 1:19 AM EDT [facility] Bilirubin, Total 1.2 <=1.3 mg/dL 07/14/2024 1:19 AM EDT [facility] Est Glomerular Filtration Rate - Female 27 mL/min/1. 73 m?? 07/14/2024 1:19 AM EDT [facility] Comment: This patient's estimated GFR [...] 12:18 AM EDT 07/14/2024 12:30 AM EDT Srikanth Patel MD CHEMISTRY ORDERABLES [facility] [place] [address] * (ABNORMAL) CBC (with Diff) (07/14/2024 12:18 AM EDT) White Blood Cell 8.50 4.00 - 9.50 x10(3)/mc L 07/14/2024 12:35 AM EDT [facility] Red Blood Cell 2.78(L) 4.00 - 5.21 x10(6)/mc L 07/14/2024 12:35 AM EDT [facility] Hemoglobin 8.4(L) 11.7 - 15.5 g/dL 07/14/2024 12:35 AM EDT [facility] Hematocrit 25.6(L) 35.7 - 45.8 % 07/14/2024 12:35 AM [facility] Mean Cell Volume 92.1 82.6 - 94.4 fL 07/14/2024 12:35 AM [facility] Mean Cell Hemoglobin 30.2 27.1 - 32.0 pg 07/14/2024 12:35 AM [facility] Mean Cell Hemoglobin Concentration 32.8 31.7 - 35.0 g/dL 07/14/2024 12:35 AM [facility] Platelet 306 145 - 357 x10(3)/mc L 07/14/2024 12:35 AM [facility] Mean Platelet Volume 12.6 7.6 - 12.9 fL 07/14/2024 12:35 AM [facility] RDW Standard Deviation 68.2(H) 37.0 - 46.0 fL 07/14/2024 12:35 AM [facility] RDW coefficient of variation 20.2(H) 11.5 - 14.1 % 07/14/2024 12:35 AM [facility] NRBC% auto 0.0 % 07/14/2024 12:35 AM [facility] NRBC Absolute <0.01 <0.01 x10(3)/mc L 07/14/2024 12:35 AM [facility] Neutrophil % 49.9 % 07/14/2024 12:35 AM [facility] Neutrophil Absolute (ANC) - Automated 4.25 1.70 - 6.10 x10(3)/mc L 07/14/2024 12:35 AM [facility] Lymph % 36.2 % 07/14/2024 12:35 AM [facility] Lymph Absolute 3.08 0.90 - 3.20 x10(3)/mc L 07/14/2024 12:35 AM [facility] Monocyte % 7.1 % 07/14/2024 12:35 AM EDT [facility] Monocyte Absolute 0.60 0.30 - 0.90 x10(3)/mc L 07/14/2024 12:35 AM EDT [facility] Eos % 6.0 % 07/14/2024 12:35 AM EDT [facility] Eos Absolute 0.51(H) 0.00 - 0.40 x10(3)/mc L 07/14/2024 12:35 AM EDT [facility] Basophil % 0.4 % 07/14/2024 12:35 AM EDT [facility] Baso Absolute <0.04 0.00 - 0.10 x10(3)/mc L 07/14/2024 12:35 AM EDT [facility] Immature Gran % 0.4 % 12:35 AM EDT [facility] Immature Gran Absolute <0.04 0.00 - 0.04 x10(3)/mc L 07/14/2024 12:35 AM EDT [facility] Blood VENOUS BLOOD SPECIMEN / Unknown IP Care Team Draw / Unknown 07/14/2024 12:18 AM EDT 07/14/2024 12:30 AM EDT Elda Gaxiola MD [place] [address] * Phosphorus (07/14/2024 12:18 AM EDT) Phosphorus 3.0 2.5 - 4.5 mg/dL 07/14/2024 1:00 AM EDT [facility] Blood VENOUS BLOOD SPECIMEN / Unknown IP Care Team Draw / Unknown 07/14/2024 12:18 AM EDT 07/14/2024 12:30 AM EDT Elda Gaxiola MD CHEMISTRY ORDERABLES [facility] [place] [address] * Vancomycin Level, Random (07/13/2024 4:07 PM EDT) [facility] Vancomycin, Random 16.9 mg/L 2023 4:49 PM EDT [facility] Comment:This level is for de termination of the patient's vancomycin myfv-elrxw-zyl-curve (AUC) value. Contact the inpatient pharmacy for interpretation. Blood VENOUS BLOOD SPECIMEN / Unknown IP Care Team Draw / Unknown 07/13/2024 4:07 PM EDT 07/13/2024 4:15 PM EDT Elda Gaxiola MD CHEMISTRY ORDERABLES [facility] [place] [address] * (ABNORMAL) Immunoglobulins, Quantitative (07/13/2024 12:07 PM EDT) [facility] IgG 1,460 700 - 1,600 mg/dL 07/17/2024 12:27 PM EDT [facility] IgA 492(H) 70 - 400 mg/dL 07/17/2024 12:27 PM EDT [facility] IgM 133 40 - 230 mg/dL 07/17/2024 12:27 PM EDT [facility] Blood VENOUS BLOOD SPECIMEN / Unknown IP Care Team Draw / Unknown 07/13/2024 12:07 PM EDT 07/13/2024 12:28 PM EDT Elda Gaxiola MD CHEMISTRY ORDERABLES [facility] [place] [address] * Immunofixation Electrophoresis, Serum (07/13/2024 12:07 PM EDT) [facility] Immunofixation Interpretation, Serum IgG lambda restriction seen. Clinical significance of this finding is not clear. Suggest repeat study in 6-12 months. 07/18/2024 4:37 PM EDT [facility] Signing Pathologist JIMENEZ ROTHMAN MD 07/18/2024 4:37 PM EDT [facility] Blood VENOUS BLOOD SPECIMEN / Unknown IP Care Team Draw / Unknown 07/13/2024 12:07 PM EDT 07/13/2024 12:28 PM EDT Elda Gaxiola MD CHEMISTRY ORDERABLES [facility] [place] [place] [address] * (ABNORMAL) IgG 4 (07/13/2024 12:07 PM EDT) IgG 4 125.8(H) 3.9 - 86.4 mg/dL 07/17/2024 9:07 AM EDT [facility] Blood VENOUS BLOOD SPECIMEN / Unknown IP Care Team Draw / Unknown 07/13/2024 12:07 PM EDT 07/13/2024 12:28 PM EDT Elda Gaxiola MD IMMUNOLOGY ORDERABLE S Performing Organization Address City/[facility]/ZIP Co de Phone Number [facility] [place] [address] * Protein, Serum Electrophoresis (07/13/2024 12:07 PM EDT) Blood VENOUS BLOOD SPECIMEN / Unknown IP Care Team Draw / Unknown 07/13/2024 12:07 PM EDT 07/13/2024 12:28 PM EDT Elda Gaxiola MD URINE ORDERABLES Performing Organization Address City/[facility]/ZIP Co de Phone Number [facility] [place] [place] [address] * (ABNORMAL) PEP, Serum (07/13/2024 12:07 PM EDT) Protein, Total 7.3 6.1 - 8.0 g/dL 07/17/2024 9:57 AM EDT [facility] Albumin Electrophoresis 2.96(L) 3.20 - 5.20 g/dL 07/17/2024 9:57 AM EDT [facility] Alpha 1 Globulin 0.43(H) 0.10 - 0.30 g/dL 07/17/2024 9:57 AM EDT [facility] Alpha 2 Globulin 1.56(H) 0.40 - 0.90 g/dL 07/17/2024 9:57 AM EDT [facility] Beta Globulin 0.83 0.50 - 1.00 g/dL 07/17/2024 9:57 AM EDT [facility] Gamma Globulin 1.51(H) 0.50 - 1.30 g/dL 07/17/2024 9:57 AM EDT [facility] M1 Band 07/17/2024 9:57 AM EDT [facility] Comment:Serum protein electr ophoresis shows a band that is a possible paraprotein. Immunofixation and quantitative immunoglobulin testing will be performed on this sample to verify that it is a monoclonal immunoglobulin. Blood VENOUS BLOOD SPECIMEN / Unknown IP Care Team Draw / Unknown 07/13/2024 12:07 PM EDT 07/13/2024 12:28 PM EDT Elda Gaxiola MD URINE ORDERABLES [facility] [place] [address] * (ABNORMAL) Free Light Chains, Serum (07/13/2024 12:07 PM EDT) [place] Free Light Chain 12.70(H) 0.72 - 2.75 mg/dL 07/13/2024 1:38 PM EDT [facility] Lambda Free Light Chain 7.89(H) 0.57 - 2.15 mg/dL 07/13/2024 1:38 PM EDT [facility] [place]/Lambda FLC Ratio 1.6096 0.4000 - 2.5800 07/13/2024 1:38 PM EDT [facility] Blood VENOUS BLOOD SPECIMEN / Unknown IP Care Team Draw / Unknown 07/13/2024 12:07 PM EDT 07/13/2024 12:28 PM EDT Elda Gaxiola MD CHEMISTRY ORDERABLES [facility] [place] [address] * (ABNORMAL) C4 Complement (07/13/2024 12:07 PM EDT) Complement C4 73(H) 10 - 40 mg/dL 07/13/2024 1:01 PM EDT [facility] Blood VENOUS BLOOD SPECIMEN / Unknown IP Care Team Draw / Unknown 07/13/2024 12:07 PM EDT 07/13/2024 12:28 PM EDT Elda Gaxiola MD CHEMISTRY ORDERABLES [facility] [place] [address] * C3 Complement (07/13/2024 12:07 PM EDT) Complement C3 149 90 - 180 mg/dL 07/13/2024 1:01 PM EDT [facility] Blood VENOUS BLOOD SPECIMEN / Unknown IP Care Team Draw / Unknown 07/13/2024 12:07 PM EDT 07/13/2024 12:28 PM EDT Elda Gaxiola MD CHEMISTRY ORDERABLES [facility] [place] [address] * Protein, Urine Electrophoresis (07/13/2024 11:47 AM EDT) Urine URINE SPECIMEN / Unknown Non Blood Collection / Unknown 07/13/2024 11:47 AM EDT 07/13/2024 3:51 PM EDT Elda Gaxiola MD URINE ORDERABLES Performing Organization Address City/[facility]/ZIP Co de Phone Number [facility] [place] [place] [address] * (ABNORMAL) PEP, Urine Random (07/13/2024 11:47 AM EDT) Albumin, Urine Electrophoresis 23 % total 07/18/2024 2:08 PM EDT [facility] Globulin, Random Urine 77 % total 07/18/2024 2:08 PM EDT [facility] M1 Band, Urine 07/18/2024 2:08 PM EDT [facility] Comment:There is no evidence of clonal free light chains in this patient's urine sample. Protein, Urine 38(H) 0 - 12 mg/dL 07/18/2024 2:08 PM EDT [facility] Urine URINE SPECIMEN / Unknown Non Blood Collection / Unknown 07/13/2024 11:47 AM EDT 07/13/2024 3:51 PM EDT Elda Gaxiola MD URINE ORDERABLES Performing Organization Address City/[facility]/ZIP Co de Phone Number [facility] [place] [address] * (ABNORMAL) Urinalysis Dipstick (07/13/2024 11:47 AM EDT) Glucose, Urine Dipstick Negative Negative 07/13/2024 4:03 PM EDT [facility] Protein, Urine Dipstick 30 mg/dL(A) Negative 07/13/2024 4:03 PM EDT [facility] Bilirubin, Urine Dipstick Negative Negative 07/13/2024 4:03 PM EDT [facility] Comment:Clinical correlation required for positive Urine Bilirubin results as false positive may occur with some drugs and drug related products. If a false positive is suspected a serum total bilirubin should be considered if clinically indicated. Urobilinogen, Urine Dipstick Normal Normal, 0.2 mg/dL, 1.0 mg/dL 07/13/2024 4:03 PM EDT [facility] pH, Urine (dipstick) 8.0 5.0 - 8.0 07/13/2024 4:03 PM EDT [facility] Blood, Urine Dipstick Negative Negative 07/13/2024 4:03 PM EDT [facility] Ketone, Urine Dipstick Negative Negative 07/13/2024 4:03 PM EDT [facility] Nitrite, Urine Dipstick Negative Negative 07/13/2024 4:03 PM EDT [facility] Leukocytes, Urine Dipstick Negative Negative 07/13/2024 4:03 PM EDT [facility] Specific Britt Urine Automated 1.011 1.005 - 1.030 07/13/2024 4:03 PM EDT [facility] Appearance, Urine Dipstick Clear Clear 07/13/2024 4:03 PM EDT [facility] Color, Urine Dipstick Yellow Yellow, Dark Yellow 07/13/2024 4:03 PM EDT [facility] CULTURE ADDED? 07/13/2024 4:03 PM [facility] Urine URINE SPECIMEN OBTAINED BY CLEAN CATCH PROCEDURE / Unknown Non Blood Collection / Unknown 07/13/2024 11:47 AM EDT 07/13/2024 3:51 PM EDT Elda Gaxiola MD URINE ORDERABLES [facility] [place] [address] * (ABNORMAL) Protein/Creatinine Ratio, urine (07/13/2024 11:47 AM EDT) Protein, Urine 38(H) 0 - 12 mg/dL 07/13/2024 4:59 PM EDT [facility] Creatinine, Urine 39 mg/dL 07/13/2024 4:59 PM EDT [facility] Protein / Creatinine Ratio, Urine 1.0 ratio 07/13/2024 4:59 PM EDT [facility] Urine URINE SPECIMEN / Unknown Non Blood Collection / Unknown 07/13/2024 11:47 AM EDT 07/13/2024 3:51 PM EDT Elda Gaxiola MD URINE ORDERABLES Performing Organization Address City/[facility]/ZIP Co de Phone Number [facility] [place] [address] * (ABNORMAL) U Albumin/Cre Ratio (07/13/2024 11:47 AM EDT) Albumin, Urine 46.2 mg/L 07/13/2024 4:59 PM EDT [facility] Creatinine, Urine 39 mg/dL 024 4:59 PM EDT [facility] Albumin / Creatinine Ratio, Urine 118(H) 0 - 29 mcg/mg Cr 07/13/2024 4:59 PM EDT [facility] Comment: Reference Ranges: ?? <30 [...] Gaxiola MD URINE ORDERABLES Performing Organization Address City/[facility]/ZIP Co de Phone Number [facility] [place] [address] * (ABNORMAL) Comprehensive metabolic panel (07/13/2024 4:10 AM EDT) Glucose 114 65 - 199 mg/dL 07/13/2024 5:24 AM [facility] Comment:Glucose Concentratio n >=200 mg/dL plus symptoms is consistent with Diabetes Mellitus. Blood Urea Nitrogen 21(H) 8 - 18 mg/dL 07/13/2024 5:24 AM [facility] Creatinine 2.38(H) 0.70 - 1.20 mg/dL 07/13/2024 5:24 AM [facility] Sodium 141 135 - 145 mMol/L 07/13/2024 5:24 AM [facility] Potassium 3.6 3.5 - 5.0 mMol/L 07/13/2024 5:24 AM [facility] Chloride 99 98 - 107 mMol/L 07/13/2024 5:24 AM [facility] Carbon Dioxide 29 22 - 31 mMol/L 07/13/2024 5:24 AM [facility] Anion Gap 13 5 - 15 mMol/L 07/13/2024 5:24 AM [facility] Calcium 9.5 8.5 - 10.5 mg/dL 07/13/2024 5:24 AM [facility] Protein, Total 8.0 6.1 - 8.0 g/dL 07/13/2024 5:24 AM [facility] Albumin 3.1(L) 3.2 - 5.2 g/dL 07/13/2024 5:24 AM [facility] Aspartate Aminotransferase 187(H) <=30 unit/L 07/13/2024 5:24 AM [facility] Alanine Aminotransferase 80(H) 0 - 30 unit/L 07/13/2024 5:24 AM [facility] Alkaline Phosphatase 2,911(H) 35 - 105 unit/L 07/13/2024 5:24 AM EDT [facility] Bilirubin, Total 1.3 <=1.3 mg/dL 07/13/2024 5:24 AM EDT [facility] Est Glomerular Filtration Rate - Female 23 mL/min/1. 73 m?? 07/13/2024 5:24 AM EDT [facility] Comment: This patient's estimated GFR [...] IP Care Team Draw / Unknown 07/13/2024 4:10 AM EDT 07/13/2024 4:34 AM EDT Srikanth Patel MD CHEMISTRY ORDERABLES [facility] [place] [place] [address] * (ABNORMAL) CBC (with Diff) (07/13/2024 4:10 AM EDT) White Blood Cell 10.72(H) 4.00 - 9.50 x10(3)/mc L 07/13/2024 4:44 AM EDT [facility] Red Blood Cell 2.90(L) 4.00 - 5.21 x10(6)/mc L 07/13/2024 4:44 AM EDT [facility] Hemoglobin 8.6(L) 11.7 - 15.5 g/dL 07/13/2024 4:44 AM EDT [facility] Hematocrit 26.6(L) 35.7 - 45.8 % 07/13/2024 4:44 AM [facility] Mean Cell Volume 91.7 82.6 - 94.4 fL 07/13/2024 4:44 AM [facility] Mean Cell Hemoglobin 29.7 27.1 - 32.0 pg 07/13/2024 4:44 AM [facility] Mean Cell Hemoglobin Concentration 32.3 31.7 - 35.0 g/dL 07/13/2024 4:44 AM [facility] Platelet 322 145 - 357 x10(3)/mc L 07/13/2024 4:44 AM [facility] Mean Platelet Volume 12.5 7.6 - 12.9 fL 07/13/2024 4:44 AM [facility] RDW Standard Deviation 66.2(H) 37.0 - 46.0 fL 07/13/2024 4:44 AM [facility] RDW coefficient of variation 19.9(H) 11.5 - 14.1 % 07/13/2024 4:44 AM [facility] NRBC% auto 0.0 % 07/13/2024 4:44 AM [facility] NRBC Absolute <0.01 <0.01 x10(3)/mc L 07/13/2024 4:44 AM [facility] Neutrophil % 49.8 % 07/13/2024 4:44 AM [facility] Neutrophil Absolute (ANC) - Automated 5.35 1.70 - 6.10 x10(3)/mc L 07/13/2024 4:44 AM [facility] Lymph % 36.6 % 07/13/2024 4:44 AM [facility] Lymph Absolute 3.92(H) 0.90 - 3.20 x10(3)/mc L 07/13/2024 4:44 AM [facility] Monocyte % 8.4 % 07/13/2024 4:44 AM [facility] Monocyte Absolute 0.90 0.30 - 0.90 x10(3)/mc L 07/13/2024 4:44 AM EDT [facility] Eos % 4.7 % 07/13/2024 4:44 AM EDT [facility] Eos Absolute 0.50(H) 0.00 - 0.40 x10(3)/mc L 07/13/2024 4:44 AM EDT [facility] Basophil % 0.3 % 07/13/2024 4:44 AM EDT [facility] Baso Absolute <0.04 0.00 - 0.10 x10(3)/mc L 07/13/2024 4:44 AM EDT [facility] Immature Gran % 0.2 % 4:44 AM EDT [facility] Immature Gran Absolute <0.04 0.00 - 0.04 x10(3)/mc L 07/13/2024 4:44 AM EDT [facility] Blood VENOUS BLOOD SPECIMEN / Unknown IP Care Team Draw / Unknown 07/13/2024 4:10 AM EDT 07/13/2024 4:34 AM EDT Elda Gaxiola MD HEMATOLOGY ORDERABLE S [facility] [place] [place] [address] * Phosphorus (07/13/2024 4:10 AM EDT) Phosphorus 3.0 2.5 - 4.5 mg/dL 07/13/2024 5:07 AM EDT [facility] Blood VENOUS BLOOD SPECIMEN / Unknown IP Care Team Draw / Unknown 07/13/2024 4:10 AM EDT 07/13/2024 4:34 AM EDT Elda Gaxiola MD CHEMISTRY ORDERABLES [facility] [place] [place] [address] * Vancomycin Level, Random (07/13/2024 4:10 AM EDT) Vancomycin, Random 22.5 mg/L 2023 5:07 AM EDT [facility] Comment:This level is for de termination of the patient's vancomycin lkpa-dwvfw-wgb-curve (AUC) value. Contact the inpatient pharmacy for interpretation. Blood VENOUS BLOOD SPECIMEN / Unknown IP Care Team Draw / Unknown 07/13/2024 4:10 AM EDT 07/13/2024 4:34 AM EDT Elda Gaxiola MD CHEMISTRY ORDERABLES [facility] [place] [address] * Scan, Peripheral Blood (07/12/2024 8:34 AM EDT) RBC Morphology Abnormal 07/12/2024 10:31 AM EDT [facility] Platelet Estimate Normal Normal 024 10:31 AM EDT [facility] Macrocyte 1-5 /HPF 07/12/2024 10:31 AM EDT [facility] Microcyte 1-5 /HPF 07/12/2024 10:31 AM EDT [facility] Hypochromasia Slight 07/12/2024 10:31 AM EDT [facility] Target Cell 1-5 /HPF 07/12/2024 10:31 AM EDT [facility] Henry cells 1-5 /HPF 07/12/2024 10:31 AM EDT [facility] HJB Present 07/12/2024 10:31 AM EDT [facility] Blood VENOUS BLOOD SPECIMEN / Unknown IP Care Team Draw / Unknown 07/12/2024 8:34 AM EDT 07/12/2024 8:44 AM EDT Elda Gaxiola MD HEMATOLOGY ORDERABLE S [facility] [place] [place] [address] * (ABNORMAL) CBC (with Diff) (07/12/2024 8:34 AM EDT) White Blood Cell 9.66(H) 4.00 - 9.50 x10(3)/mc L 07/12/2024 10:31 AM EDT [facility] Red Blood Cell 2.86(L) 4.00 - 5.21 x10(6)/mc L 07/12/2024 10:31 AM EDT [facility] Hemoglobin 8.6(L) 11.7 - 15.5 g/dL 07/12/2024 10:31 AM [facility] Hematocrit 27.3(L) 35.7 - 45.8 % 07/12/2024 10:[facility] Mean Cell Volume 95.5(H) 82.6 - 94.4 fL 07/12/2024 10:31 AM [facility] Mean Cell Hemoglobin 30.1 27.1 - 32.0 pg 07/12/2024 10:31 AM [facility] Mean Cell Hemoglobin Concentration 31.5(L) 31.7 - 35.0 g/dL 07/12/2024 10:31 [facility] Platelet 324 145 - 357 x10(3)/mc L 07/12/2024 10:31 AM [facility] Mean Platelet Volume 12.8 7.6 - 12.9 fL 07/12/2024 10:31 [facility] RDW Standard Deviation 70.9(H) 37.0 - 46.0 fL 07/12/2024 10:31 AM [facility] RDW coefficient of variation 20.4(H) 11.5 - 14.1 % 07/12/2024 10:31 [facility] NRBC% auto 0.0 % 07/12/2024 10:31 AM [facility] NRBC Absolute <0.01 <0.01 x10(3)/mc L 07/12/2024 10:31 AM [facility] Neutrophil % 55.0 % 07/12/2024 10:31 AM [facility] Comment:This is an appended report. These results have been appended to a previously preliminary verified report. Neutrophil Absolute (ANC) - Automated 5.31 1.70 - 6.10 x10(3)/mc L 07/12/2024 10:31 AM [facility] Comment:This is an appended report. These results have been appended to a previously preliminary verified report. Lymph % 27.4 % 07/12/2024 10:31 AM [facility] Comment:This is an appended report. These results have been appended to a previously preliminary verified report. Lymph Absolute 2.65 0.90 - 3.20 x10(3)/mc L 07/12/2024 10:31 AM [facility] Comment:This is an appended report. These results have been appended to a previously preliminary verified report. Monocyte % 9.0 % 07/12/2024 10:31 AM [facility] Comment:This is an appended report. These results have been appended to a previously preliminary verified report. Monocyte Absolute 0.87 0.30 - 0.90 x10(3)/mc L 07/12/2024 10:31 AM [facility] Comment:This is an appended report. These results have been appended to a previously preliminary verified report. Eos % 7.7 % 07/12/2024 10:31 AM [facility] Comment:This is an appended report. These results have been appended to a previously preliminary verified report. Eos Absolute 0.74(H) 0.00 - 0.40 x10(3)/mc L 07/12/2024 10:31 AM [facility] Comment:This is an appended report. These results have been appended to a previously preliminary verified report. Basophil % 0.4 % 07/12/2024 10:31 AM EDT [facility] Comment:This is an appended report. These results have been appended to a previously preliminary verified report. Baso Absolute 0.04 0.00 - 0.10 x10(3)/mc L 07/12/2024 10:31 AM EDT [facility] Comment:This is an appended report. These results have been appended to a previously preliminary verified report. Immature Gran % 0.5 % 10:31 AM EDT [facility] Comment:This is an appended report. These results have been appended to a previously preliminary verified report. Immature Gran Absolute 0.05(H) 0.00 - 0.04 x10(3)/mc L 07/12/2024 10:31 AM EDT [facility] Comment:This is an appended report. These results have been appended to a previously preliminary verified report. Blood VENOUS BLOOD SPECIMEN / Unknown IP Care Team Draw / Unknown 07/12/2024 8:34 AM EDT 07/12/2024 8:44 AM EDT Elda Gaxiola MD HEMATOLOGY ORDERABLE S [facility] [place] [address] * (ABNORMAL) Comprehensive metabolic panel (07/12/2024 4:10 AM EDT) Glucose 107 65 - 199 mg/dL 07/12/2024 5:20 AM EDT [facility] Comment:Glucose Concentratio n >=200 mg/dL plus symptoms is consistent with Diabetes Mellitus. Blood Urea Nitrogen 23(H) 8 - 18 mg/dL 07/12/2024 5:20 AM EDT [facility] Creatinine 2.16(H) 0.70 - 1.20 mg/dL 07/12/2024 5:20 AM EDT [facility] Sodium 143 135 - 145 mMol/L 07/12/2024 5:20 AM EDT [facility] Potassium 3.2(L) 3.5 - 5.0 mMol/L 07/12/2024 5:20 AM [facility] Chloride 102 98 - 107 mMol/L 07/12/2024 5:20 AM [facility] Carbon Dioxide 28 22 - 31 mMol/L 07/12/2024 5:20 AM [facility] Anion Gap 13 5 - 15 mMol/L 07/12/2024 5:20 AM [facility] Calcium 8.9 8.5 - 10.5 mg/dL 07/12/2024 5:20 AM [facility] Protein, Total 7.1 6.1 - 8.0 g/dL 07/12/2024 5:20 AM [facility] Albumin 2.8(L) 3.2 - 5.2 g/dL 07/12/2024 5:20 AM [facility] Aspartate Aminotransferase 146(H) <=30 unit/L 07/12/2024 5:20 AM [facility] Alanine Aminotransferase 65(H) 0 - 30 unit/L 07/12/2024 5:20 AM [facility] Alkaline Phosphatase 2,359(H) 35 - 105 unit/L 07/12/2024 5:20 AM [facility] Bilirubin, Total 1.2 <=1.3 mg/dL 07/12/2024 5:20 AM [facility] Est Glomerular Filtration Rate - Female 26 mL/min/1. 73 m?? 07/12/2024 5:20 AM [facility] Comment: This patient's estimated GFR [...] Unknown IP Care Team Draw / Unknown 07/12/2024 4:10 AM EDT 07/12/2024 4:36 AM EDT Srikanth Patel MD CHEMISTRY ORDERABLES [facility] [place] [address] * Phosphorus (07/12/2024 4:10 AM EDT) Phosphorus 2.8 2.5 - 4.5 mg/dL 07/12/2024 5:08 AM EDT [facility] Blood VENOUS BLOOD SPECIMEN / Unknown IP Care Team Draw / Unknown 07/12/2024 4:10 AM EDT 07/12/2024 4:36 AM EDT Elda Gaxiola MD CHEMISTRY ORDERABLES [facility] [place] [place] [address] * Vancomycin Level, Random (07/12/2024 4:10 AM EDT) Vancomycin, Random 20.4 mg/L 2023 5:08 AM EDT [facility] Comment:This level is for de termination of the patient's vancomycin giar-pilip-mmg-curve (AUC) value. Contact the inpatient pharmacy for interpretation. Blood VENOUS BLOOD SPECIMEN / Unknown IP Care Team Draw / Unknown 07/12/2024 4:10 AM EDT 07/12/2024 4:36 AM EDT Elda Gaxiola MD CHEMISTRY ORDERABLES [facility] [place] [address] * Vancomycin Level, Random (07/11/2024 9:20 AM EDT) Vancomycin, Random 20.0 mg/L 2023 10:44 AM EDT [facility] Comment:This level is for de termination of the patient's vancomycin xxfy-goczs-kck-curve (AUC) value. Contact the inpatient pharmacy for interpretation. Blood VENOUS BLOOD SPECIMEN / Unknown IP Care Team Draw / Unknown 07/11/2024 9:20 AM EDT 07/11/2024 9:49 AM EDT Elda Gaxiola MD CHEMISTRY ORDERABLES [facility] [place] [address] * (ABNORMAL) Comprehensive metabolic panel (07/11/2024 4:08 AM EDT) Glucose 114 65 - 199 mg/dL 07/11/2024 6:08 AM EDT [facility] Comment:Glucose Concentratio n >=200 mg/dL plus symptoms is consistent with Diabetes Mellitus. Blood Urea Nitrogen 35(H) 8 - 18 mg/dL 07/11/2024 6:08 AM EDT [facility] Creatinine 2.84(H) 0.70 - 1.20 mg/dL 07/11/2024 6:08 AM EDT [facility] Sodium 142 135 - 145 mMol/L 07/11/2024 6:08 AM EDT [facility] Potassium 3.6 3.5 - 5.0 mMol/L 07/11/2024 6:08 AM EDT [facility] Chloride 102 98 - 107 mMol/L 07/11[facility]24 [facility] Carbon Dioxide 25 22 - 31 mMol/L 07/11/2024 6:[facility] Anion Gap 15 5 - 15 mMol/L 07/11/2024 6:08 AM [facility] Calcium 8.9 8.5 - 10.5 mg/dL 07/11/2024 6:08 AM EDT [facility] Protein, Total 7.9 6.1 - 8.0 g/dL 07/11/2024 6:08 AM EDT [facility] Albumin 3.0(L) 3.2 - 5.2 g/dL 07/11/2024 6:08 AM EDT [facility] Aspartate Aminotransferase 145(H) <=30 unit/L 07/11/2024 6:08 AM EDT [facility] Alanine Aminotransferase 67(H) 0 - 30 unit/L 07/11/2024 6:08 AM EDT [facility] Alkaline Phosphatase 2,593(H) 35 - 105 unit/L 07/11/2024 6:08 AM [facility] Bilirubin, Total 1.2 <=1.3 mg/dL 07/11/2024 6:08 AM [facility] Est Glomerular Filtration Rate - Female 18 mL/min/1. 73 m?? 07/11/2024 6:08 AM [facility] Comment: This patient's estimated GFR [...] 4:08 AM EDT 07/11/2024 4:16 AM EDT Srikanth Patel MD CHEMISTRY ORDERABLES [facility] [place] [place] [address] * Phosphorus (07/11/2024 4:08 AM EDT) Phosphorus 2.8 2.5 - 4.5 mg/dL 07/11/2024 5:50 AM EDT [facility] Blood VENOUS BLOOD SPECIMEN / Unknown IP Care Team Draw / Unknown 07/11/2024 4:08 AM EDT 07/11/2024 4:16 AM EDT Elda Gaxiola MD CHEMISTRY ORDERABLES Performing Organization Address [facility] Co de Phone Number [facility] [place] [place] [address] * APTT (07/11/2024 4:08 AM EDT) Partial Thromboplastin Time 28 25 - 37 sec 07/11/2024 4:35 AM EDT [facility] Comment: The PTT is NOT [...] MD HEMATOLOGY ORDERABLE S Performing Organization Address [facility] Co de Phone Number [facility] [place] [place] [address] * (ABNORMAL) Prothrombin Time (07/11/2024 4:08 AM EDT) Prothrombin Time 12.7(H) 9.4 - 12.5 sec 07/11/2024 4:35 AM EDT [facility] International Normalization Ratio 1.1 <=4.9 07/11/2024 4:35 AM EDT [facility] Comment: An INR < 2.0 [...] EDT Elda Gaxiola MD HEMATOLOGY ORDERABLE S [facility] [place] [address] * (ABNORMAL) CBC (with Diff) (07/11/2024 4:08 AM EDT) White Blood Cell 11.57(H) 4.00 - 9.50 x10(3)/mc L 07/11/2024 4:29 AM EDT [facility] Red Blood Cell 2.72(L) 4.00 - 5.21 x10(6)/mc L 07/11/2024 4:29 AM EDT [facility] Hemoglobin 8.2(L) 11.7 - 15.5 g/dL 07/11/2024 4:29 AM EDT [facility] Hematocrit 25.2(L) 35.7 - 45.8 % 07/11/2024 4:29 AM EDT [facility] Mean Cell Volume 92.6 82.6 - 94.4 fL 07/11/2024 4:29 AM [facility] Mean Cell Hemoglobin 30.1 27.1 - 32.0 pg 07/11/2024 4:29 AM EDT [facility] Mean Cell Hemoglobin Concentration 32.5 31.7 - 35.0 g/dL 07/11/2024 4:29 AM T [facility] Platelet 375(H) 145 - 357 x10(3)/mc L 07/11/2024 4:29 AM EDT [facility] Mean Platelet Volume 12.2 7.6 - 12.9 fL 07/[facility]24 [facility] R[facility] Standard Deviation 66.6(H) 37.0 - 46.0 fL 07/11/2024 4:29 AM [facility] RDW coefficient of variation 19.8(H) 11.5 - 14.1 % 07/11/2024 4:29 AM [facility] NRBC% auto 0.0 % 07/11/2024 4:29 AM [facility] NRBC Absolute <0.01 <0.01 x10(3)/mc L 07/11/2024 4:29 AM [facility] Neutrophil % 64.6 % 07/11/2024 4:29 AM [facility] Neutrophil Absolute (ANC) - Automated 7.47(H) 1.70 - 6.10 x10(3)/mc L 07/11/2024 4:29 AM [facility] Lymph % 22.6 % 07/11/2024 4:29 AM [facility] Lymph Absolute 2.62 0.90 - 3.20 x10(3)/mc L 07/11/2024 4:29 AM [facility] [facility] Monocyte % 9.6 % 07/11/2024 4:29 AM [facility] Monocyte Absolute 1.11(H) 0.30 - 0.90 x10(3)/mc L 07/11/2024 4:29 AM [facility] Eos % 2.7 % 07/11/2024 4:29 AM [facility] Eos Absolute 0.31 0.00 - 0.40 x10(3)/mc L 07/11/2024 4:29 AM [facility] Basophil % 0.2 % 07/11/2024 4:29 AM [facility] Baso Absolute <0.04 0.00 - 0.10 x10(3)/mc L 07/11/2024 4:29 AM [facility] Immature Gran % 0.3 % 4:29 AM [facility] Immature Gran Absolute 0.04 0.00 - 0.04 x10(3)/mc L 07/11/2024 4:29 AM EDT [facility] Blood VENOUS BLOOD SPECIMEN / Unknown IP Care Team Draw / Unknown 07/11/2024 4:08 AM EDT 07/11/2024 4:16 AM EDT Srikanth Patel MD HEMATOLOGY ORDERABLE S Performing Organization Address City/[facility]/ZIP Co de Phone Number [facility] [place] [address] * Liver/Kidney Microsome Type 1 Antibody (07/10/2024 9:30 AM EDT) Pathologist [facility] Denise/Kid Mirco1 May <5.0 <=20.0 (Negative) U 07/14/2024 12:47 PM EDT REF [facility] Comment: Blood VENOUS BLOOD SPECIMEN / Unknown IP Care Team Draw / Unknown 07/10/2024 9:30 AM EDT 07/10/2024 9:38 AM EDT Narrative REF LAB [facility] 07/14/2024 12:47 PM EDT Test Performed by: [facility] [address] [place] [address] Chief Of Field Operations: Cindy Payne Ph.D.; CLIA# [id number] Elda Gaxiola MD LAB SEND OUT ORDERAB LES REF LAB [address] * Smooth Muscle Antibody (07/10/2024 9:30 AM EDT) Pathologist [facility] Sm Muscle Ab May Negative Negative 07/12/20 2:33 PM EDT REF [facility] Comment: Negative: No further testing will be performed ADDITIONAL INFORMATION This test was developed and its performance characteristics determined by [facility] in a manner consistent with CLIA requirements. This test has not been cleared or approved by the U.S. Food and Drug Administration. Blood VENOUS BLOOD SPECIMEN / Unknown IP Care Team Draw / Unknown 07/10/2024 9:30 AM EDT 07/10/2024 9:38 AM EDT Narrative REF LAB [facility] - 07/12/2024 2:33 PM EDT Test Performed by: [place] [address] Chief Of Field Operations: Cindy Payne Ph.D.; CLIA# [id number] Elda Gaxiola MD LAB SEND OUT ORDERAB LES Performing Organization Address [facility] de Phone Number REF LAB [address] * Mitochondrial Antibody, M2 (07/10/2024 9:30 AM EDT) Pathologist [facility] [place] Ab May <0.1 <0.1 (Negative) U 07/12/2024 5:50 PM EDT REF [facility] Comment: Blood VENOUS BLOOD SPECIMEN / Unknown IP Care Team Draw / Unknown 07/10/2024 9:30 AM EDT 07/10/2024 9:38 AM EDT Narrative REF LAB [facility] 07/12/2024 5:50 PM EDT Test Performed by: [place] [address] Chief Of Field Operations: Cindy Payne Ph.D.; CLIA# [id number] Elda Gaxiola MD LAB SEND OUT ORDERAB LES Performing Organization Address [facility] de Phone Number REF LAB [address] * (ABNORMAL) Comprehensive metabolic panel (07/10/2024 5:26 AM EDT) Pathologist [facility] Glucose 100 65 - 199 mg/dL 07/10/2024 6:16 AM EDT [facility] Comment:Glucose Concentratio n >=200 mg/dL plus symptoms is consistent with Diabetes Mellitus. Blood Urea Nitrogen 39(H) 8 - 18 mg/dL 07/10/2024 6:16 AM EDT [facility] Creatinine 3.12(H) 0.70 - 1.20 mg/dL 07/10/2024 6:16 AM [facility] Sodium 142 135 - 145 mMol/L 07/10/2024 6:16 AM [facility] Potassium 3.7 3.5 - 5.0 mMol/L 07/10/2024 6:16 AM [facility] Chloride 102 98 - 107 mMol/L 07/10/2024 6:16 AM [facility] Carbon Dioxide 25 22 - 31 mMol/L 07/10/2024 6:16 AM [facility] Anion Gap 15 5 - 15 mMol/L 07/10/2024 6:16 AM [facility] Calcium 9.0 8.5 - 10.5 mg/dL 07/10/2024 6:16 AM [facility] Protein, Total 7.5 6.1 - 8.0 g/dL 07/10/2024 6:16 AM [facility] Albumin 3.2 3.2 - 5.2 g/dL 07/10/2024 6:16 AM [facility] Aspartate Aminotransferase 124(H) <=30 unit/L 07/10/2024 6:16 AM [facility] Alanine Aminotransferase 58(H) 0 - 30 unit/L 07/10/2024 6:16 AM [facility] Alkaline Phosphatase 2,487(H) 35 - 105 unit/L 07/10/2024 6:16 AM [facility] Bilirubin, Total 1.2 <=1.3 mg/dL 07/10/2024 6:16 AM [facility] Est Glomerular Filtration Rate - Female 16 mL/min/1. 73 m?? 07/10/2024 6:16 AM [facility] Comment: This patient's estimated GFR [...] IP Care Team Draw / Unknown 07/10/2024 5:26 AM EDT 07/10/2024 5:31 AM EDT Srikanth Patel MD CHEMISTRY ORDERABLES [facility] [place] [address] * (ABNORMAL) CBC (with Diff) (07/10/2024 5:26 AM EDT) White Blood Cell 10.15(H) 4.00 - 9.50 x10(3)/mc L 07/10/2024 5:37 AM EDT [facility] Red Blood Cell 2.66(L) 4.00 - 5.21 x10(6)/mc L 07/10/2024 5:37 AM T [facility] Hemoglobin 8.1(L) 11.7 - 15.5 g/dL 07/10/2024 5:37 AM [facility] Hematocrit 24.5(L) 35.7 - 45.8 % 07/10/2024 5:37 AM [facility] Mean Cell Volume 92.1 82.6 - 94.4 fL 07/10/2024 5:37 AM [facility] Mean Cell Hemoglobin 30.5 27.1 - 32.0 pg 07/10/2024 5:37 AM [facility] Mean Cell Hemoglobin Concentration 33.1 31.7 - 35.0 g/dL 07/10/2024 5:37 AM [facility] Platelet 412(H) 145 - 357 x10(3)/mc L 07/10/2024 5:37 AM [facility] Mean Platelet Volume 11.9 7.6 - 12.9 fL 07/10/2024 5:37 AM [facility] RDW Standard Deviation 66.4(H) 37.0 - 46.0 fL 07/10/2024 5:37 AM [facility] RDW coefficient of variation 19.6(H) 11.5 - 14.1 % 07/10/2024 5:37 AM [facility] NRBC% auto 0.0 % 07/10/2024 5:37 AM [facility] NRBC Absolute <0.01 <0.01 x10(3)/mc L 07/10/2024 5:37 AM [facility] Neutrophil % 61.7 % 07/10/2024 5:37 AM [facility] Neutrophil Absolute (ANC) - Automated 6.26(H) 1.70 - 6.10 x10(3)/mc L 07/10/2024 5:37 AM [facility] Lymph % 25.7 % 07/10/2024 5:37 AM [facility] Lymph Absolute 2.61 0.90 - 3.20 x10(3)/mc L 07/10/2024 5:37 AM [facility] Monocyte % 10.7 % 07/10/2024 5:37 AM [facility] Monocyte Absolute 1.09(H) 0.30 - 0.90 x10(3)/mc L 07/10/2024 5:37 AM [facility] Eos % 1.3 % 07/10/2024 5:37 AM [facility] Eos Absolute 0.13 0.00 - 0.40 x10(3)/mc L 07/10/2024 5:37 AM [facility] Basophil % 0.3 % 07/10/2024 5:37 AM [facility] Baso Absolute <0.04 0.00 - 0.10 x10(3)/mc L 07/10/2024 5:37 AM EDT [facility] Immature Gran % 0.3 % 5:37 AM EDT [facility] Immature Gran Absolute <0.04 0.00 - 0.04 x10(3)/mc L 07/10/2024 5:37 AM EDT [facility] Blood VENOUS BLOOD SPECIMEN / Unknown IP Care Team Draw / Unknown 07/10/2024 5:26 AM EDT 07/10/2024 5:31 AM EDT Srikanth Patel MD HEMATOLOGY ORDERABLE S Performing Organization Address City/[facility]/ZIP Co de Phone Number [facility] [place] [address] * Phosphorus (07/10/2024 2:15 AM EDT) Phosphorus 3.7 2.5 - 4.5 mg/dL 07/10/2024 2:49 AM EDT [facility] Blood VENOUS BLOOD SPECIMEN / Unknown IP Care Team Draw / Unknown 07/10/2024 2:15 AM EDT 07/10/2024 2:21 AM EDT Elda Gaxiola MD CHEMISTRY ORDERABLES Performing Organization Address City/[facility]/ZIP Co de Phone Number [facility] [place] [address] * MRI Cholangiopancreatography WO Contrast (07/09/2024 10:28 PM EDT) WORKSTATION ID [id number] RAD Anatomical Region Laterality Modality Magnetic [...] who have questions please contact the health primary care coordinator that requested your imaging first. ? Narrative 07/10/2024 6:36 AM EDT EXAMINATION: MRI [...] patients who have questions please contactthe health primary care coordinator that requested your imaging first. Elda Gaxiola MD IM MRI ORDERABLES * (ABNORMAL) Basic Metabolic Panel (07/09/2024 4:10 PM EDT) Glucose 61(L) 65 - 199 mg/dL 07/09/2024 4:48 PM EDT [facility] Comment:Glucose Concentratio n >=200 mg/dL plus symptoms is consistent with Diabetes Mellitus. Blood Urea Nitrogen 39(H) 8 - 18 mg/dL 07/09/2024 4:48 PM EDT [facility] Creatinine 3.37(H) 0.70 - 1.20 mg/dL 07/09/2024 4:48 PM EDT [facility] Sodium 142 135 - 145 mMol/L 07/09/2024 4:48 PM EDT [facility] Potassium 3.7 3.5 - 5.0 mMol/L 07/09/2024 4:48 PM EDT [facility] Chloride 100 98 - 107 mMol/L 07/09/2024 4:48 PM EDT [facility] Carbon Dioxide 23 22 - 31 mMol/L 07/09/2024 4:48 PM EDT [facility] Anion Gap 19(H) 5 - 15 mMol/L 07/09/2024 4:48 PM EDT [facility] Calcium 9.6 8.5 - 10.5 mg/dL 07/09/2024 4:48 PM EDT [facility] Est Glomerular Filtration Rate - Female 15 mL/min/1. 73 m?? 07/09/2024 4:48 PM EDT [facility] Comment: This patient's estimated GFR [...] PM EDT Elda Gaxiola MD CHEMISTRY ORDERABLES [facility] [place] [place] [address] * US Abdomen Limited (07/09/2024 11:16 AM EDT) WORKSTATION ID [id number] RAD Anatomical Region Laterality Modality Abdomen Ultrasound [...] resident's interpretation and agree with the findings, David Alvarado MD at 07/09/2024 11:45 AM Thank you for letting us participate in the care of this patient. If you are a health care provider and have any questions regarding this report, please contact the number above. For patients who have questions, please contact the health primary care coordinator that requested your imaging first. ? David Alvarado, Staff Physician Electronically Signed Final Report ?? 07/09/2024 11:53 am Narrative 07/09/2024 11:53 AM EDT Abdominal ? (Signed Final 07/09/2024 11:53 am) PATIENT INFO: ID #: ? [id number] ?: ??[birth year] (58 yrs)(F) Name: ? OKSANA BETANCOURT ? Visit Date: 07/09/2024 11:13 am PERFORMED BY: Attending: ?Jenny TINSLEY, David Blake Resident: ? Cornelius TINSLEY, Wilmar Kovacs Performed By: ? Axel QUINTANILLACT, Breanne Mclean Referred By: ?ELDA GAXIOLA Location: ? [place] SERVICE(S) PROVIDED: UABDLIM - Abdominal Limited Survey Single ? [id number] Organ or Quadrant - [id number] INDICATIONS: transaminitis and ruq pain eval for [...] Normal in caliber where visualized. Procedure Note David Alvarado MD - 07/09/2024 Abdominal (Signed Final 07/09/2024 11:53 am) PATIENT INFO: ID #: [id number] : 61 (58 yrs)(F) Name: OKSANA BETANCOURT Visit Date: 07/09/2024 11:13 am PERFORMED BY: Attending: David Alvarado MD Resident: Wilmar Shields MD Performed By: Breanne Reyna RDMS Referred By: ELDA GAXIOLA Location: [place] SERVICE(S) PROVIDED: UABDLIM - Abdominal Limited Survey Single [id number] Organ or Quadrant - [id number] INDICATIONS: transaminitis and ruq pain eval for [...] resident's interpretation and agree with the findings, David Alvarado MD at 07/09/2024 11:45 AM Thank you for letting us participate in the care of this patient. If you are a health care provider and have any questions regarding this report, please contact the number above. For patients who have questions, please contact the health primary care coordinator that requested your imaging first. David Alvarado, Staff Physician Electronically Signed Final Report 07/09/2024 11:53 am Elda Gaxiola MD IMG US GEN ORDERABLE S * US Retroperitoneal Complete (07/09/2024 10:53 AM EDT) WORKSTATION ID [id number] RAD Anatomical Region Laterality Modality Abdomen Ultrasound 07/09/2024 10:5 1 AM EDT Impressions 07/09/2024 11:17 AM EDT 1. ??Slightly limited exam with no evidence of hydronephrosis or nephrolithiasis. 2. ??Stable mild right renal atrophy. I have personally reviewed the image(s) and the resident's interpretation and agree with the findings, David Alvarado MD at 07/09/2024 11:07 AM Thank you for letting us participate in the care of this patient. If you are a health care provider and have any questions regarding this report, please contact the number above. For patients who have questions, please contact the health primary care coordinator that requested your imaging first. ? David Alvarado, Staff Physician Electronically Signed Final Report ?? 07/09/2024 11:16 am Narrative 07/09/2024 11:17 AM EDT Renal ? (Signed Final 07/09/2024 11:16 am) PATIENT INFO: ID #: ? [id number] ?: ??[birth year] (58 yrs)(F) Name: ? OKSANA BETANCOURT ? Visit Date: 07/09/2024 10:51 am PERFORMED BY: Attending: ?Jenny TINSLEY, David Blake Resident: ? Wilmar Shields MD Performed By: ? Breanne Reyna RDMS Referred By: ?ELDA GAXIOLA Location: ? [place] SERVICE(S) PROVIDED: URETRO - Retroperitoneal Complete - [id number] ? [id number] INDICATIONS: new jonathan, assess for obstruction COMPARISON: [...] Comment: ?Partially distended, normal contour. Procedure Note David Alvarado MD - 07/09/2024 Renal (Signed Final 07/09/2024 11:16 am) PATIENT INFO: ID #: [id number] : 61 (58 yrs)(F) Name: OKSANA BETANCOURT Visit Date: 07/09/2024 10:51 am PERFORMED BY: Attending: David Alvarado MD Resident: Wilmar Shields MD Performed By: Breanne Reyna RDMS Referred By: ELDA GAXIOLA Location: [place] SERVICE(S) PROVIDED: URETRO - Retroperitoneal Complete - [id number] INDICATIONS: new jonathan, assess for obstruction COMPARISON: CT -24 RIGHT KIDNEY: Size (cm) L: 5.9 Cortical [...] resident's interpretation and agree with the findings, David Alvarado MD at 07/09/2024 11:07 AM Thank you for letting us participate in the care of this patient. If you are a health care provider and have any questions regarding this report, please contact the number above. For patients who have questions, please contact the health primary care coordinator that requested your imaging first. David Alvarado, Staff Physician Electronically Signed Final Report 07/09/2024 11:16 am Elda Gaxiola MD IMG US GEN ORDERABLE S * (ABNORMAL) Urine culture (07/09/2024 9:25 AM EDT) Urine Culture Greater than 100,000 cfu/ml Enterococcus faecium(A) VITEK 2 METHOD 07/11/2024 6:26 AM EDT [facility] Urine URINE SPECIMEN OBTAINED BY [...] ug/ml: Susceptible Elda Gaxiola MD MICROBIOLOGY - [facility] AL ORDERABLES [facility] [place] [address] * (ABNORMAL) Urinalysis Microscopic Reflex to Culture (07/09/2024 9:25 AM EDT) Bacteria, Urine Many(A) None /HPF 10:56 AM EDT [facility] RBC, Urine 0 0 - 4 /HPF 07/09/2024 10:56 AM EDT [facility] WBC, Urine 41(H) 0 - 5 /HPF 07/09/2024 10:56 AM EDT [facility] Squamous Epithelial Cells, Urine 1 0 - 5 /HPF 07/09/2024 10:56 AM EDT [facility] Hyaline Casts, Urine 1 0 - 2 /LPF 07/09/2024 10:56 AM EDT [facility] Granular Casts, Urine 2(H) <=0 /LPF 07/09/2024 10:56 AM EDT [facility] Comment 07/09/2024 10:56 AM EDT [facility] Comment:Interpret results wi th caution, microscopic results are from a suboptimal specimen. CULTURE ADDED? 07/09/2024 10:56 AM EDT [facility] Comment:Yes Urine URINE SPECIMEN OBTAINED BY CLEAN CATCH PROCEDURE / Unknown Non Blood Collection / Unknown 07/09/2024 9:25 AM EDT 07/09/2024 10:04 AM EDT Elda Gaxiola MD URINE ORDERABLES Performing Organization Address City/[facility]/ZIP Co de Phone Number [facility] [place] [address] * Urinalysis Microscopic with Reflex to Culture (07/09/2024 9:25 AM EDT) CULTURE ADDED? 07/09/2024 10:56 AM EDT [facility] Urine URINE SPECIMEN OBTAINED BY CLEAN CATCH PROCEDURE / Unknown Non Blood Collection / Unknown 07/09/2024 9:25 AM EDT 07/09/2024 10:04 AM EDT Elda Gaxiola MD URINE ORDERABLES [facility] [place] [address] * Urea nitrogen, urine, random (07/09/2024 9:25 AM EDT) Urea Nitrogen, Urine 661 mg/dL 07/09/2024 11:01 AM EDT [facility] Urine URINE SPECIMEN / Unknown Non Blood Collection / Unknown 07/09/2024 9:25 AM EDT 07/09/2024 10:04 AM EDT Elda Gaxiola MD URINE ORDERABLES Performing Organization Address City/[facility]/ZIP Co de Phone Number [facility] [place] [address] * Creatinine, urine, random (07/09/2024 9:25 AM EDT) Creatinine, Urine 168 mg/dL 07/09/2024 11:01 AM EDT [facility] Urine URINE SPECIMEN / Unknown Non Blood Collection / Unknown 07/09/2024 9:25 AM EDT 07/09/2024 10:04 AM EDT Elda Gaxiola MD URINE ORDERABLES Performing Organization Address City/[facility]/ZIP Co de Phone Number [facility] [place] [address] * (ABNORMAL) Urinalysis with reflex Culture (07/09/2024 9:25 AM EDT) Glucose, Urine Dipstick Negative Negative 07/09/2024 10:56 AM EDT [facility] Protein, Urine Dipstick 100 mg/dL(A) Negative 07/09/2024 10:56 AM EDT [facility] Bilirubin, Urine Dipstick Negative Negative 07/09/2024 10:56 AM EDT [facility] Comment:Clinical correlation required for positive Urine Bilirubin results as false positive may occur with some drugs and drug related products. If a false positive is suspected a serum total bilirubin should be considered if clinically indicated. Urobilinogen, Urine Dipstick Normal Normal, 0.2 mg/dL, 1.0 mg/dL 07/09/2024 10:56 AM [facility] pH, Urine (dipstick) 5.5 5.0 - 8.0 07/09/2024 10:56 AM [facility] Blood, Urine Dipstick Trace(A) Negative 07/09/2024 10:56 AM [facility] Ketone, Urine Dipstick Trace(A) Negative 07/09/2024 10:56 AM [facility] Nitrite, Urine Dipstick Negative Negative 07/09/2024 10:56 AM [facility] Leukocytes, Urine Dipstick Small(A) Negative 07/09/2024 10:56 AM [facility] Specific Britt Urine Automated 1.019 1.005 - 1.030 07/09/2024 10:56 AM [facility] Appearance, Urine Dipstick Clear Clear 07/09/2024 10:56 AM [facility] Color, Urine Dipstick Dark Yellow Yellow, Dark Yellow 07/09/2024 10:56 AM [facility] CULTURE ADDED? 07/09/2024 10:56 AM [facility] Comment:Yes Urine URINE SPECIMEN OBTAINED BY CLEAN CATCH PROCEDURE / Unknown Non Blood Collection / Unknown 07/09/2024 9:25 AM EDT 07/09/2024 10:04 AM EDT Elda Gaxiola MD URINE ORDERABLES [facility] [place] [address] * (ABNORMAL) Gamma GT (07/09/2024 5:02 AM EDT) Gamma Glutamyl Transferase 2,038(H) 5 - 36 unit/L 07/09/2024 5:59 AM EDT [facility] Blood VENOUS BLOOD SPECIMEN / Unknown IP Care Team Draw / Unknown 07/09/2024 5:02 AM EDT 07/09/2024 5:14 AM EDT Srikanth Patel MD CHEMISTRY ORDERABLES [facility] [place] [address] * (ABNORMAL) Comprehensive metabolic panel (07/09/2024 5:02 AM EDT) Glucose 72 65 - 199 mg/dL 07/09/2024 5:59 AM EDT [facility] Comment:Glucose Concentratio n >=200 mg/dL plus symptoms is consistent with Diabetes Mellitus. Blood Urea Nitrogen 37(H) 8 - 18 mg/dL 07/09/2024 5:59 AM EDT [facility] Creatinine 4.07(H) 0.70 - 1.20 mg/dL 07/09/2024 5:59 AM EDT [facility] Sodium 142 135 - 145 mMol/L 07/09/2024 5:59 AM EDT [facility] Potassium 3.8 3.5 - 5.0 mMol/L 07/09/2024 5:59 AM EDT [facility] Chloride 103 98 - 107 mMol/L 07/09/2024 5:59 AM EDT [facility] Carbon Dioxide 23 22 - 31 mMol/L 07/09/2024 5:59 AM EDT [facility] Anion Gap 16(H) 5 - 15 mMol/L 07/09/2024 5:59 AM EDT [facility] Calcium 9.2 8.5 - 10.5 mg/dL 07/09/2024 5:59 AM EDT [facility] Protein, Total 7.6 6.1 - 8.0 g/dL 07/09/2024 5:59 AM EDT [facility] Albumin 3.1(L) 3.2 - 5.2 g/dL 07/09/2024 5:59 AM EDT [facility] Aspartate Aminotransferase 124(H) <=30 unit/L 07/09/2024 5:59 AM EDT [facility] Alanine Aminotransferase 61(H) 0 - 30 unit/L 07/09/2024 5:59 AM EDT [facility] Alkaline Phosphatase 2,558(H) 35 - 105 unit/L 07/09/2024 5:59 AM EDT [facility] Bilirubin, Total 1.2 <=1.3 mg/dL 07/09/2024 5:59 AM EDT [facility] Est Glomerular Filtration Rate - Female 12 mL/min/1. 73 m?? 07/09/2024 5:59 AM EDT [facility] Comment: This patient's estimated GFR [...] AM EDT Srikanth Patel MD CHEMISTRY ORDERABLES [facility] [place] [address] * (ABNORMAL) CBC (with Diff) (07/09/2024 5:02 AM EDT) White Blood Cell 9.89(H) 4.00 - 9.50 x10(3)/mc L 07/09/2024 5:22 AM EDT [facility] Red Blood Cell 2.62(L) 4.00 - 5.21 x10(6)/mc L 07/09/2024 5:22 AM [facility] Hemoglobin 8.0(L) 11.7 - 15.5 g/dL 07/09/2024 5:22 AM [facility] Hematocrit 24.8(L) 35.7 - 45.8 % 07/09/2024 5:22 AM [facility] Mean Cell Volume 94.7(H) 82.6 - 94.4 fL 07/09/2024 5:22 AM [facility] Mean Cell Hemoglobin 30.5 27.1 - 32.0 pg 07/09/2024 5:22 AM [facility] Mean Cell Hemoglobin Concentration 32.3 31.7 - 35.0 g/dL 07/09/2024 5:22 AM [facility] Platelet 441(H) 145 - 357 x10(3)/mc L 07/09/2024 5:22 AM [facility] Mean Platelet Volume 11.9 7.6 - 12.9 fL 07/09/2024 5:22 AM [facility] RDW Standard Deviation 68.9(H) 37.0 - 46.0 fL 07/09/2024 5:22 AM [facility] RDW coefficient of variation 20.2(H) 11.5 - 14.1 % 07/09/2024 5:22 AM [facility] NRBC% auto 0.0 % 07/09/2024 5:22 AM [facility] NRBC Absolute <0.01 <0.01 x10(3)/mc L 07/09/2024 5:22 AM [facility] Neutrophil % 54.2 % 07/09/2024 5:22 AM [facility] Neutrophil Absolute (ANC) - Automated 5.36 1.70 - 6.10 x10(3)/mc L 07/09/2024 5:22 AM [facility] Lymph % 33.9 % 07/09/2024 5:22 AM [facility] Lymph Absolute 3.35(H) 0.90 - 3.20 x10(3)/mc L 07/09/2024 5:22 AM [facility] Monocyte % 10.7 % 07/09/2024 5:22 AM [facility] Monocyte Absolute 1.06(H) 0.30 - 0.90 x10(3)/mc L 07/09/2024 5:22 AM [facility]T [facility] Eos % 0.6 % 07/09/2024 5:22 AM [facility] Eos Absolute 0.06 0.00 - 0.40 x10(3)/mc L 07/09/2024 5:22 AM [facility]T [facility] Basophil % 0.3 % 07/09/2024 5:22 AM [facility] Baso Absolute <0.04 0.00 - 0.10 x10(3)/mc L 07/09/2024 5:22 AM [facility] Immature Gran % 0.3 % 5:22 AM [facility] [facility] Immature Gran Absolute <0.04 0.00 - 0.04 x10(3)/mc L 07/09/2024 5:22 AM EDT [facility] Blood VENOUS BLOOD SPECIMEN / Unknown IP Care Team Draw / Unknown 07/09/2024 5:02 AM EDT 07/09/2024 5:14 AM EDT Srikanth Patel MD HEMATOLOGY ORDERABLE S [facility] [place] [address] documented in this encounter Visit Diagnoses Diagnosis Abdominal pain- Primary Abdominal pain, unspecified site JONATHAN (acute kidney injury) Acute kidney failure, unspecified Malignant neoplasm of upper-outer quadrant of left breast in female, estrogen receptor negative Cardiomyopathy, ischemic Other specified forms of chronic ischemic heart disease Elevated alkaline phosphatase level Other nonspecific abnormal serum enzyme levels Bilious vomiting with nausea Right upper quadrant abdominal pain Abdominal pain, right upper quadrant Cardiomyopathy, ischemic Other specified forms of chronic ischemic heart disease PAF (paroxysmal atrial fibrillation) Atrial fibrillation Bilious vomiting with nausea ASCVD (arteriosclerotic cardiovascular disease) Unspecified cardiovascular disease Nonrheumatic aortic valve stenosis Aortic valve disorders Gastroesophageal reflux Esophageal reflux Hypothyroidism Unspecified hypothyroidism Elevated alkaline phosphatase level Other nonspecific abnormal serum enzyme levels JONATHAN (acute kidney injury) Acute kidney failure, unspecified Severe protein-calorie malnutrition Other severe protein-calorie malnutrition Malignant neoplasm of upper-outer quadrant of left breast in female, estrogen receptor negative documented in this encounter Admitting Diagnoses Diagnosis Abdominal pain Abdominal pain, unspecified site documented in this encounter Administered Medications Inactive Administered Medications - up to 3 most recent administrations Medication Order MAR Action Action Date Dose Rate Site acetaminophen (Tylenol) tablet 650 mg 650 mg, Oral, EVERY 6 HOURS PRN, Starting on Tue07/09/24 at 0235, Until Tue07/16/24 at 1733, Pain, Mild pain (1-3), May give together with or in place of other agent(s) ordered for pain (1-10) at patient request. Maximum dose of acetaminophen is 4,000 mg from all sources in 24 hours. , Routine apixaban (Eliquis) tablet 5 mg 5 mg, Oral, 2 TIMES DAILY, First dose on Tue07/12/24 at 0900, Until Discontinued, Anticoagulant, Routine, apixaban (Eliquis) Indication: Non-Valvular Atrial Fibrillation Given 07/16/2024 8:52 AM EDT 5 mg Given 07/15/2024 9:04 PM EDT 5 mg Given 07/15/2024 9:06 AM EDT 5 mg atorvastatin (Lipitor) tablet 80 mg 80 mg, Oral, DAILY AT NOON, First dose on Tue07/09/24 at 1200, Until Discontinued, Routine Given 07/16/2024 12: 10 PM EDT 80 mg Given 07/15/2024 12:42 PM EDT 80 mg Given 07/14/2024 11:39 AM EDT 80 mg baclofen (Lioresal) tablet 5 mg 5 mg, Oral, 2 TIMES DAILY, First dose (after last modification) on Tue07/09/24 at 0300, Until Discontinued, Routine Given 07/16/2024 8:52 AM EDT 5 mg Given 07/15/2024 9:03 PM EDT 5 mg Given 07/15/2024 9:06 AM EDT 5 mg bisacodyL (Dulcolax) suppository 10 mg 10 mg, Rectal, DAILY PRN, Starting on Tue07/10/24 at 1026, Until Tue07/16/24 at 1733, Constipation, Routine Given 07/10/2024 3:23 PM EDT 10 mg clopidogreL (Plavix) tablet 75 mg 75 mg, Oral, DAILY, First dose on Tue07/09/24 at 0900, Until Discontinued, Routine Given 07/16/2024 8:52 AM EDT 75 mg Given 07/15/2024 9:06 AM EDT 75 mg Given 07/14/2024 8:23 AM EDT 75 mg heparin (pf) (porcine) (100 units/mL) flush 5 mL syringe 500 Units 500 Units (5 mL), Intravenous, DAILY PRN, 1 dose, Starting on Tue07/16/24 at 1435, Until Tue07/16/24 at 1733, Line Care, Terminal Flush for de-accessing of Implantable Port, Routine ipratropium-albuteroL (Duoneb) 0.5 mg-3 mg(2.5 mg base)/3 mL nebulizer solution 3 mL 3 mL, Nebulization, EVERY 4 HOURS PRN, Starting on Tue07/12/24 at 1012, Until Tue07/16/24 at 1733, Wheezing, Routine Given 07/12/2024 12:25 PM EDT 3 mLs lactated ringers infusion 100 mL/hr, Intravenous, CONTINUOUS, Starting on Tue07/09/24 at 0300, Until Tue07/09/24 at 1259 New Bag 07/09/2024 3:34 AM EDT 100 mL/hr 100 mL/hr lactated ringers infusion 125 mL/hr, Intravenous, CONTINUOUS, Starting on Tue07/11/24 at 1045, Until [place] 07/12/24 at 1044 New Bag 07/11/2024 12:07 PM EDT 125 mL/hr 125 mL/hr lactated ringers infusion 100 mL/hr, Intravenous, CONTINUOUS, Starting on Tue07/11/24 at 1445, Until Tue07/11/24 at 1647, Endoscopy (Day of Procedure) Restarted 07/11/2024 3:40 PM EDT New Bag 07/11/2024 2:56 PM EDT 100 mL/hr 100 mL/hr lamoTRIgine (LaMICtal) tablet 100 mg 100 mg, Oral, 2 TIMES DAILY, First dose on Tue07/09/24 at 0900, Until Discontinued, Routine Given 07/16/2024 8:52 AM EDT 100 mg Given 07/15/2024 9:04 PM EDT 100 mg Given 07/15/2024 9:06 AM EDT 100 mg levothyroxine (Synthroid) tablet 100 mcg 100 mcg, Oral, EVERY MORNING, First dose on Tue07/09/24 at 0600, Until Discontinued, Routine Given 07/16/2024 6:33 AM EDT 100 mcg Given 07/15/2024 4:48 AM EDT 100 mcg Given 07/14/2024 6:12 AM EDT 100 mcg Liposomal Lidocaine (LMX) 4 % cream Topical (Top), ONCE, On [place] 07/12/24 at 1100, 1 dose, Rub a small amount of LMX4 cream into site for 30 seconds. Apply a thick second layer of LMX4 cream to site and cover with occlusive dressing. Remove product after 30 minutes. Total application time should not exceed 60 minutes. Given 07/12/2024 11:00 AM EDT LORazepam (Ativan) tablet 0.5 mg 0.5 mg, Oral, ONCE, 1 dose, On Tue07/11/24 at 1045, Routine Given 07/11/2024 11:25 AM EDT 0.5 mg magnesium citrate oral liquid 296 mL 296 mL, Oral, DAILY PRN, Starting on Tue07/15/24 at 1251, Until Tue07/16/24 at 1733, Constipation, Routine Given 07/15/2024 5:13 PM EDT 296 mLs magnesium hydroxide (Milk of Magnesia) (80mg/mL) oral liquid 2,400 mg 2,400 mg, Oral, DAILY PRN, Starting on Tue07/10/24 at 1653, Until Tue07/16/24 at 1733, Constipation, 30 mL regular (400 mg/5 mL) = 10 mL concentrate (2400 mg/10 mL), Routine Given 07/15/2024 10:47 AM EDT 2,400 mg Given 07/13/2024 5:19 AM EDT 2,400 mg Given 07/10/2024 5:37 PM EDT 2,400 mg melatonin tablet 3 mg 3 mg, Oral, NIGHTLY PRN, Starting on Tue07/09/24 at 0248, Until Tue07/16/24 at 1733, Sleep, Sleep, Routine Given 07/11/2024 8:10 PM EDT 3 mg metoprolol succinate XL (Toprol-XL) tablet 50 mg 50 mg, Oral, 2 TIMES DAILY, First dose on Tue07/09/24 at 0900, Until Discontinued, DO NOT CRUSH OR OPEN, Routine Given 07/16/2024 8:52 AM EDT 50 mg Given 07/15/2024 9:03 PM EDT 50 mg Given 07/15/2024 9:06 AM EDT 50 mg multivitamin with minerals (Thera M) tablet 1 tablet 1 tablet, Oral, DAILY, First dose on Tue07/10/24 at 1200, Until Discontinued, Routine Given 07/16/2024 8:52 AM EDT 1 tablet Given 07/15/2024 9:06 AM EDT 1 tablet Given 07/14/2024 8:23 AM EDT 1 tablet naloxone (Narcan) (0.4 mg/mL) injection 0.2 mg 0.2 mg, Intravenous, EVERY 1 MIN PRN, Starting on Tue07/09/24 at 0233, Until Tue07/16/24 at 1733, Opioid Reversal, May repeat 0.2 mg every 1 minute until patient is responsive or vital signs improve. DO NOT exceed 2 mg total dose. At [facility] or [facility], call provider if naloxone administered. At [facility], If ineffective, call HERT team [phone]. At [facility], page rapid response team., Routine ondansetron (pf) (Zofran) (2 mg/mL) injection 4 mg 4 mg, Intravenous, EVERY 8 HOURS PRN, Starting on Tue07/10/24 at 1100, Until Tue07/16/24 at 1733, Nausea Given 07/15/2024 5:35 PM EDT 4 mg Given 07/15/2024 9:26 AM EDT 4 mg Given 07/13/2024 2:13 PM EDT 4 mg oxyCODONE (Roxicodone) tablet 10 mg 10 mg, Oral, EVERY 4 HOURS PRN, Starting on Tue07/09/24 at 0233, Until Tue07/16/24 at 1733, Pain, severe pain (7-10), If multiple routes of administration ordered, oral route first line., Routine Given 07/16/2024 12:10 PM EDT 10 mg Given 07/15/2024 7:57 PM EDT 10 mg Given 07/15/2024 4:47 AM EDT 10 mg oxyCODONE (Roxicodone) tablet 5 mg 5 mg, Oral, EVERY 4 HOURS PRN, Starting on Tue07/09/24 at 0233, Until Tue07/16/24 at 1733, Pain, moderate pain (4-6), For adults, may give in place of other agent(s) ordered for pain (7-10) at patient request. If multiple routes of administration ordered, oral route first line., Routine Given 07/16/2024 4:26 AM EDT 5 mg Given 07/15/2024 12:45 PM EDT 5 mg Given 07/10/2024 1:51 AM EDT 5 mg oxyCODONE (Roxicodone) tablet 5 mg 5 mg, Oral, EVERY 4 HOURS PRN, Starting on Tue07/09/24 at 0233, Until Tue07/16/24 at 1733, Pain, Breakthrough pain rescue dose, For moderate or severe pain (4-10) unrelieved at least 60 minutes after initial PRN dose was administered Max 3 doses/24 hours. If pain still unrelieved after 3rd rescue dose within 24 hours, contact provider. If multiple routes of administration ordered, oral route first line., Routine Given 07/09/2024 5:51 PM EDT 5 mg pantoprazole EC (Protonix) tablet 40 mg 40 mg, Oral, DAILY, First dose on Tue07/09/24 at 0900, Until Discontinued Given 07/16/2024 8:52 AM EDT 40 mg Given 07/15/2024 9:06 AM EDT 40 mg Given 07/14/2024 8:23 AM EDT 40 mg piperacillin-tazobactam (Zosyn) 3.375 g vial attach to sodium chloride 0.9% 50 mL Mini-Bag Plus 3.375 g, Intravenous, EVERY 8 HOURS, First dose on Tue07/09/24 at 1330, Until Discontinued, Administer over 4 Hours, Warning Vesicant/Irritant Medication Per correctional facility nurse labeling, do not administer or Y-site with lactated ringers., Indication for (Active or Suspected): Urinary Tract/Pyelonephritis New Bag 07/10/2024 1:02 PM EDT 3.375 g 12.5 mL/hr New Bag 07/10/2024 5:28 AM EDT 3.375 g 12.5 mL/hr New Bag 07/09/2024 10:44 PM EDT 3.375 g 12.5 mL/hr polyethylene glycoL (Miralax) packet 17 g 17 g, Oral, DAILY, First dose on Tue07/09/24 at 1315, Until Discontinued, Routine Given 07/15/2024 9:06 AM EDT 17 g Given 07/14/2024 9:00 AM EDT 17 g Given 07/10/2024 1:02 PM EDT 17 g potassium chloride ER (Klor-Con M) crystal tablet 40 mEq 40 mEq, Oral, ONCE, 1 dose, On [place] 07/12/24 at 0815, potassium chloride ER particle/crystal tablets (Klor-Con M) may be broken in half and each half swallowed separately. Tablets can be dissolved in ~4 ounces of water; allow ~2 minutes to dissolve, stir well and drink immediately. Do not crush, chew, or suck on tablet., Routine Given 07/12/2024 8:46 AM EDT 40 mEq QUEtiapine (Seroquel) tablet 150 mg 150 mg, Oral, NIGHTLY, First dose on Tue07/09/24 at 2100, Until Discontinued, Routine Given 07/15/2024 9:0 3 PM EDT 150 mg Given 07/14/2024 8:07 PM EDT 150 mg Given 07/13/2024 8:33 PM EDT 150 mg senna-docusate (Pericolace) 8.6-50 mg per tablet 2 tablet 2 tablet, Oral, 2 TIMES DAILY, First dose on Tue07/09/24 at 1315, Until Discontinued, Routine Given 07/16/2024 8:52 AM EDT 2 tablets Given 07/15/2024 9:04 PM EDT 2 tablets Given 07/15/2024 9:06 AM EDT 2 tablets sodium chloride 0.9 % (flush) (BD PosiFlush Normal Saline 0.9) flush 5 mL 5 mL, Intravenous, 2 TIMES DAILY, First dose on Tue07/09/24 at 0900, Until Discontinued, Routine Given 07/16/2024 8:53 AM EDT 5 mLs Given 07/15/2024 9:04 PM EDT 5 mLs Given 07/15/2024 9:07 AM EDT 5 mLs torsemide (Demadex) tablet 20 mg 20 mg, Oral, DAILY, First dose on Tue07/09/24 at 0900, Until Discontinued, Routine Given 07/13/2024 8:25 AM EDT 20 mg Given 07/12/2024 8:46 AM EDT 20 mg Given 07/11/2024 9:59 AM EDT 20 mg ursodioL (Actigall) capsule 300 mg 300 mg, Oral, 2 TIMES DAILY WITH MEALS, First dose on Tue07/13/24 at 1700, Until Discontinued, Routine Given 07/16/2024 8:52 AM EDT 300 mg Given 07/15/2024 5:13 PM EDT 300 mg Given 07/15/2024 9:06 AM EDT 300 mg vancomycin (Vancocin) 1.5 gram in sodium chloride 0.9% 500 mL infusion 1,500 mg (rounded from 1,389 mg = 15 mg/kg/dose ? 92.6 kg), Intravenous, at 333.3 mL/hr, ONCE, 1 dose, On Tue07/10/24 at 1900, Maximum infusion rate is 1 gram/hour. If flushing of the face, neck, upper body, arms, and/or back occurs decrease infusion rate by 50% to reduce the severity of symptoms. This medication may have an associated drug lab level. Please see MAR for scheduled level. Warning Vesicant/Irritant Medication , Routine, Indication for (Active or Suspected): Urinary Tract/Pyelonephritis New Bag 07/10/2024 8:12 PM EDT 1,500 mg 333.3 mL/h r vancomycin (Vancocin) 500 mg vial attach to sodium chloride 0.9% 100 mL Mini-Bag Plus 500 mg, Intravenous, at 200 mL/hr, ONCE, 1 dose, On Tue07/13/24 at 2000, Maximum infusion rate is 1 gram/hour. If flushing of the face, neck, upper body, arms, and/or back occurs decrease infusion rate by 50% to reduce the severity of symptoms. This medication may have an associated drug lab level. Please see MAR for scheduled level. Warning Vesicant/Irritant Medication , Routine, Indication for (Active or Suspected): Urinary Tract/Pyelonephritis New Bag 07/13/2024 8:33 PM EDT 500 mg 200 mL/hr vancomycin (Vancocin) 750 mg in sodium chloride 0.9% 250 mL infusion 750 mg, Intravenous, at 250 mL/hr, ONCE, 1 dose, On Tue07/11/24 at 1445, Maximum infusion rate is 1 gram/hour. If flushing of the face, neck, upper body, arms, and/or back occurs decrease infusion rate by 50% to reduce the severity of symptoms. This medication may have an associated drug lab level. Please see MAR for scheduled level. Warning Vesicant/Irritant Medication , Routine, Indication for (Active or Suspected): Urinary Tract/Pyelonephritis New Bag 07/11/2024 5:49 PM EDT 750 mg 250 mL/hr vancomycin (Vancocin) 750 mg in sodium chloride 0.9% 250 mL infusion 750 mg, Intravenous, at 250 mL/hr, ONCE, 1 dose, On [place] 07/12/24 at 0800, Maximum infusion rate is 1 gram/hour. If flushing of the face, neck, upper body, arms, and/or back occurs decrease infusion rate by 50% to reduce the severity of symptoms. This medication may have an associated drug lab level. Please see MAR for scheduled level. Warning Vesicant/Irritant Medication , Routine, Indication for (Active or Suspected): Urinary Tract/Pyelonephritis New Bag 07/12/2024 8:45 AM EDT 750 mg 250 mL/hr white petrolatum-mineral oiL (Eucerin) cream Topical (Top), DAILY, First dose on 07/09/24 at 0900, Until Discontinued, LE and feet bilat. Please ensure she is wearing socks to ambulate Given 07/16/2024 9:00 AM EDT Given 07/15/2024 10:00 AM EDT Given 07/14/2024 9:00 AM EDT documented in this encounter Active and Recently Administered Medications Times are shown in EDT. Scheduled Medication Order 07/14/2024 07/15/2024 07/16/2024 apixaban (Eliquis) tablet 5 mg 5 mg, Oral, 2 TIMES DAILY, First dose on Tue07/12/24 at 0900, Until Discontinued, Anticoagulant, Routine, apixaban (Eliquis) Indication: Non-Valvular Atrial Fibrillation 08 (Given - Provider: Valeri Bah RN)2007 (Given - Provider: Tamy Lehman RN) 905 (Given - Provider: Tammi Grimaldo RN)2103 (Given - Provider: Ligia Lopez RN) 851 (Given - Provider: Tammi Grimaldo RN) atorvastatin (Lipitor) tablet 80 mg 80 mg, Oral, DAILY AT NOON, First dose on Tue07/09/24 at 1200, Until Discontinued, Routine 1139 (Given - Provider: Valeri Bah RN) 1242 (Given - Provider: Tammi Grimaldo RN) 1210 (Given - Provider: Tammi Grimaldo RN) baclofen (Lioresal) tablet 5 mg 5 mg, Oral, 2 TIMES DAILY, First dose (after last modification) on Tue07/09/24 at 0300, Until Discontinued, Routine 0823 (Given - Provider: Valeri Bah RN)2006 (Given - Provider: Tamy Lehman RN) 905 (Given - Provider: Tammi Grimaldo RN)2102 (Given - Provider: Ligia Lopez RN) 0852 (Given - Provider: Tammi Grimaldo RN) clopidogreL (Plavix) tablet 75 mg 75 mg, Oral, DAILY, First dose on Tue07/09/24 at 0900, Until Discontinued, Routine 0823 (Given - Provider: Valeri Bah RN) 905 (Given - Provider: Tammi Grimaldo RN) 08 (Given - Provider: Tammi Grimaldo RN) lamoTRIgine (LaMICtal) tablet 100 mg 100 mg, Oral, 2 TIMES DAILY, First dose on Tue07/09/24 at 0900, Until Discontinued, Routine 0823 (Given - Provider: Valeri Bah RN)2007 (Given - Provider: Tamy Lehman RN) 905 (Given - Provider: Tammi Grimaldo RN)2103 (Given - Provider: Ligia Lopez RN) 851 (Given - Provider: Tammi Grimaldo RN) levothyroxine (Synthroid) tablet 100 mcg 100 mcg, Oral, EVERY MORNING, First dose on Tue07/09/24 at 0600, Until Discontinued, Routine 0612 (Given - Provider: Tmay Lehman RN) 044 (Given - Provider: Tamy Lehman RN) 06 (Given - Provider: Ligia Lopez, KANDI) metoprolol succinate XL (Toprol-XL) tablet 50 mg 50 mg, Oral, 2 TIMES DAILY, First dose on Tue07/09/24 at 0900, Until Discontinued, DO NOT CRUSH OR OPEN, Routine 822 (Given - Provider: Valeri Bah, KANDI)2007 (Given - Provider: Tamy Lehman RN) 905 (Given - Provider: Tammi Grimaldo RN)2102 (Given - Provider: Ligia Lopez, KANDI) 851 (Given - Provider: Tammi Grimaldo RN) multivitamin with minerals (Thera M) tablet 1 tablet 1 tablet, Oral, DAILY, First dose on Tue07/10/24 at 1200, Until Discontinued, Routine 822 (Given - Provider: Valeri Bah RN) 905 (Given - Provider: Tammi Grimaldo RN) 08 (Given - Provider: Tammi Grimaldo RN) pantoprazole EC (Protonix) tablet 40 mg 40 mg, Oral, DAILY, First dose on Tue07/09/24 at 0900, Until Discontinued 822 (Given - Provider: Valeri Bah RN) 905 (Given - Provider: Tammi Grimaldo RN) 851 (Given - Provider: Tammi Grimaldo RN) polyethylene glycoL (Miralax) packet 17 g 17 g, Oral, DAILY, First dose on Tue07/09/24 at 1315, Until Discontinued, Routine 899 (Given - Provider: Valeri Bah RN) 905 (Given - Provider: Tammi Grimaldo RN) 09 (Not Given - Provider: Tammi Grimaldo RN - Reason: Patient/family refused) QUEtiapine (Seroquel) tablet 150 mg 150 mg, Oral, NIGHTLY, First dose on Tue07/09/24 at 2100, Until Discontinued, Routine 2006 (Given - Provider: Tamy Lehman RN) 2102 (Given - Provider: Ligia Lopez, KANDI) senna-docusate (Pericolace) 8.6-50 mg per tablet 2 tablet 2 tablet, Oral, 2 TIMES DAILY, First dose on Tue07/09/24 at 1315, Until Discontinued, Routine 0823 (Given - Provider: Valeri Bah RN)2006 (Given - Provider: Tamy Lehman, RN) 905 (Given - Provider: Tammi Grimaldo, KANDI)2103 (Given - Provider: Ligia Lopez RN) 08 (Given - Provider: Tammi Grimaldo RN) sodium chloride 0.9 % (flush) (BD PosiFlush Normal Saline 0.9) flush 5 mL 5 mL, Intravenous, 2 TIMES DAILY, First dose on Tue07/09/24 at 0900, Until Discontinued, Routine 0833 (Given - Provider: Valeri Bah RN)2009 (Given - Provider: Tamy Lehman RN) 906 (Given - Provider: Tammi Grimaldo RN)2103 (Given - Provider: Ligia Lopez RN) 0853 (Given - Provider: Tammi Grimaldo, KANDI) ursodioL (Actigall) capsule 300 mg 300 mg, Oral, 2 TIMES DAILY WITH MEALS, First dose on Tue07/13/24 at 1700, Until Discontinued, Routine 0823 (Given - Provider: Valeri Bah RN)1756 (Given - Provider: Valeri Bah RN) 09 (Given - Provider: Tammi Grimaldo, KANDI)171 (Given - Provider: Tammi Grimaldo RN) 0852 (Given - Provider: Tammi Grimaldo RN) white petrolatum-mineral oiL (Eucerin) cream Topical (Top), DAILY, First dose on Tue07/09/24 at 0900, Until Discontinued, LE and feet bilat. Please ensure she is wearing socks to ambulate 0900 (Given - Provider: Valeri Bah RN) 1000 (Given - Provider: Tammi Grimaldo, KANDI) 0900 (Given - Provider: Tammi Grimaldo, KANDI) PRN Medication Order 07/14/2024 07/15/2024 07/16/2024 acetaminophen (Tylenol) tablet 650 mg 650 mg, Oral, EVERY 6 HOURS PRN, Starting on Tue07/09/24 at 0235, Until Tue07/16/24 at 1733, Pain, Mild pain (1-3), May give together with or in place of other agent(s) ordered for pain (1-10) at patient request. Maximum dose of acetaminophen is 4,000 mg from all sources in 24 hours. , Routine bisacodyL (Dulcolax) suppository 10 mg 10 mg, Rectal, DAILY PRN, Starting on Tue07/10/24 at 1026, Until Tue07/16/24 at 1733, Constipation, Routine heparin (pf) (porcine) (100 units/mL) flush 5 mL syringe 500 Units 500 Units (5 mL), Intravenous, DAILY PRN, 1 dose, Starting on Tue07/16/24 at 1435, Until Tue07/16/24 at 1733, Line Care, Terminal Flush for de-accessing of Implantable Port, Routine ipratropium-albuteroL (Duoneb) 0.5 mg-3 mg(2.5 mg base)/3 mL nebulizer solution 3 mL 3 mL, Nebulization, EVERY 4 HOURS PRN, Starting on Tue07/12/24 at 1012, Until Tue07/16/24 at 1733, Wheezing, Routine lidocaine (Xylocaine) 1% (10 mg/mL) injection 3 mg 3 mg (0.3 mL), Subcutaneous, ONCE PRN, 1 dose, Starting on Tue07/09/24 at 0248, Until Tue07/16/24 at 1733, for discomfort with PIV insertion, Routine magnesium citrate oral liquid 296 mL 296 mL, Oral, DAILY PRN, Starting on Tue07/15/24 at 1251, Until Tue07/16/24 at 1733, Constipation, Routine 1713 (Given - Provider: Tammi Grimaldo RN) magnesium hydroxide (Milk of Magnesia) (80mg/mL) oral liquid 2,400 mg 2,400 mg, Oral, DAILY PRN, Starting on Tue07/10/24 at 1653, Until Tue07/16/24 at 1733, Constipation, 30 mL regular (400 mg/5 mL) = 10 mL concentrate (2400 mg/10 mL), Routine 1047 (Given - Provider: Tammi Grimaldo RN) melatonin tablet 3 mg 3 mg, Oral, NIGHTLY PRN, Starting on Tue07/09/24 at 0248, Until Tue07/16/24 at 1733, Sleep, Sleep, Routine naloxone (Narcan) (0.4 mg/mL) injection 0.2 mg 0.2 mg, Intravenous, EVERY 1 MIN PRN, Starting on Tue07/09/24 at 0233, Until Tue07/16/24 at 1733, Opioid Reversal, May repeat 0.2 mg every 1 minute until patient is responsive or vital signs improve. DO NOT exceed 2 mg total dose. At [facility] or [facility], call provider if naloxone administered. At [facility], If ineffective, call HERT team [phone]. At [facility], page rapid response team., Routine ondansetron (pf) (Zofran) (2 mg/mL) injection 4 mg 4 mg, Intravenous, EVERY 8 HOURS PRN, Starting on Tue07/10/24 at 1100, Until Tue07/16/24 at 1733, Nausea 0926 (Given - Provider: Tammi Grimaldo RN)1735 (Given - Provider: Tammi Grimaldo RN) oxyCODONE (Roxicodone) tablet 10 mg(Linked Group 1) 10 mg, Oral, EVERY 4 HOURS PRN, Starting on Tue07/09/24 at 0233, Until Tue07/16/24 at 1733, Pain, severe pain (7-10), If multiple routes of administration ordered, oral route first line., Routine 0415 (Given - Provider: Tamy Lehman RN)1457 (Given - Provider: Valeri Bah RN)2006 (Given - Provider: Tamy Lehman RN) 0447 (Given - Provider: Tamy Lehman RN)1245 (See Alternative - Provider: Tammi Grimaldo RN)1957 (Given - Provider: Ligia Lopez, KANDI) 0426 (See Alternative - Provider: Ligia Lopez RN)1210 (Given - Provider: Tammi Grimaldo, KANDI) oxyCODONE (Roxicodone) tablet 5 mg(Linked Group 1) 5 mg, Oral, EVERY 4 HOURS PRN, Starting on Tue07/09/24 at 0233, Until Tue07/16/24 at 1733, Pain, moderate pain (4-6), For adults, may give in place of other agent(s) ordered for pain (7-10) at patient request. If multiple routes of administration ordered, oral route first line., Routine 0415 (See Alternative - Provider: Tamy Lehman, RN)1457 (See Alternative - Provider: Valeri Bah, RN)2006 (See Alternative - Provider: Tamy Lehman, RN) 0447 (See Alternative - Provider: Tamy Lehman, RN)1245 (Given - Provider: Tammi Grimaldo, KANDI)1957 (See Alternative - Provider: Ligia Lopez, KANDI) 0426 (Given - Provider: Ligia Lopez, KANDI)1210 (See Alternative - Provider: Tammi Grimaldo, KANDI) oxyCODONE (Roxicodone) tablet 5 mg 5 mg, Oral, EVERY 4 HOURS PRN, Starting on Tue07/09/24 at 0233, Until Tue07/16/24 at 1733, Pain, Breakthrough pain rescue dose, For moderate or severe pain (4-10) unrelieved at least 60 minutes after initial PRN dose was administered Max 3 doses/24 hours. If pain still unrelieved after 3rd rescue dose within 24 hours, contact provider. If multiple routes of administration ordered, oral route first line., Routine sodium chloride 0.9 % (flush) (BD PosiFlush Normal Saline 0.9) flush 5-20 mL 5-20 mL, Intravenous, EVERY 1 MIN PRN, Starting on Tue07/09/24 at 0248, Until Tue07/16/24 at 1733, flush, Flush pertains to all indwelling lines. Flush per protocol found in the job aid using the link provided on this medication record., Routine Linked Groups Order Group 1: oxyCODONE (Roxicodone) tablet 5 mgJump to med 5 mg, Oral, EVERY 4 HOURS PRN, Starting on Tue07/09/24 at 0233, Until Tue07/16/24 at 1733, Pain, moderate pain (4-6), For adults, may give in place of other agent(s) ordered for pain (7-10) at patient request. If multiple routes of administration ordered, oral route first line., Routine Or oxyCODONE (Roxicodone) tablet 10 mgJump to med 10 mg, Oral, EVERY 4 HOURS PRN, Starting on Tue07/09/24 at 0233, Until Tue07/16/24 at 1733, Pain, severe pain (7-10), If multiple routes of administration ordered, oral route first line., Routine documented in this encounter Care Teams Dry Heat Room Attendant Relationship Specialty Start Date End Date Gaudencio Scales DO [address] [place] [address] PCP - General Family Medicine 11/28/23 documented as of this encounter
--- OUTSIDE RECORDS SUMMARY | 2024-07-27 12:44 | XMS_ITS | Encounter Summary ---
Author Organization Count Includes [facility] Address [facility] [place] [address] Care Team Providers Care Family And Marriage Counsellor Name Role Phone Gaudencio Scales Antoine VERGARA Primary Care Provider [phone] Encounter Details Date Type Department Care Team (Late st Contact Info) Description 07/08/2024 Telephone [place] [id number] Tom Moise MD [facility] [place] [address] Social History Tobacco Use Types Packs/Day Years Used Date Smoking Tobacco: Former Cigarettes 1 40 0 11/17/1981 - 11/17/2021 Smokeless Tobacco: Never Alcohol Use Standard Drinks/Week Comments Not Currently 0 (1 standard drink = 0.6 oz pur e alcohol) B1300 Health Literacy Answer Date Recor ded How often do you need to hav e someone help you when you read instructions, pamphlets, or other written material from your doctor or pharmacy? Rarely 05/29/2024 [facility] Utilities Answer Date Recorded In the past 12 months has e Prismatic, gas, oil, or water [employer] threatened to shut off services in your [...] place to sleep or slept in a retirement (including now)? No 11/29/2023 Housing Stability Vital Sign Answer Jeferson e Recorded In the last 12 months, was t here a time when you were not able to pay the mortgage or rent on time? No 07/09/2024 In the past 12 months, how m any times have you moved where you were living? 1 07/09/2024 At any time in the past 12 m onths, were you homeless or living in a retirement (including now)? No 07/09/2024 [facility] Inpatient [...] encounter Miscellaneous Notes * Telephone Encounter - Tom Moise MD - 07/08/2024 9:06 PM EDT Images from the original note were not included. DIVISION OF GASTROENTEROLOGY & HEPATOLOGY TRANSFER [facility] CALL I received a call from Dr. Peralta at [facility]. Briefly, this is a 58 y.o. female with PMH of breast cancer who presents with RUQ pain, hx prior CCY, nausea, vomiting for 1 day. She was given IVFs, antiemetics. Still remains dry heaving with RUQ pain. Vital Signs: 98/62-95-16-37.0-98%RA, BP now improved to SBP 120s-130s Exam per provider calling: tender RUQ, not peritoneal, pale Labs: T.bili: 1.62 AST 172 ALT 93 Alk phos 4,700 Lipase WNL WBC: 10.1 Crea: 5.7 BUN 43 Imaging: CT A/P - CBD dilated, prominence distal esophagus, left clavicle lucency, adrenal lesion. CT head normal. Based on the information provided to me, the general recommendations for this type of patient is toconsider transfer here for further management of her severe JOHN and possible biliary obstruction. Her alk phos is very high, which I wonder is related to bone metastases from her breast cancer which still seems to be in the staging process. 1 month ago, alk phos was ~500. Her liver enzymes are mildl y elevated but tbili is just above the normal limit at 1.62. Can consider a RUQ ultrasound vs MRCP to get a better look at her CBD and look for signs of choledocholithiasis. Would keep her NPO at midnight in case she needs a procedure. Would also trend her LFTs tomorrow to see if her bilirubin rises. If she develops a fever, hypotension, or clinically worsens, would treat for cholangitis. This is not an official consult, as my recommendations are limited by my inability to interview andexamine the patient as well as personally review the medical record, imaging, and laboratory findings. Tom Moise MD Fellow in Gastroenterology and Hepatology [facility] 07/08/2024 documented in this encounter Plan of Treatment Upcoming Encounters Date Type Department Care Team (Latest Contact Info) Description 07/30/2024 8:40 AM EST Hospital [place] [address] Jr Fulton MD [facility] [address] [place] [address] 07/30/2024 8:45 AM EST Appointment Mammography at [place] [address] Jr Fulton MD [facility] [place] [address] 07/30/2024 9:20 AM EST Hospital Encounter Mammography at [place] [address] Jr Fulton MD [facility] [place] [address] 07/30/2024 10:51 AM EST Hospital Encounter [facility] [place] [address] Jr Fulton MD [facility] [place] [address] 07/30/2024 10:51 AM EST Anesthesia Event [facility] [place] [address] Megan [place] [address] 07/30/2024 10:51 AM EST - 07/30/2024 1:11 PM EST Surgery [facility] [place] [address] Jr Fulton MD [facility] [place] [address] MASTECTOMY PARTIAL (WRVU 10.13) 08/22/2024 2:00 PM EST Office Visit General Surgery at [address] Cindy Pierce APRN [facility] [place] [address] 08/22/2024 3:00 PM EST Office Visit Hematology [place] [address] Soo Lyn MD [facility] [place] [address] 08/27/2024 9:30 AM EST Scheduled View Only Radiation Oncology at [address] [phone] Rad Nurse, [facility] 08/27/2024 10:00 AM EST Office Visit Radiation Oncology at [address] [phone] Paradise Prado MD [facility] [place] [address] 2024 1:00 PM EDT Office Visit Cardiology at [address] [place] [address] Ham Montenegro MD [facility] [place] [address] Scheduled Procedures Name Priority Associated Diagnoses Date/Ti [...] on filedocumented in this encounter Care Teams Family And Marriage Counsellor Relationship Specialty Start Date End Date Gaudencio Scales DO [address] [place] [address] PCP - General Family Medicine 11/28/23 documented as of this encounter
--- OUTSIDE RECORDS SUMMARY | 2024-07-27 12:44 | XMS_ITS | Encounter Summary ---
Author Organization [facility] [place] [address] Care Team Providers Care Scout Executive Name Role Phone Loyda Gaudencio Antoine VERGARA Primary Care Provider [phone] Reason for Visit * Auth/Cert (Routine) Specialty Diagnoses / Procedures Referred By Radha carr Referred To Contact Diagnoses Abdominal pain Obstructive biliary process Procedures EMERGENCY Srikanth Holloway MD [facility] [place] [address] [facility] Referral ID Status Reason Start Date Expiration Date Visits Re quested Visits Authorized [id number] 1 1 Encounter Details Date Type Department Care Team (Late st Contact Info) Description 07/11/2024 3:35 PM EDT - 07/11/2024 4:35 PM EDT [place] [id number] Davie Swenson MD [facility] [place] [address] UPPER EUS- ENDOSCOPIC ULTRASOUND (WRVU 3.47) Social History Tobacco Use Types Packs/Day Years [...] from your doctor or pharmacy? Rarely 05/29/2024 [facility] Utilities Answer Date Recorded In [...] place to sleep or slept in a prison (including now)? No 11/29/2023 Housing Stability Vital Sign Answer Jeferson e Recorded In the last 12 months, was t here a time when you were not able to pay the mortgage or rent on time? No 07/09/2024 In the past 12 months, how m any times have you moved where you were living? 1 07/09/2024 At any time in the past 12 m [facility], were you homeless or living in a prison (including now)? No 07/09/2024 IPV Inpatient Questions [...] Sign Reading Time Taken Comments Blood Pressure 111/49 07/11/2024 4:30 PM EDT Pulse 56 07/11/2024 4:02 PM EDT Temperature 36.1 ??C (97 ??F) 07/11/2024 2:27 PM EDT Respiratory Rate 16 07/11/2024 4:30 PM EDT Oxygen Saturation 92% 07/11/2024 4:30 PM EDT Inhaled Oxygen Concentration - - Weight 92.6 kg (204 lb 3.2 oz) 07/09/2024 1:00 A M EDT Height 166.4 cm (5' 5.5) 07/09/2024 1:00 AM EDT Body Mass Index 35.8 07/16/2024 4:19 AM EDT documented in this encounter Discharge Summaries * Charles Berry MD - 07/16/2024 2:21 PM EDT Images from the original note were not included. Discharge Summary Patient Name: Oksana Betancourt Patient Age: 58 y.o. Language: Israeli Race: Choose not to Disclose Ethnicity: Choose [...] please contact your inpatient physician through the [facility] Airbrush Artist . Issues afterhours and on weekends will [...] phos/GGT On admission, Alk phos 2558, GGT 8. RUQUS showed CBD measuring 1 cm, no [...] for E. Faecium UTI. #ASCVD with h/o UT and PCI #Non-rheumatic aortic valve stenosis - [...] (Calculated): 35.8 Height: 161 cm (5' 3.39) (07/16/249) Weight: 92.8 kg (204 lb 9.4 oz) (07/16/24418) Functional and Cognitive Status: Normal Important Studies and Lab Data: Labs: Recent Labs 07/16/2443507/15/2432207/14/24 001 WBC 9.36 8.05 8.50 HGB 8.8* 8.4* 8.4* PLATELET 325 317 306 Recent Labs 07/16/2443507/15/2432207/14/2417 NA 140 139 138 K 4.3 3.9 3.7 CL 101 98 96* CO2 BUN 22* 22* 24* CREATININE 1.65* 1.80* 2.09* Recent Labs 07/16/2443507/15/2432207/14/241707/13/2440907/12/24409 CALCIUM 10.0 9.6 9.3 9.5 8.9 PHOS -- -- 3.0 3.0 2.8 Recent Labs 07/16/2443507/15/2432207/14/2417 AST 207* 201* 202* ALT 99* 93* 89* ALKPHOS 2,834* 2,850* 2,893* BILITOT 1.4* 1.3 1.2 No results for input(s): TROPONINT, CK in the last 168 hours. No results for input(s): PHART, JQI7KGX, PO2ART, ZEK9GUU in the last 168 hours. Pending Studies [...] by mouth as needed for Pain (Please scholarship counselor patient on equal parts benadryl and Maalox.). 1-2 mL Quantity: 100 mL Refills: 1 bnmhutrcs-ihowlkhxf-vm-mag-sim [id number] mg/30 mL Suspension Take 20-30 mLs by [...] were hospitalized - You were admitted to [facility] on 07/09/24 for abdominal pain, nausea, [...] 07/26/2024 2:00 PM Nicole Llanes OT OT [facility] 07/30/2024 3:40 PM Ham Montenegro MD [facility] 08/06/2024 8:30 AM [facility] NM PET HOLD Nuc Med [facility] Rad 08/06/2024 9:30 AM [facility] NM PET 1 Nuc Med [facility] Rad 2024 1:00 PM Ham Montenegro MD [facility] Your Inpatient Medical Team at [facility] Name(s) of your inpatient provider(s): MD Charles Daniels MD For questions regarding issues relating to your hospitalization on the Hospital Medicine Service, please contact your inpatient physician through the [facility] Airbrush Artist [phone]. Issues after hours and on weekends will be handled by the Hospitalist staff on-call. Your Primary Care Provider Gaudencio Scales DO [phone] General Instructions Endoscopic Ultrasound (Oral): What to [...] the day after the procedure, use an illh-dyd-wofkwlu spray to numb your throat. Sucking on [...] occurs, please contact your Doctor. Please call [phone] before 8pm Mon-Fri with problems, questions or concerns. If you call after 8pm or on weekends, call the Hospital at [phone] and ask to speak to the Senior Front End Developer bone char kiln tender and the jointer operator will contact that person for you. When should you call for help? Call [phone] anytime you think you may need emergency [...] any problems. Where can you learn more? [facility] View your After Visit Summary and more online at [email or web address] If you would like to provide feedback about your hospital experience, please call the Office of Patient and Family Relations at . If you have received this After Visit Summary in error, please immediately return it in person to the department, or notify the [facility] Privacy Office by calling toll free at between the hours of 8AM and 5PM to arrange for our retrieval of the documents at no cost to you. Content Version: 12.2 ?? 3524-5788 [employer]. Care instructions adapted under license by [employer]. If you have questions about a medical condition or this instruction, always ask your healthcare professional. [employer] disclaims any warranty or liability for your use of this information. Future Appointments and Orders Future Appointments and Orders Future Appointments Provider Department Dept Phone 07/30/2024 3:40 PM Ham Montenegro MD Cardiology at [place] Arrive at: [facility] [address] [phone] 08/06/2024 8:30 AM [facility] NM PET HOLD Nuclear Medicine at [facility] Arrive at: [employer] [phone] 08/06/2024 9:30 AM [facility] NM PET 1 Nuclear Medicine at [facility] Arrive at: [facility] [phone] 2024 1:00 PM Ham Montenegro MD Cardiology at [place] Arrive at: [facility] [address] [phone] Future Orders Complete By Expires NM PET CT Skull Base to Mid-thigh [NO CPT CODE Custom] 07/20/2024 (Approximate) 01/19/2025 Process Instructions: Scheduling Instructions: Comments: Questions: Where will study be performed?: [facility] Radiology To be scheduled: Ordering department to [...] Instructions: If requesting a colonoscopy please use [id number] AMB REFERRAL TO COLONOSCOPY PROCEDURE. This referral [...] Oksana Betancourt for admission to Home Health. [address] [place] [address] [address] [facility] [phone] (home) Date of : 1965 Outpatient Person [...] AND/OR HOSPICE SERVICES) PATIENT'S LOCATION: Oksana Betancourt [address] [place] [phone] (home) Cell: Telephone Information: Scrum Project Manager's Name: Oksana In discussion with the attending physician, it is certified that this patient is under their care and that they, or a Nurse Practitioner, Clinical Nurse specialist or Physician Validation Engineer who is working directly with them, had [...] activities, ie. dressing/bathing HOME HEALTH CARE AGENCY: [facility] [address] [place] [address] START OF CARE: within 24-48 hours of [...] to be obtained from this patient's PCP: Gaudencio Scales, [address] [facility] [address] . All VNA agencies which cover the [...] the day after the procedure, use an bhfo-rya-mpqluyp spray to numb your throat. Sucking on [...] occurs, please contact your Doctor. Please call [phone] before 8pm Mon-Fri with problems, questions or concerns. If you call after 8pm or on weekends, call the Hospital at [phone] and ask to speak to the Senior Front End Developer bone char kiln tender and the jointer operator will contact that person for you. When should you call for help? Call [phone] anytime you think you may need emergency [...] any problems. Where can you learn more? [facility] View your After Visit Summary and more online at [email or web address] If you would like to provide feedback about your hospital experience, please call the Office of Patient and Family Relations at . If you have received this After Visit Summary in error, please immediately return it in person to the department, or notify the [facility] Privacy Office by calling toll free at between the hours of 8AM and 5PM to arrange for our retrieval of the documents at no cost to you. Content Version: 12.2 ?? 1520-8947 [employer]. Care instructions adapted under license by [employer]. If you have questions about a medical condition or this instruction, always ask your healthcare professional. [employer] disclaims any warranty or liability for your use of this information. * Patient Instructions* Leidy Fong - 07/14/2024 3:06 PM EDT Patient Instructions on Discharge to Home Why you were hospitalized - You were admitted to [facility] on 07/09/24 for abdominal pain, nausea, [...] Center 07/26/2024 2:00 PM Nicole Llanes OT [facility] 07/30/2024 3:40 PM Ham Montenegro MD [facility] 08/06/2024 8:30 AM [facility] NM PET HOLD Nuc Med [facility] 08/06/2024 9:30 AM [facility] NM PET 1 Nuc Med [facility] Rad 2024 1:00 PM Ham Montenegro MD [facility] Your Inpatient Medical Team at [facility] Name(s) of your inpatient provider(s): MD Charles Daniels MD For questions regarding issues relating to your hospitalization on the Hospital Medicine Service, please contact your inpatient physician through the [facility] Airbrush Artist [phone]. Issues after hours and on weekends will be handled by the Hospitalist staff on-call. Your Primary Care Provider Gaudencio Scales DO [phone] documented in this encounter Medications at Time [...] by mouth as needed for Pain (Please scholarship counselor patient on equal parts benadryl and [...] of this encounter Progress Notes * Tammi Grimaldo, RN - 07/16/2024 3:32 PM EDT Illness [...] on RA. PRN oxycodone given x1 for 03/28 neck/back pain. Voiding adequately. Large BM this shift. Denies nausea or SOB this shift. Discharge orders placed and ride arranged for patient. Port de-accessed and PIV removed. AVS and verbal discharge instruction given to patient. Pt left unit in stable condition via wheelchair with RECREATIONAL VEHICLE REPAIRER at 1453. Most recent weight: Weight: 92.8 kg (204 lb 9.4 oz) (07/16/24 0419) Neuro: WDL CV: WDL Telemetry: No Neurovasc: .WDL except, edema VTE Prophylaxis: anticoagulant therapy (eliquis) Pulmonary: WDL O2 Device: None (Room air) GI: WDL LBM: 07/16/24 : WDL Bladder Scan/SC: Q shift Musculoskeletal: .WDL except, mobility Pain/Location: 2 (07/16/24 1310) / neck (07/15/241956) Mobility Plan: IND/SBA Bed [...] spent >30 minutes (Day of Discharge Code 95053) involved in the final examination of the [...] 92.8 kg (204 lb 9.4 oz) (07/16/24 6209) Action List Trend LFTs PRN MoM Discharge [...] weight: Weight: 93 kg (205 lb) (07/15/24 9979) Neuro: WDL CV: WDL Telemetry: No Neurovasc: [...] PCP: Gaudencio Scales DO PCP phone number: [phone] Date of Admission: 07/09/2024 ( Hospital Day [...] bilateral mastectomy presenting as a transfer from [facility] where she presented with nausea,vomiting, and RUQ pain. 24 Hour Events/Subjective: -NAEO -last BM 3 days ago. Will try enema if prn not working today -RUQ pain 2/10 today, was 7/10 prior. States improving. -Nausea + today. Says [...] 0-->no symptoms 07/09/24 1000 Labs: Recent Labs 07/15/24 0323 07/14/24 0018 07/13/24 0410 07/12/24 0834 07/11/24 0408 WBC 8.05 8.50 10.72* 9.66* 11.57* HGB 8.4* 8.4* 8.6* 8.6* 8.2* HCT 26.3* 25.6* 26.6* 27.3* 25.2* PLATELET 317 306 322 324 375* MCV 92.3 92.1 91.7 95.5* 92.6 Recent Labs 07/15/24 0323 07/14/24 0018 07/13/24 0410 07/12/24 0410 07/11/24 0408 07/10/24 [...] this interval not displayed. LFTs Recent Labs 07/15/24 0323 07/14/24 0018 07/13/24 0410 07/12/24 0410 07/11/24 0408 PROT 8.2* 7.9 [...] Procedure Component Value Units Date/Time Urine culture [[id number]] (Abnormal) (Susceptibility) Collected: 07/09/24924 Lab Status: Final [...] 07/09/2024 10:53 AM) Result Value WORKSTATION ID [id number] Impression 1. Slightly limited exam with no evidence of hydronephrosis or nephrolithiasis. 2. Stable mild right renal atrophy. I have personally reviewed the image(s) and the resident's interpretation and agree with the findings, David Alvarado MD at 07/09/2024 11:07 AM Electronically signed by: David Alvarado MD, [facility] ([phone]), at 07/09/2024 11:07 AM Thank you for letting us participate in the care of this patient. If you are a health care provider and have any questions regarding this report, please contact the number above. For patients who have questions, please contact the health personal care attendant that requested your imaging first. David Alvarado, Staff Physician Electronically Signed Final Report 07/09/2024 11:16 am US Abdomen Limited (Exam End: 07/09/2024 11:16 AM) Result Value WORKSTATION ID [id number] Impression 1. Normal hepatic parenchymal echogenicity and [...] David Alvarado MD at 07/09/2024 11:45 AM Electronically signed by: David Alvarado MD, [facility] ([phone]), at 07/09/2024 11:45 AM Thank you for letting us participate in the care of this patient. If you are a health care provider and have any questions regarding this report, please contact the number above. For patients who have questions, please contact the health personal care attendant that requested your imaging first. 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 evident choledocholithiasis. Thank you for letting us participate in the care of this patient. If you are a health care provider and have any questions regarding this report, please contact the number below. For patients who have questions please contact the health personal care attendant that requested your imaging first. Electronically signed by: Kristine Doyle MD, [facility] ([phone]), at 07/10/2024 6:36 AM OSH imaging reports: CTH: no acute intracranial abnormality [...] bilateral mastectomy presenting as a transfer from 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 Plan for further work up outpatient. Hospitalization [...] dose medications as appropriate #ASCVD with h/o UT and PCI #Non-rheumatic aortic valve stenosis - [...] Dispo: Pending clinical course Charles Berry MD [facility] Medicine 07/15/24 11:06 AM IPI Certification I certify that I am a D-H credentialed attending provider with admitting privileges and that the patient meets or has met medical necessity to require an inpatient IPI level of care meeting a minimumof two midnights or is on the [facility] inpatient only procedure list (status C) due [...] AM EDT Hypertension/Nephrology Inpatient Follow-up Oksana Betancourt [id number] 1965 ID: 58 y.o. old female seen [...] PM EDT Hypertension/Nephrology Inpatient Follow-up Oksana Betancourt [id number] 1965 ID: 58 y.o. old female seen for JONATHAN. Interval History: Uneventful night. NAD, normal respiratory effort, no edema. VSS, Cr improved today. Continue to hold diuretics. Course consistent with ATN. * Charles Berry MD - 07/14/2024 11:17 AM EDT Images from the original note were not included. [facility] Medicine Progress Note Patient info: Name: Oksana Betancourt : 1965 PCP: Gaudencio Scales DO PCP phone number: [phone] Date of Admission: 07/09/2024 ( Hospital Day [...] bilateral mastectomy presenting as a transfer from [facility] where she presented with nausea,vomiting, and RUQ pain. 24 Hour Events/Subjective: -NAEO -last BM 2 days ago. Will try prns and follow -RUQ pain 2/10 today, was 7/10 prior. States improving. -Nausea resolved -Start Ursodiol per GI. -nephro consult reviewed. Increased [place] and Lambda FLC noted, will dw onc. [...] 0-->no symptoms 07/09/24 1000 Labs: Recent Labs 07/14/24 0018 07/13/24 0410 07/12/24 0834 07/11/24 0408 07/10/24 0526 WBC 8.50 10.72* 9.66* 11.57* 10.15* HGB 8.4* 8.6* 8.6* 8.2* 8.1* HCT 25.6* 26.6* 27.3* 25.2* 24.5* PLATELET 306 322 324 375* 412* MCV 92.1 91.7 95.5* 92.6 92.1 Recent Labs 07/14/24 0018 07/13/24 0410 07/12/24 0410 07/11/24 0408 07/10/24 [...] 2.16* 2.84* 3.12* -- LFTs Recent Labs 07/14/24 0018 07/13/24 0410 07/12/24 0410 07/11/24 0408 07/10/24 0526 PROT 7.9 8.0 [...] Procedure Component Value Units Date/Time Urine culture [[id number]] (Abnormal) (Susceptibility) Collected: 07/09/24924 Lab Status: Final [...] 07/09/2024 10:53 AM) Result Value WORKSTATION ID [id number] Impression 1. Slightly limited exam with no [...] who have questions, please contact the health personal care attendant that requested your imaging first. David Alvarado, Staff Physician Electronically Signed Final Report 07/09/2024 11:16 am US Abdomen Limited (Exam End: 07/09/2024 11:16 AM) Result Value WORKSTATION ID [id number] Impression 1. Normal hepatic parenchymal echogenicity and [...] David Alvarado MD at 07/09/2024 11:45 AM Electronically signed by: David Alvarado MD, [facility] ([phone]), at 07/09/2024 11:45 AM Thank you for letting us participate in the care of this patient. If you are a health care provider and have any questions regarding this report, please contact the number above. For patients who have questions, please contact the health personal care attendant that requested your imaging first. 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 evident choledocholithiasis. Thank you for letting us participate in the care of this patient. If you are a health care provider and have any questions regarding this report, please contact the number below. For patients who have questions please contact the health personal care attendant that requested your imaging first. Electronically signed by: Kristine Doyle MD, [facility] ([phone]), at 07/10/2024 6:36 AM OSH imaging reports: CTH: no acute intracranial abnormality [...] bilateral mastectomy presenting as a transfer from 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 Plan for further work up outpatient. Hospitalization [...] dose medications as appropriate #ASCVD with h/o UT and PCI #Non-rheumatic aortic valve stenosis - [...] Dispo: Pending clinical course Charles Berry MD [facility] Medicine 07/14/24 11:17 AM IPI Certification I certify that I am a D-H credentialed attending provider with admitting privileges and that the patient meets or has met medical necessity to require an inpatient IPI level of care meeting a minimumof two midnights or is on the [facility] inpatient only procedure list (status C) due [...] hypothyroidism, paroxysmal A-fib on Eliquis [facility] pain, nausea and [...] paroxysmal A-fib on Eliquis who presents from [facility] on 07/08 with abdominal pain, nausea and [...] microlithiasis that was unremarkable. Reviewed case with aerial hurricane hunter today and discussed that given history of [...] documented. Juanito Heller MD Section of Gastroenterology [facility] * Elda Gaxiola MD - 07/13/2024 3:45 PM EDT Images from the original note were not included. [facility] Medicine Progress Note Patient info: Name: Oksana Betancourt : 1965 PCP: Gaudencio Scales DO PCP phone number: [phone] Date of Admission: 07/09/2024 ( Hospital Day [...] bilateral mastectomy presenting as a transfer from [facility] where she presented with nausea,vomiting, and RUQ [...] Procedure Component Value Units Date/Time Urine culture [[id number]] (Abnormal) (Susceptibility) Collected: 07/09/24 09 Lab Status: [...] 07/09/2024 10:53 AM) Result Value WORKSTATION ID [id number] Impression 1. Slightly limited exam with no evidence of hydronephrosis or nephrolithiasis. 2. Stable mild right renal atrophy. I have personally reviewed the image(s) and the resident's interpretation and agree with the findings, David Alvarado MD at 07/09/2024 11:07 AM Electronically signed by: David Alvarado MD, [facility] ([phone]), at 07/09/2024 11:07 AM Thank you for letting us participate in the care of this patient. If you are a health care provider and have any questions regarding this report, please contact the number above. For patients who have questions, please contact the health personal care attendant that requested your imaging first. David Alvarado, Staff Physician Electronically Signed Final Report 07/09/2024 11:16 am US Abdomen Limited (Exam End: 07/09/2024 11:16 AM) Result Value WORKSTATION ID [id number] Impression 1. Normal hepatic parenchymal echogenicity and [...] David Alvarado MD at 07/09/2024 11:45 AM Electronically signed by: David Alvarado MD, [facility] ([phone]), at 07/09/2024 11:45 AM Thank you for letting us participate in the care of this patient. If you are a health care provider and have any questions regarding this report, please contact the number above. For patients who have questions, please contact the health personal care attendant that requested your imaging first. 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 evident choledocholithiasis. Thank you for letting us participate in the care of this patient. If you are a health care provider and have any questions regarding this report, please contact the number below. For patients who have questions please contact the health personal care attendant that requested your imaging first. Electronically signed by: Kristine Doyle MD, [facility] ([phone]), at 07/10/2024 6:36 AM OSH imaging reports: CTH: no acute intracranial abnormality [...] bilateral mastectomy presenting as a transfer from 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 Plan for further work up outpatient. Hospitalization [...] -C/w Vancomycin (07/10 -07/14) #ASCVD with h/o UT and PCI #Non-rheumatic aortic valve stenosis - [...] Dispo: Pending clinical course Elda Gaxiola MD [facility] Medicine 07/13/24 3:45 PM IPI Certification I certify that I am a D-H credentialed attending provider with admitting privileges and that the patient meets or has met medical necessity to require an inpatient IPI level of care meeting a minimumof two midnights or is on the [facility] inpatient only procedure list (status C) due to: acute kidney injury necessitating close monitoring of fluid balance such as intravenous fluids and/or titration of medication to achieve optimal effect and minimize the chance of immediate or severe side effects and E. Faecium UTI requiring IV Vancomycin due to antibiotic resistance pattern. * AjitLiedy S - 07/13/2024 8:13 AM EDT Images from the original note were not included. Hospital Medicine Progress Note Patient info: Name: Oksana Betancourt : 1965 PCP: Gaudencio Scales DO PCP phone number: [phone] Date of Admission: 07/09/2024 ( Hospital Day [...] bilateral mastectomy presenting as a transfer from [facility] where she presented with nausea,vomiting, and RUQ [...] symptoms 05/29/24 1154 Infiltration 0-->no symptoms 05/29/24 115 Site Signs/Symptoms [...] Procedure Component Value Units Date/Time Urine culture [[id number]] (Abnormal) (Susceptibility) Collected: 07/09/24924 Lab Status: Final [...] 07/09/2024 10:53 AM) Result Value WORKSTATION ID [id number] Impression 1. Slightly limited exam with no [...] who have questions, please contact the health personal care attendant that requested your imaging first. David Alvarado, Staff Physician Electronically Signed Final Report 07/09/2024 11:16 am US Abdomen Limited (Exam End: 07/09/2024 11:16 AM) Result Value WORKSTATION ID [id number] Impression 1. Normal hepatic parenchymal echogenicity and [...] David Alvarado MD at 07/09/2024 11:45 AM Electronically signed by: David Alvarado MD, [facility] ([phone]), at 07/09/2024 11:45 AM Thank you for letting us participate in the care of this patient. If you are a health care provider and have any questions regarding this report, please contact the number above. For patients who have questions, please contact the health personal care attendant that requested your imaging first. 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 evident choledocholithiasis. Thank you for letting us participate in the care of this patient. If you are a health care provider and have any questions regarding this report, please contact the number below. For patients who have questions please contact the health personal care attendant that requested your imaging first. Electronically signed by: Kristine Doyle MD, [facility] ([phone]), at 07/10/2024 6:36 AM OSH imaging reports: CTH: no acute intracranial abnormality [...] bilateral mastectomy presenting as a transfer from 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 Hospitalization has been relayed to surgical team [...] nephro -C/w Vancomycin (07/10-07/14) #ASCVD with h/o UT and PCI #Non-rheumatic aortic valve stenosis - [...] Resuscitation - Inpatient Dispo: Pending clinical course [facility] Medicine 07/13/24 8:14 AM * Valeri Bah RN [...] IV vanco Discharge 07/14? * Amanda Wall Gavin, RD - 07/12/2024 4:43 PM EDT Nutrition Progress Note Oksana Betancourt is a 58 y.o. female presenting with abdominal pain, nausea and vomiting. Chronic medical conditions include breast cancer, CAD s/p CRIS x7, aortic valve stenosis s.p replacement, hypothyroidism, and PAF on Eliquis. She was seen at [facility] on 07/08 and transferred to [facility] for GI evaluation and treatment of possible obstructive biliary process and JONATHAN.She currently c/o nausea that began 4 days [employer], 07/04. States she has been unable to [...] encounter: 92.6 kg (204 lb 3.2 oz). [place] Body Weight (IBW) (kg): 57.95 Weight Loss: [...] and 39g protein). She dislikes CIB andasked creative writer to remove. Web Database Developer encouraged adequate protein intake, reviewed protein sources, and provided high protein snack list. Oksana declined snacks at this time, but will work on protein intake. 07/10: Nutrition consulted for malnutrition evaluation, creative writer met with Oksana at bedside. Oksana [...] maxillary line): None present Lean Muscle Loss Amish region (temporalis muscle): Mild Clavicle bone region [...] that may arise prior to discharge. Pager: [phone] Stacia Bhat, PT Date: 07/12/24 Physical Therapy Rehabilitation Department * Elda Gaxiola MD - 07/12/2024 1:59 PM EDT Images from the original note were not included. [facility] Medicine Progress Note Patient info: Name: Oksana Betancourt : 1965 PCP: Gaudencio Scales DO PCP phone number: [phone] Date of Admission: 07/09/2024 ( Hospital Day [...] bilateral mastectomy presenting as a transfer from [facility] where she presented with nausea,vomiting, and RUQ [...] MCV 95.5* 92.6 92.1 94.7* Recent Labs 07/12/240 07/11/24 0408 07/10/24 0526 07/10/24 0215 [...] Procedure Component Value Units Date/Time Urine culture [[id number]] (Abnormal) (Susceptibility) Collected: 07/09/24924 Lab Status: Final [...] 07/09/2024 10:53 AM) Result Value WORKSTATION ID [id number] Impression 1. Slightly limited exam with no evidence of hydronephrosis or nephrolithiasis. 2. Stable mild right renal atrophy. I have personally reviewed the image(s) and the resident's interpretation and agree with the findings, David Alvarado MD at 07/09/2024 11:07 AM Electronically signed by: David Alvarado MD, [facility] ([phone]), at 07/09/2024 11:07 AM Thank you for letting us participate in the care of this patient. If you are a health care provider and have any questions regarding this report, please contact the number above. For patients who have questions, please contact the health personal care attendant that requested your imaging first. David Alvarado, Staff Physician Electronically Signed Final Report 07/09/2024 11:16 am US Abdomen Limited (Exam End: 07/09/2024 11:16 AM) Result Value WORKSTATION ID [id number] Impression 1. Normal hepatic parenchymal echogenicity and [...] David Alvarado MD at 07/09/2024 11:45 AM Electronically signed by: David Alvarado MD, [facility] ([phone]), at 07/09/2024 11:45 AM Thank you for letting us participate in the care of this patient. If you are a health care provider and have any questions regarding this report, please contact the number above. For patients who have questions, please contact the health personal care attendant that requested your imaging first. David Alvarado, Staff Physician Electronically Signed Final Report 07/09/2024 11:53 am MRI Cholangiopancreatography WO Contrast (Exam End: 07/09/2024 10:28 PM) Result Value WORKSTATION ID [id number] Impression Bile duct ectasia with CBD measuring up to [address] evident choledocholithiasis. Thank you for letting us participate in the care of this patient. If you are a health care provider and have any questions regarding this report, please contact the number below. For patients who have questions please contact the health personal care attendant that requested your imaging first. Electronically signed by: Kristine Doyle MD, [facility] ([phone]), at 07/10/2024 6:36 AM OSH imaging reports: CTH: no acute intracranial abnormality [...] bilateral mastectomy presenting as a transfer from 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 Plan for further work up outpatient. Hospitalization [...] -C/w Vancomycin (07/10 -07/14) #ASCVD with h/o UT and PCI #Non-rheumatic aortic valve stenosis - [...] Dispo: Pending clinical course Elda Gaxiola MD [facility] Medicine 07/12/24 1:59 PM IPI Certification I certify that I am a D-H credentialed attending provider with admitting privileges and that the patient meets or has met medical necessity to require an inpatient IPI level of care meeting a minimumof two midnights or is on the [facility] inpatient only procedure list (status C) due [...] from the original note were not included. [facility] Medicine Progress Note Patient info: Name: Oksana Betancourt : 1965 PCP: Gaudencio Scales DO PCP phone number: [phone] Date of Admission: 07/09/2024 ( Hospital Day [...] bilateral mastectomy presenting as a transfer from [facility] where she presented with nausea,vomiting, and RUQ [...] Intake/Output Summary (Last 24 hours) at 07/12/2024 0729 Last data filed at 07/12/2024 0727 Gross per 24 hour Intake 3700 ml [...] Procedure Component Value Units Date/Time Urine culture [[id number]] (Abnormal) (Susceptibility) Collected: 07/09/24 0925 Lab Status: Final result Specimen: Urine, Clean [...] 07/09/2024 10:53 AM) Result Value WORKSTATION ID [id number] Impression 1. Slightly limited exam with no evidence of hydronephrosis or nephrolithiasis. 2. Stable mild right renal atrophy. I have personally reviewed the image(s) and the resident's interpretation and agree with the findings, David Alvarado MD at 07/09/2024 11:07 AM Electronically signed by: David Alvarado MD, [facility] ([phone]), at 07/09/2024 11:07 AM Thank you for letting us participate in the care of this patient. If you are a health care provider and have any questions regarding this report, please contact the number above. For patients who have questions, please contact the health personal care attendant that requested your imaging first. David Alvarado, Staff Physician Electronically Signed Final Report 07/09/2024 11:16 am US Abdomen Limited (Exam End: 07/09/2024 11:16 AM) Result Value WORKSTATION ID [id number] Impression 1. Normal hepatic parenchymal echogenicity and [...] David Alvarado MD at 07/09/2024 11:45 AM Electronically signed by: David Alvarado MD, [facility] ([phone]), at 07/09/2024 11:45 AM Thank you for letting us participate in the care of this patient. If you are a health care provider and have any questions regarding this report, please contact the number above. For patients who have questions, please contact the health personal care attendant that requested your imaging first. 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 evident choledocholithiasis. Thank you for letting us participate in the care of this patient. If you are a health care provider and have any questions regarding this report, please contact the number below. For patients who have questions please contact the health personal care attendant that requested your imaging first. Electronically signed by: Kristine Doyle MD, [facility] ([phone]), at 07/10/2024 6:36 AM OSH imaging reports: CTH: no acute intracranial abnormality [...] bilateral mastectomy presenting as a transfer from 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 Hospitalization has been relayed to surgical team and mastectomy cancelled for the time being. Oncology recommendsno further inpatient workup of possible bony metastasis. OSH labs also remarkable for acute JNOATHAN with BUN 43, creatinine 5.7. UA concerning [...] complete 5 day course #ASCVD with h/o UT and PCI #Non-rheumatic aortic valve stenosis - [...] Resuscitation - Inpatient Dispo: Pending clinical course [facility] Medicine 07/12/24 7:29 AM * Elda Clinton [...] tomorrow for PT evaluation as appropriate. Pager: [phone] Stacia Bhat, PT Date: 07/11/24 Physical Therapy Rehabilitation Department * Elda Gaxiola MD - 07/11/2024 1:49 PM EDT Images from the original note were not included. Hospital Medicine Progress Note Patient info: Name: Oksana Betancourt : 1965 PCP: Gaudencio Scales DO PCP phone number: [phone] Date of Admission: 07/09/2024 ( Hospital Day [...] bilateral mastectomy presenting as a transfer from [facility] where she presented with nausea,vomiting, and RUQ [...] symptoms 05/29/24 1154 Infiltration 0-->no symptoms 05/29/24 115 Site Signs/Symptoms [...] -- 100 103 CO2 25 25 -- 23 23 K 3.6 3.7 -- 3.7 3.8 PHOS [...] Procedure Component Value Units Date/Time Urine culture [[id number]] (Abnormal) (Susceptibility) Collected: 07/09/24924 Lab Status: Final [...] 07/09/2024 10:53 AM) Result Value WORKSTATION ID [id number] Impression 1. Slightly limited exam with no evidence of hydronephrosis or nephrolithiasis. 2. Stable mild right renal atrophy. I have personally reviewed the image(s) and the resident's interpretation and agree with the findings, David Alvarado MD at 07/09/2024 11:07 AM Electronically signed by: David Alvarado MD, [facility] ([phone]), at 07/09/2024 11:07 AM Thank you for letting us participate in the care of this patient. If you are a health care provider and have any questions regarding this report, please contact the number above. For patients who have questions, please contact the health personal care attendant that requested your imaging first. David Alvarado, Staff Physician Electronically Signed Final Report 07/09/2024 11:16 am US Abdomen Limited (Exam End: 07/09/2024 11:16 AM) Result Value WORKSTATION ID [id number] Impression 1. Normal hepatic parenchymal echogenicity and [...] David Alvarado MD at 07/09/2024 11:45 AM Electronically signed by: David Alvarado MD, [facility] ([phone]), at 07/09/2024 11:45 AM Thank you for letting us participate in the care of this patient. If you are a health care provider and have any questions regarding this report, please contact the number above. For patients who have questions, please contact the health personal care attendant that requested your imaging first. David Alvarado, Staff Physician Electronically Signed Final Report 07/09/2024 11:53 am MRI Cholangiopancreatography WO Contrast (Exam End: 07/09/2024 10:28 PM) Result Value WORKSTATION ID [id number] Impression Bile duct ectasia with CBD measuring up to [address] evident choledocholithiasis. Thank you for letting us participate in the care of this patient. If you are a health care provider and have any questions regarding this report, please contact the number below. For patients who have questions please contact the health personal care attendant that requested your imaging first. Electronically signed by: Kristine Doyle MD, [facility] ([phone]), at 07/10/2024 6:36 AM OSH imaging reports: CTH: no acute intracranial abnormality [...] bilateral mastectomy presenting as a transfer from 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 Hospitalization has been relayed to surgical team [...] involve nephro -C/w Vancomycin #ASCVD with h/o UT and PCI #Non-rheumatic aortic valve stenosis - [...] Dispo: Pending clinical course Elda Gaxiola MD [facility] Medicine 07/11/24 1:49 PM IPI Certification I certify that I am a D-H credentialed attending provider with admitting privileges and that the patient meets or has met medical necessity to require an inpatient IPI level of care meeting a minimumof two midnights or is on the [facility] inpatient only procedure list (status C) due to: acute kidney injury necessitating close monitoring of fluid balance such as intravenous fluids and/or titration of medication to achieve optimal effect and minimize the chance of immediate or severe side effects * AjitLeidy S - 07/11/2024 7:39 AM EDT Images from the original note were not included. Hospital Medicine Progress Note Patient info: Name: Oksana Betancourt : 1965 PCP: Gaudencio Scales DO PCP phone number: [phone] Date of Admission: 07/09/2024 ( Hospital Day [...] bilateral mastectomy presenting as a transfer from [facility] where she presented with nausea,vomiting, and RUQ [...] symptoms 05/29/24 1154 Infiltration 0-->no symptoms 05/29/24 115 Site Signs/Symptoms [...] -- 100 103 CO2 25 25 -- 23 23 K 3.6 3.7 -- 3.7 3.8 PHOS [...] Endocrine Recent Labs 06/01/24 0144 04/17/24 0729 07/07/12 72411/28/23 1110 TSH 0.60 3.58 3.34 0.51 Microbiology: Microbiology Results (Last 30 days) Procedure Component Value Units Date/Time Urine culture [[id number]] (Abnormal) (Susceptibility) Collected: 07/09/24924 Lab Status: Final [...] 07/09/2024 10:53 AM) Result Value WORKSTATION ID [id number] Impression 1. Slightly limited exam with no evidence of hydronephrosis or nephrolithiasis. 2. Stable mild right renal atrophy. I have personally reviewed the image(s) and the resident's interpretation and agree with the findings, David Alvarado MD at 07/09/2024 11:07 AM Electronically signed by: David Alvarado MD, [facility] ([phone]), at 07/09/2024 11:07 AM Thank you for letting us participate in the care of this patient. If you are a health care provider and have any questions regarding this report, please contact the number above. For patients who have questions, please contact the health personal care attendant that requested your imaging first. David Alvarado, Staff Physician Electronically Signed Final Report 07/09/2024 11:16 am US Abdomen Limited (Exam End: 07/09/2024 11:16 AM) Result Value WORKSTATION ID [id number] Impression 1. Normal hepatic parenchymal echogenicity and [...] David Alvarado MD at 07/09/2024 11:45 AM Electronically signed by: David Alvarado MD, [facility] ([phone]), at 07/09/2024 11:45 AM Thank you for letting us participate in the care of this patient. If you are a health care provider and have any questions regarding this report, please contact the number above. For patients who have questions, please contact the health personal care attendant that requested your imaging first. David Alvarado, Staff Physician Electronically Signed Final Report 07/09/2024 11:53 am MRI Cholangiopancreatography WO Contrast (Exam End: 07/09/2024 10:28 PM) Result Value WORKSTATION ID [id number] Impression Bile duct ectasia with CBD measuring up to [address] evident choledocholithiasis. Thank you for letting us participate in the care of this patient. If you are a health care provider and have any questions regarding this report, please contact the number below. For patients who have questions please contact the health personal care attendant that requested your imaging first. Electronically signed by: Kristine Doyle MD, [facility] ([phone]), at 07/10/2024 6:36 AM OSH imaging reports: CTH: no acute intracranial abnormality [...] bilateral mastectomy presenting as a transfer from 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 OSH labs also remarkable for acute JONATHAN [...] with assistance from Pharmacy #ASCVD with h/o UT and PCI #Non-rheumatic aortic valve stenosis - [...] Resuscitation - Inpatient Dispo: Pending clinical course [facility] 07/11/24 7:39 AM * Miriam Lambert RN [...] from the original note were not included. [facility] Medicine Progress Note Patient info: Name: Oksana Betancourt : 1965 PCP: Gaudencio Scales DO PCP phone number: [phone] Date of Admission: 07/09/2024 ( Hospital Day [...] bilateral mastectomy presenting as a transfer from [facility] where she presented with nausea,vomiting, and RUQ [...] ml Net -942.5 ml Last Bowel Movement: ([employer]OUND[employer]- pt believes ) Patient Vitals for the past 168 hrs: [...] Procedure Component Value Units Date/Time Urine culture [[id number]] (Abnormal) Collected: 07/09/24 0925 Lab Status: Preliminary result Specimen: Urine, Clean Catch Updated: 07/10/24 1119 Urine Culture Greater than 100,000 cfu/ml Enterococcus faecium Imaging: Results for orders placed or performed during the hospital encounter of 07/09/24 US Retroperitoneal Complete (Exam End: 07/09/2024 10:53 AM) Result Value WORKSTATION ID [id number] Impression 1. Slightly limited exam with no evidence of hydronephrosis or nephrolithiasis. 2. Stable mild right renal atrophy. I have personally reviewed the image(s) and the resident's interpretation and agree with the findings, David Alvarado MD at 07/09/2024 11:07 AM Electronically signed by: David Alvarado MD, [facility] ([phone]), at 07/09/2024 11:07 AM Thank you for letting us participate in the care of this patient. If you are a health care provider and have any questions regarding this report, please contact the number above. For patients who have questions, please contact the health personal care attendant that requested your imaging first. David Alvarado, Staff Physician Electronically Signed Final Report 07/09/2024 11:16 am US Abdomen Limited (Exam End: 07/09/2024 11:16 AM) Result Value WORKSTATION ID [id number] Impression 1. Normal hepatic parenchymal echogenicity and [...] David Alvarado MD at 07/09/2024 11:45 AM Electronically signed by: David Alvarado MD, [facility] ([phone]), at 07/09/2024 11:45 AM Thank you for letting us participate in the care of this patient. If you are a health care provider and have any questions regarding this report, please contact the number above. For patients who have questions, please contact the health personal care attendant that requested your imaging first. David Alvarado, Staff Physician Electronically Signed Final Report 07/09/2024 11:53 am MRI Cholangiopancreatography WO Contrast (Exam End: 07/09/2024 10:28 PM) Result Value WORKSTATION ID [id number] Impression Bile duct ectasia with CBD measuring up to [address] evident choledocholithiasis. Thank you for letting us participate in the care of this patient. If you are a health care provider and have any questions regarding this report, please contact the number below. For patients who have questions please contact the health personal care attendant that requested your imaging first. Electronically signed by: Kristine Doyle MD, [facility] ([phone]), at 07/10/2024 6:36 AM OSH imaging reports: CTH: no acute intracranial abnormality [...] bilateral mastectomy presenting as a transfer from 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 OSH labs also remarkable for acute JONATHAN [...] -C/w Ampicillin -ID consulted #ASCVD with h/o UT and PCI #Non-rheumatic aortic valve stenosis - [...] Dispo: Pending clinical course Elda Gaxiola MD [facility] Medicine 07/10/24 3:27 PM IPI Certification I [...] PAF on Eliquis. She was seen at [facility] on 07/08 and transferred to [facility] for GI evaluation and treatment of possible obstructive biliary process and JONATHAN.She currently c/o nausea that began 4 days [employer], 07/04. States she has been unable to [...] sat monitor, IV sites Last Bowel Movement: ([employer]OUND[employer]- pt believes 07/06-) Intake/Output Summary (Last 24 [...] encounter: 92.6 kg (204 lb 3.2 oz). [place] Body Weight (IBW) (kg): 57.95 Weight Loss: [...] interview: 07/10: Nutrition consulted for malnutrition evaluation, creative writer met with Oksana at bedside. Oksana [...] maxillary line): None present Lean Muscle Loss Amish region (temporalis muscle): Mild Clavicle bone region [...] to continue to follow up while inpatient Amadna Tadeo, MS, RDN, LD Clinical Nutrition * Stacia Bhat, PT - 07/10/2024 9:30 AM EDT Document Type: contact Total Minutes, Physical Therapy: 0 Reason: Pt chart reviewed and discussed with RN plan for today. Pt pending MRCP today, currently NPO. Will continue to follow for PT evaluation at appropriate and able. 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 Slightly limited exam with no evidence of hydronephrosis or nephrolithiasis. 2. Stable mild right renal atrophy. I have personally reviewed the image(s) and the resident's interpretation and agree with the findings, David Alvarado MD at 07/09/2024 11:07 AM Electronically signed by: David Alvarado MD, [facility] ([phone]), at 07/09/2024 11:07 AM Thank you for letting us participate in the care of this patient. If you are a health care provider and have any questions regarding this report, please contact the number above. For patients who have questions, please contact the health personal care attendant that requested your imaging first. David Alvarado, Staff Physician Electronically Signed Final Report 07/09/2024 11:16 am US Abdomen Limited (Exam End: 07/09/2024 11:16 AM) Result Value WORKSTATION ID [id number] Impression 1. Normal hepatic parenchymal echogenicity and [...] David Alvarado MD at 07/09/2024 11:45 AM Electronically signed by: David Alvarado MD, [facility] ([phone]), at 07/09/2024 11:45 AM Thank you for letting us participate in the care of this patient. If you are a health care provider and have any questions regarding this report, please contact the number above. For patients who have questions, please contact the health personal care attendant that requested your imaging first. David Alvarado, Staff Physician Electronically Signed Final Report 07/09/2024 11:53 am MRI Cholangiopancreatography WO Contrast (Exam End: 07/09/2024 10:28 PM) Result Value WORKSTATION ID [id number] Impression Bile duct ectasia with CBD measuring up to [address] evident choledocholithiasis. Thank you for letting us participate in the care of this patient. If you are a health care provider and have any questions regarding this report, please contact the number below. For patients who have questions please contact the health personal care attendant that requested your imaging first. Electronically signed by: Kristine Doyle MD, [facility] ([phone]), at 07/10/2024 6:36 AM Medications Scheduled Meds: atorvastatin 80 mg Oral [...] for abdominal pain. She was seen at [facility] on 07/08 and transferred to [facility] for GI evaluation and treatment of possible [...] phos 2487, AST 124, ALT 58, GGT 2038 -Trend LFTs -AMA and anti-smooth muscle antibody [...] pain control Chronic conditions #ASCVD w/ h/o UT and PCI -Continue Statin, Plavix #Afib -Holding Eliquis -Continue Metoprolol #Ischemic cardiomyopathy -Continue torsemide #Hypothyroidism -Continue Synthroid #Aortic valve stenosis -s/p Edd 2021 -Continue Plavix #GERD -Continue PPI #Routine Diet: Regular diet DVT Prophylaxis: DOAC SCD Code Status: Attempt Cardiopulmonary Resuscitation - Inpatient Dispo: Pending clinical course Leidy Vi Fong Internal Medicine, [facility] Medicine, #2500 07/10/24 9:10 AM * Cely Menchaca MD - 07/10/2024 6:50 AM EDT [facility] GASTROENTEROLOGY & HEPATOLOGY CONSULTATION INPATIENT PROGRESS NOTE ID: Oksana Betancourt is a 58 y.o. female with PMH of breast cancer on chemo, CAD s/p CRIS x 7, CHF, aortic valve stenosis s/p replacement, hypothyroidism, paroxysmal A-fib on Eli[facility], nausea and [...] paroxysmal A-fib on Eliquis who presents from [facility] on 07/08 with abdominal pain, nausea and [...] M.D. Fellow in Gastroenterology and Hepatology Pager #[phone] 07/10/2024 Associated attestation - Juanito Heller MD [...] documented. Juanito Heller MD Section of Gastroenterology [facility] * Miriam Lambert RN - 07/10/2024 6:11 [...] branch block. Denies nausea and SOB. Endorsed 5/10 LRUQ abdominal pain, PRN 5mg oxycodone given [...] up for evaluation tomorrow as appropriate. Pager: [phone] Stacia Bhat, PT Date: 07/09/24 Physical Therapy [...] PAF on Eliquis. She was seen at [facility] on 07/08 and transferred to [facility] for GI evaluation and treatment of possible [...] IR Mediport Placement 03/23/2024 Cely Schmitt PA [facility] INTERVENTIONL RAD MAMMO US BIOPSY LEFT Left 03/26/2024 Mammo Us Biopsy Left 03/26/2024 Ana Weber MD [facility] RAD MAMMOGRAPHY SPLENECTOMY Social History: Patient lives in an independent prison facility. Her brother lives closeby. Home Setup: no stairs, tub shower, grab bars near the shower. No shower chair. Baseline ADL/Mobility: IND with all ADL/IADL tasks, no device used. 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 [...] IND, seated EOB Footwear: IND to don/doff wafer fabricator socks. Bathing: IND for UB sponge bath. Toileting: Transfer: IND Hygiene: IND, some incontinence, pt currently straight catheterizing. [facility] AM-PAC 6 Clicks Daily Activity Inpatient Short [...] (OT): Monitor Total Minutes, Occupational Therapy: 18 (([phone] eval)) OT Evaluation Code Rationale: Diagnosis & Pertinent Co-Morbidities affecting Plan of Care: see PMHx Occupational Profile & Client History: Brief Expanded Extensive X Assessment of Occupational Performance: 1-3 performance deficits X 3-5 performance deficits 5 + performance deficits Clinical Decision Making: Low Moderate High X Clinical decision making of moderate complexity using standardized patient assessment instrument and measurable assessment of functional outcome. Pager: [phone] Amelia Rowland OT 07/09/2024 Occupational Therapy Rehabilitation [...] -- -- 73 -- -- -- -- 07/10/242005 36.3 ??C (97.3 ??F) 75 bpm -- [...] PAF on Eliquis. She was seen at [facility] on 07/08 and transferred to [facility] for GI evaluation and treatment of possible [...] IR Mediport Placement 03/23/2024 Cely Schmitt PA [facility] INTERVENTIONL RAD MAMMO US BIOPSY LEFT Left 03/26/2024 Mammo Us Biopsy Left 03/26/2024 Ana Weber MD [facility] RAD MAMMOGRAPHY SPLENECTOMY Family History: Family History [...] by mouth as needed for Pain (Please scholarship counselor patienton equal parts benadryl and Maalox.). [...] Diet NPO @ midnight DVT prophylaxis: Hold captain airline pilot apixaban, SCDs Diet: NPO sips with meds @ midnight Elevated alk phos - Alk phos 4,700 Check ggt CMP in AM, trend ASCVD with h/o UT and PCI - Follows with Dr. Montenegro Continue captain airline pilot statin, plavix Ischemic cardiomyopathy Continue captain airline pilot torsemide Non-rheumatic aortic valve stenosis - S/p Edd 2021 Continue captain airline pilot plavix as above Bipolar disorder Continue captain airline pilot lamictal, seroquel JONATHAN - Crea: 5.7, BUN 43 on 07/08. 2/ to decreased PO intake Renally dose medication Start IV fluid resuscitation Trend renal indices Hypothyroidism - Continue captain airline pilot synthroid GERD Continue captain airline pilot PPI PAF - Hold captain airline pilot Eliquis Continue captain airline pilot metoprolol Malignant neoplasm of upper-outer quadrant of left breast in female, estrogen receptor negative - Follows with Dr. Prater Hold captain airline pilot percocet Continue captain airline pilot baclofen Pain control: Start Tylenol, oxycodone Diet: Sips and Chips (Give Meds) Current DVT: DOAC SCD, SCD Code status: Attempt Cardiopulmonary Resuscitation - Inpatient Disposition: TBD Extended Emergency Contact Information Primary Emergency Contact: [place] [address] [facility] Mobile Relation: Brother/Wroitq-mh-jxm Srikanth Patel MD, Hospital Medicine Pager: [phone] 07/09/2024 documented in this encounter Miscellaneous Notes * Care Management - Amalia Lloyd - 07/16/2024 1:37 PM EDTSummary: Discharge Ride Net Lead Developer scheduled a medicaid discharge ride with [facility] ([phone]). Research And Development Chemist will continuous pickling line pickler patient at 3:00pm at entrance #2. Research And Development Chemist's name is Chelsea and she drives a [...] have. Alternately, during off-hours you may call [phone] to contact a pharmacist. * Consult Note - Truman Mayer MD - 07/13/2024 4:50 PM EDT Nephrology Consult Note Oksana Betancourt [id number] 1965 ID: [id number] YO F with history of CAD s/p CRIS x7, AV stenosis s/p AVR HFpEF, hypothyroidism, PAF on Eliquis, hx of Hodgkin's lymphoma in her 20s s/p mantle radiation therapy, and triple negative breast cancer with known met to axillary LN planning bilateral mastectomy (Dx 02/10/24, s/p 4 cycles of markus-adjuvant Jkppl-ubol-xmwnqfdtcudqi) who is admitted with severe nausea, vomiting, [...] IR Mediport Placement 03/23/2024 Cely Schmitt PA [facility] INTERVENTIONL RAD MAMMO US BIOPSY LEFT Left 03/26/2024 Mammo Us Biopsy Left 03/26/2024 Ana Weber MD [facility] RAD MAMMOGRAPHY PRO ENDOSCOPIC US EXAM, ESOPH N/A 07/11/2024 UPPER EUS- ENDOSCOPIC ULTRASOUND (WRVU 3.47) performed by Davie Swenson MD at [facility] ENDOSCOPY SPLENECTOMY Family History: Family History Problem [...] (Dx 02/10/24, s/p 4cycles of markus- adjuvant Klgjk-todz-fmrmokjvoucvb) who is admitted with severe nausea, vomiting, [...] to follow. Please contact me at phone: [phone] or pager: [phone] with any questions. Truman Mayre MD Nephrology & Hypertension Fellow * Consult Note - Fernando Clarke, [facility] - 07/13/2024 7:24 AM EDT Vancomycin Note. On intermittent dosing (~750 mg per levels). Day 4/5 of vanc Level this AM 22.5 Goal 15-20 Will repeat level this afternoon at 1500. Then likely will repeat 500 mg x 1 dose later today if appropriate. Fernando Clarke [facility] Pager: [phone] * Care Management - Key Babin RN [...] alone (states he brother lives in same [facility] apartments from [place]). Current Living Arrangements: home/apartment/condo. Accessibility Concerns: 0 CARMINE. Current Functional Ability: Independent DME used at home: grab bar - tub/shower, grab bar - toilet DME Needed at Discharge: No Patient is insured through: Primary Insurance: AARP MANAGED MEDICARE Payor: AAR MANAGED MEDICARE / Plan: [facility] MANAGED MEDICARE COMPLETE / Product Type: *No Product type* / Secondary Insurance: MEDICAID [place] Last Physical Therapy Recommendation: with Last Occupational Therapy Recommendation: home with None Plan for discharge is: Home w/ Services Outpatient Agency/Support Group Needs: Homecare agency Home Health Services: Physical Therapy, Medication checks, Registered Nurse Agency Referrals: [facility]. [address] [place] [address] Transportation: family or friend will provide Barriers to discharge: Global: None Plan going forward: Awaiting PT evaluation. Oncology consult: no further workup at this time, evaluate lab values, VS, pain, and PO intake and tolerance. Anticipated Date of Discharge: 07/14/2024 Key Babin RN [phone] Pager [phone] * Consult Note - Fernando Clarke [facility] - 07/12/2024 7:11 AM EDT Clinical Pharmacist Note-Vanc Oksana Betancourt [id number] 1965 Oksana Betancourt is a 58 y.o. [...] 5.5) Labs: Vancomycin: No results found for: JOHNOTR Creatinine clearance: Creatinine (mg/dL) Date Value 07/12/2024 2.16 (H) 04/17/2024 1.36 (H) Recommendations: Continue per level dosing. Level this AM slightly over 20 but dose last night given around 1800. Repeat 750 mg dose now and repeat level tomorrow AM ordered. Fernando Clarke [facility] Pager [phone] * Plan of Care - Fernando Hazel [...] Swenson MD - 07/11/2024 3:47 PM EDT Operative Note Patient Name: Oksana Betancourt : [id number] MR#: [id number] Case Date: 07/11/2024 Surgeon: Surgeons and Role: * Davie Swenson MD - Primary Procedure(s): UPPER EUS- ENDOSCOPIC ULTRASOUND (WRVU 3.47) Please see Provation report for details. * Consult Note - Jr Fulton MD - 07/11/2024 2:46 PM EDT Images from the original note were not included. [facility] Department of Surgery, Surgical Oncology Inpatient Consult [...] clopidogrel and apixaban. Unfortunately, she presented to [facility] with right upper abdominal pain, nausea, and vomiting on 07/08and was transferred to [facility] and admitted on 07/09 with a possible [...] clavicle was noted on chest x-ray at [facility], and oncology has been consulted for guidance [...] IR Mediport Placement 03/23/2024 Cely Schmitt PA [facility] INTERVENTIONL RAD MAMMO US BIOPSY LEFT Left 03/26/2024 Mammo Us Biopsy Left 03/26/2024 Ana Weber MD [facility] RAD MAMMOGRAPHY SPLENECTOMY Medications: No current facility-administered [...] by mouth as needed for Pain (Please scholarship counselor patienton equal parts benadryl and Maalox.). [...] Procedure Component Value - Date/Time Urine culture [[id number]] (Abnormal) (Susceptibility) Collected: 07/09/24 09 Lab Status: [...] Jr Fulton MD. Signed: Lukas Shore MD [facility] Surgical Oncology Service Team Pager #[phone] 07/11/24 2:46 PM Thank you for this consult. If you have any questions regarding this consult, please page #[phone]. 07/11/24 Surgery staff I examined Oksana this [...] Advance Directive Patient completed Advance Directive with Net Lead Developer. Lizeth Menard ([id number]) named primary agent. Juanito Rowland (son) named secondary agent. * Consult Note - Duy Blackwood MD - 07/11/2024 8:24 AM EDT Images from the original note were not included. [facility] Medicine Medical Oncology [place] [id number] MEDICAL ONCOLOGY CONSULT REASON FOR CONSULT: Sclerotic [...] a sclerotic lesion in her right clavicle. Oksana underwent CXR at [facility] prior to transfer [...] Leukocytes, Urine Dipstick Small (A) Negative Specific Ione Urine Automated 1.019 1.005 - 1.030 Appearance, [...] Complete Result Value Ref Range WORKSTATION ID [id number] US Abdomen Limited Result Value Ref Range WORKSTATION ID [id number] Basic Metabolic Panel Result Value Ref Range [...] Contrast Result Value Ref Range WORKSTATION ID [id number] Phosphorus Result Value Ref Range Phosphorus 3.7 [...] who have questions please contact the health personal care attendant that requested your imaging first. Electronically signed by: Kristine Doyle MD, [facility] ([phone]), at 07/10/2024 6:36 AM US Abdomen Limited Result Date: 07/09/2024 1. Normal [...] David Alvarado MD at 07/09/2024 11:45 AM Electronically signed by: David Alvarado MD, [facility] ([phone]), at 07/09/2024 11:45 AMThank you for letting us participate in the care of this patient. If you are a health care provider and have any questions regarding this report, please contact the number above. For patients who have questions, please contact the health personal care attendant that requested your imaging first. David Torre, Staff Physician Electronically Signed Final Report 07/09/2024 11:53 am US Retroperitoneal Complete Result Date: 07/09/2024 1. Slightly limited exam with no evidence of hydronephrosis or nephrolithiasis. 2. Stable mild right renal atrophy. I have personally reviewed the image(s) and the resident's interpretation and agree with the findings, David Alvarado MD at 07/09/2024 11:07 AM Electronically signed by: David Alvarado MD, [facility] ([phone]), at 07/09/2024 11:07 AM Thank you for letting us participate in the care of this patient. If you are a health care provider and have any questionsregarding this report, please contact the number above. For patients who have questions, please contact the health personal care attendant that requested your imaging first. David Alvarado, [...] cancer originally diagnosed on 02/10/2024, s/p neoadjuvant avjbn-oyxcw-oftryp x 4 and planning for bilateral mastectomy. [...] of infection. 1) Santos witt al, PMID [id number] 2) Rachael witt al, PMID [id number] Recs: - consider radiology review of previous [...] much appreciated Una Ken MD Medical Oncology [facility] Cancer [place] PlatemakerKnifer Up, [facility] [employer] Office Cancer.[facility] * Consult Note - Alex Owens [facility] - 07/10/2024 6:26 PM EDT Clinical Pharmacist Note - VancFD Oksana Betancourt [id number] 1965 Oksana Betancourt is a 58 y.o. [...] any questions you may have. Alternately,during off-hours (-) you may call [phone] to contact a pharmacist. ALEX OWENS RPH [...] paroxysmal A-fib on Eliquis who presents from [facility] on 07/08 with abdominal pain, nausea and [...] paroxysmal A-fib on Eliquis who presents from [facility] on 07/08 with abdominal pain, nausea and [...] as outlined above was discussed with Dr. Helelr. Recommendations were discussed with primary team. Cely Menchaca M.D. Fellow in Gastroenterology and Hepatology Pager #[phone] 07/09/2024 Associated attestation - Juanito Heller MD [...] negative. Juanito Heller MD Section of Gastroenterology [facility] * Initial Assessments - Key Babin RN - 07/09/2024 10:19 AM EDT Office of Care Management Initial Assessment Key Babin RN reviewed record and discussed patient with Care Team. Source of Information: Team, bedside nurse, medical record, and Patient CM Introduced self/reviewed role; services accepted. Admitted From: Transfer from another hospital Location[facility] Reason for Hospitalization: nausea/vomiting Past medical History: Past Medical History: Diagnosis Date CAD (coronary artery disease) Cancer COPD (chronic obstructive pulmonary disease) GERD (gastroesophageal reflux disease) Paroxysmal A-fib Hospitalizations Within the Past 30 Days: no previous admission in last 30 days Current Decision-Making Capacity: Self If AD's have not been completed the following surrogate would be surrogate decision maker per [place] surrogate decision making law. (Only good for 180 days) Any patient receiving care in [place] must abide by [place] law. The hierarchy for surrogate decision making [...] (i) The agent with financial power of traffic law attorney or a conservator appointed in accordance [...] alone (states he brother lives in same [facility] apartments from [place]). Current Living Arrangements: home/apartment/condo. Accessibility Concerns:0 CARMINE. In the last 12 months, was there a time when you were not able to pay the mortgage or rent on time?: No At any time in the past 12 months, were you homeless or living in a prison (including now)?: No In the past 12 months has the [employer], gas, oil, or water Minted threatened to shut off services in your [...] bar - toilet Home Address confirmed as: [address] [facility] [address] Social & Family Supports: Brother. All names listed below confirmed with patient as current andcorrect Extended Emergency Contact Information Primary Emergency Contact: [place] [address] [facility] Mobile Relation: Brother/Cbcsrw-mx-lgb Current Care Provided by: self Provides Primary [...] Patient states she is on service with [facility] for BP checks and PT. Health/Prescription Coverage: Primary Insurance: AARP MANAGED MEDICARE Payor: AARP MANAGED MEDICARE / Plan: AARP [facility] MANAGED MEDICARE COMPLETE / Product Type: *No Product type* / Secondary Insurance: MEDICAID [place] ONLY if patient has Medicare A&B - Does this patient have secondary insurance?: Yes ; Prescription Coverage: Yes Preferred Pharmacy: [facility] - [facility] [place] - [address] [facility] [address] [facility] [address] Status: Patient is a : No Primary Care Provider confirmed: Gaudencio Scales DO [phone] Patient/Caregiver Goals of Treatment: Potential Needs for Transition of Care: home health care Agency Referrals: I have met with the patient to: discuss discharge planning needs. provide the [facility], Office of Care Management letter from the Ordnance Artificer pertaining to rehab referrals. provide a letter describing our affiliations within the [facility] and educate about their right to choose where referrals are sent. provide a list of Home Health Agencies / Durable Medical Equipment vendors which serve their preferred geographic area. provided patient with [facility] Star Quality Rating handout. They have requested referrals to: [facility]. [address] [place] [address] Note routed to a Net Lead Developer who will communicate referrals to facilities and [...] of care as indicated. Key Babin RN [phone] Pager [phone] * Plan of Care - Lio Wiley [...] 8:40 AM EST Hospital Encounter Mammography at [place] [phone] Jr Fulton MD [facility] [place] [address] 07/30/2024 8:45 AM EST Appointment Mammography at [place] [phone] Jr Fulton MD [facility] [place] [address] 07/30/2024 9:20 AM EST Hospital [place] [phone] Jr Fulton MD [facility] [address] [place] [address] 07/30/2024 10:51 AM EST Hospital Encounter [place] [place] [address] Jr Fulton MD [facility] [place] [address] 07/30/2024 10:51 AM EST Anesthesia Event [facility] [place] [address] eMgan [place] [address] 07/30/2024 10:51 AM EST - 07/30/2024 1:11 PM EST Surgery [place]patient [place] [phone] Jr Fulton MD [facility] [place] [place] [address] MASTECTOMY PARTIAL (WRVU 10.13) 08/22/2024 2:00 PM EST Office Visit General Surgery at [address] Cindy Pierce APRN [facility] [place] [address] 08/22/2024 3:00 PM EST Office Visit Hematology [place] [address] Soo Lyn MD [facility] [place] [address] 08/27/2024 9:30 AM EST Scheduled View Only Radiation Oncology at [address] [phone] St Josr Whitley 08/27/2024 10:00 AM EST Office Visit Radiation Oncology at [address] [phone] Paradise Prado MD [facility] [place] [address] 2024 1:00 PM EDT Office Visit Cardiology at [address] [place] [address] Ham Montenegro MD [facility] [place] [address] Pending Results Name Type Priority Associated Diagnoses [...] 3:23 AM EDT VANCOMYCIN LEVEL, RANDOM Timed 11:04 AM EDT CBC (WITH DIFF) Routine 07/14/2024 12:18 AM EDT PHOSPHORUS Routine 07/14/2024 12:18 AM EDT COMPREHENSIVE METABOLIC PANEL Routine 12:18 AM EDT VANCOMYCIN LEVEL, RANDOM Timed 4:07 PM EDT PROTEIN, TOTAL ELECTROPHORES IS (PERFROMABLE) Routine 07/13/2024 12:07 PM EDT PEP, SERUM (PERFORMABLE) Routine 12:07 PM EDT IMMUNOGLOBULIN FREE LIGHT CHAINS, [...] 4:10 AM EDT Endoscopic Us Exam, Esoph ([id number]) 07/11/2024 3:40 PM EDT Elevated LFT's VANCOMYCIN [...] AM EDT URINALYSIS BEAKER MICROSCPIC REFLEX EXAM ([facility]) Routine 07/09/2024 9:25 AM EDT URINALYSIS MICROSCOPIC [...] Mid-thigh (07/23/2024 12:17 PM EST) WORKSTATION ID [id number] DH RAD Anatomical Region Laterality Modality Positron Emissio [...] who have questions please contact the health personal care attendant that requested your imaging first. ? Narrative 07/26/2024 10:01 AM EST EXAMINATION: NM PET CT STANDARD SKULL BASE TO MID-THIGH CLINICAL HISTORY: 58F with sclerotic lesion of clavicle in setting of biopsy proven TNBC C50.412, Malignant neoplasm of upper-outer quadrant of left female breast - Z17.1, Estrogen receptor negative status (ER-) TECHNIQUE: Following IV injection of 22-wfqlkk-2-deoxyglucose (FDG) a standard uptake of approximately 60 [...] status (ER-) TECHNIQUE: Following IV injection of 26-uujlyw-8-deoxyglucose (FDG) astandard uptake of approximately 60 minutes, [...] patients who have questions please contactthe health personal care attendant that requested your imaging first. Electronically signed by: [facility] ([phone]),at 07/26/2024 10:01 AM Sandra Ken MD IMG PET ORDERABLES * Scan, Peripheral Blood (07/16/2024 4:36 AM EDT) RBC Morphology Abnormal 07/16/2024 5:41 AM EDT [facility] Platelet Estimate Normal Normal 07/16/2024 5:41 AM EDT [facility] Ovalocytes 1-5 /HPF 07/16/2024 5:41 AM EDT [facility] Target Cell 6-10 /HPF 07/16/2024 5:41 AM EDT [facility] Henry cells 1-5 /HPF 07/16/2024 5:41 AM EDT [facility] HJB Present 07/16/2024 5:41 AM EDT [facility] Plat, Giant <1 /HPF 07/16/2024 5:[facility] Blood VENOUS BLOOD SPECIMEN / Unknown IP Care Team Draw / Unknown 07/16/2024 4:36 AM EDT 07/16/2024 4:46 AM EDT Elda Gaxiola MD HEMATOLOGY ORDERABLE S [facility] [address] [place] [address] * (ABNORMAL) Comprehensive metabolic panel (07/16/2024 4:36 AM EDT) Glucose 100 65 - 199 mg/dL 07/16/2024 5:29 AM EDT [facility] Comment:Glucose Concentratio n >=200 mg/dL plus symptoms is consistent with Diabetes Mellitus. Blood Urea Nitrogen 22(H) 8 - 18 mg/dL 07/16/2024 5:29 AM EDT [facility] Creatinine 1.65(H) 0.70 - 1.20 mg/dL 07/16/2024 5:29 AM EDT [facility] Sodium 140 135 - 145 mMol/L 07/16/2024 5:29 AM EDT [facility] Potassium 4.3 3.5 - 5.0 mMol/L 07/16/2024 5:29 AM EDT [facility] Chloride 101 98 - 107 mMol/L 07/16/2024 5:29 AM EDT [facility] Carbon Dioxide 26 22 - 31 mMol/L 07/16/2024 5:29 AM EDT [facility] Anion Gap 13 5 - 15 mMol/L 07/16/2024 5:29 AM EDT [facility] Calcium 10.0 8.5 - 10.5 mg/dL 07/16/2024 5:29 AM EDT [facility] Protein, Total 8.4(H) 6.1 - 8.0 g/dL 07/16/2024 5:29 AM EDT [facility] Albumin 3.4 3.2 - 5.2 g/dL 07/16/2024 5:29 AM EDT [facility] Aspartate Aminotransferase 207(H) <=30 unit/L 07/16/2024 5:29 AM EDT [facility] Alanine Aminotransferase 99(H) 0 - 30 unit/L 07/16/2024 5:29 AM EDT [facility] Alkaline Phosphatase 2,834(H) 35 - 105 unit/L 07/16/2024 5:29 AM EDT [facility] Bilirubin, Total 1.4(H) <=1.3 mg/dL 07/16/2024 5:29 AM EDT [facility] Est Glomerular Filtration Rate - Female 35 mL/min/1. 73 m?? 07/16/2024 5:29 AM EDT [facility] Comment: This patient's estimated [...] Patel MD CHEMISTRY ORDERABLES Performing Organization Address City/State/[facility] Co de Phone Number [facility] [place] [address] * (ABNORMAL) CBC (with Diff) (07/16/2024 4:36 AM EDT) White Blood Cell 9.36 4.00 - 9.50 x10(3)/mc L 07/16/2024 5:41 AM EDT [facility] Red Blood Cell 2.92(L) 4.00 - 5.21 x10(6)/mc L 07/16/2024 5:41 AM EDT [facility] Hemoglobin 8.8(L) 11.7 - 15.5 g/dL 07/16/2024 5:41 AM [facility] Hematocrit 27.1(L) 35.7 - 45.8 % 07/16/2024 5:41 AM [facility] Mean Cell Volume 92.8 82.6 - 94.4 fL 07/16/2024 5:41 AM [facility] Mean Cell Hemoglobin 30.1 27.1 - 32.0 pg 07/16/2024 5:41 AM [facility] Mean Cell Hemoglobin Concentration 32.5 [...] - 0.90 x10(3)/mc L 07/16/2024 5:41 AM [facility] Comment:This is an appended report. These results have been appended to a previously preliminary verified report. Eos % 6.6 % 07/16/2024 5:41 AM [facility] Comment:This is an appended report. These results have been appended to a previously preliminary verified report. Eos Absolute 0.62(H) 0.00 - 0.40 x10(3)/mc L 07/16/2024 5:41 AM [facility] Comment:This is an appended report. These results have been appended to a previously preliminary verified report. Basophil % 0.5 % 07/16/2024 5:41 AM [facility] Comment:This is an appended report. These results have been appended to a previously preliminary verified report. Baso Absolute 0.05 0.00 - 0.10 x10(3)/mc L 07/16/2024 5:41 AM [facility] Comment:This is an appended report. These results have been appended to a previously preliminary verified report. Immature Gran % 0.2 % 5:41 AM [facility] Comment:This is an appended report. These results have been appended to a previously preliminary verified report. Immature Gran Absolute <0.04 0.00 - 0.04 x10(3)/mc L 07/16/2024 5:41 AM EDT [facility] Comment:This is an appended report. These results have been appended to a previously preliminary verified report. Blood VENOUS BLOOD SPECIMEN / Unknown IP Care Team Draw / Unknown 07/16/2024 4:36 AM EDT 07/16/2024 4:46 AM EDT Elda Gaxiola MD HEMATOLOGY ORDERABLE S [facility] [place] [address] * (ABNORMAL) Comprehensive metabolic panel (07/15/2024 3:23 AM EDT) Glucose 112 65 - 199 mg/dL 07/15/2024 4:31 AM EDT [facility] Comment:Glucose Concentratio n >=200 mg/dL plus symptoms is consistent with Diabetes Mellitus. Blood Urea Nitrogen 22(H) 8 - 18 mg/dL 07/15/2024 4:31 AM EDT [facility] Creatinine 1.80(H) 0.70 - 1.20 mg/dL 07/15/2024 4:31 AM EDT [facility] Sodium 139 135 - 145 mMol/L 07/15/2024 4:31 AM EDT [facility] Potassium 3.9 3.5 - 5.0 mMol/L 07/15/2024 4:31 AM EDT [facility] Chloride 98 98 - 107 mMol/L 07/15/2024 4:31 [facility] Carbon Dioxide 26 22 - 31 mMol/L 07/15/2024 4:31 AM [facility] Anion Gap 15 5 - 15 mMol/L 07/15/2024 4:31 AM [facility] Calcium 9.6 8.5 - 10.5 mg/dL 07/15/2024 4:31 AM EDT [facility] Protein, Total 8.2(H) 6.1 - 8.0 g/dL 07/15/2024 4:31 AM [facility] Albumin 3.1(L) 3.2 - 5.2 g/dL 07/15/2024 4:31 AM [facility] Aspartate Aminotransferase 201(H) <=30 unit/L 07/15/2024 4:31 AM [facility] Alanine Aminotransferase 93(H) 0 - 30 unit/L 07/15/2024 4:31 AM [facility] Alkaline Phosphatase 2,850(H) 35 - 105 unit/L 07/15/2024 4:31 AM [facility] Bilirubin, Total 1.3 <=1.3 mg/dL 07/15/2024 4:31 AM [facility] Est Glomerular Filtration Rate - Female 32 mL/min/1. 73 m?? 07/15/2024 4:31 AM [facility] AM EDT Srikanth Patel MD CHEMISTRY ORDERABLES [facility] [place] [address] * (ABNORMAL) CBC (with Diff) (07/15/2024 3:23 AM EDT) Pathologist [facility] White Blood Cell 8.05 4.00 - 9.50 x10(3)/mc L 07/15/2024 3:55 AM [facility] Red Blood Cell 2.85(L) 4.00 - 5.21 x10(6)/mc L 07/15/2024 3:55 AM [facility] Hemoglobin 8.4(L) 11.7 - 15.5 g/dL 07/15/2024 3:55 AM [facility] Hematocrit 26.3(L) 35.7 - 45.8 % [...] - 6.10 x10(3)/mc L 07/15/2024 3:55 AM EDT [facility] Lymph % 39.5 % 07/15/2024 3:55 AM EDT [facility] Lymph Absolute 3.18 0.90 - 3.20 x10(3)/mc L 07/15/2024 3:55 AM EDT [facility] Monocyte % 8.1 % 07/15/2024 3:55 AM EDT [facility] Monocyte Absolute 0.65 0.30 - 0.90 x10(3)/mc L 07/15/2024 3:55 AM EDT [facility] Eos % 8.0 % 07/15/2024 3:55 AM EDT [facility] Eos Absolute 0.64(H) 0.00 - 0.40 x10(3)/mc L 07/15/2024 3:55 AM EDT [facility] Basophil % 0.5 % 07/15/2024 3:55 AM EDT [facility] Baso Absolute 0.04 0.00 - 0.10 x10(3)/mc L 07/15/2024 3:55 AM EDT [facility] Immature Gran % 0.2 % 3:55 AM EDT [facility] Immature Gran Absolute <0.04 0.00 - 0.04 x10(3)/mc L 07/15/2024 3:55 AM EDT [facility] Blood VENOUS BLOOD SPECIMEN / Unknown IP Care Team Draw / Unknown 07/15/2024 3:23 AM EDT 07/15/2024 3:42 AM EDT Elda Gaxiola MD HEMATOLOGY ORDERABLE S [facility] [place] [address] * Vancomycin Level, Random (07/14/2024 11:04 AM EDT) Vancomycin, Random 17.4 mg/L 2023 11:42 AM EDT [facility] Comment:This level is for de termination of the patient's vancomycin qknu-muhas-hwf-curve (AUC) value. Contact the inpatient pharmacy for interpretation. Blood VENOUS BLOOD SPECIMEN / Unknown IP Care Team Draw / Unknown 07/14/2024 11:04 AM EDT 07/14/2024 11:10 AM EDT Elda Gaxiola MD CHEMISTRY ORDERABLES [facility] [place] [address] * (ABNORMAL) Comprehensive metabolic panel (07/14/2024 12:18 AM EDT) Glucose 119 65 - 199 mg/dL 07/14/2024 1:19 AM EDT [facility] Comment:Glucose Concentratio n >=200 [...] 3.5 - 5.0 mMol/L 07/14/2024 1:19 AM [facility] Chloride 96(L) 98 - 107 mMol/L 07/14/2024 1:19 AM [facility] Carbon Dioxide 30 22 - 31 mMol/L 07/14/2024 1:19 AM [facility] Anion Gap 12 5 - 15 mMol/L 07/14/2024 1:19 AM [facility] Calcium 9.3 8.5 - 10.5 mg/dL 07/14/2024 1:19 AM EDT [facility] Protein, Total 7.9 6.1 - 8.0 g/dL 07/14/2024 1:19 AM T [facility] Albumin 3.2 3.2 - 5.2 g/dL 07/14/2024 1:19 AM [facility] Aspartate Aminotransferase 202(H) <=30 unit/L 07/14/2024 1:19 AM EDT [facility] Alanine Aminotransferase 89(H) 0 - 30 unit/L 07/14/2024 1:19 AM [facility] Alkaline Phosphatase 2,893(H) 35 - 105 unit/L 07/14/2024 1:19 AM [facility] Bilirubin, Total 1.2 <=1.3 mg/dL 07/14/2024 1:19 AM [facility] Est Glomerular Filtration Rate - Female 27 mL/min/1. 73 m?? 07/14/2024 1:19 AM [facility] AM EDT Srikanth Patel MD CHEMISTRY ORDERABLES [facility] [place] [address] * (ABNORMAL) CBC (with Diff) (07/14/2024 12:18 AM EDT) White Blood Cell 8.50 4.00 - 9.50 x10(3)/mc L 07/14/2024 12:35 AM [facility] Red Blood Cell 2.78(L) 4.00 - 5.21 x10(6)/mc L 07/14/2024 12:35 AM [facility] Hemoglobin 8.4(L) 11.7 - 15.5 g/dL 07/14/2024 12:35 AM [facility] Hematocrit 25.6(L) 35.7 - 45.8 % [...] Neutrophil % 49.9 % 07/14/2024 12:35 AM EDT [facility] Neutrophil Absolute (ANC) - Automated 4.25 1.70 - 6.10 x10(3)/mc L 07/14/2024 12:35 AM EDT [facility] Lymph % 36.2 % 07/14/2024 12:35 AM EDT [facility] Lymph Absolute 3.08 0.90 - 3.20 x10(3)/mc L 07/14/2024 12:35 AM EDT [facility] Monocyte % 7.1 % 07/14/2024 12:35 AM EDT [facility] Monocyte Absolute 0.60 0.30 - 0.90 x10(3)/mc L 07/14/2024 12:35 AM EDT [facility] Eos % 6.0 % 07/14/2024 12:35 AM EDT [facility] Eos Absolute 0.51(H) 0.00 - 0.40 x10(3)/mc L 07/14/2024 12:35 AM EDT [facility] Basophil % 0.4 % 07/14/2024 12:35 AM EDT [facility] Baso Absolute <0.04 0.00 - 0.10 x10(3)/mc L 07/14/2024 12:35 AM EDT [facility] Immature Gran % 0.4 % 12:35 AM EDT [facility] Immature Gran Absolute <0.04 0.00 - 0.04 x10(3)/mc L 07/14/2024 12:35 AM EDT [facility] Blood VENOUS BLOOD SPECIMEN / Unknown IP Care Team Draw / Unknown 07/14/2024 12:18 AM EDT 07/14/2024 12:30 AM EDT Elda Gaxiola MD HEMATOLOGY ORDERABLE S [facility] [place] [address] * Phosphorus (07/14/2024 12:18 AM EDT) Pathologist [facility] Phosphorus 3.0 2.5 - 4.5 mg/dL 07/14/2024 1:00 AM EDT [facility] Blood VENOUS BLOOD SPECIMEN / Unknown IP Care Team Draw / Unknown 07/14/2024 12:18 AM EDT 07/14/2024 12:30 AM EDT Elda Gaxiola MD CHEMISTRY ORDERABLES [facility] [place] [address] * Vancomycin Level, Random (07/13/2024 4:07 PM EDT) [facility] Vancomycin, Random 16.9 mg/L 2023 4:49 PM EDT [facility] Comment:This level is for de termination of the patient's vancomycin lkha-snlzx-wsy-curve (AUC) value. Contact the inpatient pharmacy for interpretation. Blood VENOUS BLOOD SPECIMEN / Unknown IP Care Team Draw / Unknown 07/13/2024 4:07 PM EDT 07/13/2024 4:15 PM EDT Elda Gaxiola MD CHEMISTRY ORDERABLES Performing Organization Address City/[facility]/ZIP Co de Phone Number [facility] [place] [address] * (ABNORMAL) Immunoglobulins, Quantitative (07/13/2024 12:07 PM EDT) Pathologist [facility] IgG 1,460 700 - 1,600 mg/dL 07/17/2024 12:27 PM EDT [facility] IgA 492(H) 70 - 400 mg/dL 07/17/2024 12:27 PM EDT [facility] IgM 133 40 - 230 mg/dL 07/17/2024 12:27 PM EDT [facility] Blood VENOUS BLOOD SPECIMEN / Unknown IP Care Team Draw / Unknown 07/13/2024 12:07 PM EDT 07/13/2024 12:28 PM EDT Elda Gaxiola MD CHEMISTRY ORDERABLES Performing Organization Address City/[facility]/ZIP Co de Phone Number [facility] [place] [address] * Immunofixation Electrophoresis, Serum (07/13/2024 12:07 PM EDT) Immunofixation Interpretation, Serum IgG lambda restriction seen. Clinical significance of this finding is not clear. Suggest repeat study in 6-12 months. 07/18/2024 4:37 PM EDT [facility] Signing Pathologist JIMENEZ ROTHMAN MD 07/18/2024 4:37 PM EDT [facility] Blood VENOUS BLOOD SPECIMEN / Unknown IP Care Team Draw / Unknown 07/13/2024 12:07 PM EDT 07/13/2024 12:28 PM EDT Elda Gaxiola MD CHEMISTRY ORDERABLES Performing Organization Address City/[facility]/ZIP Co de Phone Number [facility] [place] [address] * (ABNORMAL) IgG 4 (07/13/2024 12:07 PM EDT) IgG 4 125.8(H) 3.9 - 86.4 mg/dL 07/17/2024 9:07 AM EDT [facility] Blood VENOUS BLOOD SPECIMEN / Unknown IP Care Team Draw / Unknown 07/13/2024 12:07 PM EDT 07/13/2024 12:28 PM EDT Elda Gaxiola MD IMMUNOLOGY ORDERABLE S Performing Organization Address City/[facility]/ZIP Co de Phone Number [facility] [place] [address] * Protein, Serum Electrophoresis (07/13/2024 12:07 PM EDT) Blood VENOUS BLOOD SPECIMEN / Unknown IP Care Team Draw / Unknown 07/13/2024 12:07 PM EDT 07/13/2024 12:28 PM EDT Elda Gaxiola MD URINE ORDERABLES Performing Organization Address City/[facility]/ZIP Co de Phone Number [facility] [place] [address] * (ABNORMAL) PEP, Serum (07/13/2024 12:07 PM EDT) Protein, Total 7.3 6.1 - 8.0 g/dL 07/17/2024 9:57 AM EDT [facility] Albumin Electrophoresis 2.96(L) 3.20 - 5.20 g/dL 07/17/2024 9:57 AM EDT [facility] Alpha 1 Globulin 0.43(H) 0.10 - 0.30 g/dL 07/17/2024 9:57 AM EDT [facility] Alpha 2 Globulin 1.56(H) 0.40 - 0.90 g/dL 07/17/2024 9:57 AM EDT [facility] Beta Globulin 0.83 0.50 - 1.00 g/dL 07/17/2024 9:57 AM EDT [facility] Gamma Globulin 1.51(H) 0.50 - 1.30 g/dL 07/17/2024 9:57 AM EDT [facility] M1 Band 07/17/2024 9:57 AM EDT [facility] Comment:Serum protein electr ophoresis shows a band that is a possible paraprotein. Immunofixation and quantitative immunoglobulin testing will be performed on this sample to verify that it is a monoclonal immunoglobulin. Blood VENOUS BLOOD SPECIMEN / Unknown IP Care Team Draw / Unknown 07/13/2024 12:07 PM EDT 07/13/2024 12:28 PM EDT Elda Gaxiola MD URINE ORDERABLES Performing Organization Address City/[facility]/ZIP Co de Phone Number [facility] [place] [address] * (ABNORMAL) Free Light Chains, Serum (07/13/2024 12:07 PM EDT) [place] Free Light Chain 12.70(H) 0.72 - 2.75 mg/dL 07/13/2024 1:38 PM EDT [facility] Lambda Free Light Chain 7.89(H) 0.57 - 2.15 mg/dL 07/13/2024 1:38 PM EDT [facility] [place]/Lambda FLC Ratio 1.6096 0.4000 - 2.5800 07/13/2024 1:38 PM EDT [facility] Blood VENOUS BLOOD SPECIMEN / Unknown IP Care Team Draw / Unknown 07/13/2024 12:07 PM EDT 07/13/2024 12:28 PM EDT Elda Gaxiola MD CHEMISTRY ORDERABLES [facility] [place] [address] * (ABNORMAL) C4 Complement (07/13/2024 12:07 PM EDT) Complement C4 73(H) 10 - 40 mg/dL 07/13/2024 1:01 PM EDT [facility] Blood VENOUS BLOOD SPECIMEN / Unknown IP Care Team Draw / Unknown 07/13/2024 12:07 PM EDT 07/13/2024 12:28 PM EDT Elda Gaxiola MD CHEMISTRY ORDERABLES [facility] [place] [address] * C3 Complement (07/13/2024 12:07 PM EDT) Complement C3 149 90 - 180 mg/dL 07/13/2024 1:01 PM EDT [facility] Blood VENOUS BLOOD SPECIMEN / Unknown IP Care Team Draw / Unknown 07/13/2024 12:07 PM EDT 07/13/2024 12:28 PM EDT Elda Gaxiola MD CHEMISTRY ORDERABLES Performing Organization Address [facility] Co de Phone Number [facility] [place] [address] * Protein, Urine Electrophoresis (07/13/2024 11:47 AM EDT) Urine URINE SPECIMEN / Unknown Non Blood Collection / Unknown 07/13/2024 11:47 AM EDT 07/13/2024 3:51 PM EDT Elda Gaxiola MD URINE ORDERABLES Performing Organization Address [facility] Phone Number [facility] [place] [address] * (ABNORMAL) PEP, Urine Random (07/13/2024 11:47 AM EDT) Albumin, Urine Electrophoresis 23 % total 07/18/2024 2:08 PM EDT [facility] Globulin, Random Urine 77 % total 07/18/2024 2:08 PM EDT [facility] M1 Band, Urine 07/18/2024 2:08 PM EDT [facility] Comment:There is no evidence of clonal free light chains in this patient's urine sample. Protein, Urine 38(H) 0 - 12 mg/dL 07/18/2024 2:08 PM EDT [facility] Urine URINE SPECIMEN / Unknown Non Blood Collection / Unknown 07/13/2024 11:47 AM EDT 07/13/2024 3:51 PM EDT Elda Gaxiola MD URINE ORDERABLES Performing Organization Address [facility] Co sc Phone Number [facility] [place] [address] * (ABNORMAL) Urinalysis Dipstick (07/13/2024 11:47 AM EDT) Glucose, Urine Dipstick Negative Negative 07/13/2024 4:03 PM [facility] Protein, Urine Dipstick 30 mg/dL(A) Negative 07/13/2024 4:03 PM [facility] Bilirubin, Urine Dipstick Negative Negative 07/13/2024 4:03 PM [facility] Comment:Clinical correlation required for positive Urine Bilirubin results as false positive may occur with some drugs and drug related products. If a false positive is suspected a serum total bilirubin should be considered if clinically indicated. Urobilinogen, Urine Dipstick Normal Normal, 0.2 mg/dL, 1.0 mg/dL 07/13/2024 4:03 PM [facility] pH, Urine (dipstick) 8.0 5.0 - 8.0 07/13/2024 4:03 PM [facility] Blood, Urine Dipstick Negative Negative 07/13/2024 4:03 PM [facility] Ketone, Urine Dipstick Negative Negative 07/13/2024 4:03 PM [facility] Nitrite, Urine Dipstick Negative Negative 07/13/2024 4:03 PM [facility] Leukocytes, Urine Dipstick Negative Negative 07/13/2024 4:03 PM [facility] Specific Ione Urine Automated 1.011 1.005 - 1.030 07/13/2024 4:03 PM [facility] Appearance, Urine Dipstick Clear Clear 07/13/2024 4:03 PM [facility] Color, Urine Dipstick Yellow Yellow, Dark Yellow 07/13/2024 4:03 PM [facility] CULTURE ADDED? 07/13/2024 4:03 PM [facility] Urine URINE SPECIMEN OBTAINED BY CLEAN CATCH PROCEDURE / Unknown Non Blood Collection / Unknown 07/13/2024 11:47 AM EDT 07/13/2024 3:51 PM EDT Elda Gaxiola MD URINE ORDERABLES Performing Organization Address [facility]/ZIP Co de Phone Number [facility] [place] [address] * (ABNORMAL) Protein/Creatinine Ratio, urine (07/13/2024 11:47 AM EDT) Protein, Urine 38(H) 0 - 12 mg/dL 07/13/2024 4:59 PM EDT [facility] Creatinine, Urine 39 mg/dL 07/13/2024 4:59 PM EDT [facility] Protein / Creatinine Ratio, Urine 1.0 ratio 07/13/2024 4:59 PM EDT [facility] Urine URINE SPECIMEN / Unknown Non Blood Collection / Unknown 07/13/2024 11:47 AM EDT 07/13/2024 3:51 PM EDT Elda Gaxiola MD URINE ORDERABLES Performing Organization Address [facility] Co de Phone Number [facility] [place] [address] * (ABNORMAL) U Albumin/Cre Ratio (07/13/2024 11:47 AM EDT) Albumin, Urine 46.2 mg/L 07/13/2024 4:59 PM EDT [facility] Creatinine, Urine 39 mg/dL 024 4:59 PM EDT [facility] Albumin / Creatinine Ratio, Urine 118(H) 0 - 29 mcg/mg Cr 07/13/2024 4:59 PM EDT [facility] Comment: Reference Ranges: ?? <30 mcg/mg: [...] PM EDT Elda Gaxiola MD URINE ORDERABLES [facility] [place] [address] * (ABNORMAL) Comprehensive metabolic panel (07/13/2024 4:10 AM EDT) Glucose 114 65 - 199 mg/dL 07/13/2024 5:24 AM EDT [facility] Comment:Glucose Concentratio n >=200 mg/dL plus symptoms is consistent with Diabetes Mellitus. Blood Urea Nitrogen 21(H) 8 - 18 mg/dL 07/13/2024 5:24 AM EDT [facility] Creatinine 2.38(H) 0.70 - 1.20 mg/dL 07/13/2024 5:24 AM EDT [facility] Sodium 141 135 - 145 mMol/L 07/13/2024 5:[facility] Potassium 3.6 3.5 - 5.0 mMol/L 07/13/2024 5:24 AM EDT [facility] Chloride 99 98 - 107 mMol/L 07/13/2024 5:24 [facility] Carbon Dioxide 29 22 - 31 mMol/L 07/13/2024 5:24 AM [facility] Anion Gap 13 5 - 15 mMol/L 07/13/2024 5:24 AM [facility] Calcium 9.5 8.5 - 10.5 mg/dL 07/13/2024 5:24 AM [facility] Protein, Total 8.0 6.1 - 8.0 g/dL 07/13/2024 5:24 AM EDT [facility] Albumin 3.1(L) 3.2 - 5.2 g/dL 07/13/2024 5:24 AM [facility] Aspartate Aminotransferase 187(H) <=30 unit/L 07/13/2024 5:24 AM [facility] Alanine Aminotransferase 80(H) 0 - 30 unit/L 07/13/2024 5:24 AM [facility] Alkaline Phosphatase 2,911(H) 35 - 105 unit/L 07/13/2024 5:24 AM [facility] Bilirubin, Total 1.3 <=1.3 mg/dL 07/13/2024 5:24 AM [facility] Est Glomerular Filtration Rate - Female 23 mL/min/1. 73 m?? 07/13/2024 5:24 AM [facility] AM EDT Srikanth Patel MD CHEMISTRY ORDERABLES [facility] [place] [address] * (ABNORMAL) CBC (with Diff) (07/13/2024 4:10 AM EDT) White Blood Cell 10.72(H) 4.00 - 9.50 x10(3)/mc L 07/13/2024 4:44 AM [facility] Red Blood Cell 2.90(L) 4.00 - 5.21 x10(6)/mc L 07/13/2024 4:44 AM [facility] Hemoglobin 8.6(L) 11.7 - 15.5 g/dL 07/13/2024 4:44 AM [facility] Hematocrit 26.6(L) 35.7 - 45.8 % [...] - 6.10 x10(3)/mc L 07/13/2024 4:44 AM EDT [facility] Lymph % 36.6 % 07/13/2024 4:44 AM EDT [facility] Lymph Absolute 3.92(H) 0.90 - 3.20 x10(3)/mc L 07/13/2024 4:44 AM EDT [facility] Monocyte % 8.4 % 07/13/2024 4:44 AM EDT [facility] Monocyte Absolute 0.90 0.30 - 0.90 x10(3)/mc L 07/13/2024 4:44 AM EDT [facility] Eos % 4.7 % 07/13/2024 4:44 AM EDT [facility] Eos Absolute 0.50(H) 0.00 - 0.40 x10(3)/mc L 07/13/2024 4:44 AM EDT [facility] Basophil % 0.3 % 07/13/2024 4:44 AM EDT [facility] Baso Absolute <0.04 0.00 - 0.10 x10(3)/mc L 07/13/2024 4:44 AM EDT [facility] Immature Gran % 0.2 % 4:44 AM EDT [facility] Immature Gran Absolute <0.04 0.00 - 0.04 x10(3)/mc L 07/13/2024 4:44 AM EDT [facility] Blood VENOUS BLOOD SPECIMEN / Unknown IP Care Team Draw / Unknown 07/13/2024 4:10 AM EDT 07/13/2024 4:34 AM EDT Elda Gaxiola MD HEMATOLOGY ORDERABLE S [facility] [place] [address] * Phosphorus (07/13/2024 4:10 AM EDT) Phosphorus 3.0 2.5 - 4.5 mg/dL 07/13/2024 5:07 AM EDT [facility] Blood VENOUS BLOOD SPECIMEN / Unknown IP Care Team Draw / Unknown 07/13/2024 4:10 AM EDT 07/13/2024 4:34 AM EDT Elda Gaxiola MD CHEMISTRY ORDERABLES Performing Organization Address [facility]/ZIP Co de Phone Number [facility] [place] [address] * Vancomycin Level, Random (07/13/2024 4:10 AM EDT) [facility] Vancomycin, Random 22.5 mg/L 2023 5:07 AM EDT [facility] Comment:This level is for de termination of the patient's vancomycin nacn-uscsc-jqp-curve (AUC) value. Contact the inpatient pharmacy for interpretation. Blood VENOUS BLOOD SPECIMEN / Unknown IP Care Team Draw / Unknown 07/13/2024 4:10 AM EDT 07/13/2024 4:34 AM EDT Elda Gaxiola MD CHEMISTRY ORDERABLES Performing Organization Address City/[facility]/ZIP Co de Phone Number [facility] [place] [address] * Scan, Peripheral Blood (07/12/2024 8:34 AM EDT) [facility] RBC Morphology Abnormal 07/12/2024 10:31 AM EDT [facility] Platelet Estimate Normal Normal 024 10:31 AM EDT [facility] Macrocyte 1-5 /HPF 07/12/2024 10:31 AM EDT [facility] Microcyte 1-5 /HPF 07/12/2024 10:31 AM EDT [facility] Hypochromasia Slight 07/12/2024 10:31 AM EDT [facility] Target Cell 1-5 /HPF 07/12/2024 10:31 AM EDT [facility] Phoenix cells 1-5 /HPF 07/12/2024 10:31 AM EDT [facility] HJB Present 07/12/2024 10:31 AM [facility] Blood VENOUS BLOOD SPECIMEN / Unknown IP Care Team Draw / Unknown 07/12/2024 8:34 AM EDT 07/12/2024 8:44 AM EDT Elda Gaxiola MD HEMATOLOGY ORDERABLE S [facility] [place] [address] * (ABNORMAL) CBC (with Diff) (07/12/2024 8:34 AM EDT) White Blood Cell 9.66(H) 4.00 - 9.50 x10(3)/mc L 07/12/2024 10:31 AM EDT [facility] Red Blood Cell 2.86(L) 4.00 - 5.21 x10(6)/mc L 07/12/2024 10:31 AM [facility] Hemoglobin 8.6(L) 11.7 - 15.5 g/dL 07/12/2024 10:31 AM [facility] Hematocrit 27.3(L) 35.7 - 45.8 % 07/12/2024 10:31 AM [facility] Mean Cell Volume 95.5(H) 82.6 - 94.4 fL 07/12/2024 10:31 AM [facility] Mean Cell Hemoglobin 30.1 27.1 - 32.0 pg 07/12/2024 10:31 AM [facility] Mean Cell Hemoglobin Concentration 31.5(L) 31.7 - 35.0 g/dL 07/12/2024 10:31 AM [facility] Platelet 324 145 - 357 x10(3)/mc L 07/12/2024 10:31 AM [facility] Mean Platelet Volume 12.8 7.6 - 12.9 fL 07/12/2024 10:31 AM [facility] RDW Standard Deviation 70.9(H) 37.0 - 46.0 fL 07/12/2024 10:31 AM [facility] RDW coefficient of variation 20.4(H) 11.5 - 14.1 % 07/12/2024 10:31 AM [facility] NRBC% auto 0.0 % 07/12/2024 10:31 [...] Eos % 7.7 % 07/12/2024 10:31 AM EDT [facility] Comment:This is an appended report. These results have been appended to a previously preliminary verified report. Eos Absolute 0.74(H) 0.00 - 0.40 x10(3)/mc L 07/12/2024 10:31 AM EDT [facility] Comment:This is an appended report. These results have been appended to a previously preliminary verified report. Basophil % 0.4 % 07/12/2024 10:31 AM EDT [facility] Comment:This is an appended report. These results have been appended to a previously preliminary verified report. Baso Absolute 0.04 0.00 - 0.10 x10(3)/mc L 07/12/2024 10:31 AM EDT [facility] Comment:This is an appended report. These results have been appended to a previously preliminary verified report. Immature Gran % 0.5 % 10:31 AM EDT [facility] Comment:This is an appended report. These results have been appended to a previously preliminary verified report. Immature Gran Absolute 0.05(H) 0.00 - 0.04 x10(3)/mc L 07/12/2024 10:31 AM EDT [facility] Comment:This is an appended report. These results have been appended to a previously preliminary verified report. Blood VENOUS BLOOD SPECIMEN / Unknown IP Care Team Draw / Unknown 07/12/2024 8:34 AM EDT 07/12/2024 8:44 AM EDT Elda Gaxiola MD HEMATOLOGY ORDERABLE S [facility] [place] [address] * (ABNORMAL) Comprehensive metabolic panel (07/12/2024 4:10 AM EDT) Glucose 107 65 - 199 mg/dL 07/12/2024 5:20 AM [facility] Comment:Glucose Concentratio n >=200 mg/dL plus symptoms is consistent with Diabetes Mellitus. Blood Urea Nitrogen 23(H) 8 - 18 mg/dL 07/12/2024 5:20 AM [facility] Creatinine 2.16(H) 0.70 - 1.20 mg/dL 07/12/2024 5:20 AM [facility] Sodium 143 135 - 145 mMol/L 07/12/2024 5:20 AM [facility] Potassium 3.2(L) 3.5 - 5.0 mMol/L [...] 26 mL/min/1. 73 m?? 07/12/2024 5:20 AM EDT [facility] Comment: This patient's estimated [...] AM EDT Srikanth Patel MD CHEMISTRY ORDERABLES [facility] [place] [address] * Phosphorus (07/12/2024 4:10 AM EDT) Phosphorus 2.8 2.5 - 4.5 mg/dL 07/12/2024 5:08 AM EDT [facility] Blood VENOUS BLOOD SPECIMEN / Unknown IP Care Team Draw / Unknown 07/12/2024 4:10 AM EDT 07/12/2024 4:36 AM EDT Elda Gaxiola MD CHEMISTRY ORDERABLES [facility] [place] [address] * Vancomycin Level, Random (07/12/2024 4:10 AM EDT) Vancomycin, Random 20.4 mg/L 2023 5:08 AM EDT [facility] Comment:This level is for de termination of the patient's vancomycin avsf-bxxrg-eim-curve (AUC) value. Contact the inpatient pharmacy for interpretation. Blood VENOUS BLOOD SPECIMEN / Unknown IP Care Team Draw / Unknown 07/12/2024 4:10 AM EDT 07/12/2024 4:36 AM EDT Elda Gaxiola MD CHEMISTRY ORDERABLES Performing Organization Address [facility] Co de Phone Number [facility] [place] [address] * Vancomycin Level, Random (07/11/2024 9:20 AM EDT) Vancomycin, Random 20.0 mg/L 2023 10:44 AM EDT [facility] Comment:This level is for de termination of the patient's vancomycin nngk-anrve-ssz-curve (AUC) value. Contact the inpatient pharmacy for interpretation. Blood VENOUS BLOOD SPECIMEN / Unknown IP Care Team Draw / Unknown 07/11/2024 9:20 AM EDT 07/11/2024 9:49 AM EDT Elda Gaxiola MD CHEMISTRY ORDERABLES Performing Organization Address City/[facility]/ZIP Co de Phone Number [facility] [place] [address] * (ABNORMAL) Comprehensive metabolic panel (07/11/2024 4:08 AM EDT) Glucose 114 65 - 199 mg/dL 07/11/2024 6:08 AM EDT [facility] Comment:Glucose Concentratio n >=200 mg/dL plus symptoms is consistent with Diabetes Mellitus. Blood Urea Nitrogen 35(H) 8 - 18 mg/dL 07/11/2024 6:08 AM EDT [facility] Creatinine 2.84(H) 0.70 - 1.20 mg/dL 07/11/2024 6:08 AM EDT [facility] Sodium 142 135 - 145 mMol/L 07/11/2024 6:08 AM EDT [facility] Potassium 3.6 3.5 - 5.0 mMol/L 07/11/2024 6:08 AM [facility] Chloride 102 98 - 107 mMol/L 07/11/2024 6:08 AM [facility] Carbon Dioxide 25 22 - 31 mMol/L 07/11/2024 6:08 AM [facility] Anion Gap 15 5 - 15 mMol/L 07/11/2024 6:08 AM [facility] Calcium 8.9 8.5 - 10.5 mg/dL 07/11/2024 6:08 AM [facility] Protein, Total 7.9 6.1 - 8.0 g/dL 07/11/2024 6:08 AM [facility] Albumin 3.0(L) 3.2 - 5.2 g/dL 07/11/2024 6:08 AM [facility] Aspartate Aminotransferase 145(H) <=30 unit/L 07/11/2024 6:08 AM [facility] Alanine Aminotransferase 67(H) 0 - 30 unit/L 07/11/2024 6:08 AM [facility] Alkaline Phosphatase 2,593(H) 35 - 105 [...] MD CHEMISTRY ORDERABLES Performing Organization Address [facility]/ZIP Co de Phone Number [facility] [place] [address] * Phosphorus (07/11/2024 4:08 AM EDT) Phosphorus 2.8 2.5 - 4.5 mg/dL 07/11/2024 5:50 AM EDT [facility] Blood VENOUS BLOOD SPECIMEN / Unknown IP Care Team Draw / Unknown 07/11/2024 4:08 AM EDT 07/11/2024 4:16 AM EDT Elda Gaxiola MD CHEMISTRY ORDERABLES Performing Organization Address [facility] Co de Phone Number [facility] [place] [address] * APTT (07/11/2024 4:08 AM EDT) Partial Thromboplastin Time 28 25 - 37 sec 07/11/2024 4:35 AM EDT [facility] Comment: The PTT is NOT appropriate for heparin monitoring. Use the Anti-Xa level for heparin monitoring (HEP UFH) or LMWH monitoring (HEP LMW). A PTT less than 37 seconds generally indicates adequate hemostasis. Blood VENOUS BLOOD SPECIMEN / Unknown IP Care Team Draw / Unknown 07/11/2024 4:08 AM EDT 07/11/2024 4:16 AM EDT Elda Gaxiola MD HEMATOLOGY ORDERABLE S Performing Organization Address City/[facility]/ZIP Co de Phone Number [facility] [place] [address] * (ABNORMAL) Prothrombin Time (07/11/2024 4:08 AM EDT) Prothrombin Time 12.7(H) 9.4 - 12.5 sec 07/11/2024 4:35 AM EDT [facility] International Normalization Ratio 1.1 <=4.9 07/11/2024 4:35 AM EDT [facility] Comment: An INR < 2.0 indicates [...] EDT Elda Gaxiola MD HEMATOLOGY ORDERABLE S [facility] [place] [address] * (ABNORMAL) CBC (with Diff) (07/11/2024 4:08 AM EDT) White Blood Cell 11.57(H) 4.00 - 9.50 x10(3)/mc L 07/11/2024 4:29 AM EDT [facility] Red Blood Cell 2.72(L) 4.00 - 5.21 x10(6)/mc L 07/11/2024 4:29 AM EDT [facility] Hemoglobin 8.2(L) 11.7 - 15.5 g/dL 07/11/2024 4:29 AM EDT [facility] Hematocrit 25.2(L) 35.7 - 45.8 % 07/11/2024 4:29 AM EDT [facility] Mean Cell Volume 92.6 82.6 - 94.4 fL 07/11/2024 4:29 AM EDT [facility] Mean Cell Hemoglobin 30.1 27.1 - 32.0 pg 07/11/2024 4:29 AM EDT [facility] Mean Cell Hemoglobin Concentration 32.5 31.7 - 35.0 g/dL 07/11/2024 4:29 AM [facility] Platelet 375(H) 145 - 357 x10(3)/mc L 07/11/2024 4:29 AM [facility] Mean Platelet Volume 12.2 7.6 - 12.9 fL 07/11/2024 4:29 AM [facility] RDW Standard Deviation 66.6(H) 37.0 - [...] - 0.40 x10(3)/mc L 07/11/2024 4:29 AM EDT [facility] Basophil % 0.2 % 07/11/2024 4:29 AM EDT [facility] Baso Absolute <0.04 0.00 - 0.10 x10(3)/mc L 07/11/2024 4:29 AM EDT [facility] Immature Gran % 0.3 % 4:29 AM EDT [facility] Immature Gran Absolute 0.04 0.00 - 0.04 x10(3)/mc L 07/11/2024 4:29 AM EDT [facility] Blood VENOUS BLOOD SPECIMEN / Unknown IP Care Team Draw / Unknown 07/11/2024 4:08 AM EDT 07/11/2024 4:16 AM EDT Srikanth Patel MD HEMATOLOGY ORDERABLE S [facility] [place] [address] * Liver/Kidney Microsome Type 1 Antibody (07/10/2024 9:30 AM EDT) Denise/Kid Mirco1 May <5.0 <=20.0 (Negative) U 07/14/2024 12:47 PM EDT [facility] Comment: Blood VENOUS BLOOD SPECIMEN / Unknown IP Care Team Draw / Unknown 07/10/2024 9:30 AM EDT 07/10/2024 9:38 AM EDT Narrative [facility] - 07/14/2024 12:47 PM EDT Test Performed by: [facility] [address] [place] [address] Engine Oiler: Cindy Payne Ph.D.; CLIA# [id number] Elda Gaxiola MD LAB SEND OUT ORDERAB LES [facility] [address] [place] [id number] [place] [address] * Smooth Muscle Antibody (07/10/2024 9:30 AM EDT) Sm Muscle Ab May Negative Negative 07/12/20 2:33 PM EDT [facility] Comment: Negative: No further testing will be performed ADDITIONAL INFORMATION This test was developed and its performance characteristics determined by [facility] in a manner consistent with CLIA requirements. This test has not been cleared or approved by the U.S. Food and Drug Administration. Blood VENOUS BLOOD SPECIMEN / Unknown IP Care Team Draw / Unknown 07/10/2024 9:30 AM EDT 07/10/2024 9:38 AM EDT Narrative [facility]F [facility] 07/12/2024 2:33 PM EDT Test Performed by: [place] [address] Engine Oiler: Cindy Payne Ph.D.; CLIA# [id number] Elda Gaxiola MD LAB SEND OUT ORDERAB LES Performing Organization Address [facility] de Phone Number REF LAB [address] [place] [address] * Mitochondrial Antibody, M2 (07/10/2024 9:30 AM EDT) Pathologist [facility] Mitochon Ab May <0.1 <0.1 (Negative) U 07/12/2024 5:50 PM EDT [facility] Comment: Blood VENOUS BLOOD SPECIMEN / Unknown IP Care Team Draw / Unknown 07/10/2024 9:30 AM EDT 07/10/2024 9:38 AM EDT Narrative REF [facility] 07/12/2024 5:50 PM EDT Test Performed by: [place] [address] Engine Oiler: Cindy Payne Ph.D.; CLIA# [id number] Elda Gaxiola MD LAB SEND OUT ORDERAB LES Performing Organization Address [facility] Co de Phone Number [facility] [address] [place] [address], [facility] * (ABNORMAL) Comprehensive metabolic panel (07/10/2024 5:26 AM EDT) Glucose 100 65 - 199 mg/dL 07/10/2024 6:16 AM [facility] Comment:Glucose Concentratio n >=200 mg/dL plus symptoms is consistent with Diabetes Mellitus. Blood Urea Nitrogen 39(H) 8 - 18 mg/dL 07/10/2024 6:16 AM [facility] Creatinine 3.12(H) 0.70 - 1.20 mg/dL [...] 35 - 105 unit/L 07/10/2024 6:16 AM EDT [facility] Bilirubin, Total 1.2 <=1.3 mg/dL 07/10/2024 6:16 AM EDT [facility] Est Glomerular Filtration Rate - Female 16 mL/min/1. 73 m?? 07/10/2024 6:16 AM EDT [facility] Comment: This patient's estimated [...] Patel MD CHEMISTRY ORDERABLES Performing Organization Address City/State/[facility] Co de Phone Number [facility] [place] [address] * (ABNORMAL) CBC (with Diff) (07/10/2024 5:26 AM EDT) White Blood Cell 10.15(H) 4.00 - 9.50 x10(3)/mc L 07/10/2024 5:37 AM EDT [facility] Red Blood Cell 2.66(L) 4.00 - 5.21 x10(6)/mc L 07/10/2024 5:37 AM EDT [facility] Hemoglobin 8.1(L) 11.7 - 15.5 g/dL 07/10/2024 5:37 AM EDT [facility] Hematocrit 24.5(L) 35.7 - [...] - 0.90 x10(3)/mc L 07/10/2024 5:37 AM EDT [facility] Eos % 1.3 % 07/10/2024 5:37 AM EDT [facility] Eos Absolute 0.13 0.00 - 0.40 x10(3)/mc L 07/10/2024 5:37 AM EDT [facility] Basophil % 0.3 % 07/10/2024 5:37 AM EDT [facility] Baso Absolute <0.04 0.00 - 0.10 x10(3)/mc L 07/10/2024 5:37 AM EDT [facility] Immature Gran % 0.3 % 5:37 AM EDT [facility] Immature Gran Absolute <0.04 0.00 - 0.04 x10(3)/mc L 07/10/2024 5:37 AM EDT [facility] Blood VENOUS BLOOD SPECIMEN / Unknown IP Care Team Draw / Unknown 07/10/2024 5:26 AM EDT 07/10/2024 5:31 AM EDT Srikanth Patel MD HEMATOLOGY ORDERABLE S [facility] [place] [address] * Phosphorus (07/10/2024 2:15 AM EDT) Phosphorus 3.7 2.5 - 4.5 mg/dL 07/10/2024 2:49 AM EDT [facility] Blood VENOUS BLOOD SPECIMEN / Unknown IP Care Team Draw / Unknown 07/10/2024 2:15 AM EDT 07/10/2024 2:21 AM EDT Elda Gaxiola MD CHEMISTRY ORDERABLES [facility] [place] [address] * MRI Cholangiopancreatography WO Contrast (07/09/2024 10:28 PM EDT) WORKSTATION ID [id number] [facility] Anatomical Region Laterality Modality Magnetic Resonan ce [...] who have questions please contact the health personal care attendant that requested your imaging first. ? Electronically signed by: Kristine Doyle MD, [facility] ([phone]), at 07/10/2024 6:36 AM Narrative 07/10/2024 6:36 [...] patients who have questions please contactthe health personal care attendant that requested your imaging first. Elda Gaxiola MD [facility] MRI ORDERABLES * (ABNORMAL) Basic Metabolic Panel (07/09/2024 4:10 PM EDT) Glucose 61(L) 65 - 199 mg/dL 07/09/2024 4:48 PM [facility] Comment:Glucose Concentratio n >=200 mg/dL plus symptoms is consistent with Diabetes Mellitus. Blood Urea Nitrogen 39(H) 8 - 18 mg/dL 07/09/2024 4:48 PM [facility] Creatinine 3.37(H) 0.70 - 1.20 mg/dL 07/09/2024 4:48 PM [facility] Sodium 142 135 - 145 mMol/L 07/09/2024 4:48 PM [facility] Potassium 3.7 3.5 - 5.0 mMol/L 07/09/2024 4:48 PM [facility] Chloride 100 98 - 107 mMol/L 07/09/2024 4:48 PM [facility] Carbon Dioxide 23 22 - 31 mMol/L 07/09/2024 4:48 PM [facility] Anion Gap 19(H) 5 - 15 mMol/L 07/09/2024 4:48 PM [facility] Calcium 9.6 8.5 - 10.5 mg/dL 07/09/2024 4:48 PM [facility] Est Glomerular Filtration Rate - Female 15 mL/min/1. 73 m?? 07/09/2024 4:48 PM [facility] Comment: [...] PM EDT Elda Gaxiola MD CHEMISTRY ORDERABLES [facility] [place] [address] * US Abdomen Limited (07/09/2024 11:16 AM EDT) WORKSTATION ID [id number] RAD Anatomical Region Laterality Modality Abdomen Ultrasound [...] David Alvarado MD at 07/09/2024 11:45 AM Electronically signed by: David Alvarado MD, [facility] ([phone]), at 07/09/2024 11:45 AM Thank you for letting us participate in the care of this patient. If you are a health care provider and have any questions regarding this report, please contact the number above. For patients who have questions, please contact the health personal care attendant that requested your imaging first. ? David Alvarado, Staff Physician Electronically Signed Final Report ?? 07/09/2024 11:53 am Narrative 07/09/2024 11:53 AM EDT Abdominal ? (Signed Final 07/09/2024 11:53 am) PATIENT INFO: ID #: ? [id number] ?: ??[birth year] (58 yrs)(F) Name: ? OKSANA BETANCOURT ? Visit Date: 07/09/2024 11:13 am PERFORMED BY: Attending: ?Jenny TINSLEY, David Blake Resident: ? Corneilus TINSLEY, Wilmar Kovacs Performed By: ? Axel NASH, Breanne Mclean Referred By: ?ELDA GAXIOLA Location: ? [place] SERVICE(S) PROVIDED: UABDLIM - Abdominal Limited Survey Single ? [id number] Organ or Quadrant - [id number] INDICATIONS: transaminitis and ruq pain eval for [...] 07/09/2024 11:53 am) PATIENT INFO: ID #: [id number] : [birth year] (58 yrs)(F) Name: OKSANA BETANCOURT Visit Date: 07/09/2024 11:13 am PERFORMED BY: Attending: David Alvarado MD Resident: Wilmar Shields MD Performed By: Breanne Reyna RDMS Referred By: ELDA GAXIOLA Location: [place] SERVICE(S) PROVIDED: UABDLIM - Abdominal Limited Survey Single [id number] Organ or Quadrant - [id number] INDICATIONS: transaminitis and ruq pain eval for [...] David Alvarado MD at 07/09/2024 11:45 AM Electronically signed by: David Alvarado MD, [facility] ([phone]), at 07/09/2024 11:45 AM Thank you for letting us participate in the care of this patient. If you are a health care provider and have any questions regarding this report, please contact the number above. For patients who have questions, please contact the health personal care attendant that requested your imaging first. David Alvarado, Staff Physician Electronically Signed Final Report 07/09/2024 11:53 am Elda Gxaiola MD IMG US GEN ORDERABLE S * US Retroperitoneal Complete (07/09/2024 10:53 AM EDT) WORKSTATION ID [id number] RAD Anatomical Region Laterality Modality Abdomen Ultrasound 07/09/2024 10:5 1 AM EDT Impressions 07/09/2024 11:17 AM EDT 1. ??Slightly limited exam with no evidence of hydronephrosis or nephrolithiasis. 2. ??Stable mild right renal atrophy. I have personally reviewed the image(s) and the resident's interpretation and agree with the findings, David Alvarado MD at 07/09/2024 11:07 AM Electronically signed by: David Alvarado MD, [facility] ([phone]), at 07/09/2024 11:07 AM Thank you for letting us participate in the care of this patient. If you are a health care provider and have any questions regarding this report, please contact the number above. For patients who have questions, please contact the health personal care attendant that requested your imaging first. ? David Alvarado Staff Physician Electronically Signed Final Report ?? 07/09/2024 11:16 am Narrative 07/09/2024 11:17 AM EDT Renal ? (Signed Final 07/09/2024 11:16 am) PATIENT INFO: ID #: ? [id number] ?: ??[birth year] (58 yrs)(F) Name: ? OKSANA BETANCOURT ? Visit Date: 07/09/2024 10:51 am PERFORMED BY: Attending: ?Jenny TINSLEY, David Blake Resident: ? Cornelius TINSLEY, Wilmar Kovacs Performed By: ? Axel NASH, Breanne Mclean Referred By: ?ELDA GAXIOLA Location: ? [place] SERVICE(S) PROVIDED: URETRO - Retroperitoneal Complete - [id number] ? [id number] INDICATIONS: new jonathan, assess for obstruction COMPARISON: CT 10-20-24 RIGHT KIDNEY: Size (cm) ?L: ??5.9 Cortical [...] 07/09/2024 11:16 am) PATIENT INFO: ID #: [id number] : 61 (58 yrs)(F) Name: OKSNAA BETANCOURT Visit Date: 07/09/2024 10:51 am PERFORMED BY: Attending: David Alvarado MD Resident: Wilmar Shields MD Performed By: Breanne Reyna RDMS Referred By: ELDA GAXIOLA Location: [place] SERVICE(S) PROVIDED: URETRO - Retroperitoneal Complete - [id number] INDICATIONS: new jonathan, assess for obstruction COMPARISON: [...] David Alvarado MD at 07/09/2024 11:07 AM Electronically signed by: David Alvarado MD, [facility] ([phone]), at 07/09/2024 11:07 AM Thank you for letting us participate in the care of this patient. If you are a health care provider and have any questions regarding this report, please contact the number above. For patients who have questions, please contact the health personal care attendant that requested your imaging first. David Alvarado, Staff Physician Electronically Signed Final Report 07/09/2024 11:16 am Elda Gaxiola MD IM US GEN ORDERABLE S * (ABNORMAL) Urine culture (07/09/2024 9:25 AM EDT) Urine Culture Greater than 100,000 cfu/ml Enterococcus faecium(A) VITEK 2 METHOD 07/11/2024 6:26 AM EDT [facility] Urine URINE SPECIMEN OBTAINED [...] ug/ml: Susceptible Elda Gaxiola MD MICROBIOLOGY - [facility] AL ORDERABLES Performing Organization Address [facility]/ZIP Co de Phone Number [facility] [place] [address] * (ABNORMAL) Urinalysis Microscopic Reflex to Culture (07/09/2024 9:25 AM EDT) Bacteria, Urine Many(A) None /HPF 10:56 AM EDT [facility] RBC, Urine 0 0 - 4 /HPF 07/09/2024 10:56 AM EDT [facility] WBC, Urine 41(H) 0 - 5 /HPF 07/09/2024 10:56 AM EDT [facility] Squamous Epithelial Cells, Urine 1 0 - 5 /HPF 07/09/2024 10:56 AM EDT [facility] Hyaline Casts, Urine 1 0 - 2 /LPF 07/09/2024 10:56 AM EDT [facility] Granular Casts, Urine 2(H) <=0 /LPF 07/09/2024 10:56 AM EDT [facility] Comment 07/09/2024 10:56 AM EDT [facility] Comment:Interpret results wi th caution, microscopic results are from a suboptimal specimen. CULTURE ADDED? 07/09/2024 10:56 AM EDT [facility] Comment:Yes Urine URINE SPECIMEN OBTAINED BY CLEAN CATCH PROCEDURE / Unknown Non Blood Collection / Unknown 07/09/2024 9:25 AM EDT 07/09/2024 10:04 AM EDT Elda Gaxiola MD URINE ORDERABLES Performing Organization Address [facility]/ZIP Co de Phone Number [facility] [place] [address] * Urinalysis Microscopic with Reflex to Culture (07/09/2024 9:25 AM EDT) CULTURE ADDED? 07/09/2024 10:56 AM EDT [facility] Urine URINE SPECIMEN OBTAINED BY CLEAN CATCH PROCEDURE / Unknown Non Blood Collection / Unknown 07/09/2024 9:25 AM EDT 07/09/2024 10:04 AM EDT Elda Gaxiola MD URINE ORDERABLES [facility] [place] [address] * Urea nitrogen, urine, random (07/09/2024 9:25 AM EDT) Urea Nitrogen, Urine 661 mg/dL 07/09/2024 11:01 AM EDT [facility] Urine URINE SPECIMEN / Unknown Non Blood Collection / Unknown 07/09/2024 9:25 AM EDT 07/09/2024 10:04 AM EDT Elda Gaxiola MD URINE ORDERABLES Performing Organization Address City/[facility]/ZIP Co de Phone Number [facility] [place] [address] * Creatinine, urine, random (07/09/2024 9:25 AM EDT) Creatinine, Urine 168 mg/dL 07/09/2024 11:01 AM EDT [facility] Urine URINE SPECIMEN / Unknown Non Blood Collection / Unknown 07/09/2024 9:25 AM EDT 07/09/2024 10:04 AM EDT Elda Gaxiola MD URINE ORDERABLES [facility] [place] [address] * (ABNORMAL) Urinalysis with reflex Culture (07/09/2024 9:25 AM EDT) Glucose, Urine Dipstick Negative Negative 07/09/2024 10:56 AM [facility] Protein, Urine Dipstick 100 mg/dL(A) Negative 07/09/2024 10:56 AM [facility] Bilirubin, Urine Dipstick Negative Negative 07/09/2024 10:56 AM [facility] Comment:Clinical correlation required for positive [...] [facility] Specific Ione Urine Automated 1.019 1.005 - 1.030 07/09/2024 [...] AM EDT Elda Gaxiola MD URINE ORDERABLES [facility] [place] [address] * (ABNORMAL) Gamma GT (07/09/2024 5:02 AM EDT) Gamma Glutamyl Transferase 2,038(H) 5 - 36 unit/L 07/09/2024 5:59 AM EDT [facility] Blood VENOUS BLOOD SPECIMEN / Unknown IP Care Team Draw / Unknown 07/09/2024 5:02 AM EDT 07/09/2024 5:14 AM EDT Srikanth Patel MD CHEMISTRY ORDERABLES Performing Organization Address City/[facility]/ZIP Co de Phone Number [facility] [place] [address] * (ABNORMAL) Comprehensive metabolic panel (07/09/2024 5:02 AM EDT) Glucose 72 65 - 199 mg/dL 07/09/2024 5:59 AM EDT [facility] Comment:Glucose Concentratio n >=200 mg/dL plus symptoms is consistent with Diabetes Mellitus. Blood Urea Nitrogen 37(H) 8 - 18 mg/dL 07/09/2024 5:59 AM EDT [facility] Creatinine 4.07(H) 0.70 - 1.20 mg/dL 07/09/2024 5:59 AM EDT [facility] Sodium 142 135 - 145 mMol/L 07/09/2024 5:59 AM EDT [facility] Potassium 3.8 3.5 - 5.0 mMol/L 07/09/2024 5:59 AM EDT [facility] Chloride 103 98 - 107 mMol/L 07/09/2024 5:59 AM EDT [facility] Carbon Dioxide 23 22 - 31 mMol/L 07/09/2024 5:59 AM EDT [facility] Anion Gap 16(H) 5 - 15 mMol/L 07/09/2024 5:59 AM [facility] Calcium 9.2 8.5 - 10.5 mg/dL 07/09/2024 5:59 AM [facility] Protein, Total 7.6 6.1 - 8.0 g/dL 07/09/2024 5:59 AM [facility] Albumin 3.1(L) 3.2 - 5.2 g/dL 07/09/2024 5:59 AM [facility] Aspartate Aminotransferase 124(H) <=30 unit/L 07/09/2024 5:59 AM [facility] Alanine Aminotransferase 61(H) 0 - 30 unit/L 07/09/2024 5:59 AM [facility] Alkaline Phosphatase 2,558(H) 35 - 105 unit/L 07/09/2024 5:59 AM [facility] Bilirubin, Total 1.2 <=1.3 mg/dL 07/09/2024 5:59 AM [facility] Est Glomerular Filtration Rate - Female 12 mL/min/1. 73 m?? 07/09/2024 5:59 AM [facility] [...] AM EDT Srikanth Patel MD CHEMISTRY ORDERABLES [facility] [place] [address] * (ABNORMAL) CBC (with Diff) (07/09/2024 5:02 AM EDT) White Blood Cell 9.89(H) 4.00 - 9.50 x10(3)/mc L 07/09/2024 5:22 AM EDT [facility] Red Blood Cell 2.62(L) 4.00 - 5.21 x10(6)/mc L 07/09/2024 5:22 AM EDT [facility] Hemoglobin 8.0(L) 11.7 - 15.5 g/dL 07/09/2024 5:[facility] Hematocrit 24.8(L) 35.7 - 45.8 % 07/09/2024 5:22 AM EDT [facility] Mean Cell Volume 94.7(H) 82.6 - 94.4 fL 07/09/2024 5:22 AM EDT [facility] Mean Cell Hemoglobin 30.5 27.1 - 32.0 pg 07/09/2024 5:22 AM EDT [facility] Mean Cell Hemoglobin Concentration 32.3 31.7 - 35.0 g/dL 07/09/2024 5:22 AM EDT [facility] Platelet 441(H) 145 - 357 x10(3)/mc L 07/09/2024 5:22 AM EDT [facility] Mean Platelet Volume 11.9 7.6 - 12.9 fL 07/09/2024 5:22 AM EDT [facility] RDW Standard Deviation 68.9(H) 37.0 - 46.0 fL 07/09/2024 5:22 AM [facility] RDW coefficient of variation 20.2(H) 11.5 - 14.1 % 07/09/2024 5:22 AM [facility] NRBC% auto 0.0 % [...] - 3.20 x10(3)/mc L 07/09/2024 5:22 AM [facility] Monocyte % 10.7 % 07/09/2024 5:22 AM [facility] Monocyte Absolute 1.06(H) 0.30 - 0.90 x10(3)/mc L 07/09/2024 5:22 AM [facility] Eos % 0.6 % 07/09/2024 5:22 AM [facility] Eos Absolute 0.06 0.00 - 0.40 x10(3)/mc L 07/09/2024 5:22 AM [facility] Basophil % 0.3 % 07/09/2024 5:22 AM [facility] Baso Absolute <0.04 0.00 - 0.10 x10(3)/mc L 07/09/2024 5:22 AM [facility] Immature Gran % 0.3 % 5:22 AM [facility] Immature Gran Absolute <0.04 0.00 - 0.04 x10(3)/mc L 07/09/2024 5:22 AM [facility] Blood VENOUS BLOOD SPECIMEN / Unknown IP Care Team Draw / Unknown 07/09/2024 5:02 AM EDT 07/09/2024 5:14 AM EDT Srikanth Patel [place] [address] documented in this encounter Visit Diagnoses Not on filedocumented in this encounter Admitting Diagnoses Diagnosis Abdominal [...] Nebulization, EVERY 4 HOURS PRN, Starting on [place] 07/12/24 at 1012, Until Tue07/16/24 at 1733, Wheezing, Routine Given 07/12/2024 12:25 PM EDT 3 mLs lamoTRIgine (LaMICtal) tablet 100 mg 100 mg, [...] Given 07/14/2024 6:12 AM EDT 100 mcg magnesium citrate oral liquid 296 mL 296 mL, Oral, DAILY PRN, Starting on 07/15/24 at 1251, Until Tue07/16/24 at 1733, Constipation, [...] NOT exceed 2 mg total dose. At [facility] or [facility], call provider if naloxone administered. At [facility], If ineffective, call HERT team [phone]. At [facility], page rapid response team., Routine ondansetron (pf) [...] Given 07/14/2024 8:23 AM EDT 40 mg polyethylene glycoL (Miralax) packet 17 g 17 g, Oral, DAILY, First dose on Tue07/09/24 at 1315, Until Discontinued, Routine Given 07/15/2024 9:06 AM EDT 17 g Given 07/14/2024 9:00 AM EDT 17 g Given 07/10/2024 1:02 PM EDT 17 g QUEtiapine (Seroquel) tablet 150 mg 150 mg, [...] Given 07/15/2024 9:07 AM EDT 5 mLs ursodioL (Actigall) capsule 300 mg 300 mg, Oral, 2 TIMES DAILY WITH MEALS, First dose on Tue07/13/24 at 1700, Until Discontinued, Routine Given 07/16/2024 8:52 AM EDT 300 mg Given 07/15/2024 5:13 PM EDT 300 mg Given 07/15/2024 9:06 AM EDT 300 mg white petrolatum-mineral oiL (Eucerin) cream Topical (Top), DAILY, First dose on Tue07/09/24 at 0900, Until Discontinued, LE and feet bilat. Please ensure she is wearing socks to ambulate Given 07/16/2024 9:00 AM E DT Given 07/15/2024 10:00 AM EDT Given 07/14/2024 9:00 AM EDT documented in this encounter Active and Recently Administered Medications Times are shown in EDT. Scheduled Medication Order 07/14/2024 07/15/2024 07/16/2024 apixaban (Eliquis) tablet 5 mg 5 mg, Oral, 2 TIMES DAILY, First dose on [place] 07/12/24 at 0900, Until Discontinued, Anticoagulant, Routine, apixaban (Eliquis) Indication: Non-Valvular Atrial Fibrillation 08 (Given - Provider: Valeir Bah RN)2007 (Given - Provider: Tamy Lehman, KANDI) 905 (Given - Provider: Tammi Girmaldo, KANDI)2103 (Given - Provider: Ligia Lopez RN) 08 (Given - Provider: Tammi Grimaldo RN) atorvastatin [...] Bah RN)2006 (Given - Provider: Tamy Lehman, KANDI) 905 (Given - Provider: Tammi Grimaldo, KANDI)2102 (Given - Provider: Ligia Lopez RN) 851 (Given - Provider: Tammi Grimaldo RN) clopidogreL (Plavix) tablet 75 mg 75 mg, Oral, DAILY, First dose on Tue07/09/24 at 0900, Until Discontinued, Routine 0823 (Given - Provider: Valeri Bah RN) 905 (Given - Provider: Tammi Grimaldo RN) 0852 (Given - Provider: Tammi Grimaldo RN) lamoTRIgine (LaMICtal) tablet 100 mg 100 mg, Oral, 2 TIMES DAILY, First dose on Tue07/09/24 at 0900, Until Discontinued, Routine 822 (Given - Provider: Valeri Bah RN)2007 (Given - Provider: Tamy Lehman RN) 905 (Given - Provider: Tammi Grimaldo RN)2103 (Given - Provider: Ligia Lopez, KANDI) 851 (Given - Provider: Tammi Grimaldo RN) levothyroxine (Synthroid) tablet 100 mcg 100 mcg, Oral, EVERY MORNING, First dose on Tue07/09/24 at 0600, Until Discontinued, Routine 611 (Given - Provider: Tamy Lehman RN) 447 (Given - Provider: Tamy Lehman RN) 06 [...] RN)2102 (Given - Provider: Ligia Lopez, KANDI) 08 (Given - Provider: Tammi Grimaldo RN) multivitamin with minerals (Thera M) tablet 1 tablet 1 tablet, Oral, DAILY, First dose on Tue07/10/24 at 1200, Until Discontinued, Routine 822 (Given - Provider: Valeri Bha RN) 905 (Given - Provider: Tammi Grimaldo RN) 08 (Given - Provider: Tammi Grimaldo, KANDI) pantoprazole EC (Protonix) tablet 40 mg 40 mg, Oral, DAILY, First dose on Tue07/09/24 at 0900, Until Discontinued 822 (Given - Provider: Valeri Bah RN) 905 (Given - Provider: Tammi Grimaldo RN) 851 (Given - Provider: Tammi Grimaldo RN) polyethylene glycoL (Miralax) packet 17 g 17 g, Oral, DAILY, First dose on Tue07/09/24 at 1315, Until Discontinued, Routine 09 (Given - Provider: Valeri Bah RN) 09 (Given - Provider: Tammi Grimaldo RN) 09 (Not Given - Provider: Tammi Grimaldo RN - Reason: Patient/family refused) QUEtiapine (Seroquel) tablet 150 mg 150 mg, Oral, NIGHTLY, First dose on Tue07/09/24 at 2100, Until Discontinued, Routine 2006 (Given - Provider: Tamy Lehman RN) 2102 (Given - Provider: Ligia Lopez RN) senna-docusate (Pericolace) 8.6-50 mg per tablet 2 tablet 2 tablet, Oral, 2 TIMES DAILY, First dose on Tue07/09/24 at 1315, Until Discontinued, Routine 0823 (Given - Provider: Valeri Bah RN)2006 (Given - Provider: Tamy Lehman RN) 905 (Given - Provider: Tammi Grimaldo, KANDI)2103 (Given - Provider: Ligia Lopez RN) 851 (Given - Provider: Tammi Grimaldo RN) sodium chloride 0.9 % (flush) (BD PosiFlush Normal Saline 0.9) flush 5 mL 5 mL, Intravenous, 2 TIMES DAILY, First dose on Tue07/09/24 at 0900, Until Discontinued, Routine 0833 (Given - Provider: Valeri Bah RN)2009 (Given - Provider: Tamy Lehman RN) 906 (Given - Provider: Tammi Grimaldo, KANDI)2103 (Given - Provider: Ligia Lopez RN) 0853 (Given - Provider: Tammi Grimaldo, KANDI) ursodioL (Actigall) capsule 300 mg 300 mg, Oral, 2 TIMES DAILY WITH MEALS, First dose on Tue07/13/24 at 1700, Until Discontinued, Routine 0823 (Given - Provider: Valeri Bah RN)1756 (Given - Provider: Valeri Bah RN) 09 (Given - Provider: Tammi Grimaldo, KANDI)171 (Given - Provider: Tammi Grimaldo, KANDI) 0852 (Given - Provider: Tammi Grimaldo, KANDI) white petrolatum-mineral oiL (Eucerin) cream Topical (Top), DAILY, First dose on Tue07/09/24 at 0900, Until Discontinued, LE and feet bilat. Please ensure she is wearing socks to ambulate 0900 (Given - Provider: Valeri Bah RN) 1000 (Given - Provider: Tammi Grimaldo RN) 0900 (Given - Provider: Tammi Grimaldo RN) PRN Medication Order 07/14/2024 07/15/2024 07/16/2024 acetaminophen [...] Nebulization, EVERY 4 HOURS PRN, Starting on [place] 07/12/24 at 1012, Until Tue07/16/24 at 1733, Wheezing, [...] NOT exceed 2 mg total dose. At [facility] or [facility], call provider if naloxone administered. At [facility], If ineffective, call HERT team [phone]. At [facility], page rapid response team., Routine ondansetron (pf) [...] Lehman RN)1457 (Given - Provider: Valeri Bah RN)2007 (Given - Provider: Tamy Lehman RN) 0447 (Given - Provider: Tamy Lehman RN)1245 (See Alternative - Provider: Tammi Grimaldo RN)1957 (Given - Provider: Ligia Lopez RN) 042 (See Alternative - Provider: Ligia Lopez RN)1210 [...] administration ordered, oral route first line., Routine 414 (See Alternative - Provider: Tamy Lehman RN)145 (See Alternative - Provider: Valeri Bah RN)2006 (See Alternative - Provider: Tamy Lehman RN) 044 (See Alternative - Provider: Tamy Lehman RN)124 (Given - Provider: Tammi Grimaldo RN)1956 (See Alternative - Provider: Ligia Lopez RN) 425 (Given - Provider: Ligia Lopez RN)1210 (See Alternative - Provider: Tammi Grimaldo RN) oxyCODONE (Roxicodone) tablet 5 mg 5 mg, [...] Routine documented in this encounter Care Teams Scout Executive Relationship Specialty Start Date End Date Gaudencio Scales DO [address] [facility] [address] PCP - General Family Medicine 11/28/23 documented as of this encounter
--- OUTSIDE RECORDS SUMMARY | 2024-07-27 12:44 | XMS_ITS | Encounter Summary ---
Author Organization [facility] Address [facility] [place] [address] Care Team Providers Care Analytical Scientist Name Role Phone Gaudencio Scales DO Primary Care Provider [phone] Encounter Details Date Type Department Care Team (Late st Contact Info) Description 07/08/2024 8:50 PM EDT Ancillary Procedure Radiology Library at [facility] [place] [phone] Gaudencio Scales DO [address] [place], [place] [id number] Social History Tobacco Use Types Packs/Day Years [...] your doctor or pharmacy? Rarely 05/29/2024 [facility] Utilities Answer Date Recorded In the past 12 months has [employer], gas, oil, or water [employer] threatened to shut off services in your [...] any time in the past 12 m [facility], were you homeless or living in [...] 8:40 AM EST Hospital Encounter Mammography at [facility] [place] [address] Jr Fulton MD [facility] [address] [address] 07/30/2024 8:45 AM EST Appointment Mammography at [address] Jr Fulton MD [facility] [place] [address] 07/30/2024 9:20 AM EST Hospital Encounter Mammography at [address] Jr Fulton MD [facility] [place] [address] 07/30/2024 10:51 AM EST Hospital Encounter [facility] [place] [address] Jr Fulton MD [facility] [place] [address] 07/30/2024 10:51 AM EST Anesthesia Event [facility] [place] [address] Megan Orona [place] [address] 07/30/2024 10:51 AM EST - 07/30/2024 1:11 PM EST Surgery [facility] [place] [phone] Jr Fulton MD [facility] [place] [address] MASTECTOMY PARTIAL (WRVU 10.13) 08/22/2024 2:00 PM EST Office [place] [address] Cindy Pierce APRN [facility] [place] [address] 08/22/2024 3:00 PM EST Office Visit Hematology [place] [address] Soo Lyn MD [facility] [place] [address] 08/27/2024 9:30 AM EST Scheduled View Only Radiation Oncology at [address] [phone] Rad Nurse, [facility] 08/27/2024 10:00 AM EST Office Visit Radiation Oncology at [address] [phone] Paradise Prado MD [facility] [place] [address] 2024 1:00 PM EDT Office Visit Cardiology at [address] [place] [address] Ham Montenegro MD [facility] [place] [address] Scheduled Procedures Name Priority Associated Diagnoses Date/Ti [...] Procedure Name Priority Date/Time Associated Diagnosis Comments FILM LIBRARY STORAGE ONLY DX CHEST Routine 07/08/2024 8:45 PM EDT documented in this encounter Results * Film Library- Storage Only DX Chest (07/08/2024 8:45 PM EDT) Narrative RAD - 07/08/2024 8:45 PM EDT This exam is auto-finalizing. It's purpose is for storage only. Gaudencio Scales DO [facility] FILM LIBRARY ORD ERABLES Performing Organization Address City/State/[facility] Co de Phone Number [place], [place] documented in this encounter Visit Diagnoses Not on filedocumented in this encounter Care Teams Analytical Scientist Relationship Specialty Start Date End Date Gaudencio Scales DO [address] [place] [address] PCP - General Family Medicine 11/28/23 documented as of this encounter
--- OUTSIDE RECORDS SUMMARY | 2024-07-27 12:44 | XMS_ITS | Encounter Summary ---
Author Organization [facility] Address [facility] [place] [address] Care Team Providers Care Medical Data Entry Clerk Name Role Phone Gaudencio Scales Antoine VERGARA Primary Care Provider [phone] Reason for Visit * Reason Onset Date Comments Medication Refill 06/25/2024 Encounter Details Date Type Department Care Team (Late st Contact Info) Description 06/25/2024 Refill Psychiatry [place] [phone], DEPUTY [facility] [place] [address] Social History Tobacco Use Types Packs/Day Years [...] from your doctor or pharmacy? Rarely 05/29/2024 [facility] Utilities Answer Date Recorded In the past 12 months has e electric, gas, oil, or water company threatened to shut off services in your home? No 06/01/2024 Overall Financial Resource Strain (CARDIA) Answe r Date Recorded How hard is it for you to pa y for the very basics like food, housing, medical care, and heating? Not very hard 05/29/2024 Hunger Vital Sign Answer Date Recorded Within the past 12 months, y ou worried that your food would run out before you got the money to buy more. Never true 06/01/20 24 Within the past 12 months, t he food you bought just didn't last and you didn't have money to get more. Never true 06/01/2024 PRAPARE - Transportation Answer Date Re corded In the past 12 months, has l ack of transportation kept you from medical appointments or from getting medications? No 05/20 In the past 12 months, has l ack of transportation kept you from meetings, work, or from getting things needed for daily living? No 06/01/2024 Housing Stability Vital Sign Answer Jeferson e [...] place to sleep or slept in a mcc (including now)? No 11/29/2023 Housing Stability Vital Sign Answer Jeferson e Recorded In the last 12 months, was t here a time when you were not able to pay the mortgage or rent on time? No 06/01/2024 In the past 12 months, how m any times have you moved where you were living? 1 06/01/2024 At any time in the past 12 m [facility], were you homeless or living in a mcc (including now)? No 06/01/2024 DH IPV Inpatient Questions Answer Date Recorded Does Anyone Try to Keep You From Having Contact with Others or Doing Things Outside Your Home? no 05/31/2024 Feels Threatened by Someone no 05/20 Feels Unsafe at Home or Work/School no 05/31/2024 Physical Signs of Abuse Present no 05/31/2024 Sex and Gender Information Value Date Recorded Sex Assigned at Not on file Gender Identity Not on file Sexual Orientation Not on file documented as of this encounter Miscellaneous Notes * Telephone Encounter - Tanya Banerjee, YUMIKO - 06/25/2024 2:59 PM EDT Prescription Renewal Request Name: Oksana Schultz [place] : 1965 Prescription(s) Requested: Requested Prescriptions Pending Prescriptions Disp Refills QUEtiapine (Seroquel) 100 mg tablet 90 tablet 3 Sig: Take 1 tablet by mouth nightly. QUEtiapine (Seroquel) 50 mg tablet 180 tablet 3 Sig: TAKE ONE TABLET BY MOUTH EVERY NIGHT IN ADDITION TO 100MG TABLET. MAY TAKE UP TO 200MG AT BEDTIME IF NEEDED FOR SLEEP Date of Encounter last in This Dept (If need an appointment send to secretaries to schedule): 04/10/2024 with Tatiana Rosario APRN Next Encounter in This Dept: Visit date not found. Note to medical assistant secretary requesting a follow up appointment. Date of Last Refill (for each medication): QUEtiapine (SEROquel) 100 mg tablet Authorized By: PROVIDER, HISTORICAL Take 100 mg by mouth nightly. 11/21/2023 QUEtiapine (Seroquel) 50 mg tablet Authorized By: Breanne Way APRN TAKE ONE TABLET BY MOUTH EVERY NIGHT IN ADDITION TO 100MG TABLET. MAY TAKE UP TO 200MG AT BEDTIME IF NEEDED FOR SLEEP Dispense: 60 tablet, Refills: 0 ordered 04/30/2024 Status of request: Pended No Known Allergies YUMIKO HERNANDEZ 06/25/24 3:09 PM documented in this encounter Plan of Treatment Upcoming Encounters Date Type Department Care Team (Latest Contact Info) Description 07/30/2024 8:40 AM EST Hospital [place] [address] Jr Fulton MD [facility] [place] [address] 07/30/2024 8:45 AM [place] [phone] Jr Fulton MD [facility] [place] [address] 07/30/2024 9:20 AM EST Hospital [place] [phone] Jr Fulton MD [facility] [address] 07/30/2024 10:51 AM EST Hospital Encounter Out[facility] [place] [address] Jr Fulton MD [facility] [address] 07/30/2024 10:51 AM EST Anesthesia Event [facility] [place] [address] Megan Oron[place] [address] 07/30/2024 10:51 AM EST - 07/30/2024 1:11 PM EST Surgery Out[facility] [address] Jr Fulton MD [facility] [place] [address] MASTECTOMY PARTIAL (WRVU 10.13) 08/22/2024 2:00 PM EST Office Visit General Surgery at [place] [address] Cindy Pierce APRN [facility] [place] [address] 08/22/2024 3:00 PM EST Office Visit Hematology and Oncology at [address] Soo Lyn MD [facility] [place] [address] 08/27/2024 9:30 AM EST Scheduled View Only Radiation Oncology at [address] [phone] Rad Nurse, Josr 08/27/2024 10:00 AM EST Office Visit Radiation Oncology at [address] [phone] Paradise Prado MD [facility] RADIATION [place] [address] 2024 1:00 PM EDT Office Visit Cardiology at [address] [phone] Ham Montenegro MD [facility] [place] [address] Scheduled Procedures Name Priority Associated Diagnoses Date/Ti [...] on filedocumented in this encounter Care Teams Medical Data Entry Clerk Relationship Specialty Start Date End Date Gaudencio Scales DO [address] [place] [address] PCP - General Family Medicine 11/28/23 documented as of this encounter
--- OUTSIDE RECORDS SUMMARY | 2024-07-27 12:44 | XMS_ITS | Encounter Summary ---
Author Organization [facility] Address [facility] [place] [address] Care Team Providers Care Senior Windows Systems Administrator Name Role Phone Loyda Gaudencio Antoine VERGARA Primary Care Provider [phone] Encounter Details Date Type Department Care Team (Latest Contact Info) Description 07/09/2024 Travel Social History Tobacco Use Types Packs/Day Years Used Date Smoking Tobacco: Former Cigarettes 1 40 0 11/17/1981 - 11/17/2021 Passive Smoke Exposure: Past Smokeless Tobacco: Never Alcohol Use Standard Drinks/Week Comments Not Currently 0 (1 standard drink = 0.6 oz pur e alcohol) B1300 Health Literacy Answer Date Recor ded How often do you need to hav e someone help you when you read instructions, pamphlets, or other written material from your doctor or pharmacy? Rarely 05/29/2024 [facility] Utilities Answer Date Recorded In the [...] place to sleep or slept in a jail (including now)? No 11/29/2023 Housing Stability Vital [...] time in the past 12 m [facility], were you homeless or living in a jail (including now)? No 07/09/2024 IPV Inpatient Questions [...] 8:40 AM EST Hospital [place] [phone] Jr Fulton MD [facility] [place] [address] 07/30/2024 8:45 AM EST [place] [phone] Jr Fulton MD [facility] [place] [address] 07/30/2024 9:20 AM EST Hospital Encounter Mammography at [place] [address] Jr Fulton MD [facility] [place] [address] 07/30/2024 10:51 AM EST Hospital Encounter Outpatient Surgery [facility] [place] [address] Jr Fulton MD [facility] [place] [address] 07/30/2024 10:51 AM EST Anesthesia Event [facility] [place] [address] Megan [place] [address] 07/30/2024 10:51 AM EST - 07/30/2024 1:11 PM EST Surgery [facility] [place] [address] Jr Fulton MD [facility] [place] [address] MASTECTOMY PARTIAL (WRVU 10.13) 08/22/2024 2:00 PM EST Office Visit General Surgery at [place] [address] Cindy Pierce APRN [facility] [place] [address] 08/22/2024 3:00 PM EST Office Visit Hematology [place] [address] Soo Lyn MD [facility] [place] [address] 08/27/2024 9:30 AM EST Scheduled View Only Radiation Oncology at [address] [phone] [address] [place] 08/27/2024 10:00 AM EST Office Visit Radiation Oncology at [address] [phone] Paradise Prado MD [facility] [place] [address] 2024 1:00 PM EDT Office Visit Cardiology at [address] [phone] Ham Montenegro MD [facility] [place] [address] Scheduled Procedures Name Priority Associated Diagnoses Date/Ti [...] on filedocumented in this encounter Care Teams Senior Windows Systems Administrator Relationship Specialty Start Date End Date Gaudencio Scales DO [address] [place] [address] PCP - General Family Medicine 11/28/23 documented as of this encounter
--- OUTSIDE RECORDS SUMMARY | 2024-07-27 12:44 | XMS_ITS | Encounter Summary ---
Author Organization [facility] Address [facility] [place] [address] Care Team Providers Care Paper Twister Name Role Phone Gaudencio Scales Antoine VERGARA Primary Care Provider [phone] Encounter Details Date Type Department Care Team (Latest Contact Info) Description 07/02/2024 Travel Social History Tobacco Use Types Packs/Day [...] from your doctor or pharmacy? Rarely 05/29/2024 [facility] Utilities Answer Date Recorded In the [...] place to sleep or slept in a usp (including now)? No 11/29/2023 Housing Stability Vital Sign Answer Jeferson e Recorded In the last 12 months, was t here a time when you were not able to pay the mortgage or rent on time? No 06/01/2024 In the past 12 months, how m any times have you moved where you were living? 1 06/01/2024 At any time in the past 12 m [facility], were you homeless or living in a usp (including now)? No 06/01/2024 IPV Inpatient Questions Answer Date Recorded Does [...] 8:40 AM EST Hospital Encounter [place] [phone] Jr Fulton MD [facility] [address] [place] [address] 07/30/2024 8:45 AM EST Appointment [place] [phone] Jr Fulton MD [facility] [address] [place] [address] 07/30/2024 9:20 AM EST Hospital Encounter Mammography at [address] Jr Fulton MD [facility] [place] [address] 07/30/2024 10:51 AM EST Hospital Encounter Outpatient Surgery Center [place] [phone] Jr Fulton MD [facility] [place] [address] 07/30/2024 10:51 AM EST Anesthesia Event Outpatient Surgery [facility] [place] [address] Megan [place]ron[place] [address] 07/30/2024 10:51 AM EST - 07/30/2024 1:11 PM EST Surgery [place] [address] Jr Fulton MD [facility] [place] [address] MASTECTOMY PARTIAL (WRVU 10.13) 08/22/2024 2:00 PM EST Office Visit General Surgery at [address] Cindy Pierce APRN [facility] [place] [address] 08/22/2024 3:00 PM EST Office Visit Hematology and Oncology at [place] [phone] Soo Lyn MD [facility] [place] [address] 08/27/2024 9:30 AM EST Scheduled View Only Radiation Oncology at [address] [phone] [address] [place] 08/27/2024 10:00 AM EST Office Visit Radiation Oncology at [address] [phone] Paradise Prado MD [facility] [place] [address] 2024 1:00 PM EDT Office Visit Cardiology at [address] [phone] Ham Montenegro MD [facility] [place] [address] Scheduled Procedures Name Priority Associated Diagnoses Date/Ti [...] on filedocumented in this encounter Care Teams Paper Twister Relationship Specialty Start Date End Date Gaudencio Scales DO [address] [place] [address] PCP - General Family Medicine 11/28/23 documented as of this encounter
--- OUTSIDE RECORDS SUMMARY | 2024-07-27 12:44 | XMS_ITS | Encounter Summary ---
Author Organization [facility] Address [facility] [place] [address] Care Team Providers Care Dry Cleaner Apprentice Name Role Phone Gaudencio Scales Primary Care Provider [phone] Encounter Details Date Type Department Care Team (Late st Contact Info) Description 06/20/2024 11:59 PM EDT [place]est[place] [phone] Indra Gay MD [facility] [place] [address] Anesthesia Record Procedure Summary Procedure Name Responsible [...] from your doctor or pharmacy? Rarely 05/29/2024 [facility] Utilities Answer Date Recorded In the [...] place to sleep or slept in a halfway (including now)? No 11/29/2023 Housing Stability Vital Sign Answer Jeferson e Recorded In the last 12 months, was t here a time when you were not able to pay the mortgage or rent on time? No 06/01/2024 In the past 12 months, how m any times have you moved where you were living? 1 06/01/2024 At any time in the past 12 m [facility], were you homeless or living in a halfway (including now)? No 06/01/2024 IPV Inpatient Questions [...] 8:40 AM EST Hospital Encounter Mammography at [place] [address] Jr Fulton MD [facility] [place] [address] 07/30/2024 8:45 AM EST Appointment Mammography at [place] [address] Jr Fulton MD [facility] [place] [address] 07/30/2024 9:20 AM EST Hospital Encounter Mammography at [place] [address] Jr Fulton MD [facility] [place] [address] 07/30/2024 10:51 AM EST Hospital Encounter Outpatient Surgery [facility] [place] [address] Jr Fulton MD [facility] [place] [address] 07/30/2024 10:51 AM EST Anesthesia Event Out[facility] [place] [address] Megan Orona APR[place] [address] 07/30/2024 10:51 AM EST - 07/30/2024 1:11 PM EST Surgery Outpatient [facility] [place] [address] Jr Fulton MD [facility] [place] [address] MASTECTOMY PARTIAL (WRVU 10.13) 08/22/2024 2:00 PM EST Office Visit General Surgery at [place] [phone] Cindy Pierce APRN [facility] [place] [address] 08/22/2024 3:00 PM EST Office Visit [place]ology [place] [address] Soo Lyn MD [facility] [place] [address] 08/27/2024 9:30 AM EST Scheduled View Only Radiation Oncology at [address] [phone] [address] [place] 08/27/2024 10:00 AM EST Office Visit Radiation Oncology at [address] [phone] Paradise Prado MD [facility] [place] [address] 2024 1:00 PM EDT Office Visit Cardiology at [address] [place] [address] Ham Montenegro MD [facility] [place] [address] Scheduled Procedures Name Priority Associated Diagnoses Date/Ti [...] on filedocumented in this encounter Care Teams Dry Cleaner Apprentice Relationship Specialty Start Date End Date Gaudencio Scales DO [address] [place] [address] PCP - General Family Medicine 11/28/23 documented as of this encounter
--- OUTSIDE RECORDS SUMMARY | 2024-07-27 12:44 | XMS_ITS | Encounter Summary ---
Author Organization [facility] Address [facility] [place] [address] Care Team Providers Care Molecular Geneticist Name Role Phone Gaudencio Scales Antoine VERGARA Primary Care Provider [phone] Encounter Details Date Type Department Care Team (Late st Contact Info) Description 06/22/2024 Telephone General Surgery at [facility] [place] [phone] Jr Fulton MD [facility] [address] [address] Social History Tobacco Use Types Packs/Day Years [...] In the past 12 months has e [place], gas, oil, or water [employer] threatened to shut off services in your [...] any time in the past 12 m [facility], were you homeless or living in a chcf (including now)? No 06/01/2024 DH IPV Inpatient [...] Telephone Encounter - Jr Fulton MD - 06/22/2024 1:52 PM EDT I called her today and reminded her to stop the anticoagulants prior to surgery, as described in mylast office note. documented in this encounter Plan of Treatment Upcoming Encounters Date Type Department Care Team (Latest Contact Info) Description 07/30/2024 8:40 AM EST Hospital Encounter Mammography at [place] [address] Jr Fulton MD [facility] [address] 07/30/2024 8:45 AM EST Appointment Mammography at [address] Jr Fulton MD [facility] [place] [address] 07/30/2024 9:20 AM EST Hospital Encounter Mammography at [address] Jr Fulton MD [facility] [address] [place] [address] 07/30/2024 10:51 AM EST Hospital Encounter Outpatient Surgery Center [place] [phone] Jr Fulton MD [facility] [address] [place] [address] 07/30/2024 10:51 AM EST Anesthesia Event Outpatient [facility] [place] [address] Megan Orona [place] [address] 07/30/2024 10:51 AM EST - 07/30/2024 1:11 PM EST Surgery Outpatient [facility] [place] [phone] Jr Fulton MD [facility] [address] [place] [address] MASTECTOMY PARTIAL (WRVU 10.13) 08/22/2024 2:00 PM EST Office [place] [address] Cindy Pierce APRN [facility] [place] [address] 08/22/2024 3:00 PM EST Office Visit Hematology [place] [phone] Soo Lyn MD [facility] [place] [address] 08/27/2024 9:30 AM EST Scheduled View Only Radiation Oncology at [address] [phone] St Josr [place] 08/27/2024 10:00 AM EST Office Visit Radiation Oncology at [address] [phone] Paradise Prado MD [facility] [place] [address] 2024 1:00 PM EDT Office Visit Cardiology at [address] [place] [phone] Ham Montenegro MD [facility] [place] [address] Scheduled Procedures Name Priority Associated Diagnoses Date/Ti [...] on filedocumented in this encounter Care Teams Molecular Geneticist Relationship Specialty Start Date End Date Gaudencio Scales DO [address] [place] [address] PCP - General Family Medicine 11/28/23 documented as of this encounter
--- OUTSIDE RECORDS SUMMARY | 2024-07-27 12:44 | XMS_ITS | Encounter Summary ---
Author Organization [facility] Address [facility] Jf [place] [address] Care Team Providers Care Wood Heel Finisher Name Role Phone Loyda Gaudencio Antoine VERGARA Primary Care Provider [phone] Reason for Visit * Reason Comments Establish Care Coronary Artery Disease Preoperative Cardiovascular * Consultation (Routine) - Closed Specialty Diagnoses / Procedures Referred By Contac t Referred To Contact Cardiology Diagnoses NSTEMI (non-ST elevated myocardial infarction) Arlin Jackson MD [facility] [place] [address] [facility] Cardiology [address] [phone] Referral ID Status Reason Start Date Expiration Date V isits Requested Visits Authorized [id number] Closed Consult, Test & Treat 06/04/2024 06/04/2025 1 1 Encounter Details Date Type Department Care Team (Latest Contact Info) Description 07/02/2024 3:20 PM EDT Office Visit Cardiology at [address] [phone] Ham Montenegro MD [facility] [place] [address] ASCVD (arteriosclerotic cardiovascular disease); Cardiomyopathy, ischemic; Nonrheumatic aortic valve stenosis; PAF (paroxysmal atrial fibrillation) Social History Tobacco Use Types Packs/Day Years [...] from your doctor or pharmacy? Rarely 05/29/2024 [facility] Utilities Answer Date Recorded In the [...] place to sleep or slept in a fpc (including now)? No 11/29/2023 Housing Stability Vital Sign Answer Jeferson e Recorded In the last 12 months, was t here a time when you were not able to pay the mortgage or rent on time? No 06/01/2024 In the past 12 months, how m any times have you moved where you were living? 1 06/01/2024 At any time in the past 12 m [facility], were you homeless or living in a fpc (including now)? No 06/01/2024 IPV Inpatient Questions [...] Sign Reading Time Taken Comments Blood Pressure 104/56 07/02/2024 3:37 PM EDT Pulse 91 07/02/2024 3:37 PM EDT Temperature - - Respiratory Rate - - Oxygen Saturation - - Inhaled Oxygen Concentration - - Weight 94.3 kg (208 lb) 07/02/2024 3:37 PM EDT Height 166.4 cm (5' 5.5) 07/02/2024 3:37 PM EDT Body Mass Index 34.09 07/02/2024 3:37 PM EDT documented in this encounter Patient Instructions * Patient Instructions* Ham Montenegro MD - 07/02/2024 3:20 PM EDT You can stop taking losartan (your blood pressure is/has been on the low side) documented in this encounter Progress Notes * Ham Montenegro MD - 07/02/2024 3:20 PM EDT Images from the original note were not included. CARDIOLOGY NEW OUTPATIENT PRIMARY CARE PROVIDER: Gaudencio Scales DO PROBLEM LIST: Patient Active Problem List Diagnosis ASCVD (arteriosclerotic cardiovascular disease) Cardiac Catheterization: (11/2023) RIGHT dominance Indication: NSTE-ACS LVEDP 16 Artery Lesion Intervention LM Distal 80 3.5 x 12 [place] LAD Os 80 POBA LCx Stent patent Os 75 POBA RCA Os 90 (ISR) Prox 90 (ISR) 3.5 x 22 [place] POBA NB: RCA intervened on first day, left system on another in a staged fashion Cardiomyopathy, ischemic 05/2024 TTE: EF 57%. Septal HK. RV nl Nonrheumatic aortic valve stenosis 2021: s/p DARSHANA (Evolut) 05/2024 TTE: MG 2 mmHg, no regurgitation PAF (paroxysmal atrial fibrillation) Malignant neoplasm of upper-outer quadrant of left breast in female, estrogen receptor negative 02/10/24 bx [facility]: ER-/IL-/HER2 negative left breast IDC, grade 3, and DCIS grade 3. 01/17/24 mammogram [facility]: 1.1 cm left breast UOQ. MEDICATIONS: Current Outpatient Medications Medication Instructions apixaban (ELIQUIS) 5 mg, Oral, 2 TIMES DAILY atorvastatin (LIPITOR) 80 mg, Oral, DAILY AT NOON baclofen (Lioresal) 10 mg tablet 0.5 tablets, Oral, 2 TIMES DAILY clopidogreL (PLAVIX) 75 mg, Oral, DAILY diclofenac (VOLTAREN) 2 g, Topical (Top), 2 TIMES DAILY diphenhydrAMINE/aluminum-magnesium hydroxide with simethicone/lidocaine (BMX) (6.67 mg-0.83 mg-13.33 mg-1.33 mg/mL) oral liquid 20-30 mLs, Oral, EVERY 4 HOURS PRN fish oil-omega-3 fatty acids (FISH OIL) 2 g, Oral, DAILY ipratropium-albuteroL (Duoneb) 0.5 mg-3 mg(2.5 mg base)/3 mL Solution for Nebulization 3 mLs, Nebulization, EVERY 4 HOURS iron,carb/vit C/vit B12/folic (IRON 100 PLUS ORAL) Oral lamoTRIgine (LaMICtal) 100 mg tablet 1 tablet, Oral, 2 TIMES DAILY levothyroxine (SYNTHROID) 100 mcg, Oral lidocaine (Xylocaine) 2 % Solution 1-2 mLs, Oral, PRN metoprolol succinate XL (TOPROL-XL) 50 mg, Oral, 2 TIMES DAILY multivitamin (THERAGRAN) Tablet 1 tablet, Oral, DAILY nitroGLYcerin (NITROSTAT) 0.4 mg, Sublingual, EVERY 5 MIN PRN omeprazole (PRILOSEC) 20 mg capsule 20M Capsule(s), PO, Once daily ondansetron (ZOFRAN) 8 mg, Oral, EVERY 8 HOURS PRN oxyCODONE-acetaminophen (Percocet) 10-325 mg tablet 1 tablet, Oral, EVERY 8 HOURS PRN QUEtiapine (Seroquel) 50 mg tablet TAKE ONE TABLET BY MOUTH EVERY NIGHT IN ADDITION TO 100MG TABLET. MAY TAKE UP TO 200MG AT BEDTIME IF NEEDED FOR SLEEP QUEtiapine (SEROQUEL) 100 mg, Oral, NIGHTLY torsemide (DEMADEX) 20 mg, Oral, DAILY Subjective: Patient ID: Oksana Betancourt is a 58 y.o. female. HPI: 58f presents to establish cardiovascular care. Has pertinent history as above. She was recently admitted in May after her last cycle of chemotherapy with what was felt to be acute volume overload. She was transferred to [facility] after requiring BPAP. She was switched from lasix to torsemide. Since then, she has been doing well. Reasonable activity is without angina nor new untoward dyspnea. She has been with exertional fatigue since the diagnosis/treatment of breast CA. 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 Objective: Patient Vitals for the past 24 hrs: Pulse BP 07/02/24 1537 91 104/56 Gen: pleasant female in NAD Cor: rrr, s1/s2 of nl character and amplitude, no pathologic m/r/g. Estimated RAP not elevated. Carotids without bruit. Pulm: CTAB. Normal diaphragmatic movement without use of accessory muscles EKG: nsr via LBBB. Qtc 474 ms TTE: reviewed, as above Assessment and Plan: ASCVD (arteriosclerotic cardiovascular disease) No angina per history. Based on position of the disease, I would suspect that the history of mantlefield radiation played a large role in its development - Anti-Thrombosis: plavix 75, eliquis. - Anti- Lipemic: lipitor 80 - Anti- Anginals: GTN PRN, toprol 50 bid Cardiomyopathy, ischemic No failure by history nor exam. - Diuresis: torsemide 20 - Cardioprotection: - Beta Blockade: toprol - RAASi: d/c losartan; low BP - MC Blockade: not indicated - SGLT2i: not indicated - Devices: not indicated Nonrheumatic aortic valve stenosis No issues per history nor exam. - plavix, eliquis - Because the valve is not mechanical, VKA is not required for this indication - Anti-biotic prophylaxis required as directed against expected bacterial rajiv of at-risk procedures. PAF (paroxysmal atrial fibrillation) No recent episodes - Strategy: paroxysmal rate. Continue toprol - OAC: eliquis 5 bid - Reversible Causes: none identified Patient's cardiac status is low-intermediate risk for intermediate risk surgery. I do not find any cardiac maladies that are sub-optimized nor further modifiable. Please see communications regarding interventional input on JEFERSON RTC 5 months (~ 11/2024). Will switch plavix to ASA at that time Ham Montenegro MD documented in this encounter Miscellaneous Notes * Assessment & Plan Note - Ham Montenegro MD - 07/02/2024 4:11 PM EDT Associated Problem(s): PAF (paroxysmal atrial fibrillation) No recent episodes - Strategy: paroxysmal rate. Continue toprol - OAC: eliquis 5 bid - Reversible Causes: none identified * Assessment & Plan Note - Ham Montenegro MD - 07/02/2024 4:11 PM EDT Associated Problem(s): Nonrheumatic aortic valve stenosis No issues per history nor exam. - plavix, eliquis - Because the valve is not mechanical, VKA is not required for this indication - Anti-biotic prophylaxis required as directed against expected bacterial rajiv of at-risk procedures. * Assessment & Plan Note - Ham Montenegro MD - 07/02/2024 4:10 PM EDT Associated Problem(s): Cardiomyopathy, ischemic No failure by history nor exam. - Diuresis: torsemide 20 - Cardioprotection: - Beta Blockade: toprol - RAASi: d/c losartan; low BP - MC Blockade: not indicated - SGLT2i: not indicated - Devices: not indicated * Assessment & Plan Note - Ham Montenegro MD - 07/02/2024 4:10 PM EDT Associated Problem(s): ASCVD (arteriosclerotic cardiovascular disease) No angina per history. Based on position of the disease, I would suspect that the history of mantlefield radiation played a large role in its development - Anti-Thrombosis: plavix 75, eliquis. - Anti- Lipemic: lipitor 80 - Anti- Anginals: GTN PRN, toprol 50 bid documented in this encounter Plan of Treatment Upcoming Encounters Date Type Department Care Team (Latest Contact Info) Description 07/30/2024 8:40 AM EST Hospital Encounter Mammography at [address] Jr Fulton MD [facility] [place] [address] 07/30/2024 8:45 AM EST Appointment Mammography at [address] Jr Fulton MD [facility] [address] [place] [address] 07/30/2024 9:20 AM EST Hospital Encounter Mammography at [place] [phone] Jr Fulton MD [facility] [place] [address] 07/30/2024 10:51 AM EST Hospital Encounter Outpatient Surgery [facility] [place] [phone] Jr Fulton MD [facility] [place] [address] 07/30/2024 10:51 AM EST Anesthesia Event [facility] [place] [phone] Megan Orona APR[place] [address] 07/30/2024 10:51 AM EST - 07/30/2024 1:11 PM EST Surgery Outpatient [facility] [place] [phone] Jr Fluton MD [facility] [place] [address] MASTECTOMY PARTIAL (WRVU 10.13) 08/22/2024 2:00 PM EST Office Visit General Surgery at [place] [phone] Cindy Pierce APRN [facility] [place] [address] 08/22/2024 3:00 PM EST Office Visit Hematology and Oncology at [place] [phone] Soo Lyn MD [facility] [place] [address] 08/27/2024 9:30 AM EST Scheduled View Only Radiation Oncology at [address] [phone] St Josr [place] 08/27/2024 10:00 AM EST Office Visit Radiation Oncology at [address] [address] Paradise Prado MD [facility] [place] [address] 2024 1:00 PM EDT Office Visit Cardiology at [address] [place] [phone] Ham Montenegro MD [facility] [place] [address] Scheduled Procedures Name Priority Associated Diagnoses Date/Ti [...] as of this encounter Visit Diagnoses Diagnosis ASCVD (arteriosclerotic cardiovascular disease) Unspecified cardiovascular disease Cardiomyopathy, ischemic Other specified forms of chronic ischemic heart disease Nonrheumatic aortic valve stenosis Aortic valve disorders PAF (paroxysmal atrial fibrillation) Atrial fibrillation documented in this encounter Care Teams Wood Heel Finisher Relationship Specialty Start Date End Date Gaudencio Scales DO [facility] [place] [address] PCP - General Family Medicine 11/28/23 documented as of this encounter
--- OUTSIDE RECORDS SUMMARY | 2024-07-27 12:44 | XMS_ITS | Encounter Summary ---
Author Organization [facility] Address [facility] [place] [address] Care Team Providers Care Steel Die Press Set Up Operator Name Role Phone Gaudencio Scales DO Primary Care Provider [phone] Encounter Details Date Type Department Care Team (Late st Contact Info) Description 07/08/2024 9:00 PM EDT Ancillary Procedure Radiology Library at [facility] MAURO [place] [phone] Gaudencio Scales DO [address] [place], [place] [phone] Social History Tobacco Use Types Packs/Day Years [...] from your doctor or pharmacy? Rarely 05/29/2024 [facility] Utilities Answer Date Recorded In the past 12 months has [employer], gas, oil, or water [employer] threatened to shut off services in your [...] time in the past 12 m [facility], were you homeless or living in [...] 8:40 AM EST Hospital Encounter Mammography at [facility] [place] [address] Jr Fulton MD [facility] [address] [place] [address] 07/30/2024 8:45 AM EST Appointment Mammography at [address] Jr Fulton MD [facility] [place] [address] 07/30/2024 9:20 AM EST Hospital Encounter Mammography at [address] Jr Fulton MD [facility] [place] [address] 07/30/2024 10:51 AM EST Hospital Encounter Outpatient [place] [address] Jr Fulton MD [facility] [place] [address] 07/30/2024 10:51 AM EST Anesthesia Event Outpatient Surgery Center [place] [address] Megan Oron[place] [address] 07/30/2024 10:51 AM EST - 07/30/2024 1:11 PM EST Surgery Outpatient Surgery [facility] [place] [phone] Jr Fulton MD [facility] [place] [address] MASTECTOMY PARTIAL (WRVU 10.13) 08/22/2024 2:00 PM EST Office [place] [address] Cindy Pierce APRN [facility] [place] [address] 08/22/2024 3:00 PM EST Office Visit Hematology [place] [address] Soo Lyn MD [facility] [place] [address] 08/27/2024 9:30 AM EST Scheduled View Only Radiation Oncology at [address] [address] Rad Nurse, [facility] [place] 08/27/2024 10:00 AM EST Office Visit Radiation Oncology at [address] [address] Paradise Prado MD [facility] [place] [address] 2024 1:00 PM EDT Office Visit Cardiology at [address] [place] [address] Ham Montenegro MD [facility] [place] [place] [address] Scheduled Procedures Name Priority Associated Diagnoses Date/Ti [...] Associated Diagnosis Comments FILM LIBRARY STORAGE ONLY CT HEAD Routine 07/08/2024 8:45 PM EDT documented in this encounter Results * Film Library- Storage Only CT Head (07/08/2024 8:45 PM EDT) Narrative RAD - 07/08/2024 8:45 PM EDT This exam is auto-finalizing. It's purpose is for storage only. Gaudencio Scales DO [facility] FILM LIBRARY ORD ERABLES Performing Organization Address City/State/[facility] Co de Phone Number [place], [place] documented in this encounter Visit Diagnoses Not on filedocumented in this encounter Care Teams Steel Die Press Set Up Operator Relationship Specialty Start Date End Date Gaudencio Scales DO [address] [place] [address] PCP - General Family Medicine 11/28/23 documented as of this encounter
--- OUTSIDE RECORDS SUMMARY | 2024-07-27 12:44 | XMS_ITS | Encounter Summary ---
Author Organization [facility] Address [facility] [place] [id number] Care Team Providers Care Extension Course Counselor Name Role Phone Gaudencio Scales DO Primary Care Provider [phone] Encounter Details Date Type Department Care Team (Late st Contact Info) Description 07/08/2024 8:55 PM EDT Ancillary Procedure Radiology Library at [facility] [place] [address] Gaudencio Scales DO [address] [place], [place] [phone] Social History Tobacco Use Types Packs/Day Years [...] your doctor or pharmacy? Rarely 05/29/2024 [facility] Utilities Answer Date Recorded In the past 12 months has [employer] gas, oil, or water [employer] threatened to shut off services in your [...] place to sleep or slept in a group home (including now)? No 11/29/2023 Housing Stability Vital Sign Answer Jeferson e Recorded In the last 12 months, was t here a time when you were not able to pay the mortgage or rent on time? No 07/09/2024 In the past 12 months, how m any times have you moved where you were living? 1 07/09/2024 At any time in the past 12 m [facility], were you homeless or living in a group home (including now)? No 07/09/2024 IPV Inpatient Questions [...] 8:40 AM EST Hospital Encounter Mammography at [facility] [place] [address] Jr Fulton MD [facility] [address] [address] 07/30/2024 8:45 AM EST Appointment Mammography at [address]1000 Jr Fulton MD [facility] [place] [address] 07/30/2024 9:20 AM EST Hospital Encounter Mammography at [address] Jr Fulton MD [facility] [place] [address] 07/30/2024 10:51 AM EST Hospital Encounter [place]patient [place] [address] Jr Fulton MD [facility] [place] [address] 07/30/2024 10:51 AM EST Anesthesia Event Outpatient Surgery Center [place] [address] Megan [place] [address] 07/30/2024 10:51 AM EST - 07/30/2024 1:11 PM EST Surgery Outpatient Surgery [facility] [place] [phone] Jr Fulton MD [facility] [place] [address] MASTECTOMY PARTIAL (WRVU 10.13) 08/22/2024 2:00 PM EST Office Visit [place] [address] Cindy Pierce APRN [facility] [place] [address] 08/22/2024 3:00 PM EST Office Visit Hematology [place] [address] Soo Lyn MD [facility] [place] [address] 08/27/2024 9:30 AM EST Scheduled View Only Radiation Oncology at [address] [phone] Rad Nurse, [facility] [place] 08/27/2024 10:00 AM EST Office Visit Radiation Oncology at [address] [address] Paradise Prado MD [facility] [place] [address] 2024 1:00 PM EDT Office Visit Cardiology at [address] [place] [address] Ham Montenegro MD [facility] [place] [address] Scheduled Procedures Name Priority Associated Diagnoses Date/Ti [...] Diagnosis Comments FILM LIBRARY STORAGE ONLY CT ABDOMEN AND PELVIS Routine 07/08/2024 8:45 PM EDT documented in this encounter Results * Film Library- Storage Only CT Abdomen & Pelvis (07/08/2024 8:45 PM EDT) Narrative LATASHA - 07/08/2024 8:45 PM EDT This exam is auto-finalizing. It's purpose is for storage only. Gaudencio Scales DO Gavin FILM LIBRARY ORD ERABLES Performing Organization Address City/State/[facility] Co de Phone Number [place], [place] documented in this encounter Visit Diagnoses Not on filedocumented in this encounter Care Teams Extension Course Counselor Relationship Specialty Start Date End Date Gaudencio Scales DO [address] [place] [address] PCP - General Family Medicine 11/28/23 documented as of this encounter
--- OUTSIDE RECORDS SUMMARY | 2024-07-27 12:45 | XMS_ITS | Encounter Summary ---
Author Organization [facility] Address [facility] [place] [address] Care Team Providers Care Survey Interviewer Name Role Phone Gaudencio Scales Primary Care Provider [phone] Encounter Details Date Type Department Care Team (Late st Contact Info) Description 06/14/2024 Orders Only Hematology and Oncology at [facility] [place] [address] Tresa Zapata Social History Tobacco Use Types Packs/Day Years [...] from your doctor or pharmacy? Rarely 05/29/2024 [facility] Utilities Answer Date Recorded In [...] any time in the past 12 m [facility], were you homeless or living in a correction (including now)? No 06/01/2024 IPV Inpatient Questions [...] as of this encounter Progress Notes * Tresa Zapata - 06/14/2024 9:34 AM EDT New Breast Cancer Referral Oksana [employer] [id number] Biopsy Location: Biopsy Date: Date of referral: []Packet sent []Patient notified of appointments [] Ligia to deliver packet at first appt Diagnoses: Receptors: ER []Positive []Negative [place] []Positive []Negative Her2 []Positive []Negative []Equivocal ( Fish ordered) Tumor size: Scans: []MRI []CT []Bone scan []PET []ECHO []Other Lab: Surgeon: []Sara []Gwen []Donaldo Initial Consult Date-July 25, 2024 Post/OP Date- Surgical plan after Neoadjuvant chemo date- Plastics: []Freed []Nigriny []Lawson Date of Surgery: Med/Onc: []Coco []Eboni []Suellen []Vahdat []Outside Facility Neoadjuvant []Yes []No Rad/Onc: []Matta []Fariss []McVorran []Outside Facility Referral sent to Physical Therapy: []Yes []No - Physical Therapy Scheduled Outside Records: []Path slides Requested []Path here [] Images Request []Images here [] Clinic notes Requested [] Notes Here [] Image review ordered [] Image Review complete Triage Provider and discussion notes: documented in this encounter Plan of Treatment Upcoming Encounters Date Type Department Care Team (Latest Contact Info) Description 07/30/2024 8:40 AM EST Hospital [place] [address] Jr Fulton MD [facility] [place] [address] 07/30/2024 8:45 AM EST Appointment Mammography at [place] [phone] Jr Fulton MD [facility] [place] [address] 07/30/2024 9:20 AM EST Hospital Encounter Mammography at [place] [phone] Jr Fulton MD [facility] [place] [address] 07/30/2024 10:51 AM EST Hospital Encounter Outpatient Surgery Center [place] [phone] Jr Fulton MD [facility] [place] [address] 07/30/2024 10:51 AM EST Anesthesia Event [place] [address] Megan Oron[place] [address] 07/30/2024 10:51 AM EST - 07/30/2024 1:11 PM EST Surgery Outpatient [facility] [place] [phone] Jr Fulton MD [facility] [place] [address] MASTECTOMY PARTIAL (WRVU 10.13) 08/22/2024 2:00 PM EST Office Visit General Surgery at [place] [phone] Cindy Pierce APRN [facility] [place] [address] 08/22/2024 3:00 PM EST Office Visit Hematology and Oncology at [place] [phone] Soo Lyn MD [facility] [place] [address] 08/27/2024 9:30 AM EST Scheduled View Only Radiation Oncology at [address] [phone] [address] Josr [place] 08/27/2024 10:00 AM EST Office Visit Radiation Oncology at [address] [address] Paradise Prado MD [facility] [address] 2024 1:00 PM EDT Office Visit Cardiology at [address] [place] [address] Ham Montenegro MD [facility] [place] [address] Scheduled Procedures Name Priority Associated Diagnoses Date/Ti [...] on filedocumented in this encounter Care Teams Survey Interviewer Relationship Specialty Start Date End Date Gaudencio Scales DO [address] [place] [address] PCP - General Family Medicine 11/28/23 documented as of this encounter
--- OUTSIDE RECORDS SUMMARY | 2024-07-27 12:45 | XMS_ITS | Encounter Summary ---
Author Organization [facility] Address [facility] [place] [address] Care Team Providers Care Monogram Operator Name Role Phone RachelmauryGaudencio DO Primary Care Provider [phone] Encounter Details Date Type Department Care Team (Latest Contact Info) Description 06/06/2024 11:30 AM EDT TH Visit (TeleHealth) [place] [phone] Fernando Clarke, [facility] Malignant neoplasm of upper-outer quadrant of left breast in female, estrogen receptor negative Social History Tobacco Use Types Packs/Day Years [...] from your doctor or pharmacy? Rarely 05/29/2024 [facility] Utilities Answer Date Recorded In the past 12 months has th e [employer], gas, oil, or water [employer] threatened to shut off services in your [...] place to sleep or slept in a mcfp (including now)? No 11/29/2023 Housing Stability Vital Sign Answer Jeferson e Recorded In the last 12 months, was t here a time when you were not able to pay the mortgage or rent on time? No 06/01/2024 In the past 12 months, how m any times have you moved where you were living? 1 06/01/2024 At any time in the past 12 m [facility], were you homeless or living in a mcfp (including now)? No 06/01/2024 IPV Inpatient Questions [...] as of this encounter Progress Notes * Fernando Clarke, [facility] - 06/06/2024 11:30 AM EDT Patient on schedule for CINV f/u for today. Was just discharged yesterday from hospital. Since on schedule will not review CINV but plan to see how she was doing. Called patient and was unable to reach. Left message with call back number. Planned pharmacy f/u? After next treatment pending plan (currently scheduled for 06/19). TBD and will schedule call post infusion. Fernando Clarke RPH 06/06/24 documented in this encounter Plan of Treatment Upcoming Encounters Date Type Department Care Team (Latest Contact Info) Description 07/30/2024 8:40 AM EST Hospital Encounter Mammography at [place] [phone] Jr Fulton MD [facility] [place] [address] 07/30/2024 8:45 AM EST [place] [phone] Jr Fulton MD [facility] [place] [address] 07/30/2024 9:20 AM EST Hospital [place] [address] Jr Fulton MD [facility] [place] [address] 07/30/2024 10:51 AM EST Hospital Encounter [place]patient [place] [address] Jr Fulton MD [facility] [place] [address] 07/30/2024 10:51 AM EST Anesthesia Event [place]patient [place] [address] Megan Orona [place] [address] 07/30/2024 10:51 AM EST - 07/30/2024 1:11 PM EST Surgery [place]patient [place] [address] Jr Fulton MD [facility] [place] [address] MASTECTOMY PARTIAL (WRVU 10.13) 08/22/2024 2:00 PM EST Office Visit General Surgery at [address] Cindy Pierce APRN [facility] [place] [address] 08/22/2024 3:00 PM EST Office Visit Hematology [place] [address] Soo Lyn MD [facility] [place] [address] 08/27/2024 9:30 AM EST Scheduled View Only Radiation Oncology at [address] [address] [address] Nurse[address] [place]valles 08/27/2024 10:00 AM EST Office Visit Radiation Oncology at [address] [address] Paradise Prado MD [facility] DR [place] [address] 2024 1:00 PM EDT Office Visit Cardiology at [address] [place] [phone] Ham Montenegro MD [facility] [place] [address] Scheduled Procedures Name Priority Associated Diagnoses Date/Ti [...] estrogen receptor negative documented in this encounter Care Teams Monogram Operator Relationship Specialty Start Date End Date Gaudencio Scales DO [address] [place] [address] PCP - General Family Medicine 11/28/23 documented as of this encounter
--- OUTSIDE RECORDS SUMMARY | 2024-07-27 12:45 | XMS_ITS | Encounter Summary ---
Author Organization [facility] Address [facility] [place] [address] Care Team Providers Care Solar Installer Pv Name Role Phone RachelmauryGaudencio DO Primary Care Provider [phone] Encounter Details Date Type Department Care Team (Late st Contact Info) Description 06/12/2024 Telephone Radiation Oncology at [address] [address] Enriqueta Christopher Social History Tobacco Use Types Packs/Day Years [...] doctor or pharmacy? Rarely 05/29/[address] [facility] Utilities Answer Date Recorded In [...] any time in the past 12 m [facility], were you homeless or living in [...] encounter Miscellaneous Notes * Telephone Encounter - Enriqueta Christopher - 06/12/2024 1:19 PM EDT Lvm @ 1:20 06/12/24 to let the pt know we have canceled her appt for 06/19 [facility] documented in this encounter Plan of Treatment Upcoming Encounters Date Type Department Care Team (Latest Contact Info) Description 07/30/2024 8:40 AM EST Hospital Encounter Mammography at [place] [phone] Jr Fulton MD [facility] [place] [address] 07/30/2024 8:45 AM EST Appointment Mammography at [place] [address] Jr Fulton MD [facility] [address] [place] [address] 07/30/2024 9:20 AM EST Hospital Encounter Mammography at [place] [address] Jr Fulton MD [facility] [address] [place] [address] 07/30/2024 10:51 AM EST Hospital Encounter Outpatient Surgery Center [place] [phone] Jr Fulton MD [facility] [address] [place] [address] 07/30/2024 10:51 AM EST Anesthesia Event [place] [address] Megan Orona [place] [address] 07/30/2024 10:51 AM EST - 07/30/2024 1:11 PM EST Surgery Outpatient Surgery [facility] [place] [phone] Jr Fulton MD [facility] [address] [place] [address] MASTECTOMY PARTIAL (WRVU 10.13) 08/22/2024 2:00 PM EST Office [place] [address] Cindy Pierce APRN [facility] [place] [address] 08/22/2024 3:00 PM EST Office Visit Hematology [place] [phone] Soo Lyn MD [facility] [place] [address] 08/27/2024 9:30 AM EST Scheduled View Only Radiation Oncology at [address] [phone] Rad Nurse, [facility] [place] 08/27/2024 10:00 AM EST Office Visit Radiation Oncology at [address] [phone] Paradise Prado MD [facility] [place] [address] 2024 1:00 PM EDT Office Visit Cardiology at [address] [place] [phone] Ham Montenegro MD [facility] [place] [address] Scheduled Procedures Name Priority Associated Diagnoses Date/Ti [...] on filedocumented in this encounter Care Teams Solar Installer Pv Relationship Specialty Start Date End Date Gaudencio Scales DO [address] [facility] [place] [address] PCP - General Family Medicine 11/28/23 documented as of this encounter
--- OUTSIDE RECORDS SUMMARY | 2024-07-27 12:45 | XMS_ITS | Encounter Summary ---
Author Organization [facility] Address [facility] [place] [address] Care Team Providers Care Sustainability Coordinator Name Role Phone Gaudencio Scales DO Primary Care Provider [phone] Reason for Visit * Reason Onset Date Comments Follow-up 06/07/2024 Encounter Details Date Type Department Care Team (Late st Contact Info) Description 06/07/2024 Telephone Hematology [place] [address] Nichol Perez RN INFUSION ROOM Follow-up Social History Tobacco Use Types Packs/Day Years [...] from your doctor or pharmacy? Rarely 05/29/2024 [facility] Utilities Answer Date Recorded In the past 12 months has [employer], gas, oil, or water [employer] threatened to shut off services in your [...] any time in the past 12 m [facility], were you homeless or living in a fpc (including now)? No 06/01/2024 [facility] IPV Inpatient [...] encounter Miscellaneous Notes * Telephone Encounter - Nichol Perez RN - 06/07/2024 8:21 AM EDT Call placed to patient to follow-up on recent discharge from hospital Spoke w/ pt who stated she is still a little nauseated and weak but 'that's to be expected'. Has antiemetics. No cardiac s/s aside from fatigue. Denies any SOB, CP or any other cardiac/respiratory s/s. She doesn't recall going to the hospital. Reviewed plan per hem onc consult while inpt- stop chemo, proceed w/ surgery. Will check w/ team regarding the 06/[address] Pt will receive updated schedule in [facility] if any changes made. Pt is aware to call clinic w/ any concerns/questions. documented in this encounter Plan of Treatment Upcoming Encounters Date Type Department Care Team (Latest Contact Info) Description 07/30/2024 8:40 AM EST Hospital Encounter Mammography at [place] [phone] Jr Fulton MD [facility] [place] [address] 07/30/2024 8:45 AM EST Appointment [place] [address] Jr Fulton MD [facility] [place] [address] 07/30/2024 9:20 AM EST Hospital Encounter [place] [address] Jr Fulton MD [facility] [address] [place] [address] 07/30/2024 10:51 AM EST Hospital Encounter [place]patient [place] [address] Jr Fulton MD [facility] [place] [address] 07/30/2024 10:51 AM EST Anesthesia Event [place] [address] Megan Orona APRN ANESTHESIOLOGY [place], [place] [phone] 07/30/2024 10:51 AM EST - 07/30/2024 1:11 PM EST Surgery Outpatient Surgery Center [place] [phone] Jr Fulton MD [facility] [place] [address] MASTECTOMY PARTIAL (WRVU 10.13) 08/22/2024 2:00 PM EST Office [place] [address] Cindy Pierce APRN [facility] [place] [address] 08/22/2024 3:00 PM EST Office Visit Hematology and Oncology at [place] [phone] Soo Lyn MD [facility] [place] [address] 08/27/2024 9:30 AM EST Scheduled View Only Radiation Oncology at [address] [phone] St Josr [place] 08/27/2024 10:00 AM EST Office Visit Radiation Oncology at [address] [phone] Paradise Prado MD [facility] [place] [address] 2024 1:00 PM EDT Office Visit Cardiology at [address] [place] [address] Ham Montenegro MD [facility] [address] Scheduled Procedures Name Priority Associated Diagnoses Date/Ti [...] on filedocumented in this encounter Care Teams Sustainability Coordinator Relationship Specialty Start Date End Date Gaudencio Scales DO [address] [facility] [place] [address] PCP - General Family Medicine 11/28/23 documented as of this encounter
--- OUTSIDE RECORDS SUMMARY | 2024-07-27 12:45 | XMS_ITS | Encounter Summary ---
Author Organization [facility] Address [facility] [place] [address] Care Team Providers Care Phosphoric Acid Supervisor Name Role Phone Gaudencio Scales Primary Care Provider [phone] Encounter Details Date Type Department Care Team (Latest Contact Info) Description 06/06/2024 Multidisciplinary Ca re Committee Hematology [place] [address] Evita Sepulveda MD [facility] DR HEMATOLOGY [place] [address] Social History Tobacco Use Types Packs/Day Years [...] doctor or pharmacy? Rarely 05/29/2024 [facility] Utilities Answer Date Recorded In the past 12 months has e [employer], gas, oil, or water [employer] threatened to shut off services in your [...] time in the past 12 m [facility], were you homeless or living in [...] as of this encounter Progress Notes * Evita Sepulveda MD - 06/06/2024 11:59 PM EDT Breast - Tumor Board Note Date Presented: 06/12/2024 Presenting Physician: Eboni Diagnosis/Tumor Site: Is this Metastatic Disease: No Synopsis of History/HPI: 58 yo with triple negative breast cancer and CAD with hx NE, and stents. Bucky-adjuvant Chemotherapy with sszwdtknq-owxrfandajn-gtfmshanfssof complicated by flash PE, demand ischemia but no acute NE. ++ clinical response to NAC Imaging: not reviewed Pathology/Histology: 1.5 cm primary high grade tumor with positive nodes Stage: [id number] Clinical Data (Exams, Labs, etc.): Molecular Pathology Results: Clinical Trial Availability: If residual disease, may be eligible for adjuvant TM-capecitabine trial. Options Discussed:Phase IB trial data showing safety and efficacy of svhidwwua-eiplacqpypk-aiacmmsctdgge for TNBC . consider omitting anthracycline Consider completing 6 cycles of chemotherapy as planned vs transitioning now to surgery and evaluating pathologic response. Reasonable to omit anthracycline during NAC in patients high risk for coronary artery disease, can be used after surgery if significant residual disease present but benefit of anthracycline after 6 cycles of TC-pembro is not aswell established as after sfzyp-bcexz-vcswlq as per Keynote 522 regimen. Recommendations: Proceed with surgery and Re-evaluate risks/ benefits after pathologic response is known. DISCLAIMER: The patient was discussed and the tumor board made recommendations but it is ultimatelyup to the treatment provider(s) and the patient to determine the patient???s care. documented in this encounter Plan of Treatment Upcoming Encounters Date Type Department Care Team (Latest Contact Info) Description 07/30/2024 8:40 AM EST Hospital Encounter [place] [phone] Jr Fulton MD [facility] [address] [address] 07/30/2024 8:45 AM EST Appointment [place] [phone] Jr Fulton MD [facility] [place] [address] 07/30/2024 9:20 AM EST Hospital Encounter [place] [phone] Jr Fulton MD [facility] [place] [address] 07/30/2024 10:51 AM EST Hospital Encounter Outpatient Surgery Center [place] [phone] Jr Fulton MD [facility] [place] [address] 07/30/2024 10:51 AM EST Anesthesia Event Outpatient Surgery [facility] [place] [phone] Megan Oron[place] [address] 07/30/2024 10:51 AM EST - 07/30/2024 1:11 PM EST Surgery Outpatient [facility] [place] [phone] Jr Fulton MD [facility] [place] [address] MASTECTOMY PARTIAL (WRVU 10.13) 08/22/2024 2:00 PM EST Office Visit General Surgery at [place] [phone] Cindy Pierce APRN [facility] [place] [place] [address] 08/22/2024 3:00 PM EST Office Visit Hematology and Oncology at [place] [phone] Soo Lyn MD [facility] [place] [address] 08/27/2024 9:30 AM EST Scheduled View Only Radiation Oncology at [address] [address] St Josr [place] 08/27/2024 10:00 AM EST Office Visit Radiation Oncology at [address] [address] Paradise Prado MD [facility] [place] [address] 2024 1:00 PM EDT Office Visit Cardiology at [address] [place] [address] Ham Montenegro MD [facility] [place] [address] Scheduled Procedures Name Priority Associated Diagnoses Date/Ti [...] on filedocumented in this encounter Care Teams Phosphoric Acid Supervisor Relationship Specialty Start Date End Date Gaudencio Scales DO [facility] [place] [address] PCP - General Family Medicine 11/28/23 documented as of this encounter
--- OUTSIDE RECORDS SUMMARY | 2024-07-27 12:45 | XMS_ITS | Encounter Summary ---
Author Organization [facility] Address [facility] [place] [address] Care Team Providers Care Director Of Philanthropy Name Role Phone LoydaGaudencio DO Primary Care Provider [phone] Encounter Details Date Type Department Care Team (Late st Contact Info) Description 06/20/2024 3:00 PM EDT TH Visit (TeleHealth) [place] [phone] Social History Tobacco Use Types Packs/Day Years [...] from your doctor or pharmacy? Rarely 05/29/2024 [facility] Utilities Answer Date Recorded In the [...] 8:40 AM EST Hospital [place] [phone] Jr Fulton MD [facility] [place] [address] 07/30/2024 8:45 AM EST [place] [phone] Jr Fulton MD [facility] [place] [address] 07/30/2024 9:20 AM EST Hospital Encounter Mammography at [place] [address] Jr Fulton MD [facility] [place] [address] 07/30/2024 10:51 AM EST Hospital Encounter Outpatient Surgery [facility] [place] [address] Jr Fulton MD [facility] [place] [address] 07/30/2024 10:51 AM EST Anesthesia Event Outpatient Surgery [facility] [place] [address] Megan Oron[place] [address] 07/30/2024 10:51 AM EST - 07/30/2024 1:11 PM EST Surgery Outpatient Surgery [facility] [place] [address] Jr Fulton MD [facility] [place] [address] MASTECTOMY PARTIAL (WRVU 10.13) 08/22/2024 2:00 PM EST Office Visit General Surgery at [place] [address] Cindy Pierce APRN [facility] [place] [address] 08/22/2024 3:00 PM EST Office Visit Hematology and Oncology at [address]1000 Soo Lyn MD [facility] [place] [address] 08/27/2024 9:30 AM EST Scheduled View Only Radiation Oncology at [address] [phone] [address] [place]valles 08/27/2024 10:00 AM EST Office Visit Radiation Oncology at [address] [phone] Paradise Prado MD [facility] [place] [address] 2024 1:00 PM EDT Office Visit Cardiology at [address] [place] [address] Ham Montenegro MD [facility] [place] [address] Scheduled Procedures Name Priority Associated Diagnoses Date/Ti [...] on filedocumented in this encounter Care Teams Director Of Philanthropy Relationship Specialty Start Date End Date Gaudencio Scales DO [address] [place] [address] PCP - General Family Medicine 11/28/23 documented as of this encounter
--- OUTSIDE RECORDS SUMMARY | 2024-07-27 12:45 | XMS_ITS | Encounter Summary ---
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 Name Role Phone Gaudencio Scales DO Primary Care Provider [phone] Reason for Referral * Diagnostic Test (Routine) - Closed Specialty Diagnoses / Procedures Referred By Radha t Referred To Contact Cardiology Diagnoses CHF (congestive heart failure), NYHA class I, unspecified failure chronicity, combined Procedures Mobile Travis German MD [address] [place] [address] [place] [address] [facility] [place] [address] Referral ID Status Reason Start Date Expiration Date V isits Requested Visits Authorized [id number] Closed Specialty Service Requested 05/30/2024 05/30/2025 1 1 Reason for Visit * Diagnostic Test (Routine) - Closed Specialty Diagnoses / Procedures Referred By Contac t Referred To Contact Cardiology Diagnoses CHF (congestive heart failure), NYHA class I, unspecified failure chronicity, combined Procedures Mobile Travis German MD [address] [place] [address] [place] [address] [facility] [place] [address] Referral ID Status Reason Start Date Expiration Date V isits Requested Visits Authorized [id number] Closed Specialty Service Requested 05/30/2024 05/30/2025 1 1 Encounter Details Date Type Department Care Team (Latest Contact Info) Description 05/30/2024 12:13 PM EDT - 05/30/2024 11:59 PM EDT Hospital Encounter Mobile Echocardiography [facility] [place] [address] Travis Oliva MD [address] [place] [address] [place] [address] CHF (congestive heart failure), NYHA class I, unspecified failure chronicity, combined Discharge Disposition: Home Social History Tobacco Use [...] from your doctor or pharmacy? Rarely 05/29/2024 [facility] Utilities Answer Date Recorded In the past 12 months has th e electric, gas, oil, or water company threatened to shut off services in your home? No 05/29/2024 Overall Financial Resource Strain (CARDIA) Answe r Date Recorded How hard is it for you to pa y for the very basics like food, housing, medical care, and heating? Not very hard 05/29/2024 Hunger Vital Sign Answer Date Recorded Within the past 12 months, y ou worried that your food would run out before you got the money to buy more. Never true 05/29/20 24 Within the past 12 months, t he food you bought just didn't last and you didn't have money to get more. Never true 05/29/2024 PRAPARE - Transportation Answer Date Re corded In the past 12 months, has l ack of transportation kept you from medical appointments or from getting medications? No 05/20 In the past 12 months, has l ack of transportation kept you from meetings, work, or from getting things needed for daily living? No 05/29/2024 Housing Stability Vital Sign Answer Jeferson e [...] place to sleep or slept in a long-term (including now)? No 11/29/2023 Housing Stability Vital Sign Answer Jeferson e Recorded In the last 12 months, was t here a time when you were not able to pay the mortgage or rent on time? No 05/29/2024 In the past 12 months, how m any times have you moved where you were living? 1 05/29/2024 At [facility] time in the [facility], were you homeless or living in a long-term (including now)? No 05/29/2024 [facility] Inpatient Questions Answer Date Recorded [...] Sig Dispensed Refills Start Date End Date diphenhydrAMINE/alumin um-magnesium hydroxide with simethicone/lidocaine (BMX) (6.67 [...] by mouth as needed for Pain (Please health counselor patient on equal parts benadryl and [...] capsule 20M Capsule(s), PO, Once daily 01/12/2006 torsemide (Demadex) 20 mg tablet Take 1 tablet by mouth daily. 30 tablet 3 06/06/2024 07/16/2024 ondansetron (Zofran) 8 mg tablet Take 1 tablet by mouth every 8 hours as needed for Nausea. 60 tablet 05/11/2024 07/25/2024 dexAMETHasone (Decadron) 4 mg tablet Take 1 tablet by mouth daily. Take on days 2-4 for each chemotherapy cycle 20 tablet 03/23/2024 07/02/2024 prochlorperazine (Compazine) 10 mg tablet Take 1 tablet by mouth every 6 hours as needed for Nausea. 30 tablet 3 03/23/2024 07/02/2024 furosemide (Lasix) 20 mg tablet Take 1 tablet by mouth daily as needed (weight gain, SOB, volume overload). 90 tablet 1 12/04/2023 06/05/2024 baclofen (Lioresal) 10 mg tablet Take 0.5 tablets by mouth 2 times daily. 10/27/2023 07/16/2024 documented as of this encounter Plan of Treatment Upcoming Encounters Date Type Department Care Team (Latest Contact Info) Description 07/30/2024 8:40 AM EST Hospital [place] [phone] Jr Fulton MD [facility] [place] [address] 07/30/2024 8:45 AM EST Appointment Mammography at [place] [phone] Jr Fulton MD [facility] [place] [address] [place] [address] 07/30/2024 9:20 AM EST Hospital [place] [phone] Jr Fulton MD [facility] [address] [place] [address] 07/30/2024 10:51 AM EST Hospital Encounter [facility] [place] [phone] Jr Fulton MD [facility] [address] [place] [address] 07/30/2024 10:51 AM EST Anesthesia Event [facility] [place] [address] Megan Orona APRN [place] [address] 07/30/2024 10:51 AM EST - 07/30/2024 1:11 PM EST Surgery [facility] [phone] Jr Fulton MD [facility] [place] [address] MASTECTOMY PARTIAL (WRVU 10.13) 08/22/2024 2:00 PM EST Office [place] [phone] Cindy Pierce APRN [facility] [place] [place] [address] 08/22/2024 3:00 PM EST Office Visit Hemat[place] [phone] Soo Lyn MD [facility] [place] [address] 08/27/2024 9:30 AM EST Scheduled View Only Radiation Oncology at [address] [phone] St Josr Whitley 08/27/2024 10:00 AM EST Office Visit Radiation Oncology at [address] [phone] Paradise Prado MD [facility] [place] [address] 2024 1:00 PM EDT Office Visit Cardiology at [address] [place] [phone] Ham Montenegro MD [facility] [place] [address] Scheduled Procedures Name Priority Associated Diagnoses Date/Ti [...] Procedure Name Priority Date/Time Associated Diagnosis Comments ECHO COMPLETE Routine 05/30/2024 12:59 PM EDT CHF (congestive heart failure), NYHA class I, unspecified failure chronicity, combined documented in this encounter Results * ECHO COMPLETE (05/30/2024 12:59 PM EDT) EF 50 HEARTLAB SYSTEM Anatomical Region Laterality Modality Other 05/30/2024 9:45 AM EDT Narrative 05/30/2024 1:54 PM EDT [address] [place] [id number] ? Echocardiogram Report Name: OKSANA BETANCOURT ? Study Date: 05/30/2024 09:45 AMBP: 106/56 mmHg : 1965 ? Account: [id number] Age: 58 yrs Gender: Female Ordering Physician: TRAVIS OLIVA Referring Physician: TRAVIS OLIVA Performed By: JERAMIE Reason For Study: CHF, COPD, Breast CA, Chemotherapy, [facility] Exam Location: [facility]. Interpretation Summary The left ventricle is [...] well seated with normal function. There is bufu-ta-ujxrifue mitral regurgitation. See body of report for additional details. LV function is similar to recent prior study dated 03/06/24. Prosthetic aortic gradients are slightly less (10/6 from 15/8 mmHg) and mitral regurgitation appears slightly increased. Procedure Complete-[id number]. Suboptimal quality. This study is limited because [...] valve mean: 5.8 mmHg MV E max contreras: 142.4 cm/sec MV A max contreras: 161.5 cm/sec MV E/A: 0.88 MV dec time: 0.21 sec MV mean P.2 mmHg Lat Peak E' Contreras: 9.6 cm/sec E/e' (lat): 14.8 NICO(I,D): 1.6 cm2 Dimensionless index Aov: 0.59 TR max contreras: 266.6 cm/sec RVSP(TR): 31.4 mmHg I ?WMSI = 1.00 ? % Normal = 100 ?Segments ??Size X - Cannot ?2 - ?4 - ?1-2 ? small Interpret ?1 - Normal ?? Hypokinetic 3 - Akinetic Dyskinetic ?? 3-5 ? moderate 5 - ? 6-14 ?large Aneurysmal ?15-16 ?? diffuse Procedure Note Gillian Godoy MD - 05/30/[address] [place] [address] Echocardiogram Report Name: OKSANA BETANCOURT Study Date:05/30/2024 09:45 AMBP: 106/56 mmHg : 1965 Account: [id number] Age: 58 yrs Gender: Female Ordering Physician: TRAVIS OLIVA Referring Physician: TRAVIS OLVIA Performed By: JERAMIE Reason For Study: CHF, COPD, Breast CA, Chemotherapy, HX TAVR ([place] 2years ago) Exam Location: [facility]. Interpretation Summary The left ventricle is [...] well seated with normal function. There is lypg-te-aqhnsvvm mitral regurgitation. See body of report for additional details. LV function is similar torecent prior study dated 03/06/24. Prosthetic aortic gradients are slightly less (10/6from 15/8 mmHg) and mitral regurgitation appears slightly increased. Procedure Complete-[id number]. Suboptimal quality. This study is limited because [...] valve mean: 5.8 mmHg MV E max contreras: 142.4 cm/sec MV A max contreras: 161.5 cm/sec MV E/A: 0.88 MV dec time: 0.21 sec MV mean P.2 mmHg Lat Peak E' Contreras: 9.6 cm/sec E/e' (lat): 14.8 NICO(I,D): 1.6 cm2 Dimensionless index Aov: 0.59 TR max contreras: 266.6 cm/sec RVSP(TR): 31.4 mmHg I WMSI = 1.00 % Normal = 100 SegmentsSize X - Cannot 2 - 4 - 1-2small Interpret 1 - Normal Hypokinetic 3 - Akinetic Dyskinetic 3-5moderate 5 - 6-14large Aneurysmal 15-16diffuse Travis Oliva MD ECHO ORDERABLES documented in this encounter Visit Diagnoses Diagnosis CHF (congestive heart failure), NYHA class I, unspecified failure chronicity, combined documented in this encounter Care Teams Steel Plate Caulker Relationship Specialty Start Date End Date Gaudencio Scales DO [address] [place] [address] PCP - General Family Medicine 11/28/23 documented as of this encounter
--- OUTSIDE RECORDS SUMMARY | 2024-07-27 12:45 | XMS_ITS | Encounter Summary ---
Author Organization [facility] Address [facility] [place] [address] Care Team Providers Care Table Top Tile Setter Name Role Phone Rachelmaury Gaudencio Antoine VERGARA Primary Care Provider Reason for Referral * Home Health Care (Routine) - Authorized Specialty Diagnoses / Procedures Referred By Radha carr Referred To Contact Diagnoses NSTEMI (non-ST elevated myocardial infarction) Malignant neoplasm of upper-outer quadrant of left breast in female, estrogen receptor negative Arlin Jackson MD [facility] [place] [address] Referral ID Status Reason Start Date Expiration Date Visits Requested Visits Authorized [id number] Authorized Consult, Test & Treat 06/05/2024 12/02/2024 999 999 * Consultation (Routine) - Closed Specialty Diagnoses / Procedures Referred By Contbeatris t Referred To Contact Cardiology Diagnoses NSTEMI (non-ST elevated myocardial infarction) Arlin Jackson MD [facility] [place] [address] [facility] Cardiology [address] [place] [address] Referral ID Status Reason Start Date Expiration Date V isits Requested Visits Authorized [id number] Closed Consult, Test & Treat 06/04/2024 06/04/2025 1 1 Reason for Visit * Auth/Cert (Routine) Specialty Diagnoses / Procedures Referred By Contac t Referred To Contact Diagnoses Acute on chronic systolic and diastolic heart failure, NYHA class 2 NSTEMI Procedures EMERGENCY OBSVO TO EMERGENCY IPI Rogelio Wogn MD [facility] [place] [address] [facility] Referral ID Status Reason Start Date Expiration Date Visits Re quested Visits Authorized [id number] 1 1 Encounter Details Date Type Department Care Team (Latest Contact Info) Description 05/31/2024 11:16 PM EDT - 06/05/2024 4:30 PM EDT Hospital Encounter Heart and Vascular Unit Level [address] [place] [id number] Rogelio Wong MD [facility] [place] [address] Ady Perkins MD [facility] [place] [address] Arlin Jackson MD [facility] [place] [address] Acute on chronic systolic and diastolic heart failure, NYHA class 2; NSTEMI (non-ST elevated myocardial infarction); Malignant neoplasm of upper-outer quadrant of left breast in female, estrogen receptor negative Discharge Disposition: Home with VNA Social History [...] from your doctor or pharmacy? Rarely 05/29/2024 [facility] Utilities Answer Date Recorded In the past 12 months has [facility], gas, oil, or water [employer] threatened to shut off services in your [...] place to sleep or slept in a half-way (including now)? No 11/29/2023 Housing Stability Vital [...] were you homeless or living in a half-way (including now)? No 06/01/2024 DH IPV Inpatient [...] Sign Reading Time Taken Comments Blood Pressure 125/59 06/05/2024 12:02 PM EDT Pulse 95 06/05/2024 12:02 PM EDT Temperature 37.2 ??C (99 ??F) 06/05/2024 12:02 PM EDT Respiratory Rate 16 06/05/2024 12:02 PM EDT Oxygen Saturation 92% 06/05/2024 12:02 PM EDT Inhaled Oxygen Concentration - - Weight 96 kg (211 lb 11.2 oz) 06/05/2024 6:13 AM EDT Height 165.1 cm (5' 5) 05/31/2024 11:00 PM EDT Body Mass Index 35.23 05/31/2024 11:00 PM EDT documented in this encounter Discharge Summaries * Arlin Jackson MD - 06/05/2024 10:02 AM EDT Images from the original note were not included. Discharge Summary Patient Name: Oksana Betancourt Patient Age: 58 y.o. Language: Mohawk Race: Choose not to Disclose Ethnicity: Choose not to Disclose Admit date: 05/31/2024 Discharge date: 06/05/24 Attending Physician: Arlin Jackson MD Discharge Physician: Arlin Jackson MD Follow-up Recommendations for Providers: Medication Changes - START torsemide 20 daily (lasix DISCONTINUED) To Do [ ] recommend CMP, CBC, mag, phos check with PCP follow-up [ ] f/u volume assessment for titration of diuretics [ ] Per gavin Albrecht to hold DAPT for jasper-procedurally for bilateral mastectomy. Should resume POD 1 if no bleeding concerns. - outpatient f/u scheduled 07/04/24 Inpatient Provider Contact Information: MD Ady Jhaveri MD [phone] For questions regarding this document or issues relating to this hospitalization on the Medical Service, please contact your inpatient physician through the [facility] Shoemaker Apprentice . Issues afterhours and on weekends will be handled by the Hospitalist staff on-call. Discharge Diagnoses (Hospital Problems) and Secondary Diagnoses (Chronic Problems): Active Hospital Problems Diagnosis Acute on chronic systolic and diastolic heart failure, NYHA class 2 Resolved Hospital Problems No resolved problems to display. Active Non-Hospital Problems Diagnosis Medication management Malignant neoplasm of upper-outer quadrant of left breast in female, estrogen receptor negative NSTEMI (non-ST elevated myocardial infarction) Operations/Major Procedures/Imaging: Results for orders placed or performed during the hospital encounter of 05/31/24 XR Chest One View (Exam End: 06/01/2024 1:36 AM) Result Value WORKSTATION ID [id number] Narrative EXAMINATION: XR CHEST ONE VIEW CLINICAL HISTORY: [...] pneumothorax. Review of bone windows is unremarkable. Impression No acute finding. Thank you for letting us participate in the care of this patient. If you are a health care provider and have any questions regarding this report, please contact the number below. For patients who have questions please contact the health daycare provider that requested your imaging first. 06/01/24 Interpretation Summary -Left ventricle is of normal [...] appears not significantly changed between the studies. History of Presentation (per history and physical 06/01/24): 58 years old female with PMH of FULL CODE @ home alone, obese with BMI 36.14 (height 165.1 cm; weight 98.5 kg), bipolar disorder on lamotrigine 100mg PO bid, insomnia disorder on [id number] PO qhs, chronic pain disorder on percocet 10/325mg PO q8 prn back pain, former tobacco abuse (e.g., quit smoking 2 weeks ago, ~ 1 pack of cigarettes per day from 13 years of age till 58 years of age) with subsequent diagnosis of COPD, not on home O2 or home steroids, hypothyroidism, CKD stageIII with baseline creatinine range, 1.20 - 1.36 (11/28/2023 - 04/17/2024), chronic macrocytic, normochromic anemia with baseline Hb range, 9.6 - 10.3 g/dL (11/29/2023 - 04/17/2024), Hodgkin's lymphoma @ left neck base @ 22 years of age, s/p XRT, s/p resection @ left neck base, and s/p splenectomy ([place], [place]), left upper outer quadrant BRCA, estrogen receptor negative (diagnosed on 03/26/2024, 11:08am core needle biopsy revealing single <1 mm metastatic deposit is identified at the edge of one core; radiologic correlation is suggested as per [facility] Pathologist Dr. Josr Wilson), no XRT, no resection, just chemotherapy (e.g., cycle #4 of pembrolizumab, docetaxel, and carboplatin) as per [facility] Heme-Onc Dr. David Lyn, paroxysmal AFIB on metoprolol 50mg PO bid and eliquis 5mg PO bid, severe aortic stenosis s/p TAVR ([place], [place], 01/26/2022), baseline LBBB, triple vessel CAD s/p staged PCI ([place], [place], 02/23/2022 (with CRIS x1 to mid-RCA, CRIS x2 to ostial RCA, CRIS x1 to ostial LCX, and CRIS x1 to mid-LCX), s/p acute NSTEMI, s/p cardiac catheterization (11/28/2023, [facility] CARDS Dr. Ryder Hargrove): Coronary Angiography: Anatomically normal right dominant circulation LMCA: 90% distal LM lesion LAD: 90% ostial LAD lesion LCx: Minimal luminal irregularities noted, patent stents RCA: 90% ostial and proximal RCA disease (in-stent) RCA IVUS: In-stent neoatherosclerosis in the ostial and proximal RCA. Well- apposed and expanded stent post-intervention. Contrast: 215 ccs LVEDP: 16 mmHg Conclusion: - High-grade serial ostial and proximal RCA lesions with early in-stent neoatherosclerosis s/p a single 3.5 x 22 mm [place] Hammond CRIS. - High grade distal LM and ostial LAD lesion which will need staged intervention. - Right brachial artery occlusion precluding use of right radial access. - Difficult coronary engagement due to Evolut Cor-valve. - Right femoral access with great stick. Plan for manual hold as we will re- access for staged intervention of the LM/LAD. - The patient tolerated the procedure well and was transferred from the cardiac catheterization labin stable condition without apparent complications. Patient is now on plavix 75mg PO daily and atorvastatin 80mg PO qhs for secondary prophylaxis against CAD, and was recently diagnosed with chronic systolic CHF with reduced LV EF 50% (as noted on 03/06/2024 TTE, [facility] CARDS Dr. Gillian Godoy) with dry baseline weight of 220-230 pounds at home, subsequently sleeping in a recliner, not a bed at home, without coincident complaints of unintentional weight gain (cf., patient actually complains of unquantified weight loss in the setting of her recently diagnosed left upper outer quadrant BRCA), paroxysmal nocturnal dyspnea, or orthopnea, at home, who complains: I got short of breath 2 hours after starting my chemotherapy (e.g., cycle #4 of pembrolizumab, docetaxel, and carboplatin was started on 05/31/2024, 10:30am - 12:00pm @ outpatient infusion center in [place], [place]) that my cancer doctor, Dr. David Lyn, has me on to treat my breast cancer. That never happened to me before in the 3 times that I have received this same chemotherapy in the past. So, I stopped this chemotherapy right away (05/31/2024, 12:00pm), and I could breathe better after that. I did not have any chest pain, pressure, heaviness, or tightness when I gotshort of breath. Patient was subsequently transported from the outpatient infusion center in [place], [place] to [facility] ([place], [place]) on 05/29/2024, and was started on BIPAP and solumedrol 125mg IV x 1 dose(05/29/2024, 1:25pm), then transferred to their ICU bed #220 on 05/29/2024, where patient continued with BIPAP and solumedrol 60mg IV x 1 dose (05/30/2024, 12:00am), followed by prednisone 40mg PO daily (day #1 on 05/31/2024, 5:30am). Hospital Course (Per Problem List) #Acute on Chronic HFpEF. LVEF at [facility] is 57% on 06/01/24. #Left breast cancer, triple negative, on neoadjuvant carboplatin/docetaxel and Pembrolizumab (Cycle4, Day 1 on 05/29/24) There is concern that the patient???s kajht-vn-spcqdyc systolic heart failure may be related to ongoing chemotherapy (cycle 4 of pembrolizumab, docetaxel, and carboplatin started on 05/31/2024 at an outpatient infusion center in [place], [place]). As per Hematology, fluid retention can occur with docetaxel, and thus they will hold off chemotherapy for now. When MR for discharge, heme/onc will pursue surgical intervention of her cancer. - Transition to torsemide 20 daily - s/p IV lasix 40 with goood response - CHF teaching. - Oncology consulted while inpatient - daily weights. I/Os. (Discharged weight 211 lbs) #Elevated troponin #NSTEMI type II in setting of ADF - d/w interventional cardiology re: holding DAPT for bilateral mastectomy. Patient 6mo out from PCIto LM and Lcx. Okay to hold DAPT periprocedurally and resume POD 1 as long as no bleeding concerns # paroxysmal afib, rate controlled. - Continue apixaban. - Metoprolol XL 50 mg daily #COPD. Not on oxygen or steroids at home. BIPAP required at OSH ER. Transitioned back to room air while inpatient . #Other chronic issues - Bipolar on lamotrigine, Insomnia on seroquel (continued) - Chronic pain disorder on percocet - Former tobacco abuse - Hypothyroidism - CKD stage III with baseile likely ~1.5 Vital Signs at Discharge: BP: 125/59, Heart Rate: 95, Temp: 37.2 ??C (99 ??F), Resp: 16, BMI (Calculated): 36.14 Height: 165.1 cm (5' 5) (05/31/24 2300) Weight: 96 kg (211 lb 11.2 oz) (06/05/24 0613) Functional and Cognitive Status: Awake, alert, oriented x4. Ambulating well independently and asymptomatic. No le edema. Heart RRR and lungs CTAB on discharge Important Studies and Lab Data: Labs: Last 3 wbc, hgb, hct plt Recent Labs 06/05/24 0210 06/04/24 0938 06/02/24 0126 WBC 3.57* 4.21 9.14 HGB 9.0* 8.6* 8.4* HCT 27.7* 26.1* 25.4* PLATELET 686* 640* 514* Last 3 Lytes Recent Labs 06/05/24 0210 06/04/24 0938 06/02/24 0126 NA 140 139 138 K 3.9 3.7 3.9 CL 99 98 96* CO2 27 27 28 BUN 30* 30* 38* CREATININE 1.77* 1.51* 1.56* Last 3 LFTs Recent Labs 06/01/24 0144 05/07/24 1037 04/17/24 0729 03/28/24 0724 03/06/24 1419 11/28/23 1110 AST 31* 20 18 16 < > 48* ALT 24 22 16 13 < > 16 ALKPHOS 542* 193* 145* 144* < > 117* BILITOT 0.2 -- 0.2 0.5 < > 0.6 BILIDIR <0.2 -- -- -- -- 0.2 < > = values in this interval not displayed. Last Ca, Mg, Phos Recent Labs 06/05/24 0210 CALCIUM 9.5 MAGNESIUM 0.87 Last 3 Coags Recent Labs 06/01/24 0144 PT 10.1 INR 0.9 Last 3 ProBNP, Trop, CK Recent Labs 06/04/24 0938 06/01/24 0144 PROBNP 2,189* 6,330* Last 3 TFT Recent Labs 06/01/24 0144 04/17/24 0729 03/28/24 0724 TSH 0.60 3.58 3.34 Last 3 Lipids Recent Labs 06/01/24 0144 11/29/23 0027 CHLPL 158 139 HDL 42 44 LDLCHOL 81 -- LDLDIRECT -- 69 TRIG 208 93 Last 3 HgbA1C Recent Labs 11/29/23 0027 HA1C 5.3 Last CRP, SEDRATENo results for input(s): CRP, SEDRATE in the last 7068 hours. Discharge Conditions/Prognosis: stable Discharge to: home Updated Allergies/ADRs: No Known Allergies Immunizations Given this Hospitalization: Immunization History Administered Date(s) Administered Influenza Vaccine, Whole 08/03/2005 Pneumococcal Polysaccharide (Pneumovax 23) 11/08/2006 Discharge Medications: Your Medications New Medications Dose Details torsemide 20 mg tablet Commonly known as: Demadex Take 1 tablet by mouth daily. Start taking on: June 06, 2024 20 mg Quantity: 30 tablet Refills: 3 Continued medications, unchanged Dose Details atorvastatin 80 mg tablet Commonly known as: Lipitor Take 1 tablet by mouth Daily at Noon. 80 mg Quantity: 90 tablet Refills: 3 baclofen 10 mg tablet Commonly known as: Lioresal Take 0.5 tablets by mouth 2 times daily. 0.5 tablet Refills: 0 clopidogreL 75 mg tablet Commonly known as: Plavix Take 1 tablet by mouth daily. 75 mg Quantity: 90 tablet Refills: 3 dexAMETHasone 4 mg tablet Commonly known as: Decadron Take 1 tablet by mouth daily. Take on days 2-4 for each chemotherapy cycle 4 mg Quantity: 20 tablet Refills: 0 diclofenac 1 % Gel Commonly known as: Voltaren Apply 2 g topically 2 times daily. 2 g Quantity: 200 g Refills: 1 Eliquis 5 mg tablet Take 5 mg by mouth 2 times daily. Generic drug: apixaban 5 mg Refills: 0 ipratropium-albuteroL 0.5 mg-3 mg(2.5 mg [...] by mouth as needed for Pain (Please parliamentary counsel patient on equal parts benadryl and Maalox.). 1-2 mL Quantity: 100 mL Refills: 1 hcczlqyfk-cueqvjwpa-xz-mag-sim [id number] mg/30 mL Suspension Take 20-30 mLs by [...] hours as needed. 1 tablet Refills: 0 prochlorperazine 10 mg tablet Commonly known as: Compazine Take 1 tablet by mouth every 6 hours as needed for Nausea. 10 mg Quantity: 30 tablet Refills: 3 * QUEtiapine 100 mg tablet Commonly known [...] to review them with you. STOPPED Medications furosemide 20 mg tablet Commonly known as: Lasix Smoking Status at Discharge: Social History Tobacco Use Smoking Status Former Current packs/day: 0.00 Average packs/day: 1 pack/day for 40.0 years (40.0 ttl pk-yrs) Types: Cigarettes Start date: 11/17/1981 Quit date: 11/17/2021 Years since quittin.5 Smokeless Tobacco Never Instructions Given to Patient at Discharge: Patient Instructions You were hospitalized for evaluation of your shortness of breath, lower. Your lab work, chest xray,and ultrasound of your heart indicated you were in congestive heart failure. You were started on torsemide, a diuretic to help remove fluid from your body. This was started in the hospital through your IV and switched to a pill form before you discharged home. A referral was also made to Dr. Montenegro, our cardio- automotive parts specialist. An appointment has been set up for , however we will try to get an appointment sooner if possible. You will need to limit sodium in your diet. We suggest you avoid adding salt to any of your food, and actively monitor the salt content on the labels of the food you buy. Your total salt intake in a 24 hour period should not exceed 2,000 grams. Once at home, you will need to weigh yourself without clothing at the same time each day. Record your weight. If you start to notice that you are having worsening weight gain, fatigue, increased shortness of breath, leg swelling, or signs of dehydration, please call your printing sales representative for further instructions. Your weight on day of discharge is 211 lbs. Call your doctor if: Chest pain, dyspnea, pain or swelling in legs occurs, or for weight gain of 2 pounds overnight or 5pounds in 5 days. If you have non-emergent questions, prior to your follow-up visit call: Tuesday-Tuesday between the hours of 8AM-5PM please call the Cardiology Clinic [phone] to speak with a nurse. All other hours please call the Hospital Shoemaker Apprentice [phone] and ask to speak to the cardiovascular hospitalist on-call. For any emergent questions, please call 911 or visit your nearest emergency department/urgent care center Follow up Appointments: Doctor Where Phone # Date Time PCP Gaudencio Scales DO [address] [place] [address] Tuesday 9:30am Equipment Mechanic Dr. Ryder Hargrove [facility] Cardiology 4A Clinic [phone] Jul 04, 2024 11:40 am (lease arrive by 11:20am) Cardio-Oncologist Dr. Ham Montenegro [facility] Jul 30, 2024 (we have placed you on a wait list for earlier appt) 3:40pm (please arrive by 3:20pm) General Instructions None Future Appointments and Orders Future Appointments and Orders Future Appointments Provider Department Dept Phone 06/06/2024 11:30 AM Hem/Onc, Clinic Pharmacist Hematology and Oncology at [facility] Arrive at: Home [phone] Please do not come in for this visit. Your provider will call you at the number you provided. 06/12/2024 1:00 PM Jr Fulotn MD General Surgery at [facility] Arrive at: [facility] 4L [phone] 06/19/2024 9:00 AM Sheryl Faust APRN Hematology/Oncology at [facility] Arrive at: [facility] door at end of hallway [phone] 06/19/2024 9:30 AM [facility] INF[facility]ION, ROOM Hematology Oncology at [facility] Arrive at: [facility] door at end of hallway [phone] 07/04/2024 11:40 AM Ryder Hargrove MD Cardiology at [facility] Arrive at: [facility] [phone] 07/16/2024 3:00 PM Soo Lyn MD; CBP, NURSE NAVIGATOR; CBP, SOCIAL WORK Hematology and Oncology at [facility] Arrive at: [facility] [phone] 07/30/2024 3:40 PM Hma Montenegro MD Cardiology at [facility] Arrive at: [facility] [address] [phone] Future Orders Complete By Expires Referral to Cardiology [REF12 Custom] As directed Process Instructions: If no progress note charted, please enter Clinical details in comments. Scheduling Instructions: Questions: My question or request is: cardio-oncology consultation Referral to Home Health [REF34 Custom] As directed Process Instructions: If no progress note charted, please enter Clinical details in comments. Scheduling Instructions: Comments: Please evaluate Oksana Betancourt for admission to Home Health. [address] [facility] [address] (home) Date of : 1965 Inpatient DOCUMENTATION FOR VNA SERVICES (INCLUDING THOSE PATIENTS WITH MEDICARE COVERAGE REQUIRING HOME VNA SERVICES AND/OR HOSPICE SERVICES) PATIENT'S LOCATION: Oksana Betancourt [address] [facility] [address] (home) Cell: Telephone Information: Qa Developer's Name: self In discussion with the attending physician, it is certified that this patient is under their care and that they, or a Nurse Practitioner, Clinical Nurse specialist or Physician Dentist who is working directly with them, had a face to face encounter that meets the physician face to face encounter requirements with this patient on 06/05/24 (MD please enter DC date here) The encounter with the patient was in whole, or in part, for the following medical condition, whichis the primary reason for home health care services: CHF and breast ca In discussion with the provider, it is [...] management and Reinforce education regarding health issues Home Health Aide: Assist with personal care activities, ie. dressing/bathing HOME HEALTH CARE AGENCY: [facility]. [address] [place] [id number] START OF CARE: within 24-48 hours of discharge In discussion with the attending physician, it is certified that the clinical findings support thatthis patient is homebound because absences from home require considerable and taxing effort due to:Unsteady gait, poor balance, requiring assistive devices and/or assistance of another. Please note that any additional orders needs or changes will need to be obtained from this patient's PCP: Gaudencio Scales, [address] [facility] [facility] [address] . All VNA agencies which cover the area of patient's residence have been reviewed, either verbally or in writing, and patient/family have chosen the home health care agency noted. Questions: Disciplines Requested: [facility] Aide Discharge References/Attachments None Greater than 30 minutes was spent on this discharge including documentation, lmdu-ue-oqch time withthe patient, patient education, work order clerk, coordination with pharmacy and other patient care. documented in this encounter Discharge Instructions * Patient Instructions* Arlin Jackson MD - 06/05/2024 8:41 AM EDT You were hospitalized for evaluation of your shortness of breath, lower. Your lab work, chest xray,and ultrasound of your heart indicated you were in congestive heart failure. You were started on torsemide, a diuretic to help remove fluid from your body. This was started in the hospital through your IV and switched to a pill form before you discharged home. A referral was also made to Dr. Montenegro, our cardio- automotive parts specialist. An appointment has been set up for , however we will try to get an appointment sooner if possible. You will need to limit sodium in your diet. We suggest you avoid adding salt to any of your food, and actively monitor the salt content on the labels of the food you buy. Your total salt intake in a 24 hour period should not exceed 2,000 grams. Once at home, you will need to weigh yourself without clothing at the same time each day. Record your weight. If you start to notice that you are having worsening weight gain, fatigue, increased shortness of breath, leg swelling, or signs of dehydration, please call your printing sales representative for further instructions. Your weight on day of discharge is 211 lbs. Call your doctor if: Chest pain, dyspnea, pain or swelling in legs occurs, or for weight gain of 2 pounds overnight or 5pounds in 5 days. If you have non-emergent questions, prior to your follow-up visit call: Tuesday-Tuesday between the hours of 8AM-5PM please call the Cardiology Clinic [phone] to speak with a nurse. All other hours please call the Hospital Shoemaker Apprentice [phone] and ask to speak to the cardiovascular hospitalist on-call. For any emergent questions, please call 911 or visit your nearest emergency department/urgent care center Follow up Appointments: Doctor Where Phone # Date Time PCP Gaudencio Scales, [address] [place] [address] Tuesday 9:30am Equipment Mechanic Dr. Ryder Hargrove [facility] Cardiology 4A Clinic [phone] Jul 04, 2024 11:40 am (lease arrive by 11:20am) Cardio-Oncologist Dr. Ham Freedman Cardiology Jul 30, 2024 (we have placed you on a wait list for earlier appt) 3:40pm (please arrive by 3:20pm) documented in this encounter Medications at Time [...] by mouth as needed for Pain (Please parliamentary counsel patient on equal parts benadryl and Maalox.). [...] for Nausea. 30 tablet 3 03/23/2024 07/02/2024 baclofen (Lioresal) 10 mg tablet Take 0.5 tablets by mouth 2 times daily. 10/27/2023 07/16/2024 documented as of this encounter Progress Notes * Roberth Spring RN - 06/04/2024 2:51 PM EDT I have met with the patient to: discuss discharge planning needs. provide the [facility], Office of Care Management letter from the Physical Director pertaining to rehab referrals. provide a letter describing our affiliations within the [facility] and educate about their right to choose where referrals are sent. provide a list of Home Health Agencies / Durable Medical Equipment vendors which serve their preferred geographic area. provided patient with [facility] Star Quality Rating handout. They have requested referrals to: [facility]. [address] [place] [id number] Note routed to a Hand Assembler who will communicate referrals to facilities and provide any required information. * Arlin Jackson MD - 06/04/2024 12:42 PM EDT Images from the original note were not included. [facility] Cardiovascular Medicine CV HOSPITALIST 1 - [facility] DAILY PROGRESS NOTE Page [phone] to reach a provider 11/04 Admit Date: 05/31/2024 Encounter Date June 04, 2024 Anticipated Discharge Date: 06/05/2024 Hospital Day: 1 Active Hospital Problems Diagnosis Acute on chronic systolic and diastolic heart failure, NYHA class 2 Resolved Hospital Problems No resolved problems to display. 24 Hour Events/Subjective: - Denies chest pain, SOB, abd pain, n/v. Ambulating well in room without additional SOB - net negative 820cc on IV lasix 40 Medications: Scheduled Meds: potassium chloride 40 mEq Oral Once torsemide 20 mg Oral Daily apixaban 5 mg Oral BID atorvastatin 40 mg Oral Daily at Noon sodium chloride 0.9 % (flush) 5 mL Intravenous BID baclofen 5 mg Oral BID clopidogreL 75 mg Oral Daily ipratropium-albuteroL 3 mL Nebulization Q4H COREY lamoTRIgine 100 mg Oral BID levothyroxine 100 mcg Oral QAM metoprolol succinate XL 50 mg Oral BID QUEtiapine 150 mg Oral Nightly Continuous Infusions: PRN Meds:.ondansetron, alum-mag hydroxide-simeth, sodium chloride 0.9 % (flush), lidocaine, nitroGLYcerin, acetaminophen, oxyCODONE-acetaminophen Objective: Last value Range last 24 hrs Temp: 37.3 ??C (99.1 ??F) Temp: [37.2 ??C (99 ??F)-37.4 ??C (99.3 ??F)] Heart Rate: 98 Heart Rate from SpO2: (!) 102 bpm Heart Rate: [90-107] BP: 128/50 BP: (101-130)/(50-68) Resp: 18 Resp: [16-18] SpO2: 94 % SpO2: [90 %-94 %] Height: 165.1 cm (5' 5) Weight: 95.9 kg (211 lb 6.4 oz) BMI (Calculated): 36.14 BMI Classification: Obese Admit weight: 98.52 kg Patient Vitals for the past 168 hrs: Weight 06/04/24 0616 95.9 kg (211 lb 6.4 oz) 06/03/24 0600 96.7 kg (213 lb 1.6 oz) 06/02/24 0331 97.5 kg (215 lb) 06/01/24 0638 97.9 kg (215 lb 12.8 oz) 05/31/24 2300 98.5 kg (217 lb 3.2 oz) Intake/Output Summary (Last 24 hours) at 06/04/2024 1242 Last data filed at 06/04/2024 0400 Gross per 24 hour Intake 100 ml Output 0 ml Net 100 ml Physical Exam: Physical Exam Constitutional: General: She is not in acute distress. HENT: Head: Normocephalic and atraumatic. Mouth/Throat: Mouth: Mucous membranes are moist. Eyes: Extraocular Movements: Extraocular movements intact. Neck: Comments: JVD mildly distended Cardiovascular: Rate and Rhythm: Normal rate and regular rhythm. Pulmonary: Effort: Pulmonary effort is normal. No respiratory distress. Comments: Decreased bilateral bases Musculoskeletal: Cervical back: Neck supple. No rigidity. Right lower leg: No edema. Left lower leg: No edema. Skin: General: Skin is warm. Neurological: General: No focal deficit present. Mental Status: She is alert. Labs: Recent Labs 06/04/2493706/02/2412506/01/24 014 WBC 4.21 9.14 8.81 HGB 8.6* 8.4* 8.3* HCT 26.1* 25.4* 25.5* PLATELET 640* 514* 523* MCV 94.2 94.1 95.9* Recent Labs 06/04/24 0906/02/24 01206/01/24 0144 NA 139 138 142 CL 98 96* 97* CO2 27 28 28 K 3.7 3.9 3.9 MAGNESIUM 0.88 -- -- CALCIUM 9.4 8.2* 8.5 BUN 30* 38* 39* CREATININE 1.51* 1.56* 1.69* Coags Recent Labs 06/01/24 014 INR 0.9 PT 10.1 Cardiac Markers Recent Labs 06/04/24 0906/01/24 1125 06/01/24 014 TROPONINTHS -- 400* 318* PROBNP 2,189* -- 6,330* Endocrine Recent Labs 06/01/24 0144 04/17/24 0729 03/28/24 0724 11/29/23 0027 TSH 0.60 3.58 3.34 -- HA1C -- -- -- 5.3 Recent Labs 06/01/24 014 CHLPL 158 TRIG 208 HDL 42 LDLCHOL 81 Recent Labs 06/04/24 0938 06/02/24 0126 06/01/24 0144 05/31/24 2357 GLUCOSE 135 104 126 -- POCGLU -- -- -- 128 Telemetry: sinus, HR 90s-120s Imaging: No results found for this visit on 05/31/24 (from the past 24 hour(s)). Assessment: Oksana Betancourt is 58 year F with history of paroxysmal atrial fibrillation, currently managed with metoprolol 50 mg PO BID and apixaban, severe aortic stenosis, status post TAVR in [place], [place], ASCVD with triple vessel coronary artery disease, status post staged PCI to the mRCA, ostial RCA, ostial LCX, and mLCX on 02/23/2022 in [place], acute NSTEMI S/P LHC on 11/28/2023, performed by Dr. Ryder Hargrove at [facility], HFpEF (LVEFof 50% on 03/06/2024), Hodgkin's lymphoma involving the left neck base at 22 years of age, treated with radiation therapy, resection, and splenectomy at [place], [place], recently diagnosed left upper outer quadrant breast cancer, estrogen receptor- negative, on 03/26/2024, following a core needle biopsy revealing a single <1 mm metastatic deposit as per [facility] Pathologist Dr. Andrew Wilson, currently undergoing chemotherapy (cycle #4 of pembrolizumab, docetaxel, and carboplatin) as per [facility] Hematology-technical sales specialist Dr. David Lyn, without radiation or resection. The patient presented with shortness of breath for about 2 hours after starting chemotherapy. Cycle#4. 10:30 am-12pm at [facility]. Transferred to [facility]. Got BIPAP and solumedrol 125 IV x1. Transferred to ICU followed by po prednisone at OSH. Positive troponin. #Acute on Chronic HFpEF. LVEF at [facility] is 57% on 06/01/24. #Left breast cancer, triple negative, on neoadjuvant carboplatin/docetaxel and Pembrolizumab (Cycle4, Day 1 on 05/29/24) There is concern that the patient???s jcoqo-is-hlzaovu systolic heart failure may be related to ongoing chemotherapy (cycle 4 of pembrolizumab, docetaxel, and carboplatin started on 05/31/2024 at an outpatient infusion center in [place], [place]). As per Hematology, fluid retention can occur with docetaxel, and thus they will hold off chemotherapy for now. When MR for discharge, heme/onc will pursue surgical intervention of her cancer. - Transition to torsemide 20 daily - s/p IV lasix 40 with goood response - CHF teaching. - Oncology is following. Appreciate recommendations. - plan for bilateral mastectomy outpatient, will need input from interventional cardiology re: holding DAPT post PCI - daily weights. I/Os. #Elevated troponin #NSTEMI type II in setting of ADF # paroxysmal afib, rate controlled. - Continue apixaban. - Metoprolol XL 50 mg daily #COPD. Not on oxygen or steroids. BIPAP in the ER. Transition back to room air. #Other chronic issues - Bipolar on lamotrigine, Insomnia on seroquel - Chronic pain disorder on percocet - Former tobacco abuse - Hypothyroidism - CKD stage III with baseile cr 1.2 -1.36 Diet: Daily Healthy Menu Choices/Cardiac diet ([facility]-Diet) DVT Prophylaxis: DOAC SCD Code status: Attempt Cardiopulmonary Resuscitation - Inpatient Disposition: Discharge Location: [facility] Basic Mobility Raw Score: 24 PT: OT: PCP Gaudencio Scales DO [phone] Arlin Jackson MD 06/04/2024 * Ady Perkins MD - 06/03/2024 1:24 PM EDT Images from the original note were not included. [facility] [place] Cardiovascular Medicine CV HOSPITALIST 1 - [facility] DAILY PROGRESS NOTE Page [phone] to reach a provider 11/04 Admit Date: 05/31/2024 Encounter Date June 03, 2024 Anticipated Discharge Date: 06/04/2024 Hospital Day: 0 Active Hospital Problems Diagnosis Acute on chronic systolic and diastolic heart failure, NYHA class 2 Resolved Hospital Problems No resolved problems to display. 24 Hour Events/Subjective: - NAEON - Denies chest pain. Medications: Scheduled Meds: furosemide 40 mg Intravenous Daily apixaban 5 mg Oral BID atorvastatin 40 mg Oral Daily at Noon sodium chloride 0.9 % (flush) 5 mL Intravenous BID baclofen 5 mg Oral BID clopidogreL 75 mg Oral Daily ipratropium-albuteroL 3 mL Nebulization Q4H COREY lamoTRIgine 100 mg Oral BID levothyroxine 100 mcg Oral QAM metoprolol succinate XL 50 mg Oral BID QUEtiapine 150 mg Oral Nightly Continuous Infusions: PRN Meds:.ondansetron, alum-mag hydroxide-simeth, sodium chloride 0.9 % (flush), lidocaine, nitroGLYcerin, acetaminophen, oxyCODONE-acetaminophen Objective: Last value Range last 24 hrs Temp: 37.2 ??C (99 ??F) Temp: [37.1 ??C (98.8 ??F)-37.2 ??C (99 ??F)] Heart Rate: 94 Heart Rate from SpO2: 95 bpm Heart Rate: [89-119] BP: 132/61 BP: (96-132)/(37-61) Resp: 16 Resp: [16] SpO2: 93 % SpO2: [93 %-96 %] Height: 165.1 cm (5' 5) Weight: 96.7 kg (213 lb 1.6 oz) (standing scale) BMI (Calculated): 36.14 BMI Classification: Obese Admit weight: 98.52 kg Patient Vitals for the past 168 hrs: Weight 06/03/24 0600 96.7 kg (213 lb 1.6 oz) 06/02/24 0331 97.5 kg (215 lb) 06/01/24 0638 97.9 kg (215 lb 12.8 oz) 05/31/24 2300 98.5 kg (217 lb 3.2 oz) Intake/Output Summary (Last 24 hours) at 06/03/2024 1324 Last data filed at 06/03/2024 1143 Gross per 24 hour Intake 400 ml Output 1450 ml Net -1050 ml Physical Exam: Physical Exam Labs: Recent Labs 06/02/24 0126 06/01/24 0144 WBC 9.14 8.81 HGB 8.4* 8.3* HCT 25.4* 25.5* PLATELET 514* 523* MCV 94.1 95.9* Recent Labs 06/02/24 0126 06/01/24 0144 NA 138 142 CL 96* 97* CO2 28 28 K 3.9 3.9 CALCIUM 8.2* 8.5 BUN 38* 39* CREATININE 1.56* 1.69* Coags Recent Labs 06/01/24 0144 INR 0.9 PT 10.1 Cardiac Markers Recent Labs 06/01/24 1125 06/01/24 0144 TROPONINTHS 400* 318* PROBNP -- 6,330* Endocrine Recent Labs 06/01/24 0144 04/17/24 0729 03/28/24 0724 11/29/23 0027 TSH 0.60 3.58 3.34 -- HA1C -- -- -- 5.3 Recent Labs 06/01/24 0144 CHLPL 158 TRIG 208 HDL 42 LDLCHOL 81 Recent Labs 06/02/24 0126 06/01/24 0144 05/31/24 2357 GLUCOSE 104 126 -- POCGLU -- -- 128 EKG: SR, LBBB, TWI in lat leads Telemetry: SR Imaging: No results found for this visit on 05/31/24 (from the past 24 hour(s)). Assessment: Oksana Betancourt is 58 year F with history of paroxysmal atrial fibrillation, currently managed with metoprolol 50 mg PO BID and apixaban, severe aortic stenosis, status post TAVR in [place], [place], ASCVD with triple vessel coronary artery disease, status post staged PCI to the mRCA, ostial RCA, ostial LCX, and mLCX on 02/23/2022 in [place], [place], acute NSTEMI S/P LHC on 11/28/2023, performed by Dr. Ryder Hargrove at [facility], HFpEF (LVEFof 50% on 03/06/2024), Hodgkin's lymphoma involving the left neck base at 22 years of age, treated with radiation therapy, resection, and splenectomy at [place], [place], recently diagnosed left upper outer quadrant breast cancer, estrogen receptor- negative, on 03/26/2024, following a core needle biopsy revealing a single <1 mm metastatic deposit as per [facility] Pathologist Dr. Andrew Wilson, currently undergoing chemotherapy (cycle #4 of pembrolizumab, docetaxel, and carboplatin) as per [facility] Hematology-technical sales specialist Dr. David Lyn, without radiation or resection. The patient presented with shortness of breath for about 2 hours after starting chemotherapy. Cycle#4. 10:30 am-12pm at [facility]. Transferred to [facility]. Got BIPAP and solumedrol 125 IV x1. Transferred to ICU followed by po prednisone at OSH. Positive troponin. #Acute on Chronic HFpEF. LVEF at [facility] is 57% on 06/01/24. #Left breast cancer, triple negative, on neoadjuvant carboplatin/docetaxel and Pembrolizumab (Cycle4, Day 1 on 05/29/24) There is concern that the patient???s nzgfs-ux-nohiqlq systolic heart failure may be related to ongoing chemotherapy (cycle 4 of pembrolizumab, docetaxel, and carboplatin started on 05/31/2024 at an outpatient infusion center in [place], [place]). As per Hematology, fluid retention can occur with docetaxel, and thus they will hold off chemotherapy for now. When MR for discharge, heme/onc will pursue surgical intervention of her cancer. - continue IV lasix 40 mg daily and assess response. Plan to transition to po tomorrow. - CHF teaching. - heme is following. Appreciate recommendations. - daily weights. I/Os. #Elevated troponin #NSTEMI type II in setting of ADF # paroxysmal afib, rate controlled. - Continue apixaban. - Metoprolol XL 50 mg daily #COPD. Not on oxygen or steroids. BIPAP in the ER. Transition back to room air. #Other chronic issues - Bipolar on lamotrigine, Insomnia on seroquel - Chronic pain disorder on percocet - Former tobacco abuse - Hypothyroidism - CKD stage III with baseile cr 1.2 -1.36 Diet: Daily Healthy Menu Choices/Cardiac diet ([facility]-Diet) DVT Prophylaxis: DOAC SCD Code status: Attempt Cardiopulmonary Resuscitation - Inpatient Disposition: Discharge Location: [facility] Basic Mobility Raw Score: 24 PT: OT: PCP Gaudencio Scales DO [phone] Ady Perkins MD 06/03/2024 * Juliette London RN - 06/02/2024 6:40 PM EDT Heparin gtt dc'd today, apixaban started. Pt ambulated in the calle with RADIOLOGIC TECHNOLOGIST MAMMOGRAM, tolerated well. Probable discharge tomorrow * Ady Perkins MD - 06/02/2024 9:23 AM EDT Images from the original note were not included. [facility] Cardiovascular Medicine CV HOSPITALIST 1 - [facility] DAILY PROGRESS NOTE Page [phone] to reach a provider 11/04 Admit Date: 05/31/2024 Encounter Date June 02, 2024 Anticipated Discharge Date: 06/04/2024 Hospital Day: 1 Active Hospital Problems Diagnosis Acute on chronic systolic and diastolic heart failure, NYHA class 2 Resolved Hospital Problems No resolved problems to display. 24 Hour Events/Subjective: - NAEON - Denies chest pain. Medications: Scheduled Meds: apixaban 5 mg Oral BID sodium chloride 0.9 % (flush) 5 mL Intravenous BID atorvastatin 80 mg Oral Daily at Noon baclofen 5 mg Oral BID clopidogreL 75 mg Oral Daily ipratropium-albuteroL 3 mL Nebulization Q4H COREY lamoTRIgine 100 mg Oral BID levothyroxine 100 mcg Oral QAM metoprolol succinate XL 50 mg Oral BID QUEtiapine 150 mg Oral Nightly cefTRIAXone 1 g Intravenous Q24H furosemide 20 mg Intravenous Daily Continuous Infusions: PRN Meds:.ondansetron, alum-mag hydroxide-simeth, sodium chloride 0.9 % (flush), lidocaine, nitroGLYcerin, acetaminophen, oxyCODONE-acetaminophen Objective: Last value Range last 24 hrs Temp: 37.2 ??C (99 ??F) Temp: [36.7 ??C (98.1 ??F)-37.4 ??C (99.3 ??F)] Heart Rate: 91 Heart Rate: [91-134] BP: (!) 132/37 BP: (103-148)/(37-70) Resp: 16 Resp: [16-20] SpO2: 96 % SpO2: [93 %-98 %] Height: 165.1 cm (5' 5) Weight: 97.5 kg (215 lb) BMI (Calculated): 36.14 BMI Classification: Obese Admit weight: 98.52 kg Patient Vitals for the past 168 hrs: Weight 06/02/24 0331 97.5 kg (215 lb) 06/01/24 0638 97.9 kg (215 lb 12.8 oz) 05/31/24 2300 98.5 kg (217 lb 3.2 oz) Intake/Output Summary (Last 24 hours) at 06/02/2024 1552 Last data filed at 06/02/2024 1300 Gross per 24 hour Intake 340 ml Output 1600 ml Net -1260 ml Physical Exam: Physical Exam Labs: Recent Labs 06/02/24 0126 06/01/24 0144 WBC 9.14 8.81 HGB 8.4* 8.3* HCT 25.4* 25.5* PLATELET 514* 523* MCV 94.1 95.9* Recent Labs 06/02/24 0126 06/01/24 0144 NA 138 142 CL 96* 97* CO2 28 28 K 3.9 3.9 CALCIUM 8.2* 8.5 BUN 38* 39* CREATININE 1.56* 1.69* Coags Recent Labs 06/01/24 0144 INR 0.9 PT 10.1 Cardiac Markers Recent Labs 06/01/24 1125 06/01/24 0144 TROPONINTHS 400* 318* PROBNP -- 6,330* Endocrine Recent Labs 06/01/24 0144 04/17/24 0729 03/28/24 0724 11/29/23 0027 TSH 0.60 3.58 3.34 -- HA1C -- -- -- 5.3 Recent Labs 06/01/24 0144 CHLPL 158 TRIG 208 HDL 42 LDLCHOL 81 Recent Labs 06/02/24 0126 06/01/24 0144 05/31/24 2357 GLUCOSE 104 126 -- POCGLU -- -- 128 EKG: SR, LBBB, TWI in lat leads Telemetry: SR Imaging: No results found for this visit on 05/31/24 (from the past 24 hour(s)). Assessment: Oksana Betancourt is 58 year F with PMHx: - paroxysmal afib on metoprolol 50 mg po bid and apixaban - severe aortic stenosis s/p TAVR in [facility] - ASCVD --->triple vessel CAD s/p staged PCI to mRCA, ostial RCA, ostial LCX, and mLCX in 02/23/22 in [facility]. ---> s/p acute NSTEMI, s/p cardiac catheterization (11/28/2023, [facility] CARDS Dr. Ryder Hargrove) - HFpEF (LVEF 50% on 03/06/2024), dry weight 220 - - Hodgkin's lymphoma left neck base for 22 years of age, s/p XRT, s/p resection left neck base, ands/p splenectomy ([facility], [place], [place]) - Left upper outer quadrant BRCA,estrogen receptor negative (diagnosed on 03/26/2024, 11:08am core needle biopsy revealing single <1 mm metastatic deposit is identified at the edge of one core as per [facility] Pathologist Dr. Andrew Wilson), no XRT, no resection, just chemotherapy (e.g., cycle #4 of pembrolizumab, docetaxel, and carboplatin) as per [facility] Heme-Onc Dr. David Lyn - Bipolar on lamotrigine, Insomnia on seroquel - Chronic pain disorder on percocet - Former tobacco abuse - COPD not on home oxygen or po steroids. - Hypothyroidism - CKD stage III with baseile cr 1.2 -1.36 The patient presented with shortness of breath for about 2 hours after starting chemotherapy. Cycle#4. 10:30 am-12pm at [facility]. Transferred to [facility]. Got BIPAP and solumedrol 125 IV x1. Transferred to ICU followed by po prednisone. Positive troponin. #Acute on Chronic HFpEF. LVEF at [facility] is 57% on 06/01/24. #Left breast cancer, triple negative, on neoadjuvant carboplatin/docetaxel and Pembrolizumab (Cycle4, Day 1 on 05/29/24) There is concern that the patient???s akyok-al-nbzraiu systolic heart failure may be related to ongoing chemotherapy (cycle 4 of pembrolizumab, docetaxel, and carboplatin started on 05/31/2024 at an outpatient infusion center in [place], [place]). As per Hematology, fluid retention can occur with docetaxel, and thus they will hold off chemotherapy for now. When MR for discharge, heme/onc will pursue surgical intervention of her cancer. - continue IV lasix 20 mg daily and assess response. - CHF teaching. - heme is following. Appreciate recommendations. - daily weights. I/Os. #Elevated troponin #NSTEMI type II in setting of ADF # paroxysmal afib, rate controlled. - resume apixaban. - Metoprolol XL 50 mg daily #COPD. Not on oxygen or steroids. BIPAP in the ER. Transition back to room air. Diet: Daily Healthy Menu Choices/Cardiac diet ([facility]-Diet) DVT Prophylaxis: DOAC SCD Code status: Attempt Cardiopulmonary Resuscitation - Inpatient Disposition: Discharge Location: [facility] Basic Mobility Raw Score: 16 PT: OT: PCP Gaudencio Scales DO [phone] Ady Perkins MD 06/02/2024 * Juliette London RN - 06/01/2024 5:24 PM EDT Continue heparin gtt, bedside echo obtained. Continue to monitor I's & O'S, respiratory status.Oncology met with patient at bedside, per patient she will be able to have breast surgery if needed. * Sheryl Beasley RD - 06/01/2024 3:20 PM EDT Nutrition Consult Note Oksana Betancourt is a 58 y.o. female admitted with acute on chronic systolic and diastolic heart failure. Relevant medical history includes NSTEMI, breast CA, undergoing chemo. Reason for Assessment: MST Evaluation Nutrition Recommendations: Continue [facility] diet. Liberalize to Regular if PO intake declines. Will send Ensure shakes for patient to try (chocolate and strawberry). Pt reports good appetite currently, but poor during the initial stages of chemo d/t nausea. Weigh patient twice weekly via standing scale. Current Nutrition Regimen: Active Orders Diet Daily Healthy Menu Choices/Cardiac diet ([facility]-Diet) Frequency: Effective Now Number of Occurrences: Until Specified Assessment: Lab Results Component Value Date NA 142 06/01/2024 NA 142 04/17/2024 K 3.9 06/01/2024 K 4.5 04/17/2024 CL 97 (L) 06/01/2024 CL 106 04/17/2024 CO2 28 06/01/2024 CO2 25 04/17/2024 BUN 39 (H) 06/01/2024 BUN 21 (H) 04/17/2024 CREATININE 1.69 (H) 06/01/2024 CREATININE 1.36 (H) 04/17/2024 ESTGFR 45 (L) 04/17/2024 MAGNESIUM 0.99 12/04/2023 CALCIUM 8.5 06/01/2024 CALCIUM 9.3 04/17/2024 PHOS 5.2 (H) 12/04/2023 AST 31 (H) 06/01/2024 AST 18 04/17/2024 ALT 24 06/01/2024 ALT 16 04/17/2024 ALKPHOS 542 (H) 06/01/2024 ALKPHOS 145 (H) 04/17/2024 BILITOT 0.2 06/01/2024 BILITOT 0.2 04/17/2024 BILIDIR <0.2 06/01/2024 BILIDIR 0.2 11/28/2023 TRIG 208 06/01/2024 TRIG 93 11/29/2023 HA1C 5.3 11/29/2023 Lab Results Component Value Date POCGLU 128 05/31/2024 Patient Lines/Drains/Airways Status Active Nutritional LDAs Name Placement date Placement time Site Days PIV 06/01/24 0034 basilic vein (medial side of arm), right 06/01/24 0034 -- less than 1 Implanted Port 03/23/24 1443 Single Lumen infraclavicular fossa, right 03/23/24 1443 -- 70 External Catheter 11/28/23201811/28/232018 -- 186 Oxygen Therapy / Airway Device: None (Room air) Last Bowel Movement: (FIELD MARKETING DIRECTOR) Intake/Output Summary (Last 24 hours) at 06/01/2024 1520 Last data filed at 06/01/2024 1100 Gross per 24 hour Intake 300 ml Output 1725 ml Net -1425 ml Relevant medications: lasix Anthropometrics: Admit Weight: 98.52 kg Estimated body mass index is 35.91 kg/m?? as calculated from the following: Height as of this encounter: 165.1 cm (5' 5). Weight as of this encounter: 97.9 kg (215 lb 12.8 oz). [place] Body Weight (IBW) (kg): 56.82 Usual Body Weight: 234 lbs (03/14/24) Weight Loss: unintentional Duration of Weight Loss: 3 Months Weight Lost: 19 lbs % of Weight Lost: 8.1 Wt Readings from Last 10 Encounters: 06/01/24 97.9 kg (215 lb 12.8 oz) 05/29/24 102.5 kg (226 lb) 05/08/24 104.1 kg (229 lb 6.4 oz) 04/17/24 106.2 kg (234 lb 2.1 oz) 03/28/24 105.7 kg (233 lb 0.4 oz) 03/14/24 106.2 kg (234 lb 2.1 oz) 02/28/24 110.7 kg (244 lb 0.8 oz) 12/04/23 106.6 kg (235 lb 1.6 oz) Patient Vitals for the past 168 hrs: Weight 06/01/24 0638 97.9 kg (215 lb 12.8 oz) 05/31/24 2300 98.5 kg (217 lb 3.2 oz) Weight Source: Standing Scale Estimated / Assessed Needs: Kcal / K - 1710 Kcal (25 Kcal/Kg - 30 Kcal/Kg) Estimated Protein Needs: 86 g - 114 g (1.5 g/Kg - 2.0 g/Kg) Nutrition intake and intake history / interview: 06/01: Pt seen for MST assessment d/t weight loss and decreased appetite d/t cancer treatment. Pt reports over the past couple months she had intermittent period of decreased PO intake during the initial stages of a round of chemo because her nausea would increase. Then it would improve as time wenton. Pt reports some days when the nausea was bad she would be ramiro to get some fluids in. She notes that zofran did help. She currently reports good appetite and PO Intake. She reports usual weight of 230-232 lbs, which would not quite qualify for clinically significant weight loss. Pt appears well nourished despite weight loss. She is agreeable to trying some Ensure shakes while she is here to see if this is something she might utilize while her PO is poor. Nutrition Focused Physical Exam: Not performed . Malnutrition Diagnosis: Not identified (Esme, JPEN J Parenteral Enteral Nutr. 2012 January; 36(3): 273-83) Nutrition to continue to follow up while inpatient [address] * Bao Jarrett OT - 06/01/2024 2:19 PM EDT Occupational Therapy Note Document Type: contact Total Minutes, Occupational Therapy: 0 Reason: OT consult received and Pt chart reviewed. Per PT, RN stating that Pt does not need OT and is near baseline. OT will complete order at this time. Please reconsult as needs arise. Pager: [phone] Bao Jarrett OT 06/01/2024 Occupational Therapy Rehabilitation Department * Rebecca John PT - 06/01/2024 1:16 PM EDT PT Note Physical Therapy referral received. Spoke with RN, who reports pt is mobilizing independently at her baseline. Plan for heart cath today. No PT needs identified at this time. If needs arise RN to notify PT. Rebecca John PT Pager [phone] documented in this encounter H&P Notes * Ham Haque MD - 06/01/2024 5:00 AM EDT Patient Name: Oksana Betancourt Patient Age: 58 y.o. Birthdate: 1965 Admit date: 05/31/2024 Attending Physician: Rogelio Wong MD Chief complaint: I got short of breath 2 hours after starting my chemotherapy (e.g., cycle #4 of pembrolizumab, docetaxel, and carboplatin was started on 05/31/2024, 10:30am - 12:00pm @ outpatient infusion center in [place], [place]) that my cancer doctor, Dr. David Lyn, has me on to treat my breast cancer. That never happened to me before in the 3 times that I have received this same chemotherapy in the past. So, I stopped this chemotherapy right away (05/31/2024, 12:00pm), and I could breathe better after that. I did not have any chest pain, pressure, heaviness, or tightness when I got short of breath. They sent me to [facility] ER ([place], [place]), and put me on BIPAP and some steroids, and then sent me here. I feel fine now. History of Present Illness: 58 years old female with PMH of FULL CODE @ home alone, obesewith BMI 36.14 (height 165.1 cm; weight 98.5 kg), bipolar disorder on lamotrigine 100mg PO bid, insomnia disorder on seroquel 150mg PO qhs, chronic pain disorder on percocet 10/325mg PO q8 prn back pain, former tobacco abuse (e.g., quit smoking 2 weeks ago, ~ 1 pack of cigarettes per day from 13 years of age till 58 years of age) with subsequent diagnosis of COPD, not on home O2 or home steroids,hypothyroidism, CKD stage III with baseline creatinine range, 1.20 - 1.36 (11/28/2023 - 04/17/2024), chronic macrocytic, normochromic anemia with baseline Hb range, 9.6 - 10.3 g/dL (11/29/2023 - 04/17), Hodgkin's lymphoma @ left neck base @ 22 years of age, s/p XRT, s/p resection @ left neck base, and s/p splenectomy ([place], [place]), left upper outer quadrant BRCA, estrogen receptor negative (diagnosed on 03/26/2024, 11:08am core needle biopsy revealing single <1 mm metastatic deposit is identified at the edge of one core; radiologic correlation is suggested asper [facility] Pathologist Dr. Andrew Wilson), no XRT, no resection, just chemotherapy (e.g., cycle #4of pembrolizumab, docetaxel, and carboplatin) as per [facility] Heme-Onc Dr. David Lyn, paroxysmal AFIB on metoprolol 50mg PO bid and eliquis 5mg PO bid, severe aortic stenosis s/p TAVR ([place], [place], 01/26/2022), baseline LBBB, triple vessel CAD s/p staged PCI ([place], [place], 02/23/2022 (with CRIS x1 to mid- RCA, CRIS x2 to ostial RCA, CRIS x1 to ostial LCX, and CRIS x1 to mid-LCX), s/p acute NSTEMI, s/p cardiac catheterization (11/28/2023, [facility] CARDS Dr. Ryder Hargrove): Coronary Angiography: Anatomically normal right dominant circulation LMCA: 90% distal LM lesion LAD: 90% ostial LAD lesion LCx: Minimal luminal irregularities noted, patent stents RCA: 90% ostial and proximal RCA disease (in-stent) RCA IVUS: In-stent neoatherosclerosis in the ostial and proximal RCA. Well- apposed and expanded stent post-intervention. Contrast: 215 ccs LVEDP: 16 mmHg Conclusion: - High-grade serial ostial and proximal RCA lesions with early in-stent neoatherosclerosis s/p a single 3.5 x 22 mm [place] Hammond CRIS. - High grade distal LM and ostial LAD lesion which will need staged intervention. - Right brachial artery occlusion precluding use of right radial access. - Difficult coronary engagement due to Evolut Cor-valve. - Right femoral access with great stick. Plan for manual hold as we will re- access for staged intervention of the LM/LAD. - The patient tolerated the procedure well and was transferred from the cardiac catheterization labin stable condition without apparent complications. Patient is now on plavix 75mg PO daily and atorvastatin 80mg PO qhs for secondary prophylaxis against CAD, and was recently diagnosed with chronic systolic CHF with reduced LV EF 50% (as noted on 03/06/2024 TTE, [facility] CARDS Dr. Gillian Godoy) with dry baseline weight of 220-230 pounds at home, subsequently sleeping in a recliner, not a bed at home, without coincident complaints of unintentional weight gain (cf., patient actually complains of unquantified weight loss in the setting of her recently diagnosed left upper outer quadrant BRCA), paroxysmal nocturnal dyspnea, or orthopnea, at home, who complains: I got short of breath 2 hours after starting my chemotherapy (e.g., cycle #4 of pembrolizumab, docetaxel, and carboplatin was started on 05/31/2024, 10:30am - 12:00pm @ outpatient infusion center in [place], [place]) that my cancer doctor, Dr. David Lyn, has me on to treat my breast cancer. That never happened to me before in the 3 times that I have received this same chemotherapy in the past. So, I stopped this chemotherapy right away (05/31/2024, 12:00pm), and I could breathe better after that. I did not have any chest pain, pressure, heaviness, or tightness when I gotshort of breath. Patient was subsequently transported from the outpatient infusion center in [place], [place] to [facility] ER ([place], [place]) on 05/29/2024, and was started on BIPAP and solumedrol 125mg IV x 1 dose(05/29/2024, 1:25pm), then transferred to their ICU bed #220 on 05/29/2024, where patient continued with BIPAP and solumedrol 60mg IV x 1 dose (05/30/2024, 12:00am), followed by prednisone 40mg PO daily (day #1 on 05/31/2024, 5:30am). In addition, labs in [facility] ER ([place], [place]) were noted for: WBC 14.2, N64 L32 M3, Hb 8.3, MCV 103.0, MCHC 30.3, platelet 414 (05/29/2024, 1:38pm). Influenza A- B-, COVID-, RSV- (05/29/2024, 3:24pm). TSH 5.36 uIU/mL (05/29/2024, 1:38pm). Free T4 1.07 ng/dL (05/29/2024, 1:38pm). Na 138, K 4.4, BUN 13, creatinine 1.6, GFR 36.69 (05/29/2024, 1:38pm). Troponin #1 1,108 ng/L (05/29/2024, 1:38pm). Troponin #2 963 ng/L (05/29/2024, 2:55pm). Troponin #3 2,036 ng/L (05/29/2024, 6:20pm). U/A with microscopy (05/29/2024, 3:05pm): cloudy yellow, LE moderate, nitrite-, WBC > 50, RBC 0-2, epithelial cells few, bacteria many. Urine culture (05/29/2024, 3:05pm): pending. Additional testing in [facility] ER ([place], [place]) included: EKG #1 (05/29/2024, 1:36pm): sinus tachy @ 127, AL 110, QTC 518, ST elevations attributed to intraventricular conduction delay. (cf., images of EKG not available at the time of my review of patient'schart). EKG #2 (05/29/2024, 3:06pm): normal sinus @ 96, AL 125, QTC 527, ST elevations attributed to LVH (cf., images of EKG not available at the time of my review of patient's chart). CTA chest (05/29/2024): no PE (cf., actual printed report of CTA chest not available at the time ofmy review of patient's chart). Patient was subsequently admitted to the inpatient hospitalist service @ [facility] ICU bed #220 on 05/29/2024 with the following diagnoses: Acute systolic CHF (RESOLVING)-on-chronic systolic CHF with reduced LV EF 50% (as noted on 03/06/2024 TTE, [facility] CARDS Dr. Gillian Godoy) with dry baseline weight of 220-230 pounds at home, subsequently sleeping in a recliner, not a bed at home, without coincident complaints of unintentional weight gain (cf., patient actually complains of unquantified weight loss in the setting of her recently diagnosed left upper outer quadrant BRCA), paroxysmal nocturnal dyspnea, or orthopnea, at home. R/O cardio-toxic effects of ongoing chemotherapy (cycle #4 of pembrolizumab, docetaxel, and carboplatin wasstarted on 05/31/2024, 10:30am - 12:00pm @ outpatient infusion center in [place], [place]) as per [facility] Heme-Onc Dr. David Lyn. R/O acute NSTEMI with troponin #1 1,108 ng/L (05/29/2024, 1:38pm). Acute renal injury with admission creatinine 1.60 mg/dL (05/29/2024, 1:38pm), superimposed on CKD stage III with baseline creatinine range, 1.20 - 1.36 (11/28/2023 - 04/17/2024). Acute UTI. Acute macrocytic, normochromic anemia with admission Hb 8.3 g/dL, MCV 103.0, MCHC 30.3 (05/29/2024,1:38pm), superimposed on chronic macrocytic, normochromic anemia with baseline Hb range, 9.6 - 10.3g/dL (11/29/2023 - 04/17/2024). To address #1, patient was started on lasix 40mg IV x 1 dose (05/29/2024, 2:09pm) in [facility] ER, followed by lasix 40mg IV bid (05/30/2024, 10:43am) in [facility] ICU bed #220. Patient was also started on BIPAP in [facility] ER, followed by ongoing BIPAP in [facility] ICU bed #220. Patient was subsequently transitioned off BIPAP and back to room air prior to arrival at [facility] HVU bed #489-A on 12/30/2023. Patient subsequently awaits TTE (to check for any interval changes in cardiac performance since 03/06/2024 TTE, [facility] CARDS Dr. Gillian Godoy) and/or cardiac catheterization (to check for possible acute myocardial ischemia / acute NSTEMI), as well as formal CARDS Service evaluation, all of which are services not available at [facility], thereby necessitating the transfer of patient to [facility] HVU bed #489A. In addition, I will solicit formal Heme-Onc Service evaluation with patient's Heme- Onc Dr. David Lyn in the 06/01/2024 am, to determine if patient's kqsom-ys-vytyoio systolic CHF is due, in part, to patient's ongoing chemotherapy (cycle #4 of pembrolizumab, docetaxel, and carboplatin was started on 05/31/2024, 10:30am - 12:00pm @ outpatient infusion center in [place], [place]) as per [facility] Heme-Onc Dr. David Lyn. To address #2, patient was placed on telemetry and awaits repeat troponin (06/01/2024, 2:00am), EKG(06/01/2024, 2:00am), TTE (to check for any interval changes in cardiac performance since 03/06/2024 TTE, [facility] CARDS Dr. Gillian Godoy) and/or cardiac catheterization (to check for possible acute myocardial ischemia / acute NSTEMI), as well as formal CARDS Service evaluation, all of which are services not available at [facility], thereby necessitating the transfer of patient to [facility] HVU bed #489-A. In the interim, patient was continued on her home-scheduled metoprolol 50mg PO bid, plavix 75mg PO daily, and atorvastatin 80mg PO daily. In addition, patient was held off her home-scheduled eliquis 5mg PO bid (used to mitigate risk of thrombo-embolism in the setting of paroxysmal AFIB at home) and in its place, patient was started on heparin infusion (05/29/2024, 2:09pm). To address #3, patient was lasix 40mg IV x 1 dose (05/29/2024, 2:09pm) in [facility] ER, followed by lasix 40mg IV bid (05/30/2024, 10:43am) in [facility] ICU bed #220. Patient awaits repeat creatinine level in the 06/01/2024 am. In this patient, any further renal embarrassment caused by ongoing lasix-mediated diuresis is tempered by patient's increasing ease of breathing provided by lasix-mediated diuresis. To address #4, patient was started on zosyn 4.5g IV x 1 dose (05/29/2024, 4:25pm) in [facility] ER, followed by doxycycline 100mg IV q2 (05/30/2024, 2:18am) and zosyn 3.375g IV q12 x 1 dose (05/31/2024, 12:14pm) in [facility] ICU bed #220. Of note, it remainsunclear why this patient was started on either antibiotic for an apparent, acute, uncomplicated UTI; in addition, there is no mention of infiltrate/consolidation To address #5, patient awaits repeat Hb level testing in the 06/01/2024 am with reservation of packed RBC transfusion for Hb level less than 7 g/dL. Patient was subsequently transferred from [facility] ICU bed #220 to [facility] HVU bed #489-A on 05/31/2024 and placed in OBSERVATION on the Cardiology Hospitalist Service on 05/31/2024 with the same diagnoses and same plan(s) listed above. Past medical history: As above in the History of Present lllness. Past surgical history: As above in the History of Present Illness. Family history: Patient's father is at 72 years of age from Alzheimer's dementia. Family history: Patient's mother is at 83 years of age from Alzheimer's dementia. Social history: Positive for former tobacco abuse (e.g., quit smoking 2 weeks ago, ~ 1 pack of cigarettes per day from 13 years of age till 58 years of age) with subsequent diagnosis of COPD, not on home O2 or home steroids. Negative for alcohol and illicit drug use. 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 Patient is retired. Patient is , and has a 40 years old son and a 42 years old daughter, both alive and well. Patient lives alone at her home, and walks without assistance from cane, walker, or wheelchair. Patient comes to [facility] HVU bed #489-A as a direct transfer from [facility] ICU bed #220 ([place], [place]) today, 05/31/2024. Review of Systems: As above in the History of Present Illness. Medications at home: Apixaban 5mg PO bid. Atorvastatin 80mg PO qhs. Clopidogrel 75mg PO daily. Baclofen 5mg PO bid. Dexamethasone 4mg PO daily on days #2, #3, and #4 of chemotherapy. Furosemide 20mg PO daily. Lamotrigine 100mg PO bid. Synthroid 100ug PO daily. Metoprolol 50mg PO bid. Seroquel 150mg PO qhs. Omeprazole 20mg PO daily. Percocet 10/325mg PO q8 prn back pain. Allergies: NKDA. NKFA. Physical exam: 36.7 degrees Celsius, HR 103, RR 18, O2 sat 97% on room air, BP 87/56 (05/31/2024, 11:28pm). 36.7 degrees Celsius, HR 90, RR 18, O2 sat 98% on room air, BP 128/59 (06/01/2024, 3:58am). General appearance: Comfortable, coherent, cooperative. Wide awake and alert. Not confused, lethargic, or obtunded. Patient speaks clearly, fluently, and articulately without pause, interruption, cough, or wheeze. HEENT: NC/AT, EOMI, PERRL. No nystagmus, gaze paresis, anisocoria, miosis, mydriasis, chemosis, hyphema, scleral injection, conjunctivitis, or pterygium. Tympanic membranes intact. No otorrhea. No rhinorrhea. No pharyngeal discharge/enanthem. Neck: Supple, no stridor, bruit, goiter, JVD, or HJR. Chest: Non-tender chest on palpation. Lungs: Clear to auscultation and percussion. No wheeze, egophony, pectoriloquy, increase in tactilefremitus, or flatness/dullness to percussion at the bases Abdomen: Soft, non-tender, no rebound, guarding, Thurston's sign, or organomegaly. Bowel sounds auscultated in all 4 quadrants. Extremities: No clubbing, cyanosis, or edema. 2+ pedal pulses bilaterally. No hematoma @ right radial artery (catheterization site). Skin: No exanthem. No skin tenting or delay in capillary refill time > 2 seconds. Neuro: Alert and oriented in regards to person, place, or time. DTR+ bilaterally/symmetric. 5/5 motor strength bilaterally, proximally and distally. Urology: No urethral discharge. No ordoñez catheter in situ. Labs: As above in the History of Present Illness. ASSESSMENT: 1.Acute systolic CHF (RESOLVING)-on-chronic systolic CHF with reduced LV EF 50% (as noted on 03/06/2024 TTE, [facility] CARDS Dr. Gillian Godoy) with dry baseline weight of 220-230 pounds at home, subsequently sleeping in a recliner, not a bed at home, without coincident complaints of unintentional weight gain (cf., patient actually complains of unquantified weight loss in the setting of her recently diagnosed left upper outer quadrant BRCA), paroxysmal nocturnal dyspnea, or orthopnea, at home. R/O cardio-toxic effects of ongoing chemotherapy (cycle #4 of pembrolizumab, docetaxel, and carboplatin was started on 05/31/2024, 10:30am - 12:00pm @ outpatient infusion center in [place], [place]) as per [facility] Heme-Onc Dr. David Lyn. 2.R/O acute NSTEMI with troponin #1 1,108 ng/L (05/29/2024, 1:38pm). 3.Acute renal injury with admission creatinine 1.60 mg/dL (05/29/2024, 1:38pm), superimposed on CKDstage III with baseline creatinine range, 1.20 - 1.36 (11/28/2023 - 04/17/2024). 4.Acute UTI. 5.Acute macrocytic, normochromic anemia with admission Hb 8.3 g/dL, MCV 103.0, MCHC 30.3 (05/29/2024, 1:38pm), superimposed on chronic macrocytic, normochromic anemia with baseline Hb range, 9.6 - 10.3 g/dL (11/29/2023 - 04/17/2024). PLAN: To address #1, patient was started on lasix 40mg IV x 1 dose (05/29/2024, 2:09pm) in [facility] ER, followed by lasix 40mg IV bid (05/30/2024, 10:43am) in [facility] ICU bed #220. Patient was also started on BIPAP in [facility] ER, followed by ongoing BIPAP in [facility] ICU bed #220. Patient was subsequently transitioned off BIPAP and back to room air prior to arrival at [facility] HVU bed #489-A on 12/30/2023. Patient subsequently awaits TTE (to check for any interval changes in cardiac performance since 03/06/2024 TTE, [facility] CARDS Dr. Gillian Godoy) and/or cardiac catheterization (to check for possible acute myocardial ischemia / acute NSTEMI), as well as formal CARDS Service evaluation, all of which are services not available at [facility], thereby necessitating the transfer of patient to [facility] HVU bed #489-A. In addition, I will solicit formal Heme-Onc Service evaluation with patient's Heme- Onc Dr. David Lyn in the 06/01/2024 am, to determine if patient's azzlf-vu-qgqsznh systolic CHF is due, in part, to patient's ongoing chemotherapy (cycle #4 of pembrolizumab, docetaxel, and carboplatin was started on 05/31/2024, 10:30am - 12:00pm @ outpatient infusion center in [place], [place]) as per [facility] Heme-Onc Dr. David Lyn. To address #2, patient was placed on telemetry with repeat troponin trending down from troponin #3 2,036 ng/L (05/29/2024, 6:20pm) at [facility] ICU bed #220 to 318 ng/L (06/01/2024, 1:44am) at [facility] HVU bed #489-A. Patient awaits EKG (06/01/2024, 2:00am), TTE (to check for any interval changes in cardiac performance since 03/06/2024 TTE, [facility] CARDS Dr. Gillian Godoy) and/or cardiac catheterization (to check for possible acute myocardial ischemia / acute NSTEMI), as well as formal CARDS Service evaluation, all of which are services not available at [facility], thereby necessitating the transfer of patient to [facility] HVU bed #489A. In the interim, patientwas continued on her home-scheduled metoprolol 50mg PO bid, plavix 75mg PO daily, and atorvastatin 80mg PO daily. In addition, patient was held off her home- scheduled eliquis 5mg PO bid (used to mitigate risk of thrombo-embolism in the setting of paroxysmal AFIB at home) and in its place, patient was started on heparin infusion (05/29/2024, 2:09pm). To address #3, patient was lasix 40mg IV x 1 dose (05/29/2024, 2:09pm) in [facility] ER, followed by lasix 40mg IV bid (05/30/2024, 10:43am) in [facility] ICU bed #220. Patient will continue with lasix 40mg IV bid x2 doses (06/01/2024, 9:00am) in [facility] HVU bed#489-A. Patient awaits repeat creatinine level in the 06/01/2024 am. In this patient, any further renal embarrassment caused by ongoing lasix-mediated diuresis is tempered by patient's increasing ease of breathing provided by lasix-mediated diuresis. To address #4, patient was started on zosyn 4.5g IV x 1 dose (05/29/2024, 4:25pm) in [facility] ER, followed by doxycycline 100mg IV q2 (05/30/2024, 2:18am) and zosyn 3.375g IV q12 x 1 dose (05/31/2024, 12:14pm) in [facility] ICU bed #220. Of note, it remainsunclear why this patient was started on either antibiotic for an apparent, acute, uncomplicated UTI; in addition, there is no mention of infiltrate/consolidation on CTA chest (05/29/2024): no PE (cf., actual printed report of CTA chest not available at the time of my review of patient's chart). Hence,I have opted to start patient on ceftriaxone 1g IV daily (day #1/3 on 06/01/2024, 6:45am) and I will check urine culture (06/01/2024, 4:11am) in [facility] HVU bed #489-A, as I do not have urine culture (05/29/2024, 3:05pm) results from [facility] to guide current antibiotic therapy. To address #5, patient awaits repeat Hb level testing in the 06/01/2024 am with reservation of packed RBC transfusion for Hb level less than 7 g/dL. documented in this encounter Miscellaneous Notes * Care Management Discharge - Roberth Spring RN - 06/05/2024 11:18 AM EDT CARE MANAGEMENT FINAL DISCHARGE NOTE Chart reviewed, care reviewed with primary team and at interdisciplinary rounds. Patient is medically ready for discharge to home. Needs for Transition of Care: per discharge instructions Plan for discharge is: Home w/ Services Outpatient Agency/Support Group Needs: Homecare agency Home Health Services: Registered Nurse, Home Health Aide Agency Referrals & Follow-up Care: Contact information for follow-up [facility], [place] [address] KANDI MEREDITH confirmed with [facility] that they will see the patient for anticipated start of care within 24-48 hours of discharge. Transportation: family or friend will provide Wheelchair van/Ambulance? No Functional status prior to admission: Independent Home Environment: Others in the home: alone. Current Living Arrangements: home/apartment/condo. Accessibility Concerns:Apartment, one level, no stairs. Current Functional Ability: Independent DME used at home: none DME Needed at Discharge: None Patient is insured through: Primary Insurance: [employer] MANAGED MEDICARE Payor: A[employer] MANAGED MEDICARE / Plan: [facility] MANAGED MEDICARE COMPLETE / Product Type: *No Product type* / Secondary Insurance: MEDICAID [place] Prescription Coverage: This plan was formulated with input from patient and team. All are in agreement with plan. * Care Management - Roberth Spring RN - 06/04/2024 3:56 PM EDT OFFICE OF CARE MANAGEMENT PROGRESS NOTE LOS: Hospital Day 1 day Chart reviewed, care reviewed with primary team and at interdisciplinary rounds. Patient continues to meet inpatient level of care related to: Acute on chronic systolic and diastolic heart failure, NYHA class 2 Functional status prior to admission: Independent Home Environment: Others in the home: alone. Current Living Arrangements: home/apartment/condo. Accessibility Concerns: Apartment, one level, no stairs. Current Functional Ability: Independent DME used at home: none DME Needed at Discharge: None anticipated Patient is insured through: Primary Insurance: [employer] MANAGED MEDICARE Payor: [facility] MANAGED MEDICARE / Plan: [facility] MANAGED MEDICARE COMPLETE / Product Type: *No Product type* / Secondary Insurance: MEDICAID [place] Plan for discharge is: home w/ home health services Agency Referrals: [facility] [address] [place] [id number] Transportation: friend or family will provide Barriers to discharge: None anticipated Plan going forward: d/c plan pending clinical course, but anticipating d/c home with home health services when Anticipated Date of Discharge: 06/05/2024 * Plan of Care - Lizzy Torres RN - 06/02/2024 10:00 PM EDT NAOE. Meds per NOV. Slept well. Independent to bathroom: patient reports urinating twice overnight and no BM's. NSR throughout shift. Daily weight obtained via standing scale. No other issues - continue to monitor. Problem: Adult Inpatient Plan of Care Goal: [...] Outcome: Ongoing (Interventions Implemented as Appropriate) Problem: Fluid Volume Excess Goal: Fluid Balance Outcome: Ongoing (Interventions Implemented as Appropriate) * Plan of Care - Ange Trejo RN - 06/02/2024 2:01 AM EDT OUTCOME EVALUATION NOTE: OUTCOME SUMMARY: Pt A&Ox4. Pt intermittently tachycardic to the 110s, otherwise VSS on RA w/ telemetry in place.Up to the toilet to void as needed w/o issue. No BM. C/o 4/10 pain in the neck that pt states isn'tnew, declined pain medication when offered. Heparin drip infusing @ 800units/ hr. UFH @ 0130 was therapeutic. Consecutive UFH due @ 0730. Resting between care. All needs met at this time. Hand off rep ort given to KANDI Lyn @ 0300. PLAN MOVING FORWARD: Maintain heparin drip. Pain management. D/C planning. INDIVIDUALIZED FALL PREVENTION INTERVENTIONS: Patient-specific fall risk factors per assessment: [current deficits]: Patient has an actively infusing IV line and pain Assistance [level of assistance required for transfers and ambulation]: SBA. Supervision [direct monitoring required during toileting and ADLs]: Eyes on. Surveillance [continuous indirect monitoring]: Hourly rounding, observation by staff, NKE at bedside. Assistive device, urinal, environmental modifications (reduce clutter, lighting adjusted for safety, IV tubing and cords are free from the floor), nonskid shoes/slippers when out of bed, bed in lowposition, upper position siderails raised x2 (x3), wheels locked, call light in reach, ID bands on,yellow falls ID band on Patient-specific fall prevention interventions for sensory deficits provided, if applicable: [X] N/A CPG GOAL OUTCOME EVALUATION: * Plan of Care - Juliette London RN - 06/01/2024 5:31 PM EDT OUTCOME EVALUATION NOTE: OUTCOME SUMMARY: CONTINUE TO DIURESIS, MONITOR I's & O'S PLAN MOVING FORWARD: NPO FOR POSSIBLE GUIDANCE DIRECTOR INDIVIDUALIZED FALL PREVENTION INTERVENTIONS: Patient-specific fall risk factors per assessment: [current deficits]: Problem: Adult Inpatient Plan of Care Goal: Plan of Care Review Outcome: Ongoing (Interventions Implemented as Appropriate) Goal: Patient-Specific Goal (Individualized) Outcome: Ongoing (Interventions Implemented as Appropriate) Goal: Absence of Hospital-Acquired Illness or Injury Outcome: Ongoing (Interventions Implemented as Appropriate) Goal: Optimal Comfort and Wellbeing Outcome: Ongoing (Interventions Implemented as Appropriate) OUTCOME EVALUATION NOTE: OUTCOME SUMMARY: IV diuresing, continue Heparin gtt. PLAN MOVING FORWARD: [place]po at [place] for possible clinical lab scientist tomorrow INDIVIDUALIZED FALL PREVENTION INTERVENTIONS: Patient-specific fall risk factors per assessment: [current deficits]: generalized weakness Assistance [level of assistance required for transfers and ambulation]: SBA upervision [direct monitoring required during toileting and ADLs]: HOURLY ROUNDING Surveillance [continuous indirect monitoring]: CONTINUOUS TELEMETRY Patient-specific fall prevention interventions for sensory deficits provided, if applicable: CPG GOAL OUTCOME EVALUATION: Assistance [level of assistance required for transfers and ambulation]: SBA Supervision [direct monitoring required during toileting and ADLs]: HOURLY ROUNDING Surveillance [continuous indirect monitoring]: CONTINUOUS TELEMETRY Patient-specific fall prevention interventions for sensory deficits provided, if applicable: CPG GOAL OUTCOME EVALUATION: * Initial Assessments - Maryann Leong MSW - 06/01/2024 2:09 PM EDT Office of Care Management Initial Assessment Medical record reviewed. Plan of care and patient status discussed with direct care Registered Nurse and/or Care Team in multidisciplinary rounds. Reason for Hospitalization: Chest pain- SOB Last COVID test: Present on Admission: Acute on chronic systolic and diastolic heart failure, NYHA class 2 Hospitalizations Within the Past 30 Days: no previous admission in last 30 days Patient receiving hospital care under Observation status. Admission order reviewed. Health/Prescription Coverage: Primary Insurance: [employer] MANAGED MEDICARE Payor: [employer] MANAGED MEDICARE / Plan: [employer] MANAGED MEDICARE COMPLETE / Product Type: *No Product type* / Secondary Insurance: MEDICAID [place] ; Prescription Coverage: Preferred Pharmacy: [id number] - [place], [place] - [address] [facility] [place] [id number] Advance Care Planning: Attempt Cardiopulmonary Resuscitation - Inpatient <no information> -Advanced Directive: No, need to discuss Current Functional Ability: 1 assist Functional Status Prior to Admission: Independent Home Environment: Others in the home: alone. Current Living Arrangements: home/apartment/condo. Accessibility Concerns:Apartment, one level, no stairs. Current DME: none [address] [facility] [address] Social & Family Supports: All names listed below confirmed with patient as current and correct Extended Emergency Contact Information Primary Emergency Contact: Lizeth Menard Address: [place] [address] Mobile Relation: Brother/[id number] Current Care Provided by: self Transportation: no concerns Transportation Anticipated: family or friend will provide Assessment: Patient with no apparent RNCM/SW needs at this time. No housing, transportation, insurance, resources concerns identified at this time. Supports in place to achieve a safe post-hospital transition. No identified barriers to accessing necessary care and/or follow-up after discharge. Plan: Patient to d/c to home via family (car) when medically ready. Registered Nurse Physical Director / Graphics Manager will continue to follow patient???s progress and remain available if situation changes for coordination of care, psychosocial support and/or discharge planning. Office of Care Management [facility] ED Social Work / Float Jannette (06/01/24) Tuesday-Tuesday Pager: [phone] * Consult Note - Skylar Auguste MD - 06/01/2024 8:50 AM EDT NEW ONCOLOGY CONSULT Reason for consult: We are seeing Oksana Betancourt at the request of Dr. Eboni MD to evaluate for chemotherapy induced cardiomyopathy. I have reviewed all available records, interviewed and examined the patient. HPI Oksana Betancourt is 58 y.o. with PMH of hodgkin lymphoma about 35 years ago and treated with radiation therapy, NSTEMI in November 2023 who is currently on Plavix and took aspirin for 1 month. She is also on Eliquis. She has a history of triple-vessel CAD status post staged PCI in [place] in March 2022with CRIS x 1 to mid RCA, CRIS x 2 to ostial RCA, CRIS x 1 to ostial left circumflex and CRIS x 1 to mid left circumflex, severe aortic stenosis status post TAVR in 2021, baseline LBBB, hyperlipidemia and hypertension, CKD stage IIIb, bipolar disorder, COPD and hypothyroidism with most recent NSTEMI. She underwent left heart cath on 11/28/2023 demonstrating high-grade lesion in the proximal RCA in-stent stenosis, distal left main and ostial LAD. A CRIS was placed in the RCA. At outside hospital her LVEF was 10 to 15% on bedside TTE. Echocardiogram showing LVEF 44% and segmental wall motion abnormality which are in the RCA distribution. No thrombus. She was eventually diagnosed with cT1c N1mic Mx left breast cancer, triple negative and started on neoadjuvant carboplatin/docetaxel and Pembrolizumab (Cycle 4, Day 1 on 05/29/24). During her infusion, the patient complained of abrupt onset chest pain and shortness of breath. She was transferred to the ED. In the ED, she was wheezing and was given steroids and duonebs. With B lines on ultrasound, she was given lasix and started on bipap with 800cc of UOP, now on 4L NC. Has a troponin 1100-->963 (ULN 51), where chest pain much improved. Shewas transferred to [facility] for further management. Oncology was consulted by her Primary Oncologist, Dr. Eboni MD to follow along. Per my encounter, the patient reports resolution of chest pain. Her shortness of breath has significantly improved since her diuresis. ROS 10 point review of system is unremarkable other than what has been told in HPI No outpatient medications have been marked as taking for the 05/31/24 encounter (Hospital Encounter). No past medical history on file. Past Surgical History: Procedure Laterality Date IR MEDIPORT PLACEMENT 03/23/2024 IR Mediport Placement 03/23/2024 Cely Schmitt PA [facility] INTERVENTIONL RAD MAMMO US BIOPSY LEFT Left 03/26/2024 Mammo Us Biopsy Left 03/26/2024 Ana Weber MD [facility] RAD MAMMOGRAPHY Family History Problem Relation Age of Onset Skin Cancer Father Cancer Maternal Grandmother suspected, unsure primary Cancer Paternal Grandmother unsure primary Breast Cancer Paternal Half-Sister 46 of same at age 46 Cancer Maternal Uncle suspected, unsure primary Ovarian Cancer Neg Hx Social History Socioeconomic History Marital status: Declines to List Spouse name: Not on file Number of children: Not on file Years of education: Not on file Highest education level: Not on file Occupational History Not on file Tobacco Use Smoking status: Former Current packs/day: 0.00 Average packs/day: 1 pack/day for 40.0 years (40.0 ttl pk-yrs) Types: Cigarettes Start date: 11/17/1981 Quit date: 11/17/2021 Years since quittin.5 Smokeless tobacco: Never Substance and Sexual Activity Alcohol use: Not [...] Somewhat hard Food Insecurity: No Food Insecurity (05/29/2024) Hunger Vital Sign Worried About Running Out of Food in the Last Year: Never true Ran Out of Food in the Last Year: Never true Transportation Needs: No Transportation Needs (05/29/2024) PRAPARE - Transportation Lack of Transportation (Medical): No Lack of Transportation (Non-Medical): No Physical Activity: Not on file Intimate Partner Violence: Not At Risk (05/31/2024) IPV Inpatient Questions Prevent Contact with Others: no Feels Threatened by Someone: no Feels Unsafe at Home: no Physical Signs of Abuse Present: no Housing Stability: Low Risk (05/29/2024) Housing Stability Vital Sign Unable to Pay for Housing in the Last Year: No Number of Times Moved in the Last Year: 1 Homeless in the Last Year: No PHYSICAL EXAM Patient Vitals for the past 24 hrs: BP Temp Temp src Pulse Resp SpO2 Height Weight 06/01/24 0638 -- -- -- -- -- -- -- 97.9 kg (215 lb 12.8 oz) 06/01/24 0358 128/59 36.7 ??C (98 ??F) Oral 90 18 98 % -- -- 05/31/24 2328 (!) 87/56 36.7 ??C (98.1 ??F) Oral (!) 103 18 97 % -- -- 05/31/24 2300 -- -- Oral -- -- -- 165.1 cm (5' 5) 98.5 kg (217 lb 3.2 oz) Body surface area is 2.12 meters squared. Wt Readings from Last 3 Encounters: 06/01/24 97.9 kg (215 lb 12.8 oz) 05/29/24 102.5 kg (226 lb) 05/08/24 104.1 kg (229 lb 6.4 oz) Constitutional: Well developed, appears in NAD Eye: Normal conjuctivae, PERRL, EOMI HENT: normocephalic and atraumatic head, neck supple and non- tender, no lymphadenopathy appreciated. Oral mucosa moist. Pulm: Clear to auscultation bilaterally, no wheezes, rhonchi or rales; good inspiratory effort CVS: normal S1 and S2, RRR, no murmurs GI: Soft, non-tender, bowel sounds appreciated in all 4 quadrants Ext: No edema, clubbing MSK: No joint swelling, no spinal tenderness Neuro: CN2-12 grossly intact, no focal deficits Psych/ mood: Does not appear anxious or depressed, good affect DIAGNOSTICS Last 3 wbc, hgb, hct plt Recent Labs 06/01/24 0144 05/07/24 1037 04/17/24 0729 WBC 8.81 10.73 13.0* HGB 8.3* 9.6* 10.7* HCT 25.5* 30.7* 33.1* PLATELET 523* 453 511* Last 3 Lytes Recent Labs 06/01/24 0144 05/07/24 1037 04/17/24 0729 NA 142 142 142 K 3.9 4.6 4.5 CL 97* 106 106 CO2 28 26.3 25 BUN 39* 22* 21* CREATININE 1.69* 1.4* 1.36* Last 3 LFTs Recent Labs 06/01/24 0144 05/07/24 1037 04/17/24 0729 03/28/24 0724 03/06/24 1419 11/28/23 1110 AST 31* 20 18 16 < > 48* ALT 24 22 16 13 < > 16 ALKPHOS 542* 193* 145* 144* < > 117* BILITOT 0.2 -- 0.2 0.5 < > 0.6 BILIDIR <0.2 -- -- -- -- 0.2 < > = values in this interval not displayed. Last Ca, Mg, Phos Recent Labs 06/01/24 0144 CALCIUM 8.5 Last 3 ProBNP, Trop, CK Recent Labs 06/01/24 014 PROBNP 6,330* IMAGIN06/01/24 ECHO: Interpretation Summary -Left ventricle is of normal [...] appears not significantly changed between the studies. ASSESSMENT: Oksana Betancourt is 58 y.o. with PMH of hodgkin lymphoma about 35 years ago and treated with radiation therapy, NSTEMI in November 2023 who is currently on Plavix and took aspirin for 1 month. She is also on Eliquis. She has a history of triple-vessel CAD status post staged PCI in [place] in March 2022with CRIS x 1 to mid RCA, CRIS x 2 to ostial RCA, CRIS x 1 to ostial left circumflex and CRIS x 1 to mid left circumflex, severe aortic stenosis status post TAVR in 2021, baseline LBBB, hyperlipidemia and hypertension, CKD stage IIIb, bipolar disorder, COPD and hypothyroidism with most recent NSTEMI. She underwent left heart cath on 11/28/2023 demonstrating high-grade lesion in the proximal RCA in-stent stenosis, distal left main and ostial LAD. A CRIS was placed in the RCA. At outside hospital her LVEF was 10 to 15% on bedside TTE. Echocardiogram showing LVEF 44% and segmental wall motion abnormality which are in the RCA distribution. No thrombus. She was eventually diagnosed with cT1c N1mic Mx left breast cancer, triple negative and started on neoadjuvant carboplatin/docetaxel and Pembrolizumab (Cycle 4, Day 1 on 05/29/24). During her infusion, the patient complained of abrupt onset chest pain and shortness of breath. She was transferred to the ED. Where concern for acute heart failure exacerbation vs. Acute NSTEMI thus transferred to [facility] for cardiology. Patient had ECHO prior to initiation of systemic treatment. In 6.5% of patients, fluid retention can occur with docetaxel. Carboplatin is not commonly known for causing cardiotoxicity. Possible that patient had cardiac toxicity due to her systemic treatment, but with her extensive cardiac history, more likely that primary cardiologic in nature. Would continue cardiac workup for now. Will hold offon additional chemotherapy at this and discuss surgical intervention in regards to her breast cancer followed by adjuvant systemic treatment once patient is discharged in the outpatient setting. PLAN: -primary medical care per cardiology -will hold off on additional chemotherapy at this time -after discharge will pursue surgical intervention followed by adjuvant systemic treatment in the outpatient setting Thank you for the consult. Patient's case was discussed with my Oncology attending Dr. Eboni MD. Please refer to attending attestation for additional information. Oncology will continue to follow. Please call with any questions or concerns. Skylar Auguste MD Hematology/Medical Oncology Fellow Page # [phone] 06/01/24, 8:51 AM Associated attestation - Soo Lyn MD - 06/03/2024 3:26 PM EDT I have seen the patient in person and reviewed the resident's above history and I agree with the details as written. The assessment and plan were formulated in discussion with me and I agree with them as documented. Patient seen and examined. Overall clinical presentation suggestive of possible NSTEMI resulting inflash pulmonary edema requiring non-invasive ventilatory support and diuresis. Currently being managed by cardiology. On physical exam, she had great clinical response to breast cancer. I am unable to palpate the mass. She is veyr high risk from cardiac standpoint. I do not think it iwll be safe torechallange with chemotherapy in NAC settings. I discussed with Dr. Fulton and likely will proceed with surgery. Will d/w cardiology when safe to hold DAPT and for how long. Will also have her see as she may be candidate of adjuvant Capecitabine if residual disease. I reviewed this patientthe patient and she is in agreement. David Lyn MD, MS Medical Oncology [facility] Page # [phone] 06/03/24, 3:26 PM * Plan of Care - Leidy Nuñez RN - 06/01/2024 2:56 AM EDT Problem: Adult Inpatient Plan of [...] Outcome: Ongoing (Interventions Implemented as Appropriate) Problem: Fluid Volume Excess Goal: Fluid Balance Outcome: Ongoing (Interventions Implemented as Appropriate) documented in this encounter Plan of Treatment Upcoming Encounters Date Type Department Care Team (Latest Contact Info) Description 07/30/2024 8:40 AM EST Hospital [place] [address] Jr Fulton MD [facility] [place] [place] [address] 07/30/2024 8:45 AM EST [place] [address] Jr Fulton MD [facility] [place] [address] 07/30/2024 9:20 AM EST Hospital Encounter Mammography at [address] Jr Fulton MD [facility] [place] [address] 07/30/2024 10:51 AM EST Hospital Encounter Out[facility] [place] [phone] Jr Fulton MD [facility] [place] [address] 07/30/2024 10:51 AM EST Anesthesia Event Out[facility] [place] [address] Megan Orona [place] [address] 07/30/2024 10:51 AM EST - 07/30/2024 1:11 PM EST Surgery [facility] [place] [phone] Jr Fulton MD [facility] [place] [address] MASTECTOMY PARTIAL (WRVU 10.13) 08/22/2024 2:00 PM EST Office Visit General Surgery at [address] Cindy Pierce APRN [facility] GENERAL SURGERY [place] [phone] 08/22/2024 3:00 PM EST Office Visit [place] [address] Soo Lyn MD [facility] [place] [address] 08/27/2024 9:30 AM EST Scheduled View Only Radiation Oncology at [address] [phone] Rad Nurse, [facility] 08/27/2024 10:00 AM EST Office Visit Radiation Oncology at [address] [phone] Paradise Prado MD [facility] [place] [address] 2024 1:00 PM EDT Office Visit Cardiology at [address] [place] [phone] Ham Montenegro MD [facility] [place] [address] Scheduled Procedures Name Priority Associated Diagnoses Date/Ti [...] Priority Associated Diagnoses Order Schedule Referral to Cardiology Outpatient Referral Routine NSTEMI (non-ST elevated myocardial infarction) Ordered: 06/04/2024 Referral to Home Health Outpatient Referral Routine NSTEMI (non-ST elevated myocardial infarction) Malignant neoplasm of upper-outer quadrant of left breast in female, estrogen receptor negative Ordered: 06/05/2024 documented as of this encounter Procedures Procedure Name Priority Date/Time Associated Diagnosis Comments CBC (WITH DIFF) Routine 06/05/2024 2:10 AM EDT MAGNESIUM Routine 06/05/2024 2:10 AM EDT BASIC METABOLIC PANEL Routine 06/05/2024 2:10 AM EDT CBC (WITH DIFF) Routine 06/04/2024 9:38 AM EDT PRO-BRAIN NATRIURETIC PEPTIDE Routine 06/04/2024 9:38 AM EDT MAGNESIUM Routine 06/04/2024 9:38 AM EDT BASIC METABOLIC PANEL Routine 06/04/2024 9:38 AM EDT EKG 12-LEAD Routine 06/02/2024 4:08 PM EDT Acute on chronic systolic and diastolic heart failure, NYHA class 2 HEPARIN (UNFRACTIONATED) LEVEL Timed 06/02/2024 8:24 AM EDT CBC (WITH DIFF) Routine 06/02/2024 1:26 AM EDT BASIC METABOLIC PANEL Routine 06/02/2024 1:26 AM EDT HEPARIN (UNFRACTIONATED) LEVEL Timed 06/02/2024 1:25 AM EDT HEPARIN (UNFRACTIONATED) LEVEL Timed 06/01/2024 5:13 PM EDT TROPONIN - SINGLE STAT 06/01/2024 11: 25 AM EDT HEPARIN (UNFRACTIONATED) LEVEL Timed 06/01/2024 11:25 AM EDT ECHO LMTD W CONTRAST W LMTD SPEC DOPP COLOR DOPP Routine 06/01/2024 9:06 AM EDT Acute on chronic systolic and diastolic heart failure, NYHA class 2 URINALYSIS MICROSCOPIC WITH REFLEX TO CULTURE Routine 06/01/2024 4:11 AM EDT URINALYSIS WITH REFLEX CULTURE Routine 06/01/2024 4:11 AM EDT URINE CULTURE Routine 06/01/2024 4:11 AM EDT TROPONIN - SINGLE STAT 06/01/2024 1:4 4 AM EDT PROTHROMBIN TIME Routine 06/01/2024 1:44 AM EDT CBC (WITH DIFF) Routine 06/01/2024 1:44 AM EDT TSH Routine 06/01/2024 1:44 AM EDT PRO-BRAIN NATRIURETIC PEPTIDE Routine 06/01/2024 1:44 AM EDT HEPATIC FUNCTION PANEL Routine 06/01/2024 1:44 AM EDT LIPID PANEL (REFLEX DIRECT LDL) Routine 06/01/2024 1:44 AM EDT BASIC METABOLIC PANEL Routine 06/01/2024 1:44 AM EDT XR CHEST ONE VIEW STAT 06/01/2024 1:3 6 AM EDT EKG 12-LEAD STAT 06/01/2024 12:47 AM EDT Acute on chronic systolic and diastolic heart failure, NYHA class 2 POC, GLUCOSE Routine 05/31/2024 11:57 PM EDT documented in this encounter Results * (ABNORMAL) CBC (with Diff) (06/05/2024 2:10 AM EDT) White Blood Cell 3.57(L) 4.00 - 9.50 x10(3)/mc L 06/05/2024 2:26 AM EDT [facility] Red Blood Cell 2.89(L) 4.00 - 5.21 x10(6)/mc L 06/05/2024 2:26 AM [facility] Hemoglobin 9.0(L) 11.7 - 15.5 g/dL 06/05/2024 2:26 AM [facility] Hematocrit 27.7(L) 35.7 - 45.8 % 06/05/2024 2:26 AM [facility] Mean Cell Volume 95.8(H) 82.6 - 94.4 fL 06/05/2024 2:26 AM [facility] Mean Cell Hemoglobin 31.1 27.1 - 32.0 pg 06/05/2024 2:26 AM [facility] Mean Cell Hemoglobin Concentration 32.5 31.7 - 35.0 g/dL 06/05/2024 2:26 AM [facility] Platelet 686(H) 145 - 357 x10(3)/mc L 06/05/2024 2:26 AM [facility] Mean Platelet Volume 12.7 7.6 - 12.9 fL 06/05/2024 2:26 AM [facility] RDW Standard Deviation 66.4(H) 37.0 - 46.0 fL 06/05/2024 2:26 AM [facility] RDW coefficient of variation 19.4(H) 11.5 - 14.1 % 06/05/2024 2:26 AM [facility] NRBC% auto 0.0 % 06/05/2024 2:26 AM [facility] NRBC Absolute 0.00 0.00 - 0.00 x10(3)/mc L 06/05/2024 2:26 AM [facility] Neutrophil % 32.4 % 06/05/2024 2:26 AM [facility] Neutrophil Absolute (ANC) - Automated 1.16(L) 1.70 - 6.10 x10(3)/mc L 06/05/2024 2:26 AM [facility] Lymph % 51.3 % 06/05/2024 2:26 AM [facility] Lymph Absolute 1.83 0.90 - 3.20 x10(3)/mc L 06/05/2024 2:26 AM [facility] Monocyte % 8.4 % 06/05/2024 2:26 AM [facility] Monocyte Absolute 0.30 0.30 - 0.90 x10(3)/mc L 06/05/2024 2:26 AM [facility] Eos % 4.8 % 06/05/2024 2:26 AM [facility] Eos Absolute 0.17 0.00 - 0.40 x10(3)/mc L 06/05/2024 2:26 AM [facility] Basophil % 1.4 % 06/05/2024 2:26 AM [facility] Baso Absolute 0.05 0.00 - 0.10 x10(3)/mc L 06/05/2024 2:26 AM [facility] Immature Gran % 1.7 % 2:26 AM [facility] Immature Gran Absolute 0.06(H) 0.00 - 0.04 x10(3)/mc L 06/05/2024 2:26 AM [facility] Blood VENOUS BLOOD SPECIMEN / Unknown IP Care Team Draw / Unknown 06/05/2024 2:10 AM EDT 06/05/2024 2:17 AM EDT Arlin Jackson MD HEMATOLOGY ORDERAB LES [facility] [place] [address] * (ABNORMAL) Basic Metabolic Panel (06/05/2024 2:10 AM EDT) Glucose 106 65 - 199 mg/dL 06/05/2024 2:50 AM EDT [facility] Comment:Glucose Concentratio n >=200 mg/dL plus symptoms is consistent with Diabetes Mellitus. Blood Urea Nitrogen 30(H) 8 - 18 mg/dL 06/05/2024 2:50 AM EDT [facility] Creatinine 1.77(H) 0.70 - 1.20 mg/dL 06/05/2024 2:50 AM EDT [facility] Sodium 140 135 - 145 mMol/L 06/05/2024 2:50 [facility] Potassium 3.9 3.5 - 5.0 mMol/L 06/05/2024 2:50 AM EDT [facility] Chloride 99 98 - 107 mMol/L 06/05/2024 2:50 AM [facility] Carbon Dioxide 27 22 - 31 mMol/L 06/05/2024 2:50 AM EDT [facility] Anion Gap 14 5 - 15 mMol/L 06/05/2024 2:50 AM EDT [facility] Calcium 9.5 8.5 - 10.5 mg/dL 06/05/2024 2:50 AM EDT [facility] Est Glomerular Filtration Rate - Female 33 mL/min/1. 73 m?? 06/05/2024 2:50 AM EDT [facility] Comment: This patient's estimated GFR [...] MD CHEMISTRY ORDERABL ES Performing Organization Address City/[facility]/ZIP Co de Phone Number [facility] [place] [address] * Magnesium (06/05/2024 2:10 AM EDT) Magnesium 0.87 0.69 - 1.07 mMol/L 06/05/2024 2:50 AM EDT [facility] Blood VENOUS BLOOD SPECIMEN / Unknown IP Care Team Draw / Unknown 06/05/2024 2:10 AM EDT 06/05/2024 2:17 AM EDT Arlin Jackson MD CHEMISTRY ORDERABL ES Performing Organization Address City/[facility]/ZIP Co de Phone Number [facility] [place] [address] * (ABNORMAL) CBC (with Diff) (06/04/2024 9:38 AM EDT) White Blood Cell 4.21 4.00 - 9.50 x10(3)/mc L 06/04/2024 10:19 AM EDT [facility] Red Blood Cell 2.77(L) 4.00 - 5.21 x10(6)/mc L 06/04/2024 10:19 AM EDT [facility] Hemoglobin 8.6(L) 11.7 - 15.5 g/dL 06/04/2024 10:19 AM [facility] Hematocrit 26.1(L) 35.7 - 45.8 % 06/04/2024 10:19 AM [facility] Mean Cell Volume 94.2 82.6 - 94.4 fL 06/04/2024 10:19 AM [facility] Mean Cell Hemoglobin 31.0 27.1 - 32.0 pg 06/04/2024 10:19 AM [facility] Mean Cell Hemoglobin Concentration 33.0 31.7 - 35.0 g/dL 06/04/2024 10:19 AM [facility] Platelet 640(H) 145 - 357 x10(3)/mc L 06/04/2024 10:19 AM [facility] Mean Platelet Volume 13.0(H) 7.6 - 12.9 fL 06/04/2024 10:19 AM [facility] RDW Standard Deviation 64.8(H) 37.0 - 46.0 fL 06/04/2024 10:19 AM [facility] RDW coefficient of variation 18.8(H) 11.5 - 14.1 % 06/04/2024 10:19 AM [facility] NRBC% auto 0.0 % 06/04/2024 10:19 AM [facility] NRBC Absolute 0.00 0.00 - 0.00 x10(3)/mc L 06/04/2024 10:19 AM [facility] Neutrophil % 46.3 % 06/04/2024 10:19 AM [facility] Neutrophil Absolute (ANC) - Automated 1.95 1.70 - 6.10 x10(3)/mc L 06/04/2024 10:19 AM [facility] Lymph % 40.9 % 06/04/2024 10:19 AM [facility] Lymph Absolute 1.72 0.90 - 3.20 x10(3)/mc L 06/04/2024 10:19 AM [facility] Monocyte % 5.2 % 06/04/2024 10:19 AM EDT [facility] Monocyte Absolute 0.22(L) 0.30 - 0.90 x10(3)/mc L 06/04/2024 10:19 AM EDT [facility] Eos % 3.8 % 06/04/2024 10:19 AM EDT [facility] Eos Absolute 0.16 0.00 - 0.40 x10(3)/mc L 06/04/2024 10:19 AM EDT [facility] Basophil % 1.9 % 06/04/2024 10:19 AM EDT [facility] Baso Absolute 0.08 0.00 - 0.10 x10(3)/mc L 06/04/2024 10:19 AM EDT [facility] Immature Gran % 1.9 % 10:19 AM EDT [facility] Immature Gran Absolute 0.08(H) 0.00 - 0.04 x10(3)/mc L 06/04/2024 10:19 AM EDT [facility] Blood VENOUS BLOOD SPECIMEN / Unknown IP Care Team Draw / Unknown 06/04/2024 9:38 AM EDT 06/04/2024 9:55 AM EDT Arlin Jackson MD HEMATOLOGY ORDERAB LES [facility] [place] [address] * (ABNORMAL) pro-Brain Natriuretic Peptide (06/04/2024 9:38 AM EDT) NT-proBNP 2,189(H) <=124 pg/mL 06/04/2024 10:34 AM EDT [facility] Blood VENOUS BLOOD SPECIMEN / Unknown IP Care Team Draw / Unknown 06/04/2024 9:38 AM EDT 06/04/2024 9:55 AM EDT Arlin Jackson MD CHEMISTRY ORDERABL ES [facility] [place] [address] * (ABNORMAL) Basic Metabolic Panel (06/04/2024 9:38 AM EDT) Glucose 135 65 - 199 mg/dL 06/04/2024 11:16 AM [facility] Comment:Glucose Concentratio n >=200 mg/dL plus symptoms is consistent with Diabetes Mellitus. Blood Urea Nitrogen 30(H) 8 - 18 mg/dL 06/04/2024 11:16 AM [facility] Creatinine 1.51(H) 0.70 - 1.20 mg/dL 06/04/2024 11:16 AM [facility] Sodium 139 135 - 145 mMol/L 06/04/2024 11:16 AM [facility] Potassium 3.7 3.5 - 5.0 mMol/L 06/04/2024 11:16 AM [facility] Chloride 98 98 - 107 mMol/L 06/04/2024 11:16 AM [facility] Carbon Dioxide 27 22 - 31 mMol/L 06/04/2024 11:16 AM [facility] Anion Gap 14 5 - 15 mMol/L 06/04/2024 11:16 AM [facility] Calcium 9.4 8.5 - 10.5 mg/dL 06/04/2024 11:16 AM [facility] Est Glomerular Filtration Rate - Female 39 mL/min/1. 73 m?? 06/04/2024 11:16 AM [facility] Comment: This patient's estimated GFR [...] MD CHEMISTRY ORDERABL ES Performing Organization Address [facility] Co de Phone Number [facility] [place] [address] * Magnesium (06/04/2024 9:38 AM EDT) Magnesium 0.88 0.69 - 1.07 mMol/L 06/04/2024 10:34 AM EDT [facility] Blood VENOUS BLOOD SPECIMEN / Unknown IP Care Team Draw / Unknown 06/04/2024 9:38 AM EDT 06/04/2024 9:55 AM EDT Arlin Jackson MD CHEMISTRY ORDERABL ES Performing Organization Address [facility] Co de Phone Number [facility] [place] [address] * EKG 12 Lead (06/02/2024 4:08 PM EDT) Ventricular rate 112 BPM MUSE SYSTEM Atrial Rate 112 BPM MUSE SYSTEM P-R Interval 126 ms MUSE SYSTEM QRS Duration 130 ms MUSE SYSTEM Q-T Interval 372 ms MUSE SYSTEM QTC Calculated (Bezet) 507 ms MUSE SYSTEM Calculated P [place] 62 degrees MUSE SYSTEM Calculated R [place] 10 degrees MUSE SYSTEM Calculated T [place] 171 degrees MUSE SYSTEM INTERPRETATION Sinus tachycardia Left bundle branch block Abnormal ECG When compared with ECG of 01-JUN-2024 00:47, No significant change was found Confirmed by MD Alvarenga David ([id number]) on 06/04/2024 6:24:01 AM MUSE SYSTEM 06/02/2024 4:08 PM EDT 06/04/2024 6:24 AM EDT Ady Perkins MD ECG ORDERABLES MUSE SYSTEM * Heparin (unfractionated) Level (06/02/2024 8:24 AM EDT) UF Heparin 0.58 IU/mL 06/02/2024 8:58 AM EDT [facility] Comment: Heparin (anti-Xa) levels should [...] 8:24 AM EDT 06/02/2024 8:33 AM EDT Hma Haque MD HEMATOLOGY ORDERABLE S [facility] [place] [address] * (ABNORMAL) Basic Metabolic Panel (06/02/2024 1:26 AM EDT) Glucose 104 65 - 199 mg/dL 06/02/2024 2:02 AM EDT [facility] Comment:Glucose Concentratio n >=200 mg/dL plus symptoms is consistent with Diabetes Mellitus. Blood Urea Nitrogen 38(H) 8 - 18 mg/dL 06/02/2024 2:02 AM EDT [facility] Creatinine 1.56(H) 0.70 - 1.20 mg/dL 06/02/2024 2:02 AM EDT [facility] Sodium 138 135 - 145 mMol/L 06/02/2024 2:02 AM EDT [facility] Potassium 3.9 3.5 - 5.0 mMol/L 06/02/2024 2:02 AM [facility] Chloride 96(L) 98 - 107 mMol/L 06/02/2024 2:02 AM EDT [facility] Carbon Dioxide 28 22 - 31 mMol/L 06/02/2024 2:[facility] Anion Gap 14 5 - 15 mMol/L 06/02/2024 2:02 AM [facility] Calcium 8.2(L) 8.5 - 10.5 mg/dL 06/02/2024 2:02 AM [facility] Est Glomerular Filtration Rate - Female 38 mL/min/1. 73 m?? 06/02/2024 2:02 AM [facility] Comment: This patient's estimated GFR [...] IP Care Team Draw / Unknown 06/02/2024 1:26 AM EDT 06/02/2024 1:33 AM EDT Ham Haque MD CHEMISTRY ORDERABLES [facility] [place] [address] * (ABNORMAL) CBC (with Diff) (06/02/2024 1:26 AM EDT) [facility] White Blood Cell 9.14 4.00 - 9.50 x10(3)/mc L 06/02/2024 1:38 AM [facility] Red Blood Cell 2.70(L) 4.00 - 5.21 x10(6)/mc L 06/02/2024 1:38 AM [facility] Hemoglobin 8.4(L) 11.7 - 15.5 g/dL 06/02/2024 1:38 AM [facility] Hematocrit 25.4(L) 35.7 - 45.8 % 06/02/2024 1:38 AM [facility] Mean Cell Volume 94.1 82.6 - 94.4 fL 06/02/2024 1:38 AM [facility] Mean Cell Hemoglobin 31.1 27.1 - 32.0 pg 06/02/2024 1:38 AM [facility] Mean Cell Hemoglobin Concentration 33.1 31.7 - 35.0 g/dL 06/02/2024 1:38 AM [facility] Platelet 514(H) 145 - 357 x10(3)/mc L 06/02/2024 1:38 AM [facility] Mean Platelet Volume 12.7 7.6 - 12.9 fL 06/02/2024 1:38 AM [facility] RDW Standard Deviation 66.9(H) 37.0 - 46.0 fL 06/02/2024 1:38 AM [facility] RDW coefficient of variation 19.8(H) 11.5 - 14.1 % 06/02/2024 1:38 AM [facility] NRBC% auto 0.0 % 06/02/2024 1:38 AM [facility] NRBC Absolute 0.00 0.00 - 0.00 x10(3)/mc L 06/02/2024 1:38 AM [facility] Neutrophil % 73.9 % 06/02/2024 1:38 AM EDT [facility] Neutrophil Absolute (ANC) - Automated 6.75(H) 1.70 - 6.10 x10(3)/mc L 06/02/2024 1:38 AM EDT [facility] Lymph % 22.9 % 06/02/2024 1:38 AM EDT [facility] Lymph Absolute 2.09 0.90 - 3.20 x10(3)/mc L 06/02/2024 1:38 AM EDT [facility] Monocyte % 1.2 % 06/02/2024 1:38 AM EDT [facility] Monocyte Absolute 0.11(L) 0.30 - 0.90 x10(3)/mc L 06/02/2024 1:38 AM EDT [facility] Eos % 1.5 % 06/02/2024 1:38 AM EDT [facility] Eos Absolute 0.14 0.00 - 0.40 x10(3)/mc L 06/02/2024 1:38 AM EDT [facility] Basophil % 0.1 % 06/02/2024 1:38 AM EDT [facility] Baso Absolute 0.01 0.00 - 0.10 x10(3)/mc L 06/02/2024 1:38 AM EDT [facility] Immature Gran % 0.4 % 1:38 AM EDT [facility] Immature Gran Absolute 0.04 0.00 - 0.04 x10(3)/mc L 06/02/2024 1:38 AM EDT [facility] Blood VENOUS BLOOD SPECIMEN / Unknown IP Care Team Draw / Unknown 06/02/2024 1:26 AM EDT 06/02/2024 1:33 AM EDT Ham Haque MD HEMATOLOGY ORDERABLE S [facility] [place] [address] * Heparin (unfractionated) Level (06/02/2024 1:25 AM EDT) UF Heparin 0.57 IU/mL 06/02/2024 1:53 AM EDT [facility] Comment: Heparin (anti-Xa) levels should [...] IP Care Team Draw / Unknown 06/02/2024 1:25 AM EDT 06/02/2024 1:33 AM EDT Ham Haque MD HEMATOLOGY ORDERABLE S [facility] [place] [address] * Heparin (unfractionated) Level (06/01/2024 5:13 PM EDT) Pathologist [facility] UF Heparin 0.77 IU/mL 06/01/2024 6:40 PM EDT [facility] Comment: Heparin (anti-Xa) levels should [...] indications in cardiac surgery): ? 0.1-0.3 IU/mL Specimen drawn more than one hour prior to testing. Results may not be reliable for heparin monitoring. Result may be falsely low. Blood VENOUS BLOOD SPECIMEN / Unknown IP Care Team Draw / Unknown 06/01/2024 5:13 PM EDT 06/01/2024 5:24 PM EDT Ham Haque MD HEMATOLOGY ORDERABLE S [facility] [place] [address] * (ABNORMAL) Troponin - Single (06/01/2024 11:25 AM EDT) Troponin-T, High Sensitivity 400(H) <=14 ng/L 06/01/2024 12:04 PM EDT [facility] Comment: This patient's troponin T [...] troponin value can be found in the [facility] Test Catalog Troponin - https://one-.testcatalog.org/catalogs/565/files/81548 Reference: Fourth [place] Definition of Myocardial Infarction. Journal of the [place] [employer] 2018;72:4971-1867 Blood VENOUS BLOOD SPECIMEN / Unknown IP Care Team Draw / Unknown 06/01/2024 11:25 AM EDT 06/01/2024 11:32 AM EDT Ady Perkins MD CHEMISTRY ORDERABLES Performing Organization Address City/[facility]/ZIP Co de Phone Number [facility] [place] [address] * Heparin (unfractionated) Level (06/01/2024 11:25 AM EDT) UF Heparin 0.71 IU/mL 06/01/2024 11:42 AM EDT [facility] Comment: Heparin (anti-Xa) levels should [...] 11:25 AM EDT 06/01/2024 11:32 AM EDT Ham Haque MD HEMATOLOGY ORDERABLE S Performing Organization Address City/[facility]/ZIP Co de Phone Number [facility] [place] [address] * ECHO LMTD W CONTRAST W LMTD SPEC DOPP COLOR DOPP (06/01/2024 9:06 AM EDT) EF 57 HEARTLAB SYSTEM Anatomical Region Laterality Modality Cardiac Other 06/01/2024 7:13 AM EDT Narrative 06/01/2024 11:08 AM EDT [address] [place] [address] ? Echocardiogram Report Name: ALICETHOMASOLU OKSANA Antoine ? Study Date: 06/01/2024 07:13 AMBP: 128/59 mmHg ? Patient Location: ^489^A : 1965 ? Height: 165 cm ? Account: [id number] Age: 58 yrs ? Weight: 98 kg Gender: Female ?BSA: 2.0 m2 Ordering Physician: HAM HAQUE Referring Physician: MICHAEL ABEL Performed By: VICKY Anderson Reason For Study: Acute on Chronic systolic and diastolic heart failure Interpreting Fellow: Ambrose Rodriguez. Exam Location: [facility]. Interpretation Summary -Left ventricle is of normal [...] changed between the studies. Procedure Limited - 61446. Color Doppler - 06468. Doppler - 70288. Image enhancement Optison was used for left [...] Note Ham Montenegro MD - 06/01/2024 [address] [place] [address] Echocardiogram Report Name: OKSANA BETANCOURT Study Date: 407:13 AMBP: 128/59 mmHg Patient Location:^489^A : 1965 Height: 165 cm Account: [id number] Age: 58 yrs Weight: 98 kg Gender: Female BSA: 2.0 m2 Ordering Physician: HAM HAQUE Referring Physician: MICHAEL ABEL Performed By: VICKY Anderson Reason For Study: Acute on Chronic systolic and diastolic heart failure Interpreting Fellow: Ambrose Rodriguez. Exam Location: [facility]. Interpretation Summary -Left ventricle is of normal [...] significantly changed between thestudies. Procedure Limited - 46238. Color Doppler - 54383. Doppler - 24935. Image enhancementOptison was used for left ventricular [...] 15-16diffuse Ham Haque MD ECHO ORDERABLES * Urine culture (06/01/2024 4:11 AM EDT) Urine Culture 1,000-9,000 cfu/ml Insignificant growth 06/02/2024 1:24 PM EDT [facility] Urine URINE SPECIMEN OBTAINED BY CLEAN CATCH PROCEDURE / Unknown Non Blood Collection / Unknown 06/01/2024 4:11 AM EDT 06/01/2024 4:16 AM EDT Ham Haque MD MICROBIOLOGY - GENER AL ORDERABLES [facility] [place] [address] * (ABNORMAL) Urinalysis Microscopic with Reflex to Culture (06/01/2024 4:11 AM EDT) Bacteria, Urine None None /HPF 5:14 AM EDT [facility] RBC, Urine 0 0 - 4 /HPF 06/01/2024 5:14 AM EDT [facility] WBC, Urine >=100(H) 0 - 5 /HPF 06/01/2024 5:14 AM EDT [facility] Comment:CONFIRMED ON MICROSC OPE Squamous Epithelial Cells, Urine 0 0 - 5 /HPF 06/01/2024 5:14 AM EDT [facility] Hyaline Casts, Urine 4(H) 0 - 2 /LPF 06/01/2024 5:14 AM EDT [facility] CULTURE ADDED? Yes 06/01/2024 5:[facility] Urine URINE SPECIMEN OBTAINED BY CLEAN CATCH PROCEDURE / Unknown Non Blood Collection / Unknown 06/01/2024 4:11 AM EDT 06/01/2024 4:16 AM EDT Ham Haque MD URINE ORDERABLES [facility] [place] [address] * (ABNORMAL) Urinalysis with reflex Culture (06/01/2024 4:11 AM EDT) Glucose, Urine Dipstick Negative Negative 06/01/2024 5:14 AM EDT [facility] Protein, Urine Dipstick Negative Negative 06/01/2024 5:14 AM EDT [facility] Bilirubin, Urine Dipstick Negative Negative 06/01/2024 5:14 AM EDT [facility] Comment:Clinical correlation required for positive Urine Bilirubin results as false positive may occur with some drugs and drug related products. If a false positive is suspected a serum total bilirubin should be considered if clinically indicated. Urobilinogen, Urine Dipstick Normal Normal, 0.2 mg/dL, 1.0 mg/dL 06/01/2024 5:14 AM EDT [facility] pH, Urine (dipstick) 7.0 5.0 - 8.0 06/01/2024 5:14 AM EDT [facility] Blood, Urine Dipstick Negative Negative 06/01/2024 5:14 AM EDT [facility] Ketone, Urine Dipstick Negative Negative 06/01/2024 5:14 AM EDT [facility] Nitrite, Urine Dipstick Negative Negative 06/01/2024 5:14 AM EDT [facility] Leukocytes, Urine Dipstick Large(A) Negative 06/01/2024 5:14 AM [facility] Specific [place] Urine Automated 1.010 1.005 - 1.030 06/01/2024 5:14 AM [facility] Appearance, Urine Dipstick Clear Clear 06/01/2024 5:14 AM [facility] Color, Urine Dipstick Yellow Yellow, Dark Yellow 06/01/2024 5:14 AM [facility] CULTURE ADDED? Yes 06/01/2024 5:14 AM [facility] Urine URINE SPECIMEN OBTAINED BY CLEAN CATCH PROCEDURE / Unknown Non Blood Collection / Unknown 06/01/2024 4:11 AM EDT 06/01/2024 4:16 AM EDT Ham Haque MD URINE ORDERABLES Performing Organization Address City/State/[facility] Co de Phone Number [facility] [place] [address] * (ABNORMAL) Troponin - Single (06/01/2024 1:44 AM EDT) Troponin-T, High Sensitivity 318(H) <=14 ng/L 06/01/2024 2:33 AM EDT [facility] Comment: This patient's troponin T [...] troponin value can be found in the [facility] Test Catalog Troponin - https://one-.testcatalog.org/catalogs/565/files/22657 Reference: [place] Definition of Myocardial Infarction. Journal of the [place] [employer] 2018;72:1996-6810 Blood VENOUS BLOOD SPECIMEN / Unknown IP Care Team Draw / Unknown 06/01/2024 1:44 AM EDT 06/01/2024 1:56 AM EDT Ham Haque MD CHEMISTRY ORDERABLES [facility] [place] [address] * Lipid Panel (Reflex Direct LDL) (06/01/2024 1:44 AM EDT) Cholesterol, Total 158 mg/dL 06/01/2024 2:33 AM EDT [facility] Comment: Desirable: < 200 mg/dL Borderline High: 200 - 239 mg/dL High: > or = 240 mg/dL Triglyceride 208 mg/dL 06/01/2024 2:33 AM EDT [facility] Comment: Normal: <150 mg/dL Borderline High: 150-199 mg/dL High: 200-499 mg/dL Very High: > or =500 mg/dL HDL Cholesterol 42 mg/dL 4 2:33 AM EDT [facility] Comment:Female: High Risk: < 50 mg/dL LDL Cholesterol 81 mg/dL 2:33 AM EDT [facility] Comment: Desirable: <100 mg/dL Above Desirable: 100-129 mg/dL Borderline High: 130-159 mg/dL High: 160-189 mg/dL Very High: > or =190 mg/dL Note: LDL calculation updated to the NIH LDL formula as of 04/22/2024 Non-HDL Cholesterol 116 mg/dL 06/01/2024 2:33 AM EDT [facility] Comment: Desirable: <130 mg/dL Above Desirable: 130-159 mg/dL Borderline High: 160-189 mg/dL High: 190-219 mg/dL Very High: > or = 220 mg/dL Blood VENOUS BLOOD SPECIMEN / Unknown IP Care Team Draw / Unknown 06/01/2024 1:44 AM EDT 06/01/2024 1:56 AM EDT [facility] - 06/01/2024 2:33 AM EDT It [...] ACC/AHA Guidelines (most recently Lay et al. [facility] 06/22/22): * For individuals with atherosclerotic cardiovascular [...] artery disease) Ham Haque MD CHEMISTRY ORDERABLES [facility] [place] [address] * Prothrombin Time (06/01/2024 1:44 AM EDT) Prothrombin Time 10.1 9.4 - 12.5 sec 06/01/2024 2:59 AM EDT [facility] International Normalization Ratio 0.9 <=4.9 06/01/2024 2:59 AM EDT [facility] Comment: An INR < 2.0 [...] 06/01/2024 1:56 AM EDT Ham Haque MD HEMATOLOGY ORDERABLE S Performing Organization Address [facility] Co de Phone Number [facility] [place] [address] * (ABNORMAL) Hepatic Function Panel (06/01/2024 1:44 AM EDT) Pathologist [facility] Albumin 3.8 3.2 - 5.2 g/dL 06/01/2024 2:33 AM EDT [facility] Aspartate Aminotransferase 31(H) <=30 unit/L 06/01/2024 2:33 AM EDT [facility] Alanine Aminotransferase 24 0 - 30 unit/L 06/01/2024 2:33 AM EDT [facility] Alkaline Phosphatase 542(H) 35 - 105 unit/L 06/01/2024 2:33 AM EDT [facility] Bilirubin, Total 0.2 <=1.3 mg/dL 06/01/2024 2:33 AM EDT [facility] Bilirubin, Direct <0.2 0.0 - 0.3 mg/dL 06/01/2024 2:33 AM EDT [facility] Protein, Total 7.1 6.1 - 8.0 g/dL 06/01/2024 2:33 AM EDT [facility] Blood VENOUS BLOOD SPECIMEN / Unknown IP Care Team Draw / Unknown 06/01/2024 1:44 AM EDT 06/01/2024 1:56 AM EDT Ham Haque MD CHEMISTRY ORDERABLES Performing Organization Address City/[facility]/ZIP Co de Phone Number [facility] [place] [address] * TSH (06/01/2024 1:44 AM EDT) Thyroid Stimulating Hormone 0.60 0.27 - 4.20 mcIU/mL 06/01/2024 2:33 AM EDT [facility] Comment: Reference Interval (mcIU/mL): ?? Females: ? First Trimester: 0.23-3.88 ? Second Trimester: 0.22-3.90 ? Third Trimester: 0.44-4.66 Blood VENOUS BLOOD SPECIMEN / Unknown IP Care Team Draw / Unknown 06/01/2024 1:44 AM EDT 06/01/2024 1:56 AM EDT Ham Haque MD CHEMISTRY ORDERABLES Performing Organization Address City/[facility]/ZIP Co de Phone Number [facility] [place] [address] * (ABNORMAL) pro-Brain Natriuretic Peptide (06/01/2024 1:44 AM EDT) NT-proBNP 6,330(H) <=124 pg/mL 06/01/2024 2:33 AM EDT [facility] Blood VENOUS BLOOD SPECIMEN / Unknown IP Care Team Draw / Unknown 06/01/2024 1:44 AM EDT 06/01/2024 1:56 AM EDT Ham Haque MD CHEMISTRY ORDERABLES Performing Organization Address City/[facility]/ZIP Co de Phone Number [facility] [place] [address] * (ABNORMAL) Basic Metabolic Panel (06/01/2024 1:44 AM EDT) Glucose 126 65 - 199 mg/dL 06/01/2024 2:33 AM EDT [facility] Comment:Glucose Concentratio n >=200 mg/dL plus symptoms is consistent with Diabetes Mellitus. Blood Urea Nitrogen 39(H) 8 - 18 mg/dL 06/01/2024 2:33 AM EDT [facility] Creatinine 1.69(H) 0.70 - 1.20 mg/dL 06/01/2024 2:33 AM EDT [facility] Sodium 142 135 - 145 mMol/L 06/01/2024 2:33 AM EDT [facility] Potassium 3.9 3.5 - 5.0 mMol/L 06/01/2024 2:33 AM EDT [facility] Chloride 97(L) 98 - 107 mMol/L 06/01/2024 2:33 AM EDT [facility] Carbon Dioxide 28 22 - 31 mMol/L 06/01/2024 2:33 AM EDT [facility] Anion Gap 17(H) 5 - 15 mMol/L 06/01/2024 2:33 AM EDT [facility] Calcium 8.5 8.5 - 10.5 mg/dL 06/01/2024 2:33 AM EDT [facility] Est Glomerular Filtration Rate - Female 34 mL/min/1. 73 m?? 06/01/2024 2:33 AM EDT [facility] Comment: This patient's estimated GFR [...] AM EDT Ham Haque MD CHEMISTRY ORDERABLES [facility] [place] [address] * (ABNORMAL) CBC (with Diff) (06/01/2024 1:44 AM EDT) White Blood Cell 8.81 4.00 - 9.50 x10(3)/mc L 06/01/2024 2:34 AM EDT [facility] Red Blood Cell 2.66(L) 4.00 - 5.21 x10(6)/mc L 06/01/2024 2:34 AM [facility] Hemoglobin 8.3(L) 11.7 - 15.5 g/dL 06/01/2024 2:34 AM [facility] Hematocrit 25.5(L) 35.7 - 45.8 % 06/01/2024 2:34 AM [facility] Mean Cell Volume 95.9(H) 82.6 - 94.4 fL 06/01/2024 2:34 AM [facility] Mean Cell Hemoglobin 31.2 27.1 - 32.0 pg 06/01/2024 2:34 AM [facility] Mean Cell Hemoglobin Concentration 32.5 31.7 - 35.0 g/dL 06/01/2024 2:34 AM [facility] Platelet 523(H) 145 - 357 x10(3)/mc L 06/01/2024 2:34 AM [facility] Mean Platelet Volume 12.8 7.6 - 12.9 fL 06/01/2024 2:34 AM [facility] RDW Standard Deviation 67.8(H) 37.0 - 46.0 fL 06/01/2024 2:34 AM [facility] RDW coefficient of variation 19.9(H) 11.5 - 14.1 % 06/01/2024 2:34 AM [facility] NRBC% auto 0.0 % 06/01/2024 2:34 AM [facility] NRBC Absolute 0.00 0.00 - 0.00 x10(3)/mc L 06/01/2024 2:34 AM [facility] Neutrophil % 85.3 % 06/01/2024 2:34 AM [facility] Neutrophil Absolute (ANC) - Automated 7.52(H) 1.70 - 6.10 x10(3)/mc L 06/01/2024 2:34 AM [facility] Lymph % 12.3 % 06/01/2024 2:34 AM EDT [facility] Lymph Absolute 1.08 0.90 - 3.20 x10(3)/mc L 06/01/2024 2:34 AM EDT [facility] Monocyte % 1.7 % 06/01/2024 2:34 AM EDT [facility] Monocyte Absolute 0.15(L) 0.30 - 0.90 x10(3)/mc L 06/01/2024 2:34 AM EDT [facility] Eos % 0.2 % 06/01/2024 2:34 AM EDT [facility] Eos Absolute 0.02 0.00 - 0.40 x10(3)/mc L 06/01/2024 2:34 AM EDT [facility] Basophil % 0.0 % 06/01/2024 2:34 AM EDT [facility] Baso Absolute 0.00 0.00 - 0.10 x10(3)/mc L 06/01/2024 2:34 AM EDT [facility] Immature Gran % 0.5 % 2:34 AM EDT [facility] Immature Gran Absolute 0.04 0.00 - 0.04 x10(3)/mc L 06/01/2024 2:34 AM EDT [facility] Blood VENOUS BLOOD SPECIMEN / Unknown IP Care Team Draw / Unknown 06/01/2024 1:44 AM EDT 06/01/2024 1:56 AM EDT Ham Haque MD HEMATOLOGY ORDERABLE S [facility] [place] [address] * XR Chest One View (06/01/2024 1:36 AM EDT) WORKSTATION ID [id number] DH RAD Anatomical Region Laterality Modality Chest N/A Digital Radiogra phy Impressions 06/01/2024 2:22 AM EDT No acute finding. Thank you for letting us participate in the care of this patient. ??If you are a health care provider and have any questions regarding this report, please contact the number below. ??For patients who have questions please contact the health daycare provider that requested your imaging first. ? Narrative [...] patients who have questions please contactthe health daycare provider that requested your imaging first. Ham Haque MD IMG DX ORDERABLES * EKG 12 Lead (06/01/2024 12:47 AM EDT) Ventricular rate 89 BPM MUSE SYSTEM Atrial Rate 89 BPM MUSE SYSTEM P-R Interval 130 ms MUSE SYSTEM QRS Duration 138 ms MUSE SYSTEM Q-T Interval 406 ms MUSE SYSTEM QTC Calculated (Bezet) 493 ms MUSE SYSTEM Calculated [place] 72 degrees MUSE SYSTEM Calculated R [place] 23 degrees MUSE SYSTEM Calculated T [place] 163 degrees MUSE SYSTEM INTERPRETATION Normal sinus rhythm Left bundle branch block T wave inversion in Lateral leads Abnormal ECG When compared with ECG of 02-DEC-2023 12:46, T wave inversion now evident in Lateral leads I personally reviewed the tracing and edited the fellows interpretation Confirmed by fellow Dagoberto Rondon ([id number]) on 06/01/2024 8:33:36 AM Confirmed by MD Francisco, Andrew Bowman ([id number]) on 06/02/2024 9:10:43 AM MUSE SYSTEM 06/01/2024 12:4 7 AM EDT 06/02/2024 9:10 AM EDT Ham Haque MD ECG ORDERABLES MUSE SYSTEM * POC, GLUCOSE (05/31/2024 11:57 PM EDT) Glucometer, POC 128 65 - 199 mg/dL 05/31/2024 11:57 PM EDT [facility] Comment:Supplemental ranges: <140 mg/dL before meals <180 mg/dL all other times of the day. Blood CAPILLARY BLOOD / Unknown 05/31/2024 11:57 PM EDT 05/31/2024 11:57 PM EDT Rogelio Wong MD POINT OF CARE TEST O RDERABLES [facility] [place] [address] documented in this encounter Visit Diagnoses Diagnosis Acute on chronic systolic and diastolic heart failure, NYHA class 2- Primary Acute on chronic combined systolic and diastolic heart failure Acute on chronic systolic and diastolic heart failure, NYHA class 2 Acute on chronic combined systolic and diastolic heart failure NSTEMI (non-ST elevated myocardial infarction) Acute myocardial infarction, subendocardial infarction, episode of care unspecified Malignant neoplasm of upper-outer quadrant of left breast in female, estrogen receptor negative documented in this encounter Admitting Diagnoses Diagnosis Acute on chronic systolic and diastolic heart failure, NYHA class 2 Acute on chronic combined systolic and diastolic heart failure documented in this encounter Administered Medications Inactive Administered Medications - up to 3 most recent administrations Medication Order MAR Action Action Date Dose Rate Site acetaminophen (Tylenol) tablet 650 mg 650 mg, Oral, EVERY 4 HOURS PRN, Starting on Tue06/01/24 at 0005, Until Tue06/05/24 at 1831, Pain, Headaches, Maximum dose of acetaminophen is 4,000 mg from all sources in 24 hours., Routine Given 06/01/2024 11:52 AM EDT 650 mg alum-mag hydroxide-simeth (Maalox) (40 mg-40 mg-4 mg/mL) oral liquid 10 mL 10 mL, Oral, 3 TIMES DAILY PRN, Starting on Tue06/02/24 at 1246, Until Tue06/05/24 at 1831, Heartburn, Routine Given 06/05/2024 12:14 PM EDT 10 mLs Given 06/02/2024 1:50 PM EDT 10 mLs apixaban (Eliquis) tablet 5 mg 5 mg, Oral, 2 TIMES DAILY, First dose on 06/02/24 at 1315, Until Discontinued, Anticoagulant, Routine, apixaban (Eliquis) Indication: Non-Valvular Atrial Fibrillation Given 06/05/2024 9:04 AM EDT 5 mg Given 06/04/2024 8:22 PM EDT 5 mg Given 06/04/2024 9:25 AM EDT 5 mg atorvastatin (Lipitor) tablet 40 mg 40 mg, Oral, DAILY AT NOON, First dose (after last modification) on 06/03/24 at 1200, Until Discontinued, Routine Given 06/05/2024 12:14 PM EDT 40 mg Given 06/04/2024 12:50 PM EDT 40 mg Given 06/03/2024 11:34 AM EDT 40 mg atorvastatin (Lipitor) tablet 80 mg 80 mg, Oral, DAILY AT NOON, First dose on Tue06/01/24 at 1200, Until Discontinued, Routine Given 06/02/2024 1:50 PM EDT 80 mg Given 06/01/2024 11:53 AM EDT 80 mg baclofen (Lioresal) tablet 5 mg 5 mg, Oral, 2 TIMES DAILY, First dose on Tue06/01/24 at 0900, Until Discontinued, Routine Given 06/05/2024 9:05 AM EDT 5 mg Given 06/04/2024 8:22 PM EDT 5 mg Given 06/04/2024 9:25 AM EDT 5 mg cefTRIAXone (Rocephin) 1 g vial attach to sodium chloride 0.9% 50 mL Mini-Bag Plus 1 g, Intravenous, EVERY 24 HOURS, 3 doses, First dose on Tue06/01/24 at 0645, Last dose on Tue06/03/24 at 0645, Administer over 30 Minutes, Indication for (Active or Suspected): Urinary Tract/Pyelonephritis New Bag 06/03/2024 6:17 AM EDT 1 g 10 0 mL/hr New Bag 06/02/2024 5:53 AM EDT 1 g 100 mL/hr New Bag 06/01/2024 6:52 AM EDT 1 g 100 mL/hr clopidogreL (Plavix) tablet 75 mg 75 mg, Oral, DAILY, First dose on Tue06/01/24 at 0900, Until Discontinued, Routine Given 06/05/2024 9:05 AM EDT 75 mg Given 06/04/2024 9:25 AM EDT 75 mg Given 06/03/2024 8:28 AM EDT 75 mg furosemide (Lasix) (10 mg/mL) injection 20 mg 20 mg, Intravenous, DAILY, First dose (after last modification) on Tue06/01/24 at 1345, Until Discontinued Given 06/02/2024 9:31 AM EDT 20 mg Given 06/01/2024 2:13 PM EDT 20 mg furosemide (Lasix) (10 mg/mL) injection 40 mg 40 mg, Intravenous, DAILY, First dose (after last modification) on Tue06/03/24 at 0900, Until Discontinued Given 06/03/2024 8:29 AM EDT 40 mg furosemide (Lasix) (10 mg/mL) injection 80 mg 80 mg, Intravenous, 2 TIMES DAILY, 2 doses, First dose on Tue06/01/24 at 0015, Last dose on Tue06/01/24 at 0900 Given 06/01/2024 12:34 AM EDT 80 mg heparin (pf) (porcine) (100 units/mL) flush 5 mL syringe 500 Units 500 Units (5 mL), Intravenous, DAILY PRN, 1 dose, Starting on Tue06/05/24 at 1531, Until Tue06/05/24 at 1602, Line Care, Terminal Flush for de-accessing of Implantable Port, Routine Given 06/05/2024 4:02 PM EDT 500 Units heparin (porcine) 50 units/mL in dextrose 5% 500 mL infusion 0-5,000 Units/hr (0-100 mL/hr), Intravenous, CONTINUOUS, Starting on Tue06/01/24 at 0215, Until Tue06/02/24 at 1244, Begin infusion at 1,000 units per hr (12 units/kg/hr). Maximum initial infusion rate is 1,000 units/hr. Infusion doses are rounded to the nearest 50 units. Target Heparin UFH Level (anti-Xa activity) = 0.3 - 0.7 international unit/mL Start adjustment schedule 6 hours after starting infusion. If Heparin UFH Level is: - Less than 0.1 international unit/mL: Administer PRN bolus and increase rate by 400 units per hr (4 units/kg/hr) - 0.1 - 0.19 international unit/mL: Administer PRN bolus and increase rate by 200 units per hr (2 units/kg/hr) - 0.2 - 0.29 international unit/mL: NO BOLUS and increase rate by 200 units per hr (2 units/kg/hr) - 0.3 - 0.7 international unit/mL: No change - 0.71 - 0.79 international unit/mL: NO BOLUS and decrease rate by 100 units per hr (1 units/kg/hr) - 0.8 - 0.99 international unit/mL: NO BOLUS and decrease rate by 200 units per hr (2 units/kg/hr) - Greater than or equal to 1.00 international unit/mL: Hold infusion for 60 minutes then decrease rate by 300 units per hour (3 units/kg/hr) Obtain Heparin UFH Level 6 hours after initiating heparin. Then 6 hours after each dose adjustment. When 2 consecutive Heparin UFH Level within target range of 0.3 - 0.7 international unit/mL, change Heparin UFH Level to once every 24 hours with A.M. labs while on heparin. RN to order required Heparin UFH Level - Per Protocol, Routine New Bag 06/02/2024 3:08 AM EDT 800 Units/hr 16 mL/hr Rate/Dose Change 06/01/2024 6:53 PM EDT 800 Units/hr 16 mL /hr Rate/Dose Change 06/01/2024 2:09 PM EDT 900 Units/hr 18 mL /hr ipratropium-albuteroL (Duoneb) 0.5 mg-3 mg(2.5 mg base)/3 mL nebulizer solution 3 mL 3 mL, Nebulization, EVERY 4 HOURS SCHEDULED, First dose on Tue06/01/24 at 0400, Until Discontinued, Routine Given 06/05/2024 9:04 AM EDT 3 mLs Given 06/04/2024 6:16 AM EDT 3 mLs Given 06/03/2024 8:40 PM EDT 3 mLs lamoTRIgine (LaMICtal) tablet 100 mg 100 mg, Oral, 2 TIMES DAILY, First dose on Tue06/01/24 at 0900, Until Discontinued, Routine Given 06/05/2024 9:05 AM EDT 100 mg Given 06/04/2024 8:22 PM EDT 100 mg Given 06/04/2024 9:26 AM EDT 100 mg levothyroxine (Synthroid) tablet 100 mcg 100 mcg, Oral, EVERY MORNING, First dose on Tue06/01/24 at 0600, Until Discontinued, Routine Given 06/05/2024 5:00 AM EDT 100 mcg Given 06/04/2024 6:16 AM EDT 100 mcg Given 06/03/2024 6:17 AM EDT 100 mcg lidocaine (Xylocaine) 1% (10 mg/mL) injection 3 mg 3 mg (0.3 mL), Subcutaneous, ONCE PRN, 1 dose, Starting on Tue06/01/24 at 0004, Until Tue06/05/24 at 1831, for discomfort with PIV insertion, Routine metoprolol succinate XL (Toprol-XL) tablet 50 mg 50 mg, Oral, 2 TIMES DAILY, First dose on Tue06/01/24 at 0900, Until Discontinued, DO NOT CRUSH OR OPEN, Routine Given 06/05/2024 9:05 AM EDT 50 mg Given 06/04/2024 8:22 PM EDT 50 mg Given 06/04/2024 9:26 AM EDT 50 mg nitroGLYcerin (Nitrostat) disintegrating tablet 0.4 mg 0.4 mg, Sublingual, EVERY 5 MIN PRN, Starting on Tue06/01/24 at 0004, Until Tue06/05/24 at 183, Chest pain, May repeat every 5 minutes for a total of three doses. Notify provider if chest pain not relieved with nitroGLYcerin. Do not administer nitroGLYcerin if the patient has received or taken phosphodiesterase (PDE-5) inhibitors such as sildenafiL, tadalafiL or vardenafiL within the last 24 to 72 hours., Routine ondansetron (pf) (Zofran) (2 mg/mL) injection 4 mg 4 mg, Intravenous, EVERY 8 HOURS PRN, Starting on Tue06/02/24 at 1244, Until Tue06/05/24 at 1831, Nausea Given 06/05/2024 6:20 AM EDT 4 mg Given 06/04/2024 12:05 PM EDT 4 mg Given 06/03/2024 3:39 PM EDT 4 mg ondansetron (Zofran) tablet 4 mg 4 mg, Oral, ONCE, 1 dose, On Tue06/05/24 at 1615, Routine Given 06/05/2024 4:00 PM EDT 4 mg oxyCODONE-acetaminophen (Percocet) 5-325 mg per tablet 2 tablet 2 tablet, Oral, EVERY 8 HOURS PRN, Pain, moderate-severe pain, Starting on Tue06/01/24 at 0244, Until Tue06/05/24 at 1831, Maximum dose of acetaminophen is 4,000 mg from all sources in 24 hours Given 06/05/2024 6:20 AM EDT 2 tabl ets Given 06/04/2024 8:22 PM EDT 2 tablets Given 06/04/2024 6:16 AM EDT 2 tablets perflutren protein-A microsphers (Optison) (0.22 mg/mL) injection 0.5 mL 0.5 mL, Intravenous, ONCE PRN, 1 dose, Starting on Tue06/01/24 at 0907, Until Tue06/01/24 at 0907, for enhancement of sub-optimal echo images, Echo Lab (Intra-Procedure), Routine Given 06/01/2024 9:07 AM EDT 0.5 mLs potassium chloride ER (Klor-Con M) crystal tablet 40 mEq 40 mEq, Oral, ONCE, 1 dose, On Tue06/04/24 at 1200, potassium chloride ER particle/crystal tablets (Klor-Con M) may be broken in half and each half swallowed separately. Tablets can be dissolved in ~4 ounces of water; allow ~2 minutes to dissolve, stir well and drink immediately. Do not crush, chew, or suck on tablet., Routine Given 06/04/2024 12:50 PM EDT 40 mEq QUEtiapine (Seroquel) tablet 150 mg 150 mg, Oral, NIGHTLY, First dose on Tue06/01/24 at 2100, Until Discontinued, Routine Given 06/04/2024 8:21 PM EDT 150 mg Given 06/03/2024 8:41 PM EDT 150 mg Given 06/02/2024 8:57 PM EDT 150 mg sodium chloride 0.9 % (flush) (BD PosiFlush Normal Saline 0.9) flush 5 mL 5 mL, Intravenous, 2 TIMES DAILY, First dose on Tue06/01/24 at 0030, Until Discontinued, Routine Given 06/05/2024 9:09 AM EDT 5 mLs Given 06/04/2024 8:31 PM EDT 5 mLs Given 06/04/2024 9:27 AM EDT 5 mLs sodium chloride 0.9 % (flush) (BD PosiFlush Normal Saline 0.9) flush 5-20 mL 5-20 mL, Intravenous, EVERY 1 MIN PRN, Starting on Tue06/01/24 at 0004, Until Tue06/05/24 at 1831, flush, Flush pertains to all indwelling lines. Flush per protocol found in the job aid using the link provided on this medication record., Routine torsemide (Demadex) tablet 20 mg 20 mg, Oral, DAILY, First dose on 06/04/24 at 1200, Until Discontinued, Routine Given 06/05/2024 9:04 AM EDT 20 mg Given 06/04/2024 12:50 PM EDT 20 mg documented in this encounter Active and Recently Administered Medications Times are shown in EDT. Scheduled Medication Order 06/03/2024 06/04/2024 06/05/2024 apixaban (Eliquis) tablet 5 mg 5 mg, Oral, 2 TIMES DAILY, First dose on 06/02/24 at 1315, Until Discontinued, Anticoagulant, Routine, apixaban (Eliquis) Indication: Non-Valvular Atrial Fibrillation 0831 (Given - Provider: Maryellen Rowland RN)2040 (Given - Provider: Tia Rondon RN) 924 (Given - Provider: Maryellen Rowland RN)2021 (Given - Provider: Tia Rondon RN) 09 (Given - Provider: Vera Pena RN) atorvastatin (Lipitor) tablet 40 mg 40 mg, Oral, DAILY AT NOON, First dose (after last modification) on 06/03/24 at 1200, Until Discontinued, Routine 1134 (Given - Provider: Maryellen Rowland RN) 1250 (Given - Provider: Maryellen Rowland RN) 1214 (Given - Provider: Vera Pena, KANDI) baclofen (Lioresal) tablet 5 mg 5 mg, Oral, 2 TIMES DAILY, First dose on Tue06/01/24 at 0900, Until Discontinued, Routine 0829 (Given - Provider: Maryellen Rowland RN)2058 (Given - Provider: Tia Rondon RN) 09 (Given - Provider: Maryellen Rowland RN)2021 (Given - Provider: Tia Rondon RN) 0905 (Given - Provider: Vera Pena RN) cefTRIAXone (Rocephin) 1 g vial attach to sodium chloride 0.9% 50 mL Mini-Bag Plus (COMPLETED) 1 g, Intravenous, EVERY 24 HOURS, 3 doses, First dose on Tue06/01/24 at 0645, Last dose on 06/03/24 at 0645, Administer over 30 Minutes, Indication for (Active or Suspected): Urinary Tract/Pyelonephritis 0617 (New Bag - Provider: Lizzy Torres RN)0647 (Stopped - Provider: Lizzy Torres RN) clopidogreL (Plavix) tablet 75 mg 75 mg, Oral, DAILY, First dose on Tue06/01/24 at 0900, Until Discontinued, Routine 0828 (Given - Provider: Maryellen Rowland RN) 09 (Given - Provider: Maryellen Rowland RN) 09 (Given - Provider: Vera Pena RN) furosemide (Lasix) (10 mg/mL) injection 40 mg (CANCELED) 40 mg, Intravenous, DAILY, First dose (after last modification) on Tue06/03/24 at 0900, Until Discontinued 08 (Given - Provider: Maryellen Rowland RN) ipratropium-albuteroL (Duoneb) 0.5 mg-3 mg(2.5 mg base)/3 mL nebulizer solution 3 mL 3 mL, Nebulization, EVERY 4 HOURS SCHEDULED, First dose on Tue06/01/24 at 0400, Until Discontinued, Routine 0000 (Not Given - Provider: Lizzy Torres RN - Reason: Patient/family refused)0400 (Not Given - Provider: Lizzy Torres RN - Reason: Patient/family refused)0800 (Not Given - Provider: Maryellen Rowland RN - Reason: Patient/family refused)1200 (Given - Provider: Maryellen Rowland RN)1600 (Given - Provider: Maryellen Rowland RN)2040 (Given - Provider: Tia Rondon RN) 0000 (Not Given - Provider: Tia Rondon RN - Reason: Patient/family refused)0616 (Given - Provider: Tia Rondon RN)0800 (Not Given - Provider: Maryellen Rowland RN - Reason: Patient/family refused)1200 (Not Given - Provider: Maryellen Rowland RN - Reason: Patient/family refused)1600 (Not Given - Provider: Maryellen Rowland RN - Reason: Patient/family refused)202 (Not Given - Provider: Tia Rondon RN - Reason: Patient/family refused) 0000 (Not Given - Provider: Tia Rondon RN - Reason: Patient/family refused)0400 (Not Given - Provider: Tia Rondon RN - Reason: Patient/family refused)0904 (Given - Provider: Vera Pena RN)1200 (Hold - Provider: Vera Pena RN - Reason: See comment - Comment: per pt request)1600 (Due) lamoTRIgine (LaMICtal) tablet 100 mg 100 mg, Oral, 2 TIMES DAILY, First dose on Tue06/01/24 at 0900, Until Discontinued, Routine 08 (Given - Provider: Maryellen Rowland RN)2040 (Given - Provider: Tia Rondon RN) 09 (Given - Provider: Maryellen Rowland RN)2021 (Given - Provider: Tia Rondon RN) 09 (Given - Provider: Vera Pena RN) levothyroxine (Synthroid) tablet 100 mcg 100 mcg, Oral, EVERY MORNING, First dose on Tue06/01/24 at 0600, Until Discontinued, Routine 06 (Given - Provider: Lizzy Torres RN) 0616 (Given - Provider: Tia Rondon RN) 0500 (Given - Provider: Tia Rondon RN) metoprolol succinate XL (Toprol-XL) tablet 50 mg 50 mg, Oral, 2 TIMES DAILY, First dose on Tue06/01/24 at 0900, Until Discontinued, DO NOT CRUSH OR OPEN, Routine 08 (Given - Provider: Maryellen Rowland RN)2058 (Given - Provider: Tia Rondon RN) 09 (Given - Provider: Maryellen Rowland RN)2021 (Given - Provider: Tia Rondon RN) 0905 (Given - Provider: Vera Pena RN) ondansetron (Zofran) tablet 4 mg (COMPLETED) 4 mg, Oral, ONCE, 1 dose, On Tue06/05/24 at 1615, Routine 1600 (Given - Provider: Alexandro Myers RN) potassium chloride ER (Klor-Con M) crystal tablet 40 mEq (COMPLETED) 40 mEq, Oral, ONCE, 1 dose, On Tue06/04/24 at 1200, potassium chloride ER particle/crystal tablets (Klor-Con M) may be broken in half and each half swallowed separately. Tablets can be dissolved in ~4 ounces of water; allow ~2 minutes to dissolve, stir well and drink immediately. Do not crush, chew, or suck on tablet., Routine 1250 (Given - Provider: Maryellen Rowland RN) QUEtiapine (Seroquel) tablet 150 mg 150 mg, Oral, NIGHTLY, First dose on Tue06/01/24 at 2100, Until Discontinued, Routine 2040 (Given - Provider: Tia Rondon RN) 2020 (Given - Provider: Tia Rondon RN) sodium chloride 0.9 % (flush) (BD PosiFlush Normal Saline 0.9) flush 5 mL 5 mL, Intravenous, 2 TIMES DAILY, First dose on Tue06/01/24 at 0030, Until Discontinued, Routine 0830 (Given - Provider: Maryellen Rowland RN)2134 (Given - Provider: Tia Rondon RN) 926 (Given - Provider: Maryellen Rowland RN)2030 (Given - Provider: Tia Rondon RN) 09 (Given - Provider: Vera Pena RN) torsemide (Demadex) tablet 20 mg 20 mg, Oral, DAILY, First dose on Tue06/04/24 at 1200, Until Discontinued, Routine 1250 (Given - Provider: Maryellen Rowland RN) 0904 (Given - Provider: Vera Pena, KANDI) PRN Medication Order 06/03/2024 06/04/2024 06/05/2024 acetaminophen (Tylenol) tablet 650 mg 650 mg, Oral, EVERY 4 HOURS PRN, Starting on Tue06/01/24 at 0005, Until Tue06/05/24 at 1831, Pain, Headaches, Maximum dose of acetaminophen is 4,000 mg from all sources in 24 hours., Routine alum-mag hydroxide-simeth (Maalox) (40 mg-40 mg-4 mg/mL) oral liquid 10 mL 10 mL, Oral, 3 TIMES DAILY PRN, Starting on Tue06/02/24 at 1246, Until Tue06/05/24 at 1831, Heartburn, Routine 1214 (Given - Provider: Vera Pena RN) heparin (pf) (porcine) (100 units/mL) flush 5 mL syringe 500 Units (COMPLETED) 500 Units (5 mL), Intravenous, DAILY PRN, 1 dose, Starting on Tue06/05/24 at 1531, Until Tue06/05/24 at 1602, Line Care, Terminal Flush for de-accessing of Implantable Port, Routine 1602 (Given - Provider: Ehsan Manley RN) lidocaine (Xylocaine) 1% (10 mg/mL) injection 3 mg 3 mg (0.3 mL), Subcutaneous, ONCE PRN, 1 dose, Starting on Tue06/01/24 at 0004, Until Tue06/05/24 at 1831, for discomfort with PIV insertion, Routine nitroGLYcerin (Nitrostat) disintegrating tablet 0.4 mg 0.4 mg, Sublingual, EVERY 5 MIN PRN, Starting on Tue06/01/24 at 0004, Until Tue06/05/24 at 183, Chest pain, May repeat every 5 minutes for a total of three doses. Notify provider if chest pain not relieved with nitroGLYcerin. Do not administer nitroGLYcerin if the patient has received or taken phosphodiesterase (PDE-5) inhibitors such as sildenafiL, tadalafiL or vardenafiL within the last 24 to 72 hours., Routine ondansetron (pf) (Zofran) (2 mg/mL) injection 4 mg 4 mg, Intravenous, EVERY 8 HOURS PRN, Starting on Tue06/02/24 at 1244, Until Tue06/05/24 at 1831, Nausea 1539 (Given - Provider: Maryellen Rowland RN) 1205 (Given - Provider: Maryellen Rowland RN) 0620 (Given - Provider: Tia Rondon RN) oxyCODONE-acetaminophen (Percocet) 5-325 mg per tablet 2 tablet 2 tablet, Oral, EVERY 8 HOURS PRN, Pain, moderate-severe pain, Starting on Tue06/01/24 at 0244, Until Tue06/05/24 at 1831, Maximum dose of acetaminophen is 4,000 mg from all sources in 24 hours 0828 (Given - Provider: Maryellen Rowland RN)205 (Given - Provider: Tia Rondon RN) 0616 (Given - Provider: Tia Rondon RN)202 (Given - Provider: Tia Rondon RN) 0620 (Given - Provider: Tia Rondon RN) sodium chloride 0.9 % (flush) (BD PosiFlush Normal Saline 0.9) flush 5-20 mL 5-20 mL, Intravenous, EVERY 1 MIN PRN, Starting on Tue06/01/24 at 0004, Until Tue06/05/24 at 1831, flush, Flush pertains to all indwelling lines. Flush per protocol found in the job aid using the link provided on this medication record., Routine documented in this encounter Care Teams Table Top Tile Setter Relationship Specialty Start Date End Date Gaudencio Scales DO [address] [place] [address] PCP - General Family Medicine 11/28/23 documented as of this encounter
--- OUTSIDE RECORDS SUMMARY | 2024-07-27 12:45 | XMS_ITS | Encounter Summary ---
Author Organization [facility] Address [facility] [place] [address] Care Team Providers Care Occupational Therapy Instructor Name Role Phone Gaudencio Scales Primary Care Provider [phone] Encounter Details Date Type Department Care Team (Late st Contact Info) Description 06/12/2024 Orders Only General Surgery at [facility] [place] [address] Jr Fulton MD [facility] [address] [place] [address] Malignant neoplasm of left breast in female, [...] your doctor or pharmacy? Rarely 05/29/2024 [facility] Utilities Answer Date Recorded In the [...] any time in the past 12 m [facility], were you homeless or living in a custodial (including now)? No 06/01/2024 IPV Inpatient Questions [...] 8:40 AM EST Hospital Encounter Mammography at [facility] [place] [address] Jr Fulton MD [facility] [address] [address] 07/30/2024 8:45 AM EST Appointment Mammography at [place] [address] Jr Fulton MD [facility] [place] [address] 07/30/2024 9:20 AM EST Hospital Encounter Mammography at [address] Jr Fulton MD [facility] [place] [address] 07/30/2024 10:51 AM EST Hospital Encounter Outpatient Surgery Center [place] [address] Jr Fulton MD [facility] [place] [address] 07/30/2024 10:51 AM EST Anesthesia Event Outpatient Surgery [facility] [place] [address] Megan Oron[place] [address] 07/30/2024 10:51 AM EST - 07/30/2024 1:11 PM EST Surgery Outpatient Surgery [facility] [place] [address] Jr Fulton MD [facility] [place] [address] MASTECTOMY PARTIAL (WRVU 10.13) 08/22/2024 2:00 PM EST Office Visit General Surgery at [address] Cindy Pierce APRN [facility] [place] [address] 08/22/2024 3:00 PM EST Office Visit Hematology [place] [address] Soo Lyn MD [facility] [place] [address] 08/27/2024 9:30 AM EST Scheduled View Only Radiation Oncology at [address] [phone] Rad Nurse, [facility] [place] 08/27/2024 10:00 AM EST Office Visit Radiation Oncology at [address] [phone] Paradise Prado MD [facility] [place] [address] 2024 1:00 PM EDT Office Visit Cardiology at [address] [place] [address] Ham Montenegro MD [facility] [place] [address] Scheduled Orders Name Type Priority Associated Diagnoses Orde r Schedule Mammo Needle Localization Left Imaging Routine Malignant neoplasm of left breast in female, estrogen receptor negative, unspecified site of breast Expected: 06/12/2024, Expires: 09/11/2024 Mammo Mason Node Injection Imaging Routine Malignant neoplasm of left breast in female, estrogen receptor negative, unspecified site of breast Expected: 06/12/2024, Expires: 09/11/2024 Mammo Specimen Left Imaging Routine Malignant neoplasm of left breast in female, estrogen receptor negative, unspecified site of breast Expected: 06/12/2024, Expires: 09/11/2024 Scheduled Procedures Name Priority Associated Diagnoses Date/Ti [...] breast documented in this encounter Care Teams Occupational Therapy Instructor Relationship Specialty Start Date End Date Gaudencio Scales DO [address] [place] [address] PCP - General Family Medicine 11/28/23 documented as of this encounter
--- OUTSIDE RECORDS SUMMARY | 2024-07-27 12:45 | XMS_ITS | Encounter Summary ---
Author Organization [facility] Address [facility] [place] [address] Care Team Providers Care Icing Coater Name Role Phone Gaudencio Scales DO Primary Care Provider [phone] Encounter Details Date Type Department Care Team (Late st Contact Info) Description 05/29/2024 5:50 PM EDT Ancillary Procedure Radiology Library at [facility] [place] [phone] Gaudencio Scales DO [address] [place], [place] [id number] Social History Tobacco Use Types Packs/Day Years [...] doctor or pharmacy? Rarely 05/29/2024 [facility] Utilities Answer Date Recorded In the past 12 months has [facility], gas, oil, or water [email or web address] threatened to shut off services in your [...] time in the past 12 m [facility], were you homeless or living in a skilled nursing (including now)? No 05/29/2024 IPV Inpatient Questions Answer Date Recorded Does Anyone Try to Keep You From Having Contact with Others or Doing Things Outside Your Home? no 11/28/2023 Feels Threatened by Someone no 11/17 Feels Unsafe at Home or Work/School no 11/28/2023 Physical Signs of Abuse Present no 11/28/2023 Sex and Gender Information Value Date Recorded Sex Assigned at Not on file Gender Identity Not on file Sexual Orientation Not on file documented as of this encounter Plan of Treatment Upcoming Encounters Date Type Department Care Team (Latest Contact Info) Description 07/30/2024 8:40 AM EST Hospital Encounter Mammography at [facility] [place] [address] Jr Fulton MD [facility] [address] [place] [address] 07/30/2024 8:45 AM EST Appointment Mammography at [address]1000 Jr Fulton MD [facility] [place] [address] 07/30/2024 9:20 AM EST Hospital Encounter Mammography at [address] Jr Fulton MD [facility] [place] [address] 07/30/2024 10:51 AM EST Hospital Encounter [place]patient [place] [address] Jr Fulton MD [facility] [place] [address] 07/30/2024 10:51 AM EST Anesthesia Event Outpatient Surgery Center [place] [address] Megan Orona APR[place] [address] 07/30/2024 10:51 AM EST - 07/30/2024 1:11 PM EST Surgery Outpatient Surgery Center [place] [phone] Jr Fulton MD [facility] [place] [address] MASTECTOMY PARTIAL (WRVU 10.13) 08/22/2024 2:00 PM EST Office [place] [address] Cindy Pierce APRN [facility] [place] [address] 08/22/2024 3:00 PM EST Office Visit Hematology [place] [address] Soo Lyn MD [facility] [place] [address] 08/27/2024 9:30 AM EST Scheduled View Only Radiation Oncology at [address] [phone] Rad Nurse, [facility] [place] 08/27/2024 10:00 AM EST Office Visit Radiation Oncology at [address] [phone] Paradise Prado MD [facility] [place] [address] 2024 1:00 PM EDT Office Visit Cardiology at [address] [place] [address] Ham Montenegro MD [facility] [place] [address] Scheduled Procedures Name Priority Associated Diagnoses Date/Ti [...] Diagnosis Comments FILM LIBRARY STORAGE ONLY CT CHEST Routine 05/29/2024 5:47 PM EDT documented in this encounter Results * Film Library- Storage Only CT Chest (05/29/2024 5:47 PM EDT) Narrative RAD - 05/29/2024 5:47 PM EDT This exam is auto-finalizing. It's purpose is for storage only. Gaudencio Scales DO [facility] FILM LIBRARY ORD ERABLES Performing Organization Address City/State/[facility] Co de Phone Number [place], [place] documented in this encounter Visit Diagnoses Not on filedocumented in this encounter Care Teams Icing Coater Relationship Specialty Start Date End Date Gaudencio Scales DO [address] [place] [address] PCP - General Family Medicine 11/28/23 documented as of this encounter
--- OUTSIDE RECORDS SUMMARY | 2024-07-27 12:45 | XMS_ITS | Encounter Summary ---
Author Organization [facility] Address [facility] [place] [address] Care Team Providers Care Solar Business Developer Name Role Phone Gaudencio Scales Antoine VERGARA Primary Care Provider [phone] Reason for Visit * Reason Onset Date Comments Medication Refill 06/19/2024 Encounter Details Date Type Department Care Team (Late st Contact Info) Description 06/19/2024 Refill Psychiatry [place] [address], CONTINUOUS ABSORPTION PROCESS OPERATOR [facility] DR PSYCHIATRY [place] [address] Social History Tobacco Use Types Packs/Day Years [...] from your doctor or pharmacy? Rarely 05/29/2024 [facility] Utilities Answer Date Recorded In [...] place to sleep or slept in a long term (including now)? No 11/29/2023 Housing Stability Vital Sign Answer Jeferson e Recorded In the last 12 months, was t here a time when you were not able to pay the mortgage or rent on time? No 06/01/2024 In the past 12 months, how m any times have you moved where you were living? 1 06/01/2024 At any time in the past 12 m [facility], were you homeless or living in a long term (including now)? No 06/01/2024 DH IPV Inpatient [...] encounter Miscellaneous Notes * Telephone Encounter - Fátima Soto CMA - 06/19/2024 2:28 PM EDT Prescription Renewal Request Name: Oksana A Asia : 1965 Prescription(s) Requested: Requested Prescriptions Pending Prescriptions Disp Refills QUEtiapine (Seroquel) 50 mg tablet 60 tablet 0 Sig: TAKE ONE TABLET BY MOUTH EVERY NIGHT IN ADDITION TO 100MG TABLET. MAY TAKE UP TO 200MG AT BEDTIME IF NEEDED FOR SLEEP Date of Encounter last in This Dept (If need an appointment send to secretaries to schedule): Tatiana Rosario APRN (Nurse Practitioner) Psychiatry Encounter Date: 04/10/2024 Signed Next Encounter in This Dept: Visit date not found Date of Last Refill (for each medication): QUETIAPINE FUMARATE 50 MG TAB Sig: TAKE ONE TABLET BY MOUTH EVERY NIGHT IN ADDTITION TO 100MG TABLET, MAY TAKE UP TO 200MG TAKE BEDTIME IF NEEDED FOR SLEEP Dispensed: 04/30/2024 12:00 AM Unit strength: 50 mg Unit form: tablet with sensor Days supply: 60 Quantity: 60 each Refills remainin Medication category requirements (labs etc): Labs not required per protocol Status of request: Pended No Known Allergies Fátima Soto CMA 06/19/24 2:28 PM documented in this encounter Plan of Treatment Upcoming Encounters Date Type Department Care Team (Latest Contact Info) Description 07/30/2024 8:40 AM EST Hospital Encounter Mammography at [place] [phone] Jr Fulton MD [facility] [address] [address] 07/30/2024 8:45 AM EST Appoint[place] [phone] Jr Fulton MD [facility] [address] [address] 07/30/2024 9:20 AM EST Hospital [place] [phone] Jr Fulton MD [facility] [address] [address] 07/30/2024 10:51 AM EST Hospital Encounter Outpatient Surgery Center [place] [phone] Jr Fulton MD [facility] [place] [address] 07/30/2024 10:51 AM EST Anesthesia Event [place] [address] Megan Oron[place] [address] 07/30/2024 10:51 AM EST - 07/30/2024 1:11 PM EST Surgery Outpatient Surgery Center [place] [phone] Jr Fulton MD [facility] [place] [address] MASTECTOMY PARTIAL (WRVU 10.13) 08/22/2024 2:00 PM EST Office Visit General Surgery at [place] [phone] Cindy Pierce APRN [facility] [place] [address] 08/22/2024 3:00 PM EST Office Visit Hematology and Oncology at [place] [phone] Soo Lyn MD [facility] [place] [address] 08/27/2024 9:30 AM EST Scheduled View Only Radiation Oncology at [address] [address] St [place] 08/27/2024 10:00 AM EST Office Visit Radiation Oncology at [address] [address] Paradise Prado MD [facility] RADIATION [place] [address] 2024 1:00 PM EDT Office Visit Cardiology at [address] [place] [address] Ham Montenegro MD [facility] [place] [address] Scheduled Procedures Name Priority Associated Diagnoses Date/Ti [...] filedocumented in this encounter Care Teams Solar Business Developer Relationship Specialty Start Date End Date Gaudencio Scales DO [address] [place] [address] PCP - General Family Medicine 11/28/23 documented as of this encounter
--- OUTSIDE RECORDS SUMMARY | 2024-07-27 12:45 | XMS_ITS | Encounter Summary ---
Author Organization [facility] Address [facility] [place] [address] Care Team Providers Care Insurance Office Manager Name Role Phone Gaudencio Scales Antoine VERGARA Primary Care Provider Encounter Details Date Type Department Care Team (Latest Contact Info) Description 06/11/2024 Travel Social History Tobacco Use Types Packs/Day [...] from your doctor or pharmacy? Rarely 05/29/2024 [facility] Utilities Answer Date Recorded In the [...] place to sleep or slept in a detention (including now)? No 11/29/2023 Housing Stability Vital Sign Answer Jeferson e Recorded In the last 12 months, was t here a time when you were not able to pay the mortgage or rent on time? No 06/01/2024 In the past 12 months, how m any times have you moved where you were living? 1 06/01/2024 At any time in the past 12 m [facility], were you homeless or living in a detention (including now)? No 06/01/2024 IPV Inpatient Questions [...] 8:40 AM EST Hospital [place] [phone] Jr Fulton MD [facility] [address] [place] [address] 07/30/2024 8:45 AM EST Appoint[place] [address] Jr Fulton MD [facility] [address] [place] [address] 07/30/2024 9:20 AM EST Hospital Encounter Mammography at [address]1000 Jr Fulton MD [facility] [place] [address] 07/30/2024 10:51 AM EST Hospital Encounter Outpatient Surgery Center [place] [phone] Jr Fulton MD [facility] [place] [address] 07/30/2024 10:51 AM EST Anesthesia Event Outpatient Surgery Center [place] [address] Megan Orona [place] [address] 07/30/2024 10:51 AM EST - 07/30/2024 1:11 PM EST Surgery Outpatient Surgery [place] [address] Jr Fulton MD [facility] [place] [address] MASTECTOMY PARTIAL (WRVU 10.13) 08/22/2024 2:00 PM EST Office Visit General Surgery at [address] Cindy Pierce APRN [facility] [place] [address] 08/22/2024 3:00 PM EST Office Visit Hematology and Oncology at [place] [phone] Soo Lyn MD [facility] [place] [address] 08/27/2024 9:30 AM EST Scheduled View Only Radiation Oncology at [address] [phone] [address] [place] 08/27/2024 10:00 AM EST Office Visit Radiation Oncology at [address] [phone] Paradise Prado MD [facility] [place] [address] 2024 1:00 PM EDT Office Visit Cardiology at [address] [address] Ham Montenegro MD [facility] [place] [address] Scheduled Procedures Name Priority Associated Diagnoses Date/Ti [...] on filedocumented in this encounter Care Teams Insurance Office Manager Relationship Specialty Start Date End Date Gaudencio Scales DO [address] [place] [address] PCP - General Family Medicine 11/28/23 documented as of this encounter
--- OUTSIDE RECORDS SUMMARY | 2024-07-27 12:45 | XMS_ITS | Encounter Summary ---
Author Organization [facility] [place] [address] Care Team Providers Care Mail List Librarian Name Role Phone Loyda Gaudencio Antoine VERGARA Primary Care Provider [phone] Reason for Visit * Auth/Cert (Routine) Specialty Diagnoses / Procedures Referred By Radha t Referred To Contact Diagnoses Acute on chronic systolic and diastolic heart failure, NYHA class 2 NSTEMI Procedures EMERGENCY OBSVO TO EMERGENCY IPI Rogelio Wong MD [facility] [place] [address] [facility] Referral ID Status Reason Start Date Expiration Date Visits Re quested Visits Authorized [id number] 1 1 Encounter Details Date Type Department Care Team (Late st Contact Info) Description 06/01/2024 10:00 AM EDT TH Visit (TeleHealth) [place] [address] Chelo Chan, [facility] Malignant neoplasm of upper-outer quadrant of left [...] from your doctor or pharmacy? Rarely 05/29/2024 [facility] Utilities Answer Date Recorded In the past [...] any time in the past 12 m [facility], were you homeless or living in a m[facility]p (including now)? No 06/01/2024 DH IPV Inpatient [...] as of this encounter Progress Notes * Chelo Chan [facility] - 06/01/2024 10:00 AM EDT Oksana Betancourt is a 58 y.o. female diagnosed with Triple negative breast cancer who received cycle 4 of carbo/docetaxel/pembro on 05/29/2024. Did not receive carboplatin on 05/29/24 and was sent to ED after docetaxel infusion. Patient was scheduled today for CINV follow-up with clinic pharmacist However, patient currently admitted. Will re-schedule CINV follow-up to next week. Chelo Chan [facility] 06/01/24 11:58 AM documented in this encounter Plan of Treatment Upcoming Encounters Date Type Department Care Team (Latest Contact Info) Description 07/30/2024 8:40 AM EST Hospital Encounter Mammography at [place] [phone] Jr Fulton MD [facility] [place] [address] 07/30/2024 8:45 AM EST Appointment Mammography at [place] [phone] Jr Fulton MD [facility] [address] [place] [address] 07/30/2024 9:20 AM EST Hospital [place] [phone] Jr Fulton MD [facility] [address] [place] [address] 07/30/2024 10:51 AM EST Hospital Encounter Outpatient Surgery Center [place] [phone] Jr Fulton MD [facility] [place] [address] 07/30/2024 10:51 AM EST Anesthesia Event [place] [address] Megan Oron[place] [address] 07/30/2024 10:51 AM EST - 07/30/2024 1:11 PM EST Surgery [place] [address] Jr Fulton MD [facility] [place] [address] MASTECTOMY PARTIAL (WRVU 10.13) 08/22/2024 2:00 PM EST Office Visit General Surgery at [address] Cindy Pierce APRN [facility] [place] [address] 08/22/2024 3:00 PM EST Office Visit Hematology and Oncology at [place] [phone] Soo Lyn MD [facility] [place] [address] 08/27/2024 9:30 AM EST Scheduled View Only Radiation Oncology at [address] [phone] St Josr [place] 08/27/2024 10:00 AM EST Office Visit Radiation Oncology at [address] [phone] Paradise Prado MD [facility] [place] [address] 2024 1:00 PM EDT Office Visit Cardiology at [address] [place] [address] Ham Montenegro MD [facility] [place] [address] Scheduled Procedures Name Priority Associated Diagnoses Date/Ti [...] negative documented in this encounter Care Teams Mail List Librarian Relationship Specialty Start Date End Date Gaudencio Scales DO [address] [place] [address] PCP - General Family Medicine 11/28/23 documented as of this encounter
--- OUTSIDE RECORDS SUMMARY | 2024-07-27 12:45 | XMS_ITS | Encounter Summary ---
Author Organization [facility] Address [facility] [place] [address] Care Team Providers Care Correctional Cook Name Role Phone Gaudencio Scales Primary Care Provider [phone] Encounter Details Date Type Department Care Team (Late st Contact Info) Description 06/12/2024 1:00 PM EDT Office Visit General Surgery at [facility] [place] [address] Jr Fulton MD [facility] [address] [address] Malignant neoplasm of left breast in female, estrogen receptor negative, unspecified site of breast Social History Tobacco Use Types Packs/Day Years Used Date Smoking Tobacco: Former Cigarettes 1 40 0 11/17/1981 - 11/17/2021 Smokeless Tobacco: Never Tobacco Cessation:Counseling Given: Not Answered Alcohol Use Standard Drinks/Week Comments Not Currently 0 (1 standard drink = 0.6 oz pur e alcohol) B1300 Health Literacy Answer Date Recor ded How often do you need to hav e someone help you when you read instructions, pamphlets, or other written material from your doctor or pharmacy? Rarely 05/29/2024 [facility] Utilities Answer Date Recorded In the past 12 months has [employer], gas, oil, or water company threatened [...] living in a snf (including now)? No 06/01/2024 DH IPV Inpatient [...] Sign Reading Time Taken Comments Blood Pressure 105/42 06/12/2024 1:01 PM EDT Pulse 68 06/12/2024 1:01 PM EDT Temperature 36.3 ??C (97.3 ??F) 06/12/2024 1:01 PM ED T Respiratory Rate - - Oxygen Saturation 98% 06/12/2024 1:01 PM EDT Inhaled Oxygen Concentration - - Weight 99.1 kg (218 lb 8 oz) 06/12/2024 1:01 PM EDT Height 163.4 cm (5' 4.33) 06/12/2024 1:01 PM ED T Body Mass Index 37.12 06/12/2024 1:01 PM EDT documented in this encounter Progress Notes * Jr Fulton MD - 06/12/2024 1:00 PM EDT Oksana Betancourt is a 58-year-old woman who returns after neoadjuvant chemo for triple negative left breast cancer. Oksana was seen on mammography to have a 1 cm mass in her left breast at 1:00 7 cm from the nipple. Ultrasound confirmed this 1 cm mass at 1:00 7. It is very discrete pretty close to the skin. A core biopsy of this showed invasive ductal carcinoma, high-grade, triple negative. Mammography also showed some increased density in the 1-2 o'clock radian over about a 7 cm area with some architectural distortion seen at 1:30 5 cm from the nipple. MRI showed lesion 1, which was the 1.5 cm mass at 1:00 7 cm from nipple. Lesion #2 was a 1 cm mass seen at 1:00 12 cm from the nipple. Core bx of this on 03/26/24 revealed metastatic breast cancer in a node. Her right mammogram and MRI are both negative. She has not felt masses in either breast. She has a history of Hodgkin's lymphoma for which she received mantle radiation therapy in [place] when she was 22 years old. She was not treated with any chemotherapy. She had a splenectomy. She has a family history of breast cancer in 1 sister who was less than 50 years old when she developed breast cancer. Oksana has 5 sisters. Genetic testing: no mutations. She was treated with 4 cycles of carboplatin/docetaxel chemo plus pembrolizumab. On cycle 4 she developed dyspnea and was admitted 06/01-06/05/24. She was diuresed and discharged. No dyspnea or chest pain since then. Current medications include Seroquel, Torsemide, Toprol, Eliquis, plavix, Synthroid, oxycodone (two5 mg tbs/day for chronic neck pain) and Prilosec. No known drug allergies. Past medical history significant for a TAVR in 2021. She had an MO in November 2023 and she had 2 angioplasties and a lesion in the left main coronary artery stented. She has bipolar disorder. Past surgical history: splenectomy, hysterectomy, neck surgery, cholecystectomy. Social history: she is currently not working. She used to work for a [employer] where she made [employer]. On physical exam she is alert and oriented. In general she appears well. Weight is 106 kg. Pupils are equal. She is not jaundiced. Lungs are clear. Heart has a regular rhythm. Examination of her leftbreast: her nipple is normal, there are no left breast masses. There is no left axillary adenopathy, she has full range of motion of her left arm and no left arm edema. There are no right nipple abnor malities or breast masses. No right axillary adenopathy. Abdomen is soft. She has multiple abdominal scars from her previous surgery. Impression: 58-year-old woman with a small, triple negative, high-grade cancer in her left breast with documented metastases to one left axillary node, now having completed neoadjuvant chemo-immunotherapy. We discussed the fact that has a high lifetime risk (appx 30%) of developing cancer in the right breast because of the mantle radiation therapy she had at age 22. We discussed doing a prophylactic right mastectomy. She would like to proceed with bilateral mastectomies and no reconstruction. I recommend that we wire localize the left axillary node that was biopsied positive for cancer and do a sentinel node excision with Tc and blue dye. Dr Hargrove, her Engineering Aide, has indicated that it is safe for her to hold both the clopidogrel (5 days prior to surgery) and apixiban (2 days prior to surgery) and re-start them a day after surgery if she has no problems with bleeding. We will admit her for one night after surgery. Will get an Anesthesia consult pre-op so they are aware of her. She will have oxycodone available at home after surgery. She tells me she has a VNA set up to help daily in the post-op period. Copy to Ryder Hargrove, Dr. Lyn and Gaudencio Scales 06/17/[address] Hargrove confirmed with me that it is reasonable to hold the clopridogrel and apixiban as described above prior to surgery documented in this encounter Plan of Treatment Upcoming Encounters Date Type Department Care Team (Latest Contact Info) Description 07/30/2024 8:40 AM EST Hospital Encounter Mammography at [place] [phone] Jr Fulton MD [facility] [place] [address] 07/30/2024 8:45 AM EST Appointment Mammography at [place] [phone] Jr Fulton MD [facility] [place] [address] 07/30/2024 9:20 AM EST Hospital Encounter Mammography at [place] [phone] Jr Fulton MD [facility] [place] [address] 07/30/2024 10:51 AM EST Hospital Encounter [place]patient [place] [phone] Jr Fulton MD [facility] [place] [address] 07/30/2024 10:51 AM EST Anesthesia Event [place] [address] Megan Oron[place] [address] 07/30/2024 10:51 AM EST - 07/30/2024 1:11 PM EST Surgery [place] [phone] Jr Fulton MD [facility] [place] [address] MASTECTOMY PARTIAL (WRVU 10.13) 08/22/2024 2:00 PM EST Office Visit General Surgery at [place] [phone] iCndy Pierce APRN [facility] [place] [address] 08/22/2024 3:00 PM EST Office Visit Hematology [place] [address] Soo Lyn MD [facility] [place] [address] 08/27/2024 9:30 AM EST Scheduled View Only Radiation Oncology at [address] [phone] [address] [place]valles 08/27/2024 10:00 AM EST Office Visit Radiation Oncology at [address] [phone] Paradise Prado MD [facility] [place] [address] 2024 1:00 PM EDT Office Visit Cardiology at [address] [place] [phone] Ham Montenegro MD [facility] [place] [address] Scheduled Procedures Name Priority Associated Diagnoses Date/Ti [...] breast documented in this encounter Care Teams Correctional Cook Relationship Specialty Start Date End Date Gaudencio Scales DO [address] [place] [address] PCP - General Family Medicine 11/28/23 documented as of this encounter
--- OUTSIDE RECORDS SUMMARY | 2024-07-27 12:45 | XMS_ITS | Encounter Summary ---
Author Organization [facility] Address [facility] [place] [address] Care Team Providers Care Interior Plant Caretaker Name Role Phone Gaudencio Scales Antoine VERGARA Primary Care Provider [phone] Encounter Details Date Type Department Care Team (Latest Contact Info) Description 06/12/2024 Travel Social History Tobacco Use Types Packs/Day [...] doctor or pharmacy? Rarely 05/29/2024 [facility] Utilities Answer Date Recorded In the [...] living in a fdc (including now)? No 06/01/2024 IPV Inpatient Questions [...] 8:40 AM EST Hospital [place] [phone] Jr Fulton MD [facility] [address] [place] [address] 07/30/2024 8:45 AM [place] [phone] Jr Fulton MD [facility] [address] [address] 07/30/2024 9:20 AM EST Hospital Encounter Mammography at [address] Jr Fulton MD [facility] [place] [address] 07/30/2024 10:51 AM EST Hospital Encounter Outpatient Surgery Center [place] [phone] Jr Fulton MD [facility] [place] [address] 07/30/2024 10:51 AM EST Anesthesia Event Outpatient Surgery Center [place] [address] Megan Orona APR[place] [address] 07/30/2024 10:51 AM EST - 07/30/2024 1:11 PM EST Surgery [place] [address] Jr Fulton MD [facility] [place] [address] MASTECTOMY PARTIAL (WRVU 10.13) 08/22/2024 2:00 PM EST Office Visit General Surgery at [address] Cindy Pierce APRN [facility] [place] [address] 08/22/2024 3:00 PM EST Office Visit Hematology and Oncology at [place] [phone] Soo Lyn MD [facility] [place] [address] 08/27/2024 9:30 AM EST Scheduled View Only Radiation Oncology at [address] [phone] [address] [place]valles 08/27/2024 10:00 AM EST Office Visit Radiation Oncology at [address] [phone] Paradise Prdao MD [facility] [place] [address] 2024 1:00 PM EDT Office Visit Cardiology at [address] [phone] Ham Montenegro MD [facility] [place] [address] Scheduled Procedures Name Priority Associated Diagnoses Date/Ti [...] on filedocumented in this encounter Care Teams Interior Plant Caretaker Relationship Specialty Start Date End Date Gaudencio Scales DO [address] [place] [address] PCP - General Family Medicine 11/28/23 documented as of this encounter
--- OUTSIDE RECORDS SUMMARY | 2024-07-27 12:45 | XMS_ITS | Encounter Summary ---
Author Organization [facility] Address [facility] [place] [address] Care Team Providers Care Overlay Operator Name Role Phone RachelmauryGaudencio DO Primary Care Provider [phone] Encounter Details Date Type Department Care Team (Late st Contact Info) Description 06/04/2024 Telephone Cardiology at [address] [place] [address] Renae Figueroa, RN Social History Tobacco Use Types Packs/Day Years [...] doctor or pharmacy? Rarely 05/29/2024 [facility] Utilities Answer Date Recorded In the [...] in the past 12 m [facility], were you homeless or living in a jail (including now)? No 06/01/2024 IPV Inpatient Questions [...] encounter Miscellaneous Notes * Telephone Encounter - Renae Figueroa, RN - 06/21/2024 3:47 PM EDT Scheduled with Dr. Montenegro 07/30/2024 * Telephone Encounter - Renae Figueroa RN - 06/04/2024 1:53 PM EDT ----- Message from Arlin Jackson sent at 06/04/2024 12:39 PM EDT ----- Good morning, I am reaching out to see if this patient would be able to get a follow-up appointment with Dr. Montenegro? She usually goes to [facility] for heme onc, and I placed a referral for cardio-oncology at [place]. If possible, patient would be seen within 4 weeks. Thank you! Arlin documented in this encounter Plan of Treatment Upcoming Encounters Date Type Department Care Team (Latest Contact Info) Description 07/30/2024 8:40 AM EST Hospital [place] [address] Jr Fulton MD [facility] [address] [place] [address] 07/30/2024 8:45 AM EST Appointment Mammography at [place] [phone] Jr Fulton MD [facility] [place] [address] 07/30/2024 9:20 AM EST Hospital Encounter Mammography at [place] [phone] Jr Fulton MD [facility] [place] [address] 07/30/2024 10:51 AM EST Hospital Encounter Outpatient [place] [address] Jr Fulton MD [facility] [place] [address] 07/30/2024 10:51 AM EST Anesthesia Event Outpatient Surgery Center [place] [phone] Megan Oron[place] [address] 07/30/2024 10:51 AM EST - 07/30/2024 1:11 PM EST Surgery Outpatient [facility] [place] [phone] Jr Fulton MD [facility] [place] [address] MASTECTOMY PARTIAL (WRVU 10.13) 08/22/2024 2:00 PM EST Office Visit General Surgery at [address]1000 Cindy Pierce APRN [facility] [place] [address] 08/22/2024 3:00 PM EST Office Visit Hematology and Oncology at [place] [phone] Soo Lyn MD [facility] [place] [address] 08/27/2024 9:30 AM EST Scheduled View Only Radiation Oncology at [address] [phone] St Josr [place] 08/27/2024 10:00 AM EST Office Visit Radiation Oncology at [address] [phone] Paradise Prado MD [facility] [place] [address] 2024 1:00 PM EDT Office Visit Cardiology at [address] [place] [phone] Ham Montenegro MD [facility] [place] [address] Scheduled Procedures Name Priority Associated Diagnoses Date/Ti [...] on filedocumented in this encounter Care Teams Overlay Operator Relationship Specialty Start Date End Date Gaudencio Scales DO [address] [place] [address] PCP - General Family Medicine 11/28/23 documented as of this encounter
--- OUTSIDE RECORDS SUMMARY | 2024-07-27 12:46 | XMS_ITS | Encounter Summary ---
Author Organization [facility] Address [facility] [place] [address] Care Team Providers Care Mergers [employer] Acquisitions Banker Name Role Phone Gaudencio Scales DO Primary Care Provider [phone] Encounter Details Date Type Department Care Team (Latest Contact Info) Description 05/11/2024 10:00 AM EDT TH Visit (TeleHealth) [place] [phone] Octavio Guzman, [facility] Malignant neoplasm of upper-outer quadrant of left [...] material from your doctor or pharmacy? Rarely 02/28/2024 [facility] Utilities Answer Date Recorded In the past 12 months has e [employer], gas, oil, or water [employer] threatened to shut off services in your home? No 02/28/2024 Overall Financial Resource Strain (CARDIA) Answe r Date Recorded How hard is it for you to pa y for the very basics like food, housing, medical care, and heating? Somewhat hard 03/14/2024 Hunger Vital Sign Answer Date Recorded Within the past 12 months, y ou worried that your food would run out before you got the money to buy more. Never true Within the past 12 months, t he food you bought just didn't last and you didn't have money to get more. Patient declined 07/2024 PRAPARE - Transportation Answer Date Re corded In the past 12 months, has l ack of transportation kept you from medical appointments or from getting medications? No 02/17 In the past 12 months, has l ack of transportation kept you from meetings, work, or from getting things needed for daily living? No 02/28/2024 Housing Stability Vital Sign Answer Jeferson e [...] place to sleep or slept in a assisted (including now)? No 11/29/2023 Housing Stability Vital Sign Answer Jeferson e Recorded In the last 12 months, was t here a time when you were not able to pay the mortgage or rent on time? No 02/28/2024 In the past 12 months, how m any times have you moved where you were living? 0 02/28/2024 At any time in the past 12 m [facility], were you homeless or living in a assisted (including now)? No 02/28/2024 DH IPV Inpatient Questions Answer Date Recorded [...] as of this encounter Progress Notes * Octavio Guzman, [facility] - 05/11/2024 10:00 AM EDT Oncology Clinical Pharmacist Consultation: CINV follow-up Visit Type: Telephone Subjective: Patient ID: Oksana Betancourt is a 58 y.o. female diagnosed with breast cancer who is being seen in follow-up today for chemotherapy-induced nausea and vomiting management. Allergies and Drug intolerance: No Known Allergies Chemotherapy Regimen includes the following agents: carboplatin (Paraplatin) AUC 5 IV once every 21 days docetaxel (Taxotere) 75 mg/m2 IV once every 21 days pembrolizumab (Keytruda)200 mg every 21 days Blue Eye Antiemetic Regimen Aloxi (palonosetron) 0.25 mg IV once prior to chemotherapy Emend (fosaprepitant) 150 mg IV once prior to chemotherapy Home Antiemetic Regimen Compazine (prochlorperazine) 10 mg PO every 6 hours as needed for nausea Decadron (dexamethasone) 4 mg PO daily on days 2-4 as needed for nausea Zofran (ondansetron) 8 mg PO every 8 hours as needed for nausea CINV Assessment: Did you experience any nausea and/or vomiting during your last cycle of chemotherapy? Yes If yes, when did the nausea and/or vomiting occur and how long did it last? One- two days Did you need to utilize any PRN antinausea medications? Yes, zofran every 8 hours Did you have any difficulty filling your antinausea medications? No Do you need any refills of any antinausea medications? Yes, zofran Do you believe your nausea is adequately controlled on your current regimen? Yes Assessment and Recommendations: Oksana Betancourt is a 58 y.o. female diagnosed with breast cancer who was seen in follow up today for chemotherapy-induced nausea and vomiting management. Pharmacy will continue to regularly meet with her until an optimal antiemetic regimen is determined. Antiemetic Plan: Compazine (prochlorperazine) 10 mg PO every 6 hours as needed for nausea Decadron (dexamethasone) 4 mg PO daily on days 2-4 as needed for nausea Zofran (ondansetron) 8 mg PO every 8 hours as needed for nausea Pharmacy follow up appointment: 06/01 at 10AM telephone visit Octavoi Guzman RPH 05/10/24 10 minutes were spent providing patient education. documented in this encounter Plan of Treatment Upcoming Encounters Date Type Department Care Team (Latest Contact Info) Description 07/30/2024 8:40 AM EST Hospital [place] [phone] Jr Fulton MD [facility] [address] [place] [address] 07/30/2024 8:45 AM EST Appointment Mammography at [address] Jr Fulton MD [facility] [place] [address] 07/30/2024 9:20 AM EST Hospital Encounter Mammography at [address] Jr Fulton MD [facility] [place] [address] 07/30/2024 10:51 AM EST Hospital Encounter [place] [address] Jr Fulton MD [facility] [place] [address] 07/30/2024 10:51 AM EST Anesthesia Event Outpatient Surgery Center [place] [address] Megan Orona [place] [address] 07/30/2024 10:51 AM EST - 07/30/2024 1:11 PM EST Surgery Outpatient Surgery [facility] [place] [phone] Jr Fulton MD [facility] [place] [address] MASTECTOMY PARTIAL (WRVU 10.13) 08/22/2024 2:00 PM EST Office Visit General Surgery at [address] Cindy Pierce APRN [facility] [place] [address] 08/22/2024 3:00 PM EST Office Visit [place]ology [place] [address] Soo Lyn MD [facility] [place] [address] 08/27/2024 9:30 AM EST Scheduled View Only Radiation Oncology at [address] [phone] Rad Nurse, [facility] [place] 08/27/2024 10:00 AM EST Office Visit Radiation Oncology at [address] [phone] Paradise Prado MD [facility] [place] [address] 2024 1:00 PM EDT Office Visit Cardiology at [address] [place] [address] Ham Montenegro MD [facility] [place] [place] [address] Scheduled Procedures Name Priority Associated Diagnoses Date/Ti [...] negative documented in this encounter Care Teams Mergers And Acquisitions Banker Relationship Specialty Start Date End Date Gaudencio Scales DO [address] [place] [address] PCP - General Family Medicine 11/28/23 documented as of this encounter
--- OUTSIDE RECORDS SUMMARY | 2024-07-27 12:46 | XMS_ITS | Encounter Summary ---
Author Organization [facility] Address [facility] [place] [address] Care Team Providers Care Engineer Station Mainline Name Role Phone Gaudencio Scales Primary Care Provider [phone] Encounter Details Date Type Department Care Team (Late st Contact Info) Description 05/08/2024 Notes Only [place]ematology [place] [address] Paradise Contreras PA [facility] [place] [address] Social History Tobacco Use Types Packs/Day Years [...] from your doctor or pharmacy? Rarely 02/28/2024 [facility] Utilities Answer Date Recorded In the past 12 months has e [employer], gas, oil, or water [employer] threatened to shut off services in your [...] to sleep or slept in a senior care (including now)? No 11/29/2023 Housing Stability Vital [...] you homeless or living in a senior care (including now)? No 02/28/2024 DH IPV Inpatient [...] as of this encounter Progress Notes * Paradise Contreras PA - 05/08/2024 8:37 AM EDT Images from the original note were not included. Oksana is receiving infusion today at [facility]. She canceled her telehealth with me yesterday. I wasable to review her labs separately and they are appropriate enough for her to be treated today. Infusion Nursing at [facility] was made aware. I would like to closely monitor her hgb, Cr, PLT, and alk phos, they are elevated but not too much elevated from pt's baseline. Paradise Contreras PA-C Physician Ballistics Professor Breast Oncology Instructor in Medicine, [facility] of [facility], [facility] documented in this encounter Plan of Treatment Upcoming Encounters Date Type Department Care Team (Latest Contact Info) Description 07/30/2024 8:40 AM EST Hospital [place] [address] Jr Fulton MD [facility] [address] [address] 07/30/2024 8:45 AM EST [place] [address] Jr Fulton MD [facility] [address] [place] [address] 07/30/2024 9:20 AM EST Hospital Encounter Mammography at [place] [phone] Jr Fulton MD [facility] [address] [place] [address] 07/30/2024 10:51 AM EST Hospital Encounter Outpatient Surgery [facility] [place] [phone] Jr Fulton MD [facility] [place] [address] 07/30/2024 10:51 AM EST Anesthesia Event Out[facility] [place] [phone] Megan Orona APR[place] [address] 07/30/2024 10:51 AM EST - 07/30/2024 1:11 PM EST Surgery Outpatient [facility] [place] [phone] Jr Fulton MD [facility] [place] [address] MASTECTOMY PARTIAL (WRVU 10.13) 08/22/2024 2:00 PM EST Office Visit General Surgery at [place] [phone] Cindy Pierce APRN [facility] [place] [address] 08/22/2024 3:00 PM EST Office Visit Hematology and Oncology at [place] [phone] Soo Lyn MD [facility] [place] [address] 08/27/2024 9:30 AM EST Scheduled View Only Radiation Oncology at [address] [phone] [facility] [place] 08/27/2024 10:00 AM EST Office Visit Radiation Oncology at [address] [phone] Paradise Prado MD [facility] [place] [address] 2024 1:00 PM EDT Office Visit Cardiology at [address] [place] [phone] Ham Montenegro MD [facility] [place] [address] Scheduled Procedures Name Priority Associated Diagnoses Date/Ti [...] on filedocumented in this encounter Care Teams Engineer Station Mainline Relationship Specialty Start Date End Date Gaudencio Scales DO 4 [facility] [place] [address] PCP - General Family Medicine 11/28/23 documented as of this encounter
--- OUTSIDE RECORDS SUMMARY | 2024-07-27 12:46 | XMS_ITS | Encounter Summary ---
Author Organization [facility] Address [facility] [place] [address] Care Team Providers Care Grocery Specialist Name Role Phone Gaudencio Scales Antoine VERGARA Primary Care Provider [phone] Encounter Details Date Type Department Care Team (Late st Contact Info) Description 05/08/2024 Notes Only Hematology/Oncology at [address] [phone] Noelle Cervantes, CASE HARDENER OFFICE OF CARE MANAGEMENT Social History Tobacco Use Types Packs/Day Years [...] from your doctor or pharmacy? Rarely 02/28/2024 [facility] Utilities Answer Date Recorded In the past 12 months has e [email or web address], gas, oil, or water [employer] threatened to shut off services in your [...] any time in the past 12 m [facility], were you homeless or living in a mcc (including now)? No 02/28/2024 DH IPV Inpatient [...] as of this encounter Progress Notes * Noelle Cervantes, CASE HARDENER - 05/08/2024 9:37 AM EDT Reason for Referral: Brief assessment of social and emotional needs. Met with Oksana during her infusion visit today to introduce myself and role of social insurance specialist to assess/address barriers to getting to and through treatments; address support needs and connect with community services and resourcesas needed. Family/Social Supports: Oksana identified her brother and sister in law as her primary supports. They live next door to Oksana. Living Situation/Daily Activities/Transportation: Oksana manages her daily chores and activities. She lives local to this facility and does not expect any issues with transportation. Work/Finances/Insurance: Oksana does not work. She lives on a limited income from from ($969/mo). She has [facility] Managed Medicare and Medicaid for insurance. She did not identify any financial or insurance concerns. Advance Directives: Oksana has not completed her advance directive. Offered information and assistance if interested in completing her document. Utilization of Community Resources: Food assistance ($291/mo). Adjustment to Illness/Mental Health Concerns: Oksana indicated she coping as best she can. She is glad she is able to get her treatments closer to home. She moved up from [place] this past August to be closer to her brother. She is going to miss a cruise she and friends have planned. She hopes togo on their next trip sometime in the future when her treatments are done. Offered support. Identified Needs: Oksana did not identify any specific needs at this time. Referrals: None at this time. Social Work Interventions: Brief assessment Supportive Counseling Advance care planning Plan: Informed Oksana of CASE HARDENER availability and contact information. Will follow to assess/address psychosocial needs. LEYDA Wei, BRANCH SALES MANAGER, OSW-C Assistant Professor Of History [facility] documented in this encounter Plan of Treatment Upcoming Encounters Date Type Department Care Team (Latest Contact Info) Description 07/30/2024 8:40 AM EST Hospital [place] [address] Jr Fulton MD [facility] [place] [address] 07/30/2024 8:45 AM EST [place] [address] Jr Fulton MD [facility] [place] [address] 07/30/2024 9:20 AM EST Hospital Encounter Mammography at [place] [address] Jr Fulton MD [facility] [place] [address] 07/30/2024 10:51 AM EST Hospital Encounter [place]patient [place] [address] Jr Fulton MD [facility] [place] [address] 07/30/2024 10:51 AM EST Anesthesia Event Outpatient Surgery Center [place] [address] Megan Oron[place] [address] 07/30/2024 10:51 AM EST - 07/30/2024 1:11 PM EST Surgery Outpatient Surgery Center [address] Jr Fulton MD [facility] [place] [address] MASTECTOMY PARTIAL (WRVU 10.13) 08/22/2024 2:00 PM EST Office Visit General Surgery at [place] [address] Cindy Pierce APRN [facility] [place] [address] 08/22/2024 3:00 PM EST Office Visit Hematology and Oncology at [place] [phone] Soo Lyn MD [facility] [place] [address] 08/27/2024 9:30 AM EST Scheduled View Only Radiation Oncology at [address] [phone] Rad Nurse Josr 08/27/2024 10:00 AM EST Office Visit Radiation Oncology at [address] [phone] Paradise Prado MD [facility] [place] [address] 2024 1:00 PM EDT Office Visit Cardiology at [address] [phone] Ham Montenegro MD [facility] [place] [address] Scheduled Procedures Name Priority Associated Diagnoses Date/Ti [...] on filedocumented in this encounter Care Teams Grocery Specialist Relationship Specialty Start Date End Date Gaudencio Scales DO [address] [place] [address] PCP - General Family Medicine 11/28/23 documented as of this encounter
--- OUTSIDE RECORDS SUMMARY | 2024-07-27 12:46 | XMS_ITS | Encounter Summary ---
Author Organization [facility] Address [facility] [place] [address] Care Team Providers Care Bar Finish Operator Name Role Phone Gaudencio Scales Primary Care Provider [phone] Reason for Visit * Treatment/Therapy Plan Authorization (Routine) - Pending Review Specialty Diagnoses / Procedures Referred By Contac t Referred To Contact Hematology and Oncology Diagnoses Malignant neoplasm of upper-outer quadrant of left breast in female, estrogen receptor negative Procedures TC DOCETAXEL, 1MG, INJECTION TC CARBOPLATIN, 50MG, INJECTION (PARAPLATIN) TC PALONOSETRON HCL, 25MCG, INJECTION (ALOXI) TC APREPITANT, 1 MG, INJECTION TC PEGFILGRASTIM, EXCLUDES BIOSIMILAR, 0.5 MG, INJ TC FOSAPREPITANT, 1MG, INJECTION (EMEND) Soo Lyn MD [facility] [place] [address] [facility] [address] [place] [address] Referral ID Status Reason Start Date Expiration Date V isits Requested Visits Authorized [id number] Pending Review 03/14/2024 03/14/2025 99 101 Encounter Details Date Type Department Care Team (Latest Contact Info) Description 04/17/2024 6:52 AM EDT - 04/17/2024 11:59 PM EDT Hospital Encounter Hematology [place] [address] Malignant neoplasm of upper-outer quadrant of left [...] from your doctor or pharmacy? Rarely 02/28/2024 [facility] Utilities Answer Date Recorded In the past 12 months has th e [employer], gas, oil, or water company threatened to [...] any time in the past 12 m [facility], were you homeless or living in a group home (including now)? No 02/28/2024 DH IPV Inpatient [...] Sig Dispensed Refills Start Date End Date multivitamin (THERAGRAN) Tablet Take 1 tablet by [...] hours as needed for Nausea. 60 tablet 04/11/2024 05/11/2024 diphenhydrAMINE/alumin um-magnesium hydroxide with simethicone/lidocaine (BMX) (6.67 mg-0.83 mg-13.33 mg-1.33 mg/mL) oral liquid Take 20-30 mLs by mouth every 4 hours as needed. 240 mL 3 04/05/2024 05/11/2024 dexAMETHasone (Decadron) 4 mg tablet Take 1 tablet by mouth daily. Take on days 2-4 for each chemotherapy cycle 20 tablet 03/23/2024 07/02/2024 prochlorperazine (Compazine) 10 mg tablet Take 1 tablet by mouth every 6 hours as needed for Nausea. 30 tablet 3 03/23/2024 07/02/2024 QUEtiapine (SEROquel) 50 mg tablet Take 1 tablet by mouth nightly. In addition to 100 mg tab. May take up to 200 mg HS if needed for sleep. 60 tablet 03/13/2024 04/30/2024 furosemide (Lasix) 20 mg tablet Take 1 tablet by mouth daily as needed (weight gain, SOB, volume overload). 90 tablet 1 12/04/2023 06/05/2024 baclofen (Lioresal) 10 mg tablet Take 0.5 tablets by mouth 2 times daily. 10/27/2023 07/16/2024 documented as of this encounter Progress Notes * Cely Bermeo, RN - 04/17/2024 11:21 AM EDT Patient Name: Oksana Betancourt Patient Age: 58 y.o. Birthdate: 1965 Admit date: 04/17/2024 Attending Physician: Padimni att. providers found TIME TREATMENT STARTED: 10:14 TIME TREATMENT ENDED: 14:10 Oksana Betancourt, 58 y.o. female with diagnosis of breast cancer is here for chemotherapy infusion of pembrolizumab, docetaxel, and carboplatin with Onpro application. CYCLE: 2 DAY: 1 S: Pt reports feeling anxious, requested ativan. O: Chemotherapy orders independently verified for correct drug name, route and dosage per patient'sheight, weight and BSA by Cely Bermeo, KANDI and onsite pharmacist. PRN ativan given with good effect. REACTIONS (DESCRIPTION, TIME, INTERVENTION AND EFFECTIVENESS) NA A: Pt. Tolerated treatment well. Oksana Betancourt confirms that all questions and issues have been addressed. P: Return to clinic as advised. documented in this encounter Plan of Treatment Upcoming Encounters Date Type Department Care Team (Latest Contact Info) Description 07/30/2024 8:40 AM EST Hospital Encounter Mammography at [place] [phone] Jr Fulton MD [facility] [address] [place] [address] 07/30/2024 8:45 AM EST Appointment Mammography at [place] [phone] Jr Fulton MD [facility] [address] [place] [address] 07/30/2024 9:20 AM EST Hospital Encounter Mammography at [place] [phone] Jr Fulton MD [facility] [address] [place] [address] 07/30/2024 10:51 AM EST Hospital Encounter Outpatient Surgery Center [place] [phone] Jr Futlon MD [facility] [place] [address] 07/30/2024 10:51 AM EST Anesthesia Event Outpatient [facility] [place] [phone] Megan Oron[place] [address] 07/30/2024 10:51 AM EST - 07/30/2024 1:11 PM EST Surgery Outpatient [facility] [place] [phone] Jr Fulton MD [facility] [place] [address] MASTECTOMY PARTIAL (WRVU 10.13) 08/22/2024 2:00 PM EST Office Visit General Surgery at [place] [phone] Cindy Pierce APRN [facility] [place] [address] 08/22/2024 3:00 PM EST Office Visit Hematology and Oncology at [place] [phone] Soo Lyn MD [facility] [place] [address] 08/27/2024 9:30 AM EST Scheduled View Only Radiation Oncology at [address] [phone] [address] Jos[facility] [place] 08/27/2024 10:00 AM EST Office Visit Radiation Oncology at [address] [phone] Paradise Prado MD [facility] [place] [address] 2024 1:00 PM EDT Office Visit Cardiology at [address] [place] [phone] Ham Montenegro MD [facility] [place] [address] Scheduled Procedures Name Priority Associated Diagnoses Date/Ti [...] MAR Action Action Date Dose Rate Site CARBOplatin (Paraplatin) 494 mg in dextrose 5% 299.4 mL infusion 494 mg (Target AUC = 5), Intravenous, ONCE, 1 dose, On Tue04/17/24 at 1100, Administer over 30 Minutes, Warning Vesicant/Irritant Medication New Bag 04/17/2024 1:33 PM EDT 494 mg 598.8 mL/hr dexAMETHasone (PF) (Decadron) (10 mg/mL) injection 10 mg 10 mg, Intravenous, ONCE, 1 dose, On Tue04/17/24 at 1030, Administer 60 minutes prior to DOCEtaxeL Given 04/17/2024 10:34 AM EDT 10 mg diphenhydrAMINE (Benadryl) capsule 50 mg 50 mg, Oral, ONCE, 1 dose, On Tue04/17/24 at 1000, Administer 60 minutes prior to DOCEtaxeL, Routine Given 04/17/2024 10:34 AM EDT 50 mg DOCEtaxeL (Taxotere) 160 mg in sodium chloride 0.9% Non-PVC 258 mL infusion 160 mg (rounded from 165.75 mg = 75 mg/m2/dose ? 2.21 m2 Treatment Plan BSA from Recorded weight), Intravenous, ONCE, 1 dose, On Tue04/17/24 at 1100, Administer over 60 Minutes, Step 1: Start at a rate of 2.6 mL/hr for 15 minutes. Step 2: Increase rate to 25.8 mL/hr for 15 minutes. Step 3: Increase to regular infusion rate 258 mL/hr for remainder of infusion. Warning Vesicant/Irritant Medication , Should this infusion follow 3 Step Titration (Initial Dosing) or Standard Infusion? Initial: 3 Step Titration New Bag 04/17/2024 11:53 AM EDT 160 mg 258 mL/hr famotidine (Pepcid) (10 mg/mL) injection 20 mg 20 mg, Intravenous, ONCE, 1 dose, On Tue04/17/24 at 1030, Administer 60 minutes prior to DOCEtaxeL Given 04/17/2024 10:34 AM EDT 20 mg fosaprepitant (Emend) 150 mg in sodium chloride 0.9% 255 mL infusion 150 mg, Intravenous, at 510 mL/hr, Administer over 30 Minutes, ONCE, 1 dose, On Tue04/17/24 at 1030, Routine, Fosaprepitant IV is restricted for use only for pediatric patients, patients, and when insurance requires its use. For all other populations, please order aprepitant IV (Cinvanti). Which category does your patient fall into? Insurance Required New Bag 04/17/2024 10:39 AM EDT 150 mg 510 mL/hr LORazepam (Ativan) tablet 0.5 mg 0.5 mg, Oral, EVERY 4 HOURS PRN, Starting on Tue04/17/24 at 1025, Until Tue04/18/24 at 0434, Anxiety, Nausea, Vomiting, If multiple antiemetics are ordered, use in the following sequence: Ondansetron>Prochlorpe razine or Promethazine>LORazepam >Metoclopramide, Routine Given 04/17/2024 10:43 AM EDT 0.5 mg palonosetron (Aloxi) (0.05 mg/mL) injection 0.25 mg 0.25 mg, Intravenous, ONCE, 1 dose, On Tue04/17/24 at 1000, Administer over 30 seconds., Routine Given 04/17/2024 10:34 AM EDT 0.25 mg pegfilgrastim (Neulasta Onpro) (6 mg/0.6 mL) injection kit 6 mg 6 mg, Subcutaneous, ONCE, 1 dose, On Tue04/17/24 at 1000, Allow the prefilled syringe co-packaged with the on-body injector to reach room temperature at least 30 minutes prior to administration., Routine, This agent is restricted to outpatient use. Is this drug being given as an outpatient? Yes Given 04/17/2024 1:41 PM EDT 6 mg Right Lower Quadrant pembrolizumab (Keytruda) 200 mg in sodium chloride 0.9% 108 mL infusion 200 mg, Intravenous, ONCE, 1 dose, On Tue04/17/24 at 1100, Administer over 30 Minutes, Flush Line with NS after each dose, This agent is restricted to outpatient use. Is this drug being given as an outpatient? Yes New Bag 04/17/2024 11:16 AM EDT 200 mg 216 mL/hr sodium chloride 0.9 % (flush) (BD PosiFlush Normal Saline 0.9) flush 5-20 mL 5-20 mL, Intravenous, EVERY 1 MIN PRN, Starting on Tue04/17/24 at 0931, Until Tue04/18/24 at 0434, Line Care, Flush pertains to all indwelling lines. Flush per protocol found in the job aid using the link provided on this medication record. Refer to Intravenous (IV) Job Aid: Adult Flushing & Catheter Care (0725) job aid for additional information regarding guidelines and administration., Routine Given 04/17/2024 2:08 PM EDT 20 mLs Given 04/17/2024 10:34 AM EDT 20 mLs documented in this encounter Care Teams Bar Finish Operator Relationship Specialty Start Date End Date Gaudencio Scales DO [address] [facility] [address] PCP - General Family Medicine 11/28/23 documented as of this encounter
--- OUTSIDE RECORDS SUMMARY | 2024-07-27 12:46 | XMS_ITS | Encounter Summary ---
Author Organization [facility] Address [facility] [place] [address] Care Team Providers Care Sports Management Internship Name Role Phone LoydaGaudencio DO Primary Care Provider [phone] Encounter Details Date Type Department Care Team (Late st Contact Info) Description 05/29/2024 External Results Transfer Center [facility] [place] [phone] Social History Tobacco Use Types Packs/Day Years [...] place to sleep or slept in a penitentiary (including now)? No 11/29/2023 Housing Stability Vital [...] time in the past 12 m [facility], were you homeless or living in a penitentiary (including now)? No 06/01/2024 IPV Inpatient Questions [...] 8:40 AM EST Hospital [place] [phone] Jr Fulton MD [facility] [place] [address] 07/30/2024 8:45 AM EST [place] [phone] Jr Fulton MD [facility] [place] [place] [address] 07/30/2024 9:20 AM EST Hospital Encounter Mammography at [address]1000 Jr Fulton MD [facility] [place] [address] 07/30/2024 10:51 AM EST Hospital Encounter Outpatient Surgery Center [address]1000 Jr Fulton MD [facility] [place] [address] 07/30/2024 10:51 AM EST Anesthesia Event Outpatient Surgery Center [place] [address] Megan Oron[place] [address] 07/30/2024 10:51 AM EST - 07/30/2024 1:11 PM EST Surgery [place] [address] Jr Fulton MD [facility] [place] [address] MASTECTOMY PARTIAL (WRVU 10.13) 08/22/2024 2:00 PM EST Office Visit General Surgery at [place] [address] Cindy Pierce APRN [facility] [place] [address] 08/22/2024 3:00 PM EST Office Visit Hematology and Oncology at [place] [address] Soo Lyn MD [facility] [place] [address] 08/27/2024 9:30 AM EST Scheduled View Only Radiation Oncology at [address] [phone] [address] [place] 08/27/2024 10:00 AM EST Office Visit Radiation Oncology at [address] [phone] Paradise Prado MD [facility] [place] [address] 2024 1:00 PM EDT Office Visit Cardiology at [address] [place] [address] Ham Montenegro MD [facility] [place] [address] Scheduled Procedures Name Priority Associated Diagnoses Date/Ti [...] Procedure Name Priority Date/Time Associated Diagnosis Comments MISC EXTERNAL CARDIOLOGY RESULT Routine 05/29/2024 3:55 PM EDT documented in this encounter Results * External Cardiology Result (05/29/2024 3:55 PM EDT) Anatomical Region Laterality Modality Other Historical Provider EXTERNAL CARDIOLO GY RESULT documented in this encounter Visit Diagnoses Not on filedocumented in this encounter Care Teams Sports Management Internship Relationship Specialty Start Date End Date Gaudencio Scales DO [address] [place] [address] PCP - General Family Medicine 11/28/23 documented as of this encounter
--- OUTSIDE RECORDS SUMMARY | 2024-07-27 12:46 | XMS_ITS | Encounter Summary ---
Author Organization [facility] Address [facility] [place] [address] Care Team Providers Care Wire Inserter Name Role Phone Gaudencio Scales Primary Care Provider [phone] Encounter Details Date Type Department Care Team (Late st Contact Info) Description 04/18/2024 Orders Only Hematology [place] [address] Paradise Contreras PA [facility] [place] [address] Malignant neoplasm of upper-outer quadrant of left breast in female, estrogen receptor negative; Medication management Social History Tobacco Use Types Packs/Day Years [...] from your doctor or pharmacy? Rarely 02/28/2024 [facility] Utilities Answer Date Recorded In [...] living in a usp (including now)? No 02/28/2024 DH IPV Inpatient [...] as of this encounter Miscellaneous Notes * Addendum Note - Paradise Contreras PA - 04/18/2024 9:59 AM EDTAddended by: PARADISE CONTRERAS on: 04/18/2024 10:05 AM Modules accepted: Orders documented in this encounter Plan of Treatment Upcoming Encounters Date Type Department Care Team (Latest Contact Info) Description 07/30/2024 8:40 AM EST Hospital [place] [address] Jr Fulton MD [facility] [address] [place] [address] 07/30/2024 8:45 AM EST Appointment Mammography at [address] Jr Fulton MD [facility] [address] [place] [address] 07/30/2024 9:20 AM EST Hospital Encounter Mammography at [place] [phone] Jr Fulton MD [facility] [address] [place] [address] 07/30/2024 10:51 AM EST Hospital Encounter Outpatient Surgery Center [address]1000 Jr Fulton MD [facility] [address] [place] [address] 07/30/2024 10:51 AM EST Anesthesia Event Outpatient Surgery Center [place] [address] Megan Oron[place] [address] 07/30/2024 10:51 AM EST - 07/30/2024 1:11 PM EST Surgery Outpatient Surgery Center [place] [phone] Jr Fulton MD [facility] [place] [address] MASTECTOMY PARTIAL (WRVU 10.13) 08/22/2024 2:00 PM EST Office Visit General [place] [address] Cindy Pierce APRN [facility] [place] [address] 08/22/2024 3:00 PM EST Office Visit Hematology [place] [phone] Soo Lyn MD [facility] [place] [address] 08/27/2024 9:30 AM EST Scheduled View Only Radiation Oncology at [address] [phone] Rad Nurse, Josr 08/27/2024 10:00 AM EST Office Visit Radiation Oncology at [address] [phone] Paradise Prado MD [facility] [place] [address] 2024 1:00 PM EDT Office Visit Cardiology at [address] [place] [address] Ham Montenegro MD [facility] [place] [address] Scheduled Orders Name Type Priority Associated Diagnoses Orde r Schedule Comprehensive metabolic panel (non-fasting) Lab STAT Malignant neoplasm of upper-outer quadrant of left breast in female, estrogen receptor negative Medication management Every 3 weeks for 24 Occurrences starting 04/18/2024 until 04/18/2025 CBC (with Diff) Lab STAT Malignant neoplasm of upper-outer quadrant of left breast in female, estrogen receptor negative Medication management Every 3 weeks for 24 Occurrences starting 04/18/2024 until 04/18/2025 [facility] [place] Lab STAT Malignant neoplasm of upper-outer quadrant of left breast in female, estrogen receptor negative Medication management Every 3 weeks for 24 Occurrences starting 04/18/2024 until 04/18/2025 T4, free Lab STAT Malignant neoplasm of upper-outer quadrant of left breast in female, estrogen receptor negative Medication management Every 3 weeks for 24 Occurrences starting 04/18/2024 until 04/18/2025 Scheduled Procedures Name Priority Associated Diagnoses Date/Ti [...] left breast in female, estrogen receptor negative Medication management Encounter for long-term (current) use of other medications documented in this encounter Care Teams Wire Inserter Relationship Specialty Start Date End Date Gaudencio Scales DO [address] [place] [address] PCP - General Family Medicine 11/28/23 documented as of this encounter
--- OUTSIDE RECORDS SUMMARY | 2024-07-27 12:46 | XMS_ITS | Encounter Summary ---
Author Organization [facility] Address [facility] [place] [address] Care Team Providers Care Photographer Helper Name Role Phone Gaudencio Scales Antoine VERGARA Primary Care Provider Encounter Details Date Type Department Care Team (Latest Contact Info) Description 04/17/2024 Travel Social History Tobacco Use Types Packs/Day [...] from your doctor or pharmacy? Rarely 02/28/2024 [facility] Utilities Answer Date Recorded In the [...] time in the past 12 m [facility], were you homeless or living in a assisted (including now)? No 02/28/2024 IPV Inpatient Questions Answer Date Recorded Does [...] 8:40 AM EST Hospital [place] [phone] Jr Fulton MD [facility] [address] [place] [address] 07/30/2024 8:45 AM EST [place] [phone] Jr Fulton MD [facility] [place] [address] 07/30/2024 9:20 AM EST Hospital Encounter Mammography at [address]1000 Jr Fulton MD [facility] [place] [address] 07/30/2024 10:51 AM EST Hospital Encounter Outpatient Surgery Center [place] [phone] Jr Fulton MD [facility] [place] [address] 07/30/2024 10:51 AM EST Anesthesia Event Outpatient Surgery Center [address]1000 Megan Oron[place] [address] 07/30/2024 10:51 AM EST - 07/30/2024 1:11 PM EST Surgery Outpatient Surgery Center [address]1000 Jr Fulton MD [facility] [place] [address] MASTECTOMY PARTIAL (WRVU 10.13) 08/22/2024 2:00 PM EST Office Visit General Surgery at [address] Cindy Pierce APRN [facility] [place] [address] 08/22/2024 3:00 PM EST Office Visit Hematology [place] [address] Soo Lyn MD [facility] [place] [address] 08/27/2024 9:30 AM EST Scheduled View Only Radiation Oncology at [address] [phone] [address] Ovalles 08/27/2024 10:00 AM EST Office Visit Radiation Oncology at [address] [phone] Paradise Prado MD [facility] [place] [address] 2024 1:00 PM EDT Office Visit Cardiology at [address] [address] Ham Montenegro MD [facility] [place] [address] Scheduled Procedures Name Priority Associated Diagnoses Date/Ti [...] on filedocumented in this encounter Care Teams Photographer Helper Relationship Specialty Start Date End Date Gaudencio Scales DO [address] [place] [address] PCP - General Family Medicine 11/28/23 documented as of this encounter
--- OUTSIDE RECORDS SUMMARY | 2024-07-27 12:46 | XMS_ITS | Encounter Summary ---
Author Organization [facility] Address [facility] [place] [address] Care Team Providers Care Silica Filter Operator Name Role Phone Gaudencio Scales Antoine VERGARA Primary Care Provider [phone] Encounter Details Date Type Department Care Team (Latest Contact Info) Description 04/18/2024 10:30 AM EDT TH Visit (TeleHealth) Hematology [place] [phone] George Jackson, [facility] Malignant neoplasm of upper-outer quadrant [...] from your doctor or pharmacy? Rarely 02/28/2024 [facility] Utilities Answer Date Recorded In the past 12 months has th e [employer], gas, oil, or water [employer] threatened to shut off services in your [...] time in the past 12 m [facility], were you homeless or living in a intermediate (including now)? No 02/28/2024 IPV Inpatient Questions [...] as of this encounter Progress Notes * George Jackson, [facility] - 04/18/2024 10:30 AM EDT Oncology Clinical Pharmacist Consultation: Cycle 2, Day 1 / CINV follow-up Visit Type: Telephone Subjective: Patient ID: Oksana Betancourt is a 58 y.o. female diagnosed with breast cancer who received cycle 2 day 1 of carboplatin, docetaxel, and pembrolizumab on 04/17/2024. Chemotherapy regimen including supportive care was reviewed during the visit with the patient. Allergies and Drug intolerance: No Known Allergies Chemotherapy Regimen includes the following agents: Carboplatin AUC 5 IV once every 21 days Docetaxel 75mg/m2 IV once every 21 days Pembrolizumab 200mg IV once every 21 days [place] Antiemetic Regimen Palonosetron 0.25gm IV once Fosaprepitant 150mg IV once Dexamethasone 10mg IV once Home Antiemetic Regimen Dexamethasone 4mg po qd days 2, 3, and 4 Ondansetron 8mg PO Q8H PRN for nausea Prochlorperazine 10mg PO Q6H PRN for nausea CINV Assessment: Did you experience any nausea and/or vomiting during cycle 1? Yes nausea, yes vomiting couple times, low volume If yes, when did the nausea and/or vomiting occur and how long did it last? Around day 3 or 4 Did you need to utilize any PRN antinausea medications? Yes, ondansetron worked better than prochlorperazine Did you have any difficulty filling your antinausea medications? no Do you need any refills of any antinausea medications? no Do you believe your nausea is adequately controlled on your current regimen? no Assessment and Recommendations: Patient ID: Oksana Betancourt is a 58 y.o. female diagnosed with breast cancer who received cycle 2 day 1 of carboplatin, docetaxel, and pembrolizumab on 04/17/2024. Chemotherapy regimen including supportive care was reviewed during the visit with the patient. Antiemetic Plan: Oksana had nausea on days 3 and 4 of therapy which was associated with some low- volume emesis. She states that upon taking her ondansetron the nausea resolved relatively quickly. We reviewed the importance of waiting 72 hours after chemotherapy to start taking ondansetron. We also discussed the possibility of scheduling nausea medications on the days where she anticipates feeling more nauseous. Oksana was agreeable to try taking her ondansetron on a schedule for 24-48 hours at the first sign ofnausea (provided it is >72 hours from chemotherapy). We will follow up with Oksana after her next cycle, but she was encouraged to call the clinic pharmacist phone should her emetic control worsen in the meantime. Pharmacy follow up appointment: 05/11/2024 George Jackson [facility] 04/18/24 15 minutes were spent providing patient education. documented in this encounter Plan of Treatment Upcoming Encounters Date Type Department Care Team (Latest Contact Info) Description 07/30/2024 8:40 AM EST Hospital Encounter Mammography at [place] [phone] Jr Fulton MD [facility] [place] [address] 07/30/2024 8:45 AM EST Appointment Mammography at [place] [phone] Jr Fulton MD [facility] [address] [place] [address] 07/30/2024 9:20 AM EST Hospital Encounter [place] [phone] Jr Fulton MD [facility] [place] [address] 07/30/2024 10:51 AM EST Hospital Encounter [place]patient [place] [phone] Jr Fulton MD [facility] [place] [address] 07/30/2024 10:51 AM EST Anesthesia Event [place] [address] Megan Orona [place] [address] 07/30/2024 10:51 AM EST - 07/30/2024 1:11 PM EST Surgery [place] [phone] Jr Fulton MD [facility] [place] [address] MASTECTOMY PARTIAL (WRVU 10.13) 08/22/2024 2:00 PM EST Office Visit General Surgery at [place] [phone] Cindy Pierce APRN [facility] [place] [address] 08/22/2024 3:00 PM EST Office Visit Hematology [place] [address] Soo Lyn MD [facility] [place] [address] 08/27/2024 9:30 AM EST Scheduled View Only Radiation Oncology at [address] [phone] [address] Ovalles 08/27/2024 10:00 AM EST Office Visit Radiation Oncology at [address] [phone] Paradise Prado MD [facility] [place] [address] 2024 1:00 PM EDT Office Visit Cardiology at [address] [place] [place] [phone] Ham Montenegro MD [facility] [place] [address] Scheduled Procedures Name Priority Associated Diagnoses Date/Ti [...] negative documented in this encounter Care Teams Silica Filter Operator Relationship Specialty Start Date End Date Gaudencio Scales DO [address] [place] [address] PCP - General Family Medicine 11/28/23 documented as of this encounter
--- OUTSIDE RECORDS SUMMARY | 2024-07-27 12:46 | XMS_ITS | Encounter Summary ---
Author Organization [facility] Address [facility] [place] [address] Care Team Providers Care Personal Injury Attorney Name Role Phone Gaudencio Scales Antoine VERGARA Primary Care Provider [phone] Encounter Details Date Type Department Care Team (Late st Contact Info) Description 05/29/2024 Notes Only Hematology/Oncology at [address] [phone] Noelle Cervantes, WRAPPER HANDS SPRAYER OFFICE OF CARE MANAGEMENT Social History Tobacco [...] from your doctor or pharmacy? Rarely 05/29/2024 [facility] Utilities Answer Date Recorded In the past 12 months has e [employer], gas, oil, or water [employer] threatened to shut off services in your [...] any time in the past 12 m [facility], were you homeless or living in a intermediate (including now)? No 05/29/2024 DH IPV Inpatient [...] this encounter Progress Notes * Noelle Cervantes, WRAPPER HANDS SPRAYER - 05/29/2024 11:53 AM EDT Follow up with Oksana during her infusion visit today. Oksana indicated she is doing fairly well overall. She is managing day to day at home. Her brother lives in a unit in her apartment complex and he helps her with errands and rides to appointments. She talks daily with her children. There are other residents in her complex that she is getting to know. She is cautious so she is not exposed to illnesses. Oksana did not identify any new needs today. Offered support. Will continue as a resource for Oksana and follow as indicated. Brief assessment Supportive Counseling documented in this encounter Plan of Treatment Upcoming Encounters Date Type Department Care Team (Latest Contact Info) Description 07/30/2024 8:40 AM EST Hospital Encounter Mammography at [place] [phone] Jr Fulton MD [facility] [place] [address] 07/30/2024 8:45 AM EST Appointment [place] [address] Jr Fulton MD [facility] [place] [address] 07/30/2024 9:20 AM EST Hospital Encounter Mammography at [place] [phone] Jr Fulton MD [facility] [place] [address] 07/30/2024 10:51 AM EST Hospital Encounter Outpatient Surgery Center [place] [phone] Jr Fulton MD [facility] [place] [address] 07/30/2024 10:51 AM EST Anesthesia Event Outpatient [place] [address] Megan Orona APRN [place] [address] 07/30/2024 10:51 AM EST - 07/30/2024 1:11 PM EST Surgery Outpatient Surgery Center [place] [phone] Jr Fulton MD [facility] [place] [address] MASTECTOMY PARTIAL (WRVU 10.13) 08/22/2024 2:00 PM EST Office Visit General Surgery at [address]1000 Cindy Pierce APRN [facility] [address] 08/22/2024 3:00 PM EST Office Visit Hematology and Oncology at [place] [phone] Soo Lyn MD [facility] [place] [address] 08/27/2024 9:30 AM EST Scheduled View Only Radiation Oncology at [address] [phone] Josr Quevedo 08/27/2024 10:00 AM EST Office Visit Radiation Oncology at [address] [phone] Paradise Prado MD [facility] [place] [address] 2024 1:00 PM EDT Office Visit Cardiology at [address] [place] [address] Ham Montenegro MD [facility] [place] [address] Scheduled Procedures Name Priority Associated Diagnoses Date/Ti [...] on filedocumented in this encounter Care Teams Personal Injury Attorney Relationship Specialty Start Date End Date Gaudencio Scales DO [address] [place] [address] PCP - General Family Medicine 11/28/23 documented as of this encounter
--- OUTSIDE RECORDS SUMMARY | 2024-07-27 12:46 | XMS_ITS | Encounter Summary ---
Author Organization [facility] Address [facility] [place] [address] Care Team Providers Care Supervisor Records Change Name Role Phone Gaudencio Scales Antoine VERGARA Primary Care Provider [phone] Encounter Details Date Type Department Care Team (Latest Contact Info) Description 05/01/2024 Travel Social History Tobacco Use Types Packs/Day [...] from your doctor or pharmacy? Rarely 02/28/2024 [facility] Utilities Answer Date [...] any time in the past 12 m [facility], were you homeless or living in a [...] 8:40 AM EST Hospital Encounter [place] [phone] Jr Fulton MD [facility] [address] [place] [address] 07/30/2024 8:45 AM EST Appointment [place] [phone] Jr Fulton MD [facility] [place] [address] 07/30/2024 9:20 AM EST Hospital Encounter Mammography at [address]1000 Jr Fulton MD [facility] [place] [address] 07/30/2024 10:51 AM EST Hospital Encounter Outpatient Surgery Center [place] [phone] Jr Fulton MD [facility] [place] [address] 07/30/2024 10:51 AM EST Anesthesia Event Outpatient Surgery Center [address]1000 Megan Oron[place] [address] 07/30/2024 10:51 AM EST - 07/30/2024 1:11 PM EST Surgery Outpatient Surgery Center [address]1000 Jr Fulton MD [facility] [place] [address] MASTECTOMY PARTIAL (WRVU 10.13) 08/22/2024 2:00 PM EST Office Visit General Surgery at [address]1000 Cindy Pierce APRN [facility] [place] [address] 08/22/2024 3:00 PM EST Office Visit Hematology [place] [address] Soo Lyn MD [facility] [place] [address] 08/27/2024 9:30 AM EST Scheduled View Only Radiation Oncology at [address] [phone] [address] [place]es 08/27/2024 10:00 AM EST Office Visit Radiation Oncology at [address] [phone] Paradise Prado MD [facility] [place] [address] 2024 1:00 PM EDT Office Visit Cardiology at [address] [address] Ham Montenegro MD [facility] [place] [place] [address] Scheduled Procedures Name Priority Associated Diagnoses Date/Ti [...] on filedocumented in this encounter Care Teams Supervisor Records Change Relationship Specialty Start Date End Date aGudencio Scales DO [address] [place] [address] PCP - General Family Medicine 11/28/23 documented as of this encounter
--- OUTSIDE RECORDS SUMMARY | 2024-07-27 12:46 | XMS_ITS | Encounter Summary ---
Author Organization [facility] Address [facility] [place] [address] Care Team Providers Care Cloth Pattern Maker Name Role Phone Gaudencio Scales Primary Care Provider Reason for Visit * Reason Comments Medication Refill Encounter Details Date Type Department Care Team (Late st Contact Info) Description 04/25/2024 Refill Hematology [place] [phone] Tatiana Rosario APRN [facility] [place] [address] Social History Tobacco Use Types Packs/Day Years [...] from your doctor or pharmacy? Rarely 02/28/2024 [facility] Utilities Answer Date Recorded In the [...] place to sleep or slept in a care home (including now)? No 11/29/2023 Housing Stability [...] any time in the past 12 m [facility], were you homeless or living in a care home (including now)? No 02/28/2024 IPV Inpatient Questions [...] 8:40 AM EST Hospital Encounter Mammography at [facility] [place] [address] Jr Fulton MD [facility] [address] [place] [address] 07/30/2024 8:45 AM EST Appointment Mammography at [place] [address] Jr Fulton MD [facility] [place] [address] 07/30/2024 9:20 AM EST Hospital Encounter Mammography at [address]1000 Jr Fulton MD [facility] [place] [address] 07/30/2024 10:51 AM EST Hospital Encounter Outpatient Surgery Center [place] [address] Jr Fulton MD [facility] [place] [address] 07/30/2024 10:51 AM EST Anesthesia Event Out[facility] [place] [address] Megan Orona [place] [address] 07/30/2024 10:51 AM EST - 07/30/2024 1:11 PM EST Surgery Outpatient Surgery Center [address]1000 Jr Fulton MD [facility] [place] [address] MASTECTOMY PARTIAL (WRVU 10.13) 08/22/2024 2:00 PM EST Office Visit General Surgery at [address]1000 Cindy Pierce APRN [facility] [place] [address] 08/22/2024 3:00 PM EST Office Visit Hematology [place] [address] Soo Lyn MD [facility] [place] [address] 08/27/2024 9:30 AM EST Scheduled View Only Radiation Oncology at [address] [phone] Rad Nurse, St [place] 08/27/2024 10:00 AM EST Office Visit Radiation Oncology at [address] [phone] Paradise Prado MD [facility] [place] [address] 2024 1:00 PM EDT Office Visit Cardiology at [address] [place] [address] Ham Montenegro MD [facility] [place] [address] Scheduled Procedures Name Priority Associated Diagnoses Date/Ti [...] on filedocumented in this encounter Care Teams Cloth Pattern Maker Relationship Specialty Start Date End Date Gaudencio Scales DO [address] [place] [address] PCP - General Family Medicine 11/28/23 documented as of this encounter
--- OUTSIDE RECORDS SUMMARY | 2024-07-27 12:46 | XMS_ITS | Encounter Summary ---
Author Organization [facility] Address [facility] [place] [address] Care Team Providers Care Surg Rn Name Role Phone Gaudencio Scales Primary Care Provider [phone] Encounter Details Date Type Department Care Team (Late st Contact Info) Description 05/11/2024 Orders Only Hematology [place] [address] Paradise Contreras PA [facility] [place] [address] Malignant neoplasm of upper-outer quadrant of left [...] from your doctor or pharmacy? Rarely 02/28/2024 [facility] Utilities Answer Date Recorded In the [...] place to sleep or slept in a nursing home (including now)? No 11/29/2023 Housing Stability [...] any time in the past 12 m [facility], were you homeless or living in a nursing home (including now)? No 02/28/2024 DH IPV [...] Addendum Note - Paradise Contreras PA - 05/11/2024 10:35 AM EDTAddended by: PARADISE CONTRERAS on: 05/11/2024 01:58 PM Modules accepted: Orders documented in this encounter Plan of Treatment Upcoming Encounters Date Type Department Care Team (Latest Contact Info) Description 07/30/2024 8:40 AM EST Hospital En[place] [address] Jr Fulton MD [facility] [address] [place] [address] 07/30/2024 8:45 AM EST Appointment Mammography at [address] Jr Fulton MD [facility] [address] [place] [address] 07/30/2024 9:20 AM EST Hospital Encounter Mammography at [place] [phone] Jr Fulton MD [facility] [address] [place] [address] 07/30/2024 10:51 AM EST Hospital Encounter Outpatient Surgery Center [address] Jr Fulton MD [facility] [address] [place] [address] 07/30/2024 10:51 AM EST Anesthesia Event [place] [address] Megan Orona [place] [address] 07/30/2024 10:51 AM EST - 07/30/2024 1:11 PM EST Surgery Outpatient Surgery Center [place] [phone] Jr Fulton MD [facility] [place] [place] [address] MASTECTOMY PARTIAL (WRVU 10.13) 08/22/2024 2:00 PM EST Office [place] [phone] Cindy Pierce APRN [facility] [place] [address] 08/22/2024 3:00 PM EST Office Visit Hematology [place] [phone] Soo Lyn MD [facility] [place] [address] 08/27/2024 9:30 AM EST Scheduled View Only Radiation Oncology at [address] [phone] Rad Nurse, [facility] 08/27/2024 10:00 AM EST Office Visit Radiation Oncology at [address] [phone] 84 Paradise Prado MD [facility] [place] [address] 2024 1:00 PM EDT Office Visit Cardiology at [address] [place] [address] Ham Montenegro MD [facility] [place] [place] [address] Scheduled Procedures Name Priority Associated Diagnoses Date/Ti [...] medications documented in this encounter Care Teams Surg Rn Relationship Specialty Start Date End Date Gaudencio Scales DO [address] [place] [address] PCP - General Family Medicine 11/28/23 documented as of this encounter
--- OUTSIDE RECORDS SUMMARY | 2024-07-27 12:46 | XMS_ITS | Encounter Summary ---
Author Organization [facility] Address [facility] [place] [address] Care Team Providers Care Card Puncher Name Role Phone Gaudencio Scales Primary Care Provider [phone] Reason for Visit * Reason Comments Follow-up Encounter Details Date Type Department Care Team (Late st Contact Info) Description 04/17/2024 8:30 AM EDT Office Visit Hematology [place] [phone] Soo Lyn MD [facility] [place] [address] Malignant neoplasm of upper-outer quadrant of left [...] from your doctor or pharmacy? Rarely 02/28/2024 [facility] Utilities Answer Date Recorded In [...] any time in the past 12 m [facility], were you homeless or living in [...] Sign Reading Time Taken Comments Blood Pressure 121/93 04/17/2024 7:44 AM EDT Pulse 80 04/17/2024 7:44 AM EDT Temperature 36.6 ??C (97.9 ??F) 04/17/2024 7:44 AM ED T Respiratory Rate 18 04/17/2024 7:44 AM EDT Oxygen Saturation 98% 04/17/2024 7:44 AM EDT Inhaled Oxygen Concentration - - Weight 106.2 kg (234 lb 2.1 oz) 04/17/2024 7:44 AM EDT Height 165.6 cm (5' 5.2) 04/17/2024 7:44 AM EDT Body Mass Index 38.73 04/17/2024 7:44 AM EDT documented in this encounter Progress Notes * Soo Lyn MD - 04/17/2024 8:30 AM EDT Images from the original note were not included. [facility] Patient ID: Oksana Betancourt is a 58 y.o. female referred by Soo Lyn for consultation regarding breast cancer CC: breast cancer DIAGNOSIS: cT1 Nmi MX left breast cancer, triple negative PATH: ER/MO negative, HER2 unamplified and a CURRENT TX: 04/17/2024: Cycle 2 day 1 of carboplatin/docetaxel and pembrolizumab. Carboplatin dose increased to 5 AUC due to improvement tin renal functions. 03/28/2024: C1D1 of Carbo/Docetaxel/Pembrolizumab HPI and ONCOLOGIC HX: Oksana Betancourt is a 58 y.o. 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 She is also on Eliquis. She has a history of triple-vessel CAD status post staged PCI in [place] in March 2022 with CRIS x 1 to mid RCA, CRIS [...] TTE. Echocardiogram showing LVEF 44% and segmental wallmotion abnormality which are in the RCA distribution. No thrombus. 01/17/2024: Screening mammogram showing new 1.1 cm nodule in the upper outer quadrant of the left breast. 02/03/2024: Diagnostic mammogram showing nodular density in the upper outer quadrant of the left breast 7 cm from the nipple. Targeted ultrasound showing suspicious hypoechoic mass at 1 o'clock position of the left breast 7 cm from the nipple. Disc response to the mammographic abnormality. Sonographically benign-appearing lymph nodes seen in the left axilla. Diagnostic mammogram also showing additional left breast segmental abnormal increase in overall breast density spanning 7 cm with an area of architectural distortion and faint calcification positioned at 1-2 o'clock 5 cm from the nipple incompletely characterized by outside imaging. This is concerning for either multifocal disease or perhaps extensive DCIS. Prominent low axillary or intramammary lymph nodes are not completely evaluated by ultrasound. MRI is recommended. 02/10/2024: Left breast core needle biopsy showing invasive ductal carcinoma, high-grade measuring at least 7 mm, focus suspicious for lymphovascular invasion identified and focal ductal carcinoma in situ high-grade without comedonecrosis. ER/MO negative HER2 unamplified. 03/06/2024: Bilateral MRI showing left breast lesion #1 spiculated 1.5 cm mass in the upper outer quadrant at 1:00 radiant 7 cm from the nipple. Lesion #2 additional 1 cm well-circumscribed round enhancing mass in the posterior left upper outer breast at 1:00 radian 12.6 cm from the nipple. Right breast lesion no suspicious lesion was identified. 03/28/2024: D1C1 of Carbo (AUC 4.5 due to renal dysfunction)/Paclitaxel and pembrolizumab 03/26/2024: Left breast lesion #2 biopsy was performed. Isolated focus of metastatic deposit of <1mm 03/28/2024: Cycle 1 day 1 of carboplatin/docetaxel and pembrolizumab. Carboplatin dose reduced to 4.5 AUC due to JOHN. 04/17/2024: Cycle 2 day 1 of carboplatin/docetaxel and pembrolizumab. Carboplatin dose increased to 5 AUC due to improvement tin renal functions. Risk Factors: history: A1, boy and girl Age at delivery of first child: 16 OCP use: Yes Age at menarche: 12 Age at menopause: Hysterectomy 20+ years ago (for fibroids) HRT use: Never Family history: Half sister from breast cancer at the age of 46. Prior breast biopsies: no Interval History: Oksana is here for follow-up. Her brother dropped her off. He will pick her up when she is done with the chemotherapy. She is overall doing okay. She tolerated the first cycle rather well. She did have nausea and dry heaving for few days. Zofran works better than Compazine. She vomited couple of times but the vomitus was not much. She did have poor p.o. intake initially and very little fluid intake. However it is improved now. Her appetite is returning. Her weight is more or less stable. She denies any mouth sores. She noted increased hair fall therefore she shaved her head off. She also noted a rash on the right side of her neck that was itchy that appeared more like a sunburn. He was using Aveeno lotion. She was out in the sun and was sitting in the sun daily. She also hassome dryness. The rash and dryness has resolved. For last 1 week he has noted some dryness and itching in the finger webs of her hands more so on the right side. Does not itch at baseline however when she started itching it never stopped. She denies any urinary problem. She had diarrhea in the beginning and used Imodium for 3 days 1-2 times a day. Review of Systems 10 point review system is negative other than HPI PAST MEDICAL HISTORY: No past medical history on file. Past Surgical History: Procedure Laterality Date IR MEDIPORT PLACEMENT 03/23/2024 IR Mediport Placement 03/23/2024 Cely Schmitt PA [facility] INTERVENTIONL RAD MAMMO US BIOPSY LEFT Left 03/26/2024 Mammo Us Biopsy Left 03/26/2024 Ana Weber MD [facility] RAD MAMMOGRAPHY Patient Active Problem List Diagnosis Code NSTEMI (non-ST elevated myocardial infarction) I21.4 Malignant neoplasm of upper-outer quadrant of left breast in female, estrogen receptor negative C50.412, Z17.1 MEDICATIONS: Current Outpatient Medications: ondansetron (Zofran) 8 mg tablet, Take 1 tablet by mouth every 8 hours as needed for Nausea., Disp:60 tablet, Rfl: 0 diphenhydrAMINE/aluminum-magnesium hydroxide with simethicone/lidocaine (BMX) (6.67 mg-0.83 mg-13.33 mg-1.33 mg/mL) oral liquid, Take 20-30 mLs by mouth every 4 hours as needed., Disp: 240 mL, Rfl: 3 dexAMETHasone (Decadron) 4 mg tablet, Take 1 tablet by mouth daily. Take on days 2-4 for each chemotherapy cycle, Disp: 20 tablet, Rfl: 0 prochlorperazine (Compazine) 10 mg tablet, Take 1 tablet by mouth every 6 hours as needed for Nausea., Disp: 30 tablet, Rfl: 3 QUEtiapine (SEROquel) 50 mg tablet, Take 1 tablet by mouth nightly. In addition to 100 mg tab. May take up to 200 mg HS if needed for sleep., Disp: 60 tablet, Rfl: 0 multivitamin (THERAGRAN) Tablet, Take 1 tablet by mouth daily., Disp: , Rfl: iron,carb/vit C/vit B12/folic (IRON 100 PLUS ORAL), Take by mouth., Disp: , Rfl: atorvastatin (Lipitor) 80 mg tablet, Take 1 tablet by mouth Daily at Noon., Disp: 90 tablet, Rfl: 3 clopidogreL (Plavix) 75 mg tablet, Take 1 tablet by mouth daily., Disp: 90 tablet, Rfl: 3 ipratropium-albuteroL (Duoneb) 0.5 mg-3 mg(2.5 mg base)/3 mL Solution for Nebulization, Take 0.5 mgby nebulization every 4 hours., Disp: 1 each, Rfl: 4 metoprolol succinate XL (Toprol-XL) 50 mg ER 24 hr tablet, Take 1 tablet by mouth 2 times daily., Disp: 30 tablet, Rfl: 12 apixaban (Eliquis) 5 mg tablet, Take 5 mg by mouth 2 times daily., Disp: , Rfl: baclofen (Lioresal) 10 mg tablet, Take 0.5 tablets by mouth 2 times daily., Disp: , Rfl: lamoTRIgine (LaMICtal) 100 mg tablet, Take 1 tablet by mouth 2 times daily., Disp: , Rfl: oxyCODONE-acetaminophen (Percocet) 10-325 mg tablet, Take 1 tablet by mouth every 8 hours as needed., Disp: , Rfl: QUEtiapine (SEROquel) 100 mg tablet, Take 100 mg by mouth nightly., Disp: , Rfl: levothyroxine (Synthroid) 100 mcg tablet, Take 100 mcg by mouth., Disp: , Rfl: omeprazole (PRILOSEC) 20 mg capsule, 20M Capsule(s), PO, Once daily, Disp: , Rfl: nitroGLYcerin (Nitrostat) 0.4 mg sublingual tablet, Place 1 tablet under the tongue every 5 minutesas needed for Chest pain. (Patient not taking: Reported on 03/28/2024), Disp: 90 tablet, Rfl: 12 furosemide (Lasix) 20 mg tablet, Take 1 tablet by mouth daily as needed (weight gain, SOB, volume overload). (Patient not taking: Reported on 03/28/2024), Disp: 90 tablet, Rfl: 1 No current facility-administered medications for this visit. Facility-Administered Medications Ordered in Other Visits: sodium chloride 0.9 % (flush) (BD PosiFlush Normal Saline 0.9) flush 5-20 mL, 5- 20 mL, Intravenous,Q1 Min PRN, Soo Lyn MD ALLERGIES: No Known Allergies SOCIAL HISTORY: Social History Socioeconomic History Marital status: Declines [...] date: 11/17/1981 Quit date: 11/17/2021 Years since quittin.4 Smokeless tobacco: Never Substance and Sexual Activity Alcohol use: Not Currently Drug use: Never Sexual activity: Defer Other Topics Concern Not on file Social History Narrative Not on file Social Determinants of Health Financial Resource Strain: Medium Risk (03/14/2024) Overall Financial Resource Strain (CARDIA) Difficulty of Paying Living Expenses: Somewhat hard Food Insecurity: Unknown (02/28/2024) Hunger Vital Sign Worried About Running Out of Food in the Last Year: Never true Ran Out of Food in the Last Year: Patient declined Transportation Needs: No Transportation Needs (02/28/2024) PRAPARE - Transportation Lack of Transportation (Medical): No Lack of Transportation (Non-Medical): No Physical Activity: Not on file Intimate Partner Violence: Not At Risk (11/28/2023) IPV Inpatient Questions Prevent Contact with Others: no Feels Threatened by Someone: no Feels Unsafe at Home: no Physical Signs of Abuse Present: no Housing Stability: Low Risk (02/28/2024) Housing Stability Vital Sign Unable to Pay for Housing in the Last Year: No Number of Times Moved in the Last Year: 0 Homeless in the Last Year: No Used to smoke 1 ppd 20+ years Does no drink Does not take any there drugs Lives alone Used to live in [place] Does not work She worked for [employer] FAMILY HISTORY: Family History Problem Relation Age of Onset Skin Cancer Father Cancer Maternal Grandmother suspected, unsure primary Cancer Paternal Grandmother unsure primary Breast Cancer Paternal Half-Sister 46 of same at age 46 Cancer Maternal Uncle suspected, unsure primary Ovarian Cancer Neg Hx Objective: Physical Exam Body surface area is 2.21 meters squared. Wt Readings from Last 3 Encounters: 04/17/24 106.2 kg (234 lb 2.1 oz) 03/28/24 105.7 kg (233 lb 0.4 oz) 03/14/24 106.2 kg (234 lb 2.1 oz) ECOG PS: 0 VS: Constitutional: She is oriented to person, place, and time. She appears well- developed and well-nourished. In emotional stress and tearful. HENT: Nose: Nose normal. Mouth/Throat: Oropharynx is clear and moist. Eyes: Conjunctivae are normal. No scleral icterus. Neck: Neck supple. No thyromegaly present. Cardiovascular: Normal rate, regular rhythm, No murmur heard. Pulmonary/Chest: Effort normal and breath sounds normal. She has no wheezes. Breast: Right breast exhibits no inverted nipple, no mass, no nipple discharge and no skin change. Left breast exhibits deep palpable mass in the deep planes without distinct edges at 1 o'clock position slightly tender to touch. Left axillary mass not palpable. Biopsy site healing well. Abdominal: Soft. She exhibits no distension. There is no tenderness. There is no guarding. Musculoskeletal: Normal range of motion. She exhibits no edema or tenderness. Lymphadenopathy: She has no cervical adenopathy. Neurological: She is alert and oriented to person, place, and time. Skin: Skin is warm and dry. No rash noted. No erythema. Psychiatric: She has a normal mood and affect. Her behavior is normal. LABORATORY TESTS: Recent Results (from the past 24 hour(s)) T4, free Result Value Ref Range Free T4 1.24 0.93 - 1.70 ng/dL TSH Result Value Ref Range TSH 3.58 0.27 - 4.20 mcIU/mL Comprehensive metabolic panel (non-fasting) Result Value Ref Range Glucose Lvl 109 65 - 199 mg/dL BUN 21 (H) 8 - 18 mg/dL Creatinine 1.36 (H) 0.70 - 1.20 mg/dL Sodium 142 135 - 145 mmol/L Potassium 4.5 3.5 - 5.0 mmol/L Chloride 106 98 - 107 mmol/L CO2 25 22 - 31 mmol/L Anion Gap 11 5 - 15 mmol/L Calcium 9.3 8.5 - 10.5 mg/dL Total Protein 6.3 6.1 - 8.0 g/dL Albumin 3.8 3.2 - 5.2 g/dL AST 18 0 - 30 unit/L ALT 16 0 - 30 unit/L Alk Phos 145 (H) 35 - 105 unit/L Total Bilirubin 0.2 0.2 - 1.3 mg/dL Estimated GFR 45 (L) >=60 mL/min/1.73 m?? Hemogram Result Value Ref Range WBC 13.0 (H) 4.0 - 9.5 x10(3)/mcL RBC 3.53 (L) 4.00 - 5.21 x10(6)/mcL Hemoglobin 10.7 (L) 11.7 - 15.5 g/dL Hematocrit 33.1 (L) 35.7 - 45.8 % MCV 93.8 82.6 - 94.4 fL MCH 30.3 27.1 - 32.0 pg MCHC 32.3 31.7 - 35.0 g/dL Platelets 511 (H) 145 - 357 x10(3)/mcL RDWSD 55.1 (H) 37.0 - 46.0 fL RDWCV 16.4 (H) 11.5 - 14.1 % MPV 11.0 7.6 - 12.9 fL nRBC % Auto 0.0 % nRBC Abs Auto 0.000 0.000 - 0.000 x10(3)/mcL Differential, Automated Result Value Ref Range Neutrophils % 66.5 % Neutr Abs (ANC) 8.64 (H) 1.70 - 6.10 x10(3)/mcL Lymphocytes % 22.5 % Lymphocytes Abs 2.9 0.9 - 3.2 x10(3)/mcL Monocytes % 8.5 % Monocyte Abs 1.1 (H) 0.3 - 0.9 x10(3)/mcL Eosinophils % 1.4 % Eosinophils Abs 0.2 0.0 - 0.4 x10(3)/mcL Basophils % 0.9 % Basophils Abs 0.1 0.0 - 0.1 x10(3)/mcL Immature Gran % 0.20 % Annia Gran Abs 0.03 0.00 - 0.04 x10(3)/mcL Labs reviewed from past. She has repeat labs pending on 03/06/2024. IMAGING: I personally reviewed the images as reported above Assessment and Plan: Oksana Betancourt is a 58 y.o. female milligram located past medical history of CKD stage III, bipolar disorder, COPD, hypothyroidism and non-STEMI as well as heart failure is diagnosed with triple negative breast cancer. #1 Breast cancer -- cT1c NmiMx left breast triple negative cancer grade 3. She also has a lesion #2in the axillary tail of the size of 1 cm in the left breast that was biopsied on 03/26/2024. Biopsy showed less than 1 mm metastatic deposit in the axillary tail lymph node. I started her on docetaxel/c arboplatin/pembrolizumab. Decrease the dose of carboplatin to AUC of 4.5 due to decreased creatinine clearance. She tolerated cycle 1 rather well except mild side effects. Her serum creatinine is 1.27 today with a creatinine clearance of 75. I increased the dose of carboplatin to AUC of 5. I think I will keep her on AUC of 5 unless she developed worsening kidney functions. Plan to do 6 cycles of docetaxel/carboplatin/pembrolizumab. She will resume her subsequent chemotherapy at [facility]. #2 Chemotherapy/Clinical trial --proceed with cycle number 2-day 1 of docetaxel/carboplatin/pembrolizumab. Carboplatin dose to AUC of 5. Plan for 6 cycles of chemoimmunotherapy followed by surgery. #3 Fatigue --none #4 Menopausal symptoms --none #5 Bone health --no history of osteopenia or osteoporosis #6 Medication management --carboplatin AUC of 5. No other change. Tolerated overall well. #7 Genetics--referred #8 anxiety and depression-she is Seroquel. I have referred her to [facility] psychiatry. Increase the doseof Seroquel to 150 mg nightly and Lamictal. Citalopram was discontinued. #9 recent history of NSTEMI requiring stent placement on Plavix. Per cardiology okay to hold antiplatelet therapy on surgery. Potential Clinical Trials: -N/A Plan Summary and Follow up: -Proceed with cycle number 2-day 1 of carboplatin/docetaxel/pembrolizumab. Carboplatin dose increased to 5 AUC with G-CSF support. - Continue Lamictal and Seroquel per psychiatry - She will use topical emollient and Sarna lotion for her hand. I advised her against spending muchtime in the sun to prevent docetaxel associated skin rash - She will resume her chemotherapy at [facility] under the care of Dr. Santacruz. I will be available to see her in future when needed. David Lyn MD, MS Medical Oncology Comprehensive Breast Oncology Program Page # [phone] 04/17/24, 8:49 AM [facility] documented in this encounter Plan of Treatment Upcoming Encounters Date Type Department Care Team (Latest Contact Info) Description 07/30/2024 8:40 AM EST Hospital Encounter [place] [phone] Jr Fulton MD [facility] [address] [place] [address] 07/30/2024 8:45 AM EST Appointment [place] [phone] Jr Fulton MD [facility] [place] [place] [address] 07/30/2024 9:20 AM EST Hospital Encounter Mammography at [address] Jr Fulton MD [facility] [place] [address] 07/30/2024 10:51 AM EST Hospital Encounter Out[facility] [place] [address] Jr Fulton MD [facility] [place] [address] 07/30/2024 10:51 AM EST Anesthesia Event [facility] [place] [address] Megan Oron[place] [address] 07/30/2024 10:51 AM EST - 07/30/2024 1:11 PM EST Surgery [facility] [place] [address] Jr Fulton MD [facility] [place] [address] MASTECTOMY PARTIAL (WRVU 10.13) 08/22/2024 2:00 PM EST Office Visit General Surgery at [place] [address] Cindy Pierce APRN [facility] [place] [address] 08/22/2024 3:00 PM EST Office Visit Hematology and Oncology at [address] Soo Lyn MD [facility] [place] [address] 08/27/2024 9:30 AM EST Scheduled View Only Radiation Oncology at [address] [phone] [address] [facility] 08/27/2024 10:00 AM EST Office Visit Radiation Oncology at [address] [phone] Paradise Prado MD [facility] [place] [address] 2024 1:00 PM EDT Office Visit Cardiology at [address] [place] [phone] Ham Montenegro MD [facility] [place] [address] Scheduled Procedures Name Priority Associated Diagnoses Date/Ti [...] negative documented in this encounter Care Teams Card Puncher Relationship Specialty Start Date End Date Gaudencio Scales DO [address] [place] [address] PCP - General Family Medicine 11/28/23 documented as of this encounter
--- OUTSIDE RECORDS SUMMARY | 2024-07-27 12:46 | XMS_ITS | Encounter Summary ---
Author Organization [facility] Address [facility] [place] [address] Care Team Providers Care Manager Video Games Name Role Phone Gaudencio Scales Primary Care Provider [phone] Reason for Visit * Reason Comments Chemotherapy * Treatment/Therapy Plan Authorization (Routine) - Pending [...] FOSAPREPITANT, 1MG, INJECTION (EMEND) Soo Lyn MD [facility] [place] [address] [facility] [address] [place] [address] Referral ID Status Reason Start Date Expiration Date V isits Requested Visits Authorized [id number] Pending Review 03/14/2024 03/14/2025 99 101 Encounter Details Date Type Department Care Team (Late st Contact Info) Description 05/08/2024 9:00 AM EDT Infusion Hematology Oncology at [address] [address] Malignant neoplasm of upper-outer quadrant of left [...] from your doctor or pharmacy? Rarely 02/28/2024 [facility] Utilities Answer Date Recorded In the [...] Sign Reading Time Taken Comments Blood Pressure 153/52 05/08/2024 8:52 AM EDT Pulse 98 05/08/2024 8:52 AM EDT Temperature 36.2 ??C (97.1 ??F) 05/08/2024 8:52 AM ED T Respiratory Rate 18 05/08/2024 8:52 AM EDT Oxygen Saturation 97% 05/08/2024 8:52 AM EDT Inhaled Oxygen Concentration - - Weight 104.1 kg (229 lb 6.4 oz) 05/08/2024 8:52 AM EDT Height 165.6 cm (5' 5.2) 05/08/2024 8:52 AM EDT Body Mass Index 37.94 05/08/2024 8:52 AM EDT documented in this encounter Progress Notes * Addie Kapoor RN - 05/08/2024 9:00 AM EDT Patient Name: Oksana Betancourt Patient Age: 58 y.o. Birthdate: 1965 Admit date: (Not on file) Attending Physician: No att. providers found Oksana Betancourt, 58 y.o. female with diagnosis of breast cancer is here for chemotherapy infusion of pembrolizumab, docetaxel, and carboplatin with Onpro application. CYCLE: 3 DAY: 1 S: Pt has no complaints today. States she was not feeling well yesterday and why she cancelled her televisit, but was feeling fine today. O: Chemotherapy orders independently verified for correct drug name, route and dosage per patient'sheight, weight and BSA by Addie Kapoor, RN and onsite pharmacist. REACTIONS (DESCRIPTION, TIME, INTERVENTION AND EFFECTIVENESS) NA A: Pt. Tolerated treatment well. Oksana Schultz Marksariah confirms that all questions and issues have been addressed. P: Return to clinic as advised. documented in this encounter Plan of Treatment Upcoming Encounters Date Type Department Care Team (Latest Contact Info) Description 07/30/2024 8:40 AM EST Hospital Encounter Mammography at [place] [phone] Jr Fulton MD [facility] [place] [address] 07/30/2024 8:45 AM EST [place] [address] Jr Fulton MD [facility] [place] [address] 07/30/2024 9:20 AM EST Hospital Encounter Mammography at [place] [phone] Jr Fulton MD [facility] [place] [address] 07/30/2024 10:51 AM EST Hospital Encounter Outpatient Surgery Center [place] [phone] Jr Fulton MD [facility] [place] [address] 07/30/2024 10:51 AM EST Anesthesia Event [place] [phone] Megan Orona [place] [address] 07/30/2024 10:51 AM EST - 07/30/2024 1:11 PM EST Surgery Outpatient Surgery [facility] [place] [address] Jr Fulton MD [facility] [place] [address] MASTECTOMY PARTIAL (WRVU 10.13) 08/22/2024 2:00 PM EST Office Visit General Surgery at [address] Cindy Pierce APRN [facility] [place] [address] 08/22/2024 3:00 PM EST Office Visit Hematology and Oncology at [place] [phone] Soo Lyn MD [facility] [place] [address] 08/27/2024 9:30 AM EST Scheduled View Only Radiation Oncology at [address] [phone] St Josr Whitley 08/27/2024 10:00 AM EST Office Visit Radiation Oncology at [address] [phone] Paradise Prado MD [facility] [place] [address] 2024 1:00 PM EDT Office Visit Cardiology at [address] [place] [address] Ham Montenegro MD [facility] [place] [address] Scheduled Procedures Name Priority Associated Diagnoses Date/Ti [...] Action Date Dose Rate Site CARBOplatin (Paraplatin) 483 mg in dextrose 5% 298.3 mL infusion 483 mg (Target AUC = 5), Intravenous, ONCE, 1 dose, On Tue05/08/24 at 1015, Administer over 30 Minutes, Warning Vesicant/Irritant Medication New Bag 05/08/2024 12:00 PM EDT 483 mg 596.6 mL/hr dexAMETHasone (Decadron) (10 mg/mL) injection 10 mg 10 mg, Intravenous, ONCE, 1 dose, On Tue05/08/24 at 0915, Administer 60 minutes prior to DOCEtaxeL Given 05/08/2024 9:20 AM EDT 10 mg diphenhydrAMINE (Benadryl) capsule 50 mg 50 mg, Oral, ONCE, 1 dose, On Tue05/08/24 at 0915, Administer 60 minutes prior to DOCEtaxeL, Routine Given 05/08/2024 9:18 AM EDT 50 mg DOCEtaxeL (Taxotere) 160 mg in sodium chloride 0.9% Non-PVC 258 mL infusion 160 mg (rounded from 165.75 mg = 75 mg/m2/dose ? 2.21 m2 Treatment Plan BSA from Recorded weight), Intravenous, ONCE, 1 dose, On Tue05/08/24 at 1015, Administer over 60 Minutes, Warning Vesicant/Irritant Medication , Should this infusion continue 3 Step Titration (Initial Dosing) or Standard Infusion? Maintenance: Standard Infusion Time New Bag 05/08/2024 10:46 AM EDT 160 mg 258 mL/hr famotidine (Pepcid) (10 mg/mL) injection 20 mg 20 mg, Intravenous, ONCE, 1 dose, On Tue05/08/24 at 0915, Administer 60 minutes prior to DOCEtaxeL Given 05/08/2024 9:20 AM EDT 20 mg fosaprepitant (Emend) 150 mg in sodium chloride 0.9% 255 mL infusion 150 mg, Intravenous, at 510 mL/hr, Administer over 30 Minutes, ONCE, 1 dose, On Tue05/08/24 at 0945, Routine, Fosaprepitant IV is restricted for use only for pediatric patients, patients, and when insurance requires its use. For all other populations, please order aprepitant IV (Cinvanti). Which category does your patient fall into? Insurance Required New Bag 05/08/2024 9:33 AM EDT 150 mg 510 mL/hr palonosetron (Aloxi) (0.05 mg/mL) injection 0.25 mg 0.25 mg, Intravenous, ONCE, 1 dose, On Tue05/08/24 at 0915, Administer over 30 seconds., Routine Given 05/08/2024 9:20 AM EDT 0.25 mg pegfilgrastim (Neulasta Onpro) (6 mg/0.6 mL) injection kit 6 mg 6 mg, Subcutaneous, ONCE, 1 dose, On Tue05/08/24 at 0915, Allow the prefilled syringe co-packaged with the on-body injector to reach room temperature at least 30 minutes prior to administration., Routine, This agent is restricted to outpatient use. Is this drug being given as an outpatient? Yes Given 05/08/2024 12:16 PM EDT 6 mg Right Upper Outer Quadrant pembrolizumab (Keytruda) 200 mg in sodium chloride 0.9% 108 mL infusion 200 mg, Intravenous, ONCE, 1 dose, On Tue05/08/24 at 1015, Administer over 30 Minutes, Flush Line with NS after each dose, This agent is restricted to outpatient use. Is this drug being given as an outpatient? Yes New Bag 05/08/2024 10:09 AM EDT 200 mg 216 mL/hr sodium chloride 0.9 % (flush) (BD PosiFlush Normal Saline 0.9) flush 5-20 mL 5-20 mL, Intravenous, EVERY 1 MIN PRN, Starting on Tue05/08/24 at 1327, Until Tue05/08/24 at 1530, Line Care, Flush pertains to all indwelling lines. Flush per protocol found in the job aid using the link provided on this medication record. Refer to Intravenous (IV) Job Aid: Adult Flushing & Catheter Care (2253) job aid for additional information regarding guidelines and administration., Routine Given 05/08/2024 12:30 PM EDT 20 mLs documented in this encounter Care Teams Manager Video Games Relationship Specialty Start Date End Date Gaudencio Scales DO [address] [place] [address] PCP - General Family Medicine 11/28/23 documented as of this encounter
--- OUTSIDE RECORDS SUMMARY | 2024-07-27 12:46 | XMS_ITS | Encounter Summary ---
Author Organization [facility] Address [place] [address] Care Team Providers Care File Machine Operator Name Role Phone Gaudencio Scales Antoine VERGARA Primary Care Provider [phone] Encounter Details Date Type Department Care Team (Late st Contact Info) Description 05/29/2024 Telephone Cardiology at [address] [phone] Lukas Lanier MD [facility] [place] [address] Social History Tobacco Use Types Packs/Day Years [...] from your doctor or pharmacy? Rarely 05/29/2024 [facility] Utilities Answer Date Recorded In the past 12 months has [employer], gas, oil, or water [employer] threatened to shut off services in your [...] place to sleep or slept in a longterm (including now)? No 11/29/2023 Housing Stability Vital [...] were you homeless or living in a longterm (including now)? No 05/29/2024 [facility] IPV Inpatient [...] encounter Miscellaneous Notes * Telephone Encounter - Lukas Lanier MD - 05/29/2024 5:34 PM EDT Images from the original note were not included. Initial Contact Date: 05/29/24 5:34 PM Referring Provider: Trev Patient Location: [facility] HPI: Oksana Betancourt is a 58 y.o. female with history notable for hodgkin lymphoma, NSTEMI on DAPT, COPD, triple negative breast cancer on carboplatin/docetaxel and pembro who presents to [facility] with CP and SOB with abrupt onset. She has no other symptoms recently, no volume overload, no exertional chestpain. In the ED, she was wheezing and was given steroids and duonebs. With B lines on ultrasound, she was given lasix and started on bipap with 800cc of UOP, now on 4L NC. Has a troponin 1100-->963 (ULN 51). CP much improved. I have advised additional diuresis but no ACS therapy at this time given downtrending troponin. I suspect that her troponin elevation is due to demand given the downtrending nature though recurrent chest pain or reversal of this troponin trajectory would change this recommendation. I suspect this was all flash pulmonary edema and diuresis and time will be more important. The OSH feels very uncomfortable given her prior cardiac history and requests transfer for repeat echocardiogram and medication management. Above recommendations were based on my discussion with Dr. Karimi; I have not personally interviewedor examined this patient. This does not represent a formal consultation as it is not staffed with an attending Motorcycle Designer. Advised to call the transfer center back with any changes in the patient condition. Lukas Lanier MD [employer] [id number] Update 05/30/24 10:45AM - unable to accept 05/30/24 due to bed availability. Reconnected with OSH team for updates on patients status. Has been taken off of BiPAP now on RA as of this morning. Troponinremains elevated but flat trend. Continuing with IV diuresis and plan for formal TTE today. Agreeable for transfer now slated on 05/31/24. documented in this encounter Plan of Treatment Upcoming Encounters Date Type Department Care Team (Latest Contact Info) Description 07/30/2024 8:40 AM EST Hospital [place] [address] Jr Fulton MD [facility] [address] [place] [address] 07/30/2024 8:45 AM EST Appointment Mammography at [place] [phone] Jr Fulton MD [facility] [place] [address] 07/30/2024 9:20 AM EST Hospital Encounter Mammography at [address] Jr Fulton MD [facility] [place] [address] 07/30/2024 10:51 AM EST Hospital Encounter Outpatient [place] [address] Jr Fulton MD [facility] [place] [address] 07/30/2024 10:51 AM EST Anesthesia Event Outpatient Surgery [facility] [place] [phone] Megan Orona [place] [address] 07/30/2024 10:51 AM EST - 07/30/2024 1:11 PM EST Surgery Outpatient Surgery [facility] [place] [phone] Jr Fulton MD [facility] [place] [address] MASTECTOMY PARTIAL (WRVU 10.13) 08/22/2024 2:00 PM EST Office [place] [address] Cindy Pierce APRN [facility] [place] [address] 08/22/2024 3:00 PM EST Office Visit Hematology [place] [address] Soo Lyn MD [facility] [place] [address] 08/27/2024 9:30 AM EST Scheduled View Only Radiation Oncology at [address] [phone] Rad Nurse, [facility] 08/27/2024 10:00 AM EST Office Visit Radiation Oncology at [address] [phone] Paradise Prado MD [facility] [place] [address] 2024 1:00 PM EDT Office Visit Cardiology at [address] [place] [phone] Ham Montenegro MD [facility] [place] [place] [address] Scheduled Procedures Name Priority Associated Diagnoses Date/Ti [...] on filedocumented in this encounter Care Teams File Machine Operator Relationship Specialty Start Date End Date Gaudencio Scales DO [address] [place] [address] PCP - General Family Medicine 11/28/23 documented as of this encounter
--- OUTSIDE RECORDS SUMMARY | 2024-07-27 12:46 | XMS_ITS | Encounter Summary ---
Author Organization [facility] Address [facility] [place] [address] Care Team Providers Care Small Piece Cutter Name Role Phone Gaudencio Scales Primary Care Provider [phone] Encounter Details Date Type Department Care Team (Late st Contact Info) Description 04/25/2024 Orders Only Hematology [place] [address] Paradise Contreras PA [facility] [place] [address] Malignant neoplasm of upper-outer quadrant of left [...] your doctor or pharmacy? Rarely 02/28/2024 [facility] Utilities Answer Date Recorded In [...] any time in the past 12 m [facility], were you homeless or living [...] 8:40 AM EST Hospital Encounter [place] [address] Jr Fulton MD [facility] [address] [place] [address] 07/30/2024 8:45 AM EST Appointment Mammography at [place] [address] Jr Fulton MD [facility] [place] [address] 07/30/2024 9:20 AM EST Hospital Encounter Mammography at [place] [address] Jr Fulton MD [facility] [place] [address] 07/30/2024 10:51 AM EST Hospital Encounter Outpatient Surgery Center [place] [address] Jr Fulton MD [facility] [place] [address] 07/30/2024 10:51 AM EST Anesthesia Event Out[facility] [place] [address] Megan Orona [place] [address] 07/30/2024 10:51 AM EST - 07/30/2024 1:11 PM EST Surgery Outpatient [facility] [place] [address] Jr Fulton MD [facility] [place] [address] MASTECTOMY PARTIAL (WRVU 10.13) 08/22/2024 2:00 PM EST Office Visit General Surgery at [place] [address] Cindy Pierce APRN [facility] [place] [address] 08/22/2024 3:00 PM EST Office Visit Hematology [place] [address] Soo Lyn MD [facility] [place] [address] 08/27/2024 9:30 AM EST Scheduled View Only Radiation Oncology at [address] [phone] Rad Nurse, [facility] [place] 08/27/2024 10:00 AM EST Office Visit Radiation Oncology at [address] [phone] Paradise Prado MD [facility] [place] [address] 2024 1:00 PM EDT Office Visit Cardiology at [address] [place] [address] Hma Montenegro MD [facility] [place] [address] Scheduled Procedures Name Priority Associated Diagnoses Date/Ti [...] medications documented in this encounter Care Teams Small Piece Cutter Relationship Specialty Start Date End Date Gaudencio Scales DO [address] [place] [address] PCP - General Family Medicine 11/28/23 documented as of this encounter
--- OUTSIDE RECORDS SUMMARY | 2024-07-27 12:46 | XMS_ITS | Encounter Summary ---
Author Organization Count Includes [facility] Address [facility] [place] [address] Care Team Providers Care Radio Station Manager Name Role Phone Gaudencio Scales Primary Care Provider [phone] Encounter Details Date Type Department Care Team (Late st Contact Info) Description 05/29/2024 9:30 AM EDT Office Visit Hematology/Oncology at [address] [phone] Roseanna Santacruz MD Perreault, Alexandra H APPAREL SALES LEADER [address] [place] [address] MEDICAL ONCOLOGY [place], [place] [id number] Infusion reaction, initial encounter; Malignant neoplasm of upper-outer quadrant of left breast in female, estrogen receptor negative; Triple negative breast cancer Social History Tobacco Use Types Packs/Day Years [...] from your doctor or pharmacy? Rarely 05/29/2024 C Utilities Answer Date Recorded In the past [...] living in a snf (including now)? No 05/29/2024 DH IPV Inpatient [...] Sign Reading Time Taken Comments Blood Pressure 121/62 05/29/2024 9:38 AM EDT Pulse 109 05/29/2024 9:31 AM EDT Temperature 36.2 ??C (97.1 ??F) 05/29/2024 9:31 AM ED T Respiratory Rate 18 05/29/2024 9:31 AM EDT Oxygen Saturation 100% 05/29/2024 9:31 AM EDT Inhaled Oxygen Concentration - - Weight 102.5 kg (226 lb) 05/29/2024 9:31 AM EDT Height 163.3 cm (5' 4.29) 05/29/2024 9:31 AM ED T Body Mass Index 38.44 05/29/2024 9:31 AM EDT documented in this encounter Progress Notes * Roseanna Santacruz MD - 05/29/2024 9:30 AM EDT Images from the original note were not included. [facility] Patient ID: Oksana Betancourt is a 58 y.o. female referred by Dr. David Lyn for Cycle 4 Day 1 of Neoadjuvant Docetaxel/carboplatin and Pembrolizumab CC: LEFT TNBC DIAGNOSIS: cT1c N1mic Mx left breast cancer, triple negative PATH: ER/SD negative, HER2 unamplified CURRENT TX: 05/29/2024: Cycle 4 day 1 of neoadjuvant carboplatin/docetaxel and pembrolizumab. Carboplatin dose increased to 5 AUC due to improvement tin renal functions. 03/28/2024: C1D1 of Carbo/Docetaxel/Pembrolizumab HPI and ONCOLOGIC HX: Per Dr Lyn's notes: Oksana Betancourt is a 58 y.o. female who has a history of hodgkin lymphoma about 35 years ago and treated with radiation therapy, NSTEMI in November 2023 who is currently on Plavix and took aspirin for 1 month. She is also on Eliquis. She has a history of triple-vessel CAD status post staged PCI in [place] in March 2022 with CRIS x 1 to mid RCA, CRIS x 2 to ostial RCA, CRIS x 1 to ostial left circumflexand CRIS x 1 to mid left circumflex, severe aortic stenosis status post TAVR in 2021, baseline LBBB,hyperlipidemia and hypertension, CKD stage IIIb, bipolar disorder, [...] ductal carcinoma in situ high-grade without comedonecrosis. ER/SD negative HER2 unamplified. 03/06/2024: Bilateral MRI showing left breast lesion #1 spiculated 1.5 cm mass in the upper outer quadrant at 1:00 radiant 7 cm from the nipple. Lesion #2 additional 1 cm well-circumscribed round enhancing mass in the posterior left upper outer breast at 1:00 radian 12.6 cm from the nipple. Right breast lesion no suspicious lesion was identified. Lymph Node Basins/Other: There is no evidence of internal mammary or axillary adenopathy. No significant abnormalities are seen in the chest wall or skin. 03/28/2024: D1C1 of Carbo (AUC 4.5 due [...] AUC due to improvement tin renal functions. Today is Cycle 4 day 1 of carboplatin/docetaxel and pembrolizumab. Risk Factors: history: A1, boy and girl Age at delivery of first child: 16 OCP use: Yes Age at menarche: 12 Age at menopause: Hysterectomy 20+ years ago (for fibroids) HRT use: Never Family history: Half sister from breast cancer at the age of 46. Prior breast biopsies: no Interval History: Oksana is here for follow up at [facility] today, She had received 3 cycles at [facility] - she endorsed that [facility] is closer to home #Breast concerns: none - doesn't know of the mass is getting better #N/V: this morning feels nauseous, finds zofran helpful #Cough: bouts of productive cough, clear secretions that turns yellow and provokes her vomiting #Fever, chills, sore throat: none S/S of infection after last cycle #Fatigue: taking lots of naps, her activity level improves by third week after her chemo/immunotherapy #Mouth sores: none #Rash: some dry areas of desquamation, on both forearms only associated with dry skin. Rash affecting her feet after cycle 2 associated with desquamation which has resolved since #GCSF related bone aches: right leg pain from knee to ankle lasting for 2 days, taking Claritin #Neuropathy: none #Diarrhea: starts 2 days after chemotherapy, and lasts for one week - 5 episodes of BM / day; Imodium didn't help her; upon further questioning she only takes Imodium once and if it doesn't help she doesn't take it again . Tries to stay hydrated #Light headedness this am: mostly 2/2 diarrhea #CURIEL: some shortness of breath on exertion #Chest pain: none Oksana endorsed that first week and half after her cycles, she feels overly tired and experiences N/V/Diarrhea but starts to recuperate towards the beginning of the third week ROS: #New headaches: none #New bone/back aches: none #Vision changes: none Review of Systems 10 point review system is negative other than HPI Review of Systems Constitutional: Positive for fatigue. Negative for appetite change, diaphoresis and unexpected weight change. HENT: Negative for lump/mass. Eyes: Negative for eye problems. Respiratory: Negative for chest tightness, cough, shortness of breath and wheezing. Cardiovascular: Negative for chest pain, leg swelling and palpitations. Gastrointestinal: Positive for diarrhea, nausea and vomiting. Negative for abdominal distention, abdominal pain and constipation. Endocrine: Negative for hot flashes. Musculoskeletal: Negative for arthralgias, back pain, flank pain, gait problem, myalgias, neck painand neck stiffness. Skin: Positive for rash. Dry skin on forearms Neurological: Negative for dizziness, extremity weakness, gait problem, headaches, light-headedness, numbness, seizures and speech difficulty. Hematological: Negative for adenopathy. PAST MEDICAL HISTORY: history of hodgkin lymphoma about 35 years ago and treated with radiation therapy, NSTEMI in November 2023 who is currently on Plavix and took aspirin for 1 month. She is also on Eliquis. She has a history of triple-vessel CAD status post staged PCI in [place] in March 2022 with CRIS x 1 to mid RCA, DESx 2 to ostial RCA, CRIS x 1 to ostial left circumflex and CRIS x 1 to mid left circumflex, severe aortic stenosis status post TAVR in 2021, baseline LBBB, hyperlipidemia and hypertension, CKD stage IIIb, bipolar disorder, COPD and hypothyroidism with most recent NSTEMI. She underwent left heart cath on 11/28/2023 demonstrating high-grade lesion in the proximal RCA in-stent stenosis, distal left mainand ostial LAD. A CRIS was placed in the RCA. At outside hospital her LVEF was 10 to 15% on bedside TTE. Echocardiogram showing LVEF 44% and segmental wall motion abnormality which are in the RCA distribution. No thrombus. Past Surgical History: Procedure Laterality Date IR MEDIPORT PLACEMENT 03/23/2024 IR Mediport Placement 03/23/2024 Cely Schmitt PA [facility] INTERVENTIONL RAD MAMMO US BIOPSY LEFT Left 03/26/2024 Mammo Us Biopsy Left 03/26/2024 Ana Weber MD [facility] RAD MAMMOGRAPHY Patient Active Problem List Diagnosis Code NSTEMI (non-ST elevated myocardial infarction) I21.4 Malignant neoplasm of upper-outer quadrant of left breast in female, estrogen receptor negative C50.412, Z17.1 Medication management Z79.899 MEDICATIONS: Current Outpatient Medications: ondansetron (Zofran) 8 mg tablet, Take 1 tablet by mouth every 8 hours as needed for Nausea., Disp:60 tablet, Rfl: 0 diphenhydrAMINE/aluminum-magnesium hydroxide with simethicone/lidocaine (BMX) (6.67 mg-0.83 mg-13.33 mg-1.33 mg/mL) oral liquid, Take 20-30 mLs by mouth every 4 hours as needed., Disp: 240 mL, Rfl: 3 lidocaine (Xylocaine) 2 % Solution, Take 1-2 mLs by mouth as needed for Pain (Please weight loss counselor patient on equal parts benadryl and Maalox.)., Disp: 100 mL, Rfl: 1 QUEtiapine (Seroquel) 50 mg tablet, TAKE ONE TABLET BY MOUTH EVERY NIGHT IN ADDITION TO 100MG TABLET. MAY TAKE UP TO 200MG AT BEDTIME IF NEEDED FOR SLEEP, Disp: 60 tablet, Rfl: 0 diclofenac (Voltaren) 1 % Gel, Apply 2 g topically 2 times daily., Disp: 200 g, Rfl: 1 dexAMETHasone (Decadron) 4 mg tablet, Take 1 tablet by mouth daily. Take on days 2-4 for each chemotherapy cycle, Disp: 20 tablet, Rfl: 0 prochlorperazine (Compazine) 10 mg tablet, Take 1 tablet by mouth every 6 hours as needed for Nausea., Disp: 30 tablet, Rfl: 3 multivitamin (THERAGRAN) Tablet, Take 1 tablet by [...] 4 hours., Disp: 1 each, Rfl: 4 furosemide (Lasix) 20 mg tablet, Take 1 tablet by mouth daily as needed (weight gain, SOB, volume overload)., Disp: 90 tablet, Rfl: 1 metoprolol succinate XL (Toprol-XL) 50 mg ER [...] on 03/28/2024), Disp: 90 tablet, Rfl: 12 ALLERGIES: No Known Allergies SOCIAL HISTORY: Social [...] 1 Homeless in the Last Year: No Used to smoke 1 ppd 20+ years Does no drink Does not take any there drugs Lives alone [place] live [place] Does not work She worked for [employer] FAMILY HISTORY: Family History Problem Relation Age of Onset Skin Cancer Father Cancer Maternal Grandmother suspected, unsure primary Cancer Paternal Grandmother unsure primary Breast Cancer Paternal Half-Sister 46 of same at age 46 Cancer Maternal Uncle suspected, unsure primary Ovarian Cancer Neg Hx Objective: Physical Exam Body surface area is 2.16 meters squared. Wt Readings from Last 3 Encounters: 05/29/24 102.5 kg (226 lb) 05/08/24 104.1 kg (229 lb 6.4 oz) 04/17/24 106.2 kg (234 lb 2.1 oz) ECOG PS: 0 VS: 05/29/24 Height 163.3 cm (5' 4.29) Weight 102.5 kg (226 lb) BSA (Calculated - sq m) 2.16 sq meters Temp 36.2 ??C (97.1 ??F) Heart Rate 109 ! Resp 18 BP 121/62 SpO2 100 % Pain Level 0 Gen: alert and oriented x 3; appears well HEENT: normocephalic, atraumatic, sclerae anicteric, oropharynx clear, moist mucous membranes, no mucositis Neck: supple, non-tender. No thyromegaly. Breast exam: Patient provided verbal consent for breast exam Right breast: Skin: no rash or erythema noted, no palpable breast masses/lumps, nipple ; everted, no spontaneous discharge Right axilla: No palpable lymphadenopathy Left breast: Skin: no rash or erythema noted, known left UOQ breast mass almost not palpable with indistinct borders [this is my first time examining the patient while on neoadjuvant chemotherapy - baseline per Dr Lyn's note], nipple: everted, no spontaneous discharge Left axilla: No palpable lymphadenopathy Lungs: clear to ausculation bilaterally, no wheezes, rales, ronchi, or increased work of breathing Heart: regular rate and rhythm, no murmurs, rubs, or gallops Abd: soft, nontender, nondistended, positive bowel sounds, no rebound/guarding/rigidity, no masses Ext: no cyanosis, clubbing, or edema Neuro: speech fluent, moves all four extremities spontaneously Lymph: no cervical, posterior auricular, submandibular, submental, supraclavicular, infraclavicular, axillary or inguinal lymphadenopathy Spine: no focal tenderness noted LABORATORY TESTS: CBC WBC: 12.44, hemoglobin: 8.1, MCV: 98, t:396, ANC: 8.27 CMP: NA: 140, K: 4.6, BUN: 13, creatinine: 1.5, calcium: 9.3, T. bili: 0.29, AST: 35, ALT: 27, alk phos:630, TP: 7.3, albumin: 2.8, TSH: 9.22, FT 4: 1.18 IMAGING: No new imaging discussed today Pathology: Addendum Comment ER/SD RESULTS: Tissue submitted: Paraffin embedded tissue block labelled A2 from [facility] Pathology Immunohistochemical assays for estrogen receptors (SP1, Franklin) and progesterone receptors (16, Leica) have been performed on this specimen. Intranuclear receptor complexes were visualized on tissuesections using an HRP polymer immunohistochemical technique. This assay is intended for paraffin-emb edded tissue fixed in 10% neutral buffered formalin for 6-72 hours. Results are reported as negative (<1% nuclear staining) or positive with the proportion of positive cells noted. Estrogen receptor expression in <5% of tumor cells may not have a strong interaction with estrogen receptor modulators such as Tamoxifen. Reference: ASCO-CAP Guideline Recommendations for IHC testing of ER and SD. J Clin Oncol 2010;28:6142-8053. NOTE: One or more of the reagents used in immunoperoxidase testing in this case may not have been cleared or approved by the U.S. Food and Drug Administration (FDA). The FDA has determined that suchclearance or approval is not necessary. These tests are used for clinical purposes. They should notbe regarded as investigational or for research. These reagents' performance characteristics have been determined by [facility] and/or by the referring laboratory. The positive and negative controls worked appropriately. If immunoperoxidase staining has been performed on alcohol fixed cytology specimens, which has not been fully validated, the assays should be interpreted with caution and correlated with clinical data. This laboratory is certified under the ClinicalLaboratory Improvement Amendments of 1988 (CLIA-88) as qualified to perform high complexity clinical laboratory testing. INTERPRETATION: BREAST, LEFT, CORE BIOPSY: - Adenocarcinoma, invasive. - negative for estrogen receptors. - negative for progesterone receptors. COMMENT: Cold ischemic time and total formalin fixation time appropriate: Yes Internal control benign epithelium is appropriately staining for estrogen and progesterone receptors HER2/TEZ RESULTS: Tissue submitted: Paraffin embedded tissue block labelled A2 From [facility] Pathology Fixative: Formalin This immunohistochemical assay is intended to paraffin-embedded tissue fixed in 10% neutral buffered formalin for 6-72 hours; 18-24 hour fixation with maximum tissue thickness of 3-4 millimeters is recommended for best assay performance. Time from biopsy to placement in formalin (cold ischemic time) should be minimized to less than one hour. Her2 should not be performed on alcohol fixed tissues. The assay was performed under appropriate conditions according to the resident hall director's instructions with appropriate assay and tissue controls using an Anti-Her2 (4B5) Rabbit Monoclonal Antibody (Franklin). Her2 Scoring Guidelines (invasive tumor component only) 0 negative No staining or membrane staining in less than 10% of cells 1+ negative Faint partial membrane staining in more than 10% of cells 2+ weakly positive Moderate complete membrane staining in more than 10% of cells 3+ positive Strong complete membrane staining in more than 10% of cells Reference: ASCO-CAP Recommendations for Her2 Testing. J Clin Oncol 2018; epub (www.jco.org[https://www.jco.org] March 07, 2018) *FDA statement Assay results Her2 IHC Score: 0/negative Assessment and Plan: Oksana Betancourt is a 58 y.o. female milligram located past medical history of CKD stage III, bipolar disorder, COPD, hypothyroidism and non-STEMI as well as heart failure is diagnosed with triple negative breast cancer. #Left TNBC -- cT1c N1 Mx left breast triple negative cancer grade 3. She also has a lesion #2 in the axillary tail of the size of 1 cm in the left breast that was biopsied on 03/26/2024. Biopsy showed less than 1 mm metastatic deposit in the axillary tail lymph node. Per Dr. Lyn's note: She was started on neoadjuvant docetaxel/carboplatin/pembrolizumab; with initially carboplatin of AUC 4.5 with cycle 1 given JOHN which has then resolved and carboplatin was thendosed at AUC 5 for subsequent cycle 2 and cycle 3. Plan per primary oncology at [facility] is to do 6 cycles of docetaxel/carboplatin/pembrolizumab. Today is cycle 4 day 1 - her cr is 1.5 - Given patient is hemodynamically stable, asymptomatic, and labs are within acceptable parameters to proceed with chemotherapy, will proceed as planned with cycle 4 day 1 - patient is in agreement #Monitoring tx related side effects: -Chemotherapy related nausea/vomiting: Will continue with as needed Zofran; discussed alternating with Compazine-pharmacy following -Systemic therapy related diarrhea: Discussed Imodium and following with trash if she continues to have severe bouts of diarrhea. We discussed hydration at infusion if needed -Normocytic anemia: Most likely in context of systemic therapy: Hemoglobin 8.1 stable, MCV 98-T. bili is within normal -Elevated alk phos: Isolated, 630 today -193 on most recent labs; LFTs are within normal; will continue to closely monitor # Genetics: Reese 04/10/24: negative for pathogenic mutations #Recent history of NSTEMI requiring stent placement on Plavix. Per cardiology okay to hold antiplatelet therapy on surgery. Potential Clinical Trials: -N/A Plan Summary and Follow up: - Given patient is hemodynamically stable, asymptomatic, and labs are within acceptable parameters to proceed with chemotherapy, will proceed as planned with cycle 4 day 1 of docetaxel, carboplatin and Pembrolizumab with GCSF support -Standing CBC, CMP, TFTs prior to each cycle - Prn zofran alternating with compazine as needed for nausea - prn Imodium, and triage follow up in regards to diarrhea and if hydration is needed Follow up: MD/ REED OR WIND INSTRUMENT REPAIRER visit on 06/19/24 at [facility] for Cycle 5 day 1 with lab and infusion appointments Counseling: Total time spent: 60 minutes with > 50% spend in discussion of above, ncol-ix-hpqd time and coordination of care with the patient today Records were reviewed which included imaging, surgical reports, pathology reports and physician notes. The patient was counseled extensively. We discussed the results of all recent diagnostic tests and what these results mean. We discussed the prognosis of the disease. We discussed the risks and benefits of the treatment plan at length. The patient was given instruction for treatment and the follow up appointments were reviewed. We reviewed all the medications and educated the patient about their appropriate uses. The importance of compliance with all medications and instruction was emphasized. All aspects of the plan were discussed with the patient. The patient was given opportunities to askquestions, which we answered. Ms. Oksana Betancourt has endorsed agreement and understanding of the treatment plan. ASCO Quality Metrics -Toxicity: Potential toxicities of therapy discussed in length with patient. Patient educated on symptom management interventions. -Pain Plan: Pain score noted in vitals above. -Fertility Risk: Postmenopausal -Advanced Care Planning: Not discussed on today's visit -Oral Chemotherapy: not on oral chemotherapy -Patient asked to Call the team with concerning symptoms and if being admitted to other hospitals. Patient to contact team via my portal or triage line with non urgent questions and concerns. Roseanna Santacruz MD Medical Oncology [facility] Addiction TherapistPa[place], [facility] Office Cancer.[facility] * Roseanna Santacruz MD - 05/29/2024 9:30 AM EDT Infusion center event: At 12:30 pm: I was called to respond to patient's infusion chair as she was being short of breath and c/o chest tightness. She had already received pembrolizumab; 250cc of NS and nearly completed docetaxel infusion I recommended holding all infusions right away - she didn't get GCSF Oksana looked pale and short of breath, she was notably orthopenic Her vital signs: SpO2: 85%; unable to get accurate bp but was about 130/90 manually Of note: No EKG or tele monitor available at community hospital On exam: She was tachycardic, tachypneic, speaking in short sentences Chest: minimal air movement with notable diffuse wheezing and crackles all over There was no rash, hives or facial swelling noted I recommended nebulizer, O2 via nonrebreather and dexamethasone 10mg x 1 Given AHRF; and concern for pulmonary edema, [facility] rescue was called and she was transferred to the ED Primary team at [facility] notified documented in this encounter Plan of Treatment Upcoming Encounters Date Type Department Care Team (Latest Contact Info) Description 07/30/2024 8:40 AM EST Hospital Encounter Mammography at [place] [phone] Jr Fulton MD [facility] [address] [place] [address] 07/30/2024 8:45 AM EST Appointment Mammography at [place] [phone] Jr Fulton MD [facility] [address] [place] [address] 07/30/2024 9:20 AM EST Hospital [place] [phone] Jr Fulton MD [facility] [address] [place] [address] 07/30/2024 10:51 AM EST Hospital Encounter Outpatient Surgery Center [place] [phone] Jr Fulton MD [facility] [place] [address] 07/30/2024 10:51 AM EST Anesthesia Event [facility] [place] [phone] Megan Orona [place] [address] 07/30/2024 10:51 AM EST - 07/30/2024 1:11 PM EST Surgery [facility] [place] [phone] Jr Fulton MD [facility] [place] [address] MASTECTOMY PARTIAL (WRVU 10.13) 08/22/2024 2:00 PM EST Office Visit General Surgery at [place] [phone] Cindy Pierce APRN [facility] [place] [address] 08/22/2024 3:00 PM EST Office Visit Hematology and Oncology at [place] [phone] Soo Lyn MD [facility] [place] [address] 08/27/2024 9:30 AM EST Scheduled View Only Radiation Oncology at [address] [phone] [address] NurseSt [place] 08/27/2024 10:00 AM EST Office Visit Radiation Oncology at [address] [phone] Paradise Prado MD [facility] [place] [address] 2024 1:00 PM EDT Office Visit Cardiology at [address] [place] [phone] Ham Montenegro MD [facility] [place] [address] Scheduled Procedures Name Priority Associated Diagnoses Date/Ti [...] as of this encounter Visit Diagnoses Diagnosis Infusion reaction, initial encounter Malignant neoplasm of upper-outer quadrant of left breast in female, estrogen receptor negative Triple negative breast cancer documented in this encounter Care Teams Radio Station Manager Relationship Specialty Start Date End Date Gaudencio Scales DO [address] [place] [address] PCP - General Family Medicine 11/28/23 documented as of this encounter
--- OUTSIDE RECORDS SUMMARY | 2024-07-27 12:46 | XMS_ITS | Encounter Summary ---
Author Organization [facility] Address [facility] [place] [address] Care Team Providers Care Rod Puller And Coiler Name Role Phone Gaudencio Scales Antoine VERGARA Primary Care Provider [phone] Encounter Details Date Type Department Care Team (Latest Contact Info) Description 05/08/2024 Travel Social History Tobacco Use Types Packs/Day [...] from your doctor or pharmacy? Rarely 02/28/2024 [facility] Utilities Answer Date Recorded In the [...] place to sleep or slept in a residential (including now)? No 11/29/2023 Housing Stability Vital Sign Answer Jeferson e Recorded In the last 12 months, was t here a time when you were not able to pay the mortgage or rent on time? No 02/28/2024 In the past 12 months, how m any times have you moved where you were living? 0 02/28/2024 At any time in the past 12 m [facility], were you homeless or living in a residential (including now)? No 02/28/2024 IPV Inpatient Questions [...] 8:40 AM EST Hospital [place] [phone] Jr Fulton MD [facility] [address] [place] [address] 07/30/2024 8:45 AM EST [place] [phone] Jr Fulton MD [facility] [place] [address] 07/30/2024 9:20 AM EST Hospital Encounter Mammography at [address] Jr Fulton MD [facility] [address] 07/30/2024 10:51 AM EST Hospital Encounter Outpatient Surgery [facility] [place] [phone] Jr Fulton MD [facility] [place] [address] 07/30/2024 10:51 AM EST Anesthesia Event [facility] [address]1000 Megan Oron[place] [address] 07/30/2024 10:51 AM EST - 07/30/2024 1:11 PM EST Surgery [facility] [address]1000 Jr Fulton MD [facility] [place] [address] MASTECTOMY PARTIAL (WRVU 10.13) 08/22/2024 2:00 PM EST Office Visit General Surgery at [address]1000 Cindy Pierce APRN [facility] [place] [address] 08/22/2024 3:00 PM EST Office Visit [place]ology [place] [address] Soo Lyn MD [facility] [place] [address] 08/27/2024 9:30 AM EST Scheduled View Only Radiation Oncology at [address] [phone] [address] Ovalles 08/27/2024 10:00 AM EST Office Visit Radiation Oncology at [address] [phone] Paradise Prado MD [facility] [place] [address] 2024 1:00 PM EDT Office Visit Cardiology at [address] [phone] Ham Monteengro MD [facility] [place] [address] Scheduled Procedures Name Priority Associated Diagnoses Date/Ti [...] on filedocumented in this encounter Care Teams Rod Puller And Coiler Relationship Specialty Start Date End Date Gaudencio Scales DO [address] [place] [address] PCP - General Family Medicine 11/28/23 documented as of this encounter
--- OUTSIDE RECORDS SUMMARY | 2024-07-27 12:46 | XMS_ITS | Encounter Summary ---
Author Organization [facility] Address [facility] [place] [address] Care Team Providers Care Dietitian Name Role Phone Gaudencio Scales Antoine VERGARA Primary Care Provider [phone] Reason for Visit * Reason Onset Date Comments Medication Management 05/11/2024 Encounter Details Date Type Department Care Team (Late st Contact Info) Description 05/11/2024 Telephone Hematology [place] [address] Zoraida Vasquez, cosmetic chemist Management Social History Tobacco Use Types Packs/Day Years [...] from your doctor or pharmacy? Rarely 02/28/2024 [facility] Utilities Answer Date Recorded In the past 12 months has [employer] gas, oil, or water [employer] threatened to shut off services in your [...] any time in the past 12 m [facility], were you homeless or living in a long term (including now)? No 02/28/2024 IPV Inpatient Questions [...] encounter Miscellaneous Notes * Telephone Encounter - Zoraida Vasquez RN - 05/11/2024 1:42 PM EDTSummary: medication management Images from the original note were not included. ----- Message from Breanne Mojica sent at 05/11/2024 12:57 PM EDT ----- Regarding: Magic mouthwash script [facility] in [facility] called and let me know they're not a compounding pharmacy but if you are ok with it and can rx viscus lidocaine, they can instruct her how to make with OTC ingredients and viscus lidocaine. Otherwise, will need to send to a compounding pharmacy [phone] Call placed to pharmacy and spoke to Teresita. Teresita requests that prescriber put in notes grief counselor patient equal parts benadryl and Maalox. Msg to BEE Goyal to write RX if in agreement. Paradise Contreras PA P [facility] Hem Onc Triage Breast Okay just sent! documented in this encounter Plan of Treatment Upcoming Encounters Date Type Department Care Team (Latest Contact Info) Description 07/30/2024 8:40 AM EST Hospital Encounter Mammography at [place] [phone] Jr Fulton MD [facility] [address] [place] [address] 07/30/2024 8:45 AM EST Appointment Mammography at [place] [phone] Jr Fulton MD [facility] [address] [place] [address] 07/30/2024 9:20 AM EST Hospital Encounter Mammography at [place] [phone] Jr Fulton MD [facility] [address] [place] [address] 07/30/2024 10:51 AM EST Hospital Encounter [place]patient [place] [phone] Jr Fulton MD [facility] [address] [place] [address] 07/30/2024 10:51 AM EST Anesthesia Event [place] [address] Megna Orona [place] [address] 07/30/2024 10:51 AM EST - 07/30/2024 1:11 PM EST Surgery Outpatient [place] [address] Jr Fulton MD [facility] [place] [address] MASTECTOMY PARTIAL (WRVU 10.13) 08/22/2024 2:00 PM EST Office [place] [address] Cindy Pierce APRN [facility] [place] [address] 08/22/2024 3:00 PM EST Office Visit Hematology and Oncology at [place] [phone] Soo Lyn MD [facility] [place] [address] 08/27/2024 9:30 AM EST Scheduled View Only Radiation Oncology at [address] [phone] St Josr Whitley 08/27/2024 10:00 AM EST Office Visit Radiation Oncology at [address] [phone] Paradise Prado MD [facility] [address] 2024 1:00 PM EDT Office Visit Cardiology at [address] [place] [phone] Ham Montenegro MD [facility] [place] [address] Scheduled Procedures Name Priority Associated Diagnoses Date/Ti [...] on filedocumented in this encounter Care Teams Dietitian Relationship Specialty Start Date End Date Gaudencio Scales DO [facility] [place] [address] PCP - General Family Medicine 11/28/23 documented as of this encounter
--- OUTSIDE RECORDS SUMMARY | 2024-07-27 12:46 | XMS_ITS | Encounter Summary ---
Author Organization [facility] [place] [address] Care Team Providers Care Paster Supervisor Name Role Phone Gaudencio Scales Antoine VERGARA Primary Care Provider [phone] Reason for Visit * Reason Onset Date Comments Results 05/04/2024 Encounter Details Date Type Department Care Team (Late st Contact Info) Description 05/04/2024 Telephone Hematology [place] [phone] [facility] [place] [address] Results Social History Tobacco Use Types Packs/Day Years [...] from your doctor or pharmacy? Rarely 02/28/2024 [facility] Utilities Answer Date Recorded In [...] any time in the past 12 m [facility], were you homeless or living in a usp (including now)? No 02/28/2024 IPV Inpatient Questions [...] encounter Miscellaneous Notes * Telephone Encounter - Loren Srinivasan [facility] - 05/04/2024 3:24 PM EDT This test result was discussed with the patient by phone. A copy of the test results have been scanned in the medical record and sent to Oksana. A summary of the results is provided below. Please be advised that [place] law requires that all health care workers respect the confidentiality of this information and not pass it along to other health care providers, insurance companies, or indivi duals without the written permission of the patient. The Familial Cancer Program welcomes any questions about these matters. Our phone number is: [phone]. On 03/20/2024 Oksana was seen for genetic counseling and subsequently underwent genetic testing for ahereditary predisposition to cancers in eight major organ systems including breast, gynecologic, gastrointestinal, endocrine, genitourinary, skin, brain/nervous system, sarcoma and hematologic. Following are the results of this test. Result: [facility]'s CancerNext-Expanded Panel showed no pathogenic mutations were detected. This means that Oksana does not carry a mutation in the genes detectable by this test. The following 71 genes were analyzed: AIP, ALK, APC, ESTEE, BAP1, BARD1, BMPR1A, BRCA1, BRCA2, BRIP1, CDC73, CDH1, CDK4, CDKN1B, CDKN2A, CHEK2, DICER1, FH, FLCN, KIF1B, LZTR1, MAX, MEN1, MET, MLH1, MSH2, MSH6, MUTYH, NF1, NF2, NTHL1, PALB2, PHOX2B, PMS2, POT1, JZTLI1D, PTCH1, PTEN, RAD51C, RAD51D, RB1, RET, SDHA, SDHAF2, SDHB, SDHC,SDHD, SMAD4, SMARCA4, SMARCB1, SMARCE1, STK11, SUFU, QZPG404, TP53, TSC1, TSC2 and VHL (sequencing and deletion/duplication); AXIN2, CTNNA1, EGFR, EGLN1, HOXB13, KIT, MITF, MSH3, PDGFRA, POLD1 and POLE (sequencing only); EPCAM and GREM1 (deletion/duplication only) Interpretation: This test did not identify an underlying genetic cause for the personal history or family history of breast cancer. Possible explanations for this negative test result include: Oksana's cancer and the cancer in her family may be due to non genetic, environmental causes. There could be a mutation in Oksana's family that Oksana did not inherit There could be mutations in other cancer genes not included in this test, or in genes yet to be discovered. There is a very small chance that a pathogenic variant/mutation could be missed due to limitations in the testing. Based on these results, Oksana's children do not need genetic testing for hereditary cancer risk due to their maternal family history. If their father's family history is of concern, we would recommend further evaluation of that side of the family by a genetic counselor. Additional germline genetic testing for Oksana is not recommended at this time. Screening Recommendations Based on genetic test results and personal and/or family history, we recommend: Breast cancer screening Clinical breast exams and imaging as recommended by Oksana's oncologists. Gynecologic cancer screening Pelvic exams and/or Pap smears as recommended by Oksana's yarn winder or primary care provider. Colon cancer screening Baseline colorectal cancer screening starting by age 45-50 is important for everyone, regardless ofgenetic predisposition. Periodic colonoscopy screening as recommended by Oksana's access representative. Skin cancer screening Skin cancer screening and sun protection are important for everyone, regardless of genetic predisposition. Consideration of routine dermatologic/skin exams, as recommended by Oksana's primary care provider or aeronautical engineering teacher. documented in this encounter Plan of Treatment Upcoming Encounters Date Type Department Care Team (Latest Contact Info) Description 07/30/2024 8:40 AM EST Hospital Encounter [place] [phone] Jr Fulton MD [facility] [place] [address] 07/30/2024 8:45 AM EST Appointment [place] [phone] Jr Fulton MD [facility] [place] [address] 07/30/2024 9:20 AM EST Hospital Encounter [place] [phone] Jr Fulton MD [facility] [address] [place] [address] 07/30/2024 10:51 AM EST Hospital Encounter Outpatient Surgery Center [place] [phone] Jr Fulton MD [facility] [place] [address] 07/30/2024 10:51 AM EST Anesthesia Event [place] [address] Megan Oron[place] [address] 07/30/2024 10:51 AM EST - 07/30/2024 1:11 PM EST Surgery Outpatient Surgery [facility] [place] [phone] rJ Fulton MD [facility] [place] [address] MASTECTOMY PARTIAL (WRVU 10.13) 08/22/2024 2:00 PM EST Office Visit General Surgery at [place] [phone] Cindy Pierce APRN [facility] [place] [address] 08/22/2024 3:00 PM EST Office Visit Hematology and Oncology at [place] [phone] Soo Lyn MD [facility] [place] [address] 08/27/2024 9:30 AM EST Scheduled View Only Radiation Oncology at [address] [phone] St Josr Whitley 08/27/2024 10:00 AM EST Office Visit Radiation Oncology at [address] [phone] Paradise Prado MD [facility] [place] [address] 2024 1:00 PM EDT Office Visit Cardiology at [address] [place] [phone] Ham Montenegro MD [facility] [place] [address] Scheduled Procedures Name Priority Associated Diagnoses Date/Ti [...] on filedocumented in this encounter Care Teams Paster Supervisor Relationship Specialty Start Date End Date Gaudencio Scales DO [address] [place] [address] PCP - General Family Medicine 11/28/23 documented as of this encounter
--- OUTSIDE RECORDS SUMMARY | 2024-07-27 12:46 | XMS_ITS | Encounter Summary ---
Author Organization [facility] Address [facility] [place] [address] Care Team Providers Care Warrant Server Name Role Phone Gaudencio Scales Antoine VERGARA Primary Care Provider [phone] Encounter Details Date Type Department Care Team (Latest Contact Info) Description 05/29/2024 Travel Social History Tobacco Use Types Packs/Day [...] doctor or pharmacy? Rarely 05/29/2024 [facility] Utilities Answer Date Recorded In [...] any time in the past 12 m [facility], were you homeless or living in a custodial (including now)? No 05/29/2024 IPV Inpatient Questions [...] 8:40 AM EST Hospital En[place] [phone] Jr Fulton MD [facility] [address] [address] 07/30/2024 8:45 AM EST Appointment [place] [phone] Jr Fulton MD [facility] [address] [address] 07/30/2024 9:20 AM EST Hospital Encounter Mammography at [address]1000 Jr Fulton MD [facility] [place] [address] 07/30/2024 10:51 AM EST Hospital Encounter Outpatient Surgery Center [place] [phone] Jr Fulton MD [facility] [place] [place] [address] 07/30/2024 10:51 AM EST Anesthesia Event Outpatient Surgery [facility] [place] [address] Megan Orona APRN [place] [address] 07/30/2024 10:51 AM EST - 07/30/2024 1:11 PM EST Surgery [place] [address] Jr Fulton MD [facility] [place] [address] MASTECTOMY PARTIAL (WRVU 10.13) 08/22/2024 2:00 PM EST Office Visit General Surgery at [address]1000 Cindy Pierce APRN [facility] [place] [address] 08/22/2024 3:00 PM EST Office Visit Hematology and Oncology at [place] [phone] Soo Lyn MD [facility] [place] [address] 08/27/2024 9:30 AM EST Scheduled View Only Radiation Oncology at [address] [phone] [address] [place]es 08/27/2024 10:00 AM EST Office Visit Radiation Oncology at [address] [phone] Paradise Prado MD [facility] DR RADI[place] [address] 2024 1:00 PM EDT Office Visit Cardiology at [address] [phone] Ham Montenegro MD [facility] [place] [address] Scheduled Procedures Name Priority Associated Diagnoses Date/Ti [...] on filedocumented in this encounter Care Teams Warrant Server Relationship Specialty Start Date End Date Gaudencio Scales DO [address] [place] [address] PCP - General Family Medicine 11/28/23 documented as of this encounter
--- OUTSIDE RECORDS SUMMARY | 2024-07-27 12:46 | XMS_ITS | Encounter Summary ---
Author Organization [facility] [place] [address] Care Team Providers Care Housekeeper Supervisor Name Role Phone Gaudencio Scales Primary Care Provider [phone] Reason for Visit * Reason Comments Chemotherapy Pembrolizumab/doceta xel/carboplatin * Treatment/Therapy Plan Authorization (Routine) - Pending [...] FOSAPREPITANT, 1MG, INJECTION (EMEND) Soo Lyn MD [facility] [place] [address] [facility] [address] [place] [address] Referral ID Status Reason Start Date Expiration Date V isits Requested Visits Authorized [id number] Pending Review 03/14/2024 03/14/2025 99 101 Encounter Details Date Type Department Care Team (Late st Contact Info) Description 05/29/2024 10:30 AM EDT Infusion Hematology Oncology at [address] [phone] Malignant neoplasm of upper-outer quadrant of left breast in female, estrogen receptor negative (Primary Dx) Social History Tobacco Use Types Packs/Day Years [...] doctor or pharmacy? Rarely 05/29/2024 [facility] Utilities Answer Date Recorded In the [...] any time in the past 12 m [facility], were you homeless or living in a penitentiary (including now)? No 05/29/2024 DH IPV Inpatient [...] of this encounter Progress Notes * Cely Peterson RN - 05/29/2024 10:30 AM EDT Images from the original note were not included. Patient Name: Oksana Betancourt Patient Age: 58 y.o. Birthdate: 1965 Oksana Betancourt, 58 y.o. female with diagnosis of breast cancer is here for chemotherapy infusion of pembrolizumab, docetaxel, and carboplatin with Onpro application. CYCLE: 4 DAY: 1 S: Pt has no complaints today. O: Chemotherapy orders independently verified for correct drug name, route and dosage per patient'sheight, weight and BSA by Cely Peterson RN and onsite pharmacist. Port accessed off-site. Flushes easily with brisk blood return. REACTIONS (DESCRIPTION, TIME, INTERVENTION AND EFFECTIVENESS) At 1254 with 4 min remaining of decetaxel, patient started complaining of chest tightness and shortness of breath. Patient had also received ordered premedications and pembrolizumab infusion prior tohanging docetaxel. See Flowsheet attached below. 911 called at 1305. Report called to [facility] ED at 1315. Patient was transported to [facility] ED by [employer]. A: Oksana Betancourt was transported via EMS to [facility] ED at 13:17 P: Return to clinic as planned. documented in this encounter Plan of Treatment Upcoming Encounters Date Type Department Care Team (Latest Contact Info) Description 07/30/2024 8:40 AM EST Hospital Encounter Mammography at [place] [phone] Jr Fulton MD [facility] [place] [address] 07/30/2024 8:45 AM EST Appointment Mammography at [address] Jr Fulton MD [facility] [address] [place] [address] 07/30/2024 9:20 AM EST Hospital [place] [phone] Jr Fulton MD [facility] [address] [place] [address] 07/30/2024 10:51 AM EST Hospital Encounter Outpatient Surgery [facility] [place] [phone] Jr Fulton MD [facility] [address] [place] [address] 07/30/2024 10:51 AM EST Anesthesia Event Outpatient [facility] [place] [phone] Megan Orona APRN [place] [address] 07/30/2024 10:51 AM EST - 07/30/2024 1:11 PM EST Surgery Out[facility] [place] [phone] Jr Fulton MD [facility] [address] [place] [address] MASTECTOMY PARTIAL (WRVU 10.13) 08/22/2024 2:00 PM EST Office Visit [place] [address] Cindy Pierce APRN [facility] [place] [address] 08/22/2024 3:00 PM EST Office Visit Hematology [place] [phone] Soo Lyn MD [facility] [place] [address] 08/27/2024 9:30 AM EST Scheduled View Only Radiation Oncology at [address] [phone] Rad Nurse, [facility] 08/27/2024 10:00 AM EST Office Visit Radiation Oncology at [address] [phone] Paradise Prado MD [facility] [place] [address] 2024 1:00 PM EDT Office Visit Cardiology at [address] [place] [address] Ham Montenegro MD [facility] [place] [address] Scheduled Procedures Name Priority Associated Diagnoses Date/Ti [...] of left breast in female, estrogen receptor negative- Primary documented in this encounter Administered Medications Inactive Administered Medications - up to 3 most recent administrations Medication Order MAR Action Action Date Dose Rate Site albuteroL (Proventil, Ventolin) (2.5 mg/3 mL) (0.083 %) nebulizer solution 2.5 mg 2.5 mg, Nebulization, EVERY 15 MIN, 2 doses, First dose on Tue05/29/24 at 1345, Last dose on Tue05/29/24 at 1400, As needed for dyspnea or wheezing., Routine Given 05/29/2024 1:02 PM EDT 2.5 mg dexAMETHasone (Decadron) (10 mg/mL) injection 10 mg 10 mg, Intravenous, ONCE, 1 dose, On Tue05/29/24 at 1045, Administer 60 minutes prior to DOCEtaxeL Given 05/29/2024 10:36 AM EDT 10 mg dexAMETHasone (PF) (Decadron) (10 mg/mL) injection 10 mg 10 mg, Intravenous, ONCE, 1 dose, On Tue05/29/24 at 1300 Given 05/29/2024 1:04 PM EDT 10 mg diphenhydrAMINE (Benadryl) capsule 50 mg 50 mg, Oral, ONCE, 1 dose, On Tue05/29/24 at 1045, Administer 60 minutes prior to DOCEtaxeL, Routine Given 05/29/2024 10:34 AM EDT 50 mg DOCEtaxeL (Taxotere) 160 mg in sodium chloride 0.9% Non-PVC 258 mL infusion 160 mg (rounded from 165.75 mg = 75 mg/m2/dose ? 2.21 m2 Treatment Plan BSA from Recorded weight), Intravenous, ONCE, 1 dose, On Tue05/29/24 at 1145, Administer over 60 Minutes, Warning Vesicant/Irritant Medication , Should this infusion continue 3 Step Titration (Initial Dosing) or Standard Infusion? Maintenance: Standard Infusion Time New Bag 05/29/2024 11:57 AM EDT 160 mg 258 mL/hr famotidine (Pepcid) (10 mg/mL) injection 20 mg 20 mg, Intravenous, ONCE, 1 dose, On 05/29/24 at 1045, Administer 60 minutes prior to DOCEtaxeL Given 05/29/2024 10:37 AM EDT 20 mg fosaprepitant (Emend) 150 mg in sodium chloride 0.9% 255 mL infusion 150 mg, Intravenous, at 510 mL/hr, Administer over 30 Minutes, ONCE, 1 dose, On Tue05/29/24 at 1115, Routine, Fosaprepitant IV is restricted for use only for pediatric patients, patients, and when insurance requires its use. For all other populations, please order aprepitant IV (Cinvanti). Which category does your patient fall into? Insurance Required New Bag 05/29/2024 10:44 AM EDT 150 mg 510 mL/hr palonosetron (Aloxi) (0.05 mg/mL) injection 0.25 mg 0.25 mg, Intravenous, ONCE, 1 dose, On Tue05/29/24 at 1045, Administer over 30 seconds., Routine Given 05/29/2024 10:39 AM EDT 0.25 mg pembrolizumab (Keytruda) 200 mg in sodium chloride 0.9% 108 mL infusion 200 mg, Intravenous, ONCE, 1 dose, On e 05/29/24 at 1145, Administer over 30 Minutes, Flush Line with NS after each dose, This agent is restricted to outpatient use. Is this drug being given as an outpatient? Yes New Bag 05/29/2024 11:21 AM EDT 200 mg 216 mL/hr documented in this encounter Care Teams Housekeeper Supervisor Relationship Specialty Start Date End Date Gaudencio Scales DO [facility] [address] [address] PCP - General Family Medicine 11/28/23 documented as of this encounter
--- OUTSIDE RECORDS SUMMARY | 2024-07-27 12:46 | XMS_ITS | Encounter Summary ---
Author Organization [facility] [place] [address] Care Team Providers Care It Operations Specialist Name Role Phone Loyda Gaudencio Antoine VERGARA Primary Care Provider [phone] Encounter Details Date Type Department Care Team (Late st Contact Info) Description 04/25/2024 Telephone [facility] [place] [phone] Joan Ely RN Social History Tobacco Use Types Packs/Day [...] from your doctor or pharmacy? Rarely 02/28/2024 [facility] Utilities Answer Date Recorded [...] living in a halfway (including now)? No 02/28/2024 IPV Inpatient Questions [...] encounter Miscellaneous Notes * Telephone Encounter - Joan Ely RN - 04/25/2024 3:48 PM EDT Received following message from unit secretary: Oksana called and let me know that she's having burning pain in the bottoms of her feet and the insides of her wrists. She said the skin looks like she burned it but she hasn't. She's having a hard time walking d/t the bottoms of her feet. Could you please call her back at [phone] S/O: Redness and burning on soles of feet bilaterally and small area on left hand, started three days ago and has worsened, pain 5/10, skin intact, no blisters, pt states it feels like I burned my feet and makes it hard to walk, Taking percocet 10-325 TID that she uses for other reasons, some effect on pain but doesn't last eight hours when next dose is due. Soaking feet in epsom salt and applying unscented moisturizer. Plan: Continue to apply moisturizer gently. Shower with lukewarm water and avoid hot/cold temps. Wear gloves to protect hands when doing dishes, etc. Wear loose fitting socks and shoes. Continue percocet as prescribed. Will make provider aware and contact pt with any recommendations She agrees and has no other questions at this time. Addendum: Called patient to let her know that Paradise Contreras recommends using voltaren gel 2-3 x daily. She is aware she can buy that OTC. She also knows that we will call her on Tuesday to follow up. documented in this encounter Plan of Treatment Upcoming Encounters Date Type Department Care Team (Latest Contact Info) Description 07/30/2024 8:40 AM EST Hospital En[place] [phone] Jr Fulton MD [facility] [address] [place] [address] 07/30/2024 8:45 AM EST Appointment [place] [phone] Jr Fulton MD [facility] [address] [place] [address] 07/30/2024 9:20 AM EST Hospital En[place] [phone] Jr Fulton MD [facility] [place] [address] 07/30/2024 10:51 AM EST Hospital Encounter Outpatient Surgery [facility] [place] [phone] Jr Fulton MD [facility] [place] [address] 07/30/2024 10:51 AM EST Anesthesia Event Outpatient Surgery Center [address] Megan Orona [place] [address] 07/30/2024 10:51 AM EST - 07/30/2024 1:11 PM EST Surgery Out[facility] [place] [phone] Jr Fulton MD [facility] [place] [address] MASTECTOMY PARTIAL (WRVU 10.13) 08/22/2024 2:00 PM EST Office Visit [place] [address] Cindy Pierce APRN [facility] [place] [address] 08/22/2024 3:00 PM EST Office Visit Hematology and Oncology at [place] [phone] Soo Lyn MD [facility] [place] [address] 08/27/2024 9:30 AM EST Scheduled View Only Radiation Oncology at [address] [phone] [address] [facility] [place] 08/27/2024 10:00 AM EST Office Visit Radiation Oncology at [address] [phone] Paradise Prado MD [facility] [place] [address] 2024 1:00 PM EDT Office Visit Cardiology at [address] [place] [address] Ham Montenegro MD [facility] [place] [address] Scheduled Procedures Name Priority Associated Diagnoses Date/Ti [...] on filedocumented in this encounter Care Teams It Operations Specialist Relationship Specialty Start Date End Date Gaudencio Scales DO [address] [place] [address] PCP - General Family Medicine 11/28/23 documented as of this encounter
--- OUTSIDE RECORDS SUMMARY | 2024-07-27 12:47 | XMS_ITS | Encounter Summary ---
Author Organization [facility] Address [facility] [place] [place] [address] Care Team Providers Care Sports Analyst Name Role Phone Gaudencio Scales DO Primary Care Provider [phone] Encounter Details Date Type Department Care Team (Latest Contact Info) Description 04/02/2024 10:30 AM EDT TH Visit (TeleHealth) Hematology [place] [phone] Octavio Guzman, [facility] Malignant neoplasm of upper-outer quadrant [...] from your doctor or pharmacy? Rarely 02/28/2024 [facility] Utilities Answer Date Recorded In the past 12 months has e [employer], gas, oil, or water [email or web address] threatened to shut off services in your [...] this encounter Progress Notes * Octavio Guzman, [facility] - 04/02/2024 10:30 AM EDT Oncology Clinical Pharmacist Consultation: Cycle 2, Day 1 / CINV follow-up Visit Type: Telephone Subjective: Patient ID: Oksana Betancourt is a 58 y.o. female diagnosed with breast cancer who presents today for cycle 2, day 1 of carbo/docetaxel/pembro. Chemotherapy regimen including supportive care was reviewed during the visit with the patient. Allergies and Drug intolerance: No Known Allergies Chemotherapy Regimen includes the following agents: carboplatin (Paraplatin) AUC 4.5 IV once every 21 days docetaxel (Taxotere) 75 mg/m2 IV once every 21 days pembrolizumab (Keytruda)200 mg every 21 days [place] Antiemetic Regimen Aloxi (palonosetron) 0.25 mg IV once prior to chemotherapy Cinvanti (aprepitant) 130 mg IV once prior to chemotherapy Home Antiemetic Regimen Compazine (prochlorperazine) 10 mg PO every 6 hours as needed for nausea Decadron (dexamethasone) 4 mg PO daily on days 2-4 as needed for nausea Zofran (ondansetron) 8 mg PO every 8 hours as needed for nausea CINV Assessment: Did you experience any nausea and/or vomiting during cycle 1? No If yes, when did the nausea and/or vomiting occur and how long did it last? NA Did you need to utilize any PRN antinausea medications? No Did you have any difficulty filling your antinausea medications? No Do you need any refills of any antinausea medications? No Do you believe your nausea is adequately controlled on your current regimen? Yes Patient reports the following additional side effects during cycle 1: Body aches. Taking OTC APAP PRN pain Assessment and Recommendations: Oksana Betancourt is a 58 y.o. female diagnosed with breast cancer who presents today for cycle 2, day 1 of carbo/docetaxel/pembro. She reported the following side effects during cycle 1 of therapy: body aches that she takes PRN APAP for. The chemotherapy schedule, antiemetic regimen, and ways to manage side effects were discussed with the patient during the visit today. The following side effect mitigation and management strategies were discussed with the patient: OK to continue APAP PRN. Check temperature prior to not mask a fever. Antiemetic Plan: Continue with current regimen. Pharmacy follow up appointment: 04/20/24 @1030AM Octavio Guzman RPH 04/02/24 5 minutes were spent providing patient education. documented in this encounter Plan of Treatment Upcoming Encounters Date Type Department Care Team (Latest Contact Info) Description 07/30/2024 8:40 AM EST Hospital Encounter Mammography at [place] [address] Jr Fulton MD [facility] [place] [address] 07/30/2024 8:45 AM EST Appointment Mammography at [place] [address] Jr Fulton MD [facility] [place] [address] 07/30/2024 9:20 AM EST Hospital Encounter Mammography at [place] [address] Jr Fulton MD [facility] [place] [address] 07/30/2024 10:51 AM EST Hospital Encounter Outpatient Surgery Center [place] [address] Jr Fulton MD [facility] [place] [address] 07/30/2024 10:51 AM EST Anesthesia Event Out[facility] [place] [address] Megan [place]ron[place] [address] 07/30/2024 10:51 AM EST - 07/30/2024 1:11 PM EST Surgery Outpatient [facility] [place] [address] Jr Fulton MD [facility] [place] [address] MASTECTOMY PARTIAL (WRVU 10.13) 08/22/2024 2:00 PM EST Office Visit General Surgery at [place] [phone] Cindy Pierce APRN [facility] [place] [address] 08/22/2024 3:00 PM EST Office Visit Hematology [place] [address] Soo Lyn MD [facility] [place] [address] 08/27/2024 9:30 AM EST Scheduled View Only Radiation Oncology at [address] [phone] [address] [place] 08/27/2024 10:00 AM EST Office Visit Radiation Oncology at [address] [phone] Paradise Prado MD [facility] [place] [address] 2024 1:00 PM EDT Office Visit Cardiology at [address] [phone] Ham Montenegro MD [facility] [place] [address] Scheduled Procedures Name Priority Associated Diagnoses Date/Ti [...] negative documented in this encounter Care Teams Sports Analyst Relationship Specialty Start Date End Date Gaudencio Scales DO [address] [place] [address] PCP - General Family Medicine 11/28/23 documented as of this encounter
--- OUTSIDE RECORDS SUMMARY | 2024-07-27 12:47 | XMS_ITS | Encounter Summary ---
[facility] Organization [facility] [place] [address] Care Team Providers Care Gaming Department Head Name Role Phone Gaudencio Scales Primary Care Provider [phone] Reason for Visit * Treatment/Therapy Plan Authorization [...] FOSAPREPITANT, 1MG, INJECTION (EMEND) Soo Lyn MD [facility] [place] [address] [facility] [address] [place] [address] Referral ID Status Reason Start Date Expiration Date V isits Requested Visits Authorized [id number] Pending Review 03/14/2024 03/14/2025 99 101 Encounter Details Date Type Department Care Team (Latest Contact Info) Description 03/28/2024 6:57 AM EDT Hospital Encounter [place]ematology [place] [address] Malignant neoplasm of upper-outer quadrant [...] from your doctor or pharmacy? Rarely 02/28/2024 [facility] Utilities Answer Date Recorded In [...] time in the past 12 m [facility], were you homeless or living in a fdc (including now)? No 02/28/2024 IPV Inpatient Questions [...] capsule 20M Capsule(s), PO, Once daily 01/12/2006 dexAMETHasone (Decadron) 4 mg tablet Take 1 tablet by mouth daily. Take on days 2-4 for each chemotherapy cycle 20 tablet 03/23/2024 07/02/2024 prochlorperazine (Compazine) 10 mg tablet Take 1 tablet by mouth every 6 hours as needed for Nausea. 30 tablet 3 03/23/2024 07/02/2024 QUEtiapine (SEROquel) 25 mg tablet Take 0.5 tablets by mouth daily as needed. May take up to one whole tab 30 tablet 03/13/2024 04/10/2024 QUEtiapine (SEROquel) 50 mg tablet Take 1 [...] by mouth 2 times daily. 10/27/2023 07/16/2024 ondansetron (Zofran) 4 mg tablet Take 4 mg by mouth every 8 hours as needed. 10/28/2023 04/11/2024 documented as of this encounter Plan of Treatment Upcoming Encounters Date Type Department Care Team (Latest Contact Info) Description 07/30/2024 8:40 AM EST Hospital [place] [address] Jr Fulton MD [facility] [place] [address] 07/30/2024 8:45 AM EST [place] [address] Jr Fulton MD [facility] [place] [address] 07/30/2024 9:20 AM EST Hospital [place] [phone] Jr Fulton MD [facility] [place] [address] 07/30/2024 10:51 AM EST Hospital Encounter Out[facility] [place] [phone] Jr Fulton MD [facility] [place] [address] 07/30/2024 10:51 AM EST Anesthesia Event [facility] [address] Megan Orona APRN [place] [address] 07/30/2024 10:51 AM EST - 07/30/2024 1:11 PM EST Surgery [facility] [place] [phone] Jr Fulton MD [facility] [place] [address] MASTECTOMY PARTIAL (WRVU 10.13) 08/22/2024 2:00 PM EST Office Visit General Surgery at [address] Cindy Pierce APRN [facility] [place] [address] 08/22/2024 3:00 PM EST Office Visit Hematology and Oncology at [place] [phone] Soo Lyn MD [facility] [place] [address] 08/27/2024 9:30 AM EST Scheduled View Only Radiation Oncology at [address] [phone] Rad Nurse, [facility] 08/27/2024 10:00 AM EST Office Visit Radiation Oncology at [address] [phone] Paradise Prado MD [facility] [place] [address] 2024 1:00 PM EDT Office Visit Cardiology at [address] [place] [address] Ham Montenegro MD [facility] [place] [address] Scheduled Procedures Name Priority Associated Diagnoses Date/Ti [...] Date/Time Associated Diagnosis Comments SCAN, PERIPHERAL BLOOD STAT 7:24 AM EDT HEMOGRAM STAT 03/28/2024 7:24 AM EDT Malignant neoplasm of upper-outer quadrant of left breast in female, estrogen receptor negative DIFFERENTIAL, AUTOMATED STAT 03/28/2024 7:24 AM EDT Malignant neoplasm of upper-outer quadrant of left breast in female, estrogen receptor negative CBC (WITH DIFF) STAT 03/28/2024 7:24 AM EDT Malignant neoplasm of upper-outer quadrant of left breast in female, estrogen receptor negative TSH STAT 03/28/2024 7:24 AM EDT Malignant neoplasm of upper-outer quadrant of left breast in female, estrogen receptor negative T4, FREE STAT 03/28/2024 7:24 AM EDT Malignant neoplasm of upper-outer quadrant of left breast in female, estrogen receptor negative COMPREHENSIVE METABOLIC PANEL STAT 03/28/2024 7:24 AM EDT Malignant neoplasm of upper-outer quadrant of left breast in female, estrogen receptor negative documented in this encounter Results * Scan, Peripheral Blood (03/28/2024 7:24 AM EDT) Pathologist [facility] Plat estimate Normal [facility] RBC Morphology Abnormal [facility] [place] Cells 1-5 /HPF [facility] [address] Bdy Present >1/HPF [facility] [place] Present >1/HPF [facility] Blood 03/28/2024 7:24 AM EDT 03/28/2024 7:51 AM EDT Narrative Resulting Agency Comment Spec In Lab Soo Lyn MD HEMATOLOGY ORDERABLE S [facility] [place] [address] * (ABNORMAL) Differential, Automated (03/28/2024 7:24 AM EDT) Pathologist [facility] Neutrophil % 43.7 % [facility] Neutrophil Absolute 4.92 1.70 - 6.10 x10(3)/mc L [facility] Lymph % 46.1 % [facility] Lymphocytes Abs 5.2(H) 0.9 - 3.2 x10(3)/ L [facility] Monocyte % 7.7 % [facility] Monocyte Abs 0.9 0.3 - 0.9 x10(3)/[facility] Eos % 1.7 % [facility] Eosinophils Abs 0.2 0.0 - 0.4 x10(3)/[facility] Basophil % 0.6 % [facility] Baso Absolute 0.1 0.0 - 0.1 x10(3)/[facility] Immature Gran % 0.20 % [facility] Comment: Immature granulocytes(IG's)percentage and absolute count will include metamyelocytes, myelocytes, and promyelocytes. Blood smears from CBCs yielding IG's will be scanned manually for concordance. If this scan disagrees with the automated IG or if promyelocytes are noted, a manual differential will be performed. Immature Gran Absolute 0.02 0.00 - 0.04 x10(3)/[facility] Blood 03/28/2024 7:24 AM EDT 03/28/2024 7:51 AM EDT Narrative Resulting Agency Comment Spec In Lab Soo Lyn MD HEMATOLOGY ORDERABLE S [facility] [place] [address] * (ABNORMAL) Hemogram (03/28/2024 7:24 AM EDT) White Blood Cell 11.3(H) 4.0 - 9.5 x10(3)/[facility] Red Blood Cell 4.27 4.00 - 5.21 x10(6)/[facility] Hemoglobin 12.7 11.7 - 15.5 g/dL [facility] Hematocrit 39.3 35.7 - 45.8 % [facility] Mean Cell Volume 92.0 82.6 - 94.4 fL [facility] Mean Cell Hemoglobin 29.7 27.1 - 32.0 pg [facility] Mean Cell Hemoglobin Concentration 32.3 31.7 - 35.0 g/dL [facility] Platelet 297 145 - 357 x10(3)/mc L [facility] RDW Standard Deviation 50.2(H) 37.0 - 46.0 fL [facility] RDW coefficient of variation 14.8(H) 11.5 - 14.1 % [facility] Mean Platelet Volume 11.5 7.6 - 12.9 fL [facility] NRBC% auto 0.0 % [facility] NRBC Absolute 0.000 0.000 - 0.000 x10(3)/mc L [facility] Blood 03/28/2024 7:24 AM EDT 03/28/2024 7:51 AM EDT Narrative Resulting Agency Comment Spec In Lab Soo Lyn MD HEMATOLOGY ORDERABLE S [facility] [place] [address] * (ABNORMAL) Comprehensive metabolic panel (non-fasting) (03/28/2024 7:24 AM EDT) Glucose 118 65 - 199 mg/dL [facility] Comment:Diabetes: >=200 mg/d L plus symptoms Blood Urea Nitrogen 31(H) 8 - 18 mg/dL [facility] Creatinine 2.08(H) 0.70 - 1.20 mg/dL [facility] Sodium 139 135 - 145 mmol/L [facility] Potassium 4.5 3.5 - 5.0 mmol/L [facility] Comment: Please note: ??Patients with WBC >100,000 may have falsely elevated Potassium levels. ??For accurate Potassium quantification in these patients send serum separator tube (gold top) for subsequent determinations. ??Contact the Clinical Chemistry Laboratory if there are any questions. Chloride 104 98 - 107 mmol/L [facility] Carbon Dioxide 21(L) 22 - 31 mmol/L [facility] Anion Gap 14 5 - 15 mmol/L [facility] Calcium 9.5 8.5 - 10.5 mg/dL [facility] Protein, Total 7.2 6.1 - 8.0 g/dL [facility] Albumin 4.1 3.2 - 5.2 g/dL [facility] Aspartate Aminotransferase 16 0 - 30 unit/L [facility] Alanine Aminotransferase 13 0 - 30 unit/L [facility] Alkaline Phosphatase 144(H) 35 - 105 unit/L [facility] Bilirubin, Total 0.5 0.2 - 1.3 mg/dL [facility] Est Glomerular Filtration Rate 27(L) >=60 mL/min/1. 73 m?? [facility] Comment: This patient's estimated [...] urine creatinine clearance. Assignment of CKD stage 1-5 for patients with an eGFR near the transition point between stages may be based on clinical assessment of muscle mass and symptoms in addition to eGFR. Blood VENOUS BLOOD SPECIMEN / Unknown 03/28/2024 7:24 AM EDT 03/28/2024 7:51 AM EDT Narrative Resulting Agency Comment Spec In Lab Soo Lyn MD CHEMISTRY ORDERABLES [facility] [place] [address] * TSH (03/28/2024 7:24 AM EDT) Thyroid Stimulating Hormone 3.34 0.27 - 4.20 mcIU/mL [facility] Comment: Reference Interval (mcIU/mL): Females: ??First Trimester: 0.23-3.88 ??Second Trimester: 0.22-3.90 ??Third Trimester: 0.44-4.66 Blood VENOUS BLOOD SPECIMEN / Unknown 03/28/2024 7:24 AM EDT 03/28/2024 7:51 AM EDT Narrative Resulting Agency Comment Spec In Lab Soo Lyn MD CHEMISTRY ORDERABLES Performing Organization Address City/[facility]/ZIP Co de Phone Number [facility] [place] [address] * T4, free (03/28/2024 7:24 AM EDT) Free T4 1.17 0.93 - 1.70 ng/dL [facility] Comment: Reference Interval (ng/dL): Females: ??First Trimester: 0.97-1.68 ??Second Trimester: 0.77-1.51 ??Third Trimester: 0.77-1.49 Blood VENOUS BLOOD SPECIMEN / Unknown 03/28/2024 7:24 AM EDT 03/28/2024 7:51 AM EDT Narrative Resulting Agency Comment Spec In Lab Soo Lyn MD CHEMISTRY ORDERABLES Performing Organization Address [facility] Co de Phone Number [facility] [place] [address] documented in this encounter Visit Diagnoses Diagnosis Malignant neoplasm of upper-outer quadrant of left breast in female, estrogen receptor negative documented in this encounter Administered Medications Inactive Administered Medications - up to 3 most recent administrations Medication Order MAR Action Action Date Dose Rate Site sodium chloride 0.9 % (flush) (BD PosiFlush Normal Saline 0.9) flush 5-20 mL 5-20 mL, Intravenous, EVERY 1 MIN PRN, Starting on 03/28/24 at 0711, Until Chelsea 03/29/24 at 0434, Line Care, Flush pertains to all indwelling lines. Flush per protocol found in the job aid using the link provided on this medication record. Refer to Intravenous (IV) Job Aid: Adult Flushing & Catheter Care (9054) job aid for additional information regarding guidelines and administration., Routine Given 03/28/2024 7:26 AM EDT 20 mLs documented in this encounter Care Teams Gaming Department Head Relationship Specialty Start Date End Date Gaudencio Scales DO [address] [place] [address] PCP - General Family Medicine 11/28/23 documented as of this encounter
--- OUTSIDE RECORDS SUMMARY | 2024-07-27 12:47 | XMS_ITS | Encounter Summary ---
Author Organization [facility] Address [facility] [place] [address] Care Team Providers Care Resin Shaver Name Role Phone Guadencio Scales Primary Care Provider [phone] Encounter Details Date Type Department Care Team (Late st Contact Info) Description 04/11/2024 Orders Only Hematology [place] [address] Soo Lyn MD [facility] [place] [address] Social History Tobacco Use Types Packs/Day Years [...] from your doctor or pharmacy? Rarely 02/28/2024 [facility] Utilities Answer Date Recorded In the past 12 months has e [employer], gas, oil, or water [employer] threatened to shut off services in your [...] time in the past 12 m [facility], were you homeless or living in a [...] 8:40 AM EST Hospital [place] [address] Jr Fulton MD [facility] [address] [place] [address] 07/30/2024 8:45 AM EST Appointment Mammography at [place] [address] Jr Fulton MD [facility] [place] [address] 07/30/2024 9:20 AM EST Hospital Encounter Mammography at [place] [address] Jr Fulton MD [facility] [place] [address] 07/30/2024 10:51 AM EST Hospital Encounter Outpatient Surgery Center [address] Jr Fulton MD [facility] [place] [address] 07/30/2024 10:51 AM EST Anesthesia Event Outpatient [facility] [place] [address] Megan Orona [place] [address] 07/30/2024 10:51 AM EST - 07/30/2024 1:11 PM EST Surgery [facility] [place] [address] Jr Fulton MD [facility] [place] [address] MASTECTOMY PARTIAL (WRVU 10.13) 08/22/2024 2:00 PM EST Office Visit General Surgery at [address] Cindy Pierce APRN [facility] [place] [address] 08/22/2024 3:00 PM EST Office Visit Hematology [place] [address] Soo Lyn MD [facility] [address] [place] [address] 08/27/2024 9:30 AM EST Scheduled View Only Radiation Oncology at [address] [phone] [address] [place] 08/27/2024 10:00 AM EST Office Visit Radiation Oncology at [address] [phone] Paradise Prado MD [facility] DR [place] [address] 2024 1:00 PM EDT Office Visit Cardiology at [address] [place] [phone] Ham Montenegro MD [facility] [address] Scheduled Procedures Name Priority Associated Diagnoses Date/Ti [...] on filedocumented in this encounter Care Teams Resin Shaver Relationship Specialty Start Date End Date Gaudencio Scales DO [address] [place] [address] PCP - General Family Medicine 11/28/23 documented as of this encounter
--- OUTSIDE RECORDS SUMMARY | 2024-07-27 12:47 | XMS_ITS | Encounter Summary ---
Author Organization [facility] Address [facility] [place] [address] Care Team Providers Care Hydrology Professor Name Role Phone Gaudencio Scales Antoine VERGARA Primary Care Provider Reason for Visit * Reason Onset Date Comments Rash 04/05/2024 Encounter Details Date Type Department Care Team (Late st Contact Info) Description 04/05/2024 Telephone Hematology [place] [address] Nichol Perez RN INFUSION ROOM Rash Social History Tobacco Use Types Packs/Day Years [...] doctor or pharmacy? Rarely 02/28/2024 [facility] Utilities Answer Date Recorded In the past 12 months has [employer], gas, oil, or water [employer] threatened to shut off services in your [...] any time in the past 12 m [facility], were you homeless or living in a chcf (including now)? No 02/28/2024 IPV Inpatient Questions [...] Telephone Encounter - Paradise Contreras PA - 04/05/2024 5:05 PM EDT Reviewed pt hx and recent notes, approved, please ensure proper f/u visits. Thank you for your time and help, Paradise Contreras PA-C * Telephone Encounter - Nichol Perez RN - 04/05/2024 4:39 PM EDT Received call from pt who stated she has a rash on her neck that developed yesterday morning. Very itchy. It's 'really red', 'kori looks as if there are a few white bubbles. No rash elsewhere. Her mouth feels bumpy, on her gums. No pain in her mouth except one tiny spot on the bottom of her mouth.No swelling of tongue or lips, no difficulty w/ swallowing or breathing, no chest tightness. She sits outside a lot, tries to stay out of the sun. She put some cortisone cream on it w/o effect. Please send in photo, will discuss w/ providers. Plan per BEE Goyal and Soo Lyn MD: likely docetaxel photosensitivity, emollients, supportive care Pt verbalized understanding and agreement and knows to call clinic with any concerns and/or questions. documented in this encounter Plan of Treatment Upcoming Encounters Date Type Department Care Team (Latest Contact Info) Description 07/30/2024 8:40 AM EST Hospital Encounter Mammography at [place] [phone] Jr Fulton MD [facility] [place] [address] 07/30/2024 8:45 AM EST Appointment [place] [phone] Jr Fulton MD [facility] [place] [address] 07/30/2024 9:20 AM EST Hospital Encounter [place] [phone] Jr Fulton MD [facility] [place] [address] 07/30/2024 10:51 AM EST Hospital Encounter Outpatient Surgery Center [place] [phone] Jr Fulton MD [facility] [place] [address] 07/30/2024 10:51 AM EST Anesthesia Event [place] [place] [address] Megan Orona APRN [place] [address] 07/30/2024 10:51 AM EST - 07/30/2024 1:11 PM EST Surgery Out[facility] [place] [phone] Jr Fulton MD [facility] [place] [address] MASTECTOMY PARTIAL (WRVU 10.13) 08/22/2024 2:00 PM EST Office Visit General Surgery at [address] Cindy Pierce APRN [facility] [place] [place] [address] 08/22/2024 3:00 PM EST Office Visit Hematology and Oncology at [place] [phone] Soo Lyn MD [facility] [place] [address] 08/27/2024 9:30 AM EST Scheduled View Only Radiation Oncology at [address] [phone] [facility] [place] 08/27/2024 10:00 AM EST Office Visit Radiation Oncology at [address] [phone] Paradise Prado MD [facility] [place] [address] 2024 1:00 PM EDT Office Visit Cardiology at [address] [place] [phone] Ham Montenegro MD [facility] [place] [address] Scheduled Procedures Name Priority Associated Diagnoses Date/Ti [...] on filedocumented in this encounter Care Teams Hydrology Professor Relationship Specialty Start Date End Date Gaudencio Scales DO [address] [place] [address] PCP - General Family Medicine 11/28/23 documented as of this encounter
--- OUTSIDE RECORDS SUMMARY | 2024-07-27 12:47 | XMS_ITS | Encounter Summary ---
Author Organization [facility] [place] [address] Care Team Providers Care Attending Anesthesiologist Name Role Phone Gaudencio Scales DO Primary Care Provider [phone] Reason for Visit * Reason Onset Date Comments Follow-up 04/02/2024 Post cycle one c hemo Encounter Details Date Type Department Care Team (Late st Contact Info) Description 04/02/2024 Telephone Hematology [place] [address] Zoraida Vasquez, RN Follow-up (Post cycle one chemo) Social History Tobacco Use Types Packs/Day Years [...] from your doctor or pharmacy? Rarely 02/28/2024 [employer] Utilities Answer Date Recorded In the past 12 months has e [employer], gas, oil, or water [employer] threatened to shut off services in your [...] time in the past [address] [facility], were you homeless or living in [...] Telephone Encounter - Zoraida Vasquez RN - 04/02/2024 7:47 AM EDTSummary: Post cycle one chemo Chemotherapy Follow-up Call Placed call to patient to assess tolerance of first time chemotherapy treatment. Regimen received: CARBOplatin / DOCEtaxeL / PEMBROLIZUMAB /neulasta Date of treatment: 03/28 Assessment: Symptom Present (yes[y]/no[n]/ stable[s] from baseline) Additional information/Assessment GI Nausea n Vomiting n Nausea medication y Tolerating diet Low appetite 50% Maintaining fluid intake (indicate volume) y 4 x16 oz. And coffee giinger brisa or gator aid Bowel movements regular n Diarrhea y Imodium one tablet Mouth sores n General Pain (0 none - 10 high) 6/10 Oxy takes to a 3/10. Using pain medications yes tylenol Fever n Neuro Level of fatigue (0 - 5) 2-3 Resting and trying to be active 30 min power nap Falls n Numbness/tingling in arms/legs n Cognitive changes n Skin Skin changes n Pinpoint red dots n Other s/s of bleeding n IV site/VAD problems n Musculoskeletal Joint swelling or tenderness n Arthralgias or myalgias y Voiding problems y Color and quality of urine Light yellow Cardio-pulmonary Shortness of breath n Chest pain n Swelling in legs n Calf pain or tenderness n Cough (productive/non-productive) n Psychosocial Coping Well. Baby brother lives next store. Need prescription renewals n Other issues : Still wants tx moved up to [facility]. Also 05/08 appt why split needs to drive. Can we movethese. Why cannot she drink dark colored soda? Education provided: Bone pain. Claritin she is taking. Percocet is helping. Do not exceed 3000 mg total including percocet. Plan: Reinforced to patient/care-decorating inspector to call facility 11/04 with any new/worsening signs and symptoms orconcerns or questions. Phone number provided. She thinks it is starting to kick in. Knees elbow and neck. Brandon taking tylenol 500 mg 2x day. 3000 mg total. Pt verbalized understanding and is in agreement with plan. documented in this encounter Plan of Treatment Upcoming Encounters Date Type Department Care Team (Latest Contact Info) Description 07/30/2024 8:40 AM [facility] Hospital [place] [address] Jr Fulton MD [facility] [place] [address] 07/30/2024 8:45 AM EST Appointment Mammography at [place] [address] Jr Fulton MD [facility] [place] [address] 07/30/2024 9:20 AM EST Hospital Encounter Mammography at [place] [address] Jr Fulton MD [facility] [place] [address] 07/30/2024 10:51 AM EST Hospital Encounter [place] [address] Jr Fulton MD [facility] [place] [address] 07/30/2024 10:51 AM EST Anesthesia Event Outpatient Surgery Center [place] [address] Megan Orona [place] [address] 07/30/2024 10:51 AM EST - 07/30/2024 1:11 PM EST Surgery [facility] [place] [address] Jr Fulton MD [facility] [place] [address] MASTECTOMY PARTIAL (WRVU 10.13) 08/22/2024 2:00 PM EST Office Visit General Surgery at [address] Cindy Pierce APRN [facility] [place] [address] 08/22/2024 3:00 PM EST Office Visit Hematology [place] [address] Soo Lyn MD [facility] [place] [address] 08/27/2024 9:30 AM EST Scheduled View Only Radiation Oncology at [address] [phone] Rad NurseSt Ovalles 08/27/2024 10:00 AM EST Office Visit Radiation Oncology at [address] [phone] Paradise Prado MD [facility] [place] [address] 2024 1:00 PM EDT Office Visit Cardiology at [address] [place] [phone] Ham Montenegro MD [facility] [place] [address] Scheduled Procedures Name Priority Associated Diagnoses Date/Ti [...] on filedocumented in this encounter Care Teams Attending Anesthesiologist Relationship Specialty Start Date End Date Gaudencio Scales DO [address] [place] [address] PCP - General Family Medicine 11/28/23 documented as of this encounter
--- OUTSIDE RECORDS SUMMARY | 2024-07-27 12:47 | XMS_ITS | Encounter Summary ---
Author Organization [facility] Address [facility] [place] [address] Care Team Providers Care Tower Equipment Installer Name Role Phone Loyda Gaudencio Antoine VERGARA Primary Care Provider [phone] Reason for Visit * Reason Onset Date Comments Patient Education 03/23/2024 Pre cycle 1 ch emo Encounter Details Date Type Department Care Team (Late st Contact Info) Description 03/23/2024 Telephone Hematology [place] [address] Zoraida Vasquez, RN Patient Education (Pre cycle 1 chemo) Social History Tobacco Use Types Packs/Day [...] from your doctor or pharmacy? Rarely 02/28/2024 [facility] Utilities Answer Date Recorded In the past 12 months has e [employer], gas, oil, or water [employer] threatened to shut off services in your [...] Telephone Encounter - Zoraida Vasquez RN - 03/23/2024 7:12 AM EDTSummary: Pre cycle 1 chemo Pre-chemotherapy Telephone Call Call placed to patient to confirm first time chemotherapy visit scheduled for 03/28 - LABS 7:30 9:00infusion 1030 Left voice mail message with Oksana Patient scheduled to receive: CARBOplatin / DOCEtaxeL / PEMBROLIZUMAB/ neulasta on-Pro Reminded patient to call [phone] with any questions or symptoms before or after treatment. Joann Heart, RN called and spoke to patient 03/26-see note. documented in this encounter Plan of Treatment Upcoming Encounters Date Type Department Care Team (Latest Contact Info) Description 07/30/2024 8:40 AM EST Hospital Encounter Mammography at [place] [phone] Jr Fulton MD [facility] [place] [address] 07/30/2024 8:45 AM EST [place]oint[place] [address] Jr Fulton MD [facility] [place] [address] 07/30/2024 9:20 AM EST Hospital Encounter Mammography at [place] [phone] Jr Fulton MD [facility] [place] [address] 07/30/2024 10:51 AM EST Hospital Encounter Outpatient Surgery Center [place] [phone] Jr Fulton MD [facility] [place] [address] 07/30/2024 10:51 AM EST Anesthesia Event Outpatient [place] [address] Megan Orona [place] [address] 07/30/2024 10:51 AM EST - 07/30/2024 1:11 PM EST Surgery Outpatient [place] [address] Jr Fulton MD [facility] [place] [address] MASTECTOMY PARTIAL (WRVU 10.13) 08/22/2024 2:00 PM EST Office Visit General Surgery at [address] Cindy Pierce APRN [facility] [address] 08/22/2024 3:00 PM EST Office Visit Hematology and Oncology at [place] [phone] Soo Lyn MD [facility] [place] [address] 08/27/2024 9:30 AM EST Scheduled View Only Radiation Oncology at [address] [phone] St Josr Whitley 08/27/2024 10:00 AM EST Office Visit Radiation Oncology at [address] [phone] 79 Paradise Prado MD [facility] [place] [address] 2024 1:00 PM EDT Office Visit Cardiology at [address] [place] [address] Ham Montenegro MD [facility] [place] [address] Scheduled Procedures Name Priority Associated Diagnoses Date/Ti [...] on filedocumented in this encounter Care Teams Tower Equipment Installer Relationship Specialty Start Date End Date Gaudencio Scales DO [address] [place] [address] PCP - General Family Medicine 11/28/23 documented as of this encounter
--- OUTSIDE RECORDS SUMMARY | 2024-07-27 12:47 | XMS_ITS | Encounter Summary ---
Author Organization [facility] Address [facility] [place] [address] Care Team Providers Care Hot Frame Tender Name Role Phone Gaudencio Scales Antoine VERGARA Primary Care Provider [phone] Reason for Visit * Reason Comments Follow-up Encounter Details Date Type Department Care Team (Late st Contact Info) Description 03/28/2024 9:00 AM EDT Office Visit Hematology [place] [phone] Soo Lyn MD [facility] [place] [address] Malignant neoplasm of upper-outer quadrant of left [...] any time in the past 12 m [facility], were you homeless or living in a prison (including now)? No 02/28/2024 IPV Inpatient Questions [...] Sign Reading Time Taken Comments Blood Pressure 117/62 03/28/2024 8:09 AM EDT Pulse 77 03/28/2024 8:09 AM EDT Temperature 36.7 ??C (98.1 ??F) 03/28/2024 8:09 AM ED T Respiratory Rate 18 03/28/2024 8:09 AM EDT Oxygen Saturation 95% 03/28/2024 8:09 AM EDT Inhaled Oxygen Concentration - - Weight 105.7 kg (233 lb 0.4 oz) 03/28/2024 8:09 AM EDT Height 165.6 cm (5' 5.2) 03/28/2024 8:09 AM EDT Body Mass Index 38.54 03/28/2024 8:09 AM EDT documented in this encounter Progress Notes * Soo Lyn MD - 03/28/2024 9:00 AM EDT Images from the original note were not included. [facility] Patient ID: Oksana Betancourt is a 58 y.o. female referred by Soo Lyn for consultation regarding breast cancer CC: breast cancer DIAGNOSIS: cT1 N0MX left breast cancer, triple negative PATH: ER/UT negative, HER2 unamplified and a CURRENT TX: 03/28/2024: Cycle 1 day 1 of carboplatin/docetaxel and pembrolizumab. Carboplatin dose reduced to 4.5 AUC due to JOHN. HPI and ONCOLOGIC HX: Oksana Betancourt is a 58 y.o. 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 She is also on Eliquis. 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 ER/UT negative HER2 unamplified. 03/06/2024: Bilateral MRI showing [...] Left breast lesion #2 biopsy was performed. Report is pending. 03/28/2024: Cycle 1 day 1 of carboplatin/docetaxel and pembrolizumab. Carboplatin dose reduced to 4.5 AUC due to JOHN. Risk Factors: history: A1, boy and girl Age at delivery of first child: 16 OCP use: Yes Age at menarche: 12 Age at menopause: Hysterectomy 20+ years ago (for fibroids) HRT use: Never Family history: Half sister from breast cancer at the age of 46. Prior breast biopsies: no Interval History: Oksana is here for follow-up. She has been very anxious lately. She has baseline nausea. Due to heranxiety she thinks her nausea has worsened a bit. She is taking antiemetics. She has Compazine and Zofran at home. She met with pharmacist yesterday and received education and has received Compazine and Zofran as well as dexamethasone. She has poor appetite and has not been drinking or eating much over the last few days. She denies any dizziness or lightheadedness. She does have diffuse bruising.She denies any chest pain. No chest pain or shortness of breath. She denies any orthopnea or PND. She has been on ASA but has not used lately. On 03/26/2024 she had to go to ER due to persistent bleeding following biopsy of the lesion #2 on her left breast. Review of Systems 10 point review system is negative other than HPI PAST MEDICAL HISTORY: No past medical history on file. Past Surgical History: Procedure Laterality Date IR MEDIPORT PLACEMENT 03/23/2024 IR Mediport Placement 03/23/2024 Cely Schmitt PA [facility] INTERVENTION[facility] RAD Patient Active Problem List Diagnosis Code NSTEMI (non-ST elevated myocardial infarction) I21.4 Malignant neoplasm of upper-outer quadrant of left breast in female, estrogen receptor negative C50.412, Z17.1 MEDICATIONS: Current Outpatient Medications: dexAMETHasone (Decadron) 4 mg tablet, Take 1 tablet by mouth daily. Take on days 2-4 for each chemotherapy cycle, Disp: 20 tablet, Rfl: 0 prochlorperazine (Compazine) 10 mg tablet, Take 1 tablet by mouth every 6 hours as needed for Nausea., Disp: 30 tablet, Rfl: 3 QUEtiapine (SEROquel) 25 mg tablet, Take 0.5 tablets by mouth daily as needed. May take up to one whole tab, Disp: 30 tablet, Rfl: 0 QUEtiapine (SEROquel) 50 mg tablet, Take 1 [...] mouth daily., Disp: 90 tablet, Rfl: 3 nitroGLYcerin (Nitrostat) 0.4 mg sublingual tablet, Place 1 tablet under the tongue every 5 minutesas needed for Chest pain., Disp: 90 tablet, Rfl: 12 ipratropium-albuteroL (Duoneb) 0.5 mg-3 mg(2.5 mg base)/3 [...] mouth 2 times daily., Disp: , Rfl: ondansetron (Zofran) 4 mg tablet, Take 4 mg by mouth every 8 hours as needed., Disp: , Rfl: oxyCODONE-acetaminophen (Percocet) 10-325 mg tablet, Take 1 tablet by mouth every 8 hours as needed., Disp: , Rfl: QUEtiapine (SEROquel) 100 mg tablet, Take 100 mg by mouth nightly., Disp: , Rfl: levothyroxine (Synthroid) 100 mcg tablet, Take 100 mcg by mouth., Disp: , Rfl: omeprazole (PRILOSEC) 20 mg capsule, 20M Capsule(s), PO, Once daily, Disp: , Rfl: ALLERGIES: No Known Allergies SOCIAL HISTORY: Social [...] date: 11/17/1981 Quit date: 11/17/2021 Years since quittin.3 Smokeless tobacco: Never Substance and Sexual Activity [...] drugs Lives alone [place] to live in [place] Does not work She worked for [employer] FAMILY HISTORY: Family History Problem Relation Age of Onset Skin Cancer Father Cancer Maternal Grandmother suspected, unsure primary Cancer Paternal Grandmother unsure primary Breast Cancer Paternal Half-Sister 46 of same at age 46 Cancer Maternal Uncle suspected, unsure primary Ovarian Cancer Neg Hx Objective: Physical Exam There is no height or weight on file to calculate BSA. Wt Readings from Last 3 Encounters: 03/14/24 106.2 kg (234 lb 2.1 oz) 02/28/24 110.7 kg (244 lb 0.8 oz) 12/04/23 106.6 kg (235 lb 1.6 oz) ECOG PS: 0 VS: Constitutional: She [...] and no skin change. Left breast exhibits very palpable mass in the deep planes without distinct edges at 1 o'clock position slightly tender to touch. Left axillary tail biopsy with ecchymosis. No active bleeding. Abdominal: Soft. She exhibits no distension. There [...] affect. Her behavior is normal. LABORATORY TESTS: No results found for this or any previous visit (from the past 24 hour(s)). Labs reviewed from past. She has repeat labs pending on 03/06/2024. IMAGING: I personally reviewed the images as reported above Assessment and Plan: Oksana Betancourt is a 58 y.o. female milligram located past medical history of CKD stage III, bipolar disorder, COPD, hypothyroidism and non-STEMI as well as heart failure is diagnosed with triple negative breast cancer. #1 Breast cancer -- cT1c N0Mx left breast triple negative cancer grade 3. She also has a lesion #2 in the axillary tail of the size of 1 cm in the left breast that was biopsied on 03/26/2024. Final report is pending however this could be axillary tail lymph node. Due to her cardiac history we decidedto proceed with neoadjuvant chemoimmunotherapy sparing her from anthracycline as well. I discussed the case with survival specialist inquiring about the optimal time to stop antiplatelet therapy. Per cardiology antiplatelet therapy could be stopped for surgical purposes if needed right now.However due to her multifocal disease possible lymph node involvement we decided to proceed with the neoadjuvant chemotherapy. We opted for carboplatin AUC of 6+ docetaxel 75 mg/m?? plus pembrolizumab 200 mg IV every 3 weeks for a total of 6 cycles in the neoadjuvant setting. This is per NeoPACT trial in triple negative breast cancer patients that showed a pathological complete response of 59%. The 3-year disease-free survival was 96% in a patient achieving PCR and 86% in overall patient population. Today she will start cycle 1 day one of her carboplatin/docetaxel/pembrolizumab. She does have an JOHN with a serum creatinine of over 2 and GFR of 29. Target total dose of carboplatin due to her GFR would be 325 mg. Therefore I will decrease her carboplatin dose to AUC of 4.5. #2 Chemotherapy/Clinical trial --cycle 1 day 1 of docetaxel/carboplatin/pembrolizumab with Neulastasupport. Plan for 6 cycles of chemoimmunotherapy followed by surgery. #3 Fatigue --none #4 Menopausal symptoms --none #5 Bone health --no history of osteopenia or osteoporosis #6 Medication management --gabapentin dose was decreased due to JOHN. She will receive carboplatin with AUC of 4.5. I am also concerned about her nausea. She does have a baseline nausea and occasionalvomiting. She will need aggressive antiemetic regimen. #7 Genetics--referred #8 anxiety and depression-she is Seroquel. I have referred her to [facility] psychiatry. I will also starther on 10 mg of Celexa. #9 recent history of NSTEMI requiring stent placement on Plavix. Per cardiology okay to hold antiplatelet therapy on surgery. Potential Clinical Trials: -N/A Plan Summary and Follow up: -Proceed with cycle 1 day 1 of docetaxel/carboplatin/pembrolizumab. Carboplatin dose 4.5 AUC for this cycle and reassess the renal functions were dissected to determine the optimal dose. She will also get G-CSF support - I will prescribe 10 mg of Celexa for anxiety and depression - Psychiatry consultation, currently scheduled for later this month - She will like to see rest of her treatment at [place]. We will try to make arrangements. If this is not possible in 3 weeks, she will come back to see her cycle #2 chemoimmunotherapy. - Follow-up on the biopsy of the left breast lesion #2. David Lyn MD, MS Medical Oncology Comprehensive Breast Oncology Program Page # [phone] 07/11/24, 12:45 AM [facility] documented in this encounter Plan of Treatment Upcoming Encounters Date Type Department Care Team (Latest Contact Info) Description 07/30/2024 8:40 AM EST Hospital Encounter Mammography at [place] [phone] Jr Fulton MD [facility] [place] [address] 07/30/2024 8:45 AM EST Appointment Mammography at [place] [phone] Jr Fulton MD [facility] [place] [address] 07/30/2024 9:20 AM EST Hospital Encounter Mammography at [place] [phone] Jr Fulton MD [facility] [address] [place] [address] 07/30/2024 10:51 AM EST Hospital Encounter Outpatient Surgery Center [place] [phone] Jr Fulton MD [facility] [place] [address] 07/30/2024 10:51 AM EST Anesthesia Event [place] [phone] Megan Oron[place] [address] 07/30/2024 10:51 AM EST - 07/30/2024 1:11 PM EST Surgery Outpatient [facility] [place] [phone] Jr Fulton MD [facility] [place] [address] MASTECTOMY PARTIAL (WRVU 10.13) 08/22/2024 2:00 PM EST Office [place] [address] Cindy Pierce APRN [facility] [place] [address] 08/22/2024 3:00 PM EST Office Visit Hematology and Oncology at [place] [phone] Soo Lyn MD [facility] [place] [address] 08/27/2024 9:30 AM EST Scheduled View Only Radiation Oncology at [address] [phone] St Josr Whitley 08/27/2024 10:00 AM EST Office Visit Radiation Oncology at [address] [phone] Paradise Prado MD [facility] [place] [address] 2024 1:00 PM EDT Office Visit Cardiology at [address] [place] [address] Ham Montenegro MD [facility] [place] [address] Scheduled Procedures Name Priority Associated Diagnoses Date/Ti [...] negative documented in this encounter Care Teams Hot Frame Tender Relationship Specialty Start Date End Date Gaudencio Scales DO [address] [place] [address] PCP - General Family Medicine 11/28/23 documented as of this encounter
--- OUTSIDE RECORDS SUMMARY | 2024-07-27 12:47 | XMS_ITS | Encounter Summary ---
Author Organization [facility] Address [facility] [place] [address] Care Team Providers Care Shortage Worker Name Role Phone Gaudencio Scales Primary Care Provider [phone] Reason for Visit * Reason Comments Medication Refill Encounter Details Date Type Department Care Team (Late st Contact Info) Description 04/07/2024 Refill Hematology [place] [phone] Tatiana Rosario APRN [facility] [place] [address] Social History Tobacco Use Types Packs/Day Years [...] from your doctor or pharmacy? Rarely 02/28/2024 [facility] Utilities Answer Date Recorded In [...] any time in the past 12 m [facility], were you homeless or living in [...] 8:40 AM EST Hospital Encounter Mammography at [facility] [place] [address] Jr Fulton MD [facility] [address] [place] [address] 07/30/2024 8:45 AM EST Appointment Mammography at [place] [address] Jr Fulton MD [facility] [address] 07/30/2024 9:20 AM EST Hospital Encounter Mammography at [address] rJ Fulton MD [facility] [place] [address] 07/30/2024 10:51 AM EST Hospital Encounter Outpatient Surgery Center [place] [address] Jr Fulton MD [facility] [place] [address] 07/30/2024 10:51 AM EST Anesthesia Event [facility] [place] [address] Megan Orona [place] [address] 07/30/2024 10:51 AM EST - 07/30/2024 1:11 PM EST Surgery [facility] [address] Jr Fulton MD [facility] [place] [address] MASTECTOMY PARTIAL (WRVU 10.13) 08/22/2024 2:00 PM EST Office Visit General Surgery at [address] Cindy Pierce APRN [facility] [place] [address] 08/22/2024 3:00 PM EST Office Visit Hematology [place] [address] Soo Lyn MD [facility] [place] [address] 08/27/2024 9:30 AM EST Scheduled View Only Radiation Oncology at [address] [phone] Rad Nurse, [facility] 08/27/2024 10:00 AM EST Office Visit Radiation Oncology at [address] [phone] Paradise Prado MD [facility] [place] [address] 2024 1:00 PM EDT Office Visit Cardiology at [address] [place] [address] Ham Montenegro MD [facility] [place] [address] Scheduled Procedures Name Priority Associated Diagnoses Date/Ti [...] on filedocumented in this encounter Care Teams Shortage Worker Relationship Specialty Start Date End Date Gaudencio Scales DO [address] [place] [address] PCP - General Family Medicine 11/28/23 documented as of this encounter
--- OUTSIDE RECORDS SUMMARY | 2024-07-27 12:47 | XMS_ITS | Encounter Summary ---
Author Organization [facility] [place] [address] Care Team Providers Care Brickmason Helper Name Role Phone Gaudencio Scales Antoine VERGARA Primary Care Provider [phone] Encounter Details Date Type Department Care Team (Late st Contact Info) Description 03/26/2024 Telephone Hematology and On[facility] at [facility] [place] [address] Joann Heart RN Social History Tobacco Use Types Packs/Day [...] from your doctor or pharmacy? Rarely 02/28/2024 [facility] Utilities Answer Date Recorded In [...] in the past 12 m [facility], were you homeless or living in a mcc (including now)? No 02/28/2024 IPV Inpatient Questions [...] encounter Miscellaneous Notes * Telephone Encounter - Joann Heart RN - 03/26/2024 9:13 AM EDT Pre-chemotherapy Telephone Call Call placed to patient to confirm chemotherapy visit scheduled for 03/28/24. Per beacon plan, Ms. Betancourt is receiving 6 cycles at 21 day intervals of carboplatin, docetaxel, and pembrolizumab. Discussed labs and hold parameters of ANC, PLT, and liver enzymes. Other hold parameters for the pembrolizumab which will be assessed prior to each infusion. We discussed indications for her Pre medications: - cinvanti, aloxi, dexamethasone, benadryl, pepcid and we discussed each Chemotherapy: - Pem brolizumab 30 minutes, Docetaxel 60 minutes, and Carboplatin 30 minutes as well as Post chemo medications: OnPro Neulasta. Confirmed that the patient: knows where to park understands where the infusion suite is located and where to arrive has received chemotherapy teaching and educational materials knows that if they will be here through noon, we offer lunch and snacks understands that Infusing chemotherapy often takes a few hours encourage patient to bring books or a computer (wireless access available) knows to wear loose comfortable clothing understands that they can only have one (1) visitor in infusion suite at a time Reminded patient to call [phone] with any questions or symptoms before or after treatment. Cancall table machine operator [phone] whenever office closed - weekends, nights, after hours, holidays, etc. For any needs. Always call immediately for any temperature 100.4 F or higher. Note sent to Dr. Lyn, pt inquiring if subsequent infusions can be done at [facility]. Pt aware provider will discuss on Tuesday. documented in this encounter Plan of Treatment Upcoming Encounters Date Type Department Care Team (Latest Contact Info) Description 07/30/2024 8:40 AM EST Hospital [place] [address] Jr Fulton MD [facility] [place] [address] [place] [address] 07/30/2024 8:45 AM EST [place] [address] Jr Fulton MD [facility] [place] [address] 07/30/2024 9:20 AM EST Hospital [place] [address] Jr Fulton MD [facility] [place] [address] 07/30/2024 10:51 AM EST Hospital Encounter Out[facility] [place] [phone] Jr Fulton MD [facility] [place] [address] 07/30/2024 10:51 AM EST Anesthesia Event [facility] [place] [phone] Megan [place] [address] 07/30/2024 10:51 AM EST - 07/30/2024 1:11 PM EST Surgery [facility] [place] [phone] Jr Fulton MD [facility] [place] [address] MASTECTOMY PARTIAL (WRVU 10.13) 08/22/2024 2:00 PM EST Office Visit General Surgery at [place] [phone] Cindy Pierce APRN [facility] [place] [address] 08/22/2024 3:00 PM EST Office Visit Hematology [place] [address] Soo Lyn MD [facility] [place] [address] 08/27/2024 9:30 AM EST Scheduled View Only Radiation Oncology at [address] [phone] St Josr [place] 08/27/2024 10:00 AM EST Office Visit Radiation Oncology at [address] [phone] Paradise Prado MD [facility] RADIATION [place] [address] 2024 1:00 PM EDT Office Visit Cardiology at [address] [place] [address] Ham Montenegro MD [facility] [place] [address] Scheduled Procedures Name Priority Associated Diagnoses Date/Ti [...] on filedocumented in this encounter Care Teams Brickmason Helper Relationship Specialty Start Date End Date Gaudencio Scales DO [address] [place] [address] PCP - General Family Medicine 11/28/23 documented as of this encounter
--- OUTSIDE RECORDS SUMMARY | 2024-07-27 12:47 | XMS_ITS | Encounter Summary ---
Author Organization [facility] Address [facility] [place] [address] Care Team Providers Care Annual Greenhouse Manager Name Role Phone Gaudencio Scales Antoine VERGARA Primary Care Provider [phone] Encounter Details Date Type Department Care Team (Latest Contact Info) Description 03/26/2024 Travel Social History Tobacco Use Types Packs/Day [...] from your doctor or pharmacy? Rarely 02/28/2024 [facility] Utilities Answer Date Recorded In [...] time in the past [address] [facility], were you homeless or living [...] 8:40 AM EST Hospital [place] [phone] Jr Fulton MD [facility] [address] [place] [address] 07/30/2024 8:45 AM EST [place] [phone] Jr Fulton MD [facility] [place] [place] [address] 07/30/2024 9:20 AM EST Hospital Encounter Mammography at [address] Jr Fulton MD [facility] [place] [address] 07/30/2024 10:51 AM EST Hospital Encounter Outpatient [facility] [place] [phone] Jr Fulton MD [facility] [place] [address] 07/30/2024 10:51 AM EST Anesthesia Event Out[facility] [address]1000 Megan [place] [address] 07/30/2024 10:51 AM EST - 07/30/2024 1:11 PM EST Surgery [facility] [address]1000 Jr Fulton MD [facility] [place] [address] MASTECTOMY PARTIAL (WRVU 10.13) 08/22/2024 2:00 PM EST Office Visit General Surgery at [address]1000 Cindy Pierce APRN [facility] [place] [address] 08/22/2024 3:00 PM EST Office Visit [place]ematology [place] [address] Soo Lyn MD [facility] [place] [address] 08/27/2024 9:30 AM EST Scheduled View Only Radiation Oncology at [address] [phone] [address]es 08/27/2024 10:00 AM EST Office Visit Radiation Oncology at [address] [phone] Paradise Prado MD [facility] [place] [address] 2024 1:00 PM EDT Office Visit Cardiology at [address] [address] Ham Montenegro MD [facility] [place] [address] Scheduled Procedures Name Priority Associated Diagnoses Date/Ti [...] on filedocumented in this encounter Care Teams Annual Greenhouse Manager Relationship Specialty Start Date End Date Gaudencio Scales DO [address] [place] [address] PCP - General Family Medicine 11/28/23 documented as of this encounter
--- OUTSIDE RECORDS SUMMARY | 2024-07-27 12:47 | XMS_ITS | Encounter Summary ---
Author Organization [facility] Address [facility] [place] [address] Care Team Providers Care Contract Technician Name Role Phone Gaudencio Scales Primary Care Provider [phone] Encounter Details Date Type Department Care Team (Late st Contact Info) Description 04/10/2024 4:00 PM EDT TH Visit (TeleHealth) Hematology [place] [phone] Tatiana Rosario APRN [facility] [place] [address] Bipolar II disorder (Primary Dx); Malignant neoplasm of upper-outer quadrant of left breast in female, estrogen receptor negative; shelter current use of antipsychotic medication Social History Tobacco Use Types Packs/Day Years [...] from your doctor or pharmacy? Rarely 02/28/2024 [facility] Utilities Answer Date Recorded In [...] as of this encounter Progress Notes * Tatiana Rosario APRN - 04/10/2024 4:00 PM EDT Images from the original note were not included. PSYCHIATRY CONSULTATION AT [facility] FOLLOW UP Time Spent: 30 minutes Location: Oksana is home in [place] Attendee(s): Tatiana Rosario APRN, Oksana Betancourt HISTORY Patient Identification: Oksana Betancourt is a 58 y.o. Female presents today for follow up after their initial psychiatric evaluation on 03/13/24. Patient has breast cancer. Current cancer treatment regiment: carboplatin (Paraplatin) AUC 4.5 IV once every 21 days docetaxel (Taxotere) 75 mg/m2 IV once every 21 days pembrolizumab (Keytruda)200 mg every 21 days Chief Complaint: I think I am doing better. HPI: () At initial evaluation, the most distressing symptom was anxiety. We had increased Seroquel to 150 mg HS with plan to increase further to 200 mg if ineffective. Also added PRN dosing 12.5 mg-25 mg in the morning. Today Oksana states she's doing better with sleep with Seroquel 150 mg at night. She isnot using the low dose for anxiety during the day as it's overall subsided. I have my moments butin general anxiety has decreased and mood is overall level. I just need to get through this. Re: Celexa from Dr. Lyn: did not start as her daughter had terrible side effects with it. Feels she's okay with current regimen. Review that she still needs EKG-can get in [place] [facility] [place]. Need to check Qtc as it was previously prolonged (though did have MS at that time). Seroquel can prolong, as can citalopram. Would be good to know current baseline. Feeling like Zofran is most helpful for nausea and also allows her to eat. Works better for her than the other anti-emetics. States she has two tabs left-I sent a high priority message to Dr. Lyn for refill. Younger brother lives next door-he's 57 - big support and goes to all appointments with Oksana. Hangs out a lot with neighbors during the day when not at appointments. Healthy sense of community. Pertinent Medication Side Effects: denied Patient denies signs/symptoms of christina or hypomania, mood swings, paranoia, or a/v/t/g hallucinations. The patient denies suicidal/homicidal thoughts, intents, or plans. Support and encouragement were provided. PHQ9 Questionnaires Data (Clinic and Pt Entered): Today's value 11/28/2023 PHQ-9: Responses Post 01/17/23 Conversion Little interest or pleasure Not at all Down, depressed, hopeless Not at all PHQ-2 Subscore 0 Most Recent GAD7 GAD7 Questionnaires Data: last 4 values No data to display Problem List: Patient Active Problem List Diagnosis Code NSTEMI (non-ST elevated myocardial infarction) I21.4 Malignant neoplasm of upper-outer quadrant of left breast in female, estrogen receptor negative C50.412, Z17.1 Current Medications: Current Outpatient Medications Medication Sig Dispense Refill diphenhydrAMINE/aluminum-magnesium hydroxide with simethicone/lidocaine (BMX) (6.67 mg-0.83 mg-13.33 mg-1.33 mg/mL) oral liquid Take 20-30 mLs by mouth every 4 hours as needed. 240 mL 3 citalopram (CeleXA) 10 mg tablet Take 1 tablet by mouth daily. 60 tablet 3 dexAMETHasone (Decadron) 4 mg tablet Take 1 tablet by mouth daily. Take on days 2-4 for each chemotherapy cycle 20 tablet 0 prochlorperazine (Compazine) 10 mg tablet Take 1 tablet by mouth every 6 hours as needed for Nausea. 30 tablet 3 QUEtiapine (SEROquel) 25 mg tablet Take 0.5 tablets by mouth daily as needed. May take up to one whole tab (Patient not taking: Reported on 03/28/2024) 30 tablet 0 QUEtiapine (SEROquel) 50 mg tablet Take 1 tablet by mouth nightly. In addition to 100 mg tab. May take up to 200 mg HS if needed for sleep. 60 tablet 0 multivitamin (THERAGRAN) Tablet Take 1 tablet by mouth daily. iron,carb/vit C/vit B12/folic (IRON 100 PLUS ORAL) Take by mouth. atorvastatin (Lipitor) 80 mg tablet Take 1 tablet by mouth Daily at Noon. 90 tablet 3 clopidogreL (Plavix) 75 mg tablet Take 1 tablet by mouth daily. 90 tablet 3 nitroGLYcerin (Nitrostat) 0.[address] 1 tablet under the tongue every 5 minutes as needed for Chest pain. (Patient not taking: Reported on 03/28/2024) 90 tablet 12 ipratropium-albuteroL (Duoneb) 0.5 mg-3 mg(2.5 mg base)/3 mL Solution for Nebulization Take 0.5 mg by nebulization every 4 hours. 1 each 4 furosemide (Lasix) 20 mg tablet Take 1 tablet by mouth daily as needed (weight gain, SOB, volume overload). (Patient not taking: Reported on 03/28/2024) 90 tablet 1 metoprolol succinate XL (Toprol-XL) 50 mg ER 24 hr tablet Take 1 tablet by mouth 2 times daily. 30 tablet 12 apixaban (Eliquis) 5 mg tablet Take 5 mg by mouth 2 times daily. baclofen (Lioresal) 10 mg tablet Take 0.5 tablets by mouth 2 times daily. lamoTRIgine (LaMICtal) 100 mg tablet Take 1 tablet by mouth 2 times daily. ondansetron (Zofran) 4 mg tablet Take 4 mg by mouth every 8 hours as needed. oxyCODONE-acetaminophen (Percocet) 10-325 mg tablet Take 1 tablet by mouth every 8 hours as needed. QUEtiapine (SEROquel) 100 mg tablet Take 100 mg by mouth nightly. levothyroxine (Synthroid) 100 mcg tablet Take 100 mcg by mouth. omeprazole (PRILOSEC) 20 mg capsule 20M Capsule(s), PO, Once daily No current facility-administered medications for this visit. Review of Systems: System Positive Negative Psychiatric X (as per HPI) Constitutional x Integumentary x Eyes/Ears/Sinuses x Cardiac x Respiratory x Gastrointestinal x Genitourinary x Vascular x Musculoskeletal x Neurologic x Hematologic x Endocrine x Allergy x PFSH: (0) Bipolar-highs and lows-did start with a psychiatrist Thinks started about mid- 40's. Thinks highs were more agitated, more irritable. Classic depressive symptoms. Hospitalizations: no Suicide attempts: none Counseling/Therapy: maybe when first started on psych medications Medication Trials: Lamictal, Seroquel Hydroxyzine Xanax? SUBSTANCE USE HISTORY: ETOH: none Drugs: none Nicotine: quit in November Caffeine: 1 coffee in the am FAMILY PSYCHIATRIC HISTORY: No family history of suicide attempts DEVELOPMENTAL/PSYCHOSOCIAL HISTORY: Currently lives in [place]. Her brother lives next door. Oksana was born in [place], then [place]. Moved back here Aug 2023. 12 siblings altogether (4 are half). [place]. Household composition: self Progeny: Children: 2 Grandchildren: 7; one great-grandchild Quality of relationship with children: supportive. Occupation: She worked for [employer] Leisure pursuits: [employer] Daily pursuits: walking Continued engagement in important activities: nosince your diagnosis have you been able to remain involved in activities that are important to you? Level of education: high school diploma/ged Trauma/Abuse History: denies EXAM Constitutional System ? Vital Signs: There were no vitals taken for this visit. Musculoskeletal System ? Muscle Strength/Tone: normal tone, no weakness ? Gait and Station: steady gait, without abnormality Psychiatric System ? General Appearance/Behavior: Well-developed, well nourished female appearing stated age. Dressed in casual weather-appropriate clothing. Cooperative and pleasant. ? Movements: no abnormal movements or tremor ? Speech: regular rate, volume, and tone ? Thought Process: coherent, goal-directed ? Associations: Tight ? Abnormal Thoughts and Perceptions / Thought Content: Focused on Homicidality / Violent Thoughts: Denies Suicidality: Denies Hallucinations: Denies Delusions: None Obsessions: None ? Judgment and Insight: good/good ? Mood & Affect: Mood is hanging in there. Affect is congruent and appropriately reactive ? Orientation: to person, place, time and situation ? Attention/Concentration: grossly intact ? Memory: grossly intact ? Language: normal ? 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 Female with bipolar II disorder, currently in remission. In terms of anxiety, symptoms improved as sleep was quite difficult for her to obtain. With an increase in Seroquel (now at 150 mg) I would like an EKG to monitor Qtc; Oksana should be able to do thatat [facility] without an issue. Will have nursing fax the order if able. Otherwise we will meet in 3 weeks for a general check in. RECOMMENDATIONS/PLAN Safety: SI/HI denied; reviewed office and emergency contact info. Crisis line is [phone] Medications:Seroquel 150 mg HS, lamictal 100 mg BID Additional treatment recommendations: none at this time FOLLOW-UP CARE: 1. Follow up care planned for: May 01 3 pm with this provider 3. Pt is aware is aware of emergency contact procedures and given crisis phone number Routine suicide risk assessment: Acute suicide risk is considered low in light of personal, genetic, and demographic factors. Thank you for consulting me in the care of Oksana Betancourt. I would be happy to see Oksana Betancourt for another consultation in the future if that would be helpful. Please contact me with any questions regarding his care or to collaborate further on this case. For mental health emergencies, call [phone] from anywhere in the [facility]. State specific information for [place] and [place] crisis services are as follows and should be used to access local resources: [facility] Mental Health Crises Services [facility] Crisis Line text or call Visit [email or web address] for further information [place] Call your local [facility] crisis line at: [place]: Counseling Service [facility] [phone] [place]: [facility] [phone] [place]: [facility] [phone] [place]: [facility] [phone] [place]: [facility] [phone] [place] and [place]: [facility] Counseling and Support [phone] [place]: [facility] Mental Health [phone] on weekdays 8AM-4:30PM and [phone] on nights and weekends [place]: [facility] [place]: [facility] [phone] [place]: [facility] Services [phone] [place]: [facility] Services, [place]: [facility]S [place]: HCRS or Text [place] to [address] For further information for [place] residents: https://mentalhealth.[place].gov/services/emergency-services/bbk-zck-lvyg National Suicide Prevention Hotline: For patients cared for in the Department of Psychiatry, you can reach your mental health clinician at [phone]. Tatiana Rosario, VC++ DEVELOPER 04/10/2024 documented in this encounter Plan of Treatment Upcoming Encounters Date Type Department Care Team (Latest Contact Info) Description 07/30/2024 8:40 AM EST Hospital Encounter Mammography at [place] [phone] Jr Fulton MD [facility] [place] [address] 07/30/2024 8:45 AM EST Appointment Mammography at [place] [phone] Jr Fulton MD [facility] [place] [address] 07/30/2024 9:20 AM EST Hospital Encounter Mammography at [place] [phone] Jr Fulton MD [facility] [place] [address] 07/30/2024 10:51 AM EST Hospital Encounter [place] [phone] Jr Fulton MD [facility] [place] [address] 07/30/2024 10:51 AM EST Anesthesia Event [place] [address] Megan Orona APR[place] [address] 07/30/2024 10:51 AM EST - 07/30/2024 1:11 PM EST Surgery [place] [phone] Jr Fulton MD [facility] [place] [address] MASTECTOMY PARTIAL (WRVU 10.13) 08/22/2024 2:00 PM EST Office Visit General [place] [phone] Cindy Pierce APRN [facility] [place] [address] 08/22/2024 3:00 PM EST Office Visit Hematology [place] [address] Soo Lyn MD [facility] [place] [address] 08/27/2024 9:30 AM EST Scheduled View Only Radiation Oncology at [address] [phone] Rad Nurse, [facility] [place] 08/27/2024 10:00 AM EST Office Visit Radiation Oncology at [address] [phone] Paradise Prado MD [facility] [place] [address] 2024 1:00 PM EDT Office Visit Cardiology at [address] [place] [phone] Ham Montenegro MD [facility] [place] [address] Scheduled Procedures Name Priority Associated Diagnoses Date/Ti [...] as of this encounter Visit Diagnoses Diagnosis Bipolar II disorder- Primary Other bipolar disorders Malignant neoplasm of upper-outer quadrant of left breast in female, estrogen receptor negative shelter current use of antipsychotic medication documented in this encounter Care Teams Contract Technician Relationship Specialty Start Date End Date Gaudencio Scales DO [address] [place] [address] PCP - General Family Medicine 11/28/23 documented as of this encounter
--- OUTSIDE RECORDS SUMMARY | 2024-07-27 12:47 | XMS_ITS | Encounter Summary ---
Author Organization [facility] Address [facility] [place] [address] Care Team Providers Care Solution Developer Name Role Phone Gaudencio Scales Antoine VERGARA Primary Care Provider [phone] Encounter Details Date Type Department Care Team (Latest Contact Info) Description 03/27/2024 Travel Social History Tobacco Use Types Packs/Day [...] time in the past 12 m [facility], were you homeless or living in a retirement (including now)? No 02/28/2024 IPV Inpatient Questions [...] 8:40 AM EST Hospital [place] [phone] Jr Fulton MD [facility] [address] [place] [address] 07/30/2024 8:45 AM EST [place] [phone] Jr Fulton MD [facility] [place] [address] 07/30/2024 9:20 AM EST Hospital Encounter Mammography at [address]1000 Jr Fulton MD [facility] [place] [address] 07/30/2024 10:51 AM EST Hospital Encounter Outpatient [facility] [place] [phone] Jr Fulotn MD [facility] [place] [address] 07/30/2024 10:51 AM EST Anesthesia Event [facility] [address]1000 Megan [place] [address] 07/30/2024 10:51 AM EST - 07/30/2024 1:11 PM EST Surgery [facility] [address]1000 Jr Fulton MD [facility] [place] [address] MASTECTOMY PARTIAL (WRVU 10.13) 08/22/2024 2:00 PM EST Office Visit General Surgery at [address]1000 Cindy Pierce APRN [facility] [place] [address] 08/22/2024 3:00 PM EST Office Visit Hematology [place] [address] Soo Lyn MD [facility] [place] [address] 08/27/2024 9:30 AM EST Scheduled View Only Radiation Oncology at [address] [phone] [address] [place] 08/27/2024 10:00 AM EST Office Visit Radiation Oncology at [address] [phone] Paradise Prado MD [facility] [place] [address] 2024 1:00 PM EDT Office Visit Cardiology at [address] [phone] Ham Montenegro MD [facility] [place] [address] Scheduled Procedures Name Priority Associated Diagnoses Date/Ti [...] on filedocumented in this encounter Care Teams Solution Developer Relationship Specialty Start Date End Date Gaudencio Scales DO [address] [place] [address] PCP - General Family Medicine 11/28/23 documented as of this encounter
--- OUTSIDE RECORDS SUMMARY | 2024-07-27 12:47 | XMS_ITS | Encounter Summary ---
Author Organization [facility] Address [facility] [place] [address] Care Team Providers Care Ream Cutter Name Role Phone Gaudencio Scales Primary Care Provider Encounter Details Date Type Department Care Team (Late st Contact Info) Description 04/04/2024 Orders Only [place]ematology [place] [address] Soo Lyn MD [facility] [place] [place] [address] Social History Tobacco Use Types Packs/Day Years [...] from your doctor or pharmacy? Rarely 02/28/2024 [facility] Utilities Answer Date Recorded In the past 12 months has e [employer], gas, oil, or water [employer] threatened to shut off services in your [...] living in a custodial (including now)? No 02/28/2024 IPV Inpatient Questions [...] 8:40 AM EST Hospital [place] [address] Jr Fulton MD [facility] [address] [place] [address] 07/30/2024 8:45 AM EST Appointment Mammography at [place] [address] Jr Fulton MD [facility] [place] [address] 07/30/2024 9:20 AM EST Hospital Encounter Mammography at [place] [address] Jr Fulton MD [facility] [place] [address] 07/30/2024 10:51 AM EST Hospital Encounter Outpatient Surgery Center [address] Jr Fulton MD [facility] [place] [address] 07/30/2024 10:51 AM EST Anesthesia Event Outpatient Surgery Center [place] [address] Megan Orona [place] [address] 07/30/2024 10:51 AM EST - 07/30/2024 1:11 PM EST Surgery Outpatient Surgery Center [place] [address] Jr Fulton MD [facility] [place] [address] MASTECTOMY PARTIAL (WRVU 10.13) 08/22/2024 2:00 PM EST Office Visit General Surgery at [address] Cindy Pierce APRN [facility] [place] [address] 08/22/2024 3:00 PM EST Office Visit Hematology [place] [address] Soo Lyn MD [facility] [place] [place] [address] 08/27/2024 9:30 AM EST Scheduled View Only Radiation Oncology at [address] [phone] [address] [place] 08/27/2024 10:00 AM EST Office Visit Radiation Oncology at [address] [phone] Paradise Prado MD [facility] [place] [address] 2024 1:00 PM EDT Office Visit Cardiology at [address] [place] [phone] Ham Montenegro MD [facility] [place] [address] Scheduled Procedures Name Priority Associated Diagnoses Date/Ti [...] on filedocumented in this encounter Care Teams Ream Cutter Relationship Specialty Start Date End Date Gaudencio Scales DO [address] [place] [address] PCP - General Family Medicine 11/28/23 documented as of this encounter
--- OUTSIDE RECORDS SUMMARY | 2024-07-27 12:47 | XMS_ITS | Encounter Summary ---
Author Organization [facility] Address [facility] [place] [address] Care Team Providers Care Electronic Scale Subassembler Name Role Phone Gaudencio Scales Primary Care Provider [phone] Reason for Visit * Reason Comments Chemotherapy [...] FOSAPREPITANT, 1MG, INJECTION (EMEND) Soo Lyn MD [facility] [place] [address] [facility] [address] [place] [address] Referral ID Status Reason Start Date Expiration Date V isits Requested Visits Authorized [id number] Pending Review 03/14/2024 03/14/2025 99 101 Encounter Details Date Type Department Care Team (Latest Contact Info) Description 03/28/2024 6:58 AM EDT - 03/28/2024 11:59 PM EDT Hospital Encounter [place]ology [place] [address] Malignant neoplasm of upper-outer quadrant [...] any time in the past 12 m [facility], were you homeless or [...] capsule 20M Capsule(s), PO, Once daily 01/12/2006 citalopram (CeleXA) 10 mg tablet Take 1 tablet by mouth daily. 60 tablet 3 03/28/2024 04/10/2024 dexAMETHasone (Decadron) 4 mg tablet Take 1 [...] 10/28/2023 04/11/2024 documented as of this encounter Progress Notes * Emily Abdi RN - 03/28/2024 10:34 AM EDT Patient Name: Oksana Betancourt Patient Age: 58 y.o. Birthdate: 1965 Admit date: 03/28/2024 Attending Physician: Padmini att. providers found TIME TREATMENT STARTED: 1033 TIME TREATMENT ENDED: 1445 Oksana Betancourt, 58 y.o. female with diagnosis of breast cancer is here for chemotherapy infusion of Pembro/Docetaxel/Carbo. CYCLE: 1 DAY: 1 S: Pt. Is cycle day 1, she is tearful and very anxious, ativan offered and accepted. I sat down andreviewed the process and expectation for today. Onpro reviewed and booklet given to patient, pt verbalized understanding of removal. O: Chemotherapy orders independently verified for correct drug name, route and dosage per patient'sheight, weight and BSA by Emily Abdi RN and onsite pharmacist REACTIONS (DESCRIPTION, TIME, INTERVENTION AND EFFECTIVENESS) none A: Pt. Tolerated treatment well. Oksana Betancourt confirms that all questions and issues have been addressed. P: Return to clinic as advised documented in this encounter Plan of Treatment Upcoming Encounters Date Type Department Care Team (Latest Contact Info) Description 07/30/2024 8:40 AM EST Hospital Encounter Mammography at [place] [phone] Jr Fultno MD [facility] [place] [address] 07/30/2024 8:45 AM EST Appointment Mammography at [place] [address] Jr Fulton MD [facility] [address] [place] [address] 07/30/2024 9:20 AM EST Hospital Encounter Mammography at [place] [phone] Jr Fulton MD [facility] [address] [place] [address] 07/30/2024 10:51 AM EST Hospital Encounter Outpatient Surgery Center [place] [phone] Jr Fulton MD [facility] [place] [address] 07/30/2024 10:51 AM EST Anesthesia Event Outpatient Surgery Center [place] [address] Megan [place]ron[place] [address] 07/30/2024 10:51 AM EST - 07/30/2024 1:11 PM EST Surgery [place] [address] Jr Fulton MD [facility] [place] [address] MASTECTOMY PARTIAL (WRVU 10.13) 08/22/2024 2:00 PM EST Office Visit General Surgery at [address] Cindy Pierce APRN [facility] [place] [place] [address] 08/22/2024 3:00 PM EST Office Visit Hematology and Oncology at [place] [address] Soo Lyn MD [facility] [place] [place] [address] 08/27/2024 9:30 AM EST Scheduled View Only Radiation Oncology at [address] [phone] St Josr [place] 08/27/2024 10:00 AM EST Office Visit Radiation Oncology at [address] [phone] Paradise Prado MD [facility] [address] 2024 1:00 PM EDT Office Visit Cardiology at [address] [place] [phone] Ham Montenegro MD [facility] CARDIOLOGY [place] [phone] Scheduled Procedures Name Priority Associated Diagnoses Date/Ti [...] AM EST documented as of this encounter Results * T4, free (03/28/2024 7:24 AM EDT) Free T4 1.17 0.93 - 1.70 ng/dL [facility] Comment: Reference Interval (ng/dL): Females: ??First Trimester: 0.97-1.68 ??Second Trimester: 0.77-1.51 ??Third Trimester: 0.77-1.49 Blood VENOUS BLOOD SPECIMEN / Unknown 03/28/2024 7:24 AM EDT 03/28/2024 7:51 AM EDT Narrative Resulting Agency Comment Spec In Lab Soo Lyn MD CHEMISTRY ORDERABLES [facility] [place] [address] * TSH (03/28/2024 7:24 AM EDT) Pathologist [facility] Thyroid Stimulating Hormone 3.34 0.27 - 4.20 mcIU/mL [facility] Comment: Reference Interval (mcIU/mL): Females: ??First Trimester: 0.23-3.88 ??Second Trimester: 0.22-3.90 ??Third Trimester: 0.44-4.66 Blood VENOUS BLOOD SPECIMEN / Unknown 03/28/2024 7:24 AM EDT 03/28/2024 7:51 AM EDT Narrative Resulting Agency Comment Spec In Lab Soo Lyn MD CHEMISTRY ORDERABLES [facility] [place] [address] * (ABNORMAL) Comprehensive metabolic panel (non-fasting) (03/28/2024 7:24 AM EDT) Glucose 118 65 - 199 mg/dL [facility] Comment:Diabetes: >=200 mg/d L plus symptoms Blood Urea Nitrogen 31(H) 8 - 18 mg/dL [facility] Creatinine 2.08(H) 0.70 - 1.20 mg/dL [facility] Sodium 139 135 - 145 mmol/L [facility] Potassium 4.5 3.5 - 5.0 mmol/L [facility] Comment: Please note: ??Patients with WBC >100,000 may have falsely elevated Potassium levels. ??For accurate Potassium quantification in these patients send serum separator tube (gold top) for subsequent determinations. ??Contact the Clinical Chemistry Laboratory if there are any questions. Chloride 104 98 - 107 mmol/L [facility] Carbon Dioxide 21(L) 22 - 31 mmol/L [facility] Anion Gap 14 5 - 15 mmol/L [facility] Calcium 9.5 8.5 - 10.5 mg/dL [facility] Protein, Total 7.2 6.1 - 8.0 g/dL [facility] Albumin 4.1 3.2 - 5.2 g/dL [facility] Aspartate Aminotransferase 16 0 - 30 unit/L [facility] Alanine Aminotransferase 13 0 - 30 unit/L [facility] Alkaline Phosphatase 144(H) 35 - 105 unit/L [facility] Bilirubin, Total 0.5 0.2 - 1.3 mg/dL [facility] Est Glomerular Filtration Rate 27(L) >=60 mL/min/1. 73 m?? [facility] Comment: This patient's estimated [...] In Lab Soo Lyn MD CHEMISTRY ORDERABLES [facility] [place] [address] documented in this encounter Visit Diagnoses Diagnosis Malignant neoplasm of upper-outer quadrant of left breast in female, estrogen receptor negative documented in this encounter Administered Medications Inactive Administered Medications - up to 3 most recent administrations Medication Order MAR Action Action Date Dose Rate Site aprepitant (Cinvanti) (7.2 mg/mL) injection emulsion 130 mg 130 mg, Intravenous, Administer over 2 Minutes, ONCE, 1 dose, On Tue03/28/24 at 1045, Alternative administration of IV push over 2 minutes is a recommendation from the clerical and administrative workers. Administer prior to chemotherapy., Routine Given 03/28/2024 10:50 AM EDT 130 mg CARBOplatin (Paraplatin) 329 mg in dextrose 5% 282.9 mL infusion 329 mg (rounded from 329.4 mg, Target AUC = 4.5), Intravenous, ONCE, 1 dose, On Tue03/28/24 at 1145, Administer over 30 Minutes, Warning Vesicant/Irritant Medication New Bag 03/28/2024 1:57 PM EDT 329 mg 565.8 mL/hr dexAMETHasone (PF) (Decadron) (10 mg/mL) injection 10 mg 10 mg, Intravenous, ONCE, 1 dose, On Tue03/28/24 at 1045, Administer 60 minutes prior to DOCEtaxeL Given 03/28/2024 10:51 AM EDT 10 mg diphenhydrAMINE (Benadryl) capsule 50 mg 50 mg, Oral, ONCE, 1 dose, On Tue03/28/24 at 1045, Administer 60 minutes prior to DOCEtaxeL, Routine Given 03/28/2024 10:51 AM EDT 50 mg DOCEtaxeL (Taxotere) 160 mg in sodium chloride 0.9% Non-PVC 258 mL infusion 160 mg (rounded from 165.75 mg = 75 mg/m2/dose ? 2.21 m2 Treatment Plan BSA from Recorded weight), Intravenous, ONCE, 1 dose, On Tue03/28/24 at 1145, Administer over 60 Minutes, Warning Vesicant/Irritant Medication 3 Step Titration for Infusions 1 and 2. Regular (Not Titrated) Rate to start at infusion 3 if no HSR. Step 1: Start at a rate of 2.6 mL/hr for 15 minutes. Step 2: Increase rate to 25.8 mL/hr for 15 minutes. Step 3: Increase to regular infusion rate 258 mL/hr for remainder of infusion., Should this infusion follow 3 Step Titration (Initial Dosing) or Standard Infusion? Initial: 3 Step Titration New Bag 03/28/2024 12:07 PM EDT 160 mg 258 mL/hr famotidine (Pepcid) (10 mg/mL) injection 20 mg 20 mg, Intravenous, ONCE, 1 dose, On Tue03/28/24 at 1045, Administer 60 minutes prior to DOCEtaxeL Given 03/28/2024 10:51 AM EDT 20 mg LORazepam (Ativan) tablet 0.5 mg 0.5 mg, Oral, EVERY 4 HOURS PRN, Starting on Tue03/28/24 at 1035, Until Chelsea 03/29/24 at 0434, Anxiety, Nausea, Vomiting, If multiple antiemetics are ordered, use in the following sequence: Ondansetron>Prochlorperaz ine or Promethazine>LORazepam>Me toclopramide, Routine Given 03/28/2024 10:51 AM EDT 0.5 mg palonosetron (Aloxi) (0.05 mg/mL) injection 0.25 mg 0.25 mg, Intravenous, ONCE, 1 dose, On Tue03/28/24 at 1045, Administer over 30 seconds., Routine Given 03/28/2024 10:51 AM EDT 0.25 mg pegfilgrastim (Neulasta Onpro) (6 mg/0.6 mL) injection kit 6 mg 6 mg, Subcutaneous, ONCE, 1 dose, On Tue03/28/24 at 1045, Allow the prefilled syringe co-packaged with the on-body injector to reach room temperature at least 30 minutes prior to administration., Routine, This agent is restricted to outpatient use. Is this drug being given as an outpatient? Yes Given 03/28/2024 2:41 PM EDT 6 mg Right Arm pembrolizumab (Keytruda) 200 mg in sodium chloride 0.9% 108 mL infusion 200 mg, Intravenous, ONCE, 1 dose, On Tue03/28/24 at 1145, Administer over 30 Minutes, Flush Line with NS after each dose, This agent is restricted to outpatient use. Is this drug being given as an outpatient? Yes New Bag 03/28/2024 11:35 AM EDT 200 mg 216 mL/hr sodium chloride 0.9% infusion 500 mL/hr, Intravenous, CONTINUOUS, Starting on Tue03/28/24 at 1045, Until Tue03/28/24 at 1244 New Bag 03/28/2024 10:51 AM EDT 500 mL/hr 500 mL/hr documented in this encounter Care Teams Electronic Scale Subassembler Relationship Specialty Start Date End Date Gaudencio Scales DO [address] [place] [address] PCP - General Family Medicine 11/28/23 documented as of this encounter
--- OUTSIDE RECORDS SUMMARY | 2024-07-27 12:47 | XMS_ITS | Encounter Summary ---
Author Organization [facility] Address [facility] [place] [address] Care Team Providers Care Movement Therapist Name Role Phone RachelmauryGaudencio DO Primary Care Provider [phone] Encounter Details Date Type Department Care Team (Latest Contact Info) Description 04/17/2024 6:52 AM EDT - 04/17/2024 11:59 PM EDT Hospital Encounter Hematology [place] [phone] Malignant neoplasm of upper-outer quadrant of left [...] from your doctor or pharmacy? Rarely 02/28/2024 [facility] Utilities Answer Date Recorded In the past 12 months has e [employer], gas, oil, or water [employer] threatened to shut off services in your [...] time in the past 12 m [facility], were you homeless or living in a long-term (including now)? No 02/28/2024 [facility] IPV Inpatient [...] 8:40 AM EST Hospital [place] [address] Jr Fulton MD [facility] [address] [place] [address] 07/30/2024 8:45 AM EST Appointment [place] [address] Jr Fulton MD [facility] [place] [address] 07/30/2024 9:20 AM EST Hospital Encounter Mammography at [place] [phone] Jr Fulton MD [facility] [address] [place] [address] 07/30/2024 10:51 AM EST Hospital Encounter [place] [phone] Jr Fulton MD [facility] [place] [address] 07/30/2024 10:51 AM EST Anesthesia Event Outpatient Surgery Center [place] [phone] Megan [place] [address] 07/30/2024 10:51 AM EST - 07/30/2024 1:11 PM EST Surgery Outpatient Surgery Center [place] [phone] Jr Fulton MD [facility] [place] [address] MASTECTOMY PARTIAL (WRVU 10.13) 08/22/2024 2:00 PM EST Office Visit General Surgery at [address] Cindy Pierce APRN [facility] [place] [address] 08/22/2024 3:00 PM EST Office Visit Hematology and Oncology at [place] [phone] Soo Lyn MD [facility] [place] [address] 08/27/2024 9:30 AM EST Scheduled View Only Radiation Oncology at [address] [phone] [facility] Josr [place] 08/27/2024 10:00 AM EST Office Visit Radiation Oncology at [address] [phone] Paradise Prado MD [facility] [place] [address] 2024 1:00 PM EDT Office Visit Cardiology at [address] [place] [phone] Ham Montenegro MD [facility] [place] [address] Scheduled Procedures Name Priority Associated Diagnoses Date/Ti [...] Procedure Name Priority Date/Time Associated Diagnosis Comments HEMOGRAM STAT 04/17/2024 7:29 AM EDT Malignant neoplasm of upper-outer quadrant of left breast in female, estrogen receptor negative DIFFERENTIAL, AUTOMATED STAT 04/17/2024 7:29 AM EDT Malignant neoplasm of upper-outer quadrant of left breast in female, estrogen receptor negative CBC (WITH DIFF) STAT 04/17/2024 7:29 AM EDT Malignant neoplasm of upper-outer quadrant of left breast in female, estrogen receptor negative TSH STAT 04/17/2024 7:29 AM EDT Malignant neoplasm of upper-outer quadrant of left breast in female, estrogen receptor negative T4, FREE STAT 04/17/2024 7:29 AM EDT Malignant neoplasm of upper-outer quadrant of left breast in female, estrogen receptor negative COMPREHENSIVE METABOLIC PANEL STAT 04/17/2024 7:29 AM EDT Malignant neoplasm of upper-outer quadrant of left breast in female, estrogen receptor negative documented in this encounter Results * (ABNORMAL) Differential, Automated (04/17/2024 7:29 AM EDT) Neutrophil % 66.5 % [facility] Neutrophil Absolute 8.64(H) 1.70 - 6.10 x10(3)/[facility] Lymph % 22.5 % [facility] Lymphocytes Abs 2.9 0.9 - 3.2 x10(3)/[facility] Monocyte % 8.5 % [facility] Monocyte Abs 1.1(H) 0.3 - 0.9 x10(3)/[facility] Eos % 1.4 % [facility] Eosinophils Abs 0.2 0.0 - 0.4 x10(3)/[facility] Basophil % 0.9 % [facility] Baso Absolute 0.1 0.0 - 0.1 x10(3)/[facility] Immature Gran % 0.20 % [facility] Comment: Immature granulocytes(IG's)percentage and absolute count will include metamyelocytes, myelocytes, and promyelocytes. Blood smears from CBCs yielding IG's will be scanned manually for concordance. If this scan disagrees with the automated IG or if promyelocytes are noted, a manual differential will be performed. Immature Gran Absolute 0.03 0.00 - 0.04 x10(3)/[facility] Blood 04/17/2024 7:29 AM EDT 04/17/2024 7:41 AM EDT Narrative Resulting Agency Comment Spec In Lab Soo Lyn MD HEMATOLOGY ORDERABLE S [facility] [place] [address] * (ABNORMAL) Hemogram (04/17/2024 7:29 AM EDT) White Blood Cell 13.0(H) 4.0 - 9.5 x10(3)/[facility] Red Blood Cell 3.53(L) 4.00 - 5.21 x10(6)/mc L [facility] Hemoglobin 10.7(L) 11.7 - 15.5 g/dL [facility] Hematocrit 33.1(L) 35.7 - 45.8 % [facility] Mean Cell Volume 93.8 82.6 - 94.4 fL [facility] Mean Cell Hemoglobin 30.3 27.1 - 32.0 pg [facility] Mean Cell Hemoglobin Concentration 32.3 31.7 - 35.0 g/dL [facility] Platelet 511(H) 145 - 357 x10(3)/mc L [facility] RDW Standard Deviation 55.1(H) 37.0 - 46.0 fL [facility] RDW coefficient of variation 16.4(H) 11.5 - 14.1 % [facility] Mean Platelet Volume 11.0 7.6 - 12.9 fL [facility] NRBC% auto 0.0 % [facility] NRBC Absolute 0.000 0.000 - 0.000 x10(3)/mc L [facility] Blood 04/17/2024 7:29 AM EDT 04/17/2024 7:41 AM EDT Narrative Resulting Agency Comment Spec In Lab Soo Lyn MD HEMATOLOGY ORDERABLE S [facility] [place] [address] * T4, free (04/17/2024 7:29 AM EDT) Free T4 1.24 0.93 - 1.70 ng/dL [facility] Comment: Reference Interval (ng/dL): Females: ??First Trimester: 0.97-1.68 ??Second Trimester: 0.77-1.51 ??Third Trimester: 0.77-1.49 Blood VENOUS BLOOD SPECIMEN / Unknown 04/17/2024 7:29 AM EDT 04/17/2024 7:41 AM EDT Narrative Resulting Agency Comment Spec In Lab Soo Lyn MD CHEMISTRY ORDERABLES Performing Organization Address [facility] Co de Phone Number [facility] [place] [address] * TSH (04/17/2024 7:29 AM EDT) Thyroid Stimulating Hormone 3.58 0.27 - 4.20 mcIU/mL [facility] Comment: Reference Interval (mcIU/mL): Females: ??First Trimester: 0.23-3.88 ??Second Trimester: 0.22-3.90 ??Third Trimester: 0.44-4.66 Blood VENOUS BLOOD SPECIMEN / Unknown 04/17/2024 7:29 AM EDT 04/17/2024 7:41 AM EDT Narrative Resulting Agency Comment Spec In Lab Soo Lyn MD CHEMISTRY ORDERABLES Performing Organization Address [facility] Co de Phone Number [facility] [place] [address] * (ABNORMAL) Comprehensive metabolic panel (non-fasting) (04/17/2024 7:29 AM EDT) Glucose 109 65 - 199 mg/dL [facility] Comment:Diabetes: >=200 mg/d L plus symptoms Blood Urea Nitrogen 21(H) 8 - 18 mg/dL [facility] Creatinine 1.36(H) 0.70 - 1.20 mg/dL [facility] Sodium 142 135 - 145 mmol/L [facility] Potassium 4.5 3.5 - 5.0 mmol/L [facility] Comment: Please note: ??Patients with WBC >100,000 may have falsely elevated Potassium levels. ??For accurate Potassium quantification in these patients send serum separator tube (gold top) for subsequent determinations. ??Contact the Clinical Chemistry Laboratory if there are any questions. Chloride 106 98 - 107 mmol/L [facility] Carbon Dioxide 25 22 - 31 mmol/L [facility] Anion Gap 11 5 - 15 mmol/L [facility] Calcium 9.3 8.5 - 10.5 mg/dL [facility] Protein, Total 6.3 6.1 - 8.0 g/dL [facility] Albumin 3.8 3.2 - 5.2 g/dL [facility] Aspartate Aminotransferase 18 0 - 30 unit/L [facility] Alanine Aminotransferase 16 0 - 30 unit/L [facility] Alkaline Phosphatase 145(H) 35 - 105 unit/L [facility] Bilirubin, Total 0.2 0.2 - 1.3 mg/dL [facility] Est Glomerular Filtration Rate 45(L) >=60 mL/min/1. 73 m?? [facility] Comment: This patient's estimated GFR [...] eGFR. Blood VENOUS BLOOD SPECIMEN / Unknown 04/17/2024 7:29 AM EDT 04/17/2024 7:41 AM EDT Narrative Resulting Agency Comment Spec In Lab Soo Lyn MD CHEMISTRY ORDERABLES [facility] [place] [address] documented in this encounter Visit Diagnoses Diagnosis Malignant neoplasm of upper-outer quadrant of left breast in female, estrogen receptor negative documented in this encounter Care Teams Movement Therapist Relationship Specialty Start Date End Date Gaudencoi Scales DO [address] [place] [address] PCP - General Family Medicine 11/28/23 documented as of this encounter
--- OUTSIDE RECORDS SUMMARY | 2024-07-27 12:47 | XMS_ITS | Encounter Summary ---
Author Organization [facility] Address [facility] [address] Care Team Providers Care Parasitology Teacher Name Role Phone Gaudencio Scales Primary Care Provider [phone] Reason for Visit * Reason Comments Medication Refill Encounter Details Date Type Department Care Team (Late st Contact Info) Description 04/06/2024 Refill Hematology [place] [phone] Tatiana Rosario APRN [facility] [place] [address] Social History Tobacco Use Types Packs/Day Years [...] from your doctor or pharmacy? Rarely 02/28/2024 [facility] Utilities Answer Date Recorded In [...] any time in the past 12 m [facility], were you homeless or living in a senior living (including now)? No 02/28/2024 IPV Inpatient Questions [...] Telephone Encounter - Fátima Soto CMA - 04/10/2024 9:32 PM EDT Prescription Renewal Request Name: Oksana Betancourt : 1965 Prescription(s) Requested: Requested Prescriptions Pending Prescriptions Disp Refills QUEtiapine (Seroquel) 25 mg tablet [Pharmacy Med Name: QUETIAPINE FUMARATE 25 MG TAB] 30 tablet 0 Sig: TAKE ONE-HALF TABLET BY MOUTH EVERY DAY NEEDED MAY TAKE UP TO ONE WHOLE TABLET According to OVN from today 04/10: Increase in Seroquel (now at 150 mg) Provider sent in new script following this patients appointment. Status of request: Refused No Known Allergies Fátima Soto CMA 04/10/24 9:32 PM * Telephone Encounter - Ngoc Perez CMA - 04/06/2024 3:16 PM EDT Prescription Renewal Request Name: Oksana Betancourt : 1965 Prescription(s) Requested: Requested Prescriptions Pending Prescriptions Disp Refills QUEtiapine (Seroquel) 25 mg tablet [Pharmacy Med Name: QUETIAPINE FUMARATE 25 MG TAB] 30 tablet 0 Sig: TAKE ONE-HALF TABLET BY MOUTH EVERY DAY NEEDED MAY TAKE UP TO ONE WHOLE TABLET Date of Encounter last in This Dept (If need an appointment send to secretaries to schedule): 03/13/2024 with Tatiana Rosario APRN Next Encounter in This Dept: 04/10/2024 with Tatiana Rosario APRN Date of Last Refill (for each medication): QUEtiapine (SEROquel) 25 mg tablet Take 0.5 tablets by mouth daily as needed. May take up to one whole tab Dispense: 30 tablet, Refills: 0 ordered 03/13/2024 Status of request: Pended No Known Allergies Ngoc Perez CMA 04/06/24 3:16 PM documented in this encounter Plan of Treatment Upcoming Encounters Date Type Department Care Team (Latest Contact Info) Description 07/30/2024 8:40 AM EST Hospital En[place] [address] Jr Fulton MD [facility] [address] 07/30/2024 8:45 AM EST Appointment Mammography at [place] [address] Jr Fulton MD [facility] [address] [place] [address] 07/30/2024 9:20 AM EST Hospital Encounter Mammography at [place] [address] Jr Fulton MD [facility] [place] [address] 07/30/2024 10:51 AM EST Hospital Encounter Outpatient Surgery [facility] [place] [address] Jr Fulton MD [facility] [place] [address] 07/30/2024 10:51 AM EST Anesthesia Event [facility] [place] [address] Megan Orona APR[place] [address] 07/30/2024 10:51 AM EST - 07/30/2024 1:11 PM EST Surgery [facility] [place] [address] Jr Fulton MD [facility] [place] [address] MASTECTOMY PARTIAL (WRVU 10.13) 08/22/2024 2:00 PM EST Office Visit General Surgery at [place] [address] Cindy Pierce APRN [facility] [place] [address] 08/22/2024 3:00 PM EST Office Visit Hematology [place] [address] Soo Lyn MD [facility] [place] [address] 08/27/2024 9:30 AM EST Scheduled View Only Radiation Oncology at [address] [address] [address] [place] 08/27/2024 10:00 AM EST Office Visit Radiation Oncology at [address] [address] Paradise Prado MD [facility] [place] [address] 2024 1:00 PM EDT Office Visit Cardiology at [address] [place] [phone] Ham Montenegro MD [facility] [place] [address] Scheduled Procedures Name Priority Associated Diagnoses Date/Ti [...] on filedocumented in this encounter Care Teams Parasitology Teacher Relationship Specialty Start Date End Date Gaudencio Scales DO [address] [place] [address] PCP - General Family Medicine 11/28/23 documented as of this encounter
--- OUTSIDE RECORDS SUMMARY | 2024-07-27 12:47 | XMS_ITS | Encounter Summary ---
Author Organization [facility] Address [facility] [place] [address] Care Team Providers Care Moveman Name Role Phone Gaudencio Scales Antoine VERGARA Primary Care Provider [phone] Encounter Details Date Type Department Care Team (Latest Contact Info) Description 03/26/2024 9:59 AM EDT - 03/26/2024 10:00 AM EDT Hospital Encounter [place] [phone] Camila Rubalcava MD [facility] [place] [address] Abnormal finding on breast imaging Discharge Disposition: Home Social History Tobacco Use [...] from your doctor or pharmacy? Rarely 02/28/2024 [facility] Utilities Answer Date Recorded In the past 12 months has [employer] electric, gas, oil, or water company threatened [...] as of this encounter Progress Notes * Camila Rubalcava MD - 03/25/2024 7:15 AM EDT Pre-procedure note for needle breast biopsies performed in radiology. Procedure date: Tomorrow Procedure type: left breast ultrasound guided biopsy Allergies: Patient has no known allergies. Medications: Current Outpatient Medications: dexAMETHasone (Decadron) 4 mg [...] Capsule(s), PO, Once daily, Disp: , Rfl: Anticoagulation status: none stopped on: N/A Imaging reviewed and procedural plan approved by Dr. CAMILA RUBALCAVA MD documented in this encounter Plan of Treatment Upcoming Encounters Date Type Department Care Team (Latest Contact Info) Description 07/30/2024 8:40 AM EST Hospital Encounter [place] [address] Jr Fulton MD [facility] [place] [address] 07/30/2024 8:45 AM EST Appointment Mammography at [place] [address] Jr Fulton MD [facility] [place] [address] 07/30/2024 9:20 AM EST Hospital Encounter Mammography at [address] Jr Fulton MD [facility] [place] [address] 07/30/2024 10:51 AM EST Hospital Encounter Outpatient [place] [address] Jr Fulton MD [facility] [address] [place] [address] 07/30/2024 10:51 AM EST Anesthesia Event Outpatient Surgery [facility] [place] [address] Megan Orona [place] [address] 07/30/2024 10:51 AM EST - 07/30/2024 1:11 PM EST Surgery Outpatient Surgery Center [address] Jr Fulton MD [facility] [place] [address] MASTECTOMY PARTIAL (WRVU 10.13) 08/22/2024 2:00 PM EST Office Visit General Surgery at [address] Cindy Pierce APRN [facility] [place] [address] 08/22/2024 3:00 PM EST Office Visit Hematology [place] [address] Soo Lyn MD [facility] [place] [address] 08/27/2024 9:30 AM EST Scheduled View Only Radiation Oncology at [address] [phone] [address] [place] 08/27/2024 10:00 AM EST Office Visit Radiation Oncology at [address] [address] Paradise Prado MD [facility] [place] [address] 2024 1:00 PM EDT Office Visit Cardiology at [address] [place] [phone] Ham Montenegro MD [facility] [place] [address] Scheduled Procedures Name Priority Associated Diagnoses Date/Ti [...] Procedure Name Priority Date/Time Associated Diagnosis Comments MAMMO US BIOPSY LEFT Routine 03/26/2024 11:13 AM EDT Abnormal finding on breast imaging SPECIMEN TO PATHOLOGY Routine 03/26/2024 11:13 AM EDT SURGICAL PATHOLOGY REPORT Routine 03/26/2024 11:08 AM EDT documented in this encounter Results * Mammo Us Biopsy Left (03/26/2024 11:13 AM EDT) WORKSTATION ID [id number] RAD Anatomical Region Laterality Modality Breast Left Mammography Impressions 03/27/2024 4:57 PM EDT Concordant result RECOMMENDATION: Continue with oncological management. She will commence chemotherapy this week, and her oncologist can discuss the results with her. REVIEW PATH CONFERENCE?: No Thank you for letting us participate in the care of this patient. ??If you are a health care provider and have any questions regarding this report, please contact the number below. ??For patients who have questions please contact the health palliative care physician that requested your imaging first. ? Electronically signed by: Camila Rubalcava MD, [facility] ([phone]), at 03/27/2024 4:57 PM Narrative 03/27/2024 4:57 PM EDT ULTRASOUND GUIDED BIOPSY OF THE LEFT BREAST CLINICAL HISTORY: Probable metastatic intramammary node LEFT BREASTLesion 2 0.8 cm Mass ??2 Radian 13 cm from the nipple PROCEDURAL DETAILS: Informed consent was obtained. Sterile technique was deployed. Approximately 10 cc used for local anesthesia. A small skin incision was made and a biopsy was performed under ultrasound guidance. 3 core biopsy specimens were obtained using a Achieve 14g device. Biopsy specimens were not radiographed. N/A Satisfactory sampling was obtained. A [employer] Donna 14G marker clip was placed. Cranio-caudal and lateral digital mammography performed to determine biopsy marker placement, which was shown to be 0 cm from the biopsy site in N/A direction. COMPLICATIONS: None. PROCEDURAL ATTESTATION: Resident: I performed the procedure without a resident. IMAGING DIFFERENTIAL DIAGNOSIS: Metastatic node, reactive node PATHOLOGIC DIAGNOSIS: Small metastatic focus within node Camila Rubalcava MD IMG MAMMO ORDERABLES * Specimen to Pathology (03/26/2024 11:13 AM EDT) AP Specimen 03/26/2024 11:1 3 AM EDT 03/26/2024 11:13 AM EDT Narrative [facility] - 03/26/2024 11:13 AM EDT Specimen requisition ordered. ??Separate Pathology report to follow Camila Rubalcava MD PATHOLOGY/CYTOLOGY O RDERABLES [facility] [place] [address] * Surgical Pathology Report (03/26/2024 11:08 AM EDT) Final Diagnosis [id number] ? Location: 3L The signing pathologist has (i) examined the relevant preparation(s) for the specimen(s) and (ii) rendered or confirmed the diagnosis(es). . ?Surgical Pathology DIAGNOSIS Left breast, lesion 2, core needle biopsy: - Lymph node with focus of metastatic carcinoma (see Discussion) Electronically signed by: ?Andrew Wilson MD Verified: ??03/27/2024 9:55 ?? Pathologist Performed at: ??-[facility] Dept. of Pathology, [place] [address] Forms Builder: Mario Alex MD, FCAP, ??CLIA Certificate: [id number] DISCUSSION A single <1 mm metastatic deposit is identified at the edge of one core; radiologic correlation is suggested. SPECIMEN(S) SUBMITTED A - Left breast US bx 14 g lesion 2 (3) CARBON COPY: Jose Maria, Veda Blackwood MD CLINICAL INFORMATION Mass SPECIMEN PROCESSING A - Labeled/Fixativ e: Left breast US BX 14-gauge lesion, formalin. Quantity/Size: Three, ranging from 0.8 x 0.2 cm to 1.5 x 0.2 cm Tissue Description: Yellow fibrofatty needle core biopsies. Sections/Proces sing: Entirely submitted in 1 cassette labeled A1. Ischemic time: 4 minutes Total fixation time in formalin: 7 hours 48 minutes The ASCO/CAP guideline related to formalin fixation time has been met (6-72 hours). The ASCO/CAP guideline related to cold ischemic time has been met (<1 hour). ??sdy 03/27/2024 9:55 AM EDT [facility] BREAST STRUCTURE / Unknown 03/26/2024 11:08 AM EDT 03/26/2024 11:08 AM EDT Camila Rubalcava MD PATHOLOGY/CYTOLOGY O RDERABLES [facility] [place] [address] documented in this encounter Visit Diagnoses Diagnosis Abnormal finding on breast imaging Other (abnormal) findings on radiological examination of breast documented in this encounter Administered Medications Inactive Administered Medications - up to 3 most recent administrations Medication Order MAR Action Action Date Dose Rate Site lidocaine (Xylocaine) 1% (10 mg/mL) injection 0-200 mg 0-200 mg (0-20 mL), Subcutaneous, ONCE, 1 dose, On Tue03/26/24 at 1030, Radiology Protocol Medication, Routine Given 03/26/2024 11:06 AM EDT 10 mg documented in this encounter Care Teams Moveman Relationship Specialty Start Date End Date Gaudencio Scales DO [address] [place] [address] PCP - General Family Medicine 11/28/23 documented as of this encounter
--- OUTSIDE RECORDS SUMMARY | 2024-07-27 12:47 | XMS_ITS | Encounter Summary ---
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 Rarely 02/28/2024 [facility] Utilities Answer Date Recorded In the past 12 months has [employer], gas, oil, or water [employer] threatened to shut off services in your [...] living in a detention (including now)? No 02/28/2024 [facility] IPV Inpatient [...] as of this encounter Progress Notes * Haris Forman, [facility] - 03/23/2024 11:00 AM EDT Pharmacist New Chemo Teach Visit PATIENT ID: Oksana Betancourt is a 58 y.o. 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 The plan is for docetaxel/carboplatin/trastuzumab/pertuzumab given every 3 weeks for 6 cycles f ollowed by trastuzumab and pertuzumab given every 3 weeks for a total of 1 year. The following information was reviewed with the patient. Antitumor Therapy Schedule: Docetaxel (Taxotere), Carboplatin (Paraplatin), Pembrolizumab IV every 3 weeks for 6 cycles Docetaxel is given via IV infusion over 60 minutes. Carboplatin is given via IV infusion over 60 minutes. Pembrolizumab is given via IV infusion over 30 minutes. Possible Side Effects include, but are not limited to: Docetaxel (Taxotere): The most common potential side effects include: Hair loss, decrease in blood counts (decrease in white blood cells, red blood cells and platelets, resulting in increased risk ofinfection, anemia and bleeding), fluid retention, fatigue, peripheral neuropathy (pain, numbness ortingling in fingers and toes), nausea, changes in nails, and diarrhea. Less common side effects incl ude allergic reactions to the drug, muscle, bone or joint pain, and changes in liver function tests. Carboplatin (Paraplatin): The most common side effects include decrease in blood counts (decrease in white blood cells, red blood cells and platelets resulting in increased risk of infection, anemia and bleeding), nausea and vomiting, taste changes, hair loss, weakness, low magnesium level. Less common side effects include infusion reaction, diarrhea or constipation, mouth sores, kidney dysfunction, ringing in the ears or hearing loss, electrolyte abnormalities. Pembrolizumab: side effects include but are not limited to low blood counts (decrease in red blood cells, resulting in anemia), fatigue, infusion reaction, skin reactions or rash (redness, blistering, peeling or loosening of the skin, including inside the mouth), increased liver enzymes, constipation or diarrhea, shortness of breath, nausea, vomiting, swelling, itching, electrolyte abnormalities,dizziness, joint or muscle pain, thyroid dysfunction, headaches. A serious but uncommon side effectmay be an immune-mediated reaction. When this side effect occurs, it affects primarily the bowels, liver, skin, nerves and the endocrine system CINV Collaborative Practice Agreement (CPA): Oksana Betancourt has consented to participate in the pharmacist CINV CPA program: Yes CINV Risk Assessment: Age < 50 years: No Female gender: Yes History of morning sickness during : Yes Prone to motion sickness: No History of prior CINV: no, but has baseline nausea History of anxiety or high pretreatment expectation of severe nausea: YES The prevention and management of CINV was reviewed with the patient. Oksana Betancourt demonstrated understanding of how and when to take home prescriptions for antinausea management, and will pick uptheir prescriptions at [facility] . Oksana Betancourt was given the oncology pharmacist contact information should any issues arise whenfilling antinausea prescriptions, or if modifications to the antiemetic regimen are needed to better control CINV. [place] Antiemetics: Cycles 1 through 6 Aprepitant 130 mg IV x 1 Palonosetron 0.25 mg IV x 1 Dexamethasone 10 mg IV/PO x 1 Antiemetic Prescriptions: the following medications should be picked up before starting treatment Prochlorperazine 10 mg PO Q6H PRN nausea/vomiting Dexamethasone 4 mg PO days 2-4 Plan: She was given written information regarding chemotherapy regimen, side effects and managementstrategies. She was given an opportunity to ask questions and verbalized understanding of the information and treatment plan. No barriers to learning were identified. She was counseled on how to callfor any further questions or concerns. Chemotherapy is scheduled to begin on 03/28 Mediport placement: 03/23 Supportive Care: To reduce the risk of neutropenia, She will need injections of pegfilgrastim given the day following chemotherapy. Pegfilgrastim may cause skeletal pain for several days after each injection. Claritin (loratadine) may be helpful in alleviating pegfilgrastim related bone pain. She may take 10 mg starting before her injection and continue to take daily for 5-7 days. Prescriptions for other supportive care agents will be reviewed with patient and written by the EL. Reviewed possible side effects of constipation and diarrhea. Oksana Betancourt should call the clinic if > 3 loose stools per day or > 2 days without a bowel movement. Reviewed the following medications for constipation: polyethylene glycol (MiraLAX), senna (Senokot), docusate (Colace). Reviewed the following medication for diarrhea: loperamide (Imodium A-D). Reviewed that fatigue is a common side effect of cancer treatment. Rest, but not too much: Plan your day so you have time to rest. Take naps that are 30 minutes or less. Try to sleep 7-8 hours each night. Stay active: Stay as active as possible with moderate exercise like walking. Save your energy: Prioritize activities that are most important and plan ahead to spread out activities throughout the day with rest as needed. Get help: Ask family or friends for help if needed. Get support: Consider joining a support group. Sharing feelings can ease the burden of fatigue and you may learn some other coping strategies from others. Eat well: Drink at least 64 fluid ounces of water daily if possible. Prioritize eating healthy fruits, vegetables, and protein. Call your doctor: If you are unable to get out of bed for a 24-hour period, confused, dizzy, or experience shortness of breath, contact the clinic. Reviewed sexual activity. Reviewed the risks of infection and bleeding. Recommended barrier protection in the days following each infusion to prevent any trace chemotherapy in body fluids from affecting a partner. Reviewed hair loss. Most patients will start to notice this 2-4 weeks after starting chemotherapy. Provided a list of local resources for wigs, scarves, and hats. Chemotherapy exposure precautions were reviewed. Advanced directives: A copy of the Advanced Directive form was given to the patient. Will refer to social work to assist with completion. Oksana Betancourt was given the contact information for the breast oncology team ([phone]) and was instructed to call with any questions or concerns during normal business hours (Tuesday-Tuesday 8 am - 5 pm). The hospital lacquer dipping machine operator phone number ([phone]) was provided to reach the on-call oncology fellow during nights, weekends, and holidays. Pharmacy follow up appointment: 04/02 60 of this 60 minute face to face encounter was spent in counseling, education and coordination of care. documented in this encounter Plan of Treatment Upcoming Encounters Date Type Department Care Team (Latest Contact Info) Description 07/30/2024 8:40 AM EST Hospital En[place] [address] Jr Fulton MD [facility] [address] [address] 07/30/2024 8:45 AM EST Appointment [place] [phone] Jr Fulton MD [facility] [place] [address] 07/30/2024 9:20 AM EST Hospital Encounter Mammography at [place] [address] Jr Fulton MD [facility] [place] [address] 07/30/2024 10:51 AM EST Hospital Encounter Outpatient Surgery Center [place] [address] Jr Fulton MD [facility] [place] [address] 07/30/2024 10:51 AM EST Anesthesia Event [facility] [place] [address] Megan Orona [place] [address] 07/30/2024 10:51 AM EST - 07/30/2024 1:11 PM EST Surgery Out[facility] [place] [address] Jr Fulton MD [facility] [place] [address] MASTECTOMY PARTIAL (WRVU 10.13) 08/22/2024 2:00 PM EST Office Visit General Surgery at [place] [address] Cindy Pierce APRN [facility] [place] [address] 08/22/2024 3:00 PM EST Office Visit Hematology and Oncology at [address] Soo Lyn MD [facility] [place] [address] 08/27/2024 9:30 AM EST Scheduled View Only Radiation Oncology at [address] [phone] [address] Nurse[address] [place] 08/27/2024 10:00 AM EST Office Visit Radiation Oncology at [address] [address] Paradise Prado MD [facility] [place] [address] 2024 1:00 PM EDT Office Visit Cardiology at [address] [place] [phone] Ham Montenegro MD [facility] [place] [address] Scheduled Procedures Name Priority Associated Diagnoses Date/Ti [...] negative documented in this encounter Care Teams Network Development Coordinator Relationship Specialty Start Date End Date Gaudencio Scales DO [address] [place] [address] PCP - General Family Medicine 11/28/23 documented as of this encounter
--- OUTSIDE RECORDS SUMMARY | 2024-07-27 12:47 | XMS_ITS | Encounter Summary ---
Author Organization [facility] Address [facility] [place] [address] Care Team Providers Care Stove Bottom Worker Name Role Phone Gaudencio Scales Antoine VERGARA Primary Care Provider Encounter Details Date Type Department Care Team (Latest Contact Info) Description 03/23/2024 Travel Social History Tobacco Use Types Packs/Day [...] from your doctor or pharmacy? Rarely 02/28/2024 [facility] Utilities Answer Date Recorded In the [...] place to sleep or slept in a fci (including now)? No 11/29/2023 Housing Stability Vital [...] time in the past 12 m [facility], were you homeless or living in a fci (including now)? No 02/28/2024 IPV Inpatient Questions [...] 8:40 AM EST Hospital [place] [phone] Jr Fulton MD [facility] [address] [place] [address] 07/30/2024 8:45 AM EST [place] [phone] Jr Fulton MD [facility] [place] [address] 07/30/2024 9:20 AM EST Hospital Encounter Mammography at [address] Jr Fulton MD [facility] [place] [address] 07/30/2024 10:51 AM EST Hospital Encounter Outpatient Surgery Center [place] [phone] Jr Fulton MD [facility] [place] [address] 07/30/2024 10:51 AM EST Anesthesia Event Outpatient Surgery Center [address]1000 Megan [place] [address] 07/30/2024 10:51 AM EST - 07/30/2024 1:11 PM EST Surgery Outpatient Surgery Center [address]1000 Jr Fulton MD [facility] [place] [address] MASTECTOMY PARTIAL (WRVU 10.13) 08/22/2024 2:00 PM EST Office Visit General Surgery at [address] Cindy Pierce APRN [facility] [place] [address] 08/22/2024 3:00 PM EST Office Visit Hematology [place] [address] Soo Lyn MD [facility] [place] [address] 08/27/2024 9:30 AM EST Scheduled View Only Radiation Oncology at [address] [phone] [address] Ovalles 08/27/2024 10:00 AM EST Office Visit Radiation Oncology at [address] [phone] Paradise Prado MD [facility] [place] [address] 2024 1:00 PM EDT Office Visit Cardiology at [address] [phone] Ham Montenegro MD [facility] [place] [address] Scheduled Procedures Name Priority Associated Diagnoses Date/Ti [...] on filedocumented in this encounter Care Teams Stove Bottom Worker Relationship Specialty Start Date End Date Gaudencio Scales DO [address] [place] [address] PCP - General Family Medicine 11/28/23 documented as of this encounter
--- OUTSIDE RECORDS SUMMARY | 2024-07-27 12:47 | XMS_ITS | Encounter Summary ---
Author Organization [facility] Address [facility] [place] [address] Care Team Providers Care Hyster Driver Name Role Phone Gaudencio Scales Antoine VERGARA Primary Care Provider [phone] Encounter Details Date Type Department Care Team (Latest Contact Info) Description 03/26/2024 10:01 AM EDT - 03/26/2024 11:59 PM EDT Hospital Encounter [place] [phone] Ana Weber MD [facility] DIAGNOSTIC [place] [address] Abnormal finding on breast imaging Discharge Disposition: [...] from your doctor or pharmacy? Rarely 02/28/2024 [facility] Utilities Answer Date Recorded In the past 12 months has [employer] electric, gas, oil, or water company threatened [...] any time in the past 12 m [facility], were you homeless or living in a half-way (including now)? No 02/28/2024 DH IPV Inpatient [...] 8:40 AM EST Hospital Encounter Mammography at [place] [phone] Jr Fulton MD [facility] [place] [address] 07/30/2024 8:45 AM EST Appointment Mammography at [place] [phone] Jr Fulton MD [facility] [place] [address] 07/30/2024 9:20 AM EST Hospital Encounter [place] [phone] Jr Fulton MD [facility] [address] [place] [address] 07/30/2024 10:51 AM EST Hospital Encounter [place] [phone] Jr Fulton MD [facility] [address] [place] [address] 07/30/2024 10:51 AM EST Anesthesia Event [place] [phone] Megan Oron[place] [address] 07/30/2024 10:51 AM EST - 07/30/2024 1:11 PM EST Surgery Outpatient Surgery [facility] [place] [phone] Jr Fulton MD [facility] [place] [address] MASTECTOMY PARTIAL (WRVU 10.13) 08/22/2024 2:00 PM EST Office Visit General Surgery at [place] [phone] Cindy Pierce APRN [facility] DR GENERAL [place] [address] 08/22/2024 3:00 PM EST Office Visit Hematology and Oncology at [place] [phone] Soo Lyn MD [facility] DR MEDICAL [place] [address] 08/27/2024 9:30 AM EST Scheduled View Only Radiation Oncology at [address] [phone] St Josr Whitley 08/27/2024 10:00 AM EST Office Visit Radiation Oncology at [address] [phone] Paradise Prado MD [facility] RADIATION [place] [address] 2024 1:00 PM EDT Office Visit Cardiology at [address] [place] [phone] Ham Montenegro MD [facility] [place] [address] Scheduled Procedures Name Priority Associated Diagnoses Date/Ti [...] Name Priority Date/Time Associated Diagnosis Comments MAMMO DIAGNOSTIC WITHOUT CAD LEFT Routine 03/26/2024 11:34 AM EDT Abnormal finding on breast imaging documented in this encounter Results * Mammo Diagnostic Without Cad Left (03/26/2024 11:34 AM EDT) WORKSTATION ID [id number] DH RAD Anatomical Region Laterality Modality Breast Left [...] who have questions please contact the health foster care therapist that requested your imaging first. ? Narrative 03/27/2024 4:57 PM EDT ULTRASOUND GUIDED [...] radiographed. N/A Satisfactory sampling was obtained. A [employer]box 14G marker clip was placed. Cranio-caudal and lateral digital mammography performed to determine biopsy marker placement, which was shown to be 0 cm from the biopsy site in N/A direction. COMPLICATIONS: None. PROCEDURAL ATTESTATION: Resident: I performed the procedure without a resident. IMAGING DIFFERENTIAL DIAGNOSIS: Metastatic node, reactive node PATHOLOGIC DIAGNOSIS: Small metastatic focus within node Ana Weber MD IMG MAMMO ORDERABLES documented in this encounter Visit Diagnoses Diagnosis Abnormal finding on breast imaging Other (abnormal) findings on radiological examination of breast documented in this encounter Care Teams Hyster Driver Relationship Specialty Start Date End Date Gaudencio Scales DO [address] [place] [address] PCP - General Family Medicine 11/28/23 documented as of this encounter
--- OUTSIDE RECORDS SUMMARY | 2024-07-27 12:48 | XMS_ITS | Encounter Summary ---
Author Organization [facility] Address [facility] [place] [address] Care Team Providers Care Colloid Mill Operator Name Role Phone Gaudencio Scales Primary Care Provider [phone] Reason for Referral * Diagnostic Test (Routine) - Closed Specialty Diagnoses / Procedures Referred By Radha carr Referred To Contact Radiology Diagnoses Malignant neoplasm of left breast in female, estrogen receptor negative, unspecified site of breast Procedures MRI Breast wwo Contrast Bilat Jr Fulton MD [facility] [place] [address] [facility] [place] [address] Referral ID Status Reason Start Date Expiration Date V isits Requested Visits Authorized [id number] Closed Specialty Service Requested 02/18/2024 08/18/2025 1 1 Encounter Details Date Type Department Care Team (Late st Contact Info) Description 02/17/2024 Orders [place] [phone] Jr Fulton MD [facility] [place] [address] Malignant neoplasm of left breast in female, estrogen receptor negative, unspecified site of breast (Primary Dx) Social History Tobacco Use Types Packs/Day Years Used Date Smoking Tobacco: Former Cigarettes 1 40 0 11/17/1981 - 11/17/2021 Smokeless Tobacco: Never Alcohol Use Standard Drinks/Week Comments Not Currently 0 (1 standard drink = 0.6 oz pur e alcohol) [facility] Utilities Answer Date Recorded In the past 12 months has th e electric, gas, oil, or water company threatened to shut off services in your home? No 11/29/2023 Hunger Vital Sign Answer Date Recorded Within the past 12 months, y ou worried that your food would run out before you got the money to buy more. Never true 11/29/19 24 Within the past 12 months, t he food you bought just didn't last and you didn't have money to get more. Never true 11/29/2023 PRAPARE - Transportation Answer Date Re corded In the past 12 months, has l ack of transportation kept you from medical appointments or from getting medications? No 11/17 In the past 12 months, has l ack of transportation kept you from meetings, work, or from getting things needed for daily living? No 11/29/2023 Housing Stability Vital Sign Answer [...] a senior living (including now)? No 11/29/2023 DH IPV Inpatient Questions Answer Date Recorded [...] 8:40 AM EST Hospital [place] [address] Jr Fulton MD [facility] [address] [place] [address] 07/30/2024 8:45 AM EST Appointment Mammography at [place] [address] Jr Fulton MD [facility] [place] [address] 07/30/2024 9:20 AM EST Hospital Encounter Mammography at [address]1000 Jr Fulton MD [facility] [address] 07/30/2024 10:51 AM EST Hospital Encounter [place] [address] Jr Fulton MD [facility] [address] [place] [address] 07/30/2024 10:51 AM EST Anesthesia Event Outpatient Surgery Center [place] [address] Megan Orona APR[place] [address] 07/30/2024 10:51 AM EST - 07/30/2024 1:11 PM EST Surgery Outpatient Surgery Center [address]1000 Jr Fulton MD [facility] [place] [address] MASTECTOMY PARTIAL (WRVU 10.13) 08/22/2024 2:00 PM EST Office Visit General Surgery at [address] Cindy Pierce APRN [facility] [place] [address] 08/22/2024 3:00 PM EST Office Visit Hematology [place] [address] Soo Lyn MD [facility] [place] [address] 08/27/2024 9:30 AM EST Scheduled View Only Radiation Oncology at [address] [phone] [address] Nurse[address] Ovalles 08/27/2024 10:00 AM EST Office Visit Radiation Oncology at [address] [phone] Paradise Prado MD [facility] [place] [address] 2024 1:00 PM EDT Office Visit Cardiology at [address] [place] [phone] Ham Montenegro MD [facility] [place] [address] Scheduled Procedures Name Priority Associated Diagnoses Date/Ti [...] documented as of this encounter Results * MRI Breast wwo Contrast Bilat (03/06/2024 4:10 PM EDT) WORKSTATION ID [id number] 1 RAD Anatomical Region Laterality Modality Breast Bilateral Magnetic Resonan ce Impressions 03/07/2024 8:09 AM EDT 1. ??Known left breast malignancy with biopsy clip in place. 2. ??Enlarged intramammary node in LEFT axillary tail 3. ??No evidence of malignancy within the right breast. RECOMMENDATION: Ultrasound and potential biopsy for left lesion #2 FINAL ASSESSMENT: LEFT BREAST: BI-RADS Category 6: Known Biopsy-Proven Malignancy RIGHT BREAST: BI-RADS Category 2: Benign Findings I have personally reviewed the image(s) and the resident's interpretation and agree with the findings, Ana Weber MD at 03/07/2024 8:09 AM Thank you for letting us participate in the care of this patient. ??If you are a health care provider and have any questions regarding this report, please contact the number below. ??For patients who have questions please contact the health career and transition teacher that requested your imaging first. ? Narrative 03/07/2024 8:09 AM EDT EXAMINATION: MRI BREAST WWO CONTRAST BILAT CLINICAL INDICATION: new breast cancer. 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 Subcentimeter upper outer quadrant. Family history of sister with breast cancer who at age 46. TECHNIQUE: Multiplanar sequences were obtained pre- and post- Dotarem enhancement, to include SPGR weighted dynamic run-off and subtraction sequences obtained after the intravenous administration of 21 ccs of Dotarem. Computer algorithm analysis for lesion detection and kinetic contrast enhancement curve analysis was performed, using YAMAP software. COMPARISON STUDIES: Compared and/or correlated with prior studies including mammogram and ultrasound 02/03/2024 FINDINGS: Background Enhancement Pattern (first post Dotarem image): Moderate (50-75% breast) Amount of Fibroglandular Tissue: There are scattered areas of fibroglandular density. LEFT Breast: Left breast lesion #1: Spiculated 1.5 cm mass in the left upper outer quadrant at the 1:00 radian, 7 cm from the nipple by MRI (Series 11 image 38). Rapid initial upslope with washout kinetics on delayed imaging. Left breast lesion #2 Additional 1.0 cm well-circumscribed round enhancing mass in the posterior left upper outer breast the 1:00 radian, 12.6 cm from the nipple (series 12 image 45). Rapid initial upslope with washout kinetics on delayed imaging. This is T2 bright and corresponds to an intramammary node seen on the patient's current mammogram. This node has enlarged since 2018 Scattered areas of punctate enhancement most consistent with normal fibroglandular tissue. RIGHT BREAST LESION Punctate areas of increased enhancement consistent with benign fibrocystic/hormonal change. No morphologic abnormalities or areas of abnormal parenchymal enhancement. Lymph Node Basins/Other: There is no evidence of internal mammary or axillary adenopathy. No significant abnormalities are seen in the chest wall or skin. Jr Fulton MD [facility] MRI ORDERABLES * Request for 2nd read Mammo (02/24/2024 9:23 AM EDT) WORKSTATION ID [id number] 1 DH RAD Anatomical Region Laterality Modality SO Impressions 02/24/2024 5:16 PM EDT 1. ??Biopsy-proven left breast triple negative invasive ductal carcinoma (Lesion 1) is demonstrated as a 1 cm irregular mass at 1 o'clock 7 cm from the nipple on the mammogram and ultrasound. Postbiopsy clip films are not available for review to assess clip position. 2. ??Additional, left breast segmental abnormal increase in overall breast density spanning 7 cm with an area of architectural distortion and faint calcifications, positioned at 1-2 o'clock 5 cm from the nipple, incompletely characterized by outside imaging (Lesion 2). This is concerning for either multifocal disease or perhaps extensive DCIS. Recommend breast MRI for more complete staging of extent of disease, and to help guide additional biopsies, as needed. 3. ??Prominent low axillary or intramammary lymph node has not been completely evaluated by ultrasound. This can be further evaluated on breast MRI and ultrasound, if indicated. 4. ??Negative right breast mammogram. Recommendation: 1. ??Staging, diagnostic bilateral breast MRI and additional tissue biopsy of the area of architectural distortion with calcifications (at the least), either by mammography, ultrasound, or MRI depending upon additional findings. FINAL ASSESSMENT: BI-RADS Category 4: Suspicious Finding - Biopsy Should Be Considered Please note: The interpretation of the [facility] Breast Imaging Radiologist subspecialist may differ from the original radiologists interpretation. This is usually not due to a deficiency of the original interpreting radiologist, rather due to the greater skill level afforded by sub-specialization in the field and/or reasonable variations in interpretations. If you have a concern regarding the D- interpretation you may contact the [facility] Breast Finance Officer Office at . Thank you for letting us participate in the care of this patient. ??If you are a health care provider and have any questions regarding this report, please contact the number below. ??For patients who have questions please contact the health career and transition teacher that requested your imaging first. ? Narrative 02/24/2024 5:16 PM EDT INTERPRETATION OF OUTSIDE BREAST IMAGING I have been asked to consult on this patient because a review of this study may change or alter the care of this patient. STUDIES FROM: [facility] CLINICAL HISTORY: 2nd opinion - triple neg breast cancer - tx planning; I believe a reinterpretation of this exam may alter care of Patient. Yes; What Modality is the exam? Mammography; Body Part (please add comments as necessary): breast; Sending Institution [place]; Date of exam [id number]. ?? DATES and TYPE OF EXAM: Screening mammogram 01/17/2024, diagnostic left breast mammogram 02/03/2024 and left breast ultrasound 02/03/2024 COMPARISONS: Screening mammogram 06/07/2018 BREAST DENSITY: There are scattered areas of fibroglandular density. FINDINGS: Left breast: * ??In the upper breast, 8 cm from the nipple, there is a high density irregularly marginated mass measuring 1 cm. This corresponds to the irregular, hypoechoic mass documented at 1 o'clock, 7 cm from the nipple by ultrasound. This was biopsied. No postbiopsy mammogram is submitted for review. (Lesion 1) * ??There is a low axillary intramammary lymph node seen on the MLO view which is larger compared to the prior mammogram and not confidently documented by ultrasound. * ??In addition, compared to the prior screening mammogram, there is an overall increase in density in the upper outer breast along the 1-2 o'clock segment, spanning 7 cm. Within this area of increased tissue, there are scattered calcifications and an area of architectural distortion, 1-2 o'clock position and 4 to 5 cm from the nipple. This was not documented on prior ultrasound. Right breast: No dominant mass, distortion, or suspicious calcifications. No definitive change from prior. Procedure Note Kerrie Prasad MD - 02/24/2024 INTERPRETATION OF OUTSIDE BREAST IMAGING I have been asked to consult on this patient because a review of thisstudy may change or alter the care of this patient. STUDIES FROM: [facility] CLINICAL HISTORY: 2nd opinion - triple neg breast cancer - tx planning;I believe a reinterpretation of this exam may alter care of Patient. Yes;What Modality is the exam? Mammography; Body Part (please add comments asnecessary): breast; Sending Institution [facility]; Date of exam [id number]. DATES and TYPE OF EXAM: Screening mammogram 01/17/2024, diagnostic leftbreast mammogram 02/03/2024 and left breast ultrasound 02/03/2024 COMPARISONS: Screening mammogram 06/07/2018 BREAST DENSITY: There are scattered areas of fibroglandular density. FINDINGS: Left breast: * In the upper breast, 8 cm from the nipple, there is a high density irregularly marginated mass measuring 1 cm. This corresponds to theirregular, hypoechoic mass documented at 1 o'clock, 7 cm from the nipple byultrasound. This was biopsied. No postbiopsy mammogram is submitted for review.(Lesion 1) * There is a low axillary intramammary lymph node seen on the MLO viewwhich is larger compared to the prior mammogram and not confidently documented by ultrasound. * In addition, compared to the prior screening mammogram, there is anoverall increase in density in the upper outer breast along the 1-2 o'clocksegment, spanning 7 cm. Within this area of increased tissue, there are scattered calcifications and an area of architectural distortion, 1-2 o'clockposition and 4 to 5 cm from the nipple. This was not documented on prior ultrasound. Right breast: No dominant mass, distortion, or suspicious calcifications.No definitive change from prior. IMPRESSION 1. Biopsy-proven left breast triple negative invasive ductal carcinoma(Lesion 1) is demonstrated as a 1 cm irregular mass at 1 o'clock 7 cm from thenipple on the mammogram and ultrasound. Postbiopsy clip films are not available forreview to assess clip position. 2. Additional, left breast segmental abnormal increase in overallbreast density spanning 7 cm with an area of architectural distortion and faint calcifications, positioned at 1-2 o'clock 5 cm from the nipple,incompletely characterized by outside imaging (Lesion 2). This is concerning foreither multifocal disease or perhaps extensive DCIS. Recommend breast MRI formore complete staging of extent of disease, and to help guide additionalbiopsies, as needed. 3. Prominent low axillary or intramammary lymph node has not beencompletely evaluated by ultrasound. This can be further evaluated on breast MRI and ultrasound, if indicated. 4. Negative right breast mammogram. Recommendation: 1. Staging, diagnostic bilateral breast MRI and additional tissue biopsyof the area of architectural distortion with calcifications (at the least),either by mammography, ultrasound, or MRI depending upon additional findings. FINAL ASSESSMENT: BI-RADS Category 4: Suspicious Finding - Biopsy Should Be Considered Please note: The interpretation of the [facility] BreastImaging Radiologist subspecialist may differ from the original radiologists interpretation. This is usually not due to a deficiency of the original interpreting radiologist, rather due to the greater skill level affordedby sub-specialization in the field and/or reasonable variations ininterpretations. If you have a concern regarding the D-H interpretation you may contact [facility] at . Thank you for letting us participate in the care of this patient. If youare a health care provider and have any questions regarding this report,please contact the number below. For patients who have questions please contactthe health career and transition teacher that requested your imaging first. Jr Fulton MD IMG OUTSIDE INTERPRE TATION ORDERABLES documented in this encounter Visit Diagnoses Diagnosis Malignant neoplasm of left breast in female, estrogen receptor negative, unspecified site of breast- Primary Malignant neoplasm of left breast in female, estrogen receptor negative, unspecified site of breast Malignant neoplasm of left breast in female, estrogen receptor negative, unspecified site of breast documented in this encounter Care Teams Colloid Mill Operator Relationship Specialty Start Date End Date Gaudencio Scales DO 4 [facility] [place] [address] PCP - General Family Medicine 11/28/23 documented as of this encounter
--- OUTSIDE RECORDS SUMMARY | 2024-07-27 12:48 | XMS_ITS | Encounter Summary ---
Author Organization [facility] Address [facility] [place] [address] Care Team Providers Care Vertica Architect Name Role Phone Gaudencio Scales Primary Care Provider [phone] Encounter Details Date Type Department Care Team (Late st Contact Info) Description 02/21/2024 Notes Only Hematology and Oncology at [facility] [place] [address] Tresa Zapata Social History Tobacco Use Types [...] from your doctor or pharmacy? Rarely 05/29/2024 [facility] Utilities Answer Date [...] any time in the past 12 m [facility], were you homeless or living in a fci (including now)? No 07/09/2024 IPV Inpatient Questions [...] encounter Progress Notes * Tresa Zapata - 02/21/2024 1:44 PM EDT Images from the original note were not included. New Breast Cancer Referral Oksana Betancourt [id number] Biopsy Location:[facility] Biopsy Date: 02.10.24 Date of referral: 02.14.24 [x]Packet sent [x]Patient notified of appointments Diagnoses: BREAST, LEFT, NOT OTHERWISE SPECIFIED, CORE BIOPSY: - Adenocarcinoma, invasive, ductal type Receptors: Her2- negative for estrogen receptors. - negative for progesterone receptors. Tumor size: 1.1 Scans: MRI 03.06.24 Lab: 03.06.24 Surgeon:Donaldo 11.14.25 - post/op Cindy Stan 08.22.24 Plastics: Date of Surgery:07.12.24 Med/Onc: Eboni - may want to transfer to [facility] carlyle Condon. surgery was cx's - [facility] post/op per Brent 08/22/24 Rad/Onc: [facility] 08/27 Physical Therapy: Referral sent Outside Records: [x]Path slides [x] Images [x] Clinic notes [x] Image review ordered Neoadjuvant []Yes []No Notes - Soo odom MD sent to Winter Snell RN; Tresa Zapata Any tentative date for surgery? Would like to see her after surgery as nothing to do before that. Previous Messages ----- Message ----- From: Winter Snell RN Sent: 07/12/2024 9:50 AM EDT To: Tresa Zapata; Soo Lyn MD Subject: Surgery was cancelled. She's inpatient Surgery for today cancelled. She has f/u with Brent (and Tomás) on 07/25. Not sure if Brent wants to keep his appt. on the books for now. Thanks. [facility]. Pt notified documented in this encounter Plan of Treatment Upcoming Encounters Date Type Department Care Team (Latest Contact Info) Description 07/30/2024 8:40 AM EST Hospital [place] [phone] Jr Fulton MD [facility] [place] [address] 07/30/2024 8:45 AM EST [place] [phone] Jr Fulton MD [facility] [place] [address] 07/30/2024 9:20 AM EST Hospital Encounter Mammography at [place] [address] Jr Fulton MD [facility] [place] [address] 07/30/2024 10:51 AM EST Hospital Encounter Outpatient Surgery Center [place] [address] Jr Fulton MD [facility] [place] [address] 07/30/2024 10:51 AM EST Anesthesia Event Outpatient [facility] [place] [address] Megan [place] [address] 07/30/2024 10:51 AM EST - 07/30/2024 1:11 PM EST Surgery Outpatient Surgery [facility] [place] [address] Jr Fulton MD [facility] [place] [address] MASTECTOMY PARTIAL (WRVU 10.13) 08/22/2024 2:00 PM EST Office Visit General Surgery at [place] [address] Cindy Pierce APRN [facility] [place] [address] 08/22/2024 3:00 PM EST Office Visit Hematology [place] [address] Soo Lyn MD [facility] [place] [address] 08/27/2024 9:30 AM EST Scheduled View Only Radiation Oncology at [address] [phone] [address] Nurse[address] Ovalles 08/27/2024 10:00 AM EST Office Visit Radiation Oncology at [address] [phone] Paradise Prado MD [facility] RADIATION [place] [address] 2024 1:00 PM EDT Office Visit Cardiology at [address] [address] Ham Montenegro MD [facility] [place] [address] Scheduled Procedures Name Priority Associated Diagnoses Date/Ti [...] on filedocumented in this encounter Care Teams Vertica Architect Relationship Specialty Start Date End Date Gaudencio Scales DO [address] [place] [address] PCP - General Family Medicine 11/28/23 documented as of this encounter
--- OUTSIDE RECORDS SUMMARY | 2024-07-27 12:48 | XMS_ITS | Encounter Summary ---
Author Organization [facility] Address [facility] [place] [address] Care Team Providers Care Irrigation Supervisor Name Role Phone Gaudencio Scales Primary Care Provider [phone] Reason for Referral * Diagnostic Test (Routine) - Closed Specialty Diagnoses / Procedures Referred By Radha carr Referred To Contact Radiology Diagnoses Malignant neoplasm of upper-outer quadrant of left breast in female, estrogen receptor negative Procedures IR Mediport Placement Soo Lyn MD [facility] [place] [address] [place] [address] Referral ID Status Reason Start Date Expiration Date V isits Requested Visits Authorized [id number] Closed Specialty Service Requested 03/14/2024 09/13/2025 1 1 Encounter Details Date Type Department Care Team (Late st Contact Info) Description 03/14/2024 Orders Only Hematology [place] [phone] Soo Lyn MD [facility] [place] [address] Malignant neoplasm of upper-outer quadrant of left [...] from your doctor or pharmacy? Rarely 02/28/2024 [facility] Utilities Answer Date Recorded In the [...] any time in the past 12 m [facility], were you homeless or living in a penitentiary (including now)? No 02/28/2024 IPV Inpatient Questions [...] 8:40 AM EST Hospital Encounter Mammography at [place] [phone] Jr Fulton MD [facility] [address] [address] 07/30/2024 8:45 AM EST Appointment Mammography at [place] [phone] Jr Fulton MD [facility] [place] [address] 07/30/2024 9:20 AM EST Hospital Encounter Mammography at [place] [phone] Jr Fulton MD [facility] [address] [address] 07/30/2024 10:51 AM EST Hospital Encounter Outpatient [place] [phone] Jr Fulton MD [facility] [address] [address] 07/30/2024 10:51 AM EST Anesthesia Event Outpatient Surgery Center [place] [phone] Megan Orona APR[place] [address] 07/30/2024 10:51 AM EST - 07/30/2024 1:11 PM EST Surgery Outpatient [facility] [place] [phone] Jr Fulton MD [facility] [place] [address] MASTECTOMY PARTIAL (WRVU 10.13) 08/22/2024 2:00 PM EST Office Visit General Surgery at [place] [phone] Cindy Pierce APRN [facility] [place] [address] 08/22/2024 3:00 PM EST Office Visit Hematology and Oncology at [place] [phone] Soo Lyn MD [facility] DR [place] [address] 08/27/2024 9:30 AM EST Scheduled View Only Radiation Oncology at [address] [phone] St Josr [place] 08/27/2024 10:00 AM EST Office Visit Radiation Oncology at [address] [phone] Paradise Prado MD [facility] [place] [address] 2024 1:00 PM EDT Office Visit Cardiology at [address] [place] [phone] Ham Montenegro MD [facility] [place] [address] Scheduled Procedures Name Priority Associated Diagnoses Date/Ti [...] documented as of this encounter Results * IR Mediport Placement (03/23/2024 2:55 PM EDT) Anatomical Region Laterality Modality X-Ray Angiograph y Narrative 03/23/2024 3:31 PM EDT Interventional Radiology Procedure Note Procedure: Venous chest port implant Indication: Left breast cancer, durable senior care central venous access for chemotherapy Procedure summary: 1.) Venous access with ultrasound guidance 2.) Tunneled port insertion under fluoroscopic guidance Pre-procedure: Informed consent for the procedure including risks, benefits, and alternatives was obtained. Active time-out was performed prior to the procedure. Maximum sterile barrier technique was used throughout the procedure. Sedation: The patient received split doses of intravenous midazolam and fentanyl from the interventional radiology nurse while pulse, pressure, and oxygen saturation were continuously monitored. Technique: The patient's neck was sonographically evaluated for potential access sites, and the right internal jugular vein was determined to be patent. Local anesthetic was administered. The vein was accessed via real-time ultrasound and micropuncture set with 21 gauge needle and a permanent image was stored. A 0.018 wire was advanced into superior vena cava. The remainder of the procedure was performed under fluoroscopic guidance. A 4 Fr introducer sheath was placed and the wire exchanged for a 0.035 J wire. The wire was advanced into the inferior vena cava. Local anesthetic was administered on the anterior chest wall inferolateral to the puncture site. A 2 cm transverse incision was made in the right anterior chest wall, and with blunt dissection the port pocket was created. A trocar was then used to advance the catheter subcutaneously to the venous access site. A 4 Fr introducer sheath was exchanged for a peel-away sheath over the wire. The wire and inner obturator were removed and the catheter advanced into the superior vena cava under fluoroscopic guidance. The catheter was trimmed to appropriate length and attached to the port. The port was inserted into the pocket and the sheath was removed. Catheter tip location was identified and a permanent image was stored. The port flushed and aspirated well. The pocket was closed using a two-layer technique with 2-0 vicryl deep interrupted and 4-0 vicryl running sutures. The skin closed was with dermabond. The port was not left accessed. Medications: Lidocaine 1% 10 mL subcut; lidocaine 2% with epinephrine 1:100,000 10 mL subcut; midazolam 4.5 mg IV; fentanyl 225 mcg IV Contrast: None Fluoroscopy: 4.96 mGy Estimated blood loss: 2 mL Complications: No immediate Impression: Patent right internal jugular vessel by sonographic evaluation. Implantation of power-injectable, Bard Vas-Cath 8 F single-lumen port in right chest with tip in the superior cavoatrial junction. The port may be used immediately. Service provider: Cely Schmitt PA-C ??Present during the intraservice time as documented by the interventional radiology nurse. Attending of record: Alexandro Moser MD 03/23/2024 Soo Lyn MD [facility] IR ORDERABLES documented in this encounter Visit Diagnoses Diagnosis Malignant neoplasm of upper-outer quadrant of left breast in female, estrogen receptor negative- Primary Malignant neoplasm of upper-outer quadrant of left breast in female, estrogen receptor negative documented in this encounter Care Teams Irrigation Supervisor Relationship Specialty Start Date End Date Gaudencio Scales DO [address] [place] [address] PCP - General Family Medicine 11/28/23 documented as of this encounter
--- OUTSIDE RECORDS SUMMARY | 2024-07-27 12:48 | XMS_ITS | Encounter Summary ---
Author Organization [facility] Address [facility] [place] [address] Care Team Providers Care Manager Quantitative Name Role Phone Gaudencio Scales DO Primary Care Provider [phone] Encounter Details Date Type Department Care Team (Latest Contact Info) Description 02/22/2024 1:47 PM EDT - 02/22/2024 11:59 PM EDT Hospital Encounter Laboratory [facility] [place] [phone] Discharge Disposition: Home Social History Tobacco Use Types Packs/Day Years Used Date Smoking Tobacco: Former Cigarettes 1 40 0 11/17/1981 - 11/17/2021 Smokeless Tobacco: Never Alcohol Use Standard Drinks/Week Comments Not Currently 0 (1 standard drink = 0.6 oz pur e alcohol) [facility] Utilities Answer Date Recorded In the past 12 months has th e electric, gas, oil, or water company threatened to shut off services in your home? No 11/29/2023 Overall Financial Resource Strain (CARDIA) Answe r Date Recorded How hard is it for you to pa y for the very basics like food, housing, medical care, and heating? Not very hard 02/22/2024 Hunger Vital Sign Answer Date Recorded Within [...] medical appointments or from getting medications? No 01/2024 In the past 12 months, has l ack of transportation kept you from meetings, work, or from getting things needed for daily living? No 02/22/2024 Housing Stability Vital Sign Answer Jeferson e [...] in a fpc (including now)? No 11/29/2023 DH IPV Inpatient [...] Sig Dispensed Refills Start Date End Date atorvastatin (Lipitor) 80 mg tablet Take 1 [...] capsule 20M Capsule(s), PO, Once daily 01/12/2006 furosemide (Lasix) 20 mg tablet Take 1 [...] 8:40 AM EST Hospital Encounter Mammography at [place] [phone] Jr Fulton MD [facility] [place] [address] 07/30/2024 8:45 AM EST Appoint[place] [phone] Jr Fulton MD [facility] [address] [place] [address] 07/30/2024 9:20 AM EST Hospital [place] [phone] Jr Fulton MD [facility] [place] [address] 07/30/2024 10:51 AM EST Hospital Encounter Outpatient Surgery Center [place] [phone] Jr Fulton MD [facility] [place] [address] 07/30/2024 10:51 AM EST Anesthesia Event Outpatient Surgery Center [place] [address] Megan Orona [place] [address] 07/30/2024 10:51 AM EST - 07/30/2024 1:11 PM EST Surgery Outpatient [facility] [place] [address] Jr Fulton MD [facility] [place] [address] MASTECTOMY PARTIAL (WRVU 10.13) 08/22/2024 2:00 PM EST Office Visit General Surgery at [address] Cindy Pierce APRN [facility] [place] [address] 08/22/2024 3:00 PM EST Office Visit Hematology and Oncology at [place] [phone] Soo Lyn MD [facility] [place] [address] 08/27/2024 9:30 AM EST Scheduled View Only Radiation Oncology at [address] [phone] [facility] Jos[facility] [place] 08/27/2024 10:00 AM EST Office Visit Radiation Oncology at [address] [phone] Paradise Prado MD [facility] [place] [address] 2024 1:00 PM EDT Office Visit Cardiology at [address] [place] [address] Ham Montenegro MD [facility] [place] [address] Scheduled Procedures Name Priority Associated Diagnoses Date/Ti [...] Procedure Name Priority Date/Time Associated Diagnosis Comments SURGICAL PATHOLOGY REPORT Routine 02/22/2024 1:47 PM EDT documented in this encounter Results * (ABNORMAL) Surgical Pathology Report (02/22/2024 1:47 PM EDT) Final Diagnosis [id number] ? Location: OPW The signing pathologist has (i) examined the relevant preparation(s) for the specimen(s) and (ii) rendered or confirmed the diagnosis(es). . ?Surgical Pathology DIAGNOSIS CONSULTATION CASE Outside slide(s) labeled [id number], collection date 02/10/2024: A- Left breast, core needle biopsy: - Invasive ductal carcinoma, high grade (modified SBR score = 8), ??measuring at least 7.0 mm. - Focus suspicious for lymphovascular invasion identified. 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 Electronically signed by: ?Mariajose TINSLEY, Bob Verified: ??02/22/2024 15:23 ??Pathologist Performed at: ??-[facility] Dept. of Pathology, [place] [address] Senior Budget Analyst: Mario Alex MD, AP, ??CLIA Certificate: [id number] DISCUSSION THIS RESULT REQUIRES PHYSICIAN/A.P.P. FOLLOW UP Provide immunostains show that the tumor cells are negative for ER, MD and HER2 (0). SPECIMEN(S) SUBMITTED CONSULTATION CASE A - 6 slide(s) labeled [id number], collection date 02/10/2024. [id number] CARBON COPY: [facility] Surgical Pathology Department [facility], [facility], 2nd Floor [address], [place] ??[address] CLINICAL INFORMATION Left breast lesion SPECIMEN PROCESSING [facility] ([facility]) pathology slide(s) are reviewed. Refer to Diagnosis and Specimen Submitted for specific case information. For the full text of the [facility] report(s) please refer to the Chart Review Media tab in the electronic health record (eDH).(A) 02/22/2024 3:23 PM EDT [facility] Consult Case 02/22/2024 1:47 PM EDT 02/22/2024 1:47 PM EDT Jr Fulton MD PATHOLOGY/CYTOLOGY [facility] [place] [address] documented in this encounter Visit Diagnoses Not on filedocumented in this encounter Care Teams Manager Quantitative Relationship Specialty Start Date End Date Gaudencio Scales DO [address] [place] [address] PCP - General Family Medicine 11/28/23 documented as of this encounter
--- OUTSIDE RECORDS SUMMARY | 2024-07-27 12:48 | XMS_ITS | Encounter Summary ---
Author Organization [facility] Address [facility] [place] [address] Care Team Providers Care Stitch Bonding Machine Tender Name Role Phone Gaudencio Scales Antoine VERGARA Primary Care Provider [phone] Encounter Details Date Type Department Care Team (Late st Contact Info) Description 02/22/2024 Patient Outreach Hematology and Oncology at [facility] [address] Winter Snell RN Social History Tobacco Use Types Packs/Day Years Used Date Smoking Tobacco: Former Cigarettes 1 40 0 11/17/1981 - 11/17/2021 Smokeless Tobacco: Never Alcohol Use Standard Drinks/Week Comments Not Currently 0 (1 standard drink = 0.6 oz pur e alcohol) [facility] Utilities Answer Date [...] in a penitentiary (including now)? No 11/29/2023 IPV Inpatient Questions Answer Date Recorded Does [...] as of this encounter Progress Notes * Winter Snell RN - 02/22/2024 4:29 PM EDT Cancer Center Nurse Navigation Patient Care Plan for the Comprehensive Breast Program (CBP) Date of call: 02/21 Reason for call: contacted Oksana Betancourt via phone to assess for nurse navigation services, per CBP notification, and to see if she had any questions prior to her surgical and medical oncology consultations at [facility]. Introduced her to the CBP. Oksana Betancourt is a 58 y.o. female with newly diagnosed ER-/[place]-/Her-2 negative left breast invasive ductal carcinoma and ductal carcinoma in situ (left breast biopsy 02/10/[address] [facility]). Oksana sounds positive and has support from her brother and sister in law who live next door to her. Her SERVANDO will accompany her to appointments. She appears to be coping ok but states she is scared to . She is eager to meet with a breast medical oncologist and breast surgeon to determine a treatment plan. She understands Dr. Lyn will discuss chemotherapy with her (either before or after surgery) at her 02/[address] Fulton will discuss surgical options (either partial mastectomy or mastectomy) on 03/14. She is not working. She states she had Hodgkin lymphoma about 35 years ago and was treated with radiotherapy to her chest and also underwent splenectomy in [place], [place]. Per notes she has a cardiac history and was recently discharged from [facility] on 12/04 s/p NSTEMI. Menopausal status: Postmenopausal Tyron is active. Plan: Appointments for breast MRI and consultations with a breast surgeon and a medical oncologist have been scheduled. She was introduced to the CBP and told she would receive information about her diagnosis and treatment for her review (the Breast Cancer Treatment Handbook). Plan to meet with Oksana on the day of her surgical oncology consultation. She understands that LEYDA Oscar, LANDON, our social insurance analyst, and Vera Jackman, another nurse navigator in our breast program, and I are available to her for support/concerns. Addressed her questions and encouraged her to contact me with any additional questions or concerns.She has our contact information. FAMILY HISTORY Breast Cancer: Sister who of breast cancer at age 46 Laterality:Left Is this a recurrence:No Family history of breast cancer:Yes Family history of ovarian cancer: No Personal history or breast cancer:No Method of detection: Mammogram Method of diagnosis: Ultrasound Core Biopsy Identified Barriers: Patient comments or concerns: none identified at this time. She has no concerns regarding insurance, finances or transportation. Oksana states she has Medicare and Medicaid for insurance. documented in this encounter Plan of Treatment Upcoming Encounters Date Type Department Care Team (Latest Contact Info) Description 07/30/2024 8:40 AM EST Hospital [place] [address] Jr Fulton MD [facility] [place] [address] 07/30/2024 8:45 AM EST [place] [address] Jr Fulton MD [facility] [address] [place] [address] 07/30/2024 9:20 AM EST Hospital Encounter Mammography at [place] [address] Jr Fulton MD [facility] [place] [address] 07/30/2024 10:51 AM EST Hospital Encounter Outpatient Surgery Center [address] Jr Fulton MD [facility] [place] [address] 07/30/2024 10:51 AM EST Anesthesia Event Outpatient Surgery [facility] [place] [address] Megan Orona APR[place] [address] 07/30/2024 10:51 AM EST - 07/30/2024 1:11 PM EST Surgery Outpatient [facility] [place] [address] Jr Fulton MD [facility] [place] [address] MASTECTOMY PARTIAL (WRVU 10.13) 08/22/2024 2:00 PM EST Office Visit General Surgery at [place] [address] Cindy Pierce APRN [facility] [place] [address] 08/22/2024 3:00 PM EST Office Visit Hematology and Oncology at [place] [phone] Soo Lyn MD [facility] [place] [address] 08/27/2024 9:30 AM EST Scheduled View Only Radiation Oncology at [address] [phone] [address] [place]es 08/27/2024 10:00 AM EST Office Visit Radiation Oncology at [address] [phone] Paradise Prado MD [facility] [place] [address] 2024 1:00 PM EDT Office Visit Cardiology at [address] [address] Ham Montenegro MD [facility] [place] [address] Scheduled Procedures Name Priority Associated Diagnoses Date/Ti [...] negative documented in this encounter Care Teams Stitch Bonding Machine Tender Relationship Specialty Start Date End Date Gaudenico Scales DO [address] [place] [address] PCP - General Family Medicine 11/28/23 documented as of this encounter
--- OUTSIDE RECORDS SUMMARY | 2024-07-27 12:48 | XMS_ITS | Encounter Summary ---
Author Organization [facility] Address [facility] [place] [address] Care Team Providers Care Front Man Name Role Phone Gaudencio Scales DO Primary Care Provider [phone] Reason for Visit * Reason Comments Follow-up * Consultation (Routine) - Closed Specialty Diagnoses / Procedures Referred By Radha carr Referred To Contact Hematology and Oncology Diagnoses Breast cancer Gaudencio Scales DO [address] [place] [address] [facility] [address] [place] [address] Referral ID Status Reason Start Date Expiration Date Visits Re quested Visits Authorized [id number] Closed 02/16/2024 02/15/2025 1 1 Encounter Details Date Type Department Care Team (Late st Contact Info) Description 03/14/2024 9:30 AM EDT Office Visit H[place]ology [place] [address] Jr Fulton MD [facility] [place] [address] Malignant neoplasm of upper-outer quadrant of left [...] from your doctor or pharmacy? Rarely 02/28/2024 [facility] Utilities [...] in the past 12 m [facility], were you homeless or living in a fci (including now)? No 02/28/2024 [facility] IPV Inpatient [...] Sign Reading Time Taken Comments Blood Pressure 125/63 03/14/2024 9:22 AM EDT Pulse 80 03/14/2024 9:22 AM EDT Temperature 36.3 ??C (97.3 ??F) 03/14/2024 9:22 AM ED T Respiratory Rate 18 03/14/2024 9:22 AM EDT Oxygen Saturation 98% 03/14/2024 9:22 AM EDT Inhaled Oxygen Concentration - - Weight 106.2 kg (234 lb 2.1 oz) 03/14/2024 9:22 AM EDT Height 165.6 cm (5' 5.2) 03/14/2024 9:22 AM EDT Body Mass Index 38.73 03/14/2024 9:22 AM EDT documented in this encounter Progress Notes * Jr Fulton MD - 03/14/2024 9:30 AM EDT Oksana Betancourt is a 58-year-old woman sent for consultation by Randell Scales for newly diagnosed left breast cancer. Oksana was seen on [...] at 1:00 12 cm from the nipple. This enhancing lesion corresponded toa probable enlarged intramammary node seen on mammography on the MLO view. Her right mammogram and MRI are both negative. She has not felt masses in either breast. She has a history of Hodgkin's lymphoma for which she received mantle radiation therapy in [place] when she was 22 years old. She was not treated with any chemotherapy. She had a splenectomy. She has a family history of breast cancer in 1 sister who was less than 50 years old when she developed breast cancer. Oksana has 5 sisters. She has not yet seen genetics counseling; I gave her a brochure and asked my loan secretary to get her a semi-urgent genetic evaluation. Current medications include Seroquel Lasix Toprol Eliquis aspirin Synthroid and Prilosec. No known drug allergies. Past medical history significant for a TAVR in 2021. She had an AR in November 2023 and she had 2 angioplasties and a lesion in the left main coronary artery stented. She has bipolar disorder. Past surgical history: splenectomy, hysterectomy, neck surgery, cholecystectomy. Social history: she is currently not working. She used to work for a [employer] where she made [employer].. Her lejlra-bk-sro Lizeth is here with her. Review of systems: no chest pain or dyspnea. Not depressed or manic now. Rest of ROS is negative. On physical exam she is alert and [...] multiple abdominal scars from her previous surgery. I personally reviewed her mammogram, US and MRI images. Impression: 58-year-old woman with a small, but triple negative, high-grade cancer in her left breast. There is also another area that is concerning on mammography in her left breast with some architectural distortion pretty close to the diagnosed lesion. There is also a second lesion seen in the far lateral left breast which is possibly an intramammary lymph node. I discussed her care with Dr. Lyn. We have decided to recommend a neoadjuvant chemotherapy approach. Will ask radiology to do a stereotactic biopsy of lesion #2 in the left breast at 1:00 12 cm from the nipple so that we have full staging before we start neoadjuvant therapy. She requests this be done locally; I am not sure that can be accomplished. Will get her a genetics appointment and potentially get genetic testing done given her sister developed breast cancer at a very young age. I used my decision-making table and we discussed the advantages and disadvantages of lumpectomy plus radiation therapy versus mastectomy for treatment of breast cancer. We discussed immediate reconstruction. She is not interested in having immediate reconstruction. We discussed the fact that has a high lifetime risk (appx 30%) of developing cancer in the right breast because of the mantle radiation therapy she had at age 22. We discussed doing a prophylactic right mastectomy. At this point she would like to proceed with bilateral mastectomies and no reconstruction. She doesnot want to have a discussion with Plastic Surgery about reconstruction. We will get her going on chemotherapy and then I will see her back when that is completed and we will plan to do bilateral mastectomies without reconstruction and I will do a sentinel node excision and if the intra-mammary node is positive on core bx will wire localized and remove that also. By the time she comes back to see me after neoadjuvant rx she will probably be more than 6 months out from her coronary artery stenting. Dr. Ryder Hargrove communicated to us that he felt it would beokay for her to stop the Eliquis a couple of days before surgery if we were to do surgery in the near future. Since we will not be doing surgery until at least 6 months after her stent, it seems likeit will be safe to stop the Eliquis 3 days before surgery. Copy to Dr. Eboni Mccray and Gaudencio Scales documented in this encounter Plan of Treatment Upcoming Encounters Date Type Department Care Team (Latest Contact Info) Description 07/30/2024 8:40 AM EST Hospital [place] [address] Jr Fulton MD [facility] [place] [address] 07/30/2024 8:45 AM EST [place] [address] Jr Fulton MD [facility] [place] [address] 07/30/2024 9:20 AM EST Hospital Encounter Mammography at [place] [address] Jr Fulton MD [facility] [place] [address] 07/30/2024 10:51 AM EST Hospital Encounter [facility] [place] [address] Jr Fulton MD [facility] [place] [address] 07/30/2024 10:51 AM EST Anesthesia Event [facility] [place] [address] Megan Oron[place] [address] 07/30/2024 10:51 AM EST - 07/30/2024 1:11 PM EST Surgery [facility] [place] [address] Jr Fulton MD [facility] [place] [address] MASTECTOMY PARTIAL (WRVU 10.13) 08/22/2024 2:00 PM EST Office Visit General Surgery at [place] [address] Cindy Pierce APRN [facility] [place] [address] 08/22/2024 3:00 PM EST Office Visit Hematology and Oncology at [address] Soo Lyn MD [facility] [place] [address] 08/27/2024 9:30 AM EST Scheduled View Only Radiation Oncology at [address] [phone] St Josr Whitley 08/27/2024 10:00 AM EST Office Visit Radiation Oncology at [address] [phone] Paradise Prado MD [facility] [place] [address] 2024 1:00 PM EDT Office Visit Cardiology at [address] [place] [address] Ham Montenegro MD [facility] [place] [address] Scheduled Procedures Name Priority Associated Diagnoses Date/Ti [...] negative documented in this encounter Care Teams Front Man Relationship Specialty Start Date End Date Gaudencio Scales DO [address] [place] [address] PCP - General Family Medicine 11/28/23 documented as of this encounter
--- OUTSIDE RECORDS SUMMARY | 2024-07-27 12:48 | XMS_ITS | Encounter Summary ---
Author Organization [facility] Address [facility] [place] [address] Care Team Providers Care Science Instructor Name Role Phone Gaudencio Scales Primary Care Provider [phone] Encounter Details Date Type Department Care Team (Late st Contact Info) Description 03/20/2024 Notes Only Care Management [facility] [place] [address] Charis Cowart, UNEMPLOYMENT BENEFITS CLAIMS TAKER Social History Tobacco Use Types Packs/Day Years [...] your doctor or pharmacy? Rarely 02/28/2024 [facility] Utilities Answer Date Recorded In [...] in a detention (including now)? No 02/28/2024 IPV Inpatient Questions [...] as of this encounter Progress Notes * Charis Cowart, UNEMPLOYMENT BENEFITS CLAIMS TAKER - 03/20/2024 3:16 PM EDT Comprehensive Breast Program Social Work Note I'm able to return Oksana's call and we review her inquiry about available gas cards. She travels from [facility] and does not drive, so she tries to always provide her driver license agent with gas money. She has several appointments coming up with us here in [place] before her chemotherapy is transferred upto [facility] per proximity to her home. I review limited availability of gas cards and breast cancer support foundations that can provide financial assistance with certain household expenses. Oksana reports that she lives in low income housing with no household bills, so she may not derive benefit from a foundation. I encourage her to keep this in mind. Per upcoming three days of travel to [place], I'm able to mail $50 [place] card (#698 1) to her home address today. Completed today: Financial resources Transportation resources NING Oscar (Stephanie) Breast and Gynecology Oncology [facility] documented in this encounter Plan of Treatment Upcoming Encounters Date Type Department Care Team (Latest Contact Info) Description 07/30/2024 8:40 AM EST Hospital Encounter Mammography at [place] [phone] Jr Fulton MD [facility] [address] [address] 07/30/2024 8:45 AM EST Appointment Mammography at [place] [phone] Jr Fulton MD [facility] [address] [address] [place] [address] 07/30/2024 9:20 AM EST Hospital Encounter Mammography at [place] [phone] Jr Fulton MD [facility] [address] [address] [place] [address] 07/30/2024 10:51 AM EST Hospital Encounter Outpatient [facility] [place] [phone] Jr Fulton MD [facility] [address] [address] [place] [address] 07/30/2024 10:51 AM EST Anesthesia Event Outpatient [facility] [place] [address] Megan Orona [place] [address] 07/30/2024 10:51 AM EST - 07/30/2024 1:11 PM EST Surgery [facility] [place] [phone] Jr Fulton MD [facility] [place] [address] MASTECTOMY PARTIAL (WRVU 10.13) 08/22/2024 2:00 PM EST Office Visit General Surgery at [place] [phone] Cindy Pierce APRN [facility] [place] [address] 08/22/2024 3:00 PM EST Office Visit Hematology and Oncology at [place] [phone] Soo Lyn MD [facility] [place] [address] 08/27/2024 9:30 AM EST Scheduled View Only Radiation Oncology at [address] [phone] [address] [place] 08/27/2024 10:00 AM EST Office Visit Radiation Oncology at [address] [phone] Paradise Prado MD [facility] [place] [address] 2024 1:00 PM EDT Office Visit Cardiology at [address] [place] [phone] Ham Montenegro MD [facility] [place] [address] Scheduled Procedures Name Priority Associated Diagnoses Date/Ti [...] on filedocumented in this encounter Care Teams Science Instructor Relationship Specialty Start Date End Date Gaudencio Scales DO [address] [place] [address] PCP - General Family Medicine 11/28/23 documented as of this encounter
--- OUTSIDE RECORDS SUMMARY | 2024-07-27 12:48 | XMS_ITS | Encounter Summary ---
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 Name Role Phone Loyda Gaudencio Antoine VERGARA Primary Care Provider [phone] Reason for Referral * Consultation (STAT) - Closed Specialty Diagnoses / Procedures Referred By Contac t Referred To Contact Hematology and Oncology Diagnoses Malignant neoplasm of upper-outer quadrant of left breast in female, estrogen receptor negative Jaja Lyn MD [facility] [place] [address] [facility] Hem Onc [address] [place] [phone] Referral ID Status Reason Start Date Expiration Date V isits Requested Visits Authorized [id number] Closed Consult, Test & Treat 02/29/2024 02/28/2025 1 1 * Consultation (Routine) - Closed Specialty Diagnoses / Procedures Referred By Contac t Referred To Contact Hematology and Oncology Diagnoses Malignant neoplasm of upper-outer quadrant of left breast in female, estrogen receptor negative Fabien Ramirez PA [facility] [place] [address] [facility] Hem Onc [address] [place] [phone] Referral ID Status Reason Start Date Expiration Date V isits Requested Visits Authorized [id number] Closed Consult, Test & Treat 02/29/2024 02/28/2025 1 1 * Diagnostic Test (Routine) - Closed Specialty Diagnoses / Procedures Referred By Radha carr Referred To Contact Cardiology Diagnoses Malignant neoplasm of upper-outer quadrant of left breast in female, estrogen receptor negative Procedures Echocardiogram Transthoracic Fabien Ramirez PA [facility] [place] [address] Referral ID Status Reason Start Date Expiration Date V isits Requested Visits Authorized [id number] Closed Specialty Service Requested 02/29/2024 08/27/2024 1 1 Reason for Visit * Reason Comments Advice Only * Consultation (Routine) - Closed Specialty Diagnoses / Procedures Referred By Radha carr Referred To Contact Medical Oncology / Hematology and Oncology Diagnoses Breast cancer mri 6.18 Donaldo 6.26 triple neg - 1.1cm Date & time per MD Procedures NEW PATIENT Jr Fulton MD [facility] [place] [address] Jaja Lyn MD [facility] [place] [address] Referral ID Status Reason Start Date Expiration Date Visits Re quested Visits Authorized [id number] Closed 02/28/2024 02/27/2025 1 1 Encounter Details Date Type Department Care Team (Late st Contact Info) Description 02/28/2024 10:00 AM EDT Office Visit H[place]ology [place] [address] Jaja Lyn MD [facility] [place] [address] Malignant neoplasm of upper-outer quadrant of left [...] your doctor or pharmacy? Rarely 02/28/2024 [facility] Utilities Answer Date Recorded In the past 12 months has th e electric, gas, oil, or water company threatened to shut off services in your home? No 02/28/2024 Overall Financial Resource Strain (CARDIA) Answe r Date Recorded How hard is it for you to pa y for the very basics like food, housing, medical care, and heating? Not very hard 02/28/2024 Hunger Vital Sign Answer Date Recorded Within [...] any time in the past 12 m [facility], were you homeless or living in a prison (including now)? No 02/28/2024 DH IPV Inpatient [...] Sign Reading Time Taken Comments Blood Pressure 161/58 02/28/2024 10:02 AM EDT Pulse 78 02/28/2024 10:02 AM EDT Temperature 36.5 ??C (97.7 ??F) 02/28/2024 1 0:02 AM EDT Respiratory Rate 20 02/28/2024 10:0 2 AM EDT Oxygen Saturation 97% 02/28/2024 10: 02 AM EDT Inhaled Oxygen Concentration - - Weight 110.7 kg (244 lb 0.8 oz) 024 10:02 AM EDT Height 165.6 cm (5' 5.2) 02/28/2024 10 :02 AM EDT Body Mass Index 40.37 02/28/2024 10:02 AM EDT documented in this encounter Progress Notes * Jaja Lyn MD - 02/28/2024 10:00 AM EDT Images from the original note were not included. [facility] Patient ID: Oksana Betancourt is a 58 y.o. female referred by Jr Fulton for consultation regarding breast cancer CC: breast cancer DIAGNOSIS: cT1 N0MX left breast cancer, triple negative PATH: ER/PA negative, HER2 unamplified and a CURRENT TX: HPI and ONCOLOGIC HX: Oksana Betancourt is a 58 y.o. 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 She is also on Eliquis. She has a history of triple-vessel CAD status post staged PCI in [place] in March 2022 with CRIS x 1 [...] ductal carcinoma in situ high-grade without comedonecrosis. ER/PA negative HER2 unamplified. Risk Factors: history: A1, boy and girl Age at delivery of first child: 16 OCP use: Yes Age at menarche: 12 Age at menopause: Hysterectomy 20+ years ago (for fibroids) HRT use: Never Family history: Half sister from breast cancer at the age of 46. Prior breast biopsies: no Interval History: Oksana is here for initial consultation. She is accompanied by her acxqtq-bo-lol. She is very emotional and tearful. She was diagnosed with breast cancer on screening mammogram. She did not have any symptoms from her breast cancer. She did not notice any new lump. No nipple changes or discharge. She has had a rough last couple of months due to her NSTEMI. She has no weight loss. Although does have some lack of appetite because of stress. She is very anxious and was started on hydroxyzine however it has not been helping. She has mild shortness of breath with exertion. No orthopnea or PND. She denies any chest pain. She has been on as needed Lasix however she has not had to use it as her weight has been stable. She denies any headaches. No feeling of dizziness or lightheadedness. She has baseline insomnia. Review of Systems 10 point review system is negative other than HPI PAST MEDICAL HISTORY: No past medical history on file. No past surgical history on file. Patient Active Problem List Diagnosis Code NSTEMI (non-ST elevated myocardial infarction) I21.4 Malignant neoplasm of upper-outer quadrant of left breast in female, estrogen receptor negative C50.412, Z17.1 MEDICATIONS: Current Outpatient Medications: atorvastatin (Lipitor) 80 mg tablet, Take 1 [...] date: 11/17/1981 Quit date: 11/17/2021 Years since quittin.2 Smokeless tobacco: Never Substance and Sexual Activity Alcohol use: Not Currently Drug use: Never Sexual activity: Defer Other Topics Concern Not on file Social History Narrative Not on file Social Determinants of Health Financial Resource Strain: Low Risk (02/22/2024) Overall Financial Resource Strain (CARDIA) Difficulty of Paying Living Expenses: Not very hard Food Insecurity: No Food Insecurity (11/29/2023) Hunger Vital Sign Worried About Running Out of Food in the Last Year: Never true Ran Out of Food in the Last Year: Never true Transportation Needs: No Transportation Needs (02/22/2024) PRAPARE - Transportation Lack of Transportation (Medical): No Lack of Transportation (Non-Medical): No Physical Activity: Not on file Intimate Partner Violence: Not At Risk (11/28/2023) IPV Inpatient Questions Prevent Contact with Others: no Feels Threatened by Someone: no Feels Unsafe at Home: no Physical Signs of Abuse Present: no Housing Stability: Low Risk (11/29/2023) Housing Stability Vital Sign Unable to Pay for Housing in the Last Year: No Number of Places Lived in the Last Year: 2 Unstable Housing in the Last Year: No Used to smoke 1 ppd 20+ years Does no drink Does not take any there drugs Lives alone Used to live in [place] Does not work She worked for [employer] FAMILY HISTORY: Family History Problem Relation Age of Onset Breast Cancer Sister of same at age 46 Ovarian Cancer Neg Hx Objective: Physical Exam No data found. There is no height or weight on file to calculate BSA. Wt Readings from Last 3 Encounters: 12/04/23 106.6 kg (235 lb 1.6 oz) ECOG PS: 0 Constitutional: She is oriented to person, place, and time. She appears well- developed and well-nourished. In emotional stress and tearful. HENT: Nose: Nose normal. Mouth/Throat: Oropharynx is clear and moist. Eyes: Conjunctivae are normal. Pupils are equal, round, and reactive to light. No scleral icterus. Neck: Neck supple. No thyromegaly present. Cardiovascular: Normal rate, regular rhythm and intact distal pulses. No murmur heard. Pulmonary/Chest: Effort normal and breath sounds normal. She has no wheezes. Right breast exhibits no inverted nipple, no mass, no nipple discharge and no skin change. Left breast exhibits very palpable mass in the deep planes without distinct edges at 1 o'clock position slightly tender to touch. No axillary lymphadenopathy. Abdominal: Soft. Bowel sounds are normal. She exhibits no distension. There is no tenderness. Thereis no guarding. Musculoskeletal: Normal range of motion. She exhibits no edema or tenderness. Lymphadenopathy: She has no cervical adenopathy. Neurological: She is alert and oriented to person, place, and time. No cranial nerve deficit. Skin: Skin is warm and dry. No [...] Oksana Betancourt is a 58 [facility] past medical history of CKD stage III, bipolar disorder, COPD, hypothyroidism and non-STEMI as well as heart failure is diagnosed with triple negative breast cancer. #1 Breast cancer -- cT1c N0Mx left breast triple negative cancer grade 3. I discussed the significance of ER/PA status as well as triple negative status and its impact on the treatment. I discussed the role of systemic therapy, surgery and radiation therapy. I discussed the rationale for neoadjuvant versus adjuvant chemotherapy. I discussed the survival benefit of pathological complete response and its impact on the determination of adjuvant chemotherapy. I further discussed that further tumor 1 cm a lesser generally surgery in the upfront setting followed by adjuvant chemotherapy is the standard of care. However considering her significant cardiac issues, most recent NSTEMI, stent rethrombo sis and has been going antiplatelet therapy, she may not be a candidate for surgery for at least several months. Moreover her tumor size is barely above 1 cm and doing upfront chemotherapy may not beunreasonable. She does not clearly qualify for keynote 522 regimen as this regimen included patients with node positive disease or T2 disease. Moreover her recent cardiac history also makes her high risk patient for cardiac complications and is not a great candidate for anthracycline or cyclophosphamide either. We can consider neoadjuvant carboplatin and paclitaxel weekly for 3 months or may extended for 4 to 5 months before surgery without anthracycline per keynote 522. Another option is carboplatin AUC of 6+ docetaxel 75 mg/m?? plus pembrolizumab 200 mg IV every 3 weeks for a total of 6 cycles in the neoadjuvant setting. This is per NeoPACT trial in triple negative breast cancer patients that showed a pathological complete response of 59%. I also then discussed the chemotherapy side effect that include but not limited to nausea, vomiting, allergic reaction, anaphylaxis, hair loss, fatigue, cytopenia, transaminitis, JOHN, weight loss, change in the taste of her taste buds. I also discussed the side effects of immunotherapy that includebut not limited to thyroiditis, transaminitis, colitis, allergic reaction, skin rash, vitiligo, carditis and myositis etc. I also discussed the role of Mediport that she will require for chemotherapy. I will obtain echocardiogram. She is to see Dr. Fulton to discuss surgical planning. I will connect with Dr. Barker and also with Dr. Hargrove who performed catheterization. She has not seen colon therapist at [facility]. If plan for upfront surgery, and if her cardiac status is improved, I may consider cyclophosphamide and docetaxel in the adjuvant setting. However if there is a plan for neoadjuvant chemotherapy, I will consider docetaxel plus carboplatin plus pembrolizumab as above. In that case she would want to receive chemotherapy at [facility]. Finally her MRI of the breast is pending and if it does show suspicious lymph node involvement or increasing size of the primary tumor, she would definitely qualify for neoadjuvant chemotherapy plus immunotherapy. #2 Chemotherapy/Clinical trial --to be determined, neoadjuvant versus adjuvant chemotherapy #3 Fatigue --none #4 Menopausal symptoms --none #5 Bone health --no history of osteopenia or osteoporosis #6 Medication management --TBD #7 Genetics--referred Potential Clinical Trials: -N/A Plan Summary and Follow up: -Review her case with Dr. Fulton and her colon therapist to determine the timing of the surgery - If upfront surgery, then I will consider adjuvant docetaxel and cyclophosphamide. Not a candidatefor anthracycline. - If surgery is not optimal due to her cardiac condition, I would consider docetaxel plus carboplatin plus pembrolizumab every 3 weeks for total of 6 cycles - I will send an echocardiogram - Refer to genetic counseling - Refer to [facility] psychiatry due to anxiety and depression - MRI of the breast is pending. - I will arrange a televisit in approximately 3 weeks to review the next steps including surgery versus chemotherapy plan. If no plan for upfront surgery, I will arrange Mediport and chemotherapy. She will prefer to receive chemotherapy at [facility] - Labs to be drawn on 03/06/2024. 85 minutes were spent on date of visit, including non-face to face time. David Lyn MD, MS Lead Developerhollow handle knife assembler Medical Oncology, [facility] Page # [phone] 02/27/24, 2:45 PM documented in this encounter Plan of Treatment Upcoming Encounters Date Type Department Care Team (Latest Contact Info) Description 07/30/2024 8:40 AM EST Hospital Encounter Mammography at [place] [phone] Jr Fulton MD [facility] [place] [address] 07/30/2024 8:45 AM EST Appointment Mammography at [address] Jr Fulton MD [facility] [place] [address] 07/30/2024 9:20 AM EST Hospital Encounter Mammography at [place] [address] Jr Fulton MD [facility] [place] [address] 07/30/2024 10:51 AM EST Hospital Encounter Outpatient Surgery Center [place] [address] Jr Fulton MD [facility] [place] [address] 07/30/2024 10:51 AM EST Anesthesia Event [place]patient [place] [address] Megan Orona [place] [address] 07/30/2024 10:51 AM EST - 07/30/2024 1:11 PM EST Surgery Outpatient Surgery Center [place] [phone] Jr Fulton MD [facility] [address] [address] MASTECTOMY PARTIAL (WRVU 10.13) 08/22/2024 2:00 PM EST Office Visit General Surgery at [place] [phone] Cindy Pierce APRN [facility] [place] [address] 08/22/2024 3:00 PM EST Office Visit Hematology [place] [address] Jaja yLn MD [facility] [place] [address] 08/27/2024 9:30 AM EST Scheduled View Only Radiation Oncology at [address] [phone] Rad Nurse[facility] [place] 08/27/2024 10:00 AM EST Office Visit Radiation Oncology at [address] [phone] Fabien Prado MD [facility] [place] [address] 2024 1:00 PM EDT Office Visit Cardiology at [address] [place] [address] Ham Montenegro MD [facility] [place] [address] Scheduled Procedures Name Priority Associated Diagnoses Date/Ti [...] Priority Associated Diagnoses Order Schedule Referral to [facility] Psychiatry (Cancer Center Patients Only) Outpatient Referral Routine Malignant neoplasm of upper-outer quadrant of left breast in female, estrogen receptor negative Ordered: 02/29/2024 Referral to Genetics Outpatient Referral Routine Malignant neoplasm of upper-outer quadrant of left breast in female, estrogen receptor negative Ordered: 02/29/2024 documented as of this encounter Results * ECHO COMPLETE (03/06/2024 2:30 PM EDT) EF 50 HEARTLAB SYSTEM Anatomical Region Laterality Modality Cardiac Other 03/06/2024 1:17 PM EDT Narrative 03/06/2024 6:00 PM EDT [address] [place] [address] ? Echocardiogram Report Name: MEENU OKSANA Antoine ? Study Date: 03/06/2024 01:17 PMBP: 154/60 mmHg ? Patient Location: 4A : 1965 ? Height: 65.5 in ? Account: [id number] Age: 58 yrs ? Weight: 245 lb Gender: Female ?BSA: 2.2 m2 Ordering Physician: JAJA LYN Referring Physician: FABIEN RAMIREZ Performed By: VICKY Mcdonnell Reason For Study: Malignant neoplasm of upper-outer quadrant of left breast in female Exam Location: [facility]. Interpretation Summary 1. The left ventricle is normal in size. Global systolic function is mildly reduced with LVEF of 50% by Guzman's biplane. There are segmental wall motion abnormalities, predominantly in the septum which may be at least partially due to an intraventricular conduction abnormality (bundle branch block). 2. The right ventricle is normal in size and probably normal in function. PASP estimated at 31 mmHg. 3. Atria mesure normal in size. 4. There is a bioprosthetic visualized in the aortic position, known to be a TAVR valve implanted in 2021 at a different institution. Peak and mean gradients are 15 and 8 mmHg, respectively. There is no visualized regurgitation/leak. 5. Mild mitral regurgitation. 6. In comparison to the prior study from November 2023, global LV systolic function is slightly improved as is the segmental wall motion in the inferior wall, although there are differences in technique (the current study is a non-contrast study). Procedure Complete-[id number]. Satisfactory quality. There is normal sinus rhythm. Left Ventricle Left ventricle is of normal size. Wall thickness is normal. There is no ventricular septal defect. The left ventricular ejection fraction is 50% by Guzman's biplane. Left ventricular systolic function is mildly reduced. Global longitudinal strain is measured at -10.8 %. (GE). There is abnormal septal motion associated with left bundle branch block. There are segmental wall motion abnormalities. Right Ventricle The right ventricle is of normal size. Right ventricular function is probably normal. Left Atrium The left atrium is normal. There is no evidence for a patent foramen ovale. Right Atrium The right atrium is normal. Aortic Valve There is a bioprosthetic valve in the aortic position. The date or year of insertion is 04/2022. The peak gradient across the prosthesis is 15.4 mmHg . The mean gradient across the prosthesis is 8.1 mmHg . The highest gradient is obtained from the right sternal border window using the imaging probe. There appears to be no paravalvular regurgitation. There appears to be no intravalvular regurgitation. Mitral Valve There is posterior mitral annular calcification. There is no mitral stenosis. There is mild mitral regurgitation. Tricuspid Valve The tricuspid valve is structurally normal. There is no tricuspid stenosis. There is trace tricuspid regurgitation. Pulmonic Valve The pulmonic valve is not well visualized. There is no valvular pulmonic stenosis. There is no pulmonic valve regurgitation. Great Arteries The aortic root is not well visualized. The ascending aorta is not well visualized. No abnormalities of the pulmonary artery are identified. Venous Inferior vena cava is normal in size. Inferior vena cava collapse greater than 50% with respiration. Pericardium/Pleural There is no pericardial effusion. Hemodynamics The peak right ventricular systolic pressure is 31.2 mmHg . The estimated right atrial pressure is 3mmHg. Left ventricular diastolic function is abnormal. Left ventricular filling pressure is indeterminate. Ejection Fraction ?2D Measurements ? Volumes EF(MOD-bp): 49.9 % ?IVSd: 1.1 cm ? LAV(MOD- bp) Indexed: 4D EF: 46.0 % ? LVIDd: 4.4 cm ?LVPWd: 1.0 cm ?25.2 ml/m2 ?RWT: 0.47 {ratio} ?RA A4Cs_phl: 17.4 cm2 ? EDV(MOD-bp) Indexed: ?LV mass(C)d: 166.1 grams ?LV mass(C)dI: 76.8 grams/m2 ?56.7 ml/m2 ?LVOT diam: 1.7 cm ?ESV(MOD-bp) Indexed: ?TAPSE_phl: 1.6 cm ?28.4 ml/m2 ? 3D ESV: 84.2 ml ? 3D EDV: 156.2 ml ? 3DEDV Indexed: 72.2 ml/m2 ? 3DESV Indexed: 38.9 ml/m2 ? SV(LVOT): 58.4 ml ? SI(LVOT): 27.0 ml/m2 Doppler ?3D/Strain/TomTec LV V1 VTI: 24.5 cm ?LV GLS (S3P): -10.8 % Ao V2 VTI: 41.2 cm Ao Max: 196.1 cm/sec Ao valve max: 15.4 mmHg Ao valve mean: 8.1 mmHg MV E max contreras: 119.5 cm/sec MV A max contreras: 123.6 cm/sec MV E/A: 0.97 MV dec time: 0.33 sec Lat Peak E' Contreras: 9.6 cm/sec E/e' (lat): 12.4 Med Peak E' Contreras: 3.2 cm/sec E/e' (med): 37.0 E/e' Average: 24.7 NICO(I,D): 1.4 cm2 Dimensionless index Aov: 0.60 TR max contreras: 265.3 cm/sec RVSP(TR): 31.2 mmHg I ?WMSI = 1.31 ? % Normal = 75 ?Segments ??Size X - Cannot ?? 1 - Normal ?? 2 - ? 3 - Akinetic 4 - ?1-2 ? small Interpret ? Hypokinetic ?Dyskinetic ?? 3-5 ? moderate 5 - ? 6-14 ?large Aneurysmal ?15-16 ?? diffuse Procedure Note Gillian Godoy MD - 03/06/[address] [place] [id number] Echocardiogram Report Name: OKSANA BETANCOURT Study Date: 401:17 PMBP: 154/60 mmHg Patient Location: : 1965 Height: 65.5 in Account: [id number] Age: 58 yrs Weight: 245 lb Gender: Female BSA: 2.2 m2 Ordering Physician: JAJA LYN Referring Physician: FABIEN RAMIREZ Performed By: VICKY Mcdonnell Reason For Study: Malignant neoplasm of upper-outer quadrant of leftbreast in female Exam Location: [facility]. Interpretation Summary 1. The left ventricle is normal in size. Global systolic function ismildly reduced with LVEF of 50% by Guzman's biplane. There are segmental wallmotion abnormalities, predominantly in the septum which may be at least partiallydue to an intraventricular conduction abnormality (bundle branch block). 2. The right ventricle is normal in size and probably normal in function.PASP estimated at 31 mmHg. 3. Atria mesure normal in size. 4. There is a bioprosthetic visualized in the aortic position, known to melissa TAVR valve implanted in 2021 at a different institution. Peak and meangradients are 15 and 8 mmHg, respectively. There is no visualized regurgitation/leak. 5. Mild mitral regurgitation. 6. In comparison to the prior study from November 2023, global LV systolicfunction is slightly improved as is the segmental wall motion in the inferiorwall, although there are differences in technique (the current study is anon-contrast study). Procedure Complete-[id number]. Satisfactory quality. There is normal sinus rhythm. Left Ventricle Left ventricle is of normal size. Wall thickness is normal. There is no ventricular septal defect. The left ventricular ejection fraction is 50%by Guzman's biplane. Left ventricular systolic function is mildly reduced.Global longitudinal strain is measured at -10.8 %. (GE). There is abnormal septalmotion associated with left bundle branch block. There are segmental wallmotion abnormalities. Right Ventricle The right ventricle is of normal size. Right ventricular function isprobably normal. Left Atrium The left atrium is normal. There is no evidence for a patent foramenovale. Right Atrium The right atrium is normal. Aortic Valve There is a bioprosthetic valve in the aortic position. The date or yearof insertion is 04/2022. The peak gradient across the prosthesis is 15.4 mmHg. The mean gradient across the prosthesis is 8.1 mmHg . The highest gradient isobtained from the right sternal border window using the imaging probe. Thereappears to be no paravalvular regurgitation. There appears to be no intravalvularregurgitation. Mitral Valve There is posterior mitral annular calcification. There is no mitralstenosis. There is mild mitral regurgitation. Tricuspid Valve The tricuspid valve is structurally normal. There is no tricuspidstenosis. There is trace tricuspid regurgitation. Pulmonic Valve The pulmonic valve is not well visualized. There is no valvular pulmonicstenosis. There is no pulmonic valve regurgitation. Great Arteries The aortic root is not well visualized. The ascending aorta is not well visualized. No abnormalities of the pulmonary artery are identified. Venous Inferior vena cava is normal in size. Inferior vena cava collapse greaterthan 50% with respiration. Pericardium/Pleural There is no pericardial effusion. Hemodynamics The peak right ventricular systolic pressure is 31.2 mmHg . The estimatedright atrial pressure is 3mmHg. Left ventricular diastolic function is abnormal.Left ventricular filling pressure is indeterminate. Ejection Fraction 2D Measurements Volumes EF(MOD-bp): 49.9 % IVSd: 1.1 cm LAV(MOD-bp)Indexed: 4D EF: 46.0 % LVIDd: 4.4 cm LVPWd: 1.0 cm 25.2 ml/m2 RWT: 0.47 {ratio} RA A4Cs_phl: 17.4cm2 EDV(MOD-bp)Indexed: LV mass(C)d: 166.1 grams LV mass(C)dI: 76.8 grams/m2 56.7 ml/m2 LVOT diam: 1.7 cm ESV(MOD-bp)Indexed: TAPSE_phl: 1.6 cm 28.4 ml/m2 3D ESV: 84.2 ml 3D EDV: 156.2ml 3DEDV Indexed:72.2 ml/m2 3DESV Indexed:38.9 ml/m2 SV(LVOT): 58.4ml SI(LVOT): 27.0ml/m2 Doppler 3D/Strain/TomTec LV V1 VTI: 24.5 cm LV GLS (S3P): -10.8 % Ao V2 VTI: 41.2 cm Ao Max: 196.1 cm/sec Ao valve max: 15.4 mmHg Ao valve mean: 8.1 mmHg MV E max contreras: 119.5 cm/sec MV A max contreras: 123.6 cm/sec MV E/A: 0.97 MV dec time: 0.33 sec Lat Peak E' Contreras: 9.6 cm/sec E/e' (lat): 12.4 Med Peak E' Contreras: 3.2 cm/sec E/e' (med): 37.0 E/e' Average: 24.7 NICO(I,D): 1.4 cm2 Dimensionless index Aov: 0.60 TR max contreras: 265.3 cm/sec RVSP(TR): 31.2 mmHg I WMSI = 1.31 % Normal = 75 SegmentsSize X - Cannot 1 - Normal 2 - 3 - Akinetic 4 - 1-2small Interpret Hypokinetic Dyskinetic 3-5moderate 5 - 6-14large Aneurysmal 15-16diffuse Jaja Lyn MD ECHO ORDERABLES * (ABNORMAL) Comprehensive metabolic panel (non-fasting) (03/06/2024 2:19 PM EDT) Glucose 101 65 - 199 mg/dL [facility] Comment:Diabetes: >=200 mg/d L plus symptoms Blood Urea Nitrogen 19(H) 8 - 18 mg/dL [facility] Creatinine 1.66(H) 0.70 - 1.20 mg/dL [facility] Sodium 140 135 - 145 mmol/L [facility] Potassium 4.5 3.5 - 5.0 mmol/L [facility] Comment: Please note: ??Patients with WBC >100,000 may have falsely elevated Potassium levels. ??For accurate Potassium quantification in these patients send serum separator tube (gold top) for subsequent determinations. ??Contact the Clinical Chemistry Laboratory if there are any questions. Chloride 103 98 - 107 mmol/L [facility] Carbon Dioxide 24 22 - 31 mmol/L [facility] Anion Gap 13 5 - 15 mmol/L [facility] Calcium 9.7 8.5 - 10.5 mg/dL [facility] Protein, Total 7.0 6.1 - 8.0 g/dL [facility] Albumin 4.3 3.2 - 5.2 g/dL [facility] Aspartate Aminotransferase 22 0 - 30 unit/L [facility] Alanine Aminotransferase 14 0 - 30 unit/L [facility] Alkaline Phosphatase 145(H) 35 - 105 unit/L [facility] Bilirubin, Total 0.4 0.2 - 1.3 mg/dL [facility] Est Glomerular Filtration Rate 35(L) >=60 mL/min/1. 73 m?? [facility] Comment: This patient's estimated GFR [...] and symptoms in addition to eGFR. Blood 03/06/2024 2:19 PM EDT 03/06/2024 2:31 PM EDT Narrative Resulting Agency Comment Spec In Lab Jaja Lyn MD CHEMISTRY ORDERABLES [facility] [place] [address] documented in this encounter Visit Diagnoses Diagnosis Malignant neoplasm of upper-outer quadrant of left breast in female, estrogen receptor negative- Primary Malignant neoplasm of upper-outer quadrant of left breast in female, estrogen receptor negative documented in this encounter Care Teams Meat Packer Relationship Specialty Start Date End Date Gaudencio Scales DO [address] [place] [address] PCP - General Family Medicine 11/28/23 documented as of this encounter
--- OUTSIDE RECORDS SUMMARY | 2024-07-27 12:48 | XMS_ITS | Encounter Summary ---
Author Organization [facility] Address [facility] [place] [address] Care Team Providers Care Cart Driver Name Role Phone Gaudencio Scales Primary Care Provider [phone] Reason for Referral * Consultation (Routine) - Authorized Specialty Diagnoses / Procedures Referred By Radha carr Referred To Contact Hematology and Oncology Diagnoses Difficulty coping Tatiana Rosario APRN [facility] [place] [address] Maru Matos, PhD [facility] [address] [facility] [place] [address] Referral ID Status Reason Start Date Expiration Date Visits Requested Visits Authorized [id number] Authorized Consult, Test & Treat 03/13/2024 03/13/2025 1 1 Reason for Visit * Consultation (Routine) - Closed Specialty Diagnoses / Procedures Referred By Contac t Referred To Contact Hematology and Oncology Diagnoses Malignant neoplasm of upper-outer quadrant of left breast in female, estrogen receptor negative Paradise Contreras PA [facility] [place] [address] [facility] Hem Onc [address] [place] [address] Referral ID Status Reason Start Date Expiration Date V isits Requested Visits Authorized [id number] Closed Consult, Test & Treat 02/29/2024 02/28/2025 1 1 Encounter Details Date Type Department Care Team (Late st Contact Info) Description 03/13/2024 2:00 PM EDT TH Visit (TeleHealth) Hematology and Oncology at [facility] [place] [phone] Tatiana Rosario APRN [facility] [place] [address] 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 Rarely 02/28/2024 [facility] Utilities Answer Date Recorded In the past 12 months has th e [employer], gas, oil, or water [employer] threatened to shut off services in your [...] in a skilled nursing (including now)? No 02/28/2024 IPV Inpatient Questions [...] Progress Notes * Tatiana Rosario APRN - 03/13/2024 2:00 PM EDT Images from the original note were not included. PSYCHIATRY CONSULTATION IN [facility]: INITIAL EVALUATION REFERRING PROVIDER: BEE Baum [facility] [place] [address] LOCATION: [facility]Y AT [facility] [address] Dept: [phone] Loc: [phone] 03/13/2024 LENGTH OF APPOINTMENT: 60 minutes PATIENT IDENTIFICATION: Oksana Betancourt is a 58 y.o. female who presents at the request of BEE Vail for New diagnosis of breast cancer, h/o depression and anxiety, on multiple medications. Needs medication management of worsening anxiety and depression in light of breast cancer diagnosis. CC: I'm sorry, it's just so much. HPI Oksana Betancourt is a 58 y.o. female with history of bipolar disorder, stating she's had more 'lows' that look like classic depression (sleep changes, anhedonia, avolition, feelings of worthlessness,low energy, low appetite). Her 'highs' are more of an agitated/irritable state, denying excessive energy or risky behavior. She states the last time she's had either hypomania or depression was in her early-mid 40's when she was diagnosed. At that time she was started on lamotrigine and quetiapine (current doses were the same then) and felt overall stable since. She is currently experiencing poorsleep (due to anxiety) and daytime anxiety that is pretty constant. We discuss the normalcy of thisas well as options we have to increase quetiapine both during the day and at night. Current dosing of lamotrigine is 100 mg BID and quetiapine 100 mg HS. She's been on Xanax in the past and inquires about this for anxiety, though review high risk for rebound anxiety and dependence; she's open to increasing quetiapine at this time. PHQ9 Questionnaires Data (Clinic and Pt Entered): Today's value 11/28/2023 PHQ-9: Responses Post 01/17/23 Conversion Little interest or pleasure Not at all Down, depressed, hopeless Not at all PHQ-2 Subscore 0 GAD7 Questionnaires Data: last 4 values No data to display PSYCHIATRIC ROS: Neurovegative symptoms Sleep: usually up now around 5:30 am/6 am. Likes to take meds 8:30/9 pm and be asleep by 10. Beforediagnosis was able to sleep until about 8:30 am. Up quite a bit overnight, anxiety Appetite: poor. I like to eat but I am not hungry now. Now eats the minimum. Energy: low-medium Exercise: walking daily Concentration: fair to poor. Paranoia/Delusions: none Auditory/Visual Hallucinations: none Trista/Hypomania: not since mid-40's Panic Attacks: no but heightened generalized anxiety PTSD symptoms: No OCD symptoms: none PAST PSYCHIATRIC HISTORY: Bipolar-highs and lows-did start with a psychiatrist [...] suicide attempts DEVELOPMENTAL/PSYCHOSOCIAL HISTORY: Currently lives in [place]. Her brother lives next door. Oksana was born in [place] [facility], then [place] Moved back here Aug 2023. 12 siblings altogether (4 are half). [place]. Household composition: self Progeny: Children: 2 Grandchildren: 7; one great-grandchild Quality of relationship with children: supportive. Occupation: She worked for [employer] Leisure pursuits: [employer] Daily pursuits: walking Continued engagement in important activities: nosince your diagnosis have you been able to remain involved in activities that are important to you? Level of education: high school diploma/ged Trauma/Abuse History: denies ACTIVE PROBLEMS: Patient Active Problem List Diagnosis Code NSTEMI (non-ST elevated myocardial infarction) I21.4 Malignant neoplasm of upper-outer quadrant of left breast in female, estrogen receptor negative C50.412, Z17.1 CURRENT MEDICATIONS: Current Outpatient Medications on File Prior to Visit Medication Sig Dispense Refill multivitamin (THERAGRAN) Tablet Take 1 tablet by [...] needed for Chest pain. 90 tablet 12 ipratropium-albuteroL (Duoneb) 0.5 mg-3 mg(2.5 mg base)/3 mL Solution for Nebulization Take 0.5 mg by nebulization every 4 hours. 1 each 4 furosemide (Lasix) 20 mg tablet Take 1 tablet by mouth daily as needed (weight gain, SOB, volume overload). 90 tablet 1 metoprolol succinate XL (Toprol-XL) [...] PO, Once daily No current facility-administered medications on file prior to visit. MEDICAL ROS: System Positive Psychiatric X (as per HPI) Constitutional negative Integumentary negative Eyes/Ears/Sinuses negative Cardiac NSTEMI in November (with hx of cardiac events) Respiratory negative Gastrointestinal negative Genitourinary negative Vascular negative Musculoskeletal negative Neurologic negative Hematologic negative Endocrine negative No Known Allergies LABS: Lab Results Component Value Date WBC 11.0 (H) 03/06/2024 HGB 12.5 03/06/2024 HCT 38.2 03/06/2024 MCV 91.6 03/06/2024 PLATELET 355 03/06/2024 Lab Results Component Value Date NA 140 03/06/2024 K 4.5 03/06/2024 CL 103 03/06/2024 CO2 24 03/06/2024 BUN 19 (H) 03/06/2024 CREATININE 1.66 (H) 03/06/2024 GLUCOSE 101 03/06/2024 GLUCFASTING 153 (H) 11/29/2023 CALCIUM 9.7 03/06/2024 Lab Results Component Value Date ALT 14 03/06/2024 AST 22 03/06/2024 ALKPHOS 145 (H) 03/06/2024 BILITOT 0.4 03/06/2024 Lab Results Component Value Date TSH 0.51 11/28/2023 No results found for: [id number] No results found for: SFOLATE Vitals: No data found. NEURO EXAM: No muscle atrophy, tics, tremors, or abnormal movements.Normal.None. MENTAL STATUS EXAM Manner/Cooperation: Full. Orientation: person, place and time Appearance: Normal. Hygiene: Good. Eye Contact: WNL. Speech: Rate: WNL. Volume: WNL. Quality: WNL. Mood: Anxious. Affect: Appropriate. Labile (tearful at times) Suicidally/homicidally: no suicidal ideation, no homicidal ideation Thought Process: Associations: Intact. Content: Linear Logical Perception: Denied AH/VH Judgement: Good. Insight: Good Recent and remote memory: Not formally tested, appeared intact based on interview Attention/Concentration: Alert PHQ9 Questionnaires Data (Clinic and Pt Entered): last 4 values of depression scores No data to display No data to display GAD7 Questionnaires Data: last 4 values of anxiety scores No data to display Routine Suicide Risk Assessment: Patient denies suicidal and homicidal ideation. Protective factorsinclude: family and community support, engaged in medical and/or mental health care, and future orientation ASSESSMENT: 1. 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 female with history of Bipolar II Disorder currently experiencing anxiety related to recent diagnosis and unconfirmed treatment plan moving forward. Sleep is greatly disrupted and it's high priority to preserve sleep, especially with history of hypomania. We will try an increase of Seroquel to 150 mg with ability to take up to 200 mg if needed. We will also add on Seroquel 12.5 mg-25 mg during the day PRN. I stressed the importance of Oksana getting a EKG as the last one was from November at the time of her infarction (then Qtc was over 500). If continues to be prolonged we will need to think of an alternative to Seroquel that has less cardiac effect. We will meetin three weeks and I did send her directions on the portal to call and set up an EKG and plan for medication dosing. Also reviewed the consultative nature of this clinic and that I am not a long- term provider; will need to coordinate with PCP for prescriptions when we find the most helpful dosing. PLAN: Safety: SI/HI denied; reviewed office and emergency contact info. Crisis line is [phone] Labs: none Medications: Increase Seroquel to 150 mg HS and if ineffective for sleep, may increase further to 200 mg May add PRN dose of Seroquel 12.5 mg-25 mg q AM Need an EKG maddie; may need to consider an alternative HS medication depending on Qtc Additional treatment recommendations: Therapy: referral placed for therapy through [facility] FOLLOW-UP CARE: --Patient will follow up with this business writer in 3 weeks --Patient is aware they can call the office with questions or concerns --Patient is aware of emergency contact procedures Thank you for consulting me in the care of this patient. Please feel free to contact me with questions or to collaborate further on this case. Tatiana Rosario APRN 03/13/24 12:50 PM For mental health emergencies, call 988 from anywhere in the [facility]. State specific information for [place] and [place] crisis services are as follows and should be used to access local resources: Pending Sale To [facility] Mental Health Crises Services [facility] Crisis Line text or call Visit www.TheFriendMail for further information [place] Call your local [facility] crisis line at: [place]: Counseling Service [facility] [phone] [place]: [facility] [phone] [place]: [facility] [phone] [place]: [facility] [phone] [place]: [facility] [phone] [place]: [facility] Counseling and Support [phone] [place]: [facility] [phone] on weekdays 8AM-4:30PM and [phone] on nights and weekends [place]: [facility] [place]: [facility] [phone] [place]: [facility] Services [phone] [place]: [facility], [place]: [facility] [place]: HCRS or Text [place] to [phone] For further information for [place] residents: https://mentalhealth.[place].gov/services/emergency-services/ewg-gsi-byfb National Suicide Prevention Hotline: For patients cared for in the Department of Psychiatry, you can reach your mental health clinician at [phone]. documented in this encounter Plan of Treatment Upcoming Encounters Date Type Department Care Team (Latest Contact Info) Description 07/30/2024 8:40 AM EST Hospital Encounter Mammography at [place] [phone] Jr Fulton MD [facility] [place] [address] 07/30/2024 8:45 AM EST Appointment Mammography at [place] [phone] Jr Fulton MD [facility] [address] [place] [address] 07/30/2024 9:20 AM EST Hospital Encounter Mammography at [place] [phone] Jr Fulton MD [facility] [address] [place] [address] 07/30/2024 10:51 AM EST Hospital Encounter [place] [place] [address] Jr Fulton MD [facility] [address] [place] [address] 07/30/2024 10:51 AM EST Anesthesia Event [facility] [place] [address] Megan Orona APRN [place] [address] 07/30/2024 10:51 AM EST - 07/30/2024 1:11 PM EST Surgery [facility] [place] [address] Jr Fulton MD [facility] [place] [address] MASTECTOMY PARTIAL (WRVU 10.13) 08/22/2024 2:00 PM EST Office Visit [place] [phone] Cindy Pierce APRN [facility] [place] [address] 08/22/2024 3:00 PM EST Office Visit Hematology [place] [phone] Soo Lyn MD [facility] [place] [address] 08/27/2024 9:30 AM EST Scheduled View Only Radiation Oncology at [address] [phone] Rad Nurse, [facility] 08/27/2024 10:00 AM EST Office Visit Radiation Oncology at [address] [phone] Paradise Prado MD [facility] [place] [address] 2024 1:00 PM EDT Office Visit Cardiology at [address] [place] [phone] Ham Montenegro MD [facility] [place] [address] Scheduled Orders Name Type Priority Associated Diagnoses Orde r Schedule EKG 12 Lead ECG Routine retirement current use of antipsychotic medication Expected: 03/13/2024 (Approximate), Expires: 09/12/2024 Scheduled Procedures Name Priority Associated Diagnoses Date/Ti [...] Priority Associated Diagnoses Order Schedule Referral to [facility] Psychiatry (Cancer Center Patients Only) Outpatient Referral Routine Difficulty coping Ordered: 03/13/2024 documented as of this encounter 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
--- OUTSIDE RECORDS SUMMARY | 2024-07-27 12:48 | XMS_ITS | Encounter Summary ---
Author Organization [facility] Address [facility] [place] [address] Care Team Providers Care Corporate Safety Manager Name Role Phone Gaudencio Scales Antoine VERGARA Primary Care Provider [phone] Encounter Details Date Type Department Care Team (Latest Contact Info) Description 03/06/2024 Travel Social History Tobacco Use Types Packs/Day [...] living in a longterm (including now)? No 02/28/2024 IPV Inpatient Questions [...] 8:40 AM EST Hospital [place] [phone] Jr Fulton MD [facility] [address] [place] [address] 07/30/2024 8:45 AM EST [place] [phone] Jr Fulton MD [facility] [address] [place] [address] 07/30/2024 9:20 AM EST Hospital Encounter Mammography at [address] Jr Fulton MD [facility] [address] 07/30/2024 10:51 AM EST Hospital Encounter Outpatient Surgery Center [place] [phone] Jr Fulton MD [facility] [place] [address] 07/30/2024 10:51 AM EST Anesthesia Event Outpatient Surgery [facility] [place] [address] Megan Orona [place] [address] 07/30/2024 10:51 AM EST - 07/30/2024 1:11 PM EST Surgery [place] [address] Jr Fulton MD [facility] [place] [address] MASTECTOMY PARTIAL (WRVU 10.13) 08/22/2024 2:00 PM EST Office Visit General Surgery at [address] Cindy Pierce APRN [facility] [place] [address] 08/22/2024 3:00 PM EST Office Visit Hematology and Oncology at [place] [phone] Soo Lyn MD [facility] [place] [address] 08/27/2024 9:30 AM EST Scheduled View Only Radiation Oncology at [address] [phone] [address] [place] 08/27/2024 10:00 AM EST Office Visit Radiation Oncology at [address] [phone] Paradise Prado MD [facility] [place] [address] 2024 1:00 PM EDT Office Visit Cardiology at [address] [phone] Ham Montenegro MD [facility] [place] [address] Scheduled Procedures Name Priority Associated Diagnoses Date/Ti [...] on filedocumented in this encounter Care Teams Corporate Safety Manager Relationship Specialty Start Date End Date Gaudencio Scales DO [address] [place] [address] PCP - General Family Medicine 11/28/23 documented as of this encounter
--- OUTSIDE RECORDS SUMMARY | 2024-07-27 12:48 | XMS_ITS | Encounter Summary ---
Author Organization [facility] Address [facility] [place] [address] Care Team Providers Care Handicraft Or Hobby Shop Manager Name Role Phone Gaudencio Scales DO Primary Care Provider [phone] Encounter Details Date Type Department Care Team (Late st Contact Info) Description 02/22/2024 External [place] [address] Provider, Scanning Social History Tobacco Use Types Packs/Day Years Used Date Smoking Tobacco: Former Cigarettes 1 40 0 11/17/1981 - 11/17/2021 Smokeless Tobacco: Never Alcohol Use Standard Drinks/Week Comments Not Currently 0 (1 standard drink = 0.6 oz pur e alcohol) [facility] Utilities Answer Date Recorded In [...] in a snf (including now)? No 11/29/2023 IPV Inpatient Questions [...] 8:40 AM EST Hospital En[place] [phone] Jr Fulton MD [facility] [place] [address] 07/30/2024 8:45 AM EST Appointment [place] [phone] Jr Fulton MD [facility] [place] [address] 07/30/2024 9:20 AM EST Hospital Encounter [place] [phone] Jr Fulton MD [facility] [place] [address] [place] [address] 07/30/2024 10:51 AM EST Hospital Encounter Outpatient [place] [phone] Jr Fulton MD [facility] [place] [address] 07/30/2024 10:51 AM EST Anesthesia Event Out[facility] [place] [phone] Megan Orona APRN [place] [address] 07/30/2024 10:51 AM EST - 07/30/2024 1:11 PM EST Surgery Out[facility] [place] [phone] Jr Fulton MD [facility] [place] [address] MASTECTOMY PARTIAL (WRVU 10.13) 08/22/2024 2:00 PM EST Office Visit General Surgery at [place] [phone] Cindy Pierce APRN [facility] [place] [address] 08/22/2024 3:00 PM EST Office Visit Hematology and Oncology at [place] [phone] Soo Lyn MD [facility] [place] [address] 08/27/2024 9:30 AM EST Scheduled View Only Radiation Oncology at [address] [phone] St Josr Whitley 08/27/2024 10:00 AM EST Office Visit Radiation Oncology at [address] [phone] Paradise Prado MD [facility] [place] [address] 2024 1:00 PM EDT Office Visit Cardiology at [address] [place] [address] Ham Montenegro MD [facility] [address] Scheduled Procedures Name Priority Associated Diagnoses Date/Ti [...] Priority Date/Time Associated Diagnosis Comments SURGICAL PATHOLOGY SCAN Routine 02/22/2024 documented in this encounter Results * Scan Doc: Surgical Pathology (02/22/2024) Historical Provider MD MEDIA MGR SCAN EX T ORDR/RSLT documented in this encounter Visit Diagnoses Not on filedocumented in this encounter Care Teams Handicraft Or Hobby Shop Manager Relationship Specialty Start Date End Date Gaudencio Scales DO [address] [place] [address] PCP - General Family Medicine 11/28/23 documented as of this encounter
--- OUTSIDE RECORDS SUMMARY | 2024-07-27 12:48 | XMS_ITS | Encounter Summary ---
Author Organization [facility] Address [facility] [place] [address] Care Team Providers Care Clinical Trial Coordinator Name Role Phone Gaudencio Scales Antoine VERGARA Primary Care Provider [phone] Encounter Details Date Type Department Care Team (Latest Contact Info) Description 02/28/2024 Travel Social History Tobacco Use Types Packs/Day [...] from your doctor or pharmacy? Rarely 02/28/2024 [facility] Utilities Answer Date Recorded In the past [...] any time in the past 12 m [facility], were you homeless or living in a correction (including now)? No 02/28/2024 IPV Inpatient Questions [...] 8:40 AM EST Hospital [place] [phone] Jr Fulton MD [facility] [address] [address] 07/30/2024 8:45 AM EST [place] [phone] Jr Fulton MD [facility] [address] [place] [address] 07/30/2024 9:20 AM EST Hospital Encounter Mammography at [address]1000 Jr Fulton MD [facility] [place] [address] 07/30/2024 10:51 AM EST Hospital Encounter Outpatient [facility] [place] [phone] Jr Fulton MD [facility] [place] [address] 07/30/2024 10:51 AM EST Anesthesia Event Outpatient [facility] [place] [address] Megan Orona [place] [address] 07/30/2024 10:51 AM EST - 07/30/2024 1:11 PM EST Surgery [place] [address] Jr Fulton MD [facility] [place] [address] MASTECTOMY PARTIAL (WRVU 10.13) 08/22/2024 2:00 PM EST Office Visit General Surgery at [address] Cindy Pierce APRN [facility] [place] [address] 08/22/2024 3:00 PM EST Office Visit Hematology and Oncology at [place] [phone] Soo Lyn MD [facility] [place] [address] 08/27/2024 9:30 AM EST Scheduled View Only Radiation Oncology at [address] [phone] Rad NurseSt [place] 08/27/2024 10:00 AM EST Office Visit Radiation Oncology at [address] [phone] Paradise Prado MD [facility] DR [place] [address] 2024 1:00 PM EDT Office Visit Cardiology at [address] [phone] Ham Montenegro MD [facility] [place] [address] Scheduled Procedures Name Priority Associated Diagnoses Date/Ti [...] on filedocumented in this encounter Care Teams Clinical Trial Coordinator Relationship Specialty Start Date End Date Gaudencio Scales DO [address] [place] [address] PCP - General Family Medicine 11/28/23 documented as of this encounter
--- OUTSIDE RECORDS SUMMARY | 2024-07-27 12:48 | XMS_ITS | Encounter Summary ---
Author Organization [facility] Address [facility] [place] [address] Care Team Providers Care Strategic Accounts Manager Name Role Phone Gaudencio Scales Primary Care Provider [phone] Encounter Details Date Type Department Care Team (Late st Contact Info) Description 03/15/2024 [place] [address] Staica Aggarwal PA [facility] [place] [address] Social History Tobacco Use Types Packs/Day Years [...] doctor or pharmacy? Rarely 02/28/2024 [facility] Utilities Answer Date Recorded In the past 12 months has e [employer], gas, oil, or water [employer] threatened to shut off services in your [...] the past 12 m [facility], were you homeless or living in a senior living (including now)? No 02/28/2024 DH IPV Inpatient [...] on file documented as of this encounter H&P Notes * Stacia Aggarwal PA - 03/15/2024 9:35 AM EDT Images from the original note were not included. Interventional Radiology Focused Pre-procedure H&P: PCP: Gaudencio Scales DO Referring Provider: No ref. provider found Planned procedure: Port implant Procedure indication: Left breast cancer, need for long-term durable venous access for systemic chemotherapy IR workflow: Procedure request received through Interventional Radiology eDH order queue. There are no answered order specific questions. History of Present Illness: Per chart review, Oksana Betancourt is a 58 y.o. female with PMH of L breast CA who presents to Interventional Radiology to undergo port implant for systemic chemotherapy. First infusion is not yet scheduled. 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 Remainder of patient's medical and surgical history, allergies, medications, and social/family history obtained below as previously outlined in patient's medical record. IR History: No prior procedures. Imagin11/29/23 Assessment: 58 y.o. female with L breast CA presenting to Interventional Radiology for port implant. Plan Planned procedure: Port implant Labs to be performed day of procedure: No labs Sedation: Moderate (Conscious sedation) Prophylactic antibiotic : None Contrast: No contrast Additional medications for procedure: Lidocaine Planned access site: RIGHT IJ vein Position: Supine Consent: Pending Medications to discontinue (and days held): None Cytopathology presence needed: No Case Urgency:: G3- Elective Outpatient intervention over14 days Labs: Lab Results Component Value Date HGB 12.5 03/06/2024 HCT 38.2 03/06/2024 WBC 11.0 (H) 03/06/2024 PLATELET 355 03/06/2024 INR 1.6 11/28/2023 BUN 19 (H) 03/06/2024 CREATININE 1.66 (H) 03/06/2024 ALBUMIN 4.3 03/06/2024 BILIDIR 0.2 11/28/2023 BILITOT 0.4 03/06/2024 AST 22 03/06/2024 ALT 14 03/06/2024 ALKPHOS 145 (H) 03/06/2024 Allergies: Patient has no known allergies. Medications: Current Outpatient Medications on File Prior to Visit Medication Sig Dispense Refill QUEtiapine (SEROquel) 25 mg tablet Take 0.5 tablets by mouth daily as needed. May take up to one whole tab 30 tablet 0 QUEtiapine (SEROquel) 50 mg [...] facility-administered medications on file prior to visit. Past Medical/Surgical history: Patient Active Problem List Diagnosis Code NSTEMI (non-ST elevated myocardial infarction) I21.4 Malignant neoplasm of upper-outer quadrant of left breast in female, estrogen receptor negative C50.412, Z17.1 No past medical history on file. No past surgical history on file. Social History and Habits: Social History Tobacco Use Smoking status: Former Current packs/day: 0.00 Average packs/day: 1 pack/day for 40.0 years (40.0 ttl pk-yrs) Types: Cigarettes Start date: 11/17/1981 Quit date: 11/17/2021 Years since quittin.3 Smokeless tobacco: Never Substance Use Topics Alcohol use: Not Currently Drug use: Never Significant Family History: Family History Problem Relation Age of Onset Breast Cancer Sister of same at age 46 Ovarian Cancer Neg Hx Pertinent ROS: as per HPI Physical Exam: Pending (to be performed in IR the day of procedure) ASA: Pending (to be assessed in IR the day of procedure) Mallampati class: Pending (to be assessed in IR the day of procedure) 03/15/2024 Stacia Aggarwal PA-C documented in this encounter Plan of Treatment Upcoming Encounters Date Type Department Care Team (Latest Contact Info) Description 07/30/2024 8:40 AM EST Hospital Encounter Mammography at [place] [phone] Jr Fulton MD [facility] [place] [address] 07/30/2024 8:45 AM EST Appointment Mammography at [address]1000 Jr Fulton MD [facility] [address] [place] [address] 07/30/2024 9:20 AM EST Hospital En[place] [address] Jr Fulton MD [facility] [place] [address] 07/30/2024 10:51 AM EST Hospital Encounter Outpatient Surgery [facility] [place] [phone] Jr Fulton MD [facility] [place] [address] 07/30/2024 10:51 AM EST Anesthesia Event [place]patient [place] [address] Megan Oron[place] [address] 07/30/2024 10:51 AM EST - 07/30/2024 1:11 PM EST Surgery [place] [phone] Jr Fulton MD [facility] [place] [address] MASTECTOMY PARTIAL (WRVU 10.13) 08/22/2024 2:00 PM EST Office [place] [phone] Cindy Pierce APRN [facility] [place] [address] 08/22/2024 3:00 PM EST Office Visit Hematology [place] [phone] Soo Lyn MD [facility] [place] [address] 08/27/2024 9:30 AM EST Scheduled View Only Radiation Oncology at [address] [phone] St Josr Whitley 08/27/2024 10:00 AM EST Office Visit Radiation Oncology at [address] [phone] Paradise Prado MD [facility] [place] [address] 2024 1:00 PM EDT Office Visit Cardiology at [address] [place] [address] Ham Montenegro MD [facility] [place] [address] Scheduled Procedures Name Priority Associated Diagnoses Date/Ti [...] on filedocumented in this encounter Care Teams Strategic Accounts Manager Relationship Specialty Start Date End Date Gaudencio Scales DO [address] [place] [address] PCP - General Family Medicine 11/28/23 documented as of this encounter
--- OUTSIDE RECORDS SUMMARY | 2024-07-27 12:48 | XMS_ITS | Encounter Summary ---
Author Organization [facility] Address [facility] [place] [address] Care Team Providers Care Brush Washer Name Role Phone Rachelmaury Gaudencio Antoine VERGARA Primary Care Provider [phone] Reason for Referral * Diagnostic Test (Routine) - Closed Specialty Diagnoses / Procedures Referred By Contac t Referred To Contact Cardiology Diagnoses Malignant neoplasm of upper-outer quadrant of left breast in female, estrogen receptor negative Procedures Echocardiogram Transthoracic Fabien Ramirez PA [facility] [place] [address] Referral ID Status Reason Start Date Expiration Date V isits Requested Visits Authorized [id number] Closed Specialty Service Requested 02/29/2024 08/27/2024 1 1 Reason for Visit * Diagnostic Test (Routine) - Closed Specialty Diagnoses / Procedures Referred By Contac t Referred To Contact Cardiology Diagnoses Malignant neoplasm of upper-outer quadrant of left breast in female, estrogen receptor negative Procedures Echocardiogram Transthoracic Fabien Ramirez PA [facility] [place] [address] Referral ID Status Reason Start Date Expiration Date V isits Requested Visits Authorized [id number] Closed Specialty Service Requested 02/29/2024 08/27/2024 1 1 Encounter Details Date Type Department Care Team (Latest Contact Info) Description 03/06/2024 1:00 PM EDT - 03/06/2024 2:29 PM EDT Hospital Encounter Non-[place] [phone] Jaja Lyn MD [facility] [place] [address] Malignant neoplasm of upper-outer quadrant of left [...] doctor or pharmacy? Rarely 02/28/2024 [facility] Utilities Answer Date Recorded In the [...] time in the past 12 m [facility], were you homeless or living in a longterm (including now)? No 02/28/2024 DH IPV Inpatient [...] 8:40 AM EST Hospital En[place] [address] Jr Fulton MD [facility] [place] [address] 07/30/2024 8:45 AM EST Appointment [place] [phone] Jr Fulton MD [facility] [place] [address] 07/30/2024 9:20 AM EST Hospital Encounter [place] [phone] Jr Fulton MD [facility] [place] [address] [address] 07/30/2024 10:51 AM EST Hospital Encounter [place] [phone] Jr Fulton MD [facility] [place] [address] 07/30/2024 10:51 AM EST Anesthesia Event Outpatient Surgery [facility] [place] [address] Megan Orona APR[place] [address] 07/30/2024 10:51 AM EST - 07/30/2024 1:11 PM EST Surgery [place] [address] Jr Fulton MD [facility] [place] [address] MASTECTOMY PARTIAL (WRVU 10.13) 08/22/2024 2:00 PM EST Office Visit General Surgery at [address]1000 Cindy Pierce APRN [facility] [place] [address] 08/22/2024 3:00 PM EST Office Visit Hematology and Oncology at [address]1000 Jaja Lyn MD [facility] [place] [place] [address] 08/27/2024 9:30 AM EST Scheduled View Only Radiation Oncology at [address] [phone] St Josr Whitley 08/27/2024 10:00 AM EST Office Visit Radiation Oncology at [address] [phone] Fabien Prado MD [facility] [place] [address] 2024 1:00 PM EDT Office Visit Cardiology at [address] [place] [address] Ham Montenegro MD [facility] [place] [address] Scheduled Procedures Name Priority Associated Diagnoses Date/Ti [...] Date/Time Associated Diagnosis Comments ECHO COMPLETE Routine 03/06/2024 2:30 PM EDT Malignant neoplasm of upper-outer quadrant of left breast in female, estrogen receptor negative documented in this encounter Results * ECHO COMPLETE (03/06/2024 2:30 PM EDT) EF 50 [employer] Anatomical Region Laterality Modality Cardiac Other 03/06/2024 1:17 PM EDT Narrative 03/06/2024 6:00 PM EDT [address] [place] [address] ? Echocardiogram Report Name: OKSANA BETANCOURT ? Study Date: 03/06/2024 01:17 PMBP: 154/60 mmHg ? Patient Location: : 1965 ? Height: 65.5 in ? Account: [id number] Age: 58 yrs ? Weight: 245 lb Gender: Female ?BSA: 2.2 m2 Ordering Physician: JAJA LYN Referring Physician: FABIEN RAMIREZ Performed By: VICKY Mcdonnell Reason For Study: Malignant neoplasm of upper-outer quadrant of left breast in female Exam Location: [facility]. Interpretation Summary 1. The left ventricle is [...] current study is a non-contrast study). Procedure Complete-[id number]. Satisfactory quality. There is normal sinus rhythm. [...] Procedure Note Gillian Godoy MD - 03/06/2024 1 [place] [address] Echocardiogram Report Name: OKSANA BETANCOURT Study Date: 401:17 PMBP: 154/60 mmHg Patient Location: : 1965 Height: 65.5 in Account: [id number] Age: 58 yrs Weight: 245 lb Gender: Female BSA: 2.2 m2 Ordering Physician: JAJA LYN Referring Physician: FABIEN RAMIREZ Performed By: VICKY Mcdonnell Reason For Study: Malignant neoplasm of upper-outer quadrant of leftbreast in female Exam Location: [facility]. Interpretation Summary 1. The left ventricle is [...] (the current study is anon-contrast study). Procedure Complete-[id number]. Satisfactory quality. There is normal sinus rhythm. [...] Aneurysmal 15-16diffuse Jaja Lyn MD ECHO ORDERABLES documented in this encounter Visit Diagnoses Diagnosis Malignant neoplasm of upper-outer quadrant of left breast in female, estrogen receptor negative documented in this encounter Care Teams Brush Washer Relationship Specialty Start Date End Date Gaudencio Scales DO [address] [place] [address] PCP - General Family Medicine 11/28/23 documented as of this encounter
--- OUTSIDE RECORDS SUMMARY | 2024-07-27 12:48 | XMS_ITS | Encounter Summary ---
Author Organization [facility] Address [facility] [place] [address] Care Team Providers Care Aquarist Name Role Phone Gaudencio Scales Antoine VERGARA Primary Care Provider [phone] Reason for Visit * Reason Comments Genetic Evaluation * Consultation (STAT) - Closed Specialty Diagnoses / Procedures Referred By Contac t Referred To Contact Hematology and Oncology Diagnoses Malignant neoplasm of upper-outer quadrant of left breast in female, estrogen receptor negative Soo Lyn MD [facility] [place] [address] [facility] [address] [place] [address] Referral ID Status Reason Start Date Expiration Date V isits Requested Visits Authorized [id number] Closed Consult, Test & Treat 02/29/2024 02/28/2025 1 1 Encounter Details Date Type Department Care Team (Late st Contact Info) Description 03/20/2024 12:00 PM EDT TH Visit (TeleHealth) [place]ematology [place] [phone] Loren Srinivasan [facility] DR HEMATOLOG[place] [address] Malignant neoplasm of upper-outer quadrant of left breast in female, estrogen receptor negative; Family history of malignant neoplasm of breast Social History Tobacco Use Types [...] from your doctor or pharmacy? Rarely 02/28/2024 [facility] Utilities Answer Date [...] any time in the past 12 m [facility], were you homeless or living [...] as of this encounter Progress Notes * Loren Srinivasan LGC - 03/20/2024 12:00 PM EDT Oksana Betancourt was seen by JERI Jaramillo in consultation at the request of Soo Lyn to advise regarding possible heritable predisposition to cancer. I spent 35 minutes of this telephone encounter with the patient gathering medical and family history and discussing the likelihood of a genetic predisposition to cancer and the option of genetic testing. This visit was conducted via telephone due to issues with connecting to telehealth-video. Reason for referral/Chief complaint Personal history of breast cancer and family history of breast cancer. Medical history Cancer hx and treatment: Oksana is a pleasant 58yo female with a recent diagnosis of left breast ER/TN-/HER2- IDC (biopsy 02/10/2024 at [facility]). She met with Dr. Lyn on 02/28/2024 for her medical oncology consultation and with Dr. Fulton on 03/14/2024 for her surgical oncology consultation. She is currently planned to undergo neoadjuvant chemotherapy and bilateral mastectomy. Family History of Cancer Problem Relation Age of Onset Skin Cancer Father Cancer Maternal Grandmother suspected, unsure primary Cancer Paternal Grandmother unsure primary Breast Cancer Paternal Half-Sister 46 of same at age 46 Cancer Maternal Uncle suspected, unsure primary Maternal ethnic background is [place]. Paternal ethnic background is unknown. There is no known Ashkenazi Mu-Ism ancestry. Genetic risk assessment Based on personal and/or family history, the likelihood that Oksana would be found to have a mutation in a cancer predisposition gene is high enough to offer the option of genetic testing. Specifically, Oksana meets NCCN criteria for BRCA1/2 gene analysis based on her diagnosis of triple negative breast cancer and family history of breast cancer in her paternal half-sister diagnosed at age 46. Genetic test results may inform Oksana and her family members of their genetic cancer risks and guide cancer screening recommendations. We reviewed the lifetime cancer risks and medical management recommendations associated with mutations in the BRCA1 and BRCA2 genes, including high-risk breast cancer screening with mammography and breast MRIs vs prophylactic bilateral mastectomy, as well as prophylactic removal of the ovaries and f allopian tubes (bilateral salpingo-oophorectomy). We also discussed risks for prostate, male breast, and pancreatic cancer. Panel genetic testing for an inherited predisposition to cancer, including breast cancer, was discussed. The risks, benefits and limitations of panel genetic testing were reviewed, specifically a high rate of identifying a variant of uncertain significance, lack of knowledge of cancer risk for newly identified, moderate risk genes included in the panel and lack of effective screening, as well as cancer risk for other cancers not observed in the family. We reviewed dominant inheritance, meaning that if a mutation is detected there is a 50% chance for Oksana's children and siblings to have also inherited the same gene alteration. We discussed the Genetic Information Nondiscrimination Act (RADHA), a federal law prohibiting discrimination by health insurance companies and most employers based on genetic information. RADHA does not apply to life insurance, disability insurance or long-term care insurance. More information about RADHA may be found at GinaHelp.org. Oksana opted for testing with [employer]' CancerNext-Expanded Panel, a next generation sequencing panel that simultaneously analyzes 71 genes, including BRCA1 and BRCA2, that contribute to increased risk for cancer. Oksana was verbally consented and will be sent consent forms via [employer] to review, sign, and return. Orders for the saliva kit will be placed after signed consents are received.[facility] will send a saliva collection kit with prepaid return envelope directly to Oksana's home to obtain a sample. Instructions for sample collection and return are provided within the kit. We reviewed [facility]'s billing policy. Oksana will be notified by text and/or email once Reese completes their benefits investigation if her estimated out of pocket cost is over $100. At that time, if Oksana is concerned about the estimated test cost she will have the option to contact [facility] directly and either apply for [facility]'s patient assistance program to try and reduce cost of testing based on in come information, cancel testing, or switch to a self-pay option of $250. If Oksana does not respond to Ambry, testing will be billed to her insurance as the default option. Testing will take up to 3 weeks from when the lab receives the sample. Oksana will be contacted viatelephone once her test results become available. At that time, we will discuss with Oksana the implications that this test result may have for her as well as her family members, review any recommended screening guidelines for cancer prevention and early detection, and answer any questions she may have. documented in this encounter Plan of Treatment Upcoming Encounters Date Type Department Care Team (Latest Contact Info) Description 07/30/2024 8:40 AM EST Hospital Encounter Mammography at [place] [phone] Jr Fulton MD [facility] [address] [address] 07/30/2024 8:45 AM EST Appointment Mammography at [place] [phone] Jr Fulton MD [facility] [address] [place] [address] 07/30/2024 9:20 AM EST Hospital [place] [phone] Jr Fulton MD [facility] [place] [address] 07/30/2024 10:51 AM EST Hospital Encounter Out[facility] [place] [phone] Jr Fulton MD [facility] [place] [address] 07/30/2024 10:51 AM EST Anesthesia Event [place] [place] [address] Megan Orona [place] [address] 07/30/2024 10:51 AM EST - 07/30/2024 1:11 PM EST Surgery [place] [address] Jr Fulton MD [facility] [place] [address] MASTECTOMY PARTIAL (WRVU 10.13) 08/22/2024 2:00 PM EST Office [place] [address] Cindy Pierce APRN [facility] [place] [address] 08/22/2024 3:00 PM EST Office Visit Hematology and Oncology at [place] [phone] Soo Lyn MD [facility] [place] [address] 08/27/2024 9:30 AM EST Scheduled View Only Radiation Oncology at [address] [phone] St Josr [place] 08/27/2024 10:00 AM EST Office Visit Radiation Oncology at [address] [phone] Paradise Prado MD [facility] [place] [address] 2024 1:00 PM EDT Office Visit Cardiology at [address] [place] [phone] Ham Montenegro MD [facility] [place] [address] Scheduled Procedures Name Priority Associated Diagnoses Date/Ti [...] Scheduled Referrals Name Type Priority Associated Diagnoses Orde r Schedule Referral to Genetics Outpatient Referral Routine Malignant neoplasm of upper-outer quadrant of left breast in female, estrogen receptor negative Ordered: 02/29/2024 documented as of this encounter Visit Diagnoses Diagnosis Malignant neoplasm of upper-outer quadrant of left breast in female, estrogen receptor negative Family history of malignant neoplasm of breast documented in this encounter Care Teams Aquarist Relationship Specialty Start Date End Date Gaudencio Scales DO [address] [place] [address] [place] [address] PCP - General Family Medicine 11/28/23 documented as of this encounter
--- OUTSIDE RECORDS SUMMARY | 2024-07-27 12:48 | XMS_ITS | Encounter Summary ---
Author Organization [facility] Address [facility] [place] [address] Care Team Providers Care Cardio Tech Name Role Phone Gaudencio Scales Antoine VERGARA Primary Care Provider [phone] Encounter Details Date Type Department Care Team (Latest Contact Info) Description 03/13/2024 Travel Social History Tobacco Use Types Packs/Day [...] from your doctor or pharmacy? Rarely 02/28/2024 [facility] Utilities Answer Date Recorded In the past [...] a group home (including now)? No 02/28/2024 IPV Inpatient [...] 8:40 AM EST Hospital [place] [phone] Jr Fulton MD [facility] [address] [place] [address] 07/30/2024 8:45 AM EST [place] [phone] Jr Fulton MD [facility] [place] [address] 07/30/2024 9:20 AM EST Hospital Encounter Mammography at [address] Jr uFlton MD [facility] [place] [address] 07/30/2024 10:51 AM EST Hospital Encounter Outpatient Surgery Center [place] [phone] Jr Fulton MD [facility] [place] [address] 07/30/2024 10:51 AM EST Anesthesia Event [facility] [address] Megan Oron[place] [address] 07/30/2024 10:51 AM EST - 07/30/2024 1:11 PM EST Surgery [facility] [address] Jr Fulton MD [facility] [place] [address] MASTECTOMY PARTIAL (WRVU 10.13) 08/22/2024 2:00 PM EST Office Visit General Surgery at [address] Cindy Pierce APRN [facility] [place] [address] 08/22/2024 3:00 PM EST Office Visit Hematology [place] [address] Soo Lyn MD [facility] [place] [address] 08/27/2024 9:30 AM EST Scheduled View Only Radiation Oncology at [address] [phone] [address] [place] 08/27/2024 10:00 AM EST Office Visit Radiation Oncology at [address] [phone] Paradise Prado MD [facility] [place] [address] 2024 1:00 PM EDT Office Visit Cardiology at [address] [address] Ham Montenegro MD [facility] [place] [address] Scheduled Procedures Name Priority Associated Diagnoses Date/Ti [...] on filedocumented in this encounter Care Teams Cardio Tech Relationship Specialty Start Date End Date Gaudencio Scales DO [address] [place] [address] PCP - General Family Medicine 11/28/23 documented as of this encounter
--- OUTSIDE RECORDS SUMMARY | 2024-07-27 12:48 | XMS_ITS | Encounter Summary ---
Author Organization [facility] [place] [address] Care Team Providers Care Sap Solution Manager Consultant Name Role Phone Gaudencio Scales DO Primary Care Provider [phone] Reason for Referral * Diagnostic Test (Routine) - Closed Specialty Diagnoses / Procedures Referred By Contac t Referred To Contact Radiology Diagnoses Malignant neoplasm of left breast in female, estrogen receptor negative, unspecified site of breast Procedures MRI Breast wwo Contrast Jr Flanagan MD [facility] [place] [address] [place] [address] Referral ID Status Reason Start Date Expiration Date V isits Requested Visits Authorized [id number] Closed Specialty Service Requested 02/18/2024 08/18/2025 1 1 Reason for Visit * Diagnostic Test (Routine) - Closed Specialty Diagnoses / Procedures Referred By Contac t Referred To Contact Radiology Diagnoses Malignant neoplasm of left breast in female, estrogen receptor negative, unspecified site of breast Procedures MRI Breast wwo Contrast Jr Flanagan MD [facility] [place] [address] [place] [address] Referral ID Status Reason Start Date Expiration Date V isits Requested Visits Authorized [id number] Closed Specialty Service Requested 02/18/2024 08/18/2025 1 1 Encounter Details Date Type Department Care Team (Latest Contact Info) Description 03/06/2024 2:30 PM EDT - 03/06/2024 11:59 PM EDT Hospital Encounter MRI at [facility] [place] [phone] Jr Fulton MD [facility] [address] [place] [address] Malignant neoplasm of left breast in female, estrogen receptor negative, unspecified site of breast Discharge Disposition: Home Social History Tobacco Use [...] from your doctor or pharmacy? Rarely 02/28/2024 [facility] Utilities Answer Date Recorded In the past 12 months has th e [employer], gas, oil, or water Cann[employer] threatened to shut off services in your [...] any time in the past 12 m [facility], were you homeless or living in a retirement (including now)? No 02/28/2024 [facility] IPV Inpatient [...] 8:40 AM EST Hospital Encounter [place] [address] Jr Fulton MD [facility] [address] [place] [address] 07/30/2024 8:45 AM EST Appointment [place] [phone] Jr Fulton MD [facility] [place] [address] 07/30/2024 9:20 AM EST Hospital Encounter [place] [phone] Jr Fulton MD [facility] [place] [address] 07/30/2024 10:51 AM EST Hospital Encounter Outpatient Surgery [facility] [place] [phone] Jr Fulton MD [facility] [address] 07/30/2024 10:51 AM EST Anesthesia Event [place] [address] Megan Orona APR[place] [address] 07/30/2024 10:51 AM EST - 07/30/2024 1:11 PM EST Surgery [facility] [place] [phone] Jr Fulton MD [facility] [place] [address] MASTECTOMY PARTIAL (WRVU 10.13) 08/22/2024 2:00 PM EST Office Visit General Surgery at [place] [phone] Cindy Pierce APRN [facility] DR [place]AL [place] [address] 08/22/2024 3:00 PM EST Office Visit Hematology and Oncology at [place] [phone] Soo Lyn MD [facility] DR MEDICAL [place] [address] 08/27/2024 9:30 AM EST Scheduled View Only Radiation Oncology at [address] [address] [facility] Josr [place] 08/27/2024 10:00 AM EST Office Visit Radiation Oncology at [address] [phone] Paradise Prado MD [facility] [place] [address] 2024 1:00 PM EDT Office Visit Cardiology at [address] [place] [address] Ham Montenegro MD [facility] [place] [address] Scheduled Procedures Name Priority Associated Diagnoses Date/Ti [...] Procedure Name Priority Date/Time Associated Diagnosis Comments MRI BREAST WWO CONTRAST BILAT Routine 03/06/2024 4:10 PM EDT Malignant neoplasm of left breast in female, estrogen receptor negative, unspecified site of breast documented in this encounter Results * MRI Breast wwo Contrast Bilat (03/06/2024 4:10 PM EDT) WORKSTATION ID [id number] 1 DH RAD Anatomical Region Laterality Modality Breast Bilateral [...] who have questions please contact the health toddler caregiver that requested your imaging first. ? Electronically signed by: Ana Weber MD, [facility] ([phone]), at 03/07/2024 8:09 AM Narrative 03/07/2024 8:09 AM EDT EXAMINATION: MRI [...] contrast enhancement curve analysis was performed, using [employer] software. COMPARISON STUDIES: Compared and/or correlated with [...] chest wall or skin. Jr Fulton MD IMG MRI ORDERABLES documented in this encounter Visit Diagnoses Diagnosis Malignant neoplasm of left breast in female, estrogen receptor negative, unspecified site of breast documented in this encounter Administered Medications Inactive Administered Medications - up to 3 most recent administrations Medication Order MAR Action Action Date Dose Rate Site gadoterate meglumine (Dotarem) (0.5 mMol/mL) injection solution 0-100 mL 0-100 mL, Intravenous, ONCE PRN, 1 dose, Starting on 03/06/24 at 1629, Until 03/06/24 at 1629, Per Protocol, Radiology Contrast, Routine Given 03/06/2024 4:29 PM EDT 21 mLs documented in this encounter Care Teams Sap Solution Manager Consultant Relationship Specialty Start Date End Date Gaudencio Scales DO [address] [place] [address] PCP - General Family Medicine 11/28/23 documented as of this encounter
--- OUTSIDE RECORDS SUMMARY | 2024-07-27 12:48 | XMS_ITS | Encounter Summary ---
Author Organization [facility] Address [facility] [place] [address] Care Team Providers Care Top Waddy Name Role Phone Gaudencio Scales Antoine VERGARA Primary Care Provider [phone] Encounter Details Date Type Department Care Team (Late st Contact Info) Description 03/14/2024 Patient Outreach Hematology and Oncology at [facility], [place] [address] Josephine Bailon RN Social History Tobacco Use Types Packs/Day [...] your doctor or pharmacy? Rarely 02/28/2024 [facility] Utilities Answer Date Recorded In [...] any time in the past 12 m [facility], were you homeless or living in a nursing home (including now)? No 02/28/2024 IPV Inpatient [...] as of this encounter Progress Notes * Josephine Bailon RN - 03/14/2024 6:09 AM EDT Comprehensive Breast Program (CBP) Nurse Navigator Note Oksana Betancourt is a 58 y.o. female with ER-/WI-/Her-2 negative left breast cancer. I met with thepatient and her sister in law, Lizeth, after her surgical oncology consultation. Her brother and SILlive next door to Oksana and provide support. Oksana plans for neoadjuvant chemotherapy. She understands she will likely begin at [facility] and then transfer her care to [facility], where she lives. They asked good questions about timing of her chemotherapy start. She understands Dr. Lyn's shank skinner will schedule port placement and chemotherapy teaching session with one of our pharmacists at [facility]. She has his contact number. She recently started to use the [employer] portal and is starting to get used to it. Oksana states she will likely opt for b/l mastectomy without reconstruction and understands she will meet with Dr. Fulton again towards the end of her chemotherapy. Plan for biopsy of left breast lesion #2 ([address] Dr[address] Fulton mammography will call her). She wanted to have this done in [facility] and un derstands we would have her come here for this biopsy (otherwise this would need to be at [facility]). She understands we will always attempt to coordinate her post operative appts. related to her travel distance from [facility]. Oksana states she does not have much money and would welcome any financial assistance. SPECIFIC TEACHIN. Breast Cancer Treatment Handbook (Ariadne Frost, 2021) was sent via mail. 2. She understands she will meet with her medical oncologist (Dr. Lyn) on 03/28 via telehealth. After surgery CBP will arrange a follow up appt. with Dr. Lyn (2-3 weeks post surgery) as well asa follow up appt. with Dr. Fulton post operatively. 3. Contact phone numbers for questions or concerns during chemotherapy (at [facility]) and in the immediate post-operative period provided. 4. Comprehensive Breast Program Binder provided. 5. Post Breast Surgery Exercises handout created by physical therapists at [facility] (not reviewed). Sheunderstands we will send a referral to PT after mastectomy(ies). 6. Breast Cancer Treatment Process care map (neoadjuvant chemotherapy) provided and reviewed. 7. Contact information for our oncology triage and general surgery clinic nurses provided and the doctor compensation manager system explained. 8. Discussed hair loss during chemotherapy and resources for wigs, scarfs, hats. She is not interested in cold caps or wigs. She has purchased a few head coverings that she plans to use. Twenty minutes was spent in education and providing support. She verbalized understanding of the plan of care and states all her questions were answered. Oksana has our contact information. Pre-op MRI: Yes Abnormalities detected Ipsilateral (other than index lesion) Referral to familial counseling: Yes (previously placed by Dr. Lyn). Dr. Fulton would like her to meet with one of our genetic counselor in the near future. Oksana has their contact number and will call to schedule. 02/28/2024 Social Determinants of Health (SDoH v3) Financial Strain Not very hard Food worry Never true Food inability Patient declined Unable to pay mortgage/rent No Times moved? 0 Homeless/Lived in nursing home? No Quality Solicitors, gas, oil, or water company threatened to shut off services No Feel isolated Hardly ever Medical transport needs No Non-medical transport needs No How often need help with reading information from doctor/pharmacy? Rarely Referrals made today Social work Referral sent to our [facility] oncology social work as Oksana would like to explore options for financial help/assistance. JOSEPHINE BAILON RN documented in this encounter Plan of Treatment Upcoming Encounters Date Type Department Care Team (Latest Contact Info) Description 07/30/2024 8:40 AM EST Hospital Encounter Mammography at [place] [phone] Jr Fulton MD [facility] [place] [address] 07/30/2024 8:45 AM EST [place] [phone] Jr Fulton MD [facility] [address] [address] 07/30/2024 9:20 AM EST Hospital [place] [phone] Jr Fulton MD [facility] [address] [place] [address] 07/30/2024 10:51 AM EST Hospital Encounter Outpatient Surgery Center [place] [phone] Jr Fulton MD [facility] [place] [address] 07/30/2024 10:51 AM EST Anesthesia Event Outpatient [place] [address] Megan Orona [place] [address] 07/30/2024 10:51 AM EST - 07/30/2024 1:11 PM EST Surgery [facility] [place] [phone] Jr Fulton MD [facility] [place] [address] MASTECTOMY PARTIAL (WRVU 10.13) 08/22/2024 2:00 PM EST Office Visit General Surgery at [address] Cindy Pierce APRN [facility] [place] [address] 08/22/2024 3:00 PM EST Office Visit Hematology and Oncology at [place] [phone] Soo Lyn MD [facility] [place] [address] 08/27/2024 9:30 AM EST Scheduled View Only Radiation Oncology at [address] [phone] St Josr Whitley 08/27/2024 10:00 AM EST Office Visit Radiation Oncology at [address] [phone] Paradise Prado MD [facility] [place] [address] 2024 1:00 PM EDT Office Visit Cardiology at [address] [place] [phone] Ham Montenegro MD [facility] [place] [address] Scheduled Procedures Name Priority Associated Diagnoses Date/Ti [...] on filedocumented in this encounter Care Teams Top Waddy Relationship Specialty Start Date End Date Gaudencio Scales DO [address] [place] [address] PCP - General Family Medicine 11/28/23 documented as of this encounter
--- OUTSIDE RECORDS SUMMARY | 2024-07-27 12:48 | XMS_ITS | Encounter Summary ---
Author Organization [facility] Address [facility] [place] [address] Care Team Providers Care Nail Cutter Name Role Phone Loyda Gaudecnio Antoine VERGARA Primary Care Provider [phone] Reason for Referral * Diagnostic Test (Routine) - Closed Specialty Diagnoses / Procedures Referred By Radha t Referred To Contact Radiology Diagnoses Malignant neoplasm of upper-outer quadrant of left breast in female, estrogen receptor negative Procedures IR Mediport Soo Rollins MD [facility] [place] [address] [facility] [place] [address] Referral ID Status Reason Start Date Expiration Date V isits Requested Visits Authorized [id number] Closed Specialty Service Requested 03/14/2024 09/13/2025 1 1 Reason for Visit * Diagnostic Test (Routine) - Closed Specialty Diagnoses / Procedures Referred By Contbeatris t Referred To Contact Radiology Diagnoses Malignant neoplasm of upper-outer quadrant of left breast in female, estrogen receptor negative Procedures IR Mediport Soo Rollins MD [facility] [address] [facility] [place] [address] Referral ID Status Reason Start Date Expiration Date V isits Requested Visits Authorized [id number] Closed Specialty Service Requested 03/14/2024 09/13/2025 1 1 Encounter Details Date Type Department Care Team (Latest Contact Info) Description 03/23/2024 12:25 PM EDT - 03/23/2024 11:59 PM EDT Hospital Encounter Radiology at [facility] [place] [address] Soo Lyn MD [facility] [place] [address] Malignant neoplasm of upper-outer quadrant of left [...] from your doctor or pharmacy? Rarely 02/28/2024 [facility] Utilities Answer Date Recorded [...] any time in the past 12 m [place], were you homeless or living in a alf (including now)? No 02/28/2024 [facility] IPV Inpatient [...] Sign Reading Time Taken Comments Blood Pressure 165/43 03/23/2024 3:25 PM EDT Pulse 58 03/23/2024 2:50 PM EDT Temperature 36.6 ??C (97.8 ??F) 03/23/2024 3:00 PM ED T Respiratory Rate 16 03/23/2024 3:25 PM EDT Oxygen Saturation 98% 03/23/2024 3:25 PM EDT Inhaled Oxygen Concentration - - Weight - - Height - - Body Mass Index - - documented in this encounter Discharge Instructions * Discharge Instructions* Grisel Christopher RN - 03/23/2024 2:19 PM EDT Images from the original note were not included. [facility] Department of Vascular and Interventional Radiology Discharge Instructions for your Chest Port You have received a ???Power Port?? , which provides access for infusions and blood draws. What makes this a ???Power Port?? is the unique ability to ???power inject?? contrast (intravenous dye) through the port when getting a CT scan, which produces superior images (pictures). Patients who don???t have these special ports need to have an IV started if they need dye injected for their CT scan. Your port is printed with the letters ???CT?? which can be detected by x- ray to identify it as a ???Power Port?? . You will be provided with an ID card stating the laser operator and type of port you have. Please carry this with you in a safe place. Bandage: There is a sterile dressing over the port site consisting of small gauze with a clear dressing (Tegaderm or [id number] ). This dressing should be left in place for 48 hours. If the clear dressing becomes loose you should place tape over the edges to secure it in place. Note: If you have steri-strips beneath your dressing, simply allow them to fall off. Do not peel them off. There may be Bantam-bravo (skin glue) also, allow this to flake off. Pain: Apply ice bag to site (s) at 30 minute intervals (30 minutes on and 30 minutes off) for 24 hours?? . May use as needed for pain and/or bruising after 24 hours. Bathing: Do not take a shower until 48 hours after your port is placed; after this time you may shower with the dressing in place, then remove it and pat your skin dry. After 48 hours, we recommend that you cover the area with THE AQUA GUARD PROVIDED for 1 week while showering, facing away from theshower stream. You may use a bandaid to cover the site after the 48 hours are up if there is any drainage. No tub baths, whirlpools or swimming for one week following port placement. Flushing the mediport: If your port has not been used, it must be flushed every 30 days. What to expect when your port is accessed: 1. You may feel tenderness the first few times it is accessed but generally this subsides over time. Ask your healthcare provider to use a local anesthetic on the site if discomfort is a problem for you. You may ask for a prescription for a topical cream (EMLA) from your clinician; you may apply athome prior to your appointments, to help numb the skin over your port. 2. The clinician should be wearing sterile gloves and a mask during the access procedure. Anyone inthe room with you should also have a mask on. 3. The skin over and 2 inches around the port should be cleaned with a disinfectant 4. Tell the clinician if you would like the skin numbed (lidocaine) before the access needle is placed. 5. Unless you are unable to take heparin (blood thinner), the port should be injected with a heparin solution before deaccess (at end of each treatment or blood draw). When to call your healthcare provider: If you notice bleeding from the puncture site in your neck, or from the port incision on your chest, you should apply firm pressure over the site for 10-15 minutes, keeping the site covered. Call if you are still bleeding after 10-15 minutes. If you develop pain, redness, drainage or swelling at or around the port site, or the puncture sitein the neck If you develop fever (elevation of more than 2 degrees or greater than 101F) and/or shaking chills When to call the Interventional Radiology Department: Please call with any questions or concerns. If it is during regular office hours, please call [phone]. If it is after regular office hours, or on weekends or holidays, please call [phone] and ask to speak to the Pharmacy Intern solutions sales executive for Interventional Radiology. XXX You have received medication during your procedure to help lessen anxiety and keep you comfortable. These medications affect judgement and reaction time. We recommend that you do not drive, operate equipment, sign any important documents, or smoke unattended for 24 hours following your procedure. Because of the sedation, be careful on stairs, as you may be unsteady on your feet. You may resume your regular diet as tolerated. IV site -- slight redness, or tenderness is normal, you can use a warm compress. If tenderness and redness increases or foul drainage occurs, please contact your MRyan Rhoades. Revised 07/05/19 documented in this encounter Medications at Time [...] as of this encounter Progress Notes * Grisel Christopher RN - 03/23/2024 2:46 PM EDT ANGIO NURSING DATABASE Name: Oksana Betancourt Date of : 1965 AGE: 58 y.o. [address]: [address] [place] [address] Phone: [phone] (home) Mobile: Telephone Information: Referring Provider: Soo Lyn REASON FOR VISIT: Order Questions Answers Where will study be performed? [facility] Radiology [120] To be scheduled Next available after expected date Is the patient on anticoagulant / antiplatelet therapy ? Clopidogrel,Aspirin Reason for exam and clinical history: Breast cancer, plan for chemotherapy Planned procedure: Port implant Labs to be performed day of procedure: No labs Sedation: Moderate (Conscious sedation) Prophylactic antibiotic : None Contrast: No contrast Additional medications for procedure: Lidocaine Planned access site: RIGHT IJ vein Position: Supine Consent: Pending Medications to discontinue (and days held): None Case Urgency:: G3- Elective Outpatient intervention over14 days No Known Allergies Pertinent PMH: Patient Active Problem List Diagnosis Code NSTEMI (non-ST elevated myocardial infarction) I21.4 Malignant neoplasm of upper-outer quadrant of left breast in female, estrogen receptor negative C50.412, Z17.1 Date/Procedure Meds Given/Comments 03/23/24 Mediport placement Fentanyl 225 mcg Versed 4.5 mg Sensitive to lidocaine administration, otherwise tolerated well 1355 to procedure room 6 via stretcher. Onto table supine. All monitors, O2, safety strap in place.Meds per protocol. Laboratory Results: Lab Results Component Value Date INR 1.6 11/28/2023 Lab Results Component Value Date CREATININE 1.66 (H) 03/06/2024 Lab Results Component Value Date K 4.5 03/06/2024 Lab Results Component Value Date PLATELET 355 03/06/2024 documented in this encounter H&P Notes * Cely Schmitt PA - 03/23/2024 1:11 PM EDT Interventional Radiology Interval H&P: Procedure: Mediport implant The patient's history and physical exam have been reviewed and completed. There has been no interval change from that of the pre-operative history and physical exam done within the last 30 days. Physical Exam: General: Awake, alert, oriented Cardiovascular: Regular rhythm, Normal rate Pulmonary: Breath sounds clear to auscultation Meds: Current medications reviewed. No medications held. Labs: No new relevant labs. The planned procedure (and sedation plan if appropriate), its benefits and risks, and alternatives were discussed with the patient. The patient consented to the procedure. The indications for the procedure are still present. Pre-sedation Assessment: Sedation Plan: moderate (conscious sedation) ASA: 2: Patient with mild systemic disease Mallampati: II: tonsillar pillars are blocked by the tongue Confirm NPO status: Yes History of anesthetic complications: No Current medications reviewed: Yes Allergies reviewed: Yes Source Note - Stacia Aggarwal PA - 03/15/2024 9:35 AM [...] 8:40 AM EST Hospital [place] [address] Jr Fulton MD [facility] [address] [place] [address] 07/30/2024 8:45 AM EST [place] [address] Jr Fulton MD [facility] [address] [address] 07/30/2024 9:20 AM EST Hospital Encounter Mammography at [place] [phone] Jr Fulton MD [facility] [place] [address] 07/30/2024 10:51 AM EST Hospital Encounter Outpatient Surgery [facility] [place] [phone] Jr Fulton MD [facility] [place] [address] 07/30/2024 10:51 AM EST Anesthesia Event [facility] [place] [phone] Megan Orona [place] [address] 07/30/2024 10:51 AM EST - 07/30/2024 1:11 PM EST Surgery Out[facility] [place] [phone] Jr Fulton MD [facility] [place] [address] MASTECTOMY PARTIAL (WRVU 10.13) 08/22/2024 2:00 PM EST Office Visit General Surgery at [place] [phone] Cindy Pierce APRN [facility] [place] [address] 08/22/2024 3:00 PM EST Office Visit Hematology [place] [phone] Soo Lyn MD [facility] [place] [address] 08/27/2024 9:30 AM EST Scheduled View Only Radiation Oncology at [address] [phone] [address] Josr [facility] 08/27/2024 10:00 AM EST Office Visit Radiation Oncology at [address] [phone] Paradise Prado MD [facility] [place] [address] 2024 1:00 PM EDT Office Visit Cardiology at [address] [place] [address] Ham Montenegro MD [facility] [place] [address] Scheduled Procedures Name Priority Associated Diagnoses Date/Ti [...] Procedure Name Priority Date/Time Associated Diagnosis Comments IR MEDIPORT PLACEMENT Routine 03/23/2024 2:55 PM EDT Malignant neoplasm of upper-outer quadrant of left breast in female, estrogen receptor negative documented in this encounter Results * IR Mediport Placement (03/23/2024 2:55 PM EDT) Anatomical Region Laterality Modality X-Ray Angiograph y Narrative 03/23/2024 3:31 PM EDT Interventional Radiology Procedure Note Procedure: Venous chest port implant Indication: Left breast cancer, durable residential central venous access for chemotherapy Procedure summary: [...] Alexandro Moser MD 03/23/2024 Soo Lyn MD [facility] IR ORDERABLES documented in this encounter Visit Diagnoses Diagnosis Malignant neoplasm of upper-outer quadrant of left breast in female, estrogen receptor negative documented in this encounter Administered Medications Inactive Administered Medications - up to 3 most recent administrations Medication Order MAR Action Action Date Dose Rate Site fentaNYL (pf) (50 mcg/mL) multi-dose injection 25-50 mcg 25-50 mcg, Intravenous, EVERY 3 MIN PRN, Starting on Tue03/23/24 at 1257, Until Tue03/23/24 at 1544, Pain, per unit protocol, For use in Interventional Radiology (IR) only for procedural sedation with direct provider supervision and verbal order. - Start dose: 50 mcg (reduce dose to 25 mcg if history of sedation sensitivity). - Titration dose: 25-50 mcg IV, (based on patient response) every 3 minutes PRN to maintain procedural pain less than 2 per Pain Scale. Maximum dose: 50 mcg/dose, 250 mcg/hour, Angio/IR (Intra-Procedure), Routine Given 03/23/2024 2:37 PM EDT 25 mcg Given 03/23/2024 2:33 PM EDT 25 mcg Given 03/23/2024 2:29 PM EDT 50 mcg lidocaine (Xylocaine) 1% (10 mg/mL) injection 10 mg 10 mg, Subcutaneous, ONCE, 1 dose, On Tue03/23/24 at 1315, For use in Interventional Radiology (IR) only for procedure with direct provider supervision and verbal order., Angio/IR (Intra-Procedure), Routine Given 03/23/2024 2:26 PM EDT 10 mg lidocaine-EPINEPHrine (1% - 1:100,000) injection 20 mL 20 mL, Intradermal, ONCE, 1 dose, On Tue03/23/24 at 1315, For use in Interventional Radiology (IR) only for procedure with direct provider supervision and verbal order. *This order is NOT a Venous Ablation Order / Dose., Angio/IR (Intra-Procedure), Routine Given 03/23/2024 2:32 PM EDT 20 mLs midazolam (pf) (Versed) (1 mg/mL) multi-dose injection 0.5-1 mg 0.5-1 mg, Intravenous, EVERY 3 MIN PRN, Starting on Tue03/23/24 at 1257, Until Tue03/23/24 at 1544, Sedation, For use in Interventional Radiology (IR) only for procedural sedation with direct provider supervision and verbal order. - Start dose: 1 mg (Reduce dose to 0.5 mg if history of sedation sensitivity). - Titration dose: 0.5 mg - 1 mg (based on patient response) every 3 minutes PRN to obtain RASS score of -3. Maximum dose: 1 mg/dose, 5 mg/hour., Angio/IR (Intra-Procedure), Routine Given 03/23/2024 2:35 PM EDT 0.5 mg Given 03/23/2024 2:30 PM EDT 1 mg Given 03/23/2024 2:23 PM EDT 1 mg sodium chloride 0.9 % (flush) (BD PosiFlush Normal Saline 0.9) flush 5 mL 5 mL, Intravenous, 2 TIMES DAILY, First dose on Tue03/23/24 at 1315, Until Discontinued, Angio/IR (Day of Procedure), Routine Given 03/23/2024 2:38 PM EDT 5 mLs documented in this encounter Care Teams Nail Cutter Relationship Specialty Start Date End Date Gaudencio Scales DO [address] [place] [address] PCP - General Family Medicine 11/28/23 documented as of this encounter
--- OUTSIDE RECORDS SUMMARY | 2024-07-27 12:48 | XMS_ITS | Encounter Summary ---
Author Organization [facility] Address [facility] [place] [address] Care Team Providers Care Pigment Weigher Name Role Phone Gaudencio Scales Antoine VERGARA Primary Care Provider [phone] Encounter Details Date Type Department Care Team (Latest Contact Info) Description 03/21/2024 Travel Social History Tobacco Use Types Packs/Day [...] 8:40 AM EST Hospital Encounter [place] [phone] Jr Fulton MD [facility] [address] [address] 07/30/2024 8:45 AM EST Appointment [place] [phone] Jr Fulton MD [facility] [place] [address] 07/30/2024 9:20 AM EST Hospital Encounter Mammography at [address]1000 Jr Fulton MD [facility] [place] [address] 07/30/2024 10:51 AM EST Hospital Encounter Outpatient Surgery Center [place] [phone] Jr Fulton MD [facility] [place] [address] 07/30/2024 10:51 AM EST Anesthesia Event Outpatient Surgery Center [address]1000 Megan Orona [place] [address] 07/30/2024 10:51 AM EST - 07/30/2024 1:11 PM EST Surgery Outpatient Surgery Center [address]1000 Jr Fulton MD [facility] [place] [address] MASTECTOMY PARTIAL (WRVU 10.13) 08/22/2024 2:00 PM EST Office Visit General Surgery at [address] Cindy Pierce APRN [facility] [place] [address] 08/22/2024 3:00 PM EST Office Visit Hematology [place] [address] Soo Lyn MD [facility] [place] [address] 08/27/2024 9:30 AM EST Scheduled View Only Radiation Oncology at [address] [phone] [address] NurseSt Ovalles 08/27/2024 10:00 AM EST Office Visit Radiation Oncology at [address] [phone] Paradise Prado MD [facility] [place] [address] 2024 1:00 PM EDT Office Visit Cardiology at [address] [address] Ham Montenegro MD [facility] [place] [address] Scheduled Procedures Name Priority Associated Diagnoses Date/Ti [...] on filedocumented in this encounter Care Teams Pigment Weigher Relationship Specialty Start Date End Date Gaudencio Scales DO [address] [place] [address] PCP - General Family Medicine 11/28/23 documented as of this encounter
--- OUTSIDE RECORDS SUMMARY | 2024-07-27 12:48 | XMS_ITS | Encounter Summary ---
Author Organization [facility] [place] [address] Care Team Providers Care Drier Take Off Tender Name Role Phone Gaudencio Scales Antoine VERGARA Primary Care Provider [phone] Encounter Details Date Type Department Care Team (Latest Contact Info) Description 03/06/2024 2:35 PM EDT Laboratory Appointment Lab [address] [place] [address] Malignant neoplasm of upper-outer quadrant [...] doctor or pharmacy? Rarely 02/28/2024 [facility] Utilities Answer Date Recorded In the past 12 months has [employer], gas, oil, or water [email or web address] threatened to shut off services in your [...] 8:40 AM EST Hospital [place] [address] Jr Fulton MD [facility] [place] [address] 07/30/2024 8:45 AM EST [place] [phone] Jr Fulton MD [facility] [place] [address] 07/30/2024 9:20 AM EST Hospital [place] [address] Jr Fulton MD [facility] [place] [address] 07/30/2024 10:51 AM EST Hospital Encounter Outpatient [place] [address] Jr Fulton MD [facility] [place] [address] 07/30/2024 10:51 AM EST Anesthesia Event Outpatient Surgery [facility] [place] [address] Megan Orona [place] [address] 07/30/2024 10:51 AM EST - 07/30/2024 1:11 PM EST Surgery Outpatient Surgery Center [place] [phone] Jr Fulton MD [facility] [place] [address] MASTECTOMY PARTIAL (WRVU 10.13) 08/22/2024 2:00 PM EST Office Visit General Surgery at [address]1000 Cindy Pierce APRN [facility] [place] [address] 08/22/2024 3:00 PM EST Office Visit Hematology [place] [address] Soo Lyn MD [facility] [place] [address] 08/27/2024 9:30 AM EST Scheduled View Only Radiation Oncology at [address] [phone] [address] Ovalles 08/27/2024 10:00 AM EST Office Visit Radiation Oncology at [address] [phone] Paradise Prado MD [facility] [place] [address] 2024 1:00 PM EDT Office Visit Cardiology at [address] [address] Ham Montenegro MD [facility] [place] [address] Scheduled Procedures Name Priority Associated Diagnoses Date/Ti [...] Associated Diagnosis Comments SCAN, PERIPHERAL BLOOD Routine 2:19 PM EDT HEMOGRAM Routine 03/06/2024 2:19 PM EDT Malignant neoplasm of upper-outer quadrant of left breast in female, estrogen receptor negative DIFFERENTIAL, AUTOMATED Routine 03/06/2024 2:19 PM EDT Malignant neoplasm of upper-outer quadrant of left breast in female, estrogen receptor negative CBC (WITH DIFF) Routine 03/06/2024 2:19 PM EDT Malignant neoplasm of upper-outer quadrant of left breast in female, estrogen receptor negative COMPREHENSIVE METABOLIC PANEL Routine 03/06/2024 2:19 PM EDT Malignant neoplasm of upper-outer quadrant of left breast in female, estrogen receptor negative documented in this encounter Results * Scan, Peripheral Blood (03/06/2024 2:19 PM EDT) Pathologist [facility] Plat estimate Normal [facility] RBC Morphology Abnormal [facility] Macrocyte 1-5 /HPF [facility] Microcyte 1-5 /HPF [facility] Hypochromia Slight [facility] Henry Cells 1-5 /HPF [facility] Kim-Gabby Bdy Present >1/HPF [facility] Blood 03/06/2024 2:19 PM EDT 03/06/2024 2:31 PM EDT Narrative Resulting Agency Comment Spec In Lab Soo Lyn MD HEMATOLOGY ORDERABLE S [facility] [place] [address] * (ABNORMAL) Differential, Automated (03/06/2024 2:19 PM EDT) Neutrophil % 35.5 % [facility] Neutrophil Absolute 3.91 1.70 - 6.10 x10(3)/mc L [facility] Lymph % 55.6 % [facility] Lymphocytes Abs 6.1(H) 0.9 - 3.2 x10(3)/mc L [facility] Monocyte % 6.6 % [facility] Monocyte Abs 0.7 0.3 - 0.9 x10(3)/ L [facility] Eos % 1.7 % [facility] Eosinophils Abs 0.2 0.0 - 0.4 x10(3)/ L [facility] Basophil % 0.5 % [facility] Baso Absolute 0.1 0.0 - 0.1 x10(3)/ L [facility] Immature Gran % 0.10 % [facility] Comment: Immature granulocytes(IG's)percentage and absolute count will include metamyelocytes, myelocytes, and promyelocytes. Blood smears from CBCs yielding IG's will be scanned manually for concordance. If this scan disagrees with the automated IG or if promyelocytes are noted, a manual differential will be performed. Immature Gran Absolute 0.01 0.00 - 0.04 x10(3)/ L [facility] Blood 03/06/2024 2:19 PM EDT 03/06/2024 2:31 PM EDT Narrative Resulting Agency Comment Spec In Lab Soo Lyn MD HEMATOLOGY ORDERABLE S Performing Organization Address City/State/[facility] Co de Phone Number [facility] [place] [address] * (ABNORMAL) Hemogram (03/06/2024 2:19 PM EDT) White Blood Cell 11.0(H) 4.0 - 9.5 x10(3)/ L [facility] Red Blood Cell 4.17 4.00 - 5.21 x10(6)/ L [facility] Hemoglobin 12.5 11.7 - 15.5 g/dL [facility] Hematocrit 38.2 35.7 - 45.8 % [facility] Mean Cell Volume 91.6 82.6 - 94.4 fL [facility] Mean Cell Hemoglobin 30.0 27.1 - 32.0 pg [facility] Mean Cell Hemoglobin Concentration 32.7 31.7 - 35.0 g/dL [facility] Platelet 355 145 - 357 x10(3)/mc L [facility] RDW Standard Deviation 50.7(H) 37.0 - 46.0 fL [facility] RDW coefficient of variation 15.0(H) 11.5 - 14.1 % [facility] Mean Platelet Volume 10.7 7.6 - 12.9 fL [facility] NRBC% auto 0.0 % [facility] NRBC Absolute 0.000 0.000 - 0.000 x10(3)/mc L [facility] Blood 03/06/2024 2:19 PM EDT 03/06/2024 2:31 PM EDT Narrative Resulting Agency Comment Spec In Lab Soo Lyn MD HEMATOLOGY ORDERABLE S Performing Organization Address City/State/[facility] Co de Phone Number [facility] [place] [address] * (ABNORMAL) Comprehensive metabolic panel (non-fasting) (03/06/2024 2:19 PM EDT) Glucose 101 65 - 199 mg/dL [facility] Comment:Diabetes: >=200 mg/d L plus symptoms Blood Urea Nitrogen 19(H) 8 - 18 mg/dL [facility] Creatinine 1.66(H) 0.70 - 1.20 mg/dL [facility] Sodium 140 135 - 145 mmol/L [facility] Potassium 4.5 3.5 - 5.0 mmol/L [facility] Comment: Please note: ??Patients with WBC >100,000 may have falsely elevated Potassium levels. ??For accurate Potassium quantification in these patients send serum separator tube (gold top) for subsequent determinations. ??Contact the Clinical Chemistry Laboratory if there are any questions. Chloride 103 98 - 107 mmol/L [facility] Carbon Dioxide 24 22 - 31 mmol/L [facility] Anion Gap 13 5 - 15 mmol/L [facility] Calcium 9.7 8.5 - 10.5 mg/dL [facility] Protein, Total 7.0 6.1 - 8.0 g/dL [facility] Albumin 4.3 3.2 - 5.2 g/dL [facility] Aspartate Aminotransferase 22 0 - 30 unit/L [facility] Alanine Aminotransferase 14 0 - 30 unit/L [facility] Alkaline Phosphatase 145(H) 35 - 105 unit/L [facility] Bilirubin, Total 0.4 0.2 - 1.3 mg/dL [facility] Est Glomerular Filtration Rate 35(L) >=60 mL/min/1. 73 m?? [facility] [...] Lyn MD CHEMISTRY ORDERABLES [facility] [place] [address] documented in this encounter Visit Diagnoses Diagnosis Malignant neoplasm of upper-outer quadrant of left breast in female, estrogen receptor negative documented in this encounter Care Teams Drier Take Off Tender Relationship Specialty Start Date End Date Gaudencio Scales DO [address] [place] [address] PCP - General Family Medicine 11/28/23 documented as of this encounter
--- OUTSIDE RECORDS SUMMARY | 2024-07-27 12:48 | XMS_ITS | Encounter Summary ---
Author Organization [facility] Address [facility] [address] Care Team Providers Care Vp Customer Development Name Role Phone Gaudencio Scales Antoine VERGARA Primary Care Provider [phone] Encounter Details Date Type Department Care Team (Latest Contact Info) Description 02/25/2024 Ancillary Procedure Radiology Library [place] [address] Jr Fulton MD [facility] [place] [address] Malignant neoplasm of left breast in female, estrogen receptor negative, unspecified site of breast Social History Tobacco Use Types Packs/Day Years Used Date Smoking Tobacco: Former Cigarettes 1 40 0 11/17/1981 - 11/17/2021 Smokeless Tobacco: Never Alcohol Use Standard Drinks/Week Comments Not Currently 0 (1 standard drink = 0.6 oz pur e alcohol) [facility] Utilities Answer Date Recorded In the past 12 months has e electric, gas, oil, or water [employer] threatened to shut off services in your [...] in a prison (including now)? No 11/29/2023 IPV Inpatient Questions [...] 8:40 AM EST Hospital En[place] [phone] Jr Fulton MD [facility] [address] [place] [address] 07/30/2024 8:45 AM EST Appointment [place] [phone] Jr Fulton MD [facility] [place] [address] 07/30/2024 9:20 AM EST Hospital Encounter [place] [phone] Jr Fulton MD [facility] [place] [address] 07/30/2024 10:51 AM EST Hospital Encounter Outpatient Surgery Center [place] [phone] Jr Fulton MD [facility] [place] [address] 07/30/2024 10:51 AM EST Anesthesia Event [place]patient [place] [address] Megan Orona [place] [address] 07/30/2024 10:51 AM EST - 07/30/2024 1:11 PM EST Surgery Outpatient Surgery Center [place] [phone] Jr Fulton MD [facility] [place] [address] MASTECTOMY PARTIAL (WRVU 10.13) 08/22/2024 2:00 PM EST Office Visit General Surgery at [place] [phone] Cindy Pierce APRN [facility] [place] [place] [address] 08/22/2024 3:00 PM EST Office Visit Hematology and Oncology at [place] [phone] Soo Lyn MD [facility] [place] [address] 08/27/2024 9:30 AM EST Scheduled View Only Radiation Oncology at [address] [phone] St Josr [place] 08/27/2024 10:00 AM EST Office Visit Radiation Oncology at [address] [phone] Paradise Prado MD [facility] [place] [address] 2024 1:00 PM EDT Office Visit Cardiology at [address] [place] [phone] Ham Montenegro MD [facility] [place] [address] Scheduled Procedures Name Priority Associated Diagnoses Date/Ti [...] Procedure Name Priority Date/Time Associated Diagnosis Comments REQUEST FOR 2ND READ MAMMO Routine 02/24/2024 9:23 AM EDT Malignant neoplasm of left breast in female, estrogen receptor negative, unspecified site of breast documented in this encounter Results * Request for 2nd read Mammo (02/24/2024 [...] Considered Please note: The interpretation of the [facility] Breast Imaging Radiologist subspecialist may differ from the original radiologists interpretation. This is usually not due to a deficiency of the original interpreting radiologist, rather due to the greater skill level afforded by sub-specialization in the field and/or reasonable variations in interpretations. If you have a concern regarding the D-H interpretation you may contact the [facility] Breast Build Master Office at . Thank you for letting us participate in the care of this patient. ??If you are a health care provider and have any questions regarding this report, please contact the number below. ??For patients who have questions please contact the health regular senior care provider that requested your imaging first. ? Narrative 02/24/2024 5:16 PM EDT INTERPRETATION OF OUTSIDE BREAST IMAGING I have been asked to consult on this patient because a review of this study may change or alter the care of this patient. STUDIES FROM: [facility] CLINICAL HISTORY: 2nd opinion - triple neg breast cancer - tx planning; I believe a reinterpretation of this exam may alter care of Patient. Yes; What Modality is the exam? Mammography; Body Part (please add comments as necessary): breast; Sending Institution [place]; Date of exam [id number]. ?? DATES and [...] the care of this patient. STUDIES FROM: [facility] CLINICAL HISTORY: 2nd opinion - [...] Considered Please note: The interpretation of the [facility] BreastImaging Radiologist subspecialist may differ from the original radiologists interpretation. This is usually not due to a deficiency of the original interpreting radiologist, rather due to the greater skill level affordedby sub-specialization in the field and/or reasonable variations ininterpretations. If you have a concern regarding the -H interpretation you may [facility] at . Thank you for letting us participate in the care of this patient. If youare a health care provider and have any questions regarding this report,please contact the number below. For patients who have questions please contactthe health regular senior care provider that requested your imaging first. Jr Fulton MD IMG OUTSIDE INTERPRE TATION ORDERABLES documented in this encounter Visit Diagnoses Diagnosis Malignant neoplasm of left breast in female, estrogen receptor negative, unspecified site of breast documented in this encounter Care Teams Vp Customer Development Relationship Specialty Start Date End Date Gaudencio Scales DO [address] [place] [address] PCP - General Family Medicine 11/28/23 documented as of this encounter
--- OUTSIDE RECORDS SUMMARY | 2024-07-27 12:49 | XMS_ITS | Encounter Summary ---
Author Organization [facility] Address [facility] [place] [address] Care Team Providers Care Ergonomic Specialist Name Role Phone Gaudencio Scales DO Primary Care Provider [phone] Encounter Details Date Type Department Care Team (Late st Contact Info) Description 02/10/2024 Ancillary Procedure Radiology Library at [facility] [place] [address] Gaudencio Scales DO [address] [place], [place] [phone] Social History Tobacco Use Types Packs/Day Years Used Date Smoking Tobacco: Former Cigarettes 1 40 0 11/17/1981 - 11/17/2021 Smokeless Tobacco: Never Alcohol Use Standard Drinks/Week Comments Not Currently 0 (1 standard drink = 0.6 oz pur e alcohol) [facility] Utilities Answer Date [...] in a usp (including now)? No 11/29/2023 IPV Inpatient Questions [...] 8:40 AM EST Hospital Encounter Mammography at [place] [phone] Jr Fulton MD [facility] [place] [address] 07/30/2024 8:45 AM EST [place] [phone] Jr Fulton MD [facility] [place] [address] 07/30/2024 9:20 AM EST Hospital [place] [phone] Jr Fulton MD [facility] [place] [address] 07/30/2024 10:51 AM EST Hospital Encounter Outpatient Surgery Center [place] [phone] Jr Fulton MD [facility] [place] [address] 07/30/2024 10:51 AM EST Anesthesia Event [place] [address] Megan Oron[place] [address] 07/30/2024 10:51 AM EST - 07/30/2024 1:11 PM EST Surgery Outpatient [facility] [place] [phone] Jr Fulton MD [facility] [place] [address] MASTECTOMY PARTIAL (WRVU 10.13) 08/22/2024 2:00 PM EST Office Visit General Surgery at [place] [phone] Cindy Pierce APRN [facility] [place] [place] [address] 08/22/2024 3:00 PM EST Office Visit Hematology and Oncology at [place] [phone] Soo Lyn MD [facility] [place] [place] [address] 08/27/2024 9:30 AM EST Scheduled View Only Radiation Oncology at [address] [phone] St Josr [place] 08/27/2024 10:00 AM EST Office Visit Radiation Oncology at [address] [phone] Paradise Prado MD [facility] [place] [address] 2024 1:00 PM EDT Office Visit Cardiology at [address] [place] [address] Ham Montenegro MD [facility] [place] [place] [address] Scheduled Procedures Name Priority Associated Diagnoses Date/Ti [...] Name Priority Date/Time Associated Diagnosis Comments FILM LIBRARY-STORAGE ONLY US BREAST Routine 02/10/2024 12:00 AM EDT documented in this encounter Results * Film Library Storage Only US Breast (02/10/2024 12:00 AM EDT) Narrative [facility] - 02/16/2024 8:17 PM EDT This exam is auto-finalizing. It's purpose is for storage only. Gaudencio Scales DO [facility] FILM LIBRARY ORD ERABLES [place], [place] documented in this encounter Visit Diagnoses Not on filedocumented in this encounter Care Teams Ergonomic Specialist Relationship Specialty Start Date End Date Gauedncio Scales DO [address] [place] [address] PCP - General Family Medicine 11/28/23 documented as of this encounter
--- OUTSIDE RECORDS SUMMARY | 2024-07-27 12:49 | XMS_ITS | Encounter Summary ---
Author Organization [facility] Address [facility] [place] [address] Care Team Providers Care Paint Crew Supervisor Name Role Phone Gaudencio Scales DO Primary Care Provider Encounter Details Date Type Department Care Team (Late st Contact Info) Description 02/16/2024 Telephone Hematology and Oncology at [facility] [place] [phone] Tresa Zapata Social History Tobacco Use Types Packs/Day Years Used Date Smoking Tobacco: Former Cigarettes 1 40 0 11/17/1981 - 11/17/2021 Smokeless Tobacco: Never Alcohol Use Standard Drinks/Week Comments Not Currently 0 (1 standard drink = 0.6 oz pur e alcohol) [facility] Utilities Answer Date Recorded In the past 12 months has th e electric, gas, oil, or water [employer] threatened to shut off services in your [...] in a detention (including now)? No 11/29/2023 DH IPV Inpatient [...] encounter Miscellaneous Notes * Telephone Encounter - Tresa Zapata - 02/16/2024 11:43 AM EDT Patient Info: Oksana Boothejoe 1965 Attn: Pathology Department From: [facility] [phone] [x]Urgent [] For Review [] Please Reply []Please Recycle Please send the following materials ONLY (this may likely require review by an on-site pathologist at your institution to select appropriate slides): All breast cancer related pathology reports including any original HER2 FISH, OncotypeDX and other outside consultation reports. Diagnostic H&E slide(s) of tumor sufficient to confirm breast tumor type, grade, size, and to confirm presence of metastatic disease in lymph nodes if present. Send a reimbursement representative slide for each separate focus of tumor if multiple tumors present. Please include unstained slides and blocks NOTE: All slides do not need to be sent. Immunohistochemistry stained slides of prognostic markers (ER, OK and HER2) performed on tumor(s) if available. If patient has metastatic disease (i.e. bone, lung, liver) that has been biopsied, send diagnostic H&E slide(s) of metastatic disease with immunohistochemistry if performed. Fed-Ex # [id number] to send overnight Mail to: Dr. Bhakti Munoz Department of Pathology [facility] Attn: Anatomic Pathology, [place] [address] If questions please call [phone] Notice of Confidentiality: The documents accompanying this FAX transmission cover contain information from [facility] that is confidential and privileged. The information is intended for the use of the individual or entity named on this transmittal sheet. If you are not the intended recipient, be aware that any disclosure, copying, distribution or use of the contents is prohibited. If you have received the FAX in error, please notify us by telephone (collect) immediately to permit us to arrange for the retrieval of the documents at no cost to you documented in this encounter Plan of Treatment Upcoming Encounters Date Type Department Care Team (Latest Contact Info) Description 07/30/2024 8:40 AM EST Hospital Encounter Mammography at [place] [address] Jr Fulton MD [facility] [place] [address] 07/30/2024 8:45 AM EST Appointment Mammography at [place] [address] Jr Fulton MD [facility] [place] [address] 07/30/2024 9:20 AM EST Hospital Encounter Mammography at [address] Jr Fulton MD [facility] [address] [address] 07/30/2024 10:51 AM EST Hospital Encounter Outpatient Surgery Center [place] [phone] Jr Fulton MD [facility] [place] [place] [address] 07/30/2024 10:51 AM EST Anesthesia Event Outpatient Surgery [facility] [place] [phone] Megan Orona [place] [address] 07/30/2024 10:51 AM EST - 07/30/2024 1:11 PM EST Surgery [facility] [place] [phone] Jr Fulton MD [facility] [place] [address] MASTECTOMY PARTIAL (WRVU 10.13) 08/22/2024 2:00 PM EST Office [place] [phone] Cindy Pierce APRN [facility] [place] [address] 08/22/2024 3:00 PM EST Office Visit Hematology and Oncology at [place] [phone] Soo Lyn MD [facility] [place] [address] 08/27/2024 9:30 AM EST Scheduled View Only Radiation Oncology at [address] [phone] St Josr Whitley 08/27/2024 10:00 AM EST Office Visit Radiation Oncology at [address] [phone] Paradise Prado MD [facility] [place] [address] 2024 1:00 PM EDT Office Visit Cardiology at [address] [place] [phone] Ham Montenegro MD [facility] [place] [address] Scheduled Procedures Name Priority Associated Diagnoses Date/Ti [...] on filedocumented in this encounter Care Teams Paint Crew Supervisor Relationship Specialty Start Date End Date Gaudencio Scales DO [address] [place] [address] [place] [address] PCP - General Family Medicine 11/28/23 documented as of this encounter
--- OUTSIDE RECORDS SUMMARY | 2024-07-27 12:49 | XMS_ITS | Encounter Summary ---
Author Organization [facility] Address [facility] [place] [address] Care Team Providers Care Sausage Grinder Name Role Phone Gaudencio Scales DO Primary Care Provider [phone] Encounter Details Date Type Department Care Team (Late st Contact Info) Description 02/03/2024 12:05 AM EDT Ancillary Procedure Radiology Library at [facility] [place] [phone] Gaudencio cSales DO [address] [place], [place] [id number] Social History Tobacco Use Types Packs/Day Years Used Date Smoking Tobacco: Former Cigarettes 1 40 0 11/17/1981 - 11/17/2021 Smokeless Tobacco: Never Alcohol Use Standard Drinks/Week Comments Not Currently 0 (1 standard drink = 0.6 oz pur e alcohol) [facility] Utilities Answer Date Recorded In the past 12 months has e [employer], gas, oil, or water [employer] threatened to shut off services in your [...] 8:40 AM EST Hospital Encounter [place] [phone] Jr Fulton MD [facility] [place] [address] 07/30/2024 8:45 AM EST Appointment [place] [phone] Jr Fulton MD [facility] [place] [address] 07/30/2024 9:20 AM EST Hospital Encounter [place] [phone] Jr Fulton MD [facility] [place] [place] [address] 07/30/2024 10:51 AM EST Hospital Encounter [place] [phone] Jr Fulton MD [facility] [place] [address] 07/30/2024 10:51 AM EST Anesthesia Event Outpatient Surgery Center [place] [phone] Megan Oron[place] [address] 07/30/2024 10:51 AM EST - 07/30/2024 1:11 PM EST Surgery Outpatient [facility] [place] [phone] Jr Fulton MD [facility] [place] [address] MASTECTOMY PARTIAL (WRVU 10.13) 08/22/2024 2:00 PM EST Office Visit General Surgery at [place] [phone] Cindy Pierce APRN [facility] [place] [address] 08/22/2024 3:00 PM EST Office Visit Hematology and Oncology at [place] [phone] Soo Lyn MD [facility] [place] [address] 08/27/2024 9:30 AM EST Scheduled View Only Radiation Oncology at [address] [phone] St Josr Whitley 08/27/2024 10:00 AM EST Office Visit Radiation Oncology at [address] [phone] Paradise Prado MD [facility] [place] [address] 2024 1:00 PM EDT Office Visit Cardiology at [address] [place] [address] Ham Montenegro MD [facility] [place] [address] Scheduled Procedures Name Priority Associated Diagnoses Date/Ti [...] Comments FILM LIBRARY-STORAGE ONLY US BREAST Routine 02/03/2024 12:05 AM EDT documented in this encounter Results * Film Library Storage Only US Breast (02/03/2024 12:05 AM EDT) Narrative RAD - 02/16/2024 8:17 PM EDT This exam is auto-finalizing. It's purpose is for storage only. Gaudencio STINSON FILM LIBRARY ORD ERABLES [place], [place] documented in this encounter Visit Diagnoses Not on filedocumented in this encounter Care Teams Sausage Grinder Relationship Specialty Start Date End Date Gaudencio Scales DO [address] [place] [address] PCP - General Family Medicine 11/28/23 documented as of this encounter
--- OUTSIDE RECORDS SUMMARY | 2024-07-27 12:49 | XMS_ITS | Encounter Summary ---
Author Organization [facility] [place] [address] Care Team Providers Care Voice Studies Director Name Role Phone Loyda Gaudencio Antoine VERGARA Primary Care Provider [phone] Reason for Referral * Consultation (Routine) - Closed Specialty Diagnoses / Procedures Referred By Radha carr Referred To Contact Cardiology Diagnoses NSTEMI (non-ST elevated myocardial infarction) Arlin Jackson MD [facility] [place] [address] Evita Alejandro MD [address] [place] [id number] Referral ID Status Reason Start Date Expiration Date V isits Requested Visits Authorized [id number] Closed Consult, Test & Treat 12/02/2023 05/30/2024 1 1 * Consultation (Routine) - Closed Specialty Diagnoses / Procedures Referred By Radha carr Referred To Contact Cardiology Diagnoses NSTEMI (non-ST elevated myocardial infarction) Jose Souza V, [facility] [place] [address] Cardiac Rehab, [address] [facility] [place] [address] Referral ID Status Reason Start Date Expiration Date V isits Requested Visits Authorized [id number] Closed Consult, Test & Treat 12/02/2023 05/30/2024 36 36 Reason for Visit * Auth/Cert (Routine) Specialty Diagnoses / Procedures Referred By Contac t Referred To Contact Diagnoses NSTEMI (non-ST elevated myocardial infarction) NSTEMI Procedures emerg ipi Emory Ross MD [facility] [place] [address] [facility] Referral ID Status Reason Start Date Expiration Date Visits Re quested Visits Authorized [id number] 1 1 Encounter Details Date Type Department Care Team (Latest Contact Info) Description 11/28/2023 10:55 AM EDT - 12/04/2023 2:24 PM EDT Hospital Encounter Heart and Vascular Unit Level 4 [place] [id number] Emory Ross MD [facility] [place] [address] Ady Perkins MD [facility] [place] [address] Jose Souza DO [facility] [place] [address] Arlin Jackson MD [facility] [place] [address] NSTEMI (non-ST elevated myocardial infarction) Discharge Disposition: Home Social History Tobacco Use Types Packs/Day Years Used Date Smoking Tobacco: Former Cigarettes 1 40 0 11/17/1981 - 11/17/2021 Smokeless Tobacco: Never Tobacco Cessation:Counseling Given: Not Answered Alcohol Use Standard Drinks/Week Comments Not Currently 0 (1 standard drink = 0.6 oz pur e alcohol) [facility] Utilities Answer Date Recorded In the past 12 months has [email or web address] electric, gas, oil, or water company threatened [...] in a fci (including now)? No 11/29/2023 DH IPV Inpatient [...] Sign Reading Time Taken Comments Blood Pressure 139/67 12/04/2023 11:35 AM EDT Pulse 82 12/04/2023 11:35 AM EDT Temperature 36.4 ??C (97.5 ??F) 12/04/2023 1 1:35 AM EDT Respiratory Rate 22 12/04/2023 8:40 AM EDT Oxygen Saturation 100% 12/04/2023 11: 35 AM EDT Inhaled Oxygen Concentration - - Weight 106.6 kg (235 lb 1.6 oz) 12/04/2023 3:07 AM EDT Height 167.6 cm (5' 6) 11/28/2023 11:0 5 AM EDT Body Mass Index 37.95 11/28/2023 11:05 AM EDT documented in this encounter Discharge Summaries * Arlin Jackson MD - 12/04/2023 8:16 AM EDT Discharge Summary Patient Name: Oksana Betancourt Patient Age: 58 y.o. Language: Kosovan Race: Choose not to Disclose Ethnicity: Choose not to Disclose Admit date: 11/28/2023 Discharge date and time: 12/04/23 Attending Physician: Arlin Jackson MD Discharge Physician: Arlin Jackson MD Follow-up Recommendations for Providers: To Do [ ] BMP, mag, phos, CBC in 1 week [ ] up titration GDMT as tolerated [ ] Follow-up on diuresis requirements as patient discharged off of daily diuretic Blood Thinners on Discharge: - Eliquis continued - Take aspirin 81mg for 1 month (through 01/01/24). Then stop for next 11 months. Patient to restartASA after discontinuation of 12 months plavix - Continue on clopidogrel (Plavix) for 12 months. Other Pertinent Medication Changes - DISCONTINUED: amlodipine, ranolazine, isosorbide dinitrite - STARTED: metoprolol succinate 50mg twice a day - CHANGED: lasix switched to NEEDED. Duo nebs added PRN for breathing. Inpatient Provider Contact Information: Arlin Jackson MD [phone] For questions regarding this document or issues relating to this hospitalization on the Medical Service, please contact your inpatient physician through the [facility] Methods Examiner . Issues afterhours and on weekends will be handled by the Hospitalist staff on-call. Discharge Diagnoses (Hospital Problems) and Secondary Diagnoses (Chronic Problems): Active Hospital Problems Diagnosis NSTEMI (non-ST elevated myocardial infarction) Resolved Hospital Problems No resolved problems to display. There are no active non-hospital problems to display for this patient. Cardiovascular Imaging/Procedures: TTE 11/28/23 Interpretation Summary -Left ventricular systolic function is mildly reduced. The left ventricular ejection fraction is 44% by Guzman's biplane. There are segmental wall motion abnormalities which are in an RCA distribution (inferior, inferoseptal predominantly-see attached PDF). No thrombus. -Right ventricular systolic function is normal. The estimated RVSP is 42mmhg. -There is an aortic bioprosthesis (size/type unknown, reported to have been placed in 2021) which appears to be functioning normally. Mean gradient 5mmHg. No regurgitation. -There is moderate mitral regurgitation which is both central and anteriorly directed. The leaflets are not well visualized. The mechanism of the MR is unclear with the available data. No prior images for comparison. See report for additional findings. [facility] 11/28/23 Conclusions: * Significant stenosis of the left main * Two vessel coronary artery disease (LAD and RCA) * Successful angioplasty of the proximal RCA lesion * Successful stent insertion of the ostial RCA lesion * See Dual Antiplatelet (DAPT) Recommendations above [facility] 12/02/23 Conclusions: * Obstructive disease of the LM, LAD and LCX * Successful angioplasty of the ostial LAD lesion * Successful stent insertion of the distal LM lesion * Successful angioplasty of the ostial LCX lesion * See Dual Antiplatelet (DAPT) Recommendations above History of Presentation: Per History and Physical 11/28/23 ID: Oksana Betancourt is a 57 y.o. female with a history of triple vessel CAD s/p staged PCI in [place] in -03/2022 (with CRIS x1 to mid-RCA, CRIS x2 to ostial RCA, CRIS x1 to ostial LCX, and RCIS x1 to mid-LCX), severe s/p TAVR in 2021, baseline LBBB, HLD, HTN, Hodgkin lymphoma s/p radiation, CKD IIIb, bipolar disorder, COPD, and hypothyroidism who presented to OSH with nausea and SOB and was transferred to [facility] for high-risk NSTEMI. HPI: Oksana reports that she was in her usual state of health until three days ago. At that time, she started to feel nauseous and had no appetite. States that she was spitting up bile. No emesis or abdominal pain. She had not eaten much since that time. Last night at 0130, she started to feel a heaviness in her chest associated with shortness of breath. This did not wake her up from sleep; she had been having trouble falling asleep. Chest heaviness was located on the right side and did not radiate. She reports a long history of orthopnea - she feels SOB if she lies flat. No PND. She reports taking lasix 20 mg daily. Oksana recently moved to [place] from [place], [place] at the end of August to be closer to family. She lives alone but lives next door to her brother. She has a PCP here and recently established with a ski production supervisor (Evita Alejandro) in [facility]. She reportedly saw Dr. Alejandro within the past week for a routine visit; Oksana did not have any symptoms at that time. She was reportedly taken off ticagrelor at that time, but no changes were made to her diuretic regimen. She reports occasional LE edema. Ms. Betancourt has a significant cardiovascular history. She had an [place] in 2021, which she says presented with similar symptoms to her current presentation. On 03/10/2022 she underwent LHC that showed 10%LM disease, mid-LAD 30%, LCX ostial 90%, RCA mid 99% stenosis. Severe aortic stenosis (NICO 0.65 cm2). LVEDP 3 mmHg. 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 She therefore underwent staged PCI - on 03/17/22 she received CRIS x1 to mid-RCA and CRIS x2 to ostial RCA and on 03/19/22 received CRIS x1 to ostial LCX and CRIS x1 to mid LCX. She reported improvement in chest pain after these procedures. Oksana also underwent TAVR in 2021. It seems that she was initially on ASA, ticagrelor, and apixaban (for paroxysmal a fib), but the ASA was stopped at some point to avoid triple therapy. At [facility], she was hypoxic requiring initiation of BiPAP. ECG demonstrated LBBB, which is not new for her. ECG did not meet Sgarbossa criteria per [facility] teletype operator. Troponin was markedly elevated (6000s). Bedside POCUS showed LVEF 10-15%. Oksana was loaded with ASA, Plavix, and started on a heparin gtt. She was transferred to [facility] for high-risk NSTEMI. On arrival, Oksana reported ongoing nausea. Her SOB had improved, though she remained on BiPAP. 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 Betancourt was loaded with ASA 325 and Plavix 600 at OSH. EKG at OSH showed known LBBB, and patient did not meet Sgarbossa criteria. Bedside echo at OSH had shown LVEF of 10-15%. Patient underwent LHC on 11/28/2023. She was on heparin gtt. Patient was on atorvastatin 40 mg daily, which was later increased to 80 mg daily. TSH was normal. Held isosorbide mononitrite and ranolazine in jasper-procedural setting. TTE demonstrated mildly reduced LVEF of 44% with WMAs in the inferoseptal region. She underwent LHC on 11/27 that demonstrated high-grade lesions in the proximal RCA (in-stent stenosis), distal left main, and ostial LAD. A CRIS was placed in the RCA lesion. Access was challenging due to a right brachial artery occlusion, so access was achieved through the groin. Ms. Betancourt tolerated the procedure well. Heparin was continued afterward due to persistent left-sided lesions. Metoprolol tartrate was started on 11/28 and switched to metoprolol succinate prior to discharge. CT chest was performed on 11/28 to reassess for porcelain aorta. Patient returned to laboratory equipment cleaner 12/01 for PCI to LAD and LM which patient tolerated well. Mild oozing noted at access site, for which she required manual pressure, re-dressing, sandbag placement, after which oozing resolved with only small bruising remaining. Prior to discharge, patient able to ambulate well with no oozing and restarted on home eliquis for pAF. #Bipolar Disorder Continued home quetiapine 100 mg nightly and continued home lamotrigine 100 mg BID. #Chronic Pain Patient was on Baclofen 5 mg BID. Continued home oxycodone-acetaminophen 10-650 mg q8h PRN. #Acute HFrEF BNP was 11,000 on admission. Per OSH, LVEF 10-15% on bedside TTE. Patient was diuresed with IV lasix 40 x1 and 80 x1 on admission. Home furosemide was held through rest of admission. She will continue on NEEDED lasix only on discharge #Hypertension Home amlodipine was held given normotension #Acute Hypoxic Respiratory Failure 2/2 Heart Failure Exacerbation Patient was on BiPAP at time of admission. CXR on 11/27 showed pulmonary edema and bilateral pleuraleffusions. Patient off O2 after diuresis. #COPD #Current tobacco use Duonebs PRN was ordered. #CKD3b Baseline Cr ~1.1-1.2. Daily BMPs obtained. #GERD Pantoprazole 40 daily was administered (patient takes omeprazole at home). Zofran prn ordered. #History of Hodgkin Lymphoma s/p radiation, in remission Daily CBC's ordered. #Hypothyroidism Levothyroxine 100 mcg daily was continued. TSH was 0.51 on admission. Vital Signs at Discharge: BP: 139/67, Heart Rate: 82, Temp: 36.4 ??C (97.5 ??F), Resp: 22, BMI (Calculated): 38.89 Height: 167.6 cm (5' 6) (11/28/23 1105) Weight: 106.6 kg (235 lb 1.6 oz) (12/04/23 0307) Functional and Cognitive Status: awake, alert, oriented x4. Ambulating well without assistance. No R groin site oozing noted prior to discharge. R groin ecchymosis present and stable. Important Studies and Lab Data: Labs: Last 3 wbc, hgb, hct plt Recent Labs 12/04/23 0243 12/03/23 0353 12/02/23 0309 WBC 9.1 10.8* 10.8* HGB 10.0* 10.4* 10.1* HCT 31.3* 32.7* 31.3* PLATELET 377* 367* 316 Last 3 Lytes Recent Labs 12/04/23 0243 12/03/23 0353 12/02/23 0309 NA 142 139 141 K 4.6 3.8 3.9 CL 105 102 105 CO2 27 24 25 BUN 13 14 16 CREATININE 1.36* 1.26* 1.25* Last 3 LFTs Recent Labs 11/28/23 1110 AST 48* ALT 16 ALKPHOS 117* BILITOT 0.6 BILIDIR 0.2 Last 3 ProBNP, Trop, CK Recent Labs 11/28/23 1110 PROBNP 11,073* Last 3 Lipids Recent Labs 11/29/23 0027 CHLPL 139 HDL 44 LDLDIRECT 69 TRIG 93 Last 3 HgbA1C Recent Labs 11/29/23 0027 HA1C 5.3 Studies: Results for orders placed or performed during the hospital encounter of 11/28/23 XR Chest One View (Exam End: 11/28/2023 11:30 AM) Narrative EXAMINATION: XR CHEST ONE VIEW CLINICAL HISTORY: Presenting with NSTEMI, shortness of breath, OSH reported pulmonary edema on CXR TECHNIQUE: 1 view of the chest COMPARISON: None FINDINGS: Indistinct bilateral pulmonary vascular markings and bilateral hazy airspace opacities. Small pleural effusions. The cardiac silhouette is enlarged. Aortic valve stent graft. Impression Interstitial edema and small pleural effusions I have personally reviewed the image(s) and the resident's interpretation and agree with the findings, Andrew Khoury MD at 11/28/2023 2:04 PM Thank you for letting us participate in the care of this patient. If you are a health care provider and have any questions regarding this report, please contact the number below. For patients who have questions please contact the health wound care technician that requested your imaging first. Electronically signed by: Andrew Khoury MD, [facility] ([phone]), at 11/28/2023 2:[address] Chest wo Contrast (Generic) (Exam End: 11/29/2023 1:05 PM) Narrative EXAMINATION: CT CHEST WO CONTRAST (GENERIC) CLINICAL HISTORY: hx of porcelain aorta, confirming TECHNIQUE: Helical CT of the chest without intravenous contrast administration. Thin-section reconstructions as well as coronal and sagittal reformatted images were generated. COMPARISON: Chest radiograph 11/28/2023 FINDINGS: Pulmonary parenchyma: Bilateral interlobular septal thickening. Scattered groundglass opacities throughout both lungs most pronounced in the right middle lobe and inferior bilateral lower lobes. Bilateral perihilar consolidation and air bronchograms. Airways: No central endobronchial abnormality. Pleura: Small bilateral pleural effusions. Lymph nodes: No lymphadenopathy. Heart and vasculature: Normal size of the heart. Aortic stent valve extending into the proximal ascending aorta. Coronary stents. Severe coronary artery calcific calcifications. No significant pericardial effusion. Diffuse calcifications of the ascending aorta. Normal caliber of the thoracic aorta. Other mediastinal structures: Patulous esophagus. Upper abdomen: Cortical thinning of the partially visualized right kidney. Contrast opacifies the bilateral renal collecting systems from prior contrast administration. Skeletal structures: Thoracic degenerative disc disease. Impression 1. Prominent noncontiguous calcifications of the ascending aorta. Aortic stent valve extending into the proximal ascending aorta. 2. Pulmonary alveolar and interstitial edema. Superimposed aspiration/pneumonia may have a similar appearance. 3. Small bilateral pleural effusions. I have personally reviewed the image(s) and the resident's interpretation and agree with the findings, Marco A Glynn MD at 11/30/2023 11:07 AM Thank you for letting us participate in the care of this patient. If you are a health care provider and have any questions regarding this report, please contact the number below. For patients who have questions please contact the health wound care technician that requested your imaging first. Cardiac Catheterization (Exam End: 11/28/2023 5:12 PM) Narrative [facility] Cardiac Catheterization/Intervention Report Patient Name: Oksana Betancourt Procedure Date: 11/28/2023 A #: [id number] Primary Physician: Ryder Hargrove Case #: [id number] File Name: [id number] Catheterization Order Number: [id number] [facility] Traffic Operations Manager [facility] Final Report [place], [place] Patient Name: Oksana Betancourt ID#: [id number] : 1965 Procedure Date: November 28, 2023 Case #: [id number] Room: 2 Case Physician: Ryder Hargrove M.D. Start: 15:44 Fellow: Faustino Hernández M.D. Admission: 11/28/2023 Referring Physician: Blaze Randall M.D. Procedures: * Coronary Angiography * Left Heart Catheterization * Coronary Angioplasty * Coronary Stent Insertion History Oksana Betancourt is a 57 year old woman. She has hypertension. The patient's smoking status is Never. She has hypercholesterolemia managed with lipid therapy. The patient has a prior history of coronary artery disease. She had a coronary intervention procedure. The patient has a history of a prior aortic valve replacement. She has a total of one aortic valve surgery. The patient also has a history of cancer. Prior to the initiation of this procedure, the patient was designated as ASA Class III. The [facility] clinical frailty scale is 5: Mildly Frail. Diagnostic Tests: Prior Coronary Angiography: LV ejection fraction within 6 months is 50%. Electrocardiography: EKG was assessed by ECG. EKG was Normal. Medications Prior to Procedure: Ranolazine, Aspirin, Calcium Channel Blocking Agent, Long Acting Nitrate and Statin. Indications for Diagnostic Cath: The priority of the diagnostic procedure was Urgent. The indication for the laboratory equipment cleaner visit is ACS less than or equal to 24 hrs. Chest pain symptom assessment was: Atypical Angina. Technique: A 6 SLFr sheath was inserted in the right radial artery utilizing the Seldinger technique. A 6Fr sheath was inserted in the right femoral artery utilizing the Seldinger technique. The left coronary artery was injected utilizing a 6Fr JL 4 catheter. A 6Fr JR 4 catheter was used to inject the right coronary artery. Left ventricular pressure was performed utilizing a 6Fr JR 4 catheter. Coronary angioplasty and coronary stent insertion were performed and the equipment utilized will be described in the intervention summary section. 9,000 units of heparin were administered. A total of 300cc of Omnipaque were opened, 215cc of Omnipaque were administered and 85cc of Omnipaque were wasted. Radiation: Fluoro time was 23.6 minutes, dose area product was 79.60 Gy/cm2 and air kerma was 1,345 mGY. See the case log for additional details. The patient received the following medications prior to and during the procedure: Unfractionated Heparin and Clopidogrel. Hemodynamics: Left Heart Pressures Resting: Syst Diast EDP a v m Ao 122 52 80 LV 134 16 Coronary Angiography: Dominance: Right Left Main There was an 80% single discrete stenosis of the distal segment of the left main artery. The left main was large. Left Anterior Descending There was an 80% single discrete stenosis of the ostial segment of the left anterior descending artery (LAD). The LAD was large. Left Circumflex There was mild diffuse (<=25% stenosis) disease of the entire vessel segment of the left circumflex artery (LCX). The LCX was large. The previously placed stent is patent. Right Coronary Artery There was mild diffuse (<=25% stenosis) disease of the entire vessel segment of the right coronary artery (RCA). The RCA was large. The ostial segment of the RCA had a single discrete 90% stenosis. This lesion represented in-stent restenosis following a prior coronary stent insertion. There also was a 90% long segmental stenosis of the proximal segment of the RCA. This lesion represented in-stent restenosis following a prior coronary stent insertion. Indication for Intervention: Coronary intervention was indicated for primary therapy for an acute myocardial infarction. The priority for the procedure was Urgent. The NCDR indication for the procedure was NSTE-ACS. LVEF within one week was 50%. Syntax Score was Intermediate. Initial PCI was performed for multivessel disease. Intervention Summary: Right Coronary Artery Ostial 90% Stent insertion was performed on the 90% stenosis in the ostial segment of the RCA. This was a drug eluting in-stent restenosis lesion. According to the ACC/AHA classification system, this lesion was a type C high risk lesion. Primary prevention of restenosis was the indication for stent insertion. A guidewire was placed across this lesion. Vessel flow pre intervention was PARADISE 3. Lesion length was 18mm. This was a previously treated lesion on 04/19/2022. Stent insertion was accomplished through a 6 Fr. JR 3.5 guide. The lesion was predilated with a 2.50mm NC EUPHORA 20 MM balloon with a maximum inflation pressure of 16 atmospheres. A premounted 3.50 x 22 mm [place] (CRIS) was deployed with a maximum inflation pressure of 18 atmospheres. Following stent deployment, the lesion was dilated using a 2.50mm NC EUPHORA 20 MM balloon with a maximum inflation pressure of 20 atmospheres. The final outcome was defined as successful. There was no residual stenosis following this intervention. The final PARADISE flow was 3. Proximal 90% Angioplasty was performed on the 90% stenosis in the proximal segment of the RCA. This was a drug eluting in-stent restenosis lesion. This lesion was designated a type C high risk lesion based on ACC/AHA classification system. A guidewire was placed across this lesion. Vessel flow pre intervention was PARADISE 3. Lesion length was 6mm. This was a previously treated lesion on 04/19/2022. Angioplasty was accomplished through a 6 Fr JR 3.5 guide utilizing a NC EUPHORA 20 MM balloon with a maximum size of 2.50mm and a maximum inflation pressure of 18 atmospheres. The final outcome was defined as successful. There was no residual stenosis following this intervention. The final PARADISE flow was 3. Vascular Access: Vascular Access Angiogram: A selective angiogram at the right femoral artery revealed mild diffuse disease. Vascular Ultrasound: Ultrasound of the right femoral artery was used to guide access and showed vessel patent with mild disease. Vascular Access Management: Mechanical Compression of the right radial artery access site was performed. Manual Compression of the right femoral artery access site was performed. Dual Antiplatelet (DAPT) Recommendations: Drug eluting stent (CRIS) inserted. P2Y12 Loading dose administered prior to arrival in the laboratory equipment cleaner. Recommended anti-platelet/anti-thrombotic regimen: Continue aspirin 81 mg daily for indefinitely. Continue clopidogrel 75 mg daily for indefinitely. These recommendations are made at the time of the intervention. Patient and provider preferences or a changing clinical situation may require modification of this regimen. Consult [facility] Interventional Cardiology for questions. Conclusions: * Significant stenosis of the left main * Two vessel coronary artery disease (LAD and RCA) * Successful angioplasty of the proximal RCA lesion * Successful stent insertion of the ostial RCA lesion * See Dual Antiplatelet (DAPT) Recommendations above Complications/Events: The patient had no complications during these procedures. Post Procedure Fluid Recommendations: IV fluid at 327 mL/hr for 4 hours for a total of 1,308 mL. These recommendations are made at the time of the procedure. Patient and provider preferences or a changing clinical situation may require modification of this regimen. The attending physician was present for the entire procedure. Dr. Ryder Hargrove M.D. was present during the moderate sedation intraservice time as documented by the sedation nurse. Case time = 01:18. Dr. Ryder Hargrove M.D. performed the coronary angiography, left heart catheterization, angioplasty-coronary and stent insertion-coronary. Ryder Hargrove M.D. Electronically Signed by: Ryder Hargrove M.D. Report Finalized: 11/29/2023 14:57 Cardiac Catheterization (Exam End: 12/02/2023 12:28 PM) [facility] Cardiac Catheterization/Intervention Report Patient Name: Oksana Betancourt Procedure Date: 12/02/2023 A #: [id number] Primary Physician: Ryder Hargrove Case #: [id number] File Name: [id number] Catheterization Order Number: [id number] [facility] Final Report [place], [place] Patient Name: Oksana Betancourt ID#: [id number] : 1965 Procedure Date: December 02, 2023 Case #: [id number] Room: 5 Case Physician: Ryder Hragrove M.D. Start: 11:26 Fellow: Faustino Hernández M.D. Admission: 11/28/2023 Referring Physician: Blaze Randall M.D. Procedures: * Coronary Angiography * Coronary Ultrasound * Coronary Angioplasty * Coronary Stent Insertion * Vascular Closure Device Deployment * Access Site Angiography History Oksana Betancourt is a 57 year old woman. She has hypertension. The patient's smoking status is Never. She has hypercholesterolemia managed with lipid therapy. The patient has a prior history of coronary artery disease. She had a coronary intervention procedure. The patient has a history of a prior aortic valve replacement. She has a total of one aortic valve surgery. The patient also has a history of cancer. Prior to the initiation of this procedure, the patient was designated as ASA Class III. The [facility] clinical frailty scale is 5: Mildly Frail. Diagnostic Tests: Prior Coronary Angiography: LV ejection fraction within 6 months is 44%. Electrocardiography: EKG was assessed by ECG. EKG was Normal. Medications Prior to Procedure: Ranolazine, Aspirin, Beta Krystal, Long Acting Nitrate and Statin. Indications for Diagnostic Cath: The priority of the diagnostic procedure was Urgent. The indication for the laboratory equipment cleaner visit is ACS greater than 24 hrs. Chest pain symptom assessment was: Typical Angina. Technique: A 6Fr sheath was inserted in the right femoral artery utilizing the Seldinger technique. The left coronary artery was injected utilizing a 6Fr EBU 3.0 catheter. Coronary angioplasty and coronary stent insertion were performed and the equipment utilized will be described in the intervention summary section. 15,000 units of heparin were administered. A total of 150cc of Omnipaque were opened, 139cc of Omnipaque were administered and 11cc of Omnipaque were wasted. Radiation: Fluoro time was 17.7 minutes, dose area product was 40.80 Gy/cm2 and air kerma was 535 mGY. See the case log for additional details. The patient received the following medications prior to and during the procedure: Unfractionated Heparin and Clopidogrel. Hemodynamics: Left Heart Pressures Resting: Syst Diast EDP a v m Ao 115 63 87 Coronary Angiography: Dominance: Right Left Main There was an 80% single discrete stenosis of the distal segment of the left main artery. The left main was large. Left Anterior Descending There was a 90% single discrete stenosis of the ostial segment of the left anterior descending artery (LAD). The LAD was large. Left Circumflex There was mild diffuse (<=25% stenosis) disease of the entire vessel segment of the left circumflex artery (LCX). The LCX was large. The previously placed stent is patent. The ostial segment of the LCX had a single discrete 75% stenosis. Right Coronary Artery This vessel was not injected. Intravascular Imaging/Physiology: Intravascular Ultrasound was performed in the distal LM using a 6 Fr EBU 3.0 guiding catheter and a 3.1 Fr Refinity 42 MHz catheter using auto 1 mm/sec pullback. Imaging was successful. Image quality was good. Indication: IVUS performed for left main disease, pre intervention planning and post intervention assessment. IVUS performed after pre-dilation. IVUS performed after vessel manipulation. Findings Pre-Intervention: scattered plaque, calcification and with nodules. These measurements were performed after pre-dilation of the lesion. Findings Post-Intervention: The stent was well expanded and apposed. Conclusions: stent/intervention appears optimized. Intravascular Ultrasound was performed in the ostial LAD using a 6 Fr EBU 3.0 guiding catheter and a 3.1 Fr Refinity 42 MHz catheter using auto 1 mm/sec pullback. Imaging was successful. Image quality was good. Indication: IVUS performed for pre intervention planning and post intervention assessment. IVUS performed after vessel manipulation. Findings Pre-Intervention: scattered plaque, calcification and with nodules. Findings Post-Intervention: The stent was well expanded and apposed. Conclusions: stent/intervention appears optimized. Indication for Intervention: Coronary intervention was indicated for treatment of a critical lesion post a myocardial infarction. The priority for the procedure was Elective. The NCDR indication for the procedure was NSTE-ACS. LVEF within one week was 40%. Syntax Score was Intermediate. Staged PCI was performed for multivessel disease. PCI is performed after surgical consult and Surgery Not Recommended. Intervention Summary: Left Main Artery Distal 80% Stent insertion was performed on the 80% stenosis in the distal segment of the left main. This was a de ellie lesion. According to the ACC/AHA classification system, this lesion was a type C high risk lesion. Primary prevention of restenosis was the indication for stent insertion. A guidewire was placed across this lesion. Vessel flow pre intervention was PARADISE 3. Lesion length was 10mm. The lesion involves a bifurcation with the LCX. This bifurcation lesion was treated with a single stent, side branch dilated post stent technique and a final kissing balloon post-dilation. Stent insertion was accomplished through a 6 Fr. EBU 3.0 guide. The lesion was predilated with a 2.50mm EUPHORA 12 MM balloon with a maximum inflation pressure of 12 atmospheres. A premounted 3.50 x 12 mm [place] (CRIS) was deployed with a maximum inflation pressure of 13 atmospheres. Following stent deployment, the lesion was dilated using a 4.00mm NC EMERGE 08 MM balloon with a maximum inflation pressure of 14 atmospheres. The final outcome was defined as successful. A coronary arteriolar vasodilator was administered as part of the intervention on this lesion. There was no residual stenosis following this intervention. The final PARADISE flow was 3. Left Anterior Descending Artery Ostial 90% Angioplasty was performed on the 90% stenosis in the ostial segment of the LAD. This was a de ellie lesion. This lesion was designated a type C high risk lesion based on ACC/AHA classification system. A guidewire was placed across this lesion. Vessel flow pre intervention was PARADISE 3. Lesion length was 8mm. This lesion was contiguous with LM-distal. Angioplasty was accomplished through a 6 Fr EBU 3.0 guide utilizing a NC EMERGE 12 MM balloon with a maximum size of 3.00mm and a maximum inflation pressure of 12 atmospheres. The final outcome was defined as successful. A coronary arteriolar vasodilator was administered as part of the intervention on this lesion. There was no residual stenosis following this intervention. The final PARADISE flow was 3. Left Circumflex Artery Ostial 75% Angioplasty was performed on the 75% stenosis in the ostial segment of the LCX. This was a de ellie lesion. According to the ACC/AHA classification system, this lesion was a type C high risk lesion. A guidewire was placed across this lesion. Vessel flow pre intervention was PARADSIE 3. Lesion length was 8mm. Angioplasty was accomplished through a 6 Fr EBU 3.0 guide utilizing a NC EMERGE 12 MM balloon with a maximum size of 2.50mm and a maximum inflation pressure of 12 atmospheres. The final outcome was defined as successful. A coronary arteriolar vasodilator was administered as part of the intervention on this lesion. There was no residual stenosis following this intervention. The final PARADISE flow was 3. Vascular Access: Vascular Access Angiogram: A selective angiogram at the right femoral artery revealed no significant obstructive disease. Vascular Ultrasound: Ultrasound of the right femoral artery was used to guide access and showed vessel patent with mild disease. Vascular Access Management: A 6 Fr Perclose was deployed at the right femoral artery access site. This device was successful. Manual Compression of the right femoral artery access site was performed. Dual Antiplatelet (DAPT) Recommendations: Drug eluting stent (CRIS) inserted for stable ischemic heart disease (SIHD). P2Y12 Loading dose administered prior to arrival in the laboratory equipment cleaner. Recommended anti-platelet/anti-thrombotic regimen: Continue aspirin 81 mg daily for 1 month then stop. Restart aspirin 81 mg daily in 12 months and continue unless contraindicated. Continue clopidogrel 75 mg daily for 12 months then stop. Continue apixaban 5 mg twice daily for indefinitely. These recommendations are made at the time of the intervention. Patient and provider preferences or a changing clinical situation may require modification of this regimen. Consult [facility] Interventional Cardiology for questions. Conclusions: * Obstructive disease of the LM, LAD and LCX * Successful angioplasty of the ostial LAD lesion * Successful stent insertion of the distal LM lesion * Successful angioplasty of the ostial LCX lesion * See Dual Antiplatelet (DAPT) Recommendations above Complications/Events: The patient had no complications during these procedures. Post Procedure Fluid Recommendations: IV fluid at 328 mL/hr for 4 hours for a total of 1,312 mL. These recommendations are made at the time of the procedure. Patient and provider preferences or a changing clinical situation may require modification of this regimen. Comments: This was a planned PCI of the LM/LAD/LCX bifurcation. A 6 wallisian EBU 3.0 guide was used to engage the LM through the Evolut valve frame. The LAD And LCX were wired with workhorse wires. The LAD was pre-dilated and IVUS was performed to the LCX and LAD which showed stents in the LCX ostial vessel to mid vessel with a small area of unstented area between the stents. We placed a 3.5 x 12 mm [place] CRIS to the LAD landing just proximal to an aneurysmal section in the proximal LAD. We performed POT with a 4.0 NC balloon and a kissing balloon inflation with a 2.5 NC in the LCX and a 3.0 NC in the LAD. There was an excellent final angiographic and IVUS result without any complications. The attending physician was present for the entire procedure. Dr. Ryder Hargrove M.D. was present during the moderate sedation intraservice time as documented by the sedation nurse. Case time = 00:57. Dr. Ryder Hargrove M.D. performed the coronary angiography, stent insertion-coronary, IVUS # coronary, access site angiography, vascular closure device and angioplasty-coronary. Ryder Hargrove M.D. Electronically Signed by: Ryder Hargrove M.D. Report Finalized: 12/02/2023 13:15 Pending Studies and Lab Data: none Discharge Conditions/Prognosis: stable Discharge to: home Updated Allergies/ADRs: No Known Allergies Immunizations Given this Hospitalization: Immunization History Administered Date(s) Administered Influenza Vaccine, Whole 08/03/2005 Pneumococcal Polysaccharide (Pneumovax 23) 11/08/2006 Discharge Medications: Your Medications New Medications Dose Details aspirin 81 mg chewable tablet Take 81 mg by mouth daily for 30 days. Through 01/01/24 81 mg Quantity: 30 tablet Refills: 0 clopidogreL 75 mg tablet Commonly known as: Plavix Take 1 tablet by mouth daily. 75 mg Quantity: 90 tablet Refills: 3 ipratropium-albuteroL 0.5 mg-3 mg(2.5 mg base)/3 mL Solution for Nebulization Commonly known as: Duoneb Take 0.5 mg by nebulization every 4 hours. 3 mL Quantity: 1 each Refills: 4 metoprolol succinate XL 50 mg ER 24 hr tablet Commonly known as: Toprol-XL Take 1 tablet by mouth 2 times daily. 50 mg Quantity: 30 tablet Refills: 12 nitroGLYcerin 0.4 mg sublingual tablet Commonly known as: Nitrostat Place 1 tablet under the tongue every 5 minutes as needed for Chest pain. 0.4 mg Quantity: 90 tablet Refills: 12 Continued medications with new dosing Dose Details atorvastatin 80 mg tablet Commonly known as: Lipitor Take 1 tablet by mouth Daily at Noon. What changed: medication strength how much to take 80 mg Quantity: 90 tablet Refills: 3 furosemide 20 mg tablet Commonly known as: Lasix Take 1 tablet by mouth daily as needed (weight gain, SOB, volume overload). What changed: when to take this reasons to take this 20 mg Quantity: 90 tablet Refills: 1 Continued medications, unchanged Dose Details baclofen 10 mg tablet Commonly known as: Lioresal Take 0.5 tablets by mouth 2 times daily. 0.5 tablet Refills: 0 Eliquis 5 mg tablet Take 5 mg by mouth 2 times daily. Generic drug: apixaban 5 mg Refills: 0 lamoTRIgine 100 mg tablet Commonly known as: LaMICtal Take 1 tablet by mouth 2 times daily. 1 tablet Refills: 0 levothyroxine 100 mcg tablet Commonly known as: Synthroid Take 100 mcg by mouth. 100 mcg Refills: [address] capsule Commonly known as: PriLOSEC 20M Capsule(s), PO, Once daily Refills: 0 ondansetron 4 mg tablet Commonly known as: Zofran Take 4 mg by mouth every 8 hours as needed. 4 mg Refills: 0 oxyCODONE-acetaminophen 10-325 mg tablet Commonly known as: Percocet Take 1 tablet by mouth every 8 hours as needed. 1 tablet Refills: 0 QUEtiapine 100 mg tablet Commonly known as: SEROquel Take 100 mg by mouth nightly. 100 mg Refills: 0 STOPPED Medications amLODIPine 10 mg tablet Commonly known as: Norvasc Crestor 10 mg tablet Generic drug: rosuvastatin HYDROcodone-acetaminophen 5-500 mg Tablet Commonly known as: VICODIN Hyzaar 100-25 mg tablet Generic drug: losartan-hydroCHLOROthiazide isosorbide dinitrate 30 mg tablet Commonly known as: Isordil KlonoPIN 0.5 mg tablet Generic drug: clonazePAM oxyCODONE 10 mg tablet Commonly known as: Roxicodone ranolazine ER 500 mg ER 12 hr tablet Commonly known as: Ranexa Topamax 200 mg tablet Generic drug: topiramate Zoloft 100 mg tablet Generic drug: sertraline Smoking Status at Discharge: Social History Tobacco Use Smoking Status Former Packs/day: 1.00 Years: 40.00 Additional pack years: 0.00 Total pack years: 40.00 Types: Cigarettes Quit date: 11/17/2021 Years since quittin.0 Smokeless Tobacco Never Instructions Given to Patient at Discharge: Patient Instructions You were hospitalized for heart failure exacerbation and high risk NSTEMI (heart attack). You underwent a left heart catheterization (coronary angiogram) to look for and treat blockages of the coronary arteries. Once at home, you will need to weigh yourself without clothing at the same time each day. Record your weight. You will not have a daily diuretic (water will), so it will be very important to monitor for symptoms of fluid build up. If you have a sudden weight gain, such as more than 2 to 3 pounds ventura day or 5 pounds in a week, please restart your lasix and call your doctor. A sudden weight gain may mean that your heart failure is getting worse. Your weight on day of discharge is: 235 lbs Blood Thinners on Discharge: - Continue on Eliquis for your Atrial Fibrillation - Take aspirin 81mg for 1 month (through 01/01/24). Then stop. - Continue on clopidogrel (Plavix) for 12 months. 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 Other Heart Meds - please STOP taking: amlodipine, ranolazine, isosorbide dinitrite - please START taking - metoprolol succinate 50mg twice a day - CHANGED - please take you lasix (water pill) as needed Call your doctor if: Chest pain, shortness of breath, pain or swelling in legs occurs. If you have non-emergent questions between now and the time of your follow up appointments: During 8am-5pm Tuesday through Tuesday call [phone] to speak with a nurse in the cardiology clinic All other times call [phone] and ask to speak to the teletype operator accounting professional. Return to work: One week Driving: No driving for 48 hours after catheterization. Follow up Appointments: PCP Gaudencio Scales DO [phone] December 09, 2023 at 11:15 am - please get labs done with PCP Cardiology Dr. Alejandro at [facility] December 26, 2023 at 9:40 am Home oxygen therapy: N/A Arrangements for VNA/home care: none General Instructions None Future Appointments and Orders Future Orders Complete By Expires Basic Metabolic Panel (non-fasting) [LAB15 Custom] 12/11/2023 06/11/2024 Process Instructions: Scheduling Instructions: Comments: Questions: Hemogram [[id number] Custom] 12/11/2023 06/11/2024 Process Instructions: Scheduling Instructions: Comments: Questions: Magnesium [[id number] Custom] 12/11/2023 06/11/2024 Process Instructions: Scheduling Instructions: Comments: Questions: Phosphorus [AMD424 Custom] 12/11/2023 06/11/2024 Process Instructions: Scheduling Instructions: Comments: Questions: Nebulizer (Outpatient) [[id number] Custom] As directed Process Instructions: Scheduling Instructions: Questions: Vendor Name/Contact information: Date of related mgym-he-hext encounter: Primary Indication (to support need for nebulizer): COPD Secondary indication (optional): Compressor: Desktop Small Volume Nebulizer (e.g., Drive Power Neb Ultra, InnoSpire Essence or Alondra Vios LC Sprint) Supplies: Referral to Cardiac Rehab [[id number] Custom] As directed Process Instructions: If no progress note charted, please enter Clinical details in comments. Scheduling Instructions: Questions: My question or request is: NSTEMI, staged PCI- cardiac rehab at [facility] Referral to Cardiology [REF12 Custom] As directed Process Instructions: If no progress note charted, please enter Clinical details in comments. Scheduling Instructions: Questions: My question or request is: NSTEMI s/p staged PCI Discharge References/Attachments None Greater than 30 minutes was spent on this discharge including documentation, [id number] time withthe patient, patient education, short order fry cook, coordination with pharmacy and other patient care. documented in this encounter Discharge Instructions * Patient Instructions* Arlin Jackson MD - 11/29/2023 1:33 PM EDT You were hospitalized for heart failure exacerbation and high risk NSTEMI (heart attack). You underwent a left heart catheterization (coronary angiogram) to look for and treat blockages of the coronary arteries. Once at home, you will need to weigh yourself without clothing at the same time each day. Record your weight. You will not have a daily diuretic (water will), so it will be very important to monitor for symptoms of fluid build up. If you have a sudden weight gain, such as more than 2 to 3 pounds ventura day or 5 pounds in a week, please restart your lasix and call your doctor. A sudden weight gain may mean that your heart failure is getting worse. Your weight on day of discharge is: 235 lbs Blood Thinners on Discharge: - Continue on Eliquis for your Atrial Fibrillation - Take aspirin 81mg for 1 month (through 01/01/24). Then stop. - Continue on clopidogrel (Plavix) for 12 months. 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 Other Heart Meds - please STOP taking: amlodipine, ranolazine, isosorbide dinitrite - please START taking - metoprolol succinate 50mg twice a day - CHANGED - please take you lasix (water pill) as needed Call your doctor if: Chest pain, shortness of breath, pain or swelling in legs occurs. If you have non-emergent questions between now and the time of your follow up appointments: During 8am-5pm Tuesday through Tuesday call [phone] to speak with a nurse in the cardiology clinic All other times call [phone] and ask to speak to the teletype operator accounting professional. Return to work: One week Driving: No driving for 48 hours after catheterization. Follow up Appointments: PCP Gaudencio Scales DO [phone] December 09, 2023 at 11:15 am - please get labs done with PCP Cardiology Dr. Alejandro at [facility] December 26, 2023 at 9:40 am Home oxygen therapy: N/A Arrangements for VNA/home care: none documented in this encounter Medications at Time [...] capsule 20M Capsule(s), PO, Once daily 01/12/2006 aspirin 81 mg chewable tablet Take 81 mg by mouth daily for 30 days. Through 01/01/24 30 tablet 12/02/2023 01/01/2024 furosemide (Lasix) 20 mg tablet Take 1 [...] Progress Notes * Roberth Spring RN - 12/04/2023 2:24 PM EDT I have met with the patient to: discuss discharge planning needs. provide the [facility], Office of Care Management letter from the Olericulturist pertaining to rehab referrals. provide a letter describing our affiliations within the [facility] and educate about their right to choose where referrals are sent. provide a list of Home Health Agencies / Durable Medical Equipment vendors which serve their preferred geographic area. provided patient with [facility] Star Quality Rating handout. They have requested referrals to: [facility] (Resp Supplies) Per the provider, the patient needs an nebulizer. Note routed to a Distribution Agent who will communicate referrals to facilities and provide any required information. * Angelique Michaels RN - 12/04/2023 2:06 PM EDT Discharge instructions reviewed with PT & family, all verbalize understanding. Medications reviewed. Iv and Tele discontinued. Discharged to home * Arlin Jackson MD - 2023 4:32 PM EDT [facility] - [facility] DAILY PROGRESS NOTE Page [phone] to reach a provider 11/04 Admit Date: 11/28/2023 Encounter Date 2023 Anticipated Discharge Date: 12/04/2023 Hospital Day: 5 Active Hospital Problems Diagnosis NSTEMI (non-ST elevated myocardial infarction) Resolved Hospital Problems No resolved problems to display. 24 Hour Events/Subjective: Denies current chest pain, SOB pain, R groin pain, dizziness Had oozing from R groin site today AM. Required manual pressure, re-dressing, sandbag placement. Medications: Scheduled Meds: heparin (porcine) 5,000 Units Subcutaneous Q8H COREY metoproloL tartrate 12.5 mg Oral Q6H COREY atorvastatin 80 mg Oral Daily at Noon sodium chloride 0.9 % (flush) 5 mL Intravenous BID aspirin 81 mg Oral Daily clopidogreL 75 mg Oral Daily baclofen 5 mg Oral BID lamoTRIgine 100 mg Oral BID levothyroxine 100 mcg Oral QAM pantoprazole EC 40 mg Oral Daily QUEtiapine 100 mg Oral Nightly ipratropium-albuteroL 3 mL Nebulization Q4H COREY Continuous Infusions: PRN Meds:.sodium chloride 0.9 % (flush), lidocaine, nitroGLYcerin, potassium chloride ER OR potassium chloride ER, ondansetron, oxyCODONE-acetaminophen Objective: Last value Range last 24 hrs Temp: 36.8 ??C (98.2 ??F) Temp: [36.7 ??C (98 ??F)-37 ??C (98.6 ??F)] Heart Rate: 84 Heart Rate from SpO2: 86 bpm Heart Rate: [80-101] BP: 120/62 BP: (120-153)/(60-68) Resp: 19 Resp: [15-19] SpO2: 92 % SpO2: [90 %-96 %] Height: 167.6 cm (5' 6) Weight: 109.5 kg (241 lb 4.8 oz) BMI (Calculated): 38.89 BMI Classification: Obese Admit weight: 109.3 kg Patient Vitals for the past 168 hrs: Weight 12/02/23 0415 109.5 kg (241 lb 4.8 oz) 11/30/23 0512 110.6 kg (243 lb 13.3 oz) 11/29/23 0500 108.3 kg (238 lb 12.1 oz) 11/28/23 1105 109.3 kg (240 lb 15.4 oz) Intake/Output Summary (Last 24 hours) at 2023 1633 Last data filed at 2023 1200 Gross per 24 hour Intake 725 ml Output 2300 ml Net -1575 ml Physical Exam: Examination: General: Pleasant, alert, appropriate, in NAD. Appears stated age. HEENT: EOMI, anicteric sclera. Oropharynx clear w/o lesions. Moist mucous membranes Neck: Supple with normal ROM. No obvious LAD. Cardiac: Normal S1 and S2, Regular rate and rhythm; No murmnrs/gallops/rubs. Respiratory: Nonlabored. Clear to auscultation bilaterally; No wheezes/ rhonchi/ rales. Abd: soft, non-tender, non-distended, no obvious masses. Ext: WWP without le edema, no cyanosis or clubbing. R groin with small bruising, soft, non-tender Neuro: Alert and oriented, no-focal deficits Labs: Recent Labs 12/03/23 0353 12/02/23 0309 12/01/23 0442 11/30/23 0040 11/29/23 0027 WBC 10.8* 10.8* 10.1* 16.9* 15.5* HGB 10.4* 10.1* 10.1* 9.6* 10.3* HCT 32.7* 31.3* 31.8* 30.1* 30.7* PLATELET 367* 316 258 281 286 MCV 95.3* 95.1* 96.4* 97.4* 92.2 Recent Labs 12/03/23 0353 12/02/23 0309 12/01/23 0442 11/30/23 0040 11/29/23 0930 11/29/23 0027 NA 139 141 138 141 -- 140 CL 102 105 104 106 -- 104 CO2 24 25 25 26 -- 24 K 3.8 3.9 3.9 4.0 4.4 3.7 MAGNESIUM 0.90 0.95 0.93 0.94 -- 0.89 PHOS 4.5 4.1 3.2 3.2 -- 3.1 CALCIUM 9.2 9.3 8.6 8.7 -- 8.8 BUN 14 16 19* 25* -- 19* CREATININE 1.26* 1.25* 1.20 1.65* -- 1.32* Coags Recent Labs 11/28/23 1110 INR 1.6 PT 18.5* PTT 78* Cardiac Markers Recent Labs 11/29/23 0930 11/29/23 0524 11/29/23 0027 11/28/23 1800 11/28/23 1420 11/28/23 1110 TROPONINTHS 1,592* 1,667* 1,719* 1,107* 812* 713* PROBNP -- -- -- -- -- 11,073* Endocrine Recent Labs 11/29/23 0027 11/28/23 1110 TSH -- 0.51 HA1C 5.3 -- Recent Labs 11/29/23 0027 CHLPL 139 TRIG 93 HDL 44 CHOLHDL 3.2 Recent Labs 12/03/23 0353 12/02/23 0309 12/01/23 0442 11/30/23 1058 11/30/23 0743 11/30/23 0040 11/28/23 1622 GLUCOSE 99 95 103 -- -- < > -- POCGLU -- -- -- 143 118 -- 155 < > = values in this interval not displayed. Telemetry: I have personally reviewed and interpreted the telemetry from the last 24 hours. Resultsshow sinus HR 80-100s. Imaging: TTE on 11/28/23 -Left ventricular systolic function is mildly reduced. The left ventricular ejection fraction is 44% by Guzman's biplane. There are segmental wall motion abnormalities which are in an RCA distribution (inferior, inferoseptal predominantly-see attached PDF). No thrombus. -Right ventricular systolic function is normal. The estimated RVSP is 42mmhg. -There is an aortic bioprosthesis (size/type unknown, reported to have been placed in 2021) which appears to be functioning normally. Mean gradient 5mmHg. No regurgitation. -There is moderate mitral regurgitation which is both central and anteriorly directed. The leaflets are not well visualized. The mechanism of the MR is unclear with the available data. No prior images for comparison. See report for additional findings. [facility] 11/28/23 Coronary Angiography: Anatomically normal right dominant circulation [...] s/p a single 3.5 x 22 mm [place] CRIS. - High grade distal LM and [...] catheterization labin stable condition without apparent complications. Assessment: ID: Oksana Betancourt is a 57 y.o. female w/ PMH of history of triple vessel CAD s/p staged PCI in [place] in -03/2022 (with CRIS x1 to mid-RCA, CRIS x2 to ostial RCA, CRIS x1 to ostial LCX, and CRIS x1 to mid-LCX), severe s/p TAVR in 2021, baseline LBBB, HLD, HTN, Hodgkin lymphoma s/p radiation, CKD IIIb, bipolar disorder, COPD, and hypothyroidism on Hospital Day1 for high-risk NSTEMI. In CVCC- 11/28: Underwent cath yesterday, now s/p stent to RCA. Plan to confirm porcelain aorta on CT chest non con today. Consult CT surgery to discuss bypass if possible. If not surgical candidate,consider further stenting later this week. Pt required BIPAP likely d/t chf exacerbation, weaned to NC after IV duresis. Now on RA after duoneb treatments, Plan for PCI to LM and LAD 12/01. 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 TSH normal, A1C 5.3%, trops peaked around 1700 and downtrended. Pt underwent PCI to RCA on 11/28/23. Pt planned for repeat LHC to PCI L sided coronaries tmrw given scheduling issues and continuity of specialist (Dr. Hargrove) - Loaded with ASA 325 and Plavix 600 at OSH - EKG at OSH showed known LBBB, did not meet Sgarbossa criteria - Heparin gtt until intervention - C/w lipitor 80 mg daily - C/w home amlodipine - ASA 81 mg - Plavix 75 mg - Nitro and EKG PRN per chest pain protocol - s/p LHC 12/01 with PCI of LAD and LM - small amount oozing from R going site 12/02 AM requiring manual pressure, re- dressing, and sandbag. #Acute HFmEF (EF 44%) Monitor for ONOFRE as last LHC was on 11/28/23 - BNP 11,000 on admission - Diuresed with IV lasix in CVCC - last dose 11/29/23 - Metoprolol 12.5 mg Q6H #JONATHAN on CKD3b- improving - Baseline Cr ~1.1-1.2 - Daily BMP #Acute Hypoxic Respiratory Failure 2/2 Heart Failure Exacerbation- resolved - weaned off BIPAP, now on RA - Diuresis plan as above #COPD #Previous tobacco use - Reports being on a nebulizer at home - Duonebs Q4H - pt noted long hx of smoking, no longer uses tobacco. Did not know she had COPD. #GERD - Pantoprazole 40 daily for home omeprazole - Zofran PRN #History of Hodgkin Lymphoma s/p radiation - Daily CBC - In remission #Hypothyroidism - continue levothyroxine 100 mcg daily - TSH 0.51 on admission #Bipolar Disorder - Continue home quetiapine 100 mg nightly - Continue home lamotrigine 100 mg BID #Chronic Pain - Baclofen 5 mg BID - Continue home oxycodone-acetaminophen 10-650 mg q8h PRN Diet: Cardiac diet DVT Prophylaxis: heparin gtt Code status: Attempt Cardiopulmonary Resuscitation - Inpatient Disposition: Discharge Location: home tomorrow pending stability of R groin access site AM- PAC Basic Mobility Raw Score: 23 PT: OT: PCP Gaudencio Scales DO [phone] Arlin Jackson MD 2023 * Arlin Jackson MD - 12/02/2023 10:49 AM EDT [facility] HOSPITALIST 1 - [facility] DAILY PROGRESS NOTE Page [phone] to reach a provider 11/04 Admit Date: 11/28/2023 Encounter Date December 02, 2023 Anticipated Discharge Date: 2023 Hospital Day: 4 Active Hospital Problems Diagnosis NSTEMI (non-ST elevated myocardial infarction) Resolved Hospital Problems No resolved problems to display. 24 Hour Events/Subjective: Denies current chest pain, SOB pain, R groin pain, dizziness Plan for staged PCI today Medications: Scheduled Meds: metoproloL tartrate 12.5 mg Oral Q6H COREY atorvastatin 80 mg Oral Daily at Noon sodium chloride 0.9 % (flush) 5 mL Intravenous BID aspirin 81 mg Oral Daily clopidogreL 75 mg Oral Daily baclofen 5 mg Oral BID lamoTRIgine 100 mg Oral BID levothyroxine 100 mcg Oral QAM pantoprazole EC 40 mg Oral Daily QUEtiapine 100 mg Oral Nightly ipratropium-albuteroL 3 mL Nebulization Q4H COREY Continuous Infusions: sodium chloride 0.9% 100 mL/hr (12/02/23 1515) heparin (porcine) infusion Stopped (12/02/23 1100) PRN Meds:.sodium chloride 0.9 % (flush), lidocaine, nitroGLYcerin, heparin (porcine) infusion AND heparin (porcine), potassium chloride ER OR potassium chloride ER, ondansetron, oxyCODONE-acetaminophen Objective: Last value Range last 24 hrs Temp: 36.8 ??C (98.2 ??F) Temp: [36.4 ??C (97.6 ??F)-37 ??C (98.6 ??F)] Heart Rate: 84 Heart Rate from SpO2: 97 bpm Heart Rate: [81-100] BP: 153/73 BP: (89-153)/(58-74) Resp: 22 Resp: [12-28] SpO2: 95 % SpO2: [90 %-98 %] Height: 167.6 cm (5' 6) Weight: 109.5 kg (241 lb 4.8 oz) BMI (Calculated): 38.89 BMI Classification: Obese Admit weight: 109.3 kg Patient Vitals for the past 168 hrs: Weight 12/02/23 0415 109.5 kg (241 lb 4.8 oz) 11/30/23 0512 110.6 kg (243 lb 13.3 oz) 11/29/23 0500 108.3 kg (238 lb 12.1 oz) 11/28/23 1105 109.3 kg (240 lb 15.4 oz) Intake/Output Summary (Last 24 hours) at 12/02/2023 1651 Last data filed at 12/02/2023 1430 Gross per 24 hour Intake 839 ml Output 5100 ml Net -4261 ml Physical Exam: Examination: General: Pleasant, alert, appropriate, in NAD. Appears stated age. HEENT: EOMI, anicteric sclera. Oropharynx clear w/o lesions. Moist mucous membranes Neck: Supple with normal ROM. No obvious LAD. Cardiac: Normal S1 and S2, Regular rate and rhythm; No murmnrs/gallops/rubs. Respiratory: Nonlabored. Clear to auscultation bilaterally; No wheezes/ rhonchi/ rales. Abd: soft, non-tender, non-distended, no obvious masses. Ext: WWP without le edema, no cyanosis or clubbing Neuro: Alert and oriented, no-focal deficits Labs: Recent Labs 12/02/23 0309 12/01/23 0442 11/30/23 0040 11/29/23 0027 11/28/23 1526 11/28/23 1110 WBC 10.8* 10.1* 16.9* 15.5* -- 14.0* HGB 10.1* 10.1* 9.6* 10.3* -- 11.0* HCT 31.3* 31.8* 30.1* 30.7* 29.0* 33.2* PLATELET 316 258 281 286 -- 293 MCV 95.1* 96.4* 97.4* 92.2 -- 92.5 Recent Labs 12/02/23 0309 12/01/23 0442 11/30/23 0040 11/29/23 0930 11/29/23 0027 11/28/23 1800 11/28/23 1110 NA 141 138 141 -- 140 -- 139 CL 105 104 106 -- 104 -- 103 CO2 25 25 26 -- 24 -- 23 K 3.9 3.9 4.0 4.4 3.7 < > 3.6 MAGNESIUM 0.95 0.93 0.94 -- 0.89 -- 0.84 PHOS 4.1 3.2 3.2 -- 3.1 -- 3.1 CALCIUM 9.3 8.6 8.7 -- 8.8 -- 9.1 BUN 16 19* 25* -- 19* -- 17 CREATININE 1.25* 1.20 1.65* -- 1.32* -- 1.26* < > = values in this interval not displayed. Coags Recent Labs 11/28/23 1110 INR 1.6 PT 18.5* PTT 78* Cardiac Markers Recent Labs 11/29/23 0930 11/29/23 0524 11/29/23 0027 11/28/23 1800 11/28/23 1420 11/28/23 1110 TROPONINTHS 1,592* 1,667* 1,719* 1,107* 812* 713* PROBNP -- -- -- -- -- 11,073* Endocrine Recent Labs 11/29/23 0027 11/28/23 1110 TSH -- 0.51 HA1C 5.3 -- Recent Labs 11/29/23 0027 CHLPL 139 TRIG 93 HDL 44 CHOLHDL 3.2 Recent Labs 12/02/23 0309 12/01/23 0442 11/30/23 1058 11/30/23 0743 11/30/23 0040 11/28/23 1622 GLUCOSE 95 103 -- -- 115 -- POCGLU -- -- 143 118 -- 155 Telemetry: I have personally reviewed and interpreted the telemetry from the last 24 hours. Resultsshow sinus HR 70-90s. Imaging: TTE on 11/28/23 -Left ventricular systolic function is mildly reduced. The left ventricular ejection fraction is 44% by Guzman's biplane. There are segmental wall motion abnormalities which are in an RCA distribution (inferior, inferoseptal predominantly-see attached PDF). No thrombus. -Right ventricular systolic function is normal. The estimated RVSP is 42mmhg. -There is an aortic bioprosthesis (size/type unknown, reported to have been placed in 2021) which appears to be functioning normally. Mean gradient 5mmHg. No regurgitation. -There is moderate mitral regurgitation which is both central and anteriorly directed. The leaflets are not well visualized. The mechanism of the MR is unclear with the available data. No prior images for comparison. See report for additional findings. [facility] 11/28/23 Coronary Angiography: Anatomically normal right dominant circulation [...] a single 3.5 x 22 mm [place] CRIS. - High grade distal LM and [...] catheterization labin stable condition without apparent complications. Assessment: ID: Oksana Betancourt is a 57 y.o. female w/ PMH of history of triple vessel CAD s/p staged PCI in [place] in -03/2022 (with CRIS x1 to mid-RCA, CRIS x2 to ostial RCA, CRIS x1 to ostial LCX, and CRIS x1 to mid-LCX), severe s/p TAVR in 2021, baseline LBBB, HLD, HTN, Hodgkin lymphoma s/p radiation, CKD IIIb, bipolar disorder, COPD, and hypothyroidism on Hospital Day1 for high-risk NSTEMI. In CVCC- 11/28: Underwent cath yesterday, now s/p stent to RCA. Plan to confirm porcelain aorta on CT chest non con today. Consult CT surgery to discuss bypass if possible. If not surgical candidate,consider further stenting later this week. Pt required BIPAP likely d/t chf exacerbation, weaned to NC after IV duresis. Now on RA after duoneb treatments, Plan for PCI to LM and LAD 12/01. 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 TSH normal, A1C 5.3%, trops peaked around 1700 and downtrended. Pt underwent PCI to RCA on 11/28/23. Pt planned for repeat LHC to PCI L sided coronaries tmrw given scheduling issues and continuity of specialist (Dr. Hargrove) - Loaded with ASA 325 and Plavix 600 at OSH - EKG at OSH showed known LBBB, did not meet Sgarbossa criteria - Heparin gtt until intervention - C/w lipitor 80 mg daily - C/w home amlodipine - ASA 81 mg - Plavix 75 mg - Nitro and EKG PRN per chest pain protocol - s/p LHC 12/01 with PCI of LAD and LM #Acute HFmEF (EF 44%) Monitor for ONOFRE as last LHC was on 11/28/23 - BNP 11,000 on admission - Diuresed with IV lasix in CVCC - last dose 11/29/23 - Metoprolol 12.5 mg Q6H #JONATHAN on CKD3b- improving - Baseline Cr ~1.1-1.2 - Daily BMP #Acute Hypoxic Respiratory Failure 2/2 Heart Failure Exacerbation- resolved - weaned off BIPAP, now on RA - Diuresis plan as above #COPD #Previous tobacco use - Reports being on a nebulizer at home - Duonebs Q4H - pt noted long hx of smoking, no longer uses tobacco. Did not know she had COPD. #GERD - Pantoprazole 40 daily for home omeprazole - Zofran PRN #History of Hodgkin Lymphoma s/p radiation - Daily CBC - In remission #Hypothyroidism - continue levothyroxine 100 mcg daily - TSH 0.51 on admission #Bipolar Disorder - Continue home quetiapine 100 mg nightly - Continue home lamotrigine 100 mg BID #Chronic Pain - Baclofen 5 mg BID - Continue home oxycodone-acetaminophen 10-650 mg q8h PRN Diet: Cardiac diet DVT Prophylaxis: heparin gtt Code status: Attempt Cardiopulmonary Resuscitation - Inpatient Disposition: Discharge Location: AM-PAC Basic Mobility Raw Score: 23 PT: OT: PCP Gaudencio Scales DO [phone] Arlin Jackson MD 12/02/2023 * Jose Souza DO - 12/01/2023 8:46 AM EDT CV HOSPITALIST 1 - [facility] DAILY PROGRESS NOTE Page [phone] to reach a provider 11/04 Admit Date: 11/28/2023 Encounter Date December 01, 2023 Anticipated Discharge Date: 2023 Hospital Day: 3 Active Hospital Problems Diagnosis NSTEMI (non-ST elevated myocardial infarction) Resolved Hospital Problems No resolved problems to display. 24 Hour Events/Subjective: Transfer from [facility] on 11/29/23 -Pt doing well today, notes significant improvement in SOB and heaviness prev feeling on L side. Denies CP, palpitations, chest pressure, dizziness, edema -Understands plan for [facility] tmrw Medications: Scheduled Meds: metoproloL tartrate 12.5 mg Oral Q6H COREY atorvastatin 80 mg Oral Daily at Noon sodium chloride 0.9 % (flush) 5 mL Intravenous BID aspirin 81 mg Oral Daily clopidogreL 75 mg Oral Daily baclofen 5 mg Oral BID lamoTRIgine 100 mg Oral BID levothyroxine 100 mcg Oral QAM pantoprazole EC 40 mg Oral Daily QUEtiapine 100 mg Oral Nightly ipratropium-albuteroL 3 mL Nebulization Q4H [facility] Continuous Infusions: heparin (porcine) infusion 400 Units/hr (12/01/23 0144) PRN Meds:.sodium chloride 0.9 % (flush), lidocaine, nitroGLYcerin, heparin (porcine) infusion AND heparin (porcine), potassium chloride ER OR potassium chloride ER, ondansetron, oxyCODONE-acetaminophen, atropine Objective: Last value Range last 24 hrs Temp: 36.8 ??C (98.2 ??F) Temp: [36.7 ??C (98.1 ??F)-37.1 ??C (98.8 ??F)] Heart Rate: 89 Heart Rate from SpO2: 93 bpm Heart Rate: [89-109] BP: 119/63 BP: (119-144)/(59-75) Resp: 21 Resp: [18-24] SpO2: 91 % SpO2: [87 %-94 %] Height: 167.6 cm (5' 6) Weight: 110.6 kg (243 lb 13.3 oz) BMI (Calculated): 38.89 BMI Classification: Obese Admit weight: 109.3 kg Patient Vitals for the past 168 hrs: Weight 11/30/23 0512 110.6 kg (243 lb 13.3 oz) 11/29/23 0500 108.3 kg (238 lb 12.1 oz) 11/28/23 1105 109.3 kg (240 lb 15.4 oz) Intake/Output Summary (Last 24 hours) at 12/01/2023 0846 Last data filed at 12/01/2023 0843 Gross per 24 hour Intake 350 ml Output 1550 ml Net -1200 ml Physical Exam: Examination: General: Pleasant, alert, appropriate, in NAD. Appears stated age. HEENT: EOMI, anicteric sclera. Oropharynx clear w/o lesions. Moist mucous membranes Neck: Supple with normal ROM. No obvious LAD. Cardiac: Normal S1 and S2, Regular rate and rhythm; No murmnrs/gallops/rubs. Respiratory: Nonlabored. Clear to auscultation bilaterally; No wheezes/ rhonchi/ rales. Abd: soft, non-tender, non-distended, no obvious masses. Ext: WWP without le edema, no cyanosis or clubbing Neuro: Alert and oriented, no-focal deficits Labs: Recent Labs 12/01/23 0442 11/30/23 0040 11/29/23 0027 11/28/23 1110 WBC 10.1* 16.9* 15.5* 14.0* HGB 10.1* 9.6* 10.3* 11.0* HCT 31.8* 30.1* 30.7* 33.2* PLATELET 258 281 286 293 MCV 96.4* 97.4* 92.2 92.5 Recent Labs 12/01/23 0442 11/30/23 0040 11/29/23 0930 11/29/23 0027 11/28/23 1800 11/28/23 1110 NA 138 141 -- 140 -- 139 CL 104 106 -- 104 -- 103 CO2 25 26 -- 24 -- 23 K 3.9 4.0 4.4 3.7 3.7 3.6 MAGNESIUM 0.93 0.94 -- 0.89 -- 0.84 PHOS 3.2 3.2 -- 3.1 -- 3.1 CALCIUM 8.6 8.7 -- 8.8 -- 9.1 BUN 19* 25* -- 19* -- 17 CREATININE 1.20 1.65* -- 1.32* -- 1.26* Coags Recent Labs 11/28/23 1110 INR 1.6 PT 18.5* PTT 78* Cardiac Markers Recent Labs 11/29/23 0930 11/29/23 0524 11/29/23 0027 11/28/23 1800 11/28/23 1420 11/28/23 1110 TROPONINTHS 1,592* 1,667* 1,719* 1,107* 812* 713* PROBNP -- -- -- -- -- 11,073* Endocrine Recent Labs 11/29/23 0027 11/28/23 1110 TSH -- 0.51 HA1C 5.3 -- Recent Labs 11/29/23 0027 CHLPL 139 TRIG 93 HDL 44 CHOLHDL 3.2 Recent Labs 12/01/23 0442 11/30/23 1058 11/30/23 0743 11/30/23 0040 11/28/23 1622 11/28/23 1110 GLUCOSE 103 -- -- 115 -- 151 POCGLU -- 143 118 -- 155 -- EKG: NSR with new LBBB (admission EKG, prior to [facility]) Telemetry: I have personally reviewed and interpreted the telemetry from the last 24 hours. Resultsshow NSR HR 80-90s. Imaging: TTE on 11/28/23 -Left ventricular systolic function is mildly reduced. The left ventricular ejection fraction is 44% by Guzman's biplane. There are segmental wall motion abnormalities which are in an RCA distribution (inferior, inferoseptal predominantly-see attached PDF). No thrombus. -Right ventricular systolic function is normal. The estimated RVSP is 42mmhg. -There is an aortic bioprosthesis (size/type unknown, reported to have been placed in 2021) which appears to be functioning normally. Mean gradient 5mmHg. No regurgitation. -There is moderate mitral regurgitation which is both central and anteriorly directed. The leaflets are not well visualized. The mechanism of the MR is unclear with the available data. No prior images for comparison. See report for additional findings. [facility] 11/28/23 Coronary Angiography: Anatomically normal right dominant circulation [...] a single 3.5 x 22 mm [place] CRIS. - High grade distal LM and [...] catheterization labin stable condition without apparent complications. Assessment: ID: Oksana Betancourt is a 57 y.o. female w/ PMH of history of triple vessel CAD s/p staged PCI in [place] in -03/2022 (with CRIS x1 to mid-RCA, CRIS x2 to ostial RCA, CRIS x1 to ostial LCX, and CRIS x1 to mid-LCX), severe s/p TAVR in 2021, baseline LBBB, HLD, HTN, Hodgkin lymphoma s/p radiation, CKD IIIb, bipolar disorder, COPD, and hypothyroidism on Hospital Day1 for high-risk NSTEMI. In CVCC- 11/28: Underwent cath yesterday, now s/p stent to RCA. Plan to confirm porcelain aorta on CT chest non con today. Consult CT surgery to discuss bypass if possible. If not surgical candidate,consider further stenting later this week. Pt required BIPAP likely d/t chf exacerbation, weaned to NC after IV duresis. Now on RA after duoneb treatments, Plan for PCI to LM and LAD tomorrow, [facility] deferred today d/t cath schedule, stability of pt, and continuity of interventional specialist as Dr. Hargrove is on schedule for laboratory equipment cleaner tomorrow. 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 TSH normal, A1C 5.3%, trops peaked around 1700 and downtrended. Pt underwent PCI to RCA on 11/28/23. Pt planned for repeat [facility] to PCI L sided coronaries tmrw given scheduling issues and continuity of specialist (Dr. Hargrove) - Loaded with ASA 325 and Plavix 600 at OSH - EKG at OSH showed known LBBB, did not meet Sgarbossa criteria - Heparin gtt until intervention - C/w lipitor 80 mg daily - C/w home amlodipine - ASA 81 mg - Plavix 75 mg - Nitro and EKG PRN per chest pain protocol - NPO PM for [facility] tmrw of LAD and LCA #Acute HFmEF (EF 44%) Monitor for ONOFRE as last [facility] was on 11/28/23 - BNP 11,000 on admission - Diuresed with IV lasix in CVCC - Diuretics held yesterday and today given jonathan and plan for [facility] tmrw - Metoprolol 12.5 mg Q6H #JONATHAN on CKD3b- improving - Baseline Cr ~1.1-1.2 - Daily BMP - Diuretics held, [facility] tmrw #Acute Hypoxic Respiratory Failure 2/2 Heart Failure Exacerbation- resolved - weaned off BIPAP, now on RA - Diuresis plan as above #COPD #Previous tobacco use - Reports being on a nebulizer at home - Duonebs Q4H - pt noted long hx of smoking, no longer uses tobacco. Did not know she had COPD. #GERD - Pantoprazole 40 daily for home omeprazole - Zofran PRN #History of Hodgkin Lymphoma s/p radiation - Daily CBC - In remission #Hypothyroidism - continue levothyroxine 100 mcg daily - TSH 0.51 on admission #Bipolar Disorder - Continue home quetiapine 100 mg nightly - Continue home lamotrigine 100 mg BID #Chronic Pain - Baclofen 5 mg BID - Continue home oxycodone-acetaminophen 10-650 mg q8h PRN Diet: Daily Healthy Menu Choices/Cardiac diet ([facility] [place]-Diet) NPO diet (Give Meds) DVT Prophylaxis: DOAC Code status: Attempt Cardiopulmonary Resuscitation - Inpatient Disposition: Discharge Location: AM-[facility] Basic Mobility Raw Score: 23 PT: OT: PCP Gaudencio Scales DO [phone] Jose Souza DO 12/01/2023 * Jose Souza DO - 11/30/2023 5:07 PM EDT CV HOSPITALIST 1 - [facility] DAILY PROGRESS NOTE Page [phone] to reach a provider 11/04 Admit Date: 11/28/2023 Encounter Date November 30, 2023 Anticipated Discharge Date: 12/02/2023 Hospital Day: 2 Active Hospital Problems Diagnosis NSTEMI (non-ST elevated myocardial infarction) Resolved Hospital Problems No resolved problems to display. 24 Hour Events/Subjective: Transfer from [facility] on 11/29/23 -Pt doing well today, notes some SOB and heaviness feeling on L side but states its improved since arrival. Denies CP, palpitations, chest pressure, dizziness, edema -Understands plan for [facility] tmrw given kidney fx is reduced today Medications: Scheduled Meds: metoproloL tartrate 12.5 mg Oral Q6H COREY atorvastatin 80 mg Oral Daily at Noon sodium chloride 0.9 % (flush) 5 mL Intravenous BID aspirin 81 mg Oral Daily clopidogreL 75 mg Oral Daily baclofen 5 mg Oral BID lamoTRIgine 100 mg Oral BID levothyroxine 100 mcg Oral QAM pantoprazole EC 40 mg Oral Daily QUEtiapine 100 mg Oral Nightly ipratropium-albuteroL 3 mL Nebulization Q4H COREY Continuous Infusions: lactated Ringers heparin (porcine) infusion 400 Units/hr (11/29/23 1900) PRN Meds:.sodium chloride 0.9 % (flush), lidocaine, nitroGLYcerin, heparin (porcine) infusion AND heparin (porcine), potassium chloride ER OR potassium chloride ER, ondansetron, oxyCODONE-acetaminophen, atropine Objective: Last value Range last 24 hrs Temp: 36.7 ??C (98.1 ??F) Temp: [36.6 ??C (97.8 ??F)-37.2 ??C (99 ??F)] Heart Rate: 100 Heart Rate from SpO2: 97 bpm Heart Rate: [89-118] BP: 119/71 BP: (119-143)/(62-93) Resp: 24 Resp: [17-30] SpO2: 90 % SpO2: [88 %-96 %] Height: 167.6 cm (5' 6) Weight: 110.6 kg (243 lb 13.3 oz) BMI (Calculated): 38.89 BMI Classification: Obese Admit weight: 109.3 kg Patient Vitals for the past 168 hrs: Weight 11/30/23 0512 110.6 kg (243 lb 13.3 oz) 11/29/23 0500 108.3 kg (238 lb 12.1 oz) 11/28/23 1105 109.3 kg (240 lb 15.4 oz) Intake/Output Summary (Last 24 hours) at 11/30/2023 1707 Last data filed at 11/30/2023 1604 Gross per 24 hour Intake 425 ml Output 2350 ml Net -1925 ml Physical Exam: Examination: General: Pleasant, alert, appropriate, in NAD. Appears stated age. HEENT: EOMI, anicteric sclera. Oropharynx clear w/o lesions. Moist mucous membranes Neck: Supple with normal ROM. No obvious LAD. JVD not present Cardiac: Normal S1 and S2, Regular rate and rhythm; No murmnrs/gallops/rubs. Respiratory: Nonlabored. Clear to auscultation bilaterally; No wheezes/ rhonchi/ rales. Abd: soft, non-tender, non-distended, no obvious masses. Ext: WWP without le edema, no cyanosis or clubbing. Cath sites (R radial and R femoral) neg for hematoma, strong pulse Neuro: Alert and oriented, no-focal deficits Labs: Recent Labs 11/30/23 0040 11/29/23 0027 11/28/23 1110 WBC 16.9* 15.5* 14.0* HGB 9.6* 10.3* 11.0* HCT 30.1* 30.7* 33.2* PLATELET 281 286 293 MCV 97.4* 92.2 92.5 Recent Labs 11/30/23 0040 11/29/23 0930 11/29/23 0027 11/28/23 1800 11/28/23 1110 NA 141 -- 140 -- 139 CL 106 -- 104 -- 103 CO2 26 -- 24 -- 23 K 4.0 4.4 3.7 3.7 3.6 MAGNESIUM 0.94 -- 0.89 -- 0.84 PHOS 3.2 -- 3.1 -- 3.1 CALCIUM 8.7 -- 8.8 -- 9.1 BUN 25* -- 19* -- 17 CREATININE 1.65* -- 1.32* -- 1.26* Coags Recent Labs 11/28/23 1110 INR 1.6 PT 18.5* PTT 78* Cardiac Markers Recent Labs 11/29/23 0930 11/29/23 0524 11/29/23 0027 11/28/23 1800 11/28/23 1420 11/28/23 1110 TROPONINTHS 1,592* 1,667* 1,719* 1,107* 812* 713* PROBNP -- -- -- -- -- 11,073* Endocrine Recent Labs 11/29/23 0027 11/28/23 1110 TSH -- 0.51 HA1C 5.3 -- Recent Labs 11/29/23 002 CHLPL 139 TRIG 93 HDL 44 CHOLHDL 3.2 Recent Labs 11/30/23 1058 11/30/23 0743 11/30/23 0040 11/28/23 1622 11/28/23 1110 GLUCOSE -- -- 115 -- 151 POCGLU 143 118 -- 155 -- EKG: NSR with new LBBB (admission EKG, prior to [facility]) Telemetry: I have personally reviewed and interpreted the telemetry from the last 24 hours. Resultsshow NSR HR 80-90s. Imaging: No results found for this visit on 11/28/23 (from the past 24 hour(s)). TTE showed LVEF of 44% with RCA WMA, normal RV function, well functioning CoreValve TAVR, moderate MR [facility]- cardiac cath, found to have 90% distal left main lesion, 90% ostial LAD lesion, patent stents of LCx, 90% ostial and proximal RCA dx Coronary Angiography: Anatomically normal right dominant circulation [...] s/p a single 3.5 x 22 mm [place] CRIS. - High grade distal LM and [...] catheterization labin stable condition without apparent complications. Assessment: ID: Oksana Betancourt is a 57 y.o. female w/ PMH of history of triple vessel CAD s/p staged PCI in [place] in -03/2022 (with CRIS x1 to mid-RCA, CRIS x2 to ostial RCA, CRIS x1 to ostial LCX, and CRIS x1 to mid-LCX), severe s/p TAVR in 2021, baseline LBBB, HLD, HTN, Hodgkin lymphoma s/p radiation, CKD IIIb, bipolar disorder, COPD, and hypothyroidism on Hospital Day1 for high-risk NSTEMI. In CV- 11/28: Underwent cath yesterday, now s/p stent to RCA. Plan to confirm porcelain aorta on CT chest non con today. Consult CT surgery to discuss bypass if possible. If not surgical candidate,consider further stenting later this week. Pt required BIPAP likely d/t chf exacerbation, weaned to NC after IV duresis. Plan for PCI to LM and LAD tomorrow, held off today due to JONATHAN. 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 TSH normal, A1C 5.3%, trops peaked around 1700 and downtrended. Pt planned for repeat LHC to PCI L sided coronaries tmrw if kidney fx improves. - Loaded with ASA 325 and Plavix 600 at OSH - EKG at OSH showed known LBBB, did not meet Sgarbossa criteria - Heparin gtt - Atorvastatin increased to 80 mg daily - ASA 81 mg - Plavix 75 mg - Nitro and EKG PRN per chest pain protocol - NPO PM for LHC tmrw of LAD and LCA #Acute HFmEF (EF 44%) - BNP 11,000 on admission - Diurese with IV lasix 40 x1 in CVCC, will reasses and spot dose diuresis in AM - Diuretic holiday today given jonathan and plan for LHC tmrw - Metoprolol 12.5 mg Q6H #Hypertension - Holding home amlodipine #Acute Hypoxic Respiratory Failure 2/2 Heart Failure Exacerbation - weaned off BIPAP, now on LFNC - Diuresis with IV lasix as above - CXR 11/27 showed pulmonary edema and bilateral pleural effusions #COPD #Previous tobacco use - Reports being on a nebulizer at home - Duonebs Q4H - pt noted long hx of smoking, no longer uses tobacco. Did not know she had COPD. #JONATHAN on CKD3b - Baseline Cr ~1.1-1.2 - Daily BMP - Slow overnight hydration while pt is NPO #GERD - Pantoprazole 40 daily for home omeprazole - Zofran PRN #History of Hodgkin Lymphoma s/p radiation - Daily CBC - In remission #Hypothyroidism - continue levothyroxine 100 mcg daily - TSH 0.51 on admission #Bipolar Disorder - Continue home quetiapine 100 mg nightly - Continue home lamotrigine 100 mg BID #Chronic Pain - Baclofen 5 mg BID - Continue home oxycodone-acetaminophen 10-650 mg q8h PRN Diet: Daily Healthy Menu Choices/Cardiac diet ([facility]-Diet) NPO diet (Give Meds) DVT Prophylaxis: DOAC Code status: Attempt Cardiopulmonary Resuscitation - Inpatient Disposition: Discharge Location: AM-PAC Basic Mobility Raw Score: 23 PT: OT: PCP Gaudencio Scales, Jose Souza DO 11/30/2023 * Marie Ho RCP - 11/29/2023 5:38 PM EDT 11/29/23 1553 Oxygen Therapy O2 Device NC O2 Flow Rate (L/min) 1 L/min SpO2 93 % Resp 19 Pt on 1L eddie well Pt receiving duoneb q 4 B/S wheezes Will continue to monitor pt 11/27 cxr Interstitial edema and small pleural effusions * Jose Souza DO - 11/29/2023 3:13 PM EDT CV HOSPITALIST 1 - [facility] DAILY PROGRESS NOTE Page [phone] to reach a provider 11/04 Admit Date: 11/28/2023 Encounter Date November 29, 2023 Anticipated Discharge Date: 11/30/2023 Hospital Day: 1 Active Hospital Problems Diagnosis NSTEMI (non-ST elevated myocardial infarction) Resolved Hospital Problems No resolved problems to display. 24 Hour Events/Subjective: Transfer from CVCC S/p PCI to RCA -Pt diuresed yesterday with lasix 40 mg IV x1 and lasix 80 mg IV x1 -Pt doing well today, notes some SOB but states its improved since arrival. Denies CP, palpitations, chest pressure, dizziness, edema -Understands plan for [facility] tmrw Medications: Scheduled Meds: metoproloL tartrate 12.5 mg Oral Q6H COREY atorvastatin 80 mg Oral Daily at Noon sodium chloride 0.9 % (flush) 5 mL Intravenous BID aspirin 81 mg Oral Daily clopidogreL 75 mg Oral Daily baclofen 5 mg Oral BID lamoTRIgine 100 mg Oral BID levothyroxine 100 mcg Oral QAM pantoprazole EC 40 mg Oral Daily QUEtiapine 100 mg Oral Nightly ipratropium-albuteroL 3 mL Nebulization Q4H COREY Continuous Infusions: heparin (porcine) infusion 450 Units/hr (11/29/23 1400) PRN Meds:.sodium chloride 0.9 % (flush), lidocaine, nitroGLYcerin, heparin (porcine) infusion AND heparin (porcine), potassium chloride ER OR potassium chloride ER, ondansetron, oxyCODONE-acetaminophen, atropine Objective: Last value Range last 24 hrs Temp: 36.7 ??C (98.1 ??F) Temp: [36.6 ??C (97.9 ??F)-36.7 ??C (98.1 ??F)] Heart Rate: 92 Heart Rate from SpO2: 89 bpm Heart Rate: [81-102] BP: 134/70 BP: (121-170)/(57-96) Resp: 16 Resp: [13-26] SpO2: 94 % SpO2: [92 %-100 %] Height: 167.6 cm (5' 6) Weight: 108.3 kg (238 lb 12.1 oz) BMI (Calculated): 38.89 BMI Classification: Obese Admit weight: 109.3 kg Patient Vitals for the past 168 hrs: Weight 11/29/23 0500 108.3 kg (238 lb 12.1 oz) 11/28/23 1105 109.3 kg (240 lb 15.4 oz) Intake/Output Summary (Last 24 hours) at 11/29/2023 1513 Last data filed at 11/29/2023 1400 Gross per 24 hour Intake 1238.52 ml Output 1650 ml Net -411.48 ml Physical Exam: Examination: General: Pleasant, alert, appropriate, in NAD. Appears stated age. HEENT: EOMI, anicteric sclera. Oropharynx clear w/o lesions. Moist mucous membranes Neck: Supple with normal ROM. No obvious LAD. JVD not present Cardiac: Normal S1 and S2, Regular rate and rhythm; No murmnrs/gallops/rubs. Respiratory: Nonlabored. Clear to auscultation bilaterally; No wheezes/ rhonchi/ rales. Abd: soft, non-tender, non-distended, no obvious masses. Ext: WWP without le edema, no cyanosis or clubbing. Cath sites (R radial and R femoral) neg for hematoma, strong pulse Neuro: Alert and oriented, no-focal deficits Labs: Recent Labs 11/29/23 0027 11/28/23 1110 WBC 15.5* 14.0* HGB 10.3* 11.0* HCT 30.7* 33.2* PLATELET 286 293 MCV 92.2 92.5 Recent Labs 11/29/23 0930 11/29/23 0027 11/28/23 1800 11/28/23 1110 NA -- 140 -- 139 CL -- 104 -- 103 CO2 -- 24 -- 23 K 4.4 3.7 3.7 3.6 MAGNESIUM -- 0.89 -- 0.84 PHOS -- 3.1 -- 3.1 CALCIUM -- 8.8 -- 9.1 BUN -- 19* -- 17 CREATININE -- 1.32* -- 1.26* Coags Recent Labs 11/28/23 1110 INR 1.6 PT 18.5* PTT 78* Cardiac Markers Recent Labs 11/29/23 0930 11/29/23 0524 11/29/23 0027 11/28/23 1800 11/28/23 1420 11/28/23 1110 TROPONINTHS 1,592* 1,667* 1,719* 1,107* 812* 713* PROBNP -- -- -- -- -- 11,073* Endocrine Recent Labs 11/29/23 0027 11/28/23 1110 TSH -- 0.51 HA1C 5.3 -- Recent Labs 11/29/23 002 CHLPL 139 TRIG 93 HDL 44 CHOLHDL 3.2 Recent Labs 11/28/23 1622 11/28/23 1110 GLUCOSE -- 151 POCGLU 155 -- EKG: NSR with new LBBB (admission EKG, prior to [facility]) Telemetry: I have personally reviewed and interpreted the telemetry from the last 24 hours. Resultsshow NSR HR 80-90s. Imaging: No results found for this visit on 11/28/23 (from the past 24 hour(s)). TTE showed LVEF of 44% with RCA WMA, normal RV function, well functioning CoreValve TAVR, moderate MR LHC- cardiac cath, found to have 90% distal left main lesion, 90% ostial LAD lesion, patent stents of LCx, 90% ostial and proximal RCA dx Coronary Angiography: Anatomically normal right dominant circulation [...] a single 3.5 x 22 mm [place] CRIS. - High grade distal LM and [...] catheterization labin stable condition without apparent complications. Assessment: ID: Oksana Betancourt is a 57 y.o. female w/ PMH of history of triple vessel CAD s/p staged PCI in [place] in -03/2022 (with CRIS x1 to mid-RCA, CRIS x2 to ostial RCA, CRIS x1 to ostial LCX, and CRIS x1 to mid-LCX), severe s/p TAVR in 2021, baseline LBBB, HLD, HTN, Hodgkin lymphoma s/p radiation, CKD IIIb, bipolar disorder, COPD, and hypothyroidism on Hospital Day1 for high-risk NSTEMI. In CVCC- 11/28: Underwent cath yesterday, now s/p stent to RCA. Plan to confirm porcelain aorta on CT chest non con today. Consult CT surgery to discuss bypass if possible. If not surgical candidate,consider further stenting later this week. Pt required BIPAP likely d/t chf exacerbation, weaned to NC after IV duresis. 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 TSH normal, A1C 5.3%, trops peaked around 1700 and downtrendedPt planned for repeat LHC to PCI L sided coronaries tmrw, - Loaded with ASA 325 and Plavix 600 at OSH - EKG at OSH showed known LBBB, did not meet Sgarbossa criteria - Heparin gtt - Atorvastatin increased to 80 mg daily - ASA 81 mg - Plavix 75 mg - Nitro and EKG PRN per chest pain protocol - NPO PM for LHC tmrw of LAD and LCA #Acute HFmEF (EF 44%) - BNP 11,000 on admission - Diurese with IV lasix 40 x1 in CVCC, will reasses and spot dose diuresis in AM - Metoprolol 12.5 mg Q6H #Hypertension - Holding home amlodipine #Acute Hypoxic Respiratory Failure 2/2 Heart Failure Exacerbation - weaned off BIPAP, now on LFNC - Diuresis with IV lasix as above - CXR 11/27 showed pulmonary edema and bilateral pleural effusions #COPD #Previous tobacco use - Reports being on a nebulizer at home - Duonebs Q4H - pt noted long hx of smoking, no longer uses tobacco. Did not know she had COPD. #CKD3b - Baseline Cr ~1.1-1.2 - Daily BMP #GERD - Pantoprazole 40 daily for home omeprazole - Zofran PRN #History of Hodgkin Lymphoma s/p radiation - Daily CBC - In remission #Hypothyroidism - continue levothyroxine 100 mcg daily - TSH 0.51 on admission #Bipolar Disorder - Continue home quetiapine 100 mg nightly - Continue home lamotrigine 100 mg BID #Chronic Pain - Baclofen 5 mg BID - Continue home oxycodone-acetaminophen 10-650 mg q8h PRN Diet: Low Sodium diet 2 GM NA DVT Prophylaxis: DOAC Code status: Attempt Cardiopulmonary Resuscitation - Inpatient Disposition: Discharge Location: PT: OT: PCP None None Jose Souza DO 11/29/2023 * Haris Cartwright MD - 11/29/2023 7:08 AM EDT Images from the original note were not included. Inpatient Cardiology Progress Note Patient info: Name: Oksana Betancourt : 1965 PCP: None PCP phone number: None Date of Admission: 11/28/2023 ( Hospital Day 1 day ) Attending:Emory Ross MD ID: Oksana Betancourt is a 57 y.o. female w/ PMH of history of triple vessel CAD s/p staged PCI in [place] in -03/2022 (with CRIS x1 to mid-RCA, CRIS x2 to ostial RCA, CRIS x1 to ostial LCX, and CRIS x1 to mid-LCX), severe s/p TAVR in 2021, baseline LBBB, HLD, HTN, Hodgkin lymphoma s/p radiation, CKD IIIb, bipolar disorder, COPD, and hypothyroidism on Hospital Day1 for high-risk NSTEMI. 24 Hour Events/Subjective: Yesterday: -- transferred from OSH for nausea, SOB, found to have high risk NSTEMI. 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 access -- right femoral access -- RCA stent yesterday -- TTE showed LVEF of 44% with RCA WMA, normal RV function, well functioning CoreValve TAVR, moderate MR -- diuresed yesterday with lasix 40 mg IV x1 and lasix 80 mg IV x1 Overnight: -- heparin gtt not re-started as bleeding around sheath site -- no other acute events overnight This AM: -- denies any acute concerns or symptoms Drips: Heparin 650 u/hr Objective: Vitals Last value Range last 24 hrs Temperature Temp: 36.6 ??C (97.9 ??F) Temp: [36.6 ??C (97.9 ??F)-36.7 ??C (98.1 ??F)] Heart Rate Heart Rate: 93 Heart Rate: [81-98] Blood Pressure BP: 137/71 BP: (118-170)/(57-96) Art Line BP BP (Arterial Line): -- MAP (NBP): [75 mmHg-113 mmHg] Respiratory Rate Resp: 15 Resp: [13-30] SpO2 SpO2: 95 % SpO2: [93 %-100 %] Oxygen Delivery Oxygen Therapy O2 Device: Nasal cannula O2 Flow Rate (L/min): 2 L/min FiO2 (%): 100 % Reason for Oxygen: New documented hypoxia 2 L NC Telemetry: - 4 beats NSVT - PVCs Intake/Output Summary (Last 24 hours) at 11/29/2023 0708 Last data filed at 11/29/2023 0600 Gross per 24 hour Intake 1021.14 ml Output 1450 ml Net -428.86 ml Patient Vitals for the past 168 hrs: Weight 11/29/23 0500 108.3 kg (238 lb 12.1 oz) 11/28/23 1105 109.3 kg (240 lb 15.4 oz) Admit wt: 109.3 kg Physical Exam: Gen: in bed in NAD; alert, oriented, conversant HEENT: anicteric, EOMI intact, CV: RRR, no murmurs/rubs/gallops Resp: CTAB, no crackles/wheezes/ronchi, normal work of breathing Abd: normal bowel sounds, soft, non-tender to palpation, no rebound or guarding Ext: 2+ distal pulses, trace to 1+ LE bilaterally, no active bleeding at the cath site (right fem) Neuro: no focal deficits noted, CN II-XII grossly intact, moves all extremities spontaneously Skin: no rashes, lesions, or ulcerations noted Lines/Drains/Airways Lines: PIV 11/28/23 1110 18 gauge median cubital vein (antecubital fossa), right (Active) Indication/Daily Review of Necessity fluid therapy continuous 11/28/231999 Site Preparation/Maintenance dressing: dry and intact 11/29/23599 Securement catheter stabilization device, secured with 11/28/231999 Patency/Maintenance infusing 11/28/231999 Phlebitis 0-->no symptoms 11/29/23599 Infiltration 0-->no symptoms 11/29/23599 Site Signs/Symptoms no redness;no swelling;no warmth;no pain 11/29/23 0600 PIV 11/28/23 1110 18 gauge median cubital vein (antecubital fossa), left (Active) Indication/Daily Review of Necessity fluid therapy intermittent 11/28/231999 Site Preparation/Maintenance dressing: dry and intact 11/29/23599 Securement catheter stabilization device, secured with 11/28/231999 Patency/Maintenance flushed without difficulty 11/28/231999 Phlebitis 0-->no symptoms 11/29/23599 Infiltration 0-->no symptoms 11/29/23599 Site Signs/Symptoms no redness;no warmth;no swelling;no pain 11/29/23 06 Labs: Recent Labs 11/29/23 0027 11/28/23 1110 WBC 15.5* 14.0* HGB 10.3* 11.0* HCT 30.7* 33.2* PLATELET 286 293 MCV 92.2 92.5 Recent Labs 11/29/23 0027 11/28/23 1800 11/28/23 1110 NA 140 -- 139 CL 104 -- 103 CO2 24 -- 23 K 3.7 3.7 3.6 MAGNESIUM 0.89 -- 0.84 PHOS 3.1 -- 3.1 CALCIUM 8.8 -- 9.1 BUN 19* -- 17 CREATININE 1.32* -- 1.26* LFTs Recent Labs 11/28/23 1110 PROT 7.2 ALBUMIN 4.1 AST 48* ALT 16 ALKPHOS 117* BILITOT 0.6 BILIDIR 0.2 Coags Recent Labs 11/28/23 1110 INR 1.6 PT 18.5* PTT 78* Cardiac Enzymes Recent Labs 11/28/23 1110 PROBNP 11,073* Endocrine Recent Labs 11/28/23 1110 TSH 0.51 Recent Labs 11/28/23 1622 POCGLU 155 Trops 1,107 11/27 1800 1,719 11/28 0027 1,667 11/28 0524 Heme No results for input(s): LDH, HAPTOGLOBIN, URICACID in the last 168 hours. ABG (Arterial Blood Gas) No results found for: PHART, PO2ART, RTK5XUS, NVZ3QOP Microbiology: Microbiology Results (Last 30 days) No results found for the last 720 hours. Imaging: Results for orders placed or performed during the hospital encounter of 11/28/23 XR Chest One View (Exam End: 11/28/2023 11:30 AM) Impression Interstitial edema and small pleural effusions I have personally reviewed the image(s) and the resident's interpretation and agree with the findings, Andrew Khoury MD at 11/28/2023 2:04 PM Thank you for letting us participate in the care of this patient. If you are a health care provider and have any questions regarding this report, please contact the number below. For patients who have questions please contact the health wound care technician that requested your imaging first. Electronically signed by: Andrew Khoury MD, [facility] ([phone]), at 11/28/2023 2:04 PM Medications Scheduled Meds: sodium chloride 0.9 % (flush) 5 mL Intravenous BID aspirin 81 mg Oral Daily clopidogreL 75 mg Oral Daily atorvastatin 40 mg Oral Daily at Noon baclofen 5 mg Oral BID lamoTRIgine 100 mg Oral BID levothyroxine 100 mcg Oral QAM pantoprazole EC 40 mg Oral Daily QUEtiapine 100 mg Oral Nightly ipratropium-albuteroL 3 mL Nebulization Q4H COREY Continuous Infusions: heparin (porcine) infusion 650 Units/hr (11/29/23 0600) PRN Meds:.sodium chloride 0.9 % (flush), lidocaine, nitroGLYcerin, heparin (porcine) infusion AND heparin (porcine), potassium chloride ER OR potassium chloride ER, ondansetron, oxyCODONE-acetaminophen, atropine Assessment & Plan: Oksana Betancourt is a 57 y.o. female with a history of triple vessel CAD s/p staged PCI in [place] in (with CRIS x1 to mid-RCA, CRIS x2 to ostial RCA, CRIS x1 to ostial LCX, and CRIS x1 to mid-LCX), severe s/p TAVR in 2021, baseline LBBB, HLD, HTN, Hodgkin lymphoma s/p radiation, CKD IIIb, bipolar disorder, COPD, and hypothyroidism who presented to OSH with nausea and SOB and was transferred to [facility] for high-risk NSTEMI. 11/28: Underwent cath yesterday, now s/p stent to RCA. Plan to confirm porcelain aorta on CT chest non con today. Consult CT surgery to discuss bypass if possible. If not surgical candidate, consider further stenting later this week. Also increased atorvastatin dose to 80 and started metop. Will diuresis with 40 mg IV lasix x1. Downgrade today to CV Hospitalist team. 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 #HLD #Known LBBB at Baseline - Loaded with ASA 325 and Plavix 600 at OSH - EKG at OSH showed known LBBB, did not meet Sgarbossa criteria - TTE showed LVEF of 44% with RCA WMA, normal RV function, well functioning CoreValve TAVR, moderate MR - s/p LHC yesterday with stent to RCA - Heparin gtt - Atorvastatin increased to 80 mg daily - ASA 81 mg - Plavix 75 mg - Nitro and EKG PRN per chest pain protocol - TSH normal - A1C 5.3% - trops peaked around 1700 and downtrended #Acute HFrEF - BNP 11,000 on admission - TTE showed EF 44% - Diurese with IV lasix 40 x1 - Metoprolol 12.5 mg Q6H #Hypertension - Holding home amlodipine Pulmonary #Acute Hypoxic Respiratory Failure 2/2 Heart Failure Exacerbation - weaned off BIPAP, now on LFNC - Diuresis with IV lasix as above - CXR 11/27 showed pulmonary edema and bilateral pleural effusions #COPD #Current tobacco use - Reports being on a nebulizer at home - Duonebs PRN - Will encourage tobacco cessation; she expresses interest in quitting Renal/Fluid/Electrolytes #CKD3b - Baseline Cr ~1.1-1.2 - Daily BMP Gastrointestinal/Metabolic/Nutrition #GERD - Pantoprazole 40 daily for home omeprazole - Zofran PRN Hematology #History of Hodgkin Lymphoma s/p radiation - Daily CBC - In remission Endocrine #Hypothyroidism - continue levothyroxine 100 mcg daily - TSH 0.51 on admission Infection #STEPHANY #Routine Diet: NPO diet (Give Meds) DVT Prophylaxis: heparin gtt GI Prophylaxis: protonix Code Status: Attempt Cardiopulmonary Resuscitation - Inpatient Dispo: Pending clinical course Suzi Valderrama MD, MPH Internal Medicine, PGY-1 Cardiology, CVCC 11/29/23 7:08 AM Cardiology Attending Note I interviewed and examined the patient during comprehensive bedside rounds. I concur with the summary of interval events, active hospital-focused problem list and plan of care as described in the note below. I personally reviewed the medications, laboratory results, treatment decisions and updated the patient. # NSTEMI s/p RCA PCI (11/28) # Multivessel CAD, chronic, including high grade 80% distal LM stenosis # HFrEF, acute, LVEF-44% # Calcified aorta, may preclude CABG # s/p TAVR # CKD # LBBB PLAN: - Non-contrast CT chest today to evaluate aorta - CT surgery consult after CT chest - Consider LM PCI if not a surgical candidate - Continue GDMTs Haris Cartwright MD, FACP, FACC Section of Cardiovascular Medicine [facility] [employer] [facility] This patient meets or has met medical criteria to require an inpatient level of care, i.e. a minimum of two midnights in the hospital with multiple complex problems. documented in this encounter H&P Notes * Corinne Conner MD - 11/28/2023 11:27 AM EDT Images from the original note were not included. Cardiology ICU H&P Patient info: Name: Oksana Betancourt : 1965 PCP: None PCP phone number: [phone] Date of Admission: 11/28/2023 ( Hospital Day 0 days ) Attending:Emory Ross MD ID: Oksana Betancourt is a 57 y.o. female with a history of triple vessel CAD s/p staged PCI in [place] in (with CRIS x1 to mid-RCA, CRIS x2 to ostial RCA, CRIS x1 to ostial LCX, and CRIS x1 to mid-LCX), severe s/p TAVR in 2021, baseline LBBB, HLD, HTN, Hodgkin lymphoma s/p radiation, CKD IIIb, bipolar disorder, COPD, and hypothyroidism who presented to OSH with nausea and SOB and was transferred to [facility] for high-risk NSTEMI. HPI: Oksana reports that she was in her usual state of health until three days ago. At that time, she started to feel nauseous and had no appetite. States that she was spitting up bile. No emesis or abdominal pain. She had not eaten much since that time. Last night at 0130, she started to feel a heaviness in her chest associated with shortness of breath. This did not wake her up from sleep; she had been having trouble falling asleep. Chest heaviness was located on the right side and did not radiate. She reports a long history of orthopnea - she feels SOB if she lies flat. No PND. She reports taking lasix 20 mg daily. Oksana recently moved to [place] from [place], [place] at the end of August to be closer to family. She lives alone but lives next door to her brother. She has a PCP here and recently established with a ski production supervisor (Evita Alejandro) in [facility]. She reportedly saw Dr. Alejandro within the past week for a routine visit; Oksana did not have any symptoms at that time. She was reportedly taken off ticagrelor at that time, but no changes were made to her diuretic regimen. She reports occasional LE edema. Ms. Betancourt has a significant cardiovascular history. She had an FL in 2021, which she says presented with similar symptoms to her current presentation. On 03/10/2022 she underwent LHC that showed 10%LM disease, mid-LAD 30%, LCX ostial 90%, RCA mid 99% stenosis. Severe aortic stenosis (NICO 0.65 cm2). LVEDP 3 mmHg. 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 She therefore underwent staged PCI - on 03/17/22 she received CRIS x1 to mid-RCA and CRIS x2 to ostial RCA and on 03/19/22 received CRIS x1 to ostial LCX and CRIS x1 to mid LCX. She reported improvement in chest pain after these procedures. Oksana also underwent TAVR in 2021. It seems that she was initially on ASA, ticagrelor, and apixaban (for paroxysmal a fib), but the ASA was stopped at some point to avoid triple therapy. At [facility], she was hypoxic requiring initiation of BiPAP. ECG demonstrated LBBB, which is not new for her. ECG did not meet Sgarbossa criteria per [facility] teletype operator. Troponin was markedly elevated (6000s). Bedside POCUS showed LVEF 10-15%. Oksana was loaded with ASA, Plavix, and started on a heparin gtt. She was transferred to [facility] for high-risk NSTEMI. On arrival, Oksana reported ongoing nausea. Her SOB had improved, though she remained on BiPAP. PMH - CAD with triple vessel disease s/p CRIS x5 in 2021 - HTN - HLD - Hodgkin lymphoma s/p radiation therapy (timeline unknown) - CKD IIIB (Baseline Cr ~1.1) - Bipolar disorder - COPD PSH No past surgical history on file. Family History No family history on file. Social History Social History Socioeconomic History Marital status: Declines to List Spouse name: Not on file Number of children: Not on file Years of education: Not on file Highest education level: Not on file Occupational History Not on file Tobacco Use Smoking status: Former Packs/day: 1.00 Years: 40.00 Additional pack years: 0.00 Total pack years: 40.00 Types: Cigarettes Quit date: 11/17/2021 Years since quittin.0 Smokeless tobacco: Never Substance and Sexual Activity Alcohol use: Not on file Drug use: Not on file Sexual activity: Not on file Other Topics Concern Not on file Social History Narrative Not on file Social Determinants of Health Financial Resource Strain: Not on file Food Insecurity: Not on file Transportation Needs: Not on file Physical Activity: Not on file Intimate Partner Violence: Not At Risk (11/28/2023) IPV Inpatient Questions Prevent Contact with Others: no Feels Threatened by Someone: no Feels Unsafe at Home: no Physical Signs of Abuse Present: no Housing Stability: Not on file Allergies: No Known Allergies Meds [Nov] sodium chloride 0.9 % (flush) 5 mL Intravenous BID [Nov] aspirin 81 mg Oral Daily [Nov] clopidogreL 75 mg Oral Daily [Nov] atorvastatin 40 mg Oral Daily at Noon [Nov] baclofen 5 mg Oral BID [Nov] lamoTRIgine 100 mg Oral BID [Nov] levothyroxine 100 mcg Oral QAM [Nov] pantoprazole EC 40 mg Oral Daily [Nov] QUEtiapine 100 mg Oral Nightly [Nov] sodium chloride 0.9 % (flush), [Nov] lidocaine, [Nov] nitroGLYcerin, [Nov] heparin (porcine) infusion AND [Nov] heparin (porcine), [Nov] potassium chloride ER OR [Nov] potassium chloride ER, [Nov] ondansetron, [Nov] oxyCODONE-acetaminophen Vasoactive & Sedating Medications: Infusions: Continuous Infusions: [Nov] heparin (porcine) infusion Stopped (11/28/23 1520) Objective: Vitals Last value Range last 24 hrs Temperature Temp: 36.7 ??C (98.1 ??F) Temp: [36.7 ??C (98.1 ??F)] Heart Rate Heart Rate: 87 Heart Rate: [87-98] Blood Pressure BP: 118/69 BP: (118-136)/(69-92) Art Line BP BP (Arterial Line): -- MAP (NBP): [80 mmHg-98 mmHg] Respiratory Rate Resp: 20 Resp: [18-30] SpO2 SpO2: 94 % SpO2: [93 %-95 %] Oxygen Delivery Oxygen Therapy O2 Device: Bi-PAP FiO2 (%): 30 % Reason for Oxygen: New documented hypoxia Ventilator Settings: Mode: , SET RR: TV: PEEP: FiO2: VARIABLES PATIENT RR: PIP: Pplateau: SpO2: OUTPUT Resp: 20 SpO2: 94 % Intake/Output Summary (Last 24 hours) at 11/28/2023 1533 Last data filed at 11/28/2023 1400 Gross per 24 hour Intake 22.55 ml Output 400 ml Net -377.45 ml Patient Vitals for the past 168 hrs: Weight 11/28/23 1105 109.3 kg (240 lb 15.4 oz) Admit wt: 109.3 kg Physical Exam: General: Awake, alert, responsive, in no apparent distress HEENT: atraumatic and normocephalic; anicteric sclera; BiPAP mask in place Cardiovascular: Regular rate and rhythm, normal S1, prosthetic valve S2; no murmurs, gallops, or rubs; JVP elevated; 2+ radial pulse Respiratory: Wheezes audible without stethoscope present throughout lungs; no rhonchi; increased work of breathing on BiPAP GI: Abdomen soft, non-tender, and non-distended without rebound or guarding; normoactive bowel sounds Extremities: Warm and well perfused, 2+ DP pulses bilaterally, 2+ pitting edema bilaterally Skin: Warm and dry; no rashes, ecchymosis, or lesions Neuro: A&0x3, speech grossly intact Lines/Drains/Airways Lines: PIV 11/28/23 1110 18 gauge median cubital vein (antecubital fossa), right (Active) PIV 11/28/23 1110 18 gauge median cubital vein (antecubital fossa), left (Active) Labs: Recent Labs 11/28/23 1110 WBC 14.0* HGB 11.0* HCT 33.2* PLATELET 293 MCV 92.5 Recent Labs 11/28/23 1110 NA 139 CL 103 CO2 23 K 3.6 MAGNESIUM 0.84 PHOS 3.1 CALCIUM 9.1 BUN 17 CREATININE 1.26* LFTs Recent Labs 11/28/23 1110 PROT 7.2 ALBUMIN 4.1 AST 48* ALT 16 ALKPHOS 117* BILITOT 0.6 BILIDIR 0.2 Coags Recent Labs 11/28/23 1110 INR 1.6 PT 18.5* PTT 78* Cardiac Enzymes Recent Labs 11/28/23 1110 PROBNP 11,073* Endocrine Recent Labs 11/28/23 1110 TSH 0.51 hsTroponin: 712 --> 812 Microbiology: None Imaging: CXR 11/28/23 IMPRESSION Interstitial edema and small pleural effusions Medications Scheduled Meds: [NOV Hold] sodium chloride 0.9 % (flush) 5 mL Intravenous BID [NOV Hold] aspirin 81 mg Oral Daily [NOV Hold] clopidogreL 75 mg Oral Daily [NOV Hold] atorvastatin 40 mg Oral Daily at Noon [NOV Hold] baclofen 5 mg Oral BID [NOV Hold] lamoTRIgine 100 mg Oral BID [NOV Hold] levothyroxine 100 mcg Oral QAM [Nov] pantoprazole EC 40 mg Oral Daily [Nov] QUEtiapine 100 mg Oral Nightly Continuous Infusions: [Nov] heparin (porcine) infusion Stopped (11/28/23 1520) PRN Meds:.[NOV Hold] sodium chloride 0.9 % (flush), [NOV Hold] lidocaine, [NOV Hold] nitroGLYcerin,[NOV Hold] heparin (porcine) infusion AND [NOV Hold] heparin (porcine), [NOV Hold] potassium chloride ER OR [NOV Hold] potassium chloride ER, [NOV Hold] ondansetron, [NOV Hold] oxyCODONE-acetaminophen Assessment & Plan: Oksana Betancourt is a 57 y.o. female with a history of triple vessel CAD s/p staged PCI in [place] in -03/2022 (with CRIS x1 to mid-RCA, CRIS x2 to ostial RCA, CRIS x1 to ostial LCX, and CRIS x1 to mid-LCX), severe s/p TAVR in 2021, baseline LBBB, HLD, HTN, Hodgkin lymphoma s/p radiation, CKD IIIb, bipolar disorder, COPD, and hypothyroidism who presented to OSH with nausea and SOB and was transferred to [facility] for high-risk NSTEMI. Plan for urgent LHC for NSTEMI. Given her known triple-vessel disease and multiple stents, this will likely be a very challenging intervention. It is possible that one of her stents has re-stenosed or thrombosed. 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 Will follow laboratory equipment cleaner results and determine DAPT planning based upon findings. Continuing heparin gtt until laboratory equipment cleaner. She is on isosorbide mononitrite and ranolazine at home, which we are currently holding out of concern for jasper-procedural hypotension. Based upon these medication, she likely has more frequent chestpain than initially described. Based upon her LVEF on repeat TTE, we will consider adjusting her afterload regimen to allow for GDMT. 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 #HLD #Known LBBB at Baseline - Loaded with ASA 325 and Plavix 600 at OSH - EKG at OSH showed known LBBB, did not meet Sgarbossa criteria - TTE ordered; not yet performed - Bedside echo at OSH reportedly showed LVEF 10-15% - [facility] today - Heparin gtt - Atorvastatin 40 mg daily - DAPT pending laboratory equipment cleaner findings - Likely ASA and ticagrelor based upon prior medications - Nitro and EKG PRN per chest pain protocol - TSH normal - Lipids ordered - A1C ordered - Holding isosorbide mononitrite and ranolazine in jasper-procedural setting #Acute HFrEF - BNP 11,000 on admission - Per OSH, LVEF 10-15% on bedside TTE - Diuresed with IV lasix 40 x1 and 80 x1 - Holding home furosemide - Formal TTE pending #Hypertension - Holding home amlodipine Pulmonary #Acute Hypoxic Respiratory Failure 2/2 Heart Failure Exacerbation - BiPAP, wean as able - Diuresis with IV lasix PRN - Holding home PO dose in acute setting - CXR 11/27 showed pulmonary edema and bilateral pleural effusions #COPD #Current tobacco use - Reports being on a nebulizer at home - Duonebs PRN - Will encourage tobacco cessation; she expresses interest in quitting Renal/Fluid/Electrolytes #CKD3b - Baseline Cr ~1.1-1.2 - Daily BMP Gastrointestinal/Metabolic/Nutrition #GERD - Pantoprazole 40 daily for home omeprazole - Zofran PRN Hematology #History of Hodgkin Lymphoma s/p radiation - Daily CBC - In remission Endocrine #Hypothyroidism - continue levothyroxine 100 mcg daily - TSH 0.51 on admission Infection #STEPHANY #Routine Diet: NPO diet (Give Meds) DVT Prophylaxis: Heparin gtt GI Prophylaxis: Pantoprazole Code Status: Attempt Cardiopulmonary Resuscitation - Inpatient Dispo: Pending clinical course Corinne Conner MD Internal Medicine, PGY-2 Cardiology, CVCC Service 11/28/23 3:33 PM Associated attestation - Emory Ross MD - 11/28/2023 8:15 PM EDT I have seen and examined the patient, providing prara components as outlined below. I have reviewed the resident???s above note; my evaluation of the patient is below: 57 y.o. female with a history of triple vessel CAD s/p staged PCI in [place] in - 03/2022 (with CRIS x1 tomid-RCA, CRIS x2 to ostial RCA, CRIS x1 to ostial LCX, and CRIS x1 to mid-LCX), severe s/p TAVR in 2021, baseline LBBB, HLD, HTN, Hodgkin lymphoma s/p radiation, CKD IIIb, bipolar disorder, COPD, andhypothyroidism who presented to OSH with nausea and SOB and was transferred to [facility] for high-risk NSTEMI. Cardiac catheterization LMCA: 90% distal LM lesion LAD: 90% ostial LAD lesion LCx: Minimal luminal irregularities noted, patent stents RCA: 90% ostial and proximal RCA disease (in-stent) -> 3.5 x 22 mm CRIS Transthoracic echocardiogram LVEF 44% with RCA WMA, normal RV function, well-functioning CoreValve TAVR, moderate MR Plan: Discuss with patient risk/benefit LM intervention (apparently not a surgical candidate?) GDMT for ischemic cardiomyopathy Requires adequate diuresis (on Bipap initially today) documented in this encounter Miscellaneous Notes * Plan of Care - Lukas Dia RN - 2023 10:15 PM EDT Shift Summary: Assumed care of pt at 1900. See VS and assessments as charted. Patient Alert and Oriented x4. R. Fem site CDI. PO percocet given PRN. No complaints of CP or SOB. O2 RA. NSR on tele, see scanned docs. SBA to BR. Frequent rounding provided for comfort and safety, bed alarm on, call light in reach. Plan of care ongoing. Care Plan Outcome Evaluation: Problem: Adult Inpatient Plan of Care Goal: [...] Outcome: Ongoing (Interventions Implemented as Appropriate) Problem: Arrhythmia/Dysrhythmia (Cardiac Catheterization) Goal: Stable Heart Rate and Rhythm Outcome: Ongoing (Interventions Implemented as Appropriate) Problem: Bleeding (Cardiac Catheterization) Goal: Absence of Bleeding Outcome: Ongoing (Interventions Implemented as Appropriate) Problem: Contrast-Induced Injury Risk (Cardiac Catheterization) Goal: Absence of Contrast-Induced Injury Outcome: Ongoing (Interventions Implemented as Appropriate) Problem: Embolism (Cardiac Catheterization) Goal: Absence of Embolism Signs and Symptoms Outcome: Ongoing (Interventions Implemented as Appropriate) Problem: Ongoing Anesthesia/Sedation Effects (Cardiac Catheterization) Goal: Anesthesia/Sedation Recovery Outcome: Ongoing (Interventions Implemented as Appropriate) Problem: Pain (Cardiac Catheterization) Goal: Acceptable Pain Control Outcome: Ongoing (Interventions Implemented as Appropriate) Problem: Vascular Access Protection (Cardiac Catheterization) Goal: Absence of Vascular Access Complication Outcome: Ongoing (Interventions Implemented as Appropriate) * Plan of Care - Lukas Dia, RN - 12/02/2023 9:07 PM EDT Shift Summary: Assumed care of pt at 1900. See VS and assessments as charted. Patient Alert and Oriented x4. No complaints of CP or SOB. O2 RA. NSR/ST on tele, see scanned docs. PRN Percocet given. SBA to BR. Frequent rounding provided for comfort and safety, bed alarm on, call light in reach. Planof care ongoing. Care Plan Outcome Evaluation: Problem: Adult Inpatient Plan of Care Goal: [...] Outcome: Ongoing (Interventions Implemented as Appropriate) Problem: Arrhythmia/Dysrhythmia (Cardiac Catheterization) Goal: Stable Heart Rate and Rhythm Outcome: Ongoing (Interventions Implemented as Appropriate) Problem: Bleeding (Cardiac Catheterization) Goal: Absence of Bleeding Outcome: Ongoing (Interventions Implemented as Appropriate) Problem: Contrast-Induced Injury Risk (Cardiac Catheterization) Goal: Absence of Contrast-Induced Injury Outcome: Ongoing (Interventions Implemented as Appropriate) Problem: Embolism (Cardiac Catheterization) Goal: Absence of Embolism Signs and Symptoms Outcome: Ongoing (Interventions Implemented as Appropriate) Problem: Ongoing Anesthesia/Sedation Effects (Cardiac Catheterization) Goal: Anesthesia/Sedation Recovery Outcome: Ongoing (Interventions Implemented as Appropriate) Problem: Pain (Cardiac Catheterization) Goal: Acceptable Pain Control Outcome: Ongoing (Interventions Implemented as Appropriate) Problem: Vascular Access Protection (Cardiac Catheterization) Goal: Absence of Vascular Access Complication Outcome: Ongoing (Interventions Implemented as Appropriate) * Plan of Care - Jose Souza DO - 12/02/2023 7:51 PM EDT Post Cardiac cath note Oksana Betancourt [id number] 1965 57 y.o. female Last value Range last 8 hrs Temperature Temp: 37 ??C (98.6 ??F) Temp: [37 ??C (98.6 ??F)] Heart Rate Heart Rate: (!) 101 Heart Rate: [84-101] Blood Pressure BP: 153/68 BP: (89-153)/(58-74) Respiratory Rate Resp: 18 Resp: [15-28] SpO2 SpO2: 96 % SpO2: [95 %-98 %] S: Patient reports no chest pain or SOB Patient reports no back pain or groin pain O: No active bleeding noted @ cath site (some oozing noted by team a few hours prior to my arrival) No hematoma, bruit or tenderness DP pulses intact + equal A/P. S/p cath with no complications Jose oSuza DO 12/02/2023 CV Hospitalist * Consult Note - Bhakti Virgen, KANDI - 12/01/2023 1:54 PM EDT Oksana Betancourt was seen today by Cardiac Rehabilitation for: NSTEMI, staged, PCI Activity evaluation - Patient on heparin gtt. Going back to laboratory equipment cleaner tomorrow. Has done some light walking in room and in hallway. Educational packet regarding CAD, cardiac risk factors, and managing angina given to the patient. Heart diagram reviewed. Oksana has a history of prior PCI and TAVR in . She didn't participate in CR but just did walking on her own. Given parameters for home exercise. Reviewed managing angina /use of sl nitroglycerin. Participation in an outpatient cardiac rehabilitation program at [facility] was discussed. Patient agrees to a referral to this program. The referral will be sent at discharge and the patient should be contacted by the Program within 1- 2 weeks from discharge. * Plan of Care - Feli Norris RN - 11/30/2023 5:51 AM EDT Shift EVALUATION NOTE: Shift Summary: Pt AAOx4 and pleasant. Bed alarm maintained for HFR. VSS on 1L NC, at approx. 0300, pt c/o sudden SOB accompanied by wheezing desatting into 80s- increased to 4L NC satting low 90s - MD to bedside toassess, PRN neb given w/ relief, OOB sitting up in chair. Pt denies CP and dizziness, NSR/ST on tele, see scanned documents. NPO @ [place]. Heparin gtt maintained, bleeding precautions maintained. Pt accidentally removed PIV w/ heparin infusing, IV team paged for 2nd IV access. See flow sheets for I&O. RR site CDI and unchanged, R fem site CDI and unchanged. Pt slept in between care, call gonzalez within reach. Plan Moving Forward: NPO for staged PCI today CPG Outcome Evaluation: Problem: Adult Inpatient Plan of Care Goal: [...] Outcome: Ongoing (Interventions Implemented as Appropriate) Problem: Arrhythmia/Dysrhythmia (Cardiac Catheterization) Goal: Stable Heart Rate and Rhythm Outcome: Ongoing (Interventions Implemented as Appropriate) Problem: Bleeding (Cardiac Catheterization) Goal: Absence of Bleeding Outcome: Ongoing (Interventions Implemented as Appropriate) Problem: Contrast-Induced Injury Risk (Cardiac Catheterization) Goal: Absence of Contrast-Induced Injury Outcome: Ongoing (Interventions Implemented as Appropriate) Problem: Embolism (Cardiac Catheterization) Goal: Absence of Embolism Signs and Symptoms Outcome: Ongoing (Interventions Implemented as Appropriate) Problem: Ongoing Anesthesia/Sedation Effects (Cardiac Catheterization) Goal: Anesthesia/Sedation Recovery Outcome: Ongoing (Interventions Implemented as Appropriate) Problem: Pain (Cardiac Catheterization) Goal: Acceptable Pain Control Outcome: Ongoing (Interventions Implemented as Appropriate) Problem: Vascular Access Protection (Cardiac Catheterization) Goal: Absence of Vascular Access Complication Outcome: Ongoing (Interventions Implemented as Appropriate) * Plan of Care - Cely Martinez RN - 11/29/2023 4:41 PM EDT OUTCOME EVALUATION NOTE: OUTCOME SUMMARY: Pt A&O, c/o CURIEL. Chest CT obtained. Heparin gtt maintained per protocol. Downgraded to [place] levelof care. PLAN MOVING FORWARD: NPO @[place] for cath * Initial Assessments - Roberth Spring RN - 11/29/2023 4:31 PM EDT Office of Care Management Initial Assessment Roberth Spring RN reviewed record and discussed patient with Care Team. Source of Information: Team, bedside nurse, medical record, and Patient Introduced self/reviewed role; services accepted. Admitted From: Transfer from another hospital Location: [facility] Reason for Hospitalization: heart attack Past medical History: No past medical history on file. Hospitalizations Within the Past 30 Days: no previous admission in last 30 days Current Decision-Making Capacity: Self If AD's have not been completed the following surrogate would be surrogate decision maker per [place] surrogate decision making law. (Only good for 180 days) Any patient receiving care in [place] must abide by [place] law. The hierarchy for surrogate decision making [...] (i) The agent with financial power of contracts attorney or a conservator appointed in accordance with RSA 464-A. (j) The guardian of the patient???s estate. Advance Care Planning: Attempt Cardiopulmonary Resuscitation - Inpatient <no information> -Advanced Directive: No, declines (brother is SDM) Current Coping/Education/Information Needs: pending hospital course Current Functional Ability: Assistive Person Functional Status Prior to Admission: Independent Prior ADLs & IADLs: Independent with all ADLs & IADLs Home Environment: Others in the home: alone. Current Living Arrangements: home/apartment/condo. Accessibility Concerns:1st floor handicapped accessible apartment (lives right next door to brother); no home accessibility concerns noted. In the last 12 months, was there a time when you were not able to pay the mortgage or rent on time?: No In the last 12 months, how many places have you lived?: 2 (previously lived in [place], has been in current apartment for 3 monhts) In the last 12 months, was there a time when you did not have a steady place to sleep or slept in ashelter (including now)?: No In the past 12 months has the De[place], gas, oil, or water NERITES threatened to shut off services in your [...] grab bar - tub/shower, grab bar - toilet, raised toilet seat Home Address confirmed as: [address] [place] [address] [address] [facility] [address] Social & Family Supports: All names listed below confirmed with patient as current and correct Extended Emergency Contact Information Primary Emergency Contact: Lizeth Menard Mobile Relation: Other Current Care Provided by: self Provides Primary Care For: no one Caregiver if needed: sibling(s) Quality of Family relationships: helpful, involved, supportive Community Resources being provided currently: none Behavioral Health History: denies Substance Use/Abuse confirmed: Social History Tobacco Use Smoking Status Former Packs/day: 1.00 Years: 40.00 Additional pack years: 0.00 Total pack years: 40.00 Types: Cigarettes Quit date: 11/17/2021 Years since quittin.0 Smokeless Tobacco Never In the past year [...] points: Addiction likely Other Pertinent/Service Specific Information: N/A Health/Prescription Coverage: Primary Insurance: N/A Payor: / Secondary Insurance: N/A ONLY if patient has Medicare A&B - Does this patient have secondary insurance?: Yes (Medicare A&B and CIGNA) ; Prescription Coverage: Yes (Medicare A&B and CIGNA) Preferred Pharmacy: No Pharmacies Listed [place] Status: Patient is a : No Primary Care Provider confirmed: Gaudencio Scales [facility] [address], [place] [address] Patient/Caregiver Goals of Treatment: home when MR Potential Needs for Transition of Care: none, other (see comments) (pending hospital course) Agency Referrals: Not Applicable; pending hospital course, but pt states that she is open to VNA at discharge if needed Transportation: no concerns Transportation Anticipated: family or friend will provide Concerns to be Addressed: denies needs/concerns at this time, discharge planning (pt states that she is willing to have a VNA agency if needed at discharge, but she is hoping that she will not need it.) Assessment: Patient is admitted to Cardiology CV Hospitalist 1 service for NSTEMI Plan: d/c plan pending clinical course A member of the Care Management team will continue to monitor progress, follow for continuity of care and assist with transition of care planning. * Plan of Care - Ngoc Foster RN - 11/29/2023 5:01 AM EDT VSS stable overnight. AOx4, NSR, LBBB, bp'S 130'S/60'S. Pulses palpable, mild generalized edema. 6Lnc titrated down to 3L, tolerating well. Radial TR band removed per protocol. Right fem site bleed, pressure held, resolved. K replaced. Heparin restarted per protocol. No signs of bleeding. Sat at edge of bed. External catheter, adequate UOP, concentrated. Problem: Adult Inpatient Plan of Care Goal: [...] Outcome: Ongoing (Interventions Implemented as Appropriate) Problem: Arrhythmia/Dysrhythmia (Cardiac Catheterization) Goal: Stable Heart Rate and Rhythm Outcome: Ongoing (Interventions Implemented as Appropriate) Problem: Bleeding (Cardiac Catheterization) Goal: Absence of Bleeding Outcome: Ongoing (Interventions Implemented as Appropriate) Problem: Contrast-Induced Injury Risk (Cardiac Catheterization) Goal: Absence of Contrast-Induced Injury Outcome: Ongoing (Interventions Implemented as Appropriate) Problem: Embolism (Cardiac Catheterization) Goal: Absence of Embolism Signs and Symptoms Outcome: Ongoing (Interventions Implemented as Appropriate) Problem: Ongoing Anesthesia/Sedation Effects (Cardiac Catheterization) Goal: Anesthesia/Sedation Recovery Outcome: Ongoing (Interventions Implemented as Appropriate) Problem: Pain (Cardiac Catheterization) Goal: Acceptable Pain Control Outcome: Ongoing (Interventions Implemented as Appropriate) Problem: Vascular Access Protection (Cardiac Catheterization) Goal: Absence of Vascular Access Complication Outcome: Ongoing (Interventions Implemented as Appropriate) * Brief Op Note - Faustino Hernández MD - 11/28/2023 5:29 PM EDT Brief Operative Note Patient Name: Oksana Betancourt : [id number] MR#: [id number] Case Date: 11/28/2023 Surgeon: Surgeon(s) and Role: * Ryder Hargrove MD - Primary * Faustino Hernández MD - Fellow - Assisting Preoperative diagnosis: NSTEMI Postoperative diagnosis: NSTEMI Preliminary Cardiac Catheterization Procedure Note: Procedure(s) performed: Right Radial Access - 6 Slender - Right Femoral Access ultrasound guided - 6 [place] Coronary Angiography Left Heart Cath PCI-Stent IVUS Preliminary findings: Femoral Angio: Insertion site in the mid common femoral artery Coronary Angiography: Anatomically normal right dominant circulation [...] a single 3.5 x 22 mm [place] CRIS. - High grade distal LM and [...] catheterization labin stable condition without apparent complications. Full report to follow. * Plan of Care - Cely Martinez RN - 11/28/2023 4:26 PM EDT OUTCOME EVALUATION NOTE: OUTCOME SUMMARY: Pt admitted from [facility]. A&O upon arrival. C/o SOB, placed on bipap. Heparin gtt maintained. Diuresed with IVP lasix (see eMAR). Sent to laboratory equipment cleaner in afternoon. PLAN MOVING FORWARD: NPO @ [place] for cath * Plan of Care - Riaz Fox MD - 11/28/2023 11:20 AM EDT Images from the original note were not included. Pre Cardiac Catheterization Note Oksana Betancourt is a 57 y.o. female who presents for NSTEMI Oksana Betancourt has no planned upcoming surgeries. No recent or ongoing bleeding events. No black stools. BP 130/71 (BP Location (NBP): Left arm, Patient Position: Lying) Pulse 98 Resp 25 Ht 167.6 cm(5' 6) Wt 109.3 kg (240 lb 15.4 oz) SpO2 94% BMI 38.89 kg/m?? Gen: Pleasant female in no apparent distress, able to lay flat Cardiac: regular rate, s1/s2 normal character and amplitude, no murmurs, rubs, or gallops heard over bipap Pulm: Bibasilar crackles Ext: Palpable radial and femoral pulses bilaterally. Palpable DP pulses bilaterally though L>R Neuro: no appreciated focal deficit ASA: 3: Patient with severe systemic disease Mallampati: BiPAP Recent CBC No results for input(s): WBC, HGB, HCT, PLATELET in the last 7068 hours. Recent BMP No results for input(s): NA, K, CL, CO2, BUN, CREATININE in the last 7068 hours. Previous Catheterization Performed in [place]. She reports 5 stents placed previously. The indications, expected benefits, and potential risks of heart catheterization were reviewed in detail with the patient. The potential for , heart attack, stroke, kidney failure, hemorrhage, allergic reaction, vascular complications and infection were reviewed in detail. The possibility of stenting and other percutaneous intervention, with associated risk, was reviewed. The possible need for emergent coronary artery bypass surgery was reviewed. Alternatives were discussed and the patient's questions were answered in full. Following this discussion, the patient consented to the procedure and signed a form attesting to this, which is in the chart. Plan: Coronary Angio via RRA No C/I to long-term DAPT Moderate Sedation OK Riaz Fox MD 11/28/2023 documented in this encounter Plan of Treatment Upcoming Encounters Date Type Department Care Team (Latest Contact Info) Description 07/30/2024 8:40 AM EST Hospital Encounter Mammography at [place] [phone] Jr Fulton MD [facility] [place] [address] 07/30/2024 8:45 AM EST Appointment Mammography at [place] [phone] Jr Fulton MD [facility] [address] [place] [address] 07/30/2024 9:20 AM EST Hospital Encounter Mammography at [place] [phone] Jr Fulton MD [facility] [place] [address] 07/30/2024 10:51 AM EST Hospital Encounter Outpatient Surgery Center [place] [phone] Jr Fulton MD [facility] [place] [address] 07/30/2024 10:51 AM EST Anesthesia Event [place] [phone] Megan [place] [address] 07/30/2024 10:51 AM EST - 07/30/2024 1:11 PM EST Surgery Outpatient [facility] [place] [phone] Jr Fulton MD [facility] [place] [address] MASTECTOMY PARTIAL (WRVU 10.13) 08/22/2024 2:00 PM EST Office Visit General Surgery at [place] [phone] Cindy Pierce APRN [facility] [place] [address] 08/22/2024 3:00 PM EST Office Visit Hematology and Oncology at [place] [phone] Soo Lyn MD [facility] [place] [place] [address] 08/27/2024 9:30 AM EST Scheduled View Only Radiation Oncology at [address] [phone] St Josr Whitley 08/27/2024 10:00 AM EST Office Visit Radiation Oncology at [address] [phone] Paradise Prado MD [facility] [place] [address] 2024 1:00 PM EDT Office Visit Cardiology at [address] [place] [phone] Ham Montenegro MD [facility] [place] [address] Scheduled Orders Name Type Priority Associated Diagnoses Orde r Schedule Basic Metabolic Panel (non-fasting) Lab Routine NSTEMI (non-ST elevated myocardial infarction) Expected: 12/11/2023, Expires: 06/11/2024 Magnesium Lab Routine NSTEMI (non-ST elevated myocardial infarction) Expected: 12/11/2023, Expires: 06/11/2024 Phosphorus Lab Routine NSTEMI (non-ST elevated myocardial infarction) Expected: 12/11/2023, Expires: 06/11/2024 Hemogram Lab Routine NSTEMI (non-ST elevated myocardial infarction) Expected: 12/11/2023, Expires: 06/11/2024 Scheduled Procedures Name Priority Associated Diagnoses Date/Ti [...] Priority Associated Diagnoses Order Schedule Referral to Cardiac Rehab Outpatient Referral Routine NSTEMI (non-ST elevated myocardial infarction) Ordered: 12/02/2023 Referral to Cardiology Outpatient Referral Routine NSTEMI (non-ST elevated myocardial infarction) Ordered: 12/02/2023 documented as of this encounter Procedures Procedure Name Priority Date/Time Associated Diagnosis Comments HEMOGRAM Routine 12/04/2023 2:43 AM EDT DIFFERENTIAL, AUTOMATED Routine 12/04/19 2:43 AM EDT CBC (WITH DIFF) Routine 12/04/2023 2:43 AM EDT PHOSPHORUS Routine 12/04/2023 2:43 AM EDT MAGNESIUM Routine 12/04/2023 2:43 AM EDT BASIC METABOLIC PANEL Routine 12/04/2023 2:43 AM EDT HEMOGRAM Routine 2023 3:53 AM EDT DIFFERENTIAL, AUTOMATED Routine 12/03/19 3:53 AM EDT CBC (WITH DIFF) Routine 2023 3:53 AM EDT PHOSPHORUS Routine 2023 3:53 AM EDT MAGNESIUM Routine 2023 3:53 AM EDT BASIC METABOLIC PANEL Routine 2023 3:53 AM EDT EKG 12-LEAD Routine 12/02/2023 12:46 PM EDT NSTEMI (non-ST elevated myocardial infarction) CARDIAC CATHETERIZATION Routine 12/02/19 12:28 PM EDT HEPARIN (UNFRACTIONATED) LEVEL Timed 12/02/2023 3:09 AM EDT HEMOGRAM Routine 12/02/2023 3:09 AM EDT DIFFERENTIAL, AUTOMATED Routine 12/02/19 3:09 AM EDT CBC (WITH DIFF) Routine 12/02/2023 3:09 AM EDT PHOSPHORUS Routine 12/02/2023 3:09 AM EDT MAGNESIUM Routine 12/02/2023 3:09 AM EDT BASIC METABOLIC PANEL Routine 12/02/2023 3:09 AM EDT HEPARIN (UNFRACTIONATED) LEVEL Timed 12/01/2023 8:55 PM EDT HEPARIN (UNFRACTIONATED) LEVEL Timed 12/01/2023 2:12 PM EDT HEPARIN (UNFRACTIONATED) LEVEL Timed 12/01/2023 8:11 AM EDT HEMOGRAM Routine 12/01/2023 4:42 AM EDT DIFFERENTIAL, AUTOMATED Routine 12/01/19 4:42 AM EDT CBC (WITH DIFF) Routine 12/01/2023 4:42 AM EDT PHOSPHORUS Routine 12/01/2023 4:42 AM EDT MAGNESIUM Routine 12/01/2023 4:42 AM EDT BASIC METABOLIC PANEL Routine 12/01/2023 4:42 AM EDT POCT GLUCOSE Routine 11/30/2023 10:58 AM EDT POCT GLUCOSE Routine 11/30/2023 7:43 AM EDT HEPARIN (UNFRACTIONATED) LEVEL Timed 11/30/2023 5:50 AM EDT HEPARIN (UNFRACTIONATED) LEVEL Timed 11/30/2023 12:40 AM EDT HEMOGRAM Routine 11/30/2023 12:40 AM EDT DIFFERENTIAL, AUTOMATED Routine 11/30/19 12:40 AM EDT CBC (WITH DIFF) Routine 11/30/2023 12:40 AM EDT PHOSPHORUS Routine 11/30/2023 12:40 AM EDT MAGNESIUM Routine 11/30/2023 12:40 AM EDT BASIC METABOLIC PANEL Routine 11/30/2023 12:40 AM EDT HEPARIN (UNFRACTIONATED) LEVEL Timed 11/29/2023 4:[address] CHEST WO CONTRAST (GENERIC) Routine 11/29/2023 1:05 PM EDT HC TROPONIN T Routine 11/29/2023 9:30 AM EDT HEPARIN (UNFRACTIONATED) LEVEL Timed 11/29/2023 9:30 AM EDT POTASSIUM Routine 11/29/2023 9:30 AM EDT HC TROPONIN T Routine 11/29/2023 5:24 AM EDT HC TROPONIN T Routine 11/29/2023 12:27 AM EDT BMP W/FASTING GLUCOSE Routine 11/29/2023 12:27 AM EDT HEMOGRAM Routine 11/29/2023 12:27 AM EDT DIFFERENTIAL, AUTOMATED Routine 11/29/19 12:27 AM EDT CBC (WITH DIFF) Routine 11/29/2023 12:27 AM EDT TRIGLYCERIDE Routine 11/29/2023 12:27 AM EDT PHOSPHORUS Routine 11/29/2023 12:27 AM EDT MAGNESIUM Routine 11/29/2023 12:27 AM EDT LDL CHOLESTEROL, DIRECT Routine 11/29/19 12:27 AM EDT HDL/CHOL PROFILE Routine 11/29/2023 12:2 7 AM EDT HEMOGLOBIN A1C Routine 11/29/2023 12:27 AM EDT HC TROPONIN T Routine 11/28/2023 6:00 PM EDT POTASSIUM Routine 11/28/2023 6:00 PM EDT EKG 12-LEAD Routine 11/28/2023 5:50 PM EDT NSTEMI (non-ST elevated myocardial infarction) CARDIAC CATHETERIZATION Routine 11/28/19 5:12 PM EDT ECHO COMPLETE W CONTRAST Routine 11/28/2023 4:42 PM EDT NSTEMI (non-ST elevated myocardial infarction) POCT GLUCOSE Routine 11/28/2023 4:22 PM EDT POINT OF CARE BLOOD GAS HISTORICAL Routine 11/28/2023 3:26 PM EDT HC TROPONIN T STAT 11/28/2023 2:20 PM EDT XR CHEST ONE VIEW Routine 11/28/2023 11: 30 AM EDT TROPONIN - SERIES Routine 11/28/2023 11: 10 AM EDT HEPARIN (UNFRACTIONATED) LEVEL Timed 11/28/2023 11:10 AM EDT HEMOGRAM Routine 11/28/2023 11:10 AM EDT DIFFERENTIAL, AUTOMATED Routine 11/28/19 11:10 AM EDT HC PARTIAL THROMBOPLASTIN TIME Routine 11/28/2023 11:10 AM EDT PROTHROMBIN TIME Routine 11/28/2023 11:1 0 AM EDT CBC (WITH DIFF) Routine 11/28/2023 11:10 AM EDT TSH Routine 11/28/2023 11:10 AM EDT PHOSPHORUS Routine 11/28/2023 11:10 AM EDT PRO-BRAIN NATRIURETIC PEPTIDE Routine 11/28/2023 11:10 AM EDT MAGNESIUM Routine 11/28/2023 11:10 AM EDT HEPATIC FUNCTION PANEL Routine 11:10 AM EDT BASIC METABOLIC PANEL Routine 11/28/2023 11:10 AM EDT documented in this encounter Results * (ABNORMAL) Differential, Automated (12/04/2023 2:43 AM EDT) Neutrophil % 46.0 % [facility] Neutrophil Absolute 4.20 1.70 - 6.10 x10(3)/mc L [facility] Lymph % 40.9 % [facility] Lymphocytes Abs 3.7(H) 0.9 - 3.2 x10(3)/mc L [facility] Monocyte % 8.2 % [facility] Monocyte Abs 0.8 0.3 - 0.9 x10(3)/mc L [facility] Eos % 4.3 % [facility] Eosinophils Abs 0.4 0.0 - 0.4 x10(3)/mc L [facility] Basophil % 0.2 % [facility] Baso Absolute 0.0 0.0 - 0.1 x10(3)/mc L [facility] Immature Gran % 0.40 % [facility] Comment: Immature granulocytes(IG's)percentage and absolute count will include metamyelocytes, myelocytes, and promyelocytes. Blood smears from CBCs yielding IG's will be scanned manually for concordance. If this scan disagrees with the automated IG or if promyelocytes are noted, a manual differential will be performed. Immature Gran Absolute 0.04 0.00 - 0.04 x10(3)/mc L [facility] Blood 12/04/2023 2:43 AM EDT 12/04/2023 3:15 AM EDT Narrative Resulting Agency Comment Spec In Lab Corinne Saba MD HEMATOLOGY ORDERAB LES Performing Organization Address City/[facility]/ZIP Co de Phone Number [facility] [place] [address] * (ABNORMAL) Hemogram (12/04/2023 2:43 AM EDT) White Blood Cell 9.1 4.0 - 9.5 x10(3)/ L [facility] Red Blood Cell 3.29(L) 4.00 - 5.21 x10(6)/ L [facility] Hemoglobin 10.0(L) 11.7 - 15.5 g/dL [facility] Hematocrit 31.3(L) 35.7 - 45.8 % [facility] Mean Cell Volume 95.1(H) 82.6 - 94.4 fL [facility] Mean Cell Hemoglobin 30.4 27.1 - 32.0 pg [facility] Mean Cell Hemoglobin Concentration 31.9 31.7 - 35.0 g/dL [facility] Platelet 377(H) 145 - 357 x10(3)/mc L [facility] RDW Standard Deviation 53.5(H) 37.0 - 46.0 fL [facility] RDW coefficient of variation 15.3(H) 11.5 - 14.1 % [facility] Mean Platelet Volume 11.5 7.6 - 12.9 fL [facility] NRBC% auto 0.0 % [facility] NRBC Absolute 0.000 0.000 - 0.000 x10(3)/mc L [facility] Blood 12/04/2023 2:43 AM EDT 12/04/2023 3:15 AM EDT Narrative Resulting Agency Comment Spec In Lab Corinne Saba MD HEMATOLOGY ORDERAB LES Performing Organization Address City/[facility]/ZIP Co de Phone Number [facility] [place] [address] * (ABNORMAL) Basic Metabolic Panel (non-fasting) (12/04/2023 2:43 AM EDT) Glucose 120 65 - 199 mg/dL [facility] Comment:Diabetes: >=200 mg/d L plus symptoms Blood Urea Nitrogen 13 8 - 18 mg/dL [facility] Creatinine 1.36(H) 0.70 - 1.20 mg/dL [facility] Sodium 142 135 - 145 mmol/L [facility] Potassium 4.6 3.5 - 5.0 mmol/L [facility] Comment: Please note: ??Patients with WBC >100,000 may have falsely elevated Potassium levels. ??For accurate Potassium quantification in these patients send serum separator tube (gold top) for subsequent determinations. ??Contact the Clinical Chemistry Laboratory if there are any questions. Chloride 105 98 - 107 mmol/L [facility] Carbon Dioxide 27 22 - 31 mmol/L [facility] Anion Gap 10 5 - 15 mmol/L [facility] Calcium 9.5 8.5 - 10.5 mg/dL [facility] Est Glomerular Filtration Rate 45(L) >=60 mL/min/1. 73 m?? [facility] Comment: This patient's estimated GFR was [...] and symptoms in addition to eGFR. Blood 12/04/2023 2:43 AM EDT 12/04/2023 3:15 AM EDT Narrative Resulting Agency Comment Spec In Lab Emory Ross MD CHEMISTRY ORDER [place]KE[place] [facility] [place] [address] * Magnesium (12/04/2023 2:43 AM EDT) Pathologist [facility] Magnesium 0.99 0.69 - 1.07 mmol/L [facility] Blood 12/04/2023 2:43 AM EDT 12/04/2023 3:15 AM EDT Narrative Resulting Agency Comment Spec In Lab Emory Ross MD CHEMISTRY ORDER [place]KEISHA Performing Organization Address City/[facility]/ZIP Co de Phone Number [facility] [place] [address] * (ABNORMAL) Phosphorus (12/04/2023 2:43 AM EDT) [facility] Phosphorus 5.2(H) 2.5 - 4.5 mg/dL [facility] Blood 12/04/2023 2:43 AM EDT 12/04/2023 3:15 AM EDT Narrative Resulting Agency Comment Spec In Lab Emory Ross MD CHEMISTRY ORDER [place]KEISHA Performing Organization Address City/[facility] Co de Phone Number [facility] [place] [address] * (ABNORMAL) Differential, Automated (2023 3:53 AM EDT) [facility] Neutrophil % 60.6 % [facility] Neutrophil Absolute 6.57(H) 1.70 - 6.10 x10(3)/mc L [facility] Lymph % 29.2 % [facility] Lymphocytes Abs 3.2 0.9 - 3.2 x10(3)/mc L [facility] Monocyte % 6.7 % [facility] Monocyte Abs 0.7 0.3 - 0.9 x10(3)/mc L [facility] Eos % 3.0 % [facility] Eosinophils Abs 0.3 0.0 - 0.4 x10(3)/mc L [facility] Basophil % 0.2 % [facility] Baso Absolute 0.0 0.0 - 0.1 x10(3)/mc L [facility] Immature Gran % 0.30 % [facility] Comment: Immature granulocytes(IG's)percentage and absolute count will include metamyelocytes, myelocytes, and promyelocytes. Blood smears from CBCs yielding IG's will be scanned manually for concordance. If this scan disagrees with the automated IG or if promyelocytes are noted, a manual differential will be performed. Immature Gran Absolute 0.03 0.00 - 0.04 x10(3)/ L [facility] Blood 2023 3:53 AM EDT 2023 4:04 AM EDT Narrative Resulting Agency Comment Spec In Lab Corinne Saba MD HEMATOLOGY ORDERAB LES [facility] [place] [address] * (ABNORMAL) Hemogram (2023 3:53 AM EDT) White Blood Cell 10.8(H) 4.0 - 9.5 x10(3)/[facility] Red Blood Cell 3.43(L) 4.00 - 5.21 x10(6)/[facility] Hemoglobin 10.4(L) 11.7 - 15.5 g/dL [facility] Hematocrit 32.7(L) 35.7 - 45.8 % [facility] Mean Cell Volume 95.3(H) 82.6 - 94.4 fL [facility] Mean Cell Hemoglobin 30.3 27.1 - 32.0 pg [facility] Mean Cell Hemoglobin Concentration 31.8 31.7 - 35.0 g/dL [facility] Platelet 367(H) 145 - 357 x10(3)/mc L [facility] RDW Standard Deviation 53.4(H) 37.0 - 46.0 fL [facility] RDW coefficient of variation 15.2(H) 11.5 - 14.1 % [facility] Mean Platelet Volume 11.8 7.6 - 12.9 fL [facility] NRBC% auto 0.0 % [facility] NRBC Absolute 0.000 0.000 - 0.000 x10(3)/ L [facility] Blood 2023 3:53 AM EDT 2023 4:04 AM EDT Narrative Resulting Agency Comment Spec In Lab Corinne Saba MD HEMATOLOGY ORDERAB LES [facility] [place] [address] * (ABNORMAL) Basic Metabolic Panel (non-fasting) (2023 3:53 AM EDT) Glucose 99 65 - 199 mg/dL [facility] Comment:Diabetes: >=200 mg/d L plus symptoms Blood Urea Nitrogen 14 8 - 18 mg/dL [facility] Creatinine 1.26(H) 0.70 - 1.20 mg/dL [facility] Sodium 139 135 - 145 mmol/L [facility] Potassium 3.8 3.5 - 5.0 mmol/L [facility] Comment: Please note: ??Patients with WBC >100,000 may have falsely elevated Potassium levels. ??For accurate Potassium quantification in these patients send serum separator tube (gold top) for subsequent determinations. ??Contact the Clinical Chemistry Laboratory if there are any questions. Chloride 102 98 - 107 mmol/L [facility] Carbon Dioxide 24 22 - 31 mmol/L [facility] Anion Gap 13 5 - 15 mmol/L [facility] Calcium 9.2 8.5 - 10.5 mg/dL [facility] Est Glomerular Filtration Rate 49(L) >=60 mL/min/1. 73 m?? [facility] Comment: This patient's estimated GFR was [...] and symptoms in addition to eGFR. Blood 2023 3:53 AM EDT 2023 4:04 AM EDT Narrative Resulting Agency Comment Spec In Lab Emory Ross MD CHEMISTRY ORDER [place]KEISHA [facility] [place] [address] * Magnesium (2023 3:53 AM EDT) Magnesium 0.90 0.69 - 1.07 mmol/L [facility] Blood 2023 3:53 AM EDT 2023 4:04 AM EDT Narrative Resulting Agency Comment Spec In Lab Emory Ross MD CHEMISTRY ORDER [place]ISHA Performing Organization Address City/[facility] Co de Phone Number [facility] [place] [address] * Phosphorus (2023 3:53 AM EDT) Phosphorus 4.5 2.5 - 4.5 mg/dL [facility] Blood 2023 3:53 AM EDT 2023 4:04 AM EDT Narrative Resulting Agency Comment Spec In Lab Emory Ross MD CHEMISTRY ORDER LAKEISHA Performing Organization Address City/[facility] Co de Phone Number [facility] [place] [address] * EKG 12 Lead (12/02/2023 12:46 PM EDT) Ventricular rate 88 BPM MUSE SYSTEM Atrial Rate 88 BPM MUSE SYSTEM P-R Interval 136 ms MUSE SYSTEM QRS Duration 138 ms MUSE SYSTEM Q-T Interval 414 ms MUSE SYSTEM QTC Calculated (Bezet) 500 ms MUSE SYSTEM Calculated P [place] 67 degrees MUSE SYSTEM Calculated R [place] 39 degrees MUSE SYSTEM Calculated T [place] 71 degrees MUSE SYSTEM INTERPRETATION Normal sinus rhythm Possible Left atrial enlargement Left bundle branch block Abnormal ECG When compared with ECG of 28-NOV-2023 17:50, No significant change was found Confirmed by Solo Rausch ([id number]) on 12/06/2023 7:52:33 PM MUSE SYSTEM 12/02/2023 12:4 6 PM EDT 12/06/2023 7:52 PM EDT Arlin Jackson MD ECG ORDERABLES MUSE SYSTEM * CARDIAC CATHETERIZATION (12/02/2023 12:28 PM EDT) Anatomical Region Laterality Modality Other Narrative 12/02/2023 10:12 PM EDT ?[facility] ? Cardiac Catheterization/Intervention Report ? Patient Name: Oksana Betancourt. ? Procedure Date: 12/02/2023 ? A #: [id number] ? Primary Physician: Ryder Hargrove ? Case #: [id number] ? File Name: [id number] ? Catheterization Order Number: [id number] ? [facility] ? Final Report [place], [place] ? Patient Name: ? Oksana A. Keithan ?ID#: ?[id number] ? : ?1965 ? Procedure Date: ? December 02, 2023 ? Case #: ? [id number] ? Room: ? 5 ? Case Physician: ? Ryder Hargrove, M.D. ? Start: ?11:26 ?Fellow: ? Faustino Hernández M.D. ?Admission: ??11/28/2023 ? Discharge: ??12/04/2023 ? Referring Physician: ??Blaze Randall M.D. ? Procedures: ?* Coronary Angiography ?* Coronary Ultrasound ?* Coronary Angioplasty ?* Coronary Stent Insertion ?* Vascular Closure Device Deployment ?* Access Site Angiography ? History ?Oksana Betancourt is a 57 year old woman. She has hypertension. The ?patient's smoking status is Never. She has hypercholesterolemia managed ?with lipid therapy. The patient has a prior history of coronary artery ?disease. She had a coronary intervention procedure. The patient has a ?history of a prior aortic valve replacement. She has a total of one ?aortic valve surgery. The patient also has a history of cancer. Prior to ?the initiation of this procedure, the patient was designated as ASA Class ?III. The [facility] clinical frailty scale is 5: Mildly Frail. ? Diagnostic Tests: ?Prior Coronary Angiography: ? LV ejection fraction within 6 months is 44%. ?Electrocardiography: ? EKG was assessed by ECG. EKG was Normal. ?Medications Prior to Procedure: ? Ranolazine, Aspirin, Beta Krystal, Long Acting Nitrate and Statin. ? Indications for Diagnostic Cath: ?The priority of the diagnostic procedure was Urgent. The indication for ?the laboratory equipment cleaner visit is ACS greater than 24 hrs. Chest pain symptom ?assessment was: Typical Angina. ? Technique: ?A 6Fr sheath was inserted in the right femoral artery utilizing the ?Seldinger technique. The left coronary artery was injected utilizing a ?6Fr EBU 3.0 catheter. Coronary angioplasty and coronary stent insertion ?were performed and the equipment utilized will be described in the ?intervention summary section. 15,000 units of heparin were administered. ?A total of 150cc of Omnipaque were opened, 139cc of Omnipaque were ?administered and 11cc of Omnipaque were wasted. Radiation: Fluoro time ?was 17.7 minutes, dose area product was 40.80 Gy/cm2 and air kerma was ?535 mGY. See the case log for additional details. ?The patient received the following medications prior to and during the ?procedure: ? Unfractionated Heparin and Clopidogrel. ? Hemodynamics: ?Left Heart Pressures ? Resting: ? Syst Diast ? EDP ?a ?v ? m ?Ao 115 ?? 63 ?87 ? Coronary Angiography: ?Dominance: Right ?Left Main ? There was an 80% single discrete stenosis of the distal segment of ? the left main artery. ??The left main was large. ?Left Anterior Descending ? There was a 90% single discrete stenosis of the ostial segment of ? the left anterior descending artery (LAD). ??The LAD was large. ?Left Circumflex ? There was mild diffuse (<=25% stenosis) disease of the entire vessel ? segment of the left circumflex artery (LCX). ??The LCX was large. ? The previously placed stent is patent. The ostial segment of the LCX ? had a single discrete 75% stenosis. ?Right Coronary Artery ? This vessel was not injected. ? Intravascular Imaging/Physiology: ?Intravascular Ultrasound was performed in the distal LM using a 6 Fr EBU ?3.0 guiding catheter and a 3.1 Fr Refinity 42 MHz catheter using auto 1 ?mm/sec pullback. ??Imaging was successful. ??Image quality was good. ?Indication: IVUS performed for left main disease, pre intervention ?planning and post intervention assessment. ?IVUS performed after pre-dilation. ??IVUS performed after vessel ?manipulation. ?Findings Pre-Intervention: scattered plaque, calcification and with ?nodules. These measurements were performed after pre-dilation of the ?lesion. ?Findings Post-Intervention: The stent was well expanded and apposed. ?Conclusions: stent/intervention appears optimized. ?Intravascular Ultrasound was performed in the ostial LAD using a 6 Fr EBU ?3.0 guiding catheter and a 3.1 Fr Refinity 42 MHz catheter using auto 1 ?mm/sec pullback. ??Imaging was successful. ??Image quality was good. ?Indication: IVUS performed for pre intervention planning and post ?intervention assessment. ?IVUS performed after vessel manipulation. ?Findings Pre-Intervention: scattered plaque, calcification and with ?nodules. ?Findings Post-Intervention: The stent was well expanded and apposed. ?Conclusions: stent/intervention appears optimized. ? Indication for Intervention: ?Coronary intervention was indicated for treatment of a critical lesion ?post a myocardial infarction. The priority for the procedure was ?Elective. The NCDR indication for the procedure was NSTE-ACS. LVEF within ?one week was 40%. Syntax Score was Intermediate. Staged PCI was performed ?for multivessel disease. PCI is performed after surgical consult and ?Surgery Not Recommended. ? Intervention Summary: ?Left Main Artery ? Distal 80% ? Stent insertion was performed on the 80% stenosis in the ? distal segment of the left main. This was a de ellie lesion. ? According to the ACC/AHA classification system, this lesion ? was a type C high risk lesion. Primary prevention of ? restenosis was the indication for stent insertion. A guidewire ? was placed across this lesion. Vessel flow pre intervention ? was PARADISE 3. Lesion length was 10mm. The lesion involves a ? bifurcation with the LCX. This bifurcation lesion was treated ? with a single stent, side branch dilated post stent technique ? and a final kissing balloon post-dilation. ? Stent insertion was accomplished through a 6 Fr. EBU 3.0 ? guide. ??The lesion was predilated with a 2.50mm EUPHORA 12 MM ? balloon with a maximum inflation pressure of 12 atmospheres. ? A premounted 3.50 x 12 mm [place] (CRIS) was deployed ? with a maximum inflation pressure of 13 atmospheres. ? Following stent deployment, the lesion was dilated using a ? 4.00mm NC EMERGE 08 MM ??balloon with a maximum inflation ? pressure of 14 atmospheres. ? The final outcome was defined as successful. A coronary ? arteriolar vasodilator was administered as part of the ? intervention on this lesion. There was no residual stenosis ? following this intervention. The final PARADISE flow was 3. ?Left Anterior Descending Artery ? Ostial 90% ? Angioplasty was performed on the 90% stenosis in the ostial ? segment of the LAD. This was a de ellie lesion. This lesion was ? designated a type C high risk lesion based on ACC/AHA ? classification system. A guidewire was placed across this ? lesion. Vessel flow pre intervention was PARADISE 3. Lesion length ? was 8mm. This lesion was contiguous with LM-distal. ? Angioplasty was accomplished through a 6 Fr EBU 3.0 guide ? utilizing a NC EMERGE 12 MM balloon with a maximum size of ? 3.00mm and a maximum inflation pressure of 12 atmospheres. ? The final outcome was defined as successful. A coronary ? arteriolar vasodilator was administered as part of the ? intervention on this lesion. There was no residual stenosis ? following this intervention. The final PARADISE flow was 3. ?Left Circumflex Artery ? Ostial 75% ? Angioplasty was performed on the 75% stenosis in the ostial ? segment of the LCX. This was a de ellie lesion. According to ? the ACC/AHA classification system, this lesion was a type C ? high risk lesion. A guidewire was placed across this lesion. ? Vessel flow pre intervention was PARADISE 3. Lesion length was ? 8mm. ? Angioplasty was accomplished through a 6 Fr EBU 3.0 guide ? utilizing a NC EMERGE 12 MM balloon with a maximum size of ? 2.50mm and a maximum inflation pressure of 12 atmospheres. ? The final outcome was defined as successful. A coronary ? arteriolar vasodilator was administered as part of the ? intervention on this lesion. There was no residual stenosis ? following this intervention. The final PARADISE flow was 3. ? Vascular Access: ?Vascular Access Angiogram: ? A selective angiogram at the right femoral artery revealed no ? significant obstructive disease. ?Vascular Ultrasound: ? Ultrasound of the right femoral artery was used to guide access and ? showed vessel patent with mild disease. ?Vascular Access Management: ? A 6 Fr Perclose was deployed at the right femoral artery access ? site. This device was successful. Manual Compression of the right ? femoral artery access site was performed. ? Dual Antiplatelet (DAPT) Recommendations: ?Drug eluting stent (CRIS) inserted for stable ischemic heart disease ?(SIHD). ?P2Y12 Loading dose administered prior to arrival in the laboratory equipment cleaner. ?Recommended anti-platelet/anti-thrombotic regimen: ?Continue aspirin 81 mg daily for 1 month then stop. Restart aspirin 81 mg ?daily in 12 months and continue unless contraindicated. ?Continue clopidogrel 75 mg daily for 12 months then stop. ?Continue apixaban 5 mg twice daily for indefinitely. ?These recommendations are made at the time of the intervention. Patient ?and provider preferences or a changing clinical situation may require ?modification of this regimen. Consult [facility] Interventional [facility]iology for ?questions. ? Conclusions: ?* Obstructive disease of the LM, LAD and LCX ?* Successful angioplasty of the ostial LAD lesion ?* Successful stent insertion of the distal LM lesion ?* Successful angioplasty of the ostial LCX lesion ?* See Dual Antiplatelet (DAPT) Recommendations above ? Complications/Events: ?The patient had no complications during these procedures. ? Post Procedure Fluid Recommendations: ?IV fluid at 328 mL/hr for 4 hours for a total of 1,312 mL. These ?recommendations are made at the time of the procedure. Patient and ?provider preferences or a changing clinical situation may require ?modification of this regimen. ? Comments: ?This was a planned PCI of the LM/LAD/LCX bifurcation. A 6 wallisian EBU 3.0 ?guide was used to engage the LM through the Evolut valve frame. The LAD ?And LCX were wired with workhorse wires. The LAD was pre-dilated and IVUS ?was performed to the LCX and LAD which showed stents in the LCX ostial ?vessel to mid vessel with a small area of unstented area between the ?stents. We placed a 3.5 x 12 mm [place] CRIS to the LAD landing just ?proximal to an aneurysmal section in the proximal LAD. We performed POT ?with a 4.0 NC balloon and a kissing balloon inflation with a 2.5 NC in ?the LCX and a 3.0 NC in the LAD. There was an excellent final ?angiographic and IVUS result without any complications. ?The attending physician was present for the entire procedure. ?Dr. Ryder Hargrove M.D. was present during the moderate sedation ?intraservice time as documented by the sedation nurse. ??Case time = 00:57. ?Dr. Ryder Hargrove M.D. performed the coronary angiography, stent ?insertion-coronary, IVUS # coronary, access site angiography, vascular ?closure device and angioplasty-coronary. ? Ryder Lebron Beena, M.D. ? Electronically Signed by: Ryder Sampsonstein, M.D. ? Report Finalized: 12/02/2023 ??13:15 ? Report Last Ammended: 01/25/2024 ??13:15 ? Procedure Note Ryder Hargrove MD - 01/25/2024 [facility] Cardiac Catheterization/Intervention Report Patient Name: Oksana Betancourt Procedure Date: 12/02/2023 A #: [id number] Primary Physician: Ryder Hargrove Case #: [id number] File Name: [id number] Catheterization Order Number: [id number] [facility] FinalReport [place], [place] Patient Name: Oksana Betancourt ID#:[id number] :1965 Procedure Date: December 02, 2023 Case #: [id number] Room: 5 Case Physician: Ryder Hargrove M.D. Start: 11:26 Fellow: Faustino Hernández M.D. Admission:11/28/2023 Discharge:12/04/2023 Referring Physician: Blaze Randall M.D. Procedures: * Coronary Angiography * Coronary Ultrasound * Coronary Angioplasty * Coronary Stent Insertion * Vascular Closure Device Deployment * Access Site Angiography History Oksana Betancourt is a 57 year old woman. She has hypertension. The patient's smoking status is Never. She has hypercholesterolemiamanaged with lipid therapy. The patient has a prior history of coronaryartery disease. She had a coronary intervention procedure. The patient hasa history of a prior aortic valve replacement. She has a total of one aortic valve surgery. The patient also has a history of cancer.Prior to the initiation of this procedure, the patient was designated as ASAClass III. The [facility] clinical frailty scale is 5: Mildly Frail. Diagnostic Tests: Prior Coronary Angiography: LV ejection fraction within 6 months is 44%. Electrocardiography: EKG was assessed by ECG. EKG was Normal. Medications Prior to Procedure: Ranolazine, Aspirin, Beta Krystal, Long Acting Nitrate andStatin. Indications for Diagnostic Cath: The priority of the diagnostic procedure was Urgent. The indicationfor the laboratory equipment cleaner visit is ACS greater than 24 hrs. Chest pain symptom assessment was: Typical Angina. Technique: A 6Fr sheath was inserted in the right femoral artery utilizing the Seldinger technique. The left coronary artery was injected utilizinga 6Fr EBU 3.0 catheter. Coronary angioplasty and coronary stentinsertion were performed and the equipment utilized will be described in the intervention summary section. 15,000 units of heparin wereadministered. A total of 150cc of Omnipaque were opened, 139cc of Omnipaque were administered and 11cc of Omnipaque were wasted. Radiation: Fluorotime was 17.7 minutes, dose area product was 40.80 Gy/cm2 and air kermawas 535 mGY. See the case log for additional details. The patient received the following medications prior to and duringthe procedure: Unfractionated Heparin and Clopidogrel. Hemodynamics: Left Heart Pressures Resting: Syst Diast EDP a v m Ao 115 63 87 Coronary Angiography: Dominance: Right Left Main There was an 80% single discrete stenosis of the distal segmentof the left main artery. The left main was large. Left Anterior Descending There was a 90% single discrete stenosis of the ostial segmentof the left anterior descending artery (LAD). The LAD was large. Left Circumflex There was mild diffuse (<=25% stenosis) disease of the entirevessel segment of the left circumflex artery (LCX). The LCX waslarge. The previously placed stent is patent. The ostial segment ofthe LCX had a single discrete 75% stenosis. Right Coronary Artery This vessel was not injected. Intravascular Imaging/Physiology: Intravascular Ultrasound was performed in the distal LM using a 6 FrEBU 3.0 guiding catheter and a 3.1 Fr Refinity 42 MHz catheter usingauto 1 mm/sec pullback. Imaging was successful. Image quality was good. Indication: IVUS performed for left main disease, pre intervention planning and post intervention assessment. IVUS performed after pre-dilation. IVUS performed after vessel manipulation. Findings Pre-Intervention: scattered plaque, calcification and with nodules. These measurements were performed after pre-dilation of the lesion. Findings Post-Intervention: The stent was well expanded and apposed. Conclusions: stent/intervention appears optimized. Intravascular Ultrasound was performed in the ostial LAD using a 6Fr EBU 3.0 guiding catheter and a 3.1 Fr Refinity 42 MHz catheter usingauto 1 mm/sec pullback. Imaging was successful. Image quality was good. Indication: IVUS performed for pre intervention planning and post intervention assessment. IVUS performed after vessel manipulation. Findings Pre-Intervention: scattered plaque, calcification and with nodules. Findings Post-Intervention: The stent was well expanded and apposed. Conclusions: stent/intervention appears optimized. Indication for Intervention: Coronary intervention was indicated for treatment of a criticallesion post a myocardial infarction. The priority for the procedure was Elective. The NCDR indication for the procedure was NSTE-ACS. LVEFwithin one week was 40%. Syntax Score was Intermediate. Staged PCI wasperformed for multivessel disease. PCI is performed after surgical consult and Surgery Not Recommended. Intervention Summary: Left Main Artery Distal 80% Stent insertion was performed on the 80% stenosis in the distal segment of the left main. This was a de novolesion. According to the ACC/AHA classification system, thislesion was a type C high risk lesion. Primary prevention of restenosis was the indication for stent insertion. Aguidewire was placed across this lesion. Vessel flow preintervention was PARADISE 3. Lesion length was 10mm. The lesion involves a bifurcation with the LCX. This bifurcation lesion wastreated with a single stent, side branch dilated post stenttechnique and a final kissing balloon post-dilation. Stent insertion was accomplished through a 6 Fr. EBU 3.0 guide. The lesion was predilated with a 2.50mm [id number] MM balloon with a maximum inflation pressure of 12atmospheres. A premounted 3.50 x 12 mm [place] (CRIS) wasdeployed with a maximum inflation pressure of 13 atmospheres. Following stent deployment, the lesion was dilated usinga 4.00mm NC EMERGE 08 MM balloon with a maximum inflation pressure of 14 atmospheres. The final outcome was defined as successful. A coronary arteriolar vasodilator was administered as part of the intervention on this lesion. There was no residualstenosis following this intervention. The final PARADISE flow was 3. Left Anterior Descending Artery Ostial 90% Angioplasty was performed on the 90% stenosis in theostial segment of the LAD. This was a de ellie lesion. Thislesion was designated a type C high risk lesion based on ACC/AHA classification system. A guidewire was placed across this lesion. Vessel flow pre intervention was PARADISE 3. Lesionlength was 8mm. This lesion was contiguous with LM-distal. Angioplasty was accomplished through a 6 Fr EBU 3.0 guide utilizing a NC EMERGE 12 MM balloon with a maximum sizeof 3.00mm and a maximum inflation pressure of 12atmospheres. The final outcome was defined as successful. A coronary arteriolar vasodilator was administered as part of the intervention on this lesion. There was no residualstenosis following this intervention. The final PARADISE flow was 3. Left Circumflex Artery Ostial 75% Angioplasty was performed on the 75% stenosis in theostial segment of the LCX. This was a de ellie lesion. Accordingto the ACC/AHA classification system, this lesion was a typeC high risk lesion. A guidewire was placed across thislesion. Vessel flow pre intervention was PARADISE 3. Lesion lengthwas 8mm. Angioplasty was accomplished through a 6 Fr EBU 3.0 guide utilizing a NC EMERGE 12 MM balloon with a maximum sizeof 2.50mm and a maximum inflation pressure of 12atmospheres. The final outcome was defined as successful. A coronary arteriolar vasodilator was administered as part of the intervention on this lesion. There was no residualstenosis following this intervention. The final PARADISE flow was 3. Vascular Access: Vascular Access Angiogram: A selective angiogram at the right femoral artery revealed no significant obstructive disease. Vascular Ultrasound: Ultrasound of the right femoral artery was used to guide accessand showed vessel patent with mild disease. Vascular Access Management: A 6 Fr Perclose was deployed at the right femoral artery access site. This device was successful. Manual Compression of theright femoral artery access site was performed. Dual Antiplatelet (DAPT) Recommendations: Drug eluting stent (CRIS) inserted for stable ischemic heart disease (SI). P2Y12 Loading dose administered prior to arrival in the laboratory equipment cleaner. Recommended anti-platelet/anti-thrombotic regimen: Continue aspirin 81 mg daily for 1 month then stop. Restart jysphoh03 mg daily in 12 months and continue unless contraindicated. Continue clopidogrel 75 mg daily for 12 months then stop. Continue apixaban 5 mg twice daily for indefinitely. These recommendations are made at the time of the intervention.Patient and provider preferences or a changing clinical situation mayrequire modification of this regimen. Consult [facility] Interventional Cardiologyfor questions. Conclusions: * Obstructive disease of the LM, LAD and LCX * Successful angioplasty of the ostial LAD lesion * Successful stent insertion of the distal LM lesion * Successful angioplasty of the ostial LCX lesion * See Dual Antiplatelet (DAPT) Recommendations above Complications/Events: The patient had no complications during these procedures. Post Procedure Fluid Recommendations: IV fluid at 328 mL/hr for 4 hours for a total of 1,312 mL. These recommendations are made at the time of the procedure. Patient and provider preferences or a changing clinical situation may require modification of this regimen. Comments: This was a planned PCI of the LM/LAD/LCX bifurcation. A 6 wallisian EBU3.0 guide was used to engage the LM through the Evolut valve frame. TheLAD And LCX were wired with workhorse wires. The LAD was pre-dilated andIVUS was performed to the LCX and LAD which showed stents in the LCXostial vessel to mid vessel with a small area of unstented area between the stents. We placed a 3.5 x 12 mm [place] CRIS to the LAD landingjust proximal to an aneurysmal section in the proximal LAD. We performedPOT with a 4.0 NC balloon and a kissing balloon inflation with a 2.5 NCin the LCX and a 3.0 NC in the LAD. There was an excellent final angiographic and IVUS result without any complications. The attending physician was present for the entire procedure. Dr. Ryder Hargrove M.D. was present during the moderate sedation intraservice time as documented by the sedation nurse. Case time =00:57. Dr. Ryder Hargrove M.D. performed the coronary angiography, stent insertion-coronary, IVUS # coronary, access site angiography, vascular closure device and angioplasty-coronary. Ryder Hargrove M.D. Electronically Signed by: Ryder Hargrove M.D. Report Finalized: 12/02/2023 13:15 Report Last Ammended: 01/25/2024 13:15 Ryder Hargrove MD CARDIAC CATH ORDERAB LES * (ABNORMAL) Differential, Automated (12/02/2023 3:09 AM EDT) Neutrophil % 51.4 % [facility] Neutrophil Absolute 5.53 1.70 - 6.10 x10(3)/mc L [facility] Lymph % 37.4 % [facility] Lymphocytes Abs 4.0(H) 0.9 - 3.2 x10(3)/ L [facility] Monocyte % 8.6 % [facility] Monocyte Abs 0.9 0.3 - 0.9 x10(3)/[facility] Eos % 2.0 % [facility] Eosinophils Abs 0.2 0.0 - 0.4 x10(3)/mc L [facility] Basophil % 0.3 % [facility] Baso Absolute 0.0 0.0 - 0.1 x10(3)/ L [facility] Immature Gran % 0.30 % [facility] Comment: Immature granulocytes(IG's)percentage and absolute count will include metamyelocytes, myelocytes, and promyelocytes. Blood smears from CBCs yielding IG's will be scanned manually for concordance. If this scan disagrees with the automated IG or if promyelocytes are noted, a manual differential will be performed. Immature Gran Absolute 0.03 0.00 - 0.04 x10(3)/mc L [facility] Blood 12/02/2023 3:09 AM EDT 12/02/2023 3:44 AM EDT Narrative Resulting Agency Comment Spec In Lab Corinne Saba MD HEMATOLOGY ORDERAB LES [facility] [place] [address] * (ABNORMAL) Hemogram (12/02/2023 3:09 AM EDT) White Blood Cell 10.8(H) 4.0 - 9.5 x10(3)/mc L [facility] Red Blood Cell 3.29(L) 4.00 - 5.21 x10(6)/mc L [facility] Hemoglobin 10.1(L) 11.7 - 15.5 g/dL [facility] Hematocrit 31.3(L) 35.7 - 45.8 % [facility] Mean Cell Volume 95.1(H) 82.6 - 94.4 fL [facility] Mean Cell Hemoglobin 30.7 27.1 - 32.0 pg [facility] Mean Cell Hemoglobin Concentration 32.3 31.7 - 35.0 g/dL [facility] Platelet 316 145 - 357 x10(3)/mc L [facility] RDW Standard Deviation 52.9(H) 37.0 - 46.0 fL [facility] RDW coefficient of variation 15.0(H) 11.5 - 14.1 % [facility] Mean Platelet Volume 11.8 7.6 - 12.9 fL [facility] NRBC% auto 0.0 % [facility] NRBC Absolute 0.000 0.000 - 0.000 x10(3)/ L [facility] Blood 12/02/2023 3:09 AM EDT 12/02/2023 3:44 AM EDT Narrative Resulting Agency Comment Spec In Lab Corinne Saba MD HEMATOLOGY ORDERAB LES Performing Organization Address City/State/[facility] Co de Phone Number [facility] [place] [address] * Heparin (unfractionated) Level (12/02/2023 3:09 AM EDT) UF Heparin 0.31 IU/mL [facility] [facility] Comment: Heparin (anti-Xa) levels should be determined in a plasma sample that has been drawn 6 hours after a dose change to approximate steady-state for continuous heparin infusions. Indication specific Heparin (anti-Xa) levels based on order set selection: Acute DVT or PE treatment: 0.3 ? 0.7 IU/mL Thrombosis Prevention (eg. atrial fibrillation, jasper-procedural bridging, mechanical valves): 0.3 ? 0.7 IU/mL Acute Coronary Syndrome: 0.3 ? 0.7 IU/mL Stroke Indications: 0.3 ? 0.5 IU/mL Ultra-low intensity (select indications in cardiac surgery): 0.1 ? 0.3 IU/mL Blood 12/02/2023 3:09 AM EDT 12/02/2023 3:44 AM EDT Narrative Resulting Agency Comment Spec In Lab Emory Ross MD HEMATOLOGY CHASE GUTIERREZ [facility] [place] [place] [address] * (ABNORMAL) Basic Metabolic Panel (non-fasting) (12/02/2023 3:09 AM EDT) Glucose 95 65 - 199 mg/dL [facility] Comment:Diabetes: >=200 mg/d L plus symptoms Blood Urea Nitrogen 16 8 - 18 mg/dL [facility] Creatinine 1.25(H) 0.70 - 1.20 mg/dL [facility] Sodium 141 135 - 145 mmol/L [facility] Potassium 3.9 3.5 - 5.0 mmol/L [facility] Comment: Please note: ??Patients with WBC >100,000 may have falsely elevated Potassium levels. ??For accurate Potassium quantification in these patients send serum separator tube (gold top) for subsequent determinations. ??Contact the Clinical Chemistry Laboratory if there are any questions. Chloride 105 98 - 107 mmol/L [facility] Carbon Dioxide 25 22 - 31 mmol/L [facility] Anion Gap 11 5 - 15 mmol/L [facility] Calcium 9.3 8.5 - 10.5 mg/dL [facility] Est Glomerular Filtration Rate 50(L) >=60 mL/min/1. 73 m?? [facility] Comment: This patient's estimated GFR was [...] and symptoms in addition to eGFR. Blood 12/02/2023 3:09 AM EDT 12/02/2023 3:44 AM EDT Narrative Resulting Agency Comment Spec In Lab Emory Ross MD CHEMISTRY ORDER LAKEISHA [facility] [place] [address] * Magnesium (12/02/2023 3:09 AM EDT) Magnesium 0.95 0.69 - 1.07 mmol/L [facility] Blood 12/02/2023 3:09 AM EDT 12/02/2023 3:44 AM EDT Narrative Resulting Agency Comment Spec In Lab Emory Ross MD CHEMISTRY ORDER LAKEISHA Performing Organization Address City/[facility]/ZIP Co de Phone Number [facility] [place] [address] * Phosphorus (12/02/2023 3:09 AM EDT) Phosphorus 4.1 2.5 - 4.5 mg/dL [facility] Blood 12/02/2023 3:09 AM EDT 12/02/2023 3:44 AM EDT Narrative Resulting Agency Comment Spec In Lab Emory Ross MD CHEMISTRY ORDER LAKEISHA Performing Organization Address City/[facility]/ZIP Co de Phone Number [facility] [place] [address] * Heparin (unfractionated) Level (12/01/2023 8:55 PM EDT) UF Heparin 0.34 IU/mL [facility] Comment: Heparin (anti-Xa) levels should be determined in a plasma sample that has been drawn 6 hours after a dose change to approximate steady-state for continuous heparin infusions. Indication specific Heparin (anti-Xa) levels based on order set selection: Acute DVT or PE treatment: 0.3 ? 0.7 IU/mL Thrombosis Prevention (eg. atrial fibrillation, jasper-procedural bridging, mechanical valves): 0.3 ? 0.7 IU/mL Acute Coronary Syndrome: 0.3 ? 0.7 IU/mL Stroke Indications: 0.3 ? 0.5 IU/mL Ultra-low intensity (select indications in cardiac surgery): 0.1 ? 0.3 IU/mL Blood 12/01/2023 8:55 PM EDT 12/01/2023 9:00 PM EDT Narrative Resulting Agency Comment Spec In Lab Emory Ross MD HEMATOLOGY ORDSamir GUTIERREZ Performing Organization Address [facility]/ZIP Co de Phone Number [facility] [place] [address] * Heparin (unfractionated) Level (12/01/2023 2:12 PM EDT) UF Heparin 0.25 IU/mL [facility] Comment: Heparin (anti-Xa) levels should be determined in a plasma sample that has been drawn 6 hours after a dose change to approximate steady-state for continuous heparin infusions. Indication specific Heparin (anti-Xa) levels based on order set selection: Acute DVT or PE treatment: 0.3 ? 0.7 IU/mL Thrombosis Prevention (eg. atrial fibrillation, jasper-procedural bridging, mechanical valves): 0.3 ? 0.7 IU/mL Acute Coronary Syndrome: 0.3 ? 0.7 IU/mL Stroke Indications: 0.3 ? 0.5 IU/mL Ultra-low intensity (select indications in cardiac surgery): 0.1 ? 0.3 IU/mL Blood 12/01/2023 2:12 PM EDT 12/01/2023 2:35 PM EDT Narrative Resulting Agency Comment Spec In Lab Emory Ross MD HEMATOLOGY ORDSamir GUTIERREZ Performing Organization Address City/[facility]/ZIP Co de Phone Number [facility] [place] [address] * Heparin (unfractionated) Level (12/01/2023 8:11 AM EDT) Pathologist [facility] UF Heparin 0.25 IU/mL [facility] Comment: Heparin (anti-Xa) levels should be determined in a plasma sample that has been drawn 6 hours after a dose change to approximate steady-state for continuous heparin infusions. Indication specific Heparin (anti-Xa) levels based on order set selection: Acute DVT or PE treatment: 0.3 ? 0.7 IU/mL Thrombosis Prevention (eg. atrial fibrillation, jasper-procedural bridging, mechanical valves): 0.3 ? 0.7 IU/mL Acute Coronary Syndrome: 0.3 ? 0.7 IU/mL Stroke Indications: 0.3 ? 0.5 IU/mL Ultra-low intensity (select indications in cardiac surgery): 0.1 ? 0.3 IU/mL Blood 12/01/2023 8:11 AM EDT 12/01/2023 8:24 AM EDT Narrative Resulting Agency Comment Spec In Lab Emory Ross MD HEMATOLOGY CHASE GUTIERREZ [facility] [place] [address] * (ABNORMAL) Differential, Automated (12/01/2023 4:42 AM EDT) Pathologist [facility] Neutrophil % 56.4 % [facility] Neutrophil Absolute 5.69 1.70 - 6.10 x10(3)/mc L [facility] Lymph % 35.0 % [facility] Lymphocytes Abs 3.5(H) 0.9 - 3.2 x10(3)/mc L [facility] Monocyte % 7.4 % [facility] Monocyte Abs 0.8 0.3 - 0.9 x10(3)/mc L [facility] Eos % 0.6 % [facility] Eosinophils Abs 0.1 0.0 - 0.4 x10(3)/mc L [facility] Basophil % 0.3 % [facility] Baso Absolute 0.0 0.0 - 0.1 x10(3)/mc L [facility] Immature Gran % 0.30 % [facility] Comment: Immature granulocytes(IG's)percentage and absolute count will include metamyelocytes, myelocytes, and promyelocytes. Blood smears from CBCs yielding IG's will be scanned manually for concordance. If this scan disagrees with the automated IG or if promyelocytes are noted, a manual differential will be performed. Immature Gran Absolute 0.03 0.00 - 0.04 x10(3)/mc L [facility] Blood 12/01/2023 4:42 AM EDT 12/01/2023 5:13 AM EDT Narrative Resulting Agency Comment Spec In Lab Corinne Saba MD HEMATOLOGY ORDERAB LES [facility] [place] [address] * (ABNORMAL) Hemogram (12/01/2023 4:42 AM EDT) White Blood Cell 10.1(H) 4.0 - 9.5 x10(3)/mc L [facility] Red Blood Cell 3.30(L) 4.00 - 5.21 x10(6)/mc L [facility] Hemoglobin 10.1(L) 11.7 - 15.5 g/dL [facility] Hematocrit 31.8(L) 35.7 - 45.8 % [facility] Mean Cell Volume 96.4(H) 82.6 - 94.4 fL [facility] Mean Cell Hemoglobin 30.6 27.1 - 32.0 pg [facility] Mean Cell Hemoglobin Concentration 31.8 31.7 - 35.0 g/dL [facility] Platelet 258 145 - 357 x10(3)/mc L [facility] RDW Standard Deviation 54.9(H) 37.0 - 46.0 fL [facility] RDW coefficient of variation 15.4(H) 11.5 - 14.1 % [facility] Mean Platelet Volume 12.8 7.6 - 12.9 fL [facility] NRBC% auto 0.3 % [facility] NRBC Absolute 0.030(H) 0.000 - 0.000 x10(3)/mc L [facility] Blood 12/01/2023 4:42 AM EDT 12/01/2023 5:13 AM EDT Narrative Resulting Agency Comment Spec In Lab Corinne Saba MD HEMATOLOGY ORDERAB LES [facility] [place] [address] * (ABNORMAL) Basic Metabolic Panel (non-fasting) (12/01/2023 4:42 AM EDT) Glucose 103 65 - 199 mg/dL [facility] Comment:Diabetes: >=200 mg/d L plus symptoms Blood Urea Nitrogen 19(H) 8 - 18 mg/dL [facility] Creatinine 1.20 0.70 - 1.20 mg/dL [facility] Sodium 138 135 - 145 mmol/L [facility] Potassium 3.9 3.5 - 5.0 mmol/L [facility] Comment: Please note: ??Patients with WBC >100,000 may have falsely elevated Potassium levels. ??For accurate Potassium quantification in these patients send serum separator tube (gold top) for subsequent determinations. ??Contact the Clinical Chemistry Laboratory if there are any questions. Chloride 104 98 - 107 mmol/L [facility] Carbon Dioxide 25 22 - 31 mmol/L [facility] Anion Gap 9 5 - 15 mmol/L [facility] Calcium 8.6 8.5 - 10.5 mg/dL [facility] Est Glomerular Filtration Rate 52(L) >=60 mL/min/1. 73 m?? [facility] Comment: This patient's estimated GFR was [...] and symptoms in addition to eGFR. Blood 12/01/2023 4:42 AM EDT 12/01/2023 5:13 AM EDT Narrative Resulting Agency Comment Spec In Lab Emory Ross MD CHEMISTRY ORDER LAKEISHA [facility] [place] [address] * Magnesium (12/01/2023 4:42 AM EDT) Magnesium 0.93 0.69 - 1.07 mmol/L [facility] Blood 12/01/2023 4:42 AM EDT 12/01/2023 5:13 AM EDT Narrative Resulting Agency Comment Spec In Lab Emory Ross MD CHEMISTRY ORDER LAKEISHA Performing Organization Address City/[facility] Co de Phone Number [facility] [place] [address] * Phosphorus (12/01/2023 4:42 AM EDT) Phosphorus 3.2 2.5 - 4.5 mg/dL [facility] Blood 12/01/2023 4:42 AM EDT 12/01/2023 5:13 AM EDT Narrative Resulting Agency Comment Spec In Lab Emory Ross MD CHEMISTRY ORDER LAKEISHA Performing Organization Address City/[facility] Co de Phone Number [facility] [place] [address] * POCT Glucose (11/30/2023 10:58 AM EDT) Glucose, POC 143 65 - 199 mg/dL [facility] Comment: Supplemental ranges: <140 mg/dL before meals <180 mg/dL all other times of the day Blood 11/30/2023 10:5 8 AM EDT 11/30/2023 10:58 AM EDT Jose Jay DO POINT OF CARE TEST ORDERABLES Performing Organization Address City/[facility]/ZIP Co de Phone Number [facility] [place] [address] * POCT Glucose (11/30/2023 7:43 AM EDT) Pathologist [facility] Glucose, POC 118 65 - 199 mg/dL [facility] Comment: Supplemental ranges: <140 mg/dL before meals <180 mg/dL all other times of the day Blood 11/30/2023 7:43 AM EDT 11/30/2023 7:43 AM EDT Jose Jay DO POINT OF CARE TEST ORDERABLES Performing Organization Address City/[facility]/ZIP Co de Phone Number [facility] [place] [address] * Heparin (unfractionated) Level (11/30/2023 5:50 AM EDT) [facility] UF Heparin 0.55 IU/mL [facility] Comment: Heparin (anti-Xa) levels should be determined in a plasma sample that has been drawn 6 hours after a dose change to approximate steady-state for continuous heparin infusions. Indication specific Heparin (anti-Xa) levels based on order set selection: Acute DVT or PE treatment: 0.3 ? 0.7 IU/mL Thrombosis Prevention (eg. atrial fibrillation, jasper-procedural bridging, mechanical valves): 0.3 ? 0.7 IU/mL Acute Coronary Syndrome: 0.3 ? 0.7 IU/mL Stroke Indications: 0.3 ? 0.5 IU/mL Ultra-low intensity (select indications in cardiac surgery): 0.1 ? 0.3 IU/mL Blood 11/30/2023 5:50 AM EDT 11/30/2023 5:53 AM EDT Narrative Resulting Agency Comment Spec In Lab Emory Ross MD HEMATOLOGY CHASE GUTIERREZ Performing Organization Address City/[facility]/ZIP Co de Phone Number [facility] [place] [address] * (ABNORMAL) Differential, Automated (11/30/2023 12:40 AM EDT) [facility] Neutrophil % 74.1 % [facility] Neutrophil Absolute 12.54(H) 1.70 - 6.10 x10(3)/mc L [facility] Lymph % 20.0 % [facility] Lymphocytes Abs 3.4(H) 0.9 - 3.2 x10(3)/ L [facility] Monocyte % 5.2 % [facility] Monocyte Abs 0.9 0.3 - 0.9 x10(3)/ L [facility] Eos % 0.1 % [facility] Eosinophils Abs 0.0 0.0 - 0.4 x10(3)/[facility] LAB[facility]AT[facility] Basophil % 0.1 % [facility] Baso Absolute 0.0 0.0 - 0.1 x10(3)/ L [facility] Immature Gran % 0.50 % [facility] Comment: Immature granulocytes(IG's)percentage and absolute count will include metamyelocytes, myelocytes, and promyelocytes. Blood smears from CBCs yielding IG's will be scanned manually for concordance. If this scan disagrees with the automated IG or if promyelocytes are noted, a manual differential will be performed. Immature Gran Absolute 0.09(H) 0.00 - 0.04 x10(3)/ L [facility] Blood 11/30/2023 12:4 0 AM EDT 11/30/2023 12:48 AM EDT Narrative Resulting Agency Comment Spec In Lab Corinne Saba MD HEMATOLOGY ORDERAB LES Performing Organization Address City/State/[facility] Co de Phone Number [facility] [place] [address] * (ABNORMAL) Hemogram (11/30/2023 12:40 AM EDT) White Blood Cell 16.9(H) 4.0 - 9.5 x10(3)/ L [facility] Red Blood Cell 3.09(L) 4.00 - 5.21 x10(6)/ L [facility] Hemoglobin 9.6(L) 11.7 - 15.5 g/dL [facility] Hematocrit 30.1(L) 35.7 - 45.8 % [facility] Mean Cell Volume 97.4(H) 82.6 - 94.4 fL [facility] Mean Cell Hemoglobin 31.1 27.1 - 32.0 pg [facility] Mean Cell Hemoglobin Concentration 31.9 31.7 - 35.0 g/dL [facility] Platelet 281 145 - 357 x10(3)/mc L [facility] RDW Standard Deviation 55.5(H) 37.0 - 46.0 fL [facility] RDW coefficient of variation 15.5(H) 11.5 - 14.1 % [facility] Mean Platelet Volume 12.3 7.6 - 12.9 fL [facility] NRBC% auto 0.0 % [facility] NRBC Absolute 0.000 0.000 - 0.000 x10(3)/mc L [facility] Blood 11/30/2023 12:4 0 AM EDT 11/30/2023 12:48 AM EDT Narrative Resulting Agency Comment Spec In Lab Corinne Saba MD HEMATOLOGY ORDERAB LES Performing Organization Address City/State/[facility] Co de Phone Number [facility] [address] * (ABNORMAL) Basic Metabolic Panel (non-fasting) (11/30/2023 12:40 AM EDT) Glucose 115 65 - 199 mg/dL [facility] Comment:Diabetes: >=200 mg/d L plus symptoms Blood Urea Nitrogen 25(H) 8 - 18 mg/dL [facility] Creatinine 1.65(H) 0.70 - 1.20 mg/dL [facility] Sodium 141 135 - 145 mmol/L [facility] Potassium 4.0 3.5 - 5.0 mmol/L [facility] Comment: Please note: ??Patients with WBC >100,000 may have falsely elevated Potassium levels. ??For accurate Potassium quantification in these patients send serum separator tube (gold top) for subsequent determinations. ??Contact the Clinical Chemistry Laboratory if there are any questions. Chloride 106 98 - 107 mmol/L [facility] Carbon Dioxide 26 22 - 31 mmol/L [facility] Anion Gap 9 5 - 15 mmol/L [facility] Calcium 8.7 8.5 - 10.5 mg/dL [facility] Est Glomerular Filtration Rate 36(L) >=60 mL/min/1. 73 m?? [facility] Comment: This patient's estimated GFR was [...] and symptoms in addition to eGFR. Blood 11/30/2023 12:4 0 AM EDT 11/30/2023 12:48 AM EDT Narrative Resulting Agency Comment Spec In Lab Emory Ross MD CHEMISTRY ORDER LAKEISHA Performing Organization Address [facility] Co de Phone Number [facility] [place] [address] * Magnesium (11/30/2023 12:40 AM EDT) Magnesium 0.94 0.69 - 1.07 mmol/L [facility] Blood 11/30/2023 12:4 0 AM EDT 11/30/2023 12:48 AM EDT Narrative Resulting Agency Comment Spec In Lab Emory Ross MD CHEMISTRY ORDER LAKEISHA Performing Organization Address City/[facility] Co de Phone Number [facility] [place] [address] * Phosphorus (11/30/2023 12:40 AM EDT) Phosphorus 3.2 2.5 - 4.5 mg/dL [facility] Blood 11/30/2023 12:4 0 AM EDT 11/30/2023 12:48 AM EDT Narrative Resulting Agency Comment Spec In Lab Emory Ross MD CHEMISTRY ORDER LAKEISHA Performing Organization Address City/[facility] [place] [address] * Heparin (unfractionated) Level (11/30/2023 12:40 AM EDT) UF Heparin 0.56 IU/mL [facility] Comment: Heparin (anti-Xa) levels should be determined in a plasma sample that has been drawn 6 hours after a dose change to approximate steady-state for continuous heparin infusions. Indication specific Heparin (anti-Xa) levels based on order set selection: Acute DVT or PE treatment: 0.3 ? 0.7 IU/mL Thrombosis Prevention (eg. atrial fibrillation, jasper-procedural bridging, mechanical valves): 0.3 ? 0.7 IU/mL Acute Coronary Syndrome: 0.3 ? 0.7 IU/mL Stroke Indications: 0.3 ? 0.5 IU/mL Ultra-low intensity (select indications in cardiac surgery): 0.1 ? 0.3 IU/mL Blood 11/30/2023 12:4 0 AM EDT 11/30/2023 12:48 AM EDT Narrative Resulting Agency Comment Spec In Lab Emory Ross MD HEMATOLOGY [place] [address] * Heparin (unfractionated) Level (11/29/2023 4:20 PM EDT) UF Heparin 0.84 IU/mL [facility] Comment: Heparin (anti-Xa) levels should be determined in a plasma sample that has been drawn 6 hours after a dose change to approximate steady-state for continuous heparin infusions. Indication specific Heparin (anti-Xa) levels based on order set selection: Acute DVT or PE treatment: 0.3 ? 0.7 IU/mL Thrombosis Prevention (eg. atrial fibrillation, jasper-procedural bridging, mechanical valves): 0.3 ? 0.7 IU/mL Acute Coronary Syndrome: 0.3 ? 0.7 IU/mL Stroke Indications: 0.3 ? 0.5 IU/mL Ultra-low intensity (select indications in cardiac surgery): 0.1 ? 0.3 IU/mL Blood 11/29/2023 4:20 PM EDT 11/29/2023 4:54 PM EDT Narrative Resulting Agency Comment Spec In Lab Emory Ross MD HEMATOLOGY CHASE GUTIERREZ [facility] [place] [address] * CT Chest wo Contrast (Generic) (11/29/2023 1:05 PM EDT) Anatomical Region Laterality Modality Chest Computed Tomogra phy Impressions 11/30/2023 11:07 AM EDT 1. ??Prominent noncontiguous calcifications of the ascending aorta. Aortic stent valve extending into the proximal ascending aorta. 2. ??Pulmonary alveolar and interstitial edema. Superimposed aspiration/pneumonia may have a similar appearance. 3. ??Small bilateral pleural effusions. I have personally reviewed the image(s) and the resident's interpretation and agree with the findings, Marco A Glynn MD at 11/30/2023 11:07 AM Thank you for letting us participate in the care of this patient. ??If you are a health care provider and have any questions regarding this report, please contact the number below. ??For patients who have questions please contact the health wound care technician that requested your imaging first. ? Electronically signed by: Marco A Glynn MD, [facility] ([phone]), at 11/30/2023 11:07 AM Narrative 11/30/2023 11:07 AM EDT EXAMINATION: CT CHEST WO CONTRAST (GENERIC) CLINICAL HISTORY: hx of porcelain aorta, confirming TECHNIQUE: Helical CT of the chest without intravenous contrast administration. Thin-section reconstructions as well as coronal and sagittal reformatted images were generated. COMPARISON: Chest radiograph 11/28/2023 FINDINGS: Pulmonary parenchyma: Bilateral interlobular septal thickening. Scattered groundglass opacities throughout both lungs most pronounced in the right middle lobe and inferior bilateral lower lobes. Bilateral perihilar consolidation and air bronchograms. Airways: No central endobronchial abnormality. Pleura: Small bilateral pleural effusions. Lymph nodes: No lymphadenopathy. Heart and vasculature: Normal size of the heart. Aortic stent valve extending into the proximal ascending aorta. Coronary stents. Severe coronary artery calcific calcifications. No significant pericardial effusion. Diffuse calcifications of the ascending aorta. Normal caliber of the thoracic aorta. Other mediastinal structures: Patulous esophagus. Upper abdomen: Cortical thinning of the partially visualized right kidney. Contrast opacifies the bilateral renal collecting systems from prior contrast administration. Skeletal structures: Thoracic degenerative disc disease. Procedure Note Marco A Glynn MD - 11/30/2023 EXAMINATION: CT CHEST WO CONTRAST (GENERIC) CLINICAL HISTORY: hx of porcelain aorta, confirming TECHNIQUE: Helical CT of the chest without intravenous contrastadministration. Thin-section reconstructions as well as coronal and sagittal reformattedimages were generated. COMPARISON: Chest radiograph 11/28/2023 FINDINGS: Pulmonary parenchyma: Bilateral interlobular septal thickening.Scattered groundglass opacities throughout both lungs most pronounced in the rightmiddle lobe and inferior bilateral lower lobes. Bilateral perihilar consolidationand air bronchograms. Airways: No central endobronchial abnormality. Pleura: Small bilateral pleural effusions. Lymph nodes: No lymphadenopathy. Heart and vasculature: Normal size of the heart. Aortic stent valveextending into the proximal ascending aorta. Coronary stents. Severe coronaryartery calcific calcifications. No significant pericardial effusion. Diffuse calcifications of the ascending aorta. Normal caliber of the thoracicaorta. Other mediastinal structures: Patulous esophagus. Upper abdomen: Cortical thinning of the partially visualized rightkidney. Contrast opacifies the bilateral renal collecting systems from priorcontrast administration. Skeletal structures: Thoracic degenerative disc disease. IMPRESSION 1. Prominent noncontiguous calcifications of the ascending aorta. Aorticstent valve extending into the proximal ascending aorta. 2. Pulmonary alveolar and interstitial edema. Superimposedaspiration/pneumonia may have a similar appearance. 3. Small bilateral pleural effusions. I have personally reviewed the image(s) and the resident's interpretationand agree with the findings, Marco A Glynn MD at 11/30/2023 11:07 AM Thank you for letting us participate in the care of this patient. If youare a health care provider and have any questions regarding this report,please contact the number below. For patients who have questions please contactthe health wound care technician that requested your imaging first. Electronically signed by: Marco A Glynn MD, [facility]([phone]), at 11/30/2023 11:07 AM Emory Ross MD IMG CT ORDERABL ES * Potassium (11/29/2023 9:30 AM EDT) Pathologist [facility] Potassium 4.4 3.5 - 5.0 mmol/L [facility] Comment: Please note: ??Patients with WBC >100,000 may have falsely elevated Potassium levels. ??For accurate Potassium quantification in these patients send serum separator tube (gold top) for subsequent determinations. ??Contact the Clinical Chemistry Laboratory if there are any questions. Blood 11/29/2023 9:30 AM EDT 11/29/2023 9:42 AM EDT Narrative Resulting Agency Comment Spec In Lab Emory Ross MD CHEMISTRY ORDER LAKEISHA [facility] [place] [address] * Heparin (unfractionated) Level (11/29/2023 9:30 AM EDT) Pathologist [facility] UF Heparin 0.97 IU/mL [facility] Comment: Heparin (anti-Xa) levels should be determined in a plasma sample that has been drawn 6 hours after a dose change to approximate steady-state for continuous heparin infusions. Indication specific Heparin (anti-Xa) levels based on order set selection: Acute DVT or PE treatment: 0.3 ? 0.7 IU/mL Thrombosis Prevention (eg. atrial fibrillation, jasper-procedural bridging, mechanical valves): 0.3 ? 0.7 IU/mL Acute Coronary Syndrome: 0.3 ? 0.7 IU/mL Stroke Indications: 0.3 ? 0.5 IU/mL Ultra-low intensity (select indications in cardiac surgery): 0.1 ? 0.3 IU/mL Blood 11/29/2023 9:30 AM EDT 11/29/2023 9:42 AM EDT Narrative Resulting Agency Comment Spec In Lab Emory Ross MD HEMATOLOGY ORDE RABLES [facility] [place] [address] * (ABNORMAL) Troponin (11/29/2023 9:30 AM EDT) [facility] Troponin-T, High Sensitivity 1,592(H) <=14 ng/L [facility] Comment: This patient's troponin T concentration was determined using the Haris 5th Generation troponin T assay. The 99th percentile for Troponin T for this test is 14 ng/L for females, and 22 ng/L for males. According to the fourth universal definition of [...] viable myocardium or new regional wall motion abnormality in a pattern consistent with an ischemic etiology; - Identification of a coronary thrombus by angiography or autopsy (not for type 2 or 3 MIs) Serial measurement of troponin and the change in troponin concentration over time (delta) is crucial for the diagnosis of acute myocardial infarction. Guidance on the interpretation of the new 5th Generation Troponin T values and the delta troponin value can be found in the [facility] Test Catalog Troponin - [facility] Test Catalog Reference: Fourth Douglas Definition of Myocardial Infarction. Journal of the [place] [employer] 2018;72:5751-4954 Blood 11/29/2023 9:30 AM EDT 11/29/2023 9:42 AM EDT Narrative Resulting Agency Comment Spec In Lab Emory Ross MD CHEMISTRY ORDER LAKEISHA [facility] [place] [address] * (ABNORMAL) Troponin (11/29/2023 5:24 AM EDT) Troponin-T, High Sensitivity 1,667(H) <=14 ng/L [facility] Comment: This patient's troponin T concentration was determined using the Hairs 5th Generation troponin T assay. The 99th percentile for Troponin T for this test is 14 ng/L for females, and 22 ng/L for males. According to the fourth universal definition of [...] viable myocardium or new regional wall motion abnormality in a pattern consistent with an ischemic etiology; - Identification of a coronary thrombus by angiography or autopsy (not for type 2 or 3 MIs) Serial measurement of troponin and the change in troponin concentration over time (delta) is crucial for the diagnosis of acute myocardial infarction. Guidance on the interpretation of the new 5th Generation Troponin T values and the delta troponin value can be found in the [facility] Test Catalog Troponin - [facility] Test Catalog Reference: Fourth Douglas Definition of Myocardial Infarction. Journal of the [place] [employer] 2018;72:3808-7302 Blood 11/29/2023 5:24 AM EDT 11/29/2023 5:54 AM EDT Narrative Resulting Agency Comment Spec In Lab Emory Ross MD CHEMISTRY ORDER LAKEISHA [facility] [place] [address] * (ABNORMAL) BMP w/fasting Glucose (11/29/2023 12:27 AM EDT) Glucose Fasting 153(H) 65 - 99 mg/dL [facility] Comment: ?Fasting* Glucose Interpretive Criteria Normal ?65-99 mg/dL Impaired Fasting glucose ?100-125 mg/dL Consistent with Diabetes Mellitus ? >or= 126 mg/dL *Fasting is defined as no caloric intake for at least 8 hours In the absence of unequivocal hyperglycemia a plasma glucose value of >or= 126 mg/dL should be repeated on a subsequent day. Diagnosis and Classification of Diabetes Mellitus, Position Statement from the [place] [employer]. ??Diabetes Care, Volume 33, Supplement 1, Sep 2009 Blood Urea Nitrogen 19(H) 8 - 18 mg/dL [facility] Creatinine 1.32(H) 0.70 - 1.20 mg/dL [facility] Sodium 140 135 - 145 mmol/L [facility] Potassium 3.7 3.5 - 5.0 mmol/L [facility] Comment: Please note: ??Patients with WBC >100,000 may have falsely elevated Potassium levels. ??For accurate Potassium quantification in these patients send serum separator tube (gold top) for subsequent determinations. ??Contact the Clinical Chemistry Laboratory if there are any questions. Chloride 104 98 - 107 mmol/L [facility] Carbon Dioxide 24 22 - 31 mmol/L [facility] Anion Gap 12 5 - 15 mmol/L [facility] Calcium 8.8 8.5 - 10.5 mg/dL [facility] Est Glomerular Filtration Rate 47(L) >=60 mL/min/1. 73 m?? [facility] Comment: This patient's estimated GFR was [...] and symptoms in addition to eGFR. Blood 11/29/2023 12:2 7 AM EDT 11/29/2023 12:51 AM EDT Narrative Resulting Agency Comment Spec In Lab Corinne Saba MD CHEMISTRY ORDERABL ES Performing Organization Address City/[facility]/[place] [address] * (ABNORMAL) Differential, Automated (11/29/2023 12:27 AM EDT) Neutrophil % 86.9 % [facility] Neutrophil Absolute 13.48(H) 1.70 - 6.10 x10(3)/mc L [facility] Lymph % 8.6 % [facility] Lymphocytes Abs 1.3 0.9 - 3.2 x10(3)/mc L [facility] Monocyte % 3.4 % [facility] Monocyte Abs 0.5 0.3 - 0.9 x10(3)/mc L [facility] Eos % 0.5 % [facility] Eosinophils Abs 0.1 0.0 - 0.4 x10(3)/mc L [facility] Basophil % 0.1 % [facility] Baso Absolute 0.0 0.0 - 0.1 x10(3)/mc L [facility] Immature Gran % 0.50 % [facility] Comment: Immature granulocytes(IG's)percentage and absolute count will include metamyelocytes, myelocytes, and promyelocytes. Blood smears from CBCs yielding IG's will be scanned manually for concordance. If this scan disagrees with the automated IG or if promyelocytes are noted, a manual differential will be performed. Immature Gran Absolute 0.08(H) 0.00 - 0.04 x10(3)/mc L [facility] Blood 11/29/2023 12:2 7 AM EDT 11/29/2023 12:51 AM EDT Narrative Resulting Agency Comment Spec In Lab Corinne Saba MD HEMATOLOGY ORDERAB LES Performing Organization Address City/[facility]/[place] [address] * (ABNORMAL) Hemogram (11/29/2023 12:27 AM EDT) White Blood Cell 15.5(H) 4.0 - 9.5 x10(3)/mc L [facility] Red Blood Cell 3.33(L) 4.00 - 5.21 x10(6)/mc L [facility] Hemoglobin 10.3(L) 11.7 - 15.5 g/dL [facility] Hematocrit 30.7(L) 35.7 - 45.8 % [facility] Mean Cell Volume 92.2 82.6 - 94.4 fL [facility] Mean Cell Hemoglobin 30.9 27.1 - 32.0 pg [facility] Mean Cell Hemoglobin Concentration 33.6 31.7 - 35.0 g/dL [facility] Platelet 286 145 - 357 x10(3)/mc L [facility] RDW Standard Deviation 49.9(H) 37.0 - 46.0 fL [facility] RDW coefficient of variation 14.8(H) 11.5 - 14.1 % [facility] Mean Platelet Volume 12.0 7.6 - 12.9 fL [facility] NRBC% auto 0.0 % [facility] NRBC Absolute 0.000 0.000 - 0.000 x10(3)/ L [facility] Blood 11/29/2023 12:2 7 AM EDT 11/29/2023 12:51 AM EDT Narrative Resulting Agency Comment Spec In Lab Corinne Saba MD HEMATOLOGY ORDERAB LES Performing Organization Address City/[facility]/ZIP Co de Phone Number [facility] [place] [address] * Magnesium (11/29/2023 12:27 AM EDT) Magnesium 0.89 0.69 - 1.07 mmol/L [facility] Blood 11/29/2023 12:2 7 AM EDT 11/29/2023 12:51 AM EDT Narrative Resulting Agency Comment Spec In Lab Emory Ross MD CHEMISTRY ORDER LAKEISHA [facility] [place] [address] * Phosphorus (11/29/2023 12:27 AM EDT) Phosphorus 3.1 2.5 - 4.5 mg/dL [facility] Blood 11/29/2023 12:2 7 AM EDT 11/29/2023 12:51 AM EDT Narrative Resulting Agency Comment Spec In Lab Emory Ross MD CHEMISTRY ORDER LA[place]ISHA [facility] [place] [address] * (ABNORMAL) Troponin (11/29/2023 12:27 AM EDT) Troponin-T, High Sensitivity 1,719(H) <=14 ng/L [facility] Comment: This patient's troponin T concentration was determined using the Haris 5th Generation troponin T assay. The 99th percentile for Troponin T for this test is 14 ng/L for females, and 22 ng/L for males. According to the fourth universal definition of [...] viable myocardium or new regional wall motion abnormality in a pattern consistent with an ischemic etiology; - Identification of a coronary thrombus by angiography or autopsy (not for type 2 or 3 MIs) Serial measurement of troponin and the change in troponin concentration over time (delta) is crucial for the diagnosis of acute myocardial infarction. Guidance on the interpretation of the new 5th Generation Troponin T values and the delta troponin value can be found in the [facility] Test Catalog Troponin - [facility] Test Catalog Reference: Fourth Douglas Definition of Myocardial Infarction. Journal of the [place] College [employer] 2018;72:7988-8845 Blood 11/29/2023 12:2 7 AM EDT 11/29/2023 12:51 AM EDT Narrative Resulting Agency Comment Spec In Lab Emory Ross MD CHEMISTRY ORDER LAKEISHA [facility] [place] [address] * Triglyceride (11/29/2023 12:27 AM EDT) Triglyceride 93 mg/dL [facility] Comment: Average Risk/Lower Risk: <150 mg/dL Borderline High Risk: 150-199 mg/dL High Risk: 200-499 mg/dL Very High Risk: >nt=129 mg/dL Blood 11/29/2023 12:2 7 AM EDT 11/29/2023 12:51 AM EDT Narrative Resulting Agency Comment Spec In Lab Emory Ross MD CHEMISTRY ORDER LAKEISHA Performing Organization Address City/[facility]/ZIP Co de Phone Number [facility] [place] [address] * HDL/Cholesterol Profile (11/29/2023 12:27 AM EDT) Cholesterol, Total 139 mg/dL M [facility] Comment: Lower Risk: <200 mg/dL Average Risk: 200-239 mg/dL Higher Risk: >fa=122 mg/dL HDL Cholesterol 44 mg/dL [facility] Comment: Males: ?? Higher Risk: <40 mg/dL Females: ?? Higher Risk: <50 mg/dL Cholesterol/HDL Ratio 3.2 ratio [facility] Chol/HDL Interpretation See Note [facility] Comment: Lipid management should be guided by a patient? s ASCVD risk, goals and preferences. ACC/AHA Guidelines recommend high intensity statin if clinical ASCVD or LDL greater than or equal to 190 mg/dL. http://tinyurl.com/VXI-SPA-Rxvnpvmhr Measure LDL if Total Cholesterol minus HDL Cholesterol is greater than 220 mg/dL. Adults aged 40-75 with LDL 70-189 mg/dL should have their 10 year ASCVD risk estimated with the ACC/AHA ASCVD risk staff radiation therapist http://tools.acc.org/MEJHT-Wcuo-Xqqgqgmuj/ Statin should be discussed if risk greater than or equal to 7.5% in non-diabetics. With diabetes, moderate intensity statin is recommended if risk less than 7.5%, high intensity if risk greater than or equal to 7.5%. Annual lipid monitoring on statins is not necessary. Lifestyle modification is a critical component of ASCVD risk reduction. Blood 11/29/2023 12:2 7 AM EDT 11/29/2023 12:51 AM EDT Narrative Resulting Agency Comment Spec In Lab Emory Ross MD CHEMISTRY ORDER LAKEISHA Performing Organization Address [facility] Co de Phone Number [facility] [place] [address] * LDL Cholesterol, Direct (11/29/2023 12:27 AM EDT) LDL Cholesterol, Direct 69 mg/dL [facility] Comment: Lowest Risk: <100 mg/dL Lower Risk: 100-129 mg/dL Borderline High Risk: 130-159 mg/dL High Risk: 160-189 mg/dL Very High Risk: >dz=624 mg/dL Blood 11/29/2023 12:2 7 AM EDT 11/29/2023 12:51 AM EDT Narrative Resulting Agency Comment Spec In Lab Emory Ross MD CHEMISTRY ORDER LAKEISHA Performing Organization Address [facility] Co de Phone Number [facility] [place] [address] * Hemoglobin A1c (11/29/2023 12:27 AM EDT) Hemoglobin A1c 5.3 4.3 - 5.6 % [facility] Comment: Reference Range: 4.3 - 5.6% 5.7 - 6.4% - Increased Risk of Developing Diabetes Mellitus >= 6.5% - Consistent with diagnosis of Diabetes Mellitus In the absence of hyperglycemia (i.e. plasma glucose > 200 mg/dL) or classic symptoms of hyperglycemia a repeat measurement of HbA1c should be performed on a separate sample to confirm the diagnosis. Diagnosis and Classification of Diabetes Mellitus, Diabetes Care 2013; 36: Suppl. 1, S67-22 Estimated Average Glucose 107 mg/dL [facility] Blood 11/29/2023 12:2 7 AM EDT 11/29/2023 12:51 AM EDT Narrative Resulting Agency Comment Spec In Lab Emory Ross MD CHEMISTRY ORDER LAKEISHA Performing Organization Address City/[facility] Co de Phone Number [facility] [place] [address] * Potassium (11/28/2023 6:00 PM EDT) Potassium 3.7 3.5 - 5.0 mmol/L [facility] Comment: Please note: ??Patients with WBC >100,000 may have falsely elevated Potassium levels. ??For accurate Potassium quantification in these patients send serum separator tube (gold top) for subsequent determinations. ??Contact the Clinical Chemistry Laboratory if there are any questions. Blood 11/28/2023 6:00 PM EDT 11/28/2023 6:13 PM EDT Narrative Resulting Agency Comment Spec In Lab Emory Ross MD CHEMISTRY ORDER LAKEISHA Performing Organization Address [facility] Co de Phone Number [facility] [place] [address] * (ABNORMAL) Troponin (11/28/2023 6:00 PM EDT) Troponin-T, High Sensitivity 1,107(H) <=14 ng/L [facility] Comment: This patient's troponin T concentration was determined using the Haris 5th Generation troponin T assay. The 99th percentile for Troponin T for this test is 14 ng/L for females, and 22 ng/L for males. According to the fourth universal definition of [...] viable myocardium or new regional wall motion abnormality in a pattern consistent with an ischemic etiology; - Identification of a coronary thrombus by angiography or autopsy (not for type 2 or 3 MIs) Serial measurement of troponin and the change in troponin concentration over time (delta) is crucial for the diagnosis of acute myocardial infarction. Guidance on the interpretation of the new 5th Generation Troponin T values and the delta troponin value can be found in the [facility] Test Catalog Troponin - [facility] Test Catalog Reference: Fourth Douglas Definition of Myocardial Infarction. Journal of the [place] [employer] 2018;72:5012-5928 Blood 11/28/2023 6:00 PM EDT 11/28/2023 6:14 PM EDT Narrative Resulting Agency Comment Spec In Lab Emory Ross MD CHEMISTRY ORDER LAKEISHA Performing Organization Address City/[facility] Co de Phone Number [facility] [place] [address] * EKG 12 Lead (11/28/2023 5:50 PM EDT) Ventricular rate 85 BPM MUSE SYSTEM Atrial Rate 85 BPM MUSE SYSTEM P-R Interval 144 ms MUSE SYSTEM QRS Duration 142 ms MUSE SYSTEM Q-T Interval 448 ms MUSE SYSTEM QTC Calculated (Bezet) 533 ms MUSE SYSTEM Calculated P [place] 71 degrees MUSE SYSTEM Calculated R [place] 50 degrees MUSE SYSTEM Calculated T [place] 82 degrees MUSE SYSTEM INTERPRETATION Normal sinus rhythm Possible Left atrial enlargement Left bundle branch block Abnormal ECG When compared with ECG of 28-NOV-2023 10:55, Left bundle branch block is now Present Confirmed by MD Randle Katharine ([id number]) on 11/30/2023 9:25:14 PM MUSE SYSTEM 11/28/2023 5:50 PM EDT 11/30/2023 9:25 PM EDT Emory Ross MD ECG ORDERABLES Performing Organization Address [facility] Co de Phone Number MUSE SYSTEM * CARDIAC CATHETERIZATION (11/28/2023 5:12 PM EDT) Anatomical Region Laterality Modality Other Narrative 11/29/2023 3:02 PM EDT ?[facility] ? Cardiac Catheterization/Intervention Report ? Patient Name: Oksana Betancourt. ? Procedure Date: 11/28/2023 ? A #: [id number] ? Primary Physician: Ryder Hargrove ? Case #: [id number] ? File Name: [id number] ? Catheterization Order Number: [id number] ? [facility] ? Final Report [place], [place] ? Patient Name: ? Oksana A. Keithan ?ID#: ?[id number] ? : ?1965 ? Procedure Date: ? November 28, 2023 ? Case #: ? [id number] ? Room: ? 2 ? Case Physician: ? Ryder Hargrove M.D. ? Start: ?15:44 ?Fellow: ? Faustino Hernández M.D. ?Admission: ??11/28/2023 ? Discharge: ??12/04/2023 ? Referring Physician: ??Blaze Randall M.D. ? Procedures: ?* Coronary Angiography ?* Left Heart Catheterization ?* Coronary Angioplasty ?* Coronary Stent Insertion ? History ?Oksana Betancourt is a 57 year old woman. She has hypertension. The ?patient's smoking status is Never. She has hypercholesterolemia managed ?with lipid therapy. The patient has a prior history of coronary artery ?disease. She had a coronary intervention procedure. The patient has a ?history of a prior aortic valve replacement. She has a total of one ?aortic valve surgery. The patient also has a history of cancer. Prior to ?the initiation of this procedure, the patient was designated as ASA Class ?III. The [facility] clinical frailty scale is 5: Mildly Frail. ? Diagnostic Tests: ?Prior Coronary Angiography: ? LV ejection fraction within 6 months is 50%. ?Electrocardiography: ? EKG was assessed by ECG. EKG was Normal. ?Medications Prior to Procedure: ? Ranolazine, Aspirin, Calcium Channel Blocking Agent, Long Acting ? Nitrate and Statin. ? Indications for Diagnostic Cath: ?The priority of the diagnostic procedure was Urgent. The indication for ?the laboratory equipment cleaner visit is ACS less than or equal to 24 hrs. Chest pain ?symptom assessment was: Atypical Angina. ? Technique: ?A 6 SLFr sheath was inserted in the right radial artery utilizing the ?Seldinger technique. A 6Fr sheath was inserted in the right femoral ?artery utilizing the Seldinger technique. The left coronary artery was ?injected utilizing a 6Fr JL 4 catheter. A 6Fr JR 4 catheter was used to ?inject the right coronary artery. Left ventricular pressure was performed ?utilizing a 6Fr JR 4 catheter. Coronary angioplasty and coronary stent ?insertion were performed and the equipment utilized will be described in ?the intervention summary section. 9,000 units of heparin were ?administered. A total of 300cc of Omnipaque were opened, 215cc of ?Omnipaque were administered and 85cc of Omnipaque were wasted. Radiation: ?Fluoro time was 23.6 minutes, dose area product was 79.60 Gy/cm2 and air ?kerma was 1,345 mGY. See the case log for additional details. ?The patient received the following medications prior to and during the ?procedure: ? Unfractionated Heparin and Clopidogrel. ? Hemodynamics: ?Left Heart Pressures ? Resting: ? Syst Diast ? EDP ?a ?v ? m ?Ao 122 ?? 52 ?80 ?LV 134 ? 16 ? Coronary Angiography: ?Dominance: Right ?Left Main ? There was an 80% single discrete stenosis of the distal segment of ? the left main artery. ??The left main was large. ?Left Anterior Descending ? There was an 80% single discrete stenosis of the ostial segment of ? the left anterior descending artery (LAD). ??The LAD was large. ?Left Circumflex ? There was mild diffuse (<=25% stenosis) disease of the entire vessel ? segment of the left circumflex artery (LCX). ??The LCX was large. ? The previously placed stent is patent. ?Right Coronary Artery ? There was mild diffuse (<=25% stenosis) disease of the entire vessel ? segment of the right coronary artery (RCA). ??The RCA was large. ??The ? ostial segment of the RCA had a single discrete 90% stenosis. ??This ? lesion represented in-stent restenosis following a prior coronary ? stent insertion. There also was a 90% long segmental stenosis of the ? proximal segment of the RCA. ??This lesion represented in-stent ? restenosis following a prior coronary stent insertion. ? Indication for Intervention: ?Coronary intervention was indicated for primary therapy for an acute ?myocardial infarction. The priority for the procedure was Urgent. The ?NCDR indication for the procedure was NSTE-ACS. LVEF within one week was ?50%. Syntax Score was Intermediate. Initial PCI was performed for ?multivessel disease. ? Intervention Summary: ?Right Coronary Artery ? Ostial 90% ? Stent insertion was performed on the 90% stenosis in the ? ostial segment of the RCA. This was a drug eluting in- stent ? restenosis lesion. According to the ACC/AHA classification ? system, this lesion was a type C high risk lesion. Primary ? prevention of restenosis was the indication for stent ? insertion. A guidewire was placed across this lesion. Vessel ? flow pre intervention was PARADISE 3. Lesion length was 18mm. This ? was a previously treated lesion on 04/19/2022. ? Stent insertion was accomplished through a 6 Fr. JR 3.5 guide. ?The lesion was predilated with a 2.50mm NC EUPHORA 20 MM ? balloon with a maximum inflation pressure of 16 atmospheres. ? A premounted 3.50 x 22 mm [place] (CRIS) was deployed ? with a maximum inflation pressure of 18 atmospheres. ? Following stent deployment, the lesion was dilated using a ? 2.50mm NC EUPHORA 20 MM balloon with a maximum inflation ? pressure of 20 atmospheres. ? The final outcome was defined as successful. There was no ? residual stenosis following this intervention. The final PARADISE ? flow was 3. ? Proximal 90% ? Angioplasty was performed on the 90% stenosis in the proximal ? segment of the RCA. This was a drug eluting in-stent ? restenosis lesion. This lesion was designated a type C high ? risk lesion based on ACC/AHA classification system. A ? guidewire was placed across this lesion. Vessel flow pre ? intervention was PARADISE 3. Lesion length was 6mm. This was a ? previously treated lesion on 04/19/2022. ? Angioplasty was accomplished through a 6 Fr JR 3.5 guide ? utilizing a NC EUPHORA 20 MM balloon with a maximum size of ? 2.50mm and a maximum inflation pressure of 18 atmospheres. ? The final outcome was defined as successful. There was no ? residual stenosis following this intervention. The final PARADISE ? flow was 3. ? Vascular Access: ?Vascular Access Angiogram: ? A selective angiogram at the right femoral artery revealed mild ? diffuse disease. ?Vascular Ultrasound: ? Ultrasound of the right femoral artery was used to guide access and ? showed vessel patent with mild disease. ?Vascular Access Management: ? Mechanical Compression of the right radial artery access site was ? performed. ? Manual Compression of the right femoral artery access site was ? performed. ? Dual Antiplatelet (DAPT) Recommendations: ?Drug eluting stent (CRIS) inserted. ?P2Y12 Loading dose administered prior to arrival in the laboratory equipment cleaner. ?Recommended anti-platelet/anti-thrombotic regimen: ?Continue aspirin 81 mg daily for indefinitely. ?Continue clopidogrel 75 mg daily for indefinitely. ?These recommendations are made at the time of the intervention. Patient ?and provider preferences or a changing clinical situation may require ?modification of this regimen. Consult [facility] for ?questions. ? Conclusions: ?* Significant stenosis of the left main ?* Two vessel coronary artery disease (LAD and RCA) ?* Successful angioplasty of the proximal RCA lesion ?* Successful stent insertion of the ostial RCA lesion ?* See Dual Antiplatelet (DAPT) Recommendations above ? Complications/Events: ?The patient had no complications during these procedures. ? Post Procedure Fluid Recommendations: ?IV fluid at 327 mL/hr for 4 hours for a total of 1,308 mL. These ?recommendations are made at the time of the procedure. Patient and ?provider preferences or a changing clinical situation may require ?modification of this regimen. ?The attending physician was present for the entire procedure. ?Dr. Ryder Hargrove M.D. was present during the moderate sedation ?intraservice time as documented by the sedation nurse. ??Case time = 01:18. ?Dr. Ryder Hargrove M.D. performed the coronary angiography, left heart ?catheterization, angioplasty-coronary and stent insertion-coronary. ? Ryder Hargrove M.D. ? Electronically Signed by: Ryder Hargrove M.D. ? Report Finalized: 11/29/2023 ??14:57 ? Report Last Ammended: 01/25/2024 ??13:15 ? Procedure Note Ryder Hargrove MD - 01/25/2024 [facility] Cardiac Catheterization/Intervention Report Patient Name: Oksana BetancourtRyan Procedure Date: 11/28/2023 A #: [id number] Primary Physician: Ryder Hargrove Case #: [id number] File Name: [id number] Catheterization Order Number: [id number] [facility] FinalReport [place], [place] Patient Name: Oksana Betancourt ID#:[id number] :1965 Procedure Date: November 28, 2023 Case #: [id number] Room: 2 Case Physician: Ryder Hargrove M.D. Start: 15:44 Fellow: Faustino Hernández M.D. Admission:11/28/2023 Discharge:12/04/2023 Referring Physician: Blaze Randall M.D. Procedures: * Coronary Angiography * Left Heart Catheterization * Coronary Angioplasty * Coronary Stent Insertion History Oksana Betancourt is a 57 year old woman. She has hypertension. The patient's smoking status is Never. She has hypercholesterolemiamanaged with lipid therapy. The patient has a prior history of coronaryartery disease. She had a coronary intervention procedure. The patient hasa history of a prior aortic valve replacement. She has a total of one aortic valve surgery. The patient also has a history of cancer.Prior to the initiation of this procedure, the patient was designated as ASAClass III. The [facility] clinical frailty scale is 5: Mildly Frail. Diagnostic Tests: Prior Coronary Angiography: LV ejection fraction within 6 months is 50%. Electrocardiography: EKG was assessed by ECG. EKG was Normal. Medications Prior to Procedure: Ranolazine, Aspirin, Calcium Channel Blocking Agent, LongActing Nitrate and Statin. Indications for Diagnostic Cath: The priority of the diagnostic procedure was Urgent. The indicationfor the laboratory equipment cleaner visit is ACS less than or equal to 24 hrs. Chest pain symptom assessment was: Atypical Angina. Technique: A 6 SLFr sheath was inserted in the right radial artery utilizingthe Seldinger technique. A 6Fr sheath was inserted in the right femoral artery utilizing the Seldinger technique. The left coronary arterywas injected utilizing a 6Fr JL 4 catheter. A 6Fr JR 4 catheter was usedto inject the right coronary artery. Left ventricular pressure wasperformed utilizing a 6Fr JR 4 catheter. Coronary angioplasty and coronarystent insertion were performed and the equipment utilized will bedescribed in the intervention summary section. 9,000 units of heparin were administered. A total of 300cc of Omnipaque were opened, 215cc of Omnipaque were administered and 85cc of Omnipaque were wasted.Radiation: Fluoro time was 23.6 minutes, dose area product was 79.60 Gy/cm2 andair kerma was 1,345 mGY. See the case log for additional details. The patient received the following medications prior to and duringthe procedure: Unfractionated Heparin and Clopidogrel. Hemodynamics: Left Heart Pressures Resting: Syst Diast EDP a v m Ao 122 52 80 LV 134 16 Coronary Angiography: Dominance: Right Left Main There was an 80% single discrete stenosis of the distal segmentof the left main artery. The left main was large. Left Anterior Descending There was an 80% single discrete stenosis of the ostial segmentof the left anterior descending artery (LAD). The LAD was large. Left Circumflex There was mild diffuse (<=25% stenosis) disease of the entirevessel segment of the left circumflex artery (LCX). The LCX waslarge. The previously placed stent is patent. Right Coronary Artery There was mild diffuse (<=25% stenosis) disease of the entirevessel segment of the right coronary artery (RCA). The RCA was large.The ostial segment of the RCA had a single discrete 90% stenosis.This lesion represented in-stent restenosis following a priorcoronary stent insertion. There also was a 90% long segmental stenosisof the proximal segment of the RCA. This lesion represented in-stent restenosis following a prior coronary stent insertion. Indication for Intervention: Coronary intervention was indicated for primary therapy for an acute myocardial infarction. The priority for the procedure was Urgent.The [facility] indication for the procedure was NSTE-ACS. LVEF within one weekwas 50%. Syntax Score was Intermediate. Initial PCI was performed for multivessel disease. Intervention Summary: Right Coronary Artery Ostial 90% Stent insertion was performed on the 90% stenosis in the ostial segment of the RCA. This was a drug elutingin-stent restenosis lesion. According to the ACC/AHAclassification system, this lesion was a type C high risk lesion.Primary prevention of restenosis was the indication for stent insertion. A guidewire was placed across this lesion.Vessel flow pre intervention was PARADISE 3. Lesion length was 18mm.This was a previously treated lesion on 04/19/2022. Stent insertion was accomplished through a 6 Fr. JR 3.5guide. The lesion was predilated with a 2.50mm NC EUPHORA 20 MM balloon with a maximum inflation pressure of 16atmospheres. A premounted 3.50 x 22 mm [place] (CRIS) wasdeployed with a maximum inflation pressure of 18 atmospheres. Following stent deployment, the lesion was dilated usinga 2.50mm NC EUPHORA 20 MM balloon with a maximum inflation pressure of 20 atmospheres. The final outcome was defined as successful. There was no residual stenosis following this intervention. The finalTIMI flow was 3. Proximal 90% Angioplasty was performed on the 90% stenosis in theproximal segment of the RCA. This was a drug eluting in-stent restenosis lesion. This lesion was designated a type Chigh risk lesion based on ACC/AHA classification system. A guidewire was placed across this lesion. Vessel flow pre intervention was PARADISE 3. Lesion length was 6mm. This wasa previously treated lesion on 04/19/2022. Angioplasty was accomplished through a 6 Fr JR 3.5 guide utilizing a NC EUPHORA 20 MM balloon with a maximum sizeof 2.50mm and a maximum inflation pressure of 18atmospheres. The final outcome was defined as successful. There was no residual stenosis following this intervention. The finalTIMI flow was 3. Vascular Access: Vascular Access Angiogram: A selective angiogram at the right femoral artery revealed mild diffuse disease. Vascular Ultrasound: Ultrasound of the right femoral artery was used to guide accessand showed vessel patent with mild disease. Vascular Access Management: Mechanical Compression of the right radial artery access sitewas performed. Manual Compression of the right femoral artery access site was performed. Dual Antiplatelet (DAPT) Recommendations: Drug eluting stent (CRIS) inserted. P2Y12 Loading dose administered prior to arrival in the laboratory equipment cleaner. Recommended anti-platelet/anti-thrombotic regimen: Continue aspirin 81 mg daily for indefinitely. Continue clopidogrel 75 mg daily for indefinitely. These recommendations are made at the time of the intervention.Patient and provider preferences or a changing clinical situation mayrequire modification of this regimen. Consult [facility] Interventional Cardiologyfor questions. Conclusions: * Significant stenosis of the left main * Two vessel coronary artery disease (LAD and RCA) * Successful angioplasty of the proximal RCA lesion * Successful stent insertion of the ostial RCA lesion * See Dual Antiplatelet (DAPT) Recommendations above Complications/Events: The patient had no complications during these procedures. Post Procedure Fluid Recommendations: IV fluid at 327 mL/hr for 4 hours for a total of 1,308 mL. These recommendations are made at the time of the procedure. Patient and provider preferences or a changing clinical situation may require modification of this regimen. The attending physician was present for the entire procedure. Dr. Ryder Hargrove M.D. was present during the moderate sedation intraservice time as documented by the sedation nurse. Case time =01:18. Dr. Ryder Hargrove M.D. performed the coronary angiography, leftheart catheterization, angioplasty-coronary and stent insertion-coronary. Ryder Hargrove M.D. Electronically Signed by: Ryder Hargrove M.D. Report Finalized: 11/29/2023 14:57 Report Last Ammended: 01/25/2024 13:15 Ryder Hargrove MD CARDIAC CATH ORDERAB LES * ECHO COMPLETE W CONTRAST (11/28/2023 4:42 PM EDT) Anatomical Region Laterality Modality Cardiac Other 11/28/2023 12:5 8 PM EDT Narrative 11/28/2023 4:51 PM EDT 1 [place] [address] ? Echocardiogram Report Name: OKSANA BETANCOURT ? Study Date: 11/28/2023 12:58 PMBP: 136/73 mmHg ? Patient Location: [facility] CV29 A : 1965 ? Height: 168 cm ? Account: [id number] Age: 57 yrs ? Weight: 109 kg Gender: Female ?BSA: 2.2 m2 Ordering Physician: NILDA Referring Physician: BLAZE RANDALL Performed By: VICKY Mcdonnell Reason For Study: NSTEMI Exam Location: [facility]. Interpretation Summary -Left ventricular systolic function is mildly reduced. The left ventricular ejection fraction is 44% by Guzman's biplane. There are segmental wall motion abnormalities which are in an RCA distribution (inferior, inferoseptal predominantly-see attached PDF). No thrombus. -Right ventricular systolic function is normal. The estimated RVSP is 42mmhg. -There is an aortic bioprosthesis (size/type unknown, reported to have been placed in 2021) which appears to be functioning normally. Mean gradient 5mmHg. No regurgitation. -There is moderate mitral regurgitation which is both central and anteriorly directed. The leaflets are not well visualized. The mechanism of the MR is unclear with the available data. No prior images for comparison. See report for additional findings. Procedure Complete-16508. Image enhancement Optison was used for left ventricular opacification. Suboptimal quality. Regular rhythm. Left Ventricle Left ventricle is of normal size. Wall thickness is normal. There is no ventricular septal defect. Left ventricular systolic function is mildly reduced. The left ventricular ejection fraction is 44% by Guzman's biplane. There are segmental wall motion abnormalities. Right Ventricle The right ventricle is of normal size. Right ventricular systolic function is normal. Left Atrium The left atrium is normal. There is no evidence for a patent foramen ovale. Right Atrium The right atrium is normal. Aortic Valve The aortic valve is not well visualized. Possible prosthesis. The peak instantaneous gradient across the aortic valve is 8.8 mmHg. The mean gradient across the aortic valve is 5.4 mmHg. The aortic valve area calculated using the continuity equation is 1.1 cm^2. There is no aortic regurgitation. Mitral Valve The estimated mean gradient across the mitral valve is 7.1 mmHg . Heart rate: 89 beats per minute. There is no mitral stenosis. There is moderate mitral regurgitation. Tricuspid Valve The tricuspid valve is structurally normal. There is no tricuspid stenosis. There is mild tricuspid regurgitation. Pulmonic Valve The pulmonic valve appears to be structurally normal. There is no valvular pulmonic stenosis. There is mild pulmonic valve regurgitation. Great Arteries The aortic root is not well visualized. Ascending aorta is normal in size. No abnormalities of the pulmonary artery are identified. Venous Inferior vena cava is normal in size. Inferior vena cava collapse greater than 50% with respiration. Pericardium/Pleural There is no pericardial effusion. Hemodynamics The peak right ventricular systolic pressure is 41.7 mmHg . The estimated right atrial pressure is 3mmHg. Left ventricular diastolic function is abnormal. Left ventricular filling pressure is increased. There is Grade II LV diastolic dysfunction (abnormal relaxation with elevated left ventricular filling pressure). Ejection Fraction ?2D Measurements ? Volumes EF(MOD-bp): 43.7 % ?IVSd: 1.1 cm ? LAV(MOD- bp) Indexed: ?LVIDd: 4.6 cm ?LVPWd: 1.1 cm ?21.1 ml/m2 ?RWT: 0.46 {ratio} ?RA A4Cs_phl: 13.5 cm2 ? EDV(MOD-bp) Indexed: ?LV mass(C)d: 177.9 grams ?LV mass(C)dI: 82.1 grams/m2 ?75.6 ml/m2 ?asc Aorta Diam: 2.2 cm ? ESV(MOD-bp) Indexed: ?LVOT diam: 1.5 cm ?42.6 ml/m2 ?TAPSE_phl: 1.7 cm ?SV(LVOT): 32.0 ml ? SI(LVOT): 14.8 ml/m2 Doppler LV V1 VTI: 18.1 cm Ao V2 VTI: 30.1 cm Ao Max: 148.6 cm/sec Ao valve max: 8.8 mmHg Ao valve mean: 5.4 mmHg MV E max paula: 165.3 cm/sec MV A max paula: 140.5 cm/sec MV E/A: 1.2 MV dec time: 0.18 sec MV mean P.1 mmHg Lat Peak E' Paula: 8.6 cm/sec E/ e' (lat): 19.1 Med Peak E' Paula: 2.8 cm/sec E/e' (med): 59.6 E/e' Average: 39.3 NICO(I,D): 1.1 cm2 Dimensionless index Aov: 0.60 MR PISA radius: 0.88 cm Mitral Regurgitation Volume: 45.3 ml TR max paula: 311.0 cm/sec RVSP(TR): 41.7 mmHg I ?WMSI = 1.44 ? % Normal = 56 ?Segments ??Size X - Cannot ?? 1 - Normal ?? 2 - ? 3 - Akinetic 4 - ?1-2 ? small Interpret ? Hypokinetic ?Dyskinetic ?? 3-5 ? moderate 5 - ? 6-14 ?large Aneurysmal ?15-16 ?? diffuse Procedure Note Solo Rausch MD - 11/28/2023 [address] [place] [id number] Echocardiogram Report Name: MEENU OKSANA A Study Date: 412:58 PMBP: 136/73 mmHg Patient Location: [address] : 1965 Height: 168 cm Account: [id number] Age: 57 yrs Weight: 109 kg Gender: Female BSA: 2.2 m2 Ordering Physician: NILDA Referring Physician: BLAZE RANDALL Performed By: VICKY Mcdonnell Reason For Study: NSTEMI Exam Location: [facility]. Interpretation Summary -Left ventricular systolic function is mildly reduced. The leftventricular ejection fraction is 44% by Guzman's biplane. There are segmental wallmotion abnormalities which are in an RCA distribution (inferior, inferoseptal predominantly-see attached PDF). No thrombus. -Right ventricular systolic function is normal. The estimated RVSP [id number]. -There is an aortic bioprosthesis (size/type unknown, reported to havebeen placed in 2021) which appears to be functioning normally. Mean gradient 5mmHg.No regurgitation. -There is moderate mitral regurgitation which is both central andanteriorly directed. The leaflets are not well visualized. The mechanism of the MR isunclear with the available data. No prior images for comparison. See report for additional findings. Procedure Complete-44683. Image enhancement Optison was used for left ventricular opacification. Suboptimal quality. Regular rhythm. Left Ventricle Left ventricle is of normal size. Wall thickness is normal. There is no ventricular septal defect. Left ventricular systolic function is mildlyreduced. The left ventricular ejection fraction is 44% by Guzman's biplane. Thereare segmental wall motion abnormalities. Right Ventricle The right ventricle is of normal size. Right ventricular systolic functionis normal. Left Atrium The left atrium is normal. There is no evidence for a patent foramenovale. Right Atrium The right atrium is normal. Aortic Valve The aortic valve is not well visualized. Possible prosthesis. The peak instantaneous gradient across the aortic valve is 8.8 mmHg. The meangradient across the aortic valve is 5.4 mmHg. The aortic valve area calculatedusing the continuity equation is 1.1 cm^2. There is no aortic regurgitation. Mitral Valve The estimated mean gradient across the mitral valve is 7.1 mmHg . Heartrate: 89 beats per minute. There is no mitral stenosis. There is moderate mitral regurgitation. Tricuspid Valve The tricuspid valve is structurally normal. There is no tricuspidstenosis. There is mild tricuspid regurgitation. Pulmonic Valve The pulmonic valve appears to be structurally normal. There is novalvular pulmonic stenosis. There is mild pulmonic valve regurgitation. Great Arteries The aortic root is not well visualized. Ascending aorta is normal in size.No abnormalities of the pulmonary artery are identified. Venous Inferior vena cava is normal in size. Inferior vena cava collapse greaterthan 50% with respiration. Pericardium/Pleural There is no pericardial effusion. Hemodynamics The peak right ventricular systolic pressure is 41.7 mmHg . The estimatedright atrial pressure is 3mmHg. Left ventricular diastolic function is abnormal.Left ventricular filling pressure is increased. There is Grade II LVdiastolic dysfunction (abnormal relaxation with elevated left ventricular fillingpressure). Ejection Fraction 2D Measurements Volumes EF(MOD-bp): 43.7 % IVSd: 1.1 cm LAV(MOD-bp)Indexed: LVIDd: 4.6 cm LVPWd: 1.1 cm 21.1 ml/m2 RWT: 0.46 {ratio} RA A4Cs_phl: 13.5cm2 EDV(MOD-bp)Indexed: LV mass(C)d: 177.9 grams LV mass(C)dI: 82.1 grams/m2 75.6 ml/m2 asc Aorta Diam: 2.2 cm ESV(MOD-bp)Indexed: LVOT diam: 1.5 cm 42.6 ml/m2 TAPSE_phl: 1.7 cm SV(LVOT): 32.0ml SI(LVOT): 14.8ml/m2 Doppler LV V1 VTI: 18.1 cm Ao V2 VTI: 30.1 cm Ao Max: 148.6 cm/sec Ao valve max: 8.8 mmHg Ao valve mean: 5.4 mmHg MV E max paula: 165.3 cm/sec MV A max paula: 140.5 cm/sec MV E/A: 1.2 MV dec time: 0.18 sec MV mean P.1 mmHg Lat Peak E' Paula: 8.6 cm/sec E/ e' (lat): 19.1 Med Peak E' Paula: 2.8 cm/sec E/e' (med): 59.6 E/e' Average: 39.3 NICO(I,D): 1.1 cm2 Dimensionless index Aov: 0.60 MR PISA radius: 0.88 cm Mitral Regurgitation Volume: 45.3 ml TR max paula: 311.0 cm/sec RVSP(TR): 41.7 mmHg I WMSI = 1.44 % Normal = 56 SegmentsSize X - Cannot 1 - Normal 2 - 3 - Akinetic 4 - 1-2small Interpret Hypokinetic Dyskinetic 3-5moderate 5 - 6-14large Aneurysmal 15-16diffuse Emory Ross MD ECHO ORDERABLES * POCT Glucose (11/28/2023 4:22 PM EDT) Glucose, POC 155 65 - 199 mg/dL [facility] Comment: Supplemental ranges: <140 mg/dL before meals <180 mg/dL all other times of the day Blood 11/28/2023 4:22 PM EDT 11/28/2023 4:22 PM EDT Emory Ross MD POINT OF CARE T EST ORDERABLES Performing Organization Address City/State/[facility] Co de Phone Number [facility] [place] [address] * (ABNORMAL) Point of Care Blood Gas Historical (11/28/2023 3:26 PM EDT) pH, POC 7.36 7.35 - 7.45 [facility] pCO2, POC 39 35 - 45 mmHg [facility] pO2, POC 150(H) 85 - 104 mmHg [facility] Base Excess, POC -3.0 -3.0 - 3.0 mmol/L [facility] Bicarbonate, POC 22.0 20.0 - 26.0 mmol/L [facility] Sodium, POC 136 135 - 145 mmol/L [facility] POC Potassium 3.5 3.5 - 5.0 mmol/L [facility] Ionized Calcium, POC 1.18 1.15 - 1.33 mmol/L [facility] POC Hematocrit 29.0(L) 34.0 - 45.0 % [facility] POC Calc Hgb 9.9(L) 11.2 - 15.7 g/dL [facility] Comment:The calculation of h emoglobin from hematocrit assumes a normal MCHC. POC Bgas Loc CC Lab [facility] Blood 11/28/2023 3:26 PM EDT 12/01/2023 12:00 PM EDT Arlin Jackson MD CHEMISTRY ORDERABL ES [facility] [place] [address] * (ABNORMAL) Troponin (11/28/2023 2:20 PM EDT) Troponin-T, High Sensitivity 812(H) <=14 ng/L [facility] Comment: This patient's troponin T concentration was determined using the Haris 5th Generation troponin T assay. The 99th percentile for Troponin T for this test is 14 ng/L for females, and 22 ng/L for males. According to the fourth universal definition of [...] viable myocardium or new regional wall motion abnormality in a pattern consistent with an ischemic etiology; - Identification of a coronary thrombus by angiography or autopsy (not for type 2 or 3 MIs) Serial measurement of troponin and the change in troponin concentration over time (delta) is crucial for the diagnosis of acute myocardial infarction. Guidance on the interpretation of the new 5th Generation Troponin T values and the delta troponin value can be found in the [facility] Test Catalog Troponin - [facility] Test Catalog Reference: Fourth Douglas Definition of Myocardial Infarction. Journal of the [place] [employer] 2018;72:3005-3552 Blood 11/28/2023 2:20 PM EDT 11/28/2023 2:30 PM EDT Narrative Resulting Agency Comment Spec In Lab Emory Ross MD CHEMISTRY ORDER LAKEISHA [facility] [place] [address] * XR Chest One View (11/28/2023 11:30 AM EDT) Anatomical Region Laterality Modality Chest N/A Digital Radiogra phy Impressions 11/28/2023 2:04 PM EDT Interstitial edema and small pleural effusions I have personally reviewed the image(s) and the resident's interpretation and agree with the findings, Andrew Khoury MD at 11/28/2023 2:04 PM Thank you for letting us participate in the care of this patient. ??If you are a health care provider and have any questions regarding this report, please contact the number below. ??For patients who have questions please contact the health wound care technician that requested your imaging first. ? Electronically signed by: Andrew Khoury MD, [facility] ??([phone]), at 11/28/2023 2:04 PM Narrative 11/28/2023 2:04 PM EDT EXAMINATION: XR CHEST ONE VIEW CLINICAL HISTORY: Presenting with NSTEMI, shortness of breath, OSH reported pulmonary edema on CXR TECHNIQUE: 1 view of the chest COMPARISON: None FINDINGS: Indistinct bilateral pulmonary vascular markings and bilateral hazy airspace opacities. Small pleural effusions. The cardiac silhouette is enlarged. Aortic valve stent graft. Procedure Note Andrew Khoury MD - 11/28/2023 EXAMINATION: XR CHEST ONE VIEW CLINICAL HISTORY: Presenting with NSTEMI, shortness of breath, OSHreported pulmonary edema on CXR TECHNIQUE: 1 view of the chest COMPARISON: None FINDINGS: Indistinct bilateral pulmonary vascular markings and bilateral hazyairspace opacities. Small pleural effusions. The cardiac silhouette is enlarged. Aortic valve stent graft. IMPRESSION Interstitial edema and small pleural effusions I have personally reviewed the image(s) and the resident's interpretationand agree with the findings, Andrew Khoury MD at 11/28/2023 2:04 PM Thank you for letting us participate in the care of this patient. If youare a health care provider and have any questions regarding this report,please contact the number below. For patients who have questions please contactthe health wound care technician that requested your imaging first. Electronically signed by: Andrew Khoury MD, [facility]([phone]), at 11/28/2023 2:04 PM Emory Ross MD IM DX ORDERABL ES * (ABNORMAL) Troponin (11/28/2023 11:10 AM EDT) Troponin-T, High Sensitivity 713(H) <=14 ng/L [facility] Comment: This patient's troponin T concentration was determined using the Haris 5th Generation troponin T assay. The 99th percentile for Troponin T for this test is 14 ng/L for females, and 22 ng/L for males. According to the fourth universal definition of [...] viable myocardium or new regional wall motion abnormality in a pattern consistent with an ischemic etiology; - Identification of a coronary thrombus by angiography or autopsy (not for type 2 or 3 MIs) Serial measurement of troponin and the change in troponin concentration over time (delta) is crucial for the diagnosis of acute myocardial infarction. Guidance on the interpretation of the new 5th Generation Troponin T values and the delta troponin value can be found in the [facility] Test Catalog Troponin - [facility] Test Catalog Reference: Fourth Douglas Definition of Myocardial Infarction. Journal of the [place] [employer] 2018;72:5904-2321 Blood Venous Draw / Unknown 11/28/2023 11:10 AM EDT 11/28/2023 11:28 AM EDT Narrative Resulting Agency Comment Spec In Lab Corinne Saba MD CHEMISTRY ORDERABL ES [facility] [place] [address] * (ABNORMAL) Differential, Automated (11/28/2023 11:10 AM EDT) Neutrophil % 86.9 % [facility] Neutrophil Absolute 12.13(H) 1.70 - 6.10 x10(3)/mc L [facility] Lymph % 10.0 % [facility] Lymphocytes Abs 1.4 0.9 - 3.2 x10(3)/mc L [facility] Monocyte % 2.5 % [facility] Monocyte Abs 0.4 0.3 - 0.9 x10(3)/mc L [facility] Eos % 0.1 % [facility] Eosinophils Abs 0.0 0.0 - 0.4 x10(3)/mc L [facility] Basophil % 0.1 % [facility] Baso Absolute 0.0 0.0 - 0.1 x10(3)/mc L [facility] Immature Gran % 0.40 % [facility] Comment: Immature granulocytes(IG's)percentage and absolute count will include metamyelocytes, myelocytes, and promyelocytes. Blood smears from CBCs yielding IG's will be scanned manually for concordance. If this scan disagrees with the automated IG or if promyelocytes are noted, a manual differential will be performed. Immature Gran Absolute 0.06(H) 0.00 - 0.04 x10(3)/mc L [facility] Blood 11/28/2023 11:1 0 AM EDT 11/28/2023 11:28 AM EDT Narrative Resulting Agency Comment Spec In Lab Corinne Saba MD HEMATOLOGY ORDERAB LES [facility] [place] [address] * (ABNORMAL) Hemogram (11/28/2023 11:10 AM EDT) White Blood Cell 14.0(H) 4.0 - 9.5 x10(3)/mc L [facility] Red Blood Cell 3.59(L) 4.00 - 5.21 x10(6)/mc L [facility] Hemoglobin 11.0(L) 11.7 - 15.5 g/dL [facility] Hematocrit 33.2(L) 35.7 - 45.8 % [facility] Mean Cell Volume 92.5 82.6 - 94.4 fL [facility] Mean Cell Hemoglobin 30.6 27.1 - 32.0 pg [facility] Mean Cell Hemoglobin Concentration 33.1 31.7 - 35.0 g/dL [facility] Platelet 293 145 - 357 x10(3)/mc L [facility] RDW Standard Deviation 50.1(H) 37.0 - 46.0 fL [facility] RDW coefficient of variation 14.7(H) 11.5 - 14.1 % [facility] Mean Platelet Volume 12.8 7.6 - 12.9 fL [facility] NRBC% auto 0.0 % [facility] NRBC Absolute 0.000 0.000 - 0.000 x10(3)/mc L [facility] Blood 11/28/2023 11:1 0 AM EDT 11/28/2023 11:28 AM EDT Narrative Resulting Agency Comment Spec In Lab Corinne Saba MD HEMATOLOGY ORDERAB LES Performing Organization Address City/[facility]/ZIP Co de Phone Number [facility] [place] [address] * (ABNORMAL) Heparin (unfractionated) Level (11/28/2023 11:10 AM EDT) UF Heparin >2.00(Cri tical) IU/mL [facility] Comment: Specimen drawn more than one hour prior to testing. Results may not be reliable for heparin monitoring. Result may be falsely low. Critical Result called by ?? RYAN CRITICAL Results read back by: ? Harrison Cooper at 2023-11-28 12:23:44 Heparin (anti-Xa) levels should be determined in a plasma sample that has been drawn 6 hours after a dose change to approximate steady-state for continuous heparin infusions. Indication specific Heparin (anti-Xa) levels based on order set selection: Acute DVT or PE treatment: 0.3 ? 0.7 IU/mL Thrombosis Prevention (eg. atrial fibrillation, jasper-procedural bridging, mechanical valves): 0.3 ? 0.7 IU/mL Acute Coronary Syndrome: 0.3 ? 0.7 IU/mL Stroke Indications: 0.3 ? 0.5 IU/mL Ultra-low intensity (select indications in cardiac surgery): 0.1 ? 0.3 IU/mL Blood 11/28/2023 11:1 0 AM EDT 11/28/2023 11:28 AM EDT Narrative Resulting Agency Comment Spec In Lab Emory Ross MD HEMATOLOGY CHASE GUTIERREZ [facility] [place] [address] * (ABNORMAL) Hepatic Function Panel (11/28/2023 11:10 AM EDT) Pathologist [facility] Protein, Total 7.2 6.1 - 8.0 g/dL [facility] Albumin 4.1 3.2 - 5.2 g/dL [facility] Aspartate Aminotransferase 48(H) 0 - 30 unit/L [facility] Alanine Aminotransferase 16 0 - 30 unit/L [facility] Alkaline Phosphatase 117(H) 35 - 105 unit/L [facility] Bilirubin, Total 0.6 0.2 - 1.3 mg/dL [facility] Bilirubin, Direct 0.2 0.0 - 0.3 mg/dL [facility] Blood 11/28/2023 11:1 0 AM EDT 11/28/2023 11:28 AM EDT Narrative Resulting Agency Comment Spec In Lab Emory Ross MD CHEMISTRY ORDER LAKEISHA [facility] [place] [address] * (ABNORMAL) pro-Brain Natriuretic Peptide (11/28/2023 11:10 AM EDT) NT-proBNP 11,073(H) <=124 pg/mL [facility] Blood 11/28/2023 11:1 0 AM EDT 11/28/2023 11:28 AM EDT Narrative Resulting Agency Comment Spec In Lab Emory Ross MD CHEMISTRY ORDER LAKEISHA Performing Organization Address [facility] Co de Phone Number [facility] [place] [address] * (ABNORMAL) APTT (11/28/2023 11:10 AM EDT) Partial Thromboplastin Time 78(H) 25 - 37 sec [facility] Comment: The PTT is NOT appropriate for heparin monitoring. Use the Anti-Xa level for heparin monitoring (HEP UFH) or LMWH monitoring (HEP LMW). A PTT less than 37 seconds generally indicates adequate hemostasis. Blood 11/28/2023 11:1 0 AM EDT 11/28/2023 11:28 AM EDT Narrative Resulting Agency Comment Spec In Lab Emory Ross MD HEMATOLOGY ORDE TJLES Performing Organization Address City/[facility]/ZIP Co de Phone Number [facility] [place] [address] * (ABNORMAL) Prothrombin Time (11/28/2023 11:10 AM EDT) Prothrombin Time 18.5(H) 9.4 - 12.5 sec [facility] International Normalization Ratio 1.6 [facility] Comment: An INR <2.0 indicates adequate procoagulant activity for hemostasis in most patients without underlying bleeding disorders, though the INR may not adequately reflect hemostatic capacity in patients with liver disease and synthetic impairment. The recommended target INR range for therapeutic anticoagulation is 2.0 ? 3.0 for most applications, though lower and higher ranges may be appropriate depending on clinical circumstances. Blood 11/28/2023 11:1 0 AM EDT 11/28/2023 11:28 AM EDT Narrative Resulting Agency Comment Spec In Lab Emory Ross MD HEMATOLOGY ORDSamir GUTIERREZ [facility] [place] [address] * Phosphorus (11/28/2023 11:10 AM EDT) Phosphorus 3.1 2.5 - 4.5 mg/dL [facility] Blood 11/28/2023 11:1 0 AM EDT 11/28/2023 11:28 AM EDT Narrative Resulting Agency Comment Spec In Lab Emory Ross MD CHEMISTRY ORDER LAKEISHA Performing Organization Address City/[facility] Co de Phone Number [facility] [place] [address] * Magnesium (11/28/2023 11:10 AM EDT) Magnesium 0.84 0.69 - 1.07 mmol/L [facility] Blood 11/28/2023 11:1 0 AM EDT 11/28/2023 11:28 AM EDT Narrative Resulting Agency Comment Spec In Lab Emory Ross MD CHEMISTRY ORDER LAKEISHA Performing Organization Address City/[facility]/ZIP Co de Phone Number [facility] [place] [address] * TSH (11/28/2023 11:10 AM EDT) Thyroid Stimulating Hormone 0.51 0.27 - 4.20 mcIU/mL [facility] Comment: Reference Interval (mcIU/mL): Females: ??First Trimester: 0.23-3.88 ??Second Trimester: 0.22-3.90 ??Third Trimester: 0.44-4.66 Blood 11/28/2023 11:1 0 AM EDT 11/28/2023 11:28 AM EDT Narrative Resulting Agency Comment Spec In Lab Emory Ross MD CHEMISTRY ORDER LAKEISHA [facility] [place] [address] * (ABNORMAL) Basic Metabolic Panel (non-fasting) (11/28/2023 11:10 AM EDT) Glucose 151 65 - 199 mg/dL [facility] Comment:Diabetes: >=200 mg/d L plus symptoms Blood Urea Nitrogen 17 8 - 18 mg/dL [facility] Creatinine 1.26(H) 0.70 - 1.20 mg/dL [facility] Sodium 139 135 - 145 mmol/L [facility] Potassium 3.6 3.5 - 5.0 mmol/L [facility] Comment: Please note: ??Patients with WBC >100,000 may have falsely elevated Potassium levels. ??For accurate Potassium quantification in these patients send serum separator tube (gold top) for subsequent determinations. ??Contact the Clinical Chemistry Laboratory if there are any questions. Chloride 103 98 - 107 mmol/L [facility] Carbon Dioxide 23 22 - 31 mmol/L [facility] Anion Gap 13 5 - 15 mmol/L [facility] Calcium 9.1 8.5 - 10.5 mg/dL [facility] Est Glomerular Filtration Rate 49(L) >=60 mL/min/1. 73 m?? [facility] Comment: This patient's estimated GFR was [...] and symptoms in addition to eGFR. Blood 11/28/2023 11:1 0 AM EDT 11/28/2023 11:28 AM EDT Narrative Resulting Agency Comment Spec In Lab Emory Ross MD CHEMISTRY ORDER LAKEISHA [facility] [place] [address] documented in this encounter Visit Diagnoses Diagnosis NSTEMI (non-ST elevated myocardial infarction)- Primary Acute myocardial infarction, subendocardial infarction, episode of care unspecified NSTEMI (non-ST elevated myocardial infarction) Acute myocardial infarction, subendocardial infarction, episode of care unspecified documented in this encounter Admitting Diagnoses Diagnosis NSTEMI (non-ST elevated myocardial infarction) Acute myocardial infarction, subendocardial infarction, episode of care unspecified documented in this encounter Administered Medications Inactive Administered Medications - up to 3 most recent administrations Medication Order MAR Action Action Date Dose Rate Site apixaban (Eliquis) tablet 5 mg 5 mg, Oral, 2 TIMES DAILY, First dose on Tue12/04/23 at 0900, Until Discontinued, Anticoagulant, Routine, Restricted anticoagulant, choose the most appropriate response: Approved indication of non-valvular atrial fibrillation Given 12/04/2023 8:44 AM EDT 5 mg aspirin chewable tablet 81 mg 81 mg, Oral, DAILY, First dose on Tue11/29/23 at 0900, Until Discontinued, Routine Given 12/04/2023 8:44 AM EDT 81 mg Given 2023 8:09 AM EDT 81 mg Given 12/02/2023 8:11 AM EDT 81 mg atorvastatin (Lipitor) tablet 40 mg 40 mg, Oral, DAILY AT NOON, First dose on Tue11/28/23 at 1330, Until Discontinued, Routine Given 11/28/2023 12:5 1 PM EDT 40 mg atorvastatin (Lipitor) tablet 80 mg 80 mg, Oral, DAILY AT NOON, First dose (after last modification) on Tue11/29/23 at 1200, Until Discontinued, Routine Given 12/04/2023 11:42 AM EDT 80 mg Given 2023 12:39 PM EDT 80 mg Given 12/01/2023 11:52 AM EDT 80 mg baclofen (Lioresal) tablet 5 mg 5 mg, Oral, 2 TIMES DAILY, First dose on Tue11/28/23 at 1330, Until Discontinued, Routine Given 12/04/2023 8:45 AM EDT 5 mg Given 2023 8:13 PM EDT 5 mg Given 2023 8:10 AM EDT 5 mg clopidogreL (Plavix) tablet 75 mg 75 mg, Oral, DAILY, First dose on Tue11/29/23 at 0900, Until Discontinued, Routine Given 12/04/2023 8:44 AM EDT 75 mg Given 2023 8:09 AM EDT 75 mg Given 12/02/2023 8:11 AM EDT 75 mg furosemide (Lasix) (10 mg/mL) injection 40 mg 40 mg, Intravenous, ONCE, 1 dose, On Tue11/28/23 at 1215 Given 11/28/2023 11:33 AM EDT 40 mg furosemide (Lasix) (10 mg/mL) injection 40 mg 40 mg, Intravenous, ONCE, 1 dose, On Tue11/29/23 at 1200 Given 11/29/2023 11:34 AM EDT 40 mg furosemide (Lasix) (10 mg/mL) injection 80 mg 80 mg, Intravenous, ONCE, 1 dose, On Tue11/28/23 at 1545 Given 11/28/2023 3:07 PM EDT 80 mg heparin (porcine) (5,000 units/1 mL) subcutaneous injection 5,000 Units 5,000 Units, Subcutaneous, EVERY 8 HOURS SCHEDULED, First dose on Tue12/02/23 at 2200, Until Discontinued, Routine Given 12/04/2023 6:33 AM EDT 5,000 Units Given 2023 9:20 PM EDT 5,000 Units Given 2023 2:21 PM EDT 5,000 Units heparin (porcine) 50 units/mL in dextrose 5% 500 mL infusion 0-5,000 Units/hr (0-100 mL/hr), Intravenous, CONTINUOUS, Starting on Tue11/28/23 at 1200, Until Tue12/02/23 at 1800, Begin infusion at 1,000 units per hr (12 units/kg/hr). Maximum initial infusion rate is 1,000 units/hr. Infusion doses are rounded to the nearest 50 units. Target Heparin UFH Level (anti-Xa activity) = 0.3 - 0.7 international unit/mL Start adjustment schedule 6 hours after starting infusion. If Heparin UFH Level is: - Less than 0.1 international unit/mL: Administer PRN bolus and increase rate by 450 units per hr (4 units/kg/hr) - 0.1 [...] for 60 minutes then decrease rate by 350 units per hour (3 units/kg/hr) Obtain Heparin [...] Level - Per Protocol, Routine New Bag 12/01/2023 3:09 PM EDT 800 Units/hr 16 mL/hr New Bag 12/01/2023 8:53 AM EDT 600 Units/hr 12 mL/hr New Bag 12/01/2023 1:44 AM EDT 400 Units/hr 8 mL/hr ipratropium-albuteroL (Duoneb) 0.5 mg-3 mg(2.5 mg base)/3 mL nebulizer solution 3 mL 3 mL, Nebulization, EVERY 4 HOURS SCHEDULED, First dose on Tue11/28/23 at 1745, Until Discontinued, Routine Given 12/04/2023 11:42 AM EDT 3 mLs Given 12/04/2023 8:45 AM EDT 3 mLs Given 12/04/2023 3:09 AM EDT 3 mLs lactated ringers infusion 100 mL/hr, Intravenous, CONTINUOUS, Starting on Tue11/30/23 at 2300, Until [place] 12/01/23 at 0459 New Bag 11/30/2023 11:45 PM EDT 100 mL/hr 100 mL/hr lamoTRIgine (LaMICtal) tablet 100 mg 100 mg, Oral, 2 TIMES DAILY, First dose on Tue11/28/23 at 1330, Until Discontinued, Routine Given 12/04/2023 8:44 AM EDT 100 mg Given 2023 8:13 PM EDT 100 mg Given 2023 8:09 AM EDT 100 mg levothyroxine (Synthroid) tablet 100 mcg 100 mcg, Oral, EVERY MORNING, First dose on Tue11/28/23 at 1330, Until Discontinued, Routine Given 12/04/2023 6:33 AM EDT 100 mcg Given 2023 6:50 AM EDT 100 mcg Given 12/02/2023 5:37 AM EDT 100 mcg metoprolol succinate XL (Toprol-XL) tablet 50 mg 50 mg, Oral, 2 TIMES DAILY, First dose on Tue12/04/23 at 0900, Until Discontinued, DO NOT CRUSH OR OPEN, Routine Given 12/04/2023 8:44 AM EDT 50 mg metoprolol tartrate (Lopressor) tablet 12.5 mg 12.5 mg, Oral, EVERY 6 HOURS SCHEDULED, First dose on Tue11/29/23 at 1200, Until Discontinued, Routine Given 12/04/2023 6:33 AM EDT 12.5 mg Given 2023 11:20 PM EDT 12.5 mg Given 2023 6:09 PM EDT 12.5 mg ondansetron (Zofran) tablet 4 mg 4 mg, Oral, EVERY 8 HOURS PRN, Starting on Tue11/28/23 at 1232, Until Tue12/04/23 at 1625, Nausea, Routine Given 2023 7:09 AM EDT 4 mg Given 11/28/2023 10:05 PM EDT 4 mg oxyCODONE (Roxicodone) tablet 5 mg 5 mg, Oral, ONCE, 1 dose, On Tue12/02/23 at 1645, Routine Given 12/02/2023 4:05 PM EDT 5 mg oxyCODONE-acetaminophen (Percocet) 5-325 mg per tablet 2 tablet 2 tablet, Oral, EVERY 8 HOURS PRN, Pain, Starting on Tue11/28/23 at 1232, Until 12/04/23 at 1625 Given 12/04/2023 11:41 AM EDT 2 tablets Given 12/04/2023 3:13 AM EDT 2 tablets Given 2023 6:11 PM EDT 2 tablets pantoprazole EC (Protonix) tablet 40 mg 40 mg, Oral, DAILY, First dose on Tue11/28/23 at 1330, Until Discontinued, DO NOT CRUSH OR OPEN, Routine Given 12/04/2023 8:44 AM EDT 40 mg Given 2023 8:09 AM EDT 40 mg Given 12/02/2023 8:11 AM EDT 40 mg perflutren protein-A microsphers (Optison) (0.22 mg/mL) injection 0.5 mL 0.5 mL, Intravenous, ONCE PRN, 1 dose, Starting on Tue11/28/23 at 1642, Until Tue11/28/23 at 1330, for enhancement of sub-optimal echo images, Echo Lab (Intra-Procedure), Routine Given 11/28/2023 1:30 PM EDT 1.2 mLs potassium chloride ER (Klor-Con M) crystal tablet 20 mEq 20 mEq, Oral, EVERY 4 HOURS PRN, Starting on Tue11/28/23 at 1227, Until 12/04/23 at 1625, hypokalemia, Administer for serum potassium (mMol/L) of 3.9 - 4 potassium chloride ER particle/crystal tablets (Klor-Con M) may be broken in half and each half swallowed separately. Tablets can be dissolved in ~4 ounces of water; allow ~2 minutes to dissolve, stir well and drink immediately. Do not crush, chew, or suck on tablet., Routine Given 2023 4:16 PM EDT 20 mEq potassium chloride ER (Klor-Con M) crystal tablet 40 mEq 40 mEq, Oral, EVERY 4 HOURS PRN, Starting on Tue11/28/23 at 1227, Until Tue12/04/23 at 1625, hypokalemia, Administer for serum potassium (mMol/L) of 3.6 - 3.8 potassium chloride ER particle/crystal tablets (Klor-Con M) may be broken in half and each half swallowed separately. Tablets can be dissolved in ~4 ounces of water; allow ~2 minutes to dissolve, stir well and drink immediately. Do not crush, chew, or suck on tablet., Routine Given 11/29/2023 3:27 AM EDT 40 mEq Given 11/28/2023 7:03 PM EDT 40 mEq Given 11/28/2023 12:41 PM EDT 40 mEq QUEtiapine (SEROquel) tablet 100 mg 100 mg, Oral, NIGHTLY, First dose on Tue11/28/23 at 2100, Until Discontinued, Routine Given 2023 8:13 PM EDT 100 mg Given 12/02/2023 8:20 PM EDT 100 mg Given 12/01/2023 9:40 PM EDT 100 mg sodium chloride 0.9 % (flush) (BD PosiFlush Normal Saline 0.9) flush 5 mL 5 mL, Intravenous, 2 TIMES DAILY, First dose on Tue11/28/23 at 1200, Until Discontinued, Routine Given 12/04/2023 9:00 AM EDT 5 mLs Given 2023 8:13 PM EDT 5 mLs Given 2023 8:10 AM EDT 5 mLs sodium chloride 0.9% infusion 100 mL/hr, Intravenous, CONTINUOUS, Starting on Tue11/28/23 at 1800, Until Tue11/28/23 at 2259, Recovery (Recovery-Hospital Unit) Rate/Dose Verify 11/28/2023 10:00 PM EDT 100 mL/hr 100 mL/hr Rate/Dose Verify 11/28/2023 8:00 PM EDT 100 mL/hr 100 mL/ hr Rate/Dose Verify 11/28/2023 6:00 PM EDT 100 mL/hr 100 mL/ hr sodium chloride 0.9% infusion 100 mL/hr, Intravenous, CONTINUOUS, Starting on Tue12/02/23 at 1315, Until Tue12/02/23 at 1814, Recovery (Recovery-Hospital Unit) New Bag 12/02/2023 3:15 PM EDT 100 mL/hr 100 mL /hr documented in this encounter Active and Recently Administered Medications Times are shown in EDT. Scheduled Medication Order 12/02/2023 2023 12/04/2023 apixaban (Eliquis) tablet 5 mg 5 mg, Oral, 2 TIMES DAILY, First dose on Tue12/04/23 at 0900, Until Discontinued, Anticoagulant, Routine, Restricted anticoagulant, choose the most appropriate response: Approved indication of non-valvular atrial fibrillation 0844 (Given - Provider: Angelique Michaels RN) aspirin chewable tablet 81 mg 81 mg, Oral, DAILY, First dose on Tue11/29/23 at 0900, Until Discontinued, Routine 0811 (Given - Provider: Mark Hooper RN)1158 ([facility] Hold - Provider: Admin Adt - Reason: Transfer to a Procedural area)1543 ([facility] Unhold - Provider: Admin Adt) 0809 (Given - Provider: Mark Hooper RN) 0844 (Given - Provider: Angelique Michaels RN) atorvastatin (Lipitor) tablet 80 mg 80 mg, Oral, DAILY AT NOON, First dose (after last modification) on Tue11/29/23 at 1200, Until Discontinued, Routine 1158 ([facility] Hold - Provider: Admin Adt - Reason: Transfer to a Procedural area)1200 (Not Given - Provider: Mark Hooper RN - Reason: Patient not available)1543 ([facility] Unhold - Provider: Admin Adt) 1239 (Given - Provider: Mark Hooper RN) 1142 (Given - Provider: Angelique Michaels RN) baclofen (Lioresal) tablet 5 mg 5 mg, Oral, 2 TIMES DAILY, First dose on Tue11/28/23 at 1330, Until Discontinued, Routine 0811 (Given - Provider: Mark Hooper RN)1158 ([facility] Hold - Provider: Admin Adt - Reason: Transfer to a Procedural area)1543 ([facility] Unhold - Provider: Admin Adt)2020 (Given - Provider: Lukas Dia RN) 0810 (Given - Provider: Mark Hooper RN)2012 (Given - Provider: Lukas Dia RN) 0845 (Given - Provider: Angelique Micheals RN) clopidogreL (Plavix) tablet 75 mg 75 mg, Oral, DAILY, First dose on Tue11/29/23 at 0900, Until Discontinued, Routine 0811 (Given - Provider: Mark Hooper RN)1158 ([facility] Hold - Provider: Admin Adt - Reason: Transfer to a Procedural area)1543 (NOV Unhold - Provider: Admin Adt) 0809 (Given - Provider: Mark Hooper RN) 0844 (Given - Provider: Angelique Michaels RN) heparin (porcine) (5,000 units/1 mL) subcutaneous injection 5,000 Units (CANCELED) 5,000 Units, Subcutaneous, EVERY 8 HOURS SCHEDULED, First dose on Tue12/02/23 at 2200, Until Discontinued, Routine 2136 (Given - Provider: Lukas Dia RN) 0649 (Given - Provider: Lukas Dia RN)1421 (Given - Provider: Mark Hooper RN)2120 (Given - Provider: Lukas Dia RN) 0633 (Given - Provider: Lukas Dia RN) ipratropium-albuteroL (Duoneb) 0.5 mg-3 mg(2.5 mg base)/3 mL nebulizer solution 3 mL 3 mL, Nebulization, EVERY 4 HOURS SCHEDULED, First dose on Tue11/28/23 at 1745, Until Discontinued, Routine 0000 (Not Given - Provider: Santa Barrett RN - Reason: Patient/family refused)0537 (Given - Provider: Santa Barrett RN - Comment: pt request to reschedule)0812 (Given - Provider: Mark Hooper RN)1158 (NOV Hold - Provider: Admin Adt - Reason: Transfer to a Procedural area)1200 (Not Given - Provider: Mark Hooper RN - Reason: Patient not available)1543 (NOV Unhold - Provider: Admin Adt)1600 (Given - Provider: Mark Hooper RN)2000 (Not Given - Provider: Lukas Dia RN - Reason: Patient/family refused)2346 (Given - Provider: Lukas Dia RN) 0308 (Given - Provider: Lukas Dia RN)0901 (Given - Provider: Mark Hooper RN)1200 (Not Given - Provider: Mark Hooper RN - Reason: Patient/family refused)1550 (Given - Provider: Mark Hooper RN)1955 (Given - Provider: Lukas Dia RN) 0000 (Not Given - Provider: Lukas Dia RN - Reason: Patient/family refused)0309 (Given - Provider: Lukas Dia RN)0845 (Given - Provider: Angelique Michaels, KANDI)1142 (Given - Provider: Angelique Michaels, KANDI) lamoTRIgine (LaMICtal) tablet 100 mg 100 mg, Oral, 2 TIMES DAILY, First dose on Tue11/28/23 at 1330, Until Discontinued, Routine 0811 (Given - Provider: Mark Hooper RN)1158 (NOV Hold - Provider: Admin Adt - Reason: Transfer to a Procedural area)1543 ([facility] Unhold - Provider: Admin Adt)2020 (Given - Provider: Lukas Dia RN) 0809 (Given - Provider: Mark Hooper RN)2013 (Given - Provider: Lukas Dia RN) 0844 (Given - Provider: Angelique Michaels RN) levothyroxine (Synthroid) tablet 100 mcg 100 mcg, Oral, EVERY MORNING, First dose on Tue11/28/23 at 1330, Until Discontinued, Routine 0537 (Given - Provider: Santa Barrett RN)1158 ([facility] Hold - Provider: Admin Adt - Reason: Transfer to a Procedural area)1543 ([facility] Unhold - Provider: Admin Adt) 0650 (Given - Provider: Lukas Dia RN) 0633 (Given - Provider: Lukas Dia RN) metoprolol succinate XL (Toprol-XL) tablet 50 mg 50 mg, Oral, 2 TIMES DAILY, First dose on Tue12/04/23 at 0900, Until Discontinued, DO NOT CRUSH OR OPEN, Routine 0844 (Given - Provider: Angelique Michaels, KANDI) metoprolol tartrate (Lopressor) tablet 12.5 mg (CANCELED) 12.5 mg, Oral, EVERY 6 HOURS SCHEDULED, First dose on Tue11/29/23 at 1200, Until Discontinued, Routine 0537 (Given - Provider: Santa Barrett RN)1158 (NOV Hold - Provider: Admin Adt - Reason: Transfer to a Procedural area)1200 (Not Given - Provider: Mark Hooper RN - Reason: Patient not available)1543 ([facility] Unhold - Provider: Admin Adt)1823 (Given - Provider: Mark Hooper RN)2346 (Given - Provider: Lukas Dia RN) 0649 (Given - Provider: Lukas Dia RN)1239 (Given - Provider: Mark Hooper, KANDI)1809 (Given - Provider: Mark Hooper RN)2320 (Given - Provider: Lukas Dia RN) 0633 (Given - Provider: Lukas Dia RN) oxyCODONE (Roxicodone) tablet 5 mg (COMPLETED) 5 mg, Oral, ONCE, 1 dose, On Tue12/02/23 at 1645, Routine 1605 (Given - Provider: Mark Hooper RN) pantoprazole EC (Protonix) tablet 40 mg 40 mg, Oral, DAILY, First dose on Tue11/28/23 at 1330, Until Discontinued, DO NOT CRUSH OR OPEN, Routine 0811 (Given - Provider: Mark Hooper RN)1158 ([facility] Hold - Provider: Admin Adt - Reason: Transfer to a Procedural area)1543 ([facility] Unhold - Provider: Admin Adt) 0809 (Given - Provider: Mark Hooper RN) 0844 (Given - Provider: Angelique Michaels RN) QUEtiapine (SEROquel) tablet 100 mg 100 mg, Oral, NIGHTLY, First dose on Tue11/28/23 at 2100, Until Discontinued, Routine 1158 (NOV Hold - Provider: Admin Adt - Reason: Transfer to a Procedural area)1543 ([facility] Unhold - Provider: Admin Adt)2020 (Given - Provider: Lukas Dia RN) 2012 (Given - Provider: Lukas Dia RN) sodium chloride 0.9 % (flush) (BD PosiFlush Normal Saline 0.9) flush 5 mL 5 mL, Intravenous, 2 TIMES DAILY, First dose on Tue11/28/23 at 1200, Until Discontinued, Routine 0812 (Not Given - Provider: Mark Hooper RN - Reason: See comment - Comment: infusion)1158 ([facility] Hold - Provider: Admin Adt - Reason: Transfer to a Procedural area)1543 ([facility] Unhold - Provider: Admin Adt)2100 (Not Given - Provider: Lukas Dia RN - Reason: See comment - Comment: NS infusing) 08 (Given - Provider: Mark Hooper RN)2012 (Given - Provider: Lukas Dia, KANDI) 09 (Given - Provider: Angelique Michaels RN) Continuous Medication Order 12/02/2023 2023 12/04/2023 sodium chloride 0.9% infusion () 100 mL/hr, Intravenous, CONTINUOUS, Starting on Tue12/02/23 at 1315, Until Tue12/02/23 at 1814, Recovery (Recovery-Hospital Unit) 1515 (New Bag - Provider: Mark Hooper RN) PRN Medication Order 12/02/2023 2023 12/04/2023 fentaNYL (pf) (50 mcg/mL) multi-dose injection (CANCELED) PRN, Starting on Tue12/02/23 at 1117, Until Tue12/02/23 at 1543, Intra-Operative (Intra-Procedure), Routine 1117 (Given - Provider: Kwabena Nevarez RN)1129 (Given - Provider: Hawa Guzmán RN)1224 (Given - Provider: Kwabena Nevarez RN) heparin (porcine) (1,000 units/mL) injection (CANCELED) PRN, Starting on Tue12/02/23 at 1134, Until Tue12/02/23 at 1543, Intra-Operative (Intra-Procedure), Routine 1134 (Given - Provider: Hawa Guzmán RN)1146 (Given - Provider: Hawa Guzmán, KANDI)1159 (Given - Provider: Hawa Guzmán RN - Comment: act 249) iohexoL (Omnipaque) (350 mg/mL) solution (CANCELED) PRN, Starting on Tue12/02/23 at 1226, Until Tue12/02/23 at 1543, Intra-Operative (Intra-Procedure), Routine 1226 (Given - Provider: Ryder Hargrove MD) lidocaine (Xylocaine) 1% (10 mg/mL) injection 3 mg 3 mg (0.3 mL), Subcutaneous, ONCE PRN, 1 dose, Starting on Tue11/28/23 at 1105, Until Tue12/04/23 at 1625, for discomfort with PIV insertion, Routine 1158 (NOV Hold - Provider: Admin Adt - Reason: Transfer to a Procedural area)1543 (NOV Unhold - Provider: Admin Adt) midazolam (pf) (Versed) (1 mg/mL) multi-dose injection (CANCELED) PRN, Starting on Tue12/02/23 at 1117, Until Tue12/02/23 at 1543, Intra-Operative (Intra-Procedure), Routine 1117 (Given - Provider: Kwabena Nevarez RN)1129 (Given - Provider: Hawa Guzmán RN) nitroGLYcerin (Nitrostat) disintegrating tablet 0.4 mg 0.4 mg, Sublingual, EVERY 5 MIN PRN, Starting on Tue11/28/23 at 1105, Until Tue12/04/23 at 1625, Chest pain, May repeat every 5 minutes for a total of three doses. Notify provider if chest pain not relieved with nitroglycerin. Do not administer nitroglycerin if the patient has received or taken phosphodiesterase (PDE-5) inhibitors such as sildenafil, tadalafil or vardenafil within the last 24 to 72 hours., Routine 1158 (NOV Hold - Provider: Admin Adt - Reason: Transfer to a Procedural area)1543 ([facility] Unhold - Provider: Admin Adt) ondansetron (Zofran) tablet 4 mg 4 mg, Oral, EVERY 8 HOURS PRN, Starting on Tue11/28/23 at 1232, Until Tue12/04/23 at 1625, Nausea, Routine 1158 (NOV Hold - Provider: Admin Adt - Reason: Transfer to a Procedural area)1543 (NOV Unhold - Provider: Admin Adt) 0709 (Given - Provider: Mark Hooper RN) oxyCODONE-acetaminophen (Percocet) 5-325 mg per tablet 2 tablet 2 tablet, Oral, EVERY 8 HOURS PRN, Pain, Starting on 11/28/23 at 1232, Until 12/04/23 at 1625 0002 (Given - Provider: Santa Barrett RN)1036 (Given - Provider: Mark Hooper RN)1158 ([facility] Hold - Provider: Admin Adt - Reason: Transfer to a Procedural area)1543 ([facility] Unhold - Provider: Admin Adt)202 (Given - Provider: Lukas Dia RN) 0654 (Given - Provider: Lukas Dia RN)1811 (Given - Provider: Mark Hooper RN) 0313 (Given - Provider: Lukas Dia RN)1141 (Given - Provider: Angelique Michaels RN) potassium chloride ER (Klor-Con M) crystal tablet 20 mEq(Linked Group 1) 20 mEq, Oral, EVERY 4 HOURS PRN, Starting on 11/28/23 at 1227, Until 12/04/23 at 1625, hypokalemia, Administer for serum potassium (mMol/L) of 3.9 - 4 potassium chloride ER particle/crystal tablets (Klor-Con M) may be broken in half and each half swallowed separately. Tablets can be dissolved in ~4 ounces of water; allow ~2 minutes to dissolve, stir well and drink immediately. Do not crush, chew, or suck on tablet., Routine 1158 ([facility] Hold - Provider: Admin Adt - Reason: Transfer to a Procedural area)1543 ([facility] Unhold - Provider: Admin Adt) 1616 (Given - Provider: Mark Hooper RN) potassium chloride ER (Klor-Con M) crystal tablet 40 mEq(Linked Group 1) 40 mEq, Oral, EVERY 4 HOURS PRN, Starting on 11/28/23 at 1227, Until 12/04/23 at 1625, hypokalemia, Administer for serum potassium (mMol/L) of 3.6 - 3.8 potassium chloride ER particle/crystal tablets (Klor-Con M) may be broken in half and each half swallowed separately. Tablets can be dissolved in ~4 ounces of water; allow ~2 minutes to dissolve, stir well and drink immediately. Do not crush, chew, or suck on tablet., Routine 1158 (NOV Hold - Provider: Admin Adt - Reason: Transfer to a Procedural area)1543 ([facility]OV Unhold - Provider: Admin Adt) 1616 (See Alternative - Provider: Mark Hooper RN) sodium chloride 0.9 % (flush) (BD PosiFlush Normal Saline 0.9) flush 5-20 mL 5-20 mL, Intravenous, EVERY 1 MIN PRN, Starting on Tue11/28/23 at 1105, Until 12/04/23 at 1625, flush, Flush pertains to all indwelling lines. Flush per protocol found in the job aid using the link provided on this medication record., Routine 1158 (NOV Hold - Provider: Admin Adt - Reason: Transfer to a Procedural area)1543 ([facility] Unhold - Provider: Admin Adt) Linked Groups Order Group 1: potassium chloride ER (Klor-Con M) crystal tablet 40 mEqJump to med 40 mEq, Oral, EVERY 4 HOURS PRN, Starting on Tue11/28/23 at 1227, Until 12/04/23 at 1625, hypokalemia, Administer for serum potassium (mMol/L) of 3.6 - 3.8 potassium chloride ER particle/crystal tablets (Klor-Con M) may be broken in half and each half swallowed separately. Tablets can be dissolved in ~4 ounces of water; allow ~2 minutes to dissolve, stir well and drink immediately. Do not crush, chew, or suck on tablet., Routine Or potassium chloride ER (Klor-Con M) crystal tablet 20 mEqJump to med 20 mEq, Oral, EVERY 4 HOURS PRN, Starting on Tue11/28/23 at 1227, Until 12/04/23 at 1625, hypokalemia, Administer for serum potassium (mMol/L) of 3.9 - 4 potassium chloride ER particle/crystal tablets (Klor-Con M) may be broken in half and each half swallowed separately. Tablets can be dissolved in ~4 ounces of water; allow ~2 minutes to dissolve, stir well and drink immediately. Do not crush, chew, or suck on tablet., Routine documented in this encounter Care Teams Voice Studies Director Relationship Specialty Start Date End Date Gaudencio Scales DO [address] [place] [address] PCP - General Family Medicine 11/28/23 documented as of this encounter
--- OUTSIDE RECORDS SUMMARY | 2024-07-27 12:49 | XMS_ITS | Encounter Summary ---
Author Organization [facility] Address [facility] [place] [address] Care Team Providers Care Port Purser Name Role Phone Gaudencio Scales DO Primary Care Provider [phone] Encounter Details Date Type Department Care Team (Late st Contact Info) Description 02/03/2024 Ancillary Procedure Radiology Library at [facility] [place] [id number] Gaudencio Scales DO [address] [place], [place] [id number] Social History Tobacco Use Types Packs/Day Years Used Date Smoking Tobacco: Former Cigarettes 1 40 0 11/17/1981 - 11/17/2021 Smokeless Tobacco: Never Alcohol Use Standard Drinks/Week Comments Not Currently 0 (1 standard drink = 0.6 oz pur e alcohol) [facility] Utilities Answer Date Recorded In [...] in a alf (including now)? No 11/29/2023 IPV Inpatient Questions [...] 8:40 AM EST Hospital Encounter Mammography at [place] [phone] Jr Fulton MD [facility] [place] [address] 07/30/2024 8:45 AM EST [place] [phone] Jr Fulton MD [facility] [place] [address] 07/30/2024 9:20 AM EST Hospital [place] [phone] Jr Fulton MD [facility] [place] [address] 07/30/2024 10:51 AM EST Hospital Encounter Outpatient Surgery Center [place] [phone] Jr Fulton MD [facility] [place] [address] 07/30/2024 10:51 AM EST Anesthesia Event [place] [phone] Megan Orona [place] [address] 07/30/2024 10:51 AM EST - 07/30/2024 1:11 PM EST Surgery Outpatient [facility] [place] [phone] Jr Fulton MD [facility] [place] [address] MASTECTOMY PARTIAL (WRVU 10.13) 08/22/2024 2:00 PM EST Office Visit General Surgery at [place] [phone] Cindy Pierce APRN [facility] [place] [address] 08/22/2024 3:00 PM EST Office Visit Hematology and Oncology at [place] [phone] Soo Lyn MD [facility] [place] [address] 08/27/2024 9:30 AM EST Scheduled View Only Radiation Oncology at [address] [phone] St Josr [place] 08/27/2024 10:00 AM EST Office Visit Radiation Oncology at [address] [phone] Paradise Prado MD [facility] [place] [address] 2024 1:00 PM EDT Office Visit Cardiology at [address] [place] [address] Ham Montenegro MD [facility] [place] [address] Scheduled Procedures Name Priority Associated Diagnoses Date/Ti [...] Associated Diagnosis Comments FILM LIBRARY STORAGE ONLY MAMMO Routine 02/03/2024 12:00 AM EDT documented in this encounter Results * Film Library- Storage Only Mammo (02/03/2024 12:00 AM EDT) Narrative [facility] - 02/16/2024 8:17 PM EDT This exam is auto-finalizing. It's purpose is for storage only. Gaudencio Scales DO G FILM LIBRARY ORD ERABLES [place], [place] documented in this encounter Visit Diagnoses Not on filedocumented in this encounter Care Teams Port Purser Relationship Specialty Start Date End Date Gaudencio Scales DO [address] [place] [address] PCP - General Family Medicine 11/28/23 documented as of this encounter
--- OUTSIDE RECORDS SUMMARY | 2024-07-27 12:49 | XMS_ITS | Encounter Summary ---
Author Organization Counts Include [facility] Address [facility] [place] [address] Care Team Providers Care Primer Waterproofing Machine Adjuster Name Role Phone Guadencio Scales DO Primary Care Provider [phone] Encounter Details Date Type Department Care Team (Late st Contact Info) Description 01/17/2024 Ancillary Procedure Radiology Library at [facility] [place] [phone] Gaudencio Scales DO [address] [place], [place] [phone] Social History Tobacco Use Types Packs/Day Years Used Date Smoking Tobacco: Former Cigarettes 1 40 0 11/17/1981 - 11/17/2021 Smokeless Tobacco: Never Alcohol Use Standard Drinks/Week Comments Not Currently 0 (1 standard drink = 0.6 oz pur e alcohol) [facility] Utilities Answer Date Recorded In [...] in a fdc (including now)? No 11/29/2023 IPV Inpatient Questions [...] 8:40 AM EST Hospital Encounter Mammography at [place] [phone] Jr Fulton MD [facility] [place] [address] 07/30/2024 8:45 AM EST Appointment [place] [phone] Jr Fulton MD [facility] [place] [address] 07/30/2024 9:20 AM EST Hospital En[place] [phone] Jr Fulton MD [facility] [place] [address] 07/30/2024 10:51 AM EST Hospital Encounter Outpatient Surgery Center [place] [phone] Jr Fulton MD [facility] [place] [address] 07/30/2024 10:51 AM EST Anesthesia Event Outpatient [place] [phone] Megan Oron[place] [address] 07/30/2024 10:51 AM EST - 07/30/2024 1:11 PM EST Surgery Out[facility] [place] [phone] Jr Fulton MD [facility] [place] [address] MASTECTOMY PARTIAL (WRVU 10.13) 08/22/2024 2:00 PM EST Office Visit General Surgery at [place] [phone] Cindy Pierce APRN [facility] [place] [address] 08/22/2024 3:00 PM EST Office Visit Hematology and Oncology at [place] [phone] Soo Lyn MD [facility] [place] [address] 08/27/2024 9:30 AM EST Scheduled View Only Radiation Oncology at [address] [phone] St Josr [place] 08/27/2024 10:00 AM EST Office Visit Radiation Oncology at [address] [phone] Paradise Prado MD [facility] [place] [address] 2024 1:00 PM EDT Office Visit Cardiology at [address] [place] [address] Ham Montenegro MD [facility] [place] [place] [address] Scheduled Procedures Name Priority Associated Diagnoses Date/Ti [...] Comments FILM LIBRARY STORAGE ONLY MAMMO Routine 01/17/2024 12:00 AM EDT documented in this encounter Results * Film Library- Storage Only Mammo (01/17/2024 12:00 AM EDT) Narrative [facility] - 02/16/2024 8:17 PM EDT This exam is auto-finalizing. It's purpose is for storage only. Gaudencio Scales DO G FILM LIBRARY ORD ERABLES [place], [place] documented in this encounter Visit Diagnoses Not on filedocumented in this encounter Care Teams Primer Waterproofing Machine Adjuster Relationship Specialty Start Date End Date Gaudencio Scales DO [address] [place] [address] PCP - General Family Medicine 11/28/23 documented as of this encounter
--- OUTSIDE RECORDS SUMMARY | 2024-07-27 12:49 | XMS_ITS | Encounter Summary ---
Author Organization [facility] Address [facility] [place] [address] Care Team Providers Care Rejogger Name Role Phone Gaudencio Scales DO Primary Care Provider [phone] Encounter Details Date Type Department Care Team (Late st Contact Info) Description 02/16/2024 Telephone Hematology [facility] [place] [phone] Tresa Zapata Social History Tobacco Use Types Packs/Day Years Used Date Smoking Tobacco: Former Cigarettes 1 40 0 11/17/1981 - 11/17/2021 Smokeless Tobacco: Never Alcohol Use Standard Drinks/Week Comments Not Currently 0 (1 standard drink = 0.6 oz pur e alcohol) [facility] Utilities Answer Date Recorded In the past 12 months has th e electric, gas, oil, or water [employer] threatened to shut off services in your [...] a skilled nursing (including now)? No 11/29/2023 IPV Inpatient Questions [...] Telephone Encounter - Tresa Zapata - 02/16/2024 11:49 AM EDT Patient Name: Oksana Betancourt Patient : 1965 Attn: Image Library From: [facility] - [phone] Phone: Fed-Ex# [phone] - Please overnight [x] Urgent [] For Review [] Please Reply [] Please Recycle Pursuant to the Federal Mammography Quality Standards Act-Section 900.12(c), (4), (ii) Comments: Please send all Digital Breast Images. Also include any other scans pertaining to Breast Cancer (CD, Films, Electronic Transfer & Reports) to [facility], [place] [address] If Questions call [phone] Notice of Confidentiality: The documents accompanying this FAX transmission cover contain information from [facility] that is confidential and privileged. The information [...] the documents at no cost to you. documented in this encounter Plan of Treatment Upcoming Encounters Date Type Department Care Team (Latest Contact Info) Description 07/30/2024 8:40 AM EST Hospital Encounter Mammography at [place] [phone] Jr Fulton MD [facility] [place] [address] 07/30/2024 8:45 AM EST Appointment Mammography at [place] [phone] Jr Fulton MD [facility] [place] [address] 07/30/2024 9:20 AM EST Hospital Encounter Mammography at [place] [phone] Jr Fulton MD [facility] [place] [address] 07/30/2024 10:51 AM EST Hospital Encounter Outpatient [place] [address] Jr Fulton MD [facility] [address] [place] [address] 07/30/2024 10:51 AM EST Anesthesia Event [facility]patient [place] [address] Megan Oron[place] [address] 07/30/2024 10:51 AM EST - 07/30/2024 1:11 PM EST Surgery [facility]patient [place] [address] Jr Fulton MD [facility] [place] [address] MASTECTOMY PARTIAL (WRVU 10.13) 08/22/2024 2:00 PM EST Office Visit General Surgery at [place] [phone] Cindy Pierce APRN [facility] [address] 08/22/2024 3:00 PM EST Office Visit Hematology [place] [phone] Soo Lyn MD [facility] [place] [address] 08/27/2024 9:30 AM EST Scheduled View Only Radiation Oncology at [address] [phone] Rad Nurse, [facility] [place] 08/27/2024 10:00 AM EST Office Visit Radiation Oncology at [address] [phone] Paradise Prado MD [facility] [place] [address] 2024 1:00 PM EDT Office Visit Cardiology at [address] [place] [phone] Ham Montenegro MD [facility] [place] [address] Scheduled Procedures Name Priority Associated Diagnoses Date/Ti [...] on filedocumented in this encounter Care Teams Rejogger Relationship Specialty Start Date End Date Gaudencio Scales DO [address] [place], [place] [address] [address] PCP - General Family Medicine 11/28/23 documented as of this encounter
--- OUTSIDE RECORDS SUMMARY | 2024-07-27 12:50 | XMS_ITS | Encounter Summary ---
Author Organization [employer], Located Within [facility] [place] [address] Care Team Providers Care Numerical Tool Programmer Name Role Phone Gaudencio Scales Antoine VERGARA Primary Care Provider Reason for Visit * Auth/Cert (Routine) Specialty Diagnoses / Procedures Referred By Radha t Referred To Contact Diagnoses NSTEMI (non-ST elevated myocardial infarction) NSTEMI Procedures emerg alexi Emory Ross MD [facility] [place] [place] [address] [facility] Referral ID Status Reason Start Date Expiration Date Visits Re quested Visits Authorized [id number] 1 1 Encounter Details Date Type Department Care Team (Late st Contact Info) Description 12/02/2023 12:00 PM EDT - 12/02/2023 1:00 PM EDT Surgery [place] [address] Ryder Hargrove MD [facility] [place] [address] CARDIAC CATHETERIZATION Social History Tobacco Use Types Packs/Day Years Used Date Smoking Tobacco: Former Cigarettes 1 40 0 11/17/1981 - 11/17/2021 Smokeless Tobacco: Never Tobacco Cessation:Counseling Given: Not Answered Alcohol Use Standard Drinks/Week Comments Not Currently 0 (1 standard drink = 0.6 oz pur e alcohol) [facility] Utilities Answer Date Recorded In the past 12 months has [employer] electric, gas, oil, or water company threatened [...] in a prison (including now)? No 11/29/2023 DH IPV Inpatient [...] Sign Reading Time Taken Comments Blood Pressure 151/74 12/02/2023 12:20 PM EDT Pulse 86 12/02/2023 12:20 PM EDT Temperature 36.8 ??C (98.2 ??F) 12/02/2023 7:21 AM ED T Respiratory Rate 28 12/02/2023 12:2 0 PM EDT Oxygen Saturation 98% 12/02/2023 12: 20 PM EDT Inhaled Oxygen Concentration - - Weight 109.5 kg (241 lb 4.8 oz) 12/02/2023 4:15 AM EDT Height 167.6 cm (5' 6) 11/28/2023 11:0 5 AM EDT Body Mass Index 37.95 11/28/2023 11:05 AM EDT documented in this encounter Discharge Summaries * Arlin Jackson MD - 12/04/2023 8:16 AM EDT Discharge Summary Patient Name: Oksana Betancourt Patient Age: 58 y.o. Language: Ukrainian Race: Choose not to Disclose Ethnicity: Choose [...] day - CHANGED: lasix switched to NEEDED. Jaylono aurea added PRN for breathing. Inpatient Provider Contact Information: Arlin Jackson MD [phone] For questions regarding this document or issues relating to this hospitalization on the Medical Service, please contact your inpatient physician through the [facility] Glaciologist . Issues afterhours and on weekends will [...] for comparison. See report for additional findings. [facility] 11/28/23 Conclusions: * Significant stenosis of the left main * Two vessel coronary artery disease (LAD and RCA) * Successful angioplasty of the proximal RCA lesion * Successful stent insertion of the ostial RCA lesion * See Dual Antiplatelet (DAPT) Recommendations above [facility] 12/02/23 Conclusions: * Obstructive disease of [...] triple vessel CAD s/p staged [place] in -03/2022 (with CRIS x1 to mid-RCA, CRIS x2 to ostial RCA, CRIS x1 to ostial LCX, and CRIS x1 to mid-LCX), severe s/p TAVR in 2021, baseline LBBB, HLD, HTN, Hodgkin lymphoma s/p radiation, CKD IIIb, bipolar disorder, COPD, and hypothyroidism who presented to OSH with nausea and SOB and was transferred to [facility] for high-risk NSTEMI. HPI: Oksana reports that [...] 20 mg daily. Oksana recently moved to [place] from [place], [place] at the end of August to be closer to family. She lives alone but lives next door to her brother. She has a PCP here and recently established with a lead coater (Evita Alejandro) in [facility]. She reportedly saw Dr. Alejandro within the [...] some point to avoid triple therapy. At [facility], she was hypoxic requiring initiation of BiPAP. ECG demonstrated LBBB, which is not new for her. ECG did not meet Sgarbossa criteria per [facility] financial services technician. Troponin was markedly elevated (6000s). Bedside POCUS showed LVEF 10-15%. Oksana was loaded with ASA, Plavix, and started on a heparin gtt. She was transferred to [facility] for high-risk NSTEMI. On arrival, Oksana reported [...] reassess for porcelain aorta. Patient returned to culture media laboratory assistant 12/01 for PCI to LAD and LM [...] who have questions please contact the health home visit field care manager that requested your imaging first. Electronically signed by: Andrew Khoury MD, [facility] ([phone]), at 11/28/2023 2:[address] Chest wo [...] who have questions please contact the health home visit field care manager that requested your imaging first. Cardiac Catheterization (Exam End: 11/28/2023 5:12 PM) Narrative [facility] Cardiac Catheterization/Intervention Report Patient Name: Oksana Betancourt Procedure Date: 11/28/2023 A #: [id number] Primary Physician: Ryder Hargrove Case #: [id number] File Name: [id number] Catheterization Order Number: [id number] [facility] Data Base Design Analyst [facility] Final Report [place], [place] Patient Name: Oksana Betancourt ID#: [id number] : 1965 Procedure Date: November 28, 2023 [...] was designated as ASA Class III. The [facility] clinical frailty scale is 5: Mildly Frail. Diagnostic Tests: Prior Coronary Angiography: LV ejection fraction within 6 months is 50%. Electrocardiography: EKG was assessed by ECG. EKG was Normal. Medications Prior to Procedure: Ranolazine, Aspirin, Calcium Channel Blocking Agent, Long Acting Nitrate and Statin. Indications for Diagnostic Cath: The priority of the diagnostic procedure was Urgent. The indication for the culture media laboratory assistant visit is ACS less than or equal [...] A premounted 3.50 x 22 mm Clinton Dewitt (CRIS) was deployed with a maximum inflation [...] dose administered prior to arrival in the culture media laboratory assistant. Recommended anti-platelet/anti-thrombotic regimen: Continue aspirin 81 mg daily for indefinitely. Continue clopidogrel 75 mg daily for indefinitely. These recommendations are made at the time of the intervention. Patient and provider preferences or a changing clinical situation may require modification of this regimen. Consult [facility] Interventional Cardiology for questions. Conclusions: * Significant [...] Cardiac Catheterization (Exam End: 12/02/2023 12:28 PM) Narrative [facility] Cardiac Catheterization/Intervention Report Patient Name: Oksana Betancourt Procedure Date: 12/02/2023 A #: [id number] Primary Physician: Ryder Hargrove Case #: [id number] File Name: [id number] Catheterization Order Number: [id number] [facility] Final Report [place], [place] Patient Name: Oksana Betancourt ID#: [id number] : 1965 Procedure Date: December 02, 2023 [...] was designated as ASA Class III. The [facility] clinical frailty scale is 5: Mildly Frail. Diagnostic Tests: Prior Coronary Angiography: LV ejection fraction within 6 months is 44%. Electrocardiography: EKG was assessed by ECG. EKG was Normal. Medications Prior to Procedure: Ranolazine, Aspirin, Beta Krystal, Long Acting Nitrate and Statin. Indications for Diagnostic Cath: The priority of the diagnostic procedure was Urgent. The indication for the culture media laboratory assistant visit is ACS greater than 24 hrs. [...] atmospheres. A premounted 3.50 x 12 mm Boise Dewitt (CRIS) was deployed with a maximum inflation [...] was PARADISE 3. Lesion length was 8mm. Angioplasty was [...] dose administered prior to arrival in the culture media laboratory assistant. Recommended anti-platelet/anti-thrombotic regimen: Continue aspirin 81 mg [...] may require modification of this regimen. Consult [facility] Interventional Cardiology for questions. Conclusions: * Obstructive [...] PCI of the LM/LAD/LCX bifurcation. A 6 romanian EBU 3.0 guide was used to engage [...] placed a 3.5 x 12 mm Clinton Dewitt CRIS to the LAD landing just proximal [...] 12 months. - Please follow-up with your lead coater (Dr. 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 [...] appointments: During 8am-5pm Tuesday through Tuesday call [phone] to speak with a nurse in the cardiology clinic All other times call [phone] and ask to speak to the financial services technician contract project manager. Return to work: One week Driving: No driving for 48 hours after catheterization. Follow up Appointments: PCP Gaudencio Scales DO [phone] December 09, 2023 at 11:15 am - please get labs done with PCP Cardiology Dr. Alejandro at [facility] December 26, 2023 at 9:40 am Home oxygen therapy: N/A Arrangements for VNA/home care: none General Instructions None Future Appointments and Orders Future Orders Complete By Expires Basic Metabolic Panel (non-fasting) [LAB15 Custom] 12/11/2023 06/11/2024 Process Instructions: Scheduling Instructions: Comments: Questions: Hemogram [KLG1411 Custom] 12/11/2023 06/11/2024 Process Instructions: Scheduling Instructions: Comments: Questions: Magnesium [EVV088 Custom] 12/11/2023 06/11/2024 Process Instructions: Scheduling Instructions: Comments: Questions: Phosphorus [AET914 Custom] 12/11/2023 06/11/2024 Process Instructions: Scheduling Instructions: Comments: Questions: Nebulizer (Outpatient) [EQ179 Custom] As directed Process Instructions: Scheduling Instructions: Questions: Vendor Name/Contact information: Date of related [id number]-unjl encounter: Primary Indication (to support need for nebulizer): COPD Secondary indication (optional): Compressor: Desktop Small Volume Nebulizer (e.g., Drive Power Neb Ultra, InnoSpire Essence or Alondra Vios LC Sprint) Supplies: Referral to Cardiac Rehab [FWW972 Custom] As directed Process Instructions: If no progress note charted, please enter Clinical details in comments. Scheduling Instructions: Questions: My question or request is: NSTEMI, staged PCI- cardiac rehab at [facility] Referral to Cardiology [REF12 Custom] As directed Process Instructions: If no progress note charted, please enter Clinical details in comments. Scheduling Instructions: Questions: My question or request is: NSTEMI s/p staged PCI Discharge References/Attachments None Greater than 30 minutes was spent on this discharge including documentation, [id number] time withthe patient, patient education, grey stock recorder, coordination with pharmacy and other patient care. [...] 12 months. - Please follow-up with your lead coater (Dr. 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 [...] appointments: During 8am-5pm Tuesday through Tuesday call [phone] to speak with a nurse in the cardiology clinic All other times call [phone] and ask to speak to the financial services technician contract project manager. Return to work: One week Driving: No driving for 48 hours after catheterization. Follow up Appointments: PCP Gaudencio Scales DO [phone] December 09, 2023 at 11:15 am - please get labs done with PCP Cardiology Dr. Alejandro at [facility] December 26, 2023 at 9:40 am Home [...] to: discuss discharge planning needs. provide the [facility], Office of Care Management letter from the Lacquer Spray Booth Operator pertaining to rehab referrals. provide a letter describing our affiliations within the [facility] and educate about their right to choose where referrals are sent. provide a list of Home Health Agencies / Durable Medical Equipment vendors which serve their preferred geographic area. provided patient with [facility] Star Quality Rating handout. They have requested referrals to: [facility] (Resp Supplies) Per the provider, the patient needs an nebulizer. Note routed to a Railcar Switchman who will communicate referrals to facilities and provide any required information. * Angelique Michaels RN - 12/04/2023 2:06 PM EDT Discharge instructions reviewed with PT & family, all verbalize understanding. Medications reviewed. Iv and Tele discontinued. Discharged to home * Arlin Jackson MD - 2023 4:32 PM EDT CV HOSPITALIST 1 - [facility] DAILY PROGRESS NOTE Page [phone] to reach a provider 11/04 Admit Date: [...] for comparison. See report for additional findings. [facility] 11/28/23 Coronary Angiography: Anatomically normal right [...] s/p a single 3.5 x 22 mm Boise Dewitt CRIS. - High grade distal LM and [...] triple vessel CAD s/p staged [place] in [place]03/2022 (with CRIS x1 to mid-RCA, [...] scheduling issues and continuity of specialist (Dr. Hargorve) - Loaded with ASA 325 and Plavix [...] 23 PT: OT: PCP Gaudencio Scales DO [phone] Arlin Jackson MD 2023 * Arlin Jackson MD - 12/02/2023 10:49 AM EDT CV HOSPITALIST 1 - [facility] DAILY PROGRESS NOTE Page [phone] to reach a provider 11/04 Admit Date: [...] left ventricular ejection fraction is 44% by Guzmna's biplane. There are segmental wall motion abnormalities [...] for comparison. See report for additional findings. [facility] 11/28/23 Coronary Angiography: Anatomically normal right [...] s/p a single 3.5 x 22 mm Boise Dewitt CRIS. - High grade distal LM and [...] triple vessel CAD s/p staged [place] in -03/2022 (with CRIS x1 to mid-RCA, CRIS x2 to ostial RCA, CRIS x1 to ostial LCX, and CRIS x1 to mid-LCX), severe s/p TAVR in 2021, baseline LBBB, HLD, HTN, Hodgkin lymphoma s/p radiation, CKD IIIb, bipolar disorder, COPD, and hypothyroidism on Hospital Day1 for high-risk NSTEMI. In [facility]- 11/28: Underwent cath yesterday, now s/p stent [...] RCA on 11/28/23. Pt planned for repeat [facility] to PCI L sided coronaries tmrw [...] Cardiopulmonary Resuscitation - Inpatient Disposition: Discharge Location: [facility] Basic Mobility Raw Score: 23 PT: OT: PCP Gaudencio Scales, Arlin Jackson MD 12/02/2023 * Jose Souza DO - 12/01/2023 8:46 AM EDT HOSPITALIST 1 - [facility] DAILY PROGRESS NOTE Page [phone] to reach a provider 11/04 Admit Date: 11/28/2023 Encounter Date December 01, 2023 Anticipated Discharge Date: 2023 Hospital Day: 3 Active Hospital Problems Diagnosis NSTEMI (non-ST elevated myocardial infarction) Resolved Hospital Problems No resolved problems to display. 24 Hour Events/Subjective: Transfer from [facility] on 11/29/23 -Pt doing well today, notes significant improvement in SOB and heaviness prev feeling on L side. Denies CP, palpitations, chest pressure, dizziness, edema -Understands plan for [facility] tmrw Medications: Scheduled Meds: metoproloL tartrate [...] Q4H COREY Continuous Infusions: heparin (porcine) infusion 400 Units/hr [...] with new LBBB (admission EKG, prior to [facility]) Telemetry: I have personally reviewed and [...] for comparison. See report for additional findings. [facility] 11/28/23 Coronary Angiography: Anatomically normal right [...] s/p a single 3.5 x 22 mm Boise Dewitt CRIS. - High grade distal LM and [...] triple vessel CAD s/p staged [place] in -03/20[place] (with CRIS x1 to mid-RCA, [...] for PCI to LM and LAD tomorrow, [facility] deferred today d/t cath schedule, stability of pt, and continuity of interventional specialist as Dr. Hargrove is on schedule for culture media laboratory assistant tomorrow. Will continue to hold diuretic today [...] RCA on 11/28/23. Pt planned for repeat [facility] to PCI L sided coronaries tmrw [...] chest pain protocol - NPO PM for [facility] tmrw of LAD and LCA #Acute HFmEF (EF 44%) Monitor for ONOFRE as last [facility] was on 11/28/23 - BNP 11,000 on admission - Diuresed with IV lasix in [facility] - Diuretics held yesterday and today given jonathan and plan for [facility] tmrw - Metoprolol 12.5 mg Q6H #JONATHAN on CKD3b- improving - Baseline Cr ~1.1-1.2 - Daily BMP - Diuretics held, LHC tmrw #Acute Hypoxic Respiratory Failure 2/2 Heart [...] PRN Diet: Daily Healthy Menu Choices/Cardiac diet ([facility]-Diet) NPO diet (Give Meds) DVT Prophylaxis: DOAC Code status: Attempt Cardiopulmonary Resuscitation - Inpatient Disposition: Discharge Location: [facility] Basic Mobility Raw Score: 23 PT: OT: PCP Gaudencio Scales DO [phone] Jose Souza DO 12/01/2023 * Jose Souza DO - 11/30/2023 5:07 PM EDT CV HOSPITALIST 1 - [facility] DAILY PROGRESS NOTE Page [phone] to reach a provider 11/04 Admit Date: 11/28/2023 Encounter Date November 30, 2023 Anticipated Discharge Date: 12/02/2023 Hospital Day: 2 Active Hospital Problems Diagnosis NSTEMI (non-ST elevated myocardial infarction) Resolved Hospital Problems No resolved problems to display. 24 Hour Events/Subjective: Transfer from [facility] on 11/29/23 -Pt doing well today, notes some SOB and heaviness feeling on L side but states its improved since arrival. Denies CP, palpitations, chest pressure, dizziness, edema -Understands plan for [facility] tmrw given kidney fx is reduced [...] -- 0.51 HA1C 5.3 -- Recent Labs 11/29/2326 CHLPL 139 TRIG 93 HDL 44 CHOLHDL 3.2 Recent Labs 11/30/23 1058 11/30/23 0743 11/30/23 0040 11/28/23 1622 11/28/23 1110 GLUCOSE -- -- 115 -- 151 POCGLU 143 118 -- 155 -- EKG: NSR with new LBBB (admission EKG, prior to [facility]) Telemetry: I have personally reviewed and interpreted the telemetry from the last 24 hours. Resultsshow NSR HR 80-90s. Imaging: No results found for this visit on 11/28/23 (from the past 24 hour(s)). TTE showed LVEF of 44% with RCA WMA, normal RV function, well functioning CoreValve TAVR, moderate MR [facility]- cardiac cath, found to have 90% [...] s/p a single 3.5 x 22 mm Boise Dewitt CRIS. - High grade distal LM and [...] triple vessel CAD s/p staged [place] in [place]03/[place] (with CRIS x1 to mid-RCA, [...] for CABG #HLD #Known LBBB at Baseline [facility] discussed CT findings with CT surgery to determine if she is an option for CABG, declined given porcelain aorta. TSH normal, A1C 5.3%, trops peaked around 1700 and downtrended. Pt planned for repeat C to PCI L sided coronaries tmrw if kidney fx improves. - Loaded with ASA 325 and Plavix 600 at OSH - EKG at OSH showed known LBBB, did not meet Sgarbossa criteria - Heparin gtt - Atorvastatin increased to 80 mg daily - ASA 81 mg - Plavix 75 mg - Nitro and EKG PRN per chest pain protocol - NPO PM for C tmrw of LAD and LCA #Acute HFmEF [...] PRN Diet: Daily Healthy Menu Choices/Cardiac diet ([facility]-Diet) NPO diet (Give Meds) DVT Prophylaxis: DOAC Code status: Attempt Cardiopulmonary Resuscitation - Inpatient Disposition: Discharge Location: [facility] Basic Mobility Raw Score: 23 PT: OT: PCP Gaudencio Scales DO [phone] Jose Souza DO 11/30/2023 * Marie Ho [...] 3:13 PM EDT CV HOSPITALIST 1 - [facility] DAILY PROGRESS NOTE Page [phone] to reach a provider 11/04 Admit Date: [...] chest pressure, dizziness, edema -Understands plan for [facility] tmrw Medications: Scheduled Meds: metoproloL tartrate [...] with new LBBB (admission EKG, prior to [facility]) Telemetry: I have personally reviewed and interpreted the telemetry from the last 24 hours. Resultsshow NSR HR 80-90s. Imaging: No results found for this visit on 11/28/23 (from the past 24 hour(s)). TTE showed LVEF of 44% with RCA WMA, normal RV function, well functioning CoreValve TAVR, moderate MR [facility]- cardiac cath, found to have 90% [...] s/p a single 3.5 x 22 mm Boise Dewitt CRIS. - High grade distal LM and [...] triple vessel CAD s/p staged [place] in [place]03[place] (with CRIS x1 to mid-RCA, [...] around 1700 and downtrendedPt planned for repeat [facility] to PCI L sided coronaries tmrw, - Loaded with ASA 325 and Plavix 600 at OSH - EKG at OSH showed known LBBB, did not meet Sgarbossa criteria - Heparin gtt - Atorvastatin increased to 80 mg daily - ASA 81 mg - Plavix 75 mg - Nitro and EKG PRN per chest pain protocol - NPO PM for C tmrw of LAD and LCA #Acute HFmEF [...] triple vessel CAD s/p staged [place] in [place]03[place] (with CRIS x1 to mid-RCA, [...] 11/28/231999 Patency/Maintenance infusing 11/28/231999 Phlebitis 0-->no symptoms 11/29/23 06 Infiltration 0-->no symptoms 11/29/23 06 Site Signs/Symptoms no redness;no swelling;no warmth;no pain 11/29/23 0600 PIV 11/28/23 1110 18 gauge median cubital vein (antecubital fossa), left (Active) Indication/Daily Review of Necessity fluid therapy intermittent 11/28/231999 Site Preparation/Maintenance dressing: dry and intact 11/29/23599 Securement catheter stabilization device, secured with 11/28/231999 Patency/Maintenance flushed without difficulty 11/28/231999 Phlebitis 0-->no symptoms 11/29/23 06 Infiltration 0-->no symptoms 11/29/23599 Site Signs/Symptoms no [...] Gas) No results found for: PHART, PO2ART, QBV8GIK, HLO6RZG Microbiology: Microbiology Results (Last 30 days) No results found for the last 720 hours. Imaging: Results for orders placed or performed during the hospital encounter of 11/28/23 XR Chest One View (Exam End: 11/28/2023 11:30 AM) Impression Interstitial edema and small pleural effusions I have personally reviewed the image(s) and the resident's interpretation and agree with the findings, Adnrew Khoury MD at 11/28/2023 2:04 PM Thank you for letting us participate in the care of this patient. If you are a health care provider and have any questions regarding this report, please contact the number below. For patients who have questions please contact the health home visit field care manager that requested your imaging first. Electronically signed by: Andrew Khoury MD, [facility] ([phone]), at 11/28/2023 2:04 PM Medications Scheduled Meds: [...] triple vessel CAD s/p staged [place] in (with CRIS x1 to mid-RCA, CRIS x2 to ostial RCA, CRIS x1 to ostial LCX, and CRIS x1 to mid-LCX), severe s/p TAVR in 2021, baseline LBBB, HLD, HTN, Hodgkin lymphoma s/p radiation, CKD IIIb, bipolar disorder, COPD, and hypothyroidism who presented to OSH with nausea and SOB and was transferred to [facility] for high-risk NSTEMI. 11/28: Underwent cath yesterday, [...] Valderrama MD, MPH Internal Medicine, PGY-1 Cardiology, [facility] 11/29/23 7:08 AM Cardiology Attending Note I [...] MD, FACP, FACC Section of Cardiovascular Medicine [facility] Gas Golf Cart Repairermanager client service [employer] [facility] This patient meets or has met medical [...] triple vessel CAD s/p staged PCI [place] in (with CRIS x1 to mid-RCA, CRIS x2 to ostial RCA, CRIS x1 to ostial LCX, and CRIS x1 to mid-LCX), severe s/p TAVR in 2021, baseline LBBB, HLD, HTN, Hodgkin lymphoma s/p radiation, CKD IIIb, bipolar disorder, COPD, and hypothyroidism who presented to OSH with nausea and SOB and was transferred to [facility] for high-risk NSTEMI. HPI: Oksana reports that [...] 20 mg daily. Oksana recently moved to [place] from [place], [place] at the end of August to be closer to family. She lives alone but lives next door to her brother. She has a PCP here and recently established with a lead coater (Evita Alejandro) in [facility]. She reportedly saw Dr. Alejandro within the [...] some point to avoid triple therapy. At [facility], she was hypoxic requiring initiation of BiPAP. ECG demonstrated LBBB, which is not new for her. ECG did not meet Sgarbossa criteria per [facility] financial services technician. Troponin was markedly elevated (6000s). Bedside POCUS showed LVEF 10-15%. Oksana was loaded with ASA, Plavix, and started on a heparin gtt. She was transferred to [facility] for high-risk NSTEMI. On arrival, Oksana reported [...] BID [Nov] aspirin 81 mg Oral Daily [NOV Hold] clopidogreL 75 mg Oral Daily [NOV Hold] atorvastatin 40 mg Oral Daily at Noon [Nov] baclofen 5 mg Oral BID [Nov] lamoTRIgine 100 mg Oral BID [Nov] levothyroxine 100 mcg Oral QAM [NOV Hold] pantoprazole EC 40 mg Oral Daily [NOV Hold] QUEtiapine 100 mg Oral Nightly [Nov] sodium chloride 0.9 % (flush), [NOV Hold] lidocaine, [NOV Hold] nitroGLYcerin, [NOV Hold] heparin (porcine) infusion AND [Nov] heparin (porcine), [NOV Hold] potassium chloride ER OR [Nov] potassium chloride ER, [NOV Hold] ondansetron, [NOV Hold] oxyCODONE-acetaminophen Vasoactive & Sedating Medications: Infusions: Continuous [...] and small pleural effusions Medications Scheduled Meds: [Nov] sodium chloride 0.9 % (flush) 5 mL Intravenous BID [NOV Hold] aspirin 81 mg Oral Daily [NOV Hold] clopidogreL 75 mg Oral Daily [NOV Hold] atorvastatin 40 mg Oral Daily at Noon [NOV Hold] baclofen 5 mg Oral BID [Nov] lamoTRIgine 100 mg Oral BID [Nov] levothyroxine 100 mcg Oral QAM [NOV Hold] pantoprazole EC 40 mg Oral Daily [Nov] QUEtiapine 100 mg Oral Nightly Continuous Infusions: [Nov] heparin (porcine) infusion Stopped (11/28/23 1520) PRN Meds:.[NOV Hold] sodium chloride 0.9 % (flush), [NOV Hold] lidocaine, [NOV Hold] nitroGLYcerin,[Nov] heparin (porcine) infusion AND [Nov] heparin (porcine), [NOV Hold] potassium chloride ER OR [NOV Hold] potassium chloride ER, [NOV Hold] ondansetron, [NOV Hold] oxyCODONE-acetaminophen Assessment & Plan: Oksana Betancourt is a 57 y.o. female with a history of triple vessel CAD s/p staged PCI in [place] in -03/2022 (with CRIS x1 to mid-RCA, CRIS x2 to ostial RCA, CRIS x1 to ostial LCX, and CRIS x1 to mid-LCX), severe s/p TAVR in 2021, baseline LBBB, HLD, HTN, Hodgkin lymphoma s/p radiation, CKD IIIb, bipolar disorder, COPD, and hypothyroidism who presented to OSH with nausea and SOB and was transferred to [facility] for high-risk NSTEMI. Plan for urgent LHC for NSTEMI. Given her known triple-vessel disease and multiple stents, this will likely be a very challenging intervention. It is possible that one of her stents has re-stenosed or thrombosed. 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 Will follow culture media laboratory assistant results and determine DAPT planning based upon findings. Continuing heparin gtt until culture media laboratory assistant. She is on isosorbide mononitrite and ranolazine [...] at OSH reportedly showed LVEF 10-15% - [facility] today - Heparin gtt - Atorvastatin 40 mg daily - DAPT pending culture media laboratory assistant findings - Likely ASA and ticagrelor based [...] have seen and examined the patient, providing parra components as outlined below. I have reviewed the resident???s above note; my evaluation of the patient is below: 57 y.o. female with a history of triple vessel CAD s/p staged PCI in [place] in - 03/2022 (with CRIS x1 tomid-RCA, CRIS x2 to ostial RCA, CRIS x1 to ostial LCX, and CRIS x1 to mid-LCX), severe s/p TAVR in 2021, baseline LBBB, HLD, HTN, Hodgkin lymphoma s/p radiation, CKD IIIb, bipolar disorder, COPD, andhypothyroidism who presented to OSH with nausea and SOB and was transferred to [facility] for high-risk NSTEMI. Cardiac catheterization LMCA: 90% [...] Appropriate) * Plan of Care - Lukas Dia RN - 12/02/2023 9:07 PM EDT Shift [...] as Appropriate) * Plan of Care - oJse Souza DO - 12/02/2023 7:51 PM EDT Post Cardiac cath note Oksana Schultz Asia [id number] 57 y.o. female Last value Range [...] A/P. S/p cath with no complications Jose Souza DO 12/02/2023 CV Hospitalist * Consult Note - Bhakti Virgen, KANDI - 12/01/2023 1:54 PM EDT Oksana Betancourt was seen today by Cardiac Rehabilitation for: NSTEMI, staged, PCI Activity evaluation - Patient on heparin gtt. Going back to culture media laboratory assistant tomorrow. Has done some light walking in [...] in an outpatient cardiac rehabilitation program at [facility] was discussed. Patient agrees to a referral [...] Admitted From: Transfer from another hospital Location: [facility] Reason for Hospitalization: heart attack Past medical History: No past medical history on file. Hospitalizations Within the Past 30 Days: no previous admission in last 30 days Current Decision-Making Capacity: Self If AD's have not been completed the following surrogate would be surrogate decision maker per [place] decision making law. (Only good for 180 days) Any patient receiving care in [place] must abide by [place] law. The hierarchy for surrogate decision making [...] (i) The agent with financial power of assistant city attorney or a conservator appointed in accordance [...] have you lived?: 2 (previously lived in [place], has been in current apartment for 3 monhts) In the last 12 months, was there a time when you did not have a steady place to sleep or slept in [facility] (including now)?: No In the past 12 months has the electric, gas, oil, or water [employer] threatened to shut off services in your [...] raised toilet seat Home Address confirmed as: [address] [place] [address] [address] [facility] [address] Social & Family Supports: All names listed [...] and [employer]) Preferred Pharmacy: No Pharmacies Listed [place] Status: Patient is a : No Primary Care Provider [facility] [address], [place] [address] Patient/Caregiver Goals of Treatment: home when MR [...] Operative Note Patient Name: Oksana Betancourt : [id number] MR#: [id number] Case Date: 11/28/2023 Surgeon: Surgeon(s) and Role: * Ryder Hargrove MD - Primary * Faustino Hernández MD - Fellow - Assisting Preoperative diagnosis: NSTEMI Postoperative diagnosis: NSTEMI Preliminary Cardiac Catheterization Procedure Note: Procedure(s) performed: Right Radial Access - 6 Slender - Right Femoral Access ultrasound guided - 6 [place] Coronary Angiography Left Heart Cath PCI-Stent IVUS [...] a single 3.5 x 22 mm Clinton Dewitt CRIS. - High grade distal LM and [...] EVALUATION NOTE: OUTCOME SUMMARY: Pt admitted from [facility]. A&O upon arrival. C/o SOB, placed on bipap. Heparin gtt maintained. Diuresed with IVP lasix (see eMAR). Sent to culture media laboratory assistant in afternoon. PLAN MOVING FORWARD: NPO @ [place] for cath * Plan of Care - [...] last 7068 hours. Previous Catheterization Performed in [place]. She reports 5 stents placed previously. The [...] C/I to long-term DAPT Moderate Sedation [place] Raiz Fox MD 11/28/2023 documented in this encounter Plan of Treatment Upcoming Encounters Date Type Department Care Team (Latest Contact Info) Description 07/30/2024 8:40 AM EST Hospital En[place] [address] Jr Fulton MD [facility] [address] [place] [address] 07/30/2024 8:45 AM EST Appointment [place] [phone] Jr Fulton MD [facility] [address] [place] [address] 07/30/2024 9:20 AM EST Hospital Encounter [place] [phone] Jr Fulton MD [facility] [place] [address] 07/30/2024 10:51 AM EST Hospital Encounter Outpatient [place] [phone] Jr Fulton MD [facility] [place] [address] 07/30/2024 10:51 AM EST Anesthesia Event [facility] [address] Megan [place]ron[place] [address] 07/30/2024 10:51 AM EST - 07/30/2024 1:11 PM EST Surgery Outpatient [place] [address] Jr Fulton MD [facility] [place] [address] MASTECTOMY PARTIAL (WRVU 10.13) 08/22/2024 2:00 PM EST Office [place] [address] Cindy Pierce APRN [facility] [place] [address] 08/22/2024 3:00 PM EST Office Visit Hematology and Oncology at [place] [phone] Soo Lyn MD [facility] [place] [address] 08/27/2024 9:30 AM EST Scheduled View Only Radiation Oncology at [address] [phone] St Josr Whitley 08/27/2024 10:00 AM EST Office Visit Radiation Oncology at [address] [phone] Paradise Prado MD [facility] [place] [address] 2024 1:00 PM EDT Office Visit Cardiology at [address] [place] [address] Ham Montenegro MD [facility] [place] [address] Scheduled Orders Name Type Priority Associated Diagnoses [...] 2:43 AM EDT) Neutrophil % 46.0 % [facility] Neutrophil Absolute 4.20 1.70 - 6.10 x10(3)/mc L [facility] Lymph % 40.9 % [facility] Lymphocytes Abs 3.7(H) 0.9 - 3.2 x10(3)/mc L [facility] Monocyte % 8.2 % [facility] Monocyte Abs 0.8 0.3 - 0.9 x10(3)/mc L [facility] Eos % 4.3 % [facility] Eosinophils Abs 0.4 0.0 - 0.4 x10(3)/mc L [facility] Basophil % 0.2 % [facility] Baso Absolute 0.0 0.0 - 0.1 x10(3)/mc L [facility] Immature Gran % 0.40 % [facility] Comment: Immature granulocytes(IG's)percentage and absolute count will include metamyelocytes, myelocytes, and promyelocytes. Blood smears from CBCs yielding IG's will be scanned manually for concordance. If this scan disagrees with the automated IG or if promyelocytes are noted, a manual differential will be performed. Immature Gran Absolute 0.04 0.00 - 0.04 x10(3)/mc L [facility] Blood 12/04/2023 2:43 AM EDT 12/04/2023 3:15 AM EDT Narrative Resulting Agency Comment Spec In Lab Corinne Saba MD HEMATOLOGY ORDERAB LES Performing Organization Address City/[facility]/ZIP Co de Phone Number [facility] [place] [address] * (ABNORMAL) Hemogram (12/04/2023 2:43 AM EDT) White Blood Cell 9.1 4.0 - 9.5 x10(3)/mc L [facility] Red Blood Cell 3.29(L) 4.00 - 5.21 x10(6)/[facility] [address] [facility] Hemoglobin 10.0(L) 11.7 - 15.5 g/dL [facility] Hematocrit 31.3(L) 35.7 - 45.8 % [facility] Mean Cell Volume 95.1(H) 82.6 - 94.4 fL [facility] Mean Cell Hemoglobin 30.4 27.1 - 32.0 pg [facility] Mean Cell Hemoglobin Concentration 31.9 31.7 - 35.0 g/dL [facility] Platelet 377(H) 145 - 357 x10(3)/mc L [facility] RDW Standard Deviation 53.5(H) 37.0 - 46.0 fL [facility] RDW coefficient of variation 15.3(H) 11.5 - 14.1 % [facility] Mean Platelet Volume 11.5 7.6 - 12.9 fL [facility] NRBC% auto 0.0 % [facility] NRBC Absolute 0.000 0.000 - 0.000 x10(3)/mc L [facility] Blood 12/04/2023 2:43 AM EDT 12/04/2023 3:15 AM EDT Narrative Resulting Agency Comment Spec In Lab Corinne Saba MD HEMATOLOGY ORDERAB LES Performing Organization Address City/[facility]/ZIP Co de Phone Number [facility] [address] * (ABNORMAL) Basic Metabolic Panel (non-fasting) (12/04/2023 2:43 AM EDT) Glucose 120 65 - 199 mg/dL [facility] Comment:Diabetes: >=200 mg/d L plus symptoms Blood Urea Nitrogen 13 8 - 18 mg/dL [facility] Creatinine 1.36(H) 0.70 - 1.20 mg/dL [facility] Sodium 142 135 - 145 mmol/L [facility] Potassium 4.6 3.5 - 5.0 mmol/L [facility] Comment: Please note: ??Patients with WBC >100,000 may have falsely elevated Potassium levels. ??For accurate Potassium quantification in these patients send serum separator tube (gold top) for subsequent determinations. ??Contact the Clinical Chemistry Laboratory if there are any questions. Chloride 105 98 - 107 mmol/L [facility] Carbon Dioxide 27 22 - 31 mmol/L [facility] Anion Gap 10 5 - 15 mmol/L [facility] Calcium 9.5 8.5 - 10.5 mg/dL [facility] Est Glomerular Filtration Rate 45(L) >=60 mL/min/1. 73 m?? [facility] Comment: This patient's estimated GFR was [...] MD CHEMISTRY ORDER LAKEISHA Performing Organization Address City/[facility]/ZIP Co de Phone Number [facility] [address] * Magnesium (12/04/2023 2:43 AM EDT) Pathologist [facility] Magnesium 0.99 0.69 - 1.07 mmol/L [facility] Blood 12/04/2023 2:43 AM EDT 12/04/2023 3:15 AM EDT Narrative Resulting Agency Comment Spec In Lab Emory Ross MD CHEMISTRY ORDER LAKEISHA Performing Organization Address City/[facility]/ZIP Co de Phone Number [facility] [address] * (ABNORMAL) Phosphorus (12/04/2023 2:43 AM EDT) Pathologist [facility] Phosphorus 5.2(H) 2.5 - 4.5 mg/dL [facility] Blood 12/04/2023 2:43 AM EDT 12/04/2023 3:15 AM EDT Narrative Resulting Agency Comment Spec In Lab Emory Ross MD CHEMISTRY ORDER LAKEISHA Performing Organization Address City/[facility] Co de Phone Number [facility] [address] * (ABNORMAL) Differential, Automated (2023 3:53 AM EDT) Pathologist [facility] Neutrophil % 60.6 % [facility] Neutrophil Absolute 6.57(H) 1.70 - 6.10 x10(3)/mc L [facility] Lymph % 29.2 % [facility] Lymphocytes Abs 3.2 0.9 - 3.2 x10(3)/mc L [facility] Monocyte % 6.7 % [facility] Monocyte Abs 0.7 0.3 - 0.9 x10(3)/mc L [facility] Eos % 3.0 % [facility] Eosinophils Abs 0.3 0.0 - 0.4 x10(3)/mc L [facility] Basophil % 0.2 % [facility] Baso Absolute 0.0 0.0 - 0.1 x10(3)/mc L [facility] Immature Gran % 0.30 % [facility] Comment: Immature granulocytes(IG's)percentage and absolute count will include metamyelocytes, myelocytes, and promyelocytes. Blood smears from CBCs yielding IG's will be scanned manually for concordance. If this scan disagrees with the automated IG or if promyelocytes are noted, a manual differential will be performed. Immature Gran Absolute 0.03 0.00 - 0.04 x10(3)/mc L [facility] Blood 2023 3:53 AM EDT 2023 4:04 AM EDT Narrative Resulting Agency Comment Spec In Lab Corinne Saba MD HEMATOLOGY ORDERAB LES [facility] [place] [address] * (ABNORMAL) Hemogram (2023 3:53 AM EDT) White Blood Cell 10.8(H) 4.0 - 9.5 x10(3)/mc L [facility] Red Blood Cell 3.43(L) 4.00 - 5.21 x10(6)/mc L [facility] Hemoglobin 10.4(L) 11.7 - 15.5 g/dL [facility] Hematocrit 32.7(L) 35.7 - 45.8 % [facility] Mean Cell Volume 95.3(H) 82.6 - 94.4 fL [facility] Mean Cell Hemoglobin 30.3 27.1 - 32.0 pg [facility] Mean Cell Hemoglobin Concentration 31.8 31.7 - 35.0 g/dL [facility] Platelet 367(H) 145 - 357 x10(3)/mc L [facility] RDW Standard Deviation 53.4(H) 37.0 - 46.0 fL [facility] RDW coefficient of variation 15.2(H) 11.5 - 14.1 % [facility] Mean Platelet Volume 11.8 7.6 - 12.9 fL [facility] NRBC% auto 0.0 % [facility] NRBC Absolute 0.000 0.000 - 0.000 x10(3)/mc L [facility] Blood 2023 3:53 AM EDT 2023 4:04 AM EDT Narrative Resulting Agency Comment Spec In Lab Corinne Saba MD HEMATOLOGY ORDERAB LES [facility] [place] [address] * (ABNORMAL) Basic Metabolic Panel (non-fasting) (2023 3:53 AM EDT) Glucose 99 65 - 199 mg/dL [facility] Comment:Diabetes: >=200 mg/d L plus symptoms Blood Urea Nitrogen 14 8 - 18 mg/dL [facility] Creatinine 1.26(H) 0.70 - 1.20 mg/dL [facility] Sodium 139 135 - 145 mmol/L [facility] Potassium 3.8 3.5 - 5.0 mmol/L [facility] Comment: Please note: ??Patients with WBC >100,000 may have falsely elevated Potassium levels. ??For accurate Potassium quantification in these patients send serum separator tube (gold top) for subsequent determinations. ??Contact the Clinical Chemistry Laboratory if there are any questions. Chloride 102 98 - 107 mmol/L [facility] Carbon Dioxide 24 22 - 31 mmol/L [facility] Anion Gap 13 5 - 15 mmol/L [facility] Calcium 9.2 8.5 - 10.5 mg/dL [facility] Est Glomerular Filtration Rate 49(L) >=60 mL/min/1. 73 m?? [facility] Comment: This patient's estimated GFR was [...] CHEMISTRY ORDER LAKEISHA [facility] [place] [address] * Magnesium (2023 3:53 AM EDT) Magnesium 0.90 0.69 - 1.07 mmol/L [facility] Blood 2023 3:53 AM EDT 2023 4:04 AM EDT Narrative Resulting Agency Comment Spec In Lab Emory Ross MD CHEMISTRY ORDER LAKEISHA Performing Organization Address City/[facility] Co de Phone Number [facility] [address] * Phosphorus (2023 3:53 AM EDT) Phosphorus 4.5 2.5 - 4.5 mg/dL [facility] Blood 2023 3:53 AM EDT 2023 4:04 AM EDT Narrative Resulting Agency Comment Spec In Lab Emory Ross MD CHEMISTRY ORDER LAKEISHA Performing Organization Address City/[facility] Co de Phone Number [facility] [address] * EKG 12 Lead (12/02/2023 12:46 PM EDT) Ventricular rate 88 BPM MUSE SYSTEM Atrial Rate 88 BPM MUSE SYSTEM P-R Interval 136 ms MUSE SYSTEM QRS Duration 138 ms MUSE SYSTEM Q-T Interval 414 ms MUSE SYSTEM QTC Calculated (Bezet) 500 ms MUSE SYSTEM Calculated P [place] 67 degrees MUSE SYSTEM Calculated R [place] 39 degrees MUSE SYSTEM Calculated T Quin[place] 71 degrees MUSE SYSTEM INTERPRETATION Normal sinus rhythm Possible Left atrial enlargement Left bundle branch block Abnormal ECG When compared with ECG of 28-NOV-2023 17:50, No significant change was found Confirmed by Solo Rausch ([id number]) on 12/06/2023 7:52:33 PM MUSE SYSTEM 12/02/2023 12:4 6 PM EDT 12/06/2023 7:52 PM EDT Arlin Jackson MD ECG ORDERABLES MUSE SYSTEM * CARDIAC CATHETERIZATION (12/02/2023 12:28 PM EDT) Anatomical Region Laterality Modality Other Narrative 12/02/2023 10:12 PM EDT ?[facility] ? Cardiac Catheterization/Intervention Report ? Patient Name: Asia, Oksana A. ? Procedure Date: 12/02/2023 ? A #: [id number] ? Primary Physician: Beena, Ryder S ? Case #: [id number] ? File Name: [id number] ? Catheterization Order Number: [id number] ? [facility] ? Final Report [place], [place] ? Patient Name: ? Oksana A. Asia ?ID#: ?[id number] ? : ?1965 ? Procedure Date: ? December 02, 2023 ? Case #: ? [id number] ? Room: ? 5 ? Case Physician: ? Ryder Hargrove M.D. ? Start: ?11:26 ?Fellow: ? Faustino [...] was designated as ASA Class ?III. The [facility] clinical frailty scale is 5: Mildly Frail. ? Diagnostic Tests: ?Prior Coronary Angiography: ? LV ejection fraction within 6 months is 44%. ?Electrocardiography: ? EKG was assessed by ECG. EKG was Normal. ?Medications Prior to Procedure: ? Ranolazine, Aspirin, Beta Krystal, Long Acting Nitrate and Statin. ? Indications for Diagnostic Cath: ?The priority of the diagnostic procedure was Urgent. The indication for ?the culture media laboratory assistant visit is ACS greater than 24 hrs. [...] A premounted 3.50 x 12 mm Clinton Dewitt (CRIS) was deployed ? with a maximum [...] dose administered prior to arrival in the culture media laboratory assistant. ?Recommended anti-platelet/anti-thrombotic regimen: ?Continue aspirin 81 mg [...] may require ?modification of this regimen. Consult [facility] Interventional Cardiology for ?questions. ? Conclusions: ?* [...] PCI of the LM/LAD/LCX bifurcation. A 6 romanian EBU 3.0 ?guide was used to engage [...] placed a 3.5 x 12 mm Clinton Dewitt CRIS to the LAD landing just ?proximal [...] vascular ?closure device and angioplasty-coronary. ? Ryder S Beena, M.D. ? Electronically Signed by: Ryder Hargrove, M.D. ? Report Finalized: 12/02/2023 ??13:15 ? Report Last Ammended: 01/25/2024 ??13:15 ? Procedure Note Ryder Hargrove MD - 01/25/2024 [facility] Cardiac Catheterization/Intervention Report Patient Name: Oksana Betancourt Procedure Date: 12/02/2023 A #: [id number] Primary Physician: Ryder Hargrove Case #: [id number] File Name: [id number] Catheterization Order Number: [id number] [facility] FinalReport [place], [place] Patient Name: Oksana Betancourt ID#:[id number] :1965 Procedure Date: December 02, 2023 Case [...] patient was designated as ASAClass III. The [facility] clinical frailty scale is 5: Mildly Frail. Diagnostic Tests: Prior Coronary Angiography: LV ejection fraction within 6 months is 44%. Electrocardiography: EKG was assessed by ECG. EKG was Normal. Medications Prior to Procedure: Ranolazine, Aspirin, Beta Krystal, Long Acting Nitrate andStatin. Indications for Diagnostic Cath: The priority of the diagnostic procedure was Urgent. The indicationfor the culture media laboratory assistant visit is ACS greater than 24 hrs. [...] The lesion was predilated with a 2.50mm [id number] MM balloon with a maximum inflation pressure of 12atmospheres. A premounted 3.50 x 12 mm Clinton Dewitt (CRIS) wasdeployed with a maximum inflation pressure [...] dose administered prior to arrival in the culture media laboratory assistant. Recommended anti-platelet/anti-thrombotic regimen: Continue aspirin 81 mg daily for 1 month then stop. Restart ennncwk72 mg daily in 12 months and continue unless contraindicated. Continue clopidogrel 75 mg daily for 12 months then stop. Continue apixaban 5 mg twice daily for indefinitely. These recommendations are made at the time of the intervention.Patient and provider preferences or a changing clinical situation mayrequire modification of this regimen. Consult [facility] Interventional Cardiologyfor questions. Conclusions: * Obstructive disease [...] PCI of the LM/LAD/LCX bifurcation. A 6 romanian EBU3.0 guide was used to engage the LM through the Evolut valve frame. TheLAD And LCX were wired with workhorse wires. The LAD was pre-dilated andIVUS was performed to the LCX and LAD which showed stents in the LCXostial vessel to mid vessel with a small area of unstented area between the stents. We placed a 3.5 x 12 mm [place] Dewitt CRIS to the LAD landingjust proximal to [...] the sedation nurse. Case time =00:57. Dr. yRder Hargrove M.D. performed the coronary angiography, stent insertion-coronary, IVUS # coronary, access site angiography, vascular closure device and angioplasty-coronary. Ryder Hargrove M.D. Electronically Signed by: Ryder Hargrove M.D. Report Finalized: 12/02/2023 13:15 Report Last Ammended: 01/25/2024 13:15 Ryder Hargrove MD CARDIAC CATH ORDERAB LES * (ABNORMAL) Differential, Automated (12/02/2023 3:09 AM EDT) Neutrophil % 51.4 % [facility] Neutrophil Absolute 5.53 1.70 - 6.10 x10(3)/mc L [facility] Lymph % 37.4 % [facility] Lymphocytes Abs 4.0(H) 0.9 - 3.2 x10(3)/[facility] [address] [facility] Monocyte % 8.6 % [facility] Monocyte Abs 0.9 0.3 - 0.9 x10(3)/[facility] [address] LAB[facility] Eos % 2.0 % [facility] Eosinophils Abs 0.2 0.0 - 0.4 x10(3)/[facility] [address] [facility] Basophil % 0.3 % [facility] Baso Absolute 0.0 0.0 - 0.1 x10(3)/mc L [facility] Immature Gran % 0.30 % [facility] Comment: Immature granulocytes(IG's)percentage and absolute count will include metamyelocytes, myelocytes, and promyelocytes. Blood smears from CBCs yielding IG's will be scanned manually for concordance. If this scan disagrees with the automated IG or if promyelocytes are noted, a manual differential will be performed. Immature Gran Absolute 0.03 0.00 - 0.04 x10(3)/mc L [facility] Blood 12/02/2023 3:09 AM EDT 12/02/2023 3:44 AM EDT Narrative Resulting Agency Comment Spec In Lab Corinne Saba MD HEMATOLOGY ORDERAB LES [facility] [place] [address] * (ABNORMAL) Hemogram (12/02/2023 3:09 AM EDT) White Blood Cell 10.8(H) 4.0 - 9.5 x10(3)/mc L [facility] Red Blood Cell 3.29(L) 4.00 - 5.21 x10(6)/mc L [facility] Hemoglobin 10.1(L) 11.7 - 15.5 g/dL [facility] Hematocrit 31.3(L) 35.7 - 45.8 % [facility] Mean Cell Volume 95.1(H) 82.6 - 94.4 fL [facility] Mean Cell Hemoglobin 30.7 27.1 - 32.0 pg [facility] Mean Cell Hemoglobin Concentration 32.3 31.7 - 35.0 g/dL [facility] Platelet 316 145 - 357 x10(3)/mc L [facility] RDW Standard Deviation 52.9(H) 37.0 - 46.0 fL [facility] RDW coefficient of variation 15.0(H) 11.5 - 14.1 % [facility] Mean Platelet Volume 11.8 7.6 - 12.9 fL [facility] NRBC% auto 0.0 % [facility] NRBC Absolute 0.000 0.000 - 0.000 x10(3)/mc L [facility] Blood 12/02/2023 3:09 AM EDT 12/02/2023 3:44 AM EDT Narrative Resulting Agency Comment Spec In Lab Corinne Saba MD [place]EM[place] [address] * Heparin (unfractionated) Level (12/02/2023 3:09 AM EDT) UF Heparin 0.31 IU/mL [facility] Comment: Heparin (anti-Xa) levels should [...] HEMATOLOGY CHASE GUTIERREZ [facility] [place] [address] * (ABNORMAL) Basic Metabolic Panel (non-fasting) (12/02/2023 3:09 AM EDT) Glucose 95 65 - 199 mg/dL [facility] Comment:Diabetes: >=200 mg/d L plus symptoms Blood Urea Nitrogen 16 8 - 18 mg/dL [facility] Creatinine 1.25(H) 0.70 - 1.20 mg/dL [facility] Sodium 141 135 - 145 mmol/L [facility] Potassium 3.9 3.5 - 5.0 mmol/L [facility] Comment: Please note: ??Patients with WBC >100,000 may have falsely elevated Potassium levels. ??For accurate Potassium quantification in these patients send serum separator tube (gold top) for subsequent determinations. ??Contact the Clinical Chemistry Laboratory if there are any questions. Chloride 105 98 - 107 mmol/L [facility] Carbon Dioxide 25 22 - 31 mmol/L [facility] Anion Gap 11 5 - 15 mmol/L [facility] Calcium 9.3 8.5 - 10.5 mg/dL [facility] Est Glomerular Filtration Rate 50(L) >=60 mL/min/1. 73 m?? [facility] Comment: This patient's estimated GFR [...] MD CHEMISTRY ORDER LAKEISHA Performing Organization Address City/[facility]/ZIP Co de Phone Number [facility] [place] [address] * Magnesium (12/02/2023 3:09 AM EDT) Magnesium 0.95 0.69 - 1.07 mmol/L [facility] Blood 12/02/2023 3:09 AM EDT 12/02/2023 3:44 AM EDT Narrative Resulting Agency Comment Spec In Lab Emory Ross MD CHEMISTRY ORDER LAKEISHA Performing Organization Address City/[facility] Co de Phone Number [facility] [place] [address] * Phosphorus (12/02/2023 3:09 AM EDT) Phosphorus 4.1 2.5 - 4.5 mg/dL [facility] Blood 12/02/2023 3:09 AM EDT 12/02/2023 3:44 AM EDT Narrative Resulting Agency Comment Spec In Lab Emory Ross MD CHEMISTRY ORDER LAKEISHA Performing Organization Address City/[facility]/ZIP Co de Phone Number [facility] [place] [address] * Heparin (unfractionated) Level (12/01/2023 8:55 PM EDT) UF Heparin 0.34 IU/mL [facility] Comment: Heparin (anti-Xa) levels should [...] MD HEMATOLOGY ORDSamir GUTIERREZ Performing Organization Address City/[facility] Co de Phone Number [facility] [place] [address] * Heparin (unfractionated) Level (12/01/2023 2:12 PM EDT) UF Heparin 0.25 IU/mL [facility] Comment: Heparin (anti-Xa) [...] HEMATOLOGY ORDSamir GUTIERREZ [facility] [place] [address] * Heparin (unfractionated) Level (12/01/2023 8:11 AM EDT) Pathologist [facility] UF Heparin 0.25 IU/mL [facility] Comment: Heparin (anti-Xa) levels [...] Spec In Lab Emory Ross MD HEMATOLOGY [place] [address] * (ABNORMAL) Differential, Automated (12/01/2023 4:42 AM EDT) [facility] Neutrophil % 56.4 % [facility] Neutrophil Absolute 5.69 1.70 - 6.10 x10(3)/mc L [facility] Lymph % 35.0 % [facility] Lymphocytes Abs 3.5(H) 0.9 - 3.2 x10(3)/mc L [facility] Monocyte % 7.4 % [facility] Monocyte Abs 0.8 0.3 - 0.9 x10(3)/mc L [facility] Eos % 0.6 % [facility] Eosinophils Abs 0.1 0.0 - 0.4 x10(3)/mc L [facility] Basophil % 0.3 % [facility] Baso Absolute 0.0 0.0 - 0.1 x10(3)/mc L [facility] Immature Gran % 0.30 % [facility] Comment: Immature granulocytes(IG's)percentage and absolute count will include metamyelocytes, myelocytes, and promyelocytes. Blood smears from CBCs yielding IG's will be scanned manually for concordance. If this scan disagrees with the automated IG or if promyelocytes are noted, a manual differential will be performed. Immature Gran Absolute 0.03 0.00 - 0.04 x10(3)/mc L [facility] Blood 12/01/2023 4:42 AM EDT 12/01/2023 5:13 AM EDT Narrative Resulting Agency Comment Spec In Lab Corinne Saba MD HEMATOLOGY ORDERAB LES Performing Organization Address City/State/[facility] Co de Phone Number [facility] [address] * (ABNORMAL) Hemogram (12/01/2023 4:42 AM EDT) White Blood Cell 10.1(H) 4.0 - 9.5 x10(3)/mc L [facility] Red Blood Cell 3.30(L) 4.00 - 5.21 x10(6)/ L [facility] Hemoglobin 10.1(L) 11.7 - 15.5 g/dL [facility] Hematocrit 31.8(L) 35.7 - 45.8 % [facility] Mean Cell Volume 96.4(H) 82.6 - 94.4 fL [facility] Mean Cell Hemoglobin 30.6 27.1 - 32.0 pg [facility] Mean Cell Hemoglobin Concentration 31.8 31.7 - 35.0 g/dL [facility] Platelet 258 145 - 357 x10(3)/mc L [facility] RDW Standard Deviation 54.9(H) 37.0 - 46.0 fL [facility] RDW coefficient of variation 15.4(H) 11.5 - 14.1 % [facility] Mean Platelet Volume 12.8 7.6 - 12.9 fL [facility] NRBC% auto 0.3 % [facility] NRBC Absolute 0.030(H) 0.000 - 0.000 x10(3)/mc L [facility] Blood 12/01/2023 4:42 AM EDT 12/01/2023 5:13 AM EDT Narrative Resulting Agency Comment Spec In Lab Corinne Saba MD HEMATOLOGY ORDERAB LES [facility] [place] [address] * (ABNORMAL) Basic Metabolic Panel (non-fasting) (12/01/2023 4:42 AM EDT) Glucose 103 65 - 199 mg/dL [facility] Comment:Diabetes: >=200 mg/d L plus symptoms Blood Urea Nitrogen 19(H) 8 - 18 mg/dL [facility] Creatinine 1.20 0.70 - 1.20 mg/dL [facility] Sodium 138 135 - 145 mmol/L [facility] Potassium 3.9 3.5 - 5.0 mmol/L [facility] Comment: Please note: ??Patients with WBC >100,000 may have falsely elevated Potassium levels. ??For accurate Potassium quantification in these patients send serum separator tube (gold top) for subsequent determinations. ??Contact the Clinical Chemistry Laboratory if there are any questions. Chloride 104 98 - 107 mmol/L [facility] Carbon Dioxide 25 22 - 31 mmol/L [facility] Anion Gap 9 5 - 15 mmol/L [facility] Calcium 8.6 8.5 - 10.5 mg/dL [facility] Est Glomerular Filtration Rate 52(L) >=60 mL/min/1. 73 m?? [facility] Comment: This patient's estimated GFR was [...] CHEMISTRY ORDER LAKEISHA [facility] [place] [address] * Magnesium (12/01/2023 4:42 AM EDT) Magnesium 0.93 0.69 - 1.07 mmol/L [facility] Blood 12/01/2023 4:42 AM EDT 12/01/2023 5:13 AM EDT Narrative Resulting Agency Comment Spec In Lab Emory Ross MD CHEMISTRY ORDER LAKEISHA Performing Organization Address City/[facility] Co de Phone Number [facility] [address] * Phosphorus (12/01/2023 4:42 AM EDT) Phosphorus 3.2 2.5 - 4.5 mg/dL [facility] Blood 12/01/2023 4:42 AM EDT 12/01/2023 5:13 AM EDT Narrative Resulting Agency Comment Spec In Lab Emory Ross MD CHEMISTRY ORDER LAKEISHA Performing Organization Address City/[facility] Co de Phone Number [facility] [address] * POCT Glucose (11/30/2023 10:58 AM EDT) Glucose, POC 143 65 - 199 mg/dL [facility] Comment: Supplemental ranges: <140 mg/dL before meals <180 mg/dL all other times of the day Blood 11/30/2023 10:5 8 AM EDT 11/30/2023 10:58 AM EDT Jose Jay DO POINT OF CARE TEST ORDERABLES [facility] [place] [address] * POCT Glucose (11/30/2023 7:43 AM EDT) [facility] Glucose, POC 118 65 - 199 mg/dL [facility] Comment: Supplemental ranges: <140 mg/dL before meals <180 mg/dL all other times of the day Blood 11/30/2023 7:43 AM EDT 11/30/2023 7:43 AM EDT Jose Jay DO POINT OF CARE TEST ORDERABLES Performing Organization Address [facility] Co de Phone Number [facility] [address] * Heparin (unfractionated) Level (11/30/2023 5:50 AM EDT) [facility] UF Heparin 0.55 IU/mL [facility] Comment: Heparin (anti-Xa) levels [...] HEMATOLOGY CHASE GUTIERREZ [facility] [place] [address] * (ABNORMAL) Differential, Automated (11/30/2023 12:40 AM EDT) [facility] Neutrophil % 74.1 % [facility] Neutrophil Absolute 12.54(H) 1.70 - 6.10 x10(3)/mc L [facility] Lymph % 20.0 % [facility] Lymphocytes Abs 3.4(H) 0.9 - 3.2 x10(3)/mc L [facility] Monocyte % 5.2 % [facility] Monocyte Abs 0.9 0.3 - 0.9 x10(3)/ L [facility] Eos % 0.1 % [facility] Eosinophils Abs 0.0 0.0 - 0.4 x10(3)/ L [facility] Basophil % 0.1 % [facility] Baso Absolute 0.0 0.0 - 0.1 x10(3)/ L [facility] Immature Gran % 0.50 % [facility] Comment: Immature granulocytes(IG's)percentage and absolute count will include metamyelocytes, myelocytes, and promyelocytes. Blood smears from CBCs yielding IG's will be scanned manually for concordance. If this scan disagrees with the automated IG or if promyelocytes are noted, a manual differential will be performed. Immature Gran Absolute 0.09(H) 0.00 - 0.04 x10(3)/ L [facility] Blood 11/30/2023 12:4 0 AM EDT 11/30/2023 12:48 AM EDT Narrative Resulting Agency Comment Spec In Lab Corinne Saba MD HEMATOLOGY ORDERAB LES Performing Organization Address City/State/[facility] Co de Phone Number [facility] [place] [address] * (ABNORMAL) Hemogram (11/30/2023 12:40 AM EDT) White Blood Cell 16.9(H) 4.0 - 9.5 x10(3)/ L [facility] Red Blood Cell 3.09(L) 4.00 - 5.21 x10(6)/mc L [facility] Hemoglobin 9.6(L) 11.7 - 15.5 g/dL [facility] Hematocrit 30.1(L) 35.7 - 45.8 % [facility] Mean Cell Volume 97.4(H) 82.6 - 94.4 fL [facility] Mean Cell Hemoglobin 31.1 27.1 - 32.0 pg [facility] Mean Cell Hemoglobin Concentration 31.9 31.7 - 35.0 g/dL [facility] Platelet 281 145 - 357 x10(3)/mc L [facility] RDW Standard Deviation 55.5(H) 37.0 - 46.0 fL [facility] RDW coefficient of variation 15.5(H) 11.5 - 14.1 % [facility] Mean Platelet Volume 12.3 7.6 - 12.9 fL [facility] NRBC% auto 0.0 % [facility] NRBC Absolute 0.000 0.000 - 0.000 x10(3)/mc L [facility] Blood 11/30/2023 12:4 0 AM EDT 11/30/2023 12:48 AM EDT Narrative Resulting Agency Comment Spec In Lab Corinne Saba MD HEMATOLOGY ORDERAB LES [facility] [place] [address] * (ABNORMAL) Basic Metabolic Panel (non-fasting) (11/30/2023 12:40 AM EDT) Glucose 115 65 - 199 mg/dL [facility] Comment:Diabetes: >=200 mg/d L plus symptoms Blood Urea Nitrogen 25(H) 8 - 18 mg/dL [facility] Creatinine 1.65(H) 0.70 - 1.20 mg/dL [facility] Sodium 141 135 - 145 mmol/L [facility] Potassium 4.0 3.5 - 5.0 mmol/L [facility] Comment: Please note: ??Patients with WBC >100,000 may have falsely elevated Potassium levels. ??For accurate Potassium quantification in these patients send serum separator tube (gold top) for subsequent determinations. ??Contact the Clinical Chemistry Laboratory if there are any questions. Chloride 106 98 - 107 mmol/L [facility] Carbon Dioxide 26 22 - 31 mmol/L [facility] Anion Gap 9 5 - 15 mmol/L [facility] Calcium 8.7 8.5 - 10.5 mg/dL [facility] Est Glomerular Filtration Rate 36(L) >=60 mL/min/1. 73 m?? [facility] Comment: This patient's estimated GFR was [...] MD CHEMISTRY ORDER LAKEISHA Performing Organization Address City/[facility]/ZIP Co de Phone Number [facility] [address] * Magnesium (11/30/2023 12:40 AM EDT) Magnesium 0.94 0.69 - 1.07 mmol/L [facility] Blood 11/30/2023 12:4 0 AM EDT 11/30/2023 12:48 AM EDT Narrative Resulting Agency Comment Spec In Lab Emory Ross MD CHEMISTRY ORDER LAKEISHA [facility] [place] [address] * Phosphorus (11/30/2023 12:40 AM EDT) Phosphorus 3.2 2.5 - 4.5 mg/dL [facility] Blood 11/30/2023 12:4 0 AM EDT 11/30/2023 12:48 AM EDT Narrative Resulting Agency Comment Spec In Lab Emory Ross MD CHEMISTRY ORDER LAKEISHA Performing Organization Address City/[facility]/ZIP Co de Phone Number [facility] [place] [address] * Heparin (unfractionated) Level (11/30/2023 12:40 AM EDT) UF Heparin 0.56 IU/mL [facility] Comment: Heparin (anti-Xa) levels should [...] Lab Emory Ross MD HEMATOLOGY ORDE RABLES Performing Organization Address [facility] Co de Phone Number [facility] [place] [address] * Heparin (unfractionated) Level (11/29/2023 4:20 PM EDT) UF Heparin 0.84 IU/mL [facility] Comment: Heparin (anti-Xa) levels [...] HEMATOLOGY CHASE GUTIERREZ [facility] [place] [address] * CT Chest wo Contrast (Generic) (11/29/2023 [...] who have questions please contact the health home visit field care manager that requested your imaging first. ? Electronically signed by: Marco A Glynn MD, [facility] ([phone]), at 11/30/2023 11:07 AM Narrative 11/30/2023 11:07 [...] patients who have questions please contactthe health home visit field care manager that requested your imaging first. Emory Ross MD IMG CT ORDERABL ES * Potassium (11/29/2023 9:30 AM EDT) Potassium 4.4 3.5 - 5.0 mmol/L [facility] Comment: Please note: ??Patients [...] Lab Emory Ross MD CHEMISTRY ORDER LAKEISHA [facility] [place] [address] * Heparin (unfractionated) Level (11/29/2023 9:30 AM EDT) UF Heparin 0.97 IU/mL [facility] Comment: Heparin (anti-Xa) [...] HEMATOLOGY CHASE GUTIERREZ [facility] [place] [address] * (ABNORMAL) Troponin (11/29/2023 9:30 AM EDT) Troponin-T, High Sensitivity 1,592(H) <=14 ng/L [facility] Comment: This patient's troponin T concentration [...] can be found in the [facility] Test Catalog Troponin - [facility] Test Catalog Reference: [place] Definition of Myocardial Infarction. Journal of the [place] [employer] 2018;72:6748-8192 Blood 11/29/2023 9:30 AM EDT 11/29/2023 9:42 AM EDT Narrative Resulting Agency Comment Spec In Lab Emory Ross MD CHEMISTRY ORDER LAKEISHA [facility] [place] [address] * (ABNORMAL) Troponin (11/29/2023 5:24 AM EDT) Troponin-T, High Sensitivity 1,667(H) <=14 ng/L [facility] Comment: This patient's troponin T concentration [...] can be found in the [facility] Test Catalog Troponin - [facility] Test Catalog Reference: Fourth [place] Definition of Myocardial Infarction. Journal of the [place] [employer] 2018;72:3308-7942 Blood 11/29/2023 5:24 AM EDT 11/29/2023 5:54 AM EDT Narrative Resulting Agency Comment Spec In Lab Emory Ross MD CHEMISTRY ORDER LAKEISHA [facility] [place] [address] * (ABNORMAL) BMP w/fasting Glucose (11/29/2023 12:27 AM EDT) Glucose Fasting 153(H) 65 - 99 mg/dL [facility] Comment: ?Fasting* Glucose Interpretive Criteria Normal [...] of Diabetes Mellitus, Position Statement from the [place] [employer]. ??Diabetes Care, Volume 33, Supplement 1, Sep 2009 Blood Urea Nitrogen 19(H) 8 - 18 mg/dL [facility] Creatinine 1.32(H) 0.70 - 1.20 mg/dL [facility] Sodium 140 135 - 145 mmol/L [facility] Potassium 3.7 3.5 - 5.0 mmol/L [facility] Comment: Please note: ??Patients with WBC >100,000 may have falsely elevated Potassium levels. ??For accurate Potassium quantification in these patients send serum separator tube (gold top) for subsequent determinations. ??Contact the Clinical Chemistry Laboratory if there are any questions. Chloride 104 98 - 107 mmol/L [facility] Carbon Dioxide 24 22 - 31 mmol/L [facility] Anion Gap 12 5 - 15 mmol/L [facility] Calcium 8.8 8.5 - 10.5 mg/dL [facility] Est Glomerular Filtration Rate 47(L) >=60 mL/min/1. 73 m?? [facility] Comment: This patient's estimated GFR was [...] MD CHEMISTRY ORDERABL ES Performing Organization Address City/[facility]/Z[place] [address] * (ABNORMAL) Differential, Automated (11/29/2023 12:27 AM EDT) Neutrophil % 86.9 % [facility] Neutrophil Absolute 13.48(H) 1.70 - 6.10 x10(3)/mc L [facility] Lymph % 8.6 % [facility] Lymphocytes Abs 1.3 0.9 - 3.2 x10(3)/mc L [facility] Monocyte % 3.4 % [facility] Monocyte Abs 0.5 0.3 - 0.9 x10(3)/mc L [facility] Eos % 0.5 % [facility] Eosinophils Abs 0.1 0.0 - 0.4 x10(3)/mc L [facility] Basophil % 0.1 % [facility] Baso Absolute 0.0 0.0 - 0.1 x10(3)/mc L [facility] Immature Gran % 0.50 % [facility] Comment: Immature granulocytes(IG's)percentage and absolute count will include metamyelocytes, myelocytes, and promyelocytes. Blood smears from CBCs yielding IG's will be scanned manually for concordance. If this scan disagrees with the automated IG or if promyelocytes are noted, a manual differential will be performed. Immature Gran Absolute 0.08(H) 0.00 - 0.04 x10(3)/mc L [facility] Blood 11/29/2023 12:2 7 AM EDT 11/29/2023 12:51 AM EDT Narrative Resulting Agency Comment Spec In Lab Corinne Saba MD HEMATOLOGY ORDERAB LES Performing Organization Address City/[facility]/[place] [address] * (ABNORMAL) Hemogram (11/29/2023 12:27 AM EDT) White Blood Cell 15.5(H) 4.0 - 9.5 x10(3)/mc L [facility] Red Blood Cell 3.33(L) 4.00 - 5.21 x10(6)/mc L [facility] Hemoglobin 10.3(L) 11.7 - 15.5 g/dL [facility] Hematocrit 30.7(L) 35.7 - 45.8 % [facility] Mean Cell Volume 92.2 82.6 - 94.4 fL [facility] Mean Cell Hemoglobin 30.9 27.1 - 32.0 pg [facility] Mean Cell Hemoglobin Concentration 33.6 31.7 - 35.0 g/dL [facility] Platelet 286 145 - 357 x10(3)/mc L [facility] RDW Standard Deviation 49.9(H) 37.0 - 46.0 fL [facility] RDW coefficient of variation 14.8(H) 11.5 - 14.1 % [facility] Mean Platelet Volume 12.0 7.6 - 12.9 fL [facility] NRBC% auto 0.0 % [facility] NRBC Absolute 0.000 0.000 - 0.000 x10(3)/mc L [facility] Blood 11/29/2023 12:2 7 AM EDT 11/29/2023 12:51 AM EDT Narrative Resulting Agency Comment Spec In Lab Corinne Saba MD HEMATOLOGY ORDERAB LES Performing Organization Address City/State/[facility] Co de Phone Number [facility] [place] [address] * Magnesium (11/29/2023 12:27 AM EDT) Magnesium 0.89 0.69 - 1.07 mmol/L [facility] Blood 11/29/2023 12:2 7 AM EDT 11/29/2023 12:51 AM EDT Narrative Resulting Agency Comment Spec In Lab Emory Ross MD CHEMISTRY ORDER LAKEISHA [facility] [place] [address] * Phosphorus (11/29/2023 12:27 AM EDT) Phosphorus 3.1 2.5 - 4.5 mg/dL [facility] Blood 11/29/2023 12:2 7 AM EDT 11/29/2023 12:51 AM EDT Narrative Resulting Agency Comment Spec In Lab Emory Ross MD CHEMISTRY ORDER LAKEISHA [facility] [place] [address] * (ABNORMAL) Troponin (11/29/2023 12:27 AM EDT) Troponin-T, High Sensitivity 1,719(H) <=14 ng/L [facility] Comment: This patient's troponin T concentration [...] can be found in the [facility] Test Catalog Troponin - [facility] Test Catalog Reference: Fourth [place] Definition of Myocardial Infarction. Journal of the [place] [employer] 2018;72:1186-7244 Blood 11/29/2023 12:2 7 AM EDT 11/29/2023 12:51 AM EDT Narrative Resulting Agency Comment Spec In Lab Emory Ross MD CHEMISTRY ORDER LAKEISHA [facility] [place] [address] * Triglyceride (11/29/2023 12:27 AM EDT) Triglyceride 93 mg/dL [facility] Comment: Average Risk/Lower Risk: <150 mg/dL Borderline High Risk: 150-199 mg/dL High Risk: 200-499 mg/dL Very High Risk: >kf=111 mg/dL Blood 11/29/2023 12:2 7 AM EDT 11/29/2023 12:51 AM EDT Narrative Resulting Agency Comment Spec In Lab Emory Ross MD CHEMISTRY ORDER LAKEISHA Performing Organization Address City/[facility]/ZIP Co de Phone Number [facility] [place] [address] * HDL/Cholesterol Profile (11/29/2023 12:27 AM EDT) Cholesterol, Total 139 mg/dL [facility] Comment: Lower Risk: <200 mg/dL Average Risk: 200-239 mg/dL Higher Risk: >sc=282 mg/dL HDL Cholesterol 44 mg/dL [facility] Comment: Males: ?? Higher Risk: <40 mg/dL Females: ?? Higher Risk: <50 mg/dL Cholesterol/HDL Ratio 3.2 ratio [facility] Chol/HDL Interpretation See Note [facility] Comment: Lipid management should be guided by a patient? s ASCVD risk, goals and preferences. ACC/AHA Guidelines recommend high intensity statin if clinical ASCVD or LDL greater than or equal to 190 mg/dL. http://tinyurl.com/EQW-UIG-Hvudcmbvw Measure LDL if Total Cholesterol minus HDL Cholesterol is greater than 220 mg/dL. Adults aged 40-75 with LDL 70-189 mg/dL should have their 10 year ASCVD risk estimated with the ACC/AHA ASCVD risk production estimator http://tools.acc.org/LSREN-Flij-Iybupkmey/ Statin should be discussed if risk greater [...] CHEMISTRY ORDER LAKEISHA [facility] [place] [address] * LDL Cholesterol, Direct (11/29/2023 12:27 AM EDT) LDL Cholesterol, Direct 69 mg/dL [facility] Comment: Lowest Risk: <100 mg/dL Lower Risk: 100-129 mg/dL Borderline High Risk: 130-159 mg/dL High Risk: 160-189 mg/dL Very High Risk: >yb=830 mg/dL Blood 11/29/2023 12:2 7 AM EDT 11/29/2023 12:51 AM EDT Narrative Resulting Agency Comment Spec In Lab Emory Ross MD CHEMISTRY ORDER LAKEISHA [facility] [place] [address] * Hemoglobin A1c (11/29/2023 12:27 AM EDT) Hemoglobin A1c 5.3 4.3 - 5.6 % [facility] Comment: Reference Range: 4.3 - 5.6% [...] Mellitus, Diabetes Care 2013; 36: Suppl. 1, W37-64 Estimated Average Glucose 107 mg/dL [facility] Blood 11/29/2023 12:2 7 AM EDT 11/29/2023 12:51 AM EDT Narrative Resulting Agency Comment Spec In Lab Emory Ross MD CHEMISTRY ORDER LAKEISHA Performing Organization Address City/[facility]/ZIP Co de Phone Number [facility] [place] [address] * Potassium (11/28/2023 6:00 PM EDT) Potassium 3.7 3.5 - 5.0 mmol/L [facility] Comment: Please note: ??Patients with WBC [...] MD CHEMISTRY ORDER LAKEISHA Performing Organization Address [facility] Co de Phone Number [facility] [place] [address] * (ABNORMAL) Troponin (11/28/2023 6:00 PM EDT) Troponin-T, High Sensitivity 1,107(H) <=14 ng/L [facility] Comment: This patient's troponin T concentration [...] can be found in the [facility] Test Catalog Troponin - [facility] Test Catalog Reference: Fourth [place] Definition of Myocardial Infarction. Journal of the [place] [employer]iology 2018;72:0543-2544 Blood 11/28/2023 6:00 PM EDT 11/28/2023 6:14 PM EDT Narrative Resulting Agency Comment Spec In Lab Emory Ross MD CHEMISTRY ORDER LAKEISHA Performing Organization Address City/[facility] [place] [address] * EKG 12 Lead (11/28/2023 5:50 PM EDT) Ventricular rate 85 BPM MUSE SYSTEM Atrial Rate 85 BPM MUSE SYSTEM P-R Interval 144 ms MUSE SYSTEM QRS Duration 142 ms MUSE SYSTEM Q-T Interval 448 ms MUSE SYSTEM QTC Calculated (Bezet) 533 ms MUSE SYSTEM Calculated P [place] 71 degrees MUSE SYSTEM Calculated R [place] 50 degrees MUSE SYSTEM Calculated T [place] 82 degrees MUSE SYSTEM INTERPRETATION Normal sinus rhythm Possible Left atrial enlargement Left bundle branch block Abnormal ECG When compared with ECG of 28-NOV-2023 10:55, Left bundle branch block is now Present Confirmed by MD Randle Katharine ([id number]) on 11/30/2023 9:25:14 PM MUSE SYSTEM 11/28/2023 5:50 PM EDT 11/30/2023 9:25 PM EDT Emory Ross MD ECG ORDERABLES Performing Organization Address City/[facility] Co de Phone Number MUSE SYSTEM * CARDIAC CATHETERIZATION (11/28/2023 5:12 PM EDT) Anatomical Region Laterality Modality Other Narrative 11/29/2023 3:02 PM EDT ?[facility] ? Cardiac Catheterization/Intervention Report ? Patient Name: Asia, Oksana A. ? Procedure Date: 11/28/2023 ? A #: [id number] ? Primary Physician: Ryder Hargrove ? Case #: [id number] ? File Name: [id number] ? Catheterization Order Number: [id number] ? [facility] ? Final Report [place], [place] ? Patient Name: ? Oksana AntoineRyan Betancourt ?ID#: ?[id number] ? : ?1965 ? Procedure Date: ? November 28, 2023 ? Case #: ? [id number] ? Room: ? 2 ? Case Physician: [...] was designated as ASA Class ?III. The CSHA clinical frailty scale is 5: Mildly Frail. [...] procedure was Urgent. The indication for ?the culture media laboratory assistant visit is ACS less than or equal [...] ? A premounted 3.50 x 22 mm Boise Dewitt (CRIS) was deployed ? with a maximum [...] dose administered prior to arrival in the culture media laboratory assistant. ?Recommended anti-platelet/anti-thrombotic regimen: ?Continue aspirin 81 mg daily for indefinitely. ?Continue clopidogrel 75 mg daily for indefinitely. ?These recommendations are made at the time of the intervention. Patient ?and provider preferences or a changing clinical situation may require ?modification of this regimen. Consult [facility] Interventional Cardiology for ?questions. ? Conclusions: ?* [...] Procedure Note Ryder Hargrove MD - 01/25/2024 [facility] Cardiac Catheterization/Intervention Report Patient Name: Asia Oksana AntoineRyan Procedure Date: 11/28/2023 A #: [id number] Primary Physician: Ryder Hargrove Case #: [id number] File Name: [id number] Catheterization Order Number: [id number] [facility] FinalReport [place], [place] Patient Name: Oksana Betancourt ID#:[id number] :1965 Procedure Date: November 28, 2023 Case [...] patient was designated as ASAClass III. The [facility] clinical frailty scale is 5: Mildly Frail. Diagnostic Tests: Prior Coronary Angiography: LV ejection fraction within 6 months is 50%. Electrocardiography: EKG was assessed by ECG. EKG was Normal. Medications Prior to Procedure: Ranolazine, Aspirin, Calcium Channel Blocking Agent, LongActing Nitrate and Statin. Indications for Diagnostic Cath: The priority of the diagnostic procedure was Urgent. The indicationfor the culture media laboratory assistant visit is ACS less than or equal [...] The priority for the procedure was Urgent.The [facility] indication for the procedure was NSTE-ACS. LVEF [...] 16atmospheres. A premounted 3.50 x 22 mm Boise Dewitt (CRIS) wasdeployed with a maximum inflation pressure [...] dose administered prior to arrival in the culture media laboratory assistant. Recommended anti-platelet/anti-thrombotic regimen: Continue aspirin 81 mg daily for indefinitely. Continue clopidogrel 75 mg daily for indefinitely. These recommendations are made at the time of the intervention.Patient and provider preferences or a changing clinical situation mayrequire modification of this regimen. Consult [facility] Interventional Cardiologyfor questions. Conclusions: * Significant stenosis [...] EDT Narrative 11/28/2023 4:51 PM EDT [address] [place] [address] ? Echocardiogram Report Name: OKSANA BETANCOURT ? Study Date: 11/28/2023 12:58 PMBP: 136/73 mmHg ? Patient Location: [facility] CV29 A : 1965 ? Height: 168 cm ? Account: [id number] Age: 57 yrs ? Weight: 109 kg Gender: Female ?BSA: 2.2 m2 Ordering Physician: NILDA Referring Physician: BLAZE RANDALL Performed By: VICKY Mcdonnell Reason For Study: NSTEMI Exam Location: [facility]. Interpretation Summary -Left ventricular systolic function is [...] comparison. See report for additional findings. Procedure Complete-74463. Image enhancement Optison was used for left [...] Note Solo Rausch MD - 11/28/2023 [address] [place] [address] Echocardiogram Report Name: OKSANA BETANCOURT Antoine Study Date: 412:58 PMBP: 136/73 mmHg Patient Location: [address] : 1965 Height: 168 cm Account: [id number] Age: 57 yrs Weight: 109 kg Gender: Female BSA: 2.2 m2 Ordering Physician: NILDA Referring Physician: BLAZE RANDALL Performed By: VICKY Mcdonnell Reason For Study: NSTEMI Exam Location: [facility]. Interpretation Summary -Left ventricular systolic function is mildly reduced. The leftventricular ejection fraction is 44% by Guzman's biplane. There are segmental wallmotion abnormalities which are in an RCA distribution (inferior, inferoseptal predominantly-see attached PDF). No thrombus. -Right ventricular systolic function is normal. The estimated RVSP [id number]. -There is an aortic bioprosthesis (size/type unknown, reported to havebeen placed in 2021) which appears to be functioning normally. Mean gradient 5mmHg.No regurgitation. -There is moderate mitral regurgitation which is both central andanteriorly directed. The leaflets are not well visualized. The mechanism of the MR isunclear with the available data. No prior images for comparison. See report for additional findings. Procedure Complete-[id number]. Image enhancement Optison was used for left [...] - 199 mg/dL [facility] Comment: Supplemental ranges: <140 mg/dL before meals <180 mg/dL all other times of the day Blood 11/28/2023 4:22 PM EDT 11/28/2023 4:22 PM EDT Emory Ross MD POINT OF CARE T EST ORDERABLES Performing Organization Address City/State/[facility] Co de Phone Number [facility] [place] [address] * (ABNORMAL) Point of Care Blood Gas Historical (11/28/2023 3:26 PM EDT) pH, POC 7.36 7.35 - 7.45 [facility] pCO2, POC 39 35 - 45 mmHg [facility] pO2, POC 150(H) 85 - 104 mmHg [facility] Base Excess, POC -3.0 -3.0 - 3.0 mmol/L [facility] Bicarbonate, POC 22.0 20.0 - 26.0 mmol/L [facility] Sodium, POC 136 135 - 145 mmol/L [facility] POC Potassium 3.5 3.5 - 5.0 mmol/L [facility] Ionized Calcium, POC 1.18 1.15 - 1.33 mmol/L [facility] POC Hematocrit 29.0(L) 34.0 - 45.0 % [facility] POC Calc Hgb 9.9(L) 11.2 - 15.7 g/dL [facility] Comment:The calculation of h emoglobin from hematocrit assumes a normal MCHC. POC Bgas Loc CC Lab [facility] Blood 11/28/2023 3:26 PM EDT 12/01/2023 12:00 PM EDT Arlin Jackson MD CHEMISTRY ORDERABL ES [facility] [place] [address] * (ABNORMAL) Troponin (11/28/2023 2:20 PM EDT) Troponin-T, High Sensitivity 812(H) <=14 ng/L [facility] Comment: This patient's troponin T concentration [...] can be found in the [facility] Test Catalog Troponin - [facility] Test Catalog Reference: Fourth [place] Definition of Myocardial Infarction. Journal of the [place] [employer] 2018;72:1149-0367 Blood 11/28/2023 2:20 PM EDT 11/28/2023 2:30 PM EDT Narrative Resulting Agency Comment Spec In Lab Emory Ross MD CHEMISTRY ORDER LAKEISHA [facility] [place] [address] * XR Chest One View (11/28/2023 11:30 [...] who have questions please contact the health home visit field care manager that requested your imaging first. ? Narrative 11/28/2023 2:04 PM EDT EXAMINATION: XR [...] patients who have questions please contactthe health home visit field care manager that requested your imaging first. Emory Ross MD IM DX ORDERABL ES * (ABNORMAL) Troponin (11/28/2023 11:10 AM EDT) Troponin-T, High Sensitivity 713(H) <=14 ng/L [facility] Comment: This patient's troponin T concentration [...] can be found in the [facility] Test Catalog Troponin - [facility] Test Catalog Reference: Fourth [place] Definition of Myocardial Infarction. Journal of the [place] [employer] 2018;72:7138-3620 Blood Venous Draw / Unknown 11/28/2023 11:10 AM EDT 11/28/2023 11:28 AM EDT Narrative Resulting Agency Comment Spec In Lab Corinne Saba MD CHEMISTRY ORDERABL ES [facility] [place] [address] * (ABNORMAL) Differential, Automated (11/28/2023 11:10 AM EDT) Neutrophil % 86.9 % [facility] Neutrophil Absolute 12.13(H) 1.70 - 6.10 x10(3)/mc L [facility] Lymph % 10.0 % [facility] Lymphocytes Abs 1.4 0.9 - 3.2 x10(3)/mc L [facility] Monocyte % 2.5 % [facility] Monocyte Abs 0.4 0.3 - 0.9 x10(3)/mc L [facility] Eos % 0.1 % [facility] Eosinophils Abs 0.0 0.0 - 0.4 x10(3)/mc L [facility] Basophil % 0.1 % [facility] Baso Absolute 0.0 0.0 - 0.1 x10(3)/mc L [facility] Immature Gran % 0.40 % [facility] Comment: Immature granulocytes(IG's)percentage and absolute count will include metamyelocytes, myelocytes, and promyelocytes. Blood smears from CBCs yielding IG's will be scanned manually for concordance. If this scan disagrees with the automated IG or if promyelocytes are noted, a manual differential will be performed. Immature Gran Absolute 0.06(H) 0.00 - 0.04 x10(3)/mc L [facility] Blood 11/28/2023 11:1 0 AM EDT 11/28/2023 11:28 AM EDT Narrative Resulting Agency Comment Spec In Lab Corinne Saba MD HEMATOLOGY ORDERAB LES Performing Organization Address City/[facility]/ZIP Co de Phone Number [facility] [place] [address] * (ABNORMAL) Hemogram (11/28/2023 11:10 AM EDT) White Blood Cell 14.0(H) 4.0 - 9.5 x10(3)/mc L [facility] Red Blood Cell 3.59(L) 4.00 - 5.21 x10(6)/mc L [facility] Hemoglobin 11.0(L) 11.7 - 15.5 g/dL [facility] Hematocrit 33.2(L) 35.7 - 45.8 % [facility] Mean Cell Volume 92.5 82.6 - 94.4 fL [facility] Mean Cell Hemoglobin 30.6 27.1 - 32.0 pg [facility] Mean Cell Hemoglobin Concentration 33.1 31.7 - 35.0 g/dL [facility] Platelet 293 145 - 357 x10(3)/mc L [facility] RDW Standard Deviation 50.1(H) 37.0 - 46.0 fL [facility] RDW coefficient of variation 14.7(H) 11.5 - 14.1 % [facility] Mean Platelet Volume 12.8 7.6 - 12.9 fL [facility] NRBC% auto 0.0 % [facility] NRBC Absolute 0.000 0.000 - 0.000 x10(3)/mc L [facility] Blood 11/28/2023 11:1 0 AM EDT 11/28/2023 11:28 AM EDT Narrative Resulting Agency Comment Spec In Lab Corinne Saba MD HEMATOLOGY ORDERAB LES Performing Organization Address City/[facility]/ZIP Co de Phone Number [facility] [place] [address] * (ABNORMAL) Heparin (unfractionated) Level (11/28/2023 11:10 AM EDT) UF Heparin >2.00(Cri tical) IU/mL [facility] Comment: Specimen drawn more than one [...] HEMATOLOGY CHASE GUTIERREZ [facility] [place] [address] * (ABNORMAL) Hepatic Function Panel (11/28/2023 11:10 AM EDT) Pathologist [facility] Protein, Total 7.2 6.1 - 8.0 g/dL [facility] Albumin 4.1 3.2 - 5.2 g/dL [facility] Aspartate Aminotransferase 48(H) 0 - 30 unit/L [facility] Alanine Aminotransferase 16 0 - 30 unit/L [facility] Alkaline Phosphatase 117(H) 35 - 105 unit/L [facility] Bilirubin, Total 0.6 0.2 - 1.3 mg/dL [facility] Bilirubin, Direct 0.2 0.0 - 0.3 mg/dL [facility] Blood 11/28/2023 11:1 0 AM EDT 11/28/2023 11:28 AM EDT Narrative Resulting Agency Comment Spec In Lab Emory Ross MD CHEMISTRY ORDER LAKEISHA [facility] [place] [address] * (ABNORMAL) pro-Brain Natriuretic Peptide (11/28/2023 11:10 AM EDT) NT-proBNP 11,073(H) <=124 pg/mL [facility] Blood 11/28/2023 11:1 0 AM EDT 11/28/2023 11:28 AM EDT Narrative Resulting Agency Comment Spec In Lab Emory Ross MD CHEMISTRY ORDER LAKEISHA Performing Organization Address City/[facility] Co de Phone Number [facility] [place] [address] * (ABNORMAL) APTT (11/28/2023 11:10 AM EDT) Partial Thromboplastin Time 78(H) 25 - 37 sec [facility] Comment: The PTT is NOT appropriate for heparin monitoring. Use the Anti-Xa level for heparin monitoring (HEP UFH) or LMWH monitoring (HEP LMW). A PTT less than 37 seconds generally indicates adequate hemostasis. Blood 11/28/2023 11:1 0 AM EDT 11/28/2023 11:28 AM EDT Narrative Resulting Agency Comment Spec In Lab Emory Ross MD HEMATOLOGY ORDE RABLES [facility] [place] [address] * (ABNORMAL) Prothrombin Time (11/28/2023 11:10 AM EDT) Prothrombin Time 18.5(H) 9.4 - 12.5 sec [facility] International Normalization Ratio 1.6 [facility] Comment: An INR <2.0 indicates adequate [...] In Lab Emory Ross MD HEMATOLOGY ORDE MATT [facility] [place] [address] * Phosphorus (11/28/2023 11:10 AM EDT) Phosphorus 3.1 2.5 - 4.5 mg/dL [facility] Blood 11/28/2023 11:1 0 AM EDT 11/28/2023 11:28 AM EDT Narrative Resulting Agency Comment Spec In Lab Emory Ross MD CHEMISTRY ORDER LAKEISHA Performing Organization Address City/[facility]/ZIP Co de Phone Number [facility] [address] * Magnesium (11/28/2023 11:10 AM EDT) Magnesium 0.84 0.69 - 1.07 mmol/L [facility] Blood 11/28/2023 11:1 0 AM EDT 11/28/2023 11:28 AM EDT Narrative Resulting Agency Comment Spec In Lab Emory Ross MD CHEMISTRY ORDER LAKEISHA Performing Organization Address City/[facility] Health/ZIP Co de Phone Number [facility] [place] [address] * TSH (11/28/2023 11:10 AM EDT) Thyroid Stimulating Hormone 0.51 0.27 - 4.20 mcIU/mL [facility] Comment: Reference Interval (mcIU/mL): Females: ??First Trimester: 0.23-3.88 ??Second Trimester: 0.22-3.90 ??Third Trimester: 0.44-4.66 Blood 11/28/2023 11:1 0 AM EDT 11/28/2023 11:28 AM EDT Narrative Resulting Agency Comment Spec In Lab Emory Ross MD CHEMISTRY ORDER LAKEISHA [facility] [place] [address] * (ABNORMAL) Basic Metabolic Panel (non-fasting) (11/28/2023 11:10 AM EDT) Glucose 151 65 - 199 mg/dL [facility] Comment:Diabetes: >=200 mg/d L plus symptoms Blood Urea Nitrogen 17 8 - 18 mg/dL [facility] Creatinine 1.26(H) 0.70 - 1.20 mg/dL [facility] Sodium 139 135 - 145 mmol/L [facility] Potassium 3.6 3.5 - 5.0 mmol/L [facility] Comment: Please note: ??Patients with WBC >100,000 may have falsely elevated Potassium levels. ??For accurate Potassium quantification in these patients send serum separator tube (gold top) for subsequent determinations. ??Contact the Clinical Chemistry Laboratory if there are any questions. Chloride 103 98 - 107 mmol/L [facility] Carbon Dioxide 23 22 - 31 mmol/L [facility] Anion Gap 13 5 - 15 mmol/L [facility] Calcium 9.1 8.5 - 10.5 mg/dL [facility] Est Glomerular Filtration Rate 49(L) >=60 mL/min/1. 73 m?? [facility] Comment: This patient's estimated GFR was [...] CHEMISTRY ORDER LAKEISHA [facility] [address] documented in this encounter Visit Diagnoses Not on filedocumented in this encounter Admitting Diagnoses Diagnosis NSTEMI [...] AM EDT 81 mg atorvastatin (Lipitor) tablet 80 mg 80 [...] Given 12/02/2023 8:11 AM EDT 75 mg fentaNYL (pf) (50 mcg/mL) multi-dose injection PRN, Starting on Tue12/02/23 at 1117, Until Tue12/02/23 at 1543, Intra-Operative (Intra-Procedure), Routine Given 12/02/2023 12:24 PM EDT 25 mcg Given 12/02/2023 11:29 AM EDT 25 mcg Given 12/02/2023 11:17 AM EDT 25 mcg heparin (porcine) (1,000 units/mL) injection PRN, Starting on Tue12/02/23 at 1134, Until Tue12/02/23 at 1543, Intra-Operative (Intra-Procedure), Routine Given 12/02/2023 11:59 AM EDT 3,000 Units Given 12/02/2023 11:46 AM EDT 4,000 Units Given 12/02/2023 11:34 AM EDT 5,000 Units iohexoL (Omnipaque) (350 mg/mL) solution PRN, Starting on Tue12/02/23 at 1226, Until Tue12/02/23 at 1543, Intra-Operative (Intra-Procedure), Routine Given 12/02/2023 12:26 PM EDT 139 mLs ipratropium-albuteroL (Duoneb) 0.5 mg-3 mg(2.5 mg base)/3 mL nebulizer solution 3 mL 3 mL, Nebulization, EVERY 4 HOURS SCHEDULED, First dose on Tue11/28/23 at 1745, Until Discontinued, Routine Given 12/04/2023 11:42 AM EDT 3 mLs Given 12/04/2023 8:45 AM EDT 3 mLs Given 12/04/2023 3:09 AM EDT 3 mLs lamoTRIgine (LaMICtal) tablet 100 [...] Given 12/04/2023 8:44 AM EDT 50 mg midazolam (pf) (Versed) (1 mg/mL) multi-dose injection PRN, Starting on Tue12/02/23 at 1117, Until Tue12/02/23 at 1543, Intra-Operative (Intra-Procedure), Routine Given 12/02/2023 11:29 AM EDT 1 mg Given 12/02/2023 11:17 AM EDT 1 mg ondansetron (Zofran) tablet 4 mg 4 mg, Oral, EVERY 8 HOURS PRN, Starting on Tue11/28/23 at 1232, Until Tue12/04/23 at 1625, Nausea, Routine Given 2023 7:09 AM EDT 4 mg Given 11/28/2023 10:05 PM EDT 4 mg oxyCODONE-acetaminophen (Percocet) 5-325 mg per tablet 2 tablet 2 tablet, Oral, EVERY 8 HOURS PRN, Pain, Starting on Tue11/28/23 at 1232, Until Tue12/04/23 at 1625 Given 12/04/2023 11:41 AM EDT [...] Given 12/02/2023 8:11 AM EDT 40 mg potassium chloride ER (Klor-Con M) crystal tablet [...] Given 2023 8:10 AM EDT 5 mLs documented in this encounter Active and Recently Administered Medications Times are shown in EDT. Scheduled Medication Order 12/02/2023 2023 12/04/2023 apixaban (Eliquis) tablet 5 mg 5 mg, Oral, 2 TIMES DAILY, First dose on Tue12/04/23 at 0900, Until Discontinued, Anticoagulant, Routine, Restricted anticoagulant, choose the most appropriate response: Approved indication of non-valvular atrial fibrillation 0844 (Given - Provider: Angelique Michaels, KANDI) aspirin chewable tablet 81 mg 81 mg, Oral, DAILY, First dose on Tue11/29/23 at 0900, Until Discontinued, Routine 0811 (Given - Provider: Mark Hooper RN)1158 ([facility] Hold - Provider: Admin Adt - Reason: Transfer to a Procedural area)1543 ([facility] Unhold - Provider: Admin Adt) 0809 (Given - Provider: Mark Hooper RN) 0844 (Given - Provider: Angelique Michaels, KANDI) atorvastatin (Lipitor) tablet 80 mg 80 mg, Oral, DAILY AT NOON, First dose (after last modification) on Tue11/29/23 at 1200, Until Discontinued, Routine 1158 ([facility] Hold - Provider: Admin Adt - Reason: Transfer to a Procedural area)1200 (Not Given - Provider: Mark Hooper RN - Reason: Patient not available)1543 ([facility] Unhold - Provider: Admin Adt) 1239 (Given - Provider: Mark Hooper RN) 1142 (Given - Provider: Angelique Michaels, KANDI) baclofen (Lioresal) tablet 5 mg 5 mg, Oral, 2 TIMES DAILY, First dose on Tue11/28/23 at 1330, Until Discontinued, Routine 0811 (Given - Provider: Mark Hooper RN)1158 ([facility] Hold - Provider: Admin Adt - Reason: Transfer to a Procedural area)1543 ([facility] Unhold - Provider: Admin Adt)2020 (Given - Provider: Lukas Dia RN) 0810 (Given - Provider: Mark Hooper RN)2012 (Given - Provider: Lukas Dia RN) 0845 (Given - Provider: Angelique Michaels, KANDI) clopidogreL (Plavix) tablet 75 mg 75 mg, Oral, DAILY, First dose on Tue11/29/23 at 0900, Until Discontinued, Routine 0811 (Given - Provider: Mark Hooper RN)1158 ([facility] Hold - Provider: Admin Adt - Reason: Transfer to a Procedural area)1543 ([facility] Unhold - Provider: Admin Adt) 0809 (Given - Provider: Mark Hooper RN) 0844 (Given - Provider: Angelique Michaels, KANDI) heparin (porcine) (5,000 units/1 mL) subcutaneous injection [...] reschedule)0812 (Given - Provider: Mark Hooper RN)1158 ([facility] Hold - Provider: Admin Adt - Reason: Transfer to a Procedural area)1200 (Not Given - Provider: Mark Hooper RN - Reason: Patient not available)1543 ([facility] Unhold - Provider: Admin Adt)1600 (Given - [...] 0811 (Given - Provider: Mark Hooper RN)1158 ([facility] Hold - Provider: Admin Adt - Reason: Transfer to a Procedural area)1543 ([facility] Unhold - Provider: Admin Adt)2020 (Given - Provider: Lukas Dia RN) 0809 (Given - Provider: Mark Hooper RN)2012 (Given - Provider: Lukas Dia RN) 0844 (Given - Provider: Angelique Michaels, KANDI) levothyroxine (Synthroid) tablet 100 mcg 100 mcg, Oral, EVERY MORNING, First dose on Tue11/28/23 at 1330, Until Discontinued, Routine 0537 (Given - Provider: Santa Barrett RN)1158 ([facility] Hold - Provider: Admin Adt - Reason: Transfer to a Procedural area)1543 ([facility] Unhold - Provider: Admin Adt) 0650 (Given [...] not available)1543 ([facility] Unhold - Provider: Admin Adt)1823 (Given - Provider: Mark Hooper, KANDI)2346 (Given - Provider: Lukas Dia, KANDI) 0649 (Given - Provider: Lukas Dia RN)1239 (Given - Provider: Mark Hooper RN)1809 (Given - Provider: Mark Hooper RN)2320 (Given [...] Hooper RN) 0844 (Given - Provider: Angelique Michaels, KANDI) QUEtiapine (SEROquel) tablet 100 mg 100 mg, Oral, NIGHTLY, First dose on Tue11/28/23 at 2100, Until Discontinued, Routine 1158 ([facility] Hold - Provider: Admin Adt - Reason: Transfer to a Procedural area)1543 ([facility] Unhold - Provider: Admin Adt)2020 (Given - Provider: Lukas Dia, RN) 2012 (Given - Provider: Lukas Dia, RN) sodium chloride 0.9 % (flush) (BD [...] Reason: See comment - Comment: NS infusing) 0810 (Given - Provider: Mark Hooper RN)2012 (Given - Provider: Lukas Dia, KANDI) 0900 (Given - Provider: Angelique Michaels RN) Continuous [...] (Intra-Procedure), Routine 1117 (Given - Provider: Kwabena Nevarez, KANDI)1129 (Given - Provider: Hawa Guzmán, KANDI)1224 (Given - Provider: Kwabena Nevarez RN) heparin (porcine) (1,000 units/mL) injection (CANCELED) PRN, Starting on Tue12/02/23 at 1134, Until Tue12/02/23 at 1543, Intra-Operative (Intra-Procedure), Routine 1134 (Given - Provider: Hawa Guzmán, KANDI)1146 (Given - Provider: Hawa Guzmán RN)1159 (Given - Provider: Hawa Guzmán RN - Comment: act 249) iohexoL (Omnipaque) (350 mg/mL) solution (CANCELED) PRN, Starting on Tue12/02/23 at 1226, Until Tue12/02/23 at 1543, Intra-Operative (Intra-Procedure), Routine 1226 (Given - Provider: Ryder Hargrove MD) lidocaine (Xylocaine) 1% (10 mg/mL) injection 3 mg 3 mg (0.3 mL), Subcutaneous, ONCE PRN, 1 dose, Starting on Tue11/28/23 at 1105, Until 12/04/23 at 1625, for discomfort with PIV insertion, [...] Tue11/28/23 at 1105, Until 12/04/23 at 1625, Chest pain, May repeat every [...] area)1543 ([facility] Unhold - Provider: Admin Adt) ondansetron (Zofran) tablet 4 mg 4 mg, Oral, EVERY 8 HOURS PRN, Starting on Tue11/28/23 at 1232, Until 12/04/23 at 1625, Nausea, Routine 1158 ([facility] Hold - Provider: Admin Adt - Reason: Transfer to a Procedural area)1543 ([facility] Unhold - Provider: Admin Adt) 0709 (Given - Provider: Mark Hooper, KANDI) oxyCODONE-acetaminophen (Percocet) 5-325 mg per tablet 2 tablet 2 tablet, Oral, EVERY 8 HOURS PRN, Pain, Starting on 11/28/23 at 1232, Until 12/04/23 at 1625 0002 (Given - Provider: Santa Barrett RN)1036 (Given - Provider: Mark Hooper RN)1158 ([facility] Hold - Provider: Admin Adt - Reason: Transfer to a Procedural area)1543 ([facility] Unhold - Provider: Admin Adt)202 (Given - [...] chew, or suck on tablet., Routine 1158 ([facility] Hold - Provider: Admin Adt - Reason: Transfer to a Procedural area)1543 ([facility] Unhold - Provider: Admin Adt) 1616 (Given [...] chew, or suck on tablet., Routine 1158 ([facility] Hold - Provider: Admin Adt - Reason: Transfer to a Procedural area)1543 ([facility] Unhold - Provider: Admin Adt) 1616 (See [...] provided on this medication record., Routine 1158 ([facility] Hold - Provider: Admin Adt - Reason: Transfer to a Procedural area)1543 ([facility] Unhold - Provider: Admin Adt) Linked Groups [...] Routine documented in this encounter Care Teams Numerical Tool Programmer Relationship Specialty Start Date End Date Gaudencio Scales DO [address] [place] [address] PCP - General Family Medicine 11/28/23 documented as of this encounter
--- OUTSIDE RECORDS SUMMARY | 2024-07-27 12:51 | XMS_ITS | Encounter Summary ---
Author Organization [facility] Address [facility] [place] [address] Care Team Providers Care Die Stamper Name Role Phone Eddie Hawthorne VERNELL Primary Care Provider Encounter Details Date Type Department Care Team (Late st Contact Info) Description 07/14/2018 Ancillary Procedure Radiology Library at [facility] [place] [phone] Jr Fulton MD [facility] [place] [address] Social History Tobacco Use Types Packs/Day Years Used Date Smoking Tobacco: Never Assessed Sex and Gender Information Value Date Recorded Sex Assigned at Not on file Gender Identity Not on file Sexual Orientation Not on file documented as of this encounter Plan of Treatment Upcoming Encounters Date Type Department Care Team (Latest Contact Info) Description 07/30/2024 8:40 AM EST Hospital [place] [phone] Jr Fulton MD [facility] [place] [address] 07/30/2024 8:45 AM EST [place] [phone] Jr Fulton MD [facility] [place] [address] 07/30/2024 9:20 AM EST Hospital [place] [phone] Jr Fulton MD [facility] [place] [address] 07/30/2024 10:51 AM EST Hospital Encounter [facility] [place] [phone] Jr Fulton MD [facility] [place] [address] 07/30/2024 10:51 AM EST Anesthesia Event [facility] [place] [phone] Megan Orona [place] [address] 07/30/2024 10:51 AM EST - 07/30/2024 1:11 PM EST Surgery [facility] [place] [phone] Jr Fulton MD [facility] [place] [address] MASTECTOMY PARTIAL (WRVU 10.13) 08/22/2024 2:00 PM EST Office Visit General Surgery at [place] [phone] Cindy Pierce APRN [facility] [place] [address] 08/22/2024 3:00 PM EST Office Visit Hematology and Oncology at [place] [phone] Soo Lyn MD [facility] [place] [address] 08/27/2024 9:30 AM EST Scheduled View Only Radiation Oncology at [address] [phone] [address] Nurse[address] [place]valles 08/27/2024 10:00 AM EST Office Visit Radiation Oncology at [address] [phone] Paradise Prado MD [facility] RADIATION [place] [address] 2024 1:00 PM EDT Office Visit Cardiology at [address] [place] [phone] Ham Montenegro MD [facility] [place] [address] Scheduled Procedures Name Priority Associated Diagnoses Date/Ti [...] Comments FILM LIBRARY-STORAGE ONLY US BREAST Routine 07/14/2018 12:00 AM EDT documented in this encounter Results * Film Library Storage Only US Breast (07/14/2018 12:00 AM EDT) Narrative [facility] - 02/21/2024 8:48 PM EDT This exam is auto-finalizing. It's purpose is for storage only. Jr Fulton MD [facility] [place]M LIBRARY ORD ERABLES [place] documented in this encounter Visit Diagnoses Not on filedocumented in this encounter Care Teams Die Stamper Relationship Specialty Start Date End Date Eddie Hawthorne APRN [address] [place] [address] PCP - General 08/11/10 11/27/23 documented as of this encounter
--- OUTSIDE RECORDS SUMMARY | 2024-07-27 12:51 | XMS_ITS | Encounter Summary ---
Author Organization [facility] Address [address] [place] [address] Care Team Providers Care Travel Rn Or Name Role Phone Unavailable Primary Care Provider Unavailabl e Encounter Details Date Type Department Care Team (Late st Contact Info) Description 06/08/2001 Results Only [facility] - Maple conversion [address] [place] [address] Marie Lopez NP [address] [facility],[address] [phone] Social History Tobacco Use Types Packs/Day Years Used Date Smoking Tobacco: Never Assessed Sex and Gender Information Value Date Recorded Sex Assigned at Not on file Gender Identity Not on file Sexual Orientation Not on file documented as of this encounter Plan of Treatment Not on file documented as of this encounter Procedures Procedure Name Priority Date/Time Associated Diagnosis Comments CYTOPATHOLOGY Routine 06/08/2001 0:00 EDT documented in this encounter Results * CYTOPATHOLOGY (06/08/2001 0:00 EDT) Pathology Report: CYTOPATHOLOGY REPORT Reports generated via electronic interface contain original data; however they are lacking the format of the original report. Caution should be taken when reading/interpreti ng unformatted reports. Name: ? IAIN CORRIGAN ? Accession #: ? [id number] : ? 1965 (Age: 35) ??F ?Collect Date: ? 06/08/2001 Location: ? [facility] ? Receive Date: ? 06/13/2001 Provider: ?MARIE LOPEZ NP Copy to: ? Specimen/Source: ?Conventional Pap Test, Cervix/Endocervix Last Menstrual Period: ? 06/01/01 Other: ? Additional clinical information: Fibroid uterus ? SPECIMEN ADEQUACY ? Satisfactory for evaluation. GENERAL CATEGORIZATION ? Within Normal Limits ? Document reviewed and electronically signed by: ? [place] Stapleton(ASCP) ? Report Date: ??06/14/2001 07:56 End of Report [facility] 06/08/2001 06/13/2001 Marie Lopez NP PATHOLOGY ORDERABLES [facility] [address] [place] [address] documented in this encounter Visit Diagnoses Not on filedocumented in this encounter
--- OUTSIDE RECORDS SUMMARY | 2024-07-27 12:51 | XMS_ITS | Encounter Summary ---
Author Organization [facility] [place] [address] Care Team Providers Care Bench Tool Maker Name Role Phone Eddie Hawthorne VERNELL Primary Care Provider Encounter Details Date Type Department Care Team (Late st Contact Info) Description 06/07/2018 Ancillary Procedure Radiology Library at [place] [phone] Jr Fulton MD [facility] [place] [address] Social History Tobacco Use Types Packs/Day Years Used Date Smoking Tobacco: Never Assessed Sex and Gender Information Value Date Recorded Sex Assigned at Not on file Gender Identity Not on file Sexual Orientation Not on file documented as of this encounter Plan of Treatment Upcoming Encounters Date Type Department Care Team (Latest Contact Info) Description 07/30/2024 8:40 AM EST Hospital En[place] [phone] [facility] [place] [address] 07/30/2024 8:45 AM EST App[place] [phone] [facility] [place] [place] [address] 07/30/2024 9:20 AM EST Hospital En[place] [phone] [facility] [place] [address] 07/30/2024 10:51 AM EST Hospital Encounter [facility] [place] [phone] [facility] [place] [address] 07/30/2024 10:51 AM EST Anesthesia Event [place] [phone] Megan Oron[place] [address] 07/30/2024 10:51 AM EST - 07/30/2024 1:11 PM EST Surgery [facility] [place] [phone] [facility] [place] [address] MASTECTOMY PARTIAL (WRVU 10.13) 08/22/2024 2:00 PM EST Office Visit General Surgery at [place] [phone] [facility] [place] [address] 08/22/2024 3:00 PM EST Office Visit Hematology and Oncology at [place] [phone] [facility] [place] [address] 08/27/2024 9:30 AM EST Scheduled View Only Radiation Oncology at [address] [phone] [address] [place]valles 08/27/2024 10:00 AM EST Office Visit Radiation Oncology at [address] [phone] [facility] [place] [address] 2024 1:00 PM EDT Office Visit Cardiology at [address] [place] [phone] Ham Monten[address]ro MD [facility] [place] [address] Scheduled Procedures Name Priority Associated Diagnoses Date/Ti [...] Comments FILM LIBRARY STORAGE ONLY MAMMO Routine 06/07/2018 12:00 AM EDT documented in this encounter Results * Film Library- Storage Only Mammo (06/07/2018 12:00 AM EDT) Narrative [facility] - 02/21/2024 8:48 PM EDT This exam is auto-finalizing. It's purpose is for storage only. Jr Fulton MD [facility] FILM LIBRARY ORD ERABLES [place], [place] documented in this encounter Visit Diagnoses Not on filedocumented in this encounter Care Teams Bench Tool Maker Relationship Specialty Start Date End Date Eddie Hawthorne APRN [address] [place] [address] PCP - General 08/11/10 11/27/23 documented as of this encounter
--- OUTSIDE RECORDS SUMMARY | 2024-07-27 12:51 | XMS_ITS | Encounter Summary ---
Author Organization [facility] Address [address] [place] [address] Care Team Providers Care Film Inspector Name Role Phone Unavailable Primary Care Provider Unavailabl e Encounter Details Date Type Department Care Team (Latest Contact Info) Description 01/26/2006 22:22 EDT Hospital Encounter [facility] - Other [address] [place], [place] [phone] Katie Oreilly MD [address] [facility] Medical Office Building, [address] [place] [address] Discharge Disposition: Home or Self Care Social History Tobacco Use Types Packs/Day Years Used Date Smoking Tobacco: Never Assessed Sex and Gender Information Value Date Recorded Sex Assigned at Not on file Gender Identity Not on file Sexual Orientation Not on file documented as of this encounter Discharge Disposition Disposition Code Departure Means Destination Home or Self Care documented in this encounter Plan of Treatment Not on file documented as of this encounter Procedures Procedure Name Priority Date/Time Associated Diagnosis Comments BACTERIAL CULTURE, URINE Routine 01/26/2006 20:14 EDT documented in this encounter Results * BACTERIAL CULTURE, URINE (01/26/2006 20:14 EDT) Specimen Description Urine [facility] Result 10,000 to 100,000 CFU/ml ESCHERICHIA COLI 10,000 to 100,000 CFU/ml LACTOBACILL US SPECIES [facility] Report Status Final [id number] [facility] 01/26/2006 20:1 4 EDT 01/26/2006 20:14 EDT Narrative Organism Antibiotic Method Susceptibility 10,000 to 100,000 cfu/ml escherichia coli Ampicillin SUSCEPTIBILITY (AGNES) >32 Resistant 10,000 to 100,000 cfu/ml escherichia coli Cefazolin SUSCEPTIBILITY (AGNES) 8 Susceptible 10,000 to 100,000 cfu/ml escherichia coli Gentamicin SUSCEPTIBILITY (AGNES) <=2 Susceptible 10,000 to 100,000 cfu/ml escherichia coli Trimethoprim-Sulfameth oxazole SUSCEPTIBILITY (AGNES) <=.5 Susceptible 10,000 to 100,000 cfu/ml escherichia coli Nitrofurantoin SUSCEPTIBILITY (AGNES) <=16 Susceptible 10,000 to 100,000 cfu/ml escherichia coli Tobramycin SUSCEPTIBILITY (AGNES) <=2 Susceptible 10,000 to 100,000 cfu/ml escherichia coli Amikacin SUSCEPTIBILITY (AGNES) <=8 Susceptible 10,000 to 100,000 cfu/ml escherichia coli Imipenem SUSCEPTIBILITY (AGNES) <=2 Susceptible 10,000 to 100,000 cfu/ml escherichia coli Piperacillin SUSCEPTIBILITY (AGNES) >128 Resistant 10,000 to 100,000 cfu/ml escherichia coli Ceftriaxone SUSCEPTIBILITY (AGNES) <=4 Susceptible Susceptibility interpretation change 10,000 to 100,000 cfu/ml escherichia coli Ciprofloxacin SUSCEPTIBILITY (AGNES) <=.5 Susceptible 10,000 to 100,000 cfu/ml escherichia coli Piperacillin Tazobactam SUSCEPTIBILITY (AGNES) 32/4 Intermediate Katie Oreilly MD MICROBIOLOGY - G ENERAL ORDERABLES [place] [address] [address] documented in this encounter Visit Diagnoses Not on filedocumented in this encounter
--- OUTSIDE RECORDS SUMMARY | 2024-07-27 12:51 | XMS_ITS | Encounter Summary ---
Author Organization [facility]ly [facility] [place] [address] Care Team Providers Care Bolt Maker Name Role Phone Gaudencio Scales DO Primary Care Provider [phone] Encounter Details Date Type Department Care Team (Late st Contact Info) Description 11/28/2023 External Results Emergency Department [facility] [place] [address] Social History Tobacco Use Types Packs/Day Years Used Date Smoking Tobacco: Former Cigarettes 1 40 0 11/17/1981 - 11/17/2021 Smokeless Tobacco: Never [facility] Utilities Answer Date Recorded In [...] a long term (including now)? No 11/29/2023 IPV Inpatient Questions [...] 8:40 AM EST Hospital Encounter Mammography at [place] [phone] Jr Fulton MD [facility] [place] [address] [place] [address] 07/30/2024 8:45 AM EST Appointment Mammography at [place] [phone] Jr Fulton MD [facility] [address] [place] [address] 07/30/2024 9:20 AM EST Hospital Encounter Mammography at [place] [phone] Jr Fulton MD [facility] [address] [place] [address] 07/30/2024 10:51 AM EST Hospital Encounter [facility] [place] [phone] Jr Fulton MD [facility] [place] [address] 07/30/2024 10:51 AM EST Anesthesia Event [facility] [place] [address] Megan Orona [place] [address] 07/30/2024 10:51 AM EST - 07/30/2024 1:11 PM EST Surgery Outpatient [facility] [place] [phone] Jr Fulton MD [facility] [place] [address] MASTECTOMY PARTIAL (WRVU 10.13) 08/22/2024 2:00 PM EST Office Visit General Surgery at [place] [phone] Cindy Pierce APRN [facility] [place] [address] 08/22/2024 3:00 PM EST Office Visit Hematology and Oncology at [place] [phone] Soo Lyn MD [facility] [place] [address] 08/27/2024 9:30 AM EST Scheduled View Only Radiation Oncology at [address] [phone] [address] [place] 08/27/2024 10:00 AM EST Office Visit Radiation Oncology at [address] [phone] Paradise Prado MD [facility] [place] [address] 2024 1:00 PM EDT Office Visit Cardiology at [address] [place] [phone] Ham Montenegro MD [facility] [place] [address] Scheduled Procedures Name Priority Associated Diagnoses Date/Ti [...] Procedure Name Priority Date/Time Associated Diagnosis Comments ECG SCAN Routine 11/28/2023 7:34 AM EDT documented in this encounter Results * Scan Doc: ECG (11/28/2023 7:34 AM EDT) Historical Provider MD REIS MGR SCAN EX T ORDR/RSLT documented in this encounter Visit Diagnoses Not on filedocumented in this encounter Care Teams Bolt Maker Relationship Specialty Start Date End Date Gaudencio Scales DO [address] [place] [address] PCP - General Family Medicine 11/28/23 documented as of this encounter
--- OUTSIDE RECORDS SUMMARY | 2024-07-27 12:51 | XMS_ITS | Encounter Summary ---
Author Organization Formerly [facility] [place] [address] Care Team Providers Care Remelt Pan Tank Operator Name Role Phone Gaudencio Scales Antoine VERGARA Primary Care Provider [phone] Reason for Visit * Auth/Cert (Routine) Specialty Diagnoses / Procedures Referred By Radha t Referred To Contact Diagnoses NSTEMI (non-ST elevated myocardial infarction) NSTEMI Procedures emerg alexi Emory Ross MD [facility] [place] [address] [facility] Referral ID Status Reason Start Date Expiration Date Visits Re quested Visits Authorized [id number] 1 1 Encounter Details Date Type Department Care Team (Late st Contact Info) Description 11/28/2023 3:20 PM EDT - 11/28/2023 4:20 PM EDT Surgery [place] [address] Ryder Hargrove MD [facility] [place] [address] CARDIAC CATHETERIZATION Social History Tobacco Use Types Packs/Day Years Used Date Smoking Tobacco: Former Cigarettes 1 40 0 11/17/1981 - 11/17/2021 Smokeless Tobacco: Never Tobacco Cessation:Counseling Given: Not Answered Alcohol Use Standard Drinks/Week Comments Not Currently 0 (1 standard drink = 0.6 oz pur e alcohol) [facility] Utilities Answer Date Recorded In the past 12 months has [employer] electric, gas, oil, or water company threatened [...] in a intermediate (including now)? No 11/29/2023 DH IPV Inpatient [...] Sign Reading Time Taken Comments Blood Pressure 170/92 11/28/2023 3:34 PM EDT Pulse 87 11/28/2023 3:02 PM EDT Temperature 36.7 ??C (98.1 ??F) 11/28/2023 2:00 PM ED T Respiratory Rate 24 11/28/2023 3:27 PM EDT Oxygen Saturation 100% 11/28/2023 3:34 PM EDT Inhaled Oxygen Concentration - - Weight 109.3 kg (240 lb 15.4 oz) 2023 11:05 AM EDT Height 167.6 cm (5' 6) 11/28/2023 11:0 5 AM EDT Body Mass Index 37.95 11/28/2023 11:05 AM EDT documented in this encounter Discharge Summaries * Arlin Jackson MD - 12/04/2023 8:16 AM EDT Discharge Summary Patient Name: Oksana Betancourt Patient Age: 58 y.o. Language: Malagasy Race: Choose not to Disclose Ethnicity: Choose [...] day - CHANGED: lasix switched to NEEDED. Sherrie villar added PRN for breathing. Inpatient Provider Contact Information: Arlin Jackson MD [phone] For questions regarding this document or issues relating to this hospitalization on the Medical Service, please contact your inpatient physician through the [facility] Lime [facility] . Issues afterhours and on weekends will [...] for comparison. See report for additional findings. [facility] 11/28/23 Conclusions: * Significant stenosis of the left main * Two vessel coronary artery disease (LAD and RCA) * Successful angioplasty of the proximal RCA lesion * Successful stent insertion of the ostial RCA lesion * See Dual Antiplatelet (DAPT) Recommendations above [facility] 12/02/23 Conclusions: * Obstructive disease of [...] triple vessel CAD s/p [place] in -03/2022 (with CRIS x1 to mid-RCA, CRIS x2 to ostial RCA, CRIS x1 to ostial LCX, and CRIS x1 to mid-LCX), severe s/p TAVR in 2021, baseline LBBB, HLD, HTN, Hodgkin lymphoma s/p radiation, CKD IIIb, bipolar disorder, COPD, and hypothyroidism who presented to OSH with nausea and SOB and was transferred to [facility] for high-risk NSTEMI. HPI: Oksana reports that [...] 20 mg daily. Oksana recently moved to [place] at the end of August to be closer to family. She lives alone but lives next door to her brother. She has a PCP here and recently established with a powder monkey (Evita Alejandro) in [facility]. She reportedly saw Dr. Alejandro within the past week for a routine visit; Oksana did not have any symptoms at that time. She was reportedly taken off ticagrelor at that time, but no changes were made to her diuretic regimen. She reports occasional LE edema. Ms. Betancourt has a significant cardiovascular history. She had an MD in 2021, which she says presented with [...] some point to avoid triple therapy. At [facility], she was hypoxic requiring initiation of BiPAP. ECG demonstrated LBBB, which is not new for her. ECG did not meet Sgarbossa criteria per [facility] synthetic department supervisor. Troponin was markedly elevated (6000s). Bedside POCUS showed LVEF 10-15%. Oksana was loaded with ASA, Plavix, and started on a heparin gtt. She was transferred to [facility] for high-risk NSTEMI. On arrival, Oksana reported [...] reassess for porcelain aorta. Patient returned to manufacturing laborer 12/01 for PCI to LAD and LM [...] who have questions please contact the health morning caregiver that requested your imaging first. Electronically signed by: Andrew Khoury MD, [facility] ([phone]), at 11/28/2023 2:[address] Chest wo [...] who have questions please contact the health morning caregiver that requested your imaging first. Cardiac Catheterization (Exam End: 11/28/2023 5:12 PM) Narrative [facility] Cardiac Catheterization/Intervention Report Patient Name: Oksana Betancourt Procedure Date: 11/28/2023 A #: [id number] Primary Physician: Ryder Hargrove Case #: [id number] File Name: [id number] Catheterization Order Number: [id number] [facility] [employer] [facility] Final Report [place], [place] Patient Name: Oksana Betancourt ID#: [id number] : 1965 Procedure Date: November 28, 2023 [...] was designated as ASA Class III. The [facility] clinical frailty scale is 5: Mildly Frail. Diagnostic Tests: Prior Coronary Angiography: LV ejection fraction within 6 months is 50%. Electrocardiography: EKG was assessed by ECG. EKG was Normal. Medications Prior to Procedure: Ranolazine, Aspirin, Calcium Channel Blocking Agent, Long Acting Nitrate and Statin. Indications for Diagnostic Cath: The priority of the diagnostic procedure was Urgent. The indication for the manufacturing laborer visit is ACS less than or equal [...] atmospheres. A premounted 3.50 x 22 mm Arcata Breckinridge (CRIS) was deployed with a maximum inflation [...] dose administered prior to arrival in the manufacturing laborer. Recommended anti-platelet/anti-thrombotic regimen: Continue aspirin 81 mg daily for indefinitely. Continue clopidogrel 75 mg daily for indefinitely. These recommendations are made at the time of the intervention. Patient and provider preferences or a changing clinical situation may require modification of this regimen. Consult [facility] Interventional Cardiology for questions. Conclusions: * Significant [...] Catheterization (Exam End: 12/02/2023 12:28 PM) Narrative [facility] Cardiac Catheterization/Intervention Report Patient Name: Oksana Betancourt Procedure Date: 12/02/2023 A #: [id number] Primary Physician: Ryder Hargrove Case #: [id number] File Name: [id number] Catheterization Order Number: [id number] [facility] Final Report [place], [place] Patient Name: Oksana Betancourt ID#: [id number] : 1965 Procedure Date: December 02, 2023 [...] was designated as ASA Class III. The [facility] clinical frailty scale is 5: Mildly Frail. Diagnostic Tests: Prior Coronary Angiography: LV ejection fraction within 6 months is 44%. Electrocardiography: EKG was assessed by ECG. EKG was Normal. Medications Prior to Procedure: Ranolazine, Aspirin, Beta Krystal, Long Acting Nitrate and Statin. Indications for Diagnostic Cath: The priority of the diagnostic procedure was Urgent. The indication for the manufacturing laborer visit is ACS greater than 24 hrs. [...] atmospheres. A premounted 3.50 x 12 mm Arcata Breckinridge (CRIS) was deployed with a maximum inflation [...] dose administered prior to arrival in the manufacturing laborer. Recommended anti-platelet/anti-thrombotic regimen: Continue aspirin 81 mg [...] may require modification of this regimen. Consult [facility] Interventional Cardiology for questions. Conclusions: * Obstructive [...] PCI of the LM/LAD/LCX bifurcation. A 6 north korean EBU 3.0 guide was used to engage [...] placed a 3.5 x 12 mm [place] Breckinridge CRIS to the LAD landing just proximal [...] 12 months. - Please follow-up with your powder monkey (Dr. 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 [...] appointments: During 8am-5pm Tuesday through Tuesday call [phone] to speak with a nurse in the cardiology clinic All other times call [phone] and ask to speak to the synthetic department supervisor environmental maintenance worker. Return to work: One week Driving: No driving for 48 hours after catheterization. Follow up Appointments: PCP Gaudencio Scales DO [phone] December 09, 2023 at 11:15 am - please get labs done with PCP Cardiology Dr. Alejandro at [facility] December 26, 2023 at 9:40 am Home oxygen therapy: N/A Arrangements for VNA/home care: none General Instructions None Future Appointments and Orders Future Orders Complete By Expires Basic Metabolic Panel (non-fasting) [LAB15 Custom] 12/11/2023 06/11/2024 Process Instructions: Scheduling Instructions: Comments: Questions: Hemogram [[id number] Custom] 12/11/2023 06/11/2024 Process Instructions: Scheduling Instructions: Comments: Questions: Magnesium [OPP706 Custom] 12/11/2023 06/11/2024 Process Instructions: Scheduling Instructions: Comments: Questions: Phosphorus [[id number] Custom] 12/11/2023 06/11/2024 Process Instructions: Scheduling Instructions: Comments: Questions: Nebulizer (Outpatient) [EQ179 Custom] As directed Process Instructions: Scheduling Instructions: Questions: Vendor Name/Contact information: Date of related [id number] encounter: Primary Indication (to support need for nebulizer): COPD Secondary indication (optional): Compressor: Desktop Small Volume Nebulizer (e.g., Drive Power Neb Ultra, InnoSpire Essence or Alondra Vios LC Sprint) Supplies: Referral to Cardiac Rehab [PXQ839 Custom] As directed Process Instructions: If no progress note charted, please enter Clinical details in comments. Scheduling Instructions: Questions: My question or request is: NSTEMI, staged PCI- cardiac rehab at [facility] Referral to Cardiology [REF12 Custom] As directed Process Instructions: If no progress note charted, please enter Clinical details in comments. Scheduling Instructions: Questions: My question or request is: NSTEMI s/p staged PCI Discharge References/Attachments None Greater than 30 minutes was spent on this discharge including documentation, noad-ic-swee time withthe patient, patient education, circuit recorder, coordination with pharmacy and other patient [...] 12 months. - Please follow-up with your powder monkey (Dr. 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 [...] appointments: During 8am-5pm Tuesday through Tuesday call [phone] to speak with a nurse in the cardiology clinic All other times call [phone] and ask to speak to the synthetic department supervisor environmental maintenance worker. Return to work: One week Driving: No driving for 48 hours after catheterization. Follow up Appointments: PCP Gaudencio Scales DO [phone] December 09, 2023 at 11:15 am - please get labs done with PCP Cardiology Dr. Alejandro at [facility] December 26, 2023 at 9:40 am Home [...] to: discuss discharge planning needs. provide the [facility], Office of Care Management letter from the Casting And Pasting Supervisor pertaining to rehab referrals. provide a letter describing our affiliations within the [facility] and educate about their right to choose where referrals are sent. provide a list of Home Health Agencies / Durable Medical Equipment vendors which serve their preferred geographic area. provided patient with [facility] Star Quality Rating handout. They have requested referrals to: [facility] (Resp Supplies) Per the provider, the patient needs an nebulizer. Note routed to a Front End Alignment Specialist who will communicate referrals to facilities and provide any required information. * Angelique Michaels RN - 12/04/2023 2:06 PM EDT Discharge instructions reviewed with PT & family, all verbalize understanding. Medications reviewed. Iv and Tele discontinued. Discharged to home * Arlin Jackson MD - 2023 4:32 PM EDT CV HOSPITALIST 1 - [facility] DAILY PROGRESS NOTE Page [phone] to reach a provider 11/04 Admit Date: [...] for comparison. See report for additional findings. [facility] 11/28/23 Coronary Angiography: Anatomically normal right [...] a single 3.5 x 22 mm [place] Breckinridge CRIS. - High grade distal LM and [...] triple vessel CAD s/p [place] in -03/2022 (with CRIS x1 to mid-RCA, [...] 23 PT: OT: PCP Gaudencio Scales DO [phone] Arlin Jackson MD 2023 * Arlin Jackson MD - 12/02/2023 10:49 AM EDT CV HOSPITALIST 1 - [facility] DAILY PROGRESS NOTE Page [phone] to reach a provider 11/04 Admit Date: [...] Resultsshow sinus HR 70-90s. Imaging: TTE on 3/11/24 -Left ventricular systolic function is mildly reduced. [...] for comparison. See report for additional findings. [facility] 11/28/23 Coronary Angiography: Anatomically normal right [...] s/p a single 3.5 x 22 mm Arc[place] Breckinridge CRIS. - High grade distal LM and [...] triple vessel CAD s/p staged [place] in -03/2022 (with CRIS x1 to mid-RCA, CRIS x2 to ostial RCA, CRIS x1 to ostial LCX, and CRIS x1 to mid-LCX), severe s/p TAVR in 2021, baseline LBBB, HLD, HTN, Hodgkin lymphoma s/p radiation, CKD IIIb, bipolar disorder, COPD, and hypothyroidism on Hospital Day1 for high-risk NSTEMI. In [facility]- 3/12: Underwent cath yesterday, now s/p stent to [...] RCA on 11/28/23. Pt planned for repeat [facility] to PCI L sided coronaries tmrw [...] PRN per chest pain protocol - s/p C 12/01 with PCI of LAD and LM [...] Cardiopulmonary Resuscitation - Inpatient Disposition: Discharge Location: [facility] Basic Mobility Raw Score: 23 PT: OT: PCP Gaudencio Scales, Arlin Jackson MD 12/02/2023 * Jose Souza DO - 12/01/2023 8:46 AM EDT HOSPITALIST 1 - [facility] DAILY PROGRESS NOTE Page [phone] to reach a provider 11/04 Admit Date: 11/28/2023 Encounter Date December 01, 2023 Anticipated Discharge Date: 2023 Hospital Day: 3 Active Hospital Problems Diagnosis NSTEMI (non-ST elevated myocardial infarction) Resolved Hospital Problems No resolved problems to display. 24 Hour Events/Subjective: Transfer from [facility] on 11/29/23 -Pt doing well today, notes significant improvement in SOB and heaviness prev feeling on L side. Denies CP, palpitations, chest pressure, dizziness, edema -Understands plan for [facility] tmrw Medications: Scheduled Meds: metoproloL tartrate [...] with new LBBB (admission EKG, prior to [facility]) Telemetry: I have personally reviewed and [...] for comparison. See report for additional findings. [facility] 11/28/23 Coronary Angiography: Anatomically normal right [...] s/p a single 3.5 x 22 mm Arcata Breckinridge CRIS. - High grade distal LM and [...] triple vessel CAD s/[place]03/20[place] (with CRIS x1 to mid-RCA, [...] for PCI to LM and LAD tomorrow, [facility] deferred today d/t cath schedule, stability of pt, and continuity of interventional specialist as Dr. Hargrove is on schedule for manufacturing laborer tomorrow. Will continue to hold diuretic today [...] RCA on 11/28/23. Pt planned for repeat [facility] to PCI L sided coronaries tmrw [...] chest pain protocol - NPO PM for [facility] tmrw of LAD and LCA #Acute HFmEF (EF 44%) Monitor for ONOFRE as last [facility] was on 11/28/23 - BNP 11,000 on admission - Diuresed with IV lasix in [facility] - Diuretics held yesterday and today given jonathan and plan for [facility] tmrw - Metoprolol 12.5 mg Q6H [...] PRN Diet: Daily Healthy Menu Choices/Cardiac diet ([facility]-Diet) NPO diet (Give Meds) DVT Prophylaxis: DOAC Code status: Attempt Cardiopulmonary Resuscitation - Inpatient Disposition: Discharge Location: [facility] Basic Mobility Raw Score: 23 PT: OT: PCP Gaudencio Scales DO [phone] Jose Souza DO 12/01/2023 * Jose Souza DO - 11/30/2023 5:07 PM EDT CV HOSPITALIST 1 - [facility] DAILY PROGRESS NOTE Page [phone] to reach a provider 11/04 Admit Date: 11/28/2023 Encounter Date November 30, 2023 Anticipated Discharge Date: 12/02/2023 Hospital Day: 2 Active Hospital Problems Diagnosis NSTEMI (non-ST elevated myocardial infarction) Resolved Hospital Problems No resolved problems to display. 24 Hour Events/Subjective: Transfer from [facility] on 11/29/23 -Pt doing well today, notes some SOB and heaviness feeling on L side but states its improved since arrival. Denies CP, palpitations, chest pressure, dizziness, edema -Understands plan for [facility] tmrw given kidney fx is reduced [...] with new LBBB (admission EKG, prior to [facility]) Telemetry: I have personally reviewed and interpreted the telemetry from the last 24 hours. Resultsshow NSR HR 80-90s. Imaging: No results found for this visit on 11/28/23 (from the past 24 hour(s)). TTE showed LVEF of 44% with RCA WMA, normal RV function, well functioning CoreValve TAVR, moderate MR [facility]- cardiac cath, found to have 90% [...] a single 3.5 x 22 mm [place]ridge CRIS. - High grade distal LM and [...] triple vessel CAD s/p staged PCI [place] in -03/2022 (with CRIS x1 to mid-RCA, [...] PRN Diet: Daily Healthy Menu Choices/Cardiac diet ([facility]-Diet) NPO diet (Give Meds) DVT Prophylaxis: DOAC Code status: Attempt Cardiopulmonary Resuscitation - Inpatient Disposition: Discharge Location: [facility] Basic Mobility Raw Score: 23 PT: OT: PCP Gaudencio Scales DO [phone] Jose Souza DO 11/30/2023 * Marie Ho [...] 3:13 PM EDT CV HOSPITALIST 1 - [facility] DAILY PROGRESS NOTE Page [phone] to reach a provider 11/04 Admit Date: [...] chest pressure, dizziness, edema -Understands plan for [facility] tmrw Medications: Scheduled Meds: metoproloL tartrate [...] with new LBBB (admission EKG, prior to [facility]) Telemetry: I have personally reviewed and interpreted the telemetry from the last 24 hours. Resultsshow NSR HR 80-90s. Imaging: No results found for this visit on 11/28/23 (from the past 24 hour(s)). TTE showed LVEF of 44% with RCA WMA, normal RV function, well functioning CoreValve TAVR, moderate MR [facility]- cardiac cath, found to have 90% [...] s/p a single 3.5 x 22 mm [place] Breckinridge CRIS. - High grade distal LM and [...] triple vessel CAD s/p staged [place]03/[place] (with CRIS x1 to mid-RCA, [...] around 1700 and downtrendedPt planned for repeat [facility] to PCI L sided coronaries tmrw, [...] triple vessel CAD s/p staged PCI [place] in -03/2022 (with CRIS x1 to mid-RCA, [...] Gas) No results found for: PHART, PO2ART, QGQ3KDX, UXR6BWM Microbiology: Microbiology Results (Last 30 days) No [...] who have questions please contact the health morning caregiver that requested your imaging first. Electronically signed by: Andrew Khoury MD, [facility] ([phone]), at 11/28/2023 2:04 PM Medications Scheduled Meds: [...] triple vessel CAD s/p staged PCI [place] in (with CRIS x1 to mid-RCA, CRIS x2 to ostial RCA, CRIS x1 to ostial LCX, and CRIS x1 to mid-LCX), severe s/p TAVR in 2021, baseline LBBB, HLD, HTN, Hodgkin lymphoma s/p radiation, CKD IIIb, bipolar disorder, COPD, and hypothyroidism who presented to OSH with nausea and SOB and was transferred to [facility] for high-risk NSTEMI. 11/28: Underwent cath yesterday, [...] Valderrama MD, MPH Internal Medicine, PGY-1 Cardiology, [facility] 11/29/23 7:08 AM Cardiology Attending Note [...] MD, FACP, FACC Section of Cardiovascular Medicine [facility] Doctor Of Medicineshooter's helper [facility] [employer] [facility] This patient meets or has met medical [...] triple vessel CAD s/p staged [place] in (with CRIS x1 to mid-RCA, CRIS x2 to ostial RCA, CRIS x1 to ostial LCX, and CRIS x1 to mid-LCX), severe s/p TAVR in 2021, baseline LBBB, HLD, HTN, Hodgkin lymphoma s/p radiation, CKD IIIb, bipolar disorder, COPD, and hypothyroidism who presented to OSH with nausea and SOB and was transferred to [facility] for high-risk NSTEMI. HPI: Oksana reports that [...] 20 mg daily. Oksana recently moved to [place] from [place] at the end of August to be closer to family. She lives alone but lives next door to her brother. She has a PCP here and recently established with a powder monkey (Evita Alejandro) in [facility]. She reportedly saw Dr. Alejandro within the past week for a routine visit; Oksana did not have any symptoms at that time. She was reportedly taken off ticagrelor at that time, but no changes were made to her diuretic regimen. She reports occasional LE edema. Ms. Betancourt has a significant cardiovascular history. She had an MD in 2021, which she says presented with [...] some point to avoid triple therapy. At [facility], she was hypoxic requiring initiation of BiPAP. ECG demonstrated LBBB, which is not new for her. ECG did not meet Sgarbossa criteria per [facility] synthetic department supervisor. Troponin was markedly elevated (6000s). Bedside POCUS showed LVEF 10-15%. Oksana was loaded with ASA, Plavix, and started on a heparin gtt. She was transferred to [facility] for high-risk NSTEMI. On arrival, Oksana reported [...] [Nov] pantoprazole EC 40 mg Oral Daily [NOV [...] triple vessel CAD s/p staged [place] -03/2022 (with CRIS x1 to mid-RCA, CRIS x2 to ostial RCA, CRIS x1 to ostial LCX, and CRIS x1 to mid-LCX), severe s/p TAVR in 2021, baseline LBBB, HLD, HTN, Hodgkin lymphoma s/p radiation, CKD IIIb, bipolar disorder, COPD, and hypothyroidism who presented to OSH with nausea and SOB and was transferred to [facility] for high-risk NSTEMI. Plan for urgent [facility] for NSTEMI. Given her known triple-vessel disease and multiple stents, this will likely be a very challenging intervention. It is possible that one of her stents has re-stenosed or thrombosed. 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 Will follow manufacturing laborer results and determine DAPT planning based upon findings. Continuing heparin gtt until manufacturing laborer. She is on isosorbide mononitrite and ranolazine [...] at OSH reportedly showed LVEF 10-15% - [facility] today - Heparin gtt - Atorvastatin 40 mg daily - DAPT pending manufacturing laborer findings - Likely ASA and ticagrelor based [...] triple vessel CAD s/[place] in [place] 03/2022 (with CRIS x1 tomid-RCA, CRIS x2 to ostial RCA, CRIS x1 to ostial LCX, and CRIS x1 to mid-LCX), severe s/p TAVR in 2021, baseline LBBB, HLD, HTN, Hodgkin lymphoma s/p radiation, CKD IIIb, bipolar disorder, COPD, andhypothyroidism who presented to OSH with nausea and SOB and was transferred to [facility] for high-risk NSTEMI. Cardiac catheterization LMCA: 90% [...] Post Cardiac cath note Oksana [employer] [id number] 57 y.o. female Last value Range [...] Patient on heparin gtt. Going back to manufacturing laborer tomorrow. Has done some light walking in [...] in an outpatient cardiac rehabilitation program at [facility] was discussed. Patient agrees to a referral [...] Admitted From: Transfer from another hospital Location: [facility] Reason for Hospitalization: heart attack Past medical History: No past medical history on file. Hospitalizations Within the Past 30 Days: no previous admission in last 30 days Current Decision-Making Capacity: Self If AD's have not been completed the following surrogate would be surrogate decision maker per [place] surrogate decision making law. (Only good for 180 days) Any patient receiving care in [place] must abide by [place] law. The hierarchy for surrogate decision making [...] (i) The agent with financial power of supervisor metal furniture fabrication or a conservator appointed in accordance with [...] have you lived?: 2 (previously lived in [place], has been in current apartment for 3 monhts) In the last 12 months, was there a time when you did not have a steady place to sleep or slept in [facility] (including now)?: No In the past 12 months has the electric, gas, oil, or water [employer] threatened to shut off services in your [...] raised toilet seat Home Address confirmed as: [address] [place] [address] [address] [facility] [address] Social & Family Supports: All names listed [...] and [employer]) Preferred Pharmacy: No Pharmacies Listed [place] Status: Patient is a : No Primary Care [facility] [address], [place] [address] Patient/Caregiver Goals of Treatment: home when MR [...] Operative Note Patient Name: Oksana Betancourt : [id number] MR#: [id number] Case Date: 11/28/2023 Surgeon: Surgeon(s) and Role: * Ryder Hargrove MD - Primary * Faustino Hernández MD - Fellow - Assisting Preoperative diagnosis: NSTEMI Postoperative diagnosis: NSTEMI Preliminary Cardiac Catheterization Procedure Note: Procedure(s) performed: Right Radial Access - 6 Slender - Right Femoral Access ultrasound guided - 6 [place] Coronary Angiography Left Heart Cath PCI-Stent IVUS [...] s/p a single 3.5 x 22 mm [place] Breckinridge CRIS. - High grade distal LM and [...] EVALUATION NOTE: OUTCOME SUMMARY: Pt admitted from [facility]. A&O upon arrival. C/o SOB, placed on bipap. Heparin gtt maintained. Diuresed with IVP lasix (see eMAR). Sent to manufacturing laborer in afternoon. PLAN MOVING FORWARD: NPO @ [place] for cath * Plan of Care - [...] last 7068 hours. Previous Catheterization Performed in [place]. She reports 5 stents placed previously. The [...] 8:40 AM EST Hospital En[place] [address] Jr Fulton MD [facility] [address] [address] 07/30/2024 8:45 AM EST Appointment [place] [phone] Jr Fulton MD [facility] [address] [address] 07/30/2024 9:20 AM EST Hospital Encounter [place] [phone] Jr Fulton MD [facility] [place] [address] 07/30/2024 10:51 AM EST Hospital Encounter [place] [phone] Jr Fulton MD [facility] [place] [address] 07/30/2024 10:51 AM EST Anesthesia Event [facility] [address] Megan Oron[place] [address] 07/30/2024 10:51 AM EST - 07/30/2024 1:11 PM EST Surgery Outpatient [place] [address] Jr Fulton MD [facility] [place] [address] MASTECTOMY PARTIAL (WRVU 10.13) 08/22/2024 2:00 PM EST Office [place] [address] Cindy Pierce APRN [facility] [place] [address] 08/22/2024 3:00 PM EST Office Visit Hematology and Oncology at [place] [phone] Soo Lyn MD [facility] [place] [address] 08/27/2024 9:30 AM EST Scheduled View Only Radiation Oncology at [address] [phone] St Josr Whitley 08/27/2024 10:00 AM EST Office Visit Radiation Oncology at [address] [phone] Paradise Prado MD [facility] [place] [address] 2024 1:00 PM EDT Office Visit Cardiology at [address] [place] [address] Ham Montenegro MD [facility] [place] [address] Scheduled Orders Name Type Priority Associated Diagnoses [...] 2:43 AM EDT) Neutrophil % 46.0 % [facility] Neutrophil Absolute 4.20 1.70 - 6.10 x10(3)/mc L [facility] Lymph % 40.9 % [facility] Lymphocytes Abs 3.7(H) 0.9 - 3.2 x10(3)/mc L [facility] Monocyte % 8.2 % [facility] Monocyte Abs 0.8 0.3 - 0.9 x10(3)/mc L [facility] Eos % 4.3 % [facility] Eosinophils Abs 0.4 0.0 - 0.4 x10(3)/mc L [facility] Basophil % 0.2 % [facility] Baso Absolute 0.0 0.0 - 0.1 x10(3)/mc L [facility] Immature Gran % 0.40 % [facility] Comment: Immature granulocytes(IG's)percentage and absolute count will include metamyelocytes, myelocytes, and promyelocytes. Blood smears from CBCs yielding IG's will be scanned manually for concordance. If this scan disagrees with the automated IG or if promyelocytes are noted, a manual differential will be performed. Immature Gran Absolute 0.04 0.00 - 0.04 x10(3)/mc L [facility] Blood 12/04/2023 2:43 AM EDT 12/04/2023 3:15 AM EDT Narrative Resulting Agency Comment Spec In Lab Corinne Saba MD HEMATOLOGY ORDERAB LES Performing Organization Address City/[facility]/ZIP Co de Phone Number [facility] [place] [address] * (ABNORMAL) Hemogram (12/04/2023 2:43 AM EDT) White Blood Cell 9.1 4.0 - 9.5 x10(3)/mc L [facility] Red Blood Cell 3.29(L) 4.00 - 5.21 x10(6)/mc L [facility] Hemoglobin 10.0(L) 11.7 - 15.5 g/dL [facility] Hematocrit 31.3(L) 35.7 - 45.8 % [facility] Mean Cell Volume 95.1(H) 82.6 - 94.4 fL [facility] Mean Cell Hemoglobin 30.4 27.1 - 32.0 pg [facility] Mean Cell Hemoglobin Concentration 31.9 31.7 - 35.0 g/dL [facility] Platelet 377(H) 145 - 357 x10(3)/mc L [facility] RDW Standard Deviation 53.5(H) 37.0 - 46.0 fL [facility] RDW coefficient of variation 15.3(H) 11.5 - 14.1 % [facility] Mean Platelet Volume 11.5 7.6 - 12.9 fL [facility] NRBC% auto 0.0 % [facility] NRBC Absolute 0.000 0.000 - 0.000 x10(3)/mc L [facility] Blood 12/04/2023 2:43 AM EDT 12/04/2023 3:15 AM EDT Narrative Resulting Agency Comment Spec In Lab Corinne Saba MD HEMATOLOGY ORDERAB LES Performing Organization Address City/[facility] Co de Phone Number [facility] [place] [address] * (ABNORMAL) Basic Metabolic Panel (non-fasting) (12/04/2023 2:43 AM EDT) Glucose 120 65 - 199 mg/dL [facility] Comment:Diabetes: >=200 mg/d L plus symptoms Blood Urea Nitrogen 13 8 - 18 mg/dL [facility] Creatinine 1.36(H) 0.70 - 1.20 mg/dL [facility] Sodium 142 135 - 145 mmol/L [facility] Potassium 4.6 3.5 - 5.0 mmol/L [facility] Comment: Please note: ??Patients with WBC >100,000 may have falsely elevated Potassium levels. ??For accurate Potassium quantification in these patients send serum separator tube (gold top) for subsequent determinations. ??Contact the Clinical Chemistry Laboratory if there are any questions. Chloride 105 98 - 107 mmol/L [facility] Carbon Dioxide 27 22 - 31 mmol/L [facility] Anion Gap 10 5 - 15 mmol/L [facility] Calcium 9.5 8.5 - 10.5 mg/dL [facility] Est Glomerular Filtration Rate 45(L) >=60 mL/min/1. 73 m?? [facility] Comment: This patient's estimated GFR was [...] Lab Emory Ross MD CHEMISTRY ORDER LAKEISHA [facility] [place] [address] * Magnesium (12/04/2023 2:43 AM EDT) Pathologist [facility] Magnesium 0.99 0.69 - 1.07 mmol/L [facility] Blood 12/04/2023 2:43 AM EDT 12/04/2023 3:15 AM EDT Narrative Resulting Agency Comment Spec In Lab Emory Ross MD CHEMISTRY ORDER LAKEISHA Performing Organization Address City/[facility]/ZIP Co de Phone Number [facility] [place] [address] * (ABNORMAL) Phosphorus (12/04/2023 2:43 AM EDT) Pathologist [facility] Phosphorus 5.2(H) 2.5 - 4.5 mg/dL [facility] Blood 12/04/2023 2:43 AM EDT 12/04/2023 3:15 AM EDT Narrative Resulting Agency Comment Spec In Lab Emory Ross MD CHEMISTRY ORDER LAKEISHA Performing Organization Address City/[facility] Co de Phone Number [facility] [place] [address] * (ABNORMAL) Differential, Automated (2023 3:53 AM EDT) [facility] Neutrophil % 60.6 % [facility] Neutrophil Absolute 6.57(H) 1.70 - 6.10 x10(3)/mc L [facility] Lymph % 29.2 % [facility] Lymphocytes Abs 3.2 0.9 - 3.2 x10(3)/mc L [facility] Monocyte % 6.7 % [facility] Monocyte Abs 0.7 0.3 - 0.9 x10(3)/mc L [facility] Eos % 3.0 % [facility] Eosinophils Abs 0.3 0.0 - 0.4 x10(3)/mc L [facility] Basophil % 0.2 % [facility] Baso Absolute 0.0 0.0 - 0.1 x10(3)/mc L [facility] Immature Gran % 0.30 % [facility] Comment: Immature granulocytes(IG's)percentage and absolute count will include metamyelocytes, myelocytes, and promyelocytes. Blood smears from CBCs yielding IG's will be scanned manually for concordance. If this scan disagrees with the automated IG or if promyelocytes are noted, a manual differential will be performed. Immature Gran Absolute 0.03 0.00 - 0.04 x10(3)/mc L [facility] Blood 2023 3:53 AM EDT 2023 4:04 AM EDT Narrative Resulting Agency Comment Spec In Lab Corinne Saba MD HEMATOLOGY ORDERAB LES Performing Organization Address City/State/[facility] Co de Phone Number [facility] [place] [address] * (ABNORMAL) Hemogram (2023 3:53 AM EDT) White Blood Cell 10.8(H) 4.0 - 9.5 x10(3)/mc L [facility] Red Blood Cell 3.43(L) 4.00 - 5.21 x10(6)/mc L [facility] Hemoglobin 10.4(L) 11.7 - 15.5 g/dL [facility] Hematocrit 32.7(L) 35.7 - 45.8 % [facility] Mean Cell Volume 95.3(H) 82.6 - 94.4 fL [facility] Mean Cell Hemoglobin 30.3 27.1 - 32.0 pg [facility] Mean Cell Hemoglobin Concentration 31.8 31.7 - 35.0 g/dL [facility] Platelet 367(H) 145 - 357 x10(3)/mc L [facility] RDW Standard Deviation 53.4(H) 37.0 - 46.0 fL [facility] RDW coefficient of variation 15.2(H) 11.5 - 14.1 % [facility] Mean Platelet Volume 11.8 7.6 - 12.9 fL [facility] NRBC% auto 0.0 % [facility] NRBC Absolute 0.000 0.000 - 0.000 x10(3)/mc L [facility] Blood 2023 3:53 AM EDT 2023 4:04 AM EDT Narrative Resulting Agency Comment Spec In Lab Corinne Saba MD HEMATOLOGY ORDERAB LES [facility] [place] [address] * (ABNORMAL) Basic Metabolic Panel (non-fasting) (2023 3:53 AM EDT) Glucose 99 65 - 199 mg/dL [facility] Comment:Diabetes: >=200 mg/d L plus symptoms Blood Urea Nitrogen 14 8 - 18 mg/dL [facility] Creatinine 1.26(H) 0.70 - 1.20 mg/dL [facility] Sodium 139 135 - 145 mmol/L [facility] Potassium 3.8 3.5 - 5.0 mmol/L [facility] Comment: Please note: ??Patients with WBC >100,000 may have falsely elevated Potassium levels. ??For accurate Potassium quantification in these patients send serum separator tube (gold top) for subsequent determinations. ??Contact the Clinical Chemistry Laboratory if there are any questions. Chloride 102 98 - 107 mmol/L [facility] Carbon Dioxide 24 22 - 31 mmol/L [facility] Anion Gap 13 5 - 15 mmol/L [facility] Calcium 9.2 8.5 - 10.5 mg/dL [facility] Est Glomerular Filtration Rate 49(L) >=60 mL/min/1. 73 m?? [facility] Comment: This patient's estimated GFR was [...] Lab Emory Ross MD CHEMISTRY ORDER LAKEISHA [facility] [place] [address] * Magnesium (2023 3:53 AM EDT) Magnesium 0.90 0.69 - 1.07 mmol/L [facility] Blood 2023 3:53 AM EDT 2023 4:04 AM EDT Narrative Resulting Agency Comment Spec In Lab Emory Ross MD CHEMISTRY ORDER LAKEISHA Performing Organization Address City/[facility] Co de Phone Number [facility] [place] [address] * Phosphorus (2023 3:53 AM EDT) Phosphorus 4.5 2.5 - 4.5 mg/dL [facility] Blood 2023 3:53 AM EDT 2023 4:04 AM EDT Narrative Resulting Agency Comment Spec In Lab Emory Ross MD CHEMISTRY ORDER LAKEISHA Performing Organization Address City/[facility] Co de Phone Number [facility] [place] [address] * EKG 12 Lead (12/02/2023 12:46 PM EDT) Ventricular rate 88 BPM MUSE SYSTEM Atrial Rate 88 BPM MUSE SYSTEM P-R Interval 136 ms MUSE SYSTEM QRS Duration 138 ms MUSE SYSTEM Q-T Interval 414 ms MUSE SYSTEM QTC Calculated (Bezet) 500 ms MUSE SYSTEM Calculated P [place] 67 degrees MUSE SYSTEM Calculated R [place] 39 degrees MUSE SYSTEM Calculated T [place] 71 degrees MUSE SYSTEM INTERPRETATION Normal sinus rhythm Possible Left atrial enlargement Left bundle branch block Abnormal ECG When compared with ECG of 28-NOV-2023 17:50, No significant change was found Confirmed by Solo Rausch ([id number]) on 12/06/2023 7:52:33 PM MUSE SYSTEM 12/02/2023 12:4 6 PM EDT 12/06/2023 7:52 PM EDT Arlin Jackson MD ECG ORDERABLES MUSE SYSTEM * CARDIAC CATHETERIZATION (12/02/2023 12:28 PM EDT) Anatomical Region Laterality Modality Other Narrative 12/02/2023 10:12 PM EDT ?[facility] ? Cardiac Catheterization/Intervention Report ? Patient Name: Asia, Oksana A. ? Procedure Date: 12/02/2023 ? A #: [id number] ? Primary Physician: Ryder Hargrove ? Case #: [id number] ? File Name: [id number] ? Catheterization Order Number: [id number] ? [facility] ? Final Report [place], [place] ? Patient Name: ? Oksana ARyan Betancourt ?ID#: ?[id number] ? : ?1965 ? Procedure Date: ? [...] was designated as ASA Class ?III. The [facility] clinical frailty scale is 5: Mildly [...] procedure was Urgent. The indication for ?the manufacturing laborer visit is ACS greater than 24 hrs. [...] A premounted 3.50 x 12 mm [place] Bre[place] (CRIS) was deployed ? with a maximum [...] dose administered prior to arrival in the manufacturing laborer. ?Recommended anti-platelet/anti-thrombotic regimen: ?Continue aspirin 81 mg [...] may require ?modification of this regimen. Consult [facility] Interventional Cardiology for ?questions. ? Conclusions: ?* [...] PCI of the LM/LAD/LCX bifurcation. A 6 north korean EBU 3.0 ?guide was used to engage [...] placed a 3.5 x 12 mm [place] CRIS to the LAD landing just ?proximal [...] Procedure Note Ryder Hargrove MD - 01/25/2024 [facility] Cardiac Catheterization/Intervention Report Patient Name: Oksana Betancourt Procedure Date: 12/02/2023 A #: [id number] Primary Physician: Ryder Hargrove Case #: [id number] File Name: [id number] Catheterization Order Number: [id number] [facility] FinalReport [place], [place] Patient Name: Oksana Betancourt ID#:[id number] :1965 Procedure Date: December 02, 2023 Case [...] patient was designated as ASAClass III. The [facility] clinical frailty scale is 5: Mildly Frail. Diagnostic Tests: Prior Coronary Angiography: LV ejection fraction within 6 months is 44%. Electrocardiography: EKG was assessed by ECG. EKG was Normal. Medications Prior to Procedure: Ranolazine, Aspirin, Beta Krystal, Long Acting Nitrate andStatin. Indications for Diagnostic Cath: The priority of the diagnostic procedure was Urgent. The indicationfor the manufacturing laborer visit is ACS greater than 24 hrs. [...] The lesion was predilated with a 2.50mm WHORTDB28 MM balloon with a maximum inflation pressure of 12atmospheres. A premounted 3.50 x 12 mm [place] (CRIS) wasdeployed with a maximum inflation pressure [...] dose administered prior to arrival in the manufacturing laborer. Recommended anti-platelet/anti-thrombotic regimen: Continue aspirin 81 mg daily for 1 month then stop. Restart kmwwius58 mg daily in 12 months and continue unless contraindicated. Continue clopidogrel 75 mg daily for 12 months then stop. Continue apixaban 5 mg twice daily for indefinitely. These recommendations are made at the time of the intervention.Patient and provider preferences or a changing clinical situation mayrequire modification of this regimen. Consult [facility] Interventional Cardiologyfor questions. Conclusions: * Obstructive disease [...] PCI of the LM/LAD/LCX bifurcation. A 6 [place] EBU3.0 guide was used to engage the LM through the Evolut valve frame. TheLAD And LCX were wired with workhorse wires. The LAD was pre-dilated andIVUS was performed to the LCX and LAD which showed stents in the LCXostial vessel to mid vessel with a small area of unstented area between the stents. We placed a 3.5 x 12 mm [place] CRIS to the LAD landingjust proximal to [...] 3:09 AM EDT) Neutrophil % 51.4 % [facility] Neutrophil Absolute 5.53 1.70 - 6.10 x10(3)/mc L [facility] Lymph % 37.4 % [facility] Lymphocytes Abs 4.0(H) 0.9 - 3.2 x10(3)/[facility] Monocyte % 8.6 % [facility] Monocyte Abs 0.9 0.3 - 0.9 x10(3)/mc [facility] Eos % 2.0 % [facility] Eosinophils Abs 0.2 0.0 - 0.4 x10(3)/[facility] Basophil % 0.3 % [facility] Baso Absolute 0.0 0.0 - 0.1 x10(3)/mc L [facility] Immature Gran % 0.30 % [facility] Comment: Immature granulocytes(IG's)percentage and absolute count will include metamyelocytes, myelocytes, and promyelocytes. Blood smears from CBCs yielding IG's will be scanned manually for concordance. If this scan disagrees with the automated IG or if promyelocytes are noted, a manual differential will be performed. Immature Gran Absolute 0.03 0.00 - 0.04 x10(3)/mc L [facility] Blood 12/02/2023 3:09 AM EDT 12/02/2023 3:44 AM EDT Narrative Resulting Agency Comment Spec In Lab Corinne Saba MD HEMATOLOGY ORDERAB LES [facility] [place] [address] * (ABNORMAL) Hemogram (12/02/2023 3:09 AM EDT) White Blood Cell 10.8(H) 4.0 - 9.5 x10(3)/mc L [facility] Red Blood Cell 3.29(L) 4.00 - 5.21 x10(6)/mc L [facility] Hemoglobin 10.1(L) 11.7 - 15.5 g/dL [facility] Hematocrit 31.3(L) 35.7 - 45.8 % [facility] Mean Cell Volume 95.1(H) 82.6 - 94.4 fL [facility] Mean Cell Hemoglobin 30.7 27.1 - 32.0 pg [facility] Mean Cell Hemoglobin Concentration 32.3 31.7 - 35.0 g/dL [facility] Platelet 316 145 - 357 x10(3)/mc L [facility] RDW Standard Deviation 52.9(H) 37.0 - 46.0 fL [facility] RDW coefficient of variation 15.0(H) 11.5 - 14.1 % [facility] Mean Platelet Volume 11.8 7.6 - 12.9 fL [facility] NRBC% auto 0.0 % [facility] NRBC Absolute 0.000 0.000 - 0.000 x10(3)/mc L [facility] Blood 12/02/2023 3:09 AM EDT 12/02/2023 3:44 AM EDT Narrative Resulting Agency Comment Spec In Lab Corinne Saba MD HEMATOLOGY ORDERAB LES [facility] [place] [address] * Heparin (unfractionated) Level (12/02/2023 3:09 AM EDT) UF Heparin 0.31 IU/mL [facility] Comment: Heparin (anti-Xa) levels [...] Lab Emory Ross MD HEMATOLOGY CHASE GUTIERREZ [facility] [place] [address] * (ABNORMAL) Basic Metabolic Panel (non-fasting) (12/02/2023 3:09 AM EDT) Glucose 95 65 - 199 mg/dL [facility] Comment:Diabetes: >=200 mg/d L plus symptoms Blood Urea Nitrogen 16 8 - 18 mg/dL [facility] Creatinine 1.25(H) 0.70 - 1.20 mg/dL [facility] Sodium 141 135 - 145 mmol/L [facility] Potassium 3.9 3.5 - 5.0 mmol/L [facility] Comment: Please note: ??Patients with WBC >100,000 may have falsely elevated Potassium levels. ??For accurate Potassium quantification in these patients send serum separator tube (gold top) for subsequent determinations. ??Contact the Clinical Chemistry Laboratory if there are any questions. Chloride 105 98 - 107 mmol/L [facility] Carbon Dioxide 25 22 - 31 mmol/L [facility] Anion Gap 11 5 - 15 mmol/L [facility] Calcium 9.3 8.5 - 10.5 mg/dL [facility] Est Glomerular Filtration Rate 50(L) >=60 mL/min/1. 73 m?? [facility] Comment: This patient's estimated [...] MD CHEMISTRY ORDER LAKEISHA Performing Organization Address City/[facility]/ZIP Co de Phone Number [facility] [place] [address] * Magnesium (12/02/2023 3:09 AM EDT) Magnesium 0.95 0.69 - 1.07 mmol/L [facility] Blood 12/02/2023 3:09 AM EDT 12/02/2023 3:44 AM EDT Narrative Resulting Agency Comment Spec In Lab Emory Ross MD CHEMISTRY ORDER LAKEISHA Performing Organization Address City/[facility] Co de Phone Number [facility] [place] [address] * Phosphorus (12/02/2023 3:09 AM EDT) Phosphorus 4.1 2.5 - 4.5 mg/dL [facility] Blood 12/02/2023 3:09 AM EDT 12/02/2023 3:44 AM EDT Narrative Resulting Agency Comment Spec In Lab Emory Ross MD CHEMISTRY ORDER LAKEISHA Performing Organization Address City/[facility]/ZIP Co de Phone Number [facility] [place] [address] * Heparin (unfractionated) Level (12/01/2023 8:55 PM EDT) UF Heparin 0.34 IU/mL [facility] [facility] Comment: Heparin (anti-Xa) levels [...] MD HEMATOLOGY ORDSamir GUTIERREZ Performing Organization Address City/[facility]/ZIP Co de Phone Number [facility] [place] [address] * Heparin (unfractionated) Level (12/01/2023 2:12 PM EDT) UF Heparin 0.25 IU/mL [facility] Comment: Heparin (anti-Xa) [...] Lab Emory Ross MD HEMATOLOGY [place] [address] * Heparin (unfractionated) Level (12/01/2023 8:11 AM EDT) [facility] UF Heparin 0.25 IU/mL [facility] Comment: Heparin (anti-Xa) levels should be [...] Lab Emory Ross MD HEMATOLOGY [place] [address] * (ABNORMAL) Differential, Automated (12/01/2023 4:42 AM EDT) [facility] Neutrophil % 56.4 % [facility] Neutrophil Absolute 5.69 1.70 - 6.10 x10(3)/mc L [facility] Lymph % 35.0 % [facility] Lymphocytes Abs 3.5(H) 0.9 - 3.2 x10(3)/mc L [facility] Monocyte % 7.4 % [facility] Monocyte Abs 0.8 0.3 - 0.9 x10(3)/mc L [facility] Eos % 0.6 % [facility] Eosinophils Abs 0.1 0.0 - 0.4 x10(3)/mc L [facility] Basophil % 0.3 % [facility] Baso Absolute 0.0 0.0 - 0.1 x10(3)/mc L [facility] Immature Gran % 0.30 % [facility] Comment: Immature granulocytes(IG's)percentage and absolute count will include metamyelocytes, myelocytes, and promyelocytes. Blood smears from CBCs yielding IG's will be scanned manually for concordance. If this scan disagrees with the automated IG or if promyelocytes are noted, a manual differential will be performed. Immature Gran Absolute 0.03 0.00 - 0.04 x10(3)/mc L [facility] Blood 12/01/2023 4:42 AM EDT 12/01/2023 5:13 AM EDT Narrative Resulting Agency Comment Spec In Lab Corinne Saba MD HEMATOLOGY ORDERAB LES [facility] [place] [address] * (ABNORMAL) Hemogram (12/01/2023 4:42 AM EDT) White Blood Cell 10.1(H) 4.0 - 9.5 x10(3)/mc L [facility] Red Blood Cell 3.30(L) 4.00 - 5.21 x10(6)/ L [facility] Hemoglobin 10.1(L) 11.7 - 15.5 g/dL [facility] Hematocrit 31.8(L) 35.7 - 45.8 % [facility] Mean Cell Volume 96.4(H) 82.6 - 94.4 fL [facility] Mean Cell Hemoglobin 30.6 27.1 - 32.0 pg [facility] Mean Cell Hemoglobin Concentration 31.8 31.7 - 35.0 g/dL [facility] Platelet 258 145 - 357 x10(3)/mc L [facility] RDW Standard Deviation 54.9(H) 37.0 - 46.0 fL [facility] RDW coefficient of variation 15.4(H) 11.5 - 14.1 % [facility] Mean Platelet Volume 12.8 7.6 - 12.9 fL [facility] NRBC% auto 0.3 % [facility] NRBC Absolute 0.030(H) 0.000 - 0.000 x10(3)/mc L [facility] Blood 12/01/2023 4:42 AM EDT 12/01/2023 5:13 AM EDT Narrative Resulting Agency Comment Spec In Lab Corinne Saba MD HEMATOLOGY ORDERAB LES [facility] [place] [address] * (ABNORMAL) Basic Metabolic Panel (non-fasting) (12/01/2023 4:42 AM EDT) Glucose 103 65 - 199 mg/dL [facility] Comment:Diabetes: >=200 mg/d L plus symptoms Blood Urea Nitrogen 19(H) 8 - 18 mg/dL [facility] Creatinine 1.20 0.70 - 1.20 mg/dL [facility] Sodium 138 135 - 145 mmol/L [facility] Potassium 3.9 3.5 - 5.0 mmol/L [facility] Comment: Please note: ??Patients with WBC >100,000 may have falsely elevated Potassium levels. ??For accurate Potassium quantification in these patients send serum separator tube (gold top) for subsequent determinations. ??Contact the Clinical Chemistry Laboratory if there are any questions. Chloride 104 98 - 107 mmol/L [facility] Carbon Dioxide 25 22 - 31 mmol/L [facility] Anion Gap 9 5 - 15 mmol/L [facility] Calcium 8.6 8.5 - 10.5 mg/dL [facility] Est Glomerular Filtration Rate 52(L) >=60 mL/min/1. 73 m?? [facility] Comment: This patient's estimated GFR was [...] Lab Emory Ross MD CHEMISTRY ORDER LAKEISHA [facility] [place] [address] * Magnesium (12/01/2023 4:42 AM EDT) Magnesium 0.93 0.69 - 1.07 mmol/L [facility] Blood 12/01/2023 4:42 AM EDT 12/01/2023 5:13 AM EDT Narrative Resulting Agency Comment Spec In Lab Emory Ross MD CHEMISTRY ORDER LAKEISHA Performing Organization Address City/[facility] Co de Phone Number [facility] [place] [address] * Phosphorus (12/01/2023 4:42 AM EDT) Phosphorus 3.2 2.5 - 4.5 mg/dL [facility] Blood 12/01/2023 4:42 AM EDT 12/01/2023 5:13 AM EDT Narrative Resulting Agency Comment Spec In Lab Emory Ross MD CHEMISTRY ORDER LAKEISHA Performing Organization Address City/[facility] Co de Phone Number [facility] [place] [address] * POCT Glucose (11/30/2023 10:58 AM EDT) Glucose, POC 143 65 - 199 mg/dL [facility] Comment: Supplemental ranges: <140 mg/dL before meals <180 mg/dL all other times of the day Blood 11/30/2023 10:5 8 AM EDT 11/30/2023 10:58 AM EDT Jose Jay DO POINT OF CARE TEST ORDERABLES [facility] [place] [address] * POCT Glucose (11/30/2023 7:43 AM EDT) Pathologist [facility] Glucose, POC 118 65 - 199 mg/dL [facility] Comment: Supplemental ranges: <140 mg/dL before meals <180 mg/dL all other times of the day Blood 11/30/2023 7:43 AM EDT 11/30/2023 7:43 AM EDT Jose Jay DO POINT OF CARE TEST ORDERABLES Performing Organization Address [facility] [place] [address] * Heparin (unfractionated) Level (11/30/2023 5:50 AM EDT) [facility] UF Heparin 0.55 IU/mL [facility] Comment: Heparin (anti-Xa) levels [...] MD HEMATOLOGY CHASE GUTIERREZ Performing Organization Address City/[facility]/ZIP Co de Phone Number [facility] [place] [address] * (ABNORMAL) Differential, Automated (11/30/2023 12:40 AM EDT) [facility] Neutrophil % 74.1 % [facility] Neutrophil Absolute 12.54(H) 1.70 - 6.10 x10(3)/mc L [facility] Lymph % 20.0 % [facility] Lymphocytes Abs 3.4(H) 0.9 - 3.2 x10(3)/mc L [facility] Monocyte % 5.2 % [facility] Monocyte Abs 0.9 0.3 - 0.9 x10(3)/mc L [facility] Eos % 0.1 % [facility] Eosinophils Abs 0.0 0.0 - 0.4 x10(3)/mc L [facility] Basophil % 0.1 % [facility] Baso Absolute 0.0 0.0 - 0.1 x10(3)/mc L [facility] Immature Gran % 0.50 % [facility] Comment: Immature granulocytes(IG's)percentage and absolute count will include metamyelocytes, myelocytes, and promyelocytes. Blood smears from CBCs yielding IG's will be scanned manually for concordance. If this scan disagrees with the automated IG or if promyelocytes are noted, a manual differential will be performed. Immature Gran Absolute 0.09(H) 0.00 - 0.04 x10(3)/mc L [facility] Blood 11/30/2023 12:4 0 AM EDT 11/30/2023 12:48 AM EDT Narrative Resulting Agency Comment Spec In Lab Corinne Saba MD HEMATOLOGY ORDERAB LES Performing Organization Address City/State/[facility] Co de Phone Number [facility] [place] [address] * (ABNORMAL) Hemogram (11/30/2023 12:40 AM EDT) White Blood Cell 16.9(H) 4.0 - 9.5 x10(3)/mc L [facility] Red Blood Cell 3.09(L) 4.00 - 5.21 x10(6)/mc L [facility] Hemoglobin 9.6(L) 11.7 - 15.5 g/dL [facility] Hematocrit 30.1(L) 35.7 - 45.8 % [facility] Mean Cell Volume 97.4(H) 82.6 - 94.4 fL [facility] Mean Cell Hemoglobin 31.1 27.1 - 32.0 pg [facility] Mean Cell Hemoglobin Concentration 31.9 31.7 - 35.0 g/dL [facility] Platelet 281 145 - 357 x10(3)/mc L [facility] RDW Standard Deviation 55.5(H) 37.0 - 46.0 fL [facility] RDW coefficient of variation 15.5(H) 11.5 - 14.1 % [facility] Mean Platelet Volume 12.3 7.6 - 12.9 fL [facility] NRBC% auto 0.0 % [facility] NRBC Absolute 0.000 0.000 - 0.000 x10(3)/mc L [facility] Blood 11/30/2023 12:4 0 AM EDT 11/30/2023 12:48 AM EDT Narrative Resulting Agency Comment Spec In Lab Corinne Saba MD HEMATOLOGY ORDERAB LES [facility] [place] [address] * (ABNORMAL) Basic Metabolic Panel (non-fasting) (11/30/2023 12:40 AM EDT) Glucose 115 65 - 199 mg/dL [facility] Comment:Diabetes: >=200 mg/d L plus symptoms Blood Urea Nitrogen 25(H) 8 - 18 mg/dL [facility] Creatinine 1.65(H) 0.70 - 1.20 mg/dL [facility] Sodium 141 135 - 145 mmol/L [facility] Potassium 4.0 3.5 - 5.0 mmol/L [facility] Comment: Please note: ??Patients with WBC >100,000 may have falsely elevated Potassium levels. ??For accurate Potassium quantification in these patients send serum separator tube (gold top) for subsequent determinations. ??Contact the Clinical Chemistry Laboratory if there are any questions. Chloride 106 98 - 107 mmol/L [facility] Carbon Dioxide 26 22 - 31 mmol/L [facility] Anion Gap 9 5 - 15 mmol/L [facility] Calcium 8.7 8.5 - 10.5 mg/dL [facility] Est Glomerular Filtration Rate 36(L) >=60 mL/min/1. 73 m?? [facility] Comment: This patient's estimated GFR was [...] MD CHEMISTRY ORDER LAKEISHA Performing Organization Address City/[facility]/ZIP Co de Phone Number [facility] [place] [address] * Magnesium (11/30/2023 12:40 AM EDT) Magnesium 0.94 0.69 - 1.07 mmol/L [facility] Blood 11/30/2023 12:4 0 AM EDT 11/30/2023 12:48 AM EDT Narrative Resulting Agency Comment Spec In Lab Emory Ross MD CHEMISTRY ORDER LAKEISHA [facility] [place] [address] * Phosphorus (11/30/2023 12:40 AM EDT) Phosphorus 3.2 2.5 - 4.5 mg/dL [facility] Blood 11/30/2023 12:4 0 AM EDT 11/30/2023 12:48 AM EDT Narrative Resulting Agency Comment Spec In Lab Emory Ross MD CHEMISTRY ORDER LAKEISHA Performing Organization Address City/[facility] Co de Phone Number [facility] [place] [address] * Heparin (unfractionated) Level (11/30/2023 12:40 AM EDT) UF Heparin 0.56 IU/mL [facility] Comment: Heparin (anti-Xa) levels should be [...] MD HEMATOLOGY ORDE RABLES Performing Organization Address [facility] Co de Phone Number [facility] [place] [address] * Heparin (unfractionated) Level (11/29/2023 4:20 PM EDT) UF Heparin 0.84 IU/mL [facility] Comment: Heparin (anti-Xa) levels should be [...] Lab Emory Ross MD HEMATOLOGY CHASE GUTIERREZ [facility] [place] [address] * CT Chest wo Contrast (Generic) (11/29/2023 [...] who have questions please contact the health morning caregiver that requested your imaging first. ? Electronically signed by: Marco A Glynn MD, [facility] ([phone]), at 11/30/2023 11:07 AM Narrative 11/30/2023 11:07 [...] patients who have questions please contactthe health morning caregiver that requested your imaging first. Electronically signed by: Marco A Glynn MD, [facility]([phone]), at 11/30/2023 11:07 AM Emory Ross MD IMG CT ORDERABL ES * Potassium (11/29/2023 9:30 AM EDT) Pathologist [facility] Potassium 4.4 3.5 - 5.0 mmol/L [facility] Comment: Please note: ??Patients [...] Lab Emory Ross MD CHEMISTRY ORDER LAKEISHA [facility] [place] [address] * Heparin (unfractionated) Level (11/29/2023 9:30 AM EDT) UF Heparin 0.97 IU/mL [facility] Comment: Heparin (anti-Xa) [...] Lab Emory Ross MD HEMATOLOGY CHASE GUTIERREZ [facility] [place] [address] * (ABNORMAL) Troponin (11/29/2023 9:30 AM EDT) Troponin-T, High Sensitivity 1,592(H) <=14 ng/L [facility] Comment: This patient's troponin T concentration [...] troponin value can be found in the [facility] Test Catalog Troponin - [facility] Test Catalog Reference: [place] Definition of Myocardial Infarction. Journal of the [place] [employer] 2018;72:3332-7041 Blood 11/29/2023 9:30 AM EDT 11/29/2023 9:42 AM EDT Narrative Resulting Agency Comment Spec In Lab Emory Ross MD CHEMISTRY ORDER LAKEISHA [facility] [place] [address] * (ABNORMAL) Troponin (11/29/2023 5:24 AM EDT) Troponin-T, High Sensitivity 1,667(H) <=14 ng/L [facility] Comment: This patient's troponin T concentration [...] troponin value can be found in the [facility] Test Catalog Troponin - [facility] Test Catalog Reference: [place] Definition of Myocardial Infarction. Journal of the [place] [employer] 2018;72:7040-4646 Blood 11/29/2023 5:24 AM EDT 11/29/2023 5:54 AM EDT Narrative Resulting Agency Comment Spec In Lab Emory Ross MD CHEMISTRY ORDER LAKEISHA [facility] [place] [address] * (ABNORMAL) BMP w/fasting Glucose (11/29/2023 12:27 AM EDT) Glucose Fasting 153(H) 65 - 99 mg/dL [facility] Comment: ?Fasting* Glucose Interpretive Criteria Normal [...] of Diabetes Mellitus, Position Statement from the [place] [employer]. ??Diabetes Care, Volume 33, Supplement 1, Sep 2009 Blood Urea Nitrogen 19(H) 8 - 18 mg/dL [facility] Creatinine 1.32(H) 0.70 - 1.20 mg/dL [facility] Sodium 140 135 - 145 mmol/L [facility] Potassium 3.7 3.5 - 5.0 mmol/L [facility] Comment: Please note: ??Patients with WBC >100,000 may have falsely elevated Potassium levels. ??For accurate Potassium quantification in these patients send serum separator tube (gold top) for subsequent determinations. ??Contact the Clinical Chemistry Laboratory if there are any questions. Chloride 104 98 - 107 mmol/L [facility] Carbon Dioxide 24 22 - 31 mmol/L [facility] Anion Gap 12 5 - 15 mmol/L [facility] Calcium 8.8 8.5 - 10.5 mg/dL [facility] Est Glomerular Filtration Rate 47(L) >=60 mL/min/1. 73 m?? [facility] Comment: This patient's estimated GFR was [...] MD CHEMISTRY ORDERABL ES Performing Organization Address City/[facility]/[place] [address] * (ABNORMAL) Differential, Automated (11/29/2023 12:27 AM EDT) Neutrophil % 86.9 % [facility] Neutrophil Absolute 13.48(H) 1.70 - 6.10 x10(3)/mc L [facility] Lymph % 8.6 % [facility] Lymphocytes Abs 1.3 0.9 - 3.2 x10(3)/mc L [facility] Monocyte % 3.4 % [facility] Monocyte Abs 0.5 0.3 - 0.9 x10(3)/mc L [facility] Eos % 0.5 % [facility] Eosinophils Abs 0.1 0.0 - 0.4 x10(3)/mc L [facility] Basophil % 0.1 % [facility] Baso Absolute 0.0 0.0 - 0.1 x10(3)/mc L [facility] Immature Gran % 0.50 % [facility] Comment: Immature granulocytes(IG's)percentage and absolute count will include metamyelocytes, myelocytes, and promyelocytes. Blood smears from CBCs yielding IG's will be scanned manually for concordance. If this scan disagrees with the automated IG or if promyelocytes are noted, a manual differential will be performed. Immature Gran Absolute 0.08(H) 0.00 - 0.04 x10(3)/mc L [facility] Blood 11/29/2023 12:2 7 AM EDT 11/29/2023 12:51 AM EDT Narrative Resulting Agency Comment Spec In Lab Corinne Saba MD HEMATOLOGY ORDERAB LES Performing Organization Address City/[facility]/[place] [address] * (ABNORMAL) Hemogram (11/29/2023 12:27 AM EDT) White Blood Cell 15.5(H) 4.0 - 9.5 x10(3)/mc L [facility] Red Blood Cell 3.33(L) 4.00 - 5.21 x10(6)/mc L [facility] Hemoglobin 10.3(L) 11.7 - 15.5 g/dL [facility] Hematocrit 30.7(L) 35.7 - 45.8 % [facility] Mean Cell Volume 92.2 82.6 - 94.4 fL [facility] Mean Cell Hemoglobin 30.9 27.1 - 32.0 pg [facility] Mean Cell Hemoglobin Concentration 33.6 31.7 - 35.0 g/dL [facility] Platelet 286 145 - 357 x10(3)/mc L [facility] RDW Standard Deviation 49.9(H) 37.0 - 46.0 fL [facility] RDW coefficient of variation 14.8(H) 11.5 - 14.1 % [facility] Mean Platelet Volume 12.0 7.6 - 12.9 fL [facility] NRBC% auto 0.0 % [facility] NRBC Absolute 0.000 0.000 - 0.000 x10(3)/ L [facility] Blood 11/29/2023 12:2 7 AM EDT 11/29/2023 12:51 AM EDT Narrative Resulting Agency Comment Spec In Lab Corinne Saba MD HEMATOLOGY ORDERAB LES Performing Organization Address City/State/[facility] Co de Phone Number [facility] [place] [address] * Magnesium (11/29/2023 12:27 AM EDT) Magnesium 0.89 0.69 - 1.07 mmol/L [facility] Blood 11/29/2023 12:2 7 AM EDT 11/29/2023 12:51 AM EDT Narrative Resulting Agency Comment Spec In Lab Emory Ross MD CHEMISTRY ORDER LAKEISHA [facility] [place] [address] * Phosphorus (11/29/2023 12:27 AM EDT) Phosphorus 3.1 2.5 - 4.5 mg/dL [facility] Blood 11/29/2023 12:2 7 AM EDT 11/29/2023 12:51 AM EDT Narrative Resulting Agency Comment Spec In Lab Emory Ross MD CHEMISTRY ORDER LAKEISHA [facility] [place] [address] * (ABNORMAL) Troponin (11/29/2023 12:27 AM EDT) Troponin-T, High Sensitivity 1,719(H) <=14 ng/L [facility] Comment: This patient's troponin T concentration [...] troponin value can be found in the [facility] Test Catalog Troponin - [facility] Test Catalog Reference: [place] Definition of Myocardial Infarction. Journal of the [place] [employer] 2018;72:[id number] Blood 11/29/2023 12:2 7 AM EDT 11/29/2023 12:51 AM EDT Narrative Resulting Agency Comment Spec In Lab Emory Ross MD CHEMISTRY ORDER LAKEISHA [facility] [place] [address] * Triglyceride (11/29/2023 12:27 AM EDT) Triglyceride 93 mg/dL [facility] Comment: Average Risk/Lower Risk: <150 mg/dL Borderline High Risk: 150-199 mg/dL High Risk: 200-499 mg/dL Very High Risk: >as=712 mg/dL Blood 11/29/2023 12:2 7 AM EDT 11/29/2023 12:51 AM EDT Narrative Resulting Agency Comment Spec In Lab Emory Ross MD CHEMISTRY ORDER LAKEISHA Performing Organization Address City/[facility]/ZIP Co de Phone Number [facility] [place] [address] * HDL/Cholesterol Profile (11/29/2023 12:27 AM EDT) Cholesterol, Total 139 mg/dL [facility] Comment: Lower Risk: <200 mg/dL Average Risk: 200-239 mg/dL Higher Risk: >jb=592 mg/dL HDL Cholesterol 44 mg/dL [facility] Comment: Males: ?? Higher Risk: <40 mg/dL Females: ?? Higher Risk: <50 mg/dL Cholesterol/HDL Ratio 3.2 ratio [facility] Chol/HDL Interpretation See Note [facility] Comment: Lipid management should be guided by a patient? s ASCVD risk, goals and preferences. ACC/AHA Guidelines recommend high intensity statin if clinical ASCVD or LDL greater than or equal to 190 mg/dL. http://tinyurl.com/UDK-NCJ-Blfmdddfz Measure LDL if Total Cholesterol minus HDL Cholesterol is greater than 220 mg/dL. Adults aged 40-75 with LDL 70-189 mg/dL should have their 10 year ASCVD risk estimated with the ACC/AHA ASCVD risk truck repair service estimator http://tools.acc.org/ISBGZ-Jruz-Nvvfmwwhx/ Statin should be discussed if risk greater [...] Lab Emory Ross MD CHEMISTRY ORDER LAKEISHA [facility] [place] [address] * LDL Cholesterol, Direct (11/29/2023 12:27 AM EDT) LDL Cholesterol, Direct 69 mg/dL [facility] Comment: Lowest Risk: <100 mg/dL Lower Risk: 100-129 mg/dL Borderline High Risk: 130-159 mg/dL High Risk: 160-189 mg/dL Very High Risk: >vn=976 mg/dL Blood 11/29/2023 12:2 7 AM EDT 11/29/2023 12:51 AM EDT Narrative Resulting Agency Comment Spec In Lab Emory Ross MD CHEMISTRY ORDER LAKEISHA [facility] [place] [address] * Hemoglobin A1c (11/29/2023 12:27 AM EDT) Hemoglobin A1c 5.3 4.3 - 5.6 % [facility] Comment: Reference Range: 4.3 - 5.6% [...] Mellitus, Diabetes Care 2013; 36: Suppl. 1, S67-25 Estimated Average Glucose 107 mg/dL [facility] Blood 11/29/2023 12:2 7 AM EDT 11/29/2023 12:51 AM EDT Narrative Resulting Agency Comment Spec In Lab Emory Ross MD CHEMISTRY ORDER LAKEISHA Performing Organization Address City/[facility]/ZIP Co de Phone Number [facility] [place] [address] * Potassium (11/28/2023 6:00 PM EDT) Potassium 3.7 3.5 - 5.0 mmol/L [facility] Comment: Please note: ??Patients with WBC [...] MD CHEMISTRY ORDER LAKEISHA Performing Organization Address [facility] Co de Phone Number [facility] [place] [address] * (ABNORMAL) Troponin (11/28/2023 6:00 PM EDT) Troponin-T, High Sensitivity 1,107(H) <=14 ng/L [facility] Comment: This patient's troponin T concentration [...] troponin value can be found in the [facility] Test Catalog [facility] Test Catalog Reference: [place] Definition of Myocardial Infarction. Journal of the [place] [employer] 2018;72:3142-7014 Blood 11/28/2023 6:00 PM EDT 11/28/2023 6:14 PM EDT Narrative Resulting Agency Comment Spec In Lab Emory Ross MD CHEMISTRY ORDER LAKEISHA Performing Organization Address City/[facility] [place] [address] * EKG 12 Lead (11/28/2023 5:50 PM EDT) Ventricular rate 85 BPM MUSE SYSTEM Atrial Rate 85 BPM MUSE SYSTEM P-R Interval 144 ms MUSE SYSTEM QRS Duration 142 ms MUSE SYSTEM Q-T Interval 448 ms MUSE SYSTEM QTC Calculated (Bezet) 533 ms MUSE SYSTEM Calculated P [place] 71 degrees MUSE SYSTEM Calculated R [place] 50 degrees MUSE SYSTEM Calculated T [place] 82 degrees MUSE SYSTEM INTERPRETATION Normal sinus rhythm Possible Left atrial enlargement Left bundle branch block Abnormal ECG When compared with ECG of 28-NOV-2023 10:55, Left bundle branch block is now Present Confirmed by MD Randle Katharine ([id number]) on 11/30/2023 9:25:14 PM MUSE SYSTEM 11/28/2023 5:50 PM EDT 11/30/2023 9:25 PM EDT Emory Ross MD ECG ORDERABLES Performing Organization Address City/[facility] Co de Phone Number MUSE SYSTEM * CARDIAC CATHETERIZATION (11/28/2023 5:12 PM EDT) Anatomical Region Laterality Modality Other Narrative 11/29/2023 3:02 PM EDT ?[facility] ? Cardiac Catheterization/Intervention Report ? Patient Name: Oksana Betancourt A. ? Procedure Date: 11/28/2023 ? A #: [id number] ? Primary Physician: Ryder Hargrove ? Case #: [id number] ? File Name: [id number] ? Catheterization Order Number: [id number] ? [facility] ? Final Report [place], [place] ? Patient Name: ? Oksana Antoine. Asia ?ID#: ?[id number] ? : ?1965 ? Procedure Date: ? November 28, 2023 ? Case #: ? [id number] ? Room: ? 2 ? Case Physician: [...] procedure was Urgent. The indication for ?the manufacturing laborer visit is ACS less than or equal [...] A premounted 3.50 x 22 mm [place] Breckin[place] (CRIS) was deployed ? with a maximum [...] dose administered prior to arrival in the manufacturing laborer. ?Recommended anti-platelet/anti-thrombotic regimen: ?Continue aspirin 81 mg daily for indefinitely. ?Continue clopidogrel 75 mg daily for indefinitely. ?These recommendations are made at the time of the intervention. Patient ?and provider preferences or a changing clinical situation may require ?modification of this regimen. Consult [facility] for ?questions. ? Conclusions: ?* [...] Procedure Note Ryder Hargrove MD - 01/25/2024 [facility] Cardiac Catheterization/Intervention Report Patient Name: Asia Oksana AntoineRyan Procedure Date: 11/28/2023 A #: [id number] Primary Physician: Ryder Hargrove Case #: [id number] File Name: [id number] Catheterization Order Number: [id number] [facility] FinalReport [place], [place] Patient Name: Oksana Betancourt ID#:[id number] :1965 Procedure Date: November 28, 2023 Case [...] patient was designated as ASAClass III. The [facility] clinical frailty scale is 5: Mildly Frail. Diagnostic Tests: Prior Coronary Angiography: LV ejection fraction within 6 months is 50%. Electrocardiography: EKG was assessed by ECG. EKG was Normal. Medications Prior to Procedure: Ranolazine, Aspirin, Calcium Channel Blocking Agent, LongActing Nitrate and Statin. Indications for Diagnostic Cath: The priority of the diagnostic procedure was Urgent. The indicationfor the manufacturing laborer visit is ACS less than or equal [...] The priority for the procedure was Urgent.The [facility] indication for the procedure was NSTE-ACS. LVEF [...] 16atmospheres. A premounted 3.50 x 22 mm [place] Breckinridge (CRIS) wasdeployed with a maximum inflation pressure [...] dose administered prior to arrival in the manufacturing laborer. Recommended anti-platelet/anti-thrombotic regimen: Continue aspirin 81 mg daily for indefinitely. Continue clopidogrel 75 mg daily for indefinitely. These recommendations are made at the time of the intervention.Patient and provider preferences or a changing clinical situation mayrequire modification of this regimen. Consult [facility] Interventional Cardiologyfor questions. Conclusions: * Significant stenosis [...] EDT Narrative 11/28/2023 4:51 PM EDT [address] [place] [address] ? Echocardiogram Report Name: OKSANA BETANCOURT ? Study Date: 11/28/2023 12:58 PMBP: 136/73 mmHg ? Patient Location: [facility] CV29 A : 1965 ? Height: 168 cm ? Account: [id number] Age: 57 yrs ? Weight: 109 kg Gender: Female ?BSA: 2.2 m2 Ordering Physician: NILDA Referring Physician: BLAZE RANDALL Performed By: VICKY Mcdonnell Reason For Study: NSTEMI Exam Location: [facility]. Interpretation Summary -Left ventricular systolic function [...] comparison. See report for additional findings. Procedure Complete-[id number]. Image enhancement Optison was used for left [...] Note Solo Rausch MD - 11/28/2023 [address] [place] [address] Echocardiogram Report Name: OKSANA BETANCOURT Antoine Study Date: 412:58 PMBP: 136/73 mmHg Patient Location: [address] : 1965 Height: 168 cm Account: [id number] Age: 57 yrs Weight: 109 kg Gender: Female BSA: 2.2 m2 Ordering Physician: NILDA Referring Physician: BLAZE RANDALL Performed By: VICKY Mcdonnell Reason For Study: NSTEMI Exam Location: [facility]. Interpretation Summary -Left ventricular systolic function is mildly reduced. The leftventricular ejection fraction is 44% by Guzman's biplane. There are segmental wallmotion abnormalities which are in an RCA distribution (inferior, inferoseptal predominantly-see attached PDF). No thrombus. -Right ventricular systolic function is normal. The estimated RVSP [id number]. -There is an aortic bioprosthesis (size/type unknown, reported to havebeen placed in 2021) which appears to be functioning normally. Mean gradient 5mmHg.No regurgitation. -There is moderate mitral regurgitation which is both central andanteriorly directed. The leaflets are not well visualized. The mechanism of the MR isunclear with the available data. No prior images for comparison. See report for additional findings. Procedure Complete-[id number]. Image enhancement Optison was used for left [...] Glucose, POC 155 65 - 199 mg/dL [facility] Comment: Supplemental ranges: <140 mg/dL before meals <180 mg/dL all other times of the day Blood 11/28/2023 4:22 PM EDT 11/28/2023 4:22 PM EDT Emory Ross MD POINT OF CARE T EST ORDERABLES Performing Organization Address City/State/[facility] Co de Phone Number [facility] [place] [address] * (ABNORMAL) Point of Care Blood Gas Historical (11/28/2023 3:26 PM EDT) pH, POC 7.36 7.35 - 7.45 [facility] pCO2, POC 39 35 - 45 mmHg [facility] pO2, POC 150(H) 85 - 104 mmHg [facility] Base Excess, POC -3.0 -3.0 - 3.0 mmol/L [facility] Bicarbonate, POC 22.0 20.0 - 26.0 mmol/L [facility] Sodium, POC 136 135 - 145 mmol/L [facility] POC Potassium 3.5 3.5 - 5.0 mmol/L [facility] Ionized Calcium, POC 1.18 1.15 - 1.33 mmol/L [facility] POC Hematocrit 29.0(L) 34.0 - 45.0 % [facility] POC Calc Hgb 9.9(L) 11.2 - 15.7 g/dL [facility] Comment:The calculation of h emoglobin from hematocrit assumes a normal MCHC. POC Bgas Loc CC Lab [facility] Blood 11/28/2023 3:26 PM EDT 12/01/2023 12:00 PM EDT Arlin Jackson MD CHEMISTRY ORDERABL ES [facility] [place] [address] * (ABNORMAL) Troponin (11/28/2023 2:20 PM EDT) Troponin-T, High Sensitivity 812(H) <=14 ng/L [facility] Comment: This patient's troponin T concentration [...] troponin value can be found in the [facility] Test Catalog [facility] Test Catalog Reference: [place] Definition of Myocardial Infarction. Journal of the [place] [employer] 2018;72:9191-2168 Blood 11/28/2023 2:20 PM EDT 11/28/2023 2:30 PM EDT Narrative Resulting Agency Comment Spec In Lab Emory Ross MD CHEMISTRY ORDER LAKEISHA [facility] [place] [address] * XR Chest One View (11/28/2023 11:30 [...] who have questions please contact the health morning caregiver that requested your imaging first. ? Electronically signed by: Andrew Khoury MD, [facility] ??([phone]), at 11/28/2023 2:04 PM Narrative 11/28/2023 2:04 [...] patients who have questions please contactthe health morning caregiver that requested your imaging first. Electronically signed by: Andrew Khoury MD, [facility]([phone]), at 11/28/2023 2:04 PM Emory Ross MD IM DX ORDERABL ES * (ABNORMAL) Troponin (11/28/2023 11:10 AM EDT) Troponin-T, High Sensitivity 713(H) <=14 ng/L [facility] Comment: This patient's troponin T concentration [...] troponin value can be found in the [facility] Test Catalog [facility] Test Catalog Reference: [place] Definition of Myocardial Infarction. Journal of the [place] [employer] 2018;72:0705-0434 Blood Venous Draw / Unknown 11/28/2023 11:10 AM EDT 11/28/2023 11:28 AM EDT Narrative Resulting Agency Comment Spec In Lab Corinne Saba MD CHEMISTRY ORDERABL ES [facility] [place] [address] * (ABNORMAL) Differential, Automated (11/28/2023 11:10 AM EDT) Neutrophil % 86.9 % [facility] Neutrophil Absolute 12.13(H) 1.70 - 6.10 x10(3)/mc L [facility] Lymph % 10.0 % [facility] Lymphocytes Abs 1.4 0.9 - 3.2 x10(3)/mc L [facility] Monocyte % 2.5 % [facility] Monocyte Abs 0.4 0.3 - 0.9 x10(3)/mc L [facility] Eos % 0.1 % [facility] Eosinophils Abs 0.0 0.0 - 0.4 x10(3)/mc L [facility] Basophil % 0.1 % [facility] Baso Absolute 0.0 0.0 - 0.1 x10(3)/mc L [facility] Immature Gran % 0.40 % [facility] Comment: Immature granulocytes(IG's)percentage and absolute count will include metamyelocytes, myelocytes, and promyelocytes. Blood smears from CBCs yielding IG's will be scanned manually for concordance. If this scan disagrees with the automated IG or if promyelocytes are noted, a manual differential will be performed. Immature Gran Absolute 0.06(H) 0.00 - 0.04 x10(3)/mc L [facility] Blood 11/28/2023 11:1 0 AM EDT 11/28/2023 11:28 AM EDT Narrative Resulting Agency Comment Spec In Lab Corinne Saba MD HEMATOLOGY ORDERAB LES Performing Organization Address City/[facility]/ZIP Co de Phone Number [facility] [place] [address] * (ABNORMAL) Hemogram (11/28/2023 11:10 AM EDT) White Blood Cell 14.0(H) 4.0 - 9.5 x10(3)/mc L [facility] Red Blood Cell 3.59(L) 4.00 - 5.21 x10(6)/mc L [facility] Hemoglobin 11.0(L) 11.7 - 15.5 g/dL [facility] Hematocrit 33.2(L) 35.7 - 45.8 % [facility] Mean Cell Volume 92.5 82.6 - 94.4 fL [facility] Mean Cell Hemoglobin 30.6 27.1 - 32.0 pg [facility] Mean Cell Hemoglobin Concentration 33.1 31.7 - 35.0 g/dL [facility] Platelet 293 145 - 357 x10(3)/mc L [facility] RDW Standard Deviation 50.1(H) 37.0 - 46.0 fL [facility] RDW coefficient of variation 14.7(H) 11.5 - 14.1 % [facility] Mean Platelet Volume 12.8 7.6 - 12.9 fL [facility] NRBC% auto 0.0 % [facility] NRBC Absolute 0.000 0.000 - 0.000 x10(3)/mc L [facility] Blood 11/28/2023 11:1 0 AM EDT 11/28/2023 11:28 AM EDT Narrative Resulting Agency Comment Spec In Lab Corinne Saba MD HEMATOLOGY ORDERAB LES Performing Organization Address City/[facility]/ZIP Co de Phone Number [facility] [place] [address] * (ABNORMAL) Heparin (unfractionated) Level (11/28/2023 11:10 AM EDT) Pathologist [facility] Heparin >2.00(Cri tical) IU/mL [facility] Comment: Specimen drawn more than one [...] Lab Emory Ross MD HEMATOLOGY CHASE GUTIERREZ [facility] [place] [address] * (ABNORMAL) Hepatic Function Panel (11/28/2023 11:10 AM EDT) Pathologist [facility] Protein, Total 7.2 6.1 - 8.0 g/dL [facility] Albumin 4.1 3.2 - 5.2 g/dL [facility] Aspartate Aminotransferase 48(H) 0 - 30 unit/L [facility] Alanine Aminotransferase 16 0 - 30 unit/L [facility] Alkaline Phosphatase 117(H) 35 - 105 unit/L [facility] Bilirubin, Total 0.6 0.2 - 1.3 mg/dL [facility] Bilirubin, Direct 0.2 0.0 - 0.3 mg/dL [facility] Blood 11/28/2023 11:1 0 AM EDT 11/28/2023 11:28 AM EDT Narrative Resulting Agency Comment Spec In Lab Emory Ross MD CHEMISTRY ORDER LAKEISHA [facility] [place] [address] * (ABNORMAL) pro-Brain Natriuretic Peptide (11/28/2023 11:10 AM EDT) NT-proBNP 11,073(H) <=124 pg/mL [facility] Blood 11/28/2023 11:1 0 AM EDT 11/28/2023 11:28 AM EDT Narrative Resulting Agency Comment Spec In Lab Emory Ross MD CHEMISTRY ORDER LAKEISHA Performing Organization Address City/[facility] Co de Phone Number [facility] [place] [address] * (ABNORMAL) APTT (11/28/2023 11:10 AM EDT) Partial Thromboplastin Time 78(H) 25 - 37 sec [facility] Comment: The PTT is NOT appropriate for heparin monitoring. Use the Anti-Xa level for heparin monitoring (HEP UFH) or LMWH monitoring (HEP LMW). A PTT less than 37 seconds generally indicates adequate hemostasis. Blood 11/28/2023 11:1 0 AM EDT 11/28/2023 11:28 AM EDT Narrative Resulting Agency Comment Spec In Lab Emory Ross MD HEMATOLOGY ORDE RABLES [facility] [place] [address] * (ABNORMAL) Prothrombin Time (11/28/2023 11:10 AM EDT) Prothrombin Time 18.5(H) 9.4 - 12.5 sec [facility] International Normalization Ratio 1.6 [facility] Comment: An INR <2.0 indicates adequate [...] Lab Emory Ross MD HEMATOLOGY ORDSamir GUTIERREZ [facility] [place] [address] * Phosphorus (11/28/2023 11:10 AM EDT) Phosphorus 3.1 2.5 - 4.5 mg/dL [facility] Blood 11/28/2023 11:1 0 AM EDT 11/28/2023 11:28 AM EDT Narrative Resulting Agency Comment Spec In Lab Emory Ross MD CHEMISTRY ORDER LAKEISHA Performing Organization Address City/[facility]/ZIP Co de Phone Number [facility] [place] [address] * Magnesium (11/28/2023 11:10 AM EDT) Magnesium 0.84 0.69 - 1.07 mmol/L [facility] Blood 11/28/2023 11:1 0 AM EDT 11/28/2023 11:28 AM EDT Narrative Resulting Agency Comment Spec In Lab Emory Ross MD CHEMISTRY ORDER LAKEISHA Performing Organization Address City/[facility]/ZIP Co de Phone Number [facility] [place] [address] * TSH (11/28/2023 11:10 AM EDT) Thyroid Stimulating Hormone 0.51 0.27 - 4.20 mcIU/mL [facility] Comment: Reference Interval (mcIU/mL): Females: ??First Trimester: 0.23-3.88 ??Second Trimester: 0.22-3.90 ??Third Trimester: 0.44-4.66 Blood 11/28/2023 11:1 0 AM EDT 11/28/2023 11:28 AM EDT Narrative Resulting Agency Comment Spec In Lab Emory Ross MD CHEMISTRY ORDER LAKEISHA [facility] [place] [address] * (ABNORMAL) Basic Metabolic Panel (non-fasting) (11/28/2023 11:10 AM EDT) Glucose 151 65 - 199 mg/dL [facility] Comment:Diabetes: >=200 mg/d L plus symptoms Blood Urea Nitrogen 17 8 - 18 mg/dL [facility] Creatinine 1.26(H) 0.70 - 1.20 mg/dL [facility] Sodium 139 135 - 145 mmol/L [facility] Potassium 3.6 3.5 - 5.0 mmol/L [facility] Comment: Please note: ??Patients with WBC >100,000 may have falsely elevated Potassium levels. ??For accurate Potassium quantification in these patients send serum separator tube (gold top) for subsequent determinations. ??Contact the Clinical Chemistry Laboratory if there are any questions. Chloride 103 98 - 107 mmol/L [facility] Carbon Dioxide 23 22 - 31 mmol/L [facility] Anion Gap 13 5 - 15 mmol/L [facility] Calcium 9.1 8.5 - 10.5 mg/dL [facility] Est Glomerular Filtration Rate 49(L) >=60 mL/min/1. 73 m?? [facility] Comment: This patient's estimated GFR was [...] Lab Emory Ross MD CHEMISTRY ORDER LAKEISHA [facility] [place] [address] documented in this encounter Visit Diagnoses Not [...] (50 mcg/mL) multi-dose injection PRN, Starting on Tue11/28/23 at 1538, Until Tue11/28/23 at 1711, Intra-Operative (Intra-Procedure), Routine Given 11/28/2023 3:45 PM EDT 25 mcg Given 11/28/2023 3:38 PM EDT 12.5 mcg heparin (porcine) (1,000 units/mL) injection PRN, Starting on Tue11/28/23 at 1602, Until Tue11/28/23 at 1711, Intra-Operative (Intra-Procedure), Routine Given 11/28/2023 4:26 PM EDT 2,000 Units Given 11/28/2023 4:15 PM EDT 2,000 Units Given 11/28/2023 4:02 PM EDT 5,000 Units iohexoL (Omnipaque) (350 mg/mL) solution PRN, Starting on Tue11/28/23 at 1657, Until Tue11/28/23 at 1711, Intra-Operative (Intra-Procedure), Routine Given 11/28/2023 4:57 PM EDT 215 mLs ipratropium-albuteroL (Duoneb) 0.5 mg-3 mg(2.5 mg [...] (1 mg/mL) multi-dose injection PRN, Starting on Tue11/28/23 at 1538, Until Tue11/28/23 at 1711, Intra-Operative (Intra-Procedure), Routine Given 11/28/2023 3:45 PM EDT 1 mg Given 11/28/2023 3:38 PM EDT 0.5 mg nitroGLYcerin 100 mcg/mL intracoronary dilution PRN, Starting on Tue11/28/23 at 1545, Until Tue11/28/23 at 1711, Intra-Operative (Intra-Procedure), Routine Given 11/28/2023 3:45 PM EDT 100 mcg ondansetron (Zofran) tablet 4 mg 4 mg, [...] Given 2023 8:10 AM EDT 5 mLs verapamiL (Isoptin) (2.5 mg/mL) injection PRN, Starting on Tue11/28/23 at 1546, Until Tue11/28/23 at 1711, Administer over 2 Minutes, Intra-Operative (Intra-Procedure) Given 11/28/2023 3:46 PM EDT 2 .5 mg documented in this encounter Active and [...] 0811 (Given - Provider: Mark Hooper RN)1158 ([facility] Hold - Provider: Admin Adt - Reason: Transfer to a Procedural area)1543 ([facility] Unhold - Provider: Admin Adt) 0809 (Given - Provider: Mark Hooper RN) 0844 (Given - Provider: Angelique Michaels, KANDI) atorvastatin (Lipitor) tablet 80 mg 80 mg, Oral, DAILY AT NOON, First dose (after last modification) on Tue11/29/23 at 1200, Until Discontinued, Routine 1158 ([facility] Hold - Provider: Admin Adt - Reason: Transfer to a Procedural area)1200 (Not Given - Provider: Mark Hooper RN - Reason: Patient not available)1543 ([facility] Unhold - Provider: Admin Adt) 1239 (Given - Provider: Mark H Mcleod, RN) 1142 (Given - Provider: Angelique Michaels, KANDI) baclofen (Lioresal) tablet 5 mg 5 mg, Oral, 2 TIMES DAILY, First dose on Tue11/28/23 at 1330, Until Discontinued, Routine 0811 (Given - Provider: Mark Hooper RN)1158 ([facility] Hold - Provider: Admin Adt - Reason: Transfer to a Procedural area)1543 ([facility] Unhold - Provider: Admin Adt)2020 (Given - Provider: Lukas Dia RN) 0810 (Given - Provider: Mark Hooper RN)2013 (Given - Provider: Lukas Dia RN) 0845 (Given - Provider: Angelique Michaels, KANDI) clopidogreL (Plavix) tablet 75 mg 75 mg, Oral, DAILY, First dose on Tue11/29/23 at 0900, Until Discontinued, Routine 0811 (Given - Provider: Mark Hooper RN)1158 ([facility] Hold - Provider: Admin Adt - [...] 0811 (Given - Provider: Mark Hooper RN)1158 ([facility] Hold - Provider: Admin Adt - Reason: Transfer to a Procedural area)1543 ([facility] Unhold - Provider: Admin Adt)2020 (Given - Provider: Lukas Dia, KANDI) 0809 (Given - Provider: Mark Hooper RN)2012 [...] area)1543 (N[facility] Unhold - Provider: Admin Adt) 0650 (Given - Provider: Lukas Dia RN) 0633 (Given - Provider: Lukas Dia RN) metoprolol succinate XL (Toprol-XL) tablet 50 mg 50 mg, Oral, 2 TIMES DAILY, First dose on Tue12/04/23 at 0900, Until Discontinued, DO NOT CRUSH OR OPEN, Routine 0844 (Given - Provider: Angelique Michaels RN) metoprolol tartrate (Lopressor) tablet 12.5 mg (CANCELED) [...] Mark Hooper RN)1809 (Given - Provider: Mark Hooper, KANDI)2320 (Given - Provider: Lukas Dia RN) 0633 [...] 0811 (Given - Provider: Mark Hooper RN)1158 ([facility] Hold - Provider: Admin Adt - Reason: Transfer to a Procedural area)1543 ([facility] Unhold - Provider: Admin Adt) 0809 (Given - Provider: Mark Hooper RN) 0844 (Given - Provider: Angelique Michaels, KANDI) QUEtiapine (SEROquel) tablet 100 mg 100 mg, Oral, NIGHTLY, First dose on Tue11/28/23 at 2100, Until Discontinued, Routine 1158 ([facility] Hold - Provider: Admin Adt - Reason: Transfer to a Procedural area)1543 ([facility] Unhold - Provider: Admin Adt)2019 (Given - Provider: Lukas Dia, RN) 2012 [...] Admin Adt)2100 (Not Given - Provider: Lukas Dia, KANDI - Reason: See comment - Comment: NS infusing) 0810 (Given - Provider: Mark Hooper RN)2012 (Given - Provider: Lukas Dia, KANDI) 0900 (Given - Provider: Angelique Michaels, KANDI) Continuous Medication Order 12/02/2023 2023 12/04/2023 sodium [...] Hawa Guzmán RN)1146 (Given - Provider: Hawa Guzmán RN)1159 (Given [...] area)1543 ([facility] Unhold - Provider: Admin Adt) midazolam (pf) (Versed) (1 mg/mL) multi-dose injection (CANCELED) PRN, Starting on Tue12/02/23 at 1117, Until Tue12/02/23 at 1543, Intra-Operative (Intra-Procedure), Routine 1117 (Given - Provider: Kwabena Nevarez RN)1129 (Given - Provider: Hawa Guzmán RN) nitroGLYcerin (Nitrostat) disintegrating tablet 0.4 mg 0.4 mg, Sublingual, EVERY 5 MIN PRN, Starting on 11/28/23 at 1105, Until 12/04/23 at 1625, Chest pain, May repeat every 5 minutes for a total of three doses. Notify provider if chest pain not relieved with nitroglycerin. Do not administer nitroglycerin if the patient has received or taken phosphodiesterase (PDE-5) inhibitors such as sildenafil, tadalafil or vardenafil within the last 24 to 72 hours., Routine 1158 ([facility] Hold - Provider: Admin Adt - Reason: Transfer to a Procedural area)1543 ([facility] Unhold - Provider: Admin Adt) ondansetron (Zofran) tablet 4 mg 4 mg, Oral, EVERY 8 HOURS PRN, Starting on 11/28/23 at 1232, Until 12/04/23 at 1625, Nausea, Routine 1158 ([facility] Hold - Provider: Admin Adt - Reason: Transfer to a Procedural area)1543 ([facility] Unhold - Provider: Admin Adt) 0709 (Given - Provider: Mark Hooper RN) oxyCODONE-acetaminophen (Percocet) 5-325 mg per tablet 2 tablet 2 tablet, Oral, EVERY 8 HOURS PRN, Pain, Starting on 11/28/23 at 1232, Until 12/04/23 at 1625 0002 (Given - Provider: Santa Barrett RN)1036 (Given - Provider: Mark Hooper RN)1158 ([facility] Hold - Provider: Admin Adt - Reason: Transfer to a Procedural area)1543 ([facility] Unhold - Provider: Admin Adt)2024 (Given - Provider: Lukas Dia RN) 0654 [...] chew, or suck on tablet., Routine 1158 ([facility] Hold - Provider: Admin Adt - Reason: Transfer to a Procedural area)1543 ([facility] Unhold - Provider: Admin Adt) 1616 [...] chew, or suck on tablet., Routine 1158 ([facility] Hold - Provider: Admin Adt - Reason: Transfer to a Procedural area)1543 ([facility] Unhold - Provider: Admin Adt) 1616 (See Alternative - Provider: Mark Hooper RN) sodium chloride 0.9 % (flush) (BD PosiFlush Normal Saline 0.9) flush 5-20 mL 5-20 mL, Intravenous, EVERY 1 MIN PRN, Starting on 11/28/23 at 1105, Until 12/04/23 at 1625, flush, Flush pertains to all indwelling lines. Flush per protocol found in the job aid using the link provided on this medication record., Routine 1158 ([facility] Hold - Provider: Admin Adt - Reason: Transfer to a Procedural area)1543 ([facility] Unhold - Provider: Admin Adt) Linked Groups [...] Routine documented in this encounter Care Teams Remelt Pan Tank Operator Relationship Specialty Start Date End Date Gaudencio Scales DO [address] [place] [address] PCP - General Family Medicine 11/28/23 documented as of this encounter
--- OUTSIDE RECORDS SUMMARY | 2024-07-27 12:51 | XMS_ITS | Encounter Summary ---
Author Organization [facility], Located Within [facility] [place] [address] Care Team Providers Care Chemist Organic Name Role Phone Eddie Hawthorne VERNELL Primary Care Provider Encounter Details Date Type Department Care Team (Late st Contact Info) Description 07/14/2018 12:05 AM EDT Ancillary Procedure Radiology Library [place] [phone] Jr Fulton MD [facility] [address] [address] Social History Tobacco Use Types Packs/Day Years Used Date Smoking Tobacco: Never Assessed Sex and Gender Information Value Date Recorded Sex Assigned at Not on file Gender Identity Not on file Sexual Orientation Not on file documented as of this encounter Plan of Treatment Upcoming Encounters Date Type Department Care Team (Latest Contact Info) Description 07/30/2024 8:40 AM EST Hospital [place] [phone] Jr Fulton MD [facility] [place] [address] 07/30/2024 8:45 AM EST [place] [phone] Jr Fulton MD [facility] [place] [address] 07/30/2024 9:20 AM EST Hospital [place] [phone] Jr Fulton MD [facility] [place] [address] 07/30/2024 10:51 AM EST Hospital Encounter [facility] [place] [phone] Jr Fulton MD [facility] [place] [address] 07/30/2024 10:51 AM EST Anesthesia Event [facility] [place] [address] Megan Orona [place] [address] 07/30/2024 10:51 AM EST - 07/30/2024 1:11 PM EST Surgery [facility] [address] Jr Fulton MD [facility] [place] [address] MASTECTOMY PARTIAL (WRVU 10.13) 08/22/2024 2:00 PM EST Office Visit General Surgery at [place] [address] Cindy Pierce APRN [facility] [place] [address] 08/22/2024 3:00 PM EST Office Visit Hematology and Oncology at [address] Soo Lyn MD [facility] [place] [address] 08/27/2024 9:30 AM EST Scheduled View Only Radiation Oncology at [address] [phone] Rad NurseSt [place]vall[place] 08/27/2024 10:00 AM EST Office Visit Radiation Oncology at [address] [phone] Paradise Prado MD [facility] [place] [address] 2024 1:00 PM EDT Office Visit Cardiology at [address] [place] [address] Ham Montenegro MD [facility] [address] Scheduled Procedures Name Priority Associated Diagnoses Date/Ti [...] Comments FILM LIBRARY STORAGE ONLY MAMMO Routine 07/14/2018 12:05 AM EDT documented in this encounter Results * Film Library- Storage Only Mammo (07/14/2018 12:05 AM EDT) Narrative [facility] RAD - 02/21/2024 8:48 PM EDT This exam is auto-finalizing. It's purpose is for storage only. Jr Fulton MD IMG FILM LIBRARY ORD ERABLES [place], [place] documented in this encounter Visit Diagnoses Not on filedocumented in this encounter Care Teams Chemist Organic Relationship Specialty Start Date End Date Eddie Hawthorne APRN [address] [place] [address] PCP - General 08/11/10 11/27/23 documented as of this encounter
--- OUTSIDE RECORDS SUMMARY | 2024-07-27 12:51 | XMS_ITS | Encounter Summary ---
Author Organization [facility] Address [address] [place] [address] Care Team Providers Care Right Of Way Worker Name Role Phone Unavailable Primary Care Provider Unavailabl e Encounter Details Date Type Department Care Team (Late st Contact Info) Description 03/07/2007 Results Only [facility] conversion [address] [place] [address] Maryann Fisher MD [address] [phone] Social History Tobacco Use Types Packs/Day Years Used Date Smoking Tobacco: Never Assessed Sex and Gender Information Value Date Recorded Sex Assigned at Not on file Gender Identity Not on file Sexual Orientation Not on file documented as of this encounter Plan of Treatment Not on file documented as of this encounter Procedures Procedure Name Priority Date/Time Associated Diagnosis Comments CHLAMYDIA/GC AMPLIFIED PROBE Routine 03/07/2007 8:23 EDT documented in this encounter Results * CHLAMYDIA/GC AMPLIFIED PROBE (03/07/2007 8:23 EDT) Specimen Description Urine [facility] Result Disregard previous report. Specimen incorrectly identified. [facility] Report Status Final [id number] [facility] 03/07/2007 8:23 EDT 03/07/2007 11:32 EDT Maryann Fisher MD MICROBIOLOGY - GENER AL ORDERABLES [facility] [address] [place] [address] documented in this encounter Visit Diagnoses Not on filedocumented in this encounter
--- OUTSIDE RECORDS SUMMARY | 2024-07-27 12:51 | XMS_ITS | Encounter Summary ---
Author Organization [facility] Address [address] [place] [address] Care Team Providers Care Perfect Binder Feeder Offbearer Name Role Phone Unknown, Provider Primary Care Provider Unava ilable Encounter Details Date Type Department Care Team (Late st Contact Info) Description 05/31/2024 Lab Requisition [facility] Pathology & Laboratory Medicine - [facility] [address] [place] [address] Outr Resulting Lab, Provider Social History Tobacco Use Types Packs/Day Years Used Date Smoking Tobacco: Never Assessed Sex and Gender Information Value Date Recorded Sex Assigned at Not on file Gender Identity Not on file Sexual Orientation Not on file documented as of this encounter Plan of Treatment Not on file documented as of this encounter Procedures Procedure Name Priority Date/Time Associated Diagnosis Comments LEGIONELLA ANTIGEN DETECTION, URINE Routine 05/31/2024 14:52 EDT documented in this encounter Results * LEGIONELLA ANTIGEN DETECTION, URINE (05/31/2024 14:52 EDT) Legionella Antigen Detection Negative Negative 05/31/2024 23:[address] [facility] Urine URINE / Unknown 05/31/2024 1 4:52 EDT 05/31/2024 21:41 EDT Provider Outr Resulting Lab MICROBIOLOGY - GENERAL ORDERABLES [facility] [address] [place], [place] [address] documented in this encounter Visit Diagnoses Not on filedocumented in this encounter Care Teams Perfect Binder Feeder Offbearer Relationship Specialty Start Date End Date Unknown, Provider, PCP - General 07/29/15 documented as of this encounter
--- OUTSIDE RECORDS SUMMARY | 2024-07-27 12:51 | XMS_ITS | Encounter Summary ---
Author Organization [facility] Address [address] [place] [address] Care Team Providers Care Government Contracts Manager Name Role Phone Unavailable Primary Care Provider Unavailabl e Encounter Details Date Type Department Care Team (Late st Contact Info) Description 05/17/2002 Results Only [facility] conversion [address] [place] [address] Lluvia Rosen, TOOLS ADMINISTRATOR [address] [place] [address] Social History Tobacco Use Types Packs/Day Years Used Date Smoking Tobacco: Never Assessed Sex and Gender Information Value Date Recorded Sex Assigned at Not on file Gender Identity Not on file Sexual Orientation Not on file documented as of this encounter Plan of Treatment Not on file documented as of this encounter Procedures Procedure Name Priority Date/Time Associated Diagnosis Comments CYTOPATHOLOGY Routine 05/17/2002 0:00 EDT documented in this encounter Results * CYTOPATHOLOGY (05/17/2002 0:00 EDT) Pathology Report: CYTOPATHOLOGY REPORT Reports generated via electronic interface contain original data; however they are lacking the format of the original report. Caution should be taken when reading/interpreti ng unformatted reports. Name: ? IAIN CORRIGAN ? Accession #: ? [id number] : ? 1965 (Age: 36) ??F ?Collect Date: ? 05/17/2002 Location: ? [facility] ? Receive Date: ? 05/22/2002 Provider: ?LLUVIA ROSEN APRN Copy to: ? Specimen/Source: ?ThinPrep Pap Test, Cervix/Endocervix Last Menstrual Period: ? 05/10/02 ? SPECIMEN ADEQUACY ? Satisfactory for Evaluation - transformation zone component present GENERAL CATEGORIZATION ? Negative for Intraepithelial Lesion or Malignancy ? Document reviewed and electronically signed by: ? EDUARD Lewis(ASCP) ? Report Date: ??05/23/2002 07:42 End of Report [facility] 05/17/2002 05/22/2002 Lluvia Rosen APRN PATHOLOGY ORDERABLES [facility] [address] [place] [address] documented in this encounter Visit Diagnoses Not on filedocumented in this encounter
--- OUTSIDE RECORDS SUMMARY | 2024-07-27 12:51 | XMS_ITS | Encounter Summary ---
Author Organization [facility] Address [address] [place] [address] Care Team Providers Care Compensation Intern Name Role Phone Unknown, Provider Primary Care Provider Unava ilable Encounter Details Date Type Department Care Team (Late st Contact Info) Description 02/10/[address] [facility] Pathology & Laboratory Medicine - [facility] [address] [place] [address] Grayson Echeverria MD [address] [place] [address], [address] [place], [place] [id number] Encounter for other general examination Social History Tobacco Use Types Packs/Day Years Used Date Smoking Tobacco: Never Assessed Sex and Gender Information Value Date Recorded Sex Assigned at Not on file Gender Identity Not on file Sexual Orientation Not on file documented as of this encounter Plan of Treatment Not on file documented as of this encounter Procedures Procedure Name Priority Date/Time Associated Diagnosis Comments SURGICAL PATHOLOGY Today 02/10/2024 12 :41 EDT Encounter for other general examination documented in this encounter Results * SURGICAL PATHOLOGY (02/10/2024 12:41 EDT) Amendment Comment This amendment is being issued to correct the hospital location from which the specimen was obtained. The results otherwise remain unchanged. 02/15/2024 10:50 EDT [facility] Addendum Comment ER/OK RESULTS: Tissue submitted: Paraffin embedded tissue block labelled A2 from [facility] Pathology Immunohistochemical assays for estrogen receptors (SP1, [place]) and progesterone receptors (16, Le[place]) have been performed on this specimen. Intranuclear receptor complexes were visualized on tissue sections using an HRP polymer immunohistochemical technique. This assay is intended for paraffin-embedded tissue fixed in 10% neutral buffered formalin for 6-72 hours. Results are reported as negative (<1% nuclear staining) or positive with the proportion of positive cells noted. Estrogen receptor expression in <5% of tumor cells may not have a strong interaction with estrogen receptor modulators such as Tamoxifen. Reference: ASCO-CAP Guideline Recommendations for IHC testing of ER and OK. J Clin Oncol 2010;28:0151-6026. NOTE: One or more of the reagents used in immunoperoxidase testing in this case may not have been cleared or approved by the U.S. Food and Drug Administration (FDA). The FDA has determined that such clearance or approval is not necessary. These tests are used for clinical purposes. They should not be regarded as investigational or for research. These reagents' performance characteristics have been determined by [facility] and/or by the referring laboratory. The positive and negative controls worked appropriately. If immunoperoxidase staining has been performed on alcohol fixed cytology specimens, which has not been fully validated, the assays should be interpreted with caution and correlated with clinical data. This laboratory is certified under the Clinical Laboratory Improvement Amendments of 1988 (CLIA-88) as qualified [...] Paraffin embedded tissue block labelled A2 From [facility] Pathology Fixative: Formalin This immunohistochemical assay is [...] performed under appropriate conditions according to the shipping and receiving clerk's instructions with appropriate assay and tissue controls using an Anti-Her2 (4B5) Rabbit Monoclonal Antibody ([place]). Her2 Scoring Guidelines (invasive tumor component only) [...] Her2 Testing. J Clin Oncol 2018; epub (www.jco.org March 07, 2018) *FDA statement Assay results Her2 IHC Score: 0/negative Tumor location: Left Breast NOS Cold ischemic time and total formalin fixative time appropriate: Yes Cells with complete membrane staining: None Membrane staining intensity: N/A Partial membrane staining: Absent Cytoplasmic staining: Absent Staining pattern: N/A Staining in benign epithelium: NA The Her2 assay performed is interpreted as: NEGATIVE 02/15/2024 10:50 [facility] Addendum electronically signed by Drew Sams MD on 02/15/2024 at 1039 Note to Patient The following pathology results have been interpreted by your pathologist and may be available to you before your health provider has had the opportunity to review them. Please allow time for your provider to receive these results and explore management options, if applicable. 02/15/2024 10:50 [facility] Final Diagnosis A. BREAST, LEFT, NOT OTHERWISE SPECIFIED, CORE BIOPSY: - Adenocarcinoma, invasive, ductal type, nuclear grade 2. See comment. 02/15/2024 10:50 [facility] Diagnosis Comment Estrogen and progesterone receptor assays and Her2 studies have been ordered and results will be issued in an Addendum. 02/15/2024 10:50 [facility] Attestation By the signature below, the attending physician certifies that they have 1) personally conducted a gross and/or microscopic examination of the described specimen(s), and/or personally interpreted the results of laboratory testing of the described specimen(s), and 2) personally rendered or confirmed the above diagnosis. 02/15/2024 10:50 [facility] Amendment electronically signed by Drew Sams MD on 02/15/2024 at 1050 at 1109 Clinical History R/O cancer 02/15/2024 10:50 [facility] Gross Description A. Received in formalin labelled with proper patient identification (initials K, J) and L breast core needle are 3 yellow and white fibrofatty tissue cores (1.5 cm to 1.1 cm in length, and each 0.1 cm in diameter). Entirely submitted in A1-A2. Time removed from patient: 12:41 hours 02/10/2024 Time placed in formalin: 12:41 hours 02/10/2024 Time out of formalin: 00:30 hours 02/14/2024 Breanne Kevin 02/11/2024 9:56 02/15/2024 10:50 EDT [facility] Performing Lab [facility] 02/15/2024 10:50 EDT [facility] Scanned Images 02/15/2024 10:50 EDT [facility] Tissue BREAST STRUCTURE / Unknown 02/10/2024 12:41 EDT 02/10/2024 16:52 EDT Grayson Echeverria MD PATHOLOGY ORDERABLES [facility] [address] [place] [phone] documented in this encounter Visit Diagnoses Diagnosis Encounter for other general examination documented in this encounter Care Teams Compensation Intern Relationship Specialty Start Date End Date Unknown, Provider, PCP - General 07/29/15 documented as of this encounter
--- OUTSIDE RECORDS SUMMARY | 2024-07-27 12:51 | XMS_ITS | Encounter Summary ---
Author Organization [facility] Address [facility] [place] [address] Care Team Providers Care Welder Boilermaker Name Role Phone RachelmauryGaudencio DO Primary Care Provider [phone] Encounter Details Date Type Department Care Team (Late st Contact Info) Description 11/28/2023 Telephone Cardiology [facility] [place] [phone] Kirill Almonte MD [facility] [place] [address] Social History Tobacco Use Types Packs/Day Years Used Date Smoking Tobacco: Former Cigarettes 1 40 0 11/17/1981 - 11/17/2021 Smokeless Tobacco: Never [facility] [...] a long term (including now)? No 11/29/2023 DH IPV Inpatient [...] encounter Miscellaneous Notes * Telephone Encounter - Kirill Almonte MD - 11/28/2023 7:51 AM EDT Images from the original note were not included. 11/28/2023 Oksana Betancourt Initial Contact Date: 11/28/2023 Initial contact time: 7:51 AM Referring Provider: Dr. Randall Patient Location: [facility] Past Medical History: ASCVD with prior stenting (unclear anatomy) HTN HLD Known LBBB morphology Presenting Symptoms per OSH: The patient presented with acute onset shortness of breath this morning. She denies any chest pain.She reports this does not feel like her prior CA. She endorses back pain. Pertinent Diagnostic Findings: ECG showing LBBB Troponin pending CXR showing pulmonary edema (unavailable for my viewing) Past cardiac studies: None available OSH Interventions: Placing on BiPAP Plan: This is a 57 year old lady with known ASCVD presenting for acute onset shortness of breath. I was called to assess if ECG met Sgarbossa criteria in the setting of LBBB. The ECG is not of great quality but the ECG I have available does not meet Sgarbossa criteria. The provider will obtain another ECG, get troponin, do bedside POCUS and call us back when more data available. Above recommendations were based on my discussion with Dr. Randall; I have not personally interviewed or examined this patient. Advised to call the transfer center back with any changes in the patient condition. ADDENDUM: Dr. Randall called back to let me know bedside POCUS showed LVEF 10-15%, troponin returned at 6000. ECG repeated (I do not have this available for my viewing) but reportedly looks less concerning. Given troponin and bedside POCUS I accepted to [facility] as high risk NSTEMI. Patient loaded with aspirin 325 mg, Plavix 600 mg, and heparin. I have spoken to the slabber to notify them. Kirill Almonte MD Machine Filler documented in this encounter Plan of Treatment Upcoming Encounters Date Type Department Care Team (Latest Contact Info) Description 07/30/2024 8:40 AM EST Hospital Encounter Mammography at [place] [phone] Jr Fulton MD [facility] [place] [address] 07/30/2024 8:45 AM EST Appointment Mammography at [place] [phone] Jr Fulton MD [facility] [place] [address] 07/30/2024 9:20 AM EST Hospital Encounter Mammography at [place] [phone] Jr Fulton MD [facility] [place] [address] 07/30/2024 10:51 AM EST Hospital Encounter [facility] [place] [phone] Jr Fulton MD [facility] [place] [address] 07/30/2024 10:51 AM EST Anesthesia Event [facility] [place] [phone] Megan Oron[place] [address] 07/30/2024 10:51 AM EST - 07/30/2024 1:11 PM EST Surgery [facility] [place] [phone] Jr Fulton MD [facility] [place] [address] MASTECTOMY PARTIAL (WRVU 10.13) 08/22/2024 2:00 PM EST Office Visit General Surgery at [place] [phone] Cindy Pierce APRN [facility] [place] [address] 08/22/2024 3:00 PM EST Office Visit Hematology and Oncology at [place] [phone] Soo Lyn MD [facility] [place] [address] 08/27/2024 9:30 AM EST Scheduled View Only Radiation Oncology at [address] [phone] [place] 08/27/2024 10:00 AM EST Office Visit Radiation Oncology at [address] [phone] Paradise Prado MD [facility] [place] [address] 2024 1:00 PM EDT Office Visit Cardiology at [address] [place] [phone] Ham Montenegro MD [facility] [place] [address] Scheduled Procedures Name Priority Associated Diagnoses Date/Ti [...] on filedocumented in this encounter Care Teams Welder Boilermaker Relationship Specialty Start Date End Date Gaudencio Scales DO [address] [place] [address] [place] [address] PCP - General Family Medicine 11/28/23 documented as of this encounter
--- OUTSIDE RECORDS SUMMARY | 2024-07-27 12:51 | XMS_ITS | Referral Summary ---
Author Organization [facility] Address [address] [place] [address] Care Team Providers Care Teaching Young Name Role Phone Unknown, Provider Primary Care Provider Unava ilable Encounters Date Type Department Care Team Description 05/31/2024 Lab Requisition [facility] Pathology & Laboratory Medicine - [facility] [address] [place] [address] Outr Resulting Lab, Provider from Last 3 Months Social History Tobacco Use Types Packs/Day Years Used Date Smoking Tobacco: Never Assessed Sex and Gender Information Value Date Recorded Sex Assigned at Not on file Gender Identity Not on file Sexual Orientation Not on file Plan of Treatment Not on file Procedures Procedure Name Priority Date/Time Associated Diagnosis Comments LEGIONELLA ANTIGEN DETECTION, URINE Routine 05/31/2024 14:52 EDT from Last 3 Months Results * LEGIONELLA ANTIGEN DETECTION, URINE (05/31/2024 14:52 EDT) Legionella Antigen Detection Negative Negative 05/31/2024 23:20 EDT [facility] Urine URINE / Unknown 05/31/2024 1 4:52 EDT 05/31/2024 21:41 EDT Provider Outr Resulting Lab MICROBIOLOGY - GENERAL ORDERABLES [facility] [address] [place], [place] [address] from Last 3 Months Care Teams Teaching Young Relationship Specialty Start Date End Date Unknown, Provider, PCP - General 07/29/15
--- OUTSIDE RECORDS SUMMARY | 2024-07-27 12:51 | XMS_ITS | Clinical Summary ---
Author Organization [facility] Address [address] [place] [address] Care Team Providers Care Box Cutter Name Role Phone Unknown, Provider Primary Care Provider Unava ilable Encounters Date Type Department Care Team Description 05/31/2024 Lab Requisition [facility] Pathology & Laboratory Medicine - [address] [id number] Outr Resulting Lab, Provider from Last 3 Months Social History Tobacco Use Types Packs/Day Years Used Date Smoking Tobacco: Never Assessed Sex and Gender Information Value Date Recorded Sex Assigned at Not on file Gender Identity Not on file Sexual Orientation Not on file Plan of Treatment Health Maintenance Due Date Last Done Comments Hepatitis C Screen 1965 COVID-19 Vaccine (2022-24 season) 2023 RSV Immunization ( o r 60+ Years) (1 - 1-dose 60+ series) 2023 Procedures Procedure Name Priority Date/Time Associated Diagnosis Comments LEGIONELLA ANTIGEN DETECTION, URINE Routine 05/31/2024 14:52 EDT from Last 3 Months Results * LEGIONELLA ANTIGEN DETECTION, URINE (05/31/2024 14:52 EDT) Legionella Antigen Detection Negative Negative 05/31/2024 23:20 EDT [facility] Urine URINE / Unknown 05/31/2024 1 4:52 EDT 05/31/2024 21:41 EDT Provider Outr Resulting Lab MICROBIOLOGY - GENERAL ORDERABLES [facility] [address] [place] [address] from Last 3 Months Care Teams Box Cutter Relationship Specialty Start Date End Date Unknown, Provider, PCP - General 07/29/15
[2024-07-27 14:18] LABS: ALT 167 U/L (14-59); AST 271 U/L (15-37); Albumin 2.5 g/dL (3.4-5.0); Bilirubin, Direct 2.5 mg/dL (0.0-0.2); Bilirubin, Total 2.88 mg/dL (0.2-1.0); Total Protein 7.9 g/dL (6.4-8.2)
[2024-07-27 14:19] LABS: Alkaline Phosphatase 2964 U/L (46-116)
== END 2024-07-27 12:37 | disposition home or self-care (01) ==
LOC: LBN 12:36
PROVIDERS: PCP Family Medicine; Visit Provider Family Medicine
DX: R74.8 Abnormal levels of other serum enzymes (principal)
CPT/HCPCS: 80076

== ENCOUNTER 2024-08-20 12:57 | Outpatient (CLI) | payer MEDICARE, MEDICAID, SELFPAY ==
[2024-08-20 12:04] LABS: Bilirubin Small (Negative); Blood Large (Negative); Clarity Sl Cloudy (Clear); Glucose Negative (Negative); Ketones Negative (Negative); Leukocyte Esterase Negative (Negative); Nitrite Negative (Negative)
[2024-08-20 12:04] LABS: HGB 9.4 g/dL (11.2-15.7); MCH 28.9 pg (27.0-33.0); MCHC 32.4 % (32.0-36.0); MCV 89 fL (80-95); MPV 12.5 fL (8.0-11.0); Platelet Count 569 10^3/uL (130-400); RBC 3.25 10^6/uL (3.93-5.22); RDW 20.2 % (11.7-14.6); RDW-SD 64.5 fL; WBC 10.69 10^3/uL (4.4-10.8)
[2024-08-20 12:16] LABS: ALT 276 U/L (14-59); AST 784 U/L (15-37); Albumin 2.2 g/dL (3.4-5.0); Anion Gap 13.7 mmol/L (3-11); BUN 26 mg/dL (7-18); Bilirubin, Total 1.48 mg/dL (0.2-1.0); CO2 28.3 mmol/L (21.0-32.0); CREATININE 2.1 mg/dL (0.55-1.02); Calcium 9.9 mg/dL (8.5-10.1); Chloride 92 mmol/L (98-107); Estimated GFR 26.48 (mL/min/1.73m2); Glucose 128 mg/dL (74-106); Magnesium 2.3 mg/dL (1.8-2.4); Sodium 134 mmol/L (136-145); Total Protein 8.9 g/dL (6.4-8.2)
[2024-08-20 12:17] LABS: Alkaline Phosphatase 2244 U/L (46-116)
[2024-08-20 12:21] LABS: Potassium 2.9 mmol/L (3.5-5.1)
[2024-08-20 12:23] LABS: Bacteria Moderate HPF (Negative); C & S Indicated? No/Sq. Contamination; Crystals Moderate Amorphous HPF (Negative); Epithelial Cells Many HPF (Negative); Mucus Trace (Negative)
[2024-08-21 09:58] LABS: Prealbumin 16 mg/dL (20-40)
== END 2024-08-20 12:58 | disposition home or self-care (01) ==
LOC: LBO 12:57
PROVIDERS: PCP Family Medicine; Visit Provider Family Medicine
DX: R63.0 Anorexia (principal); I50.33 Acute on chronic diastolic (congestive) heart failure; R53.1 Weakness
CPT/HCPCS: 36415; 80053; 85027; 81003; 81015; 83735; 84100; 84134

== ENCOUNTER 2024-12-31 11:00 | Outpatient (CLI) | payer MEDICARE, MEDICAID, SELFPAY ==
--- NOTE | 2024-12-31 11:00 | RT.EKG_ITS ---
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
== END 2024-12-31 11:01 | disposition home or self-care (01) ==
PROVIDERS: PCP Family Medicine; Visit Provider Internal Medicine
DX: C50.412 Malignant neoplasm of upper-outer quadrant of left female breast (principal); I44.7 Left bundle-branch block, unspecified
CPT/HCPCS: 93005; 93010

== ENCOUNTER 2025-01-07 19:42 | Emergency (ER) | payer MEDICARE, MEDICAID, SELFPAY ==
[2025-01-07] VITALS (35 sets, daily range): BP systolic 128–148; BP diastolic 45–81; PULSE 70–93; RESP 11–25; TEMP 36.4; O2SAT 95–100
--- NOTE | 2025-01-07 19:45 | RT.EKG_ITS ---
APPROVED REPORT Exam: Resting ECG Reason for Exam: Patient Location: E HR:86 bpm ECG Measurements Heart Rate 86 AXIS TX 131 P 69 QRSd 143 QRS 4 QT 460 T 60 QTc 550 Conclusion Sinus rhythm. 86 LBBB no sgarbossa no stemi
[2025-01-07] MEDS: Aspirin 81 MG CHEW 324 MG CH (20:15)
--- NOTE | 2025-01-07 20:15 | DI.CT_ITS ---
Exam(s) CT CHEST PE CTA EXAM: CT CHEST PE CTA CLINICAL HISTORY: CHEST PAIN. TECHNIQUE: Imaging Protocol: Axial CT angiography was performed with multi-slice acquisition and mu lti-planar and/or 3D reconstructions. Lung Computer Aided Detection (CAD) was utilized. CONTRAST MATERIAL: Intravenous: Omnipaque 350 contrast volume:80 mL COMPARISON: CT CT CHEST PE CTA from 05/29/2024 CR,XR XR CHEST 2V PA LATERAL from 01/07/2025 FINDINGS: Tracheobronchial tree: Patent where visualized. No bronchiectasis. Pulmonary parenchyma: There is a stable area of scarring in the left lung apex. There is a new infil trate seen in the periphery of the left upper lobe and left lingula. There is a stable area of scarr ing in the right lung apex. There are small patchy infiltrates seen in the right upper lobe and righ t lower lobe. There are infiltrates also seen in the left lower lobe. There is a persistent area of nodular scarring in the posterior medial right lower lobe. Pulmonary Arteries: No evidence of filling defect to suggest pulmonary emboli. Mediastinum and Freida: No dominant adenopathy or fluid collection. The esophagus is unremarkable. Th ere is a small hiatal hernia. Visualized thyroid gland: Unremarkable. Pleura: No effusion or pneumothorax. Heart: The heart is mildly enlarged. Three vessel coronary artery calcification is present. There i s again seen an aortic stent graft. No pericardial effusion. Aorta: Thoracic aorta non-dilated. Atherosclerotic calcification is present. Upper abdomen: Unremarkable. Tubes, Catheters, and Lines: There is a port in the right chest wall. Soft tissues: There is mild edema seen in the left breast with deformity of the skin surface suggesti ng prior lumpectomy. Please correlate with the patient's clinical history. Bones: Within normal limits for the patient's age. IMPRESSION: 1. No evidence of a pulmonary embolism or thoracic aortic aneurysm. 2. Multifocal pulmonary infiltrates which may represent pneumonia. Please correlate clinically. 3. Stable bilateral apical scarring. 4. Changes in the lateral aspect of the left breast suggesting prior lumpectomy. Please correlate wi th patient's clinical history. 5. The preliminary [facility] report was reviewed. RADIATION DOSE DELIVERED: 80.44mGy.cm Total DLP DATA REPOSITORY: All CT scans at this facility are submitted to the National Radiology Data Registry (NRDR) Dose Index Registry (DIR) with the [employer] ([employer]). RADIATION OPTIMIZATION: All CT scans at this facility use at least one of these dose optimization te chniques: automated exposure control; mA and/or kV adjustment per patient size (includes targeted exa ms where dose is matched to clinical indication); or iterative reconstruction.
[2025-01-07] MEDS: Methocarbamol 500 MG TAB 1000 MG PO (20:34)
[2025-01-07 20:37] LABS: Abs Immature Grans 0.01 10^3/uL (0.0-0.06); Absolute Basophil Count 0.05 10^3/uL (0.0-0.2); Absolute Lymphocyte Count 4.22 10^3/uL (1.2-3.4); Absolute Monocyte Count 0.77 10^3/uL (0.1-0.8); Absolute Neutrophil Count 2.32 10^3/uL (1.2-6.7); Basophils % 0.7 %; HCT 40.7 % (36.0-46.0); Immature Grans % 0.1 %; Lymphocytes % 57.3 %; MCH 28.4 pg (27.0-33.0); MCHC 31.9 % (32.0-36.0); MCV 89 fL (80-95); Monocytes % 10.4 %; Neutrophils % 31.5 %; Platelet Count 468 10^3/uL (130-400); RBC 4.57 10^6/uL (3.93-5.22); RDW-SD 55.7 fL; WBC 7.37 10^3/uL (4.4-10.8)
[2025-01-07 21:02] LABS: ALT 53 U/L (14-59); AST 37 U/L (15-37); Albumin 3.5 g/dL (3.4-5.0); Alkaline Phosphatase 823 U/L (46-116); Anion Gap 8.1 mmol/L (3-11); BUN 22 mg/dL (7-18); Bilirubin, Total 0.5 mg/dL (0.2-1.0); CO2 28.9 mmol/L (21.0-32.0); CREATININE 1.7 mg/dL (0.55-1.02); Calcium 10.2 mg/dL (8.5-10.1); Chloride 100 mmol/L (98-107); Estimated GFR 33.91 (mL/min/1.73m2); Glucose 114 mg/dL (74-106); NT-proBNP 1921 pg/mL (<300); Potassium 3.6 mmol/L (3.5-5.1); Sodium 137 mmol/L (136-145); Total Protein 8.6 g/dL (6.4-8.2)
[2025-01-07 21:05] LABS: Troponin I 135 ng/L (<or=51)
[2025-01-07] MEDS: Normal Saline - Diluent 50 ML VIAL IJ (21:10)
[2025-01-07] MEDS: Omnipaque 350 MG/ML 100 ML BTL IJ (21:11)
[2025-01-07 22:06] LABS: Troponin I 135 ng/L (<or=51)
--- NOTE | 2025-01-07 22:09 | DI.[facility]_ITS ---
PROCEDURE INFORMATION: Exam: CTA Chest With Contrast Exam date and time: 01/07/2025 9:15 PM Age: 59 years old Clinical indication: Pain; Left-sided; Prior surgery; Surgery date: 6+ months; Surgery type: Coronary artery stentm aortic valve replacement, left beast biopsy TECHNIQUE: Imaging protocol: Computed tomographic angiography of the chest with contrast. Exam focused on the arteries. 3D rendering (Not supervised by radiologist): MIP and/or 3D reconstructed images were created by the technologist. Contrast material: OMNIPAQUE 350; Contrast volume: 80 ml; Contrast route: INTRAVENOUS (IV); COMPARISON: CT CHEST PE CTA 05/29/2024 2:11 PM FINDINGS: Pulmonary arteries: No evidence of pulmonary embolism. Aorta: Moderate atherosclerotic calcifications of the thoracic aorta. Thyroid: No thyroid lesions. No thyroid enlargement. Trachea: The central airways clear. Lungs: Patchy bilateral upper and lower lobe airspace opacities favors pneumonia. Pleural spaces: Unremarkable. No pneumothorax. No pleural effusion. Heart: No cardiomegaly or pericardial effusion. Prosthetic aortic valve Lymph nodes: No axillary adenopathy. Bones/joints: Unremarkable. No acute fracture. Soft tissues: Moderate edema within the left breast tissue correlate with recent biopsy. IMPRESSION: 1. No evidence of pulmonary embolism. 2. Patchy bilateral upper and lower lobe airspace opacities favors pneumonia. Dictated and Authenticated by: Hilary Solomon MD. Orderin Lenore Lamar MD
--- NOTE | 2025-01-07 22:15 | DI.RAD_ITS ---
Exam(s) XR CHEST 2V PA LATERAL EXAM: XR CHEST 2V PA LATERAL CLINICAL HISTORY: CHEST PAIN TECHNIQUE: 2D digital imaging was performed of the chest. Two images were obtained. PA and lateral views were obtained. COMPARISON: CR,XR XR CHEST 2V PA LATERAL from 07/08/[address] CHEST PE CTA from 01/07/2025 FINDINGS: MEDIASTINUM: Normal. HEART: Normal. Aortic valve prosthesis is again seen. PULMONARY VASCULATURE: Normal. LUNGS: There is a left perihilar infiltrate present. The right lung appears relatively clear. The i nfiltrate seen on the patient's CT scan from the same day are not well visualized on the chest x-ray. PLEURAL SPACE: No pleural effusion or pneumothorax. BONE:Within normal limits for the patient's age. OTHER FINDINGS:There is a port in the right chest wall. The tip of the catheter is in good position. There are surgical clips in the right upper quadrant suggesting prior cholecystectomy. IMPRESSION: 1. Pulmonary infiltrates most suggestive for pneumonia. 2. The preliminary [facility] report was reviewed. DATA REPOSITORY: RADIATION DOSE DELIVERED:
--- NOTE | 2025-01-07 22:43 | DI.[facility]_ITS ---
PROCEDURE INFORMATION: Exam: XR Chest Exam date and time: 01/07/2025 10:31 PM Age: 59 years old Clinical indication: Other: Chest pain TECHNIQUE: Imaging protocol: Radiologic exam of the chest. Views: 2 views. COMPARISON: CT CHEST PE CTA 01/07/2025 9:15 PM FINDINGS: Tubes, catheters and devices: Stable right chest port Lungs: Bilateral interstitial infiltrates, correlate to finding seen on recent CT scan, favors pneumonia Pleural spaces: Unremarkable. No pleural effusion. No pneumothorax. Heart/Mediastinum: Unremarkable. No cardiomegaly. Vasculature: Aortic stent graft noted. Bones/joints: Unremarkable. IMPRESSION: Bilateral interstitial infiltrates, correlate to finding seen on recent CT scan, favors pneumonia Dictated and Authenticated by: Hilary Solomon MD. Orderin Lenore Lamar MD
--- NOTE | 2025-01-07 23:01 | W.ED.GENAD ---
Discharge Plan Disposition Patient Disposition: Home Condition: Stable Discharge Details Clinical Impression: Back pain Primary Care Provider: Gaudencio Scales ED Provider: Myke Grover Home Meds and New Rx's Prescriptions: New lidocaine [Lidoderm] 5 % adhesive patch,medicated 1 patch topical DAILY Qty: 15 0RF Rx Instructions: leave on most painful area for up to 12 hrs methocarbamol 750 mg tablet 750 mg PO TID Qty: 20 0RF No Action naloxone [Narcan] 4 mg/actuation spray,non-aerosol 4 mg intranasal Q2M PRN (Reason: opioid overdose) Qty: 2 0RF Rx Instructions: spray 1 dose into ONE nostril; alternate nostrils w each dose until help arrives (DME) wheeled walker See Rx Instructions .Route .MEDSUPPLY Qty: 1 0RF Rx Instructions: As directed, with seat (DME) wheelchair, manual See Rx Instructions .Route .MEDSUPPLY Qty: 1 0RF Rx Instructions: As directed potassium chloride 20 mEq tablet extended release 20 meq PO DAILY Qty: 60 3RF atorvastatin 80 mg tablet 80 mg PO DAILY Qty: 90 3RF Rx Instructions: 1 tablet daily @ Noon Fish Oil 300-500 mg capsule 1 cap PO DAILY Patient Comments: Did not disclose exact type and dose ferrous sulfate 325 mg (65 mg iron) tablet,delayed release (DR/EC) 325 mg PO DAILY Patient Comments: Patient did not disclose exact dosage multivitamin Tablet 1 tab PO DAILY cholecalciferol (vitamin D3) 25 mcg (1,000 unit) capsule 25 mcg PO DAILY torsemide 20 mg tablet 20 mg PO .COMPLEX Rx Instructions: 20 mg orally every other day unless you gain 2 lbs then daily; nitroglycerin 0.4 mg tablet, sublingual 0.4 mg sublingual Q5M PRN (Reason: chest pain) Qty: 20 0RF Patient Comments: never used Rx Instructions: do not exceed 3 doses per episode oxycodone 10 mg tablet 10 mg PO Q8H MDD 30 mg PRN (Reason: pain) Qty: 84 0RF oxycodone 10 mg tablet 10 mg PO Q8H MDD 30 mg PRN (Reason: pain) Qty: 84 0RF mirtazapine 7.5 mg tablet 7.5 mg PO QHS PRN (Reason: When on chemo) Qty: 60 3RF gabapentin 100 mg capsule 100 mg PO BID Qty: 180 3RF ipratropium-albuterol 0.5 mg-3 mg(2.5 mg base)/3 mL solution for nebulization 3 ml inhalation Q4H PRN metoprolol succinate 50 mg tablet extended release 24 hr 50 mg PO BID lamotrigine 100 mg tablet 100 mg PO BID Qty: 180 3RF levothyroxine 100 mcg tablet 100 mcg PO DAILY Qty: 90 3RF Eliquis 5 mg tablet 5 mg PO BID Qty: 180 3RF sennosides-docusate sodium [Senna with Docusate Sodium] 8.6-50 mg tablet 2 tab-cap PO BID PRN (Reason: constipation) Qty: 270 0RF lidocaine HCl 2 % solution 5 ml PO BID PRN Patient Comments: TAKE 1ML TO 2ML BY MOUTH ONCE DAILY NEEDED FOR PAIN (MUST MIX WITH EQUAL PARTS BENADRYL AND MAALOX) prochlorperazine maleate [Compazine] 10 mg tablet 10 mg PO Q12H PRN Discharge Instructions Additional Instructions: Symptoms today seem consistent with muscular pain. Medications provided to treat this. Your EKG is stable, your imaging does not reveal a blood clot. Please follow-up closely with your primary care doctor for reevaluation if your symptoms persist or return to the emergency department if you develop worsening pain, shortness of breath fever cough HPI General Date/Time Provider Initiated Documentation: 01/07/25 20:05. Limitations to Documentation: no limitations. Information obtained by: patient. HPI Narrative: 59 y F with PMH of Breast Ca (on oral chemo) CHF, Aortic valve disease (s/p TVAR), CAD presents for evaluation of back pain and right sided chest pain. Reports that symptoms started around 6 AM this morning and have been persistent. She has no left-sided chest pain. She has no shortness of breath, cough. No dizziness, nausea or diaphoresis. This does not feel like her prior heart attack. She reports that the pain is in her back and she cannot get comfortable. She has no worsening with deep breath or difficulty with inspiration. No fever chills or recent sick contacts. She reports that she has recently been started on oral chemotherapy and has taken it for the last week. Related Data Home Medications ?Medication ?Instructions ?Recorded ?Confirmed ferrous sulfate 325 mg (65 mg 325 mg PO DAILY 10/03/23 01/07/25 iron) tablet,delayed release multivitamin 1 tab PO DAILY 10/03/23 01/07/25 omega-3 fatty acids-fish oil 300 1 cap PO DAILY 10/03/23 01/07/25 mg-500 mg capsule (Fish Oil) cholecalciferol (vitamin D3) 25 25 mcg PO DAILY 10/04/23 01/07/25 mcg (1,000 unit) capsule ipratropium 0.5 mg-albuterol 3 mg 3 ml inhalation Q4H PRN 12/07/23 01/07/25 (2.5 mg base)/3 mL nebulization soln metoprolol succinate 50 mg 50 mg PO BID 12/07/23 01/07/25 tablet,extended release 24 hr naloxone 4 mg/actuation nasal 4 mg intranasal Q2M PRN opioid 02/14/24 01/07/25 spray (Narcan) overdose #2 ea lidocaine HCl 2 % mucosal solution 5 ml PO BID PRN 05/29/24 01/07/25 torsemide 20 mg tablet 20 mg PO .COMPLEX 07/17/24 01/07/25 potassium chloride 20 mEq 20 meq PO DAILY #60 tabs 08/20/24 01/07/25 tablet,extended release wheelchair, manual #1 ea 08/20/24 01/07/25 wheeled walker #1 ea 08/20/24 01/07/25 lamotrigine 100 mg tablet 100 mg PO BID #180 tabs 08/30/24 01/07/25 apixaban 5 mg tablet (Eliquis) 5 mg PO BID #180 tabs 10/11/24 01/07/25 levothyroxine 100 mcg tablet 100 mcg PO DAILY #90 tabs 10/11/24 01/07/25 atorvastatin 80 mg tablet 80 mg PO DAILY #90 tabs 10/16/24 01/07/25 nitroglycerin 0.4 mg sublingual 0.4 mg sublingual Q5M PRN chest 11/13/24 01/07/25 tablet pain #20 tabs sennosides 8.6 mg-docusate sodium 2 tab-cap (2 x 8.6-50 mg) PO BID 11/29/24 01/07/25 50 mg tablet (Senna with Docusate PRN constipation #270 tabs Sodium) gabapentin 100 mg capsule 100 mg PO BID #180 caps 12/11/24 01/07/25 mirtazapine 7.5 mg tablet 7.5 mg PO QHS PRN When on chemo 12/11/24 01/07/25 #60 tabs oxycodone 10 mg tablet 10 mg PO Q8H PRN pain #84 tabs 12/11/24 01/07/25 oxycodone 10 mg tablet 10 mg PO Q8H PRN pain #84 tabs 12/11/24 01/07/25 lidocaine 5 % topical patch 1 patch topical DAILY #15 ea 01/07/25 (Lidoderm) methocarbamol 750 mg tablet 750 mg PO TID #20 tabs 01/07/25 prochlorperazine maleate 10 mg 10 mg PO Q12H PRN 01/07/25 01/07/25 tablet (Compazine) Previous Rx's ?Medication ?Instructions ?Recorded naloxone 4 mg/actuation nasal 4 mg intranasal Q2M PRN opioid 02/14/24 spray (Narcan) overdose #2 ea potassium chloride 20 mEq 20 meq PO DAILY #60 tabs 08/20/24 tablet,extended release wheelchair, manual #1 ea 08/20/24 wheeled walker #1 ea 08/20/24 lamotrigine 100 mg tablet 100 mg PO BID #180 tabs 08/30/24 apixaban 5 mg tablet (Eliquis) 5 mg PO BID #180 tabs 10/11/24 levothyroxine 100 mcg tablet 100 mcg PO DAILY #90 tabs 10/11/24 atorvastatin 80 mg tablet 80 mg PO DAILY #90 tabs 10/16/24 nitroglycerin 0.4 mg sublingual 0.4 mg sublingual Q5M PRN chest 11/13/24 tablet pain #20 tabs sennosides 8.6 mg-docusate sodium 2 tab-cap (2 x 8.6-50 mg) PO BID 11/29/24 50 mg tablet (Senna with Docusate PRN constipation #270 tabs Sodium) gabapentin 100 mg capsule 100 mg PO BID #180 caps 12/11/24 mirtazapine 7.5 mg tablet 7.5 mg PO QHS PRN When on chemo 12/11/24 #60 tabs oxycodone 10 mg tablet 10 mg PO Q8H PRN pain #84 tabs 12/11/24 oxycodone 10 mg tablet 10 mg PO Q8H PRN pain #84 tabs 12/11/24 lidocaine 5 % topical patch 1 patch topical DAILY #15 ea 01/07/25 (Lidoderm) methocarbamol 750 mg tablet 750 mg PO TID #20 tabs 01/07/25 Allergies Allergy/AdvReac Type Severity Reaction Status Date / Time No Known Allergies Allergy Verified 01/07/25 20:03 General Stated Complaint: Chest Pain AYE: 3 Exam Narrative Exam Narrative: Review of Systems: All systems reviewed & are unremarkable except as noted in HPI and below Well-developed, no acute distress NCAT PERRL, normal conjunctiva RRR, no murmur, no chest wall tenderness, port noted in left anterior chest Unlabored respiratory effort, CTAB Nondistended abdomen , soft, nt Extremities w/o edema left parascapular and paraspinal muscle spasm and tenderness to palpation Course Vital Signs Vital signs: Vital Signs Temperature 36.4 C 01/07/25 19:57 Pulse 91 H 01/07/25 19:57 Respiratory Rate 16 01/07/25 19:57 Blood Pressure 141/81 H 01/07/25 19:57 Pulse Oximetry 99 01/07/25 19:57 Temperature 36.4 C 01/07/25 19:57 Pulse 91 H 01/07/25 19:57 Respiratory Rate 16 01/07/25 19:57 Respiratory Effort Normal 01/07/25 20:05 Respiratory Depth Normal 01/07/25 20:05 Respiratory Pattern Normal 01/07/25 20:05 Blood Pressure 141/81 H 01/07/25 19:57 Pulse Oximetry 99 01/07/25 19:57 Pain Level 6 01/07/25 19:57 Lab/Test Results Lab/Test Results: Laboratory Tests Range/Units 01/07/25 01/07/25 20:30 21:31 WBC (4.4-10.8) 10^3/uL 7.37 RBC (3.93-5.22) 10^6/uL 4.57 Hgb (11.2-15.7) g/dL 13.0 Hct (36.0-46.0) % 40.7 MCV (80-95) fL 89 MCH (27.0-33.0) pg 28.4 MCHC (32.0-36.0) % 31.9 L RDW (11.7-14.6) % 17.0 H Plt Count (130-400) 10^3/uL 468 H MPV (8.0-11.0) fL 11.0 Immature Gran % % 0.1 Neutrophils % % 31.5 Lymphocytes % % 57.3 Monocytes % % 10.4 Eosinophils % % 0.0 Basophils % % 0.7 Nucleated RBC % (0.0-0.3) % 0.0 Absolute Neutrophils (1.2-6.7) 10^3/uL 2.32 Absolute Lymphocytes (1.2-3.4) 10^3/uL 4.22 H Absolute Monocytes (0.1-0.8) 10^3/uL 0.77 Absolute Eosinophils (0.0-0.7) 10^3/uL 0.00 Absolute Basophils (0.0-0.2) 10^3/uL 0.05 Sodium (136-145) mmol/L 137 Potassium (3.5-5.1) mmol/L 3.6 Chloride (98-107) mmol/L 100 Carbon Dioxide (21.0-32.0) mmol/L 28.9 Anion Gap (3-11) mmol/L 8.1 BUN (7-18) mg/dL 22 H Creatinine (0.55-1.02) mg/dL 1.7 H Est GFR (CKD-EPI 2020) (mL/min/1.73m2) 33.91 Glucose (74-106) mg/dL 114 H Calcium (8.5-10.1) mg/dL 10.2 H Total Bilirubin (0.2-1.0) mg/dL 0.5 AST (15-37) U/L 37 ALT (14-59) U/L 53 Alkaline Phosphatase (46-116) U/L 823 H Troponin I (<or=51) ng/L 135 H* 135 H* NT-Pro-B Natriuret Pep (<300) pg/mL 1921 H Total Protein (6.4-8.2) g/dL 8.6 H Albumin (3.4-5.0) g/dL 3.5 Medical Decision Making Emergent evaluation of back pain. Initial differential includes musculoskeletal pain, ACS, pulmonary embolism. Patient does have history of cancer however she is not anticoagulated. She is not having any tachypnea or shortness of breath or pleuritic type pain that would indicate a pulmonary embolism. The patient has not endorsed any new activities that might lead to a muscle strain however she is particularly tender muscle spasm is appreciated on examination. She has no sick symptoms to indicate viral illness, myositis or rhabdo as these muscle symptoms are fairly isolated in her back. Her EKG is abnormal. Left bundle branch block without Sgarbossa criteria and no significant change from prior. The patient has lab work obtained. No leukocytosis or anemia. Her creatinine is 1.7 which is about her baseline. Her BNP is 1900 which is lower than she has had previously and she does not have any signs or symptoms consistent with volume overload on examination. Her troponin is noted to be elevated at 135 but is flat on repeat examination. I suspect that this is chronic troponinemia given the lack of chest pain and EKG changes. A CTA was obtained to evaluate for possible pulmonary embolism given her history of malignancy pain in her back. This examination was negative for any acute aortic pathology or pulmonary embolism. The radiologist's reading has bilateral infiltrates consistent with pneumonia. Over this seems less likely as the patient has no respiratory symptoms. I ordered a chest x-ray to further characterize these lesions again radiologist read as bilateral infiltrates. I compared the x-ray to prior x-ray and I do not see a fairly significant difference in these x-rays. Prior x-ray was read as normal. As the patient does not have any cough or shortness of breath, I doubt that these areas are consistent with an infectious infiltrate. Discussed the findings with the patient and she again states that she has no concerns for difficulty breathing or cough. She does not feel like she has pneumonia. He was given some pain medication which did improve her symptoms. At this time she would like to go home and follow-up discharge is stable plan for her. I am recommending close follow-up with her primary care provider for reevaluation of symptoms monitoring to make sure that there are no other significant abnormalities that develop. Patient will be discharged with some muscle medication and strict return precautions. Quality:SDOH Health Related Social Needs: No Data to Display PFSH All Active Problems (Updated 01/07/25 @ 23:22 by Myke Grover MD) Back pain (Acute) Contact dermatitis due to radiation (Acute) Multiple lung nodules on CT (Acute) Sciatica of right side (Acute) Sciatica (Acute) Weakness (Acute) Poor appetite (Acute) Carcinoma of upper-outer quadrant of left breast in female, estrogen receptor negative (Acute) Encounter for incision and drainage procedure (Acute) 08/05/2024 [facility] [place] of L breast lumpectomy Jaundice (Acute) Elevated liver enzymes (Acute) Nonrheumatic aortic (valve) stenosis (Acute) Cardiomyopathy, ischemic (Acute) Arteriosclerotic cardiovascular disease (ASCVD) (Acute) Infusion reaction (Acute) Triple negative breast cancer (Acute 02/10/24) UTI due to Klebsiella species (Acute) Macrocytic anemia (Acute) Hyperglycemia, drug-induced (Acute) Non-ST elevation UT (NSTEMI) (Acute) COPD exacerbation (Acute) CHF exacerbation (Acute) Bipolar II disorder (Chronic) Cancer related pain (Chronic) Paroxysmal atrial fibrillation (Chronic) Malignant neoplasm of upper-outer quadrant of left breast in female, estrogen receptor negative (Chronic 02/10/24) [facility] [place] (Dr Lyn oncology on 02/28/[address] Fulton (surgical oncology) on 03/14/2024 Difficulty coping (Acute 03/13/24) 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; managed by [facility] [place] 11/28/24 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 terminal current use of antipsychotic medication (Acute) Nocturnal hypoxia (Acute) Family history of breast cancer in first degree relative (Chronic) Sister Family history of coronary artery disease in brother (Acute) Ex-smoker for more than 1 year (Acute) Iron deficiency (Acute) Gout (Chronic) 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 (Acute) Other cervical disc displacement at C5-C6 level (Acute) Cervicalgia (Acute) residential (current) use of opiate analgesic (Chronic) Medical History (Updated 01/07/25 @ 23:22 by Myke Grover MD) S/P radiation therapy Breast hematoma GERD (gastroesophageal reflux disease) Hypothyroidism Peripheral arterial disease Coronary artery disease Chronic kidney disease, stage 4 (severe) Essential (primary) hypertension Bipolar 1 disorder Hodgkin disease Surgical History (Updated 08/07/24 @ 13:43 by Lianne Mason) History of partial mastectomy of left breast Done 07/30/2024 at [facility] [place] H/O endoscopy [facility] [place] Upper EUS-indication: elevated Liver enzymes. Findings: no gross lesions in esophagus, stomach or duodenum. Endosonographic finding: no abnormality in the common bile duct, pancreatic head, pancreatic body, tail or main pancreatic duct. no specimens collected. S/P breast biopsy, left (03/26/24) [facility] [place] Coronary angioplasty status 11/28/2023 Proximal RCA,LAD LCX lesions at [facility] [place] History of coronary artery stent placement 11/28/2023 Stent placement ostial RCA and 12/02/2023 Stent placement Distal LM at [facility] [place] S/P TAVR (transcatheter aortic valve replacement) Social History Smoking/Tobacco Use Status: Former Tobacco Use tobacco type: cigarettes Tobacco: How many years used: 30 Smoking risk assessment performed?: Yes Alcohol Intake: never Drug use: Never Substance use type: does not use Adopted: No Caregiver/Support person: No Foster care: No Housing: apartment Number of Children: 2 number of grandchildren: 8 Communication Needs: None Education Level: middle school current occupation: Disabled Pets and animals: No Sexually active: No Current gender identity: female What is your relationship status?: How often do you talk on the phone with friends or family?: three or more times per week How often do you get together with friends or relatives?: once per week Do you belong to any clubs or organized social groups?: no Panel score (0-1 are the most socially isolated patients): 1 What type of physical activity do you participate in: walking Duration: 15-30 minutes/day Frequency: 3-4 times per week Josefa/Congregation: [employer] Special josefa needs: No Seatbelt use: always Helmet use: No (Sometimes - Never) Drive intox or ride w/intox motor bus driver: No Do you feel safe at home: Yes Do you feel safe in your relationship?: Yes
[2025-01-07] MEDS: Acetaminophen 500 MG TAB 1000 MG PO (23:24)
[2025-01-07] MEDS: MORPHine IR 15 MG TAB PO (23:24)
[2025-01-07] MEDS: Lidocaine 5% Patch 1 PATCH TP (23:24)
== END 2025-01-08 00:04 | disposition home or self-care (01) ==
PROVIDERS: Emergency Provider Emergency Medicine; PCP Family Medicine
DX: M54.50 Low back pain, unspecified (principal); I44.7 Left bundle-branch block, unspecified; I25.10 Atherosclerotic heart disease of native coronary artery without angina pectoris; I25.2 Old myocardial infarction; E03.9 Hypothyroidism, unspecified; N18.4 Chronic kidney disease, stage 4 (severe); Z95.5 Presence of coronary angioplasty implant and graft; Z79.01 Long term (current) use of anticoagulants
CPT/HCPCS: 36415; 71275; 80053; 93005; 99285; 71046; 83880; 84484; 85025; 93010; 99284; J3490

== ENCOUNTER 2025-02-18 02:52 | Outpatient (CLI) | payer MEDICARE, MEDICAID, SELFPAY ==
--- NOTE | 2025-02-18 | DI.CT_ITS ---
Exam(s) CT CHEST W EXAM: CT CHEST W CLINICAL HISTORY: Multiple 5-[address], R91.8; s/p XRT for L breast CA; XRT for TECHNIQUE: Imaging Protocol: Axial computed tomography images with coronal and sagittal reformatted images were created and reviewed. Computer aided detection (CAD) was utilized. CONTRAST MATERIAL: Intravenous: Omnipaque 350Contrast volume:70 mL. COMPARISON: CT CT CHEST PE CTA from 01/07/2025 FINDINGS: The examination is limited due to patient motion artifact. Tracheobronchial tree: Patent where visualized. No evidence of bronchiectasis. Pulmonary parenchyma: There has been an increase in the nodular opacities in the right lung base sinc e the prior examination. The opacities in the right upper and right middle lobe appears stable. The re has been increased consolidation in the anterior aspect of the left upper lobe. Persistent opacit ies are seen in the left lower lobe. There are new areas of nodularity in the left lung. For instan ce, there is a new 8 mm nodule in the left lung base medially (series 8, image 123.). There is a new pleural opacity in the superior segment of the left lower lobe. Mediastinum and Freida: No dominant adenopathy or fluid collection. The esophagus is unremarkable. Thyroid gland: The thyroid gland is again shown to be heterogeneous with multiple nodules. There is a peripherally enhancing nodule in the right lung base measuring 1.1 cm. Nonemergent thyroid ultraso und should be considered for further evaluation. Pleura: No effusion or pneumothorax. Heart: The heart is not dilated. Coronary artery calcifications are present. Aortic valve prosthesis is again seen. No pericardial effusion. Aorta: Thoracic aorta non-dilated. Atherosclerotic calcification is present. Pulmonary arteries: Due to the timing of the bolus, peripheral pulmonary artery evaluation is limited . No large central pulmonary embolism is present. Upper abdomen: Status post cholecystectomy. The spleen is absent. Lymph nodes: Within normal limits. Bones: Within normal limits for the patient's age. No aggressive osseous lesions are seen. Tubes, Catheters, and Lines: There is a right chest port in place. Soft tissues: There is thickening of the skin overlying the left breast with edema in the subcutaneou s soft tissues likely reflecting the patient's radiation therapy. IMPRESSION: 1. Interval progression of the pulmonary opacities since the prior examination. Increased consolidat ion in the anterior aspect of the left upper lobe which may be secondary to the patient's radiation t herapy. 2. New areas of nodularity are seen in the lung bases particularly on the left. There is a new 8 mm nodule in the left lower lobe. This may reflect worsening metastatic disease. 3. Skin changes of the left breast likely reflecting the patient's radiation therapy. 4. Thyroid nodules. Nonemergent thyroid ultrasound should be considered for further evaluation. RADIATION DOSE DELIVERED: 210.96mGy.cm Total DLP DATA REPOSITORY: All CT scans at this facility are submitted to the National Radiology Data Registry (NRDR) Dose Index Registry (DIR) with the [employer] (A[employer]). RADIATION OPTIMIZATION: All CT scans at this facility use at least one of these dose optimization te chniques: automated exposure control; mA and/or kV adjustment per patient size (includes targeted exa ms where dose is matched to clinical indication); or iterative reconstruction.
[2025-02-18] MEDS: Normal Saline - Diluent 50 ML VIAL IJ (09:30)
[2025-02-18] MEDS: Omnipaque 350 MG/ML 100 ML BTL IJ (09:31)
== END 2025-02-18 03:12 ==
LOC: DI 02:52
PROVIDERS: PCP Family Medicine; Visit Provider Radiology Radiation Oncology
DX: R91.8 Other nonspecific abnormal finding of lung field (principal); E04.2 Nontoxic multinodular goiter
CPT/HCPCS: 36591; 71260; 82565; J3490

== ENCOUNTER 2025-02-18 03:23 | Outpatient (RCR) | payer MEDICARE, MEDICAID, SELFPAY ==
[2025-02-18] MEDS: Normal Saline Flush 10 ML SYR IVP (08:55)
[2025-02-18 09:08] LABS: CREATININE 1.2 mg/dL (0.55-1.02)
== END 2025-03-18 23:59 | disposition home or self-care (01) ==
LOC: INF 03:23
PROVIDERS: PCP Family Medicine; Visit Provider Radiology Radiation Oncology
DX: R91.8 Other nonspecific abnormal finding of lung field (principal); Z45.2 Encounter for adjustment and management of vascular access device
CPT/HCPCS: 36591; 82565

== ENCOUNTER 2025-04-30 14:21 | Outpatient (CLI) | payer MEDICARE, MEDICAID, SELFPAY ==
[2025-04-30 15:17] LABS: Anion Gap 8.2 mmol/L (3-11); BUN 23 mg/dL (7-18); CO2 25.8 mmol/L (21.0-32.0); Calcium 9.3 mg/dL (8.5-10.1); Chloride 105 mmol/L (98-107); Estimated GFR 39.40 (mL/min/1.73m2); Glucose 118 mg/dL (74-106); Potassium 4.3 mmol/L (3.5-5.1); Sodium 139 mmol/L (136-145)
[2025-04-30 15:22] LABS: C-Reactive Protein < 0.50 mg/dL (<or=0.5)
[2025-05-01 11:28] LABS: Lyme Ab w Rflx to Lyme Confirm Negative (Negative)
[2025-05-02 22:04] LABS: B. miyamotoi PCR Negative (Negative); Babesia divergens/MO-1 Negative (Negative); Ehrlichia muris eauclairensis Negative (Negative)
== END 2025-04-30 14:22 | disposition home or self-care (01) ==
LOC: LBO 14:21
PROVIDERS: PCP Family Medicine; Visit Provider Family Medicine
DX: M13.0 Polyarthritis, unspecified (principal); E87.6 Hypokalemia
CPT/HCPCS: 36415; 80048; 87798; 86140; 86618